=== PATIENT | female | born 1950 | race Caucasian/White ===

== ENCOUNTER 2017-07-18 17:08 | Emergency (ER) | payer OTHER ==
[~2017-07-18] VITALS: Ht 154.9 cm; Wt 105.4 kg
[~2017-07-18 17:08] MED LIST: ACET-1138 PO; ALBUAER19 INH; ATOR-22 PO; BIOT1TAB5 PO; CALC-20 PO; CARB25TA12 PO; CHOLCAP5 PO; CLB100 PEG; CYAN10002 IM; DICL1GEL12 TOP; DOCU100C31 PO; FERR325T51 PO; FURO-85 PO; IPRA0.037 NAE; LEVO50TA PO; META-38 PO; METO25TA56 PO; MULT-360; MULTCAP33 PO; POTA10TA30 PO; PRLSR20 PO; ROPI0.5T15 PO; VENL75CA PEG
[2017-07-18 17:13] VITALS: TEMP 36.6; Ht 154.9 cm; Wt 105.4 kg
[2017-07-18] MEDS ORDERED: FUROSEMIDE 40 MG/4 ML VIAL IV STA (18:02)
[2017-07-18] MEDS ORDERED: OXYCODONE/ACETAMINOPHEN 5-325 TAB PO ONE (18:15)
--- NOTE | 2017-07-18 18:23 | DIAGNOSTIC IMAGING REPORT ---
CHEST ONE VIEW PORTABLE CLINICAL HISTORY: Evaluate Fever/Sepsis COMPARISON STUDY: 12/01/2014 FINDINGS: Mild stable cardiomegaly. Diaphragms smooth. Lungs are clear. IMPRESSION: No acute process. Mild stable cardiomegaly. The above report was generated using voice recognition software. It may contain grammatical, syntax or spelling errors. Electronically signed by: Checo Brock M.D. 07/18/2017 6:22 PM Dictated Date/Time: 07/18/2017 6:21 PM
[2017-07-18 18:32] VITALS: O2SAT 96
[2017-07-18 18:38] LABS: BASO % 0.8 %; BASO ABS # 0.05 K/uL (0-0.2); EOS % 2.5 %; EOS ABS # 0.15 K/uL (0-0.5); HEMATOCRIT 42.6 % (37-47); HEMOGLOBIN 13.6 g/dL (12.0-16.0); IG# 0.02 K/uL (0.00-0.02); LYMPH % 28.7 %; LYMPH ABS # 1.72 K/uL (1.2-3.4); MEAN CELL VOLUME 98.8 fL (80-100); MEAN CORPUSCULAR HEMOGLOBIN 31.6 pg (25-34); MEAN CORPUSCULAR HGB CONC 31.9 g/dl (32-36); MEAN PLATELET VOLUME 10.2 fL (7.4-10.4); MONO % 11.8 %; MONO ABS # 0.71 K/uL (0.11-0.59); NEUT % 55.9 %; NEUT ABS # 3.35 K/uL (1.4-6.5); PLATELET COUNT 265 K/uL (130-400); RED CELL DISTRIBUTION WIDTH CV 13.7 % (11.5-14.5); RED CELL DISTRIBUTION WIDTH SD 49.3 fL (36.4-46.3)
[2017-07-18 18:57] LABS: ALBUMIN 3.6 gm/dl (3.4-5.0); ALT/SGPT 17 U/L (12-78); AST/SGOT 15 U/L (15-37); BLOOD UREA NITROGEN 21 mg/dl (7-18); CARBON DIOXIDE 24 mmol/L (21-32); CREATININE 0.78 mg/dl (0.60-1.20); GLUCOSE 90 mg/dl (70-99); LIPASE 178 U/L (73-393); SODIUM 140 mmol/L (136-145)
[2017-07-18 19:02] LABS: ALKALINE PHOSPHATASE 112 U/L (45-117); CKMB 2.2 ng/ml (0.5-3.6); TOTAL PROTEIN 7.2 gm/dl (6.4-8.2)
[2017-07-18] MEDS ORDERED: CHOL20009 PO (19:20)
[2017-07-18] MEDS ORDERED: PEDICHW50 PO (19:20)
[2017-07-18] MEDS ORDERED: MULTCAP33 PO (19:20)
[2017-07-18] MEDS ORDERED: TRMCR130WC TOP (19:20)
[2017-07-18] MEDS ORDERED: OMEG10007 PO (19:20)
[2017-07-18] MEDS ORDERED: MAGN500T4 PO (19:20)
[2017-07-18] MEDS ORDERED: IPRA0.03 NAE (19:20)
[2017-07-18] MEDS ORDERED: OYST500T47 PO (19:20)
[2017-07-18] MEDS ORDERED: IBAN150T PO (19:20)
[2017-07-18] MEDS ORDERED: DICL1GEL12 TOP (19:20)
[2017-07-18] MEDS ORDERED: FLUT0.15 INH (19:20)
[2017-07-18] MEDS ORDERED: SENN-65 PO (19:20)
[2017-07-18] MEDS ORDERED: CYAN100048 PO (19:20)
[2017-07-18] MEDS ORDERED: ERGO500037 PO (19:20)
[2017-07-18 20:13] VITALS: BP 129/80; PULSE 81; O2SAT 98
--- NOTE | 2017-07-18 20:26 | EMERGENCY ROOM VISIT NOTE ---
History Report prepared by Sathya: Hernan Oates Under the Supervision of: Miladys WaltersO. First contact with patient: 17:54 Chief Complaint: CARDIAC ASSESSMENT Stated Complaint: SOB, TIGHTNESS IN CHEST, SWELLING IN LEGS, CARD HX Nursing Triage Summary: LE swelling , chest pain and fatigue History of Present Illness The patient is a 67 year old female with a history of a thoracic aortic aneurysm who presents to the Emergency Room with complaints of worsening chest tightness on exertion that started around a couple months ago. She states that she has been excessively fatigued, and she has been getting short of breath on exertion. She notes that she has been getting intermittent right arm pain. The patient adds that she started with bilateral feet swelling, but the swelling is slowly moving up to the rest of both of her legs. She says that she has not been able to do much recently because of her exertional symptoms. She states that she has no history of chronic kidney issues. Source of History: patient Onset: Last few months Position: chest Quality: other (tightness) Timing: worsening Modifying Factors (Worsening): exertion Associated Symptoms: + SOB, + fatigue Note: Associated symptoms: Worsening fatigue, lower extremity swelling. Right arm pain. Review of Systems See HPI for pertinent positives & negatives. A total of 10 systems reviewed and were otherwise negative. Past Medical & Surgical Medical Problems: (1) Cholecystectomy (2) Gastric Bypass (3) Hypertension Nos (4) Obesity (5) Pancreatitis (6) Thoraco abdominal aneurysm Surgical Problems: (1) S/P hysterectomy Family History CVA Cancer Diabetes mellitus Heart disease Hypertension Kidney disease Kidney stones Lung disease TIAs GRANDMOTHER MOTHER Social History Smoking Status: Never Smoker Alcohol Use: occasionally Marital Status: single Housing Status: lives alone Occupation Status: employed Current/Historical Medications Scheduled Albuterol Inhaler (Ventolin Inhaler), 2 PUFFS INH TID Atorvastatin (Lipitor), 20 MG PO DAILY Biotin (Biotin), 500 MCG PO BID Carbidopa/Levodopa (Sinemet 25MG/100MG), 1 TAB PO QID Cholecalciferol (Vitamin D), 2,000 UNITS PO DAILY Cyanocobalamin (Vitamin B-12), 1,000 MCG PO MONTHLY Diclofenac Sodium (Topical) (Voltaren 1% Top Gel), 1 APPLN TOP QID Ergocalciferol (Vitamin D 72744 Unit), 1 CAP PO WK Fish Oil ([place]-3), 1 CAP PO BID Fluticasone Propionate (Nasal) (Flonase Allergy Relief), 2 PUFF INH BID Home O2 Therapy (Oxygen), 2 LITERS NA UD Ibandronate Sodium (Boniva), 150 MG PO MONTHLY Levothyroxine Sodium (Synthroid), 50 MCG PO QAM Magnesium Oxide (Mg Supplement (Magnesium), 500 MG PO DAILY Metaxalone (Skelaxin), 800 MG PO QID Metoprolol Tartrate (Lopressor) (Lopressor), 25 MG PO BID Multiple Vitamins W/ Minerals (Preservision Areds), 1 CAP PO BID Omeprazole (Prilosec), 20 MG PO DAILY Oyster Shell (Calcium), 500 MG PO BID Pediatric Multiple Vitamin W/ (Flintstones Chewable), 1 TAB PO QAM Ropinirole (Requip), 0.5 MG PO TID Ropinirole (Requip), 0.5-2 MG PO HS Senna/Docusate Sod (Senokot S), 1 TAB PO BID Triamcinolone Acet (Aristocort 0.1%), 1 APPLN TOP BID Scheduled PRN Ipratropium [place] (Nasal) (Ipratropium [place]), 1 SPRAY ELYSE QID PRN for Nasal Congestion Ondansetron Hcl (Zofran), 4 MG PO Q6H PRN for Nausea Allergies Coded Allergies: Buspirone (Verified Allergy, Severe, NEURO COMPLICATIONS, 07/18/17) Lisinopril (Verified Allergy, Intermediate, cough, 01/22/16) Ammonia (Verified Allergy, Unknown, SWELLING, 01/22/16) Duloxetine (Verified Allergy, Unknown, RASH ITCHING, 01/22/16) Dust (Verified Allergy, Unknown, ROACHES,DUST MITES-CLOGGED UP SINUSES-CAN 'T BREATHE, 01/22/16) NSAIDs (Verified Allergy, Unknown, not supposed to use-S/P GASTRIC BYPASS , 01/22/16) Venlafaxine (Verified Allergy, Unknown, AFFECTS LEGS, 07/18/17) Diphenhydramine (Verified Adverse Reaction, Unknown, RESTLESS LEGS, ) Physical Exam Vital Signs Date Time Temp Pulse Resp B/P (MAP) Pulse Ox O2 Delivery O2 Flow Rate FiO2 07/18/17 20:13 81 16 129/80 98 Room Air 07/18/17 18:36 65 16 144/107 100 Room Air 07/18/17 18:32 96 Room Air 07/18/17 18:32 96 Room Air 07/18/17 18:30 63 07/18/17 17:15 Room Air 07/18/17 17:13 36.6 71 16 167/74 96 Room Air Physical Exam CONSTITUTIONAL/VITAL SIGNS: Reviewed / noted above. GENERAL: Non-toxic in appearance. INTEGUMENTARY: Warm, dry, and [place]. HEAD: Normocephalic. EYES: without scleral icterus or trauma. ENT/OROPHARYNX: clear and moist. LYMPHADENOPATHY/NECK: Is supple without lymphadenopathy or meningismus. RESPIRATORY: Lungs clear and equal. CARDIOVASCULAR: Regular rate and rhythm. GI/ABDOMEN: Soft and nontender. No organomegaly or pulsatile mass. No rebound or guarding. Normal bowel sounds. EXTREMITIES: Bilateral lower extremity edema. BACK: No CVA tenderness. NEUROLOGICAL: Intact without focal deficits. PSYCHIATRIC: normal affect. MUSCULOSKELETAL: Normally developed with good muscle tone. Medical Decision & Procedures ER Provider Diagnostic Interpretation: X ray results and stated below per my interpretation and radiology interpretation. CHEST ONE VIEW PORTABLE CLINICAL HISTORY: Evaluate Fever/Sepsis COMPARISON STUDY: 12/01/2014 FINDINGS: Mild stable cardiomegaly. Diaphragms smooth. Lungs are clear. IMPRESSION: No acute process. Mild stable cardiomegaly. The above report was generated using voice recognition software. It may contain grammatical, syntax or spelling errors. Electronically signed by: Checo Brock M.D. 07/18/2017 6:22 PM Dictated Date/Time: 07/18/2017 6:21 PM Laboratory Results 07/18/17 18:30 Red Blood Count 4.31, Mean Corpuscular Volume 98.8, Mean Corpuscular Hemoglobin 31.6, Mean Corpuscular Hemoglobin Concent 31.9, Mean Platelet Volume 10.2, Neutrophils (%) (Auto) 55.9, Lymphocytes (%) (Auto) 28.7, Monocytes (%) (Auto) 11.8, Eosinophils (%) (Auto) 2.5, Basophils (%) (Auto) 0.8, Neutrophils # (Auto ) 3.35, Lymphocytes # (Auto) 1.72, Monocytes # (Auto) 0.71, Eosinophils # (Auto ) 0.15, Basophils # (Auto) 0.05 07/18/17 18:30 Test 07/18/17 18:30 White Blood Count 6.00 K/uL (4.8-10.8) Red Blood Count 4.31 M/uL (4.2-5.4) Hemoglobin 13.6 g/dL (12.0-16.0) Hematocrit 42.6 % (37-47) Mean Corpuscular Volume 98.8 fL (80-100) Mean Corpuscular Hemoglobin 31.6 pg (25-34) Mean Corpuscular Hemoglobin Concent 31.9 g/dl (32-36) Platelet Count 265 K/uL (130-400) Mean Platelet Volume 10.2 fL (7.4-10.4) Neutrophils (%) (Auto) 55.9 % Lymphocytes (%) (Auto) 28.7 % Monocytes (%) (Auto) 11.8 % Eosinophils (%) (Auto) 2.5 % Basophils (%) (Auto) 0.8 % Neutrophils # (Auto) 3.35 K/uL (1.4-6.5) Lymphocytes # (Auto) 1.72 K/uL (1.2-3.4) Monocytes # (Auto) 0.71 K/uL (0.11-0.59) Eosinophils # (Auto) 0.15 K/uL (0-0.5) Basophils # (Auto) 0.05 K/uL (0-0.2) RDW Standard Deviation 49.3 fL (36.4-46.3) RDW Coefficient of Variation 13.7 % (11.5-14.5) Immature Granulocyte % (Auto) 0.3 % Immature Granulocyte # (Auto) 0.02 K/uL (0.00-0.02) Anion Gap 5.0 mmol/L (3-11) Est Creatinine Clear Calc Drug Dose 78.2 ml/min Estimated GFR () 91.2 Estimated GFR (Non- 78.7 BUN/Creatinine Ratio 27.3 (10-20) Calcium Level 9.0 mg/dl (8.5-10.1) Total Bilirubin 0.2 mg/dl (0.2-1) Direct Bilirubin < 0.1 mg/dl (0-0.2) Aspartate Amino Transf (AST/SGOT) 15 U/L (15-37) Alanine Aminotransferase (ALT/SGPT) 17 U/L (12-78) Alkaline Phosphatase 112 U/L (45-117) Total Creatine Kinase 74 U/L (26-192) Creatine Kinase MB 2.2 ng/ml (0.5-3.6) Creatine Kinase MB Ratio 3.0 (0-3.0) Troponin I < 0.015 ng/ml (0-0.045) Total Protein 7.2 gm/dl (6.4-8.2) Albumin 3.6 gm/dl (3.4-5.0) Lipase 178 U/L (73-393) Laboratory results as stated above per my review. Medications Administered Medications (Trade) Dose Ordered Sig/Caesar Route Start Time Stop Time Status Last Admin Dose Admin Furosemide (Lasix Inj) 40 mg NOW STAT IV 07/18/17 18:02 07/18/17 18:03 DC 07/18/17 18:02 40 MG Oxycodone/ Acetaminophen (Percocet 5-325mg Tab) 1 tab NOW ONCE PO 07/18/17 18:15 07/18/17 18:17 DC 07/18/17 18:15 1 TAB ECG Indication: SOB/dyspnea Rate (beats per minute): 67 Rhythm: normal sinus Findings: no ectopy, other (no acute injury) ED Course 1755: Previous medical records were reviewed. The patient was evaluated in room C1B. A complete history and physical examination was performed. 1801: Ordered Lasix Inj 40 mg IV. 1814: Ordered Percocet 5-325mg Tab 1 tab PO. 2026: On reevaluation, the patient is resting comfortably. I discussed the results and findings with the patient. She verbalized agreement of the treatment plan. She was discharged home. Medical Decision The differential considered includes acute myocardial infarction, acute coronary syndrome, myocarditis, pericarditis, pericardial effusions /tamponad, esophageal perforation, thoracic aortic dissection, pulmonary embolism, pneumonia, pneumothorax, pancreatitis, shingles, acute cholecystitis, perforated abdominal viscus. This is a 67-year-old female who presents to the ED with a chief complaint of excessive tiredness over the past several months. She has also had some increased leg swelling. Her doctor took her off of Lasix as it was not felt to be necessary. The patient has chronic lower extremity edema. She has been using MABLE hose but her swelling increases throughout the day and these are somewhat painful. The patient reports some shortness of breath with exertion. Denies any chest pains. She also reports some occasional pains in her arms. Her initial blood pressure was elevated. This improved. EKG shows a normal sinus rhythm. CBC and complete metabolic panel normal, BUN is 21 and a troponin was negative. The patient was treated with IV Lasix. She diuresed modestly. She was feeling better. She was felt to be stable for discharge and outpatient follow-up. Medication Reconcilliation Current Medication List: was personally reviewed by me Blood Pressure Screening Patient's blood pressure: Elevated blood pressure Blood pressure disposition: Elevated BP felt to be situational Impression Primary Impression: Lower extremity edema Additional Impression: Fatigue Scribe Attestation The scribe's documentation has been prepared under my direction and personally reviewed by me in its entirety. I confirm that the note above accurately reflects all work, treatment, procedures, and medical decision making performed by me. Departure Information Dispostion Home / Self-Care Referrals No Doctor, Assigned (PCP) Patient Instructions ED Leg Swelling Bilateral, My [facility] Additional Instructions Follow-up with your doctor for further care and evaluation in 1-2 days. Return to the emergency department for worsening or new symptoms or any concerns. You have been examined and treated today on an emergency basis only. This is not a substitute for, or an effort to provide, complete comprehensive medical care. It is impossible to recognize and treat all injuries or illnesses in a single emergency department visit. It is therefore important that you follow up closely with your doctor. Call as soon as possible for an appointment. Problem Qualifiers
[2017-07-18] MEDS ORDERED: ONDA4TAB65 PO (20:32)
[2017-07-18] MEDS ORDERED: OXGN (20:36)
== END 2017-07-18 20:29 | disposition home or self-care (01) ==
LOC: C.EDB 17:10 → C.EDC 20:29
DX: R60.0 Localized edema (principal); R53.83 Other fatigue; Z90.49 Acquired absence of other specified parts of digestive tract; Z98.84 Bariatric surgery status; I10 Essential (primary) hypertension; E66.9 Obesity, unspecified; Z90.710 Acquired absence of both cervix and uterus; Z68.41 Body mass index [BMI] 40.0-44.9, adult; Z82.3 Family history of stroke; Z80.9 Family history of malignant neoplasm, unspecified; Z83.3 Family history of diabetes mellitus; Z82.49 Family history of ischemic heart disease and other diseases of the circulatory system; Z84.1 Family history of disorders of kidney and ureter; Z79.899 Other long term (current) drug therapy

== ENCOUNTER 2017-07-29 16:16 | Inpatient (IN) | payer OTHER ==
[~2017-07-29] VITALS: Ht 154.9 cm; Wt 101.8 kg
[~2017-07-29 16:16] MED LIST changes: -ACET-1138 PO; -CALC-20 PO; +CHOL20009 PO; -CHOLCAP5 PO; -CLB100 PEG; -CYAN10002 IM; +CYAN100048 PO; -DOCU100C31 PO; +ERGO500037 PO; -FERR325T51 PO; +FLUT0.15 INH; -FURO-85 PO; +IBAN150T PO; +IPRA0.03 NAE; -IPRA0.037 NAE; +MAGN500T4 PO; -MULT-360; +OMEG10007 PO; +ONDA4TAB65 PO; +OXGN; +OYST500T47 PO; +PEDICHW50 PO; -POTA10TA30 PO; +SENN-65 PO; +TRMCR130WC TOP; -VENL75CA PEG
--- NOTE | 2017-07-29 16:45 | EMERGENCY ROOM VISIT NOTE ---
History Report prepared by Sathya: Temitope Simons Under the Supervision of: Dr. Anahi Gonzalez D.O. First contact with patient: 16:26 Chief Complaint: CARDIAC ASSESSMENT Stated Complaint: TIGHTNESS IN CHEST History of Present Illness The patient is a 67 year old female who presents to the Emergency Room with complaints of intermittent chest tightness beginning this morning. She states her chest tightness would last for about 45 minutes at a time. She states she was reorganizing her book shelf when her pain began. As she continued to reorganize her book shelf, she also started to get fatigued and short of breath. The patient states her finger tips started to get numb and spasm and her right arm started to ache. Presently, the patient only is having right arm aching. The patient states she went to see Dr. Arredondo-Cardiology last week because she had chest tightness. She states he told her aneurysm may require surgery soon. She states every 4 [address] a CT scan for her aneurysm. She reports Dr. Arredondo told her she may have a blockage. She states she was told to come to the ED if her pain worsened. She states she was diagnosed with diastolic dysfunction last time she saw Dr. Arredondo. The patient had a nuclear stress test and a CT two days ago. She is unsure of the results of the stress test and her CT. She denies any recent medication changes. The patient denies any history of heart attack or stents. The patient is on Lasix 40 mg twice a day. Pt denies headache, change in vision, fevers, increased leg swelling, nausea, vomiting, diarrhea, pain with urination, and melena. Source of History: patient Onset: this morning Position: chest Quality: other (tightness) Timing: intermittent Associated Symptoms: + chest pain, + SOB, + fatigue, + numbness, No fevers, No chills, No headache, No nausea, No vomiting, No urinary symptoms Review of Systems See HPI for pertinent positives & negatives. A total of 10 systems reviewed and were otherwise negative. Past Medical & Surgical Medical Problems: (1) Cholecystectomy (2) ISAC (generalized anxiety disorder) (3) Gastric Bypass (4) Hypertension Nos (5) Obesity (6) Pancreatitis (7) Right shoulder pain (8) Thoraco abdominal aneurysm Surgical Problems: (1) S/P hysterectomy Family History CVA Cancer Diabetes mellitus Heart disease Hypertension Kidney disease Kidney stones Lung disease TIAs GRANDMOTHER MOTHER Social History Smoking Status: Never Smoker Alcohol Use: occasionally Marital Status: single Housing Status: lives alone Occupation Status: employed Current/Historical Medications Scheduled Albuterol Inhaler (Ventolin Inhaler), 2 PUFFS INH TID Atorvastatin (Lipitor), 20 MG PO DAILY Biotin (Biotin), 500 MCG PO BID Carbidopa/Levodopa (Sinemet 25MG/100MG), 1 TAB PO QID Cholecalciferol (Vitamin D), 2,000 UNITS PO DAILY Cyanocobalamin (Vitamin B-12), 1,000 MCG PO MONTHLY Diclofenac Sodium (Topical) (Voltaren 1% Top Gel), 1 APPLN TOP QID Ergocalciferol (Vitamin D 10679 Unit), 1 CAP PO WK Fish Oil ([place]-3), 1 CAP PO BID Fluticasone Propionate (Flovent Hfa), 2 PUFFS INH BID Fluticasone Propionate (Nasal) (Flonase Allergy Relief), 2 PUFF INH BID Furosemide (Lasix), 40 MG PO QAM Home O2 Therapy (Oxygen), 2 LITERS NA UD Ibandronate Sodium (Boniva), 150 MG PO MONTHLY Levothyroxine Sodium (Synthroid), 50 MCG PO QAM Magnesium Oxide (Mg Supplement (Magnesium), 500 MG PO DAILY Metaxalone (Skelaxin), 800 MG PO QID Metoprolol Tartrate (Lopressor) (Lopressor), 25 MG PO BID Multiple Vitamins W/ Minerals (Preservision Areds), 1 CAP PO BID Omeprazole (Prilosec), 20 MG PO DAILY Oyster Shell (Calcium), 500 MG PO BID Pediatric Multiple Vitamin W/ (Flintstones Chewable), 1 TAB PO QAM Potassium Chloride (Klor-Con M20), 20 MEQ PO DAILY Ropinirole (Requip), 0.5 MG PO TID Ropinirole (Requip), 0.5-2 MG PO HS Senna/Docusate Sod (Senokot S), 1 TAB PO BID Triamcinolone Acet (Aristocort 0.1%), 1 APPLN TOP BID Scheduled PRN Furosemide (Lasix), 20 MG PO HS PRN for EDEMA Ipratropium Skillman (Nasal) (Ipratropium Skillman), 1 SPRAY ELYSE QID PRN for Nasal Congestion Lorazepam (Ativan), 0.5 MG PO DAILY PRN for ANXIETY Ondansetron Hcl (Zofran), 4 MG PO Q6H PRN for Nausea Allergies Coded Allergies: Buspirone (Verified Allergy, Severe, NEURO COMPLICATIONS, 07/29/17) Lisinopril (Verified Allergy, Intermediate, cough, 07/29/17) Ammonia (Verified Allergy, Unknown, SWELLING, 07/29/17) Duloxetine (Verified Allergy, Unknown, RASH ITCHING, 07/29/17) Dust (Verified Allergy, Unknown, ROACHES,DUST MITES-CLOGGED UP SINUSES-CAN 'T BREATHE, 07/29/17) NSAIDs (Verified Allergy, Unknown, not supposed to use-S/P GASTRIC BYPASS , 07/29/17) Venlafaxine (Verified Allergy, Unknown, AFFECTS LEGS, 07/29/17) Diphenhydramine (Verified Adverse Reaction, Unknown, RESTLESS LEGS, ) Physical Exam Vital Signs Date Time Temp Pulse Resp B/P (MAP) Pulse Ox O2 Delivery O2 Flow Rate FiO2 07/29/17 21:46 70 07/29/17 21:01 160/99 07/29/17 20:51 71 17 93 07/29/17 20:49 126/70 07/29/17 18:53 68 18 132/84 97 Room Air 07/29/17 18:46 66 11 98 07/29/17 18:42 132/84 07/29/17 18:16 69 19 96 07/29/17 18:12 127/84 07/29/17 18:10 66 18 127/84 97 Room Air 07/29/17 17:46 71 17 98 07/29/17 17:38 69 07/29/17 17:16 97 Room Air 07/29/17 16:20 36.7 82 20 150/91 95 Room Air Physical Exam GENERAL: alert, obese, anxious appearing, well nourished, no distress, non- toxic EYE EXAM: normal conjunctiva, PERRL and EOM's grossly intact OROPHARYNX: no exudate, no erythema, lips, buccal mucosa, and tongue normal and mucous membranes are moist NECK: supple, no nuchal rigidity, no adenopathy, non-tender LUNGS: Clear to auscultation. Normal chest wall mechanics, no w/r/r HEART: no murmurs, S1 normal and S2 normal, some pain reproducible along left chest ABDOMEN: abdomen soft, non-tender, normo-active bowel sounds, no masses, no rebound or guarding. BACK: Back is symmetrical on inspection and there is no deformity, no midline tenderness, no CVA tenderness. SKIN: no rashes and no bruising UPPER EXTREMITIES: upper extremities are grossly normal. LOWER EXTREMITIES: No pitting edema. NEURO EXAM: Normal sensorium, cranial nerves II-XII grossly intact, normal speech, no gross weakness of arms, no gross weakness of legs. Medical Decision & Procedures ER Provider Diagnostic Interpretation: Radiology results have been interpreted by the radiologist and reviewed by me. CHEST ONE VIEW PORTABLE FINDINGS: The cardiac silhouette is again moderately enlarged. Atherosclerosis of the aorta. There is no pneumothorax, pleural effusion, focal airspace consolidation or overt pulmonary edema. The bones of the chest appear grossly intact. IMPRESSION: Cardiomegaly without acute process. The above report was generated using voice recognition software. It may contain grammatical, syntax or spelling errors. Electronically signed by: Alexx Foster M.D. (CHEST FOR PE) ANGIO WITH FINDINGS: Mild increase in aneurysmal dilatation a sending thoracic aorta. Maximum dimension currently is 5.1 cm increased from the prior study of 4.8 cm. There is no evidence for dissection. Moderate generalized prominence of the central pulmonary vasculature which may indicate a component of pulmonary arterial hypertension. The pulmonary vessels enhance appropriately, however with no significant filling defect. Lungs are clear. There are no infiltrates. Has been a prior gastroplasty area in IMPRESSION: 1. No evidence for pulmonary embolus. 2. Lungs are clear. 3. Prior gastric bypass. 4. Slight increase in diameter of the aneurysm of the a sending thoracic aorta at 5.1 cm, increased from the prior study of 4.8 cm. No evidence for dissection. 5. Developing prominence the pulmonary arterial vasculature centrally suggesting developing components of pulmonary arterial hypertension. The above report was generated using voice recognition software. It may contain grammatical, syntax or spelling errors. Electronically signed by: Checo Brock M.D. Laboratory Results Test 07/29/17 17:39 Prothrombin Time 9.5 SECONDS (9.0-12.0) Prothromb Time International Ratio 0.9 (0.9-1.1) D-Dimer 650 ug/L FEU (0-500) Total Bilirubin 0.3 mg/dl (0.2-1) Aspartate Amino Transf (AST/SGOT) 15 U/L (15-37) Alanine Aminotransferase (ALT/SGPT) 10 U/L (12-78) Alkaline Phosphatase 81 U/L (45-117) Pro-B-Type Natriuretic Peptide 169 pg/ml (0-900) Total Protein 6.7 gm/dl (6.4-8.2) Albumin 3.4 gm/dl (3.4-5.0) Globulin 3.3 gm/dl (2.5-4.0) Albumin/Globulin Ratio 1.0 (0.9-2) Lipase 157 U/L (73-393) Laboratory results per my review. Medications Administered Medications (Trade) Dose Ordered Sig/Caesar Route Start Time Stop Time Status Last Admin Dose Admin Nitroglycerin (Nitroglycerin 2% Oint) 1 inch NOW ONCE EXT 07/29/17 18:30 07/29/17 18:31 DC 07/29/17 18:38 1 INCH Aspirin (Ecotrin Tab) 325 mg NOW STAT PO 07/29/17 18:25 07/29/17 18:26 DC 07/29/17 18:38 325 MG Sodium Chloride 1,000 ml @ 125 mls/hr Q8H STAT IV 07/29/17 18:38 07/29/17 23:13 DC 07/29/17 20:47 125 MLS/HR Fentanyl Citrate (Fentanyl Inj) 50 mcg NOW STAT IV 07/29/17 21:06 07/29/17 21:07 DC 07/29/17 21:31 50 MCG Acetaminophen (Tylenol Tab) 650 mg Q4H PRN PO 07/29/17 22:00 07/30/17 13:06 DC 07/30/17 01:13 650 MG Nitroglycerin (Nitrostat Tab) 0.4 mg UD PRN SL 07/29/17 22:00 08/28/17 21:59 07/30/17 04:42 0.4 MG Morphine Sulfate (MoRPHine SULFATE INJ) 2 mg Q30M PRN IV 07/29/17 22:00 08/12/17 21:59 07/30/17 11:35 2 MG Ondansetron HCl (Zofran Tab) 4 mg Q6H PRN PO 07/29/17 22:00 08/28/17 21:59 07/30/17 14:22 4 MG ECG Indication: chest pain Rate (beats per minute): 67 Rhythm: sinus rhythm Findings: T-wave inversion (lead 3), no acute ischemic change, other (normal axis, normal intervals, moderate baseline artifact ) Change: EKG interpreted by me. ED Course 1627: The patient was evaluated in room C10. A complete history and physical exam was performed. 1654: I reviewed the patient's case with Dr. Patrick. He recommends bringing the patient into the hospital for rule out of ACS. He reports the patient's nuclear stress test was negative. 1706: I updated the patient on the conversation I had with Dr. Arredondo. She is agreeable to the treatment plan. 5: Ordered Aspirin 325 mg PO. 1829: Ordered Nitroglycerin 1 inch EXT. 1837: Ordered Sodium Chloride 1000 ml @ 125 mls/hr IV. 2101: I reviewed the patient's case with Dr. Diaz. He will evaluate the patient for further management. 2104: I updated the patient on her test results. She is still complaining of some pain. 2105: Ordered Fentanyl Inj 50 mcg IV. Medical Decision Differential diagnosis: Etiologies such as cardiac ischemia, aortic dissection, pulmonary embolism, pneumonia, pneumothorax, musculoskeletal, infections, pericarditis, myocarditis , esophageal rupture, gastrointestinal, as well as others were entertained. Medication Reconcilliation Current Medication List: was personally reviewed by me Blood Pressure Screening Patient's blood pressure: Elevated blood pressure Blood pressure disposition: Referred to PCP (evaluated further by hospitalist) Consults Time Called: 1649 Consulting Physician: Dr. Patrick Returned Call: 1654 I reviewed the patient's case with Dr. Patrick. He recommends bringing the patient into the hospital for rule out of ACS. He reports the patient's nuclear stress test was negative. Additional Consults: Time Called: 2057 Consulted Physician: Dr. Diaz Returned Call: [phone] Additional Comments: I reviewed the patient's case with Dr. iDaz. He will evaluate the patient for further management. Impression Primary Impression: Chest pain Additional Impressions: Obesity Anxiety Hypertension Angina pectoris, unspecified Thoracic aortic aneurysm Scribe Attestation The scribe's documentation has been prepared under my direction and personally reviewed by me in its entirety. I confirm that the note above accurately reflects all work, treatment, procedures, and medical decision making performed by me. Departure Information Dispostion Being Evaluated By Hospitalist Prescriptions Lorazepam (ATIVAN) 0.5 Mg Tab 0.5 MG PO DAILY Y for ANXIETY, #30 TAB Prov: Abner Abrams MD 07/29/17 Fluticasone Propionate (Flovent Hfa) 120 Puffs/98742 Mcg Aero 2 PUFFS INH BID for 30 Days, #1 INHALER 2 Refills Prov: Abner Abrams MD 07/29/17 Furosemide (LASIX) 20 Mg Tab 20 MG PO HS Y for EDEMA, #30 TAB Prov: Abner Abrams MD 07/29/17 Potassium Chloride (Klor-Con M20) 20 Meq Tabcr 20 MEQ PO DAILY, #30 Prov: Abner Abrams MD 07/29/17 Referrals Will Arredondo DIvelisseOIvelisse (PCP) Patient Instructions My [facility] Health Problem Qualifiers Primary Impression: Chest pain Chest pain type: unspecified Qualified Codes: R07.9 - Chest pain, unspecified Additional Impressions: Hypertension Hypertension type: essential hypertension Qualified Codes: I10 - Essential ( primary) hypertension Thoracic aortic aneurysm Presence of rupture: without rupture Qualified Codes: I71.2 - Thoracic aortic aneurysm, without rupture
[2017-07-29] MEDS ORDERED: FRS/40 PO (16:58)
--- NOTE | 2017-07-29 17:26 | DIAGNOSTIC IMAGING REPORT ---
CHEST ONE VIEW PORTABLE HISTORY: 67 years-old Female chest pain acute atypical chest pain COMPARISON: Chest radiograph 07/18/2017 TECHNIQUE: Portable AP view of the chest FINDINGS: The cardiac silhouette is again moderately enlarged. Atherosclerosis of the aorta. There is no pneumothorax, pleural effusion, focal airspace consolidation or overt pulmonary edema. The bones of the chest appear grossly intact. IMPRESSION: Cardiomegaly without acute process. The above report was generated using voice recognition software. It may contain grammatical, syntax or spelling errors. Electronically signed by: Alexx Foster M.D. 07/29/2017 5:24 PM Dictated Date/Time: 07/29/2017 5:23 PM
[2017-07-29 17:51] LABS: BASO % 0.6 %; BASO ABS # 0.04 K/uL (0-0.2); EOS % 1.3 %; EOS ABS # 0.09 K/uL (0-0.5); HEMATOCRIT 40.5 % (37-47); IG# 0.01 K/uL (0.00-0.02); LYMPH % 25.4 %; LYMPH ABS # 1.75 K/uL (1.2-3.4); MEAN CELL VOLUME 98.3 fL (80-100); MEAN CORPUSCULAR HEMOGLOBIN 31.6 pg (25-34); MEAN CORPUSCULAR HGB CONC 32.1 g/dl (32-36); MEAN PLATELET VOLUME 10.3 fL (7.4-10.4); MONO % 9.9 %; MONO ABS # 0.68 K/uL (0.11-0.59); NEUT % 62.7 %; NEUT ABS # 4.33 K/uL (1.4-6.5); PLATELET COUNT 245 K/uL (130-400); RED CELL DISTRIBUTION WIDTH CV 13.3 % (11.5-14.5); RED CELL DISTRIBUTION WIDTH SD 47.7 fL (36.4-46.3)
[2017-07-29 18:06] LABS: ALBUMIN 3.4 gm/dl (3.4-5.0); ALT/SGPT 10 U/L (12-78); BLOOD UREA NITROGEN 36 mg/dl (7-18); CALCIUM 9.1 mg/dl (8.5-10.1); CARBON DIOXIDE 28 mmol/L (21-32); CREATININE 0.82 mg/dl (0.60-1.20); GLUCOSE 91 mg/dl (70-99); POTASSIUM 3.6 mmol/L (3.5-5.1); SODIUM 141 mmol/L (136-145)
[2017-07-29 18:11] LABS: ALKALINE PHOSPHATASE 81 U/L (45-117); AST/SGOT 15 U/L (15-37); TOTAL PROTEIN 6.7 gm/dl (6.4-8.2)
[2017-07-29 18:16] LABS: INR 0.9 (0.9-1.1)
[2017-07-29] MEDS ORDERED: ASPIRIN 325 MG ECTAB PO STA (18:25)
[2017-07-29] MEDS ORDERED: NITROGLYCERIN OINT 2% 1GM PACKET EXT ONE (18:30)
[2017-07-29] MEDS ORDERED: SODIUM CHLORIDE 0.9% 1000ML 1,000 ML IV STA (18:38)
[2017-07-29] MEDS ORDERED: OPTIRAY 320 IV PRN (18:45)
--- NOTE | 2017-07-29 20:44 | DIAGNOSTIC IMAGING REPORT ---
(CHEST FOR PE) ANGIO WITH CT DOSE: 626.74 mGy.cm HISTORY: Chest pain dyspnea TECHNIQUE: Multiaxial CT images of the chest were performed following the intravenous administration of contrast to evaluate the pulmonary arteries. Maximal intensity projection images were also obtained. A dose lowering technique was utilized adhering to the principles of ALARA. COMPARISON STUDY: 10/15/2014 FINDINGS: Mild increase in aneurysmal dilatation a sending thoracic aorta. Maximum dimension currently is 5.1 cm increased from the prior study of 4.8 cm. There is no evidence for dissection. Moderate generalized prominence of the central pulmonary vasculature which may indicate a component of pulmonary arterial hypertension. The pulmonary vessels enhance appropriately, however with no significant filling defect. Lungs are clear. There are no infiltrates. Has been a prior gastroplasty area in IMPRESSION: 1. No evidence for pulmonary embolus. 2. Lungs are clear. 3. Prior gastric bypass. 4. Slight increase in diameter of the aneurysm of the a sending thoracic aorta at 5.1 cm, increased from the prior study of 4.8 cm. No evidence for dissection. 5. Developing prominence the pulmonary arterial vasculature centrally suggesting developing components of pulmonary arterial hypertension. The above report was generated using voice recognition software. It may contain grammatical, syntax or spelling errors. Electronically signed by: Checo Brock M.D. 07/29/2017 8:43 PM Dictated Date/Time: 07/29/2017 8:35 PM
[2017-07-29] MEDS ORDERED: FENTANYL CITRATE INJ 50 MCG/1 ML 2 ML VIAL IV STA (21:06)
[2017-07-29] MEDS ORDERED: NITROGLYCERIN 0.4 MG SL PER TAB CHARGE SL PRN (22:00)
[2017-07-29] MEDS ORDERED: POLYETHYLENE (MIRALAX) 17 GM PACK PO PRN (22:00)
[2017-07-29] MEDS ORDERED: ONDANSETRON INJ 2 MG/ML 2 ML VIAL IV PRN (22:00)
[2017-07-29] MEDS ORDERED: ALUMINUM/MAGNESIUM/SIMETH (MAALOX MAX) 30 ML UDC PO PRN (22:00)
[2017-07-29] MEDS ORDERED: ACETAMINOPHEN 325 MG TAB PO PRN (22:00)
[2017-07-29] MEDS ORDERED: ONDANSETRON 4 MG TAB PO PRN (22:00)
[2017-07-29] MEDS ORDERED: FURO-85 PO (22:07)
[2017-07-29] MEDS ORDERED: MCRK20 PO (22:07)
[2017-07-29] MEDS ORDERED: LORA-741 PO (22:20)
[2017-07-29] MEDS ORDERED: FLVHFA110 INH (22:20)
[2017-07-29] MEDS ORDERED: LORAZEPAM 0.5 MG TAB PO PRN (22:30)
[2017-07-29 23:21] VITALS: BP 110/66; PULSE 79; TEMP 36.5; O2SAT 97; Ht 154.9 cm; Wt 101.8 kg
[2017-07-29] MEDS: CARBIDOPA/LEVODOPA 25/100MG TAB PO SCH (23:35)
[2017-07-29] MEDS: ROPINIROLE HCL 1 MG TAB PO SCH (23:36)
[2017-07-29] MEDS: METAXALONE 800 MG TAB PO SCH (23:36)
[2017-07-29] MEDS: METOPROLOL TARTRATE 25 MG TAB PO SCH (23:36)
[2017-07-30] VITALS (9 sets, daily range): BP systolic 96–132; BP diastolic 55–86; PULSE 55–69; TEMP 36.3–36.6; O2SAT 94–98
[2017-07-30] MEDS ORDERED: IV FLUIDS COMPLETED PRN (00:30)
--- NOTE | 2017-07-30 00:46 | HISTORY & PHYSICAL EXAMINATION ---
DATE OF ADMISSION: 07/29/2017 CHIEF COMPLAINT: Chest pain. HISTORY OF PRESENT ILLNESS: This 67-year-old female with past medical history significant for ascending aortic aneurysm, asthma, osteoporosis, restless leg syndrome, depression, fibromyalgia, hypothyroidism, hyperlipidemia, hypertension, history of gastric bypass surgery, intestinal malabsorption following gastrectomy, obstructive sleep apnea on CPAP, gastroparesis, , lower extremity edema, presents with chest pain. The patient is following closely with cardiology for ascending thoracic aortic aneurysm and she recently saw cardiology and she also having lower extremity edema for which she was started on Lasix. She was supposed to get CTA of the chest to see the size of the aneurysm and there is a plan for evaluation by CT surgery soon. She also recently had Lexiscan nuclear stress test which was unremarkable. The patient today at home while she was taking the books out from the shelf she noticed chest pain, about 7/10 in severity, radiating to her left arm. She got worried and came to the ER. She received nitro and fentanyl in the ER and the pain is improved but the chest pain still comes on and off. Whenever she gets chest pain, she gets short of breath and cough and currently she has some headaches, dizziness on and off. No blurred visions. No sore throat, no earaches. She says on and off she gets difficulty swallowing. She feels like food stuck in the middle of the chest and she has to drink water to pass it through. This is going on for some time. Denies any abdominal pain, no nausea, no vomiting. Normal bowel and bladder movements. No blood in the stool, no blood in the urine. No burning micturition. Appetite is okay. She has swelling of the lower extremity. ALLERGIES: AMMONIA, BUSPIRONE, DIPHENHYDRAMINE, DUST,DULOXETINE,LISINOPRIL, NSAIDS VENLAFAXINE. PAST MEDICAL HISTORY: As mentioned above. PAST SURGICAL HISTORY: Laparoscopic lysis of adhesions, right total knee arthroplasty, left total knee arthroplasty, colonoscopy with polypectomy, EGD with biopsy, gastric bypass surgery for obesity in 2000, cervical spine and lumbar spine steroid shots, knee arthroscopy with meniscectomy, partial hysterectomy, reduction of bowel obstruction, reduction of breast, tonsillectomy, cholecystectomy, umbilical hernia repair. MEDICATIONS: Currently the patient has potassium chloride 20 mEq 1 packet p.o. daily, Lasix 40 mg p.o. daily in the a.m. and 20 mg in p.m. p.r.n., carbidopa/levodopa 25/100 mg 1.5 tablet 4 times daily, levothyroxine 50 mcg p.o. daily, Flovent HFA 1-2 puffs b.i.d., Requip 0.5 mg p.o. q.i.d., Flonase 50 mcg 2 sprays into each nostril daily, atorvastatin 20 mg p.o. daily, Skelaxin 800 mg p.o. q.i.d., Zofran 4 mg p.o. every 6 hours p.r.n., Ativan 0.5 mg p.o. daily p.r.n., Lopressor 25 mg p.o. b.i.d., omeprazole 20 mg p.o. daily, vitamin D 50,000 units capsule once a week, Boniva 150 mg once a month, Senokot-S 1 tablet b.i.d., omega 3 capsules daily, pediatric multivitamins 1 tablet daily, magnesium 500 mg p.o. daily, ipratropium bromide nasal spray4 times a day, albuterol 2 puffs every 4 hours p.r.n., Tylenol 1000 mg p.o. q. 8 hours p.r.n., biotin 1000 mcg p.o. daily, oxygen 2 liters via nasal during all periods of sleep, PreserVision 1 capsule p.o. daily, vitamin B12 1000 mcg injection monthly. FAMILY HISTORY: Significant for father with alcoholism and smoking history. Mother had thyroid disorder, alcoholism, allergies, arthritis, asthma, blood disorder, diabetes, hypothyroidism, eye problems, gastrointestinal disorder, glaucoma, hypertension, emphysema, mental depression, obesity, smoking history, stroke. SOCIAL HISTORY: Single. No smoking history. Alcohol occasionally. No drug abuse. REVIEW OF SYMPTOMS: As per HPI. Rest of review of symptoms negative. PHYSICAL EXAMINATION: GENERAL: The patient is obese, not in distress. VITAL SIGNS: Temperature 36.7, pulse 70, respiratory rate 17, blood pressure 176/70, oxygen 92% on room air. HEENT: No pallor, no icterus. Pupils equal, round react to light. NECK: No JVD, no neck masses, no carotid bruits. CARDIOVASCULAR: S1, S2 heard, regular rate and rhythm, no murmur, no gallop. RESPIRATORY SYSTEM: Normal AP diameter. No accessory muscle use. No wheezing or crackles. ABDOMEN: Soft, bowel sounds present. Nontender. No distention. CENTRAL NERVOUS SYSTEM: Cranial nerves II-XII grossly intact. Nonfocal. EXTREMITIES: Lower extremity edema present. No erythema seen. LABORATORIES: WBC 6.9, hemoglobin 13, hematocrit 50.5, platelets 245. Sodium 141, potassium 3.6, chloride 106, CO2 28, BUN 36, creatinine 0.8, serum glucose 91, calcium 9.1, magnesium 2.5, total bilirubin 0.3, AST 15, ALT 10, alkaline phosphatase 81, troponin I less than 0.015. BNP 169. PT 9.5, INR 0.9. D-dimer 650. CT of the chest, no evidence for pulmonary embolism, lungs are clear, thyroid gastric bypass surgery, slight increase in diameter of the aneurysm of the ascending thoracic aorta at 1 cm increase from prior study of 4.8 cm. No evidence of dissection. EKG: Shows normal sinus rhythm with rate of 67. No significant change from previous EKG. ASSESSMENT AND PLAN: This is a 67-year-old female who presents with chest pain. 1. Chest pain. Recently had a Lexiscan nuclear stress test, which was negative. The patient has history of ascending thoracic aorta aneurysm which is slightly increased from 4.8cm to 5.1cm from previous study. There is a plan for CT surgery evaluation by cardiology. We will follow serial cardiac enzymes. Consult cardiology for further recommendations. We will keep N.p.o. after midnight. 2. History of asthma, mildly persistent. Continue Flovent and albuterol p.r.n. 3. History of hypertension. Continue Toprol-XL. We will follow the blood pressure. 4. Lower extremity edema on Lasix and potassium supplements. 5. History of obstructive sleep apnea on CPAP and oxygen at nighttime. 6. Restless leg syndrome on Requip. 7. Depression and fibromyalgia, currently not on any medication. Ativan p.r.n. anxiety. 8. Hyperlipidemia, on statin. 9. Hypothyroidism, on Synthroid. 10. History of gastric bypass surgery, needs vitamin supplements. 11. Deep venous thrombosis prophylaxis, SCDs for now. 12. Disposition: Observation on tele floor. Expect to discharge home and follow with her family doctor and cardiology. Level 1 full code. MTDD
[2017-07-30] MEDS: MoRPHine SULFATE 2 MG/ML CARP IV PRN ×2 (05:07→11:35)
[2017-07-30] MEDS: LEVOTHYROXINE 50 MCG TAB PO SCH (05:23)
[2017-07-30 06:51] LABS: BASO % 0.7 %; BASO ABS # 0.04 K/uL (0-0.2); EOS % 1.4 %; EOS ABS # 0.08 K/uL (0-0.5); HEMATOCRIT 36.1 % (37-47); HEMOGLOBIN 11.3 g/dL (12.0-16.0); IG# 0.01 K/uL (0.00-0.02); LYMPH % 23.8 %; LYMPH ABS # 1.34 K/uL (1.2-3.4); MEAN CELL VOLUME 98.9 fL (80-100); MEAN CORPUSCULAR HGB CONC 31.3 g/dl (32-36); MEAN PLATELET VOLUME 10.3 fL (7.4-10.4); MONO % 8.3 %; MONO ABS # 0.47 K/uL (0.11-0.59); NEUT % 65.6 %; NEUT ABS # 3.69 K/uL (1.4-6.5); PLATELET COUNT 231 K/uL (130-400); RED CELL DISTRIBUTION WIDTH CV 13.1 % (11.5-14.5); RED CELL DISTRIBUTION WIDTH SD 47.7 fL (36.4-46.3); WHITE BLOOD COUNT 5.63 K/uL (4.8-10.8)
[2017-07-30 07:26] LABS: BLOOD UREA NITROGEN 33 mg/dl (7-18); CALCIUM 8.6 mg/dl (8.5-10.1); CARBON DIOXIDE 27 mmol/L (21-32); CREATININE 0.72 mg/dl (0.60-1.20); GLUCOSE 102 mg/dl (70-99); POTASSIUM 3.8 mmol/L (3.5-5.1); SODIUM 142 mmol/L (136-145)
[2017-07-30] MEDS ORDERED: BIOTIN 500 MCG PO SCH (09:00)
[2017-07-30] MEDS: FLUTICASONE PROPIONATE NA SPR 16 GM BTL NAE SCH ×2 (09:19→21:42)
[2017-07-30] MEDS: ALBUTEROL HFA 8 GM INHALER INH SCH ×3 (09:19→21:42)
[2017-07-30] MEDS: FLUTICASONE HFA 110MCG INHALER INH SCH ×2 (09:19→21:42)
[2017-07-30] MEDS: TRIAMCINOLONE ACET 0.1% CR 15 GM TUBE EXT SCH ×2 (09:19→21:00)
[2017-07-30] MEDS: FLINTSTONES COMPLETE CHEWABLE TAB PO SCH (09:20)
[2017-07-30] MEDS: OMEGA-3 (PURIFIED FISH OIL) 1 GM CAP PO SCH ×2 (09:20→21:47)
[2017-07-30] MEDS: FUROSEMIDE 40 MG TAB PO SCH (09:20)
[2017-07-30] MEDS: PANTOprazole SOD 40 MG TAB PO SCH (09:20)
[2017-07-30] MEDS: CARBIDOPA/LEVODOPA 25/100MG TAB PO SCH ×4 (09:20→21:47)
[2017-07-30] MEDS: METAXALONE 800 MG TAB PO SCH ×4 (09:20→21:43)
[2017-07-30] MEDS: DOCUSATE SODIUM/SENNA 50/8.6MG TAB PO SCH ×2 (09:20→21:46)
[2017-07-30] MEDS: MAGNESIUM OXIDE 400 MG TAB PO SCH (09:20)
[2017-07-30] MEDS: METOPROLOL TARTRATE 25 MG TAB PO SCH ×2 (09:20→21:46)
[2017-07-30] MEDS: ATORVASTATIN 20 MG TAB PO SCH (09:21)
[2017-07-30] MEDS: POTASSIUM CHLORIDE 20 MEQ TABCR PO SCH (09:21)
[2017-07-30] MEDS: ROPINIROLE HCL 1 MG TAB PO SCH ×3 (09:21→21:46)
[2017-07-30] MEDS: CHOLECALCIFEROL 1000 INTER.UNIT TAB PO SCH (09:21)
--- NOTE | 2017-07-30 13:44 | Progress Note ---
Medicine Progress Note Date & Time of Visit: Jul 30, 2017 at 12:52. Subjective 67 yoF presents with R arm numbness and pain after moving some books that was associated with some chest tightness. In the setting of known thoracic aneurysm , she was admitted and ruled out for ND and dissection. Overnight her pain persists but workup for those issues is negative at this time. -she is overwhelmed and tearful and although she is describing acute pain since yesterday, it appears that she has had chronic, possibly progressive pain. -she is speaking about providers telling her in the past she is depressed and although she doesn't deny this, she does admit to some poorly controlled anxiety. -her R arm pain and hand numbness is still present today. Chest tightness is resolved and seemed to come along with some leg pain (radicular?) that is being treated as outpatient, and some bronchitis that she admits to recently. Yesterday, she reported her R hand and arm hurting first and when she began to remember her promise to her Drainlayer to get checked out at the ER, she had the chest tightness, too which didn't resolve much after a two hour nap. Objective Last 8 Hrs Date Time Temp Pulse Resp B/P (MAP) Pulse Ox O2 Delivery O2 Flow Rate FiO2 07/30/17 12:08 36.6 59 16 100/69 (79) 97 Room Air 07/30/17 08:19 36.5 55 16 109/68 (82) 97 Room Air 07/30/17 08:00 Room Air Physical Exam: GEN: obese, in no acute distress but is tearful and emotional with flight of ideas, alert and appropriate HEENT: NC/AT, normal sclerae, MMM CARDIO: reg rate, S1/2 heard without m/g/r LUNGS: CTA bilaterally, no crackles, rales or wheezes, good diaphragmatic excursion ABD: soft, non-tender, non-distended, no rebound or guarding EXTREMITY: RP and DP palpable 2+ bilat, no LE swelling or edema, extremities are warm and well-perfused R shoulder: forward flexion, abduction not quite to 90 deg. She cannot perform overhead press and cannot perform internal or external maneuvers. Passive ROM is limited by pain even in her other shoulder and neck area. NEURO: CN 2-12 grossly intact, sensation intact throughout (even on ulnar hands bilaterally), Spurling's positive on R and caused worsening pain on R neck/ shoulder when performed on the L side. MUSC: 5/5 strength throughout, no focal deficits, C-spine ROM is reduced in all planes of motion but is symmetric. SKIN: warm and dry Laboratory Results: 07/30/17 06:30 Red Blood Count 3.65, Mean Corpuscular Volume 98.9, Mean Corpuscular Hemoglobin 31.0, Mean Corpuscular Hemoglobin Concent 31.3, Mean Platelet Volume 10.3, Neutrophils (%) (Auto) 65.6, Lymphocytes (%) (Auto) 23.8, Monocytes (%) (Auto) 8.3, Eosinophils (%) (Auto) 1.4, Basophils (%) (Auto) 0.7, Neutrophils # (Auto) 3.69, Lymphocytes # (Auto) 1.34, Monocytes # (Auto) 0.47, Eosinophils # (Auto) 0.08, Basophils # (Auto) 0.04 07/30/17 06:30 Test 07/29/17 17:39 07/30/17 06:30 Prothrombin Time 9.5 SECONDS (9.0-12.0) Prothromb Time International Ratio 0.9 (0.9-1.1) D-Dimer 650 ug/L FEU (0-500) Total Bilirubin 0.3 mg/dl (0.2-1) Aspartate Amino Transf (AST/SGOT) 15 U/L (15-37) Alanine Aminotransferase (ALT/SGPT) 10 U/L (12-78) Alkaline Phosphatase 81 U/L (45-117) Pro-B-Type Natriuretic Peptide 169 pg/ml (0-900) Total Protein 6.7 gm/dl (6.4-8.2) Albumin 3.4 gm/dl (3.4-5.0) Globulin 3.3 gm/dl (2.5-4.0) Albumin/Globulin Ratio 1.0 (0.9-2) Lipase 157 U/L (73-393) White Blood Count 5.63 K/uL (4.8-10.8) Red Blood Count 3.65 M/uL (4.2-5.4) Hemoglobin 11.3 g/dL (12.0-16.0) Hematocrit 36.1 % (37-47) Mean Corpuscular Volume 98.9 fL (80-100) Mean Corpuscular Hemoglobin 31.0 pg (25-34) Mean Corpuscular Hemoglobin Concent 31.3 g/dl (32-36) Platelet Count 231 K/uL (130-400) Mean Platelet Volume 10.3 fL (7.4-10.4) Neutrophils (%) (Auto) 65.6 % Lymphocytes (%) (Auto) 23.8 % Monocytes (%) (Auto) 8.3 % Eosinophils (%) (Auto) 1.4 % Basophils (%) (Auto) 0.7 % Neutrophils # (Auto) 3.69 K/uL (1.4-6.5) Lymphocytes # (Auto) 1.34 K/uL (1.2-3.4) Monocytes # (Auto) 0.47 K/uL (0.11-0.59) Eosinophils # (Auto) 0.08 K/uL (0-0.5) Basophils # (Auto) 0.04 K/uL (0-0.2) RDW Standard Deviation 47.7 fL (36.4-46.3) RDW Coefficient of Variation 13.1 % (11.5-14.5) Immature Granulocyte % (Auto) 0.2 % Immature Granulocyte # (Auto) 0.01 K/uL (0.00-0.02) Anion Gap 5.0 mmol/L (3-11) Est Creatinine Clear Calc Drug Dose 83.0 ml/min Estimated GFR () 100.4 Estimated GFR (Non- 86.7 BUN/Creatinine Ratio 45.6 (10-20) Calcium Level 8.6 mg/dl (8.5-10.1) Magnesium Level 2.4 mg/dl (1.8-2.4) Troponin I < 0.015 ng/ml (0-0.045) Hepatitis C Antibody Screen NEG (NEG) Last 24 Hours Test 07/29/17 17:39 07/30/17 06:30 White Blood Count 6.90 K/uL 5.63 K/uL Red Blood Count 4.12 M/uL 3.65 M/uL Hemoglobin 13.0 g/dL 11.3 g/dL Hematocrit 40.5 % 36.1 % Mean Corpuscular Volume 98.3 fL 98.9 fL Mean Corpuscular Hemoglobin 31.6 pg 31.0 pg Mean Corpuscular Hemoglobin Concent 32.1 g/dl 31.3 g/dl Platelet Count 245 K/uL 231 K/uL Mean Platelet Volume 10.3 fL 10.3 fL Neutrophils (%) (Auto) 62.7 % 65.6 % Lymphocytes (%) (Auto) 25.4 % 23.8 % Monocytes (%) (Auto) 9.9 % 8.3 % Eosinophils (%) (Auto) 1.3 % 1.4 % Basophils (%) (Auto) 0.6 % 0.7 % Neutrophils # (Auto) 4.33 K/uL 3.69 K/uL Lymphocytes # (Auto) 1.75 K/uL 1.34 K/uL Monocytes # (Auto) 0.68 K/uL 0.47 K/uL Eosinophils # (Auto) 0.09 K/uL 0.08 K/uL Basophils # (Auto) 0.04 K/uL 0.04 K/uL RDW Standard Deviation 47.7 fL 47.7 fL RDW Coefficient of Variation 13.3 % 13.1 % Immature Granulocyte % (Auto) 0.1 % 0.2 % Immature Granulocyte # (Auto) 0.01 K/uL 0.01 K/uL Prothrombin Time 9.5 SECONDS Prothromb Time International Ratio 0.9 D-Dimer 650 ug/L FEU Sodium Level 141 mmol/L 142 mmol/L Potassium Level 3.6 mmol/L 3.8 mmol/L Chloride Level 106 mmol/L 110 mmol/L Carbon Dioxide Level 28 mmol/L 27 mmol/L Anion Gap 7.0 mmol/L 5.0 mmol/L Blood Urea Nitrogen 36 mg/dl 33 mg/dl Creatinine 0.82 mg/dl 0.72 mg/dl Est Creatinine Clear Calc Drug Dose 73.4 ml/min 83.0 ml/min Estimated GFR () 85.8 100.4 Estimated GFR (Non- 74.0 86.7 BUN/Creatinine Ratio 43.7 45.6 Random Glucose 91 mg/dl 102 mg/dl Calcium Level 9.1 mg/dl 8.6 mg/dl Magnesium Level 2.5 mg/dl 2.4 mg/dl Total Bilirubin 0.3 mg/dl Aspartate Amino Transf (AST/SGOT) 15 U/L Alanine Aminotransferase (ALT/SGPT) 10 U/L Alkaline Phosphatase 81 U/L Troponin I < 0.015 ng/ml < 0.015 ng/ml Pro-B-Type Natriuretic Peptide 169 pg/ml Total Protein 6.7 gm/dl Albumin 3.4 gm/dl Globulin 3.3 gm/dl Albumin/Globulin Ratio 1.0 Lipase 157 U/L Hepatitis C Antibody Screen NEG Assessment & Plan 67 yoF presents with R arm numbness and pain after moving some books that was associated with some chest tightness. In the setting of known thoracic aneurysm , she was admitted and ruled out for ND and dissection. Overnight her pain persists but workup for those issues is negative at this time. 1. Chest tightness-resolved, serial cardiac enzymes are negative and EKG nonischemic. Recent Lexiscan nuclear test as outpatient was also normal. Ascending thoracic aortic aneurysm is slightly enlarged but CT reveals no dissection and she is hemodynamically stable. Consider transferring off telemetry. Apprec Cards recs. 2. R arm pain associated with bilateral ulnar hand numbness that is bilateral and multiple muscle spasms with minimal movement. Pt denies trauma to her neck or arm. She is on skelaxin and review of outpatient records reveals a R shoulder MRI in 2012 showing rotator cuff tendinopathy without tears. She also had a c-spine MRI in Aug 2015 revealing progressive degenerative changes resulting in spinal canal and neuroforaminal narrowing. Her exam is very limited by pain and ROM is poor. Spurlings appears to be positive. C-spine ROM appears to be symmetric. She reports that the pain is very limiting for her and is acute. She reports Tramadol does not help and she cannot take NSAIDs because of her h/o gastric bypass. She is fine with a trial of scheduled Tylenol. Valium was considered, especially in the setting of significant anxiety, but has an interaction with skelaxin. Awaiting consult for anxiety, Ortho eval of shoulder and neck. Will also consult PT/OT and Pain Management for assistance. (spoke with Dr. Mujica who recommends updating MRI c -spine-order placed) 3. Asthma-controlled, no wheezing or SOB. Cont Flovent and Albuterol PRN 4. HTN-controlled, cont Toprol XL 5. History of obstructive sleep apnea on CPAP and oxygen at nighttime. 6. Restless leg syndrome on Requip. 7. Depression and fibromyalgia, currently not on any medication. 8. Hypothyroidism, on Synthroid. 9. History of gastric bypass surgery DVT proph: Lovenox Full Code Dispo-pending multiple consults. Leny Breen DO [facility] Hospitalist Consultants: Robyn-Arnulfo Ignacio-Sil Ortho Psych PT/OT Current Inpatient Medications: Current Inpatient Medications Medications (Trade) Dose Ordered Sig/Caesar Route Start Time Stop Time Status Last Admin Dose Admin Ioversol (Optiray 320) 100 ml UD PRN IV 07/29/17 18:45 08/02/17 18:44 Acetaminophen (Tylenol Tab) 650 mg Q4H PRN PO 07/29/17 22:00 08/28/17 21:59 07/30/17 01:13 650 MG Al Hydrox/Mg Hydrox/Simethicone (Maalox Max Susp) 15 ml Q4H PRN PO 07/29/17 22:00 08/28/17 21:59 Ondansetron HCl (Zofran Inj) 4 mg Q6H PRN IV 07/29/17 22:00 08/28/17 21:59 Nitroglycerin (Nitrostat Tab) 0.4 mg UD PRN SL 07/29/17 22:00 08/28/17 21:59 07/30/17 04:42 0.4 MG Morphine Sulfate (MoRPHine SULFATE INJ) 2 mg Q30M PRN IV 07/29/17 22:00 08/12/17 21:59 07/30/17 11:35 2 MG Polyethylene (Miralax Powder Packet) 17 gm DAILY PRN PO 07/29/17 22:00 08/28/17 21:59 Albuterol (Ventolin Hfa Inhaler) 2 puffs TID INH 07/30/17 09:00 08/29/17 08:59 07/30/17 09:19 2 PUFFS Atorvastatin Calcium (Lipitor Tab) 20 mg DAILY PO 07/30/17 09:00 08/29/17 08:59 07/30/17 09:21 20 MG Carbidopa/Levodopa (Sinemet 25/ 100MG Tab) 1 tab QID PO 07/30/17 09:00 08/29/17 08:59 07/30/17 12:44 1 TAB Fish Oil ([place]-3 (Purified Fish Oil) Cap) 1 gm BID PO 07/30/17 09:00 08/29/17 08:59 07/30/17 09:20 1 GM Fluticasone Propionate (Flonase Nasal [place]) 2 sprays BID ELYSE 07/30/17 09:00 08/29/17 08:59 07/30/17 09:19 2 SPRAYS Furosemide (Lasix Tab) 40 mg QAM PO 07/30/17 09:00 08/29/17 08:59 07/30/17 09:20 40 MG Levothyroxine Sodium (Synthroid Tab) 50 mcg DAILYBB PO 07/30/17 06:00 08/29/17 05:59 Metaxalone (Skelaxin Tab) 800 mg QID PO 07/30/17 09:00 08/29/17 08:59 07/30/17 12:44 800 MG Metoprolol Tartrate (Lopressor Tab) 25 mg BID PO 07/30/17 09:00 08/29/17 08:59 07/30/17 09:20 25 MG Ondansetron HCl (Zofran Tab) 4 mg Q6H PRN PO 07/29/17 22:00 08/28/17 21:59 Multivitamins (Flintstones Complete Tab) 1 tab QAM PO 07/30/17 09:00 08/29/17 08:59 07/30/17 09:20 1 TAB Ropinirole HCl (Requip Tab) 0.5 mg TID PO 07/30/17 09:00 08/29/17 08:59 07/30/17 09:21 0.5 MG Ropinirole HCl (Requip Tab) 0.5 mg HS PO 07/30/17 21:00 08/29/17 20:59 Senna/Docusate Sodium (Senokot S Tab) 1 tab BID PO 07/30/17 09:00 08/29/17 08:59 07/30/17 09:20 1 TAB Triamcinolone Acetonide (Kenalog 0.1% Cream) 1 appln BID EXT 07/30/17 09:00 08/29/17 08:59 07/30/17 09:19 1 APPLN Cholecalciferol (Vitamin D Tab) 2,000 inter.unit DAILY PO 07/30/17 09:00 08/29/17 08:59 07/30/17 09:21 2,000 INTER.UNIT Miscellaneous Information (Order Awaiting Action) 1 ea QS N/A 07/30/17 08:00 08/29/17 07:59 Magnesium Oxide (Mag-Ox Tab) 800 mg QAM PO 07/30/17 09:00 08/29/17 08:59 07/30/17 09:20 800 MG Miscellaneous Information (Order Awaiting Action) 1 ea QS N/A 07/30/17 08:00 08/29/17 07:59 Pantoprazole Sodium (Protonix Tab) 40 mg QAM PO 07/30/17 09:00 08/29/17 08:59 07/30/17 09:20 40 MG Potassium Chloride (Klor-Con Tab) 20 meq DAILY PO 07/30/17 09:00 08/29/17 08:59 07/30/17 09:21 20 MEQ Fluticasone Propionate (Flovent Hfa 110MCG Inhaler) 2 puffs BID INH 07/30/17 09:00 08/29/17 08:59 07/30/17 09:19 2 PUFFS Lorazepam (Ativan Tab) 0.5 mg DAILY PRN PO 07/29/17 22:30 08/28/17 22:29 07/30/17 04:05 0.5 MG Miscellaneous (Iv Fluids Completed) 1 ea PRN PRN N/A 07/30/17 00:30 07/30/18 00:29
[2017-07-30] MEDS: ACETAMINOPHEN 500 MG TAB PO SCH ×2 (14:22→21:44)
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
[2017-07-30] MEDS ORDERED: ROPINIROLE HCL 1 MG TAB PO SCH (21:00)
[2017-07-30] MEDS: BusPIRone 15 MG TAB PO SCH (21:44)
--- NOTE | 2017-07-30 22:54 | Orthopedic Consultation ---
Orthopedic Consultation Date of Consultation: Jul 30, 2017. Attending Physician: Leny Breen DO Reason for Consultation: Right shoulder pain History of Present Illness Patient seen sitting in bed, tearful, complains of worsening right upper extremity pain, acute on chronic in nature. Reports lifting an object recently with her right arm and subsequently developing worsening of her typical symptoms , which include numbness to her 4th and 5th digits bilaterally, radiating pain down her arm into her hand. Pain is worse with activity. Head position worsens symptoms as well. Pain is intermittent and is not relieved with pain medication. Denies trauma. Past Medical/Surgical History Medical Problems: (1) Angina pectoris, unspecified Status: Acute (2) Anxiety Status: Acute (3) Chest pain Status: Acute (4) Fatigue Status: Acute (5) Headache Status: Acute (6) Hypertension Status: Acute (7) Lower extremity edema Status: Acute (8) Obesity Status: Chronic (9) Thoracic aortic aneurysm Status: Acute Family History CVA Cancer Diabetes mellitus Heart disease Hypertension Kidney disease Kidney stones Lung disease TIAs GRANDMOTHER MOTHER Social History Smoking Status: Never Smoker Marital Status: single Housing Status: lives alone Occupation Status: employed Allergies Coded Allergies: Buspirone (Verified Allergy, Severe, NEURO COMPLICATIONS, 07/29/17) Lisinopril (Verified Allergy, Intermediate, cough, 07/29/17) Ammonia (Verified Allergy, Unknown, SWELLING, 07/29/17) Duloxetine (Verified Allergy, Unknown, RASH ITCHING, 07/29/17) Dust (Verified Allergy, Unknown, ROACHES,DUST MITES-CLOGGED UP SINUSES-CAN 'T BREATHE, 07/29/17) NSAIDs (Verified Allergy, Unknown, not supposed to use-S/P GASTRIC BYPASS , 07/29/17) Venlafaxine (Verified Allergy, Unknown, AFFECTS LEGS, 07/29/17) Diphenhydramine (Verified Adverse Reaction, Unknown, RESTLESS LEGS, ) Home Medications Scheduled Albuterol Inhaler (Ventolin Inhaler), 2 PUFFS INH TID Atorvastatin (Lipitor), 20 MG PO DAILY Biotin (Biotin), 500 MCG PO BID Carbidopa/Levodopa (Sinemet 25MG/100MG), 1 TAB PO QID Cholecalciferol (Vitamin D), 2,000 UNITS PO DAILY Cyanocobalamin (Vitamin B-12), 1,000 MCG PO MONTHLY Diclofenac Sodium (Topical) (Voltaren 1% Top Gel), 1 APPLN TOP QID Ergocalciferol (Vitamin D 11106 Unit), 1 CAP PO WK Fish Oil (Salt Flat-3), 1 CAP PO BID Fluticasone Propionate (Flovent Hfa), 2 PUFFS INH BID Fluticasone Propionate (Nasal) (Flonase Allergy Relief), 2 PUFF INH BID Furosemide (Lasix), 40 MG PO QAM Home O2 Therapy (Oxygen), 2 LITERS NA UD Ibandronate Sodium (Boniva), 150 MG PO MONTHLY Levothyroxine Sodium (Synthroid), 50 MCG PO QAM Magnesium Oxide (Mg Supplement (Magnesium), 500 MG PO DAILY Metaxalone (Skelaxin), 800 MG PO QID Metoprolol Tartrate (Lopressor) (Lopressor), 25 MG PO BID Multiple Vitamins W/ Minerals (Preservision Areds), 1 CAP PO BID Omeprazole (Prilosec), 20 MG PO DAILY Oyster Shell (Calcium), 500 MG PO BID Pediatric Multiple Vitamin W/ (Flintstones Chewable), 1 TAB PO QAM Potassium Chloride (Klor-Con M20), 20 MEQ PO DAILY Ropinirole (Requip), 0.5 MG PO TID Ropinirole (Requip), 0.5-2 MG PO HS Senna/Docusate Sod (Senokot S), 1 TAB PO BID Triamcinolone Acet (Aristocort 0.1%), 1 APPLN TOP BID Scheduled PRN Furosemide (Lasix), 20 MG PO HS PRN for EDEMA Ipratropium [place] (Nasal) (Ipratropium [place]), 1 SPRAY ELYSE QID PRN for Nasal Congestion Lorazepam (Ativan), 0.5 MG PO DAILY PRN for ANXIETY Ondansetron Hcl (Zofran), 4 MG PO Q6H PRN for Nausea Current Inpatient Medications Current Inpatient Medications Medications (Trade) Dose Ordered Sig/Caesar Route Start Time Stop Time Status Last Admin Dose Admin Ioversol (Optiray 320) 100 ml UD PRN IV 07/29/17 18:45 08/02/17 18:44 Al Hydrox/Mg Hydrox/Simethicone (Maalox Max Susp) 15 ml Q4H PRN PO 07/29/17 22:00 08/28/17 21:59 Ondansetron HCl (Zofran Inj) 4 mg Q6H PRN IV 07/29/17 22:00 08/28/17 21:59 Nitroglycerin (Nitrostat Tab) 0.4 mg UD PRN SL 07/29/17 22:00 08/28/17 21:59 07/30/17 04:42 0.4 MG Morphine Sulfate (MoRPHine SULFATE INJ) 2 mg Q30M PRN IV 07/29/17 22:00 08/12/17 21:59 07/30/17 11:35 2 MG Polyethylene (Miralax Powder Packet) 17 gm DAILY PRN PO 07/29/17 22:00 08/28/17 21:59 Albuterol (Ventolin Hfa Inhaler) 2 puffs TID INH 07/30/17 09:00 08/29/17 08:59 07/30/17 21:42 2 PUFFS Atorvastatin Calcium (Lipitor Tab) 20 mg DAILY PO 07/30/17 09:00 08/29/17 08:59 07/30/17 09:21 20 MG Carbidopa/Levodopa (Sinemet 25/ 100MG Tab) 1 tab QID PO 07/30/17 09:00 08/29/17 08:59 07/30/17 21:47 1 TAB Fish Oil (Salt Flat-3 (Purified Fish Oil) Cap) 1 gm BID PO 07/30/17 09:00 08/29/17 08:59 07/30/17 21:47 1 GM Fluticasone Propionate (Flonase Nasal Adams) 2 sprays BID ELYSE 07/30/17 09:00 08/29/17 08:59 07/30/17 21:42 2 SPRAYS Furosemide (Lasix Tab) 40 mg QAM PO 07/30/17 09:00 08/29/17 08:59 07/30/17 09:20 40 MG Levothyroxine Sodium (Synthroid Tab) 50 mcg DAILYBB PO 07/30/17 06:00 08/29/17 05:59 Metaxalone (Skelaxin Tab) 800 mg QID PO 07/30/17 09:00 08/29/17 08:59 07/30/17 21:43 800 MG Metoprolol Tartrate (Lopressor Tab) 25 mg BID PO 07/30/17 09:00 08/29/17 08:59 07/30/17 21:46 25 MG Ondansetron HCl (Zofran Tab) 4 mg Q6H PRN PO 07/29/17 22:00 08/28/17 21:59 07/30/17 14:22 4 MG Multivitamins (Flintstones Complete Tab) 1 tab QAM PO 07/30/17 09:00 08/29/17 08:59 07/30/17 09:20 1 TAB Ropinirole HCl (Requip Tab) 0.5 mg TID PO 07/30/17 09:00 08/29/17 08:59 07/30/17 21:46 0.5 MG Ropinirole HCl (Requip Tab) 0.5 mg HS PO 07/30/17 21:00 08/29/17 20:59 07/30/17 21:46 0.5 MG Senna/Docusate Sodium (Senokot S Tab) 1 tab BID PO 07/30/17 09:00 08/29/17 08:59 07/30/17 21:46 1 TAB Triamcinolone Acetonide (Kenalog 0.1% Cream) 1 appln BID EXT 07/30/17 09:00 08/29/17 08:59 07/30/17 09:19 1 APPLN Cholecalciferol (Vitamin D Tab) 2,000 inter.unit DAILY PO 07/30/17 09:00 08/29/17 08:59 07/30/17 09:21 2,000 INTER.UNIT Miscellaneous Information (Order Awaiting Action) 1 ea QS N/A 07/30/17 08:00 08/29/17 07:59 Magnesium Oxide (Mag-Ox Tab) 800 mg QAM PO 07/30/17 09:00 08/29/17 08:59 07/30/17 09:20 800 MG Miscellaneous Information (Order Awaiting Action) 1 ea QS N/A 07/30/17 08:00 08/29/17 07:59 Pantoprazole Sodium (Protonix Tab) 40 mg QAM PO 07/30/17 09:00 08/29/17 08:59 07/30/17 09:20 40 MG Potassium Chloride (Klor-Con Tab) 20 meq DAILY PO 07/30/17 09:00 08/29/17 08:59 07/30/17 09:21 20 MEQ Fluticasone Propionate (Flovent Hfa 110MCG Inhaler) 2 puffs BID INH 07/30/17 09:00 08/29/17 08:59 07/30/17 21:42 2 PUFFS Lorazepam (Ativan Tab) 0.5 mg DAILY PRN PO 07/29/17 22:30 08/28/17 22:29 07/30/17 04:05 0.5 MG Miscellaneous (Iv Fluids Completed) 1 ea PRN PRN N/A 07/30/17 00:30 07/30/18 00:29 Acetaminophen (Tylenol Tab) 1,000 mg Q8 PO 07/30/17 14:00 08/29/17 13:59 07/30/17 21:44 1,000 MG Enoxaparin Sodium (Lovenox Inj) 40 mg QAM SQ 07/31/17 09:00 08/30/17 08:59 Buspirone HCl (BusPAR TAB) 7.5 mg BID PO 07/30/17 21:00 08/29/17 20:59 07/30/17 21:44 7.5 MG Review of Systems Negative with the exception of those mentioned in the HPI above. Physical Exam Date Time Temp Pulse Resp B/P (MAP) Pulse Ox O2 Delivery O2 Flow Rate FiO2 07/30/17 21:30 94 Room Air 07/30/17 19:50 36.3 69 18 119/80 (93) 94 Room Air 07/30/17 19:36 36.5 67 21 95 2.0 07/30/17 19:13 36.5 67 21 132/82 (99) 95 Room Air 07/30/17 16:00 Room Air 07/30/17 15:24 36.6 64 18 125/86 (99) 98 Room Air 07/30/17 12:08 36.6 59 16 100/69 (79) 97 Room Air 07/30/17 12:00 Room Air 07/30/17 08:19 36.5 55 16 109/68 (82) 97 Room Air 07/30/17 08:00 Room Air 07/30/17 04:42 62 130/74 (92) 07/30/17 03:21 36.5 61 15 96/55 (69) 97 Nasal Cannula 2.0 07/29/17 23:21 36.5 79 20 110/66 97 Room Air 07/29/17 22:44 75 16 121/65 96 Room Air NAD, AOx3, Tearful RUE decreased sensation overlying ulnar nerve distribution, decreased motor strength grossly, decreased ROM, shoulder forward flexion 145 degrees, abduction 90 degrees, int rot L1, neg belly press, + rosibel test, neg yergasons and speeds testing, negative pascual test. LUE decreased sensation overlying ulnar nerve distribution, decreased motor strength grossly, decreased ROM, shoulder forward flexion 145 degrees, abduction 90 degrees, int rot L1, neg belly press, + rosibel test, neg yergasons and speeds testing, negative pascual test. + mild intrinsic wasting bilateral hands +spurlings on the right. Laboratory Results Last 24 Hours Test 07/30/17 06:30 07/30/17 13:47 White Blood Count 5.63 K/uL Red Blood Count 3.65 M/uL Hemoglobin 11.3 g/dL Hematocrit 36.1 % Mean Corpuscular Volume 98.9 fL Mean Corpuscular Hemoglobin 31.0 pg Mean Corpuscular Hemoglobin Concent 31.3 g/dl Platelet Count 231 K/uL Mean Platelet Volume 10.3 fL Neutrophils (%) (Auto) 65.6 % Lymphocytes (%) (Auto) 23.8 % Monocytes (%) (Auto) 8.3 % Eosinophils (%) (Auto) 1.4 % Basophils (%) (Auto) 0.7 % Neutrophils # (Auto) 3.69 K/uL Lymphocytes # (Auto) 1.34 K/uL Monocytes # (Auto) 0.47 K/uL Eosinophils # (Auto) 0.08 K/uL Basophils # (Auto) 0.04 K/uL RDW Standard Deviation 47.7 fL RDW Coefficient of Variation 13.1 % Immature Granulocyte % (Auto) 0.2 % Immature Granulocyte # (Auto) 0.01 K/uL Sodium Level 142 mmol/L Potassium Level 3.8 mmol/L Chloride Level 110 mmol/L Carbon Dioxide Level 27 mmol/L Anion Gap 5.0 mmol/L Blood Urea Nitrogen 33 mg/dl Creatinine 0.72 mg/dl Est Creatinine Clear Calc Drug Dose 83.0 ml/min Estimated GFR () 100.4 Estimated GFR (Non- 86.7 BUN/Creatinine Ratio 45.6 Random Glucose 102 mg/dl Calcium Level 8.6 mg/dl Magnesium Level 2.4 mg/dl Troponin I < 0.015 ng/ml < 0.015 ng/ml Hepatitis C Antibody Screen NEG Assessment & Plan Right upper extremity pain. Given the patients clinical appearance and PMH I suspect radiculopathy from the C-spine but cannot rule out secondary impingement creating a double crush syndrome. The patient may have concomitant rotator cuff pathology, tendonitis vs partial tear. Would recommend starting with basic imaging of the right shoulder and C-spine. I would also consider advanced testing, MRI C-spine, right shoulder and possible EMG/NCV. Pending findings, the patient may WBAT and begin PT/OT. Will likely need evaluation by orthopedic spine team. Thank you for the consultation.
[2017-07-31] MEDS ORDERED: OXYCODONE/ACETAMINOPHEN 5-325 TAB PO PRN (00:45)
[2017-07-31] MEDS ORDERED: MoRPHine SULFATE 4 MG/ML 1 ML CARP\\VIAL IV PRN (00:45)
[2017-07-31] MEDS: LEVOTHYROXINE 50 MCG TAB PO SCH (06:24)
[2017-07-31] MEDS: ACETAMINOPHEN 500 MG TAB PO SCH ×2 (06:25→13:14)
[2017-07-31 07:26] VITALS: BP 92/42; PULSE 59; TEMP 36.5; O2SAT 98
--- NOTE | 2017-07-31 07:32 | DIAGNOSTIC IMAGING REPORT ---
CERVICAL WITHOUT CONTRAST HISTORY: 67 years-old Female Neck and R shoulder/arm pain with ulnar numbness, h/o deg change acute neck, right shoulder and right arm pain with ulnar numbness COMPARISON: Cervical spine MR 01/23/2014, CTA of the chest 07/29/2017 TECHNIQUE: Multiplanar multisequence MRI the cervical spine was obtained without contrast. FINDINGS: The large [id number] bone drier localizer images demonstrate cardiomegaly with fusiform aneurysmal dilation of the descending thoracic aorta measuring up to approximate 5.0 cm transversely. Signal within the cervical spinal cord is within normal limits. The imaged posterior fossa structures are unremarkable. There is no focal bone marrow edema, fracture or subluxation identified. Multilevel degenerative changes are noted as described below. C2-C3: Mild uncovertebral spurring and mild intervertebral disc space narrowing with minimal facet arthrosis. No central canal or foraminal narrowing. C3-C4: Mild intervertebral disc space narrowing and uncovertebral spurring with mild facet arthrosis. There is slight flattening of the ventral thecal sac without significant central canal or foraminal stenosis. C4-C5: Moderate intervertebral disc space narrowing with broad-based posterior disc osteophyte complex formation and moderate facet arthrosis with small left facet effusion. These changes have progressively worsened from prior study and causes mild central canal and mild right foraminal narrowing. Left foramen appears patent. C5-C6: Severe intervertebral disc space narrowing with circumferential disc osteophyte complex and moderate facet arthrosis. Findings cause mild central canal, mild left foraminal and moderate to severe right foraminal narrowing. These findings have also progressed and worsened. C6-C7: Severe intervertebral disc space narrowing with broad-based posterior disc osteophyte complex and moderate facet arthrosis. Mild central canal and mild left foraminal narrowing. The right foramen is generally patent. No significant change. C7-T1: Mild uncovertebral spurring and mild intervertebral disc space narrowing with moderate facet arthrosis. No central canal or foraminal narrowing. T1-T2: Moderate intervertebral disc space narrowing with broad-based posterior disc osteophyte complex flattens the ventral thecal sac. No significant central canal or foraminal narrowing. Discogenic degenerative changes are also noted within the remaining imaged upper thoracic levels without high-grade central canal narrowing identified. IMPRESSION: 1. Progressively worsened discogenic degenerative changes of the cervical spine as above. 2. At C5-C6 there is severe intervertebral disc space narrowing with circumferential disc osteophyte complex and moderate facet arthrosis causing mild central canal, mild left foraminal and moderate to severe right foraminal narrowing. 3. Mild central canal stenosis is present at C4-C5 and C6-C7 as well. 4. No acute fracture or focal bone marrow edema. 5. Cardiomegaly with fusiform aneurysmal dilation of the ascending thoracic aorta redemonstrated, measuring approximately 5.0 cm. The above report was generated using voice recognition software. It may contain grammatical, syntax or spelling errors. Electronically signed by: Alexx Foster M.D. 07/31/2017 7:30 AM Dictated Date/Time: 07/31/2017 7:19 AM
--- NOTE | 2017-07-31 08:10 | CARDIOLOGY CONSULTATION ---
DATE OF CONSULTATION: 07/30/2017 CONSULTATION REQUESTED BY: Dr. Gonzalez. REASON FOR CONSULTATION: Chest pain. HISTORY OF PRESENT ILLNESS: Ms. Oneal is a very pleasant yet medically complex 67-year-old woman, who normally follows with myself as an outpatient for a history of ascending aortic aneurysm. The patient presented to [facility] Emergency Department on 07/29/2017 with a complaint of shoulder and chest pain. The patient states that she was in her normal state of health yesterday when she was rearranging books in a bookcase. She reached over to curing pickling packer a book with her right arm and when she reached over, she felt a shooting pain sensation down her right shoulder down her right arm to her fingertips. She became concerned that this might be related to her heart and then started becoming anxious. With this, she started developing chest discomfort. She described the chest discomfort as a pressure sensation that started at the right precordium and then radiated to the left. She became a little short of breath with this and sat down to calm herself. She then took a 3-hour and nap and initially when she woke up, she was feeling better, but then her right shoulder started to hurt again, again she became anxious and developed chest discomfort, so she had her friend bring her into the Emergency Department. In the Emergency Department, her initial workup was unremarkable, but given her extensive medical history, I have recommended admission to the telemetry after speaking to Dr. Gonzalez. Currently, the patient states that she is feeling better, but she is very anxious in regards to her pain. We are following her ascending thoracic aortic aneurysm very closely and most recent CT scan of the chest has shown that it is now 5 cm and she is scheduled to meet with cardiothoracic surgery in the next few weeks. She also had a Lexiscan nuclear stress test as an outpatient, which was nonischemic. Also of note, the patient does have a history of significant neck problems and a history of significant anxiety. She has tried to get in to see psychiatry as an outpatient, but has not been successful. PAST SURGICAL HISTORY: 1. Multiple knee surgeries. 2. Gastric bypass surgery. 3. Tummy tuck. 4. Multiple lumbosacral injections. 5. Cholecystectomy. 6. Partial hysterectomy. MEDICAL ILLNESSES: 1. Ascending thoracic aortic aneurysm. 2. History of vasovagal syncope. 3. Fibromyalgia. 4. Obesity, status post gastric bypass surgery with continued obesity. 5. Restless legs syndrome. 6. Anxiety disorder. 7. Questionable depression. 8. Hypertension. 9. Dyslipidemia. 10. Malabsorption, status post gastric bypass. 11. Obstructive sleep apnea, nocturnal CPAP. FAMILY HISTORY: Denies any premature coronary artery disease or sudden cardiac . SOCIAL HISTORY: She denies any alcohol, tobacco or recreational drug use. She is not . She has no children. She is not employed. She does not exercise on a regular basis. REVIEW OF SYSTEMS: As per HPI. All other review of systems reviewed and negative at this time. MEDICATIONS AN OUTPATIENT: 1. Ammonia. 2. Buspirone. 3. Diphenhydramine. 4. Duloxetine. 5. Lisinopril. 6. NSAIDs. 7. Venlafaxine. PHYSICAL EXAMINATION: VITAL SIGNS: Temperature 36.5, pulse 55, respiratory rate 12, and blood pressure 109/68. GENERAL: Awake, alert, and oriented x3. Mildly anxious, but no other acute distress. The patient does appear at her normal baseline. HEENT: Normocephalic and atraumatic. Pupils equal, round, and reactive to light and accommodation. Extraocular muscles intact. Anicteric sclerae. Moist mucous membranes. NECK: No JVD. No bruit. CARDIOVASCULAR: Regular. Positive S4. Normal S1 and S2. No S3. No murmurs or rubs. PULMONARY: Clear to auscultation bilaterally. No rales, rhonchi, or wheezing. ABDOMEN: Bowel sounds x4. Soft. No rebound, guarding, or tenderness. No organomegaly. EXTREMITIES: No clubbing, cyanosis or edema. +2 pedal pulses bilaterally. SKIN: Warm and dry. TEST RESULTS: CTA of the chest performed in the Emergency Department showed stable ascending thoracic aortic aneurysm, measuring 5.1 cm, which is a slight increase from 4.8 at previous study. No dissection. No pulmonary embolus is identified. Lungs are otherwise clear. IMPRESSION: 1. Chest pain secondary to anxiety. 2. Radicular right cervical pain. 3. Anxiety and depression. 4. Ascending thoracic aortic aneurysm, being followed by cardiology and cardiothoracic surgery. RECOMMENDATIONS: It was my pleasure to see Ms. Oneal in reevaluation today. Given the fact that she had a recent nonischemic Lexiscan nuclear stress test, I believe the patient is suffering from a combination of anxiety and cervical radiculopathy. So at this time, I will ask our orthopedic surgery colleagues to evaluate her shoulder and our psychiatric colleagues to help her with her anxiety. Cardiac hernandez, no other medication changes will be made. She will be maintained on her metoprolol b.i.d., which is to help slow the progression of her aneurysm. It is otherwise okay to take her off telemetry at this time, but again further workup for other elements will be completed.
[2017-07-31] MEDS: ALBUTEROL HFA 8 GM INHALER INH SCH ×2 (08:24→13:13)
[2017-07-31] MEDS: FLUTICASONE HFA 110MCG INHALER INH SCH (08:24)
[2017-07-31] MEDS: FLUTICASONE PROPIONATE NA SPR 16 GM BTL NAE SCH (08:24)
[2017-07-31] MEDS: TRIAMCINOLONE ACET 0.1% CR 15 GM TUBE EXT SCH (08:27)
[2017-07-31] MEDS: POTASSIUM CHLORIDE 20 MEQ TABCR PO SCH (08:28)
[2017-07-31] MEDS: CHOLECALCIFEROL 1000 INTER.UNIT TAB PO SCH (08:28)
[2017-07-31] MEDS: MAGNESIUM OXIDE 400 MG TAB PO SCH (08:29)
[2017-07-31] MEDS: METAXALONE 800 MG TAB PO SCH ×3 (08:29→16:29)
[2017-07-31] MEDS: OMEGA-3 (PURIFIED FISH OIL) 1 GM CAP PO SCH (08:30)
[2017-07-31] MEDS: PANTOprazole SOD 40 MG TAB PO SCH (08:30)
[2017-07-31] MEDS: CARBIDOPA/LEVODOPA 25/100MG TAB PO SCH ×3 (08:30→16:29)
[2017-07-31] MEDS: ROPINIROLE HCL 1 MG TAB PO SCH ×2 (08:30→13:14)
[2017-07-31] MEDS: FLINTSTONES COMPLETE CHEWABLE TAB PO SCH (08:31)
[2017-07-31] MEDS: DOCUSATE SODIUM/SENNA 50/8.6MG TAB PO SCH (08:31)
[2017-07-31] MEDS: METOPROLOL TARTRATE 25 MG TAB PO SCH (08:31)
[2017-07-31] MEDS: ATORVASTATIN 20 MG TAB PO SCH (08:31)
[2017-07-31] MEDS: FUROSEMIDE 40 MG TAB PO SCH (08:32)
[2017-07-31] MEDS: BusPIRone 15 MG TAB PO SCH (08:32)
[2017-07-31] MEDS ORDERED: ENOXAPARIN 40 MG/0.4 ML SYR SQ SCH (09:00)
--- NOTE | 2017-07-31 09:42 | Pain Management Consultation ---
Pain Management Consultation Date of Consultation Jul 31, 2017. Reason for Consultation Neck pain, arm pain and upper extremity paresthesias Pain Location 1 - 2 - 3 - History Mrs. Oneal is a 67-year-old white female who was admitted with complaints of chest pain, neck pain and right greater than left upper extremity pain with paresthesias. She has a known history of thoracic ascending aortic aneurysm, depression, anxiety and fibromyalgia. She underwent cardiac evaluation upon this admission to determine slight progression of her aortic aneurysm but have ruled out cardiac etiology of her symptomatic complaints. Patient describes that she was performing housework with organizing when she developed some right upper extremity pain involving the hand and then numbness involving the fourth and fifth digits which contributed to an aching sensation traveling up the entire arm and into the neck/chest region. She reported these episodes lasted for a few minutes at the initial onset and then recurred intermittently throughout the day.. She reported axial neck pain bilaterally and equal which is fairly chronic with muscle spasm/tightness. She reports her current pain as ranging between a 0-6/10. She had reported intermittent episodes in the past of right upper extremity discomfort but nothing the significant or persistent. She reported some similar left upper extremity symptoms which have not been as significant or often. She denies any recent falls or injuries. She does perform a lot of repetitive activities with sewing, phone/computer use and crocheting. Patient reported no overt weaknesses or dropping of objects. Patient has been on chronic Skelaxin therapy directed at fibromyalgia reportedly with benefit. She indicates that her anxiety contributes to her symptoms occasionally and she does perform crocheting activities as a way to diminish anxiety response. She further reports significant difficulties with restless leg syndrome and frequent sleep interference. She has tried multiple medications including but not limited to gabapentin, baclofen, Cymbalta and venlafaxine directed at her chronic fibromyalgia complaints, but discontinued all of these medications due to exacerbation of restless leg syndrome. Patient did fine Percocet to be of benefit last evening without side effects. She remains under the care of neurology with Dr. Salazar for treatment of her restless leg syndrome complaints. She reported no associated lightheadedness or dizziness. She does experience some shortness of breath when she experiences chest pain. She is unable to recall prior EMG completed of the upper extremities. She denies any significant headache complaints. She does have diffuse myofascial pain complaints. No further constitutional complaints at today's visit. Plan of care discussed with Dr. Mujica. Past Medical/Surgical History (1) Chest pain (2) Bronchitis (3) Hypertension (4) Angina pectoris, unspecified (5) Anxiety (6) Chest pain (7) Thoracic aortic aneurysm (8) Left Knee DJD (9) ISAC (generalized anxiety disorder) (10) Right shoulder pain (11) Thoraco abdominal aneurysm (12) Cholecystectomy (13) Gastric Bypass (14) Pancreatitis (15) Obesity (16) Hypertension Nos (17) Right sided weakness (18) Right sided weakness (19) S/P hysterectomy Family History CVA Cancer Diabetes mellitus Heart disease Hypertension Kidney disease Kidney stones Lung disease TIAs GRANDMOTHER MOTHER Social / Work History Smoking Status: Never smoker Smokeless Tobacco Use: No Alcohol Use: none Drug Use: none Marital Status: single Housing Status: lives alone Occupation: employed Allergies Coded Allergies: Buspirone (Verified Allergy, Severe, NEURO COMPLICATIONS, 07/29/17) Lisinopril (Verified Allergy, Intermediate, cough, 07/29/17) Ammonia (Verified Allergy, Unknown, SWELLING, 07/29/17) Duloxetine (Verified Allergy, Unknown, RASH ITCHING, 07/29/17) Dust (Verified Allergy, Unknown, ROACHES,DUST MITES-CLOGGED UP SINUSES-CAN 'T BREATHE, 07/29/17) NSAIDs (Verified Allergy, Unknown, not supposed to use-S/P GASTRIC BYPASS , 07/29/17) Venlafaxine (Verified Allergy, Unknown, AFFECTS LEGS, 07/29/17) Diphenhydramine (Verified Adverse Reaction, Unknown, RESTLESS LEGS, ) Medications Current Inpatient Medications Medications (Trade) Dose Ordered Sig/Caesar Route Start Time Stop Time Status Last Admin Dose Admin Ioversol (Optiray 320) 100 ml UD PRN IV 07/29/17 18:45 08/02/17 18:44 Al Hydrox/Mg Hydrox/Simethicone (Maalox Max Susp) 15 ml Q4H PRN PO 07/29/17 22:00 08/28/17 21:59 Ondansetron HCl (Zofran Inj) 4 mg Q6H PRN IV 07/29/17 22:00 08/28/17 21:59 Nitroglycerin (Nitrostat Tab) 0.4 mg UD PRN SL 07/29/17 22:00 08/28/17 21:59 07/30/17 04:42 0.4 MG Morphine Sulfate (MoRPHine SULFATE INJ) 2 mg Q30M PRN IV 07/29/17 22:00 08/12/17 21:59 07/30/17 11:35 2 MG Polyethylene (Miralax Powder Packet) 17 gm DAILY PRN PO 07/29/17 22:00 08/28/17 21:59 Albuterol (Ventolin Hfa Inhaler) 2 puffs TID INH 07/30/17 09:00 08/29/17 08:59 07/31/17 08:24 2 PUFFS Atorvastatin Calcium (Lipitor Tab) 20 mg DAILY PO 07/30/17 09:00 08/29/17 08:59 07/31/17 08:31 20 MG Carbidopa/Levodopa (Sinemet 25/ 100MG Tab) 1 tab QID PO 07/30/17 09:00 08/29/17 08:59 07/31/17 08:30 1 TAB Fish Oil ([place]-3 (Purified Fish Oil) Cap) 1 gm BID PO 07/30/17 09:00 08/29/17 08:59 07/31/17 08:30 1 GM Fluticasone Propionate (Flonase Nasal [place]) 2 sprays BID ELYSE 07/30/17 09:00 08/29/17 08:59 07/31/17 08:24 2 SPRAYS Furosemide (Lasix Tab) 40 mg QAM PO 07/30/17 09:00 08/29/17 08:59 07/31/17 08:32 40 MG Levothyroxine Sodium (Synthroid Tab) 50 mcg DAILYBB PO 07/30/17 06:00 08/29/17 05:59 07/31/17 06:24 50 MCG Metaxalone (Skelaxin Tab) 800 mg QID PO 07/30/17 09:00 08/29/17 08:59 07/31/17 08:29 800 MG Metoprolol Tartrate (Lopressor Tab) 25 mg BID PO 07/30/17 09:00 08/29/17 08:59 07/30/17 21:46 25 MG Ondansetron HCl (Zofran Tab) 4 mg Q6H PRN PO 07/29/17 22:00 08/28/17 21:59 07/30/17 14:22 4 MG Multivitamins (Flintstones Complete Tab) 1 tab QAM PO 07/30/17 09:00 08/29/17 08:59 07/31/17 08:31 1 TAB Ropinirole HCl (Requip Tab) 0.5 mg TID PO 07/30/17 09:00 08/29/17 08:59 07/31/17 08:30 0.5 MG Ropinirole HCl (Requip Tab) 0.5 mg HS PO 07/30/17 21:00 08/29/17 20:59 07/30/17 21:46 0.5 MG Senna/Docusate Sodium (Senokot S Tab) 1 tab BID PO 07/30/17 09:00 08/29/17 08:59 07/31/17 08:31 1 TAB Triamcinolone Acetonide (Kenalog 0.1% Cream) 1 appln BID EXT 07/30/17 09:00 08/29/17 08:59 07/30/17 09:19 1 APPLN Cholecalciferol (Vitamin D Tab) 2,000 inter.unit DAILY PO 07/30/17 09:00 08/29/17 08:59 07/31/17 08:28 2,000 INTER.UNIT Miscellaneous Information (Order Awaiting Action) 1 ea QS N/A 07/30/17 08:00 08/29/17 07:59 Magnesium Oxide (Mag-Ox Tab) 800 mg QAM PO 07/30/17 09:00 08/29/17 08:59 07/31/17 08:29 800 MG Miscellaneous Information (Order Awaiting Action) 1 ea QS N/A 07/30/17 08:00 08/29/17 07:59 Pantoprazole Sodium (Protonix Tab) 40 mg QAM PO 07/30/17 09:00 08/29/17 08:59 07/31/17 08:30 40 MG Potassium Chloride (Klor-Con Tab) 20 meq DAILY PO 07/30/17 09:00 08/29/17 08:59 07/31/17 08:28 20 MEQ Fluticasone Propionate (Flovent Hfa 110MCG Inhaler) 2 puffs BID INH 07/30/17 09:00 08/29/17 08:59 07/31/17 08:24 2 PUFFS Lorazepam (Ativan Tab) 0.5 mg DAILY PRN PO 07/29/17 22:30 08/28/17 22:29 07/30/17 04:05 0.5 MG Miscellaneous (Iv Fluids Completed) 1 ea PRN PRN N/A 07/30/17 00:30 07/30/18 00:29 Acetaminophen (Tylenol Tab) 1,000 mg Q8 PO 07/30/17 14:00 08/29/17 13:59 07/31/17 06:25 1,000 MG Enoxaparin Sodium (Lovenox Inj) 40 mg QAM SQ 07/31/17 09:00 08/30/17 08:59 07/31/17 08:26 40 MG Buspirone HCl (BusPAR TAB) 7.5 mg BID PO 07/30/17 21:00 08/29/17 20:59 07/31/17 08:32 7.5 MG Morphine Sulfate (MoRPHine SULFATE INJ) 4 mg Q4H PRN IV 07/31/17 00:45 08/14/17 00:44 Oxycodone/ Acetaminophen (Percocet 5-325mg Tab) 1 tab Q6H PRN PO 07/31/17 00:45 08/14/17 00:44 07/31/17 01:17 1 TAB Review of Systems Patient denies complaints related to cardiac, pulmonary, GI, , endocrine, neurologic, hepatic, renal, ENT, dermatologic or musculoskeletal other than those described above in the history of present illness. Physical Exam Height & Weight: Height 5 feet, 1.00 inches. Weight 101.800 (Kilograms) 224 (Pounds) Last Vital Signs Documentation Date Time Temp Pulse Resp B/P (MAP) Pulse Ox O2 Delivery O2 Flow Rate FiO2 07/31/17 07:26 36.5 59 20 92/42 (59) 98 Room Air 07/30/17 19:36 2.0 Exam: Gen.: Patient sitting up upon entering the room in no acute distress. Patient appeared to be moderately anxious. Speech and thought process appropriate. Cognition intact. Alert and oriented 3. Head: Normocephalic and atraumatic. Neck: Full range of motion with increased discomfort with lateral rotation, ear to shoulder maneuvering and extension. Nontender over the midline. No focal facet joint tenderness to provocative testing. Diffuse paravertebral, proximal trapezius and mid trapezius muscular spasm with tenderness to palpation. No definable myoneural trigger points. Slightly hyperalgesic response. Similar findings of the rhomboid musculature. Spurling's maneuver increases axial neck pain without radicular component. Upper extremities: Strength 5/5 with handgrip, pincer grasp bilaterally. Opposition 4/5 on the right and 5/5 on the left. Biceps/triceps maneuvering 4/ 5 on the right and 5/5 on the left. There appears to be some moderate thenar atrophy appreciated on the right. Negative Tinel's/Phalen sign at the wrist. DTRs 2+ of the biceps, brachioradialis and triceps bilaterally. Sensation slightly diminished over the fourth and fifth digits on the right when compared to the left, all other sensations intact without deficits. Chest: Patient tender to palpation of the costosternal junction. Nontender with AP and lateral compression. Musculoskeletal: Patient has diffuse myofascial tenderness to palpation. Patient is tender at greater than 11/18 sites identified but ACR relating to fibromyalgia. Neurologic: Cranial nerves grossly intact. Patient able to sit up and move around in the bed without discomfort or limitation. Ambulatory function not witnessed. Laboratory Laboratory Results (Last CBC): 07/30/17 06:30 Red Blood Count 3.65 L, Mean Corpuscular Volume 98.9, Mean Corpuscular Hemoglobin 31.0, Mean Corpuscular Hemoglobin Concent 31.3 L, Mean Platelet Volume 10.3, Neutrophils (%) (Auto) 65.6, Lymphocytes (%) (Auto) 23.8, Monocytes (%) (Auto) 8.3, Eosinophils (%) (Auto) 1.4, Basophils (%) (Auto) 0.7, Neutrophils # (Auto) 3.69, Lymphocytes # (Auto) 1.34, Monocytes # (Auto) 0.47, Eosinophils # (Auto) 0.08, Basophils # (Auto) 0.04 Imaging MRI: reports reviewed MRI Findings Patient: GRETTA ONEAL Address1: [address] [place] [address] Rec: [id number] Address2: Acct ID: [id number] [facility] Zip: [place] [address] Date: 1950 Sex: F Room/Bed: W253-2 Ref Phy: Will Arredondo D.O. SC: [id number] Att Phy: Leny Breen DO Report #: [id number] Elva Phy: Will Arredondo D.O. Test: CVWO Admit Phy: Avni Hurst M.D. Film Sound Engineer: KARYNA Interpreting Phy: Keshawn Foster D.O. Diagnosis: CHEST PAIN, THORACIC AORTIC ANEURYSM Ordering Phy: Leny Breen DO Service Date: 07/30/17 Admit Date: 07/29/1800/23/18 MNE: [id number] CONF: DICTATED BY: Keshawn Foster D.O.]] CC: Will Arredondo D.O. Sumner, Sabrina M., DO Endcc: [~ rep ct add3]] CERVICAL WITHOUT CONTRAST HISTORY: 67 years-old Female Neck and R shoulder/arm pain with ulnar numbness, h/o deg change acute neck, right shoulder and right arm pain with ulnar numbness COMPARISON: Cervical spine MR 01/23/2014, CTA of the chest 07/29/2017 TECHNIQUE: Multiplanar multisequence MRI the cervical spine was obtained without contrast. FINDINGS: The large [id number] dray driver localizer images demonstrate cardiomegaly with fusiform aneurysmal dilation of the descending thoracic aorta measuring up to approximate 5.0 cm transversely. Signal within the cervical spinal cord is within normal limits. The imaged posterior fossa structures are unremarkable. There is no focal bone marrow edema, fracture or subluxation identified. Multilevel degenerative changes are noted as described below. C2-C3: Mild uncovertebral spurring and mild intervertebral disc space narrowing with minimal facet arthrosis. No central canal or foraminal narrowing. C3-C4: Mild intervertebral disc space narrowing and uncovertebral spurring with mild facet arthrosis. There is slight flattening of the ventral thecal sac without significant central canal or foraminal stenosis. C4-C5: Moderate intervertebral disc space narrowing with broad-based posterior disc osteophyte complex formation and moderate facet arthrosis with small left facet effusion. These changes have progressively worsened from prior study and causes mild central canal and mild right foraminal narrowing. Left foramen appears patent. C5-C6: Severe intervertebral disc space narrowing with circumferential disc osteophyte complex and moderate facet arthrosis. Findings cause mild central canal, mild left foraminal and moderate to severe right foraminal narrowing. These findings have also progressed and worsened. C6-C7: Severe intervertebral disc space narrowing with broad-based posterior disc osteophyte complex and moderate facet arthrosis. Mild central canal and mild left foraminal narrowing. The right foramen is generally patent. No significant change. C7-T1: Mild uncovertebral spurring and mild intervertebral disc space narrowing with moderate facet arthrosis. No central canal or foraminal narrowing. T1-T2: Moderate intervertebral disc space narrowing with broad-based posterior disc osteophyte complex flattens the ventral thecal sac. No significant central canal or foraminal narrowing. Discogenic degenerative changes are also noted within the remaining imaged upper thoracic levels without high-grade central canal narrowing identified. IMPRESSION: 1. Progressively worsened discogenic degenerative changes of the cervical spine as above. 2. At C5-C6 there is severe intervertebral disc space narrowing with circumferential disc osteophyte complex and moderate facet arthrosis causing mild central canal, mild left foraminal and moderate to severe right foraminal narrowing. 3. Mild central canal stenosis is present at C4-C5 and C6-C7 as well. 4. No acute fracture or focal bone marrow edema. 5. Cardiomegaly with fusiform aneurysmal dilation of the ascending thoracic aorta redemonstrated, measuring approximately 5.0 cm. The above report was generated using voice recognition software. It may contain grammatical, syntax or spelling errors. Electronically signed by: Alexx Foster M.D. 07/31/2017 7:30 AM Dictated Date/Time: 07/31/2017 7:19 AM The status of this report is Signed. Draft = Not yet reviewed or approved by Radiologist. Signed = Reviewed and approved by Radiologist. CT: reports reviewed CT Findings Patient: GRETTA ONEAL Address1: [address] [place] [address] Rec: [id number] Address2: Acct ID: [id number] [facility] Zip: [place] [address] Date: 1950 Sex: F Room/Bed: Ref Phy: Will Arredondo D.O. SC: WILMAR Att Phy: Report #: [id number] Elva Phy: Will Arredondo D.O. Test: CXPEA Admit Phy: Film Sound Engineer: PULAJM Interpreting Phy: Checo Brock M.D. Diagnosis: TIGHTNESS IN CHEST Ordering Phy: Anahi Gonzalez DO Service Date: 07/29/17 Admit Date: 07/29/17 MNE: [id number] CONF: DICTATED BY: Checo Brock M.D.]] CC: Will Arredondo D.O. Pheasant, Karen S., Endcc: [~ rep ct add3]] (CHEST FOR PE) ANGIO WITH CT DOSE: 626.74 mGy.cm HISTORY: Chest pain dyspnea TECHNIQUE: Multiaxial CT images of the chest were performed following the intravenous administration of contrast to evaluate the pulmonary arteries. Maximal intensity projection images were also obtained. A dose lowering technique was utilized adhering to the principles of ALARA. COMPARISON STUDY: 10/15/2014 FINDINGS: Mild increase in aneurysmal dilatation a sending thoracic aorta. Maximum dimension currently is 5.1 cm increased from the prior study of 4.8 cm. There is no evidence for dissection. Moderate generalized prominence of the central pulmonary vasculature which may indicate a component of pulmonary arterial hypertension. The pulmonary vessels enhance appropriately, however with no significant filling defect. Lungs are clear. There are no infiltrates. Has been a prior gastroplasty area in IMPRESSION: 1. No evidence for pulmonary embolus. 2. Lungs are clear. 3. Prior gastric bypass. 4. Slight increase in diameter of the aneurysm of the a sending thoracic aorta at 5.1 cm, increased from the prior study of 4.8 cm. No evidence for dissection. 5. Developing prominence the pulmonary arterial vasculature centrally suggesting developing components of pulmonary arterial hypertension. The above report was generated using voice recognition software. It may contain grammatical, syntax or spelling errors. Electronically signed by: Checo Brock M.D. 07/29/2017 8:43 PM Dictated Date/Time: 07/29/2017 8:35 PM The status of this report is Signed. Draft = Not yet reviewed or approved by Radiologist. Signed = Reviewed and approved by Radiologist. <AttendingPhy></AttendingPhy> <FamilyPhy>Will Arredondo D.O.</FamilyPhy> < PrimaryPhy>Will Arredondo D.O.</PrimaryPhy> <UnitNumber>[id number]</ UnitNumber> <VisitNumber>[id number] Radiology: reports reviewed Radiology Findings Patient: GRETTA ONEAL Address1: [address] [place] [address] Rec: [id number] Address2: Acct ID: [id number] [facility] Zip: [place] [address] Date: 1950 Sex: F Room/Bed: Ref Phy: Will Arredondo D.O. SC: WILMAR Att Phy: Report #: [id number] Elva Phy: Will Arredondo D.O. Test: CXR1P Admit Phy: Film Sound Engineer: LINCOLN Interpreting Phy: Keshawn Foster D.O. Diagnosis: TIGHTNESS IN CHEST Ordering Phy: Anahi Gonzalez DO Service Date: 07/29/17 Admit Date: MNE: [id number] CONF: DICTATED BY: Keshawn Foster D.O.]] CC: Will Arredondo D.O. Pheasant, Karen S., DO Endcc: [~ rep ct add3]] CHEST ONE VIEW PORTABLE HISTORY: 67 years-old Female chest pain acute atypical chest pain COMPARISON: Chest radiograph 07/18/2017 TECHNIQUE: Portable AP view of the chest FINDINGS: The cardiac silhouette is again moderately enlarged. Atherosclerosis of the aorta. There is no pneumothorax, pleural effusion, focal airspace consolidation or overt pulmonary edema. The bones of the chest appear grossly intact. IMPRESSION: Cardiomegaly without acute process. The above report was generated using voice recognition software. It may contain grammatical, syntax or spelling errors. Electronically signed by: Alexx Foster M.D. 07/29/2017 5:24 PM Dictated Date/Time: 07/29/2017 5:23 PM Assessment 1. Cervicalgia 2. Upper extremity radicular pain/paresthesias 3. Cervical spondylosis-multilevel most prominent at C5-6 4. Ascending thoracic aortic aneurysm-5.0 cm 5. Anxiety disorder 6. Fibromyalgia 7. Restless leg syndrome Recommendations 1. Recommend patient obtain EMG upon discharge an attempt to further define her upper extremity pain/paresthesias complaints. Patient has no overt cervical disc herniation although multilevel cervical spondylosis. We discussed potential relationship with her symptomatic complaints as well as various treatment options. Would hold on any recommendations relating to interventional treatment pending review of EMG study. 2. We discussed transitioning to baclofen in place of Skelaxin as well as a trial of gabapentin but the patient deferred due to concerns over side effects. Would maintain her current medications as prescribed without change. 3. Recommend involvement in PT upon discharge 4. Patient may continue with Percocet for when necessary breakthrough pain during this admission. Consider discharge with tramadol versus hydrocodone for short-term use only for breakthrough pain due to patient's polypharmacy and concerns over drug drug interactions with opiates and relative contraindications of opiate therapy with concomitant use of benzodiazepine therapy. Would limit use of tramadol versus further discussion with psychiatry due to concerns over serotonin syndrome with multiple serotonergic medications on current med list. 5. Would consider evaluation in the outpatient setting pending completion of EMG study for determination of her candidacy for interventional treatment. Thank you for allowing us to participate in the care of Mrs. Oneal.
--- NOTE | 2017-07-31 11:22 | DIAGNOSTIC IMAGING REPORT ---
CERVICAL SPINE 2 OR 3 VIEWS HISTORY: Pain. Neuropathy. Bilateral UE parathesias and pain COMPARISON: None. FINDINGS: The cervical spine is visualized from C1 through the superior endplate of T1. There is no fracture. No subluxation. Considerable degenerative disc change from C4 through T1. Moderate anterior and posterior osteophytic reaction. Prevertebral soft tissues and the atlantodens interval are intact. IMPRESSION: Considerable degenerative disc change C4-T1. No acute process of the cervical spine. The above report was generated using voice recognition software. It may contain grammatical, syntax or spelling errors. Electronically signed by: Checo Brock M.D. 07/31/2017 11:20 AM Dictated Date/Time: 07/31/2017 11:20 AM
--- NOTE | 2017-07-31 11:29 | DIAGNOSTIC IMAGING REPORT ---
RIGHT SHOULDER 3 VIEWS HISTORY: Right shoulder pain, acute on chronic COMPARISON: None. FINDINGS: There is no fracture or dislocation. Soft tissues are unremarkable. The right clavicle is intact. Mild degenerative changes at the acromioclavicular and glenohumeral joints. IMPRESSION: No fracture or dislocation within the right shoulder. Electronically signed by: Tavares Jaramillo M.D. 07/31/2017 11:28 AM Dictated Date/Time: 07/31/2017 11:27 AM
--- NOTE | 2017-07-31 13:15 | Orthopedic Consultation ---
Orthopedic Consultation Date of Consultation: Jul 31, 2017. Attending Physician: Leny Breen DO Reason for Consultation: cervical radiculopathy History of Present Illness This is a pleasant 67-year-old female we were asked to see in consultation in regards to right upper extremity cervical radiculopathy. She reports she is had chronic neck pain for several years. She has noted acute right upper extremity pain starting roughly 2 days ago when she went forward and picker/puller a book. She had pain rating from her right side of her neck, right upper extremity including the right side of her chest wall. She was concerned she was having a heart attack or stroke therefore went to the emergency room. Since then she notes that cervical extension or activity such as trying to sew or pushup with both of her arms when changing positions will reproduce her pain. He states "I grin and bear it". She reports there are no palliative measures. She also reports numbness that is constant for the past 2 days along the ulnar aspect of her RIGHT hand into the ring and little finger. She denies left upper extremity pain, numbness, tingling. She states when pain is severe both for Hands will form a claw deformity temporarily. She denies any changes in balance. Denies bowel or bladder dysfunction. She does report having received cervical injections by Dr. moraes about 3 or 4 years ago with relief. She reports she has upcoming appointment and scheduled lumbar injection with him next week. Past Medical/Surgical History Medical Problems: (1) Angina pectoris, unspecified Status: Acute (2) Anxiety Status: Acute (3) Chest pain Status: Acute (4) Fatigue Status: Acute (5) Headache Status: Acute (6) Hypertension Status: Acute (7) Lower extremity edema Status: Acute (8) Obesity Status: Chronic (9) Thoracic aortic aneurysm Status: Acute Family History CVA Cancer Diabetes mellitus Heart disease Hypertension Kidney disease Kidney stones Lung disease TIAs GRANDMOTHER MOTHER Social History Smoking Status: Never Smoker Smokeless Tobacco Use: No Alcohol Use: none Marital Status: single Housing Status: lives alone Occupation Status: employed Allergies Coded Allergies: Buspirone (Verified Allergy, Severe, NEURO COMPLICATIONS, 07/29/17) Lisinopril (Verified Allergy, Intermediate, cough, 07/29/17) Ammonia (Verified Allergy, Unknown, SWELLING, 07/29/17) Duloxetine (Verified Allergy, Unknown, RASH ITCHING, 07/29/17) Dust (Verified Allergy, Unknown, ROACHES,DUST MITES-CLOGGED UP SINUSES-CAN 'T BREATHE, 07/29/17) NSAIDs (Verified Allergy, Unknown, not supposed to use-S/P GASTRIC BYPASS , 07/29/17) Venlafaxine (Verified Allergy, Unknown, AFFECTS LEGS, 07/29/17) Diphenhydramine (Verified Adverse Reaction, Unknown, RESTLESS LEGS, ) Home Medications Scheduled Albuterol Inhaler (Ventolin Inhaler), 2 PUFFS INH TID Atorvastatin (Lipitor), 20 MG PO DAILY Biotin (Biotin), 500 MCG PO BID Carbidopa/Levodopa (Sinemet 25MG/100MG), 1 TAB PO QID Cholecalciferol (Vitamin D), 2,000 UNITS PO DAILY Cyanocobalamin (Vitamin B-12), 1,000 MCG PO MONTHLY Diclofenac Sodium (Topical) (Voltaren 1% Top Gel), 1 APPLN TOP QID Ergocalciferol (Vitamin D 37451 Unit), 1 CAP PO WK Fish Oil (Kenney-3), 1 CAP PO BID Fluticasone Propionate (Flovent Hfa), 2 PUFFS INH BID Fluticasone Propionate (Nasal) (Flonase Allergy Relief), 2 PUFF INH BID Furosemide (Lasix), 40 MG PO QAM Home O2 Therapy (Oxygen), 2 LITERS NA UD Ibandronate Sodium (Boniva), 150 MG PO MONTHLY Levothyroxine Sodium (Synthroid), 50 MCG PO QAM Magnesium Oxide (Mg Supplement (Magnesium), 500 MG PO DAILY Metaxalone (Skelaxin), 800 MG PO QID Metoprolol Tartrate (Lopressor) (Lopressor), 25 MG PO BID Multiple Vitamins W/ Minerals (Preservision Areds), 1 CAP PO BID Omeprazole (Prilosec), 20 MG PO DAILY Oyster Shell (Calcium), 500 MG PO BID Pediatric Multiple Vitamin W/ (Flintstones Chewable), 1 TAB PO QAM Potassium Chloride (Klor-Con M20), 20 MEQ PO DAILY Ropinirole (Requip), 0.5 MG PO TID Ropinirole (Requip), 0.5-2 MG PO HS Senna/Docusate Sod (Senokot S), 1 TAB PO BID Triamcinolone Acet (Aristocort 0.1%), 1 APPLN TOP BID Scheduled PRN Furosemide (Lasix), 20 MG PO HS PRN for EDEMA Ipratropium Emmalena (Nasal) (Ipratropium Emmalena), 1 SPRAY ELYSE QID PRN for Nasal Congestion Lorazepam (Ativan), 0.5 MG PO DAILY PRN for ANXIETY Ondansetron Hcl (Zofran), 4 MG PO Q6H PRN for Nausea Current Inpatient Medications Current Inpatient Medications Medications (Trade) Dose Ordered Sig/Caesar Route Start Time Stop Time Status Last Admin Dose Admin Ioversol (Optiray 320) 100 ml UD PRN IV 07/29/17 18:45 08/02/17 18:44 Al Hydrox/Mg Hydrox/Simethicone (Maalox Max Susp) 15 ml Q4H PRN PO 07/29/17 22:00 08/28/17 21:59 Ondansetron HCl (Zofran Inj) 4 mg Q6H PRN IV 07/29/17 22:00 08/28/17 21:59 Nitroglycerin (Nitrostat Tab) 0.4 mg UD PRN SL 07/29/17 22:00 08/28/17 21:59 07/30/17 04:42 0.4 MG Morphine Sulfate (MoRPHine SULFATE INJ) 2 mg Q30M PRN IV 07/29/17 22:00 08/12/17 21:59 07/30/17 11:35 2 MG Polyethylene (Miralax Powder Packet) 17 gm DAILY PRN PO 07/29/17 22:00 08/28/17 21:59 Albuterol (Ventolin Hfa Inhaler) 2 puffs TID INH 07/30/17 09:00 08/29/17 08:59 07/31/17 08:24 2 PUFFS Atorvastatin Calcium (Lipitor Tab) 20 mg DAILY PO 07/30/17 09:00 08/29/17 08:59 07/31/17 08:31 20 MG Carbidopa/Levodopa (Sinemet 25/ 100MG Tab) 1 tab QID PO 07/30/17 09:00 08/29/17 08:59 07/31/17 08:30 1 TAB Fish Oil (Kenney-3 (Purified Fish Oil) Cap) 1 gm BID PO 07/30/17 09:00 08/29/17 08:59 07/31/17 08:30 1 GM Fluticasone Propionate (Flonase Nasal [place]) 2 sprays BID ELYSE 07/30/17 09:00 08/29/17 08:59 07/31/17 08:24 2 SPRAYS Furosemide (Lasix Tab) 40 mg QAM PO 07/30/17 09:00 08/29/17 08:59 07/31/17 08:32 40 MG Levothyroxine Sodium (Synthroid Tab) 50 mcg DAILYBB PO 07/30/17 06:00 08/29/17 05:59 07/31/17 06:24 50 MCG Metaxalone (Skelaxin Tab) 800 mg QID PO 07/30/17 09:00 08/29/17 08:59 07/31/17 08:29 800 MG Metoprolol Tartrate (Lopressor Tab) 25 mg BID PO 07/30/17 09:00 08/29/17 08:59 07/30/17 21:46 25 MG Ondansetron HCl (Zofran Tab) 4 mg Q6H PRN PO 07/29/17 22:00 08/28/17 21:59 07/30/17 14:22 4 MG Multivitamins (Flintstones Complete Tab) 1 tab QAM PO 07/30/17 09:00 08/29/17 08:59 07/31/17 08:31 1 TAB Ropinirole HCl (Requip Tab) 0.5 mg TID PO 07/30/17 09:00 08/29/17 08:59 07/31/17 08:30 0.5 MG Ropinirole HCl (Requip Tab) 0.5 mg HS PO 07/30/17 21:00 08/29/17 20:59 07/30/17 21:46 0.5 MG Senna/Docusate Sodium (Senokot S Tab) 1 tab BID PO 07/30/17 09:00 08/29/17 08:59 07/31/17 08:31 1 TAB Triamcinolone Acetonide (Kenalog 0.1% Cream) 1 appln BID EXT 07/30/17 09:00 08/29/17 08:59 07/30/17 09:19 1 APPLN Cholecalciferol (Vitamin D Tab) 2,000 inter.unit DAILY PO 07/30/17 09:00 08/29/17 08:59 07/31/17 08:28 2,000 INTER.UNIT Miscellaneous Information (Order Awaiting Action) 1 ea QS N/A 07/30/17 08:00 08/29/17 07:59 Magnesium Oxide (Mag-Ox Tab) 800 mg QAM PO 07/30/17 09:00 08/29/17 08:59 07/31/17 08:29 800 MG Miscellaneous Information (Order Awaiting Action) 1 ea QS N/A 07/30/17 08:00 08/29/17 07:59 Pantoprazole Sodium (Protonix Tab) 40 mg QAM PO 07/30/17 09:00 08/29/17 08:59 07/31/17 08:30 40 MG Potassium Chloride (Klor-Con Tab) 20 meq DAILY PO 07/30/17 09:00 08/29/17 08:59 07/31/17 08:28 20 MEQ Fluticasone Propionate (Flovent Hfa 110MCG Inhaler) 2 puffs BID INH 07/30/17 09:00 08/29/17 08:59 07/31/17 08:24 2 PUFFS Lorazepam (Ativan Tab) 0.5 mg DAILY PRN PO 07/29/17 22:30 08/28/17 22:29 07/30/17 04:05 0.5 MG Miscellaneous (Iv Fluids Completed) 1 ea PRN PRN N/A 07/30/17 00:30 07/30/18 00:29 Acetaminophen (Tylenol Tab) 1,000 mg Q8 PO 07/30/17 14:00 08/29/17 13:59 07/31/17 06:25 1,000 MG Enoxaparin Sodium (Lovenox Inj) 40 mg QAM SQ 07/31/17 09:00 08/30/17 08:59 07/31/17 08:26 40 MG Buspirone HCl (BusPAR TAB) 7.5 mg BID PO 07/30/17 21:00 08/29/17 20:59 07/31/17 08:32 7.5 MG Morphine Sulfate (MoRPHine SULFATE INJ) 4 mg Q4H PRN IV 07/31/17 00:45 08/14/17 00:44 Oxycodone/ Acetaminophen (Percocet 5-325mg Tab) 1 tab Q6H PRN PO 07/31/17 00:45 2 00:44 07/31/17 01:17 1 TAB Review of Systems neck pain, right upper extremity pain Neurologic: + numbness/tingling Physical Exam Date Time Temp Pulse Resp B/P (MAP) Pulse Ox O2 Delivery O2 Flow Rate FiO2 07/31/17 08:30 Room Air 07/31/17 07:26 36.5 59 20 92/42 (59) 98 Room Air 07/31/17 00:10 Room Air 07/30/17 21:30 94 Room Air 07/30/17 19:50 36.3 69 18 119/80 (93) 94 Room Air 07/30/17 19:36 36.5 67 21 95 2.0 07/30/17 19:13 36.5 67 21 132/82 (99) 95 Room Air 07/30/17 16:00 Room Air 07/30/17 15:24 36.6 64 18 125/86 (99) 98 Room Air Patient is seen in the room. She remained standing and walking throughout the room. She is in no obvious distress. She is cooperative with exam. She has positive lateral meets with extension. Positive Spurling sign to the right. She has 5 over 5 strength of bilateral finger intrinsics, finger extensors, finger flexors, wrist extensors, wrist flexors, biceps, triceps, deltoid. She ambulates with an independent steady gait. No evidence of upper motor neuron signs. General Appearance: WD/WN, no apparent distress Head: normocephalic Eyes: normal inspection ENT: hearing grossly normal Neck: supple Respiratory/Chest: no respiratory distress, no accessory muscle use Cardiovascular: regular rate, rhythm Back: normal inspection Neurologic/Psych: no motor/sensory deficits, oriented x 3 Skin: normal color, warm/dry Lymphatic: no adenopathy Laboratory Results Last 24 Hours Test 07/30/17 13:47 Troponin I < 0.015 ng/ml Patient Name: GRETTA PRAJAPATI Unit Number: [id number] Dictated: 07/31/17718 Transcribed: 07/31/17718 MAYLIN Printed Date/Time: [~ rep prt dt]/[~ rep prt tm] [~ rep ct labl] - [~ rep ct ivnm] [facility] [place] [place] [address] Dictated: 07/31/17718 Transcribed: 07/31/17718 MAYLIN Printed Date/Time: [~ rep prt dt]/[~ rep prt tm] [~ rep ct labl] - [~ rep ct ivnm] Patient: GRETTA PRAJAPATI Address1: [address] [place] [address] Rec: [id number] Address2: Acct ID: [id number] [facility] Zip: [place] [address] Date: 1950 Sex: F Room/Bed: [facility] Ref Phy: Will Arredondo D.O. SC: LIU Att Phy: Leny Breen DO Report #: [id number] Elva Phy: Will Arredondo D.O. Test: CVWO Admit Phy: Avni Hurst M.D. Service Advocate Contact: KARYNA Interpreting Phy: Keshawn Foster D.O. Diagnosis: CHEST PAIN, THORACIC AORTIC ANEURYSM Ordering Phy: Leny Breen DO Service Date: 07/30/17 Admit Date: 07/29/1800/23/18 MNE: [id number] CONF: DICTATED BY: Keshawn Foster D.O.]] CC: Will Arredondo D.O. Sumner, Sabrina M., DO Endcc: [~ rep ct add3]] CERVICAL WITHOUT CONTRAST HISTORY: 67 years-old Female Neck and R shoulder/arm pain with ulnar numbness, h/o deg change acute neck, right shoulder and right arm pain with ulnar numbness COMPARISON: Cervical spine MR 01/23/2014, CTA of the chest 07/29/2017 TECHNIQUE: Multiplanar multisequence MRI the cervical spine was obtained without contrast. FINDINGS: The large xpyih-xb-eidn supervisor chlorine liquefaction localizer images demonstrate cardiomegaly with fusiform aneurysmal dilation of the descending thoracic aorta measuring up to approximate 5.0 cm transversely. Signal within the cervical spinal cord is within normal limits. The imaged posterior fossa structures are unremarkable. There is no focal bone marrow edema, fracture or subluxation identified. Multilevel degenerative changes are noted as described below. C2-C3: Mild uncovertebral spurring and mild intervertebral disc space narrowing with minimal facet arthrosis. No central canal or foraminal narrowing. C3-C4: Mild intervertebral disc space narrowing and uncovertebral spurring with mild facet arthrosis. There is slight flattening of the ventral thecal sac without significant central canal or foraminal stenosis. C4-C5: Moderate intervertebral disc space narrowing with broad-based posterior disc osteophyte complex formation and moderate facet arthrosis with small left facet effusion. These changes have progressively worsened from prior study and causes mild central canal and mild right foraminal narrowing. Left foramen appears patent. C5-C6: Severe intervertebral disc space narrowing with circumferential disc osteophyte complex and moderate facet arthrosis. Findings cause mild central canal, mild left foraminal and moderate to severe right foraminal narrowing. These findings have also progressed and worsened. C6-C7: Severe intervertebral disc space narrowing with broad-based posterior disc osteophyte complex and moderate facet arthrosis. Mild central canal and mild left foraminal narrowing. The right foramen is generally patent. No significant change. C7-T1: Mild uncovertebral spurring and mild intervertebral disc space narrowing with moderate facet arthrosis. No central canal or foraminal narrowing. T1-T2: Moderate intervertebral disc space narrowing with broad-based posterior disc osteophyte complex flattens the ventral thecal sac. No significant central canal or foraminal narrowing. Discogenic degenerative changes are also noted within the remaining imaged upper thoracic levels without high-grade central canal narrowing identified. IMPRESSION: 1. Progressively worsened discogenic degenerative changes of the cervical spine as above. 2. At C5-C6 there is severe intervertebral disc space narrowing with circumferential disc osteophyte complex and moderate facet arthrosis causing mild central canal, mild left foraminal and moderate to severe right foraminal narrowing. 3. Mild central canal stenosis is present at C4-C5 and C6-C7 as well. 4. No acute fracture or focal bone marrow edema. 5. Cardiomegaly with fusiform aneurysmal dilation of the ascending thoracic aorta redemonstrated, measuring approximately 5.0 cm. The above report was generated using voice recognition software. It may contain grammatical, syntax or spelling errors. Electronically signed by: Alexx Foster M.D. 07/31/2017 7:30 AM Dictated Date/Time: 07/31/2017 7:19 AM The status of this report is Signed. Draft = Not yet reviewed or approved by Radiologist. Signed = Reviewed and approved by Radiologist. <AttendingPhy>Leny Breen, DO</AttendingPhy> <FamilyPhy>Will Arredondo D.O.</FamilyPhy> <PrimaryPhy>Will Arredondo D.O.</PrimaryPhy> <UnitNumber> [id number]</UnitNumber> <VisitNumber>[id number]</VisitNumber> <PatientName> GRETTA PRAJAPATI</PatientName> <DateOfBirth>1950</DateOfBirth> <Location> C.MS2W</Location> <ServiceDate>07/29/17</ServiceDate> <MNE>ESINDI</MNE> < OrderingPhy>Leny Breen DO</OrderingPhy> <OrderingPhyMNE>f rep ord dr rodriguez< /OrderingPhyMNE> <DictatingPhyMNE>f rep dict dr rodriguez</DictatingPhyMNE> <CCListMNE >f rep ct mne</CCListMNE> <AdmittingPhyMNE>f pt admit dr rodriguez</AdmittingPhyMNE> < AttendingPhyMNE>f pt attend dr rodriguez</AttendingPhyMNE> <ConsultingPhyMNE>f pt consult dr rodriguez</ConsultingPhyMNE> <FamilyPhyMNE>f pt fam dr rodriguez</FamilyPhyMNE> <OtherPhyMNE>f pt other dr rodriguez</OtherPhyMNE> < PrimaryPhyMNE>f pt prim care dr rodriguez</PrimaryPhyMNE> <ReferringPhyMNE>f pt referring dr rodriguez</ReferringPhyMNE> Assessment & Plan Assessment: Right upper extremity cervical radiculopathy, moderate to severe right-sided C5 6 neural foraminal stenosis. Possible double crush syndrome. Plan: I do feel the patient is possibly suffering from a double crush syndrome including cervical radiculopathy as well as possible ulnar nerve entrapment. I agree with pursuing EMG studies. I believe this can be performed on an outpatient basis. Patient is quite anxious to go home as soon as possible. There is no urgent surgical intervention warranted at this point time. We're happy to follow her up at the office on an outpatient basis to review things more in detail and hopefully at that time she'll have her EMG study as well. Patient relayed understanding to this. She'll follow up in the office. . Please hesitate to contact us if if any further questions.
[2017-07-31] MEDS ORDERED: NRN/300 PO (15:29)
[2017-07-31] MEDS ORDERED: TRAM-10 PO (15:29)
[2017-07-31] MEDS ORDERED: BUSP1TAB46 PO (15:29)
--- NOTE | 2017-07-31 15:43 | Discharge Instructions ---
Discharge Instructions Date of Service Jul 31, 2017. Admission Reason for Admission: Chest Pain, Thoracic Aortic Aneurysm Discharge Discharge Diagnosis / Problem: chest pain-resolved, Anxiety, Thoracic Aortic Aneurysm, cervical disease Discharge Goals Goal(s): Prevent Disease Progression Activity Recommendations Activity Limitations: per Instructions/Follow-up section . Instructions / Follow-Up Instructions / Follow-Up Please take all medications as instructed. You were placed on Neurontin (gabapentin) which can be increased slowly by your physician as needed to help with pain control. You will need to follow-up with someone from Psychiatry as outpatient. ASCENCION Short was who was seeing you here at [facility]. A referral can be provided through your primary care physician's (PCP) office. You were recommended to undergo an outpatient EMG on your right arm. This will need to be set up through your PCP office. As we discussed, Neurology (Dr. Salazar) is an option on where you can get this done. You were seen by Dr. Celestino Ronquillo from [facility] while in the hospital. He would like you to follow-up with him as an outpatient after the EMG results are finalized to discuss further treatment options. You may obtain a referral for Pain Management through your PCP office. The same goes for Dr. Jesús Damon from [facility] (or Dara Pack PA-C). Please ensure follow -up with him after EMG results are back for further treatment options. Their office number is [phone]. You have an appointment with Dr. Tripp (Dr. Gomez was unavailable) set for 08/05 @ 10:45am for follow-up from this hospitalization. It was a pleasure taking care of you! Call if you have any questions or problems. You can reach a [place] [facility] hospitalist on duty at [facility] 24 hours a day by calling [phone]. Take care of yourself. Leny Breen DO [facility] Hospitalist Current Hospital Diet Patient's current hospital diet: AHA Diet (Heart Healthy) Discharge Diet Recommended Diet: AHA Diet (Heart Healthy) Procedures Procedures Performed: None. Pending Studies Studies pending at discharge: no Medical Emergencies . Who to Call and When: Medical Emergencies: If at any time you feel your situation is an emergency, please call 911 immediately. . Non-Emergent Contact Non-Emergency issues call your: Primary Care Provider . . "Provider Documentation" section prepared by Leny Breen. . VTE Core Measure Inpt VTE Proph given/why not?: Enoxaparin (Lovenox)SQ [place] Drug Monitoring Program Search Results: patient reviewed within database, no issues identified
--- NOTE | 2017-07-31 15:47 | Discharge Summary ---
Discharge Summary Date of Service Jul 31, 2017. Discharge Summary Admission Date: Jul 30, 2017 at 17:10 Discharge Date: Jul 31, 2017 Discharge Disposition: Home Principal Diagnosis: Chest tightness likely related to R arm pain and anxiety-noncardiac etiology R arm pain poss 2/2 double crush syndrome Cervical Degenerative Disease-progressed Asthma HTN BRANDIE RLS Depression/Anxiety Fibromyalgia Hypothyroidism h/o gastric bypass surgery Procedures: MRI CERVICAL WITHOUT CONTRAST HISTORY: 67 years-old Female Neck and R shoulder/arm pain with ulnar numbness, h/o deg change acute neck, right shoulder and right arm pain with ulnar numbness COMPARISON: Cervical spine MR 01/23/2014, CTA of the chest 07/29/2017 TECHNIQUE: Multiplanar multisequence MRI the cervical spine was obtained without contrast. 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 Signal within the cervical spinal cord is within normal limits. The imaged posterior fossa structures are unremarkable. There is no focal bone marrow edema, fracture or subluxation identified. Multilevel degenerative changes are noted as described below. C2-C3: Mild uncovertebral spurring and mild intervertebral disc space narrowing with minimal facet arthrosis. No central canal or foraminal narrowing. C3-C4: Mild intervertebral disc space narrowing and uncovertebral spurring with mild facet arthrosis. There is slight flattening of the ventral thecal sac without significant central canal or foraminal stenosis. C4-C5: Moderate intervertebral disc space narrowing with broad-based posterior disc osteophyte complex formation and moderate facet arthrosis with small left facet effusion. These changes have progressively worsened from prior study and causes mild central canal and mild right foraminal narrowing. Left foramen appears patent. C5-C6: Severe intervertebral disc space narrowing with circumferential disc osteophyte complex and moderate facet arthrosis. Findings cause mild central canal, mild left foraminal and moderate to severe right foraminal narrowing. These findings have also progressed and worsened. C6-C7: Severe intervertebral disc space narrowing with broad-based posterior disc osteophyte complex and moderate facet arthrosis. Mild central canal and mild left foraminal narrowing. The right foramen is generally patent. No significant change. C7-T1: Mild uncovertebral spurring and mild intervertebral disc space narrowing with moderate facet arthrosis. No central canal or foraminal narrowing. T1-T2: Moderate intervertebral disc space narrowing with broad-based posterior disc osteophyte complex flattens the ventral thecal sac. No significant central canal or foraminal narrowing. Discogenic degenerative changes are also noted within the remaining imaged upper thoracic levels without high-grade central canal narrowing identified. IMPRESSION: 1. Progressively worsened discogenic degenerative changes of the cervical spine as above. 2. At C5-C6 there is severe intervertebral disc space narrowing with circumferential disc osteophyte complex and moderate facet arthrosis causing mild central canal, mild left foraminal and moderate to severe right foraminal narrowing. 3. Mild central canal stenosis is present at C4-C5 and C6-C7 as well. 4. No acute fracture or focal bone marrow edema. 5. Cardiomegaly with fusiform aneurysmal dilation of the ascending thoracic aorta redemonstrated, measuring approximately 5.0 cm. Vaccinations: None. Consultations: [facility] PT/OT Pending Studies/Follow-Up: see instructions below. Medication Reconciliation New Medications: Gabapentin (Neurontin) 300 Mg Cap 1 CAP PO HS for 30 Days, #30 CAP 0 Refills Tramadol (Ultram) 50 Mg Tab 50 MG PO Q4H PRN for severe pain for 30 Days, #60 TAB Buspirone Hcl (Buspirone Hcl) 7.5 Mg Tab 1 TAB PO BID for 30 Days, #60 TAB Continued Medications: Albuterol Inhaler (Ventolin Inhaler) Aers 2 PUFFS INH TID, #5 INHALER Atorvastatin (Lipitor) 20 Mg Tab 20 MG PO DAILY, TAB Biotin (Biotin) 1,000 Mcg Tab 500 MCG PO BID Carbidopa/Levodopa (Sinemet 25MG/100MG) Tab 1 TAB PO QID, 0 Refills Cholecalciferol (Vitamin D) 2,000 Unit Tab 2000 UNITS PO DAILY Cyanocobalamin (Vitamin B-12) 1,000 Mcg Sub 1000 MCG PO MONTHLY Diclofenac Sodium (Topical) (Voltaren 1% Top Gel) 1 % Gel 1 APPLN TOP QID Ergocalciferol (Vitamin D 51973 Unit) 50,000 Unit Cap 1 CAP PO WK for 28 Days, #4 CAP 5 Refills TAKE EACH SATURDAY Fish Oil ([place]escott-3) 1 Ea Cap 1 CAP PO BID, CAP Fluticasone Propionate (Flovent Hfa) 120 Puffs/96745 Mcg Aero 2 PUFFS INH BID for 30 Days, #1 INHALER 2 Refills Fluticasone Propionate (Nasal) (Flonase Allergy Relief) 50 Mcg/Act Spr 2 PUFF INH BID Furosemide (Lasix) 40 Mg Tab 40 MG PO QAM, TAB Furosemide (Lasix) 20 Mg Tab 20 MG PO HS PRN for EDEMA, #30 TAB Home O2 Therapy (Oxygen) Gas 2 LITERS NA UD USE DURING ALL PERIODS OF SLEEP. Ibandronate Sodium (Boniva) 150 Mg Tab 150 MG PO MONTHLY, TAB Ipratropium Ferdinand (Nasal) (Ipratropium Ferdinand) 0.03 % Spr 1 SPRAY ELYSE QID PRN for Nasal Congestion Levothyroxine Sodium (Synthroid) 50 Mcg Tab 50 MCG PO QAM, TAB Lorazepam (Ativan) 0.5 Mg Tab 0.5 MG PO DAILY PRN for ANXIETY, #30 TAB Magnesium Oxide (Mg Supplement (Magnesium) 500 Mg Tab 500 MG PO DAILY Metaxalone (Skelaxin) 800 Mg Tab 800 MG PO QID, TAB TAKE THIS MEDICATION ON AN EMPTY STOMACH. Metoprolol Tartrate (Lopressor) (Lopressor) 25 Mg Tab 25 MG PO BID, TAB Multiple Vitamins W/ Minerals (Preservision Areds) 1 Cap Cap 1 CAP PO BID Omeprazole (Prilosec) 20 Mg Capcr 20 MG PO DAILY TAKE THIS MEDICATION TWICE DAILY ONE HOUR BEFORE A MEAL. Ondansetron Hcl (Zofran) 4 Mg Tab 4 MG PO Q6H PRN for Nausea, TAB Oyster Shell (Calcium) 500 Mg Tab 500 MG PO BID Pediatric Multiple Vitamin W/ (Flintstones Chewable) 1 Chw Chw 1 TAB PO QAM, TAB PLUS IRON Potassium Chloride (Klor-Con M20) 20 Meq Tabcr 20 MEQ PO DAILY, #30 Ropinirole (Requip) 0.5 Mg Tab 0.5 MG PO TID, TAB TAKE THIS MEDICATION WITH FOOD. Ropinirole (Requip) 0.5 Mg Tab 0.5-2 MG PO HS, TAB Senna/Docusate Sod (Senokot S) 1 Tab Tab 1 TAB PO BID, TAB Triamcinolone Acet (Aristocort 0.1%) 90 Appln/30 Gm Cr 1 APPLN TOP BID Admission Information HPI (per Admitting provider): HISTORY OF PRESENT ILLNESS: This 67-year-old female with past medical history significant for ascending aortic aneurysm, asthma, osteoporosis, restless leg syndrome, depression, fibromyalgia, hypothyroidism, hyperlipidemia, hypertension, history of gastric bypass surgery, intestinal malabsorption following gastrectomy, obstructive sleep apnea on CPAP, gastroparesis, , lower extremity edema, presents with chest pain. The patient is following closely with cardiology for ascending thoracic aortic aneurysm and she recently saw cardiology and she also having lower extremity edema for which she was started on Lasix. She was supposed to get CTA of the chest to see the size of the aneurysm and there is a plan for evaluation by CT surgery soon. She also recently had Lexiscan nuclear stress test which was unremarkable. The patient today at home while she was taking the books out from the shelf she noticed chest pain, about 7/10 in severity, radiating to her left arm. She got worried and came to the ER. She received nitro and fentanyl in the ER and the pain is improved but the chest pain still comes on and off. Whenever she gets chest pain, she gets short of breath and cough and currently she has some headaches, dizziness on and off. No blurred visions. No sore throat, no earaches. She says on and off she gets difficulty swallowing. She feels like food stuck in the middle of the chest and she has to drink water to pass it through. This is going on for some time. Denies any abdominal pain, no nausea, no vomiting. Normal bowel and bladder movements. No blood in the stool, no blood in the urine. No burning micturition. Appetite is okay. She has swelling of the lower extremity. Physical Exam (per Admitting): PHYSICAL EXAMINATION: GENERAL: The patient is obese, not in distress. VITAL SIGNS: Temperature 36.7, pulse 70, respiratory rate 17, blood pressure 176/70, oxygen 92% on room air. HEENT: No pallor, no icterus. Pupils equal, round react to light. NECK: No JVD, no neck masses, no carotid bruits. CARDIOVASCULAR: S1, S2 heard, regular rate and rhythm, no murmur, no gallop. RESPIRATORY SYSTEM: Normal AP diameter. No accessory muscle use. No wheezing or crackles. ABDOMEN: Soft, bowel sounds present. Nontender. No distention. CENTRAL NERVOUS SYSTEM: Cranial nerves II-XII grossly intact. Nonfocal. EXTREMITIES: Lower extremity edema present. No erythema seen. Hospital Course 67 yoF presents with R arm numbness and pain after moving some books that was associated with some chest tightness. In the setting of known thoracic aneurysm , she was admitted and ruled out for LA and dissection. workup for those issues is negative at this time. 1. Chest tightness-resolved, serial cardiac enzymes are negative and EKG nonischemic. Recent Lexiscan nuclear test as outpatient was also normal. Ascending thoracic aortic aneurysm is slightly enlarged but CT reveals no dissection and she is hemodynamically stable. Transferred off telemetry 2. R arm pain associated with bilateral ulnar hand numbness that is bilateral and multiple muscle spasms with minimal movement. Pt denies trauma to her neck or arm. She is on skelaxin and review of outpatient records reveals a R shoulder MRI in 2012 showing rotator cuff tendinopathy without tears. She also had a c-spine MRI in Aug 2015 revealing progressive degenerative changes resulting in spinal canal and neuroforaminal narrowing. Her exam is very limited by pain and ROM is poor. Spurlings appears to be positive. C-spine ROM appears to be symmetric. She reports that the pain is very limiting for her and is acute. MRI c-spine performed revealing progressive degenerative changes including central and neuroformainal stenosis. She reports Tramadol does not help and she cannot take NSAIDs because of her h/o gastric bypass. She is fine with a trial of scheduled Tylenol which ultimately wasn't helpful for her. Valium was considered, especially in the setting of significant anxiety, but has an interaction with skelaxin. Mental Health was consulted and started her on low dose Buspar for anxiety. Orthopedics evaluation revealed a possible double crush syndrone related to RUE cervical radiculopathy and a possible ulnar nerve entrapment and recommended pursuing EMG studies as an outpatient. She was instructed to follow-up with Ortho spine as outpatient once this was complete. Pain Management evaluated her and recommended medication changes that she was leary of so they also requested that she follow- up with them as outpatient when she had completed the EMG studies. 3. Asthma-controlled, no wheezing or SOB. Cont Flovent and Albuterol PRN 4. HTN-controlled, cont Toprol XL 5. History of obstructive sleep apnea on CPAP and oxygen at nighttime. 6. Restless leg syndrome on Requip. 7. Depression and fibromyalgia, currently not on any medication. 8. Hypothyroidism, on Synthroid. 9. History of gastric bypass surgery On day of discharge she was mentating and ambulating at baseline and was tolerating PO. She was afebrile and hemodynamically stable. Physical exam was remarkable for limited ROM of R arm but enough to function safely at home and with notable improvement from the day prior. She was sent home in stable condition. DO [facility] Total time spent on discharge = 60 minutes This includes examination of the patient, discharge planning, medication reconciliation, and communication with other providers. Discharge Instructions [facility] [address] [place] [address] Discharge Medical Patient Name: Bonnie Oneal Unit Number: [id number] Date of : 1950 Patient Status: Admitted Inpatient Attending Doctor: Leny Breen DO DI: Medical v4 Discharge Instructions Date of Service Jul 31, 2017. Admission Reason for Admission: Chest Pain, Thoracic Aortic Aneurysm Discharge Discharge Diagnosis / Problem: chest pain-resolved, Anxiety, Thoracic Aortic Aneurysm, cervical disease Discharge Goals Goal(s): Prevent Disease Progression Activity Recommendations Activity Limitations: per Instructions/Follow-up section . Instructions / Follow-Up Instructions / Follow-Up Please take all medications as instructed. You were placed on Neurontin (gabapentin) which can be increased slowly by your physician as needed to help with pain control. You will need to follow-up with someone from Psychiatry as outpatient. ASCENCION Short was who was seeing you here at [facility]. A referral can be provided through your primary care physician's (PCP) office. You were recommended to undergo an outpatient EMG on your right arm. This will need to be set up through your PCP office. As we discussed, Neurology (Dr. Salazar) is an option on where you can get this done. You were seen by Dr. Celestino Ronquillo from [facility] while in the hospital. He would like you to follow-up with him as an outpatient after the EMG results are finalized to discuss further treatment options. You may obtain a referral for Pain Management through your PCP office. The same goes for Dr. Jesús Damon from [facility] (or Dara Pack PA-C). Please ensure follow -up with him after EMG results are back for further treatment options. Their office number is [phone]. You have an appointment with Dr. Tripp (Dr. Gomez was unavailable) set for 08/05 @ 10:45am for follow-up from this hospitalization. It was a pleasure taking care of you! Call if you have any questions or problems. You can reach a [facility] hospitalist on duty at [facility] 24 hours a day by calling [phone]. Take care of yourself. Leny Breen DO [facility] Hospitalist Current Hospital Diet Patient's current hospital diet: AHA Diet (Heart Healthy) Discharge Diet Recommended Diet: AHA Diet (Heart Healthy) Procedures Procedures Performed: None. Pending Studies Studies pending at discharge: no Medical Emergencies . Who to Call and When: Medical Emergencies: If at any time you feel your situation is an emergency, please call 911 immediately. . Non-Emergent Contact Non-Emergency issues call your: Primary Care Provider . . "Provider Documentation" section prepared by Leny Breen. . VTE Core Measure Inpt VTE Proph given/why not?: Enoxaparin (Lovenox) [place] Drug Monitoring Program Search Results: patient reviewed within database, no issues identified Additional Copies To Jocy Tripp D.O.; Lavern Gomez D.O.
[2017-07-31 17:51] VITALS: BP 92/42; PULSE 59; TEMP 36.5; O2SAT 98
== END 2017-07-31 18:00 | disposition home or self-care (01) | DRG 552 ==
LOC: C.EDC 17:27 → C.2T 22:06 → EDBEDREQ 22:13 → ENRESERV 22:18 → OBSVTOIN 07-30 17:10 → ENRESERV 07-30 18:07 → C.MS2W 07-30 19:56
PROVIDERS: ADMIT Hospitalist; ATTEND Hospitalist
DX: M50.122 Cervical disc disorder at C5-C6 level with radiculopathy (principal); I71.2 Thoracic aortic aneurysm, without rupture; M47.22 Other spondylosis with radiculopathy, cervical region; M48.02 Spinal stenosis, cervical region; G56.21 Lesion of ulnar nerve, right upper limb; M62.838 Other muscle spasm; F41.1 Generalized anxiety disorder; J45.30 Mild persistent asthma, uncomplicated; I10 Essential (primary) hypertension; R60.0 Localized edema; G47.33 Obstructive sleep apnea (adult) (pediatric); G25.81 Restless legs syndrome; F32.9 Major depressive disorder, single episode, unspecified; M79.7 Fibromyalgia; E78.5 Hyperlipidemia, unspecified; E03.9 Hypothyroidism, unspecified; M81.0 Age-related osteoporosis without current pathological fracture; Z99.81 Dependence on supplemental oxygen; Z98.84 Bariatric surgery status; Z86.010 Personal history of colon polyps; Z86.39 Personal history of other endocrine, nutritional and metabolic disease; Z86.69 Personal history of other diseases of the nervous system and sense organs; Z81.1 Family history of alcohol abuse and dependence; Z81.2 Family history of tobacco abuse and dependence; Z81.8 Family history of other mental and behavioral disorders; Z83.49 Family history of other endocrine, nutritional and metabolic diseases; Z82.61 Family history of arthritis; Z82.5 Family history of asthma and other chronic lower respiratory diseases; Z83.3 Family history of diabetes mellitus; Z83.2 Family history of diseases of the blood and blood-forming organs and certain disorders involving the immune mechanism; Z83.511 Family history of glaucoma; Z83.518 Family history of other specified eye disorder; Z83.79 Family history of other diseases of the digestive system; Z82.49 Family history of ischemic heart disease and other diseases of the circulatory system; Z82.3 Family history of stroke; Z79.51 Long term (current) use of inhaled steroids; Z79.83 Long term (current) use of bisphosphonates

== ENCOUNTER 2017-09-06 14:03 | Emergency (ER) | payer OTHER ==
[~2017-09-06] VITALS: Ht 154.9 cm; Wt 105.9 kg
[~2017-09-06 14:03] MED LIST changes: +FLVHFA110 INH; +FRS/40 PO; +FURO-85 PO; +LINA72CA PO; +MCRK20 PO
[2017-09-06 14:15] VITALS: Ht 154.9 cm; Wt 105.9 kg
[2017-09-06] MEDS ORDERED: ACETAMINOPHEN 325 MG TAB PO STA (14:56)
[2017-09-06] MEDS ORDERED: VNTHFA/IN INH (14:58)
--- NOTE | 2017-09-06 15:10 | DIAGNOSTIC IMAGING REPORT ---
HEAD WITHOUT CONTRAST (CT) CT DOSE: 729.78 mGycm HISTORY: Trauma fall TECHNIQUE: Multiaxial CT images of the head were performed without the use of intravenous contrast. A dose lowering technique was utilized adhering to the principles of ALARA. Comparison: 01/22/2016 Findings: The paranasal sinuses and mastoid air cells are clear. The calvarium and skull base are intact. The ventricles and sulci are within normal limits. There is no mass, hematoma, midline shift, or acute infarct. Impression: No acute intracranial abnormality. The above report was generated using voice recognition software. It may contain grammatical, syntax or spelling errors. Electronically signed by: Checo Brock M.D. 09/06/2017 3:09 PM Dictated Date/Time: 09/06/2017 3:08 PM
--- NOTE | 2017-09-06 15:14 | DIAGNOSTIC IMAGING REPORT ---
CERVICAL SPINE W/O CLINICAL HISTORY: 67 years-old Female presenting with fall. TECHNIQUE: Multidetector CT of the cervical spine was performed without the use of intravenous contrast. IV contrast: None. A dose lowering technique was used consistent with the principles of ALARA (as low as reasonably achievable). COMPARISON: Plain radiographs from 07/31/2017. CT DOSE (mGy.cm): The estimated cumulative dose is 537.30 mGycm. FINDINGS: Special Education Paraprofessional topogram: Unremarkable. Slight straightening of normal cervical lordosis likely degenerative in etiology. No acute fracture or malalignment. Vertebral bodies demonstrate mild height loss at C5 and C6, likely degenerative in etiology. No compression deformity. Intervertebral disc height loss also noted at C5-6 and C6-7, where there is mild posterior bony spurring. Less pronounced disc osteophyte complex noted at C4-5. Mild osseous neural foraminal narrowing noted bilaterally at C5-6 secondary to disc osteophyte complex/uncovertebral hypertrophy. Skull base intact. Lung apices clear. Soft tissues of the neck within normal limits allowing for noncontrast technique. IMPRESSION: 1. No acute osseous injury of the cervical spine. 2. Multilevel degenerative changes. Electronically signed by: Dom Frazier M.D. 09/06/2017 3:13 PM Dictated Date/Time: 09/06/2017 3:10 PM
--- NOTE | 2017-09-06 16:12 | EMERGENCY ROOM VISIT NOTE ---
History Report prepared by Sathya: Hernan Oates Under the Supervision of: Miladys WaltersO. First contact with patient: 14:27 Chief Complaint: FALL Stated Complaint: FALL History of Present Illness The patient is a 67 year old female who presents to the Emergency Room with complaints of a sudden mechanical fall that occurred earlier this afternoon. She states that she tripped over her shoe, and fell face-forward, putting her hands out and hitting her elbows on the ground. She adds that her "head bounced up and down". The patient notes that she has had persistent resulting left arm pain, with upper back and right shoulder pain. She adds that the back of her "head feels weird". She does not think that she hit her head on the ground however. She says that she does not think she broke anything. 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 She takes 81 mg Aspirin daily but no other blood thinners. Source of History: patient Onset: Earlier this afternoon Position: other (global) Symptom Intensity: fell face forward Quality: other (mechanical fall) Timing: other (sudden) Associated Symptoms: + back pain (upper) Note: Associated symptoms: Right shoulder pain, left arm pain. Back of "head feels weird". Review of Systems See HPI for pertinent positives & negatives. A total of 10 systems reviewed and were otherwise negative. Past Medical & Surgical Medical Problems: (1) Cholecystectomy (2) ISAC (generalized anxiety disorder) (3) Gastric Bypass (4) Hypertension Nos (5) Obesity (6) Pancreatitis (7) Right shoulder pain (8) Thoraco abdominal aneurysm Surgical Problems: (1) S/P hysterectomy Family History CVA Cancer Diabetes mellitus Heart disease Hypertension Kidney disease Kidney stones Lung disease TIAs GRANDMOTHER MOTHER Social History Smoking Status: Never Smoker Alcohol Use: occasionally Marital Status: single Housing Status: lives alone Occupation Status: employed Current/Historical Medications Scheduled Albuterol Hfa (Ventolin Hfa), 2-4 PUFFS INH Q6H Atorvastatin (Lipitor), 20 MG PO DAILY Biotin (Biotin), 500 MCG PO BID Carbidopa/Levodopa (Sinemet 25MG/100MG), 1 TAB PO QID Cholecalciferol (Vitamin D), 2,000 UNITS PO DAILY Cyanocobalamin (Vitamin B-12), 1,000 MCG PO MONTHLY Diclofenac Sodium (Topical) (Voltaren 1% Top Gel), 1 APPLN TOP QID Ergocalciferol (Vitamin D 60566 Unit), 1 CAP PO WK Fish Oil ([place]-3), 1 CAP PO BID Fluticasone Propionate (Flovent Hfa), 2 PUFFS INH BID Fluticasone Propionate (Nasal) (Flonase Allergy Relief), 2 PUFF INH BID Furosemide (Lasix), 40 MG PO QAM Home O2 Therapy (Oxygen), 2 LITERS NA UD Ibandronate Sodium (Boniva), 150 MG PO MONTHLY Levothyroxine Sodium (Synthroid), 50 MCG PO QAM Linaclotide (Linzess), 1 TAB PO DAILY Magnesium Oxide (Mg Supplement (Magnesium), 500 MG PO DAILY Metaxalone (Skelaxin), 800 MG PO QID Metoprolol Tartrate (Lopressor) (Lopressor), 25 MG PO BID Multiple Vitamins W/ Minerals (Preservision Areds), 1 CAP PO BID Omeprazole (Prilosec), 20 MG PO DAILY Oyster Shell (Calcium), 500 MG PO BID Pediatric Multiple Vitamin W/ (Flintstones Chewable), 1 TAB PO QAM Potassium Chloride (Klor-Con M20), 20 MEQ PO DAILY Ropinirole (Requip), 0.5 MG PO TID Ropinirole (Requip), 0.5-2 MG PO HS Senna/Docusate Sod (Senokot S), 1 TAB PO BID Triamcinolone Acet (Aristocort 0.1%), 1 APPLN TOP BID Scheduled PRN Furosemide (Lasix), 20 MG PO HS PRN for EDEMA Ipratropium [place] (Nasal) (Ipratropium [place]), 1 SPRAY ELYSE QID PRN for Nasal Congestion Ondansetron Hcl (Zofran), 4 MG PO Q6H PRN for Nausea Allergies Coded Allergies: Buspirone (Verified Allergy, Severe, NEURO COMPLICATIONS, 09/06/17) Lisinopril (Verified Allergy, Intermediate, cough, 09/06/17) Ammonia (Verified Allergy, Unknown, SWELLING, 09/06/17) Duloxetine (Verified Allergy, Unknown, RASH ITCHING, 09/06/17) Dust (Verified Allergy, Unknown, ROACHES,DUST MITES-CLOGGED UP SINUSES-CAN 'T BREATHE, 09/06/17) NSAIDs (Verified Allergy, Unknown, not supposed to use-S/P GASTRIC BYPASS , 09/06/17) Venlafaxine (Verified Allergy, Unknown, AFFECTS LEGS, 09/06/17) Diphenhydramine (Verified Adverse Reaction, Unknown, RESTLESS LEGS, 09/06/17 ) Physical Exam Vital Signs Date Time Temp Pulse Resp B/P (MAP) Pulse Ox O2 Delivery O2 Flow Rate FiO2 09/06/17 16:19 73 16 136/68 96 09/06/17 14:15 64 20 133/91 96 Room Air Physical Exam CONSTITUTIONAL/VITAL SIGNS: Reviewed / noted above. GENERAL: Non-toxic in appearance. INTEGUMENTARY: Warm, dry, and [place]. HEAD: Normocephalic. EYES: without scleral icterus or trauma. ENT/OROPHARYNX: clear and moist. LYMPHADENOPATHY/NECK: Is supple without lymphadenopathy or meningismus. RESPIRATORY: Lungs clear and equal. CARDIOVASCULAR: Regular rate and rhythm. GI/ABDOMEN: Soft and nontender. No organomegaly or pulsatile mass. No rebound or guarding. Normal bowel sounds. EXTREMITIES: Full range of motion with upper extremities, no palpable deformities. Left wrist: no tenderness with axial loading of thumb. No navicular tenderness. Warm and well perfused. BACK: No CVA tenderness. NEUROLOGICAL: Intact without focal deficits. PSYCHIATRIC: normal affect. MUSCULOSKELETAL: Normally developed with good muscle tone. Medical Decision & Procedures ER Provider Diagnostic Interpretation: CT results as stated below per my review and radiologist interpretation: HEAD WITHOUT CONTRAST (CT) CT DOSE: 729.78 mGycm HISTORY: Trauma fall TECHNIQUE: Multiaxial CT images of the head were performed without the use of intravenous contrast. A dose lowering technique was utilized adhering to the principles of ALARA. Comparison: 01/22/2016 Findings: The paranasal sinuses and mastoid air cells are clear. The calvarium and skull base are intact. The ventricles and sulci are within normal limits. There is no mass, hematoma, midline shift, or acute infarct. Impression: No acute intracranial abnormality. The above report was generated using voice recognition software. It may contain grammatical, syntax or spelling errors. Electronically signed by: Checo Brock M.D. 09/06/2017 3:09 PM Dictated Date/Time: 09/06/2017 3:08 PM CERVICAL SPINE W/O CLINICAL HISTORY: 67 years-old Female presenting with fall. TECHNIQUE: Multidetector CT of the cervical spine was performed without the use of intravenous contrast. IV contrast: None. A dose lowering technique was used consistent with the principles of ALARA (as low as reasonably achievable). COMPARISON: Plain radiographs from 07/31/2017. CT DOSE (mGy.cm): The estimated cumulative dose is 537.30 mGycm. FINDINGS: Transformer Maker topogram: Unremarkable. Slight straightening of normal cervical lordosis likely degenerative in etiology. No acute fracture or malalignment. Vertebral bodies demonstrate mild height loss at C5 and C6, likely degenerative in etiology. No compression deformity. Intervertebral disc height loss also noted at C5-6 and C6-7, where there is mild posterior bony spurring. Less pronounced disc osteophyte complex noted at C4-5. Mild osseous neural foraminal narrowing noted bilaterally at C5-6 secondary to disc osteophyte complex/uncovertebral hypertrophy. Skull base intact. Lung apices clear. Soft tissues of the neck within normal limits allowing for noncontrast technique. IMPRESSION: 1. No acute osseous injury of the cervical spine. 2. Multilevel degenerative changes. Electronically signed by: Dom Frazier M.D. 09/06/2017 3:13 PM Dictated Date/Time: 09/06/2017 3:10 PM Medications Administered Medications (Trade) Dose Ordered Sig/Caesar Route Start Time Stop Time Status Last Admin Dose Admin Acetaminophen (Tylenol Tab) 650 mg NOW STAT PO 09/06/17 14:56 09/06/17 14:57 DC 09/06/17 15:19 650 MG ED Course 1428: Previous medical records were reviewed. The patient was evaluated in room B10. A complete history and physical examination was performed. 1456: Ordered Tylenol Tab 650 mg PO. 1614: On reevaluation, the patient is resting comfortably. I discussed the results and findings with the patient. She verbalized agreement of the treatment plan. She was discharged home. Medical Decision Differentials include: Close head injury, intracranial bleed, facial trauma, cervical spine trauma, chest and thoracic trauma, abdominal and intra-abdominal trauma, spine neurologic trauma, and extremity trauma. This is a 67-year-old female who presents to the ED with a chief complaint of fall. The patient states that she has clubfeet. She today tripped over her shoes and fell. She complained of some discomfort in the right elbow, right shoulder, left wrist as well as left posterior neck and head. The patient denies neck she striking her head or loss of consciousness. She has a mild headache and neck pain. Her exam reveals normal vital signs. Extremity exam did not reveal any obvious fractures or limitation of range of motion. She has no navicular tenderness or axial loading tenderness to the left wrist area. The patient otherwise has a very minimal abrasion on the right elbow. She has full range of motion there. No obvious fractures. CT scan of the brain did not show acute process nor did a CT scan of the cervical spine. The patient does not feel anything is broken. She was felt to be stable for discharge. Medication Reconcilliation Current Medication List: was personally reviewed by me Blood Pressure Screening Patient's blood pressure: Elevated blood pressure Blood pressure disposition: Elevated BP felt to be situational Impression Primary Impression: Fall Additional Impression: Contusion of multiple sites Scribe Attestation The scribe's documentation has been prepared under my direction and personally reviewed by me in its entirety. I confirm that the note above accurately reflects all work, treatment, procedures, and medical decision making performed by me. Departure Information Dispostion Home / Self-Care Referrals Lavern Gomez D.O. (PCP) Patient Instructions My [facility] Additional Instructions Follow-up with your doctor for further care and evaluation in 1-2 days. Return to the emergency department for worsening or new symptoms or any concerns. You have been examined and treated today on an emergency basis only. This is not a substitute for, or an effort to provide, complete comprehensive medical care. It is impossible to recognize and treat all injuries or illnesses in a single emergency department visit. It is therefore important that you follow up closely with your doctor. Call as soon as possible for an appointment. Problem Qualifiers
[2017-09-06 16:19] VITALS: BP 136/68; PULSE 73; O2SAT 96
== END 2017-09-06 16:20 | disposition home or self-care (01) ==
LOC: EDBD 14:03 → C.EDB 14:04
DX: T14.8XXA Other injury of unspecified body region, initial encounter (principal); R51 Headache; M79.602 Pain in left arm; M54.6 Pain in thoracic spine; M25.511 Pain in right shoulder; I10 Essential (primary) hypertension; F41.1 Generalized anxiety disorder; Z79.899 Other long term (current) drug therapy; Z99.81 Dependence on supplemental oxygen; Z88.6 Allergy status to analgesic agent; Z88.8 Allergy status to other drugs, medicaments and biological substances; Z91.048 Other nonmedicinal substance allergy status; W19.XXXA Unspecified fall, initial encounter

== ENCOUNTER → 2017-09-23 | Day surgery (SDC) | payer OTHER ==
[2017-09-18 07:59] VITALS: BMI 42.0
[~2017-09-23] VITALS: Ht 154.9 cm; Wt 100.0 kg
[~2017-09-23] MED LIST changes: -ALBUAER19 INH; +ASPCH81X PO; -FLUT0.15 INH; +FLUT0.15 NAE; -FURO-85 PO; +LIDOCAINE HCL 2% 2 ML VIAL (20MG/ML) ONE; -MCRK20 PO; +MIDAZOLAM HCL 1 MG/ML 2ML VIAL ONE; +ONDANSETRON INJ 2 MG/ML 2 ML VIAL ONE; -OXGN; +PEDICHW44 PO; -PEDICHW50 PO; +POTA10PO PO; +PROPOFOL IV EMULSION 10 MG/ML 20 ML VIAL IV ONE; +SODIUM CHLORIDE 0.9% 500ML 500 ML IV ONE; +VNTHFA/IN INH
[2017-09-23 07:48] VITALS: Ht 154.9 cm; Wt 100.0 kg
[2017-09-23 08:16] VITALS: TEMP 36.5
--- NOTE | 2017-09-23 08:32 | Endo History and Physical ---
History & Physical Date of Service: Sep 23, 2017. Chief Complaint: DYSPHAGIA Referring Physician: DR. BENOIT GIFFORD History of Present Illness Pt with dysphagia. Past Medical History Asthma, Anxiety, Reflux, Thyroid Disease, Depression Past Surgical History Hx Cardiac Surgery: No Hx Internal Defibrillator: No Hx Pacemaker: No Hx Abdominal Surgery: Yes (HYSTERECTOMY, GASTRIC BYPASS, TUMMY TUCK, BREAST REDUCTION, AMRIT X 3) Hx of Implantable Prosthesis: No Hx Post-Op Nausea and Vomiting: No Hx Cancer Surgery: No Hx Thoracic Surgery: No Hx Orthopedic: Yes (RT/LEFT TKA) Hx Urinary Tract Surgery: No Family History Colon CA, IBD Social History Smoking Status: Never Smoker Hx Substance Use: No Hx Alcohol Use: Yes (RARELY/COMMUNION ) Allergies Coded Allergies: Buspirone (Verified Allergy, Severe, NEURO COMPLICATIONS, 09/23/17) Lisinopril (Verified Allergy, Intermediate, cough, 09/23/17) Ammonia (Verified Allergy, Unknown, SWELLING, 09/23/17) Duloxetine (Verified Allergy, Unknown, RASH ITCHING, 09/23/17) Dust (Verified Allergy, Unknown, ROACHES,DUST MITES-CLOGGED UP SINUSES-CAN 'T BREATHE, 09/23/17) NSAIDs (Verified Allergy, Unknown, not supposed to use-S/P GASTRIC BYPASS , 09/23/17) Venlafaxine (Verified Allergy, Unknown, AFFECTS LEGS, 09/23/17) Diphenhydramine (Verified Adverse Reaction, Unknown, RESTLESS LEGS, ) Current Medications Reported Home Medications Medications Dose Route/Sig Max Daily Dose Days Date Category Dose Instructions Aspirin Chewable (Aspirin) 81 Mg Chew 81 Mg PO DAILY AT NOON 09/18/17 Reported Potassium Chloride 20 Meq Pow 1 Dose PO QAM 09/18/17 Reported WILL TAKE ADDITIONAL IF TAKING LASIX Flintstones Plus Iron (Pediatric Multiple Vitamins W/) 1 Chw Chw 1 Dose PO BID 09/18/17 Reported Flonase Allergy Relief (Fluticasone Propionate (Nasal)) 50 Mcg/Act Spr 2 [place] ELYSE BID 09/18/17 Reported Ventolin Hfa (Albuterol) 200 Puffs/09359 Mcg Aers 2-4 Puffs INH Q6H PRN 09/06/17 Reported USES 3X DAILY AND NEEDED FOR SOB Linzess (Linaclotide) 72 Mcg Cap 1 Tab PO QAM 09/03/17 Reported Flovent Hfa (Fluticasone Propionate) 120 Puffs/98100 Mcg Aero 2 Puffs INH BID 30 07/29/17 Rx Lasix (Furosemide) 40 Mg Tab 40 Mg PO DIRECTED 07/29/17 Reported LEG SWELLING Aristocort 0.1% (Triamcinolone Acet) 90 Appln/30 Gm Cr 1 Appln TOP BID PRN 07/18/17 Reported Ipratropium [place] (Ipratropium [place] (Nasal)) 0.03 % Spr 1 [place] ELYSE QID PRN 07/18/17 Reported Voltaren 1% Top Gel (Diclofenac Sodium (Topical)) 1 % Gel 1 Appln TOP QID 07/18/17 Reported Senokot S (Senna/Docusate Sodium) 1 Tab Tab 1 Tab PO BID 07/18/17 Reported Boniva (Ibandronate Sodium) 150 Mg Tab 150 Mg PO MONTHLY 07/18/17 Reported Vitamin D (Cholecalciferol) 2,000 Unit Tab 2,000 Units PO HS 07/18/17 Reported Vitamin D 66994 Unit (Ergocalciferol) 50,000 Unit Cap 1 Cap PO WK 28 07/18/17 Reported TAKE EACH SATURDAY Vitamin B-12 (Cyanocobalamin) 1,000 Mcg Sub 1,000 Mcg PO MONTHLY 07/18/17 Reported Magnesium (Magnesium Oxide (Mg Supplement) 500 Mg Tab 500 Mg PO HS 07/18/17 Reported [place]-3 (Fish Oil) 1 Ea Cap 1 Cap PO BID 07/18/17 Reported Preservision Areds (Multiple Vitamins W/ Minerals) 1 Cap Cap 1 Cap PO BID 07/18/17 Reported Calcium (Oyster Shell) 500 Mg Tab 500 Mg PO BID 07/18/17 Reported Lipitor (Atorvastatin Calcium) 20 Mg Tab 20 Mg PO HS 01/22/16 Reported Requip (Ropinirole HCl) 0.5 Mg Tab 0.5-2 Mg PO HS 01/22/16 Reported Lopressor (Metoprolol Tartrate) 25 Mg Tab 25 Mg PO BID 01/22/16 Reported Zofran (Ondansetron Hcl) 4 Mg Tab 4 Mg PO Q6H PRN 10/15/14 Reported Requip (Ropinirole HCl) 0.5 Mg Tab 0.5 Mg PO TID 03/04/14 Reported TAKE THIS MEDICATION WITH FOOD. Biotin 1,000 Mcg Tab 500 Mcg PO BID 01/21/14 Reported Synthroid (Levothyroxine Sodium) 50 Mcg Tab 50 Mcg PO QAM 08/07/12 Reported Skelaxin (Metaxalone) 800 Mg Tab 800 Mg PO QID 08/07/12 Reported TAKE THIS MEDICATION ON AN EMPTY STOMACH. Prilosec (Omeprazole) 20 Mg Capcr 20 Mg PO BID 06/05/11 Reported TAKE THIS MEDICATION TWICE DAILY ONE HOUR BEFORE A MEAL. Sinemet 25MG/100MG (Carbidopa/Levodopa) Tab 1 Tab PO QID 06/05/11 Reported Vital Signs Weight (Kilograms): 100.00 Height (Feet): 5 Height (Inches): 1 Date Time Temp Pulse Resp B/P (MAP) Pulse Ox O2 Delivery O2 Flow Rate FiO2 09/23/17 08:16 36.5 55 18 126/72 (90) 97 Room Air Physical Exam General Appearance: no apparent distress Respiratory/Chest: Auscultation: breath sounds normal Cardiovascular: Heart Auscultation: RRR Abdomen: Inspection & Palpation: soft Liver: non-tender Assessment and Plan stable for EGD
--- NOTE | 2017-09-23 09:04 | Discharge Instructions ---
Endoscopy Patient Instructions Date / Procedure(s) Performed Sep 23, 2017. EGD Allergy Information Coded Allergies: Buspirone (Verified Allergy, Severe, NEURO COMPLICATIONS, 09/23/17) Lisinopril (Verified Allergy, Intermediate, cough, 09/23/17) Ammonia (Verified Allergy, Unknown, SWELLING, 09/23/17) Duloxetine (Verified Allergy, Unknown, RASH ITCHING, 09/23/17) Dust (Verified Allergy, Unknown, ROACHES,DUST MITES-CLOGGED UP SINUSES-CAN 'T BREATHE, 09/23/17) NSAIDs (Verified Allergy, Unknown, not supposed to use-S/P GASTRIC BYPASS , 09/23/17) Venlafaxine (Verified Allergy, Unknown, AFFECTS LEGS, 09/23/17) Diphenhydramine (Verified Adverse Reaction, Unknown, RESTLESS LEGS, ) Discharge Date / Findings Sep 23, 2017. Normal post gastric bypass anatomy Provider Instructions Activity Restrictions - No exercising or heavy lifting for 24 hours. - Do not drink alcohol the day of the procedure. - Do not drive a car or operate machinery until the day after the procedure. - Do not make any important decisions or sign important papers in 24 hours after the procedure. Following Day: - Return to full activity which may include returning to work/school. Diet Start your diet with liquids and light foods (jello, soup, juice, toast). Then eat your usual diet if not nauseated. Treatment For Common After Affects For mild abdominal pain, bloating, or excessive gas: - Rest - Eat lightly - Lie on right side Follow-Up Information Follow-up with DR. BENOIT GIFFORD as scheduled Anesthesia Information What You Should Know You have had a procedure that required some medicine to reduce anxiety and discomfort. This treatment is called moderate sedation. After receiving the treatment, you may be sleepy, but you will be able to breathe on your own. The effects of the treatment may last for several hours. Follow these instructions along with Activity/Diet recommendations noted above: * Do NOT do anything where dizziness or clumsiness would be dangerous. * Rest quietly at home today, then you can be up and about tomorrow. * Have a responsible person stay with you the rest of today. * You may have had an I.V. today. If so, you may take the dressing off later today. Recommendations Call your doctor if: * Trouble breathing * Continuous vomiting for more than 24 hours * Temperature above 101 degrees * Severe abdominal pain or bloating * Pain not relieved by pain medicine ordered * There is increased drainage or redness from any incision * A large amount of rectal bleeding greater than 2-3 tablespoons. (If you had a polyp/s removed or have hemorrhoids, a small amount of blood - from the rectum is to be expected.) * You have any unanswered questions or concerns. IN THE EVENT OF A SERIOUS EMERGENCY, GO TO THE NEAREST EMERGENCY ROOM Your discharge instructions were prepared by provider Phil Romero. Patient Instructions Signature Page Bonnie Oneal Patient (or Guardian) Signature/Date: I have read and understand the instructions given to me by my caregivers. Caregiver/RN/Doctor Signature/Date: The above-named patient and/or guardian has received patient instructions on this date. + Original Patient Signature Page (only) stays with chart. Please make copy for patient.
--- NOTE | 2017-09-23 09:16 | GI REPORT ---
Procedure Date: 09/23/2017 8:20 AM Procedure: Upper GI endoscopy Indications: Dysphagia Medicines: See the Anesthesia note for documentation of the administered medications Complications: No immediate complications. Estimated Blood Loss: Estimated blood loss: none. Procedure: Pre-Anesthesia Assessment: - Prior to the procedure, a History and Physical was performed, and patient medications, allergies and sensitivities were reviewed. The patient's tolerance of previous anesthesia was reviewed. - The risks and benefits of the procedure and the sedation options and risks were discussed with the patient. All questions were answered and informed consent was obtained. - Patient identification and proposed procedure were verified prior to the procedure by the physician and the nurse. The procedure was verified in the pre-procedure area. - Pre-procedure physical examination revealed no contraindications to sedation. - After reviewing the risks and benefits, the patient was deemed in satisfactory condition to undergo the procedure. After obtaining informed consent, the endoscope was passed under direct vision. Throughout the procedure, the patient's blood pressure, pulse, and oxygen saturations were monitored continuously. The Scope was introduced through the mouth, and advanced to the afferent and efferent jejunal loops. The upper GI endoscopy was accomplished without difficulty. The patient tolerated the procedure well. Findings: The esophagus was normal. Evidence of a gastric bypass was found. A normal gastric pouch was found. The staple line appeared intact with some visible dat seen. The gastrojejunal anastomosis was characterized by healthy appearing mucosa. The jejunojejunal anastomosis was characterized by healthy appearing mucosa. The examined jejunum was normal. Impression: - Normal esophagus. - No strictures seen. - Gastric bypass with intact staple line. Gastrojejunal anastomosis characterized by healthy appearing mucosa. - Normal examined jejunum. - No specimens collected. Recommendation: - Discharge patient to home. Phil Romero M.D. Phil Romero MD 09/23/2017 9:15:50 AM This report has been signed electronically. Note Initiated On: 09/23/2017 8:20 AM I attest to the content of the Intraoperative Record and orders documented therein, exceptions below
--- NOTE | 2017-09-23 09:21 | Anesthesiology Progress Note ---
Anesthesia Post Op Note Date & Time Sep 23, 2017 at 09:21 Vital Signs Pain Intensity: 7 Vital Signs Past 12 Hours Date Time Temp Pulse Resp B/P (MAP) Pulse Ox O2 Delivery O2 Flow Rate FiO2 09/23/17 09:20 59 20 111/80 (90) 99 Room Air 09/23/17 09:05 61 20 116/77 (90) 98 Room Air 09/23/17 08:16 36.5 55 18 126/72 (90) 97 Room Air Notes Mental Status: alert / awake / arousable, participated in evaluation Pt Amnestic to Procedure: Yes Nausea / Vomiting: adequately controlled Pain: adequately controlled Airway Patency, RR, SpO2: stable & adequate BP & HR: stable & adequate Hydration State: stable & adequate Anesthetic Complications: no major complications apparent
[2017-09-23 09:35] VITALS: BP 125/85; PULSE 57; O2SAT 100
== END | disposition home or self-care (01) ==
LOC: C.GI 07:44
PROVIDERS: ATTEND Internal Medicine Gastroenterology
DX: R13.10 Dysphagia, unspecified (principal); J45.909 Unspecified asthma, uncomplicated; I10 Essential (primary) hypertension; M19.90 Unspecified osteoarthritis, unspecified site; Z98.84 Bariatric surgery status; E66.9 Obesity, unspecified; G47.33 Obstructive sleep apnea (adult) (pediatric); Z98.890 Other specified postprocedural states; Z90.89 Acquired absence of other organs; Z90.49 Acquired absence of other specified parts of digestive tract; Z98.41 Cataract extraction status, right eye; Z98.42 Cataract extraction status, left eye; Z96.653 Presence of artificial knee joint, bilateral; Z90.710 Acquired absence of both cervix and uterus; Z79.82 Long term (current) use of aspirin

== ENCOUNTER 2017-12-01 10:43 | Emergency (ER) | payer OTHER ==
[~2017-12-01] VITALS: Ht 154.9 cm; Wt 112.0 kg
[~2017-12-01 10:43] MED LIST changes: -LIDOCAINE HCL 2% 2 ML VIAL (20MG/ML) ONE; -MIDAZOLAM HCL 1 MG/ML 2ML VIAL ONE; -ONDANSETRON INJ 2 MG/ML 2 ML VIAL ONE; -PROPOFOL IV EMULSION 10 MG/ML 20 ML VIAL IV ONE; -SODIUM CHLORIDE 0.9% 500ML 500 ML IV ONE
[2017-12-01 11:03] VITALS: TEMP 36.8; Ht 154.9 cm; Wt 112.0 kg
[2017-12-01] MEDS ORDERED: TRAM-10 PO (11:40)
[2017-12-01 12:16] LABS: BASO % 0.3 %; BASO ABS # 0.02 K/uL (0-0.2); EOS % 1.6 %; EOS ABS # 0.12 K/uL (0-0.5); HEMATOCRIT 40.6 % (37-47); HEMOGLOBIN 13.2 g/dL (12.0-16.0); IG# 0.04 K/uL (0.00-0.02); LYMPH % 21.6 %; LYMPH ABS # 1.66 K/uL (1.2-3.4); MEAN CELL VOLUME 92.7 fL (80-100); MEAN CORPUSCULAR HEMOGLOBIN 30.1 pg (25-34); MEAN CORPUSCULAR HGB CONC 32.5 g/dl (32-36); MEAN PLATELET VOLUME 9.6 fL (7.4-10.4); MONO % 10.4 %; NEUT % 65.6 %; NEUT ABS # 5.06 K/uL (1.4-6.5); PLATELET COUNT 258 K/uL (130-400); RED CELL DISTRIBUTION WIDTH CV 14.6 % (11.5-14.5); RED CELL DISTRIBUTION WIDTH SD 49.7 fL (36.4-46.3)
[2017-12-01 12:24] LABS: INR 0.9 (0.9-1.1); PTT PATIENT 23.5 SECONDS (21.0-31.0)
--- NOTE | 2017-12-01 12:37 | DIAGNOSTIC IMAGING REPORT ---
CHEST ONE VIEW PORTABLE CLINICAL HISTORY: Fever. Sepsis. COMPARISON STUDY: Chest radiograph and chest CT July 29, 2017. FINDINGS: Lung volumes are normal. There is no pneumothorax or pleural effusion. There is no evidence for pulmonary edema. No consolidation is identified. Mild cardiomegaly is noted. IMPRESSION: No acute cardiopulmonary findings. No change in appearance of the chest. Electronically signed by: Norris Blackburn M.D. 12/01/2017 12:35 PM Dictated Date/Time: 12/01/2017 12:34 PM
[2017-12-01 12:41] LABS: BLOOD UREA NITROGEN 29 mg/dl (7-18); CALCIUM 7.6 mg/dl (8.5-10.1); CARBON DIOXIDE 26 mmol/L (21-32); CREATININE 0.71 mg/dl (0.60-1.20); GLUCOSE 89 mg/dl (70-99); SODIUM 140 mmol/L (136-145)
--- NOTE | 2017-12-01 13:34 | EMERGENCY ROOM VISIT NOTE ---
History Report prepared by Sathya: Giuliano Oro Under the Supervision of: Dr. Kelechi Gunter D.O. First contact with patient: 11:21 Chief Complaint: CHEST PAIN Stated Complaint: CHEST PAIN, TINGLING/NUMBNESS R ARM Nursing Triage Summary: pt has hx of chf and takes Lasix pt reports starting to cough this am and feeling like fluids in lungs then at 10am while at [employer] pt developed chest pain while singing, midsternal nonradiating tingling in right hand History of Present Illness The patient is a 67 year old female who presents to the Emergency Room with complaints of constant chest pain beginning 1.5 hours ago. She also complains of right arm tingling/numbness, and dizziness. Her symptoms began while singing at [employer]. The patient describes her pain as a feeling of "tightness". Her right arm numbness is still present. The patient notes that she began coughing a lot during the middle of the night last night. She has a history of CHF and took her Lasix this morning upon waking up as normal which resolved her cough. She is also concerned that she may have a broken toe after falling on it earlier this week. Source of History: patient Onset: 1.5 hours ago Position: chest Quality: other ("tightness") Timing: constant Associated Symptoms: + cough (resolved), + numbness (right arm) Note: The patient also complains of right arm tingling, and dizziness. Review of Systems See HPI for pertinent positives & negatives. A total of 10 systems reviewed and were otherwise negative. Past Medical & Surgical Medical Problems: (1) Cholecystectomy (2) ISAC (generalized anxiety disorder) (3) Gastric Bypass (4) Hypertension Nos (5) Obesity (6) Pancreatitis (7) Right shoulder pain (8) Thoraco abdominal aneurysm Surgical Problems: (1) S/P hysterectomy Family History CVA Cancer Diabetes mellitus Heart disease Hypertension Kidney disease Kidney stones Lung disease TIAs GRANDMOTHER MOTHER Social History Smoking Status: Unknown if Ever Smoked Alcohol Use: occasionally Marital Status: single Housing Status: lives alone Occupation Status: employed Current/Historical Medications Scheduled Aspirin (Aspirin Chewable), 81 MG PO DAILY AT NOON Atorvastatin (Lipitor), 20 MG PO HS Biotin (Biotin), 500 MCG PO BID Carbidopa/Levodopa (Sinemet 25MG/100MG), 1 TAB PO QID Cholecalciferol (Vitamin D), 2,000 UNITS PO HS Cyanocobalamin (Vitamin B-12), 1,000 MCG PO MONTHLY Diclofenac Sodium (Topical) (Voltaren 1% Top Gel), 1 APPLN TOP QID Ergocalciferol (Vitamin D 94861 Unit), 1 CAP PO WK Fish Oil ([place]-3), 1 CAP PO BID Fluticasone Propionate (Flovent Hfa), 2 PUFFS INH BID Fluticasone Propionate (Nasal) (Flonase Allergy Relief), 2 SPRAY ELYSE BID Furosemide (Lasix), 40 MG PO DIRECTED Ibandronate Sodium (Boniva), 150 MG PO MONTHLY Levothyroxine Sodium (Synthroid), 50 MCG PO QAM Linaclotide (Linzess), 72 MCG PO QAM Magnesium Oxide (Mg Supplement (Magnesium), 500 MG PO HS Metaxalone (Skelaxin), 800 MG PO QID Metoprolol Tartrate (Lopressor) (Lopressor), 25 MG PO BID Multiple Vitamins W/ Minerals (Preservision Areds), 1 CAP PO BID Omeprazole (Prilosec), 20 MG PO BID Oyster Shell (Calcium), 500 MG PO BID Pediatric Multiple Vitamins W/ (Flintstones Plus Iron), 1 DOSE PO BID Potassium Chloride (Potassium Chloride), 1 DOSE PO QAM Ropinirole (Requip), 0.5 MG PO TID Ropinirole (Requip), 0.5-2 MG PO HS Senna/Docusate Sod (Senokot S), 1 TAB PO BID Scheduled PRN Albuterol Hfa (Ventolin Hfa), 2-4 PUFFS INH Q6H PRN for Shortness of Breath Ipratropium [place] (Nasal) (Ipratropium [place]), 1 SPRAY ELYSE QID PRN for Nasal Congestion Ondansetron Hcl (Zofran), 4 MG PO Q6H PRN for Nausea Tramadol (Ultram), 50 MG PO UD PRN for Pain Triamcinolone Acet (Aristocort 0.1%), 1 APPLN TOP BID PRN for PRN Allergies Coded Allergies: Buspirone (Verified Allergy, Severe, NEURO COMPLICATIONS, 12/01/17) Lisinopril (Verified Allergy, Intermediate, cough, 12/01/17) Ammonia (Verified Allergy, Unknown, SWELLING, 12/01/17) Duloxetine (Verified Allergy, Unknown, RASH ITCHING, 12/01/17) Dust (Verified Allergy, Unknown, ROACHES,DUST MITES-CLOGGED UP SINUSES-CAN 'T BREATHE, 12/01/17) NSAIDs (Verified Allergy, Unknown, not supposed to use-S/P GASTRIC BYPASS , 12/01/17) Venlafaxine (Verified Allergy, Unknown, AFFECTS LEGS, 12/01/17) Diphenhydramine (Verified Adverse Reaction, Unknown, RESTLESS LEGS, ) Physical Exam Vital Signs Date Time Temp Pulse Resp B/P (MAP) Pulse Ox O2 Delivery O2 Flow Rate FiO2 12/01/17 13:48 82 20 112/64 95 12/01/17 12:32 72 20 110/66 95 Room Air 12/01/17 11:09 57 12/01/17 11:03 36.8 61 20 151/70 99 Room Air 12/01/17 11:00 100 Room Air Physical Exam CONSTITUTIONAL/VITAL SIGNS: Reviewed / noted above. GENERAL: Non-toxic in appearance. INTEGUMENTARY: Warm, dry, and [place]. HEAD: Normocephalic. EYES: without scleral icterus or trauma. ENT/OROPHARYNX: clear and moist. LYMPHADENOPATHY/NECK: Is supple without lymphadenopathy or meningismus. RESPIRATORY: Lungs clear and equal. CARDIOVASCULAR: Regular rate and rhythm. GI/ABDOMEN: Soft and nontender. No organomegaly or pulsatile mass. No rebound or guarding. Normal bowel sounds. EXTREMITIES: Warm and well perfused. BACK: No CVA tenderness. NEUROLOGICAL: Intact without focal deficits. PSYCHIATRIC: normal affect. MUSCULOSKELETAL: Normally developed with good muscle tone. Medical Decision & Procedures ER Provider Diagnostic Interpretation: Radiology results as stated below per my review and radiologist interpretation: CHEST ONE VIEW PORTABLE FINDINGS: Lung volumes are normal. There is no pneumothorax or pleural effusion. There is no evidence for pulmonary edema. No consolidation is identified. Mild cardiomegaly is noted. IMPRESSION: No acute cardiopulmonary findings. No change in appearance of the chest. Electronically signed by: Norris Blackburn M.D. 12/01/2017 12:35 PM Laboratory Results 12/01/17 12:02 Red Blood Count 4.38, Mean Corpuscular Volume 92.7, Mean Corpuscular Hemoglobin 30.1, Mean Corpuscular Hemoglobin Concent 32.5, Mean Platelet Volume 9.6, Neutrophils (%) (Auto) 65.6, Lymphocytes (%) (Auto) 21.6, Monocytes (%) (Auto) 10.4, Eosinophils (%) (Auto) 1.6, Basophils (%) (Auto) 0.3, Neutrophils # (Auto ) 5.06, Lymphocytes # (Auto) 1.66, Monocytes # (Auto) 0.80, Eosinophils # (Auto ) 0.12, Basophils # (Auto) 0.02 12/01/17 12:02 Test 12/01/17 12:02 White Blood Count 7.70 K/uL (4.8-10.8) Red Blood Count 4.38 M/uL (4.2-5.4) Hemoglobin 13.2 g/dL (12.0-16.0) Hematocrit 40.6 % (37-47) Mean Corpuscular Volume 92.7 fL (80-100) Mean Corpuscular Hemoglobin 30.1 pg (25-34) Mean Corpuscular Hemoglobin Concent 32.5 g/dl (32-36) Platelet Count 258 K/uL (130-400) Mean Platelet Volume 9.6 fL (7.4-10.4) Neutrophils (%) (Auto) 65.6 % Lymphocytes (%) (Auto) 21.6 % Monocytes (%) (Auto) 10.4 % Eosinophils (%) (Auto) 1.6 % Basophils (%) (Auto) 0.3 % Neutrophils # (Auto) 5.06 K/uL (1.4-6.5) Lymphocytes # (Auto) 1.66 K/uL (1.2-3.4) Monocytes # (Auto) 0.80 K/uL (0.11-0.59) Eosinophils # (Auto) 0.12 K/uL (0-0.5) Basophils # (Auto) 0.02 K/uL (0-0.2) RDW Standard Deviation 49.7 fL (36.4-46.3) RDW Coefficient of Variation 14.6 % (11.5-14.5) Immature Granulocyte % (Auto) 0.5 % Immature Granulocyte # (Auto) 0.04 K/uL (0.00-0.02) Prothrombin Time 9.5 SECONDS (9.0-12.0) Prothromb Time International Ratio 0.9 (0.9-1.1) Activated Partial Thromboplast Time 23.5 SECONDS (21.0-31.0) Partial Thromboplastin Ratio 0.9 Anion Gap 8.0 mmol/L (3-11) Est Creatinine Clear Calc Drug Dose 89.2 ml/min Estimated GFR () 102.2 Estimated GFR (Non- 88.1 BUN/Creatinine Ratio 40.4 (10-20) Calcium Level 7.6 mg/dl (8.5-10.1) Troponin I < 0.015 ng/ml (0-0.045) Laboratory results as stated above per my review. ECG Per My Interpretation Indication: chest pain Rate (beats per minute): 59 Rhythm: sinus bradycardia Findings: other (No ST elevations. No PVCs. ) ED Course 1127: Previous medical records were reviewed. The patient was evaluated in room C5. A complete history and physical examination was performed. 1335: On reevaluation, the patient is resting comfortably. I discussed the results and findings with the patient. She verbalized agreement of the treatment plan. She was discharged home. Medical Decision The differential was considered includes acute myocardial infarction, acute coronary syndrome, myocarditis, pericarditis, pericardial effusions/tamponade, esophageal perforation, thoracic aortic dissection, pulmonary embolism, pneumonia, pneumothorax, pancreatitis, shingles, acute cholecystitis, perforated abdominal viscus. This is a 67-year-old female who presents to the ED with a chief complaint of a coughing episode that started 2 AM this morning. She took Lasix and that helped. She states that an hour or 2 ago, prior to arrival, she developed chest pain while she was singing at [employer]. She also developed some tingling in her right arm. Her symptoms have mostly resolved but she came in for evaluation. Her physical exam was unremarkable. Her vital signs are normal. Initial blood pressure was slightly elevated. Second blood pressure was normal. BUN is 29, troponin was negative, there was no significant anemia or leukocytosis, chest x-ray did not show acute process. EKG did not show any ischemic changes. The patient was told the results of the test. She is felt to be stable for discharge and outpatient follow-up. Medication Reconcilliation Current Medication List: was personally reviewed by me Blood Pressure Screening Patient's blood pressure: Normal blood pressure Blood pressure disposition: Did not require urgent referral Impression Primary Impression: Substernal precordial chest pain Scribe Attestation The scribe's documentation has been prepared under my direction and personally reviewed by me in its entirety. I confirm that the note above accurately reflects all work, treatment, procedures, and medical decision making performed by me. Departure Information Dispostion Home / Self-Care Referrals Lavern Gomez D.O. (PCP) Patient Instructions My [facility] Additional Instructions Follow-up with your doctor for further care and evaluation in 1-2 days. Return to the emergency department for worsening or new symptoms or any concerns. You have been examined and treated today on an emergency basis only. This is not a substitute for, or an effort to provide, complete comprehensive medical care. It is impossible to recognize and treat all injuries or illnesses in a single emergency department visit. It is therefore important that you follow up closely with your doctor. Call as soon as possible for an appointment.
[2017-12-01 13:48] VITALS: BP 112/64; PULSE 82; O2SAT 95
== END 2017-12-01 13:49 | disposition home or self-care (01) ==
LOC: C.EDB 10:45 → C.EDC 13:49
DX: R07.2 Precordial pain (principal); I11.0 Hypertensive heart disease with heart failure; I50.9 Heart failure, unspecified; F41.1 Generalized anxiety disorder; I71.6 Thoracoabdominal aortic aneurysm, without rupture; Z82.49 Family history of ischemic heart disease and other diseases of the circulatory system; Z79.82 Long term (current) use of aspirin; Z79.51 Long term (current) use of inhaled steroids; Z79.899 Other long term (current) drug therapy; Z88.8 Allergy status to other drugs, medicaments and biological substances; Z91.048 Other nonmedicinal substance allergy status

== ENCOUNTER 2019-06-06 09:53 | Inpatient (IN) ==
[2019-06-06 12:03] LABS: iSTAT Creatinine 0.9 mg/dl (0.6-1.3); iSTAT Hemoglobin 13.3 g/dl (12.0-16.0); iSTAT Ionized Calcium 1.2 mmol/l (1.12-1.32); iSTAT Potassium 3.8 mEq/L (3.3-5.0)
[2019-06-06 12:07] LABS: Basophils # (auto) 0.03 K/uL (0-0.2); Basophils % (auto) 0.6 %; Eosinophils # (auto) 0.12 K/uL (0-0.5); Eosinophils % (auto) 2.3 %; Hematocrit (blood only) 39.1 % (37-47); Hemoglobin 12.3 g/dL (12.0-16.0); Immature Granulocytes # (auto) 0.01 K/uL (0.00-0.02); Immature Granulocytes % (auto) 0.2 %; Lymphocytes # (auto) 1.24 K/uL (1.2-3.4); Lymphocytes % (auto) 23.8 %; Mean Corpuscular Hemoglobin 30.1 pg (25-34); Mean Corpuscular Hgb Conc 31.5 g/dL (32-36); Mean Corpuscular Volume 95.8 fL (80-100); Mean Platelet Volume 10.3 fL (7.4-10.4); Monocytes # (auto) 0.55 K/uL (0.11-0.59); Monocytes % (auto) 10.6 %; Neutrophils # (auto) 3.25 K/uL (1.4-6.5); Neutrophils % (auto) 62.5 %; Platelet Count 224 K/uL (130-400); RDW Coefficient of Variation 15.8 % (11.5-14.5); RDW Standard Deviation 55.5 fL (36.4-46.3); Red Blood Count 4.08 M/uL (4.2-5.4)
[2019-06-06 12:17] LABS: Partial Thromboplastin Ratio 0.9; Partial Thromboplastin Time 24.6 Seconds (21.0-31.0); Prothrombin Time 9.9 Seconds (9.0-12.0)
[2019-06-06 12:24] LABS: Albumin Level 3.2 gm/dl (3.4-5.0); BUN Creatinine Ratio 32.6 (10-20); Calcium 8.9 mg/dl (8.5-10.1); Creatinine Clr Calc Pharmacy 65.5 ml/min; Est GFR (African American) 74.6; Est GFR (Non-African American) 64.4; Magnesium 2.3 mg/dl (1.8-2.4); Potassium 3.8 mmol/L (3.5-5.1)
[2019-06-06 12:27] LABS: Bilirubin,Total 0.4 mg/dl (0.2-1); Globulin 3.2 gm/dl (2.5-4.0); Total Protein 6.4 gm/dl (6.4-8.2)
[2019-06-06] MEDS ORDERED: OPTIRAY 320 125ml IV PRN (12:52)
[2019-06-06] MEDS ORDERED: SODIUM CHLORIDE 0.9% 1000ML 500 ML IV ONE (13:19)
--- NOTE | 2019-06-06 13:27 | CT Scan Report ---
CT angio chest dissec wo/w con CT DOSE: 3066.70 mGy.cm HISTORY: Pain cp/near syncope eval for dissection TECHNIQUE: Multiaxial CT images of the chest, abdomen, and pelvis were performed both before and afte r the intravenous administration of contrast to evaluate the aorta. Maximal intensity projection imag es were also obtained. A dose lowering technique was utilized adhering to the principles of ALARA. COMPARISON STUDY: None. FINDINGS: The lungs are clear. Thoracic aorta is negative for dissection. The pulmonary vasculature enhances appropriately. Dilatation of the root of aorta to a maximum diamet er of 5 cm. IMPRESSION: 1. No acute process in the chest. 2. No acute process of the thoracic aorta. 3. Aneurysmal dilatation of the proximal ascending thoracic aorta to 5 cm. The above report was generated using voice recognition software. It may contain grammatical, syntax or spelling errors. Electronically signed by: Checo Brock M.D. 06/06/2019 1:25 PM
--- NOTE | 2019-06-06 13:33 | CT Scan Report ---
Study: CT abdomen and pelvis angiogram HISTORY: Pain. Nausea. COMPARISON: 09/09/2018 FINDINGS: Degenerative change of the lumbar spine. No evidence for compression deformity. Moderate degenerative change of the hips as well as sacroiliac joints. No acute process of any bony s tructure. Generalized ectasia and mild atherosclerotic change of the abdominal and pelvic arterial vasculature. No evidence for aneurysm or dissection. Calcified ectatic change of the renal arterial vasculature. Operative changes consistent with a prior gastric bypass type procedure. Mild cortical scarring of th e liver. All major organ structures enhance uniformly. Small bilateral renal cysts. No evidence for r enal hydronephrosis. Anterior wall fat-containing ventral hernia. No evidence for bowel containment incarceration or obstr uctive change. Nonobstructive bowel pattern. IMPRESSION: 1. Mild atherosclerotic change of the abdominal and pelvic arterial vasculature.. 2. No evidence for aneurysm or dissection. 3. No acute process of the remainder of the study. Electronically signed by: Checo Brock M.D. 06/06/2019 1:31 PM
[2019-06-06] MEDS ORDERED: ROPINIROLE HCL 1 MG TABLET PO STA (14:08)
--- NOTE | 2019-06-06 14:22 | Emergency Department Note ---
Entered by Gabriella Shaikh acting as a scribe for History of Present Illness General Chief complaint: Hypotension Stated complaint: DIZZINESS, BP WAS 94/59, IRREGULAR, PULSE 70-46 Time Seen by Provider: 06/06/19 10:02 Source: patient History of Present Illness Onset (ago): day(s) (1000 yesterday) Location: chest, upper extremity and lower extremity Pain Consistency: + other (sudden) Quality: + other (hypotension) Associated symptoms: + chest pain (soreness) and + other (Positive dizziness yesterday, shaking yesterday, near syncopal episode yesterday, blood pressure of 94/59, pulse between 70 and 46, difficulty with inspiration for the past 1.5 weeks. Negative diarrhea, vomiting. ) The patient is a 69 year old female who presents to the ED with complaints of hypotension. She has a hx of a thoracic abdominal aneurysm. She states at 1000 yesterday, she suddenly became dizzy and cold. She then began shaking and felt like she was going to have a syncopal episode. She states she took her blood pressure and it was around 94/59. She states her pulse was between 70 and 46. She does take metoprolol. She did not take her Lasix yesterday. She called [facility] this morning and they recommended she come to the ED for further evaluation. The patient notes her chest "feels sore." She normally has pain all of her body from her EDS but she states this chest pain seemed different. She states for the past 1.5 weeks, she has had difficulty with inspiration. She denies diarrhea, vomiting. Home Medications Home Medications Medication Instructions Recorded Confirmed Type Flintstones with Iron 1 tab PO BID 04/15/18 06/06/19 History Linzess 1 - 2 tab PO DAILY 04/15/18 06/06/19 History [place]-3 Fish Oil 1 tab PO DAILY 04/15/18 06/06/19 History acetaminophen [Tylenol Extra 500 mg PO QID PRN 04/15/18 06/06/19 History Strength] albuterol sulfate [Ventolin HFA] 2 puff INHALATION QID PRN 04/15/18 06/06/19 History atorvastatin 20 mg PO QPM 04/15/18 06/06/19 History biotin 1,000 mcg PO QPM 04/15/18 06/06/19 History calcium citrate 650 mg PO BID 04/15/18 06/06/19 History carbidopa-levodopa [Sinemet] 1.5 tab PO QID 04/15/18 06/06/19 History cyanocobalamin (vitamin B-12) 1,000 mcg PO MONTHLY 04/15/18 06/06/19 History diclofenac sodium [Voltaren] 2 g TOPICAL QID 04/15/18 06/06/19 History ergocalciferol (vitamin D2) 50,000 unit PO WK 04/15/18 06/06/19 History fluticasone propionate [Flonase 2 spray INTRANASAL BID 04/15/18 06/06/19 History Allergy Relief] ipratropium bromide 2 spray INTRANASAL QID PRN 04/15/18 06/06/19 History levothyroxine [Synthroid] 50 mcg PO QAM 04/15/18 06/06/19 History magnesium 500 mg PO QPM 04/15/18 06/06/19 History metaxalone [Metaxall] 800 mg PO QID 04/15/18 06/06/19 History metoprolol tartrate 25 mg PO BID 04/15/18 06/06/19 History omeprazole 20 mg PO QAM 04/15/18 06/06/19 History ondansetron 4 mg PO QID PRN 04/15/18 06/06/19 History potassium chloride [Klor-Con M20] 20 meq PO DAILY 04/15/18 06/06/19 History sennosides-docusate sodium 1 tab PO BID 04/15/18 06/06/19 History [Senna-S] tramadol 50 mg PO Q6 PRN 04/15/18 06/06/19 History furosemide [Lasix] 20 mg PO DAILY 09/09/18 06/06/19 History doxycycline hyclate [Vibramycin] 100 mg PO BID 06/06/19 06/06/19 History ropinirole 0.5 mg PO HS 06/06/19 06/06/19 History ropinirole 1 mg PO QID 06/06/19 06/06/19 History Allergies Allergy/AdvReac Type Severity Reaction Status Date / Time buspirone Allergy Severe NEURO Verified 06/06/19 11:28 COMPLICATIONS lisinopril Allergy Intermediate cough Verified 06/06/19 11:28 ammonia Allergy Unknown SWELLING Verified 06/06/19 11:28 duloxetine Allergy Unknown RASH Verified 06/06/19 11:28 ITCHING NSAIDS (Non-Steroidal Allergy Unknown not Verified 06/06/19 11:28 Anti-Inflamma supposed to use-S/P GASTRIC BYPASS venlafaxine Allergy Unknown AFFECTS Verified 06/06/19 11:28 LEGS diphenhydramine AdvReac Unknown RESTLESS Verified 06/06/19 11:28 LEGS Dust Allergy Unknown ROACHES,DUST Uncoded 06/06/19 11:28 MITES-CLOGGED UP SINUSES-CAN'T BREATHE Past Med/Surg History Medical History Ascending aortic aneurysm Edenilson-Danlos syndrome ISAC (generalized anxiety disorder) Pancreatitis (Resolved) Pulmonary embolism Thoracic aortic aneurysm Surgical History S/P hysterectomy (Resolved) Family History Other No pertinent family history in first degree relatives Social History Preferred Language: Ghanaian Communication Ability: Effective Visual Impairment: Limited Hearing Ability: Normal Beliefs That Will Affect Care: None Current Living Situation: Alone Current Living Situation Comment: stacyo lives alone Feels Safe at Home: Yes Smoking Status: Never smoker Hx Substance Use: No Review of Systems See HPI for pertinent positives & negatives. and A total of 10 systems reviewed and were otherwise negative Physical Exam Vital Signs Vital Signs - 24 hr 06/06/19 09:57 06/06/19 10:26 06/06/19 11:00 Temperature 36.6 C Temperature Source Oral Pulse Rate - Lying Pulse Rate - Sitting Pulse Rate - Standing Pulse Rate 77 58 L Pulse Rate from SpO2 Sensor 60 Respiratory Rate 18 23 Blood Pressure - Lying Blood Pressure - Sitting Blood Pressure- Standing Blood Pressure 127/78 121/76 Blood Pressure Mean 94 91 Pulse Oximetry 96 99 Oxygen Delivery Method Room Air Sepsis Recent Fever Within 48 Hours No Sepsis Action Taken by Nursing No Action Required End-Tidal CO2 06/06/19 13:10 06/06/19 13:13 Temperature Temperature Source Pulse Rate - Lying 69 Pulse Rate - Sitting 76 Pulse Rate - Standing 73 Pulse Rate Pulse Rate from SpO2 Sensor 70 Respiratory Rate 18 Blood Pressure - Lying 117/77 Blood Pressure - Sitting 150/100 H Blood Pressure- Standing 144/102 H Blood Pressure 117/77 Blood Pressure Mean 95 Pulse Oximetry 98 Oxygen Delivery Method Sepsis Recent Fever Within 48 Hours Sepsis Action Taken by Nursing End-Tidal CO2 97 Constitutional: Vital signs reviewed. Eyes: Pupils are equal round reactive to light. Conjunctiva are noninjected. ENT: Pharynx is clear without erythema or exudate. Mucous membranes are dry. Neck supple without meningeal signs. Respiratory: Clear to auscultation bilaterally. Breath sounds are equal bilaterally. Cardiovascular: Regular rate and rhythm. No rubs or gallops. Symmetric radial pulses GI: Soft, nondistended and nontender. Bowel sounds are present. Musculoskeletal: No peripheral edema. No lower extremity tenderness. Integumentary: No cyanosis. Neurological: The patient is awake and alert. No focal deficits. Psychiatric: Normal affect. Course Course 1005: Past medical records reviewed. The patient was evaluated in room A9. A complete history and physical exam was performed. 1242: I reevaluated the patient at this time. She is going to CT scan now as her first IV blew. 1405: I updated the patient at this time. I discussed her test results. I r ecommended hospitalization. She is agreeable. She is requesting Requip for her restless leg. 1409: Discussed the patient's case with Ning Singh PA-C on behalf of Dr. South, [facility] Hospitalist. The patient will be evaluated for further management. Administered Medications Ioversol (Optiray 320 125ml) 120 ml IV ONCE PRN PRN Reason: Interaction Checking Stop: 06/10/19 12:51 Last Admin: 06/06/19 12:52 Dose: 120 ml Documented by: [id number] Discontinued Medications Sodium Chloride (Nss 1000ml) 500 mls @ 999 mls/hr IV .Q31M ONE Stop: 06/06/19 13:49 Last Infusion: 06/06/19 13:51 Dose: 0 mls/hr Documented by: [id number] Admin: 06/06/19 13:24 Dose: 999 mls/hr Documented by: [id number] Medical Decision Making Differential Diagnosis Differential diagnosis: Etiologies such as bradycardia, near syncope, dehydration, aortic dissection, ACS, as well as others were entertained. Medical Records Attestation: I reviewed the patient's medical records. I did perform a limited focused review of portions of the patient's old chart on the electronic medical record. She had a CT in April 2018 which showed ascending aortic aneurysm, 5.1 by 4.7 cm. Home Medications Current Medication List: was personally reviewed by me Laboratory Data Result diagrams: 06/06/19 11:46 06/06/19 11:46 Lab Results 06/06/19 06/06/19 06/06/19 Range/Units 11:46 11:46 11:46 WBC 5.20 (4.8-10.8) K/uL RBC 4.08 L (4.2-5.4) M/uL Hgb 12.3 (12.0-16.0) g/dL POC Hgb (12.0-16.0) g/dl Hct 39.1 (37-47) % POC Hct (37-47) % MCV 95.8 (80-100) fL MCH 30.1 (25-34) pg MCHC 31.5 L (32-36) g/dL RDW Std Deviation 55.5 H (36.4-46.3) fL RDW Coeff of Neftaly 15.8 H (11.5-14.5) % Plt Count 224 (130-400) K/uL MPV 10.3 (7.4-10.4) fL Immature Gran % (Auto) 0.2 % Neut % (Auto) 62.5 % Lymph % (Auto) 23.8 % [place] % (Auto) 10.6 % Eos % (Auto) 2.3 % Baso % (Auto) 0.6 % Immature Gran # (Auto) 0.01 (0.00-0.02) K/uL Neut # (Auto) 3.25 (1.4-6.5) K/uL Lymph # (Auto) 1.24 (1.2-3.4) K/uL [place] # (Auto) 0.55 (0.11-0.59) K/uL Eos # (Auto) 0.12 (0-0.5) K/uL Baso # (Auto) 0.03 (0-0.2) K/uL PT 9.9 (9.0-12.0) Seconds INR 1.0 (0.9-1.1) APTT 24.6 (21.0-31.0) Seconds PTT Ratio 0.9 POC Sodium (135-144) mEq/L Sodium 143 (136-145) mmol/L POC Potassium (3.3-5.0) mEq/L Potassium 3.8 (3.5-5.1) mmol/L POC Chloride (101-112) mEq/L Chloride 118 H (98-107) mmol/L Carbon Dioxide 19 L (21-32) mmol/L POC Total CO2 (24-31) mEq/l Anion Gap 6.0 (3-11) POC Anion Gap (16-25) mmol/L POC BUN (7-18) mg/dl BUN 30 H (7-18) mg/dl Creatinine 0.91 (0.6-1.2) mg/dl POC Creatinine (0.6-1.3) mg/dl Est Cr Clr Drug Dosing 65.5 ml/min Est GFR ( Amer) 74.6 Est GFR (Non-Af Amer) 64.4 BUN/Creatinine Ratio 32.6 H (10-20) Glucose 87 (70-99) mg/dl POC Glucose (other) (70-99) mg/dl Calcium 8.9 (8.5-10.1) mg/dl POC Ioniz Calcium Zenaida (1.12-1.32) mmol/l Magnesium 2.3 (1.8-2.4) mg/dl Total Bilirubin 0.4 (0.2-1) mg/dl AST 13 L (15-37) U/L ALT 7 L (12-78) U/L Alkaline Phosphatase 68 (45-117) U/L POC Troponin I (0-0.045) ng/ml Total Protein 6.4 (6.4-8.2) gm/dl Albumin 3.2 L (3.4-5.0) gm/dl Globulin 3.2 (2.5-4.0) gm/dl Albumin/Globulin Ratio 1.0 (0.9-2) Lipase 113 (73-393) U/L 06/06/19 06/06/19 Range/Units 11:50 11:50 WBC (4.8-10.8) K/uL RBC (4.2-5.4) M/uL Hgb (12.0-16.0) g/dL POC Hgb 13.3 (12.0-16.0) g/dl Hct (37-47) % POC Hct 39 (37-47) % MCV (80-100) fL MCH (25-34) pg MCHC (32-36) g/dL RDW Std Deviation (36.4-46.3) fL RDW Coeff of Neftaly (11.5-14.5) % Plt Count (130-400) K/uL MPV (7.4-10.4) fL Immature Gran % (Auto) % Neut % (Auto) % Lymph % (Auto) % [place] % (Auto) % Eos % (Auto) % Baso % (Auto) % Immature Gran # (Auto) (0.00-0.02) K/uL Neut # (Auto) (1.4-6.5) K/uL Lymph # (Auto) (1.2-3.4) K/uL [place] # (Auto) (0.11-0.59) K/uL Eos # (Auto) (0-0.5) K/uL Baso # (Auto) (0-0.2) K/uL PT (9.0-12.0) Seconds INR (0.9-1.1) APTT (21.0-31.0) Seconds PTT Ratio POC Sodium 142 (135-144) mEq/L Sodium (136-145) mmol/L POC Potassium 3.8 (3.3-5.0) mEq/L Potassium (3.5-5.1) mmol/L POC Chloride 117 H (101-112) mEq/L Chloride (98-107) mmol/L Carbon Dioxide (21-32) mmol/L POC Total CO2 19 L (24-31) mEq/l Anion Gap (3-11) POC Anion Gap 11.0 L (16-25) mmol/L POC BUN 30 H (7-18) mg/dl BUN (7-18) mg/dl Creatinine (0.6-1.2) mg/dl POC Creatinine 0.9 (0.6-1.3) mg/dl Est Cr Clr Drug Dosing ml/min Est GFR ( Amer) Est GFR (Non-Af Amer) BUN/Creatinine Ratio (10-20) Glucose (70-99) mg/dl POC Glucose (other) 86 (70-99) mg/dl Calcium (8.5-10.1) mg/dl POC Ioniz Calcium [place]enaida 1.20 (1.12-1.32) mmol/l Magnesium (1.8-2.4) mg/dl Total Bilirubin (0.2-1) mg/dl AST (15-37) U/L ALT (12-78) U/L Alkaline Phosphatase (45-117) U/L POC Troponin I < 0.03 (0-0.045) ng/ml Total Protein (6.4-8.2) gm/dl Albumin (3.4-5.0) gm/dl Globulin (2.5-4.0) gm/dl Albumin/Globulin Ratio (0.9-2) Lipase (73-393) U/L Imaging Data Radiologist's Impression: Radiology results as stated below per my review and the radiologist's interpretation: CT angio chest dissec wo/w con CT DOSE: 3066.70 mGy.cm HISTORY: Pain cp/near syncope eval for dissection TECHNIQUE: Multiaxial CT images of the chest, abdomen, and pelvis were performed both before and after the intravenous administration of contrast to evaluate the aorta. Maximal intensity projection images were also obtained. A dose lowering technique was utilized adhering to the principles of ALARA. COMPARISON STUDY: None. FINDINGS: The lungs are clear. Thoracic aorta is negative for dissection. The pulmonary vasculature enhances appropriately. Dilatation of the root of aorta to a maximum diameter of 5 cm. IMPRESSION: 1. No acute process in the chest. 2. No acute process of the thoracic aorta. 3. Aneurysmal dilatation of the proximal ascending thoracic aorta to 5 cm. The above report was generated using voice recognition software. It may contain grammatical, syntax or spelling errors. Electronically signed by: Checo Brock M.D. 06/06/2019 1:25 PM Study: CT abdomen and pelvis angiogram HISTORY: Pain. Nausea. COMPARISON: 09/09/2018 FINDINGS: Degenerative change of the lumbar spine. No evidence for compression deformity. Moderate degenerative change of the hips as well as sacroiliac joints. No acute process of any bony structure. Generalized ectasia and mild atherosclerotic change of the abdominal and pelvic arterial vasculature. No evidence for aneurysm or dissection. Calcified ectatic change of the renal arterial vasculature. Operative changes consistent with a prior gastric bypass type procedure. Mild cortical scarring of the liver. All major organ structures enhance uniformly. Small bilateral renal cysts. No evidence for renal hydronephrosis. Anterior wall fat-containing ventral hernia. No evidence for bowel containment incarceration or obstructive change. Nonobstructive bowel pattern. IMPRESSION: 1. Mild atherosclerotic change of the abdominal and pelvic arterial vasculature.. 2. No evidence for aneurysm or dissection. 3. No acute process of the remainder of the study. Electronically signed by: Checo Brock M.D. 06/06/2019 1:31 PM ECG Data Attestation: I personally reviewed and interpreted this ECG as follows: Indication: + chest pain Rate (beats per minute): 62 Rhythm: + normal sinus ECG ST segments: no ST elevation ECG Findings: + Other (limited interpretation due to motion artifact); no PVCs Blood Pressure Blood Pressure Findings: Elevated blood pressure Blood Pressure Disposition: elevated BP felt to be situational MDM Narrative I did evaluate the patient as noted above. The patient is presenting with a near syncopal episode at home. She stated that she felt lightheaded as if she may pass out and when she took her blood pressure and pulse they were low. She also complains of chest pain which she states feels somewhat different than the usual chest pain she gets. She does have a history of known aortic aneurysm. IV access was established. I did treat her with normal saline IV. The patient was placed on a continuous library monitor. Cardiac monitoring: Indication: Bradycardia Rate and rhythm: Normal sinus rhythm rate varied between 58-86. No dysrhythmia. I did order and personally review the patient's 12-lead EKG as described above. She has no acute ischemic changes on her twelve-lead EKG. I did order and review the patient's blood work as noted in the electronic medical record. CBC is unremarkable without leukocytosis or anemia. Electrolytes demonstrate a CO2 of 19. Troponin is negative. I did order a CT angiogram of the chest, abdomen and pelvis. I did review the images myself as well as the radiology report as described above. Her thoracic aneurysm is unchanged. No acute process within the chest or abdomen. I did reassess the patient. I did discuss the test results with her. I did recommend hospitalization for further monitoring and r epeat cardiac biomarkers. I did discuss the case with the hospitalist and rn field case manager. Impression & Plan Near syncope, Acute chest pain, Bradycardia, Thoracic aortic aneurysm Discharge Plan Visit Data Chief Complaint: Hypotension Stated Complaint: DIZZINESS, BP WAS 94/59, IRREGULAR, PULSE 70-46 ED Provider: Fei Wright Discharge Problem: Near syncope, Acute chest pain, Bradycardia, Thoracic aortic aneurysm Patient Disposition: Being Evaluated by Hospitalist Forms Stand Alone Forms: [facility] Prescriptions Prescriptions: No Action atorvastatin 20 mg Tablet 20 mg PO QPM RF: 0 sennosides-docusate sodium [Senna-S] 8.6-50 mg Tablet 1 tab PO BID RF: 0 tramadol 50 mg Tablet 50 mg PO Q6 PRN (Reason: Pain) RF: 0 acetaminophen [Tylenol Extra Strength] 500 mg Tablet 500 mg PO QID PRN (Reason: Pain) RF: 0 potassium chloride [Klor-Con M20] 20 mEq Tablet,Er Particles/Crystals 20 meq PO DAILY RF: 0 levothyroxine [Synthroid] 50 mcg Tablet 50 mcg PO QAM RF: 0 magnesium 250 mg Tablet 500 mg PO QPM RF: 0 ergocalciferol (vitamin D2) 50,000 unit Capsule 50,000 unit PO WK RF: 0 albuterol sulfate [Ventolin HFA] 90 mcg/actuation Hfa Aerosol Inhaler 2 puff INHALATION QID PRN (Reason: Shortness Of Breath) RF: 0 carbidopa-levodopa [Sinemet] 25-100 mg Tablet 1.5 tab PO QID RF: 0 ondansetron 4 mg Tablet,Disintegrating 4 mg PO QID PRN (Reason: Nausea) RF: 0 fluticasone propionate [Flonase Allergy Relief] 50 mcg/actuation [place],Suspension 2 spray INTRANASAL BID RF: 0 ipratropium bromide 0.03 % [place],Non-Aerosol 2 spray INTRANASAL QID PRN (Reason: Nasal Congestion) RF: 0 calcium citrate 200 mg (950 mg) Tablet 650 mg PO BID RF: 0 metaxalone [Metaxall] 800 mg Tablet 800 mg PO QID RF: 0 metoprolol tartrate 25 mg Tablet 25 mg PO BID RF: 0 diclofenac sodium [Voltaren] 1 % Gel 2 g TOPICAL QID RF: 0 omeprazole 20 mg Tablet,Delayed Release (Dr/Ec) 20 mg PO QAM RF: 0 Flintstones with Iron 18 mg iron Tablet,Chewable 1 tab PO BID RF: 0 [place]-3 Fish Oil 300-1,000 mg Capsule 1 tab PO DAILY RF: 0 biotin 1,000 mcg Tablet,Chewable 1,000 mcg PO QPM RF: 0 Linzess 72 mcg Capsule 1 - 2 tab PO DAILY RF: 0 cyanocobalamin (vitamin B-12) 1,000 mcg Capsule 1,000 mcg PO MONTHLY RF: 0 furosemide [Lasix] 20 mg Tablet 20 mg PO DAILY RF: 0 doxycycline hyclate [Vibramycin] 100 mg capsule 100 mg PO BID RF: 0 ropinirole 0.5 mg tablet 1 mg PO QID RF: 0 ropinirole 0.5 mg tablet 0.5 mg PO HS RF: 0 Referrals Referrals: Lavern Gomez DO [Primary Care Provider] - Discharge Problem: Thoracic aortic aneurysm Qualifiers: Presence of rupture: without rupture Qualified Code(s): I71.2 - Thoracic aortic aneurysm, without rupture The scribe's documentation has been prepared under my direction and personally reviewed by me in its entirety. I confirm that the note above accurately reflects all work, treatment, procedures, and medical decision making performed by me.
--- NOTE | 2019-06-06 15:15 | History & Physical Report ---
Date of Service June 06, 2019 Assessment & Plan (1) Near syncope: Complaining of a near syncope with dizziness since yesterday morning Noted to have low blood pressure of systolic 90 and low heart rate at home on a wrist monitor Denies any recent fever and/or chills but noted to have mild dehydration EKG was in sinus rhythm with a rate of 62/min and imaging studies are unremarkable Admitted to telemetry unit to rule out bradyarrhythmia Will get orthostatics blood pressure and pulse Present on Admission?: Yes (2) Bradycardia: Has been on metoprolol tartrate 25 mill grams twice daily EKG was in sinus rhythm with a rate of 62 in the emergency room She noted her heart rate to be around 40s at home We will decrease the dose to 12.5 mg twice daily Check echo if it is not checked within last 6 months (3) Thoracic aortic aneurysm: CT scan of the chest and CT scan of the abdomen and pelvis did not show any increase in aneurysm (4) ISAC (generalized anxiety disorder): Has generalized anxiety (5) Restless leg syndrome: Complaints to have severe restless leg syndrome Has been taking the cube and Sinemet for that We will continue (6) Hypothyroidism: Continue supplement DVT prophylaxis Subcu heparin CODE STATUS Full History of Present Illness Chief Complaint: Lightheadedness with bradycardia arrhythmia since yesterday morning Primary Care Provider: DO Erika Silva 69-year-old obese female with significant past medical history of thoracic aortic aneurysm, LS Danlos syndrome, GERD, ascending aortic aneurysm, hypothyroidism and severe restless leg syndrome apparently has been complaining of dizziness with near syncope since 10 AM yesterday. She denies to have recent fever and/or chills or any viral syndrome. As soon as she felt dizzy she checked her blood pressure and pulse with her wrist monitor. She noted the blood pressure to be around 90 systolic and she tried to take rest to get rid of the symptoms. She got up and started to walk around and felt dizzy again she did not have any other warning before she was going to collapse and she again took rest and lie down. She was noted to have her pulse to be around 40s during these episodes she did not take her Lasix and/or metoprolol this morning and called her provider and was advised to come to the emergency room for further evaluation. She denies any chest pain and/or palpitation, any shortness of breath and/or sweating, any abdominal pain, nausea and/or vomiting. She denies any increasing swelling of the legs. She has been very anxious and she is upset that these things are happening to her. She did not have any significant Lab abnormalities in the emergency room and her scan did not show any any significant change with her aneurysm but given the history of bradycardia arrhythmia and near syncope she was admitted to telemetry unit for continuation of care. Allergies Allergy/AdvReac Type Severity Reaction Status Date / Time buspirone Allergy Severe NEURO Verified 06/06/19 11:28 COMPLICATIONS lisinopril Allergy Intermediate cough Verified 06/06/19 11:28 ammonia Allergy Unknown SWELLING Verified 06/06/19 11:28 duloxetine Allergy Unknown RASH Verified 06/06/19 11:28 ITCHING NSAIDS (Non-Steroidal Allergy Unknown not Verified 06/06/19 11:28 Anti-Inflamma supposed to use-S/P GASTRIC BYPASS venlafaxine Allergy Unknown AFFECTS Verified 06/06/19 11:28 LEGS diphenhydramine AdvReac Unknown RESTLESS Verified 06/06/19 11:28 LEGS Dust Allergy Unknown ROACHES,DUST Uncoded 06/06/19 11:28 MITES-CLOGGED UP SINUSES-CAN'T BREATHE Home Medications Home Medications Medication Instructions Recorded Confirmed Type Flintstones with Iron 1 tab PO BID 04/15/18 06/06/19 History Linzess 1 - 2 tab PO DAILY 04/15/18 06/06/19 History [place]-3 Fish Oil 1 tab PO DAILY 04/15/18 06/06/19 History acetaminophen [Tylenol Extra 500 mg PO QID PRN 04/15/18 06/06/19 History Strength] albuterol sulfate [Ventolin HFA] 2 puff INHALATION QID PRN 04/15/18 06/06/19 History atorvastatin 20 mg PO QPM 04/15/18 06/06/19 History biotin 1,000 mcg PO QPM 04/15/18 06/06/19 History calcium citrate 650 mg PO BID 04/15/18 06/06/19 History carbidopa-levodopa [Sinemet] 1.5 tab PO QID 04/15/18 06/06/19 History cyanocobalamin (vitamin B-12) 1,000 mcg PO MONTHLY 04/15/18 06/06/19 History diclofenac sodium [Voltaren] 2 g TOPICAL QID 04/15/18 06/06/19 History ergocalciferol (vitamin D2) 50,000 unit PO WK 04/15/18 06/06/19 History fluticasone propionate [Flonase 2 spray INTRANASAL BID 04/15/18 06/06/19 History Allergy Relief] ipratropium bromide 2 spray INTRANASAL QID PRN 04/15/18 06/06/19 History levothyroxine [Synthroid] 50 mcg PO QAM 04/15/18 06/06/19 History magnesium 500 mg PO QPM 04/15/18 06/06/19 History metaxalone [Metaxall] 800 mg PO QID 04/15/18 06/06/19 History metoprolol tartrate 25 mg PO BID 04/15/18 06/06/19 History omeprazole 20 mg PO QAM 04/15/18 06/06/19 History ondansetron 4 mg PO QID PRN 04/15/18 06/06/19 History potassium chloride [Klor-Con M20] 20 meq PO DAILY 04/15/18 06/06/19 History sennosides-docusate sodium 1 tab PO BID 04/15/18 06/06/19 History [Senna-S] tramadol 50 mg PO Q6 PRN 04/15/18 06/06/19 History furosemide [Lasix] 20 mg PO DAILY 09/09/18 06/06/19 History doxycycline hyclate [Vibramycin] 100 mg PO BID 06/06/19 06/06/19 History ropinirole 0.5 mg PO HS 06/06/19 06/06/19 History ropinirole 1 mg PO QID 06/06/19 06/06/19 History Past Med/Surg History Medical History Ascending aortic aneurysm Edenilson-Danlos syndrome ISAC (generalized anxiety disorder) Pancreatitis (Resolved) Pulmonary embolism Thoracic aortic aneurysm Surgical History S/P hysterectomy (Resolved) Family History Other No pertinent family history in first degree relatives Social History Preferred Language: Congolese Communication Ability: Effective Visual Impairment: Limited Hearing Ability: Normal Beliefs That Will Affect Care: None Current Living Situation: Alone Current Living Situation Comment: stacyo lives alone Feels Safe at Home: Yes Smoking Status: Never smoker Hx Substance Use: No Review of Systems Review of Systems: All systems reviewed & are unremarkable except as noted in HPI & below Physical Exam Physical Exam: Sitting at the edge of the bed without any acute symptoms. Constitutional: well developed, well nourished, + ill appearing and + obese; no acute distress Eyes: PERRL, conjunctivae normal, anicteric sclerae ENMT: external ear and nose normal, oropharynx normal Neck: trachea midline, no thyromegaly Respiratory: normal respiratory effort; no respiratory distress Ausc ultation: lungs clear to auscultation bilaterally Cardiovascular: Rate/Rhythm: regular rate and regular rhythm Heart Sounds: no murmur Gastrointestinal (Abdomen): Inspection/Auscultation: abdomen normal to inspection and normal bowel sounds Musculoskeletal: No acute arthritis in any of the joints Lymphatic: no cervical or axillary lymphadenopathy Results & Data Vital Signs (Past 12 Hours) Vital Signs Temp Pulse Resp BP Pulse Ox 06/06/19 14:00 86 24 99 06/06/19 13:10 18 117/77 98 06/06/19 11:00 58 L 23 121/76 99 06/06/19 09:57 36.6 C 77 18 127/78 96 Laboratory Results Short CBC 06/06/19 Range/Units 11:46 WBC 5.20 (4.8-10.8) K/uL Hgb 12.3 (12.0-16.0) g/dL Hct 39.1 (37-47) % Plt Count 224 (130-400) K/uL BMP 06/06/19 11:46 Sodium 143 Potassium 3.8 Chloride 118 H Carbon Dioxide 19 L BUN 30 H Creatinine 0.91 Glucose 87 Calcium 8.9 Liver Function 06/06/19 Range/Units 11:46 Total Bilirubin 0.4 (0.2-1) mg/dl AST 13 L (15-37) U/L ALT 7 L (12-78) U/L Alkaline Phosphatase 68 (45-117) U/L Albumin 3.2 L (3.4-5.0) gm/dl Medications Administered Current Inpatient Medications Heparin Sodium (Porcine) (Heparin Sodium (Porcine)) 5,000 units SQ Q12 ASHUTOSH Stop: 07/06/19 20:59 Ioversol (Optiray 320 125ml) 120 ml IV ONCE PRN PRN Reason: Interaction Checking Stop: 06/10/19 12:51 Last Admin: 06/06/19 12:52 Dose: 120 ml Documented by: Code Status & VTE Plan VTE Prophylaxis Plan VTE Prophylaxis will be ordered: Yes (1) Thoracic aortic aneurysm Presence of rupture: without rupture Qualified Code(s): I71.2 - Thoracic aortic aneurysm, without rupture
[2019-06-06] MEDS ORDERED: PNEUMOCOCCAL Polysaccharide Vaccine 25mcg/0.5mL vial/Syr IM ONE (16:15)
[2019-06-06] MEDS ORDERED: INFLUENZA Vaccine HIGH DOSE 65+yrs 0.5 mL Syr IM ONE (16:15)
[2019-06-06] MEDS ORDERED: METOPROLOL TARTRATE 25 MG TAB PO ONE (16:17)
[2019-06-06] MEDS ORDERED: NON-FORMULARY MEDICATION (Cyanocobalamin (Vitamin B-12) 1,000 MCG) PO SCH (16:17)
[2019-06-06] MEDS ORDERED: IPRATROPIUM BROMIDE NASAL SPRAY 0.06% 15ML PRN (16:17)
[2019-06-06] MEDS: METAXALONE 800 MG TABLET PO SCH ×2 (17:00→20:54)
[2019-06-06] MEDS: DICLOFENAC SOD 1% GEL 100 GM TUBE EXT SCH ×2 (17:02→20:53)
[2019-06-06] MEDS: ROPINIROLE HCL 1 MG TABLET PO SCH ×2 (17:55→17:59)
[2019-06-06] MEDS: CARBIDOPA/LEVODOPA 25/100MG TAB PO SCH ×2 (17:56→17:59)
[2019-06-06] MEDS: TRAMADOL HCL 50 MG TABLET PO PRN (19:25)
[2019-06-06] MEDS: DOCUSATE SODIUM/SENNA 50/8.6MG TAB PO SCH (20:56)
[2019-06-06] MEDS: ROPINIROLE HCL 0.25 MG TABLET PO SCH (20:56)
[2019-06-06] MEDS: FLUTICASONE PROPIONATE NA SPR 16 GM BTL SCH (20:57)
[2019-06-06] MEDS: FLINTSTONES COMPLETE CHEWABLE TAB PO SCH (20:58)
[2019-06-06] MEDS: ATORVASTATIN 20 MG TAB PO SCH (20:58)
[2019-06-06] MEDS: HEPARIN SOD 5,000 UNIT/0.5 ML VIAL SQ SCH (20:58)
[2019-06-06] MEDS: MAGNESIUM OXIDE 400 MG TAB PO SCH (20:59)
[2019-06-06] MEDS: CALCIUM CITRATE 950 MG TAB PO SCH (20:59)
[2019-06-06] MEDS ORDERED: NON-FORMULARY MEDICATION (Biotin 1,000 MCG) PO SCH (21:00)
[2019-06-07] MEDS: ROPINIROLE HCL 1 MG TABLET PO SCH ×5 (00:17→23:34)
[2019-06-07] MEDS: CARBIDOPA/LEVODOPA 25/100MG TAB PO SCH ×5 (00:18→23:34)
[2019-06-07] MEDS ORDERED: ONDANSETRON INJ 2 MG/ML 2 ML VIAL IV PRN ×2 (04:43→05:48)
[2019-06-07] MEDS ORDERED: ONDANSETRON INJ 2 MG/ML 2 ML VIAL ONE (04:46)
[2019-06-07] MEDS: TRAMADOL HCL 50 MG TABLET PO PRN ×3 (05:17→17:12)
[2019-06-07] MEDS ORDERED: LORazepam 1 MG TAB PO STA ×2 (05:46→21:22)
[2019-06-07] MEDS: LEVOTHYROXINE SODIUM 50 MCG TABLET PO SCH (06:05)
[2019-06-07 06:06] LABS: Basophils # (auto) 0.02 K/uL (0-0.2); Basophils % (auto) 0.4 %; Eosinophils # (auto) 0.13 K/uL (0-0.5); Eosinophils % (auto) 2.4 %; Hematocrit (blood only) 35.6 % (37-47); Hemoglobin 11.3 g/dL (12.0-16.0); Immature Granulocytes # (auto) 0.01 K/uL (0.00-0.02); Immature Granulocytes % (auto) 0.2 %; Lymphocytes # (auto) 1.41 K/uL (1.2-3.4); Mean Corpuscular Hemoglobin 30.2 pg (25-34); Mean Corpuscular Hgb Conc 31.7 g/dL (32-36); Mean Corpuscular Volume 95.2 fL (80-100); Mean Platelet Volume 10.3 fL (7.4-10.4); Neutrophils # (auto) 3.26 K/uL (1.4-6.5); Platelet Count 209 K/uL (130-400); RDW Coefficient of Variation 15.9 % (11.5-14.5); RDW Standard Deviation 55.4 fL (36.4-46.3); Red Blood Count 3.74 M/uL (4.2-5.4); White Blood Count 5.43 K/uL (4.8-10.8)
[2019-06-07 06:51] LABS: BUN Creatinine Ratio 36.1 (10-20); Calcium 8.8 mg/dl (8.5-10.1); Creatinine Clr Calc Pharmacy 70.1 ml/min; Est GFR (Non-African American) 69.9; Magnesium 2.3 mg/dl (1.8-2.4); Potassium 4.2 mmol/L (3.5-5.1)
[2019-06-07] MEDS: FLUTICASONE PROPIONATE NA SPR 16 GM BTL SCH ×2 (07:43→20:44)
[2019-06-07] MEDS: DICLOFENAC SOD 1% GEL 100 GM TUBE EXT SCH ×4 (07:43→20:48)
[2019-06-07] MEDS: POTASSIUM CHLORIDE 20 MEQ TABCR PO SCH (07:43)
[2019-06-07] MEDS: FUROSEMIDE 20 MG TAB PO SCH (07:44)
[2019-06-07] MEDS: HEPARIN SOD 5,000 UNIT/0.5 ML VIAL SQ SCH ×2 (07:44→20:45)
[2019-06-07] MEDS: CALCIUM CITRATE 950 MG TAB PO SCH ×2 (07:44→20:44)
[2019-06-07] MEDS: PANTOprazole 40 MG TAB PO SCH (07:44)
[2019-06-07] MEDS: METAXALONE 800 MG TABLET PO SCH ×4 (07:44→20:48)
[2019-06-07] MEDS: DOCUSATE SODIUM/SENNA 50/8.6MG TAB PO SCH ×2 (07:44→20:45)
[2019-06-07] MEDS: OMEGA-3 (PURIFIED FISH OIL) 1 GM CAP PO SCH (07:44)
[2019-06-07] MEDS: FLINTSTONES COMPLETE CHEWABLE TAB PO SCH ×2 (07:44→20:46)
[2019-06-07] MEDS ORDERED: METOPROLOL TARTRATE 25 MG TAB PO SCH (09:00)
[2019-06-07] MEDS: ACETAMINOPHEN 500 MG TAB PO PRN ×2 (09:54→17:13)
--- NOTE | 2019-06-07 10:49 | Hospitalist Progress Note ---
Date of Service June 07, 2019 Assessment & Plan (1) Near syncope: Complaining of a near syncope with dizziness since yesterday morning Noted to have low blood pressure of systolic 90 and low heart rate at home on a wrist monitor Denies any recent fever and/or chills but noted to have mild dehydration EKG was in sinus rhythm with a rate of 62/min and imaging studies are unremarkable Admitted to telemetry unit to rule out bradyarrhythmia Will get orthostatics blood pressure and pulse-no significant orthostatic blood pressure and/or pulse changes and no symptoms associated with it We will get PT and OT evaluation before discharge her home tomorrow (2) Bradycardia: Has been on metoprolol tartrate 25 mill grams twice daily EKG was in sinus rhythm with a rate of 62 in the emergency room She noted her heart rate to be around 40s at home We will decrease the dose to 12.5 mg twice daily She has had an echo done about 6 months back and noted to be unremarkable Her heart rate remains more than 60 and blood pressure remains more than 110 Will likely continue with the metoprolol 12.5 mg twice daily and send her home tomorrow (3) Thoracic aortic aneurysm: CT scan of the chest and CT scan of the abdomen and pelvis did not show any increase in aneurysm (4) ISAC (generalized anxiety disorder): Has generalized anxiety (5) Restless leg syndrome: Complaints to have severe restless leg syndrome Has been taking the cube and Sinemet for that We will continue current medications (6) Hypothyroidism: Continue supplement DVT prophylaxis Subcu heparin CODE STATUS Full (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 Doubt any acute symptoms associated with EDS Was advised to keep regular appointment with her care provider Subjective 06/07 The patient was seen and examined in telemetry unit She does not complain any more dizziness but she has pain all over the body Her heart rate remains stable at more than 60 Denies any chest pain, palpitation, shortness of breath, any abdominal pain, nausea and/or vomiting Review of Systems Review of Systems: All systems reviewed and are unremarkable except as noted below Musculoskeletal: Exam pains all over the body Physical Exam Physical Exam: Sitting at the age of the bed without any apparent distress Constitutional: well developed, well nourished, + ill appearing and + obese; no acute distress Eyes: PERRL, conjunctivae normal, anicteric sclerae ENMT: external ear and nose normal, oropharynx normal Neck: trachea midline, no thyromegaly Respiratory: normal respiratory effort; no respiratory distress Auscul tation: lungs clear to auscultation bilaterally Cardiovascular: Rate/Rhythm: regular rate and regular rhythm Heart Sounds: no murmur Gastrointestinal (Abdomen): Inspection/Auscultation: abdomen normal to inspection and normal bowel sounds Musculoskeletal: No acute arthritis in any of the joints Psychiatric: A+Ox3, euthymic affect Lymphatic: no cervical or axillary lymphadenopathy Results & Data Vital Signs (Past 12 Hours) Vital Signs Temp Pulse Pulse Resp BP Pulse Ox 06/07/19 08:00 84 06/07/19 07:07 36.4 C L 79 18 103/68 96 06/07/19 03:33 36.8 C 70 20 101/62 95 06/06/19 23:54 36.3 C L 82 20 123/95 99 Laboratory Results Short CBC 06/06/19 06/07/19 Range/Units 11:46 05:25 WBC 5.20 5.43 (4.8-10.8) K/uL Hgb 12.3 11.3 L (12.0-16.0) g/dL Hct 39.1 35.6 L (37-47) % Plt Count 224 209 (130-400) K/uL [facility] 06/06/19 06/07/19 11:46 05:25 Sodium 143 143 Potassium 3.8 4.2 Chloride 118 H 118 H Carbon Dioxide 19 L 19 L BUN 30 H 31 H Creatinine 0.91 0.85 Glucose 87 96 Calcium 8.9 8.8 Liver Function 06/06/19 Range/Units 11:46 Total Bilirubin 0.4 (0.2-1) mg/dl AST 13 L (15-37) U/L ALT 7 L (12-78) U/L Alkaline Phosphatase 68 (45-117) U/L Albumin 3.2 L (3.4-5.0) gm/dl Medications Administered Current Inpatient Medications Acetaminophen (Tylenol) 500 mg PO QID PRN PRN Reason: Pain Stop: 07/06/19 16:16 Last Admin: 06/07/19 09:54 Dose: 500 mg Documented by: Albuterol (Ventolin Hfa) 2 puffs INH QID PRN PRN Reason: Shortness Of Breath Stop: 07/06/19 16:16 Atorvastatin Calcium (Lipitor) 20 mg PO QPM A[facility]UTOSH Stop: 07/06/19 20:59 Last Admin: 06/06/19 20:58 Dose: 20 mg Documented by: Calcium Citrate (Citracal) 950 mg PO BID A[facility]UTOSH Stop: 07/06/19 20:59 Last Admin: 06/07/19 07:44 Dose: 950 mg Documented by: Carbidopa/Levodopa (Sinemet 25/100 Mg) 1.5 tab PO Q6H A[facility]OSH Stop: 07/06/19 17:59 Last Admin: 06/07/19 06:04 Dose: 1.5 tab Documented by: Diclofenac Sodium (Voltaren 1% Top) 2 gm EXT QID A[facility]OS[facility] Stop: 07/06/19 16:59 Last Admin: 06/07/19 07:43 Dose: 2 gm Documented by: Ergocalciferol (Vitamin D2) 50,000 units PO Th@0900 [facility] Stop: 07/11/19 08:59 Fish Oil ([place]-3 (Purified Fish Oil)) 1 gm PO DAILY A[facility]UTOS[facility] Stop: 07/07/19 08:59 Last Admin: 06/07/19 07:44 Dose: 1 gm Documented by: Fluticasone Propionate (Flonase) 2 sprays NA BID A[facility]UTOSH Stop: 07/06/19 20:59 Last Admin: 06/07/19 07:43 Dose: 2 sprays Documented by: Furosemide (Lasix) 20 mg PO DAILY A[facility]OS[facility] Stop: 07/07/19 08:59 Last Admin: 06/07/19 07:44 Dose: 20 mg Documented by: Heparin Sodium (Porcine) (Heparin Sodium (Porcine)) 5,000 units SQ Q12 A[facility]UTOSH Stop: 07/06/19 20:59 Last Admin: 06/07/19 07:44 Dose: 5,000 units Documented by: Ioversol (Optiray 320 125ml) 120 ml IV ONCE PRN PRN Reason: Interaction Checking Stop: 06/10/19 12:51 Last Admin: 06/06/19 12:52 Dose: 120 ml Documented by: Ipratropium [place] (Atrovent Nasal [place] 0.06%) 2 sprays NA QID PRN PRN Reason: Nasal Congestion Stop: 07/06/19 16:16 Levothyroxine Sodium (Synthroid) 50 mcg PO DAILYBB ASHUTOSH Stop: 07/07/19 06:29 Last Admin: 06/07/19 06:05 Dose: 50 mcg Documented by: Magnesium Oxide (Mag-Ox) 400 mg PO QPM A[facility]UTOSH Stop: 07/06/19 20:59 Last Admin: 06/06/19 20:59 Dose: 400 mg Documented by: Metaxalone (Skelaxin) 800 mg PO QID A[facility]OS[facility] Stop: 07/06/19 16:59 Last Admin: 06/07/19 07:44 Dose: 800 mg Documented by: Multivitamins/Folic Acid/Vitamin C (Flintstones Complete Chew Tab) 1 tab PO BID ASHUTOSH Stop: 07/06/19 20:59 Last Admin: 06/07/19 07:44 Dose: 1 tab Documented by: Ondansetron HCl (Zofran) 4 mg IV Q6H PRN PRN Reason: Nausea Stop: 07/07/19 04:42 Ondansetron HCl (Zofran) 4 mg IV Q6H PRN PRN Reason: Nausea Stop: 07/07/19 05:47 Pantoprazole Sodium (Protonix) 40 mg PO QAM ASHUTOSH Stop: 07/07/19 08:59 Last Admin: 06/07/19 07:44 Dose: 40 mg Documented by: Potassium Chloride (Klor-Con M20) 20 meq PO DAILY ASHUTOSH Stop: 07/07/19 08:59 Last Admin: 06/07/19 07:43 Dose: 20 meq Documented by: Ropinirole HCl (Requip) 1 mg PO Q6 ASHUTOSH Stop: 07/06/19 17:59 Last Admin: 06/07/19 06:04 Dose: 1 mg Documented by: Ropinirole HCl (Requip) 0.5 mg PO HS ASHUTOSH Stop: 07/06/19 20:59 Last Admin: 06/06/19 20:56 Dose: 0.5 mg Documented by: Senna/Docusate Sodium (Senokot S) 1 tab PO BID ASHUTOSH Stop: 07/06/19 20:59 Last Admin: 06/07/19 07:44 Dose: 1 tab Documented by: Tramadol HCl (Ultram) 50 mg PO Q6 PRN PRN Reason: Pain Stop: 07/06/19 16:16 Last Admin: 06/07/19 05:17 Dose: 50 mg Documented by: (1) Thoracic aortic aneurysm Presence of rupture: without rupture Qualified Code(s): I71.2 - Thoracic aortic aneurysm, without rupture
[2019-06-07] MEDS: ALBUTEROL HFA 8 GM INHALER INH PRN (16:20)
[2019-06-07] MEDS: ROPINIROLE HCL 0.25 MG TABLET PO SCH (20:45)
[2019-06-07] MEDS: MAGNESIUM OXIDE 400 MG TAB PO SCH (20:45)
[2019-06-07] MEDS: ATORVASTATIN 20 MG TAB PO SCH (20:47)
[2019-06-07] MEDS ORDERED: DOXYCYCLINE HYCLATE 100 MG CAP PO SCH (21:45)
[2019-06-07] MEDS: DOXYCYCLINE HYCLATE 100 MG CAP PO SCH (23:33)
[2019-06-08] MEDS: ALBUTEROL HFA 8 GM INHALER INH PRN (01:58)
[2019-06-08] MEDS: FLINTSTONES COMPLETE CHEWABLE TAB PO SCH (08:05)
[2019-06-08] MEDS: FUROSEMIDE 20 MG TAB PO SCH (08:06)
[2019-06-08] MEDS: METAXALONE 800 MG TABLET PO SCH ×2 (08:08→13:15)
[2019-06-08] MEDS: PANTOprazole 40 MG TAB PO SCH (08:08)
[2019-06-08] MEDS: OMEGA-3 (PURIFIED FISH OIL) 1 GM CAP PO SCH (08:08)
[2019-06-08] MEDS: CALCIUM CITRATE 950 MG TAB PO SCH (08:09)
[2019-06-08] MEDS: CARBIDOPA/LEVODOPA 25/100MG TAB PO SCH ×2 (08:10→12:03)
[2019-06-08] MEDS: LEVOTHYROXINE SODIUM 50 MCG TABLET PO SCH (08:10)
[2019-06-08] MEDS: DOCUSATE SODIUM/SENNA 50/8.6MG TAB PO SCH (08:10)
[2019-06-08] MEDS: TRAMADOL HCL 50 MG TABLET PO PRN (08:11)
[2019-06-08] MEDS: ACETAMINOPHEN 500 MG TAB PO PRN (08:12)
[2019-06-08] MEDS: ROPINIROLE HCL 1 MG TABLET PO SCH ×2 (08:13→12:03)
[2019-06-08] MEDS: POTASSIUM CHLORIDE 20 MEQ TABCR PO SCH (08:16)
[2019-06-08] MEDS: FLUTICASONE PROPIONATE NA SPR 16 GM BTL SCH (08:17)
[2019-06-08] MEDS: DICLOFENAC SOD 1% GEL 100 GM TUBE EXT SCH ×2 (08:18→13:15)
[2019-06-08] MEDS: HEPARIN SOD 5,000 UNIT/0.5 ML VIAL SQ SCH (08:18)
[2019-06-08] MEDS: DOXYCYCLINE HYCLATE 100 MG CAP PO SCH (10:48)
--- NOTE | 2019-06-08 11:30 | Hospitalist Progress Note ---
Date of Service June 08, 2019 Assessment & Plan (1) Near syncope: Complaining of a near syncope with dizziness since yesterday morning Noted to have low blood pressure of systolic 90 and low heart rate at home on a wrist monitor Denies any recent fever and/or chills but noted to have mild dehydration EKG was in sinus rhythm with a rate of 62/min and imaging studies are unremarkable Admitted to telemetry unit to rule out bradyarrhythmia Will get orthostatics blood pressure and pulse-no significant orthostatic blood pressure and/or pulse changes and no symptoms associated with it We will get PT and OT evaluation before discharge her home tomorrow No orthostatic BP and/or pulse changes and no symptoms Heart rate remains stable and blood pressure stable Will be sent home this afternoon (2) Bradycardia: Has been on metoprolol tartrate 25 mill grams twice daily EKG was in sinus rhythm with a rate of 62 in the emergency room She noted her heart rate to be around 40s at home We will decrease the dose to 12.5 mg twice daily She has had an echo done about 6 months back and noted to be unremarkable Her heart rate remains more than 60 and blood pressure remains more than 110 Will likely continue with the metoprolol 12.5 mg twice daily and send her home tomorrow No more bradycardia noted following decreasing the dose of beta-nathan (3) Thoracic aortic aneurysm: CT scan of the chest and CT scan of the abdomen and pelvis did not show any increase in aneurysm (4) ISAC (generalized anxiety disorder): Has generalized anxiety (5) Restless leg syndrome: Complaints to have severe restless leg syndrome Has been taking the cube and Sinemet for that We will continue current medications (6) Hypothyroidism: Continue supplement DVT prophylaxis Subcu heparin CODE STATUS Full (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 Doubt any acute symptoms associated with EDS Was advised to keep regular appointment with her care provider Discussed with the patient and the family members Will be discharged this afternoon Subjective 06/07 The patient was seen and examined in telemetry unit She does not complain any more dizziness but she has pain all over the body Her heart rate remains stable at more than 60 Denies any chest pain, palpitation, shortness of breath, any abdominal pain, nausea and/or vomiting 06/08 The patient was seen and examined in telemetry unit She has been ambulating well and got physical therapy without any problem Heart rate remains stable and blood pressure remains stable to Denies any significant symptoms Review of Systems Review of Systems: All systems reviewed and are unremarkable except as noted below Musculoskeletal: Exam pains all over the body Physical Exam Physical Exam: Sitting at the edge of the bed without any symptoms Constitutional: well developed, well nourished, + ill appearing and + obese; no acute distress Eyes: PERRL, conjunctivae normal, anicteric sclerae ENMT: external ear and nose normal, oropharynx normal Neck: trachea midline, no thyromegaly Respiratory: normal respiratory effort; no respiratory distress Auscultation: lungs clear to auscultation bilaterally Cardiovascular: Rate/Rhythm: regular rate and regular rhythm Heart Sounds: no murmur Gastrointestinal (Abdomen): Inspection/Auscultation: abdomen normal to inspection and normal bowel sounds Psychiatric: A+Ox3, euthymic affect Lymphatic: no cervical or axillary lymphadenopathy Results & Data Vital Signs (Past 12 Hours) Vital Signs Temp Pulse Pulse Resp BP BP Pulse Ox 06/08/19 11:24 36.3 C L 79 14 114/87 95 06/08/19 08:35 36.5 C 81 18 124/81 97 06/08/19 08:00 74 06/08/19 03:19 36.4 C L 79 20 114/82 95 06/07/19 23:51 36.3 C L 82 18 117/82 95 Medications Administered Current Inpatient Medications Acetaminophen (Tylenol) 500 mg PO QID PRN PRN Reason: Pain Stop: 07/06/19 16:16 Last Admin: 06/08/19 08:12 Dose: 500 mg Documented by: Albuterol (Ventolin Hfa) 2 puffs INH QID PRN PRN Reason: Shortness Of Breath Stop: 07/06/19 16:16 Last Admin: 06/08/19 01:58 Dose: 2 puffs Documented by: Atorvastatin Calcium (Lipitor) 20 mg PO QPM A[facility]UTOSH Stop: 07/06/19 20:59 Last Admin: 06/07/19 20:47 Dose: 20 mg Documented by: Calcium Citrate (Citracal) 950 mg PO BID A[facility]OSH Stop: 07/06/19 20:59 Last Admin: 06/08/19 08:09 Dose: 950 mg Documented by: Carbidopa/Levodopa (Sinemet 25/100 Mg) 1.5 tab PO Q6H A[facility]OS[facility] Stop: 07/06/19 17:59 Last Admin: 06/08/19 08:10 Dose: 1.5 tab Documented by: Diclofenac Sodium (Voltaren 1% Top) 2 gm EXT QID A[facility]OS[facility] Stop: 07/06/19 16:59 Last Admin: 06/08/19 08:18 Dose: 2 gm Documented by: Doxycycline Hyclate (Vibramycin) 100 mg PO BID@1000,2200 [facility]; Protocol Stop: 06/14/19 21:59 Last Admin: 06/08/19 10:48 Dose: 100 mg Documented by: Ergocalciferol (Vitamin D2) 50,000 units PO Th@0900 [facility] Stop: 07/11/19 08:59 Fish Oil ([place]-3 (Purified Fish Oil)) 1 gm PO DAILY A[facility]OS[facility] Stop: 07/07/19 08:59 Last Admin: 06/08/19 08:08 Dose: 1 gm Documented by: Fluticasone Propionate (Flonase) 2 sprays NA BID A[facility]OS[facility] Stop: 07/06/19 20:59 Last Admin: 06/08/19 08:17 Dose: 2 sprays Documented by: Furosemide (Lasix) 20 mg PO DAILY A[facility] Stop: 07/07/19 08:59 Last Admin: 06/08/19 08:06 Dose: 20 mg Documented by: Heparin Sodium (Porcine) (Heparin Sodium (Porcine)) 5,000 units SQ Q12 A[facility]OS[facility] Stop: 07/06/19 20:59 Last Admin: 06/08/19 08:18 Dose: 5,000 units Documented by: Ioversol (Optiray 320 125ml) 120 ml IV ONCE PRN PRN Reason: Interaction Checking Stop: 06/10/19 12:51 Last Admin: 06/06/19 12:52 Dose: 120 ml Documented by: Ipratropium [place] (Atrovent Nasal [place] 0.06%) 2 sprays NA QID PRN PRN Reason: Nasal Congestion Stop: 07/06/19 16:16 Levothyroxine Sodium (Synthroid) 50 mcg PO DAILYBB [facility] Stop: 07/07/19 06:29 Last Admin: 06/08/19 08:10 Dose: 50 mcg Documented by: Magnesium Oxide (Mag-Ox) 400 mg PO QPM A[facility]OSH Stop: 07/06/19 20:59 Last Admin: 06/07/19 20:45 Dose: 400 mg Documented by: Metaxalone (Skelaxin) 800 mg PO QID A[facility]OS[facility] Stop: 07/06/19 16:59 Last Admin: 06/08/19 08:08 Dose: 800 mg Documented by: Multivitamins/Folic Acid/Vitamin C (Flintstones Complete Chew Tab) 1 tab PO BID A[facility]OSH Stop: 07/06/19 20:59 Last Admin: 06/08/19 08:05 Dose: 1 tab Documented by: Ondansetron HCl (Zofran) 4 mg IV Q6H PRN PRN Reason: Nausea Stop: 07/07/19 04:42 Last Admin: 06/07/19 12:15 Dose: 4 mg Documented by: Ondansetron HCl (Zofran) 4 mg IV Q6H PRN PRN Reason: Nausea Stop: 07/07/19 05:47 Pantoprazole Sodium (Protonix) 40 mg PO QAM [facility] Stop: 07/07/19 08:59 Last Admin: 06/08/19 08:08 Dose: 40 mg Documented by: Potassium Chloride (Klor-Con M20) 20 meq PO DAILY A[facility] Stop: 07/07/19 08:59 Last Admin: 06/08/19 08:16 Dose: 20 meq Documented by: Ropinirole HCl (Requip) 1 mg PO Q6 [facility] Stop: 07/06/19 17:59 Last Admin: 06/08/19 08:13 Dose: 1 mg Documented by: Ropinirole HCl (Requip) 0.5 mg PO HS [facility] Stop: 07/06/19 20:59 Last Admin: 06/07/19 20:45 Dose: 0.5 mg Documented by: Senna/Docusate Sodium (Senokot S) 1 tab PO BID A[facility]OSH Stop: 07/06/19 20:59 Last Admin: 06/08/19 08:10 Dose: 1 tab Documented by: Tramadol HCl (Ultram) 50 mg PO Q6 PRN PRN Reason: Pain Stop: 07/06/19 16:16 Last Admin: 06/08/19 08:11 Dose: 50 mg Documented by: (1) Thoracic aortic aneurysm Presence of rupture: without rupture Qualified Code(s): I71.2 - Thoracic aortic aneurysm, without rupture
--- NOTE | 2019-06-08 18:20 | Discharge Summary ---
Date of Service June 08, 2019 Admission HPI Per Admitting Provider C 69-year-old obese female with significant past medical history of thoracic aortic aneurysm, LS Danlos syndrome, GERD, ascending aortic aneurysm, hypothyroidism and severe restless leg syndrome apparently has been complaining of dizziness with near syncope since 10 AM yesterday. She denies to have recent fever and/or chills or any viral syndrome. As soon as she felt dizzy she checked her blood pressure and pulse with her wrist monitor. She noted the blood pressure to be around 90 systolic and she tried to take rest to get rid of the symptoms. She got up and started to walk around and felt dizzy again she did not have any other warning before she was going to collapse and she again took rest and lie down. She was noted to have her pulse to be around 40s during these episodes she did not take her Lasix and/or metoprolol this morning and called her provider and was advised to come to the emergency room for further evaluation. She denies any chest pain and/or palpitation, any shortness of breath and/or sweating, any abdominal pain, nausea and/or vomiting. She denies any increasing swelling of the legs. She has been very anxious and she is upset that these things are happening to her. She did not have any significant Lab abnormalities in the emergency room and her scan did not show any any significant change with her aneurysm but given the history of bradycardia arrhythmia and near syncope she was admitted to telemetry unit for continuation of care. Admission Exam Per Admitting Provider Physical Exam: Sitting at the edge of the bed without any acute symptoms. Constitutional: well developed, well nourished, + ill appearing and + obese; no acute distress Eyes: PERRL, conjunctivae normal, anicteric sclerae ENMT: external ear and nose normal, oropharynx normal Neck: trachea midline, no thyromegaly Respiratory: normal respiratory effort; no respiratory distress Auscultation: lungs clear to auscultation bilaterally Cardiovascular: Rate/Rhythm: regular rate and regular rhythm Heart Sounds: no murmur Gastrointestinal (Abdomen): Inspection/Auscultation: abdomen normal to inspection and normal bowel sounds Musculoskeletal: No acute arthritis in any of the joints Lymphatic: no cervical or axillary lymphadenopathy Principal Diagnosis Presyncope-no more episodes. Bradyarrhythmia-resolved Discharge Exam Constitutional well developed, well nourished, + ill appearing and + obese; no acute distress Eyes PERRL, conjunctivae normal, anicteric sclerae ENMT external ear and nose normal, oropharynx normal Neck trachea midline, no thyromegaly Respiratory normal respiratory effort; no respiratory distress Auscultation: lungs clear to auscultation bilaterally Cardiovascular Rate/Rhythm: regular rate and regular rhythm Heart Sounds: no murmur Gastrointestinal (Abdomen) Inspection/Auscultation: abdomen normal to inspection and normal bowel sounds Psychiatric A+Ox3, euthymic affect Lymphatic no cervical or axillary lymphadenopathy Discharge Data Allergies Allergy/AdvReac Type Severity Reaction Status Date / Time buspirone Allergy Severe NEURO Verified 06/06/19 11:28 COMPLICATIONS lisinopril Allergy Intermediate cough Verified 06/06/19 11:28 ammonia Allergy Unknown SWELLING Verified 06/06/19 11:28 duloxetine Allergy Unknown RASH Verified 06/06/19 11:28 ITCHING NSAIDS (Non-Steroidal Allergy Unknown not Verified 06/06/19 11:28 Anti-Inflamma supposed to use-S/P GASTRIC BYPASS venlafaxine Allergy Unknown AFFECTS Verified 06/06/19 11:28 LEGS diphenhydramine AdvReac Unknown RESTLESS Verified 06/06/19 11:28 LEGS Dust Allergy Unknown ROACHES,DUST Uncoded 06/06/19 11:28 MITES-CLOGGED UP SINUSES-CAN'T BREATHE Consultations 06/06/19 14:08 ED Decision to Admit Stat Ordered Studies 06/06/19 10:16 CT angio abdomen pelvis w con Stat CT angio chest dissec wo/w con Stat Hospital Course (1) Near syncope: Complaining of a near syncope with dizziness since yesterday morning Noted to have low blood pressure of systolic 90 and low heart rate at home on a wrist monitor Denies any recent fever and/or chills but noted to have mild dehydration EKG was in sinus rhythm with a rate of 62/min and imaging studies are unremarkable Admitted to telemetry unit to rule out bradyarrhythmia Will get orthostatics blood pressure and pulse-no significant orthostatic blood pressure and/or pulse changes and no symptoms associated with it We will get PT and OT evaluation before discharge her home tomorrow No orthostatic BP and/or pulse changes and no symptoms Heart rate remains stable and blood pressure stable Will be sent home this afternoon (2) Bradycardia: Has been on metoprolol tartrate 25 mill grams twice daily EKG was in sinus rhythm with a rate of 62 in the emergency room She noted her heart rate to be around 40s at home We will decrease the dose to 12.5 mg twice daily She has had an echo done about 6 months back and noted to be unremarkable Her heart rate remains more than 60 and blood pressure remains more than 110 Will likely continue with the metoprolol 12.5 mg twice daily and send her home tomorrow No more bradycardia noted following decreasing the dose of beta-nathan (3) Thoracic aortic aneurysm: CT scan of the chest and CT scan of the abdomen and pelvis did not show any increase in aneurysm (4) ISAC (generalized anxiety disorder): Has generalized anxiety (5) Restless leg syndrome: Complaints to have severe restless leg syndrome Has been taking the cube and Sinemet for that We will continue current medications (6) Hypothyroidism: Continue supplement DVT prophylaxis Subcu heparin CODE STATUS Full (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 Bradyarrhythmia-resolved Condition on Discharge: Good Activity: Resume your previous activity Non-emergency contact: Primary Care Provider Call non-emergency contact if: you have any medication questions and your sympt oms worsen Follow-up/Referrals: Lavern Gomez DO [Primary Care Provider] - 06/12/19 1:00 pm (Your appointment is with Dr. Pyle. Dr. Oakley is not available. Please keep regular appointment with your service correspondent.) Diet: Heart Healthy Addtl Attending Provider Instructions: Please take precaution to avoid falls. Take your Lasix Lasix for a day or 2 if there is increase in weight about 2 to 3 pounds over a week Your metoprolol dose has been decreased to 12.5 mg twice a day. Pending Studies at Discharge: No Stand-Alone Forms: Ribbon, Smoking Cessation Medications and DC Order Prescriptions: Continued atorvastatin 20 mg Tablet 20 mg PO QPM RF: 0 sennosides-docusate sodium [Senna-S] 8.6-50 mg Tablet 1 tab PO BID RF: 0 tramadol 50 mg Tablet 50 mg PO Q6 PRN (Reason: Pain) RF: 0 acetaminophen [Tylenol Extra Strength] 500 mg Tablet 500 mg PO QID PRN (Reason: Pain) RF: 0 potassium chloride [Klor-Con M20] 20 mEq Tablet,Er Particles/Crystals 20 meq PO DAILY RF: 0 levothyroxine [Synthroid] 50 mcg Tablet 50 mcg PO QAM RF: 0 magnesium 250 mg Tablet 500 mg PO QPM RF: 0 ergocalciferol (vitamin D2) 50,000 unit Capsule 50,000 unit PO WK RF: 0 albuterol sulfate [Ventolin HFA] 90 mcg/actuation Hfa Aerosol Inhaler 2 puff INHALATION QID PRN (Reason: Shortness Of Breath) RF: 0 carbidopa-levodopa [Sinemet] 25-100 mg Tablet 1.5 tab PO QID RF: 0 ondansetron 4 mg Tablet,Disintegrating 4 mg PO QID PRN (Reason: Nausea) RF: 0 fluticasone propionate [Flonase Allergy Relief] 50 mcg/actuation [place],Suspension 2 spray INTRANASAL BID RF: 0 ipratropium bromide 0.03 % [place],Non-Aerosol 2 spray INTRANASAL QID PRN (Reason: Nasal Congestion) RF: 0 calcium citrate 200 mg (950 mg) Tablet 650 mg PO BID RF: 0 metaxalone [Metaxall] 800 mg Tablet 800 mg PO QID RF: 0 diclofenac sodium [Voltaren] 1 % Gel 2 g TOPICAL QID RF: 0 omeprazole 20 mg Tablet,Delayed Release (Dr/Ec) 20 mg PO QAM RF: 0 [place] with Iron 18 mg iron Tablet,Chewable 1 tab PO BID RF: 0 [place]-3 Fish Oil 300-1,000 mg Capsule 1 tab PO DAILY RF: 0 biotin 1,000 mcg Tablet,Chewable 1,000 mcg PO QPM RF: 0 Linzess 72 mcg Capsule 1 - 2 tab PO DAILY RF: 0 cyanocobalamin (vitamin B-12) 1,000 mcg Capsule 1,000 mcg PO MONTHLY RF: 0 doxycycline hyclate [Vibramycin] 100 mg capsule 100 mg PO BID RF: 0 ropinirole 0.5 mg tablet 1 mg PO QID RF: 0 ropinirole 0.5 mg tablet 0.5 mg PO HS RF: 0 furosemide [Lasix] 20 mg Tablet 20 mg PO DAILY Qty: 0 RF: 0 Changed metoprolol tartrate 25 mg Tablet 12.5 mg PO BID Qty: 0 RF: 0 Discharge Orders: Discharge Order (Routine); Ordered 06/08/19 Ordered By: Radha South Admission Data Admit Date/Time: 06/06/19 15:27 Attending Provider: Radha South Admit Provider: Radha South Primary Care Provider: Lavern Gomez Other Providers: Radha South ; [facility] Other Interventions: Discharge Summary Assessment (RN) Last Done: 06/08/19 13:22 DC Date/Time DO NOT enter until pt leaves facility: 06/08/19 14:08
[2019-06-11] MEDS ORDERED: ERGOCALCIFEROL 50,000 UNITS CAP PO SCH (09:00)
== END 2019-06-08 14:08 | disposition home health service (06) | DRG 312 ==
LOC: ED 09:53 → 2E 15:27

== ENCOUNTER 2020-11-17 08:09 | Inpatient (IN) ==
[2020-11-17] MEDS ORDERED: MoRPHine SULFATE 4 MG/ML 1 ML CARP\\VIAL IV STA (09:23)
[2020-11-17] MEDS ORDERED: ONDANSETRON INJ 2 MG/ML 2 ML VIAL IV STA (09:23)
[2020-11-17 09:50] LABS: Basophils # (auto) 0.01 K/uL (0-0.2); Basophils % (auto) 0.1 %; Eosinophils # (auto) 0.01 K/uL (0-0.5); Eosinophils % (auto) 0.1 %; Hematocrit (blood only) 39.6 % (37-47); Hemoglobin 12.5 g/dL (12.0-16.0); Immature Granulocytes # (auto) 0.01 K/uL (0.00-0.02); Immature Granulocytes % (auto) 0.1 %; Lymphocytes # (auto) 1.08 K/uL (1.2-3.4); Mean Corpuscular Hgb Conc 31.6 g/dL (32-36); Mean Corpuscular Volume 98.3 fL (80-100); Monocytes # (auto) 1.35 K/uL (0.11-0.59); Monocytes % (auto) 13.7 %; Neutrophils # (auto) 7.38 K/uL (1.4-6.5); Platelet Count 265 K/uL (130-400); RDW Coefficient of Variation 14.6 % (11.5-14.5); RDW Standard Deviation 52.6 fL (36.4-46.3); Red Blood Count 4.03 M/uL (4.2-5.4); White Blood Count 9.84 K/uL (4.8-10.8)
[2020-11-17 09:59] LABS: Prothrombin Time 28.3 Seconds (9.0-12.0)
[2020-11-17 10:11] LABS: Albumin Level 3.3 gm/dl (3.4-5.0); BUN Creatinine Ratio 26.9 (10-20); C Reactive Protein 2.58 mg/dl (0-0.29); Calcium 9.6 mg/dl (8.5-10.1); Creatinine Clr Calc Pharmacy 77.2 ml/min; Est GFR (African American) 98.3 ml/min; Est GFR (Non-African American) 84.9 ml/min; Potassium 3.4 mmol/L (3.5-5.1); Uric Acid 4.3 mg/dl (2.6-7.2)
[2020-11-17 10:14] LABS: Albumin Globulin Ratio 0.9 (0.9-2); Bilirubin,Total 0.5 mg/dl (0.2-1); Globulin 3.6 gm/dl (2.5-4.0); Total Protein 6.9 gm/dl (6.4-8.2)
--- NOTE | 2020-11-17 10:21 | XRay Report ---
XR foot RT min 3V routine HISTORY: 70 years-old Female Pain swelling acute right foot pain with soft tissue swelling. No repor sergo trauma COMPARISON: None TECHNIQUE: 3 views of the right foot FINDINGS: Demineralized appearance of the bones. A millimeter corticated ossification medial to the first MTP j oint may reflect chronic fracture fragment. 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 Moderate sized plantar enthesophyte of the calcaneus. Mild dorsal forefoot soft tiss ue swelling. No acute fracture or dislocation. IMPRESSION: Soft tissue swelling without acute fracture or dislocation. ACT 112: Negative or not required by law. The above report was generated using voice recognition software. It may contain grammatical, syntax o r spelling errors. Electronically signed by: Keshawn Foster M.D. 11/17/2020 10:19 AM
[2020-11-17] MEDS ORDERED: cefTRIAXone SODIUM 2,000 MG/70 ML BAG IV STA (10:55)
--- NOTE | 2020-11-17 11:44 | History & Physical Report ---
Date of Service November 17, 2020 Assessment & Plan (1) Cellulitis of right foot: This is a 70yo F with a PMH of Edenilson-Danlos syndrome, intermittent asthma, hypertension, chronic diastolic heart failure, paroxysmal SVT on Coumadin, RLS, anxiety, BRANDIE intolerant to CPAP and other medical problems listed below who presents with R foot pain over the past month. Recent foot XR at [facility] without evidence of fracture XR today showing soft tissue swelling without acute fracture or dislocation Has tried lidocaine to foot in the past but had skin irritation -has been seen multiple times in clinic for foot pain Afebrile, no leukocytosis. ESR elevated at 47. CRP elevated at 2.58 Ordering MRI of foot for better visualization, rule out osteomyelitis Continue empiric abx with rocephin, vanco. 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 Continue home dose metoprolol tartrate (7) ISAC (generalized anxiety disorder): Hydroxyzine as needed (8) Restless leg syndrome: Continue Requip (9) Hypothyroidism: Continue levothyroxine (10) Gastroparesis: Continue Linzess, antiemetics as needed, bowel regimen per home med rec (11) Asthma: Continue Singulair, home inhalers (12) Thoracic aortic aneurysm: Follows with Dr. Arredondo (13) Sleep apnea: Intolerant to CPAP DVT Ppx: coumadin Code status: FULL PCP: Jason Dispo: Admitted to [facility]. Discharge planning ordered Patient seen in collaboration with Dr. Santana. Please see addendum. History of Present Illness Chief Complaint: Foot pain Primary Care Provider: Debbie Otero PA-C This is a 70yo F with a PMH of Edenilson-Danlos syndrome, intermittent asthma, hypertension, chronic diastolic heart failure, paroxysmal SVT on Coumadin, RLS, anxiety, BRANDIE intolerant to CPAP and other medical problems listed below who presents with R foot pain over the past month. Recent foot XR at [facility] without evidence of fracture. Denies any trauma to foot but states its difficult to know for sure with underlying neuropathy. Denies history of osteomyelitis in the past but seems to have longstanding issues with pain in feet, per chart review. Pain is currently 8/10 and described as stinging and aching. Pain improved after 4mg IV morphine but has slowly returned. Takes tramadol at home with some relief. Difficult to ambulate. Denies any fever, chills, light headedness, headache. Chest is tight and has 2-5 minute episodes of "twinging pain" she has had intermittently over the past month. Attributes this to anxiety, specifically about pain in foot. No shortness of breath. Feeling nauseated and bloated which she attributes to missed AM dose of Linzess. Denies vomiting. No dysuria or constipation. Allergies Allergy/AdvReac Type Severity Reaction Status Date / Time buspirone Allergy Severe NEURO Verified 11/17/20 08:37 COMPLICATIONS lisinopril Allergy Intermediate cough Verified 11/17/20 08:37 adhesive Allergy Mild skin tears Verified 11/17/20 08:37 ammonia Allergy Unknown SWELLING Verified 11/17/20 08:37 duloxetine Allergy Unknown RASH Verified 11/17/20 08:37 ITCHING NSAIDS (Non-Steroidal Allergy Unknown not Verified 11/17/20 08:37 Anti-Inflamma supposed to use-S/P GASTRIC BYPASS venlafaxine Allergy Unknown AFFECTS Verified 11/17/20 08:37 LEGS diphenhydramine AdvReac Unknown RESTLESS Verified 11/17/20 08:37 LEGS Dust Allergy Unknown ROACHES,DUST Uncoded 11/17/20 08:37 MITES-CLOGGED UP SINUSES-CAN'T BREATHE Home Medications Medication Instructions Recorded Confirmed Type [place]-3 Fish Oil 1 tab PO HS 04/15/18 11/17/20 History albuterol sulfate [Ventolin HFA] 2 puff INHALATION QID PRN 04/15/18 11/17/20 History atorvastatin 20 mg PO HS 04/15/18 11/17/20 History biotin 1,000 mcg PO HS 04/15/18 11/17/20 History calcium citrate 650 mg PO BID 10/09/18 05/13/21 History carbidopa-levodopa [Sinemet] 1 tab PO QID 04/15/18 11/17/20 History diclofenac sodium [Voltaren] 2 g TOPICAL QID 04/15/18 11/17/20 History ergocalciferol (vitamin D2) 50,000 unit PO WK 04/15/18 11/17/20 History fluticasone propionate [Flonase 2 spray INTRANASAL BID 04/15/18 11/17/20 History Allergy Relief] ipratropium bromide 2 spray INTRANASAL QID PRN 04/15/18 11/17/20 History magnesium 500 mg PO HS 04/15/18 11/17/20 History metaxalone [Metaxall] 800 mg PO QID 04/15/18 11/17/20 History omeprazole 20 mg PO QAM 04/15/18 11/17/20 History ondansetron 4 mg PO QID PRN 04/15/18 11/17/20 History sennosides-docusate sodium 1 tab PO BID PRN 04/15/18 11/17/20 History [Senna-S] tramadol 50 mg PO Q8H PRN 04/15/18 11/17/20 History ropinirole 0.5 mg PO DIRECTED 06/06/19 11/17/20 History cyanocobalamin (vitamin B-12) 1,000 mcg IM MONTHLY 08/09/19 11/17/20 History metoprolol tartrate 25 mg PO DAILY 08/09/19 11/17/20 History PreserVision AREDS-2 1 tab PO BID 01/18/20 11/17/20 History thiamine HCl (vitamin B1) 100 mg PO BID 01/18/20 11/17/20 History docusate sodium [Colace] 50 mg PO BID PRN 11/17/20 11/17/20 History fluticasone propion-salmeterol 1 inh INHALATION BID 11/17/20 11/17/20 History furosemide [Lasix] 40 mg PO DAILY 11/17/20 11/17/20 History hydroxyzine HCl 25 mg PO Q6H PRN 11/17/20 11/17/20 History ipratropium-albuterol 3 ml INHALATION QID 11/17/20 11/17/20 History levothyroxine 50 mcg PO DAILY 11/17/20 11/17/20 History linaclotide [Linzess] 290 mcg PO DAILY@1500 11/17/20 11/17/20 History metoprolol tartrate 12.5 mg PO HS 11/17/20 11/17/20 History montelukast 10 mg PO HS 11/17/20 11/17/20 History mupirocin 1 applic TOPICAL TID 11/17/20 11/17/20 History trazodone 25 mg PO HS PRN 11/17/20 11/17/20 History warfarin 2.5 mg PO SUMOWETHFR@1600 11/17/20 11/17/20 History warfarin 5 mg PO TUSA@1600 11/17/20 11/17/20 History Past Med/Surg History Medical History (Updated 11/17/20 @ 14:15 by Sara Kerns PA-C) ADHD Asthma uses PRN INH 3-4 x wk Bulging of intervertebral disc Claustrophobia Difficult intravenous access Dysphagia Edenilson-Danlos syndrome ISAC (generalized anxiety disorder) Gastroparesis GERD (gastroesophageal reflux disease) Hearing deficit History of colon polyps History of colon polyps History of DVT (deep vein thrombosis) chronic anticoagulation History of intestinal obstruction Hyperlipidemia Hypothyroidism Osteoarthritis Osteoporosis Peripheral neuropathy Protein C deficiency Pulmonary embolism 07/2018 - treated w/ lovenox - unk etiology Renal cyst Restless leg syndrome Sleep apnea unable to tolerate CPAP Tachycardia Thoracic aortic aneurysm follows w/ Dr. Arredondo - evaluated within last 6 mo Thyroid nodule Surgical History History of abdominoplasty + hernia repair History of arthroscopy of left knee History of bilateral breast reduction surgery History of cholecystectomy History of colonoscopy History of esophagogastroduodenoscopy (EGD) History of gastric bypass History of intestinal surgery History of laparotomy History of left knee replacement History of right knee joint replacement History of tonsillectomy Hx of melanoma excision shoulder S/P hysterectomy Self extubation attempted post gastric bypass Status post biopsy of thyroid gland benign Family History Uncle Stomach cancer Other No family history of adverse response to anesthesia No pertinent family history in first degree relatives Social History Smoking Status: Never smoker Second Hand Exposure: No; Hx Alcohol Use: No Hx Substance Use: No Preferred Language: Trinidadian Communication Ability: Effective Visual Impairment: Limited Hearing Ability: Normal Rail Setter Required: No Beliefs That Will Affect Care: None Current Living Situation: Alone Current Living Situation Comment: has friends to help when needed Other Information That Helps Us Care for You: No Feels Safe at Home: Yes Safety Concerns: Feels Safe At This Time Assistive Devices: Cane and Glasses Review of Systems Review of Systems: At least ten systems reviewed and negative except as noted in the HPI. Physical Exam Physical Exam: General Appearance: WD/WN, vitals as above, NAD, sitting up in bed, pleasant, obese Head: normocephalic, atraumatic Eyes: normal inspection, PERRL, conjunctivae normal, anicteric sclerae ENT: external ear and nose normal, oropharynx normal Neck: normal visual inspection, trachea midline, no thyromegaly Respiratory: normal respiratory effort, lungs clear to auscultation, no wheeze, rales, rhonchi. No accessory muscle use Cardiovascular: regular rate, rhythm, no murmur appreciated, normal peripheral pulses, no BLE edema. Vessels: no JVD Chest: normal inspection of chest Abdomen/GI: normal bowel sounds, soft, nontender, no hepatosplenomegaly Extremities/Musculoskeletal: R dorsum of foot with erythema and edema, warm to touch. Not extending to ankle and no streaking. No wounds visualized. TTP. No cyanosis or clubbing, extremities motor strength 5/5 Neurologic: PERRL, EOMI, accommodation nl, no face palsy, no dysarthria, CN's II-XI intact bilaterally and moves all extremities Psychiatric: A+Ox3, anxious Skin: no rashes, normal color, warm/dry Results & Data Results & Data ([facility]) Vital Signs (Past 12 Hours) Vital Signs Temp Pulse Pulse Resp BP BP Pulse Ox 11/17/20 11:01 70 25 H 147/84 H 96 11/17/20 10:31 60 19 153/77 H 90 11/17/20 10:01 58 L 12 140/92 93 11/17/20 09:53 63 16 171/90 H 97 11/17/20 09:51 64 20 171/90 H 99 11/17/20 09:40 68 16 129/89 96 11/17/20 09:00 64 14 131/84 99 11/17/20 08:43 65 20 131/84 98 11/17/20 08:15 36.9 C 61 18 159/84 H 98 Laboratory Results Short CBC 11/17/20 11/17/20 Range/Units 09:41 09:41 WBC 9.84 (4.8-10.8) K/uL Hgb 12.5 (12.0-16.0) g/dL Hct 39.6 (37-47) % Plt Count 265 (130-400) K/uL INR 3.0 H (0.9-1.1) BMP 11/17/20 09:41 Sodium 140 Potassium 3.4 L Chloride 107 Carbon Dioxide 28 BUN 19 H Creatinine 0.72 Glucose 98 Calcium 9.6 Liver Function 11/17/20 Range/Units 09:41 Total Bilirubin 0.5 (0.2-1) mg/dl AST 17 (15-37) U/L ALT 8 L (12-78) U/L Alkaline Phosphatase 101 (45-117) U/L Albumin 3.3 L (3.4-5.0) gm/dl Diagnostic Findings Foot X-Ray 11/17/20 09:22 XR foot RT min 3V routine HISTORY: 70 years-old Female Pain swelling acute right foot pain with soft tissue swelling. No reported trauma COMPARISON: None TECHNIQUE: 3 views of the right foot FINDINGS: Demineralized appearance of the bones. A millimeter corticated ossification medial to the first MTP joint may reflect chronic fracture fragment. 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 Moderate sized plantar enthesophyte of the calcaneus. Mild dorsal forefoot soft tissue swelling. No acute fracture or dislocation. IMPRESSION: Soft tissue swelling without acute fracture or dislocation. ACT 112: Negative or not required by law. The above report was generated using voice recognition software. It may contain grammatical, syntax or spelling errors. Electronically signed by: Keshawn Foster M.D. 11/17/2020 10:19 AM Code Status & VTE Plan VTE Prophylaxis Plan VTE Prophylaxis will be ordered: Yes Supervising Physician Co-Signing Physician Notes Patient is a 70-year-old female with history of diastolic heart failure, paroxysmal SVT, Edenilson-Danlos syndrome, obstructive sleep apnea, morbid obesity and other medical problems presents with history of right foot pain associated with swelling, erythema since 4 weeks duration. Also states having nausea but denies any vomiting. She denies any trauma, insect bite, wound with any discharge. Also denies any fever, chest pain, shortness of breath. States having significant pain associated with ambulatory dysfunction secondary to pain. Please review HPI for complete details of presentation. Labs suggestive of INR 3.0, potassium 3.4. Foot x-ray suggestive of soft tissue swelling without acute fracture or dislocation. On exam patient is morbidly obese, no apparent distress, normocephalic atraumatic, lungs are clear to auscultation, S1-S2,+ murmur, left lower extremity edema, abdomen soft, nontender, normal bowel sounds, alert, awake, oriented, grossly no focal deficits, right foot erythematous, tender, raised temperature. No open wounds noted. Patient is admitted for management of right foot cellulitis. R/O abscess, osteomyelitis. Blood cultures obtained. Empirically started on Vanco, Zosyn. Will consult orthopedics. Hold Coumadin today for possible procedure. Monitor INR. Will replace potassium. I personally reviewed the record. Patient is interviewed and examined at bedside. Patient's care is coordinated with Sara Kerns PA-C. Please refer to the documentation above for details of patient's presentation and for discussion of other issues. (1) Thoracic aortic aneurysm Presence of rupture: without rupture Qualified Code(s): I71.2 - Thoracic aortic aneurysm, without rupture
[2020-11-17] MEDS ORDERED: POTASSIUM CHLORIDE CRTAB 20 MEQ TABCR PO STA (11:55)
[2020-11-17] MEDS ORDERED: POLYETHYLENE (MIRALAX) 17 GM PACK PO PRN (13:58)
[2020-11-17] MEDS ORDERED: ALBUTEROL HFA 8 GM INHALER INH PRN (13:58)
[2020-11-17] MEDS ORDERED: ONDANSETRON INJ 2 MG/ML 2 ML VIAL IV PRN (13:58)
[2020-11-17] MEDS ORDERED: DOCUSATE SODIUM/SENNA 50/8.6MG TAB PO PRN (13:58)
[2020-11-17] MEDS ORDERED: traZODone HCL 50 MG TAB PO PRN (13:58)
[2020-11-17] MEDS ORDERED: VANCOMYCIN CONSULT ACTIVE PRN (14:30)
[2020-11-17] MEDS ORDERED: CEFTRIAXONE PHARMACY CONSULT IN PROGRESS PRN (14:31)
[2020-11-17] MEDS ORDERED: VANCOMYCIN HCL 2,000 MG in SODIUM CHLORIDE 0.9% 500 ML IV ONE (15:00)
[2020-11-17] MEDS: oxyCODONE/ACETAMINOPHEN 5mg/325mg TAB PO PRN (15:13)
[2020-11-17] MEDS: hydrOXYzine HCl 25 MG TAB PO PRN (15:13)
[2020-11-17] MEDS ORDERED: DOCUSATE SODIUM 100 MG CAP PO PRN (15:16)
[2020-11-17] MEDS ORDERED: IPRATROPIUM BROMIDE NASAL SPRAY 0.06% 15ML NAE PRN (15:17)
--- NOTE | 2020-11-17 15:19 | Emergency Department Note ---
History of Present Illness General Chief complaint: Foot Injury/Pain Stated complaint: R FOOT PAIN Time Seen by Provider: 11/17/20 08:45 Source: patient and RN notes reviewed Mode of arrival: EMS Limitations: no limitations History of Present Illness Provider complaint: Right foot pain Maximum Pain Intensity: 10 This patient is a 70-year-old female who presents emergency department with com plaints of right foot pain for the last several weeks. She states she has been evaluated by her primary care and x-rays have been performed. The studies were negative for acute fracture per the patient's account. Patient denies any fever. Patient states she does have neuropathy and has fallen several times recently secondary to no feeling in her feet. She states she has been prescribed Ultram by her PCP but has not experienced any pain relief. She is unable to take NSAIDs secondary to history of gastric bypass. She denies any fevers, open wounds, drainage or swelling in the calf. Home Medications Medication Instructions Recorded Confirmed Type Avoca-3 Fish Oil 1 tab PO HS 04/15/18 11/17/20 History albuterol sulfate [Ventolin HFA] 2 puff INHALATION QID PRN 04/15/18 11/17/20 History atorvastatin 20 mg PO HS 04/15/18 11/17/20 History biotin 1,000 mcg PO HS 04/15/18 11/17/20 History calcium citrate 650 mg PO BID 04/15/18 11/17/20 History carbidopa-levodopa [Sinemet] 1 tab PO QID 04/15/18 11/17/20 History diclofenac sodium [Voltaren] 2 g TOPICAL QID 04/15/18 11/17/20 History ergocalciferol (vitamin D2) 50,000 unit PO WK 04/15/18 11/17/20 History fluticasone propionate [Flonase 2 spray INTRANASAL BID 04/15/18 11/17/20 History Allergy Relief] ipratropium bromide 2 spray INTRANASAL QID PRN 04/15/18 11/17/20 History magnesium 500 mg PO HS 04/15/18 11/17/20 History metaxalone [Metaxall] 800 mg PO QID 04/15/18 11/17/20 History omeprazole 20 mg PO QAM 04/15/18 11/17/20 History ondansetron 4 mg PO QID PRN 04/15/18 11/17/20 History sennosides-docusate sodium 1 tab PO BID PRN 04/15/18 11/17/20 History [Senna-S] tramadol 50 mg PO Q8H PRN 04/15/18 11/17/20 History ropinirole 0.5 mg PO DIRECTED 06/06/19 11/17/20 History cyanocobalamin (vitamin B-12) 1,000 mcg IM MONTHLY 08/09/19 11/17/20 History metoprolol tartrate 25 mg PO DAILY 08/09/19 11/17/20 History PreserVision AREDS-2 1 tab PO BID 01/18/20 11/17/20 History thiamine HCl (vitamin B1) 100 mg PO BID 01/18/20 11/17/20 History Linzess 290 mcg PO DAILY@1500 11/17/20 11/17/20 History docusate sodium 50 mg PO BID PRN 11/17/20 11/17/20 History fluticasone propion-salmeterol 1 inh INHALATION BID 11/17/20 11/17/20 History furosemide [Lasix] 40 mg PO DAILY PRN 11/17/20 11/17/20 History hydroxyzine HCl 25 mg PO Q6H PRN 11/17/20 11/17/20 History ipratropium-albuterol 3 ml INHALATION QID 11/17/20 11/17/20 History levothyroxine 50 mcg PO DAILY 11/17/20 11/17/20 History metoprolol tartrate 12.5 mg PO HS 11/17/20 11/17/20 History montelukast 10 mg PO HS 11/17/20 11/17/20 History mupirocin 1 applic TOPICAL TID 11/17/20 11/17/20 History potassium chloride 20 meq PO DAILY 11/17/20 11/17/20 History trazodone 25 mg PO HS PRN 11/17/20 11/17/20 History warfarin 2.5 mg PO SUMOWETHFR@1600 11/17/20 11/17/20 History warfarin 5 mg PO TUSA@1600 11/17/20 11/17/20 History cephalexin [Keflex] 750 mg PO Q8H 4 Days #12 cap 11/20/20 Rx oxycodone 5 mg PO Q8H PRN #10 cap 11/20/20 Rx L.acidop,patricio,lac,rha-B.lac,nereyda 2 cap PO DAILY #14 cap 11/22/20 Rx [Advanced Probiotic] lidocaine HCl 5 ml EXT BID PRN #30 ml 11/22/20 Rx Allergies Allergy/AdvReac Type Severity Reaction Status Date / Time buspirone Allergy Severe NEURO Verified 11/17/20 08:37 COMPLICATIONS lisinopril Allergy Intermediate cough Verified 11/17/20 08:37 adhesive Allergy Mild skin tears Verified 11/17/20 08:37 ammonia Allergy Unknown SWELLING Verified 11/17/20 08:37 duloxetine Allergy Unknown RASH Verified 11/17/20 08:37 ITCHING NSAIDS (Non-Steroidal Allergy Unknown not Verified 11/17/20 08:37 Anti-Inflamma supposed to use-S/P GASTRIC BYPASS venlafaxine Allergy Unknown AFFECTS Verified 11/17/20 08:37 LEGS diphenhydramine AdvReac Unknown RESTLESS Verified 11/17/20 08:37 LEGS Dust Allergy Unknown ROACHES,DUST Uncoded 11/17/20 08:37 MITES-CLOGGED UP SINUSES-CAN'T BREATHE Past Med/Surg History Medical History ADHD Asthma uses PRN INH 3-4 x wk Bulging of intervertebral disc Claustrophobia Difficult intravenous access Dysphagia Edenilson-Danlos syndrome ISAC (generalized anxiety disorder) Gastroparesis GERD (gastroesophageal reflux disease) Hearing deficit History of colon polyps History of colon polyps History of DVT (deep vein thrombosis) chronic anticoagulation History of intestinal obstruction Hyperlipidemia Hypothyroidism Osteoarthritis Osteoporosis Peripheral neuropathy Protein C deficiency Pulmonary embolism 07/2018 - treated w/ lovenox - unk etiology Renal cyst Restless leg syndrome Sleep apnea unable to tolerate CPAP Tachycardia Thoracic aortic aneurysm follows w/ Dr. Arredondo - evaluated within last 6 mo Thyroid nodule Surgical History History of abdominoplasty + hernia repair History of arthroscopy of left knee History of bilateral breast reduction surgery History of cholecystectomy History of colonoscopy History of esophagogastroduodenoscopy (EGD) History of gastric bypass History of intestinal surgery History of laparotomy History of left knee replacement History of right knee joint replacement History of tonsillectomy Hx of melanoma excision shoulder S/P hysterectomy Self extubation attempted post gastric bypass Status post biopsy of thyroid gland benign Family History Uncle Stomach cancer Other No family history of adverse response to anesthesia No pertinent family history in first degree relatives Social History Smoking Status: Never smoker Second Hand Exposure: No; Hx Alcohol Use: No Hx Substance Use: No Preferred Language: Kyrgyz Communication Ability: Effective Visual Impairment: Limited Hearing Ability: Normal Shingle Inspector Required: No Beliefs That Will Affect Care: None Current Living Situation: Alone Current Living Situation Comment: has friends to help when needed Feels Safe at Home: Yes Assistive Devices: Brace/Splint/Immobilizer, Glasses and Walker Review of Systems See HPI for pertinent positives & negatives. and A total of 10 systems reviewed and were otherwise negative Physical Exam Vital Signs Vital Signs - 24 hr 11/17/20 08:15 11/17/20 08:43 11/17/20 09:00 Temperature 36.9 C Temperature Source Oral Pulse Rate 61 65 64 Pulse Rate [Apical] Pulse Rate from SpO2 Sensor 66 Pulse Rhythm [Apical] Respiratory Rate 18 20 14 Respiratory Effort / Characteristics Non-Labored Spontaneous Respiratory Depth Normal Respiratory Pattern Regular Blood Pressure 159/84 H 131/84 131/84 Blood Pressure [Left Arm] Blood Pressure Mean 109 99 99 Blood Pressure Mean [Left Arm] Blood Pressure Position Sitting Pulse Oximetry 98 98 99 Oxygen Delivery Method Room Air Sepsis Recent Fever Within 48 Hours No Sepsis New/Unexplained Change in Mental Status N/A Sepsis Action Taken by Nursing No Action Required 11/17/20 09:40 11/17/20 09:51 11/17/20 09:53 Temperature Temperature Source Pulse Rate 68 63 Pulse Rate [Apical] 64 Pulse Rate from SpO2 Sensor 68 64 Pulse Rhythm [Apical] Regular Respiratory Rate 16 20 16 Respiratory Effort / Characteristics Non-Labored Spontaneous Respiratory Depth Normal Respiratory Pattern Regular Blood Pressure 129/89 171/90 H Blood Pressure [Left Arm] 171/90 H Blood Pressure Mean 102 117 Blood Pressure Mean [Left Arm] 117 Blood Pressure Position Pulse Oximetry 96 99 97 Oxygen Delivery Method Room Air Sepsis Recent Fever Within 48 Hours Sepsis New/Unexplained Change in Mental Status Sepsis Action Taken by Nursing 11/17/20 10:01 11/17/20 10:31 11/17/20 11:01 Temperature Temperature Source Pulse Rate 58 L 60 70 Pulse Rate [Apical] Pulse Rate from SpO2 Sensor 59 L 61 69 Pulse Rhythm [Apical] Respiratory Rate 12 19 25 H Respiratory Effort / Characteristics Respiratory Depth Respiratory Pattern Blood Pressure 140/92 153/77 H 147/84 H Blood Pressure [Left Arm] Blood Pressure Mean 108 102 105 Blood Pressure Mean [Left Arm] Blood Pressure Position Pulse Oximetry 93 90 96 Oxygen Delivery Method Sepsis Recent Fever Within 48 Hours Sepsis New/Unexplained Change in Mental Status Sepsis Action Taken by Nursing 11/17/20 11:31 Temperature Temperature Source Pulse Rate 67 Pulse Rate [Apical] Pulse Rate from SpO2 Sensor 66 Pulse Rhythm [Apical] Respiratory Rate 19 Respiratory Effort / Characteristics Respiratory Depth Respiratory Pattern Blood Pressure 143/84 H Blood Pressure [Left Arm] Blood Pressure Mean 103 Blood Pressure Mean [Left Arm] Blood Pressure Position Pulse Oximetry 92 Oxygen Delivery Method Sepsis Recent Fever Within 48 Hours Sepsis New/Unexplained Change in Mental Status Sepsis Action Taken by Nursing Vital signs reviewed. General: Well-appearing 70 yo female, in no significant distress. HEENT: No scleral icterus, PERRLA, neck supple. Atraumatic. Cardiovascular: Regular rate and rhythm, no extra sounds. Pulmonary: Clear to auscultation bilaterally, normal work of breathing. Abdomen: Soft, nontender, nondistended, positive bowel sounds. Musculoskeletal: Atraumatic, right foot with 1+ pitting edema. Skin changes to the right foot as below. There is pain with range of motion of the right foot and diffuse tenderness but no point tenderness. Minimal ecchymosis noted at the medial plantar surface of the arch of the foot Neurologic: Patient awake alert and oriented x 3, full strength in all 4 extremities. Cranial nerves 2 through 12 grossly intact. Skin: Warm, dry, There is a line of demarcation with distal erythema at the tarsal/metatarsal junction. Foot is warm to touch. Course Administered Medications Discontinued Medications Acetaminophen (Acetaminophen 325 Mg Tab) 650 mg PO Q4H PRN PRN Reason: Pain or Fever Stop: 12/17/20 13:57 Last Admin: 11/18/20 11:08 Dose: 650 mg Documented by: [id number] Admin: 11/18/20 02:27 Dose: 650 mg Documented by: [id number] Admin: 11/17/20 19:58 Dose: 650 mg Documented by: [id number] Albuterol (Albut/Ipratrop 3mg/0.5mg Neb 3 Ml Vial) 3 ml INH QIDR ASHUTOSH Stop: 12/17/20 14:59 Last Admin: 11/18/20 07:24 Dose: Not Given Documented by: [id number] Admin: 11/17/20 19:41 Dose: 3 ml Documented by: [id number] Admin: 11/17/20 15:24 Dose: 3 ml Documented by: [id number] Albuterol (Albut/Ipratrop 3mg/0.5mg Neb 3 Ml Vial) 3 ml INH QIDR PRN PRN Reason: Shortness Of Breath Or Wheezing Stop: 12/17/20 14:59 Last Admin: 11/20/20 09:21 Dose: 3 ml Documented by: [id number] Atorvastatin Calcium (Atorvastatin 20 Mg Tab) 20 mg PO HS ASHUTOSH Stop: 12/17/20 20:59 Last Admin: 11/19/20 19:50 Dose: 20 mg Documented by: [id number] Admin: 11/18/20 20:36 Dose: 20 mg Documented by: [id number] Admin: 11/17/20 22:11 Dose: 20 mg Documented by: [id number] Calcium Citrate (Calcium Citrate 950 Mg Tab) 950 mg PO BID ASHUTOSH Stop: 12/17/20 20:59 Last Admin: 11/22/20 08:25 Dose: 950 mg Documented by: [id number] Admin: 11/21/20 20:19 Dose: 950 mg Documented by: [id number] Admin: 11/21/20 07:38 Dose: 950 mg Documented by: [id number] Admin: 11/20/20 22:18 Dose: 950 mg Documented by: [id number] Admin: 11/20/20 08:20 Dose: 950 mg Documented by: [id number] Admin: 11/19/20 19:51 Dose: 950 mg Documented by: [id number] Admin: 11/19/20 07:46 Dose: 950 mg Documented by: [id number] Admin: 11/18/20 20:34 Dose: 950 mg Documented by: [id number] Admin: 11/18/20 07:57 Dose: 950 mg Documented by: [id number] Admin: 11/17/20 22:11 Dose: 950 mg Documented by: [id number] Carbidopa/Levodopa (Carbidopa/Levodopa 25/100mg Tab) 1 tab PO QID ASHUTOSH Stop: 12/17/20 16:59 Last Admin: 11/22/20 08:25 Dose: 1 tab Documented by: [id number] Admin: 11/21/20 20:19 Dose: 1 tab Documented by: [id number] Admin: 11/21/20 17:12 Dose: 1 tab Documented by: [id number] Admin: 11/21/20 12:13 Dose: 1 tab Documented by: [id number] Admin: 11/21/20 07:38 Dose: 1 tab Documented by: [id number] Admin: 11/20/20 22:20 Dose: 1 tab Documented by: [id number] Admin: 11/20/20 18:06 Dose: 1 tab Documented by: [id number] Admin: 11/20/20 12:59 Dose: 1 tab Documented by: [id number] Admin: 11/20/20 08:22 Dose: 1 tab Documented by: [id number] Admin: 11/19/20 19:48 Dose: 1 tab Documented by: [id number] Admin: 11/19/20 17:26 Dose: 1 tab Documented by: [id number] Admin: 11/19/20 12:15 Dose: 1 tab Documented by: [id number] Admin: 11/19/20 07:48 Dose: 1 tab Documented by: [id number] Admin: 11/18/20 20:32 Dose: 1 tab Documented by: [id number] Admin: 11/18/20 16:09 Dose: 1 tab Documented by: [id number] Admin: 11/18/20 12:32 Dose: 1 tab Documented by: [id number] Admin: 11/18/20 07:56 Dose: 1 tab Documented by: [id number] Admin: 11/17/20 22:09 Dose: 1 tab Documented by: [id number] Admin: 11/17/20 16:04 Dose: 1 tab Documented by: [id number] Diclofenac Sodium (Diclofenac Sod 1% Gel 100 Gm Tube) 2 gm EXT QID ASHUTOSH Stop: 12/17/20 16:59 Last Admin: 11/22/20 08:26 Dose: 2 gm Documented by: [id number] Admin: 11/21/20 20:19 Dose: 2 gm Documented by: [id number] Admin: 11/21/20 17:13 Dose: Not Given Documented by: [id number] Admin: 11/21/20 12:16 Dose: Not Given Documented by: [id number] Admin: 11/21/20 07:39 Dose: 2 gm Documented by: [id number] Admin: 11/20/20 22:16 Dose: 2 gm Documented by: [id number] Admin: 11/20/20 18:08 Dose: 2 gm Documented by: [id number] Admin: 11/20/20 13:00 Dose: 2 gm Documented by: [id number] Admin: 11/20/20 08:24 Dose: 2 gm Documented by: [id number] Admin: 11/19/20 19:50 Dose: 2 gm Documented by: [id number] Admin: 11/19/20 17:27 Dose: 2 gm Documented by: [id number] Admin: 11/19/20 12:16 Dose: 2 gm Documented by: [id number] Admin: 11/19/20 07:51 Dose: 2 gm Documented by: [id number] Admin: 11/18/20 20:35 Dose: 2 gm Documented by: [id number] Admin: 11/18/20 16:09 Dose: 2 gm Documented by: [id number] Admin: 11/18/20 12:32 Dose: 2 gm Documented by: [id number] Admin: 11/18/20 07:58 Dose: 2 gm Documented by: [id number] Admin: 11/17/20 22:12 Dose: 2 gm Documented by: [id number] Admin: 11/17/20 16:04 Dose: 2 gm Documented by: [id number] Fish Oil (Avoca-3 (Purified Fish Oil) 1 Gm Cap) 1 gm PO HS ASHUTOSH Stop: 12/17/20 20:59 Last Admin: 11/21/20 20:19 Dose: 1 gm Documented by: [id number] Admin: 11/20/20 22:17 Dose: 1 gm Documented by: [id number] Admin: 11/19/20 19:51 Dose: 1 gm Documented by: [id number] Admin: 11/18/20 20:36 Dose: 1 gm Documented by: [id number] Admin: 11/17/20 22:12 Dose: 1 gm Documented by: [id number] Fluticasone Propionate (Fluticasone Propionate Na Spr 16 Gm Btl) 2 sprays ELYSE BID ASHUTOSH Stop: 12/17/20 20:59 Last Admin: 11/22/20 08:26 Dose: 2 sprays Documented by: [id number] Admin: 11/21/20 20:19 Dose: 2 sprays Documented by: [id number] Admin: 11/21/20 07:39 Dose: 2 sprays Documented by: [id number] Admin: 11/20/20 22:21 Dose: 2 sprays Documented by: [id number] Admin: 11/20/20 08:17 Dose: 2 sprays Documented by: [id number] Admin: 11/19/20 19:51 Dose: 2 sprays Documented by: [id number] Admin: 11/19/20 07:50 Dose: 2 sprays Documented by: [id number] Admin: 11/18/20 20:34 Dose: 2 sprays Documented by: [id number] Admin: 11/18/20 07:59 Dose: 2 sprays Documented by: [id number] Admin: 11/17/20 22:12 Dose: 2 sprays Documented by: [id number] Fluticasone/Vilanterol (Fluticasone/Vilanterol 100/25mcg 14 Puffs/Inhaler) 1 puffs INH DAILY ASHUTOSH Stop: 12/18/20 08:59 Last Admin: 11/22/20 08:26 Dose: 1 puffs Documented by: [id number] Admin: 11/21/20 07:39 Dose: 1 puffs Documented by: [id number] Admin: 11/20/20 08:17 Dose: 1 puffs Documented by: [id number] Admin: 11/19/20 07:50 Dose: 1 puffs Documented by: [id number] Admin: 11/18/20 07:59 Dose: 1 puffs Documented by: [id number] Heparin Sodium (Porcine) (Heparin Sod 5,000 Unit/0.5 Ml Vial) 5,000 units SQ NOW STA Stop: 11/20/20 16:31 Last Admin: 11/20/20 17:18 Dose: 5,000 units Documented by: [id number] Heparin Sodium (Porcine) (Heparin Sod 5,000 Unit/0.5 Ml Vial) 5,000 units SQ Q8 ASHUTOSH Stop: 12/20/20 21:59 Last Admin: 11/22/20 05:41 Dose: 5,000 units Documented by: [id number] Admin: 11/21/20 21:00 Dose: 5,000 units Documented by: [id number] Admin: 11/21/20 14:08 Dose: 5,000 units Documented by: [id number] Admin: 11/21/20 05:48 Dose: 5,000 units Documented by: [id number] Admin: 11/20/20 22:19 Dose: 5,000 units Documented by: [id number] Hydroxyzine HCl (Hydroxyzine Hcl 25 Mg Tab) 25 mg PO Q6H PRN PRN Reason: Anxiety Stop: 12/17/20 13:57 Last Admin: 11/19/20 04:23 Dose: 25 mg Documented by: [id number] Admin: 11/18/20 20:31 Dose: 25 mg Documented by: [id number] Admin: 11/17/20 15:13 Dose: 25 mg Documented by: [id number] Hydroxyzine HCl (Hydroxyzine Hcl 25 Mg Tab) 25 mg PO NOW STA Stop: 11/20/20 16:16 Last Admin: 11/20/20 16:35 Dose: 25 mg Documented by: [id number] Ceftriaxone Sodium (Rocephin) 2,000 mg in 70 mls @ 140 mls/hr IV NOW STA Stop: 11/17/20 11:24 Last Infusion: 11/17/20 13:07 Dose: 0 mls/hr Documented by: [id number] Admin: 11/17/20 11:23 Dose: 140 mls/hr Documented by: [id number] Vancomycin HCl 2,000 mg/ (Sodium Chloride) 540 mls @ 200 mls/hr IV 1500 ONE Stop: 11/17/20 17:41 Last Infusion: 11/17/20 19:36 Dose: 0 mls/hr Documented by: [id number] Admin: 11/17/20 15:13 Dose: 200 mls/hr Documented by: [id number] Ceftriaxone Sodium 2,000 mg/ (Dextrose) 70 mls @ 70 mls/hr IV Q24H ASHUTOSH Stop: 11/24/20 11:59 Last Infusion: 11/21/20 14:28 Dose: 0 mls/hr Documented by: [id number] Admin: 11/21/20 12:17 Dose: 70 mls/hr Documented by: [id number] Infusion: 11/20/20 12:56 Dose: 0 mls/hr Documented by: [id number] Admin: 11/20/20 11:16 Dose: 70 mls/hr Documented by: [id number] Infusion: 11/19/20 12:13 Dose: 0 mls/hr Documented by: [id number] Admin: 11/19/20 11:35 Dose: 140 mls/hr Documented by: [id number] Infusion: 11/18/20 13:05 Dose: 0 mls/hr Documented by: [id number] Admin: 11/18/20 12:32 Dose: 140 mls/hr Documented by: [id number] Vancomycin HCl 1,000 mg/ (Sodium Chloride) 270 mls @ 200 mls/hr IV Q8H ASHUTOSH Stop: 11/25/20 00:00 Last Infusion: 11/18/20 16:19 Dose: 0 mls/hr Documented by: [id number] Infusion: 11/18/20 16:18 Dose: 0 mls/hr Documented by: [id number] Admin: 11/18/20 16:13 Dose: 200 mls/hr Documented by: [id number] Infusion: 11/18/20 09:35 Dose: 0 mls/hr Documented by: [id number] Admin: 11/18/20 08:05 Dose: 200 mls/hr Documented by: [id number] Infusion: 11/18/20 01:04 Dose: 0 mls/hr Documented by: [id number] Admin: 11/17/20 23:32 Dose: 200 mls/hr Documented by: [id number] Vancomycin HCl 1,000 mg/ (Sodium Chloride) 270 mls @ 200 mls/hr IV Q12H ASHUTOSH Stop: 11/26/20 00:00 Last Admin: 11/20/20 16:05 Dose: Not Given Documented by: [id number] Infusion: 11/20/20 00:28 Dose: 0 mls/hr Documented by: [id number] Admin: 11/19/20 22:58 Dose: 200 mls/hr Documented by: [id number] Infusion: 11/19/20 14:53 Dose: 0 mls/hr Documented by: [id number] Admin: 11/19/20 12:54 Dose: 200 mls/hr Documented by: [id number] Infusion: 11/19/20 02:21 Dose: 0 mls/hr Documented by: [id number] Admin: 11/18/20 23:40 Dose: 200 mls/hr Documented by: [id number] Daptomycin 275 mg/ Syringe 5.5 mls @ 2.75 mls/min IV Q24H ASHUTOSH; Protocol Stop: 11/27/20 19:59 Last Admin: 11/21/20 19:36 Dose: 2.75 mls/min Documented by: [id number] Admin: 11/20/20 20:05 Dose: 2.75 mls/min Documented by: [id number] Famotidine 20 mg/ Syringe 5 mls @ 2.5 mls/min IV ONE ONE Stop: 11/20/20 16:31 Last Admin: 11/20/20 16:36 Dose: 2.5 mls/min Documented by: [id number] Lactobacillus Acidoph/Casei/Rhamnos (Advanced Probiotic 1250 Mg Capsule) 2 cap PO DAILY [facility] Stop: 12/18/20 17:14 Last Admin: 11/22/20 08:25 Dose: 2 cap Documented by: [id number] Admin: 11/21/20 07:37 Dose: 2 cap Documented by: [id number] Admin: 11/20/20 08:21 Dose: 2 cap Documented by: [id number] Admin: 11/19/20 07:47 Dose: 2 cap Documented by: [id number] Admin: 11/18/20 17:52 Dose: 2 cap Documented by: [id number] Levothyroxine Sodium (Levothyroxine Sodium 50 Mcg Tablet) 50 mcg PO DAILYBB [facility] Stop: 12/18/20 06:29 Last Admin: 11/22/20 05:41 Dose: 50 mcg Documented by: [id number] Admin: 11/21/20 05:48 Dose: 50 mcg Documented by: [id number] Admin: 11/20/20 05:54 Dose: 50 mcg Documented by: [id number] Admin: 11/19/20 06:24 Dose: 50 mcg Documented by: [id number] Admin: 11/18/20 06:32 Dose: 50 mcg Documented by: [id number] Lidocaine (Lidocaine 5% 1 Patch) 1 patch TD DAILY@1830 [facility] Stop: 12/18/20 18:29 Last Admin: 11/21/20 17:14 Dose: 1 patch Documented by: [id number] Admin: 11/20/20 18:07 Dose: 1 patch Documented by: [id number] Admin: 11/19/20 18:25 Dose: 1 patch Documented by: [id number] Admin: 11/18/20 20:31 Dose: 1 patch Documented by: [id number] Linaclotide (Linaclotide 145 Mcg Capsule) 290 mcg PO DAILY@1500 [facility] Stop: 12/17/20 14:59 Last Admin: 11/21/20 15:42 Dose: 290 mcg Documented by: [id number] Admin: 11/20/20 15:15 Dose: 290 mcg Documented by: [id number] Admin: 11/19/20 15:46 Dose: 290 mcg Documented by: [id number] Admin: 11/18/20 16:08 Dose: 290 mcg Documented by: [id number] Admin: 11/17/20 16:04 Dose: 290 mcg Documented by: [id number] Magnesium Oxide (Magnesium Oxide 400 Mg Tab) 400 mg PO HS ASHUTOSH Stop: 12/17/20 20:59 Last Admin: 11/21/20 20:19 Dose: 400 mg Documented by: [id number] Admin: 11/21/20 00:01 Dose: 400 mg Documented by: [id number] Admin: 11/19/20 19:50 Dose: 400 mg Documented by: [id number] Admin: 11/18/20 20:36 Dose: 400 mg Documented by: [id number] Admin: 11/17/20 22:12 Dose: 400 mg Documented by: [id number] Metaxalone (Metaxalone 800 Mg Tablet) 800 mg PO QID ASHUTOSH Stop: 12/17/20 16:59 Last Admin: 11/22/20 08:25 Dose: 800 mg Documented by: [id number] Admin: 11/21/20 20:19 Dose: 800 mg Documented by: [id number] Admin: 11/21/20 17:12 Dose: 800 mg Documented by: [id number] Admin: 11/21/20 12:13 Dose: 800 mg Documented by: [id number] Admin: 11/21/20 07:37 Dose: 800 mg Documented by: [id number] Admin: 11/20/20 22:20 Dose: 800 mg Documented by: [id number] Admin: 11/20/20 18:06 Dose: 800 mg Documented by: [id number] Admin: 11/20/20 12:59 Dose: 800 mg Documented by: [id number] Admin: 11/20/20 08:20 Dose: 800 mg Documented by: [id number] Admin: 11/19/20 19:51 Dose: 800 mg Documented by: [id number] Admin: 11/19/20 17:26 Dose: 800 mg Documented by: [id number] Admin: 11/19/20 12:16 Dose: 800 mg Documented by: [id number] Admin: 11/19/20 07:48 Dose: 800 mg Documented by: [id number] Admin: 11/18/20 20:33 Dose: 800 mg Documented by: [id number] Admin: 11/18/20 16:08 Dose: 800 mg Documented by: [id number] Admin: 11/18/20 12:32 Dose: 800 mg Documented by: [id number] Admin: 11/18/20 07:57 Dose: 800 mg Documented by: [id number] Admin: 11/17/20 22:13 Dose: 800 mg Documented by: [id number] Admin: 11/17/20 16:05 Dose: 800 mg Documented by: [id number] Metoprolol Tartrate (Metoprolol Tartrate 25 Mg Tab) 12.5 mg PO HS [facility] Stop: 12/17/20 20:59 Last Admin: 11/21/20 20:19 Dose: 12.5 mg Documented by: [id number] Admin: 11/20/20 22:17 Dose: 12.5 mg Documented by: [id number] Admin: 11/19/20 19:48 Dose: 12.5 mg Documented by: [id number] Admin: 11/18/20 20:35 Dose: 12.5 mg Documented by: [id number] Admin: 11/17/20 22:13 Dose: 12.5 mg Documented by: [id number] Metoprolol Tartrate (Metoprolol Tartrate 25 Mg Tab) 25 mg PO DAILY ASHUTOSH Stop: 12/18/20 08:59 Last Admin: 11/22/20 08:25 Dose: 25 mg Documented by: [id number] Admin: 11/21/20 07:38 Dose: 25 mg Documented by: [id number] Admin: 11/20/20 08:28 Dose: 25 mg Documented by: [id number] Admin: 11/19/20 07:49 Dose: 25 mg Documented by: [id number] Admin: 11/18/20 07:57 Dose: 25 mg Documented by: [id number] Miscellaneous (Remove Lidoderm Patch) 1 ea N/A DAILY@0630 [facility] Stop: 12/19/20 06:29 Last Admin: 11/22/20 05:41 Dose: 1 ea Documented by: [id number] Admin: 11/21/20 05:48 Dose: 1 ea Documented by: [id number] Admin: 11/20/20 05:59 Dose: 1 ea Documented by: [id number] Admin: 11/19/20 05:15 Dose: 1 ea Documented by: [id number] Montelukast Sodium (Montelukast Sodium 10 Mg Tablet) 10 mg PO [facility] Stop: 12/17/20 20:59 Last Admin: 11/21/20 20:18 Dose: 10 mg Documented by: [id number] Admin: 11/20/20 22:20 Dose: 10 mg Documented by: [id number] Admin: 11/19/20 19:50 Dose: 10 mg Documented by: [id number] Admin: 11/18/20 20:34 Dose: 10 mg Documented by: [id number] Admin: 11/17/20 22:10 Dose: 10 mg Documented by: [id number] Morphine Sulfate (Morphine Sulfate 4 Mg/Ml 1 Ml Carp\Vial) 4 mg IV NOW STA Stop: 11/17/20 09:24 Last Admin: 11/17/20 09:47 Dose: 4 mg Documented by: [id number] Multivitamins/Minerals (Cerovite Adv Formula Tab) 1 tab PO DAILY@1200 ASHUTOSH Stop: 12/18/20 11:59 Last Admin: 11/21/20 12:13 Dose: 1 tab Documented by: [id number] Admin: 11/20/20 15:14 Dose: 1 tab Documented by: [id number] Admin: 11/19/20 12:15 Dose: 1 tab Documented by: [id number] Admin: 11/18/20 11:09 Dose: 1 tab Documented by: [id number] Ondansetron HCl (Ondansetron Inj 2 Mg/Ml 2 Ml Vial) 4 mg IV NOW STA Stop: 11/17/20 09:24 Last Admin: 11/17/20 09:47 Dose: 4 mg Documented by: [id number] Oxycodone/Acetaminophen (Oxycodone/Acetaminophen 5mg/325mg Tab) 1 tab PO Q4H PRN PRN Reason: Pain Stop: 12/01/20 13:57 Last Admin: 11/22/20 05:40 Dose: 1 tab Documented by: [id number] Admin: 11/21/20 20:18 Dose: 1 tab Documented by: [id number] Admin: 11/21/20 14:15 Dose: 1 tab Documented by: [id number] Admin: 11/21/20 07:42 Dose: 1 tab Documented by: [id number] Admin: 11/20/20 20:20 Dose: 1 tab Documented by: [id number] Admin: 11/20/20 08:38 Dose: 1 tab Documented by: [id number] Admin: 11/20/20 02:55 Dose: 1 tab Documented by: [id number] Admin: 11/19/20 22:02 Dose: 1 tab Documented by: [id number] Admin: 11/19/20 17:31 Dose: 1 tab Documented by: [id number] Admin: 11/19/20 11:36 Dose: 1 tab Documented by: [id number] Admin: 11/19/20 05:14 Dose: 1 tab Documented by: [id number] Admin: 11/18/20 20:30 Dose: 1 tab Documented by: [id number] Admin: 11/18/20 12:40 Dose: 1 tab Documented by: [id number] Admin: 11/17/20 15:13 Dose: 1 tab Documented by: [id number] Pantoprazole Sodium (Pantoprazole 40 Mg Tab) 40 mg PO QAM ASHUTOSH Stop: 12/18/20 08:59 Last Admin: 11/22/20 08:25 Dose: 40 mg Documented by: [id number] Admin: 11/21/20 07:37 Dose: 40 mg Documented by: [id number] Admin: 11/20/20 08:22 Dose: 40 mg Documented by: [id number] Admin: 11/19/20 07:47 Dose: 40 mg Documented by: [id number] Admin: 11/18/20 07:57 Dose: 40 mg Documented by: [id number] Perflutren Lipid Microsphere (Perflutren Lipid Microsphere (Definity)) 2 ml IV ONCE ONE Stop: 11/21/20 13:48 Last Admin: 11/21/20 13:47 Dose: 2 ml Documented by: [id number] Polyethylene Glycol (Polyethylene (Miralax) 17 Gm Pack) 17 gm PO DAILY PRN PRN Reason: Constipation Stop: 12/17/20 13:57 Last Admin: 11/18/20 23:40 Dose: 17 gm Documented by: [id number] Polyethylene Glycol (Polyethylene (Miralax) 17 Gm Pack) 17 gm PO DAILY ASHUTOSH Stop: 12/22/20 08:59 Last Admin: 11/22/20 08:26 Dose: 17 gm Documented by: [id number] Polyethylene Glycol (Polyethylene (Miralax) 17 Gm Pack) 17 gm PO ONE ONE Stop: 11/21/20 11:31 Last Admin: 11/21/20 11:38 Dose: 17 gm Documented by: [id number] Potassium Chloride (Potassium Chloride Crtab 20 Meq Tabcr) 40 meq PO NOW STA Stop: 11/17/20 11:56 Last Admin: 11/17/20 13:05 Dose: 40 meq Documented by: [id number] Prednisone (Prednisone 20 Mg Tab) 20 mg PO NOW STA Stop: 11/20/20 16:27 Last Admin: 11/20/20 17:12 Dose: 20 mg Documented by: [id number] Ropinirole HCl (Ropinirole Hcl 1 Mg Tablet) 2 mg PO TID@0730,1200,1800 [facility] Stop: 12/17/20 19:14 Last Admin: 11/22/20 08:25 Dose: 2 mg Documented by: [id number] Admin: 11/21/20 17:12 Dose: 2 mg Documented by: [id number] Admin: 11/21/20 12:13 Dose: 2 mg Documented by: [id number] Admin: 11/21/20 07:36 Dose: 2 mg Documented by: [id number] Admin: 11/20/20 18:07 Dose: 2 mg Documented by: [id number] Admin: 11/20/20 13:00 Dose: 2 mg Documented by: [id number] Admin: 11/20/20 08:22 Dose: 2 mg Documented by: [id number] Admin: 11/19/20 17:25 Dose: 2 mg Documented by: [id number] Admin: 11/19/20 12:15 Dose: 2 mg Documented by: [id number] Admin: 11/19/20 07:49 Dose: 2 mg Documented by: [id number] Admin: 11/18/20 16:08 Dose: 2 mg Documented by: [id number] Admin: 11/18/20 11:09 Dose: 2 mg Documented by: [id number] Admin: 11/18/20 07:58 Dose: 2 mg Documented by: [id number] Admin: 11/17/20 19:29 Dose: 2 mg Documented by: [id number] Ropinirole HCl (Ropinirole Hcl 1 Mg Tablet) 4 mg PO HS [facility] Stop: 12/17/20 21:59 Last Admin: 11/21/20 20:19 Dose: 4 mg Documented by: [id number] Admin: 11/20/20 22:16 Dose: 4 mg Documented by: [id number] Admin: 11/19/20 19:47 Dose: 4 mg Documented by: [id number] Admin: 11/18/20 20:33 Dose: 4 mg Documented by: [id number] Admin: 11/17/20 22:09 Dose: 4 mg Documented by: [id number] Sennosides (Senna 8.6 Mg Tab) 8.6 mg PO QAM ASHUTOSH Stop: 12/18/20 09:29 Last Admin: 11/22/20 08:25 Dose: 8.6 mg Documented by: [id number] Admin: 11/21/20 07:37 Dose: 8.6 mg Documented by: [id number] Admin: 11/20/20 08:22 Dose: 8.6 mg Documented by: [id number] Admin: 11/19/20 07:46 Dose: 8.6 mg Documented by: [id number] Admin: 11/18/20 10:20 Dose: 8.6 mg Documented by: [id number] Thiamine HCl (Thiamine Hcl 100 Mg Tab) 100 mg PO BID [facility] Stop: 12/17/20 20:59 Last Admin: 11/22/20 08:25 Dose: 100 mg Documented by: [id number] Admin: 11/21/20 20:18 Dose: 100 mg Documented by: [id number] Admin: 11/21/20 07:39 Dose: 100 mg Documented by: [id number] Admin: 11/20/20 22:19 Dose: 100 mg Documented by: [id number] Admin: 11/20/20 08:21 Dose: 100 mg Documented by: [id number] Admin: 11/19/20 19:51 Dose: 100 mg Documented by: [id number] Admin: 11/19/20 07:47 Dose: 100 mg Documented by: [id number] Admin: 11/18/20 20:35 Dose: 100 mg Documented by: [id number] Admin: 11/18/20 07:57 Dose: 100 mg Documented by: [id number] Admin: 11/17/20 22:10 Dose: 100 mg Documented by: [id number] Tramadol HCl (Tramadol Hcl 50 Mg Tablet) 50 mg PO Q8H PRN PRN Reason: Pain Stop: 12/17/20 13:57 Last Admin: 11/20/20 01:10 Dose: 50 mg Documented by: [id number] Admin: 11/19/20 07:53 Dose: 50 mg Documented by: [id number] Admin: 11/18/20 08:05 Dose: 50 mg Documented by: [id number] Trazodone HCl (Trazodone Hcl 50 Mg Tab) 25 mg PO HS PRN PRN Reason: Insomnia Stop: 12/17/20 13:57 Last Admin: 11/21/20 02:40 Dose: 25 mg Documented by: [id number] Warfarin Sodium (Warfarin Sod 5 Mg Tab) 5 mg PO TUSA@1600 [facility] Stop: 12/19/20 15:59 Last Admin: 11/19/20 15:45 Dose: 5 mg Documented by: [id number] Warfarin Sodium (Warfarin Sod 2.5 Mg Tab) 2.5 mg PO SUMOWETHFR@1600 [facility] Stop: 12/17/20 15:59 Last Admin: 11/21/20 15:42 Dose: 2.5 mg Documented by: [id number] Admin: 11/20/20 17:13 Dose: 2.5 mg Documented by: [id number] Warfarin Sodium (Warfarin Sod 2.5 Mg Tab) 2.5 mg PO ONE ONE Stop: 11/18/20 17:22 Last Admin: 11/18/20 17:52 Dose: 2.5 mg Documented by: [id number] Medical Decision Making Differential Diagnosis Fracture, subluxation, dislocation, contusion, ligamentous injury, neurovasc ular, compartment syndrome, rhabdomyolysis, as well as other pathologies. Medical Records Attestation: I reviewed the patient's medical records. Home Medications Current Medication List: was personally reviewed by me Laboratory Data Attestation: I reviewed the patient's lab results. Result diagrams: 11/22/20 06:34 11/22/20 06:34 Lab Results 11/17/20 11/17/20 11/17/20 Range/Units 09:41 09:41 09:41 WBC 9.84 (4.8-10.8) K/uL RBC 4.03 L (4.2-5.4) M/uL Hgb 12.5 (12.0-16.0) g/dL Hct 39.6 (37-47) % MCV 98.3 (80-100) fL MCH 31.0 (25-34) pg MCHC 31.6 L (32-36) g/dL RDW Std Deviation 52.6 H (36.4-46.3) fL RDW Coeff of Neftaly 14.6 H (11.5-14.5) % Plt Count 265 (130-400) K/uL MPV 10.0 (7.4-10.4) fL Immature Gran % (Auto) 0.1 % Neut % (Auto) 75.0 % Lymph % (Auto) 11.0 % Avery % (Auto) 13.7 % Eos % (Auto) 0.1 % Baso % (Auto) 0.1 % Neut # (Auto) 7.38 H (1.4-6.5) K/uL Lymph # (Auto) 1.08 L (1.2-3.4) K/uL Avery # (Auto) 1.35 H (0.11-0.59) K/uL Eos # (Auto) 0.01 (0-0.5) K/uL Baso # (Auto) 0.01 (0-0.2) K/uL Immature Gran # (Auto) 0.01 (0.00-0.02) K/uL ESR 47 H (0-30) mm/hr PT 28.3 H (9.0-12.0) Seconds INR 3.0 H (0.9-1.1) Sodium (136-145) mmol/L Potassium (3.5-5.1) mmol/L Chloride (98-107) mmol/L Carbon Dioxide (21-32) mmol/L Anion Gap (3-11) BUN (7-18) mg/dl Creatinine (0.6-1.2) mg/dl Est Cr Clr Drug Dosing ml/min Est GFR ( Amer) ml/min Est GFR (Non-Af Amer) ml/min BUN/Creatinine Ratio (10-20) Glucose (70-99) mg/dl Uric Acid (2.6-7.2) mg/dl Calcium (8.5-10.1) mg/dl Magnesium (1.8-2.4) mg/dl Total Bilirubin (0.2-1) mg/dl AST (15-37) U/L ALT (12-78) U/L Alkaline Phosphatase (45-117) U/L C-Reactive Protein (0-0.29) mg/dl Total Protein (6.4-8.2) gm/dl Albumin (3.4-5.0) gm/dl Globulin (2.5-4.0) gm/dl Albumin/Globulin Ratio (0.9-2) 11/17/20 11/17/20 Range/Units 09:41 09:41 WBC (4.8-10.8) K/uL RBC (4.2-5.4) M/uL Hgb (12.0-16.0) g/dL Hct (37-47) % MCV (80-100) fL MCH (25-34) pg MCHC (32-36) g/dL RDW Std Deviation (36.4-46.3) fL RDW Coeff of Neftaly (11.5-14.5) % Plt Count (130-400) K/uL MPV (7.4-10.4) fL Immature Gran % (Auto) % Neut % (Auto) % Lymph % (Auto) % Avery % (Auto) % Eos % (Auto) % Baso % (Auto) % Neut # (Auto) (1.4-6.5) K/uL Lymph # (Auto) (1.2-3.4) K/uL Avery # (Auto) (0.11-0.59) K/uL Eos # (Auto) (0-0.5) K/uL Baso # (Auto) (0-0.2) K/uL Immature Gran # (Auto) (0.00-0.02) K/uL ESR (0-30) mm/hr PT (9.0-12.0) Seconds INR (0.9-1.1) Sodium 140 (136-145) mmol/L Potassium 3.4 L (3.5-5.1) mmol/L Chloride 107 (98-107) mmol/L Carbon Dioxide 28 (21-32) mmol/L Anion Gap 5.0 (3-11) BUN 19 H (7-18) mg/dl Creatinine 0.72 (0.6-1.2) mg/dl Est Cr Clr Drug Dosing 77.2 ml/min Est GFR ( Amer) 98.3 ml/min Est GFR (Non-Af Amer) 84.9 ml/min BUN/Creatinine Ratio 26.9 H (10-20) Glucose 98 (70-99) mg/dl Uric Acid 4.3 (2.6-7.2) mg/dl Calcium 9.6 (8.5-10.1) mg/dl Magnesium 2.3 (1.8-2.4) mg/dl Total Bilirubin 0.5 (0.2-1) mg/dl AST 17 (15-37) U/L ALT 8 L (12-78) U/L Alkaline Phosphatase 101 (45-117) U/L C-Reactive Protein 2.58 H (0-0.29) mg/dl Total Protein 6.9 (6.4-8.2) gm/dl Albumin 3.3 L (3.4-5.0) gm/dl Globulin 3.6 (2.5-4.0) gm/dl Albumin/Globulin Ratio 0.9 (0.9-2) Imaging Data Radiologist's Impression: Foot X-Ray 11/17/20 09:22 XR foot RT min 3V routine HISTORY: 70 years-old Female Pain swelling acute right foot pain with soft tissue swelling. No reported trauma COMPARISON: None TECHNIQUE: 3 views of the right foot FINDINGS: Demineralized appearance of the bones. A millimeter corticated ossification medial to the first MTP joint may reflect chronic fracture fragment. 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 Moderate sized plantar enthesophyte of the calcaneus. Mild dorsal forefoot soft tissue swelling. No acute fracture or dislocation. IMPRESSION: Soft tissue swelling without acute fracture or dislocation. ACT 112: Negative or not required by law. The above report was generated using voice recognition software. It may contain grammatical, syntax or spelling errors. Electronically signed by: Keshawn Foster M.D. 11/17/2020 10:19 AM Blood Pressure Blood Pressure Findings: Normal blood pressure Blood Pressure Disposition: did not require urgent referral MDM Narrative This patient was evaluated and appeared to be in no significant distress. IV access was obtained and laboratory work was drawn. Plain x-rays of the right foot were performed and reveal no evidence of acute fracture. Chronic degenerative changes are noted. Laboratory work reveals a normal WBC however there is an elevated sed rate and CRP. Patient was medicated with 2 g of IV ceftriaxone for presumed cellulitis. Given the uncontrolled pain with any weightbearing activity, elevated inflammatory markers and erythematous changes, the patient will be evaluated by the hospitalist service for further evaluation of potential osteomyelitis. Patient was made aware of the plan and agrees. Impression & Plan Cellulitis of foot, right Discharge Plan Visit Data Chief Complaint: Foot Injury/Pain Stated Complaint: R FOOT PAIN ED Provider: Tena Fair Discharge Problem: Cellulitis of foot, right Patient Disposition: Admitted As Inpatient Discharge Instructions Interventions: ED Discharge Assessment Last Done: 11/17/20 13:23
[2020-11-17] MEDS: ALBUT/IPRATROP 3MG/0.5MG NEB 3 ML VIAL INH SCH ×2 (15:24→19:41)
[2020-11-17] MEDS: LINACLOTIDE 145 MCG CAPSULE PO SCH (16:04)
[2020-11-17] MEDS: DICLOFENAC SOD 1% GEL 100 GM TUBE EXT SCH ×2 (16:04→22:12)
[2020-11-17] MEDS: CARBIDOPA/LEVODOPA 25/100MG TAB PO SCH ×2 (16:04→22:09)
[2020-11-17] MEDS: METAXALONE 800 MG TABLET PO SCH ×2 (16:05→22:13)
[2020-11-17] MEDS ORDERED: ALBUT/IPRATROP 3MG/0.5MG NEB 3 ML VIAL INH SCH (17:00)
--- NOTE | 2020-11-17 18:43 | Pharmacy Report ---
Pharmacy Abx Initial Consult - Date of Service November 17, 2020 - Pharmacy Dosing Scope Date of Consult: 11/17/20 Consultation requested by: Sara Kerns PA-C Pharmacy is consulted to initiate VANCOMYCIN and ROCEPHIN IV/ dosing therapy, order appropriate labs and adjust drug dose/frequency. - Subjective The patient is a 70 year old F admitted on 11/17/20 11:42. - Objective Height: 5 ft 1 in Weight: 96.4 kg Vital Signs (Past 12hrs): Vital Signs Temp Pulse Pulse Resp BP BP BP 11/17/20 15:25 85 16 11/17/20 14:56 36.7 C 81 18 126/86 11/17/20 14:09 76 11/17/20 14:00 36.8 C 80 22 111/67 11/17/20 13:05 74 13 129/70 11/17/20 12:31 71 24 132/96 11/17/20 12:01 75 17 122/102 H 11/17/20 11:31 67 19 143/84 H 11/17/20 11:01 70 25 H 147/84 H 11/17/20 10:31 60 19 153/77 H 11/17/20 10:01 58 L 12 140/92 11/17/20 09:53 63 16 171/90 H 11/17/20 09:51 64 20 171/90 H 11/17/20 09:40 68 16 129/89 11/17/20 09:00 64 14 131/84 11/17/20 08:43 65 20 131/84 11/17/20 08:15 36.9 C 61 18 159/84 H Pulse Ox 11/17/20 15:25 94 11/17/20 14:56 95 11/17/20 14:09 11/17/20 14:00 96 11/17/20 13:05 94 11/17/20 12:31 96 11/17/20 12:01 93 11/17/20 11:31 92 11/17/20 11:01 96 11/17/20 10:31 90 11/17/20 10:01 93 11/17/20 09:53 97 11/17/20 09:51 99 11/17/20 09:40 96 11/17/20 09:00 99 11/17/20 08:43 98 11/17/20 08:15 98 Lab Results (24hrs): Laboratory Tests (24 Hours) 11/17/20 11/17/20 11/17/20 09:41 09:41 09:41 WBC 9.84 Neut # (Auto) 7.38 H ESR 47 H Creatinine 0.72 Est Cr Clr Drug Dosing 77.2 C-Reactive Protein 2.58 H Micro Results: 11/17/20 12:29 Aerobic Blood Culture - Pending Blood Anaerobic Blood Culture - Pending 11/17/20 12:29 Aerobic Blood Culture - Pending Blood Anaerobic Blood Culture - Pending - Assessment & Plan Assessment 70 year old F admitted with RLL cellulitis, ordered VANCOMYCIN + ROCEPHIN. Plan Vancomycin IV * Loading dose: 2000mg (~21 mg/kg) * Maintenance dose: 1000mg IV every 8 hours * Patient meets criteria for vancomycin AUC dosing nomogram * AUC/KO is the preferred PK/PD target for vancomycin * Target AUC/KO = 400-600 * AUC guided dosing is effective and associated with decreased risk of nephrotoxicity Pharmacy will continue to follow and will adjust dose/frequency as necessary. Thank you.
[2020-11-17] MEDS: rOPINIRole HCL 1 MG TABLET PO SCH ×2 (19:29→22:09)
[2020-11-17] MEDS: ACETAMINOPHEN 325 MG TAB PO PRN (19:58)
[2020-11-17] MEDS ORDERED: NON-FORMULARY MEDICATION (Biotin 1,000 mcg Tablet,Chewable) PO SCH (21:00)
[2020-11-17] MEDS: THIAMINE HCL 100 MG TAB PO SCH (22:10)
[2020-11-17] MEDS: MONTELUKAST SODIUM 10 MG TABLET PO SCH (22:10)
[2020-11-17] MEDS: CALCIUM CITRATE 950 MG TAB PO SCH (22:11)
[2020-11-17] MEDS: ATORVASTATIN 20 MG TAB PO SCH (22:11)
[2020-11-17] MEDS: MAGNESIUM OXIDE 400 MG TAB PO SCH (22:12)
[2020-11-17] MEDS: OMEGA-3 (PURIFIED FISH OIL) 1 GM CAP PO SCH (22:12)
[2020-11-17] MEDS: FLUTICASONE PROPIONATE NA SPR 16 GM BTL NAE SCH (22:12)
[2020-11-17] MEDS: METOPROLOL TARTRATE 25 MG TAB PO SCH (22:13)
[2020-11-17] MEDS: VANCOMYCIN HCL 1,000 MG in SODIUM CHLORIDE 0.9% 250 ML IV SCH (23:32)
[2020-11-18] MEDS: ACETAMINOPHEN 325 MG TAB PO PRN ×2 (02:27→11:08)
[2020-11-18] MEDS: LEVOTHYROXINE SODIUM 50 MCG TABLET PO SCH (06:32)
[2020-11-18 07:01] LABS: Hematocrit (blood only) 38.7 % (37-47); Hemoglobin 12.1 g/dL (12.0-16.0); Mean Corpuscular Hemoglobin 31.5 pg (25-34); Mean Corpuscular Hgb Conc 31.3 g/dL (32-36); Mean Corpuscular Volume 100.8 fL (80-100); Mean Platelet Volume 10.3 fL (7.4-10.4); Platelet Count 282 K/uL (130-400); RDW Coefficient of Variation 15.1 % (11.5-14.5); RDW Standard Deviation 55.4 fL (36.4-46.3); Red Blood Count 3.84 M/uL (4.2-5.4); White Blood Count 7.24 K/uL (4.8-10.8)
[2020-11-18 07:11] LABS: INR 2.9 (0.9-1.1); Prothrombin Time 27.2 Seconds (9.0-12.0)
[2020-11-18] MEDS: ALBUT/IPRATROP 3MG/0.5MG NEB 3 ML VIAL INH SCH (07:24)
[2020-11-18] MEDS ORDERED: ALBUT/IPRATROP 3MG/0.5MG NEB 3 ML VIAL INH PRN (07:29)
[2020-11-18 07:49] LABS: BUN Creatinine Ratio 25.3 (10-20); Calcium 9.8 mg/dl (8.5-10.1); Est GFR (African American) 105.3 ml/min; Est GFR (Non-African American) 90.9 ml/min; Potassium 4.5 mmol/L (3.5-5.1)
--- NOTE | 2020-11-18 07:55 | Hospitalist Progress Note ---
Date of Service November 18, 2020 Assessment & Plan (1) Cellulitis of right foot: This is a 70yo F with a PMH of Edenilson-Danlos syndrome, intermittent asthma, hypertension, chronic diastolic heart failure, paroxysmal SVT on Coumadin, RLS, anxiety, BRANDIE intolerant to CPAP and other medical problems listed below who presents with R foot pain over the past month. Recent foot XR at [facility] without evidence of fracture XR now showing soft tissue swelling without acute fracture or dislocation Has tried lidocaine to foot in the past but had skin irritation -has been seen multiple times in clinic for foot pain Afebrile, no leukocytosis. ESR elevated at 47. CRP elevated at 2.58 Ordering MRI of foot for better visualization, rule out osteomyelitis - Motion degraded exam. No acute fracture or evidence of osteomyelitis. 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 Diffuse subcutaneous and deep tissue edema suggests cellulitis, venous stasis or lymphedema. Intrinsic atrophy of the musculature with associated edema suggestive of denervation changes. Continue empiric abx with rocephin, vanco. 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 Continue home dose metoprolol tartrate (7) ISAC (generalized anxiety disorder): Hydroxyzine as needed (8) Restless leg syndrome: Continue Requip (9) Hypothyroidism: Continue levothyroxine (10) Gastroparesis: Continue Linzess, antiemetics as needed, bowel regimen per home med rec (11) Asthma: Continue Singulair, home inhalers (12) Thoracic aortic aneurysm: Follows with Dr. Arredondo (13) Sleep apnea: Intolerant to CPAP DVT Ppx: coumadin Code status: FULL PCP: Jason Dispo: Admitted to [facility]. Discharge planning ordered Admission and Anticipated Discharge Date Admission Date: November 17, 2020 Subjective Patient seen in follow-up of LE cellulitis and pain Patient reports that pain is located at the dorsum of her foot for the most part, and she reports erythema mostly at the dorsum Currently the dorsum of her foot is light pink, but patient feels that this is a difference from her usual skin color, foot is warm to touch She also reports significant pain in her foot especially with different positioning ESR, CRP elevated MRI foot obtained, radiology read initially not available, however now reviewed, does not show osteomyelitis Orthopedics was consulted for foot pain, and awaiting their input Blood cultures pending Patient otherwise denies any fevers, chills, chest pain, shortness of breath, says occasionally she has chest discomfort when she feels anxious, denies any abdominal pain, nausea or vomiting Review of Systems Review of Systems: All systems reviewed & are unremarkable except as noted in HPI & below Constitutional: no fever and no chills Respiratory: no cough and no dyspnea Cardiovascular: no chest pain Gastrointestinal: no abdominal pain, no nausea and no vomiting Physical Exam Physical Exam: General Appearance: WD/WN, obese F, in NAD, sitting up in bed Head: normocephalic, atraumatic Eyes: normal inspection, PERRL, EOMI, conjunctivae normal, anicteric sclerae ENT: external ear and nose normal, oropharynx normal Neck: normal visual inspection, trachea midline, no thyromegaly Respiratory: normal respiratory effort, lungs clear to auscultation, no wheeze, rales, rhonchi. No accessory muscle use Cardiovascular: regular rate, rhythm, no murmur appreciated Chest: normal inspection of chest Abdomen/GI: normal bowel sounds, soft, obese, nontender Extremities/Musculoskeletal: R dorsum of foot with erythema and edema, warm to t ouch. Not extending to ankle and no streaking. No wounds visualized. TTP. No cyanosis or clubbing, extremities motor strength 5/5 Neurologic: PERRL, EOMI, no face palsy, no dysarthria, CN's II-XI intact bilaterally and moves all extremities Psychiatric: A+Ox3, mildly anxious Skin: no rashes, normal color, warm/dry Results & Data Results & Data ([facility]) Vital Signs (Past 12 Hours) Vital Signs Temp Pulse Pulse Resp BP Pulse Ox 11/18/20 07:37 56 L 11/18/20 03:58 36.8 C 59 L 20 122/79 96 11/18/20 00:13 66 11/17/20 22:52 36.5 C 65 20 106/64 94 Laboratory Results 11/18/20 11/18/20 11/18/20 Range/Units 06:37 06:37 06:37 WBC 7.24 (4.8-10.8) K/uL RBC 3.84 L (4.2-5.4) M/uL Hgb 12.1 (12.0-16.0) g/dL Hct 38.7 (37-47) % MCV 100.8 H (80-100) fL MCH 31.5 (25-34) pg MCHC 31.3 L (32-36) g/dL RDW Std Deviation 55.4 H (36.4-46.3) fL RDW Coeff of Neftaly 15.1 H (11.5-14.5) % Plt Count 282 (130-400) K/uL MPV 10.3 (7.4-10.4) fL Immature Gran % (Auto) % Neut % (Auto) % Lymph % (Auto) % [place] % (Auto) % Eos % (Auto) % Baso % (Auto) % Neut # (Auto) (1.4-6.5) K/uL Lymph # (Auto) (1.2-3.4) K/uL [place] # (Auto) (0.11-0.59) K/uL Eos # (Auto) (0-0.5) K/uL Baso # (Auto) (0-0.2) K/uL Immature Gran # (Auto) (0.00-0.02) K/uL ESR (0-30) mm/hr PT 27.2 H (9.0-12.0) Seconds INR 2.9 H (0.9-1.1) Sodium 141 (136-145) mmol/L Potassium 4.5 D (3.5-5.1) mmol/L Chloride 109 H (98-107) mmol/L Carbon Dioxide 28 (21-32) mmol/L Anion Gap 4.0 (3-11) BUN 16 (7-18) mg/dl Creatinine 0.63 (0.6-1.2) mg/dl Est Cr Clr Drug Dosing 88.0 ml/min Est GFR ( Amer) 105.3 ml/min Est GFR (Non-Af Amer) 90.9 ml/min BUN/Creatinine Ratio 25.3 H (10-20) Glucose 107 H (70-99) mg/dl Uric Acid (2.6-7.2) mg/dl Calcium 9.8 (8.5-10.1) mg/dl Magnesium (1.8-2.4) mg/dl Total Bilirubin (0.2-1) mg/dl AST (15-37) U/L ALT (12-78) U/L Alkaline Phosphatase (45-117) U/L C-Reactive Protein (0-0.29) mg/dl Total Protein (6.4-8.2) gm/dl Albumin (3.4-5.0) gm/dl Globulin (2.5-4.0) gm/dl Albumin/Globulin Ratio (0.9-2) Nasal Screen MRSA (PCR) (Negative) COVID-19 Eval Order SARS-CoV-2 (PCR) (Negative) 11/18/20 11/17/20 11/17/20 Range/Units 03:58 Unknown Unknown WBC (4.8-10.8) K/uL RBC (4.2-5.4) M/uL Hgb (12.0-16.0) g/dL Hct (37-47) % MCV (80-100) fL MCH (25-34) pg MCHC (32-36) g/dL RDW Std Deviation (36.4-46.3) fL RDW Coeff of Neftaly (11.5-14.5) % Plt Count (130-400) K/uL MPV (7.4-10.4) fL Immature Gran % (Auto) % Neut % (Auto) % Lymph % (Auto) % [place] % (Auto) % Eos % (Auto) % Baso % (Auto) % Neut # (Auto) (1.4-6.5) K/uL Lymph # (Auto) (1.2-3.4) K/uL [place] # (Auto) (0.11-0.59) K/uL Eos # (Auto) (0-0.5) K/uL Baso # (Auto) (0-0.2) K/uL Immature Gran # (Auto) (0.00-0.02) K/uL ESR (0-30) mm/hr PT (9.0-12.0) Seconds INR (0.9-1.1) Sodium (136-145) mmol/L Potassium (3.5-5.1) mmol/L Chloride (98-107) mmol/L Carbon Dioxide (21-32) mmol/L Anion Gap (3-11) BUN (7-18) mg/dl Creatinine (0.6-1.2) mg/dl Est Cr Clr Drug Dosing ml/min Est GFR ( Amer) ml/min Est GFR (Non-Af Amer) ml/min BUN/Creatinine Ratio (10-20) Glucose (70-99) mg/dl Uric Acid (2.6-7.2) mg/dl Calcium (8.5-10.1) mg/dl Magnesium (1.8-2.4) mg/dl Total Bilirubin (0.2-1) mg/dl AST (15-37) U/L ALT (12-78) U/L Alkaline Phosphatase (45-117) U/L C-Reactive Protein (0-0.29) mg/dl Total Protein (6.4-8.2) gm/dl Albumin (3.4-5.0) gm/dl Globulin (2.5-4.0) gm/dl Albumin/Globulin Ratio (0.9-2) Nasal Screen MRSA (PCR) Negative (Negative) COVID-19 Eval Order Covid19 at [facility] SARS-CoV-2 (PCR) NEGATIVE (Negative) 11/17/20 11/17/20 11/17/20 Range/Units 09:41 09:41 09:41 WBC (4.8-10.8) K/uL RBC (4.2-5.4) M/uL Hgb (12.0-16.0) g/dL Hct (37-47) % MCV (80-100) fL MCH (25-34) pg MCHC (32-36) g/dL RDW Std Deviation (36.4-46.3) fL RDW Coeff of Neftaly (11.5-14.5) % Plt Count (130-400) K/uL MPV (7.4-10.4) fL Immature Gran % (Auto) % Neut % (Auto) % Lymph % (Auto) % [place] % (Auto) % Eos % (Auto) % Baso % (Auto) % Neut # (Auto) (1.4-6.5) K/uL Lymph # (Auto) (1.2-3.4) K/uL [place] # (Auto) (0.11-0.59) K/uL Eos # (Auto) (0-0.5) K/uL Baso # (Auto) (0-0.2) K/uL Immature Gran # (Auto) (0.00-0.02) K/uL ESR (0-30) mm/hr PT 28.3 H (9.0-12.0) Seconds INR 3.0 H (0.9-1.1) Sodium 140 (136-145) mmol/L Potassium 3.4 L (3.5-5.1) mmol/L Chloride 107 (98-107) mmol/L Carbon Dioxide 28 (21-32) mmol/L Anion Gap 5.0 (3-11) BUN 19 H (7-18) mg/dl Creatinine 0.72 (0.6-1.2) mg/dl Est Cr Clr Drug Dosing 77.2 ml/min Est GFR ( Amer) 98.3 ml/min Est GFR (Non-Af Amer) 84.9 ml/min BUN/Creatinine Ratio 26.9 H (10-20) Glucose 98 (70-99) mg/dl Uric Acid 4.3 (2.6-7.2) mg/dl Calcium 9.6 (8.5-10.1) mg/dl Magnesium 2.3 (1.8-2.4) mg/dl Total Bilirubin 0.5 (0.2-1) mg/dl AST 17 (15-37) U/L ALT 8 L (12-78) U/L Alkaline Phosphatase 101 (45-117) U/L C-Reactive Protein 2.58 H (0-0.29) mg/dl Total Protein 6.9 (6.4-8.2) gm/dl Albumin 3.3 L (3.4-5.0) gm/dl Globulin 3.6 (2.5-4.0) gm/dl Albumin/Globulin Ratio 0.9 (0.9-2) Nasal Screen MRSA (PCR) (Negative) COVID-19 Eval Order SARS-CoV-2 (PCR) (Negative) 11/17/20 11/17/20 Range/Units 09:41 09:41 WBC 9.84 (4.8-10.8) K/uL RBC 4.03 L (4.2-5.4) M/uL Hgb 12.5 (12.0-16.0) g/dL Hct 39.6 (37-47) % MCV 98.3 (80-100) fL MCH 31.0 (25-34) pg MCHC 31.6 L (32-36) g/dL RDW Std Deviation 52.6 H (36.4-46.3) fL RDW Coeff of Neftaly 14.6 H (11.5-14.5) % Plt Count 265 (130-400) K/uL MPV 10.0 (7.4-10.4) fL Immature Gran % (Auto) 0.1 % Neut % (Auto) 75.0 % Lymph % (Auto) 11.0 % [place] % (Auto) 13.7 % Eos % (Auto) 0.1 % Baso % (Auto) 0.1 % Neut # (Auto) 7.38 H (1.4-6.5) K/uL Lymph # (Auto) 1.08 L (1.2-3.4) K/uL [place] # (Auto) 1.35 H (0.11-0.59) K/uL Eos # (Auto) 0.01 (0-0.5) K/uL Baso # (Auto) 0.01 (0-0.2) K/uL Immature Gran # (Auto) 0.01 (0.00-0.02) K/uL ESR 47 H (0-30) mm/hr PT (9.0-12.0) Seconds INR (0.9-1.1) Sodium (136-145) mmol/L Potassium (3.5-5.1) mmol/L Chloride (98-107) mmol/L Carbon Dioxide (21-32) mmol/L Anion Gap (3-11) BUN (7-18) mg/dl Creatinine (0.6-1.2) mg/dl Est Cr Clr Drug Dosing ml/min Est GFR ( Amer) ml/min Est GFR (Non-Af Amer) ml/min BUN/Creatinine Ratio (10-20) Glucose (70-99) mg/dl Uric Acid (2.6-7.2) mg/dl Calcium (8.5-10.1) mg/dl Magnesium (1.8-2.4) mg/dl Total Bilirubin (0.2-1) mg/dl AST (15-37) U/L ALT (12-78) U/L Alkaline Phosphatase (45-117) U/L C-Reactive Protein (0-0.29) mg/dl Total Protein (6.4-8.2) gm/dl Albumin (3.4-5.0) gm/dl Globulin (2.5-4.0) gm/dl Albumin/Globulin Ratio (0.9-2) Nasal Screen MRSA (PCR) (Negative) COVID-19 Eval Order SARS-CoV-2 (PCR) (Negative) Medications Administered Current Inpatient Medications Acetaminophen (Acetaminophen 325 Mg Tab) 650 mg PO Q4H PRN PRN Reason: Pain or Fever Stop: 12/17/20 13:57 Last Admin: 11/18/20 02:27 Dose: 650 mg Documented by: Albuterol (Albuterol Hfa 8 Gm Inhaler) 2 puffs INH QID PRN PRN Reason: Shortness Of Breath Stop: 12/17/20 13:57 Albuterol (Albut/Ipratrop 3mg/0.5mg Neb 3 Ml Vial) 3 ml INH QIDR PRN PRN Reason: Shortness Of Breath Or Wheezing Stop: 12/17/20 14:59 Atorvastatin Calcium (Atorvastatin 20 Mg Tab) 20 mg PO HS [facility] Stop: 12/17/20 20:59 Last Admin: 11/17/20 22:11 Dose: 20 mg Documented by: Calcium Citrate (Calcium Citrate 950 Mg Tab) 950 mg PO BID ASHUTOSH Stop: 12/17/20 20:59 Last Admin: 11/17/20 22:11 Dose: 950 mg Documented by: Carbidopa/Levodopa (Carbidopa/Levodopa 25/100mg Tab) 1 tab PO QID [facility] Stop: 12/17/20 16:59 Last Admin: 11/17/20 22:09 Dose: 1 tab Documented by: Diclofenac Sodium (Diclofenac Sod 1% Gel 100 Gm Tube) 2 gm EXT QID [facility] Stop: 12/17/20 16:59 Last Admin: 11/17/20 22:12 Dose: 2 gm Documented by: Docusate Sodium (Docusate Sodium 100 Mg Cap) 100 mg PO BID PRN PRN Reason: Constipation Stop: 12/17/20 15:15 Ergocalciferol (Ergocalciferol 50,000 Units 1250 Mcg Cap) 50,000 units PO Th@0900 [facility] Stop: 12/24/20 08:59 Fish Oil ([place]-3 (Purified Fish Oil) 1 Gm Cap) 1 gm PO HS [facility] Stop: 12/17/20 20:59 Last Admin: 11/17/20 22:12 Dose: 1 gm Documented by: Fluticasone Propionate (Fluticasone Propionate Na Spr 16 Gm Btl) 2 sprays ELYSE BID [facility] Stop: 12/17/20 20:59 Last Admin: 11/17/20 22:12 Dose: 2 sprays Documented by: Fluticasone/Vilanterol (Fluticasone/Vilanterol 100/25mcg 14 Puffs/Inhaler) 1 puffs INH DAILY [facility] Stop: 12/18/20 08:59 Hydroxyzine HCl (Hydroxyzine Hcl 25 Mg Tab) 25 mg PO Q6H PRN PRN Reason: Anxiety Stop: 12/17/20 13:57 Last Admin: 11/17/20 15:13 Dose: 25 mg Documented by: Ceftriaxone Sodium 2,000 mg/ (Dextrose) 70 mls @ 140 mls/hr IV Q24H [facility] Stop: 11/24/20 11:59 Vancomycin HCl 1,000 mg/ (Sodium Chloride) 270 mls @ 200 mls/hr IV Q8H [facility] Stop: 11/25/20 00:00 Last Infusion: 11/18/20 01:04 Dose: Infused Documented by: Ipratropium [place] (Ipratropium [place] Nasal [place] 0.06% 15ml) 1 sprays ELYSE QID PRN PRN Reason: CONGESTION Stop: 12/17/20 15:16 Levothyroxine Sodium (Levothyroxine Sodium 50 Mcg Tablet) 50 mcg PO DAILYBB [facility] Stop: 12/18/20 06:29 Last Admin: 11/18/20 06:32 Dose: 50 mcg Documented by: Linaclotide (Linaclotide 145 Mcg Capsule) 290 mcg PO DAILY@1500 [facility] Stop: 12/17/20 14:59 Last Admin: 11/17/20 16:04 Dose: 290 mcg Documented by: Magnesium Oxide (Magnesium Oxide 400 Mg Tab) 400 mg PO [facility] Stop: 12/17/20 20:59 Last Admin: 11/17/20 22:12 Dose: 400 mg Documented by: Metaxalone (Metaxalone 800 Mg Tablet) 800 mg PO QID [facility] Stop: 12/17/20 16:59 Last Admin: 11/17/20 22:13 Dose: 800 mg Documented by: Metoprolol Tartrate (Metoprolol Tartrate 25 Mg Tab) 12.5 mg PO [facility] Stop: 12/17/20 20:59 Last Admin: 11/17/20 22:13 Dose: 12.5 mg Documented by: Metoprolol Tartrate (Metoprolol Tartrate 25 Mg Tab) 25 mg PO DAILY [facility] Stop: 12/18/20 08:59 Miscellaneous Information (Vancomycin Consult Active) 1 ea N/A UD PRN PRN Reason: Consult Stop: 12/17/20 14:29 Miscellaneous Information (Ceftriaxone - Pharmacy Consult In Progress) 1 ea N/A UD PRN PRN Reason: Consult Stop: 12/17/20 14:30 Montelukast Sodium (Montelukast Sodium 10 Mg Tablet) 10 mg PO [facility] Stop: 12/17/20 20:59 Last Admin: 11/17/20 22:10 Dose: 10 mg Documented by: Multivitamins/Minerals (Cerovite Adv Formula Tab) 1 tab PO DAILY@1200 [facility] Stop: 12/18/20 11:59 Ondansetron HCl (Ondansetron Inj 2 Mg/Ml 2 Ml Vial) 4 mg IV Q6H PRN PRN Reason: Nausea Stop: 12/17/20 13:57 Oxycodone/Acetaminophen (Oxycodone/Acetaminophen 5mg/325mg Tab) 1 tab PO Q4H PRN PRN Reason: Pain Stop: 12/01/20 13:57 Last Admin: 11/17/20 15:13 Dose: 1 tab Documented by: Pantoprazole Sodium ([facility]oprazole 40 Mg Tab) [facility] [place]: 12/18/20 08:59 Polyethylene Glycol (Polyethylene (Miralax) 17 Gm Pack) 17 gm PO DAILY PRN PRN Reason: Constipation Stop: 12/17/20 13:57 Ropinirole HCl (Ropinirole Hcl 1 Mg Tablet) 2 mg PO TID@0730,1200,1800 [facility] Stop: 12/17/20 19:14 Last Admin: 11/17/20 19:29 Dose: 2 mg Documented by: Ropinirole HCl (Ropinirole Hcl 1 Mg Tablet) 4 mg PO HS [facility] Stop: 12/17/20 21:59 Last Admin: 11/17/20 22:09 Dose: 4 mg Documented by: Senna/Docusate Sodium (Docusate Sodium/Senna 50/8.6mg Tab) 1 tab PO BID PRN PRN Reason: Constipation Stop: 12/17/20 13:57 Thiamine HCl (Thiamine Hcl 100 Mg Tab) 100 mg PO BID [facility] Stop: 12/17/20 20:59 Last Admin: 11/17/20 22:10 Dose: 100 mg Documented by: Tramadol HCl (Tramadol Hcl 50 Mg Tablet) 50 mg PO Q8H PRN PRN Reason: Pain Stop: 12/17/20 13:57 Trazodone HCl (Trazodone Hcl 50 Mg Tab) 25 mg PO HS PRN PRN Reason: Insomnia Stop: 12/17/20 13:57 Warfarin Sodium (Warfarin Sod 5 Mg Tab) 5 mg PO TUSA@1600 [facility] Stop: 12/19/20 15:59 Warfarin Sodium (Warfarin Sod 2.5 Mg Tab) 2.5 mg PO SUMOWETHFR@1600 [facility] Stop: 12/17/20 15:59 (1) Thoracic aortic aneurysm Presence of rupture: without rupture Qualified Code(s): I71.2 - Thoracic aortic aneurysm, without rupture
[2020-11-18] MEDS: CARBIDOPA/LEVODOPA 25/100MG TAB PO SCH ×4 (07:56→20:32)
[2020-11-18] MEDS: CALCIUM CITRATE 950 MG TAB PO SCH ×2 (07:57→20:34)
[2020-11-18] MEDS: THIAMINE HCL 100 MG TAB PO SCH ×2 (07:57→20:35)
[2020-11-18] MEDS: METOPROLOL TARTRATE 25 MG TAB PO SCH ×2 (07:57→20:35)
[2020-11-18] MEDS: PANTOprazole 40 MG TAB PO SCH (07:57)
[2020-11-18] MEDS: METAXALONE 800 MG TABLET PO SCH ×4 (07:57→20:33)
[2020-11-18] MEDS: DICLOFENAC SOD 1% GEL 100 GM TUBE EXT SCH ×4 (07:58→20:35)
[2020-11-18] MEDS: rOPINIRole HCL 1 MG TABLET PO SCH ×4 (07:58→20:33)
[2020-11-18] MEDS: FLUTICASONE/VILANTEROL 100/25MCG 14 PUFFS/INHALER INH SCH (07:59)
[2020-11-18] MEDS: FLUTICASONE PROPIONATE NA SPR 16 GM BTL NAE SCH ×2 (07:59→20:34)
[2020-11-18] MEDS: traMADol HCL 50 MG TABLET PO PRN (08:05)
[2020-11-18] MEDS: VANCOMYCIN HCL 1,000 MG in SODIUM CHLORIDE 0.9% 250 ML IV SCH ×3 (08:05→23:40)
[2020-11-18] MEDS: SENNA 8.6 MG TAB PO SCH (10:20)
[2020-11-18] MEDS: CEROVITE ADV FORMULA TAB PO SCH (11:09)
[2020-11-18] MEDS: cefTRIAXone SODIUM 2,000 MG in DEXTROSE 5% 50 ML IV SCH (12:32)
--- NOTE | 2020-11-18 12:33 | Magnetic Resonance Report ---
MR foot RT w/o con HISTORY: 70 years-old Female R foot pain cellul, concern for underling osteo chronic right foot pa in with cellulitis. Clinical concern for osteomyelitis. COMPARISON: Right foot radiographs of same day. TECHNIQUE: Multiplanar and multisequence MRI of the right foot was obtained without the use of IV con trast. FINDINGS: Type II accessory navicular. There is severe joint space narrowing with prominent subcortical cystic change and edema within the tarsal metatarsal articulations. 5 mm corticated ossification is again no sergo medial to the first tarsal metatarsal joint suggestive of a fragmented osteophyte versus chronic fracture fragment. No acute fracture, dislocation or osseous erosion to suggest osteomyelitis. The st udy is motion degraded. There is atrophy of the intrinsic musculature. Diffuse subcutaneous, intramus cular and deep tissue edema of the foot. The visualized ligaments and tendons appear intact. The [place] ranc ligament is intact. IMPRESSION: 1. Motion degraded exam. No acute fracture or evidence of osteomyelitis. 2. 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 3. Diffuse subcutaneous and deep tissue edema suggests cellulitis, venous stasis or lymphedema. 4. Intrinsic atrophy of the musculature with associated edema suggestive of denervation changes. ACT 112: Negative or not required by law. The above report was generated using voice recognition software. It may contain grammatical, syntax o r spelling errors. Dictated: 11/18/2020 8:37 AM Transcribed: 11/18/2020 9:23 AM Clare [id number] [email or web address] Electronically signed by: Keshawn Foster M.D. 11/18/2020 12:32 PM
[2020-11-18] MEDS: oxyCODONE/ACETAMINOPHEN 5mg/325mg TAB PO PRN ×2 (12:40→20:30)
[2020-11-18] MEDS ORDERED: VANCOMYCIN TROUGH ONE (15:30)
[2020-11-18] MEDS: LINACLOTIDE 145 MCG CAPSULE PO SCH (16:08)
--- NOTE | 2020-11-18 17:15 | Pharmacy Report ---
Pharmacy Abx Dose Short Note - Date of Service November 18, 2020 - Assessment & Plan Assessment 70 year old F receiving Vancomycin and Ceftriaxone for treatment of cellulitis * Day #2 of antimicrobial therapy * No growth in blood cultures. Afebrile. Plan Vancomycin * Trough level of 24.7 mcg/mL is supratherapeutic * Change to 1000 mg IV every 12 hours * Goal trough level: 15 to 20 mcg/mL * Trough level ordered for Saturday morning Pharmacy will continue to follow and will adjust dose/frequency as necessary. Thank you.
[2020-11-18] MEDS ORDERED: WARFARIN SOD 2.5 MG TAB PO ONE (17:21)
[2020-11-18] MEDS: ADVANCED PROBIOTIC 1250 MG CAPSULE PO SCH (17:52)
--- NOTE | 2020-11-18 18:17 | Orthopedic Consultation ---
Date of Consultation November 18, 2020 Assessment & Plan (1) Arthritis of foot: Severe midfoot arthritis with underlying neuropathy. Patient may weight- bear as tolerated on right lower extremity and supportive, hard soled shoe. Ice and elevation. Will order Lidoderm patch. No further intervention at this time. Would like follow-up with foot and ankle team, [place] [facility] [place], . Patient agreeable to plan and all questions were answered to satisfaction. Thank you for the consultation. (2) Peripheral neuropathy: History of Present Illness Reason for Consultation: Right foot pain Attending Physician: Jez Sultana MD History of Present Illness The patient is a 70-year-old female with past medical history noted below who presented to [facility] for worsening right foot pain. Was admitted for further evaluation and treatment. Patient has history of bilateral lower extremity neuropathy she reports she has had her whole life. Does not recall trauma right foot however in further discussion patient may have injured her foot without knowing. Did have ecchymoses involving the medial and plantar aspect of her foot which has started to improve. Denies any associated injuries. Patient reports she does see podiatry for her chronic foot problems. Allergies Allergy/AdvReac Type Severity Reaction Status Date / Time buspirone Allergy Severe NEURO Verified 11/17/20 08:37 COMPLICATIONS lisinopril Allergy Intermediate cough Verified 11/17/20 08:37 adhesive Allergy Mild skin tears Verified 11/17/20 08:37 ammonia Allergy Unknown SWELLING Verified 11/17/20 08:37 duloxetine Allergy Unknown RASH Verified 11/17/20 08:37 ITCHING NSAIDS (Non-Steroidal Allergy Unknown not Verified 11/17/20 08:37 Anti-Inflamma supposed to use-S/P GASTRIC BYPASS venlafaxine Allergy Unknown AFFECTS Verified 11/17/20 08:37 LEGS diphenhydramine AdvReac Unknown RESTLESS Verified 11/17/20 08:37 LEGS Dust Allergy Unknown ROACHES,DUST Uncoded 11/17/20 08:37 MITES-CLOGGED UP SINUSES-CAN'T BREATHE Home Medications Medication Instructions Recorded Confirmed Type [place]-3 Fish Oil 1 tab PO HS 04/15/18 11/17/20 History albuterol sulfate [Ventolin HFA] 2 puff INHALATION QID PRN 04/15/18 11/17/20 History atorvastatin 20 mg PO HS 04/15/18 11/17/20 History biotin 1,000 mcg PO HS 04/15/18 11/17/20 History calcium citrate 650 mg PO BID 04/15/18 11/17/20 History carbidopa-levodopa [Sinemet] 1 tab PO QID 04/15/18 11/17/20 History diclofenac sodium [Voltaren] 2 g TOPICAL QID 04/15/18 11/17/20 History ergocalciferol (vitamin D2) 50,000 unit PO WK 04/15/18 11/17/20 History fluticasone propionate [Flonase 2 spray INTRANASAL BID 04/15/18 11/17/20 History Allergy Relief] ipratropium bromide 2 spray INTRANASAL QID PRN 04/15/18 11/17/20 History magnesium 500 mg PO HS 04/15/18 11/17/20 History metaxalone [Metaxall] 800 mg PO QID 04/15/18 11/17/20 History omeprazole 20 mg PO QAM 04/15/18 11/17/20 History ondansetron 4 mg PO QID PRN 04/15/18 11/17/20 History sennosides-docusate sodium 1 tab PO BID PRN 04/15/18 11/17/20 History [Senna-S] tramadol 50 mg PO Q8H PRN 04/15/18 11/17/20 History ropinirole 0.5 mg PO DIRECTED 06/06/19 11/17/20 History cyanocobalamin (vitamin B-12) 1,000 mcg IM MONTHLY 08/09/19 11/17/20 History metoprolol tartrate 25 mg PO DAILY 08/09/19 11/17/20 History PreserVision AREDS-2 1 tab PO BID 01/18/20 11/17/20 History thiamine HCl (vitamin B1) 100 mg PO BID 01/18/20 11/17/20 History docusate sodium [Colace] 50 mg PO BID PRN 11/17/20 11/17/20 History fluticasone propion-salmeterol 1 inh INHALATION BID 11/17/20 11/17/20 History furosemide [Lasix] 40 mg PO DAILY PRN 11/17/20 11/17/20 History hydroxyzine HCl 25 mg PO Q6H PRN 11/17/20 11/17/20 History ipratropium-albuterol 3 ml INHALATION QID 11/17/20 11/17/20 History levothyroxine 50 mcg PO DAILY 11/17/20 11/17/20 History linaclotide [Linzess] 290 mcg PO DAILY@1500 11/17/20 11/17/20 History metoprolol tartrate 12.5 mg PO HS 11/17/20 11/17/20 History montelukast 10 mg PO HS 11/17/20 11/17/20 History mupirocin 1 applic TOPICAL TID 11/17/20 11/17/20 History potassium chloride 20 meq PO DAILY 11/17/20 11/17/20 History trazodone 25 mg PO HS PRN 11/17/20 11/17/20 History warfarin 2.5 mg PO SUMOWETHFR@1600 11/17/20 11/17/20 History warfarin 5 mg PO TUSA@1600 11/17/20 11/17/20 History cephalexin [Keflex] 750 mg PO Q8H 4 Days #12 cap 11/20/20 Rx oxycodone 5 mg PO Q8H PRN #10 cap 11/20/20 Rx Patient History Medical History ADHD Asthma uses PRN INH 3-4 x wk Bulging of intervertebral disc Claustrophobia Difficult intravenous access Dysphagia Edenilson-Danlos syndrome ISAC (generalized anxiety disorder) Gastroparesis GERD (gastroesophageal reflux disease) Hearing deficit History of colon polyps History of colon polyps History of DVT (deep vein thrombosis) chronic anticoagulation History of intestinal obstruction Hyperlipidemia Hypothyroidism Osteoarthritis Osteoporosis Peripheral neuropathy Protein C deficiency Pulmonary embolism 07/2018 - treated w/ lovenox - unk etiology Renal cyst Restless leg syndrome Sleep apnea unable to tolerate CPAP Tachycardia Thoracic aortic aneurysm follows w/ Dr. Arredondo - evaluated within last 6 mo Thyroid nodule Surgical History History of abdominoplasty + hernia repair History of arthroscopy of left knee History of bilateral breast reduction surgery History of cholecystectomy History of colonoscopy History of esophagogastroduodenoscopy (EGD) History of gastric bypass History of intestinal surgery History of laparotomy History of left knee replacement History of right knee joint replacement History of tonsillectomy Hx of melanoma excision shoulder S/P hysterectomy Self extubation attempted post gastric bypass Status post biopsy of thyroid gland benign Family History Uncle Stomach cancer Other No family history of adverse response to anesthesia No pertinent family history in first degree relatives Social History Smoking Status: Never smoker Second Hand Exposure: No; Hx Alcohol Use: No Hx Substance Use: No Preferred Language: Thai Communication Ability: Effective Visual Impairment: Limited Hearing Ability: Normal Deaf And Hard Of Hearing Teacher Required: No Beliefs That Will Affect Care: None Current Living Situation: Alone Current Living Situation Comment: has friends to help when needed Other Information That Helps Us Care for You: No Feels Safe at Home: Yes Safety Concerns: Feels Safe At This Time Assistive Devices: Glasses Review of Systems Review of Systems: All systems reviewed & are unremarkable except as noted in HPI & below Constitutional: as per Subjective / HPI Physical Exam Physical Exam: Right lower extremity is neurovascular and sensory intact, decreased sensation at baseline, positive edema, ecchymoses on the plantar aspect of the foot. Capillary refill less than 2 seconds, compartment soft nontender, skin clean dry and intact. Constitutional: WD/WN, vitals as above Results & Data ([facility]) Vital Signs (Past 12 Hours) Vital Signs Temp Pulse Pulse Resp BP Pulse Ox 11/18/20 14:33 36.5 C 59 L 20 110/64 93 11/18/20 11:50 36.6 C 60 18 128/66 98 11/18/20 07:53 36.5 C 62 20 141/81 H 95 11/18/20 07:37 56 L Diagnostic Findings MR foot RT w/o con HISTORY: 70 years-old Female R foot pain cellul, concern for underling osteo chronic right foot pain with cellulitis. Clinical concern for osteomyelitis. COMPARISON: Right foot radiographs of same day. TECHNIQUE: Multiplanar and multisequence MRI of the right foot was obtained without the use of IV contrast. FINDINGS: Type II accessory navicular. There is severe joint space narrowing with prominent subcortical cystic change and edema within the tarsal metatarsal articulations. 5 mm corticated ossification is again noted medial to the first tarsal metatarsal joint suggestive of a fragmented osteophyte versus chronic fracture fragment. No acute fracture, dislocation or osseous erosion to suggest osteomyelitis. The study is motion degraded. There is atrophy of the intrinsic musculature. Diffuse subcutaneous, intramuscular and deep tissue edema of the foot. The visualized ligaments and tendons appear intact. The Lisfranc ligament is intact. IMPRESSION: 1. Motion degraded exam. No acute fracture or evidence of osteomyelitis. 2. 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 3. Diffuse subcutaneous and deep tissue edema suggests cellulitis, venous stasis or lymphedema. 4. Intrinsic atrophy of the musculature with associated edema suggestive of denervation changes. XR foot RT min 3V routine HISTORY: 70 years-old Female Pain swelling acute right foot pain with soft tissue swelling. No reported trauma COMPARISON: None TECHNIQUE: 3 views of the right foot FINDINGS: Demineralized appearance of the bones. A millimeter corticated ossification medial to the first MTP joint may reflect chronic fracture fragment. 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 Moderate sized plantar enthesophyte of the calcaneus. Mild dorsal forefoot soft tissue swelling. No acute fracture or dislocation. IMPRESSION: Soft tissue swelling without acute fracture or dislocation.
[2020-11-18] MEDS: hydrOXYzine HCl 25 MG TAB PO PRN (20:31)
[2020-11-18] MEDS: LIDOCAINE 5% 1 PATCH TD SCH (20:31)
[2020-11-18] MEDS: MONTELUKAST SODIUM 10 MG TABLET PO SCH (20:34)
[2020-11-18] MEDS: MAGNESIUM OXIDE 400 MG TAB PO SCH (20:36)
[2020-11-18] MEDS: ATORVASTATIN 20 MG TAB PO SCH (20:36)
[2020-11-18] MEDS: OMEGA-3 (PURIFIED FISH OIL) 1 GM CAP PO SCH (20:36)
[2020-11-19] MEDS: hydrOXYzine HCl 25 MG TAB PO PRN (04:23)
[2020-11-19] MEDS: oxyCODONE/ACETAMINOPHEN 5mg/325mg TAB PO PRN ×4 (05:14→22:02)
[2020-11-19 06:02] LABS: Hematocrit (blood only) 40.2 % (37-47); Hemoglobin 12.7 g/dL (12.0-16.0); Mean Corpuscular Hgb Conc 31.6 g/dL (32-36); Mean Platelet Volume 10.4 fL (7.4-10.4); Platelet Count 300 K/uL (130-400); RDW Coefficient of Variation 14.6 % (11.5-14.5); RDW Standard Deviation 52.1 fL (36.4-46.3); White Blood Count 7.48 K/uL (4.8-10.8)
[2020-11-19 06:12] LABS: INR 1.7 (0.9-1.1); Prothrombin Time 16.5 Seconds (9.0-12.0)
[2020-11-19] MEDS: LEVOTHYROXINE SODIUM 50 MCG TABLET PO SCH (06:24)
[2020-11-19 06:28] LABS: BUN Creatinine Ratio 32.4 (10-20); C Reactive Protein 3.15 mg/dl (0-0.29); Calcium 10.6 mg/dl (8.5-10.1); Creatinine Clr Calc Pharmacy 88.7 ml/min; Est GFR (African American) 104.8 ml/min; Est GFR (Non-African American) 90.4 ml/min; Magnesium 2.3 mg/dl (1.8-2.4); Phosphorus 3.2 mg/dl (2.5-4.9); Potassium 4.3 mmol/L (3.5-5.1)
[2020-11-19] MEDS: CALCIUM CITRATE 950 MG TAB PO SCH ×2 (07:46→19:51)
[2020-11-19] MEDS: SENNA 8.6 MG TAB PO SCH (07:46)
[2020-11-19] MEDS: ADVANCED PROBIOTIC 1250 MG CAPSULE PO SCH (07:47)
[2020-11-19] MEDS: PANTOprazole 40 MG TAB PO SCH (07:47)
[2020-11-19] MEDS: THIAMINE HCL 100 MG TAB PO SCH ×2 (07:47→19:51)
[2020-11-19] MEDS: CARBIDOPA/LEVODOPA 25/100MG TAB PO SCH ×4 (07:48→19:48)
[2020-11-19] MEDS: METAXALONE 800 MG TABLET PO SCH ×4 (07:48→19:51)
[2020-11-19] MEDS: METOPROLOL TARTRATE 25 MG TAB PO SCH ×2 (07:49→19:48)
[2020-11-19] MEDS: rOPINIRole HCL 1 MG TABLET PO SCH ×4 (07:49→19:47)
[2020-11-19] MEDS: FLUTICASONE PROPIONATE NA SPR 16 GM BTL NAE SCH ×2 (07:50→19:51)
[2020-11-19] MEDS: FLUTICASONE/VILANTEROL 100/25MCG 14 PUFFS/INHALER INH SCH (07:50)
[2020-11-19] MEDS: DICLOFENAC SOD 1% GEL 100 GM TUBE EXT SCH ×4 (07:51→19:50)
[2020-11-19] MEDS: traMADol HCL 50 MG TABLET PO PRN (07:53)
--- NOTE | 2020-11-19 07:59 | Hospitalist Progress Note ---
Date of Service November 19, 2020 Assessment & Plan (1) Cellulitis of right foot: This is a 70yo F with a PMH of Edenilson-Danlos syndrome, intermittent asthma, hypertension, chronic diastolic heart failure, paroxysmal SVT on Coumadin, RLS, anxiety, BRANDIE intolerant to CPAP and other medical problems listed below who presents with R foot pain over the past month. Recent foot XR at [facility] without evidence of fracture XR now showing soft tissue swelling without acute fracture or dislocation Has tried lidocaine to foot in the past but had skin irritation -has been seen multiple times in clinic for foot pain Afebrile, no leukocytosis. ESR elevated at 47. CRP elevated at 2.58 Ordering MRI of foot for better visualization, rule out osteomyelitis - Motion degraded exam. No acute fracture or evidence of osteomyelitis. 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 Diffuse subcutaneous and deep tissue edema suggests cellulitis, venous stasis or lymphedema. Intrinsic atrophy of the musculature with associated edema suggestive of denervation changes. Continue empiric abx with rocephin, vanco. Follow blood cultures Routine orthopedic consult - Severe midfoot arthritis with underlying neuropathy. Patient may weight-bear as tolerated on right lower extremity and supportive, hard soled shoe. Ice and elevation. Will order Lidoderm patch. No further intervention at this time. Would like follow-up with foot and ankle team, [place] [facility] [place], . Patient agreeable to plan and all questions were answered to satisfaction. 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 Continue home dose metoprolol tartrate (7) ISAC (generalized anxiety disorder): Hydroxyzine as needed (8) Restless leg syndrome: Continue Requip (9) Hypothyroidism: Continue levothyroxine (10) Gastroparesis: Continue Linzess, antiemetics as needed, bowel regimen per home med rec (11) Asthma: Continue Singulair, home inhalers (12) Thoracic aortic aneurysm: Follows with Dr. Arredondo (13) Sleep apnea: Intolerant to CPAP DVT Ppx: coumadin Code status: FULL PCP: Jason Dispo: Admitted to [facility]. Discharge planning ordered Admission and Anticipated Discharge Date Admission Date: November 17, 2020 Subjective Patient seen in follow-up of LE cellulitis and pain Patient reports that pain is located at the dorsum of her foot for the most part, and she reports erythema mostly at the dorsum She still has episodes of severe pain, however says that now she is able to stand on the foot somewhat, she could not stand on it at all on admission She reports significant pain in her foot especially with different positioning ESR, CRP elevated MRI foot obtained,does not show osteomyelitis, but shows severe arthritis Orthopedics was consulted for foot pain, recommend following up with foot and ankle specialist, Dr. Carpenter, elevation and ice, supportive shoes Blood cultures pending Patient otherwise denies any fevers, chills, chest pain, shortness of breath, denies any abdominal pain, nausea or vomiting Review of Systems Review of Systems: All systems reviewed & are unremarkable except as noted in HPI & below Constitutional: no fever and no chills Respiratory: no cough and no dyspnea Cardiovascular: no chest pain and no palpitations Gastrointestinal: no abdominal pain, no nausea and no vomiting Physical Exam Physical Exam: General Appearance: WD/WN, obese F, in NAD, sitting up in bed Head: normocephalic, atraumatic Eyes: normal inspection, PERRL, EOMI, conjunctivae normal, anicteric sclerae ENT: external ear and nose normal, oropharynx normal Neck: normal visual inspection, trachea midline, no thyromegaly Respiratory: normal respiratory effort, lungs clear to auscultation, no wheeze, rales, rhonchi. No accessory muscle use Cardiovascular: regular rate, rhythm, no murmur appreciated Chest: normal inspection of chest Abdomen/GI: normal bowel sounds, soft, obese, nontender Extremities/Musculoskeletal: R dorsum of foot with erythema and edema, warm to touch. Not extending to ankle and no streaking. No wounds visualized. TTP. No cyanosis or clubbing, extremities motor strength 5/5 Neurologic: PERRL, EOMI, no face palsy, no dysarthria, CN's II-XI intact bilaterally and moves all extremities Psychiatric: A+Ox3, mildly anxious Skin: no rashes, normal color, warm/dry Results & Data Results & Data ([facility]) Vital Signs (Past 12 Hours) Vital Signs Temp Pulse Pulse Resp BP Pulse Ox 11/19/20 07:10 36.5 C 58 L 18 125/79 99 11/19/20 04:26 36.5 C 61 20 119/73 93 11/18/20 22:20 68 11/18/20 22:00 36.3 C L 69 20 138/92 93 Laboratory Results 11/19/20 11/19/20 11/19/20 Range/Units 05:31 05:31 05:31 WBC (4.8-10.8) K/uL RBC (4.2-5.4) M/uL Hgb (12.0-16.0) g/dL Hct (37-47) % MCV (80-100) fL MCH (25-34) pg MCHC (32-36) g/dL RDW Std Deviation (36.4-46.3) fL RDW Coeff of Neftaly (11.5-14.5) % Plt Count (130-400) K/uL MPV (7.4-10.4) fL ESR 50 H (0-30) mm/hr PT 16.5 H (9.0-12.0) Seconds INR 1.7 H (0.9-1.1) Sodium 138 (136-145) mmol/L Potassium 4.3 (3.5-5.1) mmol/L Chloride 106 (98-107) mmol/L Carbon Dioxide 26 (21-32) mmol/L Anion Gap 7.0 (3-11) BUN 21 H (7-18) mg/dl Creatinine 0.64 (0.6-1.2) mg/dl Est Cr Clr Drug Dosing 88.7 ml/min Est GFR ( Amer) 104.8 ml/min Est GFR (Non-Af Amer) 90.4 ml/min BUN/Creatinine Ratio 32.4 H (10-20) Glucose 114 H (70-99) mg/dl Calcium 10.6 H (8.5-10.1) mg/dl Phosphorus 3.2 (2.5-4.9) mg/dl Magnesium 2.3 (1.8-2.4) mg/dl C-Reactive Protein 3.15 H (0-0.29) mg/dl Vancomycin Trough (See Comment) mcg/ml 11/19/20 11/18/20 Range/Units 05:31 15:27 WBC 7.48 (4.8-10.8) K/uL RBC 4.10 L (4.2-5.4) M/uL Hgb 12.7 (12.0-16.0) g/dL Hct 40.2 (37-47) % MCV 98.0 (80-100) fL MCH 31.0 (25-34) pg MCHC 31.6 L (32-36) g/dL RDW Std Deviation 52.1 H (36.4-46.3) fL RDW Coeff of Neftaly 14.6 H (11.5-14.5) % Plt Count 300 (130-400) K/uL MPV 10.4 (7.4-10.4) fL ESR (0-30) mm/hr PT (9.0-12.0) Seconds INR (0.9-1.1) Sodium (136-145) mmol/L Potassium (3.5-5.1) mmol/L Chloride (98-107) mmol/L Carbon Dioxide (21-32) mmol/L Anion Gap (3-11) BUN (7-18) mg/dl Creatinine (0.6-1.2) mg/dl Est Cr Clr Drug Dosing ml/min Est GFR ( Amer) ml/min Est GFR (Non-Af Amer) ml/min BUN/Creatinine Ratio (10-20) Glucose (70-99) mg/dl Calcium (8.5-10.1) mg/dl Phosphorus (2.5-4.9) mg/dl Magnesium (1.8-2.4) mg/dl C-Reactive Protein (0-0.29) mg/dl Vancomycin Trough 24.7 (See Comment) mcg/ml Medications Administered Current Inpatient Medications Acetaminophen (Acetaminophen 325 Mg Tab) 650 mg PO Q4H PRN PRN Reason: Pain or Fever Stop: 12/17/20 13:57 Last Admin: 11/18/20 11:08 Dose: 650 mg Documented by: Albuterol (Albuterol Hfa 8 Gm Inhaler) 2 puffs INH QID PRN PRN Reason: Shortness Of Breath Stop: 12/17/20 13:57 Albuterol (Albut/Ipratrop 3mg/0.5mg Neb 3 Ml Vial) 3 ml INH QIDR PRN PRN Reason: Shortness Of Breath Or Wheezing Stop: 12/17/20 14:59 Atorvastatin Calcium (Atorvastatin 20 Mg Tab) 20 mg PO HS ASHUTOSH Stop: 12/17/20 20:59 Last Admin: 11/18/20 20:36 Dose: 20 mg Documented by: Calcium Citrate (Calcium Citrate 950 Mg Tab) 950 mg PO BID ASHUTOSH Stop: 12/17/20 20:59 Last Admin: 11/19/20 07:46 Dose: 950 mg Documented by: Carbidopa/Levodopa (Carbidopa/Levodopa 25/100mg Tab) 1 tab PO QID ASHUTOSH Stop: 12/17/20 16:59 Last Admin: 11/19/20 07:48 Dose: 1 tab Documented by: Diclofenac Sodium (Diclofenac Sod 1% Gel 100 Gm Tube) 2 gm EXT QID ASHUTOSH Stop: 12/17/20 16:59 Last Admin: 11/19/20 07:51 Dose: 2 gm Documented by: Docusate Sodium (Docusate Sodium 100 Mg Cap) 100 mg PO BID PRN PRN Reason: Constipation Stop: 12/17/20 15:15 Ergocalciferol (Ergocalciferol 50,000 Units 1250 Mcg Cap) 50,000 units PO Th@0900 [facility] Stop: 12/24/20 08:59 Fish Oil ([place]-3 (Purified Fish Oil) 1 Gm Cap) 1 gm PO HS ASHUTOSH Stop: 12/17/20 20:59 Last Admin: 11/18/20 20:36 Dose: 1 gm Documented by: Fluticasone Propionate (Fluticasone Propionate Na Spr 16 Gm Btl) 2 sprays ELYSE BID ASHUTOSH Stop: 12/17/20 20:59 Last Admin: 11/19/20 07:50 Dose: 2 sprays Documented by: Fluticasone/Vilanterol (Fluticasone/Vilanterol 100/25mcg 14 Puffs/Inhaler) 1 puffs INH DAILY [facility] Stop: 12/18/20 08:59 Last Admin: 11/19/20 07:50 Dose: 1 puffs Documented by: Hydroxyzine HCl (Hydroxyzine Hcl 25 Mg Tab) 25 mg PO Q6H PRN PRN Reason: Anxiety Stop: 12/17/20 13:57 Last Admin: 11/19/20 04:23 Dose: 25 mg Documented by: Ceftriaxone Sodium 2,000 mg/ (Dextrose) 70 mls @ 140 mls/hr IV Q24H ASHUTOSH Stop: 11/24/20 11:59 Last Infusion: 11/18/20 13:05 Dose: Infused Documented by: Vancomycin HCl 1,000 mg/ (Sodium Chloride) 270 mls @ 200 mls/hr IV Q12H ASHUTOSH Stop: 11/26/20 00:00 Last Infusion: 11/19/20 02:21 Dose: Infused Documented by: Ipratropium [place] (Ipratropium [place] Nasal [place] 0.06% 15ml) 1 sprays ELYSE QID PRN PRN Reason: CONGESTION Stop: 12/17/20 15:16 Lactobacillus Acidoph/Casei/Rhamnos (Advanced Probiotic 1250 Mg Capsule) 2 cap PO DAILY ASHUTOSH Stop: 12/18/20 17:14 Last Admin: 11/19/20 07:47 Dose: 2 cap Documented by: Levothyroxine Sodium (Levothyroxine Sodium 50 Mcg Tablet) 50 mcg PO DAILYBB [facility] Stop: 12/18/20 06:29 Last Admin: 11/19/20 06:24 Dose: 50 mcg Documented by: Lidocaine (Lidocaine 5% 1 Patch) 1 patch TD DAILY@1830 [facility] Stop: 12/18/20 18:29 Last Admin: 11/18/20 20:31 Dose: 1 patch Documented by: Linaclotide (Linaclotide 145 Mcg Capsule) 290 mcg PO DAILY@1500 [facility] Stop: 12/17/20 14:59 Last Admin: 11/18/20 16:08 Dose: 290 mcg Documented by: Magnesium Oxide (Magnesium Oxide 400 Mg Tab) 400 mg PO HS [facility] Stop: 12/17/20 20:59 Last Admin: 11/18/20 20:36 Dose: 400 mg Documented by: Metaxalone (Metaxalone 800 Mg Tablet) 800 mg PO QID ASHUTOSH Stop: 12/17/20 16:59 Last Admin: 11/19/20 07:48 Dose: 800 mg Documented by: Metoprolol Tartrate (Metoprolol Tartrate 25 Mg Tab) 12.5 mg PO HS ASHUTOSH Stop: 12/17/20 20:59 Last Admin: 11/18/20 20:35 Dose: 12.5 mg Documented by: Metoprolol Tartrate (Metoprolol Tartrate 25 Mg Tab) 25 mg PO DAILY [facility] Stop: 12/18/20 08:59 Last Admin: 11/19/20 07:49 Dose: 25 mg Documented by: Miscellaneous (Remove Lidoderm Patch) 1 ea N/A DAILY@0630 [facility] Stop: 12/19/20 06:29 Last Admin: 11/19/20 05:15 Dose: 1 ea Documented by: Miscellaneous Information (Vancomycin Consult Active) 1 ea N/A UD PRN PRN Reason: Consult Stop: 12/17/20 14:29 Miscellaneous Information (Ceftriaxone - Pharmacy Consult In Progress) 1 ea N/A UD PRN PRN Reason: Consult Stop: 12/17/20 14:30 Montelukast Sodium (Montelukast Sodium 10 Mg Tablet) 10 mg PO [facility] Stop: 12/17/20 20:59 Last Admin: 11/18/20 20:34 Dose: 10 mg Documented by: Multivitamins/Minerals (Cerovite Adv Formula Tab) 1 tab PO DAILY@1200 [facility] Stop: 12/18/20 11:59 Last Admin: 11/18/20 11:09 Dose: 1 tab Documented by: Ondansetron HCl (Ondansetron Inj 2 Mg/Ml 2 Ml Vial) 4 mg IV Q6H PRN PRN Reason: Nausea Stop: 12/17/20 13:57 Oxycodone/Acetaminophen (Oxycodone/Acetaminophen 5mg/325mg Tab) 1 tab PO Q4H PRN PRN Reason: Pain Stop: 12/01/20 13:57 Last Admin: 11/19/20 05:14 Dose: 1 tab Documented by: Pantoprazole Sodium (Pantoprazole 40 Mg Tab) 40 mg PO [facility] Stop: 12/18/20 08:59 Last Admin: 11/19/20 07:47 Dose: 40 mg Documented by: Polyethylene Glycol (Polyethylene (Miralax) 17 Gm Pack) 17 gm PO DAILY PRN PRN Reason: Constipation Stop: 12/17/20 13:57 Last Admin: 11/18/20 23:40 Dose: 17 gm Documented by: Ropinirole HCl (Ropinirole Hcl 1 Mg Tablet) 2 mg PO TID@0730,1200,1800 [facility] Stop: 12/17/20 19:14 Last Admin: 11/19/20 07:49 Dose: 2 mg Documented by: Ropinirole HCl (Ropinirole Hcl 1 Mg Tablet) 4 mg PO HS [facility] Stop: 12/17/20 21:59 Last Admin: 11/18/20 20:33 Dose: 4 mg Documented by: Senna/Docusate Sodium (Docusate Sodium/Senna 50/8.6mg Tab) 1 tab PO BID PRN PRN Reason: Constipation Stop: 12/17/20 13:57 Sennosides (Senna 8.6 Mg Tab) 8.6 mg PO QAM [facility] Stop: 12/18/20 09:29 Last Admin: 11/19/20 07:46 Dose: 8.6 mg Documented by: Thiamine HCl (Thiamine Hcl 100 Mg Tab) 100 mg PO BID [facility] Stop: 12/17/20 20:59 Last Admin: 11/19/20 07:47 Dose: 100 mg Documented by: Tramadol HCl (Tramadol Hcl 50 Mg Tablet) 50 mg PO Q8H PRN PRN Reason: Pain Stop: 12/17/20 13:57 Last Admin: 11/19/20 07:53 Dose: 50 mg Documented by: Trazodone HCl (Trazodone Hcl 50 Mg Tab) 25 mg PO HS PRN PRN Reason: Insomnia Stop: 12/17/20 13:57 Warfarin Sodium (Warfarin Sod 5 Mg Tab) 5 mg PO TUSA@1600 [facility] Stop: 12/19/20 15:59 Warfarin Sodium (Warfarin Sod 2.5 Mg Tab) 2.5 mg PO SUMOWETHFR@1600 [facility] Stop: 12/17/20 15:59 (1) Thoracic aortic aneurysm Presence of rupture: without rupture Qualified Code(s): I71.2 - Thoracic aortic aneurysm, without rupture
[2020-11-19] MEDS: cefTRIAXone SODIUM 2,000 MG in DEXTROSE 5% 50 ML IV SCH (11:35)
[2020-11-19] MEDS: CEROVITE ADV FORMULA TAB PO SCH (12:15)
[2020-11-19] MEDS: VANCOMYCIN HCL 1,000 MG in SODIUM CHLORIDE 0.9% 250 ML IV SCH ×2 (12:54→22:58)
[2020-11-19] MEDS: LINACLOTIDE 145 MCG CAPSULE PO SCH (15:46)
[2020-11-19] MEDS ORDERED: WARFARIN SOD 5 MG TAB PO SCH (16:00)
[2020-11-19] MEDS: LIDOCAINE 5% 1 PATCH TD SCH (18:25)
[2020-11-19] MEDS: MAGNESIUM OXIDE 400 MG TAB PO SCH (19:50)
[2020-11-19] MEDS: ATORVASTATIN 20 MG TAB PO SCH (19:50)
[2020-11-19] MEDS: MONTELUKAST SODIUM 10 MG TABLET PO SCH (19:50)
[2020-11-19] MEDS: OMEGA-3 (PURIFIED FISH OIL) 1 GM CAP PO SCH (19:51)
[2020-11-20] MEDS: traMADol HCL 50 MG TABLET PO PRN (01:10)
[2020-11-20] MEDS: oxyCODONE/ACETAMINOPHEN 5mg/325mg TAB PO PRN ×3 (02:55→20:20)
[2020-11-20] MEDS: LEVOTHYROXINE SODIUM 50 MCG TABLET PO SCH (05:54)
[2020-11-20] MEDS ORDERED: LIDOCAINE 2% JELLY 5 ML TUBE EXT PRN (07:18)
[2020-11-20 07:36] LABS: Hematocrit (blood only) 38.7 % (37-47); Hemoglobin 12.3 g/dL (12.0-16.0); Mean Corpuscular Hemoglobin 31.9 pg (25-34); Mean Corpuscular Hgb Conc 31.8 g/dL (32-36); Mean Corpuscular Volume 100.3 fL (80-100); Platelet Count 291 K/uL (130-400); RDW Coefficient of Variation 14.5 % (11.5-14.5); RDW Standard Deviation 53.2 fL (36.4-46.3); Red Blood Count 3.86 M/uL (4.2-5.4); White Blood Count 6.65 K/uL (4.8-10.8)
[2020-11-20 07:53] LABS: BUN Creatinine Ratio 36.1 (10-20); Calcium 9.7 mg/dl (8.5-10.1); Creatinine Clr Calc Pharmacy 79.8 ml/min; Est GFR (African American) 102.2 ml/min; Est GFR (Non-African American) 88.2 ml/min; Magnesium 2.2 mg/dl (1.8-2.4); Phosphorus 3.7 mg/dl (2.5-4.9)
[2020-11-20] MEDS: FLUTICASONE PROPIONATE NA SPR 16 GM BTL NAE SCH ×2 (08:17→22:21)
[2020-11-20] MEDS: FLUTICASONE/VILANTEROL 100/25MCG 14 PUFFS/INHALER INH SCH (08:17)
[2020-11-20] MEDS: METAXALONE 800 MG TABLET PO SCH ×4 (08:20→22:20)
[2020-11-20] MEDS: CALCIUM CITRATE 950 MG TAB PO SCH ×2 (08:20→22:18)
[2020-11-20] MEDS: THIAMINE HCL 100 MG TAB PO SCH ×2 (08:21→22:19)
[2020-11-20] MEDS: ADVANCED PROBIOTIC 1250 MG CAPSULE PO SCH (08:21)
[2020-11-20] MEDS: PANTOprazole 40 MG TAB PO SCH (08:22)
[2020-11-20] MEDS: SENNA 8.6 MG TAB PO SCH (08:22)
[2020-11-20] MEDS: rOPINIRole HCL 1 MG TABLET PO SCH ×4 (08:22→22:16)
[2020-11-20] MEDS: CARBIDOPA/LEVODOPA 25/100MG TAB PO SCH ×4 (08:22→22:20)
[2020-11-20] MEDS: DICLOFENAC SOD 1% GEL 100 GM TUBE EXT SCH ×4 (08:24→22:16)
[2020-11-20] MEDS: METOPROLOL TARTRATE 25 MG TAB PO SCH ×2 (08:28→22:17)
[2020-11-20] MEDS: cefTRIAXone SODIUM 2,000 MG in DEXTROSE 5% 50 ML IV SCH (11:16)
--- NOTE | 2020-11-20 11:29 | Hospitalist Progress Note ---
Date of Service November 20, 2020 Assessment & Plan (1) Cellulitis of right foot: This is a 70yo F with a PMH of Edenilson-Danlos syndrome, intermittent asthma, hypertension, chronic diastolic heart failure, paroxysmal SVT on Coumadin, RLS, anxiety, BRANDIE intolerant to CPAP and other medical problems listed below who presents with R foot pain over the past month. Recent foot XR at [facility] without evidence of fracture XR now showing soft tissue swelling without acute fracture or dislocation Has tried lidocaine to foot in the past but had skin irritation -has been seen multiple times in clinic for foot pain Afebrile, no leukocytosis. ESR elevated at 47. CRP elevated at 2.58 Ordering MRI of foot for better visualization, rule out osteomyelitis - Motion degraded exam. No acute fracture or evidence of osteomyelitis. 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 Diffuse subcutaneous and deep tissue edema suggests cellulitis, venous stasis or lymphedema. Intrinsic atrophy of the musculature with associated edema suggestive of denervation changes. Continue empiric abx with rocephin, vanco. Follow blood cultures Routine orthopedic consult - Severe midfoot arthritis with underlying neuropathy. Patient may weight-bear as tolerated on right lower extremity and supportive, hard soled shoe. Ice and elevation. Will order Lidoderm patch. No further intervention at this time. Would like follow-up with foot and ankle team, Dr. Carpenter at [facility] upon discharge, . Patient agreeable to plan and all questions were answered to satisfaction. 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 Continue home dose metoprolol tartrate (7) ISAC (generalized anxiety disorder): Hydroxyzine as needed (8) Restless leg syndrome: Continue Requip (9) Hypothyroidism: Continue levothyroxine (10) Gastroparesis: Continue Linzess, antiemetics as needed, bowel regimen per home med rec (11) Asthma: Continue Singulair, home inhalers (12) Thoracic aortic aneurysm: Follows with Dr. Arredondo (13) Sleep apnea: Intolerant to CPAP DVT Ppx: coumadin Code status: FULL PCP: Jason Dispo: Admitted to [facility]. Discharge planning ordered Admission and Anticipated Discharge Date Admission Date: November 17, 2020 Subjective Patient seen in follow-up of LE cellulitis and pain Patient reports that pain is located at the dorsum of her foot for the most part, and she reports erythema mostly at the dorsum She still has episodes of severe pain, however says that now she is able to stand on the foot somewhat, she could not stand on it at all on admission She reports significant pain in her foot especially with different positioning ESR, CRP elevated MRI foot obtained,does not show osteomyelitis, but shows severe arthritis Orthopedics was consulted for foot pain, recommend following up with foot and ankle specialist, Dr. Carpenter, elevation and ice, supportive shoes Blood cultures pending Patient otherwise denies any fevers, chills, chest pain, shortness of breath, denies any abdominal pain, nausea or vomiting Review of Systems Review of Systems: All systems reviewed & are unremarkable except as noted in HPI & below Constitutional: no fever and no chills Respiratory: no cough and no dyspnea Cardiovascular: no chest pain and no palpitations Gastrointestinal: no abdominal pain, no nausea and no vomiting Physical Exam Physical Exam: General Appearance: WD/WN, obese F, in NAD, sitting up in bed Head: normocephalic, atraumatic Eyes: normal inspection, PERRL, EOMI, conjunctivae normal, anicteric sclerae ENT: external ear and nose normal, oropharynx normal Neck: normal visual inspection, trachea midline, no thyromegaly Respiratory: normal respiratory effort, lungs clear to auscultation, no wheeze, rales, rhonchi. No accessory muscle use Cardiovascular: regular rate, rhythm, no murmur appreciated Chest: normal inspection of chest Abdomen/GI: normal bowel sounds, soft, obese, nontender Extremities/Musculoskeletal: R dorsum of foot with mild erythema and edema, mildly warm to touch (improved). Not extending to ankle and no streaking. moves extremities spontaneously. Neurologic: PERRL, EOMI, no face palsy, no dysarthria, moves all extremities Psychiatric: A+Ox3, mildly anxious Skin: no rashes, normal color, warm/dry Results & Data Results & Data ([facility]) Vital Signs (Past 12 Hours) Vital Signs Temp Pulse Pulse Resp BP Pulse Ox 11/20/20 09:21 77 18 97 11/20/20 07:27 36.5 C 63 18 149/81 H 96 11/20/20 07:09 61 11/20/20 03:00 36.6 C 61 20 116/75 92 Laboratory Results 11/20/20 11/20/20 Range/Units 07:23 07:23 WBC 6.65 (4.8-10.8) K/uL RBC 3.86 L (4.2-5.4) M/uL Hgb 12.3 (12.0-16.0) g/dL Hct 38.7 (37-47) % MCV 100.3 H (80-100) fL MCH 31.9 (25-34) pg MCHC 31.8 L (32-36) g/dL RDW Std Deviation 53.2 H (36.4-46.3) fL RDW Coeff of Neftaly 14.5 (11.5-14.5) % Plt Count 291 (130-400) K/uL MPV 10.0 (7.4-10.4) fL Sodium 139 (136-145) mmol/L Potassium 4.0 (3.5-5.1) mmol/L Chloride 105 (98-107) mmol/L Carbon Dioxide 31 (21-32) mmol/L Anion Gap 3.0 (3-11) BUN 25 H (7-18) mg/dl Creatinine 0.69 (0.6-1.2) mg/dl Est Cr Clr Drug Dosing 79.8 ml/min Est GFR ( Amer) 102.2 ml/min Est GFR (Non-Af Amer) 88.2 ml/min BUN/Creatinine Ratio 36.1 H (10-20) Glucose 97 (70-99) mg/dl Calcium 9.7 (8.5-10.1) mg/dl Phosphorus 3.7 (2.5-4.9) mg/dl Magnesium 2.2 (1.8-2.4) mg/dl Medications Administered Current Inpatient Medications Acetaminophen (Acetaminophen 325 Mg Tab) 650 mg PO Q4H PRN PRN Reason: Pain or Fever Stop: 12/17/20 13:57 Last Admin: 11/18/20 11:08 Dose: 650 mg Documented by: Albuterol (Albuterol Hfa 8 Gm Inhaler) 2 puffs INH QID PRN PRN Reason: Shortness Of Breath Stop: 12/17/20 13:57 Albuterol (Albut/Ipratrop 3mg/0.5mg Neb 3 Ml Vial) 3 ml INH QIDR PRN PRN Reason: Shortness Of Breath Or Wheezing Stop: 12/17/20 14:59 Last Admin: 11/20/20 09:21 Dose: 3 ml Documented by: Atorvastatin Calcium (Atorvastatin 20 Mg Tab) 20 mg PO HS [facility] Stop: 12/17/20 20:59 Last Admin: 11/19/20 19:50 Dose: 20 mg Documented by: Calcium Citrate (Calcium Citrate 950 Mg Tab) 950 mg PO BID [facility] Stop: 12/17/20 20:59 Last Admin: 11/20/20 08:20 Dose: 950 mg Documented by: Carbidopa/Levodopa (Carbidopa/Levodopa 25/100mg Tab) 1 tab PO QID [facility] Stop: 12/17/20 16:59 Last Admin: 11/20/20 08:22 Dose: 1 tab Documented by: Diclofenac Sodium (Diclofenac Sod 1% Gel 100 Gm Tube) 2 gm EXT QID [facility] Stop: 12/17/20 16:59 Last Admin: 11/20/20 08:24 Dose: 2 gm Documented by: Docusate Sodium (Docusate Sodium 100 Mg Cap) 100 mg PO BID PRN PRN Reason: Constipation Stop: 12/17/20 15:15 Ergocalciferol (Ergocalciferol 50,000 Units 1250 Mcg Cap) 50,000 units PO Th@0900 [facility] Stop: 12/24/20 08:59 Fish Oil ([place]-3 (Purified Fish Oil) 1 Gm Cap) 1 gm PO HS [facility] Stop: 12/17/20 20:59 Last Admin: 11/19/20 19:51 Dose: 1 gm Documented by: Fluticasone Propionate (Fluticasone Propionate Na Spr 16 Gm Btl) 2 sprays ELYSE BID [facility] Stop: 12/17/20 20:59 Last Admin: 11/20/20 08:17 Dose: 2 sprays Documented by: Fluticasone/Vilanterol (Fluticasone/Vilanterol 100/25mcg 14 Puffs/Inhaler) 1 puffs INH DAILY [facility] Stop: 12/18/20 08:59 Last Admin: 11/20/20 08:17 Dose: 1 puffs Documented by: Hydroxyzine HCl (Hydroxyzine Hcl 25 Mg Tab) 25 mg PO Q6H PRN PRN Reason: Anxiety Stop: 12/17/20 13:57 Last Admin: 11/19/20 04:23 Dose: 25 mg Documented by: Ceftriaxone Sodium 2,000 mg/ (Dextrose) 70 mls @ 70 mls/hr IV Q24H [facility] Stop: 11/24/20 11:59 Last Admin: 11/20/20 11:16 Dose: 70 mls/hr Documented by: Vancomycin HCl 1,000 mg/ (Sodium Chloride) 270 mls @ 200 mls/hr IV Q12H [facility] Stop: 11/26/20 00:00 Last Infusion: 11/20/20 00:28 Dose: Infused Documented by: Ipratropium Stephenson (Ipratropium Stephenson Nasal [place] 0.06% 15ml) 1 sprays ELYSE QID PRN PRN Reason: CONGESTION Stop: 12/17/20 15:16 Lactobacillus Acidoph/Casei/Rhamnos (Advanced Probiotic 1250 Mg Capsule) 2 cap PO DAILY [facility] Stop: 12/18/20 17:14 Last Admin: 11/20/20 08:21 Dose: 2 cap Documented by: Levothyroxine Sodium (Levothyroxine Sodium 50 Mcg Tablet) 50 mcg PO DAILYBB [facility] Stop: 12/18/20 06:29 Last Admin: 11/20/20 05:54 Dose: 50 mcg Documented by: Lidocaine (Lidocaine 5% 1 Patch) 1 patch TD DAILY@1830 [facility] Stop: 12/18/20 18:29 Last Admin: 11/19/20 18:25 Dose: 1 patch Documented by: Lidocaine HCl (Lidocaine 2% Jelly 5 Ml Tube) 5 ml EXT BID PRN PRN Reason: pain Stop: 12/20/20 08:59 Linaclotide (Linaclotide 145 Mcg Capsule) 290 mcg PO DAILY@1500 [facility] Stop: 12/17/20 14:59 Last Admin: 11/19/20 15:46 Dose: 290 mcg Documented by: Magnesium Oxide (Magnesium Oxide 400 Mg Tab) 400 mg PO HS [facility] Stop: 12/17/20 20:59 Last Admin: 11/19/20 19:50 Dose: 400 mg Documented by: Metaxalone (Metaxalone 800 Mg Tablet) 800 mg PO QID [facility] Stop: 12/17/20 16:59 Last Admin: 11/20/20 08:20 Dose: 800 mg Documented by: Metoprolol Tartrate (Metoprolol Tartrate 25 Mg Tab) 12.5 mg PO [facility] Stop: 12/17/20 20:59 Last Admin: 11/19/20 19:48 Dose: 12.5 mg Documented by: Metoprolol Tartrate (Metoprolol Tartrate 25 Mg Tab) 25 mg PO DAILY [facility] Stop: 12/18/20 08:59 Last Admin: 11/20/20 08:28 Dose: 25 mg Documented by: Miscellaneous (Remove Lidoderm Patch) 1 ea N/A DAILY@0630 [facility] Stop: 12/19/20 06:29 Last Admin: 11/20/20 05:59 Dose: 1 ea Documented by: Miscellaneous Information (Vancomycin Consult Active) 1 ea N/A UD PRN PRN Reason: Consult Stop: 12/17/20 14:29 Miscellaneous Information (Ceftriaxone - Pharmacy Consult In Progress) 1 ea N/A UD PRN PRN Reason: Consult Stop: 12/17/20 14:30 Montelukast Sodium (Montelukast Sodium 10 Mg Tablet) 10 mg PO [facility] Stop: 12/17/20 20:59 Last Admin: 11/19/20 19:50 Dose: 10 mg Documented by: Multivitamins/Minerals (Cerovite Adv Formula Tab) 1 tab PO DAILY@1200 [facility] Stop: 12/18/20 11:59 Last Admin: 11/19/20 12:15 Dose: 1 tab Documented by: Ondansetron HCl (Ondansetron Inj 2 Mg/Ml 2 Ml Vial) 4 mg IV Q6H PRN PRN Reason: Nausea Stop: 12/17/20 13:57 Oxycodone/Acetaminophen (Oxycodone/Acetaminophen 5mg/325mg Tab) 1 tab PO Q4H PRN PRN Reason: Pain Stop: 12/01/20 13:57 Last Admin: 11/20/20 08:38 Dose: 1 tab Documented by: Pantoprazole Sodium (Pantoprazole 40 Mg Tab) 40 mg PO QAM [facility] Stop: 12/18/20 08:59 Last Admin: 11/20/20 08:22 Dose: 40 mg Documented by: Polyethylene Glycol (Polyethylene (Miralax) 17 Gm Pack) 17 gm PO DAILY PRN PRN Reason: Constipation Stop: 12/17/20 13:57 Last Admin: 11/18/20 23:40 Dose: 17 gm Documented by: Ropinirole HCl (Ropinirole Hcl 1 Mg Tablet) 2 mg PO TID@0730,1200,1800 [facility] Stop: 12/17/20 19:14 Last Admin: 11/20/20 08:22 Dose: 2 mg Documented by: Ropinirole HCl (Ropinirole Hcl 1 Mg Tablet) 4 mg PO HS [facility] Stop: 12/17/20 21:59 Last Admin: 11/19/20 19:47 Dose: 4 mg Documented by: Senna/Docusate Sodium (Docusate Sodium/Senna 50/8.6mg Tab) 1 tab PO BID PRN PRN Reason: Constipation Stop: 12/17/20 13:57 Sennosides (Senna 8.6 Mg Tab) 8.6 mg PO QAM [facility] Stop: 12/18/20 09:29 Last Admin: 11/20/20 08:22 Dose: 8.6 mg Documented by: Thiamine HCl (Thiamine Hcl 100 Mg Tab) 100 mg PO BID [facility] Stop: 12/17/20 20:59 Last Admin: 11/20/20 08:21 Dose: 100 mg Documented by: Tramadol HCl (Tramadol Hcl 50 Mg Tablet) 50 mg PO Q8H PRN PRN Reason: Pain Stop: 12/17/20 13:57 Last Admin: 11/20/20 01:10 Dose: 50 mg Documented by: Trazodone HCl (Trazodone Hcl 50 Mg Tab) 25 mg PO HS PRN PRN Reason: Insomnia Stop: 12/17/20 13:57 Warfarin Sodium (Warfarin Sod 5 Mg Tab) 5 mg PO TUSA@1600 [facility] Stop: 12/19/20 15:59 Last Admin: 11/19/20 15:45 Dose: 5 mg Documented by: Warfarin Sodium (Warfarin Sod 2.5 Mg Tab) 2.5 mg PO SUMOWETHFR@1600 [facility] Stop: 12/17/20 15:59 (1) Thoracic aortic aneurysm Presence of rupture: without rupture Qualified Code(s): I71.2 - Thoracic aortic aneurysm, without rupture
[2020-11-20] MEDS ORDERED: VANCOMYCIN TROUGH ONE (11:30)
[2020-11-20] MEDS: CEROVITE ADV FORMULA TAB PO SCH (15:14)
[2020-11-20] MEDS: LINACLOTIDE 145 MCG CAPSULE PO SCH (15:15)
[2020-11-20] MEDS: VANCOMYCIN HCL 1,000 MG in SODIUM CHLORIDE 0.9% 250 ML IV SCH (16:05)
[2020-11-20] MEDS ORDERED: hydrOXYzine HCl 25 MG TAB PO STA (16:15)
[2020-11-20] MEDS ORDERED: predniSONE 20 MG TAB PO STA (16:26)
[2020-11-20] MEDS ORDERED: FAMOTIDINE 20 MG in SYRINGE 3 ML IV ONE (16:30)
[2020-11-20] MEDS ORDERED: HEPARIN SOD 5,000 UNIT/0.5 ML VIAL SQ STA (16:30)
[2020-11-20] MEDS: WARFARIN SOD 2.5 MG TAB PO SCH (17:13)
[2020-11-20] MEDS: LIDOCAINE 5% 1 PATCH TD SCH (18:07)
--- NOTE | 2020-11-20 18:57 | Electrocardiogram Report ---
Test Reason : Blood Pressure : / mmHG Vent. Rate : 073 BPM Atrial Rate : 073 BPM P-R Int : 174 ms QRS Dur : 104 ms QT Int : 378 ms P-R-T Axes : 052 -01 024 degrees QTc Int : 416 ms Normal sinus rhythm Incomplete right bundle branch block When compared with ECG of 17-NOV-2020 10:39, No significant change was found Confirmed by Aman Sullivan ([id number]) on 11/20/2020 6:56:59 PM Referred By: REFERRED SELF Confirmed By:Nicanor Sullivan
[2020-11-20] MEDS: DAPTOmycin 275 MG in SYRINGE 0 ML IV SCH (20:05)
[2020-11-20] MEDS: OMEGA-3 (PURIFIED FISH OIL) 1 GM CAP PO SCH (22:17)
[2020-11-20] MEDS: HEPARIN SOD 5,000 UNIT/0.5 ML VIAL SQ SCH (22:19)
[2020-11-20] MEDS: MONTELUKAST SODIUM 10 MG TABLET PO SCH (22:20)
[2020-11-21] MEDS: MAGNESIUM OXIDE 400 MG TAB PO SCH ×2 (00:01→20:19)
[2020-11-21] MEDS: HEPARIN SOD 5,000 UNIT/0.5 ML VIAL SQ SCH ×3 (05:48→21:00)
[2020-11-21] MEDS: LEVOTHYROXINE SODIUM 50 MCG TABLET PO SCH (05:48)
[2020-11-21 07:32] LABS: Hematocrit (blood only) 43.1 % (37-47); Hemoglobin 13.6 g/dL (12.0-16.0); Mean Corpuscular Hemoglobin 31.8 pg (25-34); Mean Corpuscular Hgb Conc 31.6 g/dL (32-36); Mean Corpuscular Volume 100.7 fL (80-100); Platelet Count 365 K/uL (130-400); RDW Coefficient of Variation 14.6 % (11.5-14.5); Red Blood Count 4.28 M/uL (4.2-5.4); White Blood Count 7.62 K/uL (4.8-10.8)
[2020-11-21] MEDS: rOPINIRole HCL 1 MG TABLET PO SCH ×4 (07:36→20:19)
[2020-11-21] MEDS: ADVANCED PROBIOTIC 1250 MG CAPSULE PO SCH (07:37)
[2020-11-21] MEDS: PANTOprazole 40 MG TAB PO SCH (07:37)
[2020-11-21] MEDS: SENNA 8.6 MG TAB PO SCH (07:37)
[2020-11-21] MEDS: METAXALONE 800 MG TABLET PO SCH ×4 (07:37→20:19)
[2020-11-21] MEDS: METOPROLOL TARTRATE 25 MG TAB PO SCH ×2 (07:38→20:19)
[2020-11-21] MEDS: CARBIDOPA/LEVODOPA 25/100MG TAB PO SCH ×4 (07:38→20:19)
[2020-11-21] MEDS: CALCIUM CITRATE 950 MG TAB PO SCH ×2 (07:38→20:19)
[2020-11-21] MEDS: FLUTICASONE PROPIONATE NA SPR 16 GM BTL NAE SCH ×2 (07:39→20:19)
[2020-11-21] MEDS: DICLOFENAC SOD 1% GEL 100 GM TUBE EXT SCH ×4 (07:39→20:19)
[2020-11-21] MEDS: THIAMINE HCL 100 MG TAB PO SCH ×2 (07:39→20:18)
[2020-11-21] MEDS: FLUTICASONE/VILANTEROL 100/25MCG 14 PUFFS/INHALER INH SCH (07:39)
[2020-11-21 07:41] LABS: INR 1.8 (0.9-1.1); Prothrombin Time 17.8 Seconds (9.0-12.0)
[2020-11-21] MEDS: oxyCODONE/ACETAMINOPHEN 5mg/325mg TAB PO PRN ×3 (07:42→20:18)
[2020-11-21 08:06] LABS: BUN Creatinine Ratio 32.7 (10-20); Calcium 10.7 mg/dl (8.5-10.1); Creatinine Clr Calc Pharmacy 66.9 ml/min; Est GFR (African American) 82.8 ml/min; Est GFR (Non-African American) 71.4 ml/min
[2020-11-21] MEDS ORDERED: POLYETHYLENE (MIRALAX) 17 GM PACK PO ONE (11:30)
[2020-11-21] MEDS: CEROVITE ADV FORMULA TAB PO SCH (12:13)
[2020-11-21] MEDS: cefTRIAXone SODIUM 2,000 MG in DEXTROSE 5% 50 ML IV SCH (12:17)
[2020-11-21] MEDS ORDERED: PERFLUTREN LIPID MICROSPHERE (DEFINITY) IV ONE (13:47)
--- NOTE | 2020-11-21 13:59 | Hospitalist Progress Note ---
Date of Service November 21, 2020 Assessment & Plan (1) Cellulitis of right foot: This is a 70yo F with a PMH of Edenilson-Danlos syndrome, intermittent asthma, hypertension, chronic diastolic heart failure, paroxysmal SVT on Coumadin, RLS, anxiety, BRANDIE intolerant to CPAP and other medical problems listed below who presents with R foot pain over the past month. Recent foot XR at [facility] without evidence of fracture XR now showing soft tissue swelling without acute fracture or dislocation Has tried lidocaine to foot in the past but had skin irritation -has been seen multiple times in clinic for foot pain Afebrile, no leukocytosis. ESR elevated at 47. CRP elevated at 2.58 Ordering MRI of foot for better visualization, rule out osteomyelitis - Motion degraded exam. No acute fracture or evidence of osteomyelitis. 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 Diffuse subcutaneous and deep tissue edema suggests cellulitis, venous stasis or lymphedema. Intrinsic atrophy of the musculature with associated edema suggestive of denervation changes. Continue empiric abx with rocephin, vanco. Follow blood cultures Routine orthopedic consult - Severe midfoot arthritis with underlying neuropathy. Patient may weight-bear as tolerated on right lower extremity and supportive, hard soled shoe. Ice and elevation. Will order Lidoderm patch. No further intervention at this time. Would like follow-up with foot and ankle team, Dr. Carpenter at [facility] [place], . Patient agreeable to plan and all questions were answered to satisfaction. 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 Continue home dose metoprolol tartrate Patient reports occasional palpitations, also some on and off chest tightness, EKG showed normal sinus rhythm, occasional tachycardia noted on telemetry, given her history of thoracic aortic aneurysm, will obtain echo (7) ISAC (generalized anxiety disorder): Hydroxyzine as needed (8) Restless leg syndrome: Continue Requip (9) Hypothyroidism: Continue levothyroxine (10) Gastroparesis: Continue Linzess, antiemetics as needed, bowel regimen per home med rec (11) Asthma: Continue Singulair, home inhalers (12) Thoracic aortic aneurysm: Follows with Dr. Arredondo Patient experiences palpitations occasionally, and chest tightness occasionally, given her history of thoracic aortic aneurysm, will obtain echo (13) Sleep apnea: Intolerant to CPAP DVT Ppx: coumadin Code status: FULL PCP: Jason Dispo: Admitted to [facility]. Discharge planning ordered Admission and Anticipated Discharge Date Admission Date: November 17, 2020 Subjective Patient seen in follow-up of LE cellulitis and pain, occasional palpitations and chest tightness Patient reports that pain is located at the dorsum of her foot for the most part, and she reports erythema mostly at the dorsum She still has episodes of severe pain, however says that now she is able to stand on the foot somewhat, she could not stand on it at all on admission ESR, CRP elevated MRI foot obtained,does not show osteomyelitis, but shows severe arthritis Orthopedics was consulted for foot pain, recommend following up with foot and ankle specialist, Dr. Carpenter, elevation and ice, supportive shoes Blood cultures - NGTD Patient otherwise denies any fevers, chills, shortness of breath, denies any abdominal pain, nausea or vomiting She reports occasional palpitations and chest tightness, EKG obtained and showed normal sinus rhythm, on telemetry occasionally tachycardic, will obtain echo as she has history of thoracic aneurysm as well Review of Systems Review of Systems: All systems reviewed & are unremarkable except as noted in HPI & below Constitutional: no fever and no chills Respiratory: no cough and no dyspnea Cardiovascular: + palpitations (occasional) Additional Comments: pt reports occasional chest tightness and palpitations Gastrointestinal: no abdominal pain, no nausea and no vomiting Physical Exam Physical Exam: General Appearance: WD/WN, obese F, in NAD, sitting up in bed Head: normocephalic, atraumatic Eyes: normal inspection, PERRL, EOMI, conjunctivae normal, anicteric sclerae ENT: external ear and nose normal, oropharynx normal Neck: normal visual inspection,+ thick neck Respiratory: normal respiratory effort, lungs clear to auscultation, no wheeze, rales, rhonchi. No accessory muscle use Cardiovascular: regular rate, rhythm, no murmur appreciated Chest: normal inspection of chest Abdomen/GI: normal bowel sounds, soft, obese, nontender Extremities/Musculoskeletal: R dorsum of foot with mild erythema and edema (improved).moves extremities spontaneously. Neurologic: PERRL, EOMI, no face palsy, no dysarthria, moves all extremities Psychiatric: A+Ox3, mildly anxious Skin: no rashes, normal color, warm/dry Results & Data Results & Data ([facility]) Vital Signs (Past 12 Hours) Vital Signs Temp Pulse Pulse Pulse Resp BP Pulse Ox 11/21/20 11:48 36.4 C L 65 16 134/90 99 11/21/20 07:27 36.5 C 67 14 163/99 H 97 11/21/20 07:00 66 11/21/20 03:59 36.5 C 62 18 108/72 92 Laboratory Results 11/21/20 11/21/20 11/21/20 Range/Units 07:10 07:10 07:10 WBC 7.62 (4.8-10.8) K/uL RBC 4.28 (4.2-5.4) M/uL Hgb 13.6 (12.0-16.0) g/dL Hct 43.1 (37-47) % MCV 100.7 H (80-100) fL MCH 31.8 (25-34) pg MCHC 31.6 L (32-36) g/dL RDW Std Deviation 54.0 H (36.4-46.3) fL RDW Coeff of Neftaly 14.6 H (11.5-14.5) % Plt Count 365 (130-400) K/uL MPV 10.0 (7.4-10.4) fL PT 17.8 H (9.0-12.0) Seconds INR 1.8 H (0.9-1.1) Sodium 141 (136-145) mmol/L Potassium 4.0 (3.5-5.1) mmol/L Chloride 105 (98-107) mmol/L Carbon Dioxide 31 (21-32) mmol/L Anion Gap 5.0 (3-11) BUN 27 H (7-18) mg/dl Creatinine 0.83 (0.6-1.2) mg/dl Est Cr Clr Drug Dosing 66.9 ml/min Est GFR ( Amer) 82.8 ml/min Est GFR (Non-Af Amer) 71.4 ml/min BUN/Creatinine Ratio 32.7 H (10-20) Glucose 104 H (70-99) mg/dl Calcium 10.7 H (8.5-10.1) mg/dl Medications Administered Current Inpatient Medications Acetaminophen (Acetaminophen 325 Mg Tab) 650 mg PO Q4H PRN PRN Reason: Pain or Fever Stop: 12/17/20 13:57 Last Admin: 11/18/20 11:08 Dose: 650 mg Documented by: Albuterol (Albuterol Hfa 8 Gm Inhaler) 2 puffs INH QID PRN PRN Reason: Shortness Of Breath Stop: 12/17/20 13:57 Albuterol (Albut/Ipratrop 3mg/0.5mg Neb 3 Ml Vial) 3 ml INH QIDR PRN PRN Reason: Shortness Of Breath Or Wheezing Stop: 12/17/20 14:59 Last Admin: 11/20/20 09:21 Dose: 3 ml Documented by: Atorvastatin Calcium (Atorvastatin 20 Mg Tab) 20 mg PO HS [facility] Stop: 12/17/20 20:59 Last Admin: 11/19/20 19:50 Dose: 20 mg Documented by: Calcium Citrate (Calcium Citrate 950 Mg Tab) 950 mg PO BID [facility] Stop: 12/17/20 20:59 Last Admin: 11/21/20 07:38 Dose: 950 mg Documented by: Carbidopa/Levodopa (Carbidopa/Levodopa 25/100mg Tab) 1 tab PO QID [facility] Stop: 12/17/20 16:59 Last Admin: 11/21/20 12:13 Dose: 1 tab Documented by: Diclofenac Sodium (Diclofenac Sod 1% Gel 100 Gm Tube) 2 gm EXT QID [facility] Stop: 12/17/20 16:59 Last Admin: 11/21/20 12:16 Dose: Not Given Documented by: Docusate Sodium (Docusate Sodium 100 Mg Cap) 100 mg PO BID PRN PRN Reason: Constipation Stop: 12/17/20 15:15 Ergocalciferol (Ergocalciferol 50,000 Units 1250 Mcg Cap) 50,000 units PO Th@0900 [facility] Stop: 12/24/20 08:59 Fish Oil ([place]-3 (Purified Fish Oil) 1 Gm Cap) 1 gm PO HS [facility] Stop: 12/17/20 20:59 Last Admin: 11/20/20 22:17 Dose: 1 gm Documented by: Fluticasone Propionate (Fluticasone Propionate Na Spr 16 Gm Btl) 2 sprays ELYSE BID [facility] Stop: 12/17/20 20:59 Last Admin: 11/21/20 07:39 Dose: 2 sprays Documented by: Fluticasone/Vilanterol (Fluticasone/Vilanterol 100/25mcg 14 Puffs/Inhaler) 1 puffs INH DAILY [facility] Stop: 12/18/20 08:59 Last Admin: 11/21/20 07:39 Dose: 1 puffs Documented by: Heparin Sodium (Porcine) (Heparin Sod 5,000 Unit/0.5 Ml Vial) 5,000 units SQ Q8 [facility] Stop: 12/20/20 21:59 Last Admin: 11/21/20 05:48 Dose: 5,000 units Documented by: Hydroxyzine HCl (Hydroxyzine Hcl 25 Mg Tab) 25 mg PO Q6H PRN PRN Reason: Anxiety Stop: 12/17/20 13:57 Last Admin: 11/19/20 04:23 Dose: 25 mg Documented by: Ceftriaxone Sodium 2,000 mg/ (Dextrose) 70 mls @ 70 mls/hr IV Q24H [facility] Stop: 11/24/20 11:59 Last Admin: 11/21/20 12:17 Dose: 70 mls/hr Documented by: Daptomycin 275 mg/ Syringe 5.5 mls @ 2.75 mls/min IV Q24H [facility]; Protocol Stop: 11/27/20 19:59 Last Admin: 11/20/20 20:05 Dose: 2.75 mls/min Documented by: Ipratropium [place] (Ipratropium [place] Nasal [place] 0.06% 15ml) 1 sprays ELYSE QID PRN PRN Reason: CONGESTION Stop: 12/17/20 15:16 Lactobacillus Acidoph/Casei/Rhamnos (Advanced Probiotic 1250 Mg Capsule) 2 cap PO DAILY [facility] Stop: 12/18/20 17:14 Last Admin: 11/21/20 07:37 Dose: 2 cap Documented by: Levothyroxine Sodium (Levothyroxine Sodium 50 Mcg Tablet) 50 mcg PO DAILYBB [facility] Stop: 12/18/20 06:29 Last Admin: 11/21/20 05:48 Dose: 50 mcg Documented by: Lidocaine (Lidocaine 5% 1 Patch) 1 patch TD DAILY@1830 [facility] Stop: 12/18/20 18:29 Last Admin: 11/20/20 18:07 Dose: 1 patch Documented by: Lidocaine HCl (Lidocaine 2% Jelly 5 Ml Tube) 5 ml EXT BID PRN PRN Reason: pain Stop: 12/20/20 08:59 Linaclotide (Linaclotide 145 Mcg Capsule) 290 mcg PO DAILY@1500 [facility] Stop: 12/17/20 14:59 Last Admin: 11/20/20 15:15 Dose: 290 mcg Documented by: Magnesium Oxide (Magnesium Oxide 400 Mg Tab) 400 mg PO [facility] Stop: 12/17/20 20:59 Last Admin: 11/21/20 00:01 Dose: 400 mg Documented by: Metaxalone (Metaxalone 800 Mg Tablet) 800 mg PO QID [facility] Stop: 12/17/20 16:59 Last Admin: 11/21/20 12:13 Dose: 800 mg Documented by: Metoprolol Tartrate (Metoprolol Tartrate 25 Mg Tab) 12.5 mg PO [facility] Stop: 12/17/20 20:59 Last Admin: 11/20/20 22:17 Dose: 12.5 mg Documented by: Metoprolol Tartrate (Metoprolol Tartrate 25 Mg Tab) 25 mg PO DAILY [facility] Stop: 12/18/20 08:59 Last Admin: 11/21/20 07:38 Dose: 25 mg Documented by: Miscellaneous (Remove Lidoderm Patch) 1 ea N/A DAILY@0630 [facility] Stop: 12/19/20 06:29 Last Admin: 11/21/20 05:48 Dose: 1 ea Documented by: Miscellaneous Information (Ceftriaxone - Pharmacy Consult In Progress) 1 ea N/A UD PRN PRN Reason: Consult Stop: 12/17/20 14:30 Miscellaneous Information (Daptomycin Consult Active) 1 ea N/A UD PRN PRN Reason: Consult Stop: 12/20/20 12:44 Montelukast Sodium (Montelukast Sodium 10 Mg Tablet) 10 mg PO [facility] Stop: 12/17/20 20:59 Last Admin: 11/20/20 22:20 Dose: 10 mg Documented by: Multivitamins/Minerals (Cerovite Adv Formula Tab) 1 tab PO DAILY@1200 [facility] Stop: 12/18/20 11:59 Last Admin: 11/21/20 12:13 Dose: 1 tab Documented by: Ondansetron HCl (Ondansetron Inj 2 Mg/Ml 2 Ml Vial) 4 mg IV Q6H PRN PRN Reason: Nausea Stop: 12/17/20 13:57 Oxycodone/Acetaminophen (Oxycodone/Acetaminophen 5mg/325mg Tab) 1 tab PO Q4H PRN PRN Reason: Pain Stop: 12/01/20 13:57 Last Admin: 11/21/20 07:42 Dose: 1 tab Documented by: Pantoprazole Sodium (Pantoprazole 40 Mg Tab) 40 mg PO QAM [facility] Stop: 12/18/20 08:59 Last Admin: 11/21/20 07:37 Dose: 40 mg Documented by: Polyethylene Glycol (Polyethylene (Miralax) 17 Gm Pack) 17 gm PO DAILY PRN PRN Reason: Constipation Stop: 12/17/20 13:57 Last Admin: 11/18/20 23:40 Dose: 17 gm Documented by: Polyethylene Glycol (Polyethylene (Miralax) 17 Gm Pack) 17 gm PO DAILY [facility] Stop: 12/22/20 08:59 Ropinirole HCl (Ropinirole Hcl 1 Mg Tablet) 2 mg PO TID@0730,1200,1800 [facility] Stop: 12/17/20 19:14 Last Admin: 11/21/20 12:13 Dose: 2 mg Documented by: Ropinirole HCl (Ropinirole Hcl 1 Mg Tablet) 4 mg PO HS [facility] Stop: 12/17/20 21:59 Last Admin: 11/20/20 22:16 Dose: 4 mg Documented by: Senna/Docusate Sodium (Docusate Sodium/Senna 50/8.6mg Tab) 1 tab PO BID PRN PRN Reason: Constipation Stop: 12/17/20 13:57 Sennosides (Senna 8.6 Mg Tab) 8.6 mg PO QAM [facility] Stop: 12/18/20 09:29 Last Admin: 11/21/20 07:37 Dose: 8.6 mg Documented by: Thiamine HCl (Thiamine Hcl 100 Mg Tab) 100 mg PO BID [facility] Stop: 12/17/20 20:59 Last Admin: 11/21/20 07:39 Dose: 100 mg Documented by: Tramadol HCl (Tramadol Hcl 50 Mg Tablet) 50 mg PO Q8H PRN PRN Reason: Pain Stop: 12/17/20 13:57 Last Admin: 11/20/20 01:10 Dose: 50 mg Documented by: Trazodone HCl (Trazodone Hcl 50 Mg Tab) 25 mg PO HS PRN PRN Reason: Insomnia Stop: 12/17/20 13:57 Last Admin: 11/21/20 02:40 Dose: 25 mg Documented by: Warfarin Sodium (Warfarin Sod 5 Mg Tab) 5 mg PO TUSA@1600 [facility] Stop: 12/19/20 15:59 Last Admin: 11/19/20 15:45 Dose: 5 mg Documented by: Warfarin Sodium (Warfarin Sod 2.5 Mg Tab) 2.5 mg PO SUMOWETHFR@1600 [facility] Stop: 12/17/20 15:59 Last Admin: 11/20/20 17:13 Dose: 2.5 mg Documented by: (1) Thoracic aortic aneurysm Presence of rupture: without rupture Qualified Code(s): I71.2 - Thoracic aortic aneurysm, without rupture
[2020-11-21] MEDS: WARFARIN SOD 2.5 MG TAB PO SCH (15:42)
[2020-11-21] MEDS: LINACLOTIDE 145 MCG CAPSULE PO SCH (15:42)
[2020-11-21] MEDS: LIDOCAINE 5% 1 PATCH TD SCH (17:14)
[2020-11-21] MEDS: DAPTOmycin 275 MG in SYRINGE 0 ML IV SCH (19:36)
[2020-11-21] MEDS: MONTELUKAST SODIUM 10 MG TABLET PO SCH (20:18)
[2020-11-21] MEDS: OMEGA-3 (PURIFIED FISH OIL) 1 GM CAP PO SCH (20:19)
[2020-11-22] MEDS: oxyCODONE/ACETAMINOPHEN 5mg/325mg TAB PO PRN (05:40)
[2020-11-22] MEDS: HEPARIN SOD 5,000 UNIT/0.5 ML VIAL SQ SCH (05:41)
[2020-11-22] MEDS: LEVOTHYROXINE SODIUM 50 MCG TABLET PO SCH (05:41)
[2020-11-22 06:56] LABS: Hematocrit (blood only) 39.9 % (37-47); Hemoglobin 12.6 g/dL (12.0-16.0); Mean Corpuscular Hemoglobin 31.2 pg (25-34); Mean Corpuscular Hgb Conc 31.6 g/dL (32-36); Mean Corpuscular Volume 98.8 fL (80-100); Platelet Count 299 K/uL (130-400); RDW Coefficient of Variation 14.5 % (11.5-14.5); RDW Standard Deviation 52.5 fL (36.4-46.3); Red Blood Count 4.04 M/uL (4.2-5.4); White Blood Count 9.13 K/uL (4.8-10.8)
[2020-11-22 07:27] LABS: BUN Creatinine Ratio 42.9 (10-20); Calcium 9.4 mg/dl (8.5-10.1); Creatinine Clr Calc Pharmacy 65.1 ml/min; Est GFR (African American) 79.3 ml/min; Est GFR (Non-African American) 68.4 ml/min; Magnesium 2.4 mg/dl (1.8-2.4); Phosphorus 3.9 mg/dl (2.5-4.9); Potassium 4.4 mmol/L (3.5-5.1)
--- NOTE | 2020-11-22 08:08 | Hospitalist Progress Note ---
Date of Service November 22, 2020 Assessment & Plan (1) Cellulitis of right foot: This is a 70yo F with a PMH of Edenilson-Danlos syndrome, intermittent asthma, hypertension, chronic diastolic heart failure, paroxysmal SVT on Coumadin, RLS, anxiety, BRANDIE intolerant to CPAP and other medical problems listed below who presents with R foot pain over the past month. Recent foot XR at [facility] without evidence of fracture XR now showing soft tissue swelling without acute fracture or dislocation Has tried lidocaine to foot in the past but had skin irritation -has been seen multiple times in clinic for foot pain Afebrile, no leukocytosis. ESR elevated at 47. CRP elevated at 2.58 Ordering MRI of foot for better visualization, rule out osteomyelitis - Motion degraded exam. No acute fracture or evidence of osteomyelitis. 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 Diffuse subcutaneous and deep tissue edema suggests cellulitis, venous stasis or lymphedema. Intrinsic atrophy of the musculature with associated edema suggestive of denervation changes. Continued empiric abx with rocephin, vanco. Vanco was switched to doptamycin. Follow final blood cultures. Blood cultures- 11/17 - NGTD Routine orthopedic consult - Severe midfoot arthritis with underlying neuropathy. Patient may weight-bear as tolerated on right lower extremity and supportive, hard soled shoe. Ice and elevation. Will order Lidoderm patch. No further intervention at this time. Would like follow-up with foot and ankle team, Dr. Carpenter at [facility] upon discharge, . Patient agreeable to plan and all questions were answered to satisfaction. 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 Continue home dose metoprolol tartrate Patient reported occasional palpitations, also some on and off chest tightness, EKG showed normal sinus rhythm, occasional tachycardia noted on telemetry, given her history of thoracic aortic aneurysm, obtained echo - unchanged from previous (7) ISAC (generalized anxiety disorder): Hydroxyzine as needed (8) Restless leg syndrome: Continue Requip (9) Hypothyroidism: Continue levothyroxine (10) Gastroparesis: Continue Linzess, antiemetics as needed, bowel regimen per home med rec (11) Asthma: Continue Singulair, home inhalers (12) Thoracic aortic aneurysm: Follows with Dr. Arredondo Patient experienced palpitations occasionally, and chest tightness occasionally, given her history of thoracic aortic aneurysm, obtained echo - unchanged from previous (13) Sleep apnea: Intolerant to CPAP DVT Ppx: coumadin Code status: FULL PCP: Jason Dispo: Admitted to [facility] tele. Discharge planning ordered Admission and Anticipated Discharge Date Admission Date: November 17, 2020 Subjective Patient seen in follow-up of LE cellulitis and pain Pain is located at the dorsum of her foot for the most part, and she reports erythema mostly at the dorsum Now she is able to stand on the foot somewhat, she could not stand on it at all on admission ESR, CRP elevated MRI foot obtained,does not show osteomyelitis, but shows severe arthritis Orthopedics was consulted for foot pain, recommend following up with foot and ankle specialist, Dr. Carpenter, elevation and ice, supportive shoes Blood cultures - NGTD Patient otherwise denies any fevers, chills, shortness of breath, denies any abdominal pain, nausea or vomiting Review of Systems Review of Systems: All systems reviewed & are unremarkable except as noted in HPI & below Constitutional: no fever and no chills Respiratory: no cough and no dyspnea Cardiovascular: no chest pain and no palpitations Gastrointestinal: no abdominal pain, no nausea and no vomiting Physical Exam Physical Exam: General Appearance: WD/WN, obese F, in NAD, sitting up in bed Head: normocephalic, atraumatic Eyes: normal inspection, PERRL, EOMI, conjunctivae normal, anicteric sclerae ENT: external ear and nose normal, oropharynx normal Neck: normal visual inspection,+ thick neck Respiratory: normal respiratory effort, lungs clear to auscultation, no wheeze, rales, rhonchi. No accessory muscle use Cardiovascular: regular rate, rhythm, no murmur appreciated Chest: normal inspection of chest Abdomen/GI: normal bowel sounds, soft, obese, nontender Extremities/Musculoskeletal: R dorsum of foot with mild erythema and edema (improved).moves extremities spontaneously. Neurologic: PERRL, EOMI, no face palsy, no dysarthria, moves all extremities Psychiatric: A+Ox3, mildly anxious Skin: no rashes, normal color, warm/dry Results & Data Results & Data ([facility]) Vital Signs (Past 12 Hours) Vital Signs Temp Pulse Pulse Resp BP Pulse Ox 11/22/20 07:04 36.3 C L 67 18 139/90 96 11/22/20 07:00 67 11/22/20 03:39 36.4 C L 82 18 119/79 95 11/21/20 23:54 69 11/21/20 23:10 64 18 105/64 97 Laboratory Results 11/22/20 11/22/20 Range/Units 06:34 06:34 WBC 9.13 (4.8-10.8) K/uL RBC 4.04 L (4.2-5.4) M/uL Hgb 12.6 (12.0-16.0) g/dL Hct 39.9 (37-47) % MCV 98.8 (80-100) fL MCH 31.2 (25-34) pg MCHC 31.6 L (32-36) g/dL RDW Std Deviation 52.5 H (36.4-46.3) fL RDW Coeff of Neftaly 14.5 (11.5-14.5) % Plt Count 299 (130-400) K/uL MPV 10.0 (7.4-10.4) fL Sodium 141 (136-145) mmol/L Potassium 4.4 (3.5-5.1) mmol/L Chloride 109 H (98-107) mmol/L Carbon Dioxide 28 (21-32) mmol/L Anion Gap 4.0 (3-11) BUN 37 H (7-18) mg/dl Creatinine 0.86 (0.6-1.2) mg/dl Est Cr Clr Drug Dosing 65.1 ml/min Est GFR ( Amer) 79.3 ml/min Est GFR (Non-Af Amer) 68.4 ml/min BUN/Creatinine Ratio 42.9 H (10-20) Glucose 89 (70-99) mg/dl Calcium 9.4 (8.5-10.1) mg/dl Phosphorus 3.9 (2.5-4.9) mg/dl Magnesium 2.4 (1.8-2.4) mg/dl Medications Administered Current Inpatient Medications Acetaminophen (Acetaminophen 325 Mg Tab) 650 mg PO Q4H PRN PRN Reason: Pain or Fever Stop: 12/17/20 13:57 Last Admin: 11/18/20 11:08 Dose: 650 mg Documented by: Albuterol (Albuterol Hfa 8 Gm Inhaler) 2 puffs INH QID PRN PRN Reason: Shortness Of Breath Stop: 12/17/20 13:57 Albuterol (Albut/Ipratrop 3mg/0.5mg Neb 3 Ml Vial) 3 ml INH QIDR PRN PRN Reason: Shortness Of Breath Or Wheezing Stop: 12/17/20 14:59 Last Admin: 11/20/20 09:21 Dose: 3 ml Documented by: Atorvastatin Calcium (Atorvastatin 20 Mg Tab) 20 mg PO [facility] Stop: 12/17/20 20:59 Last Admin: 11/19/20 19:50 Dose: 20 mg Documented by: Calcium Citrate (Calcium Citrate 950 Mg Tab) 950 mg PO BID COUNT INCLUDES THE [facility] Stop: 12/17/20 20:59 Last Admin: 11/21/20 20:19 Dose: 950 mg Documented by: Carbidopa/Levodopa (Carbidopa/Levodopa 25/100mg Tab) 1 tab PO QID COUNT INCLUDES THE [facility] Stop: 12/17/20 16:59 Last Admin: 11/21/20 20:19 Dose: 1 tab Documented by: Diclofenac Sodium (Diclofenac Sod 1% Gel 100 Gm Tube) 2 gm EXT QID ASHUTOSH Stop: 12/17/20 16:59 Last Admin: 11/21/20 20:19 Dose: 2 gm Documented by: Docusate Sodium (Docusate Sodium 100 Mg Cap) 100 mg PO BID PRN PRN Reason: Constipation Stop: 12/17/20 15:15 Ergocalciferol (Ergocalciferol 50,000 Units 1250 Mcg Cap) 50,000 units PO Th@0900 COUNT INCLUDES THE [facility] Stop: 12/24/20 08:59 Fish Oil ([place]-3 (Purified Fish Oil) 1 Gm Cap) 1 gm PO HS COUNT INCLUDES THE [facility] Stop: 12/17/20 20:59 Last Admin: 11/21/20 20:19 Dose: 1 gm Documented by: Fluticasone Propionate (Fluticasone Propionate Na Spr 16 Gm Btl) 2 sprays ELYSE BID COUNT INCLUDES THE [facility] Stop: 12/17/20 20:59 Last Admin: 11/21/20 20:19 Dose: 2 sprays Documented by: Fluticasone/Vilanterol (Fluticasone/Vilanterol 100/25mcg 14 Puffs/Inhaler) 1 puffs INH DAILY ASHUTOSH Stop: 12/18/20 08:59 Last Admin: 11/21/20 07:39 Dose: 1 puffs Documented by: Heparin Sodium (Porcine) (Heparin Sod 5,000 Unit/0.5 Ml Vial) 5,000 units SQ Q8 COUNT INCLUDES THE [facility] Stop: 12/20/20 21:59 Last Admin: 11/22/20 05:41 Dose: 5,000 units Documented by: Hydroxyzine HCl (Hydroxyzine Hcl 25 Mg Tab) 25 mg PO Q6H PRN PRN Reason: Anxiety Stop: 12/17/20 13:57 Last Admin: 11/19/20 04:23 Dose: 25 mg Documented by: Ceftriaxone Sodium 2,000 mg/ (Dextrose) 70 mls @ 70 mls/hr IV Q24H COUNT INCLUDES THE [facility] Stop: 11/24/20 11:59 Last Infusion: 11/21/20 14:28 Dose: Infused Documented by: Daptomycin 275 mg/ Syringe 5.5 mls @ 2.75 mls/min IV Q24H COUNT INCLUDES THE [facility]; Protocol Stop: 11/27/20 19:59 Last Admin: 11/21/20 19:36 Dose: 2.75 mls/min Documented by: Ipratropium [place] (Ipratropium [place] Nasal [place] 0.06% 15ml) 1 sprays ELYSE QID PRN PRN Reason: CONGESTION Stop: 12/17/20 15:16 Lactobacillus Acidoph/Casei/Rhamnos (Advanced Probiotic 1250 Mg Capsule) 2 cap PO DAILY ASHUTOSH Stop: 12/18/20 17:14 Last Admin: 11/21/20 07:37 Dose: 2 cap Documented by: Levothyroxine Sodium (Levothyroxine Sodium 50 Mcg Tablet) 50 mcg PO DAILYBB COUNT INCLUDES THE [facility] Stop: 12/18/20 06:29 Last Admin: 11/22/20 05:41 Dose: 50 mcg Documented by: Lidocaine (Lidocaine 5% 1 Patch) 1 patch TD DAILY@1830 COUNT INCLUDES THE [facility] Stop: 12/18/20 18:29 Last Admin: 11/21/20 17:14 Dose: 1 patch Documented by: Lidocaine HCl (Lidocaine 2% Jelly 5 Ml Tube) 5 ml EXT BID PRN PRN Reason: pain Stop: 12/20/20 08:59 Linaclotide (Linaclotide 145 Mcg Capsule) 290 mcg PO DAILY@1500 COUNT INCLUDES THE [facility] Stop: 12/17/20 14:59 Last Admin: 11/21/20 15:42 Dose: 290 mcg Documented by: Magnesium Oxide (Magnesium Oxide 400 Mg Tab) 400 mg PO [facility] Stop: 12/17/20 20:59 Last Admin: 11/21/20 20:19 Dose: 400 mg Documented by: Metaxalone (Metaxalone 800 Mg Tablet) 800 mg PO QID COUNT INCLUDES THE [facility] Stop: 12/17/20 16:59 Last Admin: 11/21/20 20:19 Dose: 800 mg Documented by: Metoprolol Tartrate (Metoprolol Tartrate 25 Mg Tab) 12.5 mg PO [facility] Stop: 12/17/20 20:59 Last Admin: 11/21/20 20:19 Dose: 12.5 mg Documented by: Metoprolol Tartrate (Metoprolol Tartrate 25 Mg Tab) 25 mg PO DAILY COUNT INCLUDES THE [facility] Stop: 12/18/20 08:59 Last Admin: 11/21/20 07:38 Dose: 25 mg Documented by: Miscellaneous (Remove Lidoderm Patch) 1 ea N/A DAILY@0630 COUNT INCLUDES THE [facility] Stop: 12/19/20 06:29 Last Admin: 11/22/20 05:41 Dose: 1 ea Documented by: Miscellaneous Information (Ceftriaxone - Pharmacy Consult In Progress) 1 ea N/A UD PRN PRN Reason: Consult Stop: 12/17/20 14:30 Miscellaneous Information (Daptomycin Consult Active) 1 ea N/A UD PRN PRN Reason: Consult Stop: 12/20/20 12:44 Montelukast Sodium (Montelukast Sodium 10 Mg Tablet) 10 mg PO [facility] Stop: 12/17/20 20:59 Last Admin: 11/21/20 20:18 Dose: 10 mg Documented by: Multivitamins/Minerals (Cerovite Adv Formula Tab) 1 tab PO DAILY@1200 COUNT INCLUDES THE [facility] Stop: 12/18/20 11:59 Last Admin: 11/21/20 12:13 Dose: 1 tab Documented by: Ondansetron HCl (Ondansetron Inj 2 Mg/Ml 2 Ml Vial) 4 mg IV Q6H PRN PRN Reason: Nausea Stop: 12/17/20 13:57 Oxycodone/Acetaminophen (Oxycodone/Acetaminophen 5mg/325mg Tab) 1 tab PO Q4H PRN PRN Reason: Pain Stop: 12/01/20 13:57 Last Admin: 11/22/20 05:40 Dose: 1 tab Documented by: Pantoprazole Sodium (Pantoprazole 40 Mg Tab) 40 mg PO QAM COUNT INCLUDES THE [facility] Stop: 12/18/20 08:59 Last Admin: 11/21/20 07:37 Dose: 40 mg Documented by: Polyethylene Glycol (Polyethylene (Miralax) 17 Gm Pack) 17 gm PO DAILY PRN PRN Reason: Constipation Stop: 12/17/20 13:57 Last Admin: 11/18/20 23:40 Dose: 17 gm Documented by: Polyethylene Glycol (Polyethylene (Miralax) 17 Gm Pack) 17 gm PO DAILY COUNT INCLUDES [facility] Stop: 12/22/20 08:59 Ropinirole HCl (Ropinirole Hcl 1 Mg Tablet) 2 mg PO TID@0730,1200,1800 COUNT INCLUDES THE [facility] Stop: 12/17/20 19:14 Last Admin: 11/21/20 17:12 Dose: 2 mg Documented by: Ropinirole HCl (Ropinirole Hcl 1 Mg Tablet) 4 mg PO HS COUNT INCLUDES [facility] Stop: 12/17/20 21:59 Last Admin: 11/21/20 20:19 Dose: 4 mg Documented by: Senna/Docusate Sodium (Docusate Sodium/Senna 50/8.6mg Tab) 1 tab PO BID PRN PRN Reason: Constipation Stop: 12/17/20 13:57 Sennosides (Senna 8.6 Mg Tab) 8.6 mg PO QAM COUNT INCLUDES THE [facility] Stop: 12/18/20 09:29 Last Admin: 11/21/20 07:37 Dose: 8.6 mg Documented by: Thiamine HCl (Thiamine Hcl 100 Mg Tab) 100 mg PO BID COUNT INCLUDES [facility] Stop: 12/17/20 20:59 Last Admin: 11/21/20 20:18 Dose: 100 mg Documented by: Tramadol HCl (Tramadol Hcl 50 Mg Tablet) 50 mg PO Q8H PRN PRN Reason: Pain Stop: 12/17/20 13:57 Last Admin: 11/20/20 01:10 Dose: 50 mg Documented by: Trazodone HCl (Trazodone Hcl 50 Mg Tab) 25 mg PO HS PRN PRN Reason: Insomnia Stop: 12/17/20 13:57 Last Admin: 11/21/20 02:40 Dose: 25 mg Documented by: Warfarin Sodium (Warfarin Sod 5 Mg Tab) 5 mg PO TUSA@1600 ASHUTOSH Stop: 12/19/20 15:59 Last Admin: 11/19/20 15:45 Dose: 5 mg Documented by: Warfarin Sodium (Warfarin Sod 2.5 Mg Tab) 2.5 mg PO SUMOWETHFR@1600 ASHUTOSH Stop: 12/17/20 15:59 Last Admin: 11/21/20 15:42 Dose: 2.5 mg Documented by: (1) Thoracic aortic aneurysm Presence of rupture: without rupture Qualified Code(s): I71.2 - Thoracic aortic aneurysm, without rupture
[2020-11-22] MEDS: CALCIUM CITRATE 950 MG TAB PO SCH (08:25)
[2020-11-22] MEDS: METAXALONE 800 MG TABLET PO SCH (08:25)
[2020-11-22] MEDS: CARBIDOPA/LEVODOPA 25/100MG TAB PO SCH (08:25)
[2020-11-22] MEDS: THIAMINE HCL 100 MG TAB PO SCH (08:25)
[2020-11-22] MEDS: rOPINIRole HCL 1 MG TABLET PO SCH (08:25)
[2020-11-22] MEDS: METOPROLOL TARTRATE 25 MG TAB PO SCH (08:25)
[2020-11-22] MEDS: ADVANCED PROBIOTIC 1250 MG CAPSULE PO SCH (08:25)
[2020-11-22] MEDS: SENNA 8.6 MG TAB PO SCH (08:25)
[2020-11-22] MEDS: PANTOprazole 40 MG TAB PO SCH (08:25)
[2020-11-22] MEDS: FLUTICASONE PROPIONATE NA SPR 16 GM BTL NAE SCH (08:26)
[2020-11-22] MEDS: DICLOFENAC SOD 1% GEL 100 GM TUBE EXT SCH (08:26)
[2020-11-22] MEDS: FLUTICASONE/VILANTEROL 100/25MCG 14 PUFFS/INHALER INH SCH (08:26)
[2020-11-22] MEDS ORDERED: POLYETHYLENE (MIRALAX) 17 GM PACK PO SCH (09:00)
--- NOTE | 2020-11-22 09:48 | Discharge Summary ---
Date of Service November 22, 2020 Admission HPI Per Admitting Provider This is a 70yo F with a PMH of Edenilson-Danlos syndrome, intermittent asthma, hypertension, chronic diastolic heart failure, paroxysmal SVT on Coumadin, RLS, anxiety, BRANDIE intolerant to CPAP and other medical problems listed below who presents with R foot pain over the past month. Recent foot XR at [facility] without evidence of fracture. Denies any trauma to foot but states its difficult to know for sure with underlying neuropathy. Denies history of osteomyelitis in the past but seems to have longstanding issues with pain in feet, per chart review. Pain is currently 8/10 and described as stinging and aching. Pain improved after 4mg IV morphine but has slowly returned. Takes tramadol at home with some relief. Difficult to ambulate. Denies any fever, chills, lightheadedness, headache. Chest is tight and has 2-5 minute episodes of "twinging pain" she has had intermittently over the past month. Attributes this to anxiety, specifically about pain in foot. No shortness of breath. Feeling nauseated and bloated which she attributes to missed AM dose of Linzess. Denies vomiting. No dysuria or constipation. Admission Exam Per Admitting Provider General Appearance: WD/WN, vitals as above, NAD, sitting up in bed, pleasant, obese Head: normocephalic, atraumatic Eyes: normal inspection, PERRL, conjunctivae normal, anicteric sclerae ENT: external ear and nose normal, oropharynx normal Neck: normal visual inspection, trachea midline, no thyromegaly Respiratory: normal respiratory effort, lungs clear to auscultation, no wheeze, rales, rhonchi. No accessory muscle use Cardiovascular: regular rate, rhythm, no murmur appreciated, normal peripheral pulses, no BLE edema. Vessels: no JVD Chest: normal inspection of chest Abdomen/GI: normal bowel sounds, soft, nontender, no hepatosplenomegaly Extremities/Musculoskeletal: R dorsum of foot with erythema and edema, warm to touch. Not extending to ankle and no streaking. No wounds visualized. TTP. No cyanosis or clubbing, extremities motor strength 5/5 Neurologic: PERRL, EOMI, accommodation nl, no face palsy, no dysarthria, CN's II-XI intact bilaterally and moves all extremities Psychiatric: A+Ox3, anxious Skin: no rashes, normal color, warm/dry Principal Diagnosis Right foot cellulitis, severe foot arthritis, peripheral neuropathy Ambulatory dysfunction due to above Discharge Exam General Appearance: WD/WN, obese F, in NAD, sitting up in bed Head: normocephalic, atraumatic Eyes: normal inspection, PERRL, EOMI, conjunctivae normal, anicteric sclerae ENT: external ear and nose normal, oropharynx normal Neck: normal visual inspection,+ thick neck Respiratory: normal respiratory effort, lungs clear to auscultation, no wheeze, rales, rhonchi. No accessory muscle use Cardiovascular: regular rate, rhythm, no murmur appreciated Chest: normal inspection of chest Abdomen/GI: normal bowel sounds, soft, obese, nontender Extremities/Musculoskeletal: R dorsum of foot with mild erythema and edema (improved).moves extremities spontaneously. Neurologic: PERRL, EOMI, no face palsy, no dysarthria, moves all extremities Psychiatric: A+Ox3, mildly anxious Skin: no rashes, normal color, warm/dry Discharge Data Allergies Allergy/AdvReac Type Severity Reaction Status Date / Time buspirone Allergy Severe NEURO Verified 11/17/20 08:37 COMPLICATIONS lisinopril Allergy Intermediate cough Verified 11/17/20 08:37 adhesive Allergy Mild skin tears Verified 11/17/20 08:37 ammonia Allergy Unknown SWELLING Verified 11/17/20 08:37 duloxetine Allergy Unknown RASH Verified 11/17/20 08:37 ITCHING NSAIDS (Non-Steroidal Allergy Unknown not Verified 11/17/20 08:37 Anti-Inflamma supposed to use-S/P GASTRIC BYPASS venlafaxine Allergy Unknown AFFECTS Verified 11/17/20 08:37 LEGS diphenhydramine AdvReac Unknown RESTLESS Verified 11/17/20 08:37 LEGS Dust Allergy Unknown ROACHES,DUST Uncoded 11/17/20 08:37 MITES-CLOGGED UP SINUSES-CAN'T BREATHE Consultations 11/17/20 11:25 ED Decision to Admit Stat 11/17/20 13:58 Consult Orthopedic Surgery Routine Ordered Studies 11/17/20 14:44 MR foot RT w/o con Routine IMPRESSION: 1. Motion degraded exam. No acute fracture or evidence of osteomyelitis. 2. 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 3. Diffuse subcutaneous and deep tissue edema suggests cellulitis, venous stasis or lymphedema. 4. Intrinsic atrophy of the musculature with associated edema suggestive of denervation changes. Hospital Course (1) Cellulitis of right foot: This is a 70yo F with a PMH of Edenilson-Danlos syndrome, intermittent asthma, hypertension, chronic diastolic heart failure, paroxysmal SVT on Coumadin, RLS, anxiety, BRANDIE intolerant to CPAP and other medical problems listed below who presents with R foot pain over the past month. Recent foot XR at [facility] without evidence of fracture XR now showing soft tissue swelling without acute fracture or dislocation Has tried lidocaine to foot in the past but had skin irritation -has been seen multiple times in clinic for foot pain Afebrile, no leukocytosis. ESR elevated at 47. CRP elevated at 2.58 Ordering MRI of foot for better visualization, rule out osteomyelitis - Motion degraded exam. No acute fracture or evidence of osteomyelitis. 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 Diffuse subcutaneous and deep tissue edema suggests cellulitis, venous stasis or lymphedema. Intrinsic atrophy of the musculature with associated edema suggestive of denervation changes. Continued empiric abx with rocephin, vanco. Vanco was switched to doptamycin. Follow final blood cultures. Blood cultures- 11/17 - NGTD Routine orthopedic consult - Severe midfoot arthritis with underlying neuro sybil. Patient may weight-bear as tolerated on right lower extremity and supportive, hard soled shoe. Ice and elevation. Will order Lidoderm patch. No further intervention at this time. Would like follow-up with foot and ankle team, Dr. Carpenter at [facility] upon discharge, . Patient agreeable to plan and all questions were answered to satisfaction. 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 Continue home dose metoprolol tartrate Patient reported occasional palpitations, also some on and off chest tightness, EKG showed normal sinus rhythm, occasional tachycardia noted on telemetry, given her history of thoracic aortic aneurysm, obtained echo - unchanged from previous (7) ISAC (generalized anxiety disorder): Hydroxyzine as needed (8) Restless leg syndrome: Continue Requip (9) Hypothyroidism: Continue levothyroxine (10) Gastroparesis: Continue Linzess, antiemetics as needed, bowel regimen per home med rec (11) Asthma: Continue Singulair, home inhalers (12) Thoracic aortic aneurysm: Follows with Dr. Arredondo Patient experienced palpitations occasionally, and chest tightness occasionally, given her history of thoracic aortic aneurysm, obtained echo - unchanged from previous (13) Sleep apnea: Intolerant to CPAP PCP: Dr. Gomez Total Time Total Time Spent Total Time Spent (In Minutes): 35 Total Time Includes: Examination of the Patient, Discharge Planning and Medication Reconciliation Discharge Plan Discharge Items Patient Disposition: Home - Self-Care Reason For Visit: FOOT PAIN, AMBULATORY DYSFUNCTION Discharge Diagnosis: Right foot cellulitis, severe foot arthritis, peripheral neuropathy Ambulatory dysfunction due to above Activity: Per Instructions section Non-emergency contact: Primary Care Provider and Specialist Call non-emergency contact if: you have any medication questions and your symptoms worsen Follow-up/Referrals: Debbie Otero PA-C [Primary Care Provider] - (Date & Time 11/25/2020 11:10 AM Provider Lavern Gomez, [facility] ) Diet: Heart Healthy Addtl Attending Provider Instructions: Follow-up with primary care doctor, in 1 to 2 weeks. The appointment was scheduled for you for November 25. Also make sure to follow-up with Dr. Carpenter, with the [facility], their phone number is [phone]. Finish antibiotic course, as prescribed. For pain, you can take Tylenol, up to 3000 mg a day, for more severe pain you can also use oxycodone as prescribed. Pending Studies at Discharge: Yes Studies:: Final blood cultures Stand-Alone Forms: My [employer], Smoking Cessation Medications and DC Order Prescriptions: New cephalexin [Keflex] 750 mg capsule 750 mg PO Q8H 4 Days Qty: 12 RF: 0 oxycodone 5 mg capsule 5 mg PO Q8H PRN (Reason: pain) Qty: 10 RF: 0 lidocaine HCl 2 % Jelly 5 ml EXT BID PRN (Reason: pain) Qty: 30 RF: 0 Advanced Probiotic 625 mg (10 billion cell) Capsule 2 cap PO DAILY Qty: 14 RF: 0 Continued cyanocobalamin (vitamin B-12) 1,000 mcg/mL solution 1,000 mcg IM MONTHLY RF: 0 metoprolol tartrate 25 mg tablet 25 mg PO DAILY RF: 0 atorvastatin 20 mg Tablet 20 mg PO HS RF: 0 sennosides-docusate sodium [Senna-S] 8.6-50 mg Tablet 1 tab PO BID PRN (Reason: Constipation) RF: 0 tramadol 50 mg Tablet 50 mg PO Q8H PRN (Reason: Pain) RF: 0 magnesium 250 mg Tablet 500 mg PO HS RF: 0 ergocalciferol (vitamin D2) 50,000 unit Capsule 50,000 unit PO WK RF: 0 albuterol sulfate [Ventolin HFA] 90 mcg/actuation Hfa Aerosol Inhaler 2 puff INHALATION QID PRN (Reason: Shortness Of Breath) RF: 0 carbidopa-levodopa [Sinemet] 25-100 mg Tablet 1 tab PO QID RF: 0 ondansetron 4 mg Tablet,Disintegrating 4 mg PO QID PRN (Reason: Nausea) RF: 0 fluticasone propionate [Flonase Allergy Relief] 50 mcg/actuation [place],Suspension 2 spray INTRANASAL BID RF: 0 ipratropium bromide 0.03 % [place],Non-Aerosol 2 spray INTRANASAL QID PRN (Reason: Nasal Congestion) RF: 0 calcium citrate 200 mg (950 mg) Tablet 650 mg PO BID RF: 0 metaxalone [Metaxall] 800 mg Tablet 800 mg PO QID RF: 0 diclofenac sodium [Voltaren] 1 % Gel 2 g TOPICAL QID RF: 0 omeprazole 20 mg Tablet,Delayed Release (Dr/Ec) 20 mg PO QAM RF: 0 [place]-3 Fish Oil 300-1,000 mg Capsule 1 tab PO HS RF: 0 biotin 1,000 mcg Tablet,Chewable 1,000 mcg PO HS RF: 0 ropinirole 0.5 mg tablet 0.5 mg PO DIRECTED RF: 0 thiamine HCl (vitamin B1) 100 mg Tablet 100 mg PO BID RF: 0 PreserVision AREDS-2 [phone]-mg Capsule 1 tab PO BID RF: 0 warfarin 5 mg Tablet 5 mg PO TUSA@1600 RF: 0 warfarin 5 mg tablet 2.5 mg PO SUMOWETHFR@1600 RF: 0 mupirocin 2 % ointment 1 applic TOPICAL TID RF: 0 metoprolol tartrate 25 mg Tablet 12.5 mg PO HS RF: 0 furosemide [Lasix] 40 mg Tablet 40 mg PO DAILY PRN (Reason: Edema) RF: 0 ipratropium-albuterol 0.5 mg-3 mg(2.5 mg base)/3 mL solution for nebulization 3 ml INHALATION QID RF: 0 trazodone 50 mg tablet 25 mg PO HS PRN (Reason: Insomnia) RF: 0 levothyroxine 50 mcg tablet 50 mcg PO DAILY RF: 0 montelukast 10 mg tablet 10 mg PO HS RF: 0 hydroxyzine HCl 25 mg tablet 25 mg PO Q6H PRN (Reason: Anxiety) RF: 0 fluticasone propion-salmeterol 100-50 mcg/dose blister with device 1 inh INHALATION BID RF: 0 Linzess 290 mcg capsule 290 mcg PO DAILY@1500 RF: 0 Colace 50 mg Capsule 50 mg PO BID PRN (Reason: Constipation) RF: 0 potassium chloride 20 mEq Tablet Extended Release 20 meq PO DAILY RF: 0 Discharge Orders: Discharge Order (Routine); Ordered 11/22/20 Ordered By: Jez Sultana Admission Data Admit Date/Time: 11/17/20 11:42 Attending Provider: Jez Sultana Admit Provider: Yosi Santana Primary Care Provider: Debbie Otero Other Providers: Yosi Santana ; Celestino Wheatley ; [facility]
[2020-11-24] MEDS ORDERED: ERGOCALCIFEROL 50,000 UNITS 1250 MCG CAP PO SCH (09:00)
== END 2020-11-22 11:56 | disposition home health service (06) | DRG 603 ==
LOC: ED 08:09 → 2N 11:42 → SUATTDRO 11:42 → 2N 13:23

== ENCOUNTER 2021-03-16 17:54 | Inpatient (IN) ==
[2021-03-16] MEDS ORDERED: DAPTOmycin 400 MG in SYRINGE 0 ML IV ONE (18:20)
[2021-03-16] MEDS ORDERED: CEFEPIME 2,000 MG/20 ML VIAL IV STA (18:20)
--- NOTE | 2021-03-16 18:25 | Emergency Department Note ---
Impression & Plan Left leg pain, Edema, Cellulitis, Leukocytosis ED Provider Note NAME: GRETTA PRAJAPATI AGE: 70 SEX: F : 1950 ARRIVES VIA: Ambulance INFORMANT: [Patient] ED PROVIDER(S): [Julian Escobar MD] CHIEF COMPLAINT: Leg swelling HISTORY OF PRESENT ILLNESS: The patient is a 70-year-old female who presents with a week of leg swelling. Her left lower leg has been swollen. She had an ultrasound yesterday at this hospital that did not show any DVT. In the last 24 hours, the leg has become reddened and more painful. It is hot to touch. She went to her doctor's office and was referred to the ED. She presents by ambulance. The patient admits to some chills, no documented fever. There is moderate to severe pain in the left leg especially when she tries to ambulate. She has not had vomiting or diarrhea or shortness of breath. She has history of cellulitis but, she states her leg has never looked this bad. The patient denies any trauma to the leg. She is on Coumadin for clot prevention. She is taking this medication as prescribed. REVIEW OF SYSTEMS: See HPI for pertinent positives and negatives. A total of ten systems were reviewed and were otherwise negative. PMHx/PSHx: See Below SOCIAL HISTORY: See Below. PHYSICAL EXAM: GENERAL: Patient is in no acute distress. HEENT: No acute trauma, normocephalic atraumatic, mucous membranes moist, no nasal congestion, no scleral icterus. NECK: No stridor, no adenopathy, no meningismus, trachea is midline. LUNGS: Clear to auscultation bilaterally, no wheeze, no rhonchi, breath sounds equal. HEART: 2/6 systolic murmur, mildly tachycardic, regular rhythm. ABDOMEN: Soft, nontender, bowel sounds positive, no hernias, no peritonitis. EXTREMITIES: No cyanosis. There is moderate edema of the left lower extremity. There is erythema and warmth that extends from the foot to the mid thigh. No drainage. NEUROLOGIC: Oriented x 3, no acute motor or sensory deficits, no focal weakness. SKIN: No jaundice, no diaphoresis. DIFFERENTIAL DIAGNOSIS: Sepsis, UTI, pneumonia, metabolic abnormality, electrolyte abnormalities, COVID- 19, cardiac sources, cellulitis, bacteremia, intracerebral event, toxicologic etiology, neurologic event, as well as other pathologies. EMERGENCY DEPARTMENT COURSE/PROCEDURES: ECG: Indication was possible sepsis. The ECG shows a normal sinus rhythm with a rate of 86. There is no ST elevation, no PVCs. The QTc is 447. Continuous Cardiac Monitoring: An order was placed for continuous cardiac monitoring. The monitor shows a rate of 104 with sinus tachycardia. Critical Care Note: I have personally spent 39 minutes of critical care time in the direct management of this patient. This includes bedside care, interpretation of diagnostic studies, and testing, discussion with consultants, patient, and family members, and other required patient management activities. This 39 minutes is in excess of all separately billable procedures. MEDICAL DECISION MAKING: There is a mild leukocytosis, this would be consistent with infection. A mild anemia was noted. There was a normal platelet count. INR was supratherapeutic at 5.2. No significant electrolyte abnormality in need of emergent correction. Lactic acid level was not elevated making severe sepsis less likely. No concerning liver enzyme elevation. ECG shows a sinus rhythm, no acute ischemia. Cardiac enzyme testing x1 is not consistent with acute cardiac injury. Patient appeared to be in a euthyroid state. Urinalysis did not show infection. Covid testing returned negative. On exam, the patient had an obvious left lower extremity cellulitis. Patient was aggressively managed given her findings. Her cellulitis had blossomed in just 24 hours. She has a history of the same. Patient received IV cefepime and IV daptomycin as antibiotic coverage. She received IV saline for hydration. The patient is in need of a hospital stay. She is currently doing well. I did speak with case management, I discussed my findings with the patient. The on-call hospitalist was consulted. Past Med/Surg History Medical History ADHD Asthma uses PRN INH 3-4 x wk Bulging of intervertebral disc Claustrophobia Difficult intravenous access Dysphagia Edenilson-Danlos syndrome ISAC (generalized anxiety disorder) Gastroparesis GERD (gastroesophageal reflux disease) Hearing deficit History of colon polyps History of colon polyps History of DVT (deep vein thrombosis) chronic anticoagulation History of intestinal obstruction Hyperlipidemia Hypothyroidism Osteoarthritis Osteoporosis Peripheral neuropathy Protein C deficiency Pulmonary embolism 07/2018 - treated w/ lovenox - unk etiology Renal cyst Restless leg syndrome Sleep apnea unable to tolerate CPAP Tachycardia Thoracic aortic aneurysm follows w/ Dr. Arredondo - evaluated within last 6 mo Thyroid nodule Surgical History History of abdominoplasty + hernia repair History of arthroscopy of left knee History of bilateral breast reduction surgery History of cholecystectomy History of colonoscopy History of esophagogastroduodenoscopy (EGD) History of gastric bypass History of intestinal surgery History of laparotomy History of left knee replacement History of right knee joint replacement History of tonsillectomy Hx of melanoma excision shoulder S/P hysterectomy Self extubation attempted post gastric bypass Status post biopsy of thyroid gland benign Family History Uncle Stomach cancer Other No family history of adverse response to anesthesia No pertinent family history in first degree relatives Social History Smoking Status: Never smoker Second Hand Exposure: Yes; Hx Alcohol Use: Yes Alcohol type: wine and hard liquor Hx Substance Use: No Preferred Language: Pashto Communication Ability: Effective Visual Impairment: Limited Hearing Ability: Normal Senior Estimator Required: No Beliefs That Will Affect Care: None Current Living Situation: Alone Current Living Situation Comment: has friends to help when needed Feels Safe at Home: Yes Safety Concerns: Feels Safe At This Time Assistive Devices Comment: uses walking stick at home per patient Allergies Allergies Allergy/AdvReac Type Severity Reaction Status Date / Time ammonia Allergy Severe FACE, Verified 03/16/21 19:08 LIPS, TONGUE EDEMA buspirone Allergy Severe NEURO Verified 03/16/21 19:08 COMPLICATIONS duloxetine Allergy Intermediate RASH Verified 03/16/21 19:08 ITCHING lisinopril Allergy Intermediate cough Verified 03/16/21 19:08 adhesive Allergy Mild skin tears Verified 03/16/21 19:08 NSAIDS (Non-Steroidal Allergy Unknown not Verified 03/16/21 19:08 Anti-Inflamma supposed to use-S/P GASTRIC BYPASS vancomycin Allergy Unknown ON [facility] MED Verified 03/16/21 19:08 LIST venlafaxine Allergy Unknown AFFECTS Verified 03/16/21 19:08 LEGS diphenhydramine AdvReac Intermediate RESTLESS Verified 03/16/21 19:08 LEGS gabapentin AdvReac Intermediate MUSCLE Verified 03/16/21 19:08 STIFFNESS POLLEN Allergy Severe FACE, Uncoded 03/16/21 19:08 LIPS, TONGUE EDEMA Dust Allergy Intermediate ROACHES,DUST Uncoded 03/16/21 19:08 MITES-CLOGGED UP SINUSES-CAN'T BREATHE Home Meds Home Medications Medication Instructions Recorded Confirmed albuterol sulfate 90 mcg/actuation 2 puff INHALATION Q6H PRN 04/15/18 03/16/21 aerosol inhaler (Ventolin HFA) atorvastatin 20 mg tablet 20 mg PO HS 04/15/18 03/16/21 biotin 1,000 mcg chewable tablet 1,000 mcg PO HS 04/15/18 03/16/21 calcium citrate 200 mg (950 mg) 650 mg PO BID 04/15/18 03/16/21 tablet carbidopa 25 mg-levodopa 100 mg 1 tab PO QID 04/15/18 03/16/21 tablet (Sinemet) ergocalciferol (vitamin D2) 1,250 50,000 unit PO WK 04/15/18 03/16/21 mcg (50,000 unit) capsule fluticasone propionate 50 2 spray INTRANASAL DAILY 04/15/18 03/16/21 mcg/actuation nasal spray,suspension (Flonase Allergy Relief) ipratropium bromide 21 mcg (0.03 1 spray INTRANASAL QID PRN 04/15/18 03/16/21 %) nasal spray magnesium 250 mg tablet 500 mg PO HS 04/15/18 03/16/21 omega-3s 300 pt-lfx-ulo-other 1 tab PO HS 04/15/18 03/16/21 [id number] oil 1,000 mg capsule ([place]-3 Fish Oil) omeprazole 20 mg tablet,delayed 40 mg PO QAM 04/15/18 03/16/21 release ondansetron 4 mg disintegrating 4 mg PO Q6H PRN 04/15/18 03/16/21 tablet sennosides 8.6 mg-docusate sodium 1 tab PO BID PRN 04/15/18 03/16/21 50 mg tablet (Senna-S) cyanocobalamin (vitamin B-12) 1,000 mcg IM MONTHLY 08/09/19 03/16/21 1,000 mcg/mL injection solution metoprolol tartrate 25 mg tablet 25 mg PO BID 08/09/19 03/16/21 thiamine HCl (vitamin B1) 100 mg 100 mg PO BID 01/18/20 03/16/21 tablet vit C 250 mg-vit E 90 mg-zinc 40 1 tab PO BID 01/18/20 03/16/21 mg-copper 1 ed-xsbmds-ewjlit capsule (PreserVision AREDS-2) docusate sodium 50 mg capsule 50 mg PO BID PRN 11/17/20 03/16/21 fluticasone 100 mcg-salmeterol 50 1 inh INHALATION BID 11/17/20 03/16/21 mcg/dose blistr powdr for inhalation furosemide 40 mg tablet (Lasix) 40 mg PO DAILY PRN 11/17/20 03/16/21 hydroxyzine HCl 25 mg tablet 25 mg PO Q6H PRN 11/17/20 03/16/21 ipratropium 0.5 mg-albuterol 3 mg 3 ml INHALATION QID 11/17/20 03/16/21 (2.5 mg base)/3 mL nebulization soln levothyroxine 50 mcg tablet 50 mcg PO DAILYBB 11/17/20 03/16/21 linaclotide 290 mcg capsule 290 mcg PO DAILY@1500 11/17/20 03/16/21 (Linzess) montelukast 10 mg tablet 10 mg PO HS 11/17/20 03/16/21 mupirocin 2 % topical ointment 1 applic TOPICAL TID PRN 11/17/20 03/16/21 potassium chloride 20 mEq 20 meq PO DAILY 11/17/20 03/16/21 tablet,extended release warfarin 5 mg tablet 2.5 mg PO [id number] 11/17/20 03/16/21 warfarin 5 mg tablet 5 mg PO WK 11/17/20 03/16/21 buprenorphine 10 mcg/hour weekly 10 mcg TOPICAL WK 03/16/21 03/16/21 transdermal patch clobetasol 0.05 % scalp solution 1 applic TOPICAL BID PRN 03/16/21 03/16/21 diclofenac sodium 1 % topical gel 2 g TOPICAL QID 03/16/21 03/16/21 fluticasone propionate 110 2 puff INHALATION BID 03/16/21 03/16/21 mcg/actuation HFA aerosol inhaler (Flovent HFA) metaxalone 800 mg tablet (Skelaxin) 800 mg PO QID 03/16/21 03/16/21 ropinirole 2 mg tablet See Rx Instructions .ROUTE .COMPLEX 03/16/21 03/16/21 sulfamethoxazole 800 1 tab PO BID 03/16/21 03/16/21 mg-trimethoprim 160 mg tablet triamcinolone acetonide 0.1 % 1 applic TOPICAL BID PRN 03/16/21 03/16/21 topical cream Previous Rx's Medication Instructions Recorded L.acidop,casei,lactis,rham-B.lact,nereyda 2 cap PO DAILY #14 cap 11/22/20 625 mg (10 billion cell) capsule (Advanced Probiotic) lidocaine HCl 2 % mucosal jelly 5 ml EXT BID PRN #30 ml 11/22/20 Results & Data (ED) Vital Signs Vital Signs - 24 hr 03/16/21 18:00 03/16/21 18:53 03/16/21 20:08 Temperature 36.9 C Temperature Source Oral Pulse Rate 104 H Pulse Rate [Radial] Respiratory Rate 16 Respiratory Effort / Characteristics Non-Labored Non-Labored Blood Pressure 121/82 Blood Pressure [Left Arm] Blood Pressure Mean 95 Blood Pressure Mean [Left Arm] Pulse Oximetry 97 95 96 Oxygen Delivery Method Room Air Room Air Room Air Sepsis Recent Fever Within 48 Hours No Sepsis New/Unexplained Change in Mental Status No Sepsis Action Taken by Nursing No Action Required 03/16/21 20:09 Temperature Temperature Source Pulse Rate Pulse Rate [Radial] 82 Respiratory Rate 16 Respiratory Effort / Characteristics Blood Pressure Blood Pressure [Left Arm] 112/65 Blood Pressure Mean Blood Pressure Mean [Left Arm] 80 Pulse Oximetry 96 Oxygen Delivery Method Room Air Sepsis Recent Fever Within 48 Hours Sepsis New/Unexplained Change in Mental Status Sepsis Action Taken by Detention Medications Current Medication List: was personally reviewed by me Laboratory Data Attestation: I reviewed the patient's lab results. Result diagrams: 03/17/21 05:29 03/17/21 05:29 Lab Results 03/16/21 03/16/21 03/16/21 Range/Units 18:31 18:31 18:31 WBC 12.92 H (4.8-10.8) K/uL RBC 3.69 L (4.2-5.4) M/uL Hgb 11.6 L (12.0-16.0) g/dL Hct 36.8 L (37-47) % MCV 99.7 (80-100) fL MCH 31.4 (25-34) pg MCHC 31.5 L (32-36) g/dL RDW Std Deviation 52.6 H (36.4-46.3) fL RDW Coeff of Neftaly 14.4 (11.5-14.5) % Plt Count 200 (130-400) K/uL MPV 9.8 (7.4-10.4) fL Immature Gran % (Auto) 0.1 % Neut % (Auto) 86.1 % Lymph % (Auto) 4.8 % Mcclain % (Auto) 9.0 % Eos % (Auto) 0.0 % Baso % (Auto) 0.0 % Neut # (Auto) 11.13 H (1.4-6.5) K/uL Lymph # (Auto) 0.62 L (1.2-3.4) K/uL Mcclain # (Auto) 1.16 H (0.11-0.59) K/uL Eos # (Auto) 0.00 (0-0.5) K/uL Baso # (Auto) 0.00 (0-0.2) K/uL Immature Gran # (Auto) 0.01 (0.00-0.02) K/uL PT Cancelled INR Cancelled APTT Cancelled PTT Ratio Cancelled Sodium 136 (136-145) mmol/L Potassium 4.0 (3.5-5.1) mmol/L Chloride 110 H (98-107) mmol/L Carbon Dioxide 21 (21-32) mmol/L Anion Gap 5.0 (3-11) BUN 20 H (7-18) mg/dl Creatinine 0.90 (0.6-1.2) mg/dl Est Cr Clr Drug Dosing 60.5 ml/min Est GFR ( Amer) 75.1 ml/min Est GFR (Non-Af Amer) 64.8 ml/min BUN/Creatinine Ratio 22.4 H (10-20) Glucose 114 H (70-99) mg/dl Lactate (0.4-2.0) mmol/L Calcium 9.5 (8.5-10.1) mg/dl Magnesium 2.2 (1.8-2.4) mg/dl Total Bilirubin 0.6 (0.2-1) mg/dl AST 23 (15-37) U/L ALT 23 (12-78) U/L Alkaline Phosphatase 82 (45-117) U/L Total Protein 6.7 (6.4-8.2) gm/dl Albumin 2.9 L (3.4-5.0) gm/dl Globulin 3.8 (2.5-4.0) gm/dl Albumin/Globulin Ratio 0.8 L (0.9-2) Procalcitonin (0-0.5) ng/ml TSH (0.300-4.500) uIu/ml COVID-19 Eval Order SARS-CoV-2 (PCR) (Negative) Hepatitis C Ab Screen (Neg) 03/16/21 03/16/21 03/16/21 Range/Units 18:31 18:31 18:41 WBC (4.8-10.8) K/uL RBC (4.2-5.4) M/uL Hgb (12.0-16.0) g/dL Hct (37-47) % MCV (80-100) fL MCH (25-34) pg MCHC (32-36) g/dL RDW Std Deviation (36.4-46.3) fL RDW Coeff of Neftaly (11.5-14.5) % Plt Count (130-400) K/uL MPV (7.4-10.4) fL Immature Gran % (Auto) % Neut % (Auto) % Lymph % (Auto) % Mcclain % (Auto) % Eos % (Auto) % Baso % (Auto) % Neut # (Auto) (1.4-6.5) K/uL Lymph # (Auto) (1.2-3.4) K/uL Mcclain # (Auto) (0.11-0.59) K/uL Eos # (Auto) (0-0.5) K/uL Baso # (Auto) (0-0.2) K/uL Immature Gran # (Auto) (0.00-0.02) K/uL PT INR APTT PTT Ratio Sodium (136-145) mmol/L Potassium (3.5-5.1) mmol/L Chloride (98-107) mmol/L Carbon Dioxide (21-32) mmol/L Anion Gap (3-11) BUN (7-18) mg/dl Creatinine (0.6-1.2) mg/dl Est Cr Clr Drug Dosing ml/min Est GFR ( Amer) ml/min Est GFR (Non-Af Amer) ml/min BUN/Creatinine Ratio (10-20) Glucose (70-99) mg/dl Lactate 0.8 (0.4-2.0) mmol/L Calcium (8.5-10.1) mg/dl Magnesium (1.8-2.4) mg/dl Total Bilirubin (0.2-1) mg/dl AST (15-37) U/L ALT (12-78) U/L Alkaline Phosphatase (45-117) U/L Total Protein (6.4-8.2) gm/dl Albumin (3.4-5.0) gm/dl Globulin (2.5-4.0) gm/dl Albumin/Globulin Ratio (0.9-2) Procalcitonin (0-0.5) ng/ml TSH 0.315 (0.300-4.500) uIu/ml COVID-19 Eval Order Covid19 at [facility] SARS-CoV-2 (PCR) (Negative) Hepatitis C Ab Screen (Neg) 03/16/21 03/16/21 03/16/21 Range/Units 18:41 18:58 18:58 WBC (4.8-10.8) K/uL RBC (4.2-5.4) M/uL Hgb (12.0-16.0) g/dL Hct (37-47) % MCV (80-100) fL MCH (25-34) pg MCHC (32-36) g/dL RDW Std Deviation (36.4-46.3) fL RDW Coeff of Neftaly (11.5-14.5) % Plt Count (130-400) K/uL MPV (7.4-10.4) fL Immature Gran % (Auto) % Neut % (Auto) % Lymph % (Auto) % Mcclain % (Auto) % Eos % (Auto) % Baso % (Auto) % Neut # (Auto) (1.4-6.5) K/uL Lymph # (Auto) (1.2-3.4) K/uL Mcclain # (Auto) (0.11-0.59) K/uL Eos # (Auto) (0-0.5) K/uL Baso # (Auto) (0-0.2) K/uL Immature Gran # (Auto) (0.00-0.02) K/uL PT 46.0 H INR 5.2 H APTT 82.7 H* PTT Ratio 3.1 Sodium (136-145) mmol/L Potassium (3.5-5.1) mmol/L Chloride (98-107) mmol/L Carbon Dioxide (21-32) mmol/L Anion Gap (3-11) BUN (7-18) mg/dl Creatinine (0.6-1.2) mg/dl Est Cr Clr Drug Dosing ml/min Est GFR ( Amer) ml/min Est GFR (Non-Af Amer) ml/min BUN/Creatinine Ratio (10-20) Glucose (70-99) mg/dl Lactate (0.4-2.0) mmol/L Calcium (8.5-10.1) mg/dl Magnesium (1.8-2.4) mg/dl Total Bilirubin (0.2-1) mg/dl AST (15-37) U/L ALT (12-78) U/L Alkaline Phosphatase (45-117) U/L Total Protein (6.4-8.2) gm/dl Albumin (3.4-5.0) gm/dl Globulin (2.5-4.0) gm/dl Albumin/Globulin Ratio (0.9-2) Procalcitonin 0.21 (0-0.5) ng/ml TSH (0.300-4.500) uIu/ml COVID-19 Eval Order SARS-CoV-2 (PCR) NEGATIVE (Negative) Hepatitis C Ab Screen (Neg) 03/16/21 Range/Units 18:58 WBC (4.8-10.8) K/uL RBC (4.2-5.4) M/uL Hgb (12.0-16.0) g/dL Hct (37-47) % MCV (80-100) fL MCH (25-34) pg MCHC (32-36) g/dL RDW Std Deviation (36.4-46.3) fL RDW Coeff of Neftaly (11.5-14.5) % Plt Count (130-400) K/uL MPV (7.4-10.4) fL Immature Gran % (Auto) % Neut % (Auto) % Lymph % (Auto) % Mcclain % (Auto) % Eos % (Auto) % Baso % (Auto) % Neut # (Auto) (1.4-6.5) K/uL Lymph # (Auto) (1.2-3.4) K/uL Mcclain # (Auto) (0.11-0.59) K/uL Eos # (Auto) (0-0.5) K/uL Baso # (Auto) (0-0.2) K/uL Immature Gran # (Auto) (0.00-0.02) K/uL PT INR APTT PTT Ratio Sodium (136-145) mmol/L Potassium (3.5-5.1) mmol/L Chloride (98-107) mmol/L Carbon Dioxide (21-32) mmol/L Anion Gap (3-11) BUN (7-18) mg/dl Creatinine (0.6-1.2) mg/dl Est Cr Clr Drug Dosing ml/min Est GFR ( Amer) ml/min Est GFR (Non-Af Amer) ml/min BUN/Creatinine Ratio (10-20) Glucose (70-99) mg/dl Lactate (0.4-2.0) mmol/L Calcium (8.5-10.1) mg/dl Magnesium (1.8-2.4) mg/dl Total Bilirubin (0.2-1) mg/dl AST (15-37) U/L ALT (12-78) U/L Alkaline Phosphatase (45-117) U/L Total Protein (6.4-8.2) gm/dl Albumin (3.4-5.0) gm/dl Globulin (2.5-4.0) gm/dl Albumin/Globulin Ratio (0.9-2) Procalcitonin (0-0.5) ng/ml TSH (0.300-4.500) uIu/ml COVID-19 Eval Order SARS-CoV-2 (PCR) (Negative) Hepatitis C Ab Screen Neg (Neg) Administered Medications Acetaminophen (Acetaminophen 325 Mg Tab) 650 mg PO Q4H PRN PRN Reason: Pain or Fever Stop: 04/15/21 23:45 Last Admin: 03/17/21 09:07 Dose: 650 mg Documented by: [id number] Admin: 03/17/21 00:20 Dose: 650 mg Documented by: [id number] Carbidopa/Levodopa (Carbidopa/Levodopa 25/100mg Tab) 1 tab PO QID [facility] Stop: 04/16/21 08:59 Last Admin: 03/17/21 12:21 Dose: 1 tab Documented by: [id number] Admin: 03/17/21 08:54 Dose: 1 tab Documented by: [id number] Diclofenac Sodium (Diclofenac Sod 1% Gel 100 Gm Tube) 2 gm EXT QID ASHUTOSH Stop: 04/16/21 08:59 Last Admin: 03/17/21 12:22 Dose: Not Given Documented by: [id number] Admin: 03/17/21 09:03 Dose: 2 gm Documented by: [id number] Doxycycline Hyclate (Doxycycline Hyclate 100 Mg Cap) 100 mg PO BID [facility] Stop: 03/24/21 08:59 Last Admin: 03/17/21 08:54 Dose: 100 mg Documented by: [id number] Fluticasone Furoate (Fluticasone Furoate 100mcg 14 Puffs/Inhaler) 1 puffs INH DAILY ASHUTOSH Stop: 04/16/21 08:59 Last Admin: 03/17/21 09:02 Dose: 1 puffs Documented by: [id number] Fluticasone Propionate (Fluticasone Propionate Na Spr 16 Gm Btl) 2 sprays NA DAILY [facility] Stop: 04/16/21 08:59 Last Admin: 03/17/21 09:01 Dose: 2 sprays Documented by: [id number] Fluticasone/Vilanterol (Fluticasone/Vilanterol 100/25mcg 14 Puffs/Inhaler) 1 puffs INH DAILY ASHUTOS[facility] Stop: 04/16/21 08:59 Last Admin: 03/17/21 09:02 Dose: 1 puffs Documented by: [id number] Hydroxyzine HCl (Hydroxyzine Hcl 10 Mg Tab) 10 mg PO Q6H PRN PRN Reason: Anxiety Stop: 04/15/21 23:45 Last Admin: 03/17/21 00:16 Dose: 10 mg Documented by: [id number] Sodium Chloride (Nss 1000ml) 1,000 mls @ 60 mls/hr IV .[id number] ONE Stop: 03/17/21 16:25 Last Admin: 03/17/21 00:09 Dose: 60 mls/hr Documented by: [id number] Ipratropium [place] (Ipratropium [place] Neb Soln 0.02% 2.5 Ml Vial) 0.5 mg INH Q6R A[facility]UTOS[facility] Stop: 04/16/21 00:59 Last Admin: 03/17/21 13:43 Dose: 0.5 mg Documented by: [id number] Admin: 03/17/21 07:33 Dose: 0.5 mg Documented by: [id number] Admin: 03/17/21 01:04 Dose: 0.5 mg Documented by: [id number] Levalbuterol HCl (Levalbuterol 1.25mg/0.5ml Neb) 1.25 mg INH Q6R ASHUTOSH Stop: 04/16/21 00:59 Last Admin: 03/17/21 13:43 Dose: 1.25 mg Documented by: [id number] Admin: 03/17/21 07:33 Dose: 1.25 mg Documented by: [id number] Admin: 03/17/21 01:04 Dose: 1.25 mg Documented by: [id number] Levothyroxine Sodium (Levothyroxine Sodium 50 Mcg Tablet) 50 mcg PO DAILYBB ASHUTOSH Stop: 04/16/21 06:29 Last Admin: 03/17/21 06:10 Dose: 50 mcg Documented by: [id number] Metoprolol Tartrate (Metoprolol Tartrate 25 Mg Tab) 25 mg PO BID A[facility]OS[facility] Stop: 04/15/21 23:45 Last Admin: 03/17/21 09:00 Dose: 25 mg Documented by: [id number] Admin: 03/17/21 00:52 Dose: 25 mg Documented by: [id number] Multivitamins/Minerals (Cerovite Adv Formula Tab) 1 tab PO DAILY@1200 A[facility]OS[facility] Stop: 04/16/21 11:59 Last Admin: 03/17/21 12:20 Dose: 1 tab Documented by: [id number] Pantoprazole Sodium (Pantoprazole 40 Mg Tab) 40 mg PO QAM ASHUTOSH Stop: 04/16/21 08:59 Last Admin: 03/17/21 09:00 Dose: 40 mg Documented by: [id number] Ropinirole HCl (Ropinirole Hcl 1 Mg Tablet) 2 mg PO DAILY@0900,1200,1600 A[facility]OS[facility] Stop: 04/16/21 08:59 Last Admin: 03/17/21 12:21 Dose: 2 mg Documented by: [id number] Admin: 03/17/21 09:01 Dose: 2 mg Documented by: [id number] Thiamine HCl (Thiamine Hcl 100 Mg Tab) 100 mg PO BID A[facility]UTOS[facility] Stop: 04/16/21 08:59 Last Admin: 03/17/21 08:53 Dose: 100 mg Documented by: [id number] Discontinued Medications Sodium Chloride (Nss 1000ml) 1,000 mls @ 999 mls/hr IV .Q1H1M ASHUTOS[facility] Stop: 03/16/21 19:30 Last Infusion: 03/16/21 19:55 Dose: 0 mls/hr Documented by: [id number] Admin: 03/16/21 18:41 Dose: 999 mls/hr Documented by: [id number] Cefepime HCl (Maxipime) 2,000 mg in 20 mls @ 5 mls/min IV NOW STA; Protocol Stop: 03/16/21 18:23 Last Admin: 03/16/21 18:41 Dose: 5 mls/min Documented by: [id number] Daptomycin 400 mg/ Syringe 8 mls @ 4 mls/min IV NOW ONE; Protocol Stop: 03/16/21 18:21 Last Admin: 03/16/21 19:47 Dose: 4 mls/min Documented by: [id number] Lorazepam (Ativan) 0.5 mg in 1 mls @ 1 mls/min IV NOW STA Stop: 03/16/21 19:58 Last Admin: 03/16/21 21:05 Dose: 1 mls/min Documented by: [id number] Phytonadione 2.5 mg/ Sodium (Chloride) 50.25 mls @ 100.5 mls/hr IV 2100 ONE Stop: 03/16/21 21:29 Last Infusion: 03/16/21 23:49 Dose: 0 mls/hr Documented by: [id number] Admin: 03/16/21 21:06 Dose: 100.5 mls/hr Documented by: [id number] Sodium Chloride (Nss) 500 mls @ 999 mls/hr IV .Q31M ONE Stop: 03/17/21 12:10 Last Admin: 03/17/21 12:18 Dose: 999 mls/hr Documented by: [id number] Ioversol (Optiray 320 100ml) 94 ml IV ONCE ONE Stop: 03/16/21 22:19 Last Admin: 03/16/21 22:18 Dose: 94 ml Documented by: [id number] Imaging Data Radiologist's Impression: Hip CT 03/16/21 20:59 CT hip LT wo con, CT femur LT w con, CT tib/fib LT w con HISTORY: 70 years-old Female L hip pain acute pain with soft tissue swelling of the left lower extremity. Clinical concern for hematoma versus abscess. COMPARISON: Duplex venous Doppler study left lower extremity 03/15/2021 TECHNIQUE: Multiple axial CT images of the left hip, femur, tibia and fibula were obtained without the use of IV contrast. A dose lowering technique was used consistent with the principals of ANAIS. FINDINGS: HIP: Mild urinary bladder distention. No acute intrapelvic abnormality identified. Unremarkable soft tissues. No large joint effusion or intramuscular hematoma. Mild nonspecific subcutaneous edema. Demineralized appearance of the bones. Mild left hip osteoarthritis without acute fracture, dislocation or avascular necrosis. The imaged left hemipelvis appears intact. FEMUR: No acute abnormality of the imaged intrapelvic structures. Mild arterial calcifications. Bilateral total joint arthroplasties. Streak artifact from the arthroplasties limits the study. Mild subcutaneous edema of the bilateral mid to lower size. No discrete fluid collection. The musculature is within normal limits. Demineralized appearance of the bones. No acute fracture, dislocation or opaque foreign body. No suspicious bone lesions. TIBIA/FIBULA: Skin thickening with mild to moderate circumferential subcutaneous edema of the mid to lower calf and foot. Lower extremity varicosities. No intramuscular or subcutaneous fluid collections. No acute fracture or dislocation. Osteoarthritis of the foot and ankle. Demineralized appearance of the bones. IMPRESSION: 1. Mild thigh and mild to moderate mid to lower calf subcutaneous edema suggestive of cellulitis, venous stasis or lymphedema. No fluid collections. 2. Lower extremity varicosities. 3. Bilateral knee total joint arthroplasties. 4. Demineralized appearance of the bones with osteoarthritis as above. No acute fracture or dislocation. ACT 112: Negative or not required by law. The above report was generated using voice recognition software. It may contain grammatical, syntax or spelling errors. Electronically signed by: Keshawn Foster M.D. 03/17/2021 8:[address] 03/16/21 20:59 CT hip LT wo con, CT femur LT w con, CT tib/fib LT w con HISTORY: 70 years-old Female L hip pain acute pain with soft tissue swelling of the left lower extremity. Clinical concern for hematoma versus abscess. COMPARISON: Duplex venous Doppler study left lower extremity 03/15/2021 TECHNIQUE: Multiple axial CT images of the left hip, femur, tibia and fibula were obtained without the use of IV contrast. A dose lowering technique was used consistent with the principals of ALARA. FINDINGS: HIP: Mild urinary bladder distention. No acute intrapelvic abnormality identified. Unremarkable soft tissues. No large joint effusion or intramuscular hematoma. Mild nonspecific subcutaneous edema. Demineralized appearance of the bones. Mild left hip osteoarthritis without acute fracture, dislocation or avascular necrosis. The imaged left hemipelvis appears intact. FEMUR: No acute abnormality of the imaged intrapelvic structures. Mild arterial calcifications. Bilateral total joint arthroplasties. Streak artifact from the arthroplasties limits the study. Mild subcutaneous edema of the bilateral mid to lower size. No discrete fluid collection. The musculature is within normal limits. Demineralized appearance of the bones. No acute fracture, dislocation or opaque foreign body. No suspicious bone lesions. TIBIA/FIBULA: Skin thickening with mild to moderate circumferential subcutaneous edema of the mid to lower calf and foot. Lower extremity varicosities. No intramuscular or subcutaneous fluid collections. No acute fracture or dislocation. Osteoarthritis of the foot and ankle. Demineralized appearance of the bones. IMPRESSION: 1. Mild thigh and mild to moderate mid to lower calf subcutaneous edema suggestive of cellulitis, venous stasis or lymphedema. No fluid collections. 2. Lower extremity varicosities. 3. Bilateral knee total joint arthroplasties. 4. Demineralized appearance of the bones with osteoarthritis as above. No acute fracture or dislocation. ACT 112: Negative or not required by law. The above report was generated using voice recognition software. It may contain grammatical, syntax or spelling errors. Electronically signed by: Keshawn Foster M.D. 03/17/2021 8:[address] 03/16/21 21:00 CT OF THE HEAD WITHOUT CONTRAST CLINICAL HISTORY: lethargy COMPARISON STUDY: Head CT June 26, 2020. CT DOSE: 884.08 mGy.cm TECHNIQUE: Helical axial images of the head were obtained without IV contrast. Automated exposure control was utilized for the study. A dose lowering technique was utilized adhering to the principles of ALARA. FINDINGS: No acute intracranial hemorrhage, midline shift or mass effect is present. The ventricular system is unremarkable. The basal cisterns are patent. No extra-axial collections are present. There are no findings to suggest acute dural sinus thrombosis or acute territorial infarct. No significant calvarial abnormalities are present. Visualized portions of the sinuses and mastoid air cells are clear. IMPRESSION: No acute intracranial findings. ACT 112: Negative or not required by law. Electronically signed by: Norris Blackburn M.D. 03/17/2021 7:51 AM Discharge Plan Visit Data Chief Complaint: Edema To Extremity ED Provider: Julian Escobar Discharge Problem: Left leg pain, Edema, Cellulitis, Leukocytosis Patient Disposition: Admitted As Inpatient Condition: Fair Discharge Instructions Interventions: ED Discharge Assessment Last Done: 03/16/21 22:55
[2021-03-16] MEDS ORDERED: SODIUM CHLORIDE 0.9% 1000ML 1,000 ML IV SCH (18:30)
[2021-03-16 18:41] LABS: Hematocrit (blood only) 36.8 % (37-47); Hemoglobin 11.6 g/dL (12.0-16.0); Immature Granulocytes # (auto) 0.01 K/uL (0.00-0.02); Immature Granulocytes % (auto) 0.1 %; Lymphocytes # (auto) 0.62 K/uL (1.2-3.4); Lymphocytes % (auto) 4.8 %; Mean Corpuscular Hemoglobin 31.4 pg (25-34); Mean Corpuscular Hgb Conc 31.5 g/dL (32-36); Mean Corpuscular Volume 99.7 fL (80-100); Mean Platelet Volume 9.8 fL (7.4-10.4); Monocytes # (auto) 1.16 K/uL (0.11-0.59); Neutrophils # (auto) 11.13 K/uL (1.4-6.5); Neutrophils % (auto) 86.1 %; Platelet Count 200 K/uL (130-400); RDW Coefficient of Variation 14.4 % (11.5-14.5); RDW Standard Deviation 52.6 fL (36.4-46.3); Red Blood Count 3.69 M/uL (4.2-5.4); White Blood Count 12.92 K/uL (4.8-10.8)
--- NOTE | 2021-03-16 18:50 | XRay Report ---
XR chest 1V portable HISTORY: 70 years-old Female SEPSIS acute sepsis COMPARISON: Chest radiograph 01/18/2020 TECHNIQUE: Portable AP view the chest FINDINGS: Cardiac silhouette is mildly enlarged. No pneumothorax, pleural effusion, airspace consolidation or o vert pulmonary edema. Degenerative changes of the shoulders and spine. IMPRESSION: No acute process. ACT 112: Negative or not required by law. The above report was generated using voice recognition software. It may contain grammatical, syntax o r spelling errors. Electronically signed by: Keshawn Foster M.D. 03/16/2021 6:49 PM
[2021-03-16 19:01] LABS: Albumin Level 2.9 gm/dl (3.4-5.0); BUN Creatinine Ratio 22.4 (10-20); Calcium 9.5 mg/dl (8.5-10.1); Creatinine Clr Calc Pharmacy 60.5 ml/min; Est GFR (African American) 75.1 ml/min; Est GFR (Non-African American) 64.8 ml/min; Magnesium 2.2 mg/dl (1.8-2.4)
[2021-03-16 19:03] LABS: Albumin Globulin Ratio 0.8 (0.9-2); Bilirubin,Total 0.6 mg/dl (0.2-1); Globulin 3.8 gm/dl (2.5-4.0); Total Protein 6.7 gm/dl (6.4-8.2)
[2021-03-16 19:34] LABS: INR 5.2 (0.9-1.1); Partial Thromboplastin Ratio 3.1
[2021-03-16 19:39] LABS: Partial Thromboplastin Time 82.7 Seconds (21.0-31.0)
[2021-03-16] MEDS ORDERED: LORazepam 0.5 MG/1 ML VIAL IV STA (19:57)
--- NOTE | 2021-03-16 20:46 | History & Physical Report ---
Date of Service March 16, 2021 Assessment & Plan (1) Sepsis: Plan: Secondary to LLE cellulitis rule out abscess/infected hematoma Failed outpatient treatment chronic diastolic heart failure (EF 60 to 65%, TTE 2020), patient euvolemic to dry hypercoagulopathy (hx PE/DVT/protein C deficiency on Coumadin, INR supratherapeutic Rule out hematoma given petechial/purpuric lesions on surface of extremity swelling hypertension, BP on the lower side hx PVD bronchial asthma, stable anxiety/mood disorder, patient markedly anxious during encounter fibromyalgia as per records Hyperglycemia, likely prediabetes, hemoglobin A1c of 5.14 June 2019 intermittent tobacco abuse Medical telemetry CS, Doxycycline for now for cellulitis unless CT imaging shows infected fluid collection Appropriate to hold Coumadin given cutaneous bleed, Vitamin K 1 dose Further management pending CT results Nicotine patch as needed DVT prophylaxis. SCDs if INR less than 2 while Coumadin on hold RE cutaneous bleed Full code Text document was generated using [email or web address] voice recognition software. It may contain grammatical or spelling errors. Kindly contact undersigned for clarification of any documentation item in question. History of Present Illness Chief Complaint: Worsening left leg swelling Primary Care Provider: Dr. Lavern Gomez History obtained from patient and records. Medical history significant for chronic diastolic heart failure (EF 60 to 65%, TTE 2020), hypercoagulopathy (hx PE/DVT/protein C deficiency on Coumadin, hypertension, PSVT, PVD, BRANDIE (CPAP intolerance), Edenilson-Danlos syndrome, bronchial asthma, anxiety/mood disorder, fibromyalgia as per records, restless leg syndrome, history gastric bypass, intermittent tobacco abuse. Last confinement November 2020 for cellulitis of the right foot. Patient discharged on Keflex course. Few days history of left leg swelling without fever, chills. No recollection of recent trauma. Substernal chest pain which patient attributes to anxiety. Left hip pain with walking. Patient seen at urgent care yesterday. Started on Bactrim. Outpatient Dopplers done at [facility] negative for DVT. Patient noted worsening left leg swelling at home despite first doses of antibiotic Rx. Patient return to ER. She received Daptomycin and Cefepime for sepsis. 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 Allergies Allergy/AdvReac Type Severity Reaction Status Date / Time ammonia Allergy Severe FACE, Verified 03/16/21 19:08 LIPS, TONGUE EDEMA buspirone Allergy Severe NEURO Verified 03/16/21 19:08 COMPLICATIONS duloxetine Allergy Intermediate RASH Verified 03/16/21 19:08 ITCHING lisinopril Allergy Intermediate cough Verified 03/16/21 19:08 adhesive Allergy Mild skin tears Verified 03/16/21 19:08 NSAIDS (Non-Steroidal Allergy Unknown not Verified 03/16/21 19:08 Anti-Inflamma supposed to use-S/P GASTRIC BYPASS vancomycin Allergy Unknown ON [facility] MED Verified 03/16/21 19:08 LIST venlafaxine Allergy Unknown AFFECTS Verified 03/16/21 19:08 LEGS diphenhydramine AdvReac Intermediate RESTLESS Verified 03/16/21 19:08 LEGS gabapentin AdvReac Intermediate MUSCLE Verified 03/16/21 19:08 STIFFNESS POLLEN Allergy Severe FACE, Uncoded 03/16/21 19:08 LIPS, TONGUE EDEMA Dust Allergy Intermediate ROACHES,DUST Uncoded 03/16/21 19:08 MITES-CLOGGED UP SINUSES-CAN'T BREATHE Home Medications Medication Instructions Recorded Confirmed Type albuterol sulfate 90 mcg/actuation 2 puff INHALATION Q6H PRN 04/15/18 03/16/21 History aerosol inhaler (Ventolin HFA) atorvastatin 20 mg tablet 20 mg PO HS 04/15/18 03/16/21 History biotin 1,000 mcg chewable tablet 1,000 mcg PO HS 04/15/18 03/16/21 History calcium citrate 200 mg (950 mg) 650 mg PO BID 04/15/18 03/16/21 History tablet carbidopa 25 mg-levodopa 100 mg 1 tab PO QID 04/15/18 03/16/21 History tablet (Sinemet) ergocalciferol (vitamin D2) 1,250 50,000 unit PO WK 04/15/18 03/16/21 History mcg (50,000 unit) capsule fluticasone propionate 50 2 spray INTRANASAL DAILY 04/15/18 03/16/21 History mcg/actuation nasal spray,suspension (Flonase Allergy Relief) ipratropium bromide 21 mcg (0.03 1 spray INTRANASAL QID PRN 10/09/18 09/09/21 History %) nasal spray magnesium 250 mg tablet 500 mg PO HS 04/15/18 03/16/21 History omega-3s 300 cq-prs-hyr-other 1 tab PO HS 04/15/18 03/16/21 History [id number] oil 1,000 mg capsule ([place]-3 Fish Oil) omeprazole 20 mg tablet,delayed 40 mg PO QAM 04/15/18 03/16/21 History release ondansetron 4 mg disintegrating 4 mg PO Q6H PRN 04/15/18 03/16/21 History tablet sennosides 8.6 mg-docusate sodium 1 tab PO BID PRN 04/15/18 03/16/21 History 50 mg tablet (Senna-S) cyanocobalamin (vitamin B-12) 1,000 mcg IM MONTHLY 08/09/19 03/16/21 History 1,000 mcg/mL injection solution metoprolol tartrate 25 mg tablet 25 mg PO BID 08/09/19 03/16/21 History thiamine HCl (vitamin B1) 100 mg 100 mg PO BID 01/18/20 03/16/21 History tablet vit C 250 mg-vit E 90 mg-zinc 40 1 tab PO BID 01/18/20 03/16/21 History mg-copper 1 [id number] capsule (PreserVision AREDS-2) docusate sodium 50 mg capsule 50 mg PO BID PRN 11/17/20 03/16/21 History fluticasone 100 mcg-salmeterol 50 1 inh INHALATION BID 11/17/20 03/16/21 History mcg/dose blistr powdr for inhalation furosemide 40 mg tablet (Lasix) 40 mg PO DAILY PRN 11/17/20 03/16/21 History hydroxyzine HCl 25 mg tablet 25 mg PO Q6H PRN 11/17/20 03/16/21 History ipratropium 0.5 mg-albuterol 3 mg 3 ml INHALATION QID 11/17/20 03/16/21 History (2.5 mg base)/3 mL nebulization soln levothyroxine 50 mcg tablet 50 mcg PO DAILYBB 11/17/20 03/16/21 History linaclotide 290 mcg capsule 290 mcg PO DAILY@1500 11/17/20 03/16/21 History (Linzess) montelukast 10 mg tablet 10 mg PO HS 11/17/20 03/16/21 History mupirocin 2 % topical ointment 1 applic TOPICAL TID PRN 11/17/20 03/16/21 History potassium chloride 20 mEq 20 meq PO DAILY 11/17/20 03/16/21 History tablet,extended release warfarin 5 mg tablet 2.5 mg PO 6XWK 11/17/20 03/16/21 History warfarin 5 mg tablet 5 mg PO WK 11/17/20 03/16/21 History L.acidop,casei,lactis,rham-B.lact,nereyda 2 cap PO DAILY #14 cap 11/22/20 03/16/21 Rx 625 mg (10 billion cell) capsule (Advanced Probiotic) lidocaine HCl 2 % mucosal jelly 5 ml EXT BID PRN #30 ml 11/22/20 03/16/21 Rx buprenorphine 10 mcg/hour weekly 10 mcg TOPICAL WK 03/16/21 03/16/21 History transdermal patch clobetasol 0.05 % scalp solution 1 applic TOPICAL BID PRN 03/16/21 03/16/21 History diclofenac sodium 1 % topical gel 2 g TOPICAL QID 03/16/21 03/16/21 History fluticasone propionate 110 2 puff INHALATION BID 03/16/21 03/16/21 History mcg/actuation HFA aerosol inhaler (Flovent HFA) metaxalone 800 mg tablet (Skelaxin) 800 mg PO QID 03/16/21 03/16/21 History ropinirole 2 mg tablet See Rx Instructions .ROUTE .COMPLEX 03/16/21 03/16/21 History sulfamethoxazole 800 1 tab PO BID 03/16/21 03/16/21 History mg-trimethoprim 160 mg tablet triamcinolone acetonide 0.1 % 1 applic TOPICAL BID PRN 03/16/21 03/16/21 History topical cream Past Med/Surg History Medical History ADHD Asthma uses PRN INH 3-4 x wk Bulging of intervertebral disc Claustrophobia Difficult intravenous access Dysphagia Edenilson-Danlos syndrome ISAC (generalized anxiety disorder) Gastroparesis GERD (gastroesophageal reflux disease) Hearing deficit History of colon polyps History of colon polyps History of DVT (deep vein thrombosis) chronic anticoagulation History of intestinal obstruction Hyperlipidemia Hypothyroidism Osteoarthritis Osteoporosis Peripheral neuropathy Protein C deficiency Pulmonary embolism 07/2018 - treated w/ lovenox - unk etiology Renal cyst Restless leg syndrome Sleep apnea unable to tolerate CPAP Tachycardia Thoracic aortic aneurysm follows w/ Dr. Arredondo - evaluated within last 6 mo Thyroid nodule Surgical History History of abdominoplasty + hernia repair History of arthroscopy of left knee History of bilateral breast reduction surgery History of cholecystectomy History of colonoscopy History of esophagogastroduodenoscopy (EGD) History of gastric bypass History of intestinal surgery History of laparotomy History of left knee replacement History of right knee joint replacement History of tonsillectomy Hx of melanoma excision shoulder S/P hysterectomy Self extubation attempted post gastric bypass Status post biopsy of thyroid gland benign Family History Uncle Stomach cancer Other No family history of adverse response to anesthesia No pertinent family history in first degree relatives Social History Smoking Status: Never smoker Second Hand Exposure: Yes; Hx Alcohol Use: Yes Alcohol type: wine and hard liquor Hx Substance Use: No Preferred Language: Guamanian Communication Ability: Effective Visual Impairment: Limited Hearing Ability: Normal 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: No Beliefs That Will Affect Care: None Current Living Situation: Alone Current Living Situation Comment: has friends to help when needed Feels Safe at Home: Yes Safety Concerns: Feels Safe At This Time Assistive Devices: Cane and CPAP Assistive Devices Comment: uses walking stick at home per patient Review of Systems Review of Systems: As per HPI, all 10 systems reviewed, all other ROS negative Physical Exam Physical Exam: GENERAL: uncomfortable, episodic lethargy, morbidly obese, looks younger for stated age, no respiratory distress SKIN: Normal color, warm HEENT: [place] palpebral conjunctivae, no ptosis, dry buccal mucosa NECK : Supple, short neck, no tenderness CHEST : CTA, no tenderness HEART : RRR, no obvious murmurs ABDOMEN: Some distention, nontender EXTREMITIES : Tender indurated LLE with superficial petechiae/purpuric lesions , no other conspicuous deformities noted NEUROLOGIC : Episodic lethargy, no facial asymmetry, no other gross focality Results & Data Results & Data ([facility]) Vital Signs (Past 12 Hours) Vital Signs Temp Pulse Pulse Resp BP BP Pulse Ox 03/16/21 20:09 82 16 112/65 96 03/16/21 20:08 96 03/16/21 18:53 95 03/16/21 18:00 36.9 C 104 H 16 121/82 97 Laboratory Results Laboratory Results WBC 12.92 K/uL (4.8-10.8) H 03/16/21 18:31 RBC 3.69 M/uL (4.2-5.4) L 03/16/21 18:31 Hgb 11.6 g/dL (12.0-16.0) L 03/16/21 18:31 Hct 36.8 % (37-47) L 03/16/21 18:31 MCV 99.7 fL (80-100) 03/16/21 18:31 MCH 31.4 pg (25-34) 03/16/21 18: MCHC 31.5 g/dL (32-36) L 03/16/21 18:31 RDW Std Deviation 52.6 fL (36.4-46.3) H 03/16/21 18:31 RDW Coeff of [place] 14.4 % (11.5-14.5) 03/16/21 18:31 Plt Count 200 K/uL (130-400) 03/16/21 18:31 MPV 9.8 fL (7.4-10.4) 03/16/21 18:31 Immature Gran % (Auto) 0.1 % 03/16/21 18:31 Neut % (Auto) 86.1 % 03/16/21 18:31 Lymph % (Auto) 4.8 % 03/16/21 18:31 [place] % (Auto) 9.0 % 03/16/21 18:31 Eos % (Auto) 0.0 % 03/16/21 18:31 Baso % (Auto) 0.0 % 03/16/21 18:31 Neut # (Auto) 11.13 K/uL (1.4-6.5) H 03/16/21 18:31 Lymph # (Auto) 0.62 K/uL (1.2-3.4) L 03/16/21 18:31 [place] # (Auto) 1.16 K/uL (0.11-0.59) H 03/16/21 18:31 Eos # (Auto) 0.00 K/uL (0-0.5) 03/16/21 18:31 Baso # (Auto) 0.00 K/uL (0-0.2) 03/16/21 18:31 Immature Gran # (Auto) 0.01 K/uL (0.00-0.02) 03/16/21 18:31 PT 46.0 Seconds (9.0-12.0) H 03/16/21 18:58 INR 5.2 (0.9-1.1) H 03/16/21 18:58 APTT 82.7 Seconds (21.0-31.0) H* 03/16/21 18:58 PTT Ratio 3.1 03/16/21 18:58 Sodium 136 mmol/L (136-145) 03/16/21 18:31 Potassium 4.0 mmol/L (3.5-5.1) 03/16/21 18:31 Chloride 110 mmol/L (98-107) H 03/16/21 18:31 Carbon Dioxide 21 mmol/L (21-32) 03/16/21 18:31 Anion Gap 5.0 (3-11) 03/16/21 18:31 BUN 20 mg/dl (7-18) H 03/16/21 18:31 Creatinine 0.90 mg/dl (0.6-1.2) 03/16/21 18:31 Est Cr Clr Drug Dosing 60.5 ml/min 03/16/21 18:31 Est GFR ( Amer) 75.1 ml/min 03/16/21 18:31 Est GFR (Non-Af Amer) 64.8 ml/min 03/16/21 18:31 BUN/Creatinine Ratio 22.4 (10-20) H 03/16/21 18:31 Glucose 114 mg/dl (70-99) H 03/16/21 18:31 Lactate 0.8 mmol/L (0.4-2.0) 03/16/21 18:31 Calcium 9.5 mg/dl (8.5-10.1) 03/16/21 18:31 Magnesium 2.2 mg/dl (1.8-2.4) 03/16/21 18:31 Total Bilirubin 0.6 mg/dl (0.2-1) 03/16/21 18:31 AST 23 U/L (15-37) 03/16/21 18:31 ALT 23 U/L (12-78) 03/16/21 18:31 Alkaline Phosphatase 82 U/L (45-117) 03/16/21 18:31 Total Protein 6.7 gm/dl (6.4-8.2) 03/16/21 18:31 Albumin 2.9 gm/dl (3.4-5.0) L 03/16/21 18:31 Globulin 3.8 gm/dl (2.5-4.0) 03/16/21 18:31 Albumin/Globulin Ratio 0.8 (0.9-2) L 03/16/21 18:31 Procalcitonin 0.21 ng/ml (0-0.5) 03/16/21 18:58 TSH 0.315 uIu/ml (0.300-4.500) 03/16/21 18:31 COVID-19 Eval Order Covid19 at [facility] 03/16/21 18:41 SARS-CoV-2 (PCR) NEGATIVE (Negative) 03/16/21 18:41 Impressions Chest X-Ray 03/16/21 18:21 XR chest 1V portable HISTORY: 70 years-old Female SEPSIS acute sepsis COMPARISON: Chest radiograph 01/18/2020 TECHNIQUE: Portable AP view the chest FINDINGS: Cardiac silhouette is mildly enlarged. No pneumothorax, pleural effusion, airspace consolidation or overt pulmonary edema. Degenerative changes of the shoulders and spine. IMPRESSION: No acute process. ACT 112: Negative or not required by law. The above report was generated using voice recognition software. It may contain grammatical, syntax or spelling errors. Electronically signed by: Keshawn Foster M.D. 03/16/2021 6:49 PM Diagnostic Findings EKG as per my interpretation : Rate 85, NSR, LAD, LAFB, incomplete RBBB, LAE T wave abnormalities inferior leads
[2021-03-16] MEDS ORDERED: PHYTONADIONE 2.5 MG in SODIUM CHLORIDE 0.9% 50 ML IV ONE (21:00)
[2021-03-16 21:23] LABS: Hematocrit (blood only) 36.3 % (37-47); Hemoglobin 11.4 g/dL (12.0-16.0); Reticulocytes # 0.04 10^6/uL (0.02-0.10)
[2021-03-16 21:47] LABS: Ferritin 234.8 ng/ml (8-388)
[2021-03-16] MEDS ORDERED: OPTIRAY 320 100ml IV ONE (22:18)
[2021-03-16] MEDS ORDERED: SODIUM CHLORIDE 0.9% 1000ML 1,000 ML IV ONE (23:46)
[2021-03-16] MEDS ORDERED: PROMETHAZINE HCL 12.5 MG in SODIUM CHLORIDE 0.9% 50 ML IV PRN (23:46)
[2021-03-16] MEDS ORDERED: DOCUSATE SODIUM SYRUP 100 MG/10 ML UDC PO PRN (23:46)
[2021-03-16] MEDS ORDERED: DOCUSATE SODIUM/SENNA 50/8.6MG TAB PO PRN (23:46)
[2021-03-17] MEDS ORDERED: LORazepam 0.5 MG/1 ML VIAL IV PRN
[2021-03-17] MEDS: hydrOXYzine HCl 10 MG TAB PO PRN ×2 (00:16→16:09)
[2021-03-17] MEDS: ACETAMINOPHEN 325 MG TAB PO PRN ×3 (00:20→20:52)
[2021-03-17] MEDS: METOPROLOL TARTRATE 25 MG TAB PO SCH ×4 (00:52→21:19)
[2021-03-17] MEDS ORDERED: XOPENEX/ATROVENT 1.25mg/0.5MG NEB COMBO NEB SCH (01:00)
[2021-03-17] MEDS: LEVALBUTEROL 1.25MG/0.5ML NEB INH SCH ×4 (01:04→21:01)
[2021-03-17] MEDS: IPRATROPIUM BROMIDE NEB SOLN 0.02% 2.5 ML VIAL INH SCH ×4 (01:04→21:01)
[2021-03-17 03:57] LABS: Appearance Urine Clear (Clear); Bacteria Urine Automated Negative (Negative); Bilirubin Urine Negative (Negative); Blood Urine Negative (Negative); Color Urine Dark Yellow; Epithelial Cell Urine Auto >30 /lpf (0-5); Glucose Urine UA Negative (Negative); Ketones Urine Trace (Negative); Leukocyte Esterase Urine Negative (Negative); Nitrite Urine Negative (Negative); Protein Urine Trace (Negative); RBC Urine Automated 0-4 /hpf (0-4); Specific Gravity Urine 1.027 (1.000-1.030); Urobilinogen Urine Negative (Negative); pH Urine 5.5 (4.5-7.5)
[2021-03-17] MEDS: LEVOTHYROXINE SODIUM 50 MCG TABLET PO SCH (06:10)
[2021-03-17 06:47] LABS: Basophils # (auto) 0.01 K/uL (0-0.2); Basophils % (auto) 0.1 %; Eosinophils # (auto) 0.05 K/uL (0-0.5); Eosinophils % (auto) 0.5 %; Hematocrit (blood only) 32.4 % (37-47); Hemoglobin 10.1 g/dL (12.0-16.0); Immature Granulocytes # (auto) 0.02 K/uL (0.00-0.02); Immature Granulocytes % (auto) 0.2 %; Lymphocytes # (auto) 0.79 K/uL (1.2-3.4); Lymphocytes % (auto) 7.3 %; Mean Corpuscular Hemoglobin 31.4 pg (25-34); Mean Corpuscular Hgb Conc 31.2 g/dL (32-36); Mean Corpuscular Volume 100.6 fL (80-100); Mean Platelet Volume 10.1 fL (7.4-10.4); Monocytes # (auto) 0.75 K/uL (0.11-0.59); Neutrophils # (auto) 9.16 K/uL (1.4-6.5); Neutrophils % (auto) 84.9 %; Platelet Count 189 K/uL (130-400); RDW Coefficient of Variation 14.4 % (11.5-14.5); RDW Standard Deviation 53.4 fL (36.4-46.3); Red Blood Count 3.22 M/uL (4.2-5.4); White Blood Count 10.78 K/uL (4.8-10.8)
[2021-03-17 07:07] LABS: INR 1.5 (0.9-1.1); Prothrombin Time 14.3 Seconds (9.0-12.0)
[2021-03-17 07:18] LABS: BUN Creatinine Ratio 26.5 (10-20); Creatinine Clr Calc Pharmacy 77.6 ml/min; Est GFR (African American) 98.3 ml/min; Est GFR (Non-African American) 84.9 ml/min; Potassium 3.9 mmol/L (3.5-5.1)
--- NOTE | 2021-03-17 07:52 | CT Scan Report ---
CT OF THE HEAD WITHOUT CONTRAST CLINICAL HISTORY: lethargy COMPARISON STUDY: Head CT June 26, 2020. CT DOSE: 884.08 mGy.cm TECHNIQUE: Helical axial images of the head were obtained without IV contrast. Automated exposure con trol was utilized for the study. A dose lowering technique was utilized adhering to the principles o f ALARA. FINDINGS: No acute intracranial hemorrhage, midline shift or mass effect is present. The ventricular system is unremarkable. The basal cisterns are patent. No extra-axial collections are present. There are no findings to suggest acute dural sinus thrombosis or acute territorial infarct. No significant calvarial abnormalities are present. Visualized portions of the sinuses and mastoid air cells are storm ar. IMPRESSION: No acute intracranial findings. ACT 112: Negative or not required by law. Electronically signed by: Norris Blackburn M.D. 03/17/2021 7:51 AM
--- NOTE | 2021-03-17 08:30 | CT Scan Report ---
CT hip LT wo con, CT femur LT w con, CT tib/fib LT w con HISTORY: 70 years-old Female L hip pain acute pain with soft tissue swelling of the left lower extre mity. Clinical concern for hematoma versus abscess. COMPARISON: Duplex venous Doppler study left lower extremity 03/15/2021 TECHNIQUE: Multiple axial CT images of the left hip, femur, tibia and fibula were obtained without th e use of IV contrast. A dose lowering technique was used consistent with the principals of ANAIS. FINDINGS: HIP: Mild urinary bladder distention. No acute intrapelvic abnormality identified. Unremarkable soft tissu es. No large joint effusion or intramuscular hematoma. Mild nonspecific subcutaneous edema. Demineral ized appearance of the bones. Mild left hip osteoarthritis without acute fracture, dislocation or erika scular necrosis. The imaged left hemipelvis appears intact. FEMUR: No acute abnormality of the imaged intrapelvic structures. Mild arterial calcifications. Bilateral to al joint arthroplasties. Streak artifact from the arthroplasties limits the study. Mild subcutaneous edema of the bilateral mid to lower size. No discrete fluid collection. The musculature is within no rmal limits. Demineralized appearance of the bones. No acute fracture, dislocation or opaque foreign body. No suspicious bone lesions. TIBIA/FIBULA: Skin thickening with mild to moderate circumferential subcutaneous edema of the mid to lower calf and foot. Lower extremity varicosities. No intramuscular or subcutaneous fluid collections. No acute fra cture or dislocation. Osteoarthritis of the foot and ankle. Demineralized appearance of the bones. IMPRESSION: 1. Mild thigh and mild to moderate mid to lower calf subcutaneous edema suggestive of cellulitis, lizabeth ous stasis or lymphedema. No fluid collections. 2. Lower extremity varicosities. 3. Bilateral knee total joint arthroplasties. 4. Demineralized appearance of the bones with osteoarthritis as above. No acute fracture or dislocati on. ACT 112: Negative or not required by law. The above report was generated using voice recognition software. It may contain grammatical, syntax o r spelling errors. Electronically signed by: Keshawn Foster M.D. 03/17/2021 8:29 AM
[2021-03-17] MEDS: THIAMINE HCL 100 MG TAB PO SCH ×2 (08:53→20:52)
[2021-03-17] MEDS: CARBIDOPA/LEVODOPA 25/100MG TAB PO SCH ×4 (08:54→20:51)
[2021-03-17] MEDS: DOXYCYCLINE HYCLATE 100 MG CAP PO SCH ×2 (08:54→20:52)
[2021-03-17] MEDS: PANTOprazole 40 MG TAB PO SCH (09:00)
[2021-03-17] MEDS: FLUTICASONE PROPIONATE NA SPR 16 GM BTL SCH (09:01)
[2021-03-17] MEDS: rOPINIRole HCL 1 MG TABLET PO SCH ×4 (09:01→20:52)
[2021-03-17] MEDS: FLUTICASONE/VILANTEROL 100/25MCG 14 PUFFS/INHALER INH SCH (09:02)
[2021-03-17] MEDS: FLUTICASONE FUROATE 100MCG 14 PUFFS/INHALER INH SCH (09:02)
[2021-03-17] MEDS: DICLOFENAC SOD 1% GEL 100 GM TUBE EXT SCH ×4 (09:03→20:52)
[2021-03-17] MEDS ORDERED: SODIUM CHLORIDE 0.9% 500 ML IV ONE (11:40)
[2021-03-17] MEDS: CEROVITE ADV FORMULA TAB PO SCH (12:20)
--- NOTE | 2021-03-17 13:29 | Hospitalist Progress Note ---
Date of Service March 17, 2021 Assessment & Plan (1) Sepsis: Plan: - Left lower extremity cellulitis - Hyperglycemia, likely prediabetes, hemoglobin A1c of 5.14 June 2019 - Supratherapeutic INR on admission Patient presented with left lower extremity cellulitis. Was noted to have leukocytosis on admission which is resolved now. Remains afebrile. Systolic blood pressure on the soft side, ordered 500 normal saline bolus this morning. Renal function is within normal limit. LFTs are not concerning. Patient reports she was prescribed Bactrim as an outpatient, however she did not take it. Patient reports her symptoms started after taking Lasix for lower extremity swelling. We will continue doxycycline for now. CT of the lower extremities negative for any abscess. Venous duplex on 03/15 - for any DVT. Cultures were obtained on admission. INR at 1.5 today. Ordered 5 mg of Coumadin. Monitor daily INR. DVT prophylaxis. SCDs, coumadin. History of chronic diastolic heart failure (EF 60 to 65%, TTE 2020) History of hypercoagulopathy (hx PE/DVT/protein C deficiency on Coumadin History of hypertension History of PVD History of bronchial asthma, stable History of anxiety/mood disorder History of fibromyalgia as per records intermittent tobacco abuse Continue chronic daily medications including Lipitor, Sinemet, Breo, Synthyroid, electrolyte, Lopressor, Singulair, Protonix, Atrovent, Requip and multivitamins. Full code Text document was generated using [employer] voice recognition software. It may contain grammatical or spelling errors. Kindly contact undersigned for clarification of any documentation item in question. Admission and Anticipated Discharge Date Admission Date: March 16, 2021 Subjective Patient reports she feels miserable. Reports her left lower extremity is causing her discomfort. Denies any chest pain, shortness of breath, fever, nausea, vomiting, abdominal pain, diarrhea or dysuria. Systolic blood pressure on the soft side this morning. Review of Systems Review of Systems: All systems reviewed & are unremarkable except as noted in HPI & below Physical Exam Physical Exam: General: A&Ox3 HENT: NCAT, MMM, EOMI Eyes: PERRLA Neck: Supple, normal range of motion CVS: Bradycardic Resp: b/l good breath sounds Abdomen: Soft, ND/NT Extremities: Left lower extremity erythema noted, periphery petechial in nature, warm to touch Neuro: face symmetric, no gross focal deficits appreciated Skin: warm and dry, no rashes/lesions/errythema MSK: normal ROM, no joint swelling/erythema Results & Data Results & Data ([facility]) Vital Signs (Past 12 Hours) Vital Signs Temp Pulse Pulse Resp BP BP Pulse Ox 03/17/21 13:07 94/60 L 03/17/21 11:35 85/58 L 03/17/21 11:03 37.1 C 56 L 16 75/48 L 96 03/17/21 07:33 77 20 96 03/17/21 07:15 36.6 C 74 16 104/57 L 95 03/17/21 04:08 56 L 03/17/21 03:22 36.6 C 55 L 18 99/64 L 96
[2021-03-17] MEDS ORDERED: WARFARIN SOD 5 MG TAB PO ONE (14:00)
--- NOTE | 2021-03-17 15:28 | Electrocardiogram Report ---
Test Reason : Blood Pressure : / mmHG Vent. Rate : 086 BPM Atrial Rate : 086 BPM P-R Int : 172 ms QRS Dur : 100 ms QT Int : 374 ms P-R-T Axes : 030 -12 010 degrees QTc Int : 447 ms Normal sinus rhythm Possible Left atrial enlargement Incomplete right bundle branch block Borderline ECG When compared with ECG of 20-NOV-2020 15:37, Incomplete right bundle branch block Confirmed by Aman Sullivan ([id number]) on 03/17/2021 3:28:05 PM Referred By: REFERRED SELF Confirmed By:Nicanor Sullivan
[2021-03-17] MEDS: LINACLOTIDE 145 MCG CAPSULE PO SCH (16:07)
[2021-03-17] MEDS: ATORVASTATIN 20 MG TAB PO SCH (20:51)
[2021-03-17] MEDS: MONTELUKAST SODIUM 10 MG TABLET PO SCH (20:52)
[2021-03-18] MEDS: ACETAMINOPHEN 325 MG TAB PO PRN ×4 (01:59→23:26)
[2021-03-18] MEDS: LEVALBUTEROL 1.25MG/0.5ML NEB INH SCH ×4 (02:05→19:55)
[2021-03-18] MEDS: IPRATROPIUM BROMIDE NEB SOLN 0.02% 2.5 ML VIAL INH SCH ×4 (02:05→19:55)
[2021-03-18] MEDS: LEVOTHYROXINE SODIUM 50 MCG TABLET PO SCH (06:19)
[2021-03-18] MEDS: METOPROLOL TARTRATE 25 MG TAB PO SCH ×2 (08:25→20:57)
[2021-03-18] MEDS: CARBIDOPA/LEVODOPA 25/100MG TAB PO SCH ×4 (08:25→20:57)
[2021-03-18] MEDS: DOXYCYCLINE HYCLATE 100 MG CAP PO SCH (08:25)
[2021-03-18] MEDS: rOPINIRole HCL 1 MG TABLET PO SCH ×4 (08:25→20:57)
[2021-03-18] MEDS: DICLOFENAC SOD 1% GEL 100 GM TUBE EXT SCH ×4 (08:25→21:00)
[2021-03-18] MEDS: THIAMINE HCL 100 MG TAB PO SCH ×2 (08:27→20:58)
[2021-03-18] MEDS: PANTOprazole 40 MG TAB PO SCH (08:27)
[2021-03-18] MEDS: hydrOXYzine HCl 10 MG TAB PO PRN ×2 (08:28→23:26)
[2021-03-18] MEDS: CEROVITE ADV FORMULA TAB PO SCH (08:28)
[2021-03-18] MEDS: FLUTICASONE/VILANTEROL 100/25MCG 14 PUFFS/INHALER INH SCH (08:29)
[2021-03-18] MEDS: FLUTICASONE FUROATE 100MCG 14 PUFFS/INHALER INH SCH (08:29)
[2021-03-18] MEDS: FLUTICASONE PROPIONATE NA SPR 16 GM BTL SCH (08:29)
--- NOTE | 2021-03-18 12:52 | Hospitalist Progress Note ---
Date of Service March 18, 2021 Assessment & Plan (1) Sepsis: Plan: Resuscitated with broad-spectrum antibiotics and fluids given in the ER. Continue treatment for lower extremity cellulitis. (2) Cellulitis of left leg: Plan: She is clinically improved but not feeling well and still with evidence of cellulitis in her left lower extremity. Will switch p.o. doxycycline to IV antibiotics to hasten clinical response. 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 IV antibiotics may penetrate this area faster. She does have a minor closed scrape on the anterior side of her left ankle, which may have been the cause. She also had a trauma to her left thigh a couple weeks ago which in the setting of a supratherapeutic INR has caused some traumatic ecchymosis of the left lower leg in the posterior thigh and posterior calf areas. All of this is adding to the increased temperature of her leg with increased levels of inflammation. Continue support aileen care efforts and RLS medications. (3) Traumatic ecchymosis of left lower leg: Plan: Supratherapeutic INR of 5.2 on admission. This was reversed with vitamin K and she is now subtherapeutic. She is on Coumadin for history of recurrent DVT/PE. She is currently hemodynamically stable. With the large area of ecchymosis that needs to be cleared we will hold Coumadin for a couple of days and monitor clinical response. Encouraged patient to move as able in order PT/OT. This will help mobilize inflammatory components and minimize swelling. MABLE hose is another option. (4) Ambulatory dysfunction: Plan: Secondary to generalized physical deconditioning and morbid obesity. PT/OT ordered. (5) Peripheral neuropathy: Plan: Chronic peripheral neuropathy and restless leg syndrome. Continue home medications including Sinemet and ropinirole. Patient is also now on a buprenorphine patch which is being titrated to effect. (6) Restless leg syndrome: Plan: See plan above (7) ISAC (generalized anxiety disorder): Plan: Vistaril as needed per home regimen. (8) Edenilson-Danlos syndrome: (9) DVT prophylaxis: Plan: SCD/ambulation as tolerated-holding warfarin per plan above Full code Disposition-sent to home when PT/OT clears her as safe to return home and when she is showing signs of improvement in ecchymosis and cellulitis of her left lower extremity. Leny Breen DO [facility] Hospitalist (10) Chronic pain: (11) Obesity: Admission and Anticipated Discharge Date Admission Date: March 16, 2021 Subjective 70-year-old female with nondiabetic peripheral neuropathy presented with sepsis secondary to lower extremity cellulitis. On presentation she had a supratherapeutic INR of 5.2 and is on Coumadin for recurrent blood clot historically. She was administered vitamin K and has a subtherapeutic INR at this time. She has extensive ecchymosis along the posterior left thigh and calf area and is secondary cellulitis on her left foot and distal leg. She has been feeling improved after receiving IV antibiotics in the ER and being on doxycycline, however the erythema in her leg is pronounced. She denies fevers or chills at this time but does not feel well. She has multiple issues with restless leg syndrome and chronic pain and is working to get this controlled. She is working with her primary care doctor to increase a buprenorphine patch. She is otherwise tolerating p.o. Review of Systems 2 Review of Systems: At least ten systems were reviewed and negative except as indicated in HPI above. Physical Exam Physical Exam: CONSTITUTIONAL: obese, vitals as above, generally NAD EYES: normal conjunctivae, no scleral icterus ENT: external ear and nose normal, MMM NECK: trachea midline RESPIRATORY: clear to auscultation bilaterally, no crackles, rales or wheezes, normal respiratory effort CARDIOVASCULAR: regular rate and rhythm, S1 and 2 heard without murmurs, gallops or rubs, no JVD, no peripheral edema GASTROINTESTINAL: soft, nontender, nondistended, no guarding MUSCULOSKELETAL: generalized deconditioning, some difficulty moving around in the bed independently, head is normocephalic and atraumatic SKIN: warm and dry, large bright red/purple ecchymotic area on left posterior thigh and left calf-dependent distribution with patient supine. Also has light pink area of erythema and distal left leg longterm up the lower leg which includes the foot. There is trace swelling but no pitting edema and an overall increase in temperature of the left leg compared to the right. Left leg with 2+ distal pulses in the dorsalis pedis NEUROLOGIC: No facial palsy, no dysarthria. CN 2-12 grossly intact, no sensory deficit, normal cognition, normal speech, no tremor PSYCHIATRIC: alert cooperative and oriented to person, place and time. Results & Data Results & Data ([facility]) Vital Signs (Past 12 Hours) Vital Signs Temp Pulse Pulse Resp BP Pulse Ox 03/18/21 11:15 36.8 C 67 20 112/69 98 03/18/21 07:37 36.6 C 84 20 101/64 03/18/21 07:29 76 20 96 03/18/21 07:18 75 03/18/21 03:21 36.5 C 69 18 99/64 L 94 03/18/21 02:06 68 18 97 03/18/21 01:52 72 Laboratory Results Short CBC 03/18/21 Range/Units 15:30 WBC 7.47 (4.8-10.8) K/uL Hgb 10.6 L (12.0-16.0) g/dL Hct 33.6 L (37-47) % Plt Count 215 (130-400) K/uL BMP 03/18/21 15:30 Sodium 139 Potassium 4.2 Chloride 112 H Carbon Dioxide 21 BUN 24 H Creatinine 0.78 Glucose 139 H Calcium 8.9 Cardiac Enzymes 03/18/21 Range/Units 15:30 Total Creatine Kinase 93 (26-192) U/L Medications Administered Current Inpatient Medications Acetaminophen (Acetaminophen 325 Mg Tab) 650 mg PO Q4H PRN PRN Reason: Pain or Fever Stop: 04/15/21 23:45 Last Admin: 03/18/21 08:35 Dose: 650 mg Documented by: Atorvastatin Calcium (Atorvastatin 20 Mg Tab) 20 mg PO HS [facility] Stop: 04/16/21 20:59 Last Admin: 03/17/21 20:51 Dose: 20 mg Documented by: Carbidopa/Levodopa (Carbidopa/Levodopa 25/100mg Tab) 1 tab PO QID [facility] Stop: 04/16/21 08:59 Last Admin: 03/18/21 12:17 Dose: 1 tab Documented by: Diclofenac Sodium (Diclofenac Sod 1% Gel 100 Gm Tube) 2 gm EXT QID [facility] Stop: 04/16/21 08:59 Last Admin: 03/18/21 12:17 Dose: Not Given Documented by: Docusate Sodium (Docusate Sodium Syrup 100 Mg/10 Ml Udc) 50 mg PO BID PRN PRN Reason: Constipation Doxycycline Hyclate (Doxycycline Hyclate 100 Mg Cap) 100 mg PO BID [facility] Stop: 03/24/21 08:59 Last Admin: 03/18/21 08:25 Dose: 100 mg Documented by: Fluticasone Furoate (Fluticasone Furoate 100mcg 14 Puffs/Inhaler) 1 puffs INH DAILY [facility] Stop: 04/16/21 08:59 Last Admin: 03/18/21 08:29 Dose: 1 puffs Documented by: Fluticasone Propionate (Fluticasone Propionate Na Spr 16 Gm Btl) 2 sprays NA DAILY [facility] Stop: 04/16/21 08:59 Last Admin: 03/18/21 08:29 Dose: 2 sprays Documented by: Fluticasone/Vilanterol (Fluticasone/Vilanterol 100/25mcg 14 Puffs/Inhaler) 1 puffs INH DAILY [facility] Stop: 04/16/21 08:59 Last Admin: 03/18/21 08:29 Dose: 1 puffs Documented by: Hydroxyzine HCl (Hydroxyzine Hcl 10 Mg Tab) 10 mg PO Q6H PRN PRN Reason: Anxiety Stop: 04/15/21 23:45 Last Admin: 03/18/21 08:28 Dose: 10 mg Documented by: Promethazine HCl 12.5 mg/ (Sodium Chloride) 50.5 mls @ 202 mls/hr IV Q6H PRN PRN Reason: Nausea And Vomiting Stop: 04/15/21 23:45 Lorazepam (Ativan) 0.5 mg in 1 mls @ 1 mls/min IV Q4H PRN PRN Reason: Anxiety/Agitation Stop: 04/16/21 00:00 Ipratropium [place] (Ipratropium [place] Neb Soln 0.02% 2.5 Ml Vial) 0.5 mg INH Q6R [facility] Stop: 04/16/21 00:59 Last Admin: 03/18/21 07:27 Dose: 0.5 mg Documented by: Levalbuterol HCl (Levalbuterol 1.25mg/0.5ml Neb) 1.25 mg INH Q6R [facility] Stop: 04/16/21 00:59 Last Admin: 03/18/21 07:28 Dose: 1.25 mg Documented by: Levothyroxine Sodium (Levothyroxine Sodium 50 Mcg Tablet) 50 mcg PO DAILYBB [facility] Stop: 04/16/21 06:29 Last Admin: 03/18/21 06:19 Dose: 50 mcg Documented by: Linaclotide (Linaclotide 145 Mcg Capsule) 290 mcg PO DAILY@1500 [facility] Stop: 04/16/21 14:59 Last Admin: 03/17/21 16:07 Dose: 290 mcg Documented by: Metoprolol Tartrate (Metoprolol Tartrate 25 Mg Tab) 12.5 mg PO BID [facility] Stop: 04/16/21 21:14 Last Admin: 03/18/21 08:25 Dose: 12.5 mg Documented by: Montelukast Sodium (Montelukast Sodium 10 Mg Tablet) 10 mg PO [facility] Stop: 04/16/21 20:59 Last Admin: 03/17/21 20:52 Dose: 10 mg Documented by: Multivitamins/Minerals (Cerovite Adv Formula Tab) 1 tab PO DAILY@1200 [facility] Stop: 04/16/21 11:59 Last Admin: 03/18/21 08:28 Dose: 1 tab Documented by: Pantoprazole Sodium (Pantoprazole 40 Mg Tab) 40 mg PO QAM [facility] Stop: 04/16/21 08:59 Last Admin: 03/18/21 08:27 Dose: 40 mg Documented by: Ropinirole HCl (Ropinirole Hcl 1 Mg Tablet) 2 mg PO DAILY@0900,1200,1600 [facility] Stop: 04/16/21 08:59 Last Admin: 03/18/21 12:17 Dose: 2 mg Documented by: Ropinirole HCl (Ropinirole Hcl 1 Mg Tablet) 4 mg PO [facility] Stop: 04/16/21 20:59 Last Admin: 03/17/21 20:52 Dose: 4 mg Documented by: Senna/Docusate Sodium (Docusate Sodium/Senna 50/8.6mg Tab) 1 tab PO BID PRN PRN Reason: Constipation Stop: 04/15/21 23:45 Thiamine HCl (Thiamine Hcl 100 Mg Tab) 100 mg PO BID [facility] Stop: 04/16/21 08:59 Last Admin: 03/18/21 08:27 Dose: 100 mg Documented by: (1) Sepsis Sepsis type: sepsis due to unspecified organism Sepsis acute organ dysfunction status: without acute organ dysfunction Qualified Code(s): A41.9 - Sepsis, unspecified organism (2) Peripheral neuropathy Peripheral neuropathy type: idiopathic neuropathy, unspecified Qualified Code(s): G60.9 - Hereditary and idiopathic neuropathy, unspecified (3) Traumatic ecchymosis of left lower leg Encounter type: sequela Qualified Code(s): S80.12XS - Contusion of left lower leg, sequela
[2021-03-18 15:43] LABS: Basophils # (auto) 0.02 K/uL (0-0.2); Basophils % (auto) 0.3 %; Eosinophils # (auto) 0.12 K/uL (0-0.5); Eosinophils % (auto) 1.6 %; Hematocrit (blood only) 33.6 % (37-47); Hemoglobin 10.6 g/dL (12.0-16.0); Immature Granulocytes # (auto) 0.02 K/uL (0.00-0.02); Immature Granulocytes % (auto) 0.3 %; Mean Corpuscular Hemoglobin 31.4 pg (25-34); Mean Corpuscular Hgb Conc 31.5 g/dL (32-36); Mean Corpuscular Volume 99.4 fL (80-100); Mean Platelet Volume 9.8 fL (7.4-10.4); Monocytes # (auto) 0.64 K/uL (0.11-0.59); Monocytes % (auto) 8.6 %; Neutrophils # (auto) 6.07 K/uL (1.4-6.5); Neutrophils % (auto) 81.2 %; Platelet Count 215 K/uL (130-400); RDW Coefficient of Variation 14.6 % (11.5-14.5); RDW Standard Deviation 52.1 fL (36.4-46.3); Red Blood Count 3.38 M/uL (4.2-5.4); White Blood Count 7.47 K/uL (4.8-10.8)
[2021-03-18 16:00] LABS: BUN Creatinine Ratio 31.5 (10-20); Calcium 8.9 mg/dl (8.5-10.1); Creatinine Clr Calc Pharmacy 72.3 ml/min; Est GFR (African American) 89.3 ml/min; Potassium 4.2 mmol/L (3.5-5.1)
[2021-03-18] MEDS: ceFAZolin 1000MG 1,000 MG/7.5 ML SYR IV SCH (16:15)
[2021-03-18] MEDS: LINACLOTIDE 145 MCG CAPSULE PO SCH (16:15)
[2021-03-18] MEDS ORDERED: traMADol HCL 50 MG TABLET PO STA (16:20)
[2021-03-18] MEDS: ATORVASTATIN 20 MG TAB PO SCH (20:57)
[2021-03-18] MEDS: MONTELUKAST SODIUM 10 MG TABLET PO SCH (20:57)
[2021-03-19] MEDS: ceFAZolin 1000MG 1,000 MG/7.5 ML SYR IV SCH ×4 (00:09→23:50)
[2021-03-19] MEDS: IPRATROPIUM BROMIDE NEB SOLN 0.02% 2.5 ML VIAL INH SCH ×4 (00:27→19:43)
[2021-03-19] MEDS: LEVALBUTEROL 1.25MG/0.5ML NEB INH SCH ×4 (00:27→19:43)
[2021-03-19] MEDS: traMADol HCL 50 MG TABLET PO PRN ×4 (01:25→23:50)
[2021-03-19] MEDS: LEVOTHYROXINE SODIUM 50 MCG TABLET PO SCH (06:04)
[2021-03-19] MEDS ORDERED: rOPINIRole HCL 1 MG TABLET PO ONE (07:30)
--- NOTE | 2021-03-19 08:06 | Hospitalist Progress Note ---
Date of Service March 19, 2021 Assessment & Plan (1) Sepsis: Plan: Resuscitated with broad-spectrum antibiotics and fluids given in the ER. Continue treatment for lower extremity cellulitis per plan below. (2) Cellulitis of left leg: Plan: Cellulitis has improved overnight on IV cefazolin started yesterday. Afebrile, cont current course. Leukocytosis has resolved (prior to starting IV cefa zolin). Continue supportive care efforts and RLS medications. If continues to do well overnight, would consider OK for discharge on PO medications. (3) Traumatic ecchymosis of left lower leg: Plan: Supratherapeutic INR of 5.2 on admission. This was reversed with vitamin K and she is now subtherapeutic. She is on Coumadin for history of recurrent DVT/PE. She is currently hemodynamically stable with stable H/H. With the large area of ecchymosis that needs to be cleared we will hold Coumadin for a couple of days and monitor clinical response. Ecchymosis appears improved today. she also has other areas of ecchymosis present on her arms from phlebotomy attempts that she noted are not clearing as fast as they normally do. Encouraged patient to move as able in order PT/OT. This will help mobilize inflammatory components and minimize swelling. She declined TEDs. (4) Ambulatory dysfunction: Plan: Secondary to generalized physical deconditioning and morbid obesity. PT/OT ordered. (5) Peripheral neuropathy: Plan: Chronic peripheral neuropathy and restless leg syndrome. Continue home medications including Sinemet and ropinirole. Patient is also now on a buprenorphine patch which is being titrated to effect. Reports she is due to increase her patch from 10mcg weely to 15mcg weekly starting tomorrow. This was ordered and confirmed with the pharmacist. She is being prescribed this patch by her PCP as outpatient. (6) Restless leg syndrome: Plan: See plan above (7) ISAC (generalized anxiety disorder): Plan: Vistaril as needed per home regimen. Encouraged to avoid benzos out of concern for possible medication interactions including with tramadol (new for her), Butrans patch (being titrated up tomorrow and also new for her), high doses of ropinirole. However, if she feels like she is having a panic attack she is to notify the nurse immediately. She verbalized understanding. (8) Edenilson-Danlos syndrome: (9) Chronic pain: Plan: Continue current home medications including Sinemet, ropinirole and as needed tramadol. Butrans patch is being adjusted from 10 mcg weekly to 50 mcg weekly starting tomorrow (Saturday) (10) Obesity: (11) [facility] current use of anticoagulant therapy: Plan: Chronic Coumadin use secondary to recurrent DVT/PE. Currently warfarin is on hold while ecchymosis is clearing. Will consider restarting this tomorrow if she has continued improvement. (12) DVT prophylaxis: Plan: SCD/ambulation as tolerated-holding warfarin per plan above Full code Disposition-sent to home when PT/OT clears her as safe to return home and when she is showing signs of improvement in ecchymosis and cellulitis of her left lower extremity. DO Jeremy [facility] Hospitalist Admission and Anticipated Discharge Date Admission Date: March 16, 2021 Subjective 70-year-old female with nondiabetic peripheral neuropathy presented with sepsis secondary to lower extremity cellulitis. This morning she is feeling poorly and reports that her restless leg syndrome is worse. She reports an increase in anxiety secondary to her medications not being time correctly. This was corrected and confirmed with the pharmacist this morning. She reported after the correction was made this helped to decrease her anxiety but also requests something different for anxiety than Vistaril. We dis cussed that in the face of new tramadol, Butrans patch and ropinirole at current doses, additional benzodiazepine medication is not hernandez. However, if she is having a panic attack or gets to an uncontrolled level, she should notify the nurse immediately who can page me. Erythema on the cefazolin started yesterday is improved in her left lower extremity. Ecchymosis in the left posterior thigh and calf is improved. Patient reports some increased temperature and heat in her left leg for which she was using a pillowcase soaked in water overnight. She is ambulating to and from the bathroom and was encouraged to continue doing this. She currently declines use of MABLE hose because of pain and discomfort. Tolerating p.o. Afebrile. Review of Systems Review of Systems: At least ten systems were reviewed and negative except as indicated in HPI above. Physical Exam Physical Exam: CONSTITUTIONAL: obese, vitals as above, generally NAD EYES: normal conjunctivae, no scleral icterus ENT: external ear and nose normal, MMM NECK: trachea midline RESPIRATORY: clear to auscultation bilaterally, no crackles, rales or wheezes, normal respiratory effort CARDIOVASCULAR: regular rate and rhythm, S1 and 2 heard without murmurs, gallops or rubs, no JVD, no peripheral edema GASTROINTESTINAL: soft, nontender, nondistended, no guarding MUSCULOSKELETAL: generalized deconditioning, some difficulty moving around in the bed independently, head is normocephalic and atraumatic SKIN: warm and dry, large bright red/purple ecchymotic area on left posterior thigh and left calf-dependent distribution with patient supine-starting to clear. Also has light pink area of erythema and distal left leg half-way up the lower leg which includes the foot-this is improved today-wire spiral binder in color.. There is trace swelling but no pitting edema and an overall increase in temperature of the left leg compared to the right. Left leg with 2+ distal pulses in the dorsalis pedis. Multiple calluses noted on left foot, POA. NEUROLOGIC: No facial palsy, no dysarthria. CN 2-12 grossly intact, no sensory deficit, normal cognition, normal speech, no tremor PSYCHIATRIC: alert cooperative and oriented to person, place and time. Results & Data Results & Data ([facility]) Vital Signs (Past 12 Hours) Vital Signs Temp Pulse Pulse Resp BP Pulse Ox 03/19/21 07:45 64 18 97 03/19/21 07:42 36.4 C L 72 80 H 106/72 03/19/21 07:13 66 03/19/21 02:56 36.7 C 76 18 101/61 96 03/19/21 01:40 88 03/19/21 00:28 72 20 94 03/18/21 23:21 36.4 C L 72 16 100/66 96 03/18/21 19:55 91 H 20 97 Laboratory Results Short CBC 03/18/21 Range/Units 15:30 WBC 7.47 (4.8-10.8) K/uL Hgb 10.6 L (12.0-16.0) g/dL Hct 33.6 L (37-47) % Plt Count 215 (130-400) K/uL BMP 03/18/21 15:30 Sodium 139 Potassium 4.2 Chloride 112 H Carbon Dioxide 21 BUN 24 H Creatinine 0.78 Glucose 139 H Calcium 8.9 Cardiac Enzymes 03/18/21 Range/Units 15:30 Total Creatine Kinase 93 (26-192) U/L Medications Administered Current Inpatient Medications Acetaminophen (Acetaminophen 325 Mg Tab) 650 mg PO Q4H PRN PRN Reason: Pain or Fever Stop: 04/15/21 23:45 Last Admin: 03/18/21 23:26 Dose: 650 mg Documented by: Atorvastatin Calcium (Atorvastatin 20 Mg Tab) 20 mg PO HS [facility] Stop: 04/16/21 20:59 Last Admin: 03/18/21 20:57 Dose: 20 mg Documented by: Buprenorphine HCl (Buprenorphine 5 Mcg/Hr Tdsy) 15 mcg TD Q7D@0800 [facility] Stop: 04/19/21 07:59 Carbidopa/Levodopa (Carbidopa/Levodopa 25/100mg Tab) 1 tab PO 0000,0600,1200,1800 [facility] Stop: 04/18/21 07:29 Diclofenac Sodium (Diclofenac Sod 1% Gel 100 Gm Tube) 2 gm EXT QID [facility] Stop: 04/16/21 08:59 Last Admin: 03/18/21 21:00 Dose: 2 gm Documented by: Docusate Sodium (Docusate Sodium Syrup 100 Mg/10 Ml Udc) 50 mg PO BID PRN PRN Reason: Constipation Fluticasone Furoate (Fluticasone Furoate 100mcg 14 Puffs/Inhaler) 1 puffs INH DAILY [facility] Stop: 04/16/21 08:59 Last Admin: 03/18/21 08:29 Dose: 1 puffs Documented by: Fluticasone Propionate (Fluticasone Propionate Na Spr 16 Gm Btl) 2 sprays NA DAILY [facility] Stop: 04/16/21 08:59 Last Admin: 03/18/21 08:29 Dose: 2 sprays Documented by: Fluticasone/Vilanterol (Fluticasone/Vilanterol 100/25mcg 14 Puffs/Inhaler) 1 puffs INH DAILY [facility] Stop: 04/16/21 08:59 Last Admin: 03/18/21 08:29 Dose: 1 puffs Documented by: Hydroxyzine HCl (Hydroxyzine Hcl 10 Mg Tab) 10 mg PO Q6H PRN PRN Reason: Anxiety Stop: 04/15/21 23:45 Last Admin: 03/18/21 23:26 Dose: 10 mg Documented by: Lorazepam (Ativan) 0.5 mg in 1 mls @ 1 mls/min IV Q4H PRN PRN Reason: Anxiety/Agitation Stop: 04/16/21 00:00 Cefazolin Sodium (Ancef 1000mg) 1,000 mg in 7.5 mls @ 2.5 mls/min IV Q8H [facility]; Protocol Stop: 03/25/21 15:59 Last Admin: 03/19/21 00:09 Dose: 2.5 mls/min Documented by: Ipratropium [place] (Ipratropium [place] Neb Soln 0.02% 2.5 Ml Vial) 0.5 mg INH Q6R [facility] Stop: 04/16/21 00:59 Last Admin: 03/19/21 07:44 Dose: 0.5 mg Documented by: Levalbuterol HCl (Levalbuterol 1.25mg/0.5ml Neb) 1.25 mg INH Q6R [facility] Stop: 04/16/21 00:59 Last Admin: 03/19/21 07:44 Dose: 1.25 mg Documented by: Levothyroxine Sodium (Levothyroxine Sodium 50 Mcg Tablet) 50 mcg PO DAILYBB [facility] Stop: 04/16/21 06:29 Last Admin: 03/19/21 06:04 Dose: 50 mcg Documented by: Linaclotide (Linaclotide 145 Mcg Capsule) 290 mcg PO DAILY@1500 [facility] Stop: 04/16/21 14:59 Last Admin: 03/18/21 16:15 Dose: 290 mcg Documented by: Metoprolol Tartrate (Metoprolol Tartrate 25 Mg Tab) 12.5 mg PO BID [facility] Stop: 04/16/21 21:14 Last Admin: 03/18/21 20:57 Dose: 12.5 mg Documented by: Miscellaneous (Butrans Patch Remove & Waste) 3 ea N/A Q7D@0759 [facility] Stop: 04/19/21 07:58 Miscellaneous (Check Butrans Patch Placement) 1 ea N/A QS [facility] Stop: 04/18/21 07:59 Montelukast Sodium (Montelukast Sodium 10 Mg Tablet) 10 mg PO HS [facility] Stop: 04/16/21 20:59 Last Admin: 03/18/21 20:57 Dose: 10 mg Documented by: Multivitamins/Minerals (Cerovite Adv Formula Tab) 1 tab PO DAILY@1200 [facility] Stop: 04/16/21 11:59 Last Admin: 03/18/21 08:28 Dose: 1 tab Documented by: Pantoprazole Sodium (Pantoprazole 40 Mg Tab) 40 mg PO QAM [facility] Stop: 04/16/21 08:59 Last Admin: 03/18/21 08:27 Dose: 40 mg Documented by: Ropinirole HCl (Ropinirole Hcl 1 Mg Tablet) 2 mg PO DAILY@0600,1200,1800 [facility] Stop: 04/18/21 11:59 Ropinirole HCl (Ropinirole Hcl 1 Mg Tablet) 4 mg PO DAILY@2330 [facility] Stop: 04/18/21 23:29 Senna/Docusate Sodium (Docusate Sodium/Senna 50/8.6mg Tab) 1 tab PO BID PRN PRN Reason: Constipation Stop: 04/15/21 23:45 Thiamine HCl (Thiamine Hcl 100 Mg Tab) 100 mg PO BID [facility] Stop: 04/16/21 08:59 Last Admin: 03/18/21 20:58 Dose: 100 mg Documented by: Tramadol HCl (Tramadol Hcl 50 Mg Tablet) 50 mg PO Q4H PRN PRN Reason: Pain Stop: 04/17/21 16:19 Last Admin: 03/19/21 06:08 Dose: 50 mg Documented by: (1) Traumatic ecchymosis of left lower leg Encounter type: sequela Qualified Code(s): S80.12XS - Contusion of left lower leg, sequela (2) Peripheral neuropathy Peripheral neuropathy type: idiopathic neuropathy, unspecified Qualified Code(s): G60.9 - Hereditary and idiopathic neuropathy, unspecified (3) Sepsis Sepsis acute organ dysfunction status: without acute organ dysfunction Sepsis type: sepsis due to unspecified organism Qualified Code(s): A41.9 - Sepsis, unspecified organism
[2021-03-19] MEDS: hydrOXYzine HCl 10 MG TAB PO PRN ×2 (08:49→20:30)
[2021-03-19] MEDS: FLUTICASONE/VILANTEROL 100/25MCG 14 PUFFS/INHALER INH SCH (08:50)
[2021-03-19] MEDS: FLUTICASONE PROPIONATE NA SPR 16 GM BTL SCH (08:50)
[2021-03-19] MEDS: METOPROLOL TARTRATE 25 MG TAB PO SCH ×2 (08:51→20:25)
[2021-03-19] MEDS: PANTOprazole 40 MG TAB PO SCH (08:53)
[2021-03-19] MEDS: CARBIDOPA/LEVODOPA 25/100MG TAB PO SCH ×4 (08:56→23:50)
[2021-03-19] MEDS: THIAMINE HCL 100 MG TAB PO SCH ×2 (08:57→20:24)
[2021-03-19] MEDS: FLUTICASONE FUROATE 100MCG 14 PUFFS/INHALER INH SCH (08:57)
[2021-03-19] MEDS: DICLOFENAC SOD 1% GEL 100 GM TUBE EXT SCH ×4 (08:58→20:28)
[2021-03-19] MEDS: [UNRECOGNIZED DRUG - OTHER] SCH ×3 (08:59→23:52)
[2021-03-19] MEDS: rOPINIRole HCL 1 MG TABLET PO SCH ×2 (12:57→17:48)
[2021-03-19] MEDS: CEROVITE ADV FORMULA TAB PO SCH (12:59)
[2021-03-19] MEDS: LINACLOTIDE 145 MCG CAPSULE PO SCH (16:24)
[2021-03-19] MEDS: MONTELUKAST SODIUM 10 MG TABLET PO SCH (20:24)
[2021-03-19] MEDS: ATORVASTATIN 20 MG TAB PO SCH (20:26)
[2021-03-19] MEDS: ACETAMINOPHEN 325 MG TAB PO PRN (22:33)
[2021-03-19] MEDS ORDERED: rOPINIRole HCL 1 MG TABLET PO SCH (23:30)
[2021-03-20] MEDS: IPRATROPIUM BROMIDE NEB SOLN 0.02% 2.5 ML VIAL INH SCH ×2 (00:41→07:34)
[2021-03-20] MEDS: LEVALBUTEROL 1.25MG/0.5ML NEB INH SCH ×2 (00:41→07:34)
[2021-03-20] MEDS: rOPINIRole HCL 1 MG TABLET PO SCH ×2 (05:52→12:03)
[2021-03-20] MEDS: LEVOTHYROXINE SODIUM 50 MCG TABLET PO SCH (05:52)
[2021-03-20] MEDS: CARBIDOPA/LEVODOPA 25/100MG TAB PO SCH ×2 (05:53→12:02)
[2021-03-20] MEDS: ceFAZolin 1000MG 1,000 MG/7.5 ML SYR IV SCH (07:41)
[2021-03-20] MEDS: METOPROLOL TARTRATE 25 MG TAB PO SCH (07:42)
[2021-03-20] MEDS: FLUTICASONE/VILANTEROL 100/25MCG 14 PUFFS/INHALER INH SCH (07:42)
[2021-03-20] MEDS: DICLOFENAC SOD 1% GEL 100 GM TUBE EXT SCH ×2 (07:42→12:04)
[2021-03-20] MEDS: PANTOprazole 40 MG TAB PO SCH (07:43)
[2021-03-20] MEDS: THIAMINE HCL 100 MG TAB PO SCH (07:43)
[2021-03-20] MEDS: FLUTICASONE FUROATE 100MCG 14 PUFFS/INHALER INH SCH (07:50)
[2021-03-20] MEDS: FLUTICASONE PROPIONATE NA SPR 16 GM BTL SCH (07:51)
[2021-03-20] MEDS ORDERED: BUTRANS PATCH REMOVE & WASTE SCH (07:59)
[2021-03-20] MEDS: [UNRECOGNIZED DRUG - OTHER] SCH (08:00)
[2021-03-20] MEDS ORDERED: BUPRENORPHINE 5 MCG/HR TDSY TD SCH (08:00)
[2021-03-20 08:03] LABS: Hematocrit (blood only) 33.4 % (37-47); Hemoglobin 10.4 g/dL (12.0-16.0); Mean Corpuscular Hemoglobin 31.5 pg (25-34); Mean Corpuscular Hgb Conc 31.1 g/dL (32-36); Mean Corpuscular Volume 101.2 fL (80-100); Mean Platelet Volume 9.4 fL (7.4-10.4); Platelet Count 241 K/uL (130-400); RDW Coefficient of Variation 14.4 % (11.5-14.5); RDW Standard Deviation 53.3 fL (36.4-46.3); White Blood Count 5.78 K/uL (4.8-10.8)
[2021-03-20 08:38] LABS: BUN Creatinine Ratio 34.7 (10-20); Calcium 9.5 mg/dl (8.5-10.1); Creatinine Clr Calc Pharmacy 86.8 ml/min; Est GFR (African American) 104.3 ml/min; Potassium 4.1 mmol/L (3.5-5.1)
[2021-03-20] MEDS ORDERED: IPRATROPIUM BROMIDE NEB SOLN 0.02% 2.5 ML VIAL INH PRN (10:30)
[2021-03-20] MEDS ORDERED: LEVALBUTEROL 1.25MG/0.5ML NEB INH PRN (10:30)
[2021-03-20] MEDS: CEROVITE ADV FORMULA TAB PO SCH (12:02)
--- NOTE | 2021-03-20 12:43 | Discharge Summary ---
Date of Service March 20, 2021 Admission HPI Per Admitting Provider History obtained from patient and records. Medical history significant for chronic diastolic heart failure (EF 60 to 65%, TTE 2020), hypercoagulopathy (hx PE/DVT/protein C deficiency on Coumadin, hypertension, PSVT, PVD, BRANDIE (CPAP intolerance), Edenilson-Danlos syndrome, bronchial asthma, anxiety/mood disorder, fibromyalgia as per records, restless leg syndrome, history gastric bypass, intermittent tobacco abuse. Last confinement November 2020 for cellulitis of the right foot. Patient discharged on Keflex course. Few days history of left leg swelling without fever, chills. No recollection of recent trauma. Substernal chest pain which patient attributes to anxiety. Left hip pain with walking. Patient seen at urgent care yesterday. Started on Bactrim. Outpatient Dopplers done at [facility] negative for DVT. Patient noted worsening left leg swelling at home despite first doses of antibiotic Rx. Patient return to ER. She received Daptomycin and Cefepime for sepsis. 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 Exam Per Admitting Provider GENERAL: uncomfortable, episodic lethargy, morbidly obese, looks younger for stated age, no respiratory distress SKIN: Normal color, warm HEENT: Sims palpebral conjunctivae, no ptosis, dry buccal mucosa NECK : Supple, short neck, no tenderness CHEST : CTA, no tenderness HEART : RRR, no obvious murmurs ABDOMEN: Some distention, nontender EXTREMITIES : Tender indurated LLE with superficial petechiae/purpuric lesions , no other conspicuous deformities noted NEUROLOGIC : Episodic lethargy, no facial asymmetry, no other gross focality Principal Diagnosis LLE Cellulitis Discharge Exam General: A&Ox3 HENT: NCAT, MMM, EOMI Eyes: PERRLA Neck: Supple, normal range of motion CVS: Bradycardic Resp: b/l good breath sounds Abdomen: Soft, ND/NT Extremities: Left lower extremity erythema noted, periphery petechial in nature, warm to touch on the day of admisson - significantly improved on the day of discharge Neuro: face symmetric, no gross focal deficits appreciated Skin: warm and dry, no rashes/lesions/errythema MSK: normal ROM, no joint swelling/erythema Discharge Data Allergies Allergy/AdvReac Type Severity Reaction Status Date / Time ammonia Allergy Severe FACE, Verified 03/16/21 19:08 LIPS, TONGUE EDEMA buspirone Allergy Severe NEURO Verified 03/16/21 19:08 COMPLICATIONS duloxetine Allergy Intermediate RASH Verified 03/16/21 19:08 ITCHING lisinopril Allergy Intermediate cough Verified 03/16/21 19:08 adhesive Allergy Mild skin tears Verified 03/16/21 19:08 NSAIDS (Non-Steroidal Allergy Unknown not Verified 03/16/21 19:08 Anti-Inflamma supposed to use-S/P GASTRIC BYPASS vancomycin Allergy Unknown ON [facility]G MED Verified 03/16/21 19:08 LIST venlafaxine Allergy Unknown AFFECTS Verified 03/16/21 19:08 LEGS diphenhydramine AdvReac Intermediate RESTLESS Verified 03/16/21 19:08 LEGS gabapentin AdvReac Intermediate MUSCLE Verified 03/16/21 19:08 STIFFNESS POLLEN Allergy Severe FACE, Uncoded 03/16/21 19:08 LIPS, TONGUE EDEMA Dust Allergy Intermediate ROACHES,DUST Uncoded 03/16/21 19:08 MITES-CLOGGED UP SINUSES-CAN'T BREATHE Consultations 03/16/21 19:16 ED Decision to Admit Stat Ordered Studies 03/16/21 20:59 CT hip LT wo con Urgent CT tib/fib LT w con Urgent 03/16/21 21:00 CT head/brain wo con Urgent 03/16/21 21:04 CT femur LT w con Urgent Hospital Course (1) Sepsis: Secondary to left lower extremity cellulitis. (2) Cellulitis of left leg: On admission patient was started on doxycycline initially, she was transitioned to cefazolin, her erythema improved. On the day of discharge patient was afebrile. WBC was within normal limit, patient was doing fine and erythema improved significantly. Discharged in stable condition. Patient was discharged on Keflex. (3) Traumatic ecchymosis of left lower leg: Supratherapeutic INR of 5.2 on admission. This was reversed with vitamin K. She is on Coumadin for history of recurrent DVT/PE. Ecchymosis appears improved prior to discharge. she also has other areas of ecchymosis present on her arms from phlebotomy attempts that she noted are not clearing as fast as they normally do. Encouraged patient to move as able in order PT/OT. This will help mobilize inflammatory components and minimize swelling. She declined TEDs. (4) Ambulatory dysfunction: Secondary to generalized physical deconditioning and morbid obesity. P T/OT ordered. (5) Peripheral neuropathy: Chronic peripheral neuropathy and restless leg syndrome. Continue home medications including Sinemet and ropinirole. Patient is also now on a buprenorphine patch which is being titrated to effect. Reports she is due to increase her patch from 10mcg weely to 15mcg weekly starting 03/20. She is being prescribed this patch by her PCP as outpatient. (6) Restless leg syndrome: See plan above (7) ISAC (generalized anxiety disorder): Vistaril as needed per home regimen. Encouraged to avoid benzos out of concern for possible medication interactions including with tramadol (new for her), Butrans patch (being titrated up tomorrow and also new for her), high doses of ropinirole. (8) Edenilson-Danlos syndrome: Total Time Total Time Spent Total Time Spent (In Minutes): 35 Discharge Plan Discharge Items Patient Disposition: Home - Self-Care Reason For Visit: SEPSIS Discharge Diagnosis: Cellulitis Condition on Discharge: Fair Activity: Resume your previous activity Non-emergency contact: Primary Care Provider Call non-emergency contact if: your symptoms worsen Follow-up/Referrals: Debbie Otero PA-C [Primary Care Provider] - 03/27/21 11:10 am (Date & Time 03/27/2021 11:10 AM Provider Lavern Gomez [facility] ) Diet: Heart Healthy Addtl Attending Provider Instructions: Starting Keflex every 8 hours for 10 days. Resume your Coumadin. If the leg is more red, please hold Coumadin and consult your primary care physician. Pending Studies at Discharge: No Stand-Alone Forms: My [employer], Smoking Cessation Medications and DC Order Prescriptions: New cephalexin [Keflex] 750 mg capsule 750 mg PO Q8H 10 Days Qty: 30 RF: 0 Continued cyanocobalamin (vitamin B-12) 1,000 mcg/mL solution 1,000 mcg IM MONTHLY RF: 0 metoprolol tartrate 25 mg tablet 25 mg PO BID RF: 0 atorvastatin 20 mg Tablet 20 mg PO HS RF: 0 sennosides-docusate sodium [Senna-S] 8.6-50 mg Tablet 1 tab PO BID PRN (Reason: Constipation) RF: 0 magnesium 250 mg Tablet 500 mg PO HS RF: 0 ergocalciferol (vitamin D2) 50,000 unit Capsule 50,000 unit PO WK RF: 0 albuterol sulfate [Ventolin HFA] 90 mcg/actuation Hfa Aerosol Inhaler 2 puff INHALATION Q6H PRN (Reason: Shortness Of Breath) RF: 0 carbidopa-levodopa [Sinemet] 25-100 mg Tablet 1 tab PO QID RF: 0 ondansetron 4 mg Tablet,Disintegrating 4 mg PO Q6H PRN (Reason: Nausea) RF: 0 fluticasone propionate [Flonase Allergy Relief] 50 mcg/actuation [place],Suspension 2 spray INTRANASAL DAILY RF: 0 ipratropium bromide 0.03 % [place],Non-Aerosol 1 spray INTRANASAL QID PRN (Reason: Nasal Congestion) RF: 0 calcium citrate 200 mg (950 mg) Tablet 650 mg PO BID RF: 0 omeprazole 20 mg Tablet,Delayed Release (Dr/Ec) 40 mg PO QAM RF: 0 [place]-3 Fish Oil 300-1,000 mg Capsule 1 tab PO HS RF: 0 biotin 1,000 mcg Tablet,Chewable 1,000 mcg PO HS RF: 0 thiamine HCl (vitamin B1) 100 mg Tablet 100 mg PO BID RF: 0 PreserVision AREDS-2 [id number] Capsule 1 tab PO BID RF: 0 triamcinolone acetonide 0.1 % Cream 1 applic TOPICAL BID PRN (Reason: Skin Irritation) RF: 0 ropinirole 2 mg Tablet See Rx Instructions .ROUTE .COMPLEX RF: 0 clobetasol 0.05 % Solution 1 applic TOPICAL BID PRN (Reason: FOR SCALP NEEDED) RF: 0 Flovent HFA 110 mcg/actuation Hfa Aerosol Inhaler 2 puff INHALATION BID RF: 0 metaxalone [Skelaxin] 800 mg Tablet 800 mg PO QID RF: 0 diclofenac sodium 1 % Gel 2 g TOPICAL QID RF: 0 buprenorphine 10 mcg/hour patch weekly 10 mcg topical WK RF: 0 warfarin 5 mg Tablet 5 mg PO WK RF: 0 warfarin 5 mg tablet 2.5 mg PO [id number] RF: 0 mupirocin 2 % ointment 1 applic TOPICAL TID PRN (Reason: NEEDED) RF: 0 furosemide [Lasix] 40 mg Tablet 40 mg PO DAILY PRN (Reason: Edema) RF: 0 ipratropium-albuterol 0.5 mg-3 mg(2.5 mg base)/3 mL solution for nebulization 3 ml INHALATION QID RF: 0 levothyroxine 50 mcg tablet 50 mcg PO DAILYBB RF: 0 montelukast 10 mg tablet 10 mg PO HS RF: 0 hydroxyzine HCl 25 mg tablet 25 mg PO Q6H PRN (Reason: Anxiety) RF: 0 fluticasone propion-salmeterol 100-50 mcg/dose blister with device 1 inh INHALATION BID RF: 0 Linzess 290 mcg capsule 290 mcg PO DAILY@1500 RF: 0 docusate sodium 50 mg Capsule 50 mg PO BID PRN (Reason: Constipation) RF: 0 potassium chloride 20 mEq Tablet Extended Release 20 meq PO DAILY RF: 0 lidocaine HCl 2 % Jelly 5 ml EXT BID PRN (Reason: pain) Qty: 30 RF: 0 Advanced Probiotic 625 mg (10 billion cell) Capsule 2 cap PO DAILY Qty: 14 RF: 0 Discontinued sulfamethoxazole-trimethoprim 800-160 mg tablet 1 tab PO BID RF: 0 Discharge Orders: Discharge Order (Routine); Ordered 03/20/21 Ordered By: Kojo Corcoran Admission Data Admit Date/Time: 03/16/21 21:04 Attending Provider: Kojo Corcoran Admit Provider: Sebastien Delaney Primary Care Provider: Debbie Otero Other Providers: Sebastien Delaney Other Interventions: Discharge Summary Assessment (RN) Last Done: 03/20/21 12:11
[2021-03-20] MEDS: traMADol HCL 50 MG TABLET PO PRN (14:26)
[2021-03-20] MEDS ORDERED: WARFARIN SOD 5 MG TAB PO SCH (16:00)
== END 2021-03-20 15:50 | disposition home or self-care (01) | DRG 872 ==
LOC: ED 17:54 → 2N 21:04 → SUATTDRO 21:04 → 2N 22:55 → 3W 03-19 21:43

== ENCOUNTER 2022-01-09 18:51 | Inpatient (IN) ==
[2022-01-09] MEDS ORDERED: LORazepam 2 MG/1 ML VIAL IV STA (21:43)
[2022-01-09] MEDS ORDERED: ACETAMINOPHEN 1,000 MG/100 ML VIAL IV STA (21:45)
[2022-01-09] MEDS ORDERED: cefTRIAXone SODIUM 2,000 MG/70 ML BAG IV STA (21:45)
[2022-01-09 22:14] LABS: Albumin Globulin Ratio 1.4 (0.9-2); Albumin Level 3.2 gm/dl (3.4-5.0); BUN Creatinine Ratio 32.3 (10-20); Bilirubin,Total 1.1 mg/dl (0.2-1.0); Calcium 8.5 mg/dl (8.5-10.1); Creatinine Clr Calc Pharmacy 81.6 ml/min; Est GFR (African American) 103.5 ml/min; Est GFR (Non-African American) 89.3 ml/min; Globulin 2.3 gm/dl (2.5-4.0); Potassium 3.1 mmol/L (3.5-5.1); Total Protein 5.5 gm/dl (6.0-8.3)
[2022-01-09 22:25] LABS: Appearance Urine Clear (Clear); Bacteria Urine Automated Negative (Negative); Bilirubin Urine Negative (Negative); Blood Urine Negative (Negative); Color Urine Dark Yellow; Glucose Urine UA Negative (Negative); Ketones Urine Negative (Negative); Leukocyte Esterase Urine Negative (Negative); Nitrite Urine Negative (Negative); Protein Urine Trace (Negative); RBC Urine Automated 0-4 /hpf (0-4); Specific Gravity Urine 1.021 (1.000-1.030); Urobilinogen Urine Negative (Negative); pH Urine 5.5 (4.5-7.5)
[2022-01-09 23:16] LABS: Basophils # (auto) 0.01 K/uL (0-0.2); Basophils % (auto) 0.1 %; Hematocrit (blood only) 32.6 % (37-47); Hemoglobin 10.4 g/dL (12.0-16.0); Immature Granulocytes # (auto) 0.02 K/uL (0.00-0.02); Immature Granulocytes % (auto) 0.2 %; Lymphocytes # (auto) 0.72 K/uL (1.2-3.4); Lymphocytes % (auto) 6.3 %; Mean Corpuscular Hemoglobin 29.5 pg (25-34); Mean Corpuscular Hgb Conc 31.9 g/dL (32-36); Mean Corpuscular Volume 92.6 fL (80-100); Mean Platelet Volume 9.7 fL (7.4-10.4); Monocytes # (auto) 0.45 K/uL (0.11-0.59); Monocytes % (auto) 3.9 %; Neutrophils # (auto) 10.28 K/uL (1.4-6.5); Neutrophils % (auto) 89.5 %; Platelet Count 213 K/uL (130-400); RDW Coefficient of Variation 15.5 % (11.5-14.5); RDW Standard Deviation 52.8 fL (36.4-46.3); Red Blood Count 3.52 M/uL (4.2-5.4); White Blood Count 11.48 K/uL (4.8-10.8)
[2022-01-09 23:31] LABS: INR 1.7 (0.9-1.1); Partial Thromboplastin Ratio 1.6; Partial Thromboplastin Time 44.6 Seconds (21.0-31.0); Prothrombin Time 17.2 Seconds (9.0-12.0)
[2022-01-09] MEDS ORDERED: rOPINIRole HCL 2 MG TABLET PO STA (23:33)
[2022-01-09] MEDS ORDERED: CARBIDOPA/LEVODOPA 25/100MG TAB PO STA (23:33)
[2022-01-09] MEDS ORDERED: POTASSIUM CHLORIDE 10 MEQ TABCR PO STA (23:34)
[2022-01-10] MEDS ORDERED: DOXYCYCLINE HYCLATE 100 MG in DEXTROSE 5% 100 ML IV STA (00:08)
--- NOTE | 2022-01-10 00:24 | Emergency Department Note ---
History of Present Illness General Chief complaint: Leg Injury/Pain Time Seen by Provider: 01/09/22 21:32 History of Present Illness Maximum Pain Intensity: 7 This 71-year-old presents to the ER complaining of lower leg infection Location: Right lower leg Quality: Painful and swollen Severity: Moderate Duration: Past few days Timing: Started few days ago Context: Patient was concerned and came in Modifying factors: better with rest; worse with activity patient states her leg is becoming more red and swollen. She is concerned for recurrent cellulitis. Patient states she does not feel well. Patient denies chest pain, dyspnea, high fevers, vomiting, diarrhea. She is requesting her restless leg medication. Home Medications Medication Instructions Recorded Confirmed Type L.acidoph-L.rhamn-B.bifidum-B.long 2 tab PO DAILY 01/09/22 01/09/22 History 12.9 mg (2 billion cell) tablet, DR (Probiotic Acidophilus iJmmie) albuterol sulfate 90 mcg/actuation 2 inh INHALATION Q6 PRN 01/09/22 01/09/22 History aerosol inhaler atorvastatin 20 mg tablet 20 mg PO QAM 01/09/22 01/09/22 History biotin 1 mg tablet 1 mg PO DAILY 01/09/22 01/09/22 History buprenorphine 15 mcg/hour weekly 1 patch TOPICAL WK 01/09/22 01/09/22 History transdermal patch calcium citrate 150 mg capsule 0 mg PO BID 01/09/22 01/09/22 History carbidopa 25 mg-levodopa 100 mg 1 tab PO QID 01/09/22 01/09/22 History tablet clindamycin phosphate 1 % topical 1 applic TOPICAL BID PRN 01/09/22 01/09/22 History gel cromolyn 4 % eye drops 1 drp OPL QID PRN 01/09/22 01/09/22 History cyanocobalamin (vitamin B-12) 1,000 mcg MO 01/09/22 01/09/22 History 1,000 mcg/mL injection syringe diclofenac sodium 1 % topical gel 2 g TOPICAL QID 01/09/22 01/09/22 History docusate sodium 50 mg capsule 50 mg PO BID PRN 01/09/22 01/09/22 History ergocalciferol (vitamin D2) 1,250 1,250 mcg PO WK 01/09/22 01/09/22 History mcg (50,000 unit) capsule (Vitamin D2) fluticasone 100 mcg-salmeterol 50 1 inh INHALATION BID 01/09/22 01/09/22 History mcg/dose blistr powdr for inhalation (Advair Diskus) fluticasone propionate 110 2 puff INHALATION BID 01/09/22 01/09/22 History mcg/actuation HFA aerosol inhaler fluticasone propionate 50 2 spray INTRANASAL DAILY 01/09/22 01/09/22 History mcg/actuation nasal spray,suspension (Flonase Allergy Relief) furosemide 40 mg tablet 40 - 80 mg PO DAILY 01/09/22 01/09/22 History hydroxyzine HCl 25 mg tablet 25 mg PO Q6 PRN 01/09/22 01/09/22 History ipratropium 0.5 mg-albuterol 3 mg 3 ml INHALATION QID 01/09/22 01/09/22 History (2.5 mg base)/3 mL nebulization soln ipratropium bromide 21 mcg (0.03 1 spray INTRANASAL QID 01/09/22 01/09/22 History %) nasal spray levothyroxine 50 mcg tablet 50 mcg PO DAILY 01/09/22 01/09/22 History lidocaine HCl 2.8 % topical gel 1 applic TOPICAL BID PRN 01/09/22 01/09/22 History linaclotide 290 mcg capsule 290 mcg PO DAILY 01/09/22 01/09/22 History (Linzess) meclizine 25 mg tablet 25 mg PO TID PRN 01/09/22 01/09/22 History metaxalone 800 mg tablet 800 mg PO QID 01/09/22 01/09/22 History metoprolol tartrate 25 mg tablet 12.5 mg PO QPM 01/09/22 01/09/22 History montelukast 10 mg tablet 10 mg PO HS 01/09/22 01/09/22 History omega-3 fatty acids 1,000 mg PO DAILY 01/09/22 01/09/22 History omeprazole 20 mg capsule,delayed 40 mg PO DAILY 01/09/22 01/09/22 History release ondansetron HCl 4 mg tablet 4 mg PO Q12 PRN 01/09/22 01/09/22 History potassium chloride 20 mEq oral 20 meq PO AMHS 01/09/22 01/09/22 History packet (Klor-Con) ropinirole 2 mg tablet See Rx Instructions .ROUTE .COMPLEX 01/09/22 01/09/22 History sennosides 8.6 mg-docusate sodium 1 tab-cap PO BID 01/09/22 01/09/22 History 50 mg tablet (Senna-S) thiamine HCl (vitamin B1) 100 mg 100 mg PO BID 01/09/22 01/09/22 History tablet triamcinolone acetonide 0.1 % 1 applic TOPICAL BID 01/09/22 01/09/22 History topical cream triamcinolone acetonide 0.1 % 1 applic TOPICAL BID PRN 01/09/22 01/09/22 History topical cream vit C 250 mg-vit E 90 mg-zinc 40 1 tab PO BID 01/09/22 01/09/22 History mg-copper 1 [id number] capsule (PreserVision AREDS-2) warfarin 2.5 mg tablet 0 mg PO DIRECTED 01/09/22 01/09/22 History Allergies Allergy/AdvReac Type Severity Reaction Status Date / Time ammonia Allergy Severe FACE, Verified 03/16/21 19:08 LIPS, TONGUE EDEMA buspirone Allergy Severe NEURO Verified 03/16/21 19:08 COMPLICATIONS duloxetine Allergy Intermediate RASH Verified 03/16/21 19:08 ITCHING lisinopril Allergy Intermediate cough Verified 03/16/21 19:08 adhesive Allergy Mild skin tears Verified 03/16/21 19:08 NSAIDS (Non-Steroidal Allergy Unknown not Verified 03/16/21 19:08 Anti-Inflamma supposed to use-S/P GASTRIC BYPASS vancomycin Allergy Unknown ON [facility] MED Verified 03/16/21 19:08 LIST venlafaxine Allergy Unknown AFFECTS Verified 03/16/21 19:08 LEGS diphenhydramine AdvReac Intermediate RESTLESS Verified 03/16/21 19:08 LEGS gabapentin AdvReac Intermediate MUSCLE Verified 03/16/21 19:08 STIFFNESS POLLEN Allergy Severe FACE, Uncoded 03/16/21 19:08 LIPS, TONGUE EDEMA Dust Allergy Intermediate ROACHES,DUST Uncoded 03/16/21 19:08 MITES-CLOGGED UP SINUSES-CAN'T BREATHE Past Med/Surg History Medical History ADHD Asthma uses PRN INH 3-4 x wk Bulging of intervertebral disc Claustrophobia Difficult intravenous access Dysphagia Edenilson-Danlos syndrome ISAC (generalized anxiety disorder) Gastroparesis GERD (gastroesophageal reflux disease) Hearing deficit History of colon polyps History of colon polyps History of DVT (deep vein thrombosis) chronic anticoagulation History of intestinal obstruction Hyperlipidemia Hypothyroidism Osteoarthritis Osteoporosis Peripheral neuropathy Protein C deficiency Pulmonary embolism 07/2018 - treated w/ lovenox - unk etiology Renal cyst Restless leg syndrome Sleep apnea unable to tolerate CPAP Tachycardia Thoracic aortic aneurysm follows w/ Dr. Arredondo - evaluated within last 6 mo Thyroid nodule Surgical History History of abdominoplasty + hernia repair History of arthroscopy of left knee History of bilateral breast reduction surgery History of cholecystectomy History of colonoscopy History of esophagogastroduodenoscopy (EGD) History of gastric bypass History of intestinal surgery History of laparotomy History of left knee replacement History of right knee joint replacement History of tonsillectomy Hx of melanoma excision shoulder S/P hysterectomy Self extubation attempted post gastric bypass Status post biopsy of thyroid gland benign Family History Uncle Stomach cancer Other No family history of adverse response to anesthesia No pertinent family history in first degree relatives Social History Smoking Status: Never smoker Second Hand Exposure: Yes; Hx Alcohol Use: Yes Alcohol type: wine and hard liquor Hx Substance Use: No Preferred Language: Andorran Communication Ability: Effective Visual Impairment: Limited Hearing Ability: Normal 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: No Beliefs That Will Affect Care: None Current Living Situation: Alone Current Living Situation Comment: has friends to help when needed Feels Safe at Home: Yes Assistive Devices: Walker Review of Systems A total of 10 systems reviewed and were otherwise negative Physical Exam Vital Signs Vital Signs - 24 hr 01/09/22 19:07 01/09/22 21:37 01/09/22 23:00 Temperature 36.7 C Temperature Source Oral Pulse Rate 87 Pulse Rate [Apical] 90 88 Pulse Rate from SpO2 Sensor Respiratory Rate 19 19 17 Respiratory Effort / Characteristics Non-Labored Respiratory Depth Normal Blood Pressure 125/90 Blood Pressure [Left Arm] 104/79 Blood Pressure Mean 101 Blood Pressure Mean [Left Arm] 87 Pulse Oximetry 98 95 98 Oxygen Delivery Method Room Air Room Air Room Air Sepsis Recent Fever Within 48 Hours No Sepsis New/Unexplained Change in Mental Status No Sepsis Action Taken by Nursing No Action Required 01/10/22 00:00 01/10/22 01:00 Temperature Temperature Source Pulse Rate 93 H 71 Pulse Rate [Apical] Pulse Rate from SpO2 Sensor 97 H 85 Respiratory Rate 19 24 Respiratory Effort / Characteristics Respiratory Depth Blood Pressure Blood Pressure [Left Arm] Blood Pressure Mean Blood Pressure Mean [Left Arm] Pulse Oximetry 98 96 Oxygen Delivery Method Room Air Room Air Sepsis Recent Fever Within 48 Hours Sepsis New/Unexplained Change in Mental Status Sepsis Action Taken by Nursing VITALS: Vitals are noted on the nurse's note and reviewed by myself. Vital signs reviewed. GENERAL: Pleasant female, in no acute distress, nondiaphoretic, well-developed well-nourished. SKIN: Bilateral lower legs right greater than left with extensive erythema and edema concerning for infection, the rest of the skin was without rashes, erythema, edema, or bruising. There is no tenting of the skin. Capillary reflex less than 2 seconds. HEAD: Normocephalic atraumatic. EARS: External auditory canals clear, EYES: Pupils equal round and reactive to light and accommodation. Conjunctivae without injection, sclerae without icterus. Extraocular movements intact. NOSE: Patent, turbinates without inflammation or discharge. MOUTH: Mucous membranes moist. Pharynx without erythema or exudate. Uvula midline. Airway patent. Tongue does not deviate. NECK: Supple without nuchal rigidity. No lymphadenopathy. No thyromegaly. Cervical spine is nontender. No JVD. HEART: Regular rate and rhythm LUNGS: Clear to auscultation bilaterally without wheezes, rales or rhonchi. No retractions or accessory muscle use. ABDOMEN: Positive bowel sounds x 4. Normal tympanic percussion. Soft, nontender, without masses or organomegaly. Kim sign negative. No guarding or rebound tenderness. No CVA tenderness MUSCULOSKELETAL: No muscle atrophy noted. NEURO: Patient was alert and oriented to person place and time. Normal sensation to light and sharp touch. No focal neurological deficits. Course Administered Medications Doxycycline Hyclate 100 mg/ (Dextrose) 110 mls @ 50 mls/hr IV NOW STA Stop: 01/10/22 02:19 Last Admin: 01/10/22 00:55 Dose: 50 mls/hr Documented by: [id number] Discontinued Medications Carbidopa/Levodopa (Carbidopa/Levodopa 25/100mg Tab) 1 tab PO NOW STA Stop: 01/09/22 23:34 Last Admin: 01/10/22 00:01 Dose: 1 tab Documented by: [id number] Ceftriaxone Sodium (Rocephin) 2,000 mg in 70 mls @ 140 mls/hr IV NOW STA Stop: 01/09/22 22:14 Last Infusion: 01/10/22 00:57 Dose: 0 mls/hr Documented by: [id number] Admin: 01/10/22 00:06 Dose: 140 mls/hr Documented by: [id number] Acetaminophen (Ofirmev) 1,000 mg in 100 mls @ 400 mls/hr IV NOW STA Stop: 01/09/22 21:59 Last Infusion: 01/10/22 00:01 Dose: 0 mls/hr Documented by: [id number] Admin: 01/09/22 22:07 Dose: 400 mls/hr Documented by: [id number] Lorazepam (Lorazepam 2 Mg/1 Ml Vial) 1 mg IV NOW STA; Protocol Stop: 01/09/22 21:44 Last Admin: 01/09/22 22:07 Dose: 1 mg Documented by: [id number] Potassium Chloride (Potassium Chloride 10 Meq Tabcr) 40 meq PO NOW STA Stop: 01/09/22 23:35 Last Admin: 01/10/22 00:01 Dose: 40 meq Documented by: [id number] Ropinirole HCl (Ropinirole Hcl 2 Mg Tablet) 4 mg PO NOW STA Stop: 01/09/22 23:34 Last Admin: 01/10/22 00:01 Dose: 4 mg Documented by: [id number] Medical Decision Making Medical Records Attestation: I reviewed the patient's medical records. Home Medications Current Medication List: was personally reviewed by me Laboratory Data Attestation: I reviewed the patient's lab results. Result diagrams: 01/09/22 23:05 01/09/22 21:27 Lab Results 01/09/22 01/09/22 01/09/22 Range/Units 21:21 21:27 21:27 WBC Cancelled RBC Cancelled Hgb Cancelled Hct Cancelled MCV Cancelled MCH Cancelled MCHC Cancelled RDW Std Deviation Cancelled RDW Coeff of Neftaly Cancelled Plt Count Cancelled MPV Cancelled Immature Gran % (Auto) Cancelled Neut % (Auto) Cancelled Lymph % (Auto) Cancelled [place] % (Auto) Cancelled Eos % (Auto) Cancelled Baso % (Auto) Cancelled Neut # (Auto) Cancelled Lymph # (Auto) Cancelled [place] # (Auto) Cancelled Eos # (Auto) Cancelled Baso # (Auto) Cancelled Immature Gran # (Auto) Cancelled Absolute Nucleated RBC Cancelled Nucleated RBC % (auto) Cancelled Neutrophils % (Manual) Cancelled Band Neutrophils % Cancelled Lymphocytes % (Manual) Cancelled Prolymphocyte % Cancelled Reactive Lymphs % (Man) Cancelled Monocytes % (Manual) Cancelled Eosinophils % (Manual) Cancelled Basophils % (Manual) Cancelled Metamyelocytes % (Man) Cancelled Myelocytes % (Man) Cancelled Promyelocytes % (Man) Cancelled Blast Cells % (Manual) Cancelled Plasma Cell % (Manual) Cancelled Other Cells % Cancelled Nucleated RBC % Cancelled Neutrophils # (Manual) Cancelled Band Neutrophils # Cancelled Total Absolute Neuts Cancelled Lymphocytes # (Manual) Cancelled Prolymphocyte # Cancelled Reactive Lymphs # Cancelled Total Abs Lymphocytes Cancelled Monocytes # (Manual) Cancelled Eosinophils # (Manual) Cancelled Basophils # (Manual) Cancelled Metamyelocytes # (Man) Cancelled Myelocytes # (Manual) Cancelled Promyelocytes # (Man) Cancelled Blast Cells # (Man) Cancelled Plasma Cell # (Manual) Cancelled Other Cells # Cancelled Nucleated RBCs # (Man) Cancelled Hypersegmented Neuts Cancelled Hyposegmented Neuts Cancelled Hypogranular Neuts Cancelled Large Granular Lymphs Cancelled # Lrg Granular Lymphs Cancelled Hairy Cells Cancelled Smudge Cells Cancelled Toxic Granulation Cancelled Toxic Vacuolation Cancelled Dohle Bodies Cancelled [place] Cancelled Platelet Estimate Cancelled Hypogranular Platelets Cancelled Clumped Platelets Cancelled Giant Platelets Cancelled Platelet Satelliting Cancelled RBC Morphology Cancelled Polychromasia Cancelled Hypochromasia Cancelled Poikilocytosis Cancelled Basophilic Stippling Cancelled Anisocytosis Cancelled Microcytosis Cancelled Macrocytosis Cancelled Spherocytes Cancelled Pappenheimer Bodies Cancelled Sickle Cells Cancelled Target Cells Cancelled Tear Drop Cells Cancelled Ovalocytes Cancelled Stomatocytes Cancelled [place] Bodies Cancelled Echinocytes Cancelled Acanthocytes (Spur) Cancelled Rouleaux Cancelled RBC Agglutinates Cancelled Schistocytes Cancelled Sezary Cell Cancelled PT Cancelled INR Cancelled APTT Cancelled PTT Ratio Cancelled Sodium (136-145) mmol/L Potassium (3.5-5.1) mmol/L Chloride (98-107) mmol/L Carbon Dioxide (21-32) mmol/L Anion Gap (3-11) BUN (6-23) mg/dl Creatinine (0.6-1.2) mg/dl Est Cr Clr Drug Dosing ml/min Est GFR ( Amer) ml/min Est GFR (Non-Af Amer) ml/min BUN/Creatinine Ratio (10-20) Glucose (70-99(Fasting)) mg/dl Lactate (0.4-2.0) mmol/L Calcium (8.5-10.1) mg/dl Magnesium (1.7-2.4) mg/dl Total Bilirubin (0.2-1.0) mg/dl AST (13-39) U/L ALT (7-52) U/L Alkaline Phosphatase (34-104) U/L Total Protein (6.0-8.3) gm/dl Albumin (3.4-5.0) gm/dl Globulin (2.5-4.0) gm/dl Albumin/Globulin Ratio (0.9-2) Urine Color Dark Yellow Urine Appearance Clear (Clear) Urine pH 5.5 (4.5-7.5) Ur Specific [place] 1.021 (1.000-1.030) Urine Protein Trace H (Negative) Urine Glucose (UA) Negative (Negative) Urine Ketones Negative (Negative) Urine Blood Negative (Negative) Urine Nitrite Negative (Negative) Urine Bilirubin Negative (Negative) Urine Urobilinogen Negative (Negative) Ur Leukocyte Esterase Negative (Negative) Urine WBC (Auto) 1-5 (0-5) /hpf Urine RBC (Auto) 0-4 (0-4) /hpf U Hyaline Cast (Auto) 1-5 (0-5) /lpf U Epithel Cells (Auto) 10-20 H (0-5) /lpf Urine Bacteria (Auto) Negative (Negative) SARS-CoV-2, RNA, NAAT (NEGATIVE) 01/09/22 01/09/22 01/09/22 Range/Units 21:27 21:27 22:30 WBC RBC Hgb Hct MCV MCH MCHC RDW Std Deviation RDW Coeff of Neftaly Plt Count MPV Immature Gran % (Auto) Neut % (Auto) Lymph % (Auto) [place] % (Auto) Eos % (Auto) Baso % (Auto) Neut # (Auto) Lymph # (Auto) [place] # (Auto) Eos # (Auto) Baso # (Auto) Immature Gran # (Auto) Absolute Nucleated RBC Nucleated RBC % (auto) Neutrophils % (Manual) Band Neutrophils % Lymphocytes % (Manual) Prolymphocyte % Reactive Lymphs % (Man) Monocytes % (Manual) Eosinophils % (Manual) Basophils % (Manual) Metamyelocytes % (Man) Myelocytes % (Man) Promyelocytes % (Man) Blast Cells % (Manual) Plasma Cell % (Manual) Other Cells % Nucleated RBC % Neutrophils # (Manual) Band Neutrophils # Total Absolute Neuts Lymphocytes # (Manual) Prolymphocyte # Reactive Lymphs # Total Abs Lymphocytes Monocytes # (Manual) Eosinophils # (Manual) Basophils # (Manual) Metamyelocytes # (Man) Myelocytes # (Manual) Promyelocytes # (Man) Blast Cells # (Man) Plasma Cell # (Manual) Other Cells # Nucleated RBCs # (Man) Hypersegmented Neuts Hyposegmented Neuts Hypogranular Neuts Large Granular Lymphs # Lrg Granular Lymphs Hairy Cells Smudge Cells Toxic Granulation Toxic Vacuolation Dohle Bodies [place] Platelet Estimate Hypogranular Platelets Clumped Platelets Giant Platelets Platelet Satelliting RBC Morphology Polychromasia Hypochromasia Poikilocytosis Basophilic Stippling Anisocytosis Microcytosis Macrocytosis Spherocytes Pappenheimer Bodies Sickle Cells Target Cells Tear Drop Cells Ovalocytes Stomatocytes [place] Bodies Echinocytes Acanthocytes (Spur) Rouleaux RBC Agglutinates Schistocytes Sezary Cell PT INR APTT PTT Ratio Sodium 138 (136-145) mmol/L Potassium 3.1 L (3.5-5.1) mmol/L Chloride 108 H (98-107) mmol/L Carbon Dioxide 21 (21-32) mmol/L Anion Gap 9 (3-11) BUN 21 (6-23) mg/dl Creatinine 0.65 (0.6-1.2) mg/dl Est Cr Clr Drug Dosing 81.6 ml/min Est GFR ( Amer) 103.5 ml/min Est GFR (Non-Af Amer) 89.3 ml/min BUN/Creatinine Ratio 32.3 H (10-20) Glucose 95 (70-99(Fasting)) mg/dl Lactate (0.4-2.0) mmol/L Calcium 8.5 (8.5-10.1) mg/dl Magnesium 1.7 (1.7-2.4) mg/dl Total Bilirubin 1.1 H (0.2-1.0) mg/dl AST 19 (13-39) U/L ALT 17 (7-52) U/L Alkaline Phosphatase 58 (34-104) U/L Total Protein 5.5 L (6.0-8.3) gm/dl Albumin 3.2 L (3.4-5.0) gm/dl Globulin 2.3 L (2.5-4.0) gm/dl Albumin/Globulin Ratio 1.4 (0.9-2) Urine Color Urine Appearance (Clear) Urine pH (4.5-7.5) Ur Specific [place] (1.000-1.030) Urine Protein (Negative) Urine Glucose (UA) (Negative) Urine Ketones (Negative) Urine Blood (Negative) Urine Nitrite (Negative) Urine Bilirubin (Negative) Urine Urobilinogen (Negative) Ur Leukocyte Esterase (Negative) Urine WBC (Auto) (0-5) /hpf Urine RBC (Auto) (0-4) /hpf U Hyaline Cast (Auto) (0-5) /lpf U Epithel Cells (Auto) (0-5) /lpf Urine Bacteria (Auto) (Negative) SARS-CoV-2, RNA, NAAT NEGATIVE (NEGATIVE) 01/09/22 01/09/22 01/09/22 Range/Units 23:05 23:05 23:05 WBC 11.48 H RBC 3.52 L Hgb 10.4 L Hct 32.6 L MCV 92.6 MCH 29.5 MCHC 31.9 L RDW Std Deviation 52.8 H RDW Coeff of Neftaly 15.5 H Plt Count 213 MPV 9.7 Immature Gran % (Auto) 0.2 Neut % (Auto) 89.5 Lymph % (Auto) 6.3 [place] % (Auto) 3.9 Eos % (Auto) 0.0 Baso % (Auto) 0.1 Neut # (Auto) 10.28 H Lymph # (Auto) 0.72 L [place] # (Auto) 0.45 Eos # (Auto) 0.00 Baso # (Auto) 0.01 Immature Gran # (Auto) 0.02 Absolute Nucleated RBC Nucleated RBC % (auto) Neutrophils % (Manual) Band Neutrophils % Lymphocytes % (Manual) Prolymphocyte % Reactive Lymphs % (Man) Monocytes % (Manual) Eosinophils % (Manual) Basophils % (Manual) Metamyelocytes % (Man) Myelocytes % (Man) Promyelocytes % (Man) Blast Cells % (Manual) Plasma Cell % (Manual) Other Cells % Nucleated RBC % Neutrophils # (Manual) Band Neutrophils # Total Absolute Neuts Lymphocytes # (Manual) Prolymphocyte # Reactive Lymphs # Total Abs Lymphocytes Monocytes # (Manual) Eosinophils # (Manual) Basophils # (Manual) Metamyelocytes # (Man) Myelocytes # (Manual) Promyelocytes # (Man) Blast Cells # (Man) Plasma Cell # (Manual) Other Cells # Nucleated RBCs # (Man) Hypersegmented Neuts Hyposegmented Neuts Hypogranular Neuts Large Granular Lymphs # Lrg Granular Lymphs Hairy Cells Smudge Cells Toxic Granulation Toxic Vacuolation Dohle Bodies [place] Platelet Estimate Hypogranular Platelets Clumped Platelets Giant Platelets Platelet Satelliting RBC Morphology Polychromasia Hypochromasia Poikilocytosis Basophilic Stippling Anisocytosis Microcytosis Macrocytosis Spherocytes Pappenheimer Bodies Sickle Cells Target Cells Tear Drop Cells Ovalocytes Stomatocytes [place] Bodies Echinocytes Acanthocytes (Spur) Rouleaux RBC Agglutinates Schistocytes Sezary Cell PT 17.2 H INR 1.7 H APTT 44.6 H PTT Ratio 1.6 Sodium (136-145) mmol/L Potassium (3.5-5.1) mmol/L Chloride (98-107) mmol/L Carbon Dioxide (21-32) mmol/L Anion Gap (3-11) BUN (6-23) mg/dl Creatinine (0.6-1.2) mg/dl Est Cr Clr Drug Dosing ml/min Est GFR ( Amer) ml/min Est GFR (Non-Af Amer) ml/min BUN/Creatinine Ratio (10-20) Glucose (70-99(Fasting)) mg/dl Lactate 0.9 (0.4-2.0) mmol/L Calcium (8.5-10.1) mg/dl Magnesium (1.7-2.4) mg/dl Total Bilirubin (0.2-1.0) mg/dl AST (13-39) U/L ALT (7-52) U/L Alkaline Phosphatase (34-104) U/L Total Protein (6.0-8.3) gm/dl Albumin (3.4-5.0) gm/dl Globulin (2.5-4.0) gm/dl Albumin/Globulin Ratio (0.9-2) Urine Color Urine Appearance (Clear) Urine pH (4.5-7.5) Ur Specific [place] (1.000-1.030) Urine Protein (Negative) Urine Glucose (UA) (Negative) Urine Ketones (Negative) Urine Blood (Negative) Urine Nitrite (Negative) Urine Bilirubin (Negative) Urine Urobilinogen (Negative) Ur Leukocyte Esterase (Negative) Urine WBC (Auto) (0-5) /hpf Urine RBC (Auto) (0-4) /hpf U Hyaline Cast (Auto) (0-5) /lpf U Epithel Cells (Auto) (0-5) /lpf Urine Bacteria (Auto) (Negative) SARS-CoV-2, RNA, NAAT (NEGATIVE) Imaging Data Attestation: I personally reviewed and interpreted this imaging study as follows: [facility] Narrative Prior records reviewed and summarized as above. Triage Nursing notes reviewed. Additional history obtained from family. The patient's history was concerning for swelling and redness of the skin. Differential diagnosis: Etiologies such as cellulitis, abscess, MRSA infection, DVT, necrotizing fasciitis, dermatitis, drug eruption, as well as others were entertained.. Physical examination: The physical examination was consistent with cellulitis ER treatment provided: Rocephin, Requip, Ativan, potassium On reassessment the patient felt better. Diagnostics interpreted by me: The labs revealed leukocytosis, hypokalemia Imaging studies: Preliminary Findings Only See Final Report For Complete Findings US VENOUS BILATERAL LOWER EXTREMITIES: No evidence of DVT in the bilateral lower extremities. Evaluation of the calves is limited secondary to skin rash and pain. No comparisons. Radiologist: Janessa Palmer MD Consultation: A consultation was placed with the hospitalist. The case was discussed and diagnostics were reviewed. The patient was evaluated in the ER for further treatment. This appears to be isolated cellulitis. This is quite extensive. Medicine will be consulted. She will be admitted. By the evaluation outlined above emergent etiologies such as abscess, necrotizing fasciitis, DVT, as well as others were deemed relatively unlikely. The pt informed about the findings as listed above. All questions were answered and pleased with the treatment. The chart was completed utilizing [employer] Speech voice recognition software. Grammatical errors, random word insertions, pronoun errors, and incomplete sen tences are an occassional consequence of this system due to software limitations, ambient noise, and hardware issues. Any formal questions or concerns about the content, text, or information contained within the body of this dictation should be directly addressed to the physician assistant merchandiser for clar ification. Impression & Plan Cellulitis of leg, right Discharge Plan Visit Data Chief Complaint: Leg Injury/Pain ED Provider: Checo Stewart ED Midlevel Provider: Valerie Robledo Discharge Problem: Cellulitis of leg, right Patient Disposition: Admitted As Inpatient Condition: Fair Forms Stand Alone Forms: [facility] Prescriptions Prescriptions: No Action furosemide 40 mg tablet 40 - 80 mg PO DAILY RF: 0 atorvastatin 20 mg tablet 20 mg PO QAM RF: 0 ipratropium-albuterol 0.5 mg-3 mg(2.5 mg base)/3 mL solution for nebulization 3 ml INHALATION QID RF: 0 ondansetron HCl 4 mg Tablet 4 mg PO Q12 PRN (Reason: Nausea) RF: 0 sennosides-docusate sodium [Senna-S] 8.6-50 mg Tablet 1 tab-cap PO BID RF: 0 cromolyn 4 % drops 1 drp OPL QID PRN (Reason: Itching) RF: 0 thiamine HCl (vitamin B1) 100 mg Tablet 100 mg PO BID RF: 0 warfarin 2.5 mg tablet 0 mg PO DIRECTED RF: 0 Colace 50 mg Capsule 50 mg PO BID PRN (Reason: Constipation) RF: 0 triamcinolone acetonide 0.1 % Cream 1 applic TOPICAL BID RF: 0 triamcinolone acetonide 0.1 % cream 1 applic TOPICAL BID PRN (Reason: FLARE UP) RF: 0 potassium chloride [Klor-Con] 20 mEq packet 20 meq PO AMHS RF: 0 clindamycin phosphate 1 % gel 1 applic TOPICAL BID PRN (Reason: FLARE UPS) RF: 0 meclizine 25 mg Tablet 25 mg PO TID PRN (Reason: DIZZY) RF: 0 levothyroxine 50 mcg tablet 50 mcg PO DAILY RF: 0 ropinirole 2 mg tablet See Rx Instructions .ROUTE .COMPLEX RF: 0 omeprazole 20 mg capsule,delayed release(DR/EC) 40 mg PO DAILY RF: 0 montelukast 10 mg tablet 10 mg PO HS RF: 0 calcium citrate 150 mg Capsule 0 mg PO BID RF: 0 hydroxyzine HCl 25 mg Tablet 25 mg PO Q6 PRN (Reason: .ANX/ITCH) RF: 0 ergocalciferol (vitamin D2) [Vitamin D2] 1,250 mcg (50,000 unit) Capsule 1,250 mcg PO WK RF: 0 fluticasone propion-salmeterol [Advair Diskus] 100-50 mcg/dose Blister With Device 1 inh INHALATION BID RF: 0 albuterol sulfate 90 mcg/actuation Hfa Aerosol Inhaler 2 inh INHALATION Q6 PRN (Reason: Shortness Of Breath Or Wheezing) RF: 0 carbidopa-levodopa 25-100 mg Tablet 1 tab PO QID RF: 0 fluticasone propionate [Flonase Allergy Relief] 50 mcg/actuation [place],Suspension 2 spray INTRANASAL DAILY RF: 0 ipratropium bromide 21 mcg (0.03 %) [place],Non-Aerosol 1 spray INTRANASAL QID RF: 0 fluticasone propionate [Flovent] 110 mcg/actuation Hfa Aerosol Inhaler 2 puff INHALATION BID RF: 0 cyanocobalamin (vitamin B-12) 1,000 mcg/mL Syringe 1,000 mcg MO RF: 0 metaxalone 800 mg tablet 800 mg PO QID RF: 0 [place] 3 Capsule 1,000 mg PO DAILY RF: 0 metoprolol tartrate 25 mg tablet 12.5 mg PO QPM RF: 0 biotin 1 mg Tablet 1 mg PO DAILY RF: 0 diclofenac sodium [Voltaren] 1 % Gel 2 g TOPICAL QID RF: 0 Linzess 290 mcg capsule 290 mcg PO DAILY RF: 0 buprenorphine 15 mcg/hour patch weekly 1 patch topical WK RF: 0 PreserVision AREDS-2 250-90-40-1 mg Capsule 1 tab PO BID RF: 0 Probiotic Acidophilus Biobeads 12.9 mg (2 billion cell) Tablet,Delayed Release (Dr/Ec) 2 tab PO DAILY RF: 0 lidocaine HCl 2.8 % Gel 1 applic TOPICAL BID PRN (Reason: APPLY TO AFFECTED AREAA) RF: 0 Referrals Referrals: Debbie Otero PA-C [Primary Care Provider] -
--- NOTE | 2022-01-10 01:01 | History & Physical Report ---
Date of Service January 10, 2022 Assessment & Plan (1) Cellulitis of leg, right: Plan: Underlying chronic venous insufficiency on diuretic Rx Secondary to trauma History ambulatory dysfunction/Parkinson's disease/RLS No sepsis for now chronic diastolic heart failure (EF 60 to 65%, TTE 2020) patient euvolemic TAA, patient declined surgery as per outpatient Cardiology documentation hypercoagulopathy (hx PE/DVT/protein C deficiency on Coumadin, INR slightly subtherapeutic hypertension, stable hx PVD BRANDIE (CPAP intolerance) hx Edenilson-Danlos syndrome bronchial asthma, stable chronic anemia hemoglobin at baseline hypothyroidism, euthyroid as of today's TSH hx fibromyalgia on buprenorphine patch history gastric bypass Hypokalemia secondary diuretic Rx intermittent tobacco abuse OBS GMF Doxycycline, local measures for cellulitis Continue home diuretic Rx Replace potassium Fall precautions PT OT eval Nicotine patch as needed DVT prophylaxis. Lovenox Coumadin bridge Rx, goal INR between 2 and 3 Full code Text document was generated using [employer] voice recognition software. It may contain grammatical or spelling errors. Kindly contact undersigned for clarification of any documentation item in question. History of Present Illness Chief Complaint: Painful right leg swelling Primary Care Provider: Dr. Lavern Gomez History obtained from patient and records. Limited history from patient secondary to lethargy post IV Ativan administration at the ER. Medical history significant for chronic diastolic heart failure (EF 60 to 65%, TTE 2020), TAA, hypercoagulopathy (hx PE/DVT/protein C deficiency on Coumadin, hypertension, PSVT, PVD, BRANDIE (CPAP intolerance), Edenilson-Danlos syndrome, bronchial asthma, chronic anemia (baseline hemoglobin 10-11 ), Parkinson's disease, mood disorder, hypothyroidism, fibromyalgia on buprenorphine patch , restless leg syndrome, ambulatory dysfunction, history gastric bypass, intermittent tobacco abuse. Last confinement March 2021 for sepsis secondary to. No growth on cultures. LLE cellulitis patient discharged on Keflex course. Patient fell off a chair last week landing on her right side. Subsequent swelling both legs more on the right. No chest pain, no SOB, no head trauma. No syncope. Worsening swelling on the right leg and inability to walk. Patient consulted ER. Ceftriaxone given for RLE cellulitis. Patient currently lethargic post IV Ativan administration at the ER. 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 Allergies Allergy/AdvReac Type Severity Reaction Status Date / Time ammonia Allergy Severe FACE, Verified 03/16/21 19:08 LIPS, TONGUE EDEMA buspirone Allergy Severe NEURO Verified 03/16/21 19:08 COMPLICATIONS duloxetine Allergy Intermediate RASH Verified 03/16/21 19:08 ITCHING lisinopril Allergy Intermediate cough Verified 03/16/21 19:08 adhesive Allergy Mild skin tears Verified 03/16/21 19:08 NSAIDS (Non-Steroidal Allergy Unknown not Verified 03/16/21 19:08 Anti-Inflamma supposed to use-S/P GASTRIC BYPASS vancomycin Allergy Unknown ON [facility] MED Verified 03/16/21 19:08 LIST venlafaxine Allergy Unknown AFFECTS Verified 03/16/21 19:08 LEGS diphenhydramine AdvReac Intermediate RESTLESS Verified 03/16/21 19:08 LEGS gabapentin AdvReac Intermediate MUSCLE Verified 03/16/21 19:08 STIFFNESS POLLEN Allergy Severe FACE, Uncoded 03/16/21 19:08 LIPS, TONGUE EDEMA Dust Allergy Intermediate ROACHES,DUST Uncoded 03/16/21 19:08 MITES-CLOGGED UP SINUSES-CAN'T BREATHE Home Medications Medication Instructions Recorded Confirmed Type L.acidoph-L.rhamn-B.bifidum-B.long 2 tab PO DAILY 01/09/22 01/09/22 History 12.9 mg (2 billion cell) tabletDR (Probiotic Acidophilus Jimmie) albuterol sulfate 90 mcg/actuation 2 inh INHALATION Q6 PRN 01/09/22 01/09/22 History aerosol inhaler atorvastatin 20 mg tablet 20 mg PO QAM 01/09/22 01/09/22 History biotin 1 mg tablet 1 mg PO DAILY 01/09/22 01/09/22 History buprenorphine 15 mcg/hour weekly 1 patch TOPICAL WK 01/09/22 01/09/22 History transdermal patch calcium citrate 150 mg capsule 0 mg PO BID 01/09/22 01/09/22 History carbidopa 25 mg-levodopa 100 mg 1 tab PO QID 01/09/22 01/09/22 History tablet clindamycin phosphate 1 % topical 1 applic TOPICAL BID PRN 01/09/22 01/09/22 History gel cromolyn 4 % eye drops 1 drp OPL QID PRN 01/09/22 01/09/22 History cyanocobalamin (vitamin B-12) 1,000 mcg MO 01/09/22 01/09/22 History 1,000 mcg/mL injection syringe diclofenac sodium 1 % topical gel 2 g TOPICAL QID 01/09/22 01/09/22 History docusate sodium 50 mg capsule 50 mg PO BID PRN 01/09/22 01/09/22 History ergocalciferol (vitamin D2) 1,250 1,250 mcg PO WK 01/09/22 01/09/22 History mcg (50,000 unit) capsule (Vitamin D2) fluticasone 100 mcg-salmeterol 50 1 inh INHALATION BID 01/09/22 01/09/22 History mcg/dose blistr powdr for inhalation (Advair Diskus) fluticasone propionate 110 2 puff INHALATION BID 01/09/22 01/09/22 History mcg/actuation HFA aerosol inhaler fluticasone propionate 50 2 spray INTRANASAL DAILY 01/09/22 01/09/22 History mcg/actuation nasal spray,suspension (Flonase Allergy Relief) furosemide 40 mg tablet 40 - 80 mg PO DAILY 01/09/22 01/09/22 History hydroxyzine HCl 25 mg tablet 25 mg PO Q6 PRN 01/09/22 01/09/22 History ipratropium 0.5 mg-albuterol 3 mg 3 ml INHALATION QID 01/09/22 01/09/22 History (2.5 mg base)/3 mL nebulization soln ipratropium bromide 21 mcg (0.03 1 spray INTRANASAL QID 01/09/22 01/09/22 History %) nasal spray levothyroxine 50 mcg tablet 50 mcg PO DAILY 01/09/22 01/09/22 History lidocaine HCl 2.8 % topical gel 1 applic TOPICAL BID PRN 01/09/22 01/09/22 History linaclotide 290 mcg capsule 290 mcg PO DAILY 01/09/22 01/09/22 History (Linzess) meclizine 25 mg tablet 25 mg PO TID PRN 01/09/22 01/09/22 History metaxalone 800 mg tablet 800 mg PO QID 01/09/22 01/09/22 History metoprolol tartrate 25 mg tablet 12.5 mg PO QPM 01/09/22 01/09/22 History montelukast 10 mg tablet 10 mg PO HS 01/09/22 01/09/22 History omega-3 fatty acids 1,000 mg PO DAILY 01/09/22 01/09/22 History omeprazole 20 mg capsule,delayed 40 mg PO DAILY 01/09/22 01/09/22 History release ondansetron HCl 4 mg tablet 4 mg PO Q12 PRN 01/09/22 01/09/22 History potassium chloride 20 mEq oral 20 meq PO AMHS 01/09/22 01/09/22 History packet (Klor-Con) ropinirole 2 mg tablet See Rx Instructions .ROUTE .COMPLEX 01/09/22 01/09/22 History sennosides 8.6 mg-docusate sodium 1 tab-cap PO BID 01/09/22 01/09/22 History 50 mg tablet (Senna-S) thiamine HCl (vitamin B1) 100 mg 100 mg PO BID 01/09/22 01/09/22 History tablet triamcinolone acetonide 0.1 % 1 applic TOPICAL BID 01/09/22 01/09/22 History topical cream triamcinolone acetonide 0.1 % 1 applic TOPICAL BID PRN 01/09/22 01/09/22 History topical cream vit C 250 mg-vit E 90 mg-zinc 40 1 tab PO BID 01/09/22 01/09/22 History mg-copper 1 [id number] capsule (PreserVision AREDS-2) warfarin 2.5 mg tablet 0 mg PO DIRECTED 01/09/22 01/09/22 History Past Med/Surg History Medical History ADHD Asthma uses PRN INH 3-4 x wk Bulging of intervertebral disc Claustrophobia Difficult intravenous access Dysphagia Edenilson-Danlos syndrome ISAC (generalized anxiety disorder) Gastroparesis GERD (gastroesophageal reflux disease) Hearing deficit History of colon polyps History of colon polyps History of DVT (deep vein thrombosis) chronic anticoagulation History of intestinal obstruction Hyperlipidemia Hypothyroidism Osteoarthritis Osteoporosis Peripheral neuropathy Protein C deficiency Pulmonary embolism 07/2018 - treated w/ lovenox - unk etiology Renal cyst Restless leg syndrome Sleep apnea unable to tolerate CPAP Tachycardia Thoracic aortic aneurysm follows w/ Dr. Arredondo - evaluated within last 6 mo Thyroid nodule Surgical History History of abdominoplasty + hernia repair History of arthroscopy of left knee History of bilateral breast reduction surgery History of cholecystectomy History of colonoscopy History of esophagogastroduodenoscopy (EGD) History of gastric bypass History of intestinal surgery History of laparotomy History of left knee replacement History of right knee joint replacement History of tonsillectomy Hx of melanoma excision shoulder S/P hysterectomy Self extubation attempted post gastric bypass Status post biopsy of thyroid gland benign Family History Uncle Stomach cancer Other No family history of adverse response to anesthesia No pertinent family history in first degree relatives Social History Smoking Status: Never smoker Second Hand Exposure: Yes; Hx Alcohol Use: Yes Alcohol type: wine and hard liquor Hx Substance Use: No Preferred Language: Turkmen Communication Ability: Effective Visual Impairment: Limited Hearing Ability: Normal 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 Beliefs That Will Affect Care: None Current Living Situation: Alone Current Living Situation Comment: has friends to help when needed Feels Safe at Home: Yes Assistive Devices: Walker Review of Systems Review of Systems: Could not be reliably obtained secondary to lethargy Physical Exam Physical Exam: GENERAL: uncomfortable, lethargic, morbidly obese, looks younger for stated age, no respiratory distress SKIN: Pallor , warm HEENT: Pale palpebral conjunctivae, no ptosis, dry buccal mucosa NECK : Supple, short neck, no tenderness CHEST : Decreased breath sounds , no tenderness HEART : RRR, no obvious murmurs ABDOMEN: Some distention, nontender EXTREMITIES : Tender indurated RLE, no other conspicuous deformities noted NEUROLOGIC : Lethargic, no facial asymmetry, no other gross focality Results & Data Results & Data ([facility]) Vital Signs (Past 12 Hours) Vital Signs Temp Pulse Pulse Resp BP BP Pulse Ox 01/10/22 00:00 93 H 19 98 01/09/22 23:00 88 17 98 01/09/22 21:37 90 19 104/79 95 01/09/22 19:07 36.7 C 87 19 125/90 98 Laboratory Results Laboratory Results WBC 11.48 K/uL (4.8-10.8) H 01/09/22 23:05 RBC 3.52 M/uL (4.2-5.4) L 01/09/22 23:05 Hgb 10.4 g/dL (12.0-16.0) L 01/09/22 23:05 Hct 32.6 % (37-47) L 01/09/22 23:05 MCV 92.6 fL (80-100) 01/09/22 23:05 MCH 29.5 pg (25-34) 01/09/22 23:05 MCHC 31.9 g/dL (32-36) L 01/09/22 23:05 RDW Std Deviation 52.8 fL (36.4-46.3) H 01/09/22 23:05 RDW Coeff of Neftaly 15.5 % (11.5-14.5) H 01/09/22 23:05 Plt Count 213 K/uL (130-400) 01/09/22 23:05 MPV 9.7 fL (7.4-10.4) 01/09/22 23:05 Immature Gran % (Auto) 0.2 % 01/09/22 23:05 Neut % (Auto) 89.5 % 01/09/22 23:05 Lymph % (Auto) 6.3 % 01/09/22 23:05 [place] % (Auto) 3.9 % 01/09/22 23:05 Eos % (Auto) 0.0 % 01/09/22 23:05 Baso % (Auto) 0.1 % 01/09/22 23:05 Neut # (Auto) 10.28 K/uL (1.4-6.5) H 01/09/22 23:05 Lymph # (Auto) 0.72 K/uL (1.2-3.4) L 01/09/22 23:05 [place] # (Auto) 0.45 K/uL (0.11-0.59) 01/09/22 23:05 Eos # (Auto) 0.00 K/uL (0-0.5) 01/09/22 23:05 Baso # (Auto) 0.01 K/uL (0-0.2) 01/09/22 23:05 Immature Gran # (Auto) 0.02 K/uL (0.00-0.02) 01/09/22 23:05 Absolute Nucleated RBC Cancelled 01/09/22 21:27 Nucleated RBC % (auto) Cancelled 01/09/22 21:27 Neutrophils % (Manual) Cancelled 01/09/22 21:27 Band Neutrophils % Cancelled 01/09/22 21:27 Lymphocytes % (Manual) Cancelled 01/09/22 21:27 Prolymphocyte % Cancelled 01/09/22 21:27 Reactive Lymphs % (Man) Cancelled 01/09/22 21:27 Monocytes % (Manual) Cancelled 01/09/22 21:27 Eosinophils % (Manual) Cancelled 01/09/22 21:27 Basophils % (Manual) Cancelled 01/09/22 21:27 Metamyelocytes % (Man) Cancelled 01/09/22 21:27 Myelocytes % (Man) Cancelled 01/09/22 21:27 Promyelocytes % (Man) Cancelled 01/09/22 21:27 Blast Cells % (Manual) Cancelled 01/09/22 21:27 Plasma Cell % (Manual) Cancelled 01/09/22 21:27 Other Cells % Cancelled 01/09/22 21:27 Nucleated RBC % Cancelled 01/09/22 21:27 Neutrophils # (Manual) Cancelled 01/09/22 21:27 Band Neutrophils # Cancelled 01/09/22 21:27 Total Absolute Neuts Cancelled 01/09/22 21:27 Lymphocytes # (Manual) Cancelled 01/09/22 21:27 Prolymphocyte # Cancelled 01/09/22 21:27 Reactive Lymphs # Cancelled 01/09/22 21:27 Total Abs Lymphocytes Cancelled 01/09/22 21:27 Monocytes # (Manual) Cancelled 01/09/22 21:27 Eosinophils # (Manual) Cancelled 01/09/22 21:27 Basophils # (Manual) Cancelled 01/09/22 21:27 Metamyelocytes # (Man) Cancelled 01/09/22 21:27 Myelocytes # (Manual) Cancelled 01/09/22 21:27 Promyelocytes # (Man) Cancelled 01/09/22 21:27 Blast Cells # (Man) Cancelled 01/09/22 21:27 Plasma Cell # (Manual) Cancelled 01/09/22 21:27 Other Cells # Cancelled 01/09/22 21:27 Nucleated RBCs # (Man) Cancelled 01/09/22 21:27 Hypersegmented Neuts Cancelled 01/09/22 21:27 Hyposegmented Neuts Cancelled 01/09/22 21:27 Hypogranular Neuts Cancelled 01/09/22 21:27 Large Granular Lymphs Cancelled 01/09/22 21:27 # Lrg Granular Lymphs Cancelled 01/09/22 21:27 Hairy Cells Cancelled 01/09/22 21:27 Smudge Cells Cancelled 01/09/22 21:27 Toxic Granulation Cancelled 01/09/22 21:27 Toxic Vacuolation Cancelled 01/09/22 21:27 Dohle Bodies Cancelled 01/09/22 21:27 [place] Cancelled 01/09/22 21:27 Platelet Estimate Cancelled 01/09/22 21:27 Hypogranular Platelets Cancelled 01/09/22 21:27 Clumped Platelets Cancelled 01/09/22 21:27 Giant Platelets Cancelled 01/09/22 21:27 Platelet Satelliting Cancelled 01/09/22 21:27 RBC Morphology Cancelled 01/09/22 21:27 Polychromasia Cancelled 01/09/22 21:27 Hypochromasia Cancelled 01/09/22 21:27 Poikilocytosis Cancelled 01/09/22 21:27 Basophilic Stippling Cancelled 01/09/22 21:27 Anisocytosis Cancelled 01/09/22 21:27 Microcytosis Cancelled 01/09/22 21:27 Macrocytosis Cancelled 01/09/22 21:27 Spherocytes Cancelled 01/09/22 21:27 Pappenheimer Bodies Cancelled 01/09/22 21:27 Sickle Cells Cancelled 01/09/22 21:27 Target Cells Cancelled 01/09/22 21:27 Tear Drop Cells Cancelled 01/09/22 21:27 Ovalocytes Cancelled 01/09/22 21:27 Stomatocytes Cancelled 01/09/22 21:27 Parmar-Shokan Bodies Cancelled 01/09/22 21:27 Echinocytes Cancelled 01/09/22 21:27 Acanthocytes (Spur) Cancelled 01/09/22 21:27 Rouleaux Cancelled 01/09/22 21:27 RBC Agglutinates Cancelled 01/09/22 21:27 Schistocytes Cancelled 01/09/22 21:27 Sezary Cell Cancelled 01/09/22 21:27 PT 17.2 Seconds (9.0-12.0) H 01/09/22 23:05 INR 1.7 (0.9-1.1) H 01/09/22 23:05 APTT 44.6 Seconds (21.0-31.0) H 01/09/22 23:05 PTT Ratio 1.6 01/09/22 23:05 Sodium 138 mmol/L (136-145) 01/09/22 21:27 Potassium 3.1 mmol/L (3.5-5.1) L 01/09/22 21:27 Chloride 108 mmol/L (98-107) H 01/09/22 21:27 Carbon Dioxide 21 mmol/L (21-32) 01/09/22 21:27 Anion Gap 9 (3-11) 01/09/22 21:27 BUN 21 mg/dl (6-23) 01/09/22 21: Creatinine 0.65 mg/dl (0.6-1.2) 01/09/22 21:27 Est Cr Clr Drug Dosing 81.6 ml/min 01/09/22 21:27 Est GFR ( Amer) 103.5 ml/min 01/09/22 21:27 Est GFR (Non-Af Amer) 89.3 ml/min 01/09/22 21:27 BUN/Creatinine Ratio 32.3 (10-20) H 01/09/22 21:27 Glucose 95 mg/dl (70-99(Fasting)) 01/09/22 21:27 Lactate 0.9 mmol/L (0.4-2.0) 01/09/22 23:05 Calcium 8.5 mg/dl (8.5-10.1) 01/09/22 21: Magnesium 1.7 mg/dl (1.7-2.4) 01/09/22 21:27 Total Bilirubin 1.1 mg/dl (0.2-1.0) H 01/09/22 21:27 AST 19 U/L (13-39) 01/09/22 21:27 ALT 17 U/L (7-52) 01/09/22 21:27 Alkaline Phosphatase 58 U/L (34-104) 01/09/22 21:27 Total Protein 5.5 gm/dl (6.0-8.3) L 01/09/22 21:27 Albumin 3.2 gm/dl (3.4-5.0) L 01/09/22 21: Globulin 2.3 gm/dl (2.5-4.0) L 01/09/22 21: Albumin/Globulin Ratio 1.4 (0.9-2) 01/09/22 21:27 Urine Color Dark Yellow 01/09/22 21:21 Urine Appearance Clear (Clear) 01/09/22 21: Urine pH 5.5 (4.5-7.5) 01/09/22 21: Ur Specific [place] 1.021 (1.000-1.030) 01/09/22 21:21 Urine Protein Trace (Negative) H 01/09/22 21:21 Urine Glucose (UA) Negative (Negative) 01/09/22 21:21 Urine Ketones Negative (Negative) 01/09/22 21:21 Urine Blood Negative (Negative) 01/09/22 21:21 Urine Nitrite Negative (Negative) 01/09/22 21:21 Urine Bilirubin Negative (Negative) 01/09/22 21:21 Urine Urobilinogen Negative (Negative) 01/09/22 21:21 Ur Leukocyte Esterase Negative (Negative) 01/09/22 21:21 Urine WBC (Auto) 1-5 /hpf (0-5) 01/09/22 21:21 Urine RBC (Auto) 0-4 /hpf (0-4) 01/09/22 21:21 U Hyaline Cast (Auto) 1-5 /lpf (0-5) 01/09/22 21:21 U Epithel Cells (Auto) 10-20 /lpf (0-5) H 01/09/22 21:21 Urine Bacteria (Auto) Negative (Negative) 01/09/22 21:21 SARS-CoV-2, RNA, NAAT NEGATIVE (NEGATIVE) 01/09/22 22:30 Diagnostic Findings Bilateral LE venous Dopplers initial read: No evidence of DVT in the bilateral lower extremities. Evaluation of the calves is limited secondaryto skin rash and pain. No comparisons. CT right femur initial read: Mild subcutaneous edema in the thigh with enlarged greater saphenous vein with venous varices concerning for chronic venous insufficiency. Mild calcified atherosclerotic disease of the SFAand popliteal arteries. Status post right knee arthroplastywith expected postsurgical changes. No evidence of abscess or osteomyelitis. No comparisons CT right tibia-fibula initial read: Extensive edema in the thigh extending to the ankle with enlarged greater saphenous vein concerning for chronic venous insufficiency. Status post knee arthroplastywith expected postsurgical changes. No evidence of abscess or osteomyelitis. No comparisons. Chest x-ray as per my interpretation cardiomegaly, elevated right hemidiaphragm, no congestion Code Status & VTE Plan VTE Prophylaxis Plan VTE Prophylaxis will be ordered: Yes
[2022-01-10] MEDS ORDERED: ALBUMIN 25% 100 mL 25 GM/100 ML VIAL IV ONE (02:05)
[2022-01-10] MEDS ORDERED: DOCUSATE SODIUM SYRUP 100 MG/10 ML UDC PO PRN (02:36)
[2022-01-10] MEDS ORDERED: PROMETHAZINE HCL 12.5 MG in SODIUM CHLORIDE 0.9% 50 ML IV PRN (02:36)
[2022-01-10] MEDS ORDERED: LIDOCAINE HCL TOP PRN (02:36)
[2022-01-10] MEDS ORDERED: WARFARIN SOD 5 MG TAB PO ONE (02:42)
[2022-01-10] MEDS: ENOXAPARIN 100 MG/1ML SYR SQ SCH ×2 (03:45→15:56)
[2022-01-10] MEDS: LEVOTHYROXINE SODIUM 50 MCG TABLET PO SCH (05:56)
--- NOTE | 2022-01-10 06:57 | Ultrasound Report ---
BILATERAL LOWER EXTREMITY VENOUS DOPPLER HISTORY: Acute pain and swelling of the right lower leg pain/swelling COMPARISON STUDY: None. FINDINGS: There is normal compressibility, flow, and augmentation within the bilateral lower extremit y deep venous systems. Limited visualization of the calf veins secondary to patient body habitus and subcutaneous edema. IMPRESSION: No DVT within the right or left lower extremity. ACT 112: Negative or not required by law. Electronically signed by: Keshawn Foster M.D. 01/10/2022 6:55 AM
--- NOTE | 2022-01-10 07:28 | XRay Report ---
SINGLE VIEW CHEST CLINICAL HISTORY: Lower extremity edema FINDINGS: An AP, portable, upright chest radiograph is compared to study dated 03/16/2021. The heart is enlarged. The pulmonary vasculature is noncongested. The lungs and pleural spaces are clear noting m inimal bibasilar atelectasis. No pneumothorax is seen. The skeletal structures are osteopenic. The enrique ny thorax is grossly intact. Arthritic change is seen in the shoulders. IMPRESSION: Cardiomegaly with no active disease in the chest. ACT 112: Negative or not required by law. Electronically signed by: Julian Sibley M.D. 01/10/2022 7:27 AM
[2022-01-10] MEDS: hydrOXYzine HCl 25 MG TAB PO PRN (08:06)
[2022-01-10] MEDS: ACETAMINOPHEN 325 MG TAB PO PRN ×2 (08:06→22:22)
[2022-01-10] MEDS: DICLOFENAC SOD 1% GEL 100 GM TUBE EXT SCH ×4 (08:07→20:32)
[2022-01-10] MEDS: PANTOprazole 40 MG TAB PO SCH (08:07)
[2022-01-10] MEDS: THIAMINE HCL 100 MG TAB PO SCH ×2 (08:07→20:29)
[2022-01-10] MEDS: ADVANCED PROBIOTIC 1250 MG CAPSULE PO SCH (08:07)
[2022-01-10] MEDS: LINACLOTIDE 145 MCG CAPSULE PO SCH (08:07)
[2022-01-10] MEDS: rOPINIRole HCL 1 MG TABLET PO SCH ×4 (08:07→20:31)
[2022-01-10] MEDS: CARBIDOPA/LEVODOPA 25/100MG TAB PO SCH ×4 (08:08→20:31)
[2022-01-10] MEDS: DOCUSATE SODIUM/SENNA 50/8.6MG TAB PO SCH ×2 (08:08→20:30)
[2022-01-10] MEDS: FLUTICASONE/VILANTEROL 100/25MCG 14 PUFFS/INHALER INH SCH (08:10)
[2022-01-10] MEDS: FLUTICASONE FUROATE 200MCG 14 PUFFS/INHALER INH SCH (08:10)
[2022-01-10 08:11] LABS: Basophils # (auto) 0.01 K/uL (0-0.2); Basophils % (auto) 0.1 %; Eosinophils # (auto) 0.02 K/uL (0-0.5); Eosinophils % (auto) 0.2 %; Hematocrit (blood only) 29.2 % (37-47); Hemoglobin 9.4 g/dL (12.0-16.0); Immature Granulocytes # (auto) 0.03 K/uL (0.00-0.02); Immature Granulocytes % (auto) 0.3 %; Lymphocytes # (auto) 0.59 K/uL (1.2-3.4); Lymphocytes % (auto) 6.3 %; Mean Corpuscular Hemoglobin 29.9 pg (25-34); Mean Corpuscular Hgb Conc 32.2 g/dL (32-36); Mean Platelet Volume 10.1 fL (7.4-10.4); Monocytes # (auto) 0.38 K/uL (0.11-0.59); Monocytes % (auto) 4.1 %; Neutrophils # (auto) 8.35 K/uL (1.4-6.5); Platelet Count 192 K/uL (130-400); RDW Coefficient of Variation 15.5 % (11.5-14.5); RDW Standard Deviation 52.3 fL (36.4-46.3); Red Blood Count 3.14 M/uL (4.2-5.4); White Blood Count 9.38 K/uL (4.8-10.8)
[2022-01-10] MEDS: FLUTICASONE PROPIONATE NA SPR 16 GM BTL SCH (08:11)
[2022-01-10] MEDS: IPRATROPIUM BROMIDE NASAL SPRAY 0.06% 15ML NAE SCH ×4 (08:11→20:29)
[2022-01-10 08:25] LABS: BUN Creatinine Ratio 35.2 (10-20); Calcium 8.4 mg/dl (8.5-10.1); Creatinine Clr Calc Pharmacy 96.7 ml/min; Est GFR (Non-African American) 94.9 ml/min; Potassium 3.3 mmol/L (3.5-5.1)
[2022-01-10 08:29] LABS: INR 1.9 (0.9-1.1); Prothrombin Time 19.7 Seconds (9.0-12.0)
--- NOTE | 2022-01-10 08:39 | CT Scan Report ---
CT tib/fib RT wo con, CT femur RT wo con HISTORY: 71 years-old Female swelling/hx trauma acute pain and swelling of the right lower extremity COMPARISON: Left femur and tibia/fibula CT studies 03/17/2021 TECHNIQUE: Multiple axial CT images of the right femur, tibia and fibula were obtained without the us e of IV contrast. A dose lowering technique was used consistent with the principals of ANAIS. FINDINGS: FEMUR: No acute abnormality of the imaged intrapelvic structures. Hysterectomy. Arterial calcifications. Memo ateral knee total joint arthroplasties redemonstrated. Streak artifact from the arthroplasties limits the study. There is nonspecific diffuse subcutaneous edema. Subcutaneous varicosities. No discrete f luid collection. Diffuse muscle atrophy without intramuscular hematoma. Demineralized appearance of t he bones. No acute fracture, dislocation or opaque foreign body. No suspicious bone lesions. TIBIA/FIBULA: Skin thickening with extensive diffuse subcutaneous edema. Lower extremity varicosities. No intramusc ular or subcutaneous fluid collections. No acute fracture or dislocation. Osteoarthritis of the foot and ankle. 5 mm osteochondral defect of the lateral talar dome. Demineralized appearance of the bones . Degenerative spurring of the calcaneus. IMPRESSION: 1. No acute fracture, dislocation or osseous erosion. 2. Diffuse subcutaneous edema with skin thickening of the right lower extremity, greatest within the lower leg. Differential considerations include cellulitis, lymphedema or venous stasis. 3. Unremarkable appearance of the knee total joint arthroplasty. 4. Subcentimeter osteochondral defect of the talar dome. ACT 112: Negative or not required by law. The above report was generated using voice recognition software. It may contain grammatical, syntax o r spelling errors. Electronically signed by: Keshawn Foster M.D. 01/10/2022 8:38 AM
[2022-01-10] MEDS ORDERED: FUROSEMIDE 40 MG TAB PO SCH (09:00)
[2022-01-10] MEDS ORDERED: NON-FORMULARY MEDICATION (Biotin 1 mg Tablet) PO SCH (09:00)
[2022-01-10] MEDS ORDERED: ATORVASTATIN 20 MG TAB PO SCH (09:00)
[2022-01-10] MEDS ORDERED: BUPRENORPHINE 5 MCG/HR TDSY TD SCH ×2 (10:00)
[2022-01-10] MEDS ORDERED: BUPRENORPHINE 10 MCG/HR TDSY TD SCH (10:00)
[2022-01-10] MEDS ORDERED: POTASSIUM CHLORIDE CRTAB 20 MEQ TABCR PO STA (13:53)
[2022-01-10] MEDS: CHECK BUPRENORPHINE PATCH SCH ×2 (17:13→23:08)
[2022-01-10] MEDS ORDERED: LORazepam 0.5 MG TAB PO STA (19:08)
--- NOTE | 2022-01-10 19:18 | Hospitalist Progress Note ---
Date of Service January 10, 2022 Assessment & Plan (1) Cellulitis of leg, right: Plan: per Dr. Delaney's notes with addendum: Underlying chronic venous insufficiency on diuretic Rx Secondary to trauma History ambulatory dysfunction/Parkinson's disease/RLS No sepsis for now chronic diastolic heart failure (EF 60 to 65%, TTE 2020) patient euvolemic TAA, patient declined surgery as per outpatient Cardiology documentation hypercoagulopathy (hx PE/DVT/protein C deficiency on Coumadin, INR slightly subtherapeutic hypertension, stable hx PVD BRANDIE (CPAP intolerance) hx Edenilson-Danlos syndrome bronchial asthma, stable chronic anemia hemoglobin at baseline hypothyroidism, euthyroid as of today's TSH hx fibromyalgia on buprenorphine patch history gastric bypass Hypokalemia secondary diuretic Rx intermittent tobacco abuse start IV Lasix 40mg IV BID IV Daptomycin + Cefepime ff up cultures Solumedrol 40mg IV one dose as patient reports exposure to poison IV continue Lovenox + Coumadin check INR daily monitor K Ativan PRN for anxiety Admission and Anticipated Discharge Date Admission Date: January 10, 2022 Subjective ff up for BLE cellulitis, etc seen resting in bed, not in distress still having Memo LE pain no fever/chills no chest pain, dyspnea, palpitations, dizziness no other symptoms Review of Systems Review of Systems: all noted and negative except for above Physical Exam Physical Exam: General- oriented x 3, not in distress, speaks in sentences with no effort or accessory muscle use Eyes- anicteric Neck- no JVD Lungs- clear breath sounds bilaterally, no rales/wheezes Heart- normal rate, regular rhythm; no murmurs Abdomen- normal bowel sounds, nondistended, soft, nontender Extremities- (+) lower extremity erythema, edema grade 2 Neuro- alert, oriented x 3; no gross focal neurologic deficits Skin- warm & dry Results & Data Results & Data ([facility]) Vital Signs (Past 12 Hours) Vital Signs Temp Pulse Resp BP Pulse Ox 01/10/22 15:11 36.6 C 92 H 20 118/65 97 01/10/22 07:55 36.6 C 78 16 108/64 97 all noted and reviewed including below
[2022-01-10] MEDS ORDERED: methylPREDNISolone 40 MG in SYRINGE 0 ML IV ONE (19:30)
[2022-01-10] MEDS: DAPTOmycin 250 MG in SYRINGE 0 ML IV SCH (20:27)
[2022-01-10] MEDS: FUROSEMIDE 40 MG/4 ML VIAL IV SCH (20:27)
[2022-01-10] MEDS: MONTELUKAST SODIUM 10 MG TABLET PO SCH (20:29)
[2022-01-10] MEDS: METOPROLOL TARTRATE 25 MG TAB PO SCH (20:30)
[2022-01-10] MEDS ORDERED: DOXYCYCLINE HYCLATE 100 MG CAP PO SCH (21:00)
--- NOTE | 2022-01-10 22:16 | Electrocardiogram Report ---
Test Reason : Blood Pressure : / mmHG Vent. Rate : 089 BPM Atrial Rate : 089 BPM P-R Int : 166 ms QRS Dur : 104 ms QT Int : 372 ms P-R-T Axes : 069 010 044 degrees QTc Int : 452 ms Poor data quality, interpretation may be adversely affected Normal sinus rhythm Possible Left atrial enlargement Incomplete right bundle branch block Borderline ECG When compared with ECG of 16-MAR-2021 19:12, No significant change was found Confirmed by Alexey Jennings ([id number]) on 01/10/2022 10:16:09 PM Referred By: REFERRED SELF Confirmed By:Alexey Jennings
[2022-01-11] MEDS: LORazepam 0.5 MG TAB PO PRN ×3 (01:41→20:01)
[2022-01-11] MEDS: ENOXAPARIN 100 MG/1ML SYR SQ SCH (02:52)
[2022-01-11] MEDS: ACETAMINOPHEN 325 MG TAB PO PRN ×3 (03:23→20:14)
[2022-01-11] MEDS: hydrOXYzine HCl 25 MG TAB PO PRN (04:56)
[2022-01-11] MEDS ORDERED: LORazepam 0.5 MG TAB PO STA (05:51)
[2022-01-11] MEDS: LEVOTHYROXINE SODIUM 50 MCG TABLET PO SCH (06:02)
[2022-01-11 07:32] LABS: INR 2.2 (0.9-1.1); Prothrombin Time 22.3 Seconds (9.0-12.0)
[2022-01-11] MEDS: CHECK BUPRENORPHINE PATCH SCH ×2 (07:51→16:39)
[2022-01-11] MEDS: PANTOprazole 40 MG TAB PO SCH (08:36)
[2022-01-11] MEDS: CARBIDOPA/LEVODOPA 25/100MG TAB PO SCH ×4 (08:36→19:56)
[2022-01-11] MEDS: ADVANCED PROBIOTIC 1250 MG CAPSULE PO SCH (08:36)
[2022-01-11] MEDS: rOPINIRole HCL 1 MG TABLET PO SCH ×4 (08:36→20:00)
[2022-01-11] MEDS: FUROSEMIDE 40 MG/4 ML VIAL IV SCH ×2 (08:36→19:55)
[2022-01-11] MEDS: LINACLOTIDE 145 MCG CAPSULE PO SCH (08:36)
[2022-01-11] MEDS: THIAMINE HCL 100 MG TAB PO SCH ×2 (08:36→20:00)
[2022-01-11] MEDS: FLUTICASONE FUROATE 200MCG 14 PUFFS/INHALER INH SCH (08:37)
[2022-01-11] MEDS: FLUTICASONE PROPIONATE NA SPR 16 GM BTL SCH (08:37)
[2022-01-11] MEDS: IPRATROPIUM BROMIDE NASAL SPRAY 0.06% 15ML NAE SCH ×4 (08:37→19:58)
[2022-01-11] MEDS: FLUTICASONE/VILANTEROL 100/25MCG 14 PUFFS/INHALER INH SCH (08:37)
[2022-01-11] MEDS: DOCUSATE SODIUM/SENNA 50/8.6MG TAB PO SCH ×2 (08:38→19:58)
[2022-01-11] MEDS: DICLOFENAC SOD 1% GEL 100 GM TUBE EXT SCH ×4 (08:38→19:57)
[2022-01-11] MEDS ORDERED: WARFARIN SOD 2.5 MG TAB PO SCH (11:30)
[2022-01-11 13:23] LABS: Hematocrit (blood only) 33.8 % (34.1-44.9); Mean Corpuscular Hgb Conc 32.5 g/dL (32.0-36.0); Mean Corpuscular Volume 92.1 fL (80.0-100.0); Mean Platelet Volume 10.3 fL (9.4-12.3); Platelet Count 210 K/uL (130-400); RDW Coefficient of Variation 15.1 % (11.5-14.5); RDW Standard Deviation 51.7 fL (36.4-46.3); Red Blood Count 3.67 M/uL (3.93-5.22); White Blood Count 9.72 K/ul (4.8-10.8)
[2022-01-11 13:31] LABS: BUN Creatinine Ratio 26.8 (10-20); Calcium 9.9 mg/dl (8.5-10.1); Creatinine Clr Calc Pharmacy 73.5 ml/min; Est GFR (African American) 99.3 ml/min; Est GFR (Non-African American) 85.7 ml/min; Magnesium 1.7 mg/dl (1.7-2.4); Phosphorus 2.6 mg/dl (2.5-4.9); Potassium 3.8 mmol/L (3.5-5.1)
[2022-01-11] MEDS: METAXALONE 800 MG TABLET PO SCH ×3 (15:07→19:58)
[2022-01-11] MEDS ORDERED: WARFARIN SOD 5 MG TAB PO SCH (16:00)
[2022-01-11] MEDS: WARFARIN SOD 2.5 MG TAB PO SCH (16:39)
[2022-01-11] MEDS: DAPTOmycin 250 MG in SYRINGE 0 ML IV SCH (19:54)
[2022-01-11] MEDS: METOPROLOL TARTRATE 25 MG TAB PO SCH (19:58)
[2022-01-11] MEDS: MONTELUKAST SODIUM 10 MG TABLET PO SCH (20:00)
[2022-01-12] MEDS: CHECK BUPRENORPHINE PATCH SCH ×4 (00:47→23:53)
--- NOTE | 2022-01-12 02:08 | Hospitalist Progress Note ---
Date of Service January 11, 2022 Assessment & Plan (1) Cellulitis of leg, right: Plan: Underlying chronic venous insufficiency on diuretic Rx Secondary to trauma History ambulatory dysfunction/Parkinson's disease/RLS No sepsis Chronic diastolic heart failure (EF 60 to 65%, TTE 2020) patient euvolemic TAA, patient declined surgery as per outpatient Cardiology documentation hypercoagulopathy (hx PE/DVT/protein C deficiency on Coumadin, monitor INR hypertension, stable hx PVD BRANDIE (CPAP intolerance) hx Edenilson-Danlos syndrome bronchial asthma, stable chronic anemia hemoglobin at baseline hypothyroidism, euthyroid as of today's TSH hx fibromyalgia on buprenorphine patch history gastric bypass Hypokalemia , hypomag. secondary diuretic Rx, replete and monitor intermittent tobacco abuse Started IV Lasix 40mg IV BID for LE edema, will cont. Abx changed to IV Daptomycin + Cefepime ff up cultures Solumedrol 40mg IV one dose as patient reports exposure to poison IV (on 01/10) continue Coumadin check INR daily Ativan PRN for anxiety Admission and Anticipated Discharge Date Admission Date: January 11, 2022 Subjective Patient seen in follow-up for BLE cellulitis, etc seen resting in bed, not in distress still having Memo LE pain, erythema no fever/chills no chest pain, dyspnea, palpitations, dizziness no other symptoms Review of Systems Review of Systems: All systems reviewed & are unremarkable except as noted in Subjective Physical Exam Physical Exam: General-obese female, in no acute distress Eyes-EOMI, PERRL, anicteric Neck-supple, no JVD Lungs- clear breath sounds bilaterally, no rales/wheezes Heart- normal rate, regular rhythm; no murmurs Abdomen- normal bowel sounds, nondistended, soft, obese, nontender Extremities- (+) lower extremity erythema, edema grade 2 Neuro- alert, oriented x 3, somewhat anxious, speech fluent, no facial symmetry, moves extremity Skin- warm & dry Results & Data Results & Data ([facility]) Vital Signs (Past 12 Hours) Vital Signs Temp Pulse Pulse Resp BP BP Pulse Ox 01/11/22 22:06 36.6 C 76 20 103/67 97 01/11/22 19:52 77 125/79 01/11/22 16:04 36.7 C 91 H 16 130/88 96 Laboratory Results 01/11/22 01/11/22 01/11/22 Range/Units 12:57 12:57 08:16 WBC 9.72 (4.8-10.8) K/ul RBC 3.67 L (3.93-5.22) M/uL Hgb 11.0 L (12.0-16.0) g/dl Hct 33.8 L (34.1-44.9) % MCV 92.1 (80.0-100.0) fL MCH 30.0 (25.0-34.0) pg MCHC 32.5 (32.0-36.0) g/dL RDW Std Deviation 51.7 H (36.4-46.3) fL RDW Coeff of Neftaly 15.1 H (11.5-14.5) % Plt Count 210 (130-400) K/uL MPV 10.3 (9.4-12.3) fL PT (9.0-12.0) Seconds INR (0.9-1.1) Sodium 139 (136-145) mmol/L Potassium 3.8 (3.5-5.1) mmol/L Chloride 105 (98-107) mmol/L Carbon Dioxide 26 (21-32) mmol/L Anion Gap 8 (3-11) BUN 19 (6-23) mg/dl Creatinine 0.71 (0.6-1.2) mg/dl Est Cr Clr Drug Dosing 73.5 ml/min Est GFR ( Amer) 99.3 ml/min Est GFR (Non-Af Amer) 85.7 ml/min BUN/Creatinine Ratio 26.8 H (10-20) Glucose 163 H (70-99(Fasting)) mg/dl POC Glucose 139 H (70-99) mg/dl Calcium 9.9 (8.5-10.1) mg/dl Phosphorus 2.6 (2.5-4.9) mg/dl Magnesium 1.7 (1.7-2.4) mg/dl 01/11/22 Range/Units 06:35 WBC (4.8-10.8) K/ul RBC (3.93-5.22) M/uL Hgb (12.0-16.0) g/dl Hct (34.1-44.9) % MCV (80.0-100.0) fL MCH (25.0-34.0) pg MCHC (32.0-36.0) g/dL RDW Std Deviation (36.4-46.3) fL RDW Coeff of Neftaly (11.5-14.5) % Plt Count (130-400) K/uL MPV (9.4-12.3) fL PT 22.3 H (9.0-12.0) Seconds INR 2.2 H (0.9-1.1) Sodium (136-145) mmol/L Potassium (3.5-5.1) mmol/L Chloride (98-107) mmol/L Carbon Dioxide (21-32) mmol/L Anion Gap (3-11) BUN (6-23) mg/dl Creatinine (0.6-1.2) mg/dl Est Cr Clr Drug Dosing ml/min Est GFR ( Amer) ml/min Est GFR (Non-Af Amer) ml/min BUN/Creatinine Ratio (10-20) Glucose (70-99(Fasting)) mg/dl POC Glucose (70-99) mg/dl Calcium (8.5-10.1) mg/dl Phosphorus (2.5-4.9) mg/dl Magnesium (1.7-2.4) mg/dl
[2022-01-12] MEDS ORDERED: MAGNESIUM SULFATE / D5W 1 GM/100 ML BAG IV ONE (02:09)
[2022-01-12] MEDS: LORazepam 0.5 MG TAB PO PRN ×3 (02:23→17:21)
[2022-01-12] MEDS: ACETAMINOPHEN 325 MG TAB PO PRN ×2 (02:27→12:49)
[2022-01-12] MEDS: LEVOTHYROXINE SODIUM 50 MCG TABLET PO SCH (05:48)
[2022-01-12 06:40] LABS: Hematocrit (blood only) 31.5 % (34.1-44.9); Hemoglobin 10.4 g/dl (12.0-16.0); Mean Corpuscular Hemoglobin 29.9 pg (25.0-34.0); Mean Corpuscular Volume 90.5 fL (80.0-100.0); Mean Platelet Volume 10.2 fL (9.4-12.3); Platelet Count 209 K/uL (130-400); RDW Standard Deviation 49.5 fL (36.4-46.3); Red Blood Count 3.48 M/uL (3.93-5.22); White Blood Count 9.03 K/ul (4.8-10.8)
[2022-01-12 07:03] LABS: BUN Creatinine Ratio 34.3 (10-20); Calcium 9.3 mg/dl (8.5-10.1); Creatinine Clr Calc Pharmacy 74.6 ml/min; Est GFR (Non-African American) 87.2 ml/min; Phosphorus 3.2 mg/dl (2.5-4.9); Potassium 3.7 mmol/L (3.5-5.1)
[2022-01-12 07:09] LABS: INR 2.1 (0.9-1.1); Prothrombin Time 21.7 Seconds (9.0-12.0)
[2022-01-12] MEDS: FUROSEMIDE 40 MG/4 ML VIAL IV SCH ×2 (08:18→20:05)
[2022-01-12] MEDS: DICLOFENAC SOD 1% GEL 100 GM TUBE EXT SCH ×4 (08:19→20:07)
[2022-01-12] MEDS: CARBIDOPA/LEVODOPA 25/100MG TAB PO SCH ×4 (08:19→20:08)
[2022-01-12] MEDS: DOCUSATE SODIUM/SENNA 50/8.6MG TAB PO SCH ×2 (08:20→20:08)
[2022-01-12] MEDS: FLUTICASONE FUROATE 200MCG 14 PUFFS/INHALER INH SCH (08:20)
[2022-01-12] MEDS: FLUTICASONE/VILANTEROL 100/25MCG 14 PUFFS/INHALER INH SCH (08:20)
[2022-01-12] MEDS: FLUTICASONE PROPIONATE NA SPR 16 GM BTL SCH (08:21)
[2022-01-12] MEDS: IPRATROPIUM BROMIDE NASAL SPRAY 0.06% 15ML NAE SCH ×4 (08:21→20:09)
[2022-01-12] MEDS: ADVANCED PROBIOTIC 1250 MG CAPSULE PO SCH (08:22)
[2022-01-12] MEDS: THIAMINE HCL 100 MG TAB PO SCH ×2 (08:22→20:09)
[2022-01-12] MEDS: LINACLOTIDE 145 MCG CAPSULE PO SCH (08:23)
[2022-01-12] MEDS: rOPINIRole HCL 1 MG TABLET PO SCH ×4 (08:23→20:09)
[2022-01-12] MEDS: PANTOprazole 40 MG TAB PO SCH (08:23)
[2022-01-12] MEDS: METAXALONE 800 MG TABLET PO SCH ×4 (08:23→20:08)
[2022-01-12] MEDS: MECLIZINE HCL 25 MG TAB PO PRN (12:43)
[2022-01-12] MEDS: WARFARIN SOD 2.5 MG TAB PO SCH (15:41)
[2022-01-12] MEDS: ceFAZolin 2000MG 2,000 MG/15 ML SYR IV SCH (20:05)
[2022-01-12] MEDS: MONTELUKAST SODIUM 10 MG TABLET PO SCH (20:08)
[2022-01-12] MEDS: METOPROLOL TARTRATE 25 MG TAB PO SCH (20:13)
--- NOTE | 2022-01-12 21:22 | Hospitalist Progress Note ---
Date of Service January 12, 2022 Assessment & Plan (1) Cellulitis of leg, right: Plan: Underlying chronic venous insufficiency on diuretic Rx Secondary to trauma History ambulatory dysfunction/Parkinson's disease/RLS No sepsis Chronic diastolic heart failure (EF 60 to 65%, TTE 2020) patient euvolemic TAA, patient declined surgery as per outpatient Cardiology documentation hypercoagulopathy (hx PE/DVT/protein C deficiency on Coumadin, monitor INR hypertension, stable hx PVD BRANDIE (CPAP intolerance) hx Edenilson-Danlos syndrome bronchial asthma, stable chronic anemia hemoglobin at baseline hypothyroidism, euthyroid as of today's TSH hx fibromyalgia on buprenorphine patch history gastric bypass Hypokalemia , hypomag. secondary diuretic Rx, replete and monitor intermittent tobacco abuse Started IV Lasix 40mg IV BID for LE edema, will cont. Abx changed to IV Daptomycin + Cefepime, now much improved, blood cultures negative, continue with cefazolin Follow up final cultures Solumedrol 40mg IV one dose given as patient reports exposure to poison IV (on ) continue Coumadin check INR daily Ativan PRN for anxiety Admission and Anticipated Discharge Date Admission Date: January 11, 2022 Subjective Patient seen in follow-up for BLE cellulitis, etc seen resting in bed still having Memo LE pain, erythema - but edema and erythema much improved no fever/chills no chest pain, dyspnea, palpitations, dizziness no other symptoms Update: Late evening, patient on commode, lost balance, and hit her head to wall. Command And Control Officer was also notified. Stat CT head ordered, negative Review of Systems Review of Systems: All systems reviewed & are unremarkable except as noted in Subjective Physical Exam Physical Exam: General-obese female, in no resp. acute distress Eyes-EOMI, PERRL, anicteric Neck-supple, no JVD Lungs- clear breath sounds bilaterally, no rales/wheezes Heart- normal rate, regular rhythm; no murmurs Abdomen- normal bowel sounds, nondistended, soft, obese, nontender Extremities- (+) lower extremity erythema, edema grade 1 (much improved) Neuro- alert, oriented x 3, somewhat anxious, speech fluent, no facial symmetry, moves extremity Skin- warm & dry Results & Data Results & Data ([facility]) Vital Signs (Past 12 Hours) Vital Signs Temp Pulse Resp BP Pulse Ox 01/12/22 20:52 36.7 C 72 18 117/82 96 01/12/22 14:27 36.7 C 76 17 114/78 96 Laboratory Results 01/12/22 01/12/22 01/12/22 Range/Units 06:24 06:24 06:24 WBC 9.03 (4.8-10.8) K/ul RBC 3.48 L (3.93-5.22) M/uL Hgb 10.4 L (12.0-16.0) g/dl Hct 31.5 L (34.1-44.9) % MCV 90.5 (80.0-100.0) fL MCH 29.9 (25.0-34.0) pg MCHC 33.0 (32.0-36.0) g/dL RDW Std Deviation 49.5 H (36.4-46.3) fL RDW Coeff of Neftaly 15.0 H (11.5-14.5) % Plt Count 209 (130-400) K/uL MPV 10.2 (9.4-12.3) fL PT (9.0-12.0) Seconds INR (0.9-1.1) Sodium 138 (136-145) mmol/L Potassium 3.7 (3.5-5.1) mmol/L Chloride 103 (98-107) mmol/L Carbon Dioxide 26 (21-32) mmol/L Anion Gap 9 (3-11) BUN 24 H (6-23) mg/dl Creatinine 0.70 (0.6-1.2) mg/dl Est Cr Clr Drug Dosing 74.6 ml/min Est GFR ( Amer) 101.0 ml/min Est GFR (Non-Af Amer) 87.2 ml/min BUN/Creatinine Ratio 34.3 H (10-20) Glucose 109 H (70-99(Fasting)) mg/dl Calcium 9.3 (8.5-10.1) mg/dl Phosphorus 3.2 (2.5-4.9) mg/dl Magnesium 2.0 (1.7-2.4) mg/dl Procalcitonin 0.68 H (0-0.5) ng/ml 01/12/22 Range/Units 06:24 WBC (4.8-10.8) K/ul RBC (3.93-5.22) M/uL Hgb (12.0-16.0) g/dl Hct (34.1-44.9) % MCV (80.0-100.0) fL MCH (25.0-34.0) pg MCHC (32.0-36.0) g/dL RDW Std Deviation (36.4-46.3) fL RDW Coeff of Neftaly (11.5-14.5) % Plt Count (130-400) K/uL MPV (9.4-12.3) fL PT 21.7 H (9.0-12.0) Seconds INR 2.1 H (0.9-1.1) Sodium (136-145) mmol/L Potassium (3.5-5.1) mmol/L Chloride (98-107) mmol/L Carbon Dioxide (21-32) mmol/L Anion Gap (3-11) BUN (6-23) mg/dl Creatinine (0.6-1.2) mg/dl Est Cr Clr Drug Dosing ml/min Est GFR ( Amer) ml/min Est GFR (Non-Af Amer) ml/min BUN/Creatinine Ratio (10-20) Glucose (70-99(Fasting)) mg/dl Calcium (8.5-10.1) mg/dl Phosphorus (2.5-4.9) mg/dl Magnesium (1.7-2.4) mg/dl Procalcitonin (0-0.5) ng/ml Medications Administered Current Inpatient Medications Acetaminophen (Acetaminophen 325 Mg Tab) 650 mg PO Q4H PRN PRN Reason: pain/fever Stop: 02/09/22 02:35 Last Admin: 01/12/22 12:49 Dose: 650 mg Documented by: Buprenorphine HCl (Buprenorphine 5 Mcg/Hr Tdsy) 15 mcg TD We@1000 [facility] Stop: 02/09/22 09:59 Last Admin: 01/10/22 10:47 Dose: 15 mcg Documented by: Carbidopa/Levodopa (Carbidopa/Levodopa 25/100mg Tab) 1 tab PO QID [facility] Stop: 02/09/22 08:59 Last Admin: 01/12/22 20:08 Dose: 1 tab Documented by: Cyanocobalamin (Cyanocobalamin 1000 Mcg/Ml Vial) 1,000 mcg IM TODAY@0900 [facility] Stop: 02/05/22 11:20 Diclofenac Sodium (Diclofenac Sod 1% Gel 100 Gm Tube) 2 gm EXT QID [facility]; Protocol Stop: 02/09/22 08:59 Last Admin: 01/12/22 20:07 Dose: 2 gm Documented by: Docusate Sodium (Docusate Sodium Syrup 100 Mg/10 Ml Udc) 50 mg PO BID PRN PRN Reason: Constipation Fluticasone Furoate (Fluticasone Furoate 200mcg 14 Puffs/Inhaler) 1 puffs INH DAILY [facility] Stop: 02/09/22 08:59 Last Admin: 01/12/22 08:20 Dose: 1 puffs Documented by: Fluticasone Propionate (Fluticasone Propionate Na Spr 16 Gm Btl) 2 sprays NA DAILY [facility] Stop: 02/09/22 08:59 Last Admin: 01/12/22 08:21 Dose: 2 sprays Documented by: Fluticasone/Vilanterol (Fluticasone/Vilanterol 100/25mcg 14 Puffs/Inhaler) 1 puffs INH DAILY [facility] Stop: 02/09/22 08:59 Last Admin: 01/12/22 08:20 Dose: 1 puffs Documented by: Furosemide (Furosemide 40 Mg/4 Ml Vial) 40 mg IV Q12H [facility] Stop: 02/09/22 19:59 Last Admin: 01/12/22 20:05 Dose: 40 mg Documented by: Hydroxyzine HCl (Hydroxyzine Hcl 25 Mg Tab) 25 mg PO Q6 PRN PRN Reason: .ANX/ITCH Stop: 02/09/22 02:35 Last Admin: 01/11/22 04:56 Dose: 25 mg Documented by: Promethazine HCl 12.5 mg/ (Sodium Chloride) 50.5 mls @ 202 mls/hr IV Q6H PRN PRN Reason: Nausea And Vomiting Stop: 02/09/22 02:35 Cefazolin Sodium (Ancef 2000mg) 2,000 mg in 15 mls @ 3.75 mls/min IV Q8H [facility]; Protocol Stop: 01/17/22 19:59 Last Admin: 01/12/22 20:05 Dose: 3.75 mls/min Documented by: Ipratropium [place] (Ipratropium [place] Nasal [place] 0.06% 15ml) 1 sprays ELYSE QID [facility] Stop: 02/09/22 08:59 Last Admin: 01/12/22 20:09 Dose: 1 sprays Documented by: Lactobacillus Acidophilus (Advanced Probiotic 1250 Mg Capsule) 2 cap PO DAILY [facility] Stop: 02/09/22 08:59 Last Admin: 01/12/22 08:22 Dose: 2 cap Documented by: Levothyroxine Sodium (Levothyroxine Sodium 50 Mcg Tablet) 50 mcg PO DAILYBB [facility] Stop: 02/09/22 06:29 Last Admin: 01/12/22 05:48 Dose: 50 mcg Documented by: Linaclotide (Linaclotide 145 Mcg Capsule) 290 mcg PO DAILY [facility] Stop: 02/09/22 08:59 Last Admin: 01/12/22 08:23 Dose: 290 mcg Documented by: Lorazepam (Lorazepam 0.5 Mg Tab) 0.5 mg PO Q6H PRN PRN Reason: Anxiety Stop: 02/09/22 19:07 Last Admin: 01/12/22 17:21 Dose: 0.5 mg Documented by: Meclizine HCl (Meclizine Hcl 25 Mg Tab) 25 mg PO TID PRN PRN Reason: DIZZY Stop: 02/09/22 02:35 Last Admin: 01/12/22 12:43 Dose: 25 mg Documented by: Metaxalone (Metaxalone 800 Mg Tablet) 800 mg PO QID@0900,1200,1700,2100 [facility] Stop: 02/10/22 13:29 Last Admin: 01/12/22 20:08 Dose: 800 mg Documented by: Metoprolol Tartrate (Metoprolol Tartrate 25 Mg Tab) 12.5 mg PO QPM [facility] Stop: 02/09/22 20:59 Last Admin: 01/12/22 20:13 Dose: 12.5 mg Documented by: Miscellaneous (Cromolyn 4 % Drops: Order Awaiting Action) 1 ea N/A QS [facility] Stop: 02/09/22 07:59 Last Admin: 01/12/22 15:39 Dose: Not Given Documented by: Miscellaneous (Remove & Waste [place] Patch 1 Ea Ea) 3 ea N/A We@0959 [facility] Stop: 02/16/22 09:58 Miscellaneous (Check Buprenorphine Patch) 3 ea N/A QS [facility] Stop: 02/09/22 15:59 Last Admin: 01/12/22 15:38 Dose: 3 ea Documented by: Montelukast Sodium (Montelukast Sodium 10 Mg Tablet) 10 mg PO [facility] Stop: 02/09/22 20:59 Last Admin: 01/12/22 20:08 Dose: 10 mg Documented by: Pantoprazole Sodium (Pantoprazole 40 Mg Tab) 40 mg PO DAILY [facility] Stop: 02/09/22 08:59 Last Admin: 01/12/22 08:23 Dose: 40 mg Documented by: Ropinirole HCl (Ropinirole Hcl 1 Mg Tablet) 1 mg PO TID@0900,1300,1700 [facility] Stop: 02/09/22 08:59 Last Admin: 01/12/22 17:21 Dose: 1 mg Documented by: Ropinirole HCl (Ropinirole Hcl 1 Mg Tablet) 2 mg PO [facility] Stop: 02/09/22 20:59 Last Admin: 01/12/22 20:09 Dose: 2 mg Documented by: Senna/Docusate Sodium (Docusate Sodium/Senna 50/8.6mg Tab) 1 tab PO BID [facility] Stop: 02/09/22 08:59 Last Admin: 01/12/22 20:08 Dose: 1 tab Documented by: Thiamine HCl (Thiamine Hcl 100 Mg Tab) 100 mg PO BID [facility] Stop: 02/09/22 08:59 Last Admin: 01/12/22 20:09 Dose: 100 mg Documented by: Warfarin Sodium (Warfarin Sod 2.5 Mg Tab) 2.5 mg PO SuTuWeThFrSa@1600 [facility] Stop: 02/10/22 15:59 Last Admin: 01/12/22 15:41 Dose: 2.5 mg Documented by: Warfarin Sodium (Warfarin Sod 1.25 Mg Tab) 1.25 mg PO Mo@1600 [facility] Stop: 02/14/22 15:59 Warfarin Sodium (Warfarin Sod 2.5 Mg Tab) 2.5 mg PO Mo@1600 [facility] Stop: 02/14/22 15:59
[2022-01-12] MEDS ORDERED: POTASSIUM CHLORIDE PWD 20 MEQ PACK PO ONE (21:45)
--- NOTE | 2022-01-12 22:05 | CT Scan Report ---
CT head/brain wo con CLINICAL HISTORY: headtrauma Technique: Contiguous axial CT images of the head were acquired from the base of the skull to the mikala kya without intravenous contrast administration. Images were viewed [facility] brain[facility] . Automated dose lowering techniques and/or adjustment according to patient size were utilized for this exam. Comparison: Comparison is made to CT head 03/16/2020 Findings: The ventricles, basal cisterns, and cerebral sulci are normal. There is no acute intracranial hemorrh age or evidence of acute territorial infarction. Neither mass effect, shift of the midline structures , nor abnormal extra-axial fluid collections are shown. Imaged portions of the paranasal sinuses and mastoid air cells are clear. The orbits appear normal. There are no acute fractures of the calvaria. Soft tissue swelling is seen in the posterior midline. Impression: No acute intracranial hemorrhage or skull fractures. Scalp swelling is seen in the posterior midline. ACT 112: Negative or not required by law. Electronically signed by: Lusi Felipe Luna M.D. 01/12/2022 10:02 PM
[2022-01-12] MEDS: hydrOXYzine HCl 25 MG TAB PO PRN (22:45)
[2022-01-13] MEDS: LORazepam 0.5 MG TAB PO PRN ×4 (00:32→22:33)
[2022-01-13] MEDS: ceFAZolin 2000MG 2,000 MG/15 ML SYR IV SCH ×3 (03:57→19:39)
[2022-01-13] MEDS: LEVOTHYROXINE SODIUM 50 MCG TABLET PO SCH (05:55)
[2022-01-13 06:22] LABS: Hematocrit (blood only) 32.6 % (34.1-44.9); Hemoglobin 10.3 g/dl (12.0-16.0); Mean Corpuscular Hgb Conc 31.6 g/dL (32.0-36.0); Mean Corpuscular Volume 91.8 fL (80.0-100.0); Platelet Count 222 K/uL (130-400); RDW Coefficient of Variation 15.1 % (11.5-14.5); RDW Standard Deviation 50.4 fL (36.4-46.3); Red Blood Count 3.55 M/uL (3.93-5.22); White Blood Count 6.55 K/ul (4.8-10.8)
[2022-01-13 06:42] LABS: BUN Creatinine Ratio 35.9 (10-20); Calcium 9.1 mg/dl (8.5-10.1); Creatinine Clr Calc Pharmacy 66.9 ml/min; Est GFR (African American) 88.6 ml/min; Est GFR (Non-African American) 76.5 ml/min; Magnesium 1.7 mg/dl (1.7-2.4); Potassium 3.5 mmol/L (3.5-5.1)
[2022-01-13 07:01] LABS: INR 2.7 (0.9-1.1); Prothrombin Time 27.6 Seconds (9.0-12.0)
[2022-01-13] MEDS: ACETAMINOPHEN 325 MG TAB PO PRN (07:04)
[2022-01-13] MEDS ORDERED: POTASSIUM CHLORIDE PWD 20 MEQ PACK PO ONE ×2 (07:38→18:45)
--- NOTE | 2022-01-13 07:38 | Hospitalist Progress Note ---
Date of Service January 13, 2022 Assessment & Plan (1) Cellulitis of leg, right: Plan: Underlying chronic venous insufficiency on diuretic Rx Secondary to trauma History ambulatory dysfunction/Parkinson's disease/RLS No sepsis Chronic diastolic heart failure (EF 60 to 65%, TTE 2020) patient euvolemic TAA, patient declined surgery as per outpatient Cardiology documentation hypercoagulopathy (hx PE/DVT/protein C deficiency on Coumadin, monitor INR hypertension, stable hx PVD BRANDIE (CPAP intolerance) hx Edenilson-Danlos syndrome bronchial asthma, stable chronic anemia hemoglobin at baseline hypothyroidism, euthyroid as of current TSH hx fibromyalgia on buprenorphine patch history gastric bypass Hypokalemia , hypomag. secondary diuretic Rx, replete and monitor intermittent tobacco abuse Started IV Lasix 40mg IV BID for LE edema, will cont. Abx changed to IV Daptomycin + Cefepime, now much improved, blood cultures negative, continue with cefazolin Follow up final cultures Solumedrol 40mg IV one dose given as patient reports exposure to poison IV (on ) continue Coumadin check INR daily Ativan PRN for anxiety Admission and Anticipated Discharge Date Admission Date: January 11, 2022 Subjective Patient seen in follow-up for BLE cellulitis, etc seen resting in bed still having Memo LE pain, erythema - but edema and erythema much improved no fever/chills no chest pain, dyspnea, palpitations, dizziness no other symptoms Late evening yesterday, patient on commode, lost balance, and hit her head to wall. Change House Attendant was also notified. Stat CT head ordered, negative Review of Systems Review of Systems: All systems reviewed & are unremarkable except as noted in Subjective Physical Exam Physical Exam: General-obese female, in no resp. acute distress Eyes-EOMI, PERRL, anicteric Neck-supple, no JVD Lungs- clear breath sounds bilaterally, no rales/wheezes Heart- normal rate, regular rhythm; no murmurs Abdomen- normal bowel sounds, nondistended, soft, obese, nontender Extremities- (+) lower extremity erythema, edema grade 1 (much improved) Neuro- alert, oriented x 3, somewhat anxious, speech fluent, no facial symmetry, moves extremity Skin- warm & dry Results & Data Results & Data ([facility]) Vital Signs (Past 12 Hours) Vital Signs Temp Pulse Resp BP Pulse Ox 01/12/22 20:52 36.7 C 72 18 117/82 96 Laboratory Results 01/13/22 01/13/22 01/13/22 Range/Units 05:53 05:53 05:53 WBC 6.55 (4.8-10.8) K/ul RBC 3.55 L (3.93-5.22) M/uL Hgb 10.3 L (12.0-16.0) g/dl Hct 32.6 L (34.1-44.9) % MCV 91.8 (80.0-100.0) fL MCH 29.0 (25.0-34.0) pg MCHC 31.6 L (32.0-36.0) g/dL RDW Std Deviation 50.4 H (36.4-46.3) fL RDW Coeff of Neftaly 15.1 H (11.5-14.5) % Plt Count 222 (130-400) K/uL MPV 10.0 (9.4-12.3) fL PT 27.6 H (9.0-12.0) Seconds INR 2.7 H (0.9-1.1) Sodium 140 (136-145) mmol/L Potassium 3.5 (3.5-5.1) mmol/L Chloride 101 (98-107) mmol/L Carbon Dioxide 31 (21-32) mmol/L Anion Gap 8 (3-11) BUN 28 H (6-23) mg/dl Creatinine 0.78 (0.6-1.2) mg/dl Est Cr Clr Drug Dosing 66.9 ml/min Est GFR ( Amer) 88.6 ml/min Est GFR (Non-Af Amer) 76.5 ml/min BUN/Creatinine Ratio 35.9 H (10-20) Glucose 109 H (70-99(Fasting)) mg/dl Calcium 9.1 (8.5-10.1) mg/dl Phosphorus 3.0 (2.5-4.9) mg/dl Magnesium 1.7 (1.7-2.4) mg/dl Procalcitonin (0-0.5) ng/ml 01/12/22 Range/Units 06:24 WBC (4.8-10.8) K/ul RBC (3.93-5.22) M/uL Hgb (12.0-16.0) g/dl Hct (34.1-44.9) % MCV (80.0-100.0) fL MCH (25.0-34.0) pg MCHC (32.0-36.0) g/dL RDW Std Deviation (36.4-46.3) fL RDW Coeff of Neftaly (11.5-14.5) % Plt Count (130-400) K/uL MPV (9.4-12.3) fL PT (9.0-12.0) Seconds INR (0.9-1.1) Sodium (136-145) mmol/L Potassium (3.5-5.1) mmol/L Chloride (98-107) mmol/L Carbon Dioxide (21-32) mmol/L Anion Gap (3-11) BUN (6-23) mg/dl Creatinine (0.6-1.2) mg/dl Est Cr Clr Drug Dosing ml/min Est GFR ( Amer) ml/min Est GFR (Non-Af Amer) ml/min BUN/Creatinine Ratio (10-20) Glucose (70-99(Fasting)) mg/dl Calcium (8.5-10.1) mg/dl Phosphorus (2.5-4.9) mg/dl Magnesium (1.7-2.4) mg/dl Procalcitonin 0.68 H (0-0.5) ng/ml Medications Administered Current Inpatient Medications Acetaminophen (Acetaminophen 325 Mg Tab) 650 mg PO Q4H PRN PRN Reason: pain/fever Stop: 02/09/22 02:35 Last Admin: 01/13/22 07:04 Dose: 650 mg Documented by: Buprenorphine HCl (Buprenorphine 5 Mcg/Hr Tdsy) 15 mcg TD We@1000 [facility] Stop: 02/09/22 09:59 Last Admin: 01/10/22 10:47 Dose: 15 mcg Documented by: Carbidopa/Levodopa (Carbidopa/Levodopa 25/100mg Tab) 1 tab PO QID [facility] Stop: 02/09/22 08:59 Last Admin: 01/12/22 20:08 Dose: 1 tab Documented by: Cyanocobalamin (Cyanocobalamin 1000 Mcg/Ml Vial) 1,000 mcg IM TODAY@0900 [facility] Stop: 02/05/22 11:20 Diclofenac Sodium (Diclofenac Sod 1% Gel 100 Gm Tube) 2 gm EXT QID [facility]; Protocol Stop: 02/09/22 08:59 Last Admin: 01/12/22 20:07 Dose: 2 gm Documented by: Docusate Sodium (Docusate Sodium Syrup 100 Mg/10 Ml Udc) 50 mg PO BID PRN PRN Reason: Constipation Fluticasone Furoate (Fluticasone Furoate 200mcg 14 Puffs/Inhaler) 1 puffs INH DAILY [facility] Stop: 02/09/22 08:59 Last Admin: 01/12/22 08:20 Dose: 1 puffs Documented by: Fluticasone Propionate (Fluticasone Propionate Na Spr 16 Gm Btl) 2 sprays NA DAILY [facility] Stop: 02/09/22 08:59 Last Admin: 01/12/22 08:21 Dose: 2 sprays Documented by: Fluticasone/Vilanterol (Fluticasone/Vilanterol 100/25mcg 14 Puffs/Inhaler) 1 puffs INH DAILY [facility] Stop: 02/09/22 08:59 Last Admin: 01/12/22 08:20 Dose: 1 puffs Documented by: Furosemide (Furosemide 40 Mg/4 Ml Vial) 40 mg IV Q12H [facility] Stop: 02/09/22 19:59 Last Admin: 01/12/22 20:05 Dose: 40 mg Documented by: Hydroxyzine HCl (Hydroxyzine Hcl 25 Mg Tab) 25 mg PO Q6 PRN PRN Reason: .ANX/ITCH Stop: 02/09/22 02:35 Last Admin: 01/12/22 22:45 Dose: 25 mg Documented by: Promethazine HCl 12.5 mg/ (Sodium Chloride) 50.5 mls @ 202 mls/hr IV Q6H PRN PRN Reason: Nausea And Vomiting Stop: 02/09/22 02:35 Cefazolin Sodium (Ancef 2000mg) 2,000 mg in 15 mls @ 3.75 mls/min IV Q8H [facility]; Protocol Stop: 01/17/22 19:59 Last Admin: 01/13/22 03:57 Dose: 3.75 mls/min Documented by: Ipratropium [place] (Ipratropium [place] Nasal [place] 0.06% 15ml) 1 sprays ELYSE QID [facility] Stop: 02/09/22 08:59 Last Admin: 01/12/22 20:09 Dose: 1 sprays Documented by: Lactobacillus Acidophilus (Advanced Probiotic 1250 Mg Capsule) 2 cap PO DAILY [facility] Stop: 02/09/22 08:59 Last Admin: 01/12/22 08:22 Dose: 2 cap Documented by: Levothyroxine Sodium (Levothyroxine Sodium 50 Mcg Tablet) 50 mcg PO DAILYBB [facility] Stop: 02/09/22 06:29 Last Admin: 01/13/22 05:55 Dose: 50 mcg Documented by: Linaclotide (Linaclotide 145 Mcg Capsule) 290 mcg PO DAILY [facility] Stop: 02/09/22 08:59 Last Admin: 01/12/22 08:23 Dose: 290 mcg Documented by: Lorazepam (Lorazepam 0.5 Mg Tab) 0.5 mg PO Q6H PRN PRN Reason: Anxiety Stop: 02/09/22 19:07 Last Admin: 01/13/22 00:32 Dose: 0.5 mg Documented by: Meclizine HCl (Meclizine Hcl 25 Mg Tab) 25 mg PO TID PRN PRN Reason: DIZZY Stop: 02/09/22 02:35 Last Admin: 01/12/22 12:43 Dose: 25 mg Documented by: Metaxalone (Metaxalone 800 Mg Tablet) 800 mg PO QID@0900,1200,1700,2100 [facility] Stop: 02/10/22 13:29 Last Admin: 01/12/22 20:08 Dose: 800 mg Documented by: Metoprolol Tartrate (Metoprolol Tartrate 25 Mg Tab) 12.5 mg PO QPM [facility] Stop: 02/09/22 20:59 Last Admin: 01/12/22 20:13 Dose: 12.5 mg Documented by: Miscellaneous (Cromolyn 4 % Drops: Order Awaiting Action) 1 ea N/A QS [facility] Stop: 02/09/22 07:59 Last Admin: 01/12/22 23:53 Dose: Not Given Documented by: Miscellaneous (Remove & Waste Butrans Patch 1 Ea Ea) 3 ea N/A We@0959 [facility] Stop: 02/16/22 09:58 Miscellaneous (Check Buprenorphine Patch) 3 ea N/A QS [facility] Stop: 02/09/22 15:59 Last Admin: 01/12/22 23:53 Dose: 3 ea Documented by: Montelukast Sodium (Montelukast Sodium 10 Mg Tablet) 10 mg PO [facility] Stop: 02/09/22 20:59 Last Admin: 01/12/22 20:08 Dose: 10 mg Documented by: Pantoprazole Sodium (Pantoprazole 40 Mg Tab) 40 mg PO DAILY [facility] Stop: 02/09/22 08:59 Last Admin: 01/12/22 08:23 Dose: 40 mg Documented by: Ropinirole HCl (Ropinirole Hcl 1 Mg Tablet) 1 mg PO TID@0900,1300,1700 [facility] Stop: 02/09/22 08:59 Last Admin: 01/12/22 17:21 Dose: 1 mg Documented by: Ropinirole HCl (Ropinirole Hcl 1 Mg Tablet) 2 mg PO [facility] Stop: 02/09/22 20:59 Last Admin: 01/12/22 20:09 Dose: 2 mg Documented by: Senna/Docusate Sodium (Docusate Sodium/Senna 50/8.6mg Tab) 1 tab PO BID [facility] Stop: 02/09/22 08:59 Last Admin: 01/12/22 20:08 Dose: 1 tab Documented by: Thiamine HCl (Thiamine Hcl 100 Mg Tab) 100 mg PO BID [facility] Stop: 02/09/22 08:59 Last Admin: 01/12/22 20:09 Dose: 100 mg Documented by: Warfarin Sodium (Warfarin Sod 2.5 Mg Tab) 2.5 mg PO SuTuWeThFrSa@1600 [facility] Stop: 02/10/22 15:59 Last Admin: 01/12/22 15:41 Dose: 2.5 mg Documented by: Warfarin Sodium (Warfarin Sod 1.25 Mg Tab) 1.25 mg PO Mo@1600 [facility] Stop: 02/14/22 15:59 Warfarin Sodium (Warfarin Sod 2.5 Mg Tab) 2.5 mg PO Mo@1600 [facility] Stop: 02/14/22 15:59
[2022-01-13] MEDS: CHECK BUPRENORPHINE PATCH SCH ×3 (07:49→23:27)
[2022-01-13] MEDS: FUROSEMIDE 40 MG/4 ML VIAL IV SCH (07:56)
[2022-01-13] MEDS: METAXALONE 800 MG TABLET PO SCH ×4 (07:58→20:33)
[2022-01-13] MEDS: CARBIDOPA/LEVODOPA 25/100MG TAB PO SCH ×4 (07:58→20:32)
[2022-01-13] MEDS: THIAMINE HCL 100 MG TAB PO SCH ×2 (07:58→20:34)
[2022-01-13] MEDS: DOCUSATE SODIUM/SENNA 50/8.6MG TAB PO SCH ×2 (07:58→20:32)
[2022-01-13] MEDS: rOPINIRole HCL 1 MG TABLET PO SCH ×4 (07:59→20:34)
[2022-01-13] MEDS: DICLOFENAC SOD 1% GEL 100 GM TUBE EXT SCH ×4 (07:59→20:32)
[2022-01-13] MEDS: ADVANCED PROBIOTIC 1250 MG CAPSULE PO SCH (07:59)
[2022-01-13] MEDS: LINACLOTIDE 145 MCG CAPSULE PO SCH (07:59)
[2022-01-13] MEDS: PANTOprazole 40 MG TAB PO SCH (07:59)
[2022-01-13] MEDS: FLUTICASONE/VILANTEROL 100/25MCG 14 PUFFS/INHALER INH SCH (08:00)
[2022-01-13] MEDS: IPRATROPIUM BROMIDE NASAL SPRAY 0.06% 15ML NAE SCH ×4 (08:00→20:33)
[2022-01-13] MEDS: FLUTICASONE FUROATE 200MCG 14 PUFFS/INHALER INH SCH (08:00)
[2022-01-13] MEDS: FLUTICASONE PROPIONATE NA SPR 16 GM BTL SCH (08:00)
[2022-01-13] MEDS ORDERED: MAGNESIUM SULFATE / D5W 1 GM/100 ML BAG IV ONE (08:30)
[2022-01-13] MEDS: WARFARIN SOD 2.5 MG TAB PO SCH (16:24)
[2022-01-13] MEDS ORDERED: FUROSEMIDE 40 MG/4 ML VIAL IV ONE (18:14)
[2022-01-13] MEDS: MONTELUKAST SODIUM 10 MG TABLET PO SCH (20:33)
[2022-01-13] MEDS: METOPROLOL TARTRATE 25 MG TAB PO SCH (20:36)
[2022-01-14] MEDS: ACETAMINOPHEN 325 MG TAB PO PRN ×2 (01:33→17:18)
[2022-01-14] MEDS ORDERED: tiZANidine HCL 4 MG TABLET PO STA (03:40)
[2022-01-14] MEDS: ceFAZolin 2000MG 2,000 MG/15 ML SYR IV SCH ×2 (04:00→13:14)
[2022-01-14 04:16] LABS: Basophils # (auto) 0.01 K/uL (0-0.2); Basophils % (auto) 0.2 %; Eosinophils # (auto) 0.05 K/uL (0-0.50); Eosinophils % (auto) 0.8 %; Hemoglobin 12.2 g/dl (12.0-16.0); Immature Granulocytes # (auto) 0.01 K/uL (0.00-0.02); Immature Granulocytes % (auto) 0.2 %; Lymphocytes # (auto) 0.85 K/uL (1.2-3.4); Lymphocytes % (auto) 13.9 %; Mean Corpuscular Hemoglobin 30.3 pg (25.0-34.0); Mean Corpuscular Volume 91.8 fL (80.0-100.0); Mean Platelet Volume 9.9 fL (9.4-12.3); Monocytes # (auto) 0.77 K/uL (0.24-0.82); Monocytes % (auto) 12.6 %; Neutrophils # (auto) 4.44 K/uL (1.4-6.5); Neutrophils % (auto) 72.3 %; Platelet Count 244 K/uL (130-400); RDW Coefficient of Variation 14.8 % (11.5-14.5); RDW Standard Deviation 50.1 fL (36.4-46.3); Red Blood Count 4.03 M/uL (3.93-5.22); White Blood Count 6.13 K/ul (4.8-10.8)
[2022-01-14 04:26] LABS: INR 2.8 (0.9-1.1); Prothrombin Time 27.9 Seconds (9.0-12.0)
[2022-01-14] MEDS: LORazepam 0.5 MG TAB PO PRN ×3 (04:42→17:17)
[2022-01-14 04:49] LABS: BUN Creatinine Ratio 37.8 (10-20); Calcium 10.1 mg/dl (8.5-10.1); Est GFR (African American) 74.6 ml/min; Est GFR (Non-African American) 64.3 ml/min; Phosphorus 3.1 mg/dl (2.5-4.9); Potassium 4.5 mmol/L (3.5-5.1)
[2022-01-14] MEDS ORDERED: ALBUMIN 25% 12.5 GM/50 ML VIAL IV ONE (05:03)
[2022-01-14] MEDS: LEVOTHYROXINE SODIUM 50 MCG TABLET PO SCH (05:30)
[2022-01-14] MEDS ORDERED: ACETAMINOPHEN 1,000 MG/100 ML VIAL IV STA (05:42)
[2022-01-14] MEDS: DICLOFENAC SOD 1% GEL 100 GM TUBE EXT SCH ×3 (06:19→17:15)
[2022-01-14] MEDS: hydrOXYzine HCl 25 MG TAB PO PRN (07:06)
[2022-01-14] MEDS ORDERED: FUROSEMIDE 40 MG/4 ML VIAL IV ONE (07:55)
--- NOTE | 2022-01-14 07:58 | Hospitalist Progress Note ---
Date of Service January 14, 2022 Assessment & Plan (1) Cellulitis of leg, right: Plan: Underlying chronic venous insufficiency on diuretic Rx Secondary to trauma History ambulatory dysfunction/Parkinson's disease/RLS No sepsis Chronic diastolic heart failure (EF 60 to 65%, TTE 2020) patient euvolemic TAA, patient declined surgery as per outpatient Cardiology documentation hypercoagulopathy (hx PE/DVT/protein C deficiency on Coumadin, monitor INR hypertension, stable hx PVD BRANDIE (CPAP intolerance) hx Edenilson-Danlos syndrome bronchial asthma, stable chronic anemia hemoglobin at baseline hypothyroidism, euthyroid as of current TSH hx fibromyalgia on buprenorphine patch history gastric bypass Hypokalemia , hypomag. secondary diuretic Rx, replete and monitor intermittent tobacco abuse Started IV Lasix 40mg IV BID for LE edema, then switched to daily IV 40 - r ecommend to DC on 80 mg PO daily Abx changed to IV Daptomycin + Cefepime, now much improved, blood cultures negative, continue with cefazolin (recommend to continue with cefazolin for 1-2 more days, then switch to p.o. antibiotics) Follow up final cultures Solumedrol 40mg IV one dose given as patient reports exposure to poison IV (on 01/10) continue Coumadin check INR daily Ativan PRN for anxiety Admission and Anticipated Discharge Date Admission Date: January 11, 2022 Subjective Patient seen in follow-up for BLE cellulitis, etc seen resting in bed LE edema and erythema much improved, + cramps in feet on and off no fever/chills no chest pain, dyspnea, palpitations, dizziness no other symptoms Discussed rehab, and patient is agreeable Review of Systems Review of Systems: All systems reviewed & are unremarkable except as noted in Subjective Physical Exam Physical Exam: General-obese female, in no resp. acute distress Eyes-EOMI, PERRL, anicteric Neck-supple, no JVD Lungs- clear breath sounds bilaterally, no rales/wheezes Heart- normal rate, regular rhythm; no murmurs Abdomen- normal bowel sounds, nondistended, soft, obese, nontender Extremities- (+) lower extremity erythema, edema grade 1 (much improved) Neuro- alert, oriented x 3, somewhat anxious, speech fluent, no facial symmetry, moves extremity Skin- warm & dry Results & Data Results & Data ([facility]) Vital Signs (Past 12 Hours) Vital Signs Temp Pulse Resp BP Pulse Ox 01/14/22 06:29 36.4 C L 86 20 115/91 96 01/14/22 05:59 36.3 C L 94 H 18 124/77 94 01/13/22 20:35 36.5 C 94 H 18 120/84 94 Laboratory Results 01/14/22 01/14/22 01/14/22 Range/Units 04:00 04:00 04:00 WBC 6.13 (4.8-10.8) K/ul RBC 4.03 (3.93-5.22) M/uL Hgb 12.2 (12.0-16.0) g/dl Hct 37.0 (34.1-44.9) % MCV 91.8 (80.0-100.0) fL MCH 30.3 (25.0-34.0) pg MCHC 33.0 (32.0-36.0) g/dL RDW Std Deviation 50.1 H (36.4-46.3) fL RDW Coeff of Neftaly 14.8 H (11.5-14.5) % Plt Count 244 (130-400) K/uL MPV 9.9 (9.4-12.3) fL Immature Gran % (Auto) 0.2 % Neut % (Auto) 72.3 % Lymph % (Auto) 13.9 % [place] % (Auto) 12.6 % Eos % (Auto) 0.8 % Baso % (Auto) 0.2 % Neut # (Auto) 4.44 (1.4-6.5) K/uL Lymph # (Auto) 0.85 L (1.2-3.4) K/uL [place] # (Auto) 0.77 (0.24-0.82) K/uL Eos # (Auto) 0.05 (0-0.50) K/uL Baso # (Auto) 0.01 (0-0.2) K/uL Immature Gran # (Auto) 0.01 (0.00-0.02) K/uL PT 27.9 H (9.0-12.0) Seconds INR 2.8 H (0.9-1.1) Sodium 138 (136-145) mmol/L Potassium 4.5 D (3.5-5.1) mmol/L Chloride 98 (98-107) mmol/L Carbon Dioxide 28 (21-32) mmol/L Anion Gap 12 H (3-11) BUN 34 H (6-23) mg/dl Creatinine 0.90 (0.6-1.2) mg/dl Est Cr Clr Drug Dosing 58.0 ml/min Est GFR ( Amer) 74.6 ml/min Est GFR (Non-Af Amer) 64.3 ml/min BUN/Creatinine Ratio 37.8 H (10-20) Glucose 109 H (70-99(Fasting)) mg/dl Calcium 10.1 (8.5-10.1) mg/dl Phosphorus 3.1 (2.5-4.9) mg/dl Magnesium 2.0 (1.7-2.4) mg/dl Medications Administered Current Inpatient Medications Acetaminophen (Acetaminophen 325 Mg Tab) 650 mg PO Q4H PRN PRN Reason: pain/fever Stop: 02/09/22 02:35 Last Admin: 01/14/22 01:33 Dose: 650 mg Documented by: Buprenorphine HCl (Buprenorphine 5 Mcg/Hr Tdsy) 15 mcg TD We@1000 [facility] Stop: 02/09/22 09:59 Last Admin: 01/10/22 10:47 Dose: 15 mcg Documented by: Carbidopa/Levodopa (Carbidopa/Levodopa 25/100mg Tab) 1 tab PO QID [facility] Stop: 02/09/22 08:59 Last Admin: 01/13/22 20:32 Dose: 1 tab Documented by: Cyanocobalamin (Cyanocobalamin 1000 Mcg/Ml Vial) 1,000 mcg IM TODAY@0900 [facility] Stop: 02/05/22 11:20 Diclofenac Sodium (Diclofenac Sod 1% Gel 100 Gm Tube) 2 gm EXT QID [facility]; Protocol Stop: 02/13/22 05:44 Last Admin: 01/14/22 06:19 Dose: 2 gm Documented by: Docusate Sodium (Docusate Sodium Syrup 100 Mg/10 Ml Udc) 50 mg PO BID PRN PRN Reason: Constipation Fluticasone Furoate (Fluticasone Furoate 200mcg 14 Puffs/Inhaler) 1 puffs INH DAILY [facility] Stop: 02/09/22 08:59 Last Admin: 01/13/22 08:00 Dose: 1 puffs Documented by: Fluticasone Propionate (Fluticasone Propionate Na Spr 16 Gm Btl) 2 sprays NA DAILY [facility] Stop: 02/09/22 08:59 Last Admin: 01/13/22 08:00 Dose: 2 sprays Documented by: Fluticasone/Vilanterol (Fluticasone/Vilanterol 100/25mcg 14 Puffs/Inhaler) 1 puffs INH DAILY [facility] Stop: 02/09/22 08:59 Last Admin: 01/13/22 08:00 Dose: 1 puffs Documented by: Furosemide (Furosemide 40 Mg/4 Ml Vial) 40 mg IV ONE ONE Stop: 01/14/22 07:56 Hydroxyzine HCl (Hydroxyzine Hcl 25 Mg Tab) 25 mg PO Q6 PRN PRN Reason: .ANX/ITCH Stop: 02/09/22 02:35 Last Admin: 01/14/22 07:06 Dose: 25 mg Documented by: Promethazine HCl 12.5 mg/ (Sodium Chloride) 50.5 mls @ 202 mls/hr IV Q6H PRN PRN Reason: Nausea And Vomiting Stop: 02/09/22 02:35 Cefazolin Sodium (Ancef 2000mg) 2,000 mg in 15 mls @ 3.75 mls/min IV Q8H [facility]; Protocol Stop: 01/17/22 19:59 Last Admin: 01/14/22 04:00 Dose: 3.75 mls/min Documented by: Ipratropium [place] (Ipratropium [place] Nasal [place] 0.06% 15ml) 1 sprays ELYSE QID [facility] Stop: 02/09/22 08:59 Last Admin: 01/13/22 20:33 Dose: 1 sprays Documented by: Lactobacillus Acidophilus (Advanced Probiotic 1250 Mg Capsule) 2 cap PO DAILY [facility] Stop: 02/09/22 08:59 Last Admin: 01/13/22 07:59 Dose: 2 cap Documented by: Levothyroxine Sodium (Levothyroxine Sodium 50 Mcg Tablet) 50 mcg PO DAILYBB [facility] Stop: 02/09/22 06:29 Last Admin: 01/14/22 05:30 Dose: 50 mcg Documented by: Linaclotide (Linaclotide 145 Mcg Capsule) 290 mcg PO DAILY [facility] Stop: 02/09/22 08:59 Last Admin: 01/13/22 07:59 Dose: 290 mcg Documented by: Lorazepam (Lorazepam 0.5 Mg Tab) 0.5 mg PO Q6H PRN PRN Reason: Anxiety Stop: 02/09/22 19:07 Last Admin: 01/14/22 04:42 Dose: 0.5 mg Documented by: Meclizine HCl (Meclizine Hcl 25 Mg Tab) 25 mg PO TID PRN PRN Reason: DIZZY Stop: 02/09/22 02:35 Last Admin: 01/12/22 12:43 Dose: 25 mg Documented by: Metaxalone (Metaxalone 800 Mg Tablet) 800 mg PO QID@0900,1200,1700,2100 [facility] Stop: 02/10/22 13:29 Last Admin: 01/13/22 20:33 Dose: 800 mg Documented by: Metoprolol Tartrate (Metoprolol Tartrate 25 Mg Tab) 12.5 mg PO QPM [facility] Stop: 02/09/22 20:59 Last Admin: 01/13/22 20:36 Dose: 12.5 mg Documented by: Miscellaneous (Cromolyn 4 % Drops: Order Awaiting Action) 1 ea N/A QS [facility] Stop: 02/09/22 07:59 Last Admin: 01/13/22 23:27 Dose: Not Given Documented by: Miscellaneous (Remove & Waste Butrans Patch 1 Ea Ea) 3 ea N/A We@0959 [facility] Stop: 02/16/22 09:58 Miscellaneous (Check Buprenorphine Patch) 3 ea N/A QS [facility] Stop: 02/09/22 15:59 Last Admin: 01/13/22 23:27 Dose: 3 ea Documented by: Montelukast Sodium (Montelukast Sodium 10 Mg Tablet) 10 mg PO HS [facility] Stop: 02/09/22 20:59 Last Admin: 01/13/22 20:33 Dose: 10 mg Documented by: Pantoprazole Sodium (Pantoprazole 40 Mg Tab) 40 mg PO DAILY [facility] Stop: 02/09/22 08:59 Last Admin: 01/13/22 07:59 Dose: 40 mg Documented by: Ropinirole HCl (Ropinirole Hcl 1 Mg Tablet) 1 mg PO TID@0900,1300,1700 [facility] Stop: 02/09/22 08:59 Last Admin: 01/13/22 16:24 Dose: 1 mg Documented by: Ropinirole HCl (Ropinirole Hcl 1 Mg Tablet) 2 mg PO HS [facility] Stop: 02/09/22 20:59 Last Admin: 01/13/22 20:34 Dose: 2 mg Documented by: Senna/Docusate Sodium (Docusate Sodium/Senna 50/8.6mg Tab) 1 tab PO BID [facility] Stop: 02/09/22 08:59 Last Admin: 01/13/22 20:32 Dose: 1 tab Documented by: Thiamine HCl (Thiamine Hcl 100 Mg Tab) 100 mg PO BID [facility] Stop: 02/09/22 08:59 Last Admin: 01/13/22 20:34 Dose: 100 mg Documented by: Warfarin Sodium (Warfarin Sod 2.5 Mg Tab) 2.5 mg PO SuTuWeThFrSa@1600 [facility] Stop: 02/10/22 15:59 Last Admin: 01/13/22 16:24 Dose: 2.5 mg Documented by: Warfarin Sodium (Warfarin Sod 1.25 Mg Tab) 1.25 mg PO Mo@1600 [facility] Stop: 02/14/22 15:59 Warfarin Sodium (Warfarin Sod 2.5 Mg Tab) 2.5 mg PO Mo@1600 [facility] Stop: 02/14/22 15:59
[2022-01-14] MEDS: PANTOprazole 40 MG TAB PO SCH (08:37)
[2022-01-14] MEDS: ADVANCED PROBIOTIC 1250 MG CAPSULE PO SCH (08:37)
[2022-01-14] MEDS: LINACLOTIDE 145 MCG CAPSULE PO SCH (08:37)
[2022-01-14] MEDS: rOPINIRole HCL 1 MG TABLET PO SCH ×3 (08:37→17:13)
[2022-01-14] MEDS: THIAMINE HCL 100 MG TAB PO SCH (08:37)
[2022-01-14] MEDS: DOCUSATE SODIUM/SENNA 50/8.6MG TAB PO SCH (08:38)
[2022-01-14] MEDS: CARBIDOPA/LEVODOPA 25/100MG TAB PO SCH ×3 (08:38→17:12)
[2022-01-14] MEDS: METAXALONE 800 MG TABLET PO SCH ×3 (08:38→17:14)
[2022-01-14] MEDS: FLUTICASONE/VILANTEROL 100/25MCG 14 PUFFS/INHALER INH SCH (08:40)
[2022-01-14] MEDS: IPRATROPIUM BROMIDE NASAL SPRAY 0.06% 15ML NAE SCH ×3 (08:40→17:14)
[2022-01-14] MEDS: FLUTICASONE FUROATE 200MCG 14 PUFFS/INHALER INH SCH (08:40)
[2022-01-14] MEDS: FLUTICASONE PROPIONATE NA SPR 16 GM BTL SCH (08:40)
[2022-01-14] MEDS: CHECK BUPRENORPHINE PATCH SCH ×2 (08:41→17:02)
[2022-01-14] MEDS: MECLIZINE HCL 25 MG TAB PO PRN (13:14)
--- NOTE | 2022-01-14 15:38 | Discharge Summary ---
Date of Service January 14, 2022 Admission HPI Per Admitting Provider History obtained from patient and records. Limited history from patient secondary to lethargy post IV Ativan administration at the ER. Medical history significant for chronic diastolic heart failure (EF 60 to 65%, TTE 2020), TAA, hypercoagulopathy (hx PE/DVT/protein C deficiency on Coumadin, hypertension, PSVT, PVD, BRANDIE (CPAP intolerance), Edenilson-Danlos syndrome, bronchial asthma, chronic anemia (baseline hemoglobin 10-11 ), Parkinson's disease, mood disorder, hypothyroidism, fibromyalgia on buprenorphine patch , restless leg syndrome, ambulatory dysfunction, history gastric bypass, intermittent tobacco abuse. Last confinement March 2021 for sepsis secondary to. No growth on cultures. LLE cellulitis patient discharged on Keflex course. Patient fell off a chair last week landing on her right side. Subsequent swelling both legs more on the right. No chest pain, no SOB, no head trauma. No syncope. Worsening swelling on the right leg and inability to walk. Patient consulted ER. Ceftriaxone given for RLE cellulitis. Patient currently lethargic post IV Ativan administration at the ER. 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 Exam Per Admitting Provider GENERAL: uncomfortable, lethargic, morbidly obese, looks younger for stated age, no respiratory distress SKIN: Pallor , warm HEENT: Pale palpebral conjunctivae, no ptosis, dry buccal mucosa NECK : Supple, short neck, no tenderness CHEST : Decreased breath sounds , no tenderness HEART : RRR, no obvious murmurs ABDOMEN: Some distention, nontender EXTREMITIES : Tender indurated RLE, no other conspicuous deformities noted NEUROLOGIC : Lethargic, no facial asymmetry, no other gross focality Principal Diagnosis Right lower extremity cellulitis Discharge Exam General-obese female, in no resp. acute distress Eyes-EOMI, PERRL, anicteric Neck-supple, no JVD Lungs- clear breath sounds bilaterally, no rales/wheezes Heart- normal rate, regular rhythm; no murmurs Abdomen- normal bowel sounds, nondistended, soft, obese, nontender Extremities- (+) lower extremity erythema, edema grade 1 (much improved) Neuro- alert, oriented x 3, somewhat anxious, speech fluent, no facial symmetry, moves extremity Skin- warm & dry Discharge Data Allergies Allergy/AdvReac Type Severity Reaction Status Date / Time ammonia Allergy Severe FACE, Verified 03/16/21 19:08 LIPS, TONGUE EDEMA buspirone Allergy Severe NEURO Verified 03/16/21 19:08 COMPLICATIONS duloxetine Allergy Intermediate RASH Verified 03/16/21 19:08 ITCHING lisinopril Allergy Intermediate cough Verified 03/16/21 19:08 adhesive Allergy Mild skin tears Verified 03/16/21 19:08 NSAIDS (Non-Steroidal Allergy Unknown not Verified 03/16/21 19:08 Anti-Inflamma supposed to use-S/P GASTRIC BYPASS vancomycin Allergy Unknown ON [facility] MED Verified 03/16/21 19:08 LIST venlafaxine Allergy Unknown AFFECTS Verified 03/16/21 19:08 LEGS diphenhydramine AdvReac Intermediate RESTLESS Verified 03/16/21 19:08 LEGS gabapentin AdvReac Intermediate MUSCLE Verified 03/16/21 19:08 STIFFNESS POLLEN Allergy Severe FACE, Uncoded 03/16/21 19:08 LIPS, TONGUE EDEMA Dust Allergy Intermediate ROACHES,DUST Uncoded 03/16/21 19:08 MITES-CLOGGED UP SINUSES-CAN'T BREATHE Consultations 01/09/22 23:44 ED Decision to Admit Stat Ordered Studies 01/10/22 US venous doppler LE BI Urgent FINDINGS: There is normal compressibility, flow, and augmentation within the bilateral lower extremity deep venous systems. Limited visualization of the calf veins secondary to patient body habitus and subcutaneous edema. IMPRESSION: No DVT within the right or left lower extremity. 01/10/22 00:50 CT femur RT wo con Urgent CT tib/fib RT wo con Urgent FINDINGS: FEMUR: No acute abnormality of the imaged intrapelvic structures. Hysterectomy. Arterial calcifications. Bilateral knee total joint arthroplasties redemonstrated. Streak artifact from the arthroplasties limits the study. There is nonspecific diffuse subcutaneous edema. Subcutaneous varicosities. No discrete fluid collection. Diffuse muscle atrophy without intramuscular hematoma. Demineralized appearance of the bones. No acute fracture, dislocation or opaque foreign body. No suspicious bone lesions. TIBIA/FIBULA: Skin thickening with extensive diffuse subcutaneous edema. Lower extremity varicosities. No intramuscular or subcutaneous fluid collections. No acute fracture or dislocation. Osteoarthritis of the foot and ankle. 5 mm osteochondral defect of the lateral talar dome. Demineralized appearance of the bones. Degenerative spurring of the calcaneus. IMPRESSION: 1. No acute fracture, dislocation or osseous erosion. 2. Diffuse subcutaneous edema with skin thickening of the right lower extremity, greatest within the lower leg. Differential considerations include cellulitis, lymphedema or venous stasis. 3. Unremarkable appearance of the knee total joint arthroplasty. 4. Subcentimeter osteochondral defect of the talar dome. ACT 112: Negative or not required by law. 01/12/22 20:58 CT head/brain wo con Urgent Findings: The ventricles, basal cisterns, and cerebral sulci are normal. There is no acute intracranial hemorrhage or evidence of acute territorial infarction. Neither mass effect, shift of the midline structures, nor abnormal extra-axial fluid collections are shown. Imaged portions of the paranasal sinuses and mastoid air cells are clear. The orbits appear normal. There are no acute fractures of the calvaria. Soft tissue swelling is seen in the posterior midline. Impression: No acute intracranial hemorrhage or skull fractures. Scalp swelling is seen in the posterior midline. Hospital Course (1) Cellulitis of leg, right: Underlying chronic venous insufficiency on diuretic Rx Secondary to trauma History ambulatory dysfunction/Parkinson's disease/RLS No sepsis Chronic diastolic heart failure (EF 60 to 65%, TTE 2020) patient euvolemic TAA, patient declined surgery as per outpatient Cardiology documentation hypercoagulopathy (hx PE/DVT/protein C deficiency on Coumadin, monitor INR hypertension, stable hx PVD BRANDIE (CPAP intolerance) hx Edenilson-Danlos syndrome bronchial asthma, stable chronic anemia hemoglobin at baseline hypothyroidism, euthyroid as of current TSH hx fibromyalgia on buprenorphine patch history gastric bypass Hypokalemia , hypomag. secondary diuretic Rx, replete and monitor intermittent tobacco abuse Started IV Lasix 40mg IV BID for LE edema, then switched to daily IV 40 - r ecommend to DC on 80 mg PO daily for next 2 days, then back to home dose of lasix Abx changed to IV Daptomycin + Cefepime, now much improved, blood cultures negative, continue with cefazolin (recommend to continue with cefazolin for 1-2 more days, then switch to p.o. antibiotics) Follow up final cultures Check BMP and Mag level in 2 days Solumedrol 40mg IV one dose given as patient reports exposure to poison IV (on 01/10) continue Coumadin check INR daily Ativan PRN for anxiety Total Time Total Time Spent Total Time Spent (In Minutes): 40 Discharge Plan Discharge Items Patient Disposition: Transfer Inpatient Rehab Fac Reason For Visit: RLE CELLULITIS Discharge Diagnosis: Right lower extremity cellulitis Condition on Discharge: Fair Activity: Per Instructions section Non-emergency contact: Primary Care Provider Call non-emergency contact if: you have any medication questions and your symptoms worsen Follow-up/Referrals: Debbie Otero PA-C [Primary Care Provider] - Diet: Heart Healthy Addtl Attending Provider Instructions: Continue IV cefazolin 2000 mg every 8 hours, for next 1 to 2 days (# 5 doses). Then switch to p.o. antibiotics (likely Keflex ). Take furosemide 80 mg p.o. for next 2 days. Then can go back to home dose (between 40 and 80 mg). Check BMP and magnesium level in 2 days. Follow-up with primary care physician within a week. Pending Studies at Discharge: Yes Studies:: Final blood cultures Stand-Alone Forms: [facility] Skilled Items Patient informed of condition?: Yes DNR: No Discharge Level of Care: Acute rehab Communicable Disease: No Discharge Prognosis: Improving Lines: Peripheral IV Urinary Catheter: No Medications and DC Order Prescriptions: Continued furosemide 40 mg tablet 40 - 80 mg PO DAILY RF: 0 atorvastatin 20 mg tablet 20 mg PO QAM RF: 0 ipratropium-albuterol 0.5 mg-3 mg(2.5 mg base)/3 mL solution for nebulization 3 ml INHALATION QID RF: 0 ondansetron HCl 4 mg Tablet 4 mg PO Q12 PRN (Reason: Nausea) RF: 0 sennosides-docusate sodium [Senna-S] 8.6-50 mg Tablet 1 tab-cap PO BID RF: 0 cromolyn 4 % drops 1 drp OPL QID PRN (Reason: Itching) RF: 0 thiamine HCl (vitamin B1) 100 mg Tablet 100 mg PO BID RF: 0 warfarin 2.5 mg tablet 0 mg PO DIRECTED RF: 0 Colace 50 mg Capsule 50 mg PO BID PRN (Reason: Constipation) RF: 0 triamcinolone acetonide 0.1 % Cream 1 applic TOPICAL BID RF: 0 triamcinolone acetonide 0.1 % cream 1 applic TOPICAL BID PRN (Reason: FLARE UP) RF: 0 potassium chloride [Klor-Con] 20 mEq packet 20 meq PO AMHS RF: 0 clindamycin phosphate 1 % gel 1 applic TOPICAL BID PRN (Reason: FLARE UPS) RF: 0 meclizine 25 mg Tablet 25 mg PO TID PRN (Reason: DIZZY) RF: 0 levothyroxine 50 mcg tablet 50 mcg PO DAILY RF: 0 ropinirole 2 mg tablet See Rx Instructions .ROUTE .COMPLEX RF: 0 omeprazole 20 mg capsule,delayed release(DR/EC) 40 mg PO DAILY RF: 0 montelukast 10 mg tablet 10 mg PO HS RF: 0 calcium citrate 150 mg Capsule 0 mg PO BID RF: 0 hydroxyzine HCl 25 mg Tablet 25 mg PO Q6 PRN (Reason: .ANX/ITCH) RF: 0 ergocalciferol (vitamin D2) [Vitamin D2] 1,250 mcg (50,000 unit) Capsule 1,250 mcg PO WK RF: 0 fluticasone propion-salmeterol [Advair Diskus] 100-50 mcg/dose Blister With Device 1 inh INHALATION BID RF: 0 albuterol sulfate 90 mcg/actuation Hfa Aerosol Inhaler 2 inh INHALATION Q6 PRN (Reason: Shortness Of Breath Or Wheezing) RF: 0 carbidopa-levodopa 25-100 mg Tablet 1 tab PO QID RF: 0 fluticasone propionate [Flonase Allergy Relief] 50 mcg/actuation [place],Suspension 2 spray INTRANASAL DAILY RF: 0 ipratropium bromide 21 mcg (0.03 %) [place],Non-Aerosol 1 spray INTRANASAL QID RF: 0 fluticasone propionate [Flovent] 110 mcg/actuation Hfa Aerosol Inhaler 2 puff INHALATION BID RF: 0 cyanocobalamin (vitamin B-12) 1,000 mcg/mL Syringe 1,000 mcg MO RF: 0 metaxalone 800 mg tablet 800 mg PO QID RF: 0 [place] 3 Capsule 1,000 mg PO DAILY RF: 0 metoprolol tartrate 25 mg tablet 12.5 mg PO QPM RF: 0 biotin 1 mg Tablet 1 mg PO DAILY RF: 0 diclofenac sodium [Voltaren] 1 % Gel 2 g TOPICAL QID RF: 0 Linzess 290 mcg capsule 290 mcg PO DAILY RF: 0 buprenorphine 15 mcg/hour patch weekly 1 patch topical WK RF: 0 PreserVision AREDS-2 250-90-40-1 mg Capsule 1 tab PO BID RF: 0 Probiotic Acidophilus Biobeads 12.9 mg (2 billion cell) Tablet,Delayed Release (Dr/Ec) 2 tab PO DAILY RF: 0 lidocaine HCl 2.8 % Gel 1 applic TOPICAL BID PRN (Reason: APPLY TO AFFECTED AREAA) RF: 0 Discharge Orders: Discharge Order (Routine); Ordered 01/14/22 Ordered By: Jez Sultana Admission Data Admit Date/Time: 01/11/22 18:17 Attending Provider: Jez Sultana Admit Provider: Sebastien Delaney Primary Care Provider: Debbie Otero Other Providers: Sebastien Delaney ; Jez Caro ; [facility] ; [facility]
[2022-01-14] MEDS: WARFARIN SOD 2.5 MG TAB PO SCH (17:13)
[2022-01-15] MEDS ORDERED: WARFARIN SOD 1.25 MG TAB PO SCH (16:00)
[2022-01-15] MEDS ORDERED: WARFARIN SOD 2.5 MG TAB PO SCH (16:00)
[2022-02-05] MEDS ORDERED: CYANOCOBALAMIN 1000 MCG/ML VIAL IM SCH (09:00)
== END 2022-01-14 19:11 | DRG 603 ==
LOC: 3N 18:51 → ED 18:51 → SUATTDRO 01-10 00:56 → 3N 01-10 02:14

== ENCOUNTER 2022-02-06 14:42 | Inpatient (IN) ==
[2022-02-06] MEDS ORDERED: SODIUM CHLORIDE 0.9% 1000ML 1,000 ML IV SCH ×2 (15:26→19:12)
--- NOTE | 2022-02-06 15:44 | Emergency Department Note ---
Impression & Plan Fall, Elevated INR, Rhabdomyolysis, JAEL (acute kidney injury), Acute hypokalemia, Contusion of multiple sites, Acute UTI ED Provider Note CHIEF COMPLAINT: Fall HISTORY OF PRESENT ILLNESS: Bonnie Oneal is a 71 year old female with history of chronic diastolic heart failure, TAA, PE/DVT on Coumadin, hypertension, PSVT, PVD, BRANDIE, Edenilson-Danlos syndrome, bronchial asthma, chronic anemia, Parkinson's disease, mood disorder, hypothyroidism, fibromyalgia on buprenorphine patch , restless leg syndrome, ambulatory dysfunction, history gastric bypass, intermittent tobacco abuse among others listed below who presents to the Emergency Department via EMS for evaluation after suffering a fall last evening around 1999. At the time of onset, the patient states that she was attempting to sit down on her shower chair when it broke, causing her to fall. She was able to get up afterwards and used her rolling walker for support while taking a shower instead. As she was attempting to get out of the shower, she states that the walker folded up on her causing her to lose her balance. She does state that she was able to grab onto the shower hose to help lower herself to the ground, however she landed on the edge of the shower as she slid to the floor. The patient was then unable to get up on her own and laid there for the rest of the night and this morning until wheels on meals found her this afternoon. EMS was then called and she was brought to the emergency department for further evaluation. Currently, the patient states that she feels very tired and notes moderate pain to her right shoulder and right lower extremity where she has diffuse bruising. She denies hitting her head or losing consciousness at any point during the episode. She otherwise denies having a headache, lightheadedness/dizziness, neck pain, chest pain, respiratory difficulties, abdominal pain, nausea or vomiting. She also denies pain to her pelvis, back or upper extremities. She does note chronic pain to her bilateral lower extremities. Of note, the patient was recently admitted to the hospital from 01/11-01/14 for RLE cellulitis. She was initially treated wtih Daptomycin and Cefepime, blood cu ltures negative then deescalated to Cefazolin before switching to PO Keflex. Reportedly recently discharged back to home from [facility] last week. REVIEW OF SYSTEMS: 10 systems were reviewed and were negative unless otherwise stated in HPI as above PHYSICAL EXAM: VITALS: Vitals are noted on the nurse's note and reviewed by myself. Hypotensive and tachycardic. Afebrile. Maintaining oxygen saturation levels at 97% on room air with resp 22/min General: Resting supine in bed, appears generally unwell but no acute distress HEENT: Normocephalic, atraumatic. Pupils 2 mm and reactive to light with EOMI, bilaterally. No hemotympanum. No epistaxis. Mucous membranes very dry. Poor dentition. Oropharynx clear Neck: Supple, trachea midline, no midline or paraspinal cervical tenderness, ROM intact without pain Resp: Good inspiratory effort on room air, lung sounds clear bilaterally, chest wall non-tender CV: Tachycardic rate, regular rhythm. Normal S1-S2. Very difficult to palpate peripheral pulses but capillary refill <3 seconds Back: Multiple areas of ecchymosis to the right back and posterior chest wall without significant tenderness to palpation. No midline tenderness to the thoracic spine, no midline tenderness to the lumbar spine, no obvious step-offs or deformities Abd: Obese, mildly distended but soft, non-tender to palpation, no rebound, guarding or rigidity MSK/Integumentary: Large area of ecchymosis to the right shoulder/scapula with tenderness to palpation. Continues with FROM of the BUE without significant pain or difficulty, sensation intact. Extensive ecchymosis to the RLE over the thigh, knee and tib/fib with scabbed over skin tear to the lynch. Tender to palpation along the entire RLE and ROM limited secondary to pain. Also with tenderness to palpation over the left lower extremity but notes chronic. There are chronic venous stasis changes to the BLE with 1+ edema. Difficult to palpate peripheral pulses, capillary refill <3 seconds. Sensation intact Neuro: Awake, alert and oriented x 3 with GCS 15, interacting and answering questions appropriately Differential diagnosis includes fracture, dislocation, contusion, intra- abdominal, pneumothorax, intrathoracic, intracranial, neurologic, compartment syndrome, rhabdomyolysis, UTI, sepsis, as well as other pathologies. EMERGENCY DEPARTMENT COURSE: Physical exam and history were performed. Nursing triage notes, EMR, and medication list were personally reviewed. Patient is a 71 year old female with history of chronic diastolic heart failure, TAA, PE/DVT on Coumadin, hypertension, PSVT, PVD, BRANDIE, Edenilson-Danlos syndrome, bronchial asthma, chronic anemia, Parkinson's disease, mood disorder, hypoth yroidism, fibromyalgia on buprenorphine patch , restless leg syndrome, ambulatory dysfunction, history gastric bypass, intermittent tobacco abuse among others listed below who presents to the Emergency Department via EMS for evaluation after suffering a fall last evening around 1999. Additional history as described above. See physical exam as noted above. Continuous bus driver/monitor: Order was placed for continuous bus driver/monitor. Patient was placed on the bus driver/monitor. Patient was noted to be in sinus tachycardic at an initial rate of 120 bpm. EKG was obtained and reviewed by myself. This did show normal sinus rhythm at 98 bpm. Possible left atrial enlargement. Incomplete right bundle branch block. ST and T wave abnormalities. When compared to study from 01/09/2022, nonspecific T wave abnormality now evident in the inferior leads and T wave inversion more evident in the anterolateral leads. IV access was established and labs were obtained. The patient was given a total of 1 L NSS x 2. She was also started on Zosyn 4.5 g following collection of blood cultures. Additionally given potassium chloride 10 M EQ IV after labs resulted. Labs were obtained and reviewed by myself as below. Concerns for leukocytosis with a WBC of 15.56. Anemia with hemoglobin 10.7 which is relatively around her baseline. Coagulation studies significantly elevated with INR >9.6 and APTT 9 7.6 (after the third draw as there were concerns for possible contamination given the results). Hypokalemia with potassium 2.8. JAEL with creatinine 1.5 and BUN 60. AST elevated at 79 and ALT below range at 5. Concerns for rhabdomyolysis with CK 1703. Urinalysis was obtained and was turbid in appearance with 2+ protein, trace ketones, 3+ blood, positive nitrates, 1+ bilirubin, 3+ leukocyte esterase, 510 RBCs, 1030 WBCs 4+ bacteria and present mucus. Only mild concern for contamination with 1020 epithelial cells. CAT scans of the head, C-spine, chest, abdomen and pelvis as well as x-rays of the right femur, knee and tibia/fibula were obtained and reviewed by radiologist myself as below. Fortunately, all imaging was negative for acute traumatic injuries. The patient was reevaluated several times throughout her emergency department course. She was no longer significantly tachycardic, however she did remain hypotensive and was given and additional 1L NSS as above (2 total). Work-up is concerning for sepsis likely from UTI. Also concerning for JAEL and rhabdomyolysis likely due to prolonged down time. Additional concerns for elevated INR and hypokalemia. She will benefit from continued management in the hospital. She did verbalize understanding and agreement with this. I did contact Dr. Abrams of the [facility]. He agreed to evaluate the patient. The patient verbalized her understanding and agreement with the treatment plan as above. The chart was completed utilizing [employer] Voice Recognition Software. Grammatical errors, random word insertions, pronoun errors, and incomplete sentences are an occasional consequence of this system due to software limitations, ambient noise, and hardware issues. Any formal questions or concerns about the content, text, or information contained within the body of this dictation should be directly addressed to the provider for clarification. Past Med/Surg History Medical History ADHD Asthma uses PRN INH 3-4 x wk Bulging of intervertebral disc Claustrophobia Difficult intravenous access Dysphagia Edenilson-Danlos syndrome ISAC (generalized anxiety disorder) Gastroparesis GERD (gastroesophageal reflux disease) Hearing deficit History of colon polyps History of colon polyps History of DVT (deep vein thrombosis) chronic anticoagulation History of intestinal obstruction Hyperlipidemia Hypothyroidism Osteoarthritis Osteoporosis Peripheral neuropathy Protein C deficiency Pulmonary embolism 07/2018 - treated w/ lovenox - unk etiology Renal cyst Restless leg syndrome Sleep apnea unable to tolerate CPAP Tachycardia Thoracic aortic aneurysm follows w/ Dr. Arredondo - evaluated within last 6 mo Thyroid nodule Surgical History History of abdominoplasty + hernia repair History of arthroscopy of left knee History of bilateral breast reduction surgery History of cholecystectomy History of colonoscopy History of esophagogastroduodenoscopy (EGD) History of gastric bypass History of intestinal surgery History of laparotomy History of left knee replacement History of right knee joint replacement History of tonsillectomy Hx of melanoma excision shoulder S/P hysterectomy Self extubation attempted post gastric bypass Status post biopsy of thyroid gland benign Family History Uncle Stomach cancer Other No family history of adverse response to anesthesia No pertinent family history in first degree relatives Social History Smoking Status: Never smoker Second Hand Exposure: No; Hx Alcohol Use: No Hx Substance Use: No Preferred Language: Kazakh Communication Ability: Effective Visual Impairment: Limited Hearing Ability: Normal Keeper Head Required: No Beliefs That Will Affect Care: None Current Living Situation: Alone Current Living Situation Comment: has friends to help when needed Feels Safe at Home: Yes Assistive Devices: Cane Allergies Allergies Allergy/AdvReac Type Severity Reaction Status Date / Time ammonia Allergy Severe FACE, Verified 02/06/22 18:48 LIPS, TONGUE EDEMA buspirone Allergy Severe NEURO Verified 02/06/22 18:48 COMPLICATIONS duloxetine Allergy Intermediate RASH Verified 02/06/22 18:48 ITCHING lisinopril Allergy Intermediate cough Verified 02/06/22 18:48 adhesive Allergy Mild skin tears Verified 02/06/22 18:48 NSAIDS (Non-Steroidal Allergy Unknown not Verified 02/06/22 18:48 Anti-Inflamma supposed to use-S/P GASTRIC BYPASS vancomycin Allergy Unknown ON [facility] MED Verified 02/06/22 18:48 LIST venlafaxine Allergy Unknown AFFECTS Verified 02/06/22 18:48 LEGS diphenhydramine AdvReac Intermediate RESTLESS Verified 02/06/22 18:48 LEGS gabapentin AdvReac Intermediate MUSCLE Verified 02/06/22 18:48 STIFFNESS POLLEN Allergy Severe FACE, Uncoded 02/06/22 18:48 LIPS, TONGUE EDEMA Dust Allergy Intermediate ROACHES,DUST Uncoded 02/06/22 18:48 MITES-CLOGGED UP SINUSES-CAN'T BREATHE Home Meds Home Medications Medication Instructions Recorded Confirmed L.acidoph-L.rhamn-B.bifidum-B.long 2 tab PO DAILY 01/09/22 02/06/22 12.9 mg (2 billion cell) DR fam (Probiotic Acidophilus Jimmie) albuterol sulfate 90 mcg/actuation 2 inh inhalation Q6 PRN Shortness 01/09/22 02/06/22 aerosol inhaler Of Breath Or Wheezing atorvastatin 20 mg tablet 20 mg PO QAM 01/09/22 02/06/22 biotin 1 mg tablet 1 mg PO DAILY 01/09/22 02/06/22 buprenorphine 15 mcg/hour weekly 1 patch topical WK 01/09/22 02/06/22 transdermal patch calcium citrate 150 mg capsule 0 mg PO BID 01/09/22 02/06/22 carbidopa 25 mg-levodopa 100 mg 1 tab PO QID 01/09/22 02/06/22 tablet clindamycin phosphate 1 % topical 1 applic topical BID PRN FLARE UPS 01/09/22 02/06/22 gel cromolyn 4 % eye drops 1 drp OPL QID PRN Itching 01/09/22 02/06/22 cyanocobalamin (vitamin B-12) 1,000 mcg MO 01/09/22 02/06/22 1,000 mcg/mL injection syringe diclofenac sodium 1 % topical gel 2 g topical QID 01/09/22 02/06/22 docusate sodium 50 mg capsule 50 mg PO BID PRN Constipation 01/09/22 02/06/22 ergocalciferol (vitamin D2) 1,250 1,250 mcg PO WK 01/09/22 02/06/22 mcg (50,000 unit) capsule (Vitamin D2) fluticasone 100 mcg-salmeterol 50 1 inh inhalation BID 01/09/22 02/06/22 mcg/dose blistr powdr for inhalation (Advair Diskus) fluticasone propionate 110 2 puff inhalation BID 01/09/22 02/06/22 mcg/actuation HFA aerosol inhaler fluticasone propionate 50 2 spray intranasal DAILY 01/09/22 02/06/22 mcg/actuation nasal spray,suspension (Flonase Allergy Relief) furosemide 40 mg tablet 40 - 80 mg PO DAILY INCREASED 01/09/22 02/06/22 SWELLING IN LEGS hydroxyzine HCl 25 mg tablet 25 mg PO Q6 PRN .ANX/ITCH 01/09/22 02/06/22 ipratropium 0.5 mg-albuterol 3 mg 3 ml inhalation QID 01/09/22 02/06/22 (2.5 mg base)/3 mL nebulization soln ipratropium bromide 21 mcg (0.03 1 spray intranasal QID 01/09/22 02/06/22 %) nasal spray levothyroxine 50 mcg tablet 50 mcg PO DAILY 01/09/22 02/06/22 lidocaine HCl 2.8 % topical gel 1 applic topical BID PRN APPLY TO 01/09/22 02/06/22 AFFECTED AREAA linaclotide 290 mcg capsule 290 mcg PO DAILY 01/09/22 02/06/22 (Linzess) meclizine 25 mg tablet 25 mg PO TID PRN DIZZY 01/09/22 02/06/22 metaxalone 800 mg tablet 800 mg PO QID 01/09/22 02/06/22 metoprolol tartrate 25 mg tablet 12.5 mg PO QPM 01/09/22 02/06/22 montelukast 10 mg tablet 10 mg PO HS 01/09/22 02/06/22 omega-3 fatty acids 1,000 mg PO DAILY 01/09/22 02/06/22 omeprazole 20 mg capsule,delayed 40 mg PO DAILY 01/09/22 02/06/22 release ondansetron HCl 4 mg tablet 4 mg PO Q12 PRN Nausea 01/09/22 02/06/22 potassium chloride 20 mEq oral 20 meq PO AMHS 01/09/22 02/06/22 packet (Klor-Con) ropinirole 2 mg tablet See Rx Instructions .Route .COMPLEX 01/09/22 02/06/22 sennosides 8.6 mg-docusate sodium 1 tab-cap PO BID 01/09/22 02/06/22 50 mg tablet (Senna-S) thiamine HCl (vitamin B1) 100 mg 100 mg PO BID 01/09/22 02/06/22 tablet triamcinolone acetonide 0.1 % 1 applic topical BID 01/09/22 02/06/22 topical cream triamcinolone acetonide 0.1 % 1 applic topical BID PRN FLARE UP 01/09/22 02/06/22 topical cream vit C 250 mg-vit E 90 mg-zinc 40 1 tab PO BID 01/09/22 02/06/22 mg-copper 1 [id number]-[id number]-kqlkqo capsule (PreserVision AREDS-2) warfarin 2.5 mg tablet 0 mg PO DIRECTED 01/09/22 02/06/22 Results & Data (ED) Vital Signs Vital Signs - 24 hr 02/06/22 14:55 02/06/22 15:30 02/06/22 16:33 Temperature 35.9 C L Temperature Source Temporal Artery Scan Pulse Rate 120 H 99 H 98 H Respiratory Rate 22 24 22 Respiratory Effort / Characteristics Non-Labored Spontaneous Respiratory Depth Normal Respiratory Pattern Regular Blood Pressure 110/46 L 105/51 L 96/53 L Blood Pressure Mean 67 69 67 Blood Pressure Position Sitting Pulse Oximetry Oxygen Delivery Method Room Air Sepsis Recent Fever Within 48 Hours No Sepsis New/Unexplained Change in Mental Status No Sepsis Action Taken by Nursing Physician Notified 02/06/22 17:01 02/06/22 18:00 Temperature Temperature Source Pulse Rate 95 H 96 H Respiratory Rate 23 22 Respiratory Effort / Characteristics Respiratory Depth Respiratory Pattern Blood Pressure 112/60 92/57 L Blood Pressure Mean 77 68 Blood Pressure Position Pulse Oximetry 97 Oxygen Delivery Method Sepsis Recent Fever Within 48 Hours Sepsis New/Unexplained Change in Mental Status Sepsis Action Taken by Nursing Laboratory Data Result diagrams: 02/06/22 16:36 02/06/22 17:30 Lab Results 02/06/22 02/06/22 02/06/22 Range/Units 15:52 16:36 16:36 WBC 15.56 H (4.8-10.8) K/ul RBC 3.58 L (3.93-5.22) M/uL Hgb 10.7 L (12.0-16.0) g/dl Hct 32.5 L (34.1-44.9) % MCV 90.8 (80.0-100.0) fL MCH 29.9 (25.0-34.0) pg MCHC 32.9 (32.0-36.0) g/dL RDW Std Deviation 48.6 H (36.4-46.3) fL RDW Coeff of [place] 14.5 (11.5-14.5) % Plt Count 221 (130-400) K/uL MPV 10.6 (9.4-12.3) fL Immature Gran % (Auto) 0.4 % Neut % (Auto) 92.4 % Lymph % (Auto) 3.5 % [place] % (Auto) 3.6 % Eos % (Auto) 0.0 % Baso % (Auto) 0.1 % Neut # (Auto) 14.36 H (1.4-6.5) K/uL Lymph # (Auto) 0.55 L (1.2-3.4) K/uL [place] # (Auto) 0.56 (0.24-0.82) K/uL Eos # (Auto) 0.00 (0-0.50) K/uL Baso # (Auto) 0.02 (0-0.2) K/uL Immature Gran # (Auto) 0.07 H (0.00-0.02) K/uL Echinocytes 2+ PT INR APTT PTT Ratio Sodium (136-145) mmol/L Potassium Chloride (98-107) mmol/L Carbon Dioxide (21-32) mmol/L Anion Gap (3-11) BUN (6-23) mg/dl Creatinine (0.6-1.2) mg/dl Est Cr Clr Drug Dosing Est GFR ( Amer) ml/min Est GFR (Non-Af Amer) ml/min BUN/Creatinine Ratio (10-20) Glucose (70-99(Fasting)) mg/dl Lactate 1.5 (0.4-2.0) mmol/L Calcium (8.5-10.1) mg/dl Magnesium (1.7-2.4) mg/dl Total Bilirubin (0.2-1.0) mg/dl AST ALT (7-52) U/L Alkaline Phosphatase (34-104) U/L Total Creatine Kinase (26-192) U/L Total Protein (6.0-8.3) gm/dl Albumin (3.4-5.0) gm/dl Globulin (2.5-4.0) gm/dl Albumin/Globulin Ratio (0.9-2) Urine Color Urine Appearance (Clear) Urine pH (4.5-7.5) Ur Specific [place] (1.000-1.030) Urine Protein (Negative) Urine Glucose (UA) (Negative) Urine Ketones (Negative) Urine Blood (Negative) Urine Nitrite (Negative) Urine Bilirubin (Negative) Urine Urobilinogen (Negative) Ur Leukocyte Esterase (Negative) Urine RBC (0-4) /hpf Urine WBC (0-5) /hpf Ur Epithelial Cells (0-5) /lpf Triple Phos Crystals (None Prsent) Urine Bacteria (Negative) Urine Mucus (None Prsent) SARS-CoV-2, RNA, NAAT NEGATIVE (NEGATIVE) 02/06/22 02/06/22 02/06/22 Range/Units 16:36 16:36 17:00 WBC (4.8-10.8) K/ul RBC (3.93-5.22) M/uL Hgb (12.0-16.0) g/dl Hct (34.1-44.9) % MCV (80.0-100.0) fL MCH (25.0-34.0) pg MCHC (32.0-36.0) g/dL RDW Std Deviation (36.4-46.3) fL RDW Coeff of [place] (11.5-14.5) % Plt Count (130-400) K/uL MPV (9.4-12.3) fL Immature Gran % (Auto) % Neut % (Auto) % Lymph % (Auto) % [place] % (Auto) % Eos % (Auto) % Baso % (Auto) % Neut # (Auto) (1.4-6.5) K/uL Lymph # (Auto) (1.2-3.4) K/uL [place] # (Auto) (0.24-0.82) K/uL Eos # (Auto) (0-0.50) K/uL Baso # (Auto) (0-0.2) K/uL Immature Gran # (Auto) (0.00-0.02) K/uL Echinocytes PT Cancelled INR Cancelled APTT Cancelled PTT Ratio Cancelled Sodium 142 (136-145) mmol/L Potassium TNP Chloride 109 H (98-107) mmol/L Carbon Dioxide 21 (21-32) mmol/L Anion Gap 12 H (3-11) BUN 60 H (6-23) mg/dl Creatinine 1.51 H (0.6-1.2) mg/dl Est Cr Clr Drug Dosing Not Reportable Est GFR ( Amer) 39.9 ml/min Est GFR (Non-Af Amer) 34.4 ml/min BUN/Creatinine Ratio 39.7 H (10-20) Glucose 130 H (70-99(Fasting)) mg/dl Lactate (0.4-2.0) mmol/L Calcium 8.6 (8.5-10.1) mg/dl Magnesium (1.7-2.4) mg/dl Total Bilirubin 1.5 H (0.2-1.0) mg/dl AST TNP ALT 5 L (7-52) U/L Alkaline Phosphatase 70 (34-104) U/L Total Creatine Kinase 1703 H (26-192) U/L Total Protein 5.4 L (6.0-8.3) gm/dl Albumin 3.0 L (3.4-5.0) gm/dl Globulin 2.4 L (2.5-4.0) gm/dl Albumin/Globulin Ratio 1.3 (0.9-2) Urine Color Dark Yellow Urine Appearance Turbid A (Clear) Urine pH >= 9.0 H (4.5-7.5) Ur Specific [place] 1.010 (1.000-1.030) Urine Protein 2+ H (Negative) Urine Glucose (UA) Negative (Negative) Urine Ketones Trace H (Negative) Urine Blood 3+ H (Negative) Urine Nitrite Positive A (Negative) Urine Bilirubin 1+ H (Negative) Urine Urobilinogen Negative (Negative) Ur Leukocyte Esterase 3+ H (Negative) Urine RBC 5-10 H (0-4) /hpf Urine WBC 10-30 H (0-5) /hpf Ur Epithelial Cells 0-5 (0-5) /lpf Triple Phos Crystals Present A (None Prsent) Urine Bacteria 4+ H (Negative) Urine Mucus Present A (None Prsent) SARS-CoV-2, RNA, NAAT (NEGATIVE) 02/06/22 02/06/22 02/06/22 Range/Units 17:30 17:30 17:42 WBC (4.8-10.8) K/ul RBC (3.93-5.22) M/uL Hgb (12.0-16.0) g/dl Hct (34.1-44.9) % MCV (80.0-100.0) fL MCH (25.0-34.0) pg MCHC (32.0-36.0) g/dL RDW Std Deviation (36.4-46.3) fL RDW Coeff of [place] (11.5-14.5) % Plt Count (130-400) K/uL MPV (9.4-12.3) fL Immature Gran % (Auto) % Neut % (Auto) % Lymph % (Auto) % [place] % (Auto) % Eos % (Auto) % Baso % (Auto) % Neut # (Auto) (1.4-6.5) K/uL Lymph # (Auto) (1.2-3.4) K/uL [place] # (Auto) (0.24-0.82) K/uL Eos # (Auto) (0-0.50) K/uL Baso # (Auto) (0-0.2) K/uL Immature Gran # (Auto) (0.00-0.02) K/uL Echinocytes PT Cancelled INR Cancelled APTT Cancelled PTT Ratio Cancelled Sodium (136-145) mmol/L Potassium 2.8 L Chloride (98-107) mmol/L Carbon Dioxide (21-32) mmol/L Anion Gap (3-11) BUN (6-23) mg/dl Creatinine (0.6-1.2) mg/dl Est Cr Clr Drug Dosing Est GFR ( Amer) ml/min Est GFR (Non-Af Amer) ml/min BUN/Creatinine Ratio (10-20) Glucose (70-99(Fasting)) mg/dl Lactate (0.4-2.0) mmol/L Calcium (8.5-10.1) mg/dl Magnesium 1.8 (1.7-2.4) mg/dl Total Bilirubin (0.2-1.0) mg/dl AST 79 H ALT (7-52) U/L Alkaline Phosphatase (34-104) U/L Total Creatine Kinase (26-192) U/L Total Protein (6.0-8.3) gm/dl Albumin (3.4-5.0) gm/dl Globulin (2.5-4.0) gm/dl Albumin/Globulin Ratio (0.9-2) Urine Color Urine Appearance (Clear) Urine pH (4.5-7.5) Ur Specific [place] (1.000-1.030) Urine Protein (Negative) Urine Glucose (UA) (Negative) Urine Ketones (Negative) Urine Blood (Negative) Urine Nitrite (Negative) Urine Bilirubin (Negative) Urine Urobilinogen (Negative) Ur Leukocyte Esterase (Negative) Urine RBC (0-4) /hpf Urine WBC (0-5) /hpf Ur Epithelial Cells (0-5) /lpf Triple Phos Crystals (None Prsent) Urine Bacteria (Negative) Urine Mucus (None Prsent) SARS-CoV-2, RNA, NAAT (NEGATIVE) 02/06/22 Range/Units 19:23 WBC (4.8-10.8) K/ul RBC (3.93-5.22) M/uL Hgb (12.0-16.0) g/dl Hct (34.1-44.9) % MCV (80.0-100.0) fL MCH (25.0-34.0) pg MCHC (32.0-36.0) g/dL RDW Std Deviation (36.4-46.3) fL RDW Coeff of [place] (11.5-14.5) % Plt Count (130-400) K/uL MPV (9.4-12.3) fL Immature Gran % (Auto) % Neut % (Auto) % Lymph % (Auto) % [place] % (Auto) % Eos % (Auto) % Baso % (Auto) % Neut # (Auto) (1.4-6.5) K/uL Lymph # (Auto) (1.2-3.4) K/uL [place] # (Auto) (0.24-0.82) K/uL Eos # (Auto) (0-0.50) K/uL Baso # (Auto) (0-0.2) K/uL Immature Gran # (Auto) (0.00-0.02) K/uL Echinocytes PT > 90.0 H INR > 9.6 H* APTT 97.6 H* PTT Ratio 3.5 Sodium (136-145) mmol/L Potassium Chloride (98-107) mmol/L Carbon Dioxide (21-32) mmol/L Anion Gap (3-11) BUN (6-23) mg/dl Creatinine (0.6-1.2) mg/dl Est Cr Clr Drug Dosing Est GFR ( Amer) ml/min Est GFR (Non-Af Amer) ml/min BUN/Creatinine Ratio (10-20) Glucose (70-99(Fasting)) mg/dl Lactate (0.4-2.0) mmol/L Calcium (8.5-10.1) mg/dl Magnesium (1.7-2.4) mg/dl Total Bilirubin (0.2-1.0) mg/dl AST ALT (7-52) U/L Alkaline Phosphatase (34-104) U/L Total Creatine Kinase (26-192) U/L Total Protein (6.0-8.3) gm/dl Albumin (3.4-5.0) gm/dl Globulin (2.5-4.0) gm/dl Albumin/Globulin Ratio (0.9-2) Urine Color Urine Appearance (Clear) Urine pH (4.5-7.5) Ur Specific [place] (1.000-1.030) Urine Protein (Negative) Urine Glucose (UA) (Negative) Urine Ketones (Negative) Urine Blood (Negative) Urine Nitrite (Negative) Urine Bilirubin (Negative) Urine Urobilinogen (Negative) Ur Leukocyte Esterase (Negative) Urine RBC (0-4) /hpf Urine WBC (0-5) /hpf Ur Epithelial Cells (0-5) /lpf Triple Phos Crystals (None Prsent) Urine Bacteria (Negative) Urine Mucus (None Prsent) SARS-CoV-2, RNA, NAAT (NEGATIVE) Administered Medications Discontinued Medications Sodium Chloride (Nss 1000ml) 1,000 mls @ 999 mls/hr IV .Q1H1M ASHUTOSH Stop: 02/06/22 16:26 Last Infusion: 02/06/22 17:37 Dose: 0 mls/hr Documented By: Admin: 02/06/22 16:35 Dose: 999 mls/hr Documented By: JUAN Potassium Chloride (K Dm / Wtr) 10 meq in 100 mls @ 100 mls/hr IV ONE ONE; Protocol Stop: 02/06/22 19:48 Last Infusion: 02/06/22 21:15 Dose: 0 mls/hr Documented By: Admin: 02/06/22 20:15 Dose: 100 mls/hr Documented By: SAMARA Piperacillin Sod/Tazobactam Sod (Zosyn) 4.5 gm in 120 mls @ 240 mls/hr IV NOW ONE Stop: 02/06/22 19:21 Last Infusion: 02/06/22 19:30 Dose: 0 mls/hr Documented By: Admin: 02/06/22 18:57 Dose: 240 mls/hr Documented By: Sodium Chloride (Nss 1000ml) 1,000 mls @ 999 mls/hr IV .Q1H1M ASHUTOSH Stop: 02/06/22 20:12 Last Infusion: 02/06/22 21:25 Dose: 0 mls/hr Documented By: Admin: 02/06/22 21:17 Dose: 999 mls/hr Documented By: SAMARA Potassium Chloride (Potassium Chloride 20 Meq/15 Ml Ud) 40 meq PO NOW STA Stop: 02/06/22 19:40 Last Admin: 02/06/22 21:15 Dose: Not Given Documented By: [facility] Imaging Data Radiologist's Impression: Femur X-Ray 02/06/22 15:29 RIGHT FEMUR 3 VIEWS CLINICAL HISTORY: Fall. FINDINGS: AP, frog-leg, and crosstable lateral views of the right femur are obtained. No prior studies are available for comparison at the time of dictation. The skeletal structures are osteopenic. There is no radiographic evidence of fracture involving the right femur or the visualized right hemipelvis. The right hip joint is grossly maintained. A right knee arthroplasty is in place. The overlying soft tissues are normal as imaged. IMPRESSION: There is no radiographic evidence of right femoral fracture. Electronically signed by: Julian Sibley M.D. 02/06/2022 7:[address] 02/06/22 15:29 CT SCAN OF THE BRAIN WITHOUT IV CONTRAST CLINICAL HISTORY: Fall. COMPARISON STUDY: CT of the brain dated 01/12/2022. TECHNIQUE: Unenhanced axial CT scan of the brain is performed from the vertex to the skull base. A dose lowering technique was utilized adhering to the principles of ALARA. FINDINGS: Brain parenchyma: There is age-related involutional change noting mild subcortical and periventricular microangiopathic disease. There is no hemorrhage, mass effect, or evidence of acute territorial ischemia by CT criteria. Serra-white matter differentiation is preserved. No extra-axial fluid collection is seen. Ventricles, sulci, cisterns: Prominent secondary to involutional change. Intracranial vasculature: There is atherosclerotic calcification of the cavernous carotid and vertebral arteries. Calvarium: The skeletal structures are osteopenic. No depressed calvarial fracture is identified. Soft tissues: There are posterior scalp contusions. Sinuses and mastoids: The visualized paranasal sinuses are clear. The mastoid air cells are well pneumatized. Orbits: The bony orbits are grossly intact. There are bilateral ocular lens impl ants. IMPRESSION: There is no hemorrhage, mass effect, or evidence of acute territorial ischemia by CT criteria. ACT 112: Negative or not required by law. Electronically signed by: Julian Sibley M.D. 02/06/2022 6:44 PM Knee X-Ray 02/06/22 15:29 RIGHT KNEE 2 VIEWS; RIGHT TIBIA AND FIBULA 2 VIEWS CLINICAL HISTORY: Fall. Bruising. FINDINGS: AP and crosstable lateral views of the right knee with AP and lateral views of the right tibia and fibula are obtained. Correlation is made with CT scan of the right tibia and fibula dated 01/10/2022. The skeletal structures are osteopenic. There is no radiographic evidence of fracture at the right knee joint. There is no radiographic evidence of right tibial or fibular fracture. A right knee arthroplasty is in near-anatomic alignment. There has been undersurface remodeling of the patella. No periprosthetic lucency is identified. The ankle mortise appears intact. Mild soft tissue edema is seen throughout the right leg. IMPRESSION: 1. There is no radiographic evidence of right tibial or fibular fracture. 2. No fracture is seen at the right knee joint. 3. A right knee arthroplasty is in near-anatomic alignment. Electronically signed by: Julian Sibley M.D. 02/06/2022 6:[address] 02/06/22 15:29 CT SCAN OF THE CHEST, ABDOMEN, AND PELVIS WITHOUT IV CONTRAST; CT SCAN OF THE LUMBAR SPINE WITHOUT IV CONTRAST CLINICAL HISTORY: Fall. COMPARISON STUDY: Chest CT dated 01/18/2020. Abdominal CT dated 359. TECHNIQUE: Unenhanced CT scan of the chest, abdomen, and pelvis was performed from the thoracic inlet to the proximal femora. Additionally, CT scan of the lumbar spine is performed from the lower thoracic spine to the sacrum. Images for these examinations are reviewed in the axial, sagittal, and coronal planes. IV contrast was not administered for these examinations. Note that the examinations were performed in significantly suboptimal fashion without IV contrast. The examinations are also degraded by motion artifact, and by streak artifact from the arms which could not be elevated above the chest or abdomen. A dose lowering technique was utilized adhering to the principles of ALARA. CT DOSE: 1906.20 mGy.cm FINDINGS: CHEST: Thyroid: Normal in size and heterogeneous in attenuation. A coarse calcification is seen in the right lobe. Thoracic aorta: There is aneurysmal dilatation of the ascending thoracic aorta. This measures up to 5.4 cm in diameter. No intramural hematoma is seen. The remainder of the thoracic aorta is normal in caliber comment knee are demonstrates standard 3-vessel anatomy. Heart: The heart is enlarged and without pericardial effusion. The coronary arteries are densely calcified. Lungs and pleural spaces: Evaluation of the lung parenchyma is significantly degraded by motion artifact. No airspace consolidation, pleural effusion, or pneumothorax is seen. The trachea and central airways are clear. Dependent scarring/atelectasis is noted at the lung bases. Mediastinum: There is no mediastinal hematoma or lymphadenopathy. Elaine: Not well assessed without IV contrast. Axillae: There is no axillary lymphadenopathy. Bony thorax: The skeletal structures are osteopenic. The bony thorax appears intact. Degenerative change is noted in the shoulders and thoracic spine. No lytic or blastic lesions are identified. ABDOMEN AND PELVIS: Liver: The unenhanced liver is normal in size, contour, and attenuation. There is mild central intrahepatic biliary ductal dilatation. Gallbladder: Unremarkable. Spleen: Normal in size and attenuation. Pancreas: The unenhanced pancreas is moderately atrophic and grossly unremar kable. Adrenal glands: Unremarkable. Kidneys: The unenhanced kidneys demonstrate cortical atrophy and are without hydronephrosis. Placenta cortical scarring are noted in the right kidney. No renal calculi are identified. A 2.7 cm cyst is noted in the right lower pole. Additional subcentimeter cortical hypodensities also likely represent cysts but are too small for definitive characterization. Abdominal vasculature: The abdominal aorta is normal in course and caliber noting mild atherosclerotic calcification. Stomach and bowel: Postoperative change is noted in the stomach. There is no bowel obstruction. The appendix is well-visualized and normal. Peritoneum: There is no intraperitoneal free air or abdominal ascites. There is a fat-containing suprarenal umbilical hernia. Lymphadenopathy: None. Pelvic viscera: The bladder is decompressed around a Cisneros catheter. There is mild pericystic infiltration. Foci of internal gas are likely related to rotation. The uterus and adnexa are normal as visualized. Skeletal structures: The bony pelvis and proximal femora appear intact. Degener ative change is noted in the sacroiliac joints. See below for dedicated assessment of the lumbar spine. The skeletal structures are osteopenic. No lytic or blastic lesions are seen. LUMBAR SPINE: Vertebral body height and alignment are maintained throughout the lumbar spine. There is no evidence of acute fracture or malalignment. There is mild lumbar levocurvature centered at L3. Anterior and lateral marginal osteophytes are seen throughout. The transverse and spinous processes are intact. There is no evidence of spondylolysis. Facet arthropathy is noted in the lower lumbar region. There is moderate disc space narrowing seen throughout the lumbar spine, greatest at L1-L2, L4-L5, and L5-S1. Posterior discussed by complexes are noted at all lumbar levels. There is no CT evidence of high-grade central canal stenosis The paraspinous soft tissues are within normal limits. IMPRESSION: 1. Significantly suboptimal examination without oral and IV contrast. The examinations are also compromised by streak and motion artifact. 2. No acute posttraumatic intrathoracic abnormality is identified. 3. There is no airspace consolidation, pleural effusion, or pneumothorax. 4. There is aneurysmal dilatation of the ascending thoracic aorta which measures up to 5.4 cm. This has modestly increased in size as compared to 01/18/2020. 5. There is no evidence of solid injury in the abdomen or pelvis on this un enhanced examination. 6. Cardiomegaly. 7. There is no evidence of fracture or malalignment involving the lumbar spine. 8. The bladder is decompressed around a Cisneros catheter and there is mild pericystic infiltration. Correlate with clinical findings and urinalysis. 9. Additional findings as above. ACT 112: Negative or not required by law. Electronically signed by: Julian Sibley M.D. 02/06/2022 7:04 PM Tibia/Fibula X-Ray 02/06/22 15:29 RIGHT KNEE 2 VIEWS; RIGHT TIBIA AND FIBULA 2 VIEWS CLINICAL HISTORY: Fall. Bruising. FINDINGS: AP and crosstable lateral views of the right knee with AP and lateral views of the right tibia and fibula are obtained. Correlation is made with CT scan of the right tibia and fibula dated 01/10/2022. The skeletal structures are osteopenic. There is no radiographic evidence of fracture at the right knee joint. There is no radiographic evidence of right tibial or fibular fracture. A right knee arthroplasty is in near-anatomic alignment. There has been undersurface remodeling of the patella. No periprosthetic lucency is identified. The ankle mortise appears intact. Mild soft tissue edema is seen throughout the right leg. IMPRESSION: 1. There is no radiographic evidence of right tibial or fibular fracture. 2. No fracture is seen at the right knee joint. 3. A right knee arthroplasty is in near-anatomic alignment. Electronically signed by: Julian Sibley M.D. 02/06/2022 6:47 PM Abdomen/Pelvis CT 02/06/22 17:33 CT SCAN OF THE CHEST, ABDOMEN, AND PELVIS WITHOUT IV CONTRAST; CT SCAN OF THE LUMBAR SPINE WITHOUT IV CONTRAST CLINICAL HISTORY: Fall. COMPARISON STUDY: Chest CT dated 01/18/2020. Abdominal CT dated 3591. TECHNIQUE: Unenhanced CT scan of the chest, abdomen, and pelvis was performed from the thoracic inlet to the proximal femora. Additionally, CT scan of the lumbar spine is performed from the lower thoracic spine to the sacrum. Images for these examinations are reviewed in the axial, sagittal, and coronal planes. IV contrast was not administered for these examinations. Note that the examinations were performed in significantly suboptimal fashion without IV contrast. The examinations are also degraded by motion artifact, and by streak artifact from the arms which could not be elevated above the chest or abdomen. A dose lowering technique was utilized adhering to the principles of ALARA. CT DOSE: 1906.20 mGy.cm FINDINGS: CHEST: Thyroid: Normal in size and heterogeneous in attenuation. A coarse calcification is seen in the right lobe. Thoracic aorta: There is aneurysmal dilatation of the ascending thoracic aorta. This measures up to 5.4 cm in diameter. No intramural hematoma is seen. The remainder of the thoracic aorta is normal in caliber comment knee are demonstrates standard 3-vessel anatomy. Heart: The heart is enlarged and without pericardial effusion. The coronary arteries are densely calcified. Lungs and pleural spaces: Evaluation of the lung parenchyma is significantly degraded by motion artifact. No airspace consolidation, pleural effusion, or pneumothorax is seen. The trachea and central airways are clear. Dependent scarring/atelectasis is noted at the lung bases. Mediastinum: There is no mediastinal hematoma or lymphadenopathy. Elaine: Not well assessed without IV contrast. Axillae: There is no axillary lymphadenopathy. Bony thorax: The skeletal structures are osteopenic. The bony thorax appears intact. Degenerative change is noted in the shoulders and thoracic spine. No lytic or blastic lesions are identified. ABDOMEN AND PELVIS: Liver: The unenhanced liver is normal in size, contour, and attenuation. There is mild central intrahepatic biliary ductal dilatation. Gallbladder: Unremarkable. Spleen: Normal in size and attenuation. Pancreas: The unenhanced pancreas is moderately atrophic and grossly unremarkable. Adrenal glands: Unremarkable. Kidneys: The unenhanced kidneys demonstrate cortical atrophy and are without hydronephrosis. Placenta cortical scarring are noted in the right kidney. No renal calculi are identified. A 2.7 cm cyst is noted in the right lower pole. Additional subcentimeter cortical hypodensities also likely represent cysts but are too small for definitive characterization. Abdominal vasculature: The abdominal aorta is normal in course and caliber noting mild atherosclerotic calcification. Stomach and bowel: Postoperative change is noted in the stomach. There is no bowel obstruction. The appendix is well-visualized and normal. Peritoneum: There is no intraperitoneal free air or abdominal ascites. There is a fat-containing suprarenal umbilical hernia. Lymphadenopathy: None. Pelvic viscera: The bladder is decompressed around a Cisneros catheter. There is mild pericystic infiltration. Foci of internal gas are likely related to rot ation. The uterus and adnexa are normal as visualized. Skeletal structures: The bony pelvis and proximal femora appear intact. Degenerative change is noted in the sacroiliac joints. See below for dedicated assessment of the lumbar spine. The skeletal structures are osteopenic. No lytic or blastic lesions are seen. LUMBAR SPINE: Vertebral body height and alignment are maintained throughout the lumbar spine. There is no evidence of acute fracture or malalignment. There is mild lumbar levocurvature centered at L3. Anterior and lateral marginal o steophytes are seen throughout. The transverse and spinous processes are intact. There is no evidence of spondylolysis. Facet arthropathy is noted in the lower lumbar region. There is moderate disc space narrowing seen throughout the lumbar spine, greatest at L1-L2, L4-L5, and L5-S1. Posterior discussed by complexes are noted at all lumbar levels. There is no CT evidence of high-grade central canal stenosis The paraspinous soft tissues are within normal limits. IMPRESSION: 1. Significantly suboptimal examination without oral and IV contrast. The examinations are also compromised by streak and motion artifact. 2. No acute posttraumatic intrathoracic abnormality is identified. 3. There is no airspace consolidation, pleural effusion, or pneumothorax. 4. There is aneurysmal dilatation of the ascending thoracic aorta which measures up to 5.4 cm. This has modestly increased in size as compared to 01/18/2020. 5. There is no evidence of solid injury in the abdomen or pelvis on this unenhanced examination. 6. Cardiomegaly. 7. There is no evidence of fracture or malalignment involving the lumbar spine. 8. The bladder is decompressed around a Cisneros catheter and there is mild pericystic infiltration. Correlate with clinical findings and urinalysis. 9. Additional findings as above. ACT 112: Negative or not required by law. Electronically signed by: Julian Sibley M.D. 02/06/2022 7:[address] 02/06/22 17:33 CT SCAN OF THE CHEST, ABDOMEN, AND PELVIS WITHOUT IV CONTRAST; CT SCAN OF THE LUMBAR SPINE WITHOUT IV CONTRAST CLINICAL HISTORY: Fall. COMPARISON STUDY: Chest CT dated 01/18/2020. Abdominal CT dated 3591. TECHNIQUE: Unenhanced CT scan of the chest, abdomen, and pelvis was performed from the thoracic inlet to the proximal femora. Additionally, CT scan of the lumbar spine is performed from the lower thoracic spine to the sacrum. Images for these examinations are reviewed in the axial, sagittal, and coronal planes. IV contrast was not administered for these examinations. Note that the examinations were performed in significantly suboptimal fashion without IV contrast. The examinations are also degraded by motion artifact, and by streak artifact from the arms which could not be elevated above the chest or abdomen. A dose lowering technique was utilized adhering to the principles of ALARA. CT DOSE: 1906.20 mGy.cm FINDINGS: CHEST: Thyroid: Normal in size and heterogeneous in attenuation. A coarse calcification is seen in the right lobe. Thoracic aorta: There is aneurysmal dilatation of the ascending thoracic aorta. This measures up to 5.4 cm in diameter. No intramural hematoma is seen. The remainder of the thoracic aorta is normal in caliber comment knee are demonstrates standard 3-vessel anatomy. Heart: The heart is enlarged and without pericardial effusion. The coronary arteries are densely calcified. Lungs and pleural spaces: Evaluation of the lung parenchyma is significantly degraded by motion artifact. No airspace consolidation, pleural effusion, or pneumothorax is seen. The trachea and central airways are clear. Dependent scarring/atelectasis is noted at the lung bases. Mediastinum: There is no mediastinal hematoma or lymphadenopathy. Elaine: Not well assessed without IV contrast. Axillae: There is no axillary lymphadenopathy. Bony thorax: The skeletal structures are osteopenic. The bony thorax appears intact. Degenerative change is noted in the shoulders and thoracic spine. No lytic or blastic lesions are identified. ABDOMEN AND PELVIS: Liver: The unenhanced liver is normal in size, contour, and attenuation. There is mild central intrahepatic biliary ductal dilatation. Gallbladder: Unremarkable. Spleen: Normal in size and attenuation. Pancreas: The unenhanced pancreas is moderately atrophic and grossly unremarkable. Adrenal glands: Unremarkable. Kidneys: The unenhanced kidneys demonstrate cortical atrophy and are without hydronephrosis. Placenta cortical scarring are noted in the right kidney. No renal calculi are identified. A 2.7 cm cyst is noted in the right lower pole. Additional subcentimeter cortical hypodensities also likely represent cysts but are too small for definitive characterization. Abdominal vasculature: The abdominal aorta is normal in course and caliber noting mild atherosclerotic calcification. Stomach and bowel: Postoperative change is noted in the stomach. There is no bowel obstruction. The appendix is well-visualized and normal. Peritoneum: There is no intraperitoneal free air or abdominal ascites. There is a fat-containing suprarenal umbilical hernia. Lymphadenopathy: None. Pelvic viscera: The bladder is decompressed around a Cisneros catheter. There is mild pericystic infiltration. Foci of internal gas are likely related to rotation. The uterus and adnexa are normal as visualized. Skeletal structures: The bony pelvis and proximal femora appear intact. Degenerative change is noted in the sacroiliac joints. See below for dedicated assessment of the lumbar spine. The skeletal structures are osteopenic. No lytic or blastic lesions are seen. LUMBAR SPINE: Vertebral body height and alignment are maintained throughout the lumbar spine. There is no evidence of acute fracture or malalignment. There is mild lumbar levocurvature centered at L3. Anterior and lateral marginal osteophytes are seen throughout. The transverse and spinous processes are intact. There is no evidence of spondylolysis. Facet arthropathy is noted in the lower lumbar region. There is moderate disc space narrowing seen throughout the lumbar spine, greatest at L1-L2, L4-L5, and L5-S1. Posterior discussed by complexes are noted at all lumbar levels. There is no CT evidence of high-grade central canal stenosis The paraspinous soft tissues are within normal limits. IMPRESSION: 1. Significantly suboptimal examination without oral and IV contrast. The examinations are also compromised by streak and motion artifact. 2. No acute posttraumatic intrathoracic abnormality is identified. 3. There is no airspace consolidation, pleural effusion, or pneumothorax. 4. There is aneurysmal dilatation of the ascending thoracic aorta which measures up to 5.4 cm. This has modestly increased in size as compared to 01/18/2020. 5. There is no evidence of solid injury in the abdomen or pelvis on this unenhanced examination. 6. Cardiomegaly. 7. There is no evidence of fracture or malalignment involving the lumbar spine. 8. The bladder is decompressed around a Cisneros catheter and there is mild peric ystic infiltration. Correlate with clinical findings and urinalysis. 9. Additional findings as above. ACT 112: Negative or not required by law. Electronically signed by: Julian Sibley M.D. 02/06/2022 7:04 PM Discharge Plan Visit Data Chief Complaint: Fall Stated Complaint: fall ED Provider: Kaveh Henriquez ED Midlevel Provider: Dimple Peraza Discharge Problem: Fall, Elevated INR, Rhabdomyolysis, JAEL (acute kidney injury), Acute hypokalemia, Contusion of multiple sites, Acute UTI Patient Disposition: Admitted As Inpatient Forms Stand Alone Forms: [facility] Prescriptions Prescriptions: No Action furosemide 40 mg tablet 40 - 80 mg PO DAILY atorvastatin 20 mg tablet 20 mg PO QAM ipratropium-albuterol 0.5 mg-3 mg(2.5 mg base)/3 mL solution for nebulization 3 ml INHALATION QID ondansetron HCl 4 mg Tablet 4 mg PO Q12 PRN (Reason: Nausea) sennosides-docusate sodium [Senna-S] 8.6-50 mg Tablet 1 tab-cap PO BID cromolyn 4 % drops 1 drp OPL QID PRN (Reason: Itching) thiamine HCl (vitamin B1) 100 mg Tablet 100 mg PO BID warfarin 2.5 mg tablet 0 mg PO DIRECTED Rx Instructions: DIRECTED BY ANTI-COAGULATION CLINIC docusate sodium 50 mg Capsule 50 mg PO BID PRN (Reason: Constipation) triamcinolone acetonide 0.1 % Cream 1 applic TOPICAL BID triamcinolone acetonide 0.1 % cream 1 applic TOPICAL BID PRN (Reason: FLARE UP) potassium chloride [Klor-Con] 20 mEq packet 20 meq PO AMHS Rx Instructions: WHILE ON LASIX clindamycin phosphate 1 % gel 1 applic TOPICAL BID PRN (Reason: FLARE UPS) meclizine 25 mg Tablet 25 mg PO TID PRN (Reason: DIZZY) levothyroxine 50 mcg tablet 50 mcg PO DAILY ropinirole 2 mg tablet See Rx Instructions .ROUTE .COMPLEX Rx Instructions: 1 TAB IN AM, 1 TAB LUNCH, 1 TAB MID EVENING , 2 TABS @ HS WITH FOOD. omeprazole 20 mg capsule,delayed release(DR/EC) 40 mg PO DAILY montelukast 10 mg tablet 10 mg PO HS calcium citrate 150 mg Capsule 0 mg PO BID hydroxyzine HCl 25 mg Tablet 25 mg PO Q6 PRN (Reason: .ANX/ITCH) ergocalciferol (vitamin D2) [Vitamin D2] 1,250 mcg (50,000 unit) Capsule 1,250 mcg PO WK fluticasone propion-salmeterol [Advair Diskus] 100-50 mcg/dose Blister With Device 1 inh INHALATION BID albuterol sulfate 90 mcg/actuation Hfa Aerosol Inhaler 2 inh INHALATION Q6 PRN (Reason: Shortness Of Breath Or Wheezing) carbidopa-levodopa 25-100 mg Tablet 1 tab PO QID fluticasone propionate [Flonase Allergy Relief] 50 mcg/actuation [place],Suspension 2 spray INTRANASAL DAILY ipratropium bromide 21 mcg (0.03 %) [place],Non-Aerosol 1 spray INTRANASAL QID fluticasone propionate 110 mcg/actuation Hfa Aerosol Inhaler 2 puff INHALATION BID cyanocobalamin (vitamin B-12) 1,000 mcg/mL Syringe 1,000 mcg MO Rx Instructions: INJECTION metaxalone 800 mg tablet 800 mg PO QID Rx Instructions: TAKE 1 TAB IN AM,NOON,PM, HS omega-3 fatty acids Capsule 1,000 mg PO DAILY metoprolol tartrate 25 mg tablet 12.5 mg PO QPM biotin 1 mg Tablet 1 mg PO DAILY diclofenac sodium 1 % Gel 2 g TOPICAL QID Linzess 290 mcg capsule 290 mcg PO DAILY buprenorphine 15 mcg/hour patch weekly 1 patch topical WK PreserVision AREDS-2 250-90-40-1 mg Capsule 1 tab PO BID Probiotic Acidophilus Biobeads 12.9 mg (2 billion cell) Tablet,Delayed Release (Dr/Ec) 2 tab PO DAILY lidocaine HCl 2.8 % Gel 1 applic TOPICAL BID PRN (Reason: APPLY TO AFFECTED AREAA) Referrals Referrals: Debbie Otero PA-C [Primary Care Provider] -
[2022-02-06 16:48] LABS: Hematocrit (blood only) 32.5 % (34.1-44.9); Hemoglobin 10.7 g/dl (12.0-16.0); Mean Corpuscular Hemoglobin 29.9 pg (25.0-34.0); Mean Corpuscular Hgb Conc 32.9 g/dL (32.0-36.0); Mean Corpuscular Volume 90.8 fL (80.0-100.0); Mean Platelet Volume 10.6 fL (9.4-12.3); Platelet Count 221 K/uL (130-400); RDW Coefficient of Variation 14.5 % (11.5-14.5); RDW Standard Deviation 48.6 fL (36.4-46.3); Red Blood Count 3.58 M/uL (3.93-5.22); White Blood Count 15.56 K/ul (4.8-10.8)
[2022-02-06 17:07] LABS: Basophils # (auto) 0.02 K/uL (0-0.2); Basophils % (auto) 0.1 %; Echinocytes 2+; Immature Granulocytes # (auto) 0.07 K/uL (0.00-0.02); Immature Granulocytes % (auto) 0.4 %; Lymphocytes # (auto) 0.55 K/uL (1.2-3.4); Lymphocytes % (auto) 3.5 %; Monocytes # (auto) 0.56 K/uL (0.24-0.82); Monocytes % (auto) 3.6 %; Neutrophils # (auto) 14.36 K/uL (1.4-6.5); Neutrophils % (auto) 92.4 %
[2022-02-06 17:19] LABS: Alanine Aminotransferase 5 U/L (7-52); Albumin Globulin Ratio 1.3 (0.9-2); Alkaline Phosphatase 70 U/L (34-104); Anion Gap 12 (3-11); BUN Creatinine Ratio 39.7 (10-20); Bilirubin,Total 1.5 mg/dl (0.2-1.0); Blood Urea Nitrogen 60 mg/dl (6-23); Calcium 8.6 mg/dl (8.5-10.1); Carbon Dioxide 21 mmol/L (21-32); Chloride 109 mmol/L (98-107); Creatine Kinase 1703 U/L (26-192); Est GFR (African American) 39.9 ml/min; Est GFR (Non-African American) 34.4 ml/min; Globulin 2.4 gm/dl (2.5-4.0); Glucose 130 mg/dl (70-99(Fasting)); Sodium 142 mmol/L (136-145); Total Protein 5.4 gm/dl (6.0-8.3)
[2022-02-06 17:44] LABS: Appearance Urine Turbid (Clear); Bilirubin Urine 1+ (Negative); Blood Urine 3+ (Negative); Glucose Urine UA Negative (Negative); Ketones Urine Trace (Negative); Leukocyte Esterase Urine 3+ (Negative); Nitrite Urine Positive (Negative); Protein Urine 2+ (Negative); Urobilinogen Urine Negative (Negative); pH Urine >= 9.0 (4.5-7.5)
[2022-02-06 17:53] LABS: Color Urine Dark Yellow
[2022-02-06 18:18] LABS: Potassium 2.8 mmol/L (3.5-5.1)
--- NOTE | 2022-02-06 18:46 | CT Scan Report ---
CT SCAN OF THE BRAIN WITHOUT IV CONTRAST CLINICAL HISTORY: Fall. COMPARISON STUDY: CT of the brain dated 01/12/2022. TECHNIQUE: Unenhanced axial CT scan of the brain is performed from the vertex to the skull base. A do se lowering technique was utilized adhering to the principles of ALARA. FINDINGS: Brain parenchyma: There is age-related involutional change noting mild subcortical and periventricula r microangiopathic disease. There is no hemorrhage, mass effect, or evidence of acute territorial isc hemia by CT criteria. Serra-white matter differentiation is preserved. No extra-axial fluid collection is seen. Ventricles, sulci, cisterns: Prominent secondary to involutional change. Intracranial vasculature: There is atherosclerotic calcification of the cavernous carotid and vertebr al arteries. Calvarium: The skeletal structures are osteopenic. No depressed calvarial fracture is identified. Soft tissues: There are posterior scalp contusions. Sinuses and mastoids: The visualized paranasal sinuses are clear. The mastoid air cells are well pneu matized. Orbits: The bony orbits are grossly intact. There are bilateral ocular lens implants. IMPRESSION: There is no hemorrhage, mass effect, or evidence of acute territorial ischemia by CT gamaliel de la cruz. ACT 112: Negative or not required by law. Electronically signed by: Julian Sibley M.D. 02/06/2022 6:44 PM
[2022-02-06] MEDS ORDERED: POTASSIUM CHLORIDE / WTR 10 MEQ/100 ML PLCT IV ONE (18:49)
--- NOTE | 2022-02-06 18:49 | XRay Report ---
RIGHT KNEE 2 VIEWS; RIGHT TIBIA AND FIBULA 2 VIEWS CLINICAL HISTORY: Fall. Bruising. FINDINGS: AP and crosstable lateral views of the right knee with AP and lateral views of the right ti nina and fibula are obtained. Correlation is made with CT scan of the right tibia and fibula dated 01/10. The skeletal structures are osteopenic. There is no radiographic evidence of fracture at the r ight knee joint. There is no radiographic evidence of right tibial or fibular fracture. A right knee arthroplasty is in near-anatomic alignment. There has been undersurface remodeling of the patella. No periprosthetic lucency is identified. The ankle mortise appears intact. Mild soft tissue edema is se en throughout the right leg. IMPRESSION: 1. There is no radiographic evidence of right tibial or fibular fracture. 2. No fracture is seen at the right knee joint. 3. A right knee arthroplasty is in near-anatomic alignment. Electronically signed by: Julian Sibley M.D. 02/06/2022 6:47 PM
[2022-02-06 18:51] LABS: Bacteria Urine 4+ (Negative); Epithelial Cell Urine 0-5 /lpf (0-5); Mucus Urine Present (None Prsent); Triple Phosphate Crystal Urine Present (None Prsent)
[2022-02-06] MEDS ORDERED: PIPERACILLIN/TAZOBACTAM 4.5 GM/120 ML BAG IV ONE (18:52)
--- NOTE | 2022-02-06 19:06 | CT Scan Report ---
CT SCAN OF THE CHEST, ABDOMEN, AND PELVIS WITHOUT IV CONTRAST; CT SCAN OF THE LUMBAR SPINE WITHOUT IV CONTRAST CLINICAL HISTORY: Fall. COMPARISON STUDY: Chest CT dated 01/18/2020. Abdominal CT dated 3591. TECHNIQUE: Unenhanced CT scan of the chest, abdomen, and pelvis was performed from the thoracic inlet to the proximal femora. Additionally, CT scan of the lumbar spine is performed from the lower thorac ic spine to the sacrum. Images for these examinations are reviewed in the axial, sagittal, and nagel l planes. IV contrast was not administered for these examinations. Note that the examinations were pe rformed in significantly suboptimal fashion without IV contrast. The examinations are also degraded b y motion artifact, and by streak artifact from the arms which could not be elevated above the chest o r abdomen. A dose lowering technique was utilized adhering to the principles of ALARA. CT DOSE: 1906.20 mGy.cm FINDINGS: CHEST: Thyroid: Normal in size and heterogeneous in attenuation. A coarse calcification is seen in the right lobe. Thoracic aorta: There is aneurysmal dilatation of the ascending thoracic aorta. This measures up to 5 .4 cm in diameter. No intramural hematoma is seen. The remainder of the thoracic aorta is normal in c aliber comment knee are demonstrates standard 3-vessel anatomy. Heart: The heart is enlarged and without pericardial effusion. The coronary arteries are densely calc ified. Lungs and pleural spaces: Evaluation of the lung parenchyma is significantly degraded by motion artif act. No airspace consolidation, pleural effusion, or pneumothorax is seen. The trachea and central ai rways are clear. Dependent scarring/atelectasis is noted at the lung bases. Mediastinum: There is no mediastinal hematoma or lymphadenopathy. Elaine: Not well assessed without IV contrast. Axillae: There is no axillary lymphadenopathy. Bony thorax: The skeletal structures are osteopenic. The bony thorax appears intact. Degenerative rashawn nge is noted in the shoulders and thoracic spine. No lytic or blastic lesions are identified. ABDOMEN AND PELVIS: Liver: The unenhanced liver is normal in size, contour, and attenuation. There is mild central intrah epatic biliary ductal dilatation. Gallbladder: Unremarkable. Spleen: Normal in size and attenuation. Pancreas: The unenhanced pancreas is moderately atrophic and grossly unremarkable. Adrenal glands: Unremarkable. Kidneys: The unenhanced kidneys demonstrate cortical atrophy and are without hydronephrosis. Placenta cortical scarring are noted in the right kidney. No renal calculi are identified. A 2.7 cm cyst is n oted in the right lower pole. Additional subcentimeter cortical hypodensities also likely represent c ysts but are too small for definitive characterization. Abdominal vasculature: The abdominal aorta is normal in course and caliber noting mild atheroscleroti c calcification. Stomach and bowel: Postoperative change is noted in the stomach. There is no bowel obstruction. The a ppendix is well-visualized and normal. Peritoneum: There is no intraperitoneal free air or abdominal ascites. There is a fat-containing supr arenal umbilical hernia. Lymphadenopathy: None. Pelvic viscera: The bladder is decompressed around a Cisneros catheter. There is mild pericystic infiltr ation. Foci of internal gas are likely related to rotation. The uterus and adnexa are normal as visua lized. Skeletal structures: The bony pelvis and proximal femora appear intact. Degenerative change is noted in the sacroiliac joints. See below for dedicated assessment of the lumbar spine. The skeletal struct ures are osteopenic. No lytic or blastic lesions are seen. LUMBAR SPINE: Vertebral body height and alignment are maintained throughout the lumbar spine. There i s no evidence of acute fracture or malalignment. There is mild lumbar levocurvature centered at L3. A nterior and lateral marginal osteophytes are seen throughout. The transverse and spinous processes ar e intact. There is no evidence of spondylolysis. Facet arthropathy is noted in the lower lumbar regio n. There is moderate disc space narrowing seen throughout the lumbar spine, greatest at L1-L2, L4-L5, and L5-S1. Posterior discussed by complexes are noted at all lumbar levels. There is no CT evidence of high-grade central canal stenosis The paraspinous soft tissues are within normal limits. IMPRESSION: 1. Significantly suboptimal examination without oral and IV contrast. The examinations are also compr omised by streak and motion artifact. 2. No acute posttraumatic intrathoracic abnormality is identified. 3. There is no airspace consolidation, pleural effusion, or pneumothorax. 4. There is aneurysmal dilatation of the ascending thoracic aorta which measures up to 5.4 cm. This h as modestly increased in size as compared to 01/18/2020. 5. There is no evidence of solid injury in the abdomen or pelvis on this unenhanced examination. 6. Cardiomegaly. 7. There is no evidence of fracture or malalignment involving the lumbar spine. 8. The bladder is decompressed around a Cisneros catheter and there is mild pericystic infiltration. Cor relate with clinical findings and urinalysis. 9. Additional findings as above. ACT 112: Negative or not required by law. Electronically signed by: Julian Sibley M.D. 02/06/2022 7:04 PM
--- NOTE | 2022-02-06 19:07 | XRay Report ---
RIGHT FEMUR 3 VIEWS CLINICAL HISTORY: Fall. FINDINGS: AP, frog-leg, and crosstable lateral views of the right femur are obtained. No prior studie s are available for comparison at the time of dictation. The skeletal structures are osteopenic. Ther e is no radiographic evidence of fracture involving the right femur or the visualized right hemipelvi s. The right hip joint is grossly maintained. A right knee arthroplasty is in place. The overlying so ft tissues are normal as imaged. IMPRESSION: There is no radiographic evidence of right femoral fracture. Electronically signed by: Jluian Sibley M.D. 02/06/2022 7:06 PM
[2022-02-06] MEDS ORDERED: POTASSIUM CHLORIDE 20 MEQ/15 ML UDC PO STA (19:39)
[2022-02-06 20:14] LABS: Partial Thromboplastin Ratio 3.5; Prothrombin Time > 90.0 Seconds (9.0-12.0)
[2022-02-06 21:13] LABS: Partial Thromboplastin Time 97.6 Seconds (21.0-31.0)
[2022-02-06 21:33] LABS: INR > 9.6 (0.9-1.1)
[2022-02-06] MEDS ORDERED: PHYTONADIONE 5 MG TAB PO STA (22:05)
[2022-02-06] MEDS ORDERED: PHYTONADIONE 5 MG TAB PO ONE (22:11)
[2022-02-06] MEDS ORDERED: ONDANSETRON 4 MG OD TAB PO PRN (22:58)
[2022-02-06] MEDS ORDERED: NON-FORMULARY MEDICATION (Clindamycin Phosphate 1 % gel) TOP PRN (22:58)
[2022-02-06] MEDS ORDERED: ALBUTEROL HFA 8 GM INHALER INH PRN (22:58)
[2022-02-06] MEDS ORDERED: TRIAMCINOLONE ACET 0.1% CR 15 GM TUBE TOP PRN (22:58)
[2022-02-06] MEDS ORDERED: NITROGLYCERIN SL 0.4 MG/TAB TAB SL PRN (22:58)
--- NOTE | 2022-02-06 23:14 | History and Physical Report ---
DATE OF ADMISSION: 02/06/2022. CHIEF COMPLAINT: Status post fall. HISTORY OF PRESENT ILLNESS: This is a 71-year-old female with past medical history significant for hypothyroidism, hyperlipidemia, Edenilson-Danlos syndrome, mild persistent asthma without complication, obstructive sleep apnea, intermittent asthma, thoracic aortic aneurysm, hypertension, chronic diastolic CHF, paroxysmal supraventricular tachycardia, superficial vein thrombosis, morbid obesity, vitamin D deficiency, intestinal malabsorption following gastrectomy, gastroparesis, GERD, restless legs syndrome, fibromyalgia, osteoporosis, hypercoagulopathy, history of gastric bypass, depression, gait abnormality. The patient presents with fall. The patient ambulates with a walker. She said yesterday while she went to shower, she fell in the shower, she did not hit her head, she did not lose her consciousness. Her walker was outside, which was folded and was down and she could not able to reach her walker and she laid in the shower. Today, when the food delivery monika came and found her in the bathroom as per the patient and was brought to the ER. In the ER, she was tachycardic, hypotensive, slightly hypothermic. White count was elevated. Potassium was 2.8. Creatinine was 1.5. Total creatinine kinase was 1700. Lactate was okay. Urinalysis was grossly positive. Imaging studies, no acute findings. The patient denies any headache, denies any blurred visions, no earache, but states she has postnasal drip, occasional cough. She says whenever she eats, she has to drink water to swallow. She denies any chest pain, no shortness of breath, no nausea, no abdominal pain. She is taking stool softners for bowel movements, status post lei in the ER. She was recently in the hospital for cellulitis of the right leg, and treated with the daptomycin and cefepime. Right leg is slightly erythematous. She states it has been red for some time now.Speaking in low voices. ALLERGIES: AMMONIA, BUSPIRONE, DULOXETINE, LISINOPRIL, ADHESIVE, NSAIDS, VANCOMYCIN, VENLAFAXINE, BENADRYL, GABAPENTIN, POLLEN, DUST. PAST MEDICAL HISTORY: As mentioned above. PAST SURGICAL HISTORY: Abdominal surgery, left total knee arthroplasty, left carpal tunnel surgery, colonoscopy, EGDs, gastric bypass surgery, EGD with biopsy, lumbosacral spine injection, injection of the cervical spine, knee arthroscopy, partial hysterectomy, reduction of bowel obstruction, reduction of breast, tonsillectomy, cholecystectomy, sacroiliac joint injection, umbilical hernia repair. MEDICATIONS: The patient is on albuterol 2 puffs inhalation q.6 hours p.r.n., atorvastatin 20 mg p.o. a.m., Biotin 1 mg p.o. daily, buprenorphine 1 patch topical weekly, carbidopa/levodopa one tablet p.o. q.i.d., vitamin B12 1000 mcg monthly, diclofenac sodium 2 g topical q.i.d., Colace 50 mg p.o. b.i.d. p.r.n., vitamin B12 50 mcg p.o. weekly, Advair Diskus one inhalation b.i.d., Flonase 2 sprays intranasal daily, furosemide 40-80 mg p.o. daily for leg swelling, hydroxyzine 25 mg p.o. q.6 hours p.r.n., DuoNebs 3 mL inhalation q.i.d., levothyroxine 50 mcg p.o. daily, Linzess 290 mcg p.o. daily, lidocaine topical b.i.d. p.r.n., meclizine 25 mg p.o. t.i.d. p.r.n. dizziness, metaxalone 800 mg p.o. q.i.d., metoprolol tartrate 25 mg p.o. q.p.m., Montelukast 10 mg p.o. at bedtime, Shiloh fatty acid 1000 mg p.o. daily, omeprazole 40 mg p.o. daily, Zofran 4 mg p.o. b.i.d. p.r.n., Klor-Con 20 mEq p.o. b.i.d., Orudis one tablet p.o. b.i.d., probiotics 1-2 tablets p.o. daily, ropinirole as directed, Senokot- S one tablet p.o. b.i.d., thiamine 100 mg p.o. b.i.d., Coumadin 3.75 mg p.o. on Mondays and 2.5 mg rest of the days. FAMILY HISTORY: Significant for father has alcoholism and mental disorder, mother has alcoholism, arthritis, blood disorder, diabetes, hypothyroidism, eye problems, gastrointestinal disorder, glaucoma, heart disorder, hypertension, asthma, emphysema, depression, osteoporosis, neurological disorder, obesity, stroke. SOCIAL HISTORY: Single, no smoking. Alcohol is usually at the holidays. No drug use. REVIEW OF SYSTEMS: As per HPI. Rest of the review of systems is negative. PHYSICAL EXAMINATION: GENERAL: The patient is of moderate build, not in acute distress. VITAL SIGNS: Temperature 35.9, pulse 96, respiratory rate of 22, blood pressure 92/57, oxygen 97% on room air. HEENT: Pupils equal, round and reactive to light. Oral mucosa dry. NECK: No JVD, no neck masses. CARDIOVASCULAR: S1 and S2 heard. Regular rate and rhythm. No murmur, no gallop. RESPIRATORY: Normal AP diameter. No accessory muscle use. No wheezing, no crackles. ABDOMEN: Soft, bowel sounds present, nontender, no distention. CENTRAL NERVOUS SYSTEM: Alert and oriented. No facial droop. Obeys simple commands. Insight is good. Speaks in low volumes. Moves extremities. EXTREMITIES: No bilateral lower extremity edema present with some erythematous changes in the left lower extremity. LABORATORY DATA: WBC 15.5, hemoglobin 10.7, hematocrit 32.5, platelets 221. Sodium 142, potassium 2.8, chloride 109, bicarbonate 21, BUN 60, creatinine 1.5, serum glucose 130. Lactate 1.5, calcium 8.6, magnesium 1.8, total bilirubin 1.5, AST 79, ALT 65, alkaline phosphatase 70, total creatine kinase 1700. Urinalysis, +3 blood, trace ketones, nitrite positive, leukocyte esterase 3+ positive, urine bacteria 4+ positive. SARS-CoV-2 rapid test negative. IMAGING DATA: CT scan of chest, abdomen and pelvis without IV contrast, CT scan of the lumbar spine without IV contrast, no acute posttraumatic intrathoracic abnormalities identified. There is no airspace consolidation, pleural effusion or pneumothorax. There is evidence of dilatation of the ascending thoracic aorta, which measures up to 5.4 cm. This has moderately increased in size compared to 01/18/2020. No evidence of solid injury in the abdomen or pelvis on this unenhanced examination. Cardiomegaly. There is no evidence of fracture or malalignment involving the lumbar spine. The bladder is decompressed around the Lei catheter and there is a mild pericystic infiltration correlates with clinical findings and urinalysis. CT of the head, no acute findings. Right knee, two x-rays on the right tibia-fibula 2 views, no acute findings. Right knee erythema exists, no acute findings. EKG: Poor quality. Normal sinus rhythm at a rate of 98, possible left atrial enlargement, incomplete right bundle-branch block, nonspecific ST abnormalities seen. ASSESSMENT AND PLAN: This is a 71-year-old female who presents with fall. 1. Fall. History of ambulatory dysfunction, ambulates with walker, presents with fall, most likely secondary to urinary tract infection. PT, OT when stable. Monitor in the hospital. 2. Possible sepsis with elevated white count, tachycardia, blood pressure soft. Urinalysis positive.ER Empirically started Zosyn, which will be continued. Follow the cultures. IV fluids. Will follow the repeat labs. 3. Hypokalemia. We will replace. Follow the repeat labs. 4. Acute kidney injury. Baseline creatinine of 0.9, present creatinine of 1.5. Getting fluids. Avoid nephrotoxic agents. Follow the repeat labs. Holding diuretics. 5. Elevated CPK, mild rhabdomyolysis. Follow the repeat CPK in the a.m., getting fluids. Mild elevation in bilirubin. Will follow the repeat labs in the a.m. 6. Chronic diastolic CHF, holding the diuretics. Getting fluids. Monitor for any volume overload. 7. Hypothyroidism. Continue home Synthroid. 8. History of Parkinson. Continue home carbidopa/levodopa. 9. Hyperlipidemia. Continue statin. 10. Chronic pain. Continue home pain medications. 11. Hypertension. As per the Epic, she is on metoprolol 25 mg in the a.m. and 12.5 mg in the p.m. currently. On last admission, metoprolol 12.5 p.m. Will need to clarify. Will hold for now as the patient is hypotensive. 12. Gastroesophageal reflux disease. Continue omeprazole. 13. Restless leg syndrome: Continue ropinirole. 14. History of deep venous thrombosis and pulmonary embolism. On Coumadin. Follow PT/INR. 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 16. History of asthma. Stable. Continue home medications. 17. Chronic anemia. Follow the H and H. 18. History of gastric bypass. 19. History of peripheral vascular disease. 20. History of hypercoagulability. History of pulmonary embolus and deep venous thrombosis. On Coumadin. 22. History of thoracic aortic aneurysm, needs to follow. 23. Deep venous thrombosis prophylaxis. On Coumadin. Follow INR. DISPOSITION: Closely monitor in the tele floor. Level 1 full code as per my discussion with the patient. PT/OT prior to discharge. Social service to help with discharge planning. Job ID: [id number] MTDD
[2022-02-06] MEDS ORDERED: ALBUT/IPRATROP 3MG/0.5MG NEB 3 ML VIAL ONE (23:47)
[2022-02-07] MEDS: ALBUT/IPRATROP 3MG/0.5MG NEB 3 ML VIAL INH SCH ×2 (00:01→06:56)
[2022-02-07] MEDS: MONTELUKAST SODIUM 10 MG TABLET PO SCH ×2 (00:47→20:59)
[2022-02-07] MEDS: METAXALONE 800 MG TABLET PO SCH ×5 (00:47→20:58)
[2022-02-07] MEDS: CARBIDOPA/LEVODOPA 25/100MG TAB PO SCH ×5 (00:47→20:58)
[2022-02-07] MEDS: rOPINIRole HCL 1 MG TABLET PO SCH ×5 (00:47→20:59)
[2022-02-07] MEDS: POTASSIUM CHLORIDE / WTR 10 MEQ/100 ML PLCT IV SCH ×4 (00:48→03:48)
[2022-02-07] MEDS ORDERED: Patient's HEIGHT &/or WEIGHT Needed STA (03:07)
[2022-02-07] MEDS: DOCUSATE SODIUM/SENNA 50/8.6MG TAB PO SCH ×3 (03:49→20:58)
[2022-02-07] MEDS: SODIUM CHLORIDE 0.9% 1000ML 1,000 ML IV SCH ×4 (03:50→23:51)
[2022-02-07] MEDS: Patient's HEIGHT &/or WEIGHT Needed SCH (03:50)
[2022-02-07] MEDS: PIPERACILLIN/TAZOBACTAM 3.375 GM in DEXTROSE 5% 100 ML IV SCH ×3 (05:02→21:11)
[2022-02-07 05:06] LABS: A calco-baum cmplx NotReported Not Detected (NotDetected); Bact fragilis Not Reported Not Detected (NotDetected); C auris Not Reported Not Detected (NotDetected); Calbicans Not Reported Not Detected (NotDetected); Candida glabrata Not Reported Not Detected (NotDetected); Candida krusei Not Reported Not Detected (NotDetected); Cneoformans/gatti Not Reported Not Detected (NotDetected); Cparapsilosis Not Reported Not Detected (NotDetected); Ctropicalis Not Reported Not Detected (NotDetected); E cloacae compx Not Reported Not Detected (NotDetected); Efaecalis Not Reported Not Detected (NotDetected); Efaecium Not Reported Not Detected (NotDetected); Enterobacterales Not Reported Not Detected (NotDetected); Escherichia coli Not Reported Not Detected (NotDetected); H influenzae Not Reported Not Detected (NotDetected); K aerogenes Not Reported Not Detected (NotDetected); Koxytoca Not Reported Not Detected (NotDetected); Kpneumoniae grp Not Reported Not Detected (NotDetected); Lmonocyt Not Reported Not Detected (NotDetected); N meningitidis Not Reported Not Detected (NotDetected); P aeruginosa Not Reported Not Detected (NotDetected); Proteus spp Not Reported Not Detected (NotDetected); Salmonella spp Not Reported Not Detected (NotDetected); Smarcescens Not Reported Not Detected (NotDetected); Staph lugdunensis Not Reported Not Detected (NotDetected); Staph spp. Not Reported Not Detected (NotDetected); Staphaureus Not Reported Not Detected (NotDetected); Staphepi Not Reported Not Detected (NotDetected); Stenmaltophilia Not Reported Not Detected (NotDetected); Strep agal(GrpB) Not Reported Not Detected (NotDetected); Strep pneum Not Reported Not Detected (NotDetected); Strep pyog (GrpA) Not Reported Not Detected (NotDetected); Strep spp Not Reported Not Detected (NotDetected)
--- NOTE | 2022-02-07 06:44 | Communication Note ---
Date of Service: February 07, 2022 INR > 9.6. Holding coumadin. vitamin k 5mg po ordered. will follow daily INR. Thanks
[2022-02-07 07:38] LABS: Hemoglobin 9.1 g/dl (12.0-16.0); Mean Corpuscular Hemoglobin 29.4 pg (25.0-34.0); Mean Corpuscular Hgb Conc 31.4 g/dL (32.0-36.0); Mean Corpuscular Volume 93.5 fL (80.0-100.0); Mean Platelet Volume 10.3 fL (9.4-12.3); Nucleated RBC # (auto) 0.02 K/uL (0-0); Nucleated RBC % (auto) 0.2 %; Platelet Count 193 K/uL (130-400); RDW Coefficient of Variation 14.8 % (11.5-14.5); RDW Standard Deviation 50.6 fL (36.4-46.3); White Blood Count 10.72 K/ul (4.8-10.8)
--- NOTE | 2022-02-07 07:40 | Hospitalist Progress Note ---
Date of Service February 07, 2022 Assessment & Plan (1) Fall: (2) Elevated INR: (3) Rhabdomyolysis: (4) JAEL (acute kidney injury): (5) Acute hypokalemia: (6) Acute UTI: Plan: This is a 71-year-old female who presents with fall. 1. Fall. History of ambulatory dysfunction, ambulates with walker, presents with fall, most likely secondary to urinary tract infection. PT, OT when stable. Monitor in the hospital. 2. Possible sepsis with elevated white count, tachycardia, blood pressure on lower side. UTI Urinalysis positive. ER Empirically started Zosyn, which will be continued. Follow the cultures. IV fluids. Will follow the repeat labs. Bacteremia Blood culture positive for gram-positive bacilli on admission Follow final culture results Repeat blood culture Obtain echo ID consult 3. Hypokalemia. Replace and monitor 4. Acute kidney injury. Baseline creatinine of 0.9, On admission creatinine of 1.5. Getting fluids. Avoid nephrotoxic agents. Follow the repeat labs. Holding diuretics. 5. Elevated CPK, mild rhabdomyolysis. Follow the repeat CPK. getting fluids. Mild elevation in bilirubin. Mild elev. in troponin secondary to rhabdo. Will follow the repeat labs Echo ordered 6. Chronic diastolic CHF, holding the diuretics. Getting fluids. Monitor for any volume overload. 7. Hypothyroidism. Continue home Synthroid. 8. History of Parkinson. Continue home carbidopa/levodopa. 9. Hyperlipidemia. Continue statin. 10. Chronic pain. Continue home pain medications. 11. Hypertension. As per the [facility], she is on metoprolol 25 mg in the a.m. and 12.5 mg in the p.m. currently. On last admission, metoprolol 12.5 p.m. Will need to clarify. Will hold for now as the patient is hypotensive. 12. Gastroesophageal reflux disease. Continue omeprazole. 13. Restless leg syndrome: Continue ropinirole. 14. History of deep venous thrombosis and pulmonary embolism. On Coumadin. Follow PT/INR. 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 16. History of asthma. Stable. Continue home medications. 17. Chronic anemia. Follow the H and H. 18. History of gastric bypass. 19. History of peripheral vascular disease. 20. History of hypercoagulability. History of pulmonary embolus and deep venous thrombosis. On Coumadin. INR elevated on admission, and vit. K given. Follow INR 21. History of thoracic aortic aneurysm, needs to follow. DVT prophylaxis. On Coumadin. Follow INR. INR elevated on admission, vit. K given, follow INR DISPOSITION: Closely monitor in the tele floor.PT/OT prior to discharge. Social service to help with discharge planning. full code Admission and Anticipated Discharge Date Admission Date: February 06, 2022 Subjective Patient seen in follow-up of fall, UTI Blood culture positive for gram-positive bacilli on admission Patient is currently lying in bed, in no acute distress Denies fevers, chills, chest pain, shortness of breath Denies abdominal pain, nausea or vomiting She feels weak Review of Systems Review of Systems: All systems reviewed & are unremarkable except as noted in Subjective Physical Exam Physical Exam: GENERAL: obese F not in acute distress. HEENT: NC/AT. EOMI, Pupils equal, round and reactive to light. Oral mucosa dry. NECK: No JVD, no neck masses. CARDIOVASCULAR: S1 and S2 heard. Regular rate and rhythm. No murmur, no gallop. RESPIRATORY: Normal AP diameter. No accessory muscle use. No wheezing, no crackles. ABDOMEN: Soft, bowel sounds present, nontender, no distention. NEURO: Alert and oriented. No facial droop. Obeys simple commands. Insight is good. Speaks in low volumes. Moves extremities. EXTREMITIES: No bilateral lower extremity edema present with some erythematous changes in the left lower extremity. Results & Data Results & Data ([facility]) Vital Signs (Past 12 Hours) Vital Signs Pulse Pulse Resp BP Pulse Ox O2 Del Method 02/07/22 07:00 99 H 23 100 02/07/22 06:30 93 H 22 94 02/07/22 06:30 130/69 02/07/22 06:56 93 H 19 96 Room Air 02/07/22 06:00 90 20 115/73 93 02/07/22 05:30 91 H 20 123/63 96 02/07/22 05:00 98 H 20 133/74 96 02/07/22 03:52 105 H 22 129/71 98 02/07/22 02:00 94 H 24 02/07/22 01:00 97 H 23 02/07/22 00:00 96 H 20 97 02/06/22 23:00 102 H 23 02/06/22 22:00 100 H 26 H 02/06/22 21:00 92 H 19 02/06/22 20:00 99 H 20 02/06/22 23:52 100 H 22 97 Room Air Laboratory Results 02/07/22 02/07/22 02/06/22 Range/Units 07:11 07:11 23:23 WBC Pending (4.8-10.8) K/ul RBC Pending (3.93-5.22) M/uL Hgb Pending (12.0-16.0) g/dl Hct Pending (34.1-44.9) % MCV Pending (80.0-100.0) fL MCH Pending (25.0-34.0) pg MCHC Pending (32.0-36.0) g/dL RDW Std Deviation (36.4-46.3) fL RDW Coeff of Neft[place] (11.5-14.5) % Plt Count Pending (130-400) K/uL MPV (9.4-12.3) fL Immature Gran % (Auto) % Neut % (Auto) % Lymph % (Auto) % [place] % (Auto) % Eos % (Auto) % Baso % (Auto) % Neut # (Auto) (1.4-6.5) K/uL Lymph # (Auto) (1.2-3.4) K/uL [place] # (Auto) (0.24-0.82) K/uL Eos # (Auto) (0-0.50) K/uL Baso # (Auto) (0-0.2) K/uL Immature Gran # (Auto) (0.00-0.02) K/uL Echinocytes PT INR APTT PTT Ratio Sodium Pending (136-145) mmol/L Potassium Pending Chloride Pending (98-107) mmol/L Carbon Dioxide Pending (21-32) mmol/L Anion Gap Pending (3-11) BUN Pending (6-23) mg/dl Creatinine Pending (0.6-1.2) mg/dl Est Cr Clr Drug Dosing Pending Est GFR ( Amer) Pending ml/min Est GFR (Non-Af Amer) Pending ml/min BUN/Creatinine Ratio Pending (10-20) Glucose Pending (70-99(Fasting)) mg/dl Lactate (0.4-2.0) mmol/L Calcium Pending (8.5-10.1) mg/dl Magnesium Pending (1.7-2.4) mg/dl Total Bilirubin Pending (0.2-1.0) mg/dl Direct Bilirubin Pending AST Pending ALT Pending (7-52) U/L Alkaline Phosphatase Pending (34-104) U/L Total Creatine Kinase Pending (26-192) U/L Troponin I High Sens Pending (0-14) pg/ml Total Protein Pending (6.0-8.3) gm/dl Albumin Pending (3.4-5.0) gm/dl Globulin (2.5-4.0) gm/dl Albumin/Globulin Ratio (0.9-2) TSH 0.486 (0.300-4.500) uIu/ml Urine Color Urine Appearance (Clear) Urine pH (4.5-7.5) Ur Specific [place] (1.000-1.030) Urine Protein (Negative) Urine Glucose (UA) (Negative) Urine Ketones (Negative) Urine Blood (Negative) Urine Nitrite (Negative) Urine Bilirubin (Negative) Urine Urobilinogen (Negative) Ur Leukocyte Esterase (Negative) Urine RBC (0-4) /hpf Urine WBC (0-5) /hpf Ur Epithelial Cells (0-5) /lpf Triple Phos Crystals (None Prsent) Urine Bacteria (Negative) Urine Mucus (None Prsent) SARS-CoV-2, RNA, NAAT (NEGATIVE) Bld Cult ID Panel PCR (NotDetected) 02/06/22 02/06/22 02/06/22 Range/Units 23:23 19:23 17:42 WBC (4.8-10.8) K/ul RBC (3.93-5.22) M/uL Hgb (12.0-16.0) g/dl Hct (34.1-44.9) % MCV (80.0-100.0) fL MCH (25.0-34.0) pg MCHC (32.0-36.0) g/dL RDW Std Deviation (36.4-46.3) fL RDW Coeff of Neftaly (11.5-14.5) % Plt Count (130-400) K/uL MPV (9.4-12.3) fL Immature Gran % (Auto) % Neut % (Auto) % Lymph % (Auto) % [place] % (Auto) % Eos % (Auto) % Baso % (Auto) % Neut # (Auto) (1.4-6.5) K/uL Lymph # (Auto) (1.2-3.4) K/uL [place] # (Auto) (0.24-0.82) K/uL Eos # (Auto) (0-0.50) K/uL Baso # (Auto) (0-0.2) K/uL Immature Gran # (Auto) (0.00-0.02) K/uL Echinocytes PT > 90.0 H Cancelled INR > 9.6 H* Cancelled APTT 97.6 H* Cancelled PTT Ratio 3.5 Cancelled Sodium (136-145) mmol/L Potassium Chloride (98-107) mmol/L Carbon Dioxide (21-32) mmol/L Anion Gap (3-11) BUN (6-23) mg/dl Creatinine (0.6-1.2) mg/dl Est Cr Clr Drug Dosing Est GFR ( Amer) ml/min Est GFR (Non-Af Amer) ml/min BUN/Creatinine Ratio (10-20) Glucose (70-99(Fasting)) mg/dl Lactate (0.4-2.0) mmol/L Calcium (8.5-10.1) mg/dl Magnesium (1.7-2.4) mg/dl Total Bilirubin (0.2-1.0) mg/dl Direct Bilirubin AST ALT (7-52) U/L Alkaline Phosphatase (34-104) U/L Total Creatine Kinase (26-192) U/L Troponin I High Sens 128.1 H* (0-14) pg/ml Total Protein (6.0-8.3) gm/dl Albumin (3.4-5.0) gm/dl Globulin (2.5-4.0) gm/dl Albumin/Globulin Ratio (0.9-2) TSH (0.300-4.500) uIu/ml Urine Color Urine Appearance (Clear) Urine pH (4.5-7.5) Ur Specific [place] (1.000-1.030) Urine Protein (Negative) Urine Glucose (UA) (Negative) Urine Ketones (Negative) Urine Blood (Negative) Urine Nitrite (Negative) Urine Bilirubin (Negative) Urine Urobilinogen (Negative) Ur Leukocyte Esterase (Negative) Urine RBC (0-4) /hpf Urine WBC (0-5) /hpf Ur Epithelial Cells (0-5) /lpf Triple Phos Crystals (None Prsent) Urine Bacteria (Negative) Urine Mucus (None Prsent) SARS-CoV-2, RNA, NAAT (NEGATIVE) Bld Cult ID Panel PCR (NotDetected) 02/06/22 02/06/22 02/06/22 Range/Units 17:30 17:30 17:00 WBC (4.8-10.8) K/ul RBC (3.93-5.22) M/uL Hgb (12.0-16.0) g/dl Hct (34.1-44.9) % MCV (80.0-100.0) fL MCH (25.0-34.0) pg MCHC (32.0-36.0) g/dL RDW Std Deviation (36.4-46.3) fL RDW Coeff of Neftaly (11.5-14.5) % Plt Count (130-400) K/uL MPV (9.4-12.3) fL Immature Gran % (Auto) % Neut % (Auto) % Lymph % (Auto) % [place] % (Auto) % Eos % (Auto) % Baso % (Auto) % Neut # (Auto) (1.4-6.5) K/uL Lymph # (Auto) (1.2-3.4) K/uL [place] # (Auto) (0.24-0.82) K/uL Eos # (Auto) (0-0.50) K/uL Baso # (Auto) (0-0.2) K/uL Immature Gran # (Auto) (0.00-0.02) K/uL Echinocytes PT INR APTT PTT Ratio Sodium (136-145) mmol/L Potassium 2.8 L Chloride (98-107) mmol/L Carbon Dioxide (21-32) mmol/L Anion Gap (3-11) BUN (6-23) mg/dl Creatinine (0.6-1.2) mg/dl Est Cr Clr Drug Dosing Est GFR ( Amer) ml/min Est GFR (Non-Af Amer) ml/min BUN/Creatinine Ratio (10-20) Glucose (70-99(Fasting)) mg/dl Lactate (0.4-2.0) mmol/L Calcium (8.5-10.1) mg/dl Magnesium 1.8 (1.7-2.4) mg/dl Total Bilirubin (0.2-1.0) mg/dl Direct Bilirubin AST 79 H ALT (7-52) U/L Alkaline Phosphatase (34-104) U/L Total Creatine Kinase (26-192) U/L Troponin I High Sens (0-14) pg/ml Total Protein (6.0-8.3) gm/dl Albumin (3.4-5.0) gm/dl Globulin (2.5-4.0) gm/dl Albumin/Globulin Ratio (0.9-2) TSH (0.300-4.500) uIu/ml Urine Color Dark Yellow Urine Appearance Turbid A (Clear) Urine pH >= 9.0 H (4.5-7.5) Ur Specific [place] 1.010 (1.000-1.030) Urine Protein 2+ H (Negative) Urine Glucose (UA) Negative (Negative) Urine Ketones Trace H (Negative) Urine Blood 3+ H (Negative) Urine Nitrite Positive A (Negative) Urine Bilirubin 1+ H (Negative) Urine Urobilinogen Negative (Negative) Ur Leukocyte Esterase 3+ H (Negative) Urine RBC 5-10 H (0-4) /hpf Urine WBC 10-30 H (0-5) /hpf Ur Epithelial Cells 0-5 (0-5) /lpf Triple Phos Crystals Present A (None Prsent) Urine Bacteria 4+ H (Negative) Urine Mucus Present A (None Prsent) SARS-CoV-2, RNA, NAAT (NEGATIVE) Bld Cult ID Panel PCR (NotDetected) 02/06/22 02/06/22 02/06/22 Range/Units 16:36 16:36 16:36 WBC (4.8-10.8) K/ul RBC (3.93-5.22) M/uL Hgb (12.0-16.0) g/dl Hct (34.1-44.9) % MCV (80.0-100.0) fL MCH (25.0-34.0) pg MCHC (32.0-36.0) g/dL RDW Std Deviation (36.4-46.3) fL RDW Coeff of Neftaly (11.5-14.5) % Plt Count (130-400) K/uL MPV (9.4-12.3) fL Immature Gran % (Auto) % Neut % (Auto) % Lymph % (Auto) % [place] % (Auto) % Eos % (Auto) % Baso % (Auto) % Neut # (Auto) (1.4-6.5) K/uL Lymph # (Auto) (1.2-3.4) K/uL [place] # (Auto) (0.24-0.82) K/uL Eos # (Auto) (0-0.50) K/uL Baso # (Auto) (0-0.2) K/uL Immature Gran # (Auto) (0.00-0.02) K/uL Echinocytes PT Cancelled INR Cancelled APTT Cancelled PTT Ratio Cancelled Sodium 142 (136-145) mmol/L Potassium TNP Chloride 109 H (98-107) mmol/L Carbon Dioxide 21 (21-32) mmol/L Anion Gap 12 H (3-11) BUN 60 H (6-23) mg/dl Creatinine 1.51 H (0.6-1.2) mg/dl Est Cr Clr Drug Dosing Not Reportable Est GFR ( Amer) 39.9 ml/min Est GFR (Non-Af Amer) 34.4 ml/min BUN/Creatinine Ratio 39.7 H (10-20) Glucose 130 H (70-99(Fasting)) mg/dl Lactate (0.4-2.0) mmol/L Calcium 8.6 (8.5-10.1) mg/dl Magnesium (1.7-2.4) mg/dl Total Bilirubin 1.5 H (0.2-1.0) mg/dl Direct Bilirubin AST TNP ALT 5 L (7-52) U/L Alkaline Phosphatase 70 (34-104) U/L Total Creatine Kinase 1703 H (26-192) U/L Troponin I High Sens (0-14) pg/ml Total Protein 5.4 L (6.0-8.3) gm/dl Albumin 3.0 L (3.4-5.0) gm/dl Globulin 2.4 L (2.5-4.0) gm/dl Albumin/Globulin Ratio 1.3 (0.9-2) TSH (0.300-4.500) uIu/ml Urine Color Urine Appearance (Clear) Urine pH (4.5-7.5) Ur Specific [place] (1.000-1.030) Urine Protein (Negative) Urine Glucose (UA) (Negative) Urine Ketones (Negative) Urine Blood (Negative) Urine Nitrite (Negative) Urine Bilirubin (Negative) Urine Urobilinogen (Negative) Ur Leukocyte Esterase (Negative) Urine RBC (0-4) /hpf Urine WBC (0-5) /hpf Ur Epithelial Cells (0-5) /lpf Triple Phos Crystals (None Prsent) Urine Bacteria (Negative) Urine Mucus (None Prsent) SARS-CoV-2, RNA, NAAT (NEGATIVE) Bld Cult ID Panel PCR PCR Panel Negative (NotDetected) 02/06/22 02/06/22 02/06/22 Range/Units 16:36 16:36 15:52 WBC 15.56 H (4.8-10.8) K/ul RBC 3.58 L (3.93-5.22) M/uL Hgb 10.7 L (12.0-16.0) g/dl Hct 32.5 L (34.1-44.9) % MCV 90.8 (80.0-100.0) fL MCH 29.9 (25.0-34.0) pg MCHC 32.9 (32.0-36.0) g/dL RDW Std Deviation 48.6 H (36.4-46.3) fL RDW Coeff of Neftaly 14.5 (11.5-14.5) % Plt Count 221 (130-400) K/uL MPV 10.6 (9.4-12.3) fL Immature Gran % (Auto) 0.4 % Neut % (Auto) 92.4 % Lymph % (Auto) 3.5 % [place] % (Auto) 3.6 % Eos % (Auto) 0.0 % Baso % (Auto) 0.1 % Neut # (Auto) 14.36 H (1.4-6.5) K/uL Lymph # (Auto) 0.55 L (1.2-3.4) K/uL [place] # (Auto) 0.56 (0.24-0.82) K/uL Eos # (Auto) 0.00 (0-0.50) K/uL Baso # (Auto) 0.02 (0-0.2) K/uL Immature Gran # (Auto) 0.07 H (0.00-0.02) K/uL Echinocytes 2+ PT INR APTT PTT Ratio Sodium (136-145) mmol/L Potassium Chloride (98-107) mmol/L Carbon Dioxide (21-32) mmol/L Anion Gap (3-11) BUN (6-23) mg/dl Creatinine (0.6-1.2) mg/dl Est Cr Clr Drug Dosing Est GFR ( Amer) ml/min Est GFR (Non-Af Amer) ml/min BUN/Creatinine Ratio (10-20) Glucose (70-99(Fasting)) mg/dl Lactate 1.5 (0.4-2.0) mmol/L Calcium (8.5-10.1) mg/dl Magnesium (1.7-2.4) mg/dl Total Bilirubin (0.2-1.0) mg/dl Direct Bilirubin AST ALT (7-52) U/L Alkaline Phosphatase (34-104) U/L Total Creatine Kinase (26-192) U/L Troponin I High Sens (0-14) pg/ml Total Protein (6.0-8.3) gm/dl Albumin (3.4-5.0) gm/dl Globulin (2.5-4.0) gm/dl Albumin/Globulin Ratio (0.9-2) TSH (0.300-4.500) uIu/ml Urine Color Urine Appearance (Clear) Urine pH (4.5-7.5) Ur Specific [place] (1.000-1.030) Urine Protein (Negative) Urine Glucose (UA) (Negative) Urine Ketones (Negative) Urine Blood (Negative) Urine Nitrite (Negative) Urine Bilirubin (Negative) Urine Urobilinogen (Negative) Ur Leukocyte Esterase (Negative) Urine RBC (0-4) /hpf Urine WBC (0-5) /hpf Ur Epithelial Cells (0-5) /lpf Triple Phos Crystals (None Prsent) Urine Bacteria (Negative) Urine Mucus (None Prsent) SARS-CoV-2, RNA, NAAT NEGATIVE (NEGATIVE) Bld Cult ID Panel PCR (NotDetected) Medications Administered Current Inpatient Medications Acetaminophen (Acetaminophen 325 Mg Tab) 650 mg PO Q4H PRN PRN Reason: Pain or Fever Stop: 03/08/22 22:57 Albuterol (Albuterol Hfa 8 Gm Inhaler) 2 puffs INH Q6 PRN PRN Reason: Shortness Of Breath Or Wheezing Stop: 03/08/22 22:57 Albuterol (Albut/Ipratrop 3mg/0.5mg Neb 3 Ml Vial) 3 ml INH QIDR ASHUTOSH; Protocol Stop: 03/08/22 22:57 Last Admin: 02/07/22 06:56 Dose: 3 ml Atorvastatin Calcium (Atorvastatin 20 Mg Tab) 20 mg PO QAM A[facility]UTOS[facility] Stop: 03/09/22 08:59 Carbidopa/Levodopa (Carbidopa/Levodopa 25/100mg Tab) 1 tab PO QID A[facility]UTOS[facility] Stop: 03/08/22 22:57 Last Admin: 02/07/22 00:47 Dose: 1 tab Docusate Sodium (Docusate Sodium Syrup 100 Mg/10 Ml Udc) 50 mg PO BID PRN PRN Reason: Constipation Fluticasone Propionate (Fluticasone Propionate Na Spr 16 Gm Btl) 2 sprays NA DAILY [facility] Stop: 03/09/22 08:59 Fluticasone/Vilanterol (Fluticasone/Vilanterol 100/25mcg 14 Puffs/Inhaler) 1 puffs INH DAILY [facility] Stop: 03/09/22 08:59 Hydroxyzine HCl (Hydroxyzine Hcl 25 Mg Tab) 25 mg PO Q6 PRN PRN Reason: .ANX/ITCH Stop: 03/08/22 22:57 Sodium Chloride (Nss 1000ml) 1,000 mls @ 125 mls/hr IV .Q8H A[facility]UTOS[facility] Stop: 03/08/22 22:57 Last Admin: 02/07/22 03:50 Dose: 125 mls/hr Piperacillin Sod/Tazobactam (Sod 3.375 gm/ Dextrose) 115 mls @ 28.75 mls/hr IV Q8H ASHUTOSH; Protocol Stop: 02/17/22 03:59 Last Admin: 02/07/22 05:02 Dose: 28.8 mls/hr Lactobacillus Acidophilus (Advanced Probiotic 1250 Mg Capsule) 2 cap PO DAILY [facility] Stop: 03/09/22 08:59 Levothyroxine Sodium (Levothyroxine Sodium 50 Mcg Tablet) 50 mcg PO DAILYBB [facility] Stop: 03/09/22 06:29 Linaclotide (Linaclotide 145 Mcg Capsule) 290 mcg PO DAILY [facility] Stop: 03/09/22 08:59 Meclizine HCl (Meclizine Hcl 25 Mg Tab) 25 mg PO TID PRN PRN Reason: DIZZY Stop: 03/08/22 22:57 Metaxalone (Metaxalone 800 Mg Tablet) 800 mg PO QID A[facility]UTOS[facility] Stop: 03/08/22 22:57 Last Admin: 02/07/22 00:47 Dose: 800 mg Miscellaneous (Cromolyn 4%: Order Awaiting Action) 1 each N/A QS A[facility]OS[facility] Stop: 03/09/22 07:59 Montelukast Sodium (Montelukast Sodium 10 Mg Tablet) 10 mg PO HS A[facility]UTOS[facility] Stop: 03/08/22 22:57 Last Admin: 02/07/22 00:47 Dose: 10 mg Multivitamins/Minerals (Cerovite Adv Formula Tab) 1 tab PO DAILY [facility] Stop: 03/09/22 08:59 Nitroglycerin (Nitroglycerin Sl 0.4 Mg/Tab Tab) 0.4 mg SL UD PRN PRN Reason: Chest Pain Stop: 03/08/22 22:57 Non-Formulary Medication (Buprenorphine) 1 patch TOP WK A[facility]OS[facility] Stop: 03/08/22 22:57 Ondansetron HCl (Ondansetron 4 Mg Od Tab) 4 mg PO Q12 PRN PRN Reason: Nausea Stop: 03/08/22 22:57 Pantoprazole Sodium (Pantoprazole 40 Mg Tab) 40 mg PO DAILY [facility] Stop: 03/09/22 08:59 Ropinirole HCl (Ropinirole Hcl 1 Mg Tablet) 2 mg PO HS A[facility]OS[facility] Stop: 03/08/22 22:57 Last Admin: 02/07/22 00:47 Dose: 2 mg Ropinirole HCl (Ropinirole Hcl 1 Mg Tablet) 1 mg PO TIDM A[facility]UTOSH Stop: 03/09/22 07:59 Senna/Docusate Sodium (Docusate Sodium/Senna 50/8.6mg Tab) 1 tab PO BID [facility] Stop: 03/08/22 22:57 Last Admin: 02/07/22 03:49 Dose: Not Given Triamcinolone Acetonide (Triamcinolone Acet 0.1% Cr 15 Gm Tube) 1 appln TOP BID PRN PRN Reason: FLARE UP Stop: 03/08/22 22:57 (1) Rhabdomyolysis Encounter type: initial encounter (2) Fall Encounter type: initial encounter Qualified Code(s): W19.XXXA - Unspecified fall, initial encounter
[2022-02-07] MEDS ORDERED: VANCOMYCIN CONSULT ACTIVE PRN (07:54)
[2022-02-07 07:55] LABS: Basophils # (auto) 0.02 K/uL (0-0.2); Basophils % (auto) 0.2 %; Echinocytes 1+; Immature Granulocytes # (auto) 0.07 K/uL (0.00-0.02); Immature Granulocytes % (auto) 0.7 %; Lymphocytes # (auto) 0.42 K/uL (1.2-3.4); Lymphocytes % (auto) 3.9 %; Monocytes # (auto) 0.53 K/uL (0.24-0.82); Monocytes % (auto) 4.9 %; Neutrophils # (auto) 9.68 K/uL (1.4-6.5); Neutrophils % (auto) 90.3 %
[2022-02-07 08:02] LABS: Albumin Level 2.6 gm/dl (3.4-5.0); BUN Creatinine Ratio 43.1 (10-20); Bilirubin Direct 0.3 mg/dl (0-0.2); Bilirubin,Total 1.1 mg/dl (0.2-1.0); Calcium 8.2 mg/dl (8.5-10.1); Creatinine Clr Calc Pharmacy 40.8 ml/min; Est GFR (African American) 51.1 ml/min; Est GFR (Non-African American) 44.1 ml/min; Magnesium 1.8 mg/dl (1.7-2.4); Potassium 3.1 mmol/L (3.5-5.1); Total Protein 4.8 gm/dl (6.0-8.3)
[2022-02-07 08:11] LABS: Troponin I High Sensitivity 100.5 pg/ml (0-14)
[2022-02-07] MEDS ORDERED: ALBUT/IPRATROP 3MG/0.5MG NEB 3 ML VIAL INH PRN (08:11)
[2022-02-07] MEDS: LEVOTHYROXINE SODIUM 50 MCG TABLET PO SCH (08:17)
[2022-02-07] MEDS: ADVANCED PROBIOTIC 1250 MG CAPSULE PO SCH (08:18)
[2022-02-07] MEDS: FLUTICASONE/VILANTEROL 100/25MCG 14 PUFFS/INHALER INH SCH (08:18)
[2022-02-07] MEDS: ATORVASTATIN 20 MG TAB PO SCH (08:18)
[2022-02-07] MEDS: FLUTICASONE PROPIONATE NA SPR 16 GM BTL SCH (08:18)
[2022-02-07] MEDS: LINACLOTIDE 145 MCG CAPSULE PO SCH (08:18)
[2022-02-07] MEDS: PANTOprazole 40 MG TAB PO SCH (08:19)
[2022-02-07] MEDS: CEROVITE ADV FORMULA TAB PO SCH (08:19)
[2022-02-07] MEDS ORDERED: VANCOMYCIN HCL 1,750 MG in SODIUM CHLORIDE 0.9% 500 ML IV ONE (09:00)
--- NOTE | 2022-02-07 10:20 | Electrocardiogram Report ---
Test Reason : Blood Pressure : / mmHG Vent. Rate : 098 BPM Atrial Rate : 098 BPM P-R Int : 164 ms QRS Dur : 108 ms QT Int : 354 ms P-R-T Axes : 053 -13 180 degrees QTc Int : 451 ms Poor data quality, interpretation may be adversely affected Normal sinus rhythm Possible Left atrial enlargement Incomplete right bundle branch block Abnormal ECG When compared with ECG of 09-JAN-2022 20:14, Nonspecific T wave abnormality now evident in Inferior leads T wave inversion more evident in Anterolateral leads Confirmed by Aman Sullivan ([id number]) on 02/07/2022 10:19:39 AM Referred By: REFERRED SELF Confirmed By:Nicanor Sullivan
--- NOTE | 2022-02-07 11:41 | Pharmacy Report ---
Pharmacy Vanc AUC Short Note - Date of Service February 07, 2022 - Assessment & Plan Assessment 71 year old F receiving VANCOMYCIN for treatment of bacteremia vs contaminant. Patient was admitted for fall and UTI. She is currently receiving Zosyn. 1 BLCX drawn today is growing gram positive RODS in the anaerobic bottle. Only one set of cultures was drawn. Blood BioFire was performed on this cx and was negative for Listeria. Biofire does not detect cutibacterium or corynebacterium which are common contaminants. Urine cx is growing Proteus sp. Of note JAEL present on initial labs (baseline SCr ~0.7) Plan Vancomycin * 1750mg IV x 1 given in ED * AUC/KO is the preferred PK/PD target for vancomycin * AUC guided dosing is effective and associated with decreased risk of nephrotoxicity compared to traditional trough targets * Maint dose: 1250mg IV Q 24 hrs is predicted to achieve target AUC/KO of 400- 600 mg/L.hr and may be associated with a 11 % risk of nephrotoxicity * Will begin maint dose this evening ~2200 when level predicted to be 10-20 * Trough level will be ordered if therapy to continue beyond 48 hrs Pharmacy will continue to follow and will adjust dose/frequency as necessary. Thank you.
[2022-02-07] MEDS: CHECK BUPRENORPHINE PATCH SCH (16:00)
[2022-02-07 19:52] LABS: INR 1.4 (0.9-1.1); Prothrombin Time 14.6 Seconds (9.0-12.0)
[2022-02-07] MEDS ORDERED: VANCOMYCIN HCL 1,250 MG in SODIUM CHLORIDE 0.9% 250 ML IV SCH (22:00)
[2022-02-08] MEDS: CHECK BUPRENORPHINE PATCH SCH ×3 (00:16→17:01)
[2022-02-08] MEDS: PIPERACILLIN/TAZOBACTAM 3.375 GM in DEXTROSE 5% 100 ML IV SCH ×3 (04:29→20:09)
[2022-02-08] MEDS: LEVOTHYROXINE SODIUM 50 MCG TABLET PO SCH (06:26)
[2022-02-08 06:46] LABS: Hemoglobin 8.5 g/dl (12.0-16.0); Mean Corpuscular Hemoglobin 29.3 pg (25.0-34.0); Mean Corpuscular Hgb Conc 31.5 g/dL (32.0-36.0); Mean Corpuscular Volume 93.1 fL (80.0-100.0); Nucleated RBC # (auto) 0.02 K/uL (0-0); Nucleated RBC % (auto) 0.2 %; Platelet Count 188 K/uL (130-400); RDW Standard Deviation 50.9 fL (36.4-46.3); White Blood Count 8.73 K/ul (4.8-10.8)
[2022-02-08 07:04] LABS: INR 1.2 (0.9-1.1); Prothrombin Time 12.4 Seconds (9.0-12.0)
[2022-02-08 07:58] LABS: Calcium 8.2 mg/dl (8.5-10.1); Creatinine Clr Calc Pharmacy 61.2 ml/min; Est GFR (Non-African American) 74.2 ml/min; Magnesium 1.7 mg/dl (1.7-2.4); Phosphorus 1.9 mg/dl (2.5-4.9); Potassium 3.4 mmol/L (3.5-5.1)
[2022-02-08] MEDS: ADVANCED PROBIOTIC 1250 MG CAPSULE PO SCH (07:59)
[2022-02-08] MEDS: rOPINIRole HCL 1 MG TABLET PO SCH ×4 (07:59→20:37)
[2022-02-08] MEDS: DOCUSATE SODIUM/SENNA 50/8.6MG TAB PO SCH ×2 (07:59→20:37)
[2022-02-08] MEDS: CARBIDOPA/LEVODOPA 25/100MG TAB PO SCH ×4 (07:59→20:37)
[2022-02-08] MEDS: ATORVASTATIN 20 MG TAB PO SCH (07:59)
[2022-02-08] MEDS: METAXALONE 800 MG TABLET PO SCH ×4 (07:59→20:37)
[2022-02-08] MEDS: PANTOprazole 40 MG TAB PO SCH (08:00)
[2022-02-08] MEDS: CEROVITE ADV FORMULA TAB PO SCH (08:00)
[2022-02-08] MEDS: LINACLOTIDE 145 MCG CAPSULE PO SCH (08:00)
[2022-02-08] MEDS: FLUTICASONE PROPIONATE NA SPR 16 GM BTL SCH (08:01)
[2022-02-08] MEDS: FLUTICASONE/VILANTEROL 100/25MCG 14 PUFFS/INHALER INH SCH (08:01)
[2022-02-08] MEDS ORDERED: LORazepam 0.5 MG TAB PO STA (09:52)
[2022-02-08] MEDS: SODIUM CHLORIDE 0.9% 1000ML 1,000 ML IV SCH (11:18)
[2022-02-08] MEDS ORDERED: POTASSIUM CHLORIDE PWD 20 MEQ PACK PO ONE (12:40)
[2022-02-08] MEDS ORDERED: BUPRENORPHINE TD SCH (14:00)
[2022-02-08] MEDS ORDERED: TDSY TD SCH (14:00)
[2022-02-08] MEDS: VANCOMYCIN HCL 1,250 MG in SODIUM CHLORIDE 0.9% 250 ML IV SCH (15:45)
[2022-02-08] MEDS: MONTELUKAST SODIUM 10 MG TABLET PO SCH (20:37)
[2022-02-09] MEDS: CHECK BUPRENORPHINE PATCH SCH ×3 (00:09→17:02)
[2022-02-09] MEDS: PIPERACILLIN/TAZOBACTAM 3.375 GM in DEXTROSE 5% 100 ML IV SCH ×3 (03:26→21:28)
[2022-02-09 06:17] LABS: Hematocrit (blood only) 27.8 % (34.1-44.9); Hemoglobin 8.7 g/dl (12.0-16.0); Mean Corpuscular Hgb Conc 31.3 g/dL (32.0-36.0); Mean Corpuscular Volume 92.7 fL (80.0-100.0); Mean Platelet Volume 9.7 fL (9.4-12.3); Nucleated RBC # (auto) 0.05 K/uL (0-0); Nucleated RBC % (auto) 0.7 %; Platelet Count 199 K/uL (130-400); RDW Coefficient of Variation 15.3 % (11.5-14.5); RDW Standard Deviation 51.4 fL (36.4-46.3); White Blood Count 7.44 K/ul (4.8-10.8)
[2022-02-09 06:24] LABS: INR 1.1 (0.9-1.1); Prothrombin Time 11.4 Seconds (9.0-12.0)
[2022-02-09] MEDS: LEVOTHYROXINE SODIUM 50 MCG TABLET PO SCH (06:27)
[2022-02-09 06:43] LABS: BUN Creatinine Ratio 37.3 (10-20); Calcium 8.6 mg/dl (8.5-10.1); Creatinine Clr Calc Pharmacy 65.6 ml/min; Est GFR (African American) 92.9 ml/min; Est GFR (Non-African American) 80.2 ml/min; Potassium 3.4 mmol/L (3.5-5.1)
[2022-02-09] MEDS: ADVANCED PROBIOTIC 1250 MG CAPSULE PO SCH (10:02)
[2022-02-09] MEDS: CARBIDOPA/LEVODOPA 25/100MG TAB PO SCH ×4 (10:02→21:17)
[2022-02-09] MEDS: CEROVITE ADV FORMULA TAB PO SCH (10:02)
[2022-02-09] MEDS: PANTOprazole 40 MG TAB PO SCH (10:02)
[2022-02-09] MEDS: METAXALONE 800 MG TABLET PO SCH ×4 (10:02→21:17)
[2022-02-09] MEDS: ATORVASTATIN 20 MG TAB PO SCH (10:02)
[2022-02-09] MEDS: rOPINIRole HCL 1 MG TABLET PO SCH ×4 (10:03→21:17)
[2022-02-09] MEDS: LINACLOTIDE 145 MCG CAPSULE PO SCH (10:03)
[2022-02-09] MEDS: FLUTICASONE/VILANTEROL 100/25MCG 14 PUFFS/INHALER INH SCH (10:05)
[2022-02-09] MEDS: VANCOMYCIN HCL 1,250 MG in SODIUM CHLORIDE 0.9% 250 ML IV SCH (10:05)
[2022-02-09] MEDS: FLUTICASONE PROPIONATE NA SPR 16 GM BTL SCH (10:05)
[2022-02-09] MEDS: DOCUSATE SODIUM/SENNA 50/8.6MG TAB PO SCH ×2 (10:05→22:56)
--- NOTE | 2022-02-09 16:19 | Hospitalist Progress Note ---
Date of Service February 08, 2022 Assessment & Plan (1) Fall: (2) Elevated INR: (3) Rhabdomyolysis: (4) JAEL (acute kidney injury): (5) Acute hypokalemia: (6) Acute UTI: Plan: This is a 71-year-old female who presents with fall. 1. Fall. History of ambulatory dysfunction, ambulates with walker, presents with fall, most likely secondary to urinary tract infection. PT, OT when stable. Monitor in the hospital. 2. Possible sepsis with elevated white count, tachycardia, blood pressure on lower side. UTI Urinalysis positive. ER Empirically started Zosyn, which will be continued. Follow the cultures. IV fluids. Will follow the repeat labs. Bacteremia Blood culture positive for gram-positive bacilli on admission Follow final culture results Repeat blood culture Obtain echo ID consult 3. Hypokalemia. Replace and monitor 4. Acute kidney injury - resolved Baseline creatinine of 0.9, On admission creatinine of 1.5. Received fluids. Avoid nephrotoxic agents. Holding diuretics. Current Cr 0.8 5. Elevated CPK, mild rhabdomyolysis. Follow the repeat CPK. getting fluids. Mild elevation in bilirubin. Mild elev. in troponin secondary to rhabdo. CK, trop trended down Echo ordered 6. Chronic diastolic CHF, holding the diuretics. Getting fluids. Monitor for any volume overload. 7. Hypothyroidism. Continue home Synthroid. 8. History of Parkinson. Continue home carbidopa/levodopa. 9. Hyperlipidemia. Continue statin. 10. Chronic pain. Continue home pain medications. 11. Hypertension. As per the [facility], she is on metoprolol 25 mg in the a.m. and 12.5 mg in the p.m. currently. On last admission, metoprolol 12.5 p.m. Will need to clarify. Will hold for now as the patient is hypotensive. 12. Gastroesophageal reflux disease. Continue omeprazole. 13. Restless leg syndrome: Continue ropinirole. 14. History of deep venous thrombosis and pulmonary embolism. On Coumadin. Follow PT/INR. History of hypercoagulability. History of pulmonary embolus and deep venous thrombosis. On Coumadin. INR elevated on admission, and vit. K given. 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 16. History of asthma. Stable. Continue home medications. 17. Chronic anemia. Follow the H and H. 18. History of gastric bypass. 19. History of peripheral vascular disease. 20. History of thoracic aortic aneurysm, needs to follow. DVT prophylaxis. On Coumadin. INR elevated on admission, vit. K given, follow INR DISPOSITION: Closely monitor in the tele floor.PT/OT prior to discharge. S ocial service to help with discharge planning. full code Admission and Anticipated Discharge Date Admission Date: February 06, 2022 Subjective Patient seen in follow-up of fall, UTI Blood culture positive for gram-positive bacilli on admission Patient is currently lying in bed, in no acute distress Denies fevers, chills, chest pain, shortness of breath Denies abdominal pain, nausea or vomiting She feels weak Per senior staff consultant, patient needs a lot of assistance with ambulation Review of Systems Review of Systems: All systems reviewed & are unremarkable except as noted in Subjective Physical Exam Physical Exam: GENERAL: obese F not in acute distress. HEENT: NC/AT. EOMI, Pupils equal, round and reactive to light. Oral mucosa dry. NECK: No JVD, no neck masses. CARDIOVASCULAR: S1 and S2 heard. Regular rate and rhythm. No murmur, no gallop. RESPIRATORY: Normal AP diameter. No accessory muscle use. No wheezing, no crackles. ABDOMEN: Soft, bowel sounds present, nontender, no distention. NEURO: Alert and oriented. No facial droop. Obeys simple commands. Insight is good. Speaks in low volumes. Moves extremities. EXTREMITIES: trace bilateral lower extremity edema present with some erythematous changes in the left lower extremity. Results & Data Results & Data ([facility]) Vital Signs (Past 12 Hours) (1) Fall Encounter type: initial encounter Qualified Code(s): W19.XXXA - Unspecified fall, initial encounter (2) Rhabdomyolysis Encounter type: initial encounter
[2022-02-09] MEDS: MONTELUKAST SODIUM 10 MG TABLET PO SCH (21:17)
[2022-02-09] MEDS: MECLIZINE HCL 25 MG TAB PO PRN (22:46)
[2022-02-09] MEDS: DOCUSATE SODIUM SYRUP 100 MG/10 ML UDC PO PRN (22:47)
[2022-02-10] MEDS: CHECK BUPRENORPHINE PATCH SCH ×3 (00:05→17:04)
[2022-02-10] MEDS ORDERED: VANCOMYCIN LEVEL ONE (03:30)
[2022-02-10] MEDS: PIPERACILLIN/TAZOBACTAM 3.375 GM in DEXTROSE 5% 100 ML IV SCH ×3 (04:13→19:36)
[2022-02-10] MEDS: LEVOTHYROXINE SODIUM 50 MCG TABLET PO SCH (05:47)
[2022-02-10 07:53] LABS: Hematocrit (blood only) 26.7 % (34.1-44.9); Hemoglobin 8.3 g/dl (12.0-16.0); Mean Corpuscular Hemoglobin 29.2 pg (25.0-34.0); Mean Corpuscular Hgb Conc 31.1 g/dL (32.0-36.0); Mean Platelet Volume 10.1 fL (9.4-12.3); Nucleated RBC # (auto) 0.05 K/uL (0-0); Nucleated RBC % (auto) 0.7 %; Platelet Count 195 K/uL (130-400); RDW Coefficient of Variation 15.2 % (11.5-14.5); RDW Standard Deviation 52.2 fL (36.4-46.3); Red Blood Count 2.84 M/uL (3.93-5.22); White Blood Count 7.46 K/ul (4.8-10.8)
[2022-02-10 08:02] LABS: INR 1.2 (0.9-1.1); Prothrombin Time 12.4 Seconds (9.0-12.0)
[2022-02-10 08:18] LABS: BUN Creatinine Ratio 30.6 (10-20); Calcium 8.3 mg/dl (8.5-10.1); Creatinine Clr Calc Pharmacy 68.7 ml/min; Est GFR (African American) 97.7 ml/min; Est GFR (Non-African American) 84.3 ml/min; Potassium 3.5 mmol/L (3.5-5.1)
[2022-02-10] MEDS: CARBIDOPA/LEVODOPA 25/100MG TAB PO SCH ×4 (09:13→21:43)
[2022-02-10] MEDS: rOPINIRole HCL 1 MG TABLET PO SCH ×4 (09:13→21:44)
[2022-02-10] MEDS: METAXALONE 800 MG TABLET PO SCH ×4 (09:13→21:44)
[2022-02-10] MEDS: ADVANCED PROBIOTIC 1250 MG CAPSULE PO SCH (09:14)
[2022-02-10] MEDS: LINACLOTIDE 145 MCG CAPSULE PO SCH (09:14)
[2022-02-10] MEDS: MECLIZINE HCL 25 MG TAB PO PRN (09:14)
[2022-02-10] MEDS: PANTOprazole 40 MG TAB PO SCH (09:14)
[2022-02-10] MEDS: DOCUSATE SODIUM SYRUP 100 MG/10 ML UDC PO PRN (09:14)
[2022-02-10] MEDS: ATORVASTATIN 20 MG TAB PO SCH (09:14)
[2022-02-10] MEDS: CEROVITE ADV FORMULA TAB PO SCH (09:14)
[2022-02-10] MEDS: FLUTICASONE/VILANTEROL 100/25MCG 14 PUFFS/INHALER INH SCH (09:15)
[2022-02-10] MEDS: FLUTICASONE PROPIONATE NA SPR 16 GM BTL SCH (09:15)
[2022-02-10] MEDS: DOCUSATE SODIUM/SENNA 50/8.6MG TAB PO SCH ×2 (09:15→21:46)
[2022-02-10] MEDS: Patient's HEIGHT &/or WEIGHT Needed SCH (09:22)
--- NOTE | 2022-02-10 09:30 | Hospitalist Progress Note ---
Date of Service February 09, 2022 Assessment & Plan (1) Fall: (2) Elevated INR: (3) Rhabdomyolysis: (4) JAEL (acute kidney injury): (5) Acute hypokalemia: (6) Acute UTI: Plan: This is a 71-year-old female who presents with fall. 1. Fall. History of ambulatory dysfunction, ambulates with walker, presents with fall, most likely secondary to urinary tract infection. PT, OT when stable. Monitor in the hospital. 2. Possible sepsis with elevated white count, tachycardia, blood pressure on lower side. UTI Urinalysis positive. Urine culture positive for Proteus Mirabilis - pansensitive ER Empirically started Zosyn, continued Bacteremia Blood culture (02/06) positive for gram-positive bacilli on admission Repeat blood culture (02/07) NGTD Follow final culture results Obtained echo There is no evidence of mass or vegetation. This does not rule out endocarditis. There is mild concentric LVH. EF 60 to 65%. RV systolic function is normal. LA size is normal. RA size is normal. Mild aortic regurg. ID consult placed 3. Hypokalemia. Replace and monitor 4. Acute kidney injury - resolved Baseline creatinine of 0.9, On admission creatinine of 1.5. Received fluids. Avoid nephrotoxic agents. Holding diuretics. Current Cr 0.8 5. Elevated CPK, mild rhabdomyolysis. Follow the repeat CPK. getting fluids. Mild elevation in bilirubin. Mild elev. in troponin secondary to rhabdo. CK, trop trended down Echo obtained, as above 6. Chronic diastolic CHF, holding the diuretics. Getting fluids. Monitor for any volume overload. 7. Hypothyroidism. Continue home Synthroid. 8. History of Parkinson. Continue home carbidopa/levodopa. 9. Hyperlipidemia. Continue statin. 10. Chronic pain. Continue home pain medications. 11. Hypertension. As per the Epic, she is on metoprolol 25 mg in the a.m. and 12.5 mg in the p.m. currently. On last admission, metoprolol 12.5 p.m. Will need to clarify. Will hold for now as the patient is hypotensive. 12. Gastroesophageal reflux disease. Continue omeprazole. 13. Restless leg syndrome: Continue ropinirole. 14. History of deep venous thrombosis and pulmonary embolism. On Coumadin. Follow PT/INR. History of hypercoagulability. History of pulmonary embolus and deep venous th rombosis. On Coumadin. INR elevated on admission, and vit. K given. 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 16. History of asthma. Stable. Continue home medications. 17. Chronic anemia. Follow the H and H. 18. History of gastric bypass. 19. History of peripheral vascular disease. 20. History of thoracic aortic aneurysm, needs to follow. DVT prophylaxis. On Coumadin. INR elevated on admission, vit. K given, follow INR DISPOSITION:tele floor. Plan to DC [facility] when medically stable full code Admission and Anticipated Discharge Date Admission Date: February 06, 2022 Subjective Patient seen in follow-up of fall, UTI Blood culture positive for gram-positive bacilli on admission Patient is currently lying in bed, in no acute distress Denies fevers, chills, chest pain, shortness of breath Denies abdominal pain, nausea or vomiting She feels weak Per waitstaff captain, patient needs a lot of assistance with ambulation Review of Systems Review of Systems: All systems reviewed & are unremarkable except as noted in Subjective Physical Exam Physical Exam: GENERAL: obese F not in acute distress. HEENT: NC/AT. EOMI, Pupils equal, round and reactive to light. Oral mucosa dry. NECK: No JVD, no neck masses. CARDIOVASCULAR: S1 and S2 heard. Regular rate and rhythm. No murmur, no gallop. RESPIRATORY: Normal AP diameter. No accessory muscle use. No wheezing, no crackles. ABDOMEN: Soft, bowel sounds present, nontender, no distention. NEURO: Alert and oriented. No facial droop. Obeys simple commands. Insight is good. Speaks in low volumes. Moves extremities. EXTREMITIES: trace bilateral lower extremity edema present with some erythematous changes in the left lower extremity. Results & Data Results & Data ([facility]) Vital Signs (Past 12 Hours) Vital Signs Temp Pulse Pulse Resp BP BP Pulse Ox 02/09/22 22:20 88 02/09/22 23:46 36.5 C 103 H 20 90/60 L 98 O2 Del Method 02/09/22 22:20 02/09/22 23:46 Room Air Medications Administered Current Inpatient Medications Acetaminophen (Acetaminophen 325 Mg Tab) 650 mg PO Q4H PRN PRN Reason: Pain or Fever Stop: 03/08/22 22:57 Albuterol (Albuterol Hfa 8 Gm Inhaler) 2 puffs INH Q6 PRN PRN Reason: Shortness Of Breath Or Wheezing Stop: 03/08/22 22:57 Albuterol (Albut/Ipratrop 3mg/0.5mg Neb 3 Ml Vial) 3 ml INH QIDR PRN; Protocol PRN Reason: Wheezing Stop: 03/08/22 22:57 Atorvastatin Calcium (Atorvastatin 20 Mg Tab) 20 mg PO QAM [facility] Stop: 03/09/22 08:59 Last Admin: 02/10/22 09:14 Dose: 20 mg Buprenorphine HCl (Buprenorphine 15 Mcg/Patch Tdsy) 15 mcg TD Q7D@0900 [facility] Stop: 03/10/22 13:59 Last Admin: 02/08/22 14:38 Dose: 15 mcg Carbidopa/Levodopa (Carbidopa/Levodopa 25/100mg Tab) 1 tab PO QID [facility] Stop: 03/08/22 22:57 Last Admin: 02/10/22 09:13 Dose: 1 tab Docusate Sodium (Docusate Sodium Syrup 100 Mg/10 Ml Udc) 50 mg PO BID PRN PRN Reason: Constipation Last Admin: 02/10/22 09:14 Dose: 50 mg Fluticasone Propionate (Fluticasone Propionate Na Spr 16 Gm Btl) 2 sprays NA DAILY [facility] Stop: 03/09/22 08:59 Last Admin: 02/10/22 09:15 Dose: 2 sprays Fluticasone/Vilanterol (Fluticasone/Vilanterol 100/25mcg 14 Puffs/Inhaler) 1 puffs INH DAILY [facility] Stop: 03/09/22 08:59 Last Admin: 02/10/22 09:15 Dose: 1 puffs Heparin Sodium (Porcine) (Heparin Sod 5,000 Unit/0.5 Ml Vial) 5,000 units SQ Q12 [facility] Stop: 03/12/22 09:14 Hydroxyzine HCl (Hydroxyzine Hcl 25 Mg Tab) 25 mg PO Q6 PRN PRN Reason: .ANX/ITCH Stop: 03/08/22 22:57 Piperacillin Sod/Tazobactam (Sod 3.375 gm/ Dextrose) 115 mls @ 28.75 mls/hr IV Q8H [facility]; Protocol Stop: 02/17/22 03:59 Last Infusion: 02/10/22 08:59 Dose: Infused Lactobacillus Acidophilus (Advanced Probiotic 1250 Mg Capsule) 2 cap PO DAILY [facility] Stop: 03/09/22 08:59 Last Admin: 02/10/22 09:14 Dose: 2 cap Levothyroxine Sodium (Levothyroxine Sodium 50 Mcg Tablet) 50 mcg PO DAILYBB [facility] Stop: 03/09/22 06:29 Last Admin: 02/10/22 05:47 Dose: 50 mcg Linaclotide (Linaclotide 145 Mcg Capsule) 290 mcg PO DAILY [facility] Stop: 03/09/22 08:59 Last Admin: 02/10/22 09:14 Dose: 290 mcg Meclizine HCl (Meclizine Hcl 25 Mg Tab) 25 mg PO TID PRN PRN Reason: DIZZY Stop: 03/08/22 22:57 Last Admin: 02/10/22 09:14 Dose: 25 mg Metaxalone (Metaxalone 800 Mg Tablet) 800 mg PO QID [facility] Stop: 03/08/22 22:57 Last Admin: 02/10/22 09:13 Dose: 800 mg Miscellaneous (Cromolyn 4%: Order Awaiting Action) 1 each N/A QS [facility] Stop: 03/09/22 07:59 Last Admin: 02/10/22 09:05 Dose: Not Given Miscellaneous (Check Buprenorphine Patch) 1 each N/A QS [facility] Stop: 03/09/22 15:59 Last Admin: 02/10/22 08:00 Dose: 1 each Miscellaneous (Remove & Waste Butrans Patch 1 Ea Ea) 1 each N/A Q7D@0859 [facility] Stop: 03/10/22 13:58 Last Admin: 02/08/22 14:38 Dose: 1 each Montelukast Sodium (Montelukast Sodium 10 Mg Tablet) 10 mg PO HS [facility] Stop: 03/08/22 22:57 Last Admin: 02/09/22 21:17 Dose: 10 mg Multivitamins/Minerals (Cerovite Adv Formula Tab) 1 tab PO DAILY [facility] Stop: 03/09/22 08:59 Last Admin: 02/10/22 09:14 Dose: 1 tab Nitroglycerin (Nitroglycerin Sl 0.4 Mg/Tab Tab) 0.4 mg SL UD PRN PRN Reason: Chest Pain Stop: 03/08/22 22:57 Ondansetron HCl (Ondansetron 4 Mg Od Tab) 4 mg PO Q12 PRN PRN Reason: Nausea Stop: 03/08/22 22:57 Pantoprazole Sodium (Pantoprazole 40 Mg Tab) 40 mg PO DAILY [facility] Stop: 03/09/22 08:59 Last Admin: 02/10/22 09:14 Dose: 40 mg Ropinirole HCl (Ropinirole Hcl 1 Mg Tablet) 2 mg PO HS [facility] Stop: 03/08/22 22:57 Last Admin: 02/09/22 21:17 Dose: 2 mg Ropinirole HCl (Ropinirole Hcl 1 Mg Tablet) 1 mg PO TIDM [facility] Stop: 03/09/22 07:59 Last Admin: 02/10/22 09:13 Dose: 1 mg Senna/Docusate Sodium (Docusate Sodium/Senna 50/8.6mg Tab) 1 tab PO BID [facility] Stop: 03/08/22 22:57 Last Admin: 02/10/22 09:15 Dose: 1 tab Triamcinolone Acetonide (Triamcinolone Acet 0.1% Cr 15 Gm Tube) 1 appln TOP BID PRN PRN Reason: FLARE UP Stop: 03/08/22 22:57 Warfarin Sodium (Warfarin Sod 2.5 Mg Tab) 2.5 mg PO DAILY@1600 [facility] Stop: 03/12/22 15:59 Warfarin Sodium (Warfarin Sod 1.25 Mg Tab) 1.25 mg PO Mo@1600 [facility] Stop: 03/14/22 15:59 (1) Fall Encounter type: initial encounter Qualified Code(s): W19.XXXA - Unspecified fall, initial encounter (2) Rhabdomyolysis Encounter type: initial encounter
--- NOTE | 2022-02-10 09:32 | Hospitalist Progress Note ---
Date of Service February 10, 2022 Assessment & Plan (1) Fall: (2) Elevated INR: (3) Rhabdomyolysis: (4) JAEL (acute kidney injury): (5) Acute hypokalemia: (6) Acute UTI: Plan: This is a 71-year-old female who presents with fall. 1. Fall. History of ambulatory dysfunction, ambulates with walker, presents with fall, most likely secondary to urinary tract infection. PT, OT when stable. Monitor in the hospital. 2. Possible sepsis with elevated white count, tachycardia, blood pressure on lower side. UTI Urinalysis positive. Urine culture positive for Proteus Mirabilis - pansensitive ER Empirically started Zosyn, continued Bacteremia Blood culture (02/06) positive for gram-positive bacilli on admission - Clostridium perfringens Repeat blood culture (02/07) NGTD Continue Zosyn since admission. Vancomycin added when bacteremia was confirmed. Vancomycin stopped yesterday, February 09. Follow final culture results Obtained echo There is no evidence of mass or vegetation. This does not rule out endocarditis. There is mild concentric LVH. EF 60 to 65%. RV systolic function is normal. LA size is normal. RA size is normal. Mild aortic regurg. ID consult pending 3. Hypokalemia. Replace and monitor 4. Acute kidney injury - resolved Baseline creatinine of 0.9, On admission creatinine of 1.5. Received fluids. Avoid nephrotoxic agents. Holding diuretics. Current Cr 0.7 5. Elevated CPK, mild rhabdomyolysis. Follow the repeat CPK. getting fluids. Mild elevation in bilirubin. Mild elev. in troponin secondary to rhabdo. CK, trop trended down Echo obtained, as above 6. Chronic diastolic CHF, holding the diuretics. Getting fluids. Monitor for any volume overload. 7. Hypothyroidism. Continue home Synthroid. 8. History of Parkinson. Continue home carbidopa/levodopa. 9. Hyperlipidemia. Continue statin. 10. Chronic pain. Continue home pain medications. 11. Hypertension. As per the Epic, she is on metoprolol 25 mg in the a.m. and 12.5 mg in the p.m. currently. On last admission, metoprolol 12.5 p.m. Will need to clarify. Held on admission as the patient was hypotensive. Resume 12.5 mg PO daily. 12. Gastroesophageal reflux disease. Continue omeprazole. 13. Restless leg syndrome: Continue ropinirole. 14. History of deep venous thrombosis and pulmonary embolism. On Coumadin. Follow PT/INR. History of hypercoagulability. History of pulmonary embolus and deep venous thrombosis. On Coumadin. INR elevated on admission, and vit. K given. 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 16. History of asthma. Stable. Continue home medications. 17. Chronic anemia. Follow the H and H. 18. History of gastric bypass. 19. History of peripheral vascular disease. 20. History of thoracic aortic aneurysm, needs to follow. DVT prophylaxis. On Coumadin. INR elevated on admission, vit. K given. INR now subtherapeutic, resume warfarin, and provide subcu heparin DISPOSITION:tele floor. Plan to DC [facility] when medically stable full code Admission and Anticipated Discharge Date Admission Date: February 06, 2022 Subjective Patient seen in follow-up of fall, UTI Blood culture positive for gram-positive bacilli on admission Patient is currently lying in bed, in no acute distress Denies fevers, chills, chest pain, shortness of breath Denies abdominal pain, nausea or vomiting She feels weak Per administrative staff supervisor, patient needs a lot of assistance with ambulation Review of Systems Review of Systems: All systems reviewed & are unremarkable except as noted in Subjective Physical Exam Physical Exam: GENERAL: obese F not in acute distress. HEENT: NC/AT. EOMI, Pupils equal, round and reactive to light. Oral mucosa dry. NECK: No JVD, no neck masses. CARDIOVASCULAR: S1 and S2 heard. Regular rate and rhythm. No murmur, no gallop. RESPIRATORY: Normal AP diameter. No accessory muscle use. No wheezing, no crackles. ABDOMEN: Soft, bowel sounds present, nontender, no distention. NEURO: Alert and oriented. No facial droop. Obeys simple commands. Insight is good. Speaks in low volumes. Moves extremities. EXTREMITIES: trace bilateral lower extremity edema present with some erythematous changes in the left lower extremity. Results & Data Results & Data ([facility]) Vital Signs (Past 12 Hours) Vital Signs Temp Pulse Pulse Resp BP BP Pulse Ox 02/10/22 07:37 36.5 C 80 17 116/76 98 02/10/22 07:00 82 02/10/22 03:20 36.5 C 93 H 20 94/62 L 94 02/09/22 22:20 88 02/09/22 23:46 36.5 C 103 H 20 90/60 L 98 O2 Del Method 02/10/22 07:37 Room Air 02/10/22 07:00 02/10/22 03:20 Room Air 02/09/22 22:20 02/09/22 23:46 Room Air Laboratory Results 02/10/22 02/10/22 02/10/22 Range/Units 07:17 07:17 07:17 WBC 7.46 (4.8-10.8) K/ul RBC 2.84 L (3.93-5.22) M/uL Hgb 8.3 L (12.0-16.0) g/dl Hct 26.7 L (34.1-44.9) % MCV 94.0 (80.0-100.0) fL MCH 29.2 (25.0-34.0) pg MCHC 31.1 L (32.0-36.0) g/dL RDW Std Deviation 52.2 H (36.4-46.3) fL RDW Coeff of Neftaly 15.2 H (11.5-14.5) % Plt Count 195 (130-400) K/uL MPV 10.1 (9.4-12.3) fL Absolute Nucleated RBC 0.05 H (0-0) K/uL Nucleated RBC % (auto) 0.7 % PT 12.4 H (9.0-12.0) Seconds INR 1.2 H (0.9-1.1) Sodium 141 (136-145) mmol/L Potassium 3.5 (3.5-5.1) mmol/L Chloride 114 H (98-107) mmol/L Carbon Dioxide 23 (21-32) mmol/L Anion Gap 4 (3-11) BUN 22 (6-23) mg/dl Creatinine 0.72 (0.6-1.2) mg/dl Est Cr Clr Drug Dosing 68.7 ml/min Est GFR ( Amer) 97.7 ml/min Est GFR (Non-Af Amer) 84.3 ml/min BUN/Creatinine Ratio 30.6 H (10-20) Glucose 88 (70-99(Fasting)) mg/dl Calcium 8.3 L (8.5-10.1) mg/dl Medications Administered Current Inpatient Medications Acetaminophen (Acetaminophen 325 Mg Tab) 650 mg PO Q4H PRN PRN Reason: Pain or Fever Stop: 03/08/22 22:57 Albuterol (Albuterol Hfa 8 Gm Inhaler) 2 puffs INH Q6 PRN PRN Reason: Shortness Of Breath Or Wheezing Stop: 03/08/22 22:57 Albuterol (Albut/Ipratrop 3mg/0.5mg Neb 3 Ml Vial) 3 ml INH QIDR PRN; Protocol PRN Reason: Wheezing Stop: 03/08/22 22:57 Atorvastatin Calcium (Atorvastatin 20 Mg Tab) 20 mg PO QAM [facility] Stop: 03/09/22 08:59 Last Admin: 02/10/22 09:14 Dose: 20 mg Buprenorphine HCl (Buprenorphine 15 Mcg/Patch Tdsy) 15 mcg TD Q7D@0900 [facility] Stop: 03/10/22 13:59 Last Admin: 02/08/22 14:38 Dose: 15 mcg Carbidopa/Levodopa (Carbidopa/Levodopa 25/100mg Tab) 1 tab PO QID [facility] Stop: 03/08/22 22:57 Last Admin: 02/10/22 09:13 Dose: 1 tab Docusate Sodium (Docusate Sodium Syrup 100 Mg/10 Ml Udc) 50 mg PO BID PRN PRN Reason: Constipation Last Admin: 02/10/22 09:14 Dose: 50 mg Fluticasone Propionate (Fluticasone Propionate Na Spr 16 Gm Btl) 2 sprays NA DAILY [facility] Stop: 03/09/22 08:59 Last Admin: 02/10/22 09:15 Dose: 2 sprays Fluticasone/Vilanterol (Fluticasone/Vilanterol 100/25mcg 14 Puffs/Inhaler) 1 puffs INH DAILY [facility] Stop: 03/09/22 08:59 Last Admin: 02/10/22 09:15 Dose: 1 puffs Heparin Sodium (Porcine) (Heparin Sod 5,000 Unit/0.5 Ml Vial) 5,000 units SQ Q12 [facility] Stop: 03/12/22 09:14 Hydroxyzine HCl (Hydroxyzine Hcl 25 Mg Tab) 25 mg PO Q6 PRN PRN Reason: .ANX/ITCH Stop: 03/08/22 22:57 Piperacillin Sod/Tazobactam (Sod 3.375 gm/ Dextrose) 115 mls @ 28.75 mls/hr IV Q8H [facility]; Protocol Stop: 02/17/22 03:59 Last Infusion: 02/10/22 08:59 Dose: Infused Lactobacillus Acidophilus (Advanced Probiotic 1250 Mg Capsule) 2 cap PO DAILY [facility] Stop: 03/09/22 08:59 Last Admin: 02/10/22 09:14 Dose: 2 cap Levothyroxine Sodium (Levothyroxine Sodium 50 Mcg Tablet) 50 mcg PO DAILYBB [facility] Stop: 03/09/22 06:29 Last Admin: 02/10/22 05:47 Dose: 50 mcg Linaclotide (Linaclotide 145 Mcg Capsule) 290 mcg PO DAILY [facility] Stop: 03/09/22 08:59 Last Admin: 02/10/22 09:14 Dose: 290 mcg Meclizine HCl (Meclizine Hcl 25 Mg Tab) 25 mg PO TID PRN PRN Reason: DIZZY Stop: 03/08/22 22:57 Last Admin: 02/10/22 09:14 Dose: 25 mg Metaxalone (Metaxalone 800 Mg Tablet) 800 mg PO QID [facility] Stop: 03/08/22 22:57 Last Admin: 02/10/22 09:13 Dose: 800 mg Miscellaneous (Cromolyn 4%: Order Awaiting Action) 1 each N/A QS [facility] Stop: 03/09/22 07:59 Last Admin: 02/10/22 09:05 Dose: Not Given Miscellaneous (Check Buprenorphine Patch) 1 each N/A QS [facility] Stop: 03/09/22 15:59 Last Admin: 02/10/22 08:00 Dose: 1 each Miscellaneous (Remove & Waste Butrans Patch 1 Ea Ea) 1 each N/A Q7D@0859 [facility] Stop: 03/10/22 13:58 Last Admin: 02/08/22 14:38 Dose: 1 each Montelukast Sodium (Montelukast Sodium 10 Mg Tablet) 10 mg PO HS [facility] Stop: 03/08/22 22:57 Last Admin: 02/09/22 21:17 Dose: 10 mg Multivitamins/Minerals (Cerovite Adv Formula Tab) 1 tab PO DAILY [facility] Stop: 03/09/22 08:59 Last Admin: 02/10/22 09:14 Dose: 1 tab Nitroglycerin (Nitroglycerin Sl 0.4 Mg/Tab Tab) 0.4 mg SL UD PRN PRN Reason: Chest Pain Stop: 03/08/22 22:57 Ondansetron HCl (Ondansetron 4 Mg Od Tab) 4 mg PO Q12 PRN PRN Reason: Nausea Stop: 03/08/22 22:57 Pantoprazole Sodium (Pantoprazole 40 Mg Tab) 40 mg PO DAILY [facility] Stop: 03/09/22 08:59 Last Admin: 02/10/22 09:14 Dose: 40 mg Ropinirole HCl (Ropinirole Hcl 1 Mg Tablet) 2 mg PO HS [facility] Stop: 03/08/22 22:57 Last Admin: 02/09/22 21:17 Dose: 2 mg Ropinirole HCl (Ropinirole Hcl 1 Mg Tablet) 1 mg PO TIDM [facility] Stop: 03/09/22 07:59 Last Admin: 02/10/22 09:13 Dose: 1 mg Senna/Docusate Sodium (Docusate Sodium/Senna 50/8.6mg Tab) 1 tab PO BID [facility] Stop: 03/08/22 22:57 Last Admin: 02/10/22 09:15 Dose: 1 tab Triamcinolone Acetonide (Triamcinolone Acet 0.1% Cr 15 Gm Tube) 1 appln TOP BID PRN PRN Reason: FLARE UP Stop: 03/08/22 22:57 Warfarin Sodium (Warfarin Sod 2.5 Mg Tab) 2.5 mg PO DAILY@1600 [facility] Stop: 03/12/22 15:59 Warfarin Sodium (Warfarin Sod 1.25 Mg Tab) 1.25 mg PO Mo@1600 [facility] Stop: 03/14/22 15:59 (1) Rhabdomyolysis Encounter type: initial encounter (2) Fall Encounter type: initial encounter Qualified Code(s): W19.XXXA - Unspecified fall, initial encounter
[2022-02-10] MEDS: HEPARIN SOD 5,000 UNIT/0.5 ML VIAL SQ SCH ×2 (10:28→21:45)
[2022-02-10] MEDS ORDERED: POTASSIUM CHLORIDE PWD 20 MEQ PACK PO ONE (12:00)
[2022-02-10] MEDS: WARFARIN SOD 2.5 MG TAB PO SCH (17:24)
[2022-02-10] MEDS: METOPROLOL TARTRATE 25 MG TAB PO SCH (18:56)
[2022-02-10] MEDS: MONTELUKAST SODIUM 10 MG TABLET PO SCH (21:45)
[2022-02-11] MEDS: CHECK BUPRENORPHINE PATCH SCH ×3 (00:13→17:39)
[2022-02-11] MEDS: PIPERACILLIN/TAZOBACTAM 3.375 GM in DEXTROSE 5% 100 ML IV SCH ×3 (04:00→20:28)
[2022-02-11] MEDS: LEVOTHYROXINE SODIUM 50 MCG TABLET PO SCH (06:25)
[2022-02-11 08:31] LABS: Hemoglobin 8.7 g/dl (12.0-16.0); Mean Corpuscular Hemoglobin 29.3 pg (25.0-34.0); Mean Corpuscular Hgb Conc 31.1 g/dL (32.0-36.0); Mean Corpuscular Volume 94.3 fL (80.0-100.0); Mean Platelet Volume 10.1 fL (9.4-12.3); Nucleated RBC # (auto) 0.03 K/uL (0-0); Nucleated RBC % (auto) 0.4 %; Platelet Count 196 K/uL (130-400); RDW Coefficient of Variation 15.3 % (11.5-14.5); RDW Standard Deviation 52.7 fL (36.4-46.3); Red Blood Count 2.97 M/uL (3.93-5.22); White Blood Count 8.39 K/ul (4.8-10.8)
[2022-02-11 08:44] LABS: INR 1.4 (0.9-1.1); Prothrombin Time 15.1 Seconds (9.0-12.0)
[2022-02-11] MEDS: CARBIDOPA/LEVODOPA 25/100MG TAB PO SCH ×4 (08:46→20:37)
[2022-02-11] MEDS: ATORVASTATIN 20 MG TAB PO SCH (08:47)
[2022-02-11] MEDS: METOPROLOL TARTRATE 25 MG TAB PO SCH (08:47)
[2022-02-11] MEDS: rOPINIRole HCL 1 MG TABLET PO SCH ×4 (08:47→20:37)
[2022-02-11] MEDS: METAXALONE 800 MG TABLET PO SCH ×4 (08:47→19:58)
[2022-02-11] MEDS: HEPARIN SOD 5,000 UNIT/0.5 ML VIAL SQ SCH ×2 (08:48→20:37)
[2022-02-11] MEDS: DOCUSATE SODIUM/SENNA 50/8.6MG TAB PO SCH ×2 (08:48→20:37)
[2022-02-11] MEDS: LINACLOTIDE 145 MCG CAPSULE PO SCH (08:48)
[2022-02-11] MEDS: ADVANCED PROBIOTIC 1250 MG CAPSULE PO SCH (08:49)
[2022-02-11] MEDS: MECLIZINE HCL 25 MG TAB PO PRN (08:49)
[2022-02-11] MEDS: PANTOprazole 40 MG TAB PO SCH (08:49)
[2022-02-11] MEDS: CEROVITE ADV FORMULA TAB PO SCH (08:49)
[2022-02-11] MEDS: DOCUSATE SODIUM SYRUP 100 MG/10 ML UDC PO PRN (08:49)
[2022-02-11] MEDS: FLUTICASONE/VILANTEROL 100/25MCG 14 PUFFS/INHALER INH SCH (08:50)
[2022-02-11] MEDS: FLUTICASONE PROPIONATE NA SPR 16 GM BTL SCH (08:50)
[2022-02-11 08:51] LABS: BUN Creatinine Ratio 26.4 (10-20); Calcium 8.6 mg/dl (8.5-10.1); Creatinine Clr Calc Pharmacy 68.6 ml/min; Est GFR (African American) 97.7 ml/min; Est GFR (Non-African American) 84.3 ml/min; Magnesium 1.5 mg/dl (1.7-2.4); Phosphorus 2.3 mg/dl (2.5-4.9); Potassium 3.6 mmol/L (3.5-5.1)
[2022-02-11] MEDS ORDERED: POTASSIUM CHLORIDE CRTAB 20 MEQ TABCR PO STA (11:02)
[2022-02-11] MEDS ORDERED: MAGNESIUM SULFATE / D5W 1 GM/100 ML BAG IV ONE (11:02)
--- NOTE | 2022-02-11 11:06 | Hospitalist Progress Note ---
Date of Service February 11, 2022 Assessment & Plan (1) Fall: (2) Elevated INR: (3) Rhabdomyolysis: (4) JAEL (acute kidney injury): (5) Acute hypokalemia: (6) Acute UTI: Plan: This is a 71-year-old female who presents with fall. 1. Fall. History of ambulatory dysfunction, ambulates with walker, presents with fall, most likely secondary to urinary tract infection. PT, OT when stable. Monitor in the hospital. 2. Possible sepsis with elevated white count, tachycardia, blood pressure on lower side. UTI Urinalysis positive. Urine culture positive for Proteus Mirabilis - pansensitive ER Empirically started Zosyn, continued Bacteremia Blood culture (02/06) positive for gram-positive bacilli on admission - Clostridium perfringens Repeat blood culture (02/07) NGTD Continue Zosyn since admission. Vancomycin added when bacteremia was confirmed. Vancomycin stopped, February 09. Follow final culture results Obtained echo There is no evidence of mass or vegetation. This does not rule out endocarditis. There is mild concentric LVH. EF 60 to 65%. RV systolic function is normal. LA size is normal. RA size is normal. Mild aortic regurg. ID consult pending 3. Hypokalemia. Replace and monitor 4. Acute kidney injury - resolved Baseline creatinine of 0.9, On admission creatinine of 1.5. Received fluids. Avoid nephrotoxic agents. Holding diuretics. Current Cr 0.7 5. Elevated CPK, mild rhabdomyolysis. Follow the repeat CPK. getting fluids. Mild elevation in bilirubin. Mild elev. in troponin secondary to rhabdo. CK, trop trended down Echo obtained, as above 6. Chronic diastolic CHF, holding the diuretics. Getting fluids. Monitor for any volume overload. 7. Hypothyroidism. Continue home Synthroid. 8. History of Parkinson. Continue home carbidopa/levodopa. 9. Hyperlipidemia. Continue statin. 10. Chronic pain. Continue home pain medications. 11. Hypertension. As per the Epic, she is on metoprolol 25 mg in the a.m. and 12.5 mg in the p.m. currently. On last admission, metoprolol 12.5 p.m. Will need to clarify. Held on admission as the patient was hypotensive. Resume 12.5 mg PO daily. 12. Gastroesophageal reflux disease. Continue omeprazole. 13. Restless leg syndrome: Continue ropinirole. 14. History of deep venous thrombosis and pulmonary embolism. On Coumadin. Follow PT/INR. History of hypercoagulability. History of pulmonary embolus and deep venous thrombosis. On Coumadin. INR elevated on admission, and vit. K given. 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 16. History of asthma. Stable. Continue home medications. 17. Chronic anemia. Follow the H and H. 18. History of gastric bypass. 19. History of peripheral vascular disease. 20. History of thoracic aortic aneurysm, needs to follow. DVT prophylaxis. On Coumadin. INR elevated on admission, vit. K given. INR now subtherapeutic, resume warfarin, and provide subcu heparin DISPOSITION:tele floor. Plan to DC [facility] when medically stable full code Admission and Anticipated Discharge Date Admission Date: February 06, 2022 Subjective Patient seen in follow-up of fall, UTI Blood culture positive for gram-positive bacilli on admission Patient is currently lying in bed, in no acute distress Denies fevers, chills, chest pain, shortness of breath Denies abdominal pain, nausea or vomiting She feels weak Per staff reporter, patient needs a lot of assistance with ambulation Review of Systems Review of Systems: All systems reviewed & are unremarkable except as noted in Subjective Physical Exam Physical Exam: GENERAL: obese F not in acute distress. HEENT: NC/AT. EOMI, Pupils equal, round and reactive to light. Oral mucosa dry. NECK: No JVD, no neck masses. CARDIOVASCULAR: S1 and S2 heard. Regular rate and rhythm. No murmur, no gallop. RESPIRATORY: Normal AP diameter. No accessory muscle use. No wheezing, no crackles. ABDOMEN: Soft, bowel sounds present, nontender, no distention. NEURO: Alert and oriented. No facial droop. Obeys simple commands. Insight is good. Speaks in low volumes. Moves extremities. EXTREMITIES: trace bilateral lower extremity edema present with some mild erythematous changes in the left lower extremity. Results & Data Results & Data ([facility]) Vital Signs (Past 12 Hours) Vital Signs Temp Pulse Pulse Resp BP BP Pulse Ox 02/11/22 10:51 36.6 C 74 18 91/60 L 97 02/11/22 07:00 80 02/11/22 07:14 36.5 C 82 16 109/70 98 02/11/22 03:20 36.4 C L 80 22 107/71 96 02/10/22 23:15 81 O2 Del Method 02/11/22 10:51 Room Air 02/11/22 07:00 02/11/22 07:14 Room Air 02/11/22 03:20 Room Air 02/10/22 23:15 Laboratory Results 02/11/22 02/11/22 02/11/22 Range/Units 07:44 07:44 07:44 WBC 8.39 (4.8-10.8) K/ul RBC 2.97 L (3.93-5.22) M/uL Hgb 8.7 L (12.0-16.0) g/dl Hct 28.0 L (34.1-44.9) % MCV 94.3 (80.0-100.0) fL MCH 29.3 (25.0-34.0) pg MCHC 31.1 L (32.0-36.0) g/dL RDW Std Deviation 52.7 H (36.4-46.3) fL RDW Coeff of Neftaly 15.3 H (11.5-14.5) % Plt Count 196 (130-400) K/uL MPV 10.1 (9.4-12.3) fL Absolute Nucleated RBC 0.03 H (0-0) K/uL Nucleated RBC % (auto) 0.4 % PT 15.1 H (9.0-12.0) Seconds INR 1.4 H (0.9-1.1) Sodium 140 (136-145) mmol/L Potassium 3.6 (3.5-5.1) mmol/L Chloride 111 H (98-107) mmol/L Carbon Dioxide 23 (21-32) mmol/L Anion Gap 6 (3-11) BUN 19 (6-23) mg/dl Creatinine 0.72 (0.6-1.2) mg/dl Est Cr Clr Drug Dosing 68.6 ml/min Est GFR ( Amer) 97.7 ml/min Est GFR (Non-Af Amer) 84.3 ml/min BUN/Creatinine Ratio 26.4 H (10-20) Glucose 78 (70-99(Fasting)) mg/dl Calcium 8.6 (8.5-10.1) mg/dl Phosphorus 2.3 L (2.5-4.9) mg/dl Magnesium 1.5 L (1.7-2.4) mg/dl Medications Administered Current Inpatient Medications Acetaminophen (Acetaminophen 325 Mg Tab) 650 mg PO Q4H PRN PRN Reason: Pain or Fever Stop: 03/08/22 22:57 Albuterol (Albuterol Hfa 8 Gm Inhaler) 2 puffs INH Q6 PRN PRN Reason: Shortness Of Breath Or Wheezing Stop: 03/08/22 22:57 Albuterol (Albut/Ipratrop 3mg/0.5mg Neb 3 Ml Vial) 3 ml INH QIDR PRN; Protocol PRN Reason: Wheezing Stop: 03/08/22 22:57 Atorvastatin Calcium (Atorvastatin 20 Mg Tab) 20 mg PO QAM [facility] Stop: 03/09/22 08:59 Last Admin: 02/11/22 08:47 Dose: 20 mg Buprenorphine HCl (Buprenorphine 15 Mcg/Patch Tdsy) 15 mcg TD Q7D@0900 [facility] Stop: 03/10/22 13:59 Last Admin: 02/08/22 14:38 Dose: 15 mcg Carbidopa/Levodopa (Carbidopa/Levodopa 25/100mg Tab) 1 tab PO QID [facility] Stop: 03/08/22 22:57 Last Admin: 02/11/22 08:46 Dose: 1 tab Docusate Sodium (Docusate Sodium Syrup 100 Mg/10 Ml Udc) 50 mg PO BID PRN PRN Reason: Constipation Last Admin: 02/11/22 08:49 Dose: 50 mg Fluticasone Propionate (Fluticasone Propionate Na Spr 16 Gm Btl) 2 sprays NA DAILY [facility] Stop: 03/09/22 08:59 Last Admin: 02/11/22 08:50 Dose: 2 sprays Fluticasone/Vilanterol (Fluticasone/Vilanterol 100/25mcg 14 Puffs/Inhaler) 1 puffs INH DAILY [facility] Stop: 03/09/22 08:59 Last Admin: 02/11/22 08:50 Dose: 1 puffs Heparin Sodium (Porcine) (Heparin Sod 5,000 Unit/0.5 Ml Vial) 5,000 units SQ Q12 [facility] Stop: 03/12/22 09:14 Last Admin: 02/11/22 08:48 Dose: 5,000 units Hydroxyzine HCl (Hydroxyzine Hcl 25 Mg Tab) 25 mg PO Q6 PRN PRN Reason: .ANX/ITCH Stop: 03/08/22 22:57 Piperacillin Sod/Tazobactam (Sod 3.375 gm/ Dextrose) 115 mls @ 28.75 mls/hr IV Q8H [facility]; Protocol Stop: 02/17/22 03:59 Last Infusion: 02/11/22 08:02 Dose: Infused Magnesium Sulfate/Dextrose (Magnesium Sulfate / D5w) 1 gm in 100 mls @ 50 mls/hr IV ONE ONE Stop: 02/11/22 13:01 Lactobacillus Acidophilus (Advanced Probiotic 1250 Mg Capsule) 2 cap PO DAILY [facility] Stop: 03/09/22 08:59 Last Admin: 02/11/22 08:49 Dose: 2 cap Levothyroxine Sodium (Levothyroxine Sodium 50 Mcg Tablet) 50 mcg PO DAILYBB [facility] Stop: 03/09/22 06:29 Last Admin: 02/11/22 06:25 Dose: 50 mcg Linaclotide (Linaclotide 145 Mcg Capsule) 290 mcg PO DAILY [facility] Stop: 03/09/22 08:59 Last Admin: 02/11/22 08:48 Dose: 290 mcg Meclizine HCl (Meclizine Hcl 25 Mg Tab) 25 mg PO TID PRN PRN Reason: DIZZY Stop: 03/08/22 22:57 Last Admin: 02/11/22 08:49 Dose: 25 mg Metaxalone (Metaxalone 800 Mg Tablet) 800 mg PO QID [facility] Stop: 03/08/22 22:57 Last Admin: 02/11/22 08:47 Dose: 800 mg Metoprolol Tartrate (Metoprolol Tartrate 25 Mg Tab) 12.5 mg PO QAM [facility] Stop: 03/12/22 16:59 Last Admin: 02/11/22 08:47 Dose: 12.5 mg Miscellaneous (Check Buprenorphine Patch) 1 each N/A QS [facility] Stop: 03/09/22 15:59 Last Admin: 02/11/22 08:50 Dose: 1 each Miscellaneous (Remove & Waste Butrans Patch 1 Ea Ea) 1 each N/A Q7D@0859 [facility] Stop: 03/10/22 13:58 Last Admin: 02/08/22 14:38 Dose: 1 each Montelukast Sodium (Montelukast Sodium 10 Mg Tablet) 10 mg PO HS [facility] Stop: 03/08/22 22:57 Last Admin: 02/10/22 21:45 Dose: 10 mg Multivitamins/Minerals (Cerovite Adv Formula Tab) 1 tab PO DAILY [facility] Stop: 03/09/22 08:59 Last Admin: 02/11/22 08:49 Dose: 1 tab Nitroglycerin (Nitroglycerin Sl 0.4 Mg/Tab Tab) 0.4 mg SL UD PRN PRN Reason: Chest Pain Stop: 03/08/22 22:57 Ondansetron HCl (Ondansetron 4 Mg Od Tab) 4 mg PO Q12 PRN PRN Reason: Nausea Stop: 03/08/22 22:57 Pantoprazole Sodium (Pantoprazole 40 Mg Tab) 40 mg PO DAILY [facility] Stop: 03/09/22 08:59 Last Admin: 02/11/22 08:49 Dose: 40 mg Ropinirole HCl (Ropinirole Hcl 1 Mg Tablet) 2 mg PO HS [facility] Stop: 03/08/22 22:57 Last Admin: 02/10/22 21:44 Dose: 2 mg Ropinirole HCl (Ropinirole Hcl 1 Mg Tablet) 1 mg PO TIDM [facility] Stop: 03/09/22 07:59 Last Admin: 02/11/22 08:47 Dose: 1 mg Senna/Docusate Sodium (Docusate Sodium/Senna 50/8.6mg Tab) 1 tab PO BID [facility] Stop: 03/08/22 22:57 Last Admin: 02/11/22 08:48 Dose: 1 tab Triamcinolone Acetonide (Triamcinolone Acet 0.1% Cr 15 Gm Tube) 1 appln TOP BID PRN PRN Reason: FLARE UP Stop: 03/08/22 22:57 Warfarin Sodium (Warfarin Sod 2.5 Mg Tab) 2.5 mg PO DAILY@1600 [facility] Stop: 03/12/22 15:59 Last Admin: 02/10/22 17:24 Dose: 2.5 mg Warfarin Sodium (Warfarin Sod 1.25 Mg Tab) 1.25 mg PO Mo@1600 [facility] Stop: 03/14/22 15:59 (1) Fall Encounter type: initial encounter Qualified Code(s): W19.XXXA - Unspecified fall, initial encounter (2) Rhabdomyolysis Encounter type: initial encounter
[2022-02-11] MEDS: WARFARIN SOD 2.5 MG TAB PO SCH (17:38)
[2022-02-11] MEDS: ACETAMINOPHEN 325 MG TAB PO PRN (19:59)
[2022-02-11] MEDS: MONTELUKAST SODIUM 10 MG TABLET PO SCH (20:37)
[2022-02-11] MEDS: hydrOXYzine HCl 25 MG TAB PO PRN (20:37)
[2022-02-12] MEDS: CHECK BUPRENORPHINE PATCH SCH ×3 (00:31→16:06)
[2022-02-12] MEDS: PIPERACILLIN/TAZOBACTAM 3.375 GM in DEXTROSE 5% 100 ML IV SCH ×3 (03:47→20:14)
[2022-02-12] MEDS: LEVOTHYROXINE SODIUM 50 MCG TABLET PO SCH (05:49)
[2022-02-12 06:18] LABS: INR 1.7 (0.9-1.1); Prothrombin Time 17.8 Seconds (9.0-12.0)
[2022-02-12 06:30] LABS: BUN Creatinine Ratio 23.1 (10-20); Calcium 7.9 mg/dl (8.5-10.1); Creatinine Clr Calc Pharmacy 76.2 ml/min; Est GFR (African American) 103.5 ml/min; Est GFR (Non-African American) 89.3 ml/min; Magnesium 1.5 mg/dl (1.7-2.4); Potassium 3.7 mmol/L (3.5-5.1)
--- NOTE | 2022-02-12 07:52 | Hospitalist Progress Note ---
Date of Service February 12, 2022 Assessment & Plan (1) Fall: (2) Elevated INR: (3) Rhabdomyolysis: (4) JAEL (acute kidney injury): (5) Acute hypokalemia: (6) Acute UTI: Plan: This is a 71-year-old female who presents with fall. 1. Fall. History of ambulatory dysfunction, ambulates with walker, presents with fall, most likely secondary to urinary tract infection. PT, OT when stable. Monitor in the hospital. 2. Possible sepsis with elevated white count, tachycardia, blood pressure on lower side. UTI Urinalysis positive. Urine culture positive for Proteus Mirabilis - pansensitive ER Empirically started Zosyn, continued Bacteremia Blood culture (02/06) positive for gram-positive bacilli on admission - Clostridium perfringens Repeat blood culture (02/07) NGTD Continue Zosyn since admission. Vancomycin added when bacteremia was confirmed. Vancomycin stopped, February 09. Follow final culture results Obtained echo There is no evidence of mass or vegetation. This does not rule out endocarditis. There is mild concentric LVH. EF 60 to 65%. RV systolic function is normal. LA size is normal. RA size is normal. Mild aortic regurg. ID consult pending 3. Hypokalemia. Replace and monitor 4. Acute kidney injury - resolved Baseline creatinine of 0.9, On admission creatinine of 1.5. Received fluids. Avoid nephrotoxic agents. Holding diuretics. Current Cr 0.7 5. Elevated CPK, mild rhabdomyolysis. Follow the repeat CPK. getting fluids. Mild elevation in bilirubin. Mild elev. in troponin secondary to rhabdo. CK, trop trended down Echo obtained, as above 6. Chronic diastolic CHF, holding the diuretics since admission. Getting fluids. Monitor for any volume overload. been on lasix 40-80 mg chronically. Now holding any lasix and BP persistently on lower side Interestingly patient also lost a significant amount of weight since last admission. Reviewing EMR, during last admission patient was about 88 kg, now she is about 80 kg. During last admission she also had significant lower extremity edema, now trace/no lower extremity edema. Continue to hold Lasix May resume Lasix, likely at lower dose, once blood pressure improved 7. Hypertension. Blood pressure on low side since admission. Was on metoprolol 25 mg in the a.m. and 12.5 mg in the p.m. Since last admission 12.5 mg HS. Changed metoprolol to 6.25 mg bid d/t lower BP and no tachycardia. Hypothyroidism. Continue home Synthroid. History of Parkinson. Continue home carbidopa/levodopa. Hyperlipidemia. Continue statin. Chronic pain. Continue home pain medications. Gastroesophageal reflux disease. Continue omeprazole. Restless leg syndrome: Continue ropinirole. History of deep venous thrombosis and pulmonary embolism. On Coumadin. Follow PT/INR. History of hypercoagulability. History of pulmonary embolus and deep venous thrombosis. On Coumadin. INR elevated on admission, and vit. K given. INR now subtherapeutic, resumed warfarin and provide subcu heparin History of Edenilosn-Danlos syndrome. History of asthma. Stable. Continue home medications. Chronic anemia. Follow the H and H. History of gastric bypass. History of peripheral vascular disease. History of thoracic aortic aneurysm, needs to follow. DVT prophylaxis. On Coumadin. INR elevated on admission, vit. K given. INR now subtherapeutic, resume warfarin, and provide subcu heparin DISPOSITION:tele floor. Plan to DC [facility] when medically stable full code Admission and Anticipated Discharge Date Admission Date: February 06, 2022 Subjective Patient seen in follow-up of fall, UTI Blood culture positive for gram-positive bacilli (Clostridium) on admission Patient is currently lying in bed, in no acute distress Denies fevers, chills, chest pain, shortness of breath Denies abdominal pain, nausea or vomiting She feels weak, needs a lot of assistance with ambulation Review of Systems Review of Systems: All systems reviewed & are unremarkable except as noted in Subjective Physical Exam Physical Exam: GENERAL: obese F not in acute distress. HEENT: NC/AT. EOMI, Pupils equal, round and reactive to light. Oral mucosa dry. NECK: No JVD, no neck masses. CARDIOVASCULAR: S1 and S2 heard. Regular rate and rhythm. No murmur, no gallop. RESPIRATORY: Normal AP diameter. No accessory muscle use. No wheezing, no crackles. ABDOMEN: Soft, bowel sounds present, nontender, no distention. NEURO: Alert and oriented. No facial droop. Obeys simple commands. Insight is good. Speaks in low volumes. Moves extremities. EXTREMITIES: no bilateral lower extremity edema present with some mild erythematous changes in the left lower extremity. Results & Data Results & Data ([facility]) Vital Signs (Past 12 Hours) Vital Signs Temp Pulse Pulse Resp BP Pulse Ox O2 Del Method 02/12/22 06:10 83 02/12/22 07:22 36.7 C 18 103/68 96 Room Air 02/12/22 03:18 36.4 C L 79 18 96/58 L 97 Room Air 02/11/22 22:25 74 02/11/22 23:34 36.5 C 78 18 93/58 L 92 Laboratory Results 02/12/22 02/12/22 02/11/22 Range/Units 05:37 05:37 07:44 WBC (4.8-10.8) K/ul RBC (3.93-5.22) M/uL Hgb (12.0-16.0) g/dl Hct (34.1-44.9) % MCV (80.0-100.0) fL MCH (25.0-34.0) pg MCHC (32.0-36.0) g/dL RDW Std Deviation (36.4-46.3) fL RDW Coeff of Neftaly (11.5-14.5) % Plt Count (130-400) K/uL MPV (9.4-12.3) fL Absolute Nucleated RBC (0-0) K/uL Nucleated RBC % (auto) % PT 17.8 H (9.0-12.0) Seconds INR 1.7 H (0.9-1.1) Sodium 137 140 (136-145) mmol/L Potassium 3.7 3.6 (3.5-5.1) mmol/L Chloride 110 H 111 H (98-107) mmol/L Carbon Dioxide 23 23 (21-32) mmol/L Anion Gap 4 6 (3-11) BUN 15 19 (6-23) mg/dl Creatinine 0.65 0.72 (0.6-1.2) mg/dl Est Cr Clr Drug Dosing 76.2 68.6 ml/min Est GFR ( Amer) 103.5 97.7 ml/min Est GFR (Non-Af Amer) 89.3 84.3 ml/min BUN/Creatinine Ratio 23.1 H 26.4 H (10-20) Glucose 88 78 (70-99(Fasting)) mg/dl Calcium 7.9 L 8.6 (8.5-10.1) mg/dl Phosphorus 2.3 L (2.5-4.9) mg/dl Magnesium 1.5 L 1.5 L (1.7-2.4) mg/dl 02/11/22 02/11/22 Range/Units 07:44 07:44 WBC 8.39 (4.8-10.8) K/ul RBC 2.97 L (3.93-5.22) M/uL Hgb 8.7 L (12.0-16.0) g/dl Hct 28.0 L (34.1-44.9) % MCV 94.3 (80.0-100.0) fL MCH 29.3 (25.0-34.0) pg MCHC 31.1 L (32.0-36.0) g/dL RDW Std Deviation 52.7 H (36.4-46.3) fL RDW Coeff of Neftaly 15.3 H (11.5-14.5) % Plt Count 196 (130-400) K/uL MPV 10.1 (9.4-12.3) fL Absolute Nucleated RBC 0.03 H (0-0) K/uL Nucleated RBC % (auto) 0.4 % PT 15.1 H (9.0-12.0) Seconds INR 1.4 H (0.9-1.1) Sodium (136-145) mmol/L Potassium (3.5-5.1) mmol/L Chloride (98-107) mmol/L Carbon Dioxide (21-32) mmol/L Anion Gap (3-11) BUN (6-23) mg/dl Creatinine (0.6-1.2) mg/dl Est Cr Clr Drug Dosing ml/min Est GFR ( Amer) ml/min Est GFR (Non-Af Amer) ml/min BUN/Creatinine Ratio (10-20) Glucose (70-99(Fasting)) mg/dl Calcium (8.5-10.1) mg/dl Phosphorus (2.5-4.9) mg/dl Magnesium (1.7-2.4) mg/dl Medications Administered Current Inpatient Medications Acetaminophen (Acetaminophen 325 Mg Tab) 650 mg PO Q4H PRN PRN Reason: Pain or Fever Stop: 03/08/22 22:57 Last Admin: 02/11/22 19:59 Dose: 650 mg Albuterol (Albuterol Hfa 8 Gm Inhaler) 2 puffs INH Q6 PRN PRN Reason: Shortness Of Breath Or Wheezing Stop: 03/08/22 22:57 Albuterol (Albut/Ipratrop 3mg/0.5mg Neb 3 Ml Vial) 3 ml INH QIDR PRN; Protocol PRN Reason: Wheezing Stop: 03/08/22 22:57 Atorvastatin Calcium (Atorvastatin 20 Mg Tab) 20 mg PO QAM [facility] Stop: 03/09/22 08:59 Last Admin: 02/11/22 08:47 Dose: 20 mg Buprenorphine HCl (Buprenorphine 15 Mcg/Patch Tdsy) 15 mcg TD Q7D@0900 [facility] Stop: 03/10/22 13:59 Last Admin: 02/08/22 14:38 Dose: 15 mcg Carbidopa/Levodopa (Carbidopa/Levodopa 25/100mg Tab) 1 tab PO QID [facility] Stop: 03/08/22 22:57 Last Admin: 02/11/22 20:37 Dose: 1 tab Docusate Sodium (Docusate Sodium Syrup 100 Mg/10 Ml Udc) 50 mg PO BID PRN PRN Reason: Constipation Last Admin: 02/11/22 08:49 Dose: 50 mg Fluticasone Propionate (Fluticasone Propionate Na Spr 16 Gm Btl) 2 sprays NA DAILY [facility] Stop: 03/09/22 08:59 Last Admin: 02/11/22 08:50 Dose: 2 sprays Fluticasone/Vilanterol (Fluticasone/Vilanterol 100/25mcg 14 Puffs/Inhaler) 1 puffs INH DAILY [facility] Stop: 03/09/22 08:59 Last Admin: 02/11/22 08:50 Dose: 1 puffs Heparin Sodium (Porcine) (Heparin Sod 5,000 Unit/0.5 Ml Vial) 5,000 units SQ Q12 [facility] Stop: 03/12/22 09:14 Last Admin: 02/11/22 20:37 Dose: 5,000 units Hydroxyzine HCl (Hydroxyzine Hcl 25 Mg Tab) 25 mg PO Q6 PRN PRN Reason: .ANX/ITCH Stop: 03/08/22 22:57 Last Admin: 02/11/22 20:37 Dose: 25 mg Piperacillin Sod/Tazobactam (Sod 3.375 gm/ Dextrose) 115 mls @ 28.75 mls/hr IV Q8H [facility]; Protocol Stop: 02/17/22 03:59 Last Admin: 02/12/22 03:47 Dose: 29 mls/hr Lactobacillus Acidophilus (Advanced Probiotic 1250 Mg Capsule) 2 cap PO DAILY [facility] Stop: 03/09/22 08:59 Last Admin: 02/11/22 08:49 Dose: 2 cap Levothyroxine Sodium (Levothyroxine Sodium 50 Mcg Tablet) 50 mcg PO DAILYBB [facility] Stop: 03/09/22 06:29 Last Admin: 02/12/22 05:49 Dose: 50 mcg Linaclotide (Linaclotide 145 Mcg Capsule) 290 mcg PO DAILY [facility] Stop: 03/09/22 08:59 Last Admin: 02/11/22 08:48 Dose: 290 mcg Meclizine HCl (Meclizine Hcl 25 Mg Tab) 25 mg PO TID PRN PRN Reason: DIZZY Stop: 03/08/22 22:57 Last Admin: 02/11/22 08:49 Dose: 25 mg Metaxalone (Metaxalone 800 Mg Tablet) 800 mg PO QID [facility] Stop: 03/08/22 22:57 Last Admin: 02/11/22 19:58 Dose: 800 mg Metoprolol Tartrate (Metoprolol Tartrate 25 Mg Tab) 12.5 mg PO QAM [facility] Stop: 03/12/22 16:59 Last Admin: 02/11/22 08:47 Dose: 12.5 mg Miscellaneous (Check Buprenorphine Patch) 1 each N/A QS [facility] Stop: 03/09/22 15:59 Last Admin: 02/12/22 00:31 Dose: 1 each Miscellaneous (Remove & Waste Butrans Patch 1 Ea Ea) 1 each N/A Q7D@0859 [facility] Stop: 03/10/22 13:58 Last Admin: 02/08/22 14:38 Dose: 1 each Montelukast Sodium (Montelukast Sodium 10 Mg Tablet) 10 mg PO HS [facility] Stop: 03/08/22 22:57 Last Admin: 02/11/22 20:37 Dose: 10 mg Multivitamins/Minerals (Cerovite Adv Formula Tab) 1 tab PO DAILY [facility] Stop: 03/09/22 08:59 Last Admin: 02/11/22 08:49 Dose: 1 tab Nitroglycerin (Nitroglycerin Sl 0.4 Mg/Tab Tab) 0.4 mg SL UD PRN PRN Reason: Chest Pain Stop: 03/08/22 22:57 Ondansetron HCl (Ondansetron 4 Mg Od Tab) 4 mg PO Q12 PRN PRN Reason: Nausea Stop: 03/08/22 22:57 Pantoprazole Sodium (Pantoprazole 40 Mg Tab) 40 mg PO DAILY [facility] Stop: 03/09/22 08:59 Last Admin: 02/11/22 08:49 Dose: 40 mg Ropinirole HCl (Ropinirole Hcl 1 Mg Tablet) 2 mg PO HS [facility] Stop: 03/08/22 22:57 Last Admin: 02/11/22 20:37 Dose: 2 mg Ropinirole HCl (Ropinirole Hcl 1 Mg Tablet) 1 mg PO TIDM [facility] Stop: 03/09/22 07:59 Last Admin: 02/11/22 17:39 Dose: 1 mg Senna/Docusate Sodium (Docusate Sodium/Senna 50/8.6mg Tab) 1 tab PO BID [facility] Stop: 03/08/22 22:57 Last Admin: 02/11/22 20:37 Dose: 1 tab Triamcinolone Acetonide (Triamcinolone Acet 0.1% Cr 15 Gm Tube) 1 appln TOP BID PRN PRN Reason: FLARE UP Stop: 03/08/22 22:57 Warfarin Sodium (Warfarin Sod 2.5 Mg Tab) 2.5 mg PO DAILY@1600 [facility] Stop: 03/12/22 15:59 Last Admin: 02/11/22 17:38 Dose: 2.5 mg Warfarin Sodium (Warfarin Sod 1.25 Mg Tab) 1.25 mg PO Mo@1600 [facility] Stop: 03/14/22 15:59 (1) Rhabdomyolysis Encounter type: initial encounter (2) Fall Encounter type: initial encounter Qualified Code(s): W19.XXXA - Unspecified fall, initial encounter
[2022-02-12] MEDS ORDERED: MAGNESIUM SULFATE / D5W 1 GM/100 ML BAG IV ONE (07:55)
[2022-02-12] MEDS: CEROVITE ADV FORMULA TAB PO SCH (08:43)
[2022-02-12] MEDS: LINACLOTIDE 145 MCG CAPSULE PO SCH (08:43)
[2022-02-12] MEDS: ADVANCED PROBIOTIC 1250 MG CAPSULE PO SCH (08:43)
[2022-02-12] MEDS: METAXALONE 800 MG TABLET PO SCH ×4 (08:44→20:51)
[2022-02-12] MEDS: PANTOprazole 40 MG TAB PO SCH (08:44)
[2022-02-12] MEDS: DOCUSATE SODIUM/SENNA 50/8.6MG TAB PO SCH ×2 (08:44→20:50)
[2022-02-12] MEDS: METOPROLOL TARTRATE 25 MG TAB PO SCH ×3 (08:45→20:52)
[2022-02-12] MEDS: ATORVASTATIN 20 MG TAB PO SCH (08:45)
[2022-02-12] MEDS: CARBIDOPA/LEVODOPA 25/100MG TAB PO SCH ×4 (08:45→20:53)
[2022-02-12] MEDS: HEPARIN SOD 5,000 UNIT/0.5 ML VIAL SQ SCH ×2 (08:45→20:50)
[2022-02-12] MEDS: rOPINIRole HCL 1 MG TABLET PO SCH ×4 (08:47→20:51)
[2022-02-12] MEDS: FLUTICASONE PROPIONATE NA SPR 16 GM BTL SCH (10:53)
[2022-02-12] MEDS: FLUTICASONE/VILANTEROL 100/25MCG 14 PUFFS/INHALER INH SCH (10:54)
[2022-02-12] MEDS ORDERED: WARFARIN SOD 1.25 MG TAB PO SCH (16:00)
[2022-02-12] MEDS: ACETAMINOPHEN 325 MG TAB PO PRN (16:06)
[2022-02-12] MEDS: WARFARIN SOD 2.5 MG TAB PO SCH (16:08)
[2022-02-12] MEDS: MONTELUKAST SODIUM 10 MG TABLET PO SCH (20:51)
[2022-02-12] MEDS ORDERED: SODIUM CHLORIDE 0.9% 500 ML IV SCH (22:45)
[2022-02-13] MEDS: CHECK BUPRENORPHINE PATCH SCH ×4 (00:21→23:27)
[2022-02-13] MEDS: PIPERACILLIN/TAZOBACTAM 3.375 GM in DEXTROSE 5% 100 ML IV SCH ×3 (03:47→20:38)
[2022-02-13] MEDS ORDERED: SODIUM CHLORIDE 0.9% 1000ML 1,000 ML IV SCH (04:00)
[2022-02-13] MEDS: LEVOTHYROXINE SODIUM 50 MCG TABLET PO SCH (05:41)
[2022-02-13] MEDS: CARBIDOPA/LEVODOPA 25/100MG TAB PO SCH ×4 (08:55→20:31)
[2022-02-13] MEDS: ATORVASTATIN 20 MG TAB PO SCH (08:55)
[2022-02-13] MEDS: METAXALONE 800 MG TABLET PO SCH ×4 (08:55→20:34)
[2022-02-13] MEDS: FLUTICASONE/VILANTEROL 100/25MCG 14 PUFFS/INHALER INH SCH (08:56)
[2022-02-13] MEDS: METOPROLOL TARTRATE 25 MG TAB PO SCH ×2 (08:56→20:32)
[2022-02-13] MEDS: FLUTICASONE PROPIONATE NA SPR 16 GM BTL SCH (08:56)
[2022-02-13] MEDS: HEPARIN SOD 5,000 UNIT/0.5 ML VIAL SQ SCH (08:58)
[2022-02-13] MEDS: ADVANCED PROBIOTIC 1250 MG CAPSULE PO SCH (08:58)
[2022-02-13] MEDS: DOCUSATE SODIUM/SENNA 50/8.6MG TAB PO SCH ×2 (08:58→20:31)
[2022-02-13] MEDS: PANTOprazole 40 MG TAB PO SCH (08:58)
[2022-02-13] MEDS: LINACLOTIDE 145 MCG CAPSULE PO SCH (08:59)
[2022-02-13] MEDS: CEROVITE ADV FORMULA TAB PO SCH (08:59)
[2022-02-13] MEDS: rOPINIRole HCL 1 MG TABLET PO SCH ×4 (09:00→20:32)
[2022-02-13 10:02] LABS: Prothrombin Time 20.3 Seconds (9.0-12.0)
--- NOTE | 2022-02-13 13:29 | Hospitalist Progress Note ---
Date of Service February 13, 2022 Assessment & Plan (1) Fall: (2) Elevated INR: (3) Rhabdomyolysis: (4) JAEL (acute kidney injury): (5) Acute hypokalemia: (6) Acute UTI: Plan: This is a 71-year-old female who presents with fall. 1. Fall. History of ambulatory dysfunction, ambulates with walker, presents with fall, most likely secondary to urinary tract infection. PT, OT when stable. Monitor in the hospital. 2. Possible sepsis with elevated white count, tachycardia, blood pressure on lower side. UTI Urinalysis positive. Urine culture positive for Proteus Mirabilis - pansensitive ER Empirically started Zosyn, continued Bacteremia Blood culture (02/06) positive for gram-positive bacilli on admission - Clostridium perfringens Repeat blood culture (02/07) NGTD Continued Zosyn since admission. Vancomycin added when bacteremia was confirmed. Vancomycin stopped, February 09. Follow final culture results Obtained echo There is no evidence of mass or vegetation. This does not rule out endocarditis. There is mild concentric LVH. EF 60 to 65%. RV systolic function is normal. LA size is normal. RA size is normal. Mild aortic regurg. ID consulted The presence of Clostridium perfringens in the patient's blood is concerning for concomitant/traumatic?, Necrotizing soft tissue infection or an intra-abdominal infection. Recommend to examine the patient closely for signs/symptoms of a soft tissue infection or worsening intra-abdominal infection. Consider adding clindamycin and obtaining a surgical evaluation. Until necrotizing soft tissue/GI infection is ruled out, continue Zosyn if no source of infection can be identified, will likely transition to PCN plus clindamycin to complete a 14- day course. Of note, if the patient has not had recent colonoscopy, this should be pursued/as an outpatient. Clindamycin added to Zosyn Physical exam performed with help of nursing staff, no significant wound or soft tissue infection identified. Patient was also examined by wound nurse earlier today (see images), will further discuss with her if any concern tomorrow Contacted ID physician, to further discuss, waiting for reply 3. Hypokalemia. Replace and monitor 4. Acute kidney injury - resolved Baseline creatinine of 0.9, On admission creatinine of 1.5. Received fluids. Avoid nephrotoxic agents. Holding diuretics. Current Cr 0.7 5. Elevated CPK, mild rhabdomyolysis. Follow the repeat CPK. getting fluids. Mild elevation in bilirubin. Mild elev. in troponin secondary to rhabdo. CK, trop trended down Echo obtained, as above 6. Chronic diastolic CHF, holding the diuretics since admission. Getting fluids. Monitor for any volume overload. been on lasix 40-80 mg chronically. Now holding any lasix and BP persistently on lower side Interestingly patient also lost a significant amount of weight since last admission. Reviewing EMR, during last admission patient was about 88 kg, now she is about 80 kg. During last admission she also had significant lower extremity edema, now trace/no lower extremity edema. Continue to hold Lasix for now May resume Lasix, likely at lower dose, once blood pressure improved 7. Hypertension. Blood pressure on low side since admission. Was on metoprolol 25 mg in the a.m. and 12.5 mg in the p.m. Since last admission 12.5 mg HS. Changed metoprolol to 6.25 mg bid d/t lower BP and no tachycardia. Hypothyroidism. Continue home Synthroid. History of Parkinson. Continue home carbidopa/levodopa. Hyperlipidemia. Continue statin. Chronic pain. Continue home pain medications. Gastroesophageal reflux disease. Continue omeprazole. Restless leg syndrome: Continue ropinirole. History of deep venous thrombosis and pulmonary embolism. On Coumadin. Follow PT/INR. History of hypercoagulability. History of pulmonary embolus and deep venous thrombosis. On Coumadin. INR elevated on admission, and vit. K given. INR now therapeutic, resumed warfarin, monitor INR History of Edenilson-Danlos syndrome. History of asthma. Stable. Continue home medications. Chronic anemia. Follow the H and H. History of gastric bypass. History of peripheral vascular disease. History of thoracic aortic aneurysm, needs to follow. DVT prophylaxis. On Coumadin. DISPOSITION:tele floor. Plan to DC to [facility] when medically stable full code Admission and Anticipated Discharge Date Admission Date: February 06, 2022 Subjective Patient seen in follow-up of fall, UTI Blood culture positive for gram-positive bacilli (Clostridium) on admission Patient is currently sitting up in chair, eating, in no acute distress Denies fevers, chills, chest pain, shortness of breath Denies abdominal pain, nausea or vomiting She feels weak, needs a lot of assistance with ambulation Review of Systems Review of Systems: All systems reviewed & are unremarkable except as noted in Subjective Physical Exam Physical Exam: GENERAL: obese F not in acute distress. HEENT: NC/AT. EOMI, Pupils equal, round and reactive to light. Oral mucosa dry. NECK: No JVD, no neck masses. CARDIOVASCULAR: S1 and S2 heard. Regular rate and rhythm. No murmur, no gallop. RESPIRATORY: Normal AP diameter. No accessory muscle use. No wheezing, no crackles. ABDOMEN: Soft, bowel sounds present, nontender, no distention. NEURO: Alert and oriented. No facial droop. Obeys simple commands. Insight is good. Speaks in low volumes. Moves extremities. EXTREMITIES: no bilateral lower extremity edema present with some mild erythematous changes in the left lower extremity. Results & Data Results & Data ([facility]) Vital Signs (Past 12 Hours) Vital Signs Temp Pulse Pulse Resp BP BP Pulse Ox 02/13/22 08:00 02/13/22 08:00 67 02/13/22 11:30 36.6 C 70 18 94/55 L 96 02/13/22 07:34 36.6 C 72 18 94/60 L 96 02/13/22 02:54 36.6 C 70 18 95/60 L O2 Del Method 02/13/22 08:00 Room Air 02/13/22 08:00 02/13/22 11:30 Room Air 02/13/22 07:34 Room Air 02/13/22 02:54 Room Air Laboratory Results 02/13/22 Range/Units 09:17 PT 20.3 H (9.0-12.0) Seconds INR 2.0 H (0.9-1.1) Medications Administered Current Inpatient Medications Acetaminophen (Acetaminophen 325 Mg Tab) 650 mg PO Q4H PRN PRN Reason: Pain or Fever Stop: 03/08/22 22:57 Last Admin: 02/12/22 16:06 Dose: 650 mg Albuterol (Albuterol Hfa 8 Gm Inhaler) 2 puffs INH Q6 PRN PRN Reason: Shortness Of Breath Or Wheezing Stop: 03/08/22 22:57 Albuterol (Albut/Ipratrop 3mg/0.5mg Neb 3 Ml Vial) 3 ml INH QIDR PRN; Protocol PRN Reason: Wheezing Stop: 03/08/22 22:57 Atorvastatin Calcium (Atorvastatin 20 Mg Tab) 20 mg PO QAM [facility] Stop: 03/09/22 08:59 Last Admin: 02/13/22 08:55 Dose: 20 mg Buprenorphine HCl (Buprenorphine 15 Mcg/Patch Tdsy) 15 mcg TD Q7D@0900 [facility] Stop: 03/10/22 13:59 Last Admin: 02/08/22 14:38 Dose: 15 mcg Carbidopa/Levodopa (Carbidopa/Levodopa 25/100mg Tab) 1 tab PO QID [facility] Stop: 03/08/22 22:57 Last Admin: 02/13/22 08:55 Dose: 1 tab Docusate Sodium (Docusate Sodium Syrup 100 Mg/10 Ml Udc) 50 mg PO BID PRN PRN Reason: Constipation Last Admin: 02/11/22 08:49 Dose: 50 mg Fluticasone Propionate (Fluticasone Propionate Na Spr 16 Gm Btl) 2 sprays NA DAILY [facility] Stop: 03/09/22 08:59 Last Admin: 02/13/22 08:56 Dose: 2 sprays Fluticasone/Vilanterol (Fluticasone/Vilanterol 100/25mcg 14 Puffs/Inhaler) 1 puffs INH DAILY [facility] Stop: 03/09/22 08:59 Last Admin: 02/13/22 08:56 Dose: 1 puffs Hydroxyzine HCl (Hydroxyzine Hcl 25 Mg Tab) 25 mg PO Q6 PRN PRN Reason: .ANX/ITCH Stop: 03/08/22 22:57 Last Admin: 02/11/22 20:37 Dose: 25 mg Piperacillin Sod/Tazobactam (Sod 3.375 gm/ Dextrose) 115 mls @ 28.75 mls/hr IV Q8H [facility]; Protocol Stop: 02/17/22 03:59 Last Infusion: 02/13/22 08:52 Dose: Infused Sodium Chloride (Nss 1000ml) 1,000 mls @ 80 mls/hr IV .[id number] [facility] Stop: 02/13/22 16:29 Last Admin: 02/13/22 04:26 Dose: 80 mls/hr Lactobacillus Acidophilus (Advanced Probiotic 1250 Mg Capsule) 2 cap PO DAILY [facility] Stop: 03/09/22 08:59 Last Admin: 02/13/22 08:58 Dose: 2 cap Levothyroxine Sodium (Levothyroxine Sodium 50 Mcg Tablet) 50 mcg PO DAILYBB [facility] Stop: 03/09/22 06:29 Last Admin: 02/13/22 05:41 Dose: 50 mcg Linaclotide (Linaclotide 145 Mcg Capsule) 290 mcg PO DAILY [facility] Stop: 03/09/22 08:59 Last Admin: 02/13/22 08:59 Dose: 290 mcg Meclizine HCl (Meclizine Hcl 25 Mg Tab) 25 mg PO TID PRN PRN Reason: DIZZY Stop: 03/08/22 22:57 Last Admin: 02/11/22 08:49 Dose: 25 mg Metaxalone (Metaxalone 800 Mg Tablet) 800 mg PO QID [facility] Stop: 03/08/22 22:57 Last Admin: 02/13/22 08:55 Dose: 800 mg Metoprolol Tartrate (Metoprolol Tartrate 25 Mg Tab) 6.25 mg PO BID [facility] Stop: 03/14/22 08:14 Last Admin: 02/13/22 08:56 Dose: 6.25 mg Miscellaneous (Check Buprenorphine Patch) 1 each N/A QS [facility] Stop: 03/09/22 15:59 Last Admin: 02/13/22 09:00 Dose: 1 each Miscellaneous (Remove & Waste Butrans Patch 1 Ea Ea) 1 each N/A Q7D@0859 [facility] Stop: 03/10/22 13:58 Last Admin: 02/08/22 14:38 Dose: 1 each Montelukast Sodium (Montelukast Sodium 10 Mg Tablet) 10 mg PO HS [facility] Stop: 03/08/22 22:57 Last Admin: 02/12/22 20:51 Dose: 10 mg Multivitamins/Minerals (Cerovite Adv Formula Tab) 1 tab PO DAILY [facility] Stop: 03/09/22 08:59 Last Admin: 02/13/22 08:59 Dose: 1 tab Nitroglycerin (Nitroglycerin Sl 0.4 Mg/Tab Tab) 0.4 mg SL UD PRN PRN Reason: Chest Pain Stop: 03/08/22 22:57 Ondansetron HCl (Ondansetron 4 Mg Od Tab) 4 mg PO Q12 PRN PRN Reason: Nausea Stop: 03/08/22 22:57 Pantoprazole Sodium (Pantoprazole 40 Mg Tab) 40 mg PO DAILY [facility] Stop: 03/09/22 08:59 Last Admin: 02/13/22 08:58 Dose: 40 mg Ropinirole HCl (Ropinirole Hcl 1 Mg Tablet) 2 mg PO HS [facility] Stop: 03/08/22 22:57 Last Admin: 02/12/22 20:51 Dose: 2 mg Ropinirole HCl (Ropinirole Hcl 1 Mg Tablet) 1 mg PO TIDM [facility] Stop: 03/09/22 07:59 Last Admin: 02/13/22 09:00 Dose: 1 mg Senna/Docusate Sodium (Docusate Sodium/Senna 50/8.6mg Tab) 1 tab PO BID [facility] Stop: 03/08/22 22:57 Last Admin: 02/13/22 08:58 Dose: 1 tab Triamcinolone Acetonide (Triamcinolone Acet 0.1% Cr 15 Gm Tube) 1 appln TOP BID PRN PRN Reason: FLARE UP Stop: 03/08/22 22:57 Warfarin Sodium (Warfarin Sod 2.5 Mg Tab) 2.5 mg PO DAILY@1600 [facility] Stop: 03/12/22 15:59 Last Admin: 02/12/22 16:08 Dose: 2.5 mg Warfarin Sodium (Warfarin Sod 1.25 Mg Tab) 1.25 mg PO Mo@1600 [facility] Stop: 03/14/22 15:59 Last Admin: 02/12/22 16:08 Dose: 1.25 mg (1) Rhabdomyolysis Encounter type: initial encounter (2) Fall Encounter type: initial encounter Qualified Code(s): W19.XXXA - Unspecified fall, initial encounter
[2022-02-13] MEDS: WARFARIN SOD 2.5 MG TAB PO SCH (17:41)
[2022-02-13] MEDS: CLINDAMYCIN HCL 150 MG CAP PO SCH ×2 (18:53→23:27)
[2022-02-13] MEDS: ALBUMIN 25% 100 mL 25 GM/100 ML VIAL IV SCH (18:53)
[2022-02-13] MEDS: MONTELUKAST SODIUM 10 MG TABLET PO SCH (20:33)
[2022-02-14] MEDS: ACETAMINOPHEN 325 MG TAB PO PRN ×2 (00:50→21:32)
[2022-02-14] MEDS: ALBUMIN 25% 100 mL 25 GM/100 ML VIAL IV SCH ×3 (01:59→17:29)
[2022-02-14] MEDS: PIPERACILLIN/TAZOBACTAM 3.375 GM in DEXTROSE 5% 100 ML IV SCH ×3 (04:01→20:05)
[2022-02-14] MEDS: LEVOTHYROXINE SODIUM 50 MCG TABLET PO SCH (06:19)
[2022-02-14] MEDS: CLINDAMYCIN HCL 150 MG CAP PO SCH ×4 (06:19→23:34)
[2022-02-14 07:19] LABS: Hematocrit (blood only) 25.9 % (34.1-44.9); Mean Corpuscular Hemoglobin 29.4 pg (25.0-34.0); Mean Corpuscular Hgb Conc 30.9 g/dL (32.0-36.0); Mean Corpuscular Volume 95.2 fL (80.0-100.0); Mean Platelet Volume 9.9 fL (9.4-12.3); Platelet Count 175 K/uL (130-400); RDW Coefficient of Variation 16.2 % (11.5-14.5); RDW Standard Deviation 53.9 fL (36.4-46.3); Red Blood Count 2.72 M/uL (3.93-5.22); White Blood Count 7.84 K/ul (4.8-10.8)
[2022-02-14 07:31] LABS: Prothrombin Time 20.9 Seconds (9.0-12.0)
[2022-02-14 07:40] LABS: BUN Creatinine Ratio 19.7 (10-20); Calcium 8.5 mg/dl (8.5-10.1); Creatinine Clr Calc Pharmacy 82.2 ml/min; Est GFR (African American) 105.7 ml/min; Est GFR (Non-African American) 91.2 ml/min; Magnesium 1.6 mg/dl (1.7-2.4); Phosphorus 2.1 mg/dl (2.5-4.9); Potassium 3.8 mmol/L (3.5-5.1)
[2022-02-14] MEDS: CHECK BUPRENORPHINE PATCH SCH ×3 (08:30→23:34)
[2022-02-14] MEDS: rOPINIRole HCL 1 MG TABLET PO SCH ×4 (08:31→21:37)
[2022-02-14] MEDS: DOCUSATE SODIUM/SENNA 50/8.6MG TAB PO SCH ×2 (08:32→21:34)
[2022-02-14] MEDS: ATORVASTATIN 20 MG TAB PO SCH (08:32)
[2022-02-14] MEDS: CARBIDOPA/LEVODOPA 25/100MG TAB PO SCH ×4 (08:32→21:34)
[2022-02-14] MEDS: FLUTICASONE PROPIONATE NA SPR 16 GM BTL SCH (08:33)
[2022-02-14] MEDS: FLUTICASONE/VILANTEROL 100/25MCG 14 PUFFS/INHALER INH SCH (08:33)
[2022-02-14] MEDS: LINACLOTIDE 145 MCG CAPSULE PO SCH (08:34)
[2022-02-14] MEDS: METAXALONE 800 MG TABLET PO SCH ×4 (08:34→21:35)
[2022-02-14] MEDS: ADVANCED PROBIOTIC 1250 MG CAPSULE PO SCH (08:34)
[2022-02-14] MEDS: PANTOprazole 40 MG TAB PO SCH (08:35)
[2022-02-14] MEDS: CEROVITE ADV FORMULA TAB PO SCH (08:35)
[2022-02-14] MEDS: METOPROLOL TARTRATE 25 MG TAB PO SCH ×2 (08:35→21:36)
[2022-02-14] MEDS: hydrOXYzine HCl 25 MG TAB PO PRN (09:26)
[2022-02-14] MEDS: WARFARIN SOD 2.5 MG TAB PO SCH (16:00)
[2022-02-14] MEDS ORDERED: BUPRENORPHINE TD SCH (16:00)
[2022-02-14] MEDS ORDERED: TDSY TD SCH (16:00)
--- NOTE | 2022-02-14 17:13 | Hospitalist Progress Note ---
Date of Service February 14, 2022 Assessment & Plan (1) Fall: (2) Elevated INR: (3) Rhabdomyolysis: (4) JAEL (acute kidney injury): (5) Acute hypokalemia: (6) Acute UTI: Plan Fall at home with prolonged immobility leading to sepsis 2/2 UTI and rhabdoomyolysis. 1. Fall. History of ambulatory dysfunction, ambulates with walker, presents with fall, most likely secondary to urinary tract infection. PT, OT when stable. Likely needs rehab again. 2. Possible sepsis with elevated white count, tachycardia on admission. UTI Urinalysis positive. Urine culture positive for Proteus Mirabilis - pansensitive ER Empirically started Zosyn, continued in setting of bacteremia. Bacteremia Blood culture (02/06) positive for gram-positive bacilli on admission - Clostridium perfringens Repeat blood culture (02/07) NGTD Continued Zosyn since admission. Vancomycin added when bacteremia was confirmed. Vancomycin stopped, February 09. Obtained echo There is no evidence of mass or vegetation. This does not rule out endocarditis. There is mild concentric LVH. EF 60 to 65%. RV systolic function is normal. LA size is normal. RA size is normal. Mild aortic regurg. ID consulted The presence of Clostridium perfringens in the patient's blood is concerning for concomitant/traumatic?, Necrotizing soft tissue infection or an intra-abdominal infection. Neither of these are present. Cont current abx pending updated thoughts from ID. Clindamycin added to Zosyn 3. Acute kidney injury - resolved Baseline creatinine of 0.9, On admission creatinine of 1.5. Received fluids. Avoid nephrotoxic agents. Holding diuretics. Current Cr 0.7 5. Nontraumatic rhabdomyolysis. Follow the repeat CPK. getting fluids. Mild elevation in bilirubin. Mild elev. in troponin secondary to rhabdo. CK, trop trended down by 50% last checked on 02/07 6. Chronic diastolic CHF, holding the diuretics since admission. Getting fluids. Monitor for any volume overload. been on lasix 40-80 mg chronically. Now holding any lasix and BP persistently on lower side Interestingly patient also lost a significant amount of weight since last admission. Reviewing EMR, during last admission patient was about 88 kg, now she is about 80 kg. During last admission she also had significant lower extremity edema, now trace/no lower extremity edema. Resume home lasix now. 7. Hypertension. Blood pressure on low side since admission. Was on metoprolol 25 mg in the a.m. and 12.5 mg in the p.m. Since last admission 12.5 mg HS. Changed metoprolol to 6.25 mg bid d/t lower BP and no tachycardia. Hypothyroidism. chronic, stable. Continue home Synthroid. History of Parkinson.chronic, stable. Continue home carbidopa/levodopa. Hyperlipidemia. chronic, stable. Continue statin. Chronic pain. Appears controlled. Continue home pain medications. Gastroesophageal reflux disease. Continue omeprazole. Restless leg syndrome: Continue ropinirole. History of deep venous thrombosis and pulmonary embolism. On Coumadin. Follow PT/INR. History of hypercoagulability. History of pulmonary embolus and deep venous thrombosis. On Coumadin. INR elevated on admission, and vit. K given. INR now therapeutic, resumed warfarin, monitor INR History of Edenilson-Danlos syndrome. History of asthma. Stable. Continue home medications. Chronic anemia. Follow the H and H. History of gastric bypass. History of peripheral vascular disease. History of thoracic aortic aneurysm, needs to follow. DVT prophylaxis. Coumadin. DISPOSITION:tele floor. Plan to DC to [facility] when medically stable full code [facility]y Breen [facility] and Anticipated Discharge Date Admission Date: February 06, 2022 Subjective Patient seen in follow-up of fall, UTI Blood culture positive for gram-positive bacilli (Clostridium) on admission Patient is able to go through the entire story today of how she fell in her shower and sat there for hours on the floor Sometimes sitting on top of her right leg which caused significant numbness. She reports redness in her legs which has subsided. She has no wounds indicating any trauma, originally of concern with presence of Clostridium in her blood Additionally, she became emotional stating "I don't get the emotional support I need to move around" Reports "there are so many people telling me I can't do it" Just got out of [facility] prior to her fall at home and was ambulating Hasn't been able to stand or walk with PT here. Reports being fearful of falling. Review of Systems Review of Systems: All systems were reviewed and negative except as indicated above. Physical Exam Physical Exam: CONSTITUTIONAL: obese, vitals as above, generally well- appearing, NAD EYES: normal conjunctivae, no scleral icterus ENT: external ear and nose normal, MMM NECK: trachea midline RESPIRATORY: clear to auscultation bilaterally, no crackles, rales or wheezes, normal respiratory effort CARDIOVASCULAR: regular rate and rhythm, 3/6 CELINA, no gallops or rubs, no JVD, no peripheral edema, CHEST: inspection of chest was normal GASTROINTESTINAL: soft, nontender, ND, no guarding MUSCULOSKELETAL: moves extremities equally but generalized weakness and decreased strength in lower extrmities that is symmetric. head is normocephalic and atraumatic SKIN: warm and dry, no open wounds or erythema NEUROLOGIC: patellar DTRs 2+ bilat. No facial palsy, no dysarthria. CN 2-12 grossly intact, no sensory deficit, normal cognition, normal speech, no tremor PSYCHIATRIC: alert cooperative and oriented to person, place and time. Euthymic mood, makes good eye contact, language grossly intact, recent and remote memory grossly intact. Results & Data Results & Data ([facility]) Vital Signs (Past 12 Hours) Vital Signs Temp Pulse Resp BP BP Pulse Ox O2 Del Method 02/14/22 15:45 36.7 C 71 17 100/63 98 Room Air 02/14/22 12:39 36.8 C 74 19 106/68 98 Room Air 02/14/22 09:31 36.7 C 79 20 98/64 L 96 Room Air 02/14/22 07:24 36.6 C 71 18 99/63 L 96 Room Air Laboratory Results Short CBC 02/14/22 Range/Units 06:48 WBC 7.84 (4.8-10.8) K/ul Hgb 8.0 L (12.0-16.0) g/dl Hct 25.9 L (34.1-44.9) % Plt Count 175 (130-400) K/uL BMP 02/14/22 06:48 Sodium 135 L Potassium 3.8 Chloride 108 H Carbon Dioxide 22 BUN 12 Creatinine 0.61 Glucose 90 Calcium 8.5 Medications Administered Current Inpatient Medications Acetaminophen (Acetaminophen 325 Mg Tab) 650 mg PO Q4H PRN PRN Reason: Pain or Fever Stop: 03/08/22 22:57 Last Admin: 02/14/22 00:50 Dose: 650 mg Albuterol (Albuterol Hfa 8 Gm Inhaler) 2 puffs INH Q6 PRN PRN Reason: Shortness Of Breath Or Wheezing Stop: 03/08/22 22:57 Albuterol (Albut/Ipratrop 3mg/0.5mg Neb 3 Ml Vial) 3 ml INH QIDR PRN; Protocol PRN Reason: Wheezing Stop: 03/08/22 22:57 Atorvastatin Calcium (Atorvastatin 20 Mg Tab) 20 mg PO QAM [facility] Stop: 03/09/22 08:59 Last Admin: 02/14/22 08:32 Dose: 20 mg Buprenorphine HCl (Buprenorphine 15 Mcg/Patch Tdsy) 15 mcg TD Q7D@0900 [facility] Stop: 03/16/22 15:59 Last Admin: 02/14/22 15:58 Dose: 15 mcg Carbidopa/Levodopa (Carbidopa/Levodopa 25/100mg Tab) 1 tab PO QID [facility] Stop: 03/08/22 22:57 Last Admin: 02/14/22 16:01 Dose: 1 tab Clindamycin HCl (Clindamycin Hcl 150 Mg Cap) 150 mg PO Q6 [facility] Stop: 02/27/22 17:59 Last Admin: 02/14/22 11:44 Dose: 150 mg Docusate Sodium (Docusate Sodium Syrup 100 Mg/10 Ml Udc) 50 mg PO BID PRN PRN Reason: Constipation Last Admin: 02/11/22 08:49 Dose: 50 mg Fluticasone Propionate (Fluticasone Propionate Na Spr 16 Gm Btl) 2 sprays NA DAILY [facility] Stop: 03/09/22 08:59 Last Admin: 02/14/22 08:33 Dose: 2 sprays Fluticasone/Vilanterol (Fluticasone/Vilanterol 100/25mcg 14 Puffs/Inhaler) 1 puffs INH DAILY [facility] Stop: 03/09/22 08:59 Last Admin: 02/14/22 08:33 Dose: 1 puffs Hydroxyzine HCl (Hydroxyzine Hcl 25 Mg Tab) 25 mg PO Q6 PRN PRN Reason: .ANX/ITCH Stop: 03/08/22 22:57 Last Admin: 02/14/22 09:26 Dose: 25 mg Piperacillin Sod/Tazobactam (Sod 3.375 gm/ Dextrose) 115 mls @ 28.75 mls/hr IV Q8H [facility]; Protocol Stop: 02/17/22 03:59 Last Infusion: 02/14/22 16:02 Dose: Infused Albumin Human (Albumin 25% 100 Ml) 25 gm in 100 mls @ 50 mls/hr IV Q8H [facility] Stop: 02/16/22 16:44 Last Infusion: 02/14/22 11:39 Dose: Infused Lactobacillus Acidophilus (Advanced Probiotic 1250 Mg Capsule) 2 cap PO DAILY [facility] Stop: 03/09/22 08:59 Last Admin: 02/14/22 08:34 Dose: 2 cap Levothyroxine Sodium (Levothyroxine Sodium 50 Mcg Tablet) 50 mcg PO DAILYBB [facility] Stop: 03/09/22 06:29 Last Admin: 02/14/22 06:19 Dose: 50 mcg Linaclotide (Linaclotide 145 Mcg Capsule) 290 mcg PO DAILY [facility] Stop: 03/09/22 08:59 Last Admin: 02/14/22 08:34 Dose: 290 mcg Meclizine HCl (Meclizine Hcl 25 Mg Tab) 25 mg PO TID PRN PRN Reason: DIZZY Stop: 03/08/22 22:57 Last Admin: 02/11/22 08:49 Dose: 25 mg Metaxalone (Metaxalone 800 Mg Tablet) 800 mg PO QID [facility] Stop: 03/08/22 22:57 Last Admin: 02/14/22 16:01 Dose: 800 mg Metoprolol Tartrate (Metoprolol Tartrate 25 Mg Tab) 6.25 mg PO BID [facility] Stop: 03/14/22 08:14 Last Admin: 02/14/22 08:35 Dose: Not Given Miscellaneous (Check Buprenorphine Patch) 1 each N/A QS [facility] Stop: 03/09/22 15:59 Last Admin: 02/14/22 15:59 Dose: 1 each Miscellaneous (Remove & Waste Butrans Patch 1 Ea Ea) 1 each N/A Q7D@0859 [facility] Stop: 03/16/22 15:58 Last Admin: 02/14/22 15:58 Dose: 1 each Montelukast Sodium (Montelukast Sodium 10 Mg Tablet) 10 mg PO HS [facility] Stop: 03/08/22 22:57 Last Admin: 02/13/22 20:33 Dose: 10 mg Multivitamins/Minerals (Cerovite Adv Formula Tab) 1 tab PO DAILY [facility] Stop: 03/09/22 08:59 Last Admin: 02/14/22 08:35 Dose: 1 tab Nitroglycerin (Nitroglycerin Sl 0.4 Mg/Tab Tab) 0.4 mg SL UD PRN PRN Reason: Chest Pain Stop: 03/08/22 22:57 Ondansetron HCl (Ondansetron 4 Mg Od Tab) 4 mg PO Q12 PRN PRN Reason: Nausea Stop: 03/08/22 22:57 Pantoprazole Sodium (Pantoprazole 40 Mg Tab) 40 mg PO DAILY [facility] Stop: 03/09/22 08:59 Last Admin: 02/14/22 08:35 Dose: 40 mg Ropinirole HCl (Ropinirole Hcl 1 Mg Tablet) 2 mg PO HS [facility] Stop: 03/08/22 22:57 Last Admin: 02/13/22 20:32 Dose: 2 mg Ropinirole HCl (Ropinirole Hcl 1 Mg Tablet) 1 mg PO TIDM [facility] Stop: 03/09/22 07:59 Last Admin: 02/14/22 16:01 Dose: 1 mg Senna/Docusate Sodium (Docusate Sodium/Senna 50/8.6mg Tab) 1 tab PO BID [facility] Stop: 03/08/22 22:57 Last Admin: 02/14/22 08:32 Dose: 1 tab Triamcinolone Acetonide (Triamcinolone Acet 0.1% Cr 15 Gm Tube) 1 appln TOP BID PRN PRN Reason: FLARE UP Stop: 03/08/22 22:57 Warfarin Sodium (Warfarin Sod 2.5 Mg Tab) 2.5 mg PO DAILY@1600 [facility] Stop: 03/12/22 15:59 Last Admin: 02/14/22 16:00 Dose: 2.5 mg Warfarin Sodium (Warfarin Sod 1.25 Mg Tab) 1.25 mg PO Mo@1600 [facility] Stop: 03/14/22 15:59 Last Admin: 02/12/22 16:08 Dose: 1.25 mg (1) Rhabdomyolysis Encounter type: initial encounter (2) Fall Encounter type: initial encounter Qualified Code(s): W19.XXXA - Unspecified fall, initial encounter
[2022-02-14] MEDS: MONTELUKAST SODIUM 10 MG TABLET PO SCH (21:36)
[2022-02-15] MEDS: PIPERACILLIN/TAZOBACTAM 3.375 GM in DEXTROSE 5% 100 ML IV SCH ×3 (03:48→21:19)
[2022-02-15] MEDS: ACETAMINOPHEN 325 MG TAB PO PRN (03:50)
[2022-02-15] MEDS: CLINDAMYCIN HCL 150 MG CAP PO SCH ×3 (05:35→17:41)
[2022-02-15] MEDS: LEVOTHYROXINE SODIUM 50 MCG TABLET PO SCH (05:35)
[2022-02-15 07:02] LABS: Hematocrit (blood only) 24.6 % (34.1-44.9); Hemoglobin 7.5 g/dl (12.0-16.0); Mean Corpuscular Hemoglobin 29.4 pg (25.0-34.0); Mean Corpuscular Hgb Conc 30.5 g/dL (32.0-36.0); Mean Corpuscular Volume 96.5 fL (80.0-100.0); Mean Platelet Volume 9.5 fL (9.4-12.3); Platelet Count 161 K/uL (130-400); RDW Coefficient of Variation 16.6 % (11.5-14.5); RDW Standard Deviation 55.6 fL (36.4-46.3); Red Blood Count 2.55 M/uL (3.93-5.22); White Blood Count 6.75 K/ul (4.8-10.8)
[2022-02-15 07:16] LABS: Prothrombin Time 20.2 Seconds (9.0-12.0)
[2022-02-15 07:21] LABS: BUN Creatinine Ratio 15.3 (10-20); Calcium 8.7 mg/dl (8.5-10.1); Creatinine Clr Calc Pharmacy 84.7 ml/min; Est GFR (African American) 106.9 ml/min; Est GFR (Non-African American) 92.2 ml/min
[2022-02-15] MEDS: FLUTICASONE/VILANTEROL 100/25MCG 14 PUFFS/INHALER INH SCH (08:59)
[2022-02-15] MEDS: FLUTICASONE PROPIONATE NA SPR 16 GM BTL SCH (08:59)
[2022-02-15] MEDS: PANTOprazole 40 MG TAB PO SCH (09:00)
[2022-02-15] MEDS: CHECK BUPRENORPHINE PATCH SCH ×2 (09:00→16:28)
[2022-02-15] MEDS: FUROSEMIDE 40 MG TAB PO SCH (09:00)
[2022-02-15] MEDS: METOPROLOL TARTRATE 25 MG TAB PO SCH ×2 (09:01→21:26)
[2022-02-15] MEDS: METAXALONE 800 MG TABLET PO SCH ×4 (09:01→21:25)
[2022-02-15] MEDS: ADVANCED PROBIOTIC 1250 MG CAPSULE PO SCH (09:02)
[2022-02-15] MEDS: DOCUSATE SODIUM/SENNA 50/8.6MG TAB PO SCH ×2 (09:02→21:24)
[2022-02-15] MEDS: CEROVITE ADV FORMULA TAB PO SCH (09:02)
[2022-02-15] MEDS: CARBIDOPA/LEVODOPA 25/100MG TAB PO SCH ×4 (09:02→21:23)
[2022-02-15] MEDS: ATORVASTATIN 20 MG TAB PO SCH (09:03)
[2022-02-15] MEDS: LINACLOTIDE 145 MCG CAPSULE PO SCH (09:03)
[2022-02-15] MEDS: rOPINIRole HCL 1 MG TABLET PO SCH ×4 (09:03→21:27)
[2022-02-15 12:24] LABS: Magnesium 1.7 mg/dl (1.7-2.4)
[2022-02-15] MEDS: WARFARIN SOD 2.5 MG TAB PO SCH (16:27)
--- NOTE | 2022-02-15 19:30 | Hospitalist Progress Note ---
Date of Service February 15, 2022 Assessment & Plan (1) Fall: (2) Elevated INR: (3) Rhabdomyolysis: (4) JAEL (acute kidney injury): (5) Acute hypokalemia: (6) Acute UTI: (7) Anemia: Plan Fall at home with prolonged immobility leading to sepsis 2/2 UTI and rhabdomyolysis. 1. Fall. History of ambulatory dysfunction, ambulates with walker, presents with fall, most likely secondary to urinary tract infection. PT, OT when stable. Likely needs rehab again. 2. Possible sepsis with elevated white count, tachycardia on admission. UTI Urinalysis positive. Urine culture positive for Proteus Mirabilis - pansensitive-->already received course of antibiotics for this Bacteremia Blood culture (02/06) positive for gram-positive bacilli on admission - Clostridium perfringens Repeat blood culture (02/07) NGTD Continued Zosyn since admission. Vancomycin added when bacteremia was confirmed. Vancomycin stopped, February 09. Obtained echo There is no evidence of mass or vegetation. This does not rule out endocarditis. There is mild concentric LVH. EF 60 to 65%. RV systolic function is normal. LA size is normal. RA size is normal. Mild aortic regurg. ID consulted The presence of Clostridium perfringens in the patient's blood is concerning for concomitant/traumatic?, Necrotizing soft tissue infection or an intra-abdominal infection. Neither of these are present. Cont current abx pending updated thoughts from ID. Clindamycin added to Zosyn-->will likely pursue clinda plus PCN at this point x 14 dys per recs. 3. Anemia: appears multifactorial. Possibly some dilution with initial IVF resuscitation given rhabdo and infection on admission, anemia of chronic disease. She presented with a supratherapeutic INR of 9.6 and had some bruising present. There is no iron deficiency, normal B12 and folate lasbs recently performed as outpatient. EGD and CSP as above and no other overt bleeding. Cont to trend H/H tonight and in am and continue investigation into cause if this continues to fall. For now, INR is 2.0 and without evidence of bleeding will cont warfarin. 3. Acute kidney injury - resolved Baseline creatinine of 0.9, On admission creatinine of 1.5. Received fluids. Avoid nephrotoxic agents. Holding diuretics. Current Cr 0.7 5. Nontraumatic rhabdomyolysis. Mild elevation in bilirubin. Mild elev. in troponin secondary to rhabdo. CK, trop trended down by 50% last checked on 02/07 6. Chronic diastolic CHF, holding the diuretics since admission. Getting fluids. Monitor for any volume overload. been on lasix 40-80 mg chronically. Now holding any lasix and BP persistently on lower side Interestingly patient also lost a significant amount of weight since last admission. Reviewing EMR, during last admission patient was about 88 kg, now she is about 80 kg. During last admission she also had significant lower extremity edema, now trace/no lower extremity edema. Resume home lasix now. 7. Hypertension. Blood pressure on low side since admission. Was on metoprolol 25 mg in the a.m. and 12.5 mg in the p.m. Since last admission 12.5 mg HS. Changed metoprolol to 6.25 mg bid d/t lower BP and no tachycardia. Hypothyroidism. chronic, stable. Continue home Synthroid. History of Parkinson.chronic, stable. Continue home carbidopa/levodopa. Hyperlipidemia. chronic, stable. Continue statin. Chronic pain. Appears controlled. Continue home pain medications. Gastroesophageal reflux disease. Continue omeprazole. Restless leg syndrome: Continue ropinirole. History of deep venous thrombosis and pulmonary embolism. On Coumadin. Follow PT/INR. History of hypercoagulability. History of pulmonary embolus and deep venous thrombosis. On Coumadin. INR elevated on admission, and vit. K given. INR now therapeutic, resumed warfarin, monitor INR History of Edenilson-Danlos syndrome. History of asthma. Stable. Continue home medications. Chronic anemia. Follow the H and H. History of gastric bypass. History of peripheral vascular disease. History of thoracic aortic aneurysm, needs to follow. DVT prophylaxis. Coumadin. DISPOSITION:tele floor. Plan to DC to [facility] when medically stable full code Leny Breen DO [facility] and Anticipated Discharge Date Admission Date: February 06, 2022 Subjective Patient seen in follow-up of fall, UTI, rhabdomyolysis that is improved. Blood culture positive for gram-positive bacilli (Clostridium) on admission Still weak but improving She is out of bed to chair. Has a luis enrique lift at home to help her initiate standing per nurse/therapy who worked with her today. She has a 3 gm drop in Hb since admission but there are no signs of overt bleeding. She has a softball sized ecchymotic area on her left upper arm and some scattered bruising on her back. She has had normal BMs today and reports no bleeding, confirmed with RN Peripheral smear was normal today--No evidence of hemolysis Per outpatient record review revealed EGD 08/2020 with good anastomosis, CSP 12/2019 with 3 polyps. No evidence of iron deficiency No symptoms of anemia at this time. Review of Systems Review of Systems: All systems were reviewed and negative except as indicated on subjective above. Physical Exam Physical Exam: CONSTITUTIONAL: WNWD, vitals as above, generally well- appearing, NAD EYES: normal conjunctivae, no scleral icterus ENT: external ear and nose normal, MMM NECK: trachea midline RESPIRATORY: clear to auscultation bilaterally, no crackles, rales or wheezes, normal respiratory effort CARDIOVASCULAR: regular rate and rhythm, 3/6 CELINA heard at LSB, no gallops or rubs, no JVD, no peripheral edema CHEST: inspection of chest was normal GASTROINTESTINAL: soft, nontender, ND, no guarding MUSCULOSKELETAL: generalized weakness, moves extremities symmetrically, head is normocephalic and atraumatic SKIN: warm and dry NEUROLOGIC: CN 2-12 grossly intact, no sensory deficit, normal cognition, normal speech, no tremor PSYCHIATRIC: alert cooperative and oriented to person, place and time. Results & Data Results & Data ([facility]) Vital Signs (Past 12 Hours) Vital Signs Temp Pulse Resp BP Pulse Ox 02/15/22 16:00 36.8 C 89 16 131/70 96 02/15/22 12:00 36.8 C 83 18 120/68 93 Laboratory Results Short CBC 02/15/22 Range/Units 06:43 WBC 6.75 (4.8-10.8) K/ul Hgb 7.5 L (12.0-16.0) g/dl Hct 24.6 L (34.1-44.9) % Plt Count 161 (130-400) K/uL BMP 02/15/22 06:43 Sodium 137 Potassium 4.0 Chloride 111 H Carbon Dioxide 24 BUN 9 Creatinine 0.59 L Glucose 81 Calcium 8.7 Medications Administered Current Inpatient Medications Acetaminophen (Acetaminophen 325 Mg Tab) 650 mg PO Q4H PRN PRN Reason: Pain or Fever Stop: 03/08/22 22:57 Last Admin: 02/15/22 03:50 Dose: 650 mg Albuterol (Albuterol Hfa 8 Gm Inhaler) 2 puffs INH Q6 PRN PRN Reason: Shortness Of Breath Or Wheezing Stop: 03/08/22 22:57 Albuterol (Albut/Ipratrop 3mg/0.5mg Neb 3 Ml Vial) 3 ml INH QIDR PRN; Protocol PRN Reason: Wheezing Stop: 03/08/22 22:57 Atorvastatin Calcium (Atorvastatin 20 Mg Tab) 20 mg PO QAM ASHUTOSH Stop: 03/09/22 08:59 Last Admin: 02/15/22 09:03 Dose: 20 mg Buprenorphine HCl (Buprenorphine 15 Mcg/Patch Tdsy) 15 mcg TD Q7D@0900 ASHUTOSH Stop: 03/16/22 15:59 Last Admin: 02/14/22 15:58 Dose: 15 mcg Carbidopa/Levodopa (Carbidopa/Levodopa 25/100mg Tab) 1 tab PO QID ASHUTOSH Stop: 03/08/22 22:57 Last Admin: 02/15/22 16:30 Dose: 1 tab Clindamycin HCl (Clindamycin Hcl 150 Mg Cap) 150 mg PO Q6 ASHUTOSH Stop: 02/27/22 17:59 Last Admin: 02/15/22 17:41 Dose: 150 mg Docusate Sodium (Docusate Sodium Syrup 100 Mg/10 Ml Udc) 50 mg PO BID PRN PRN Reason: Constipation Last Admin: 02/11/22 08:49 Dose: 50 mg Fluticasone Propionate (Fluticasone Propionate Na Spr 16 Gm Btl) 2 sprays NA DAILY ASHUTOSH Stop: 03/09/22 08:59 Last Admin: 02/15/22 08:59 Dose: 2 sprays Fluticasone/Vilanterol (Fluticasone/Vilanterol 100/25mcg 14 Puffs/Inhaler) 1 puffs INH DAILY ASHUTOSH Stop: 03/09/22 08:59 Last Admin: 02/15/22 08:59 Dose: 1 puffs Furosemide (Furosemide 40 Mg Tab) 40 mg PO QAM ASHUTOSH Stop: 03/17/22 08:59 Last Admin: 02/15/22 09:00 Dose: 40 mg Hydroxyzine HCl (Hydroxyzine Hcl 25 Mg Tab) 25 mg PO Q6 PRN PRN Reason: .ANX/ITCH Stop: 03/08/22 22:57 Last Admin: 02/14/22 09:26 Dose: 25 mg Piperacillin Sod/Tazobactam (Sod 3.375 gm/ Dextrose) 115 mls @ 28.75 mls/hr IV Q8H [facility]; Protocol Stop: 02/17/22 03:59 Last Infusion: 02/15/22 17:21 Dose: Infused Lactobacillus Acidophilus (Advanced Probiotic 1250 Mg Capsule) 2 cap PO DAILY ASHUTOSH Stop: 03/09/22 08:59 Last Admin: 02/15/22 09:02 Dose: 2 cap Levothyroxine Sodium (Levothyroxine Sodium 50 Mcg Tablet) 50 mcg PO DAILYBB ASHUTOSH Stop: 03/09/22 06:29 Last Admin: 02/15/22 05:35 Dose: 50 mcg Linaclotide (Linaclotide 145 Mcg Capsule) 290 mcg PO DAILY ASHUTOSH Stop: 03/09/22 08:59 Last Admin: 02/15/22 09:03 Dose: 290 mcg Meclizine HCl (Meclizine Hcl 25 Mg Tab) 25 mg PO TID PRN PRN Reason: DIZZY Stop: 03/08/22 22:57 Last Admin: 02/11/22 08:49 Dose: 25 mg Metaxalone (Metaxalone 800 Mg Tablet) 800 mg PO QID [facility] Stop: 03/08/22 22:57 Last Admin: 02/15/22 16:28 Dose: 800 mg Metoprolol Tartrate (Metoprolol Tartrate 25 Mg Tab) 6.25 mg PO BID [facility] Stop: 03/14/22 08:14 Last Admin: 02/15/22 09:01 Dose: 6.25 mg Miscellaneous (Check Buprenorphine Patch) 1 each N/A QS [facility] Stop: 03/09/22 15:59 Last Admin: 02/15/22 16:28 Dose: 1 each Miscellaneous (Remove & Waste Butrans Patch 1 Ea Ea) 1 each N/A Q7D@0859 [facility] Stop: 03/16/22 15:58 Last Admin: 02/14/22 15:58 Dose: 1 each Montelukast Sodium (Montelukast Sodium 10 Mg Tablet) 10 mg PO HS [facility] Stop: 03/08/22 22:57 Last Admin: 02/14/22 21:36 Dose: 10 mg Multivitamins/Minerals (Cerovite Adv Formula Tab) 1 tab PO DAILY [facility] Stop: 03/09/22 08:59 Last Admin: 02/15/22 09:02 Dose: 1 tab Nitroglycerin (Nitroglycerin Sl 0.4 Mg/Tab Tab) 0.4 mg SL UD PRN PRN Reason: Chest Pain Stop: 03/08/22 22:57 Ondansetron HCl (Ondansetron 4 Mg Od Tab) 4 mg PO Q12 PRN PRN Reason: Nausea Stop: 03/08/22 22:57 Pantoprazole Sodium (Pantoprazole 40 Mg Tab) 40 mg PO DAILY [facility] Stop: 03/09/22 08:59 Last Admin: 02/15/22 09:00 Dose: 40 mg Ropinirole HCl (Ropinirole Hcl 1 Mg Tablet) 2 mg PO HS [facility] Stop: 03/08/22 22:57 Last Admin: 02/14/22 21:37 Dose: 2 mg Ropinirole HCl (Ropinirole Hcl 1 Mg Tablet) 1 mg PO TIDM [facility] Stop: 03/09/22 07:59 Last Admin: 02/15/22 16:28 Dose: 1 mg Senna/Docusate Sodium (Docusate Sodium/Senna 50/8.6mg Tab) 1 tab PO BID [facility] Stop: 03/08/22 22:57 Last Admin: 02/15/22 09:02 Dose: 1 tab Triamcinolone Acetonide (Triamcinolone Acet 0.1% Cr 15 Gm Tube) 1 appln TOP BID PRN PRN Reason: FLARE UP Stop: 03/08/22 22:57 Warfarin Sodium (Warfarin Sod 2.5 Mg Tab) 2.5 mg PO DAILY@1600 [facility] Stop: 03/12/22 15:59 Last Admin: 02/15/22 16:27 Dose: 2.5 mg Warfarin Sodium (Warfarin Sod 1.25 Mg Tab) 1.25 mg PO Mo@1600 [facility] Stop: 03/14/22 15:59 Last Admin: 02/12/22 16:08 Dose: 1.25 mg (1) Fall Encounter type: initial encounter Qualified Code(s): W19.XXXA - Unspecified fall, initial encounter (2) Rhabdomyolysis Encounter type: initial encounter
[2022-02-15 20:39] LABS: Hematocrit (blood only) 27.3 % (34.1-44.9); Hemoglobin 8.4 g/dl (12.0-16.0)
[2022-02-15] MEDS: MONTELUKAST SODIUM 10 MG TABLET PO SCH (21:26)
[2022-02-16] MEDS: CHECK BUPRENORPHINE PATCH SCH ×2 (00:38→07:53)
[2022-02-16] MEDS: CLINDAMYCIN HCL 150 MG CAP PO SCH ×3 (00:39→12:50)
[2022-02-16] MEDS: PIPERACILLIN/TAZOBACTAM 3.375 GM in DEXTROSE 5% 100 ML IV SCH ×2 (04:04→12:49)
[2022-02-16] MEDS: hydrOXYzine HCl 25 MG TAB PO PRN (04:05)
[2022-02-16] MEDS: LEVOTHYROXINE SODIUM 50 MCG TABLET PO SCH (05:56)
[2022-02-16 07:19] LABS: Hematocrit (blood only) 26.2 % (34.1-44.9); Hemoglobin 8.1 g/dl (12.0-16.0); Mean Corpuscular Hemoglobin 29.3 pg (25.0-34.0); Mean Corpuscular Hgb Conc 30.9 g/dL (32.0-36.0); Mean Corpuscular Volume 94.9 fL (80.0-100.0); Mean Platelet Volume 9.9 fL (9.4-12.3); Platelet Count 189 K/uL (130-400); RDW Coefficient of Variation 17.3 % (11.5-14.5); RDW Standard Deviation 57.1 fL (36.4-46.3); Red Blood Count 2.76 M/uL (3.93-5.22); White Blood Count 8.93 K/ul (4.8-10.8)
[2022-02-16 07:44] LABS: BUN Creatinine Ratio 15.9 (10-20); Calcium 8.5 mg/dl (8.5-10.1); Creatinine Clr Calc Pharmacy 80.9 ml/min; Est GFR (African American) 104.6 ml/min; Est GFR (Non-African American) 90.2 ml/min; Magnesium 1.5 mg/dl (1.7-2.4); Potassium 3.6 mmol/L (3.5-5.1)
[2022-02-16 07:51] LABS: INR 2.1 (0.9-1.1); Prothrombin Time 21.9 Seconds (9.0-12.0)
[2022-02-16] MEDS: rOPINIRole HCL 1 MG TABLET PO SCH ×2 (07:53→12:50)
[2022-02-16] MEDS: ATORVASTATIN 20 MG TAB PO SCH (09:21)
[2022-02-16] MEDS: CARBIDOPA/LEVODOPA 25/100MG TAB PO SCH ×2 (09:21→12:50)
[2022-02-16] MEDS: DOCUSATE SODIUM/SENNA 50/8.6MG TAB PO SCH (09:21)
[2022-02-16] MEDS: FLUTICASONE PROPIONATE NA SPR 16 GM BTL SCH (09:21)
[2022-02-16] MEDS: FLUTICASONE/VILANTEROL 100/25MCG 14 PUFFS/INHALER INH SCH (09:22)
[2022-02-16] MEDS: CEROVITE ADV FORMULA TAB PO SCH (09:22)
[2022-02-16] MEDS: PANTOprazole 40 MG TAB PO SCH (09:22)
[2022-02-16] MEDS: METAXALONE 800 MG TABLET PO SCH ×2 (09:22→12:50)
[2022-02-16] MEDS: FUROSEMIDE 40 MG TAB PO SCH (09:22)
[2022-02-16] MEDS: LINACLOTIDE 145 MCG CAPSULE PO SCH (09:23)
[2022-02-16] MEDS: METOPROLOL TARTRATE 25 MG TAB PO SCH (09:23)
[2022-02-16] MEDS: ADVANCED PROBIOTIC 1250 MG CAPSULE PO SCH (09:23)
[2022-02-16] MEDS ORDERED: MAGNESIUM OXIDE 400 MG TAB PO SCH (11:15)
--- NOTE | 2022-02-16 14:17 | Discharge Summary ---
Date of Service February 16, 2022 Principal Diagnosis Fall Elevated INR Rhabdomyolysis Acute kidney injury-resolved Urinary Tract Infection-treated Bacteremia Acute on chronic Anemia Discharge Exam CONSTITUTIONAL: WNWD, vitals as above, generally well-appearing, NAD EYES: normal conjunctivae, no scleral icterus ENT: external ear and nose normal, MMM NECK: trachea midline RESPIRATORY: clear to auscultation bilaterally, no crackles, rales or wheezes, normal respiratory effort CARDIOVASCULAR: regular rate and rhythm, 3/6 CELINA heard at LSB, no gallops or rubs, no JVD, no peripheral edema CHEST: inspection of chest was normal GASTROINTESTINAL: soft, nontender, ND, no guarding MUSCULOSKELETAL: generalized weakness, moves extremities symmetrically, head is normocephalic and atraumatic SKIN: warm and dry NEUROLOGIC: CN 2-12 grossly intact, no sensory deficit, normal cognition, normal speech, no tremor PSYCHIATRIC: alert cooperative and oriented to person, place and time. Discharge Data Allergies Allergy/AdvReac Type Severity Reaction Status Date / Time ammonia Allergy Severe FACE, Verified 02/06/22 18:48 LIPS, TONGUE EDEMA buspirone Allergy Severe NEURO Verified 02/06/22 18:48 COMPLICATIONS duloxetine Allergy Intermediate RASH Verified 02/06/22 18:48 ITCHING lisinopril Allergy Intermediate cough Verified 02/06/22 18:48 adhesive Allergy Mild skin tears Verified 02/06/22 18:48 NSAIDS (Non-Steroidal Allergy Unknown not Verified 02/06/22 18:48 Anti-Inflamma supposed to use-S/P GASTRIC BYPASS vancomycin Allergy Unknown ON GMG MED Verified 02/06/22 18:48 LIST venlafaxine Allergy Unknown AFFECTS Verified 02/06/22 18:48 LEGS diphenhydramine AdvReac Intermediate RESTLESS Verified 02/06/22 18:48 LEGS gabapentin AdvReac Intermediate MUSCLE Verified 02/06/22 18:48 STIFFNESS POLLEN Allergy Severe FACE, Uncoded 02/06/22 18:48 LIPS, TONGUE EDEMA Dust Allergy Intermediate ROACHES,DUST Uncoded 02/06/22 18:48 MITES-CLOGGED UP SINUSES-CAN'T BREATHE Consultations 02/06/22 19:30 ED Decision to Admit Stat 02/08/22 07:40 Consult Infectious Diseases Routine Ordered Studies 02/06/22 15:29 CT head/brain wo con Stat CT lumbar spine wo con Stat 02/06/22 17:33 CT abd pelvis wo con Stat CT chest without contrast [CT chest diagnostic wo con] Stat Hospital Course (1) Fall: (2) Elevated INR: (3) Rhabdomyolysis: (4) JAEL (acute kidney injury): (5) Acute hypokalemia: (6) Acute UTI: (7) Anemia: Plan Fall at home with prolonged immobility leading to sepsis 2/2 UTI and rhabdomyolysis. 1. Fall. History of ambulatory dysfunction, ambulates with walker, presents with fall, most likely secondary to urinary tract infection. PT, OT recommended rehab. Notably she is reported to use a luis enrique lift at home 2. Possible sepsis with elevated white count, tachycardia on admission. Resuscitated and 2/2 UTI Urine culture positive for Proteus Mirabilis - pansensitive-->already received course of antibiotics for this during her hospital stay 3. Bacteremia Blood culture (02/06) positive for gram-positive bacilli on admission - Clostridium perfringens Repeat blood culture (02/07) NGTD Continued Zosyn since admission. Vancomycin added when bacteremia was confirmed. Vancomycin stopped, February 09. Obtained echo There is no evidence of mass or vegetation. This does not rule out endocarditis. There is mild concentric LVH. EF 60 to 65%. RV systolic function is normal. LA size is normal. RA size is normal. Mild aortic regurg. ID consulted The presence of Clostridium perfringens in the patient's blood is concerning for concomitant/traumatic?, Necrotizing soft tissue infection or an intra-abdominal infection. Neither of these are present. Clindamycin added to Zosyn for a few days then ultimatley clindamycin was not thought to be needed. Per ID recs she should receive a continuous penicillin infusion for the remaining 5 days, however, this was unable to be done at rehab. So we continued her Zosyn fo rthe next 5 days instead. 4. Anemia: appears multifactorial. Possibly some dilution with initial IVF resuscitation given rhabdomyolysis and infection on admission, anemia of chronic disease. She presented with a supratherapeutic INR of 9.6 and had some bruising present. There is no iron deficiency, normal B12 and folate labs recently performed as outpatient. EGD and prior colonoscopy in the last 3 years reveal no overt bleeding. She was on warfarin and H/H remained stable. Cont with outpatient investigation into cause of anemia and repeat CBC at some point in the next couple of months. 5. Acute kidney injury - resolved Baseline creatinine of 0.9, On admission creatinine of 1.5. Received fluids. Avoid nephrotoxic agents. Holding diuretics. Current Cr 0.7 6. Nontraumatic rhabdomyolysis. Mild elevation in bilirubin. Mild elev. in troponin secondary to rhabdo. CK, trop trended down by 50% last checked on 02/07 7. Chronic diastolic CHF, holding the diuretics since admission. Getting fluids. Monitor for any volume overload. been on lasix 40-80 mg chronically. Now holding any lasix and BP persistently on lower side Interestingly patient also lost a significant amount of weight since last admission. Reviewing EMR, during last admission patient was about 88 kg, now she is about 80 kg. During last admission she also had significant lower extremity edema, now trace/no lower extremity edema. Resumed home lasix 8. Hypertension. Blood pressure on low side since admission. Was on metoprolol 25 mg in the a.m. and 12.5 mg in the p.m. Since last admission 12.5 mg HS. Changed metoprolol to 6.25 mg bid d/t lower BP and no tachycardia. Hypothyroidism. chronic, stable. Continue home Synthroid. History of Parkinson.chronic, stable. Continue home carbidopa/levodopa. Hyperlipidemia. chronic, stable. Continue statin. Chronic pain. Appears controlled. Continue home pain medications. Gastroesophageal reflux disease. Continue omeprazole. Restless leg syndrome: Continue ropinirole. History of deep venous thrombosis and pulmonary embolism. On Coumadin. Follow PT/INR. History of hypercoagulability. History of pulmonary embolus and deep venous thrombosis. On Coumadin. INR elevated on admission, and vit. K given. INR now therapeutic, resumed warfarin, monitor INR History of Edenilson-Danlos syndrome. History of asthma. Stable. Continue home medications. Chronic anemia. Follow the H and H. History of gastric bypass. History of peripheral vascular disease. History of thoracic aortic aneurysm, needs to follow. DVT prophylaxis. Coumadin. DISPOSITION:tele floor. Discharged to [facility] in stable condition. Total Time Total Time Spent Total Time Spent (In Minutes): 60 Discharge Plan Discharge Items Patient Disposition: Transfer Inpatient Rehab Fac Reason For Visit: FALL Discharge Diagnosis: Fall Elevated INR Rhabdomyolysis Acute kidney injury-resolved Urinary Tract Infection-treated Bacteremia Acute on chronic Anemia Condition on Discharge: Good Activity: Resume your previous activity Non-emergency contact: Primary Care Provider Call non-emergency contact if: you have any medication questions, your symptoms worsen, your pain is not controlled, your pain is worsening, your pain is unusual for you, your pain is concerning for you and you have a fever Follow-up/Referrals: Debbie Otero PA-C [Primary Care Provider] - Diet: Heart Healthy Addtl Attending Provider Instructions: Please continue Zosyn for another 5 days at the same dose currently taking (3.375gm IV q8h). Total course is 14 days. She is on Day 03/21. Please continue all medications as instructed on discharge list below. Please follow-up with your primary care physician within one week of discharge from the hospital. This is to review medication changes, ensure symptoms are improved and do bloodwork for monitoring. You have a worsened anemia, which is likely from multiple causes. Further monitoring of your blood counts and investigation into causes of your anemia will need to be pursued at this followup visit. You were diagnosed with a urinary tract infection and were also found to have some bacteria in your blood. You will be continuing intravenous antibiotics for the next 5 days to complete a 14 day course. It was a pleasure taking care of you! Please call if you have any questions or problems. You can reach a [facility] hospitalist on duty at [facility] 24 hours a day by calling [phone]. Take care of yourself. Leny Breen, DO [facility] Pending Studies at Discharge: No Stand-Alone Forms: My [facility] Skilled Items Patient informed of condition?: Yes DNR: No Discharge Level of Care: Acute rehab Communicable Disease: No Discharge Prognosis: Stable Lines: Peripheral IV Urinary Catheter: No Medications and DC Order Prescriptions: Continued furosemide 40 mg tablet 40 - 80 mg PO DAILY atorvastatin 20 mg tablet 20 mg PO QAM ipratropium-albuterol 0.5 mg-3 mg(2.5 mg base)/3 mL solution for nebulization 3 ml INHALATION QID ondansetron HCl 4 mg Tablet 4 mg PO Q12 PRN (Reason: Nausea) sennosides-docusate sodium [Senna-S] 8.6-50 mg Tablet 1 tab-cap PO BID cromolyn 4 % drops 1 drp OPL QID PRN (Reason: Itching) thiamine HCl (vitamin B1) 100 mg Tablet 100 mg PO BID warfarin 2.5 mg tablet 0 mg PO DIRECTED Rx Instructions: DIRECTED BY ANTI-COAGULATION CLINIC docusate sodium 50 mg Capsule 50 mg PO BID PRN (Reason: Constipation) triamcinolone acetonide 0.1 % cream 1 applic TOPICAL BID PRN (Reason: FLARE UP) potassium chloride [Klor-Con] 20 mEq packet 20 meq PO [facility] Rx Instructions: WHILE ON LASIX clindamycin phosphate 1 % gel 1 applic TOPICAL BID PRN (Reason: FLARE UPS) meclizine 25 mg Tablet 25 mg PO TID PRN (Reason: DIZZY) levothyroxine 50 mcg tablet 50 mcg PO DAILY ropinirole 2 mg tablet See Rx Instructions .ROUTE .COMPLEX Rx Instructions: 1 TAB IN AM, 1 TAB LUNCH, 1 TAB MID EVENING , 2 TABS @ HS WITH FOOD. omeprazole 20 mg capsule,delayed release(DR/EC) 40 mg PO DAILY montelukast 10 mg tablet 10 mg PO HS calcium citrate 150 mg Capsule 0 mg PO BID hydroxyzine HCl 25 mg Tablet 25 mg PO Q6 PRN (Reason: .ANX/ITCH) ergocalciferol (vitamin D2) [Vitamin D2] 1,250 mcg (50,000 unit) Capsule 1,250 mcg PO WK fluticasone propion-salmeterol [Advair Diskus] 100-50 mcg/dose Blister With Device 1 inh INHALATION BID albuterol sulfate 90 mcg/actuation Hfa Aerosol Inhaler 2 inh INHALATION Q6 PRN (Reason: Shortness Of Breath Or Wheezing) carbidopa-levodopa 25-100 mg Tablet 1 tab PO QID fluticasone propionate [Flonase Allergy Relief] 50 mcg/actuation [place],Suspension 2 spray INTRANASAL DAILY ipratropium bromide 21 mcg (0.03 %) [place],Non-Aerosol 1 spray INTRANASAL QID fluticasone propionate 110 mcg/actuation Hfa Aerosol Inhaler 2 puff INHALATION BID cyanocobalamin (vitamin B-12) 1,000 mcg/mL Syringe 1,000 mcg MO Rx Instructions: INJECTION metaxalone 800 mg tablet 800 mg PO QID Rx Instructions: TAKE 1 TAB IN AM,NOON,PM, HS omega-3 fatty acids Capsule 1,000 mg PO DAILY metoprolol tartrate 25 mg tablet 12.5 mg PO QPM biotin 1 mg Tablet 1 mg PO DAILY diclofenac sodium 1 % Gel 2 g TOPICAL QID Linzess 290 mcg capsule 290 mcg PO DAILY buprenorphine 15 mcg/hour patch weekly 1 patch topical WK PreserVision AREDS-2 250-90-40-1 mg Capsule 1 tab PO BID Probiotic Acidophilus Biobeads 12.9 mg (2 billion cell) Tablet,Delayed Release (Dr/Ec) 2 tab PO DAILY lidocaine HCl 2.8 % Gel 1 applic TOPICAL BID PRN (Reason: APPLY TO AFFECTED AREAA) Discontinued triamcinolone acetonide 0.1 % Cream 1 applic TOPICAL BID Discharge Orders: Discharge Order (Routine); Ordered 02/16/22 Ordered By: Leny Breen Admission Data Admit Date/Time: 02/06/22 20:28 Attending Provider: Leny Breen Admit Provider: Abner Abrams Primary Care Provider: Debbie Otero Other Providers: [facility] ; Abner Abrams ; Cam Huerta ; Leo Rizvi ; Piyush Kerns I. ; Mil Kenyon II ; Irasema Loza ; Checo Reese ; Ramesh Cummings Other Interventions: Discharge Summary Assessment (RN) Last Done: 02/16/22 15:06
== END 2022-02-16 15:53 | DRG 872 ==
LOC: ED 14:42 → SUATTDRO 20:28 → EDINP 20:28 → 2S 02-07 20:22
DX: Y92.031 Bathroom in apartment as the place of occurrence of the external cause; Z88.8 Allergy status to other drugs, medicaments and biological substances; Q79.60 Ehlers-Danlos syndrome, unspecified; Z79.01 Long term (current) use of anticoagulants; G20 Parkinson's disease; Z98.84 Bariatric surgery status; N39.0 Urinary tract infection, site not specified; Z88.6 Allergy status to analgesic agent; E03.9 Hypothyroidism, unspecified; B96.4 Proteus (mirabilis) (morganii) as the cause of diseases classified elsewhere; I71.2 Thoracic aortic aneurysm, without rupture; G25.81 Restless legs syndrome; Z86.711 Personal history of pulmonary embolism; Z79.899 Other long term (current) drug therapy; E78.5 Hyperlipidemia, unspecified; A41.4 Sepsis due to anaerobes; Z86.718 Personal history of other venous thrombosis and embolism; J45.30 Mild persistent asthma, uncomplicated; G89.29 Other chronic pain; Z79.890 Hormone replacement therapy; Z88.1 Allergy status to other antibiotic agents; M62.82 Rhabdomyolysis; W18.2XXA Fall in (into) shower or empty bathtub, initial encounter; Z96.651 Presence of right artificial knee joint; K21.9 Gastro-esophageal reflux disease without esophagitis; I11.0 Hypertensive heart disease with heart failure; D68.59 Other primary thrombophilia; N17.9 Acute kidney failure, unspecified; Z79.1 Long term (current) use of non-steroidal anti-inflammatories (NSAID); Y99.8 Other external cause status; Z79.891 Long term (current) use of opiate analgesic; I73.9 Peripheral vascular disease, unspecified; D63.8 Anemia in other chronic diseases classified elsewhere; I50.32 Chronic diastolic (congestive) heart failure; Y93.E1 Activity, personal bathing and showering; Z91.048 Other nonmedicinal substance allergy status; E87.6 Hypokalemia

== ENCOUNTER 2022-03-16 11:55 | Inpatient (IN) ==
[2022-03-16] MEDS ORDERED: SODIUM CHLORIDE 0.9% 500 ML IV SCH (13:30)
--- NOTE | 2022-03-16 13:49 | Emergency Department Note ---
Impression & Plan Weakness, Falling, Acute dehydration, Hypokalemia, Coagulopathy, Contusion ED Provider Note NAME: GRETTA PRAJAPATI AGE: 71 SEX: F : 1950 ARRIVES VIA: Ambulance INFORMANT: [Patient][nursing] ED PROVIDER(S): [Julian Escobar MD] CHIEF COMPLAINT: Fall HISTORY OF PRESENT ILLNESS: The patient is a 71-year-old female who presents to the ER after a fall. She has fallen multiple times recently. She was in this hospital last month after a fall. She has been at [facility] a few times lately as well. The patient lives alone and as per the caregivers who were involved today, she is not capable of being alone or caring for herself anymore. She cannot be discharged back into her home. The patient apparently lost balance today near her stove. She fell and could not get up on her own. She had a knife in her hand and did make a comment to EMS that she should have slit her throat as she has no will anymore to live. The patient states that this was a balance issue, she just could not keep her balance when she leaned forward and that is why she fell. She denies loss of consciousness, chest pain, shortness of breath. She denies any injury from the fall. Of note, she does take Coumadin. The patient is currently upset and tearful about her life situation. REVIEW OF SYSTEMS: See HPI for pertinent positives and negatives. A total of ten systems were reviewed and were otherwise negative. PMHx/PSHx: See Below SOCIAL HISTORY: See Below. PHYSICAL EXAM: GENERAL: Patient is in moderate distress, tearful and upset. HEENT: No acute trauma, normocephalic atraumatic, mucous membranes dry, no nasal congestion, no scleral icterus. NECK: No stridor, no adenopathy, no meningismus, trachea is midline. LUNGS: Clear to auscultation bilaterally when listening anterior, no respiratory distress. Increased respiratory rate. HEART: 2/6 systolic murmur, regular rate and rhythm. ABDOMEN: Soft, nontender, bowel sounds positive, no peritonitis. EXTREMITIES: No cyanosis. The patient does have some mild bilateral pedal edema. She has contusions about all her extremities, they are of different ages. The largest is in the area of the right distal medial thigh. NEUROLOGIC: Oriented x 3, no acute motor or sensory deficits, no focal weakness. SKIN: No rash, no jaundice, no diaphoresis. DIFFERENTIAL DIAGNOSIS: Infection, dehydration, UTI, COVID-19, rhabdomyolysis, renal or liver failure, metabolic abnormality, hypo/hyperglycemia, electrolyte disturbance, anemia, hypoxia, cardiac sources, intracerebral event, toxicologic issues, stroke, TIA, as well as other pathologies. EMERGENCY DEPARTMENT COURSE/PROCEDURES: ECG: Indication was fall and weakness. The ECG shows a normal sinus rhythm with a rate of 87. There is significant baseline artifact but no obvious ST elevation. There is no PVC. The QTc is 471. Continuous Cardiac Monitoring: An order was placed for continuous cardiac monitoring. The monitor shows a rate of 97 with normal sinus rhythm. Critical Care Note: I have personally spent 46 minutes of critical care time in the direct management of this patient. This includes bedside care, interpretation of diagnostic studies, and testing, discussion with consultants, patient, and family members, and other required patient management activities. This 46 minutes is in excess of all separately billable procedures. MEDICAL DECISION MAKING: There is a mild leukocytosis which could be consistent with infection or just the stress of her current situation. The patient was anemic with a hemoglobin of 10.4, the patient carries a history of anemia. There is a normal platelet count. INR was elevated at 3.8, this is above the therapeutic window for someone using Coumadin. Potassium is low at 2.8. No renal failure. No rhabdomyolysis by our testing. No concerning liver enzyme elevation. Patient did have a low TSH however, the T4 was normal. ECG shows a normal sinus rhythm, no ST elevation. Cardiac enzyme testing x1 was slightly elevated however, the patient has had a higher troponin value in the past. Chest x-ray did not show pneumonia or CHF. Urinalysis showed some bacteria but no signs of infection. COVID test returned negative. Brain CT showed no acute bleed or mass-effect. The patient presents after falling. She appeared dehydrated. She was weak. Jackie rodriges has been falling a lot recently and she was not capable of being discharged back into her current living situation. The patient was quite upset about being here and about her situation. She was given IV Ativan, IV morphine and IV Zofran. She received IV saline. A second round of Ativan and morphine was administered IV. She was given IV potassium. The patient is in need of a hospital stay. She is not safe for discharge home. During this hospitalization, psychiatry can be consulted for her suicidal comments. I did speak with the patient and case management, the on-call hospitalist was consulted. Past Med/Surg History Medical History ADHD Asthma uses PRN INH 3-4 x wk Bulging of intervertebral disc Claustrophobia Difficult intravenous access Dysphagia Edenilson-Danlos syndrome ISAC (generalized anxiety disorder) Gastroparesis GERD (gastroesophageal reflux disease) Hearing deficit History of colon polyps History of colon polyps History of DVT (deep vein thrombosis) chronic anticoagulation History of intestinal obstruction Hyperlipidemia Hypothyroidism Osteoarthritis Osteoporosis Peripheral neuropathy Protein C deficiency Pulmonary embolism 07/2018 - treated w/ lovenox - unk etiology Renal cyst Restless leg syndrome Sleep apnea unable to tolerate CPAP Tachycardia Thoracic aortic aneurysm follows w/ Dr. Arredondo - evaluated within last 6 mo Thyroid nodule Surgical History History of abdominoplasty + hernia repair History of arthroscopy of left knee History of bilateral breast reduction surgery History of cholecystectomy History of colonoscopy History of esophagogastroduodenoscopy (EGD) History of gastric bypass History of intestinal surgery History of laparotomy History of left knee replacement History of right knee joint replacement History of tonsillectomy Hx of melanoma excision shoulder S/P hysterectomy Self extubation attempted post gastric bypass Status post biopsy of thyroid gland benign Family History Uncle Stomach cancer Other No family history of adverse response to anesthesia No pertinent family history in first degree relatives Social History Smoking Status: Never smoker Second Hand Exposure: No; Hx Alcohol Use: No Hx Substance Use: No Preferred Language: Cameroonian Communication Ability: Effective Visual Impairment: Limited Hearing Ability: Normal State'S Attorney Required: No Beliefs That Will Affect Care: None marital status: Single Current Living Situation: Alone Current Living Situation Comment: has friends to help when needed How many Children do You have: 0 Feels Safe at Home: Yes Assistive Devices: Walker Allergies Allergies Allergy/AdvReac Type Severity Reaction Status Date / Time ammonia Allergy Severe FACE, Verified 02/06/22 18:48 LIPS, TONGUE EDEMA buspirone Allergy Severe NEURO Verified 02/06/22 18:48 COMPLICATIONS duloxetine Allergy Intermediate RASH Verified 02/06/22 18:48 ITCHING lisinopril Allergy Intermediate cough Verified 02/06/22 18:48 adhesive Allergy Mild skin tears Verified 02/06/22 18:48 NSAIDS (Non-Steroidal Allergy Unknown not Verified 02/06/22 18:48 Anti-Inflamma supposed to use-S/P GASTRIC BYPASS vancomycin Allergy Unknown ON GMG MED Verified 02/06/22 18:48 LIST venlafaxine Allergy Unknown AFFECTS Verified 02/06/22 18:48 LEGS diphenhydramine AdvReac Intermediate RESTLESS Verified 02/06/22 18:48 LEGS gabapentin AdvReac Intermediate MUSCLE Verified 02/06/22 18:48 STIFFNESS POLLEN Allergy Severe FACE, Uncoded 02/06/22 18:48 LIPS, TONGUE EDEMA Dust Allergy Intermediate ROACHES,DUST Uncoded 02/06/22 18:48 MITES-CLOGGED UP SINUSES-CAN'T BREATHE Home Meds Home Medications Medication Instructions Recorded Confirmed L.acidoph-L.rhamn-B.bifidum-B.long 2 tab PO DAILY 01/09/22 02/06/22 12.9 mg (2 billion cell) tablet, DR (Probiotic Acidophilus Red Mapache) albuterol sulfate 90 mcg/actuation 2 inh inhalation Q6 PRN Shortness 01/09/22 02/06/22 aerosol inhaler Of Breath Or Wheezing atorvastatin 20 mg tablet 20 mg PO QAM 01/09/22 02/06/22 biotin 1 mg tablet 1 mg PO DAILY 01/09/22 02/06/22 buprenorphine 15 mcg/hour weekly 1 patch topical WK 01/09/22 02/06/22 transdermal patch calcium citrate 150 mg capsule 0 mg PO BID 01/09/22 02/06/22 carbidopa 25 mg-levodopa 100 mg 1 tab PO QID 01/09/22 02/06/22 tablet clindamycin phosphate 1 % topical 1 applic topical BID PRN FLARE UPS 01/09/22 02/06/22 gel cromolyn 4 % eye drops 1 drp OPL QID PRN Itching 01/09/22 02/06/22 cyanocobalamin (vitamin B-12) 1,000 mcg MO 01/09/22 02/06/22 1,000 mcg/mL injection syringe diclofenac sodium 1 % topical gel 2 g topical QID 01/09/22 02/06/22 docusate sodium 50 mg capsule 50 mg PO BID PRN Constipation 01/09/22 02/06/22 ergocalciferol (vitamin D2) 1,250 1,250 mcg PO WK 01/09/22 02/06/22 mcg (50,000 unit) capsule (Vitamin D2) fluticasone 100 mcg-salmeterol 50 1 inh inhalation BID 01/09/22 02/06/22 mcg/dose blistr powdr for inhalation (Advair Diskus) fluticasone propionate 110 2 puff inhalation BID 01/09/22 02/06/22 mcg/actuation HFA aerosol inhaler fluticasone propionate 50 2 spray intranasal DAILY 01/09/22 02/06/22 mcg/actuation nasal spray,suspension (Flonase Allergy Relief) furosemide 40 mg tablet 40 - 80 mg PO DAILY INCREASED 01/09/22 02/06/22 SWELLING IN LEGS hydroxyzine HCl 25 mg tablet 25 mg PO Q6 PRN .ANX/ITCH 01/09/22 02/06/22 ipratropium 0.5 mg-albuterol 3 mg 3 ml inhalation QID 01/09/22 02/06/22 (2.5 mg base)/3 mL nebulization soln ipratropium bromide 21 mcg (0.03 1 spray intranasal QID 01/09/22 02/06/22 %) nasal spray levothyroxine 50 mcg tablet 50 mcg PO DAILY 01/09/22 02/06/22 lidocaine HCl 2.8 % topical gel 1 applic topical BID PRN APPLY TO 01/09/22 02/06/22 AFFECTED AREAA linaclotide 290 mcg capsule 290 mcg PO DAILY 01/09/22 02/06/22 (Linzess) meclizine 25 mg tablet 25 mg PO TID PRN DIZZY 01/09/22 02/06/22 metaxalone 800 mg tablet 800 mg PO QID 01/09/22 02/06/22 metoprolol tartrate 25 mg tablet 12.5 mg PO QPM 01/09/22 02/06/22 montelukast 10 mg tablet 10 mg PO HS 01/09/22 02/06/22 omega-3 fatty acids 1,000 mg PO DAILY 01/09/22 02/06/22 omeprazole 20 mg capsule,delayed 40 mg PO DAILY 01/09/22 02/06/22 release ondansetron HCl 4 mg tablet 4 mg PO Q12 PRN Nausea 01/09/22 02/06/22 potassium chloride 20 mEq oral 20 meq PO AMHS 01/09/22 02/06/22 packet (Klor-Con) ropinirole 2 mg tablet See Rx Instructions .Route .COMPLEX 01/09/22 02/06/22 sennosides 8.6 mg-docusate sodium 1 tab-cap PO BID 01/09/22 02/06/22 50 mg tablet (Senna-S) thiamine HCl (vitamin B1) 100 mg 100 mg PO BID 01/09/22 02/06/22 tablet triamcinolone acetonide 0.1 % 1 applic topical BID PRN FLARE UP 01/09/22 02/06/22 topical cream vit C 250 mg-vit E 90 mg-zinc 40 1 tab PO BID 01/09/22 02/06/22 mg-copper 1 [id number]-uwulbe capsule (PreserVision AREDS-2) warfarin 2.5 mg tablet 0 mg PO DIRECTED 01/09/22 02/06/22 Results & Data (ED) Vital Signs Vital Signs - 24 hr 03/16/22 11:55 03/16/22 12:50 03/16/22 13:18 Temperature 36.8 C Temperature Source Oral Pulse Rate 87 Pulse Rate [Apical] 97 H Pulse Rhythm Regular Pulse Rhythm [Apical] Regular Pulse Strength Normal Pulse Strength [Apical] Normal Respiratory Rate 20 22 Respiratory Effort / Characteristics Non-Labored Non-Labored Spontaneous Respiratory Depth Normal Normal Respiratory Pattern Regular Blood Pressure 96/73 L Blood Pressure [Right Arm] 107/58 L Blood Pressure Mean 80 Blood Pressure Mean [Right Arm] 74 Pulse Oximetry 98 95 98 Oxygen Delivery Method Room Air Room Air Room Air Sepsis Recent Fever Within 48 Hours No Sepsis New/Unexplained Change in Mental Status No Sepsis Action Taken by Nursing No Action Required 03/16/22 14:00 Temperature Temperature Source Pulse Rate Pulse Rate [Apical] 88 Pulse Rhythm Pulse Rhythm [Apical] Regular Pulse Strength Pulse Strength [Apical] Normal Respiratory Rate 18 Respiratory Effort / Characteristics Non-Labored Respiratory Depth Normal Respiratory Pattern Blood Pressure Blood Pressure [Right Arm] Blood Pressure Mean Blood Pressure Mean [Right Arm] Pulse Oximetry 97 Oxygen Delivery Method Room Air Sepsis Recent Fever Within 48 Hours Sepsis New/Unexplained Change in Mental Status Sepsis Action Taken by Detention Medications Current Medication List: was personally reviewed by me Laboratory Data Attestation: I reviewed the patient's lab results. Result diagrams: 03/16/22 14:31 03/16/22 14:31 Lab Results 03/16/22 03/16/22 03/16/22 Range/Units 14:23 14:25 14:31 WBC 12.78 H (4.8-10.8) K/ul RBC 3.41 L (3.93-5.22) M/uL Hgb 10.4 L (12.0-16.0) g/dl Hct 31.8 L (34.1-44.9) % MCV 93.3 (80.0-100.0) fL MCH 30.5 (25.0-34.0) pg MCHC 32.7 (32.0-36.0) g/dL RDW Std Deviation 56.1 H (36.4-46.3) fL RDW Coeff of [place] 16.7 H (11.5-14.5) % Plt Count 211 (130-400) K/uL MPV 11.1 (9.4-12.3) fL Immature Gran % (Auto) 0.7 % Neut % (Auto) 89.9 % Lymph % (Auto) 2.7 % [place] % (Auto) 6.7 % Eos % (Auto) 0.0 % Baso % (Auto) 0.0 % Neut # (Auto) 11.48 H (1.4-6.5) K/uL Lymph # (Auto) 0.35 L (1.2-3.4) K/uL [place] # (Auto) 0.86 H (0.24-0.82) K/uL Eos # (Auto) 0.00 (0-0.50) K/uL Baso # (Auto) 0.00 (0-0.2) K/uL Immature Gran # (Auto) 0.09 H (0.00-0.02) K/uL PT (9.0-12.0) Seconds INR (0.9-1.1) APTT (21.0-31.0) Seconds PTT Ratio Sodium (136-145) mmol/L Potassium (3.5-5.1) mmol/L Chloride (98-107) mmol/L Carbon Dioxide (21-32) mmol/L Anion Gap (3-11) BUN (6-23) mg/dl Creatinine (0.6-1.2) mg/dl Est Cr Clr Drug Dosing Est GFR ( Amer) ml/min Est GFR (Non-Af Amer) ml/min BUN/Creatinine Ratio (10-20) Glucose (70-99(Fasting)) mg/dl Calcium (8.5-10.1) mg/dl Magnesium (1.7-2.4) mg/dl Total Bilirubin (0.2-1.0) mg/dl AST (13-39) U/L ALT (7-52) U/L Alkaline Phosphatase (34-104) U/L Total Creatine Kinase (26-192) U/L Troponin I High Sens (0-14) pg/ml Total Protein (6.0-8.3) gm/dl Albumin (3.4-5.0) gm/dl Globulin (2.5-4.0) gm/dl Albumin/Globulin Ratio (0.9-2) TSH (0.300-4.500) uIu/ml Free T4 (0.61-1.60) ng/dl Urine Color Yellow Urine Appearance Clear (Clear) Urine pH 5.5 (4.5-7.5) Ur Specific [place] 1.017 (1.000-1.030) Urine Protein Trace H (Negative) Urine Glucose (UA) Negative (Negative) Urine Ketones Negative (Negative) Urine Blood Negative (Negative) Urine Nitrite Negative (Negative) Urine Bilirubin Negative (Negative) Urine Urobilinogen Negative (Negative) Ur Leukocyte Esterase Negative (Negative) Urine WBC (Auto) 1-5 (0-5) /hpf Urine RBC (Auto) 0-4 (0-4) /hpf U Hyaline Cast (Auto) 1-5 (0-5) /lpf U Epithel Cells (Auto) 20-30 H (0-5) /lpf Urine Bacteria (Auto) 4+ H (Negative) SARS-CoV-2, RNA, NAAT NEGATIVE (NEGATIVE) 03/16/22 03/16/22 03/16/22 Range/Units 14:31 14:31 14:41 WBC (4.8-10.8) K/ul RBC (3.93-5.22) M/uL Hgb (12.0-16.0) g/dl Hct (34.1-44.9) % MCV (80.0-100.0) fL MCH (25.0-34.0) pg MCHC (32.0-36.0) g/dL RDW Std Deviation (36.4-46.3) fL RDW Coeff of [place] (11.5-14.5) % Plt Count (130-400) K/uL MPV (9.4-12.3) fL Immature Gran % (Auto) % Neut % (Auto) % Lymph % (Auto) % [place] % (Auto) % Eos % (Auto) % Baso % (Auto) % Neut # (Auto) (1.4-6.5) K/uL Lymph # (Auto) (1.2-3.4) K/uL [place] # (Auto) (0.24-0.82) K/uL Eos # (Auto) (0-0.50) K/uL Baso # (Auto) (0-0.2) K/uL Immature Gran # (Auto) (0.00-0.02) K/uL PT 37.2 H (9.0-12.0) Seconds INR 3.8 H (0.9-1.1) APTT 61.4 H* (21.0-31.0) Seconds PTT Ratio 2.2 Sodium 143 (136-145) mmol/L Potassium 2.8 L (3.5-5.1) mmol/L Chloride 109 H (98-107) mmol/L Carbon Dioxide 23 (21-32) mmol/L Anion Gap 11 (3-11) BUN 43 H (6-23) mg/dl Creatinine 0.72 (0.6-1.2) mg/dl Est Cr Clr Drug Dosing Not Reportable Est GFR ( Amer) 97.7 ml/min Est GFR (Non-Af Amer) 84.3 ml/min BUN/Creatinine Ratio 59.7 H (10-20) Glucose 83 (70-99(Fasting)) mg/dl Calcium 9.4 (8.5-10.1) mg/dl Magnesium 2.1 (1.7-2.4) mg/dl Total Bilirubin 1.1 H (0.2-1.0) mg/dl AST 22 (13-39) U/L ALT 13 (7-52) U/L Alkaline Phosphatase 66 (34-104) U/L Total Creatine Kinase 139 (26-192) U/L Troponin I High Sens 95.7 H* (0-14) pg/ml Total Protein 5.8 L (6.0-8.3) gm/dl Albumin 3.4 (3.4-5.0) gm/dl Globulin 2.4 L (2.5-4.0) gm/dl Albumin/Globulin Ratio 1.4 (0.9-2) TSH 0.188 L (0.300-4.500) uIu/ml Free T4 1.15 (0.61-1.60) ng/dl Urine Color Urine Appearance (Clear) Urine pH (4.5-7.5) Ur Specific [place] (1.000-1.030) Urine Protein (Negative) Urine Glucose (UA) (Negative) Urine Ketones (Negative) Urine Blood (Negative) Urine Nitrite (Negative) Urine Bilirubin (Negative) Urine Urobilinogen (Negative) Ur Leukocyte Esterase (Negative) Urine WBC (Auto) (0-5) /hpf Urine RBC (Auto) (0-4) /hpf U Hyaline Cast (Auto) (0-5) /lpf U Epithel Cells (Auto) (0-5) /lpf Urine Bacteria (Auto) (Negative) SARS-CoV-2, RNA, NAAT (NEGATIVE) Administered Medications Discontinued Medications Sodium Chloride (Nss) 500 mls @ 999 mls/hr IV .Q31M ASHUTOSH Stop: 03/16/22 14:00 Last Infusion: 03/16/22 14:30 Dose: 0 mls/hr Documented By: Admin: 03/16/22 13:45 Dose: 999 mls/hr Documented By: OAM Sodium Chloride (Nss 1000ml) 500 mls @ 999 mls/hr IV .Q31M ONE Stop: 03/16/22 16:02 Last Admin: 03/16/22 15:41 Dose: 999 mls/hr Documented By: JUAN Potassium Chloride (K Dm / Wtr) 10 meq in 100 mls @ 100 mls/hr IV ONE ONE; Protocol Stop: 03/16/22 16:42 Last Admin: 03/16/22 16:12 Dose: 100 mls/hr Documented By: OAJerry Lorazepam (Lorazepam 2 Mg/1 Ml Vial) 0.5 mg IV NOW STA; Protocol Stop: 03/16/22 13:59 Last Admin: 03/16/22 14:05 Dose: 0.5 mg Documented By: OAM Lorazepam (Lorazepam 2 Mg/1 Ml Vial) 0.5 mg IV NOW STA; Protocol Stop: 03/16/22 16:35 Last Admin: 03/16/22 16:41 Dose: 0.5 mg Documented By: OAM Morphine Sulfate (Morphine Sulfate 2 Mg/Ml Carp) 2 mg IV NOW STA Stop: 03/16/22 13:59 Last Admin: 03/16/22 14:05 Dose: 2 mg Documented By: OAM Morphine Sulfate (Morphine Sulfate 2 Mg/Ml Carp) 2 mg IV NOW STA Stop: 03/16/22 16:35 Last Admin: 03/16/22 16:41 Dose: 2 mg Documented By: OAJerry Ondansetron HCl (Ondansetron Inj 2 Mg/Ml 2 Ml Vial) 4 mg IV NOW STA Stop: 03/16/22 13:59 Last Admin: 03/16/22 14:05 Dose: 4 mg Documented By: OAM Imaging Data Radiologist's Impression: Chest X-Ray 03/16/22 13:18 XR chest 1V portable CLINICAL HISTORY: weakness TECHNIQUE: Single frontal radiograph of the chest was obtained. Comparison: Comparison is made to chest radiograph 01/10/2022 FINDINGS: No lines and tubes are seen. Cardiomegaly is noted. The lungs are clear. No evidence of pleural effusion or pneumothorax. Degenerative changes are in the bilateral shoulders. IMPRESSION: No acute chest disease. ACT 112: Negative or not required by law. Electronically signed by: Luis Felipe Luna M.D. 03/16/2022 1:[address] 03/16/22 13:18 CT head/brain wo con CLINICAL HISTORY: fall Technique: Contiguous axial CT images of the head were acquired from the base of the skull to the vertex without intravenous contrast administration. Images were viewed in brain, subdural and bone windows. Automated dose lowering techniques and/or adjustment according to patient size were utilized for this exam. Comparison: Comparison is made to CT head 02/06/2022 Findings: The ventricles, basal cisterns, and cerebral sulci are normal. There is no acute intracranial hemorrhage or evidence of acute territorial infarction. Neither mass effect, shift of the midline structures, nor abnormal extra-axial fluid collections are shown. Imaged portions of the paranasal sinuses and mastoid air cells are clear. The orbits appear normal. There are no acute fractures of the calvaria or scalp swelling. Impression: No acute intracranial hemorrhage, no evidence of acute territorial infarction or other acute intracranial disease process. ACT 112: Negative or not required by law. Electronically signed by: Luis Felipe Luna M.D. 03/16/2022 4:29 PM Discharge Plan Visit Data Chief Complaint: Fall ED Provider: Julian Escobar Discharge Problem: Weakness, Falling, Acute dehydration, Hypokalemia, Coagulopathy, Contusion Patient Disposition: Admitted As Inpatient Condition: Fair Forms Stand Alone Forms: [facility] Prescriptions Prescriptions: No Action furosemide 40 mg tablet 40 - 80 mg PO DAILY atorvastatin 20 mg tablet 20 mg PO QAM ipratropium-albuterol 0.5 mg-3 mg(2.5 mg base)/3 mL solution for nebulization 3 ml INHALATION QID ondansetron HCl 4 mg Tablet 4 mg PO Q12 PRN (Reason: Nausea) sennosides-docusate sodium [Senna-S] 8.6-50 mg Tablet 1 tab-cap PO BID cromolyn 4 % drops 1 drp OPL QID PRN (Reason: Itching) thiamine HCl (vitamin B1) 100 mg Tablet 100 mg PO BID warfarin 2.5 mg tablet 0 mg PO DIRECTED Rx Instructions: DIRECTED BY ANTI-COAGULATION CLINIC docusate sodium 50 mg Capsule 50 mg PO BID PRN (Reason: Constipation) triamcinolone acetonide 0.1 % cream 1 applic TOPICAL BID PRN (Reason: FLARE UP) potassium chloride [Klor-Con] 20 mEq packet 20 meq PO AMHS Rx Instructions: WHILE ON LASIX clindamycin phosphate 1 % gel 1 applic TOPICAL BID PRN (Reason: FLARE UPS) meclizine 25 mg Tablet 25 mg PO TID PRN (Reason: DIZZY) levothyroxine 50 mcg tablet 50 mcg PO DAILY ropinirole 2 mg tablet See Rx Instructions .ROUTE .COMPLEX Rx Instructions: 1 TAB IN AM, 1 TAB LUNCH, 1 TAB MID EVENING , 2 TABS @ HS WITH FOOD. omeprazole 20 mg capsule,delayed release(DR/EC) 40 mg PO DAILY montelukast 10 mg tablet 10 mg PO HS calcium citrate 150 mg Capsule 0 mg PO BID hydroxyzine HCl 25 mg Tablet 25 mg PO Q6 PRN (Reason: .ANX/ITCH) ergocalciferol (vitamin D2) [Vitamin D2] 1,250 mcg (50,000 unit) Capsule 1,250 mcg PO WK fluticasone propion-salmeterol [Advair Diskus] 100-50 mcg/dose Blister With Device 1 inh INHALATION BID albuterol sulfate 90 mcg/actuation Hfa Aerosol Inhaler 2 inh INHALATION Q6 PRN (Reason: Shortness Of Breath Or Wheezing) carbidopa-levodopa 25-100 mg Tablet 1 tab PO QID fluticasone propionate [Flonase Allergy Relief] 50 mcg/actuation [place],Suspension 2 spray INTRANASAL DAILY ipratropium bromide 21 mcg (0.03 %) [place],Non-Aerosol 1 spray INTRANASAL QID fluticasone propionate 110 mcg/actuation Hfa Aerosol Inhaler 2 puff INHALATION BID cyanocobalamin (vitamin B-12) 1,000 mcg/mL Syringe 1,000 mcg MO Rx Instructions: INJECTION metaxalone 800 mg tablet 800 mg PO QID Rx Instructions: TAKE 1 TAB IN AM,NOON,PM, HS omega-3 fatty acids Capsule 1,000 mg PO DAILY metoprolol tartrate 25 mg tablet 12.5 mg PO QPM biotin 1 mg Tablet 1 mg PO DAILY diclofenac sodium 1 % Gel 2 g TOPICAL QID Linzess 290 mcg capsule 290 mcg PO DAILY buprenorphine 15 mcg/hour patch weekly 1 patch topical WK PreserVision AREDS-2 250-90-40-1 mg Capsule 1 tab PO BID Probiotic Acidophilus Biobeads 12.9 mg (2 billion cell) Tablet,Delayed Release (Dr/Ec) 2 tab PO DAILY lidocaine HCl 2.8 % Gel 1 applic TOPICAL BID PRN (Reason: APPLY TO AFFECTED AREAA) Referrals Referrals: Debbie Otero PA-C [Primary Care Provider] -
[2022-03-16] MEDS ORDERED: ONDANSETRON INJ 2 MG/ML 2 ML VIAL IV STA (13:58)
[2022-03-16] MEDS ORDERED: MoRPHine SULFATE 2 MG/ML CARP IV STA ×2 (13:58→16:34)
[2022-03-16] MEDS ORDERED: LORazepam 2 MG/1 ML VIAL IV STA ×2 (13:58→16:34)
--- NOTE | 2022-03-16 13:59 | XRay Report ---
XR chest 1V portable CLINICAL HISTORY: weakness TECHNIQUE: Single frontal radiograph of the chest was obtained. Comparison: Comparison is made to chest radiograph 01/10/2022 FINDINGS: No lines and tubes are seen. Cardiomegaly is noted. The lungs are clear. No evidence of pleural effus ion or pneumothorax. Degenerative changes are in the bilateral shoulders. IMPRESSION: No acute chest disease. ACT 112: Negative or not required by law. Electronically signed by: Luis Felipe Luna M.D. 03/16/2022 1:58 PM
[2022-03-16 15:00] LABS: Appearance Urine Clear (Clear); Bacteria Urine Automated 4+ (Negative); Bilirubin Urine Negative (Negative); Blood Urine Negative (Negative); Color Urine Yellow; Epithelial Cell Urine Auto 20-30 /lpf (0-5); Glucose Urine UA Negative (Negative); Ketones Urine Negative (Negative); Leukocyte Esterase Urine Negative (Negative); Nitrite Urine Negative (Negative); Protein Urine Trace (Negative); RBC Urine Automated 0-4 /hpf (0-4); Specific Gravity Urine 1.017 (1.000-1.030); Urobilinogen Urine Negative (Negative); pH Urine 5.5 (4.5-7.5)
[2022-03-16 15:12] LABS: Hematocrit (blood only) 31.8 % (34.1-44.9); Hemoglobin 10.4 g/dl (12.0-16.0); Immature Granulocytes # (auto) 0.09 K/uL (0.00-0.02); Immature Granulocytes % (auto) 0.7 %; Lymphocytes # (auto) 0.35 K/uL (1.2-3.4); Lymphocytes % (auto) 2.7 %; Mean Corpuscular Hemoglobin 30.5 pg (25.0-34.0); Mean Corpuscular Hgb Conc 32.7 g/dL (32.0-36.0); Mean Corpuscular Volume 93.3 fL (80.0-100.0); Mean Platelet Volume 11.1 fL (9.4-12.3); Monocytes # (auto) 0.86 K/uL (0.24-0.82); Monocytes % (auto) 6.7 %; Neutrophils # (auto) 11.48 K/uL (1.4-6.5); Neutrophils % (auto) 89.9 %; Platelet Count 211 K/uL (130-400); RDW Coefficient of Variation 16.7 % (11.5-14.5); RDW Standard Deviation 56.1 fL (36.4-46.3); Red Blood Count 3.41 M/uL (3.93-5.22); White Blood Count 12.78 K/ul (4.8-10.8)
[2022-03-16] MEDS ORDERED: SODIUM CHLORIDE 0.9% 1000ML 500 ML IV ONE (15:32)
[2022-03-16 15:35] LABS: INR 3.8 (0.9-1.1); Partial Thromboplastin Ratio 2.2; Prothrombin Time 37.2 Seconds (9.0-12.0)
[2022-03-16 15:38] LABS: Alanine Aminotransferase 13 U/L (7-52); Albumin Globulin Ratio 1.4 (0.9-2); Albumin Level 3.4 gm/dl (3.4-5.0); Alkaline Phosphatase 66 U/L (34-104); Anion Gap 11 (3-11); Aspartate Aminotransferase 22 U/L (13-39); BUN Creatinine Ratio 59.7 (10-20); Bilirubin,Total 1.1 mg/dl (0.2-1.0); Blood Urea Nitrogen 43 mg/dl (6-23); Calcium 9.4 mg/dl (8.5-10.1); Carbon Dioxide 23 mmol/L (21-32); Chloride 109 mmol/L (98-107); Creatine Kinase 139 U/L (26-192); Est GFR (African American) 97.7 ml/min; Est GFR (Non-African American) 84.3 ml/min; Globulin 2.4 gm/dl (2.5-4.0); Glucose 83 mg/dl (70-99(Fasting)); Magnesium 2.1 mg/dl (1.7-2.4); Potassium 2.8 mmol/L (3.5-5.1); Sodium 143 mmol/L (136-145); Total Protein 5.8 gm/dl (6.0-8.3)
[2022-03-16] MEDS ORDERED: POTASSIUM CHLORIDE / WTR 10 MEQ/100 ML PLCT IV ONE (15:43)
[2022-03-16 15:51] LABS: Partial Thromboplastin Time 61.4 Seconds (21.0-31.0)
[2022-03-16 15:54] LABS: Thyroid Stimulating Hormone 0.188 uIu/ml (0.300-4.500)
[2022-03-16 16:03] LABS: Troponin I High Sensitivity 95.7 pg/ml (0-14)
[2022-03-16 16:26] LABS: T4 Free Thyroxine 1.15 ng/dl (0.61-1.60)
--- NOTE | 2022-03-16 16:32 | CT Scan Report ---
CT head/brain wo con CLINICAL HISTORY: fall Technique: Contiguous axial CT images of the head were acquired from the base of the skull to the mikala kya without intravenous contrast administration. Images were viewed in brain, subdural and bone [facility]. Automated dose lowering techniques and/or adjustment according to patient size were utilized for this exam. Comparison: Comparison is made to CT head 02/06/2022 Findings: The ventricles, basal cisterns, and cerebral sulci are normal. There is no acute intracranial hemorrh age or evidence of acute territorial infarction. Neither mass effect, shift of the midline structures , nor abnormal extra-axial fluid collections are shown. Imaged portions of the paranasal sinuses and mastoid air cells are clear. The orbits appear normal. There are no acute fractures of the calvaria or scalp swelling. Impression: No acute intracranial hemorrhage, no evidence of acute territorial infarction or other acute intracra nial disease process. ACT 112: Negative or not required by law. Electronically signed by: Luis Felipe Luna M.D. 03/16/2022 4:29 PM
--- NOTE | 2022-03-16 16:52 | History & Physical Report ---
Date of Service March 16, 2022 Assessment & Plan (1) Recurrent falls: Plan: Patient is 71 y/o F with PMH hypercoagulopathy on chronic Coumadin, superficial vein thrombosis, HTN, HLD, chronic diastolic CHF, paroxysmal SVT, asthma, Edenilson-Danlos syndrome, gastric bypass, gastroparesis, RLS, GERD, depression, gait abnormality and others listed below presented to ER after fall today. Patient states didn't fall but reached for fork on floor and lowered herself to floor and was unable to get up. Found by home health. Patient denies any injury In ER vitals stable. CK WNL CT head: Negative Patient with recurrent falls. Uses walker to ambulate however is unable to get self off floor. Lives alone PT/OT eval Fall precautions Will likely need placement Recent UTI 02/06/2022 hospitalized for Proteus UTI, sepsis. Clostridium perfringens bacteremia ?contaminant and was initially treated with Zosyn, vancomycin and completed Zosyn. Echo did no show mass or vegetation WBC: 12. UA: 20-30 epithelial cells, 4+ bacteria Pt denies any urinary symptoms Urine culture pending Hypokalemia: K: 2.8. Magnesium WNL In ER received 10 mEq IV KCl Replace and monitor Repeat BMP tonight Depression: Patient tearful in ER. It is reported told home health that she should slit her throat with a knife. To this provider the patient reports doesn't believe in suicide and "would not go through with it and take the easy way out" Behavioral health liaison consult Elevated Troponin: High-sensitivity troponin: 95.7. Was 128 and 100 and 02/2022. Echo 02/08/2022: Mild LVH, EF: 60-65%, mild aortic regurgitation EKG poor tracing but does not appear to have acute ST elevation. Patient denies any chest pain, shortness of breath EKG in am Chronic diastolic heart failure: In ER received IVF Will resume oral Lasix tomorrow Elevated INR History of hypercoagulopathy anticoagulated on Coumadin: INR: 3.8 Hold Coumadin INR in a.m. Parkinson's: Continue carbidopa levodopa HTN: Continue metoprolol succinate HLD: Continue statin Hypothyroidism: Continue levothyroxine Chronic pain: Continue home meds RLS: Continue ropinirole Chronic anemia: Hemoglobin: 10.4. At baseline Asthma: No signs acute exacerbation Continue home inhalers History gastric bypass History GERD: Continue PPI History of Edenilson-Danlos syndrome DVT Prophylaxis On Coumadin with elevated INR Full code as per discussion with pt Follows with Dr Lavern Mccarty for routine care Pt was seen and care coordinated with Dr Walton. See addendum History of Present Illness Chief Complaint: Fall Primary Care Provider: Debbie Otero PA-C Patient is 71 y/o F with PMH hypercoagulopathy on chronic Coumadin, superficial vein thrombosis, HTN, HLD, chronic diastolic CHF, paroxysmal SVT, asthma, Edenilson-Danlos syndrome, gastric bypass, gastroparesis, RLS, GERD, depression, gait abnormality and others listed below presented to ER after fall today. Patient states today dropped a fork on the floor and bent over to pick it up and lowered herself to ground and was unable to get up off floor. Patient denies any CP, SOB, dizziness, LOC. It is reported that home health visit today and patient did not answer door. She was found on floor in kitchen lying on her back by home health worker. There was a pot on the stove top that was shelter off the burner and objects near the hot burner were turning black. When EMS arrived it is reported patient stated did not want to go and picked up a knife and said she should just slit her throat. Patient reports doesn't believe in suicide and "would not go through with it and take the easy way out". Has chronic pain, denies any new pain. Uses walker to ambulate. Has been having increased falls and is unable to get self off floor. She lives at home alone with her dogs. She states yesterday she hit her right knee/leg with her walker and has ecchymosis to area. History recent hospitalization 02/06/22-02/16/22 for fall, rhabdomyolysis, JAEL, Proteus UTI, Clostridium perfringens bacteremia ?contaminant and was initially treated with Zosyn, vancomycin and completed Zosyn. Echo did no show mass or vegetation. She was discharged to [facility] for rehab. Denies fever/chills, diaphoresis, N/V/D/C, ABBOTT, dizziness, syncope, vision changes, neck pain, CP, SOB, orthopnea, palpitations, cough, sore throat, choking, otalgia, rhinorrhea, abdominal pain, paresthesias, weakness, extremity weakness, increased extremity edema, rashes, urinary symptoms. Allergies Allergy/AdvReac Type Severity Reaction Status Date / Time ammonia Allergy Severe FACE, Verified 02/06/22 18:48 LIPS, TONGUE EDEMA buspirone Allergy Severe NEURO Verified 02/06/22 18:48 COMPLICATIONS duloxetine Allergy Intermediate RASH Verified 02/06/22 18:48 ITCHING lisinopril Allergy Intermediate cough Verified 02/06/22 18:48 adhesive Allergy Mild skin tears Verified 02/06/22 18:48 NSAIDS (Non-Steroidal Allergy Unknown not Verified 02/06/22 18:48 Anti-Inflamma supposed to use-S/P GASTRIC BYPASS vancomycin Allergy Unknown ON GMG MED Verified 02/06/22 18:48 LIST venlafaxine Allergy Unknown AFFECTS Verified 02/06/22 18:48 LEGS diphenhydramine AdvReac Intermediate RESTLESS Verified 02/06/22 18:48 LEGS gabapentin AdvReac Intermediate MUSCLE Verified 02/06/22 18:48 STIFFNESS POLLEN Allergy Severe FACE, Uncoded 02/06/22 18:48 LIPS, TONGUE EDEMA Dust Allergy Intermediate ROACHES,DUST Uncoded 02/06/22 18:48 MITES-CLOGGED UP SINUSES-CAN'T BREATHE Home Medications Medication Instructions Recorded Confirmed Type L.acidoph-L.rhamn-B.bifidum-B.long 2 tab PO DAILY 01/09/22 03/16/22 History 12.9 mg (2 billion cell) tablet, DR (Probiotic Acidophilus Jimmie) albuterol sulfate 90 mcg/actuation 2 inh inhalation Q6 PRN Shortness 01/09/22 03/16/22 History aerosol inhaler Of Breath Or Wheezing atorvastatin 20 mg tablet 20 mg PO QAM 01/09/22 03/16/22 History biotin 1 mg tablet 1 mg PO DAILY 01/09/22 03/16/22 History buprenorphine 15 mcg/hour weekly 1 patch topical WK 01/09/22 03/16/22 History transdermal patch carbidopa 25 mg-levodopa 100 mg 1 tab PO QID 01/09/22 03/16/22 History tablet clindamycin phosphate 1 % topical 1 applic topical BID PRN FLARE UPS 01/09/22 03/16/22 History gel cromolyn 4 % eye drops 1 drp OPL QID PRN Itching 01/09/22 03/16/22 History cyanocobalamin (vitamin B-12) 1,000 mcg MO 01/09/22 03/16/22 History 1,000 mcg/mL injection syringe docusate sodium 50 mg capsule 50 mg PO BID PRN Constipation 01/09/22 03/16/22 History ergocalciferol (vitamin D2) 1,250 1,250 mcg PO WK 01/09/22 03/16/22 History mcg (50,000 unit) capsule (Vitamin D2) fluticasone 100 mcg-salmeterol 50 1 inh inhalation BID 01/09/22 03/16/22 History mcg/dose blistr powdr for inhalation (Advair Diskus) fluticasone propionate 50 2 spray intranasal DAILY 01/09/22 03/16/22 History mcg/actuation nasal spray,suspension (Flonase Allergy Relief) furosemide 40 mg tablet 40 - 80 mg PO DAILY INCREASED 01/09/22 03/16/22 History SWELLING IN LEGS hydroxyzine HCl 25 mg tablet 25 mg PO Q6 PRN .ANX/ITCH 01/09/22 03/16/22 History ipratropium 0.5 mg-albuterol 3 mg 3 ml inhalation QID 01/09/22 03/16/22 History (2.5 mg base)/3 mL nebulization soln ipratropium bromide 21 mcg (0.03 1 spray intranasal QID 01/09/22 03/16/22 History %) nasal spray levothyroxine 50 mcg tablet 50 mcg PO DAILY 01/09/22 03/16/22 History lidocaine HCl 2.8 % topical gel 1 applic topical BID PRN APPLY TO 01/09/22 03/16/22 History AFFECTED AREAA linaclotide 290 mcg capsule 290 mcg PO DAILY 01/09/22 03/16/22 History (Linzess) meclizine 25 mg tablet 25 mg PO TID PRN DIZZY 01/09/22 03/16/22 History metaxalone 800 mg tablet 800 mg PO QID 01/09/22 03/16/22 History metoprolol tartrate 25 mg tablet 12.5 mg PO DAILY 01/09/22 03/16/22 History montelukast 10 mg tablet 10 mg PO HS 01/09/22 03/16/22 History omega-3 fatty acids 1,000 mg PO DAILY 01/09/22 03/16/22 History omeprazole 20 mg capsule,delayed 40 mg PO DAILY 01/09/22 03/16/22 History release ondansetron HCl 4 mg tablet 4 mg PO Q12 PRN Nausea 01/09/22 03/16/22 History potassium chloride 20 mEq oral 20 meq PO AMHS 01/09/22 03/16/22 History packet (Klor-Con) ropinirole 2 mg tablet See Rx Instructions .Route .COMPLEX 01/09/22 03/16/22 History sennosides 8.6 mg-docusate sodium 1 tab-cap PO BID 01/09/22 03/16/22 History 50 mg tablet (Senna-S) thiamine HCl (vitamin B1) 100 mg 100 mg PO BID 01/09/22 03/16/22 History tablet triamcinolone acetonide 0.1 % 1 applic topical BID PRN FLARE UP 01/09/22 03/16/22 History topical cream vit C 250 mg-vit E 90 mg-zinc 40 1 tab PO BID 01/09/22 03/16/22 History mg-copper 1 [id number] capsule (PreserVision AREDS-2) warfarin 2.5 mg tablet 0 mg PO DIRECTED 01/09/22 03/16/22 History Past Med/Surg History Medical History ADHD Asthma uses PRN INH 3-4 x wk Bulging of intervertebral disc Claustrophobia Difficult intravenous access Dysphagia Edenilson-Danlos syndrome ISAC (generalized anxiety disorder) Gastroparesis GERD (gastroesophageal reflux disease) Hearing deficit History of colon polyps History of colon polyps History of DVT (deep vein thrombosis) chronic anticoagulation History of intestinal obstruction Hyperlipidemia Hypothyroidism Osteoarthritis Osteoporosis Peripheral neuropathy Protein C deficiency Pulmonary embolism 07/2018 - treated w/ lovenox - unk etiology Renal cyst Restless leg syndrome Sleep apnea unable to tolerate CPAP Tachycardia Thoracic aortic aneurysm follows w/ Dr. Arredondo - evaluated within last 6 mo Thyroid nodule Surgical History History of abdominoplasty + hernia repair History of arthroscopy of left knee History of bilateral breast reduction surgery History of cholecystectomy History of colonoscopy History of esophagogastroduodenoscopy (EGD) History of gastric bypass History of intestinal surgery History of laparotomy History of left knee replacement History of right knee joint replacement History of tonsillectomy Hx of melanoma excision shoulder S/P hysterectomy Self extubation attempted post gastric bypass Status post biopsy of thyroid gland benign Family History Uncle Stomach cancer Other No family history of adverse response to anesthesia No pertinent family history in first degree relatives Social History Smoking Status: Never smoker Second Hand Exposure: No; Hx Alcohol Use: No Hx Substance Use: No Preferred Language: Romansh Communication Ability: Unable Communication Ability Comment: pt is obtunded Visual Impairment: Limited Hearing Ability: Normal Curriculum Advisory Teacher Required: No Beliefs That Will Affect Care: None marital status: Single Current Living Situation: Alone Current Living Situation Comment: has friends to help when needed How many Children do You have: 0 Feels Safe at Home: Declines to Answer Assistive Devices: Walker Review of Systems Review of Systems: All systems reviewed & are unremarkable except as noted in HPI & below Physical Exam Physical Exam: General: no distress, WDWN Head: normocephalic, atraumatic Eyes: conjunctiva non-injected, anicteric ENT: normal inspection external ears, nose, mucous membranes moist Neck: supple, trachea midline Lungs: clear, no respiratory distress, no wheezing/rhonchi/rales CV: RRR, +murmur, 2+ pretibial edema Abd: normal BS, soft, non-tender Ext: no cyanosis, no calf tenderness, RLE +large ecchymosis medial aspect leg/medial knee. +multiple scattered ecchymosis to bilateral upper and lower extremities Neuro: A&O x 3, no focal deficits noted,+tearful at times Skin: warm, dry Results & Data Results & Data ([facility]) Vital Signs (Past 12 Hours) Vital Signs Temp Pulse Pulse Resp BP BP Pulse Ox 03/16/22 14:00 88 18 97 03/16/22 13:18 98 03/16/22 12:50 97 H 22 107/58 L 95 03/16/22 11:55 36.8 C 87 20 96/73 L 98 O2 Del Method 03/16/22 14:00 Room Air 03/16/22 13:18 Room Air 03/16/22 12:50 Room Air 03/16/22 11:55 Room Air Laboratory Results Short CBC 03/16/22 Range/Units 14:31 WBC 12.78 H (4.8-10.8) K/ul Hgb 10.4 L (12.0-16.0) g/dl Hct 31.8 L (34.1-44.9) % Plt Count 211 (130-400) K/uL BMP 03/16/22 14:31 Sodium 143 Potassium 2.8 L Chloride 109 H Carbon Dioxide 23 BUN 43 H Creatinine 0.72 Glucose 83 Calcium 9.4 Cardiac Enzymes 03/16/22 Range/Units 14:31 Total Creatine Kinase 139 (26-192) U/L Liver Function 03/16/22 Range/Units 14:31 Total Bilirubin 1.1 H (0.2-1.0) mg/dl AST 22 (13-39) U/L ALT 13 (7-52) U/L Alkaline Phosphatase 66 (34-104) U/L Albumin 3.4 (3.4-5.0) gm/dl Urine 03/16/22 Range/Units 14:23 Urine Color Yellow Urine Appearance Clear (Clear) Urine pH 5.5 (4.5-7.5) Ur Specific [place] 1.017 (1.000-1.030) Urine Protein Trace H (Negative) Urine Glucose (UA) Negative (Negative) Diagnostic Findings Chest X-Ray 03/16/22 13:18 XR chest 1V portable CLINICAL HISTORY: weakness TECHNIQUE: Single frontal radiograph of the chest was obtained. Comparison: Comparison is made to chest radiograph 01/10/2022 FINDINGS: No lines and tubes are seen. Cardiomegaly is noted. The lungs are clear. No evidence of pleural effusion or pneumothorax. Degenerative changes are in the bilateral shoulders. IMPRESSION: No acute chest disease. ACT 112: Negative or not required by law. Electronically signed by: Luis Felipe Luna M.D. 03/16/2022 1:[address] 03/16/22 13:18 CT head/brain wo con CLINICAL HISTORY: fall Technique: Contiguous axial CT images of the head were acquired from the base of the skull to the vertex without intravenous contrast administration. Images were viewed in brain, subdural and bone windows. Automated dose lowering techniques and/or adjustment according to patient size were utilized for this exam. Comparison: Comparison is made to CT head 02/06/2022 Findings: The ventricles, basal cisterns, and cerebral sulci are normal. There is no acute intracranial hemorrhage or evidence of acute territorial infarction. Neither mass effect, shift of the midline structures, nor abnormal extra-axial fluid collections are shown. Imaged portions of the paranasal sinuses and mastoid air cells are clear. The orbits appear normal. There are no acute fractures of the calvaria or scalp swelling. Impression: No acute intracranial hemorrhage, no evidence of acute territorial infarction or other acute intracranial disease process. ACT 112: Negative or not required by law. Electronically signed by: Luis Felipe Luna M.D. 03/16/2022 4:29 PM Supervising Physician Co-Signing Physician Notes 71-year-old female with past medical history significant for hypothyroidism, h yperlipidemia, Edenilson-Danlos syndrome, mild persistent asthma without complication, obstructive sleep apnea, intermittent asthma, thoracic aortic aneurysm, hypertension, chronic diastolic CHF, paroxysmal supraventricular tachycardia, superficial vein thrombosis, morbid obesity, vitamin D deficiency, intestinal malabsorption following gastrectomy, gastroparesis, GERD, restless legs syndrome, fibromyalgia, osteoporosis, hypercoagulopathy, history of gastric bypass, depression, gait abnormality presented to our ED w/ c/o Fall. Pt was in mild distress due to her restless leg (she had not been able to take her AM meds), AOx4, fell to floor (lowered down slowly) while trying to reach and poultry picking machine tender fork, no dizziness/chest pain/Sob/LOC/head trauma surrounding the event. Pt does report hitting her rt medial knee yesterday where she has sustained a large bruise. Pt reports of falling atleast 4 times in the last one year. Pt does report that she had transiently thought of not wanting to live when she fell but denies active SI/HI at bedside. She has ambulatory dysfunction, walks w/ walker. Labs reviewed, Hb stable at baseline, trend HnH in AM, K 2.8, replete total of 60 meq iv/po combination and repeat at 10 pm and then in AM. Admitting CXR and Admitting CT H w/ no acute findings. UA not s/o UTI. INR 3.8, hold coumadin, PT/INR in AM. May be we need to d/w patient regarding risk and be nefits of coumadin therapy as she has recurrent falls. . ?Behavioral liason consult. WBC elevated, no fever, no pain/burn w/ passing urine, follow in AM, pt afebrile. Monitor off antibiotic. Upon Exam: GENERAL: Alert and oriented x4. mild distress, on RA. HEENT: No pallor, no icterus. Pupils equal, round and reactive to light. Oral mucosa moist. NECK: No JVD, no neck masses. HEART: S1 and S2 heard. Regular rate and rhythm. ? murmur, no gallop. RESPIRATORY SYSTEM: Normal AP diameter. No accessory muscle use. No wheezing, no crackles. ABDOMEN: Soft, bowel sounds present, nontender, no distention. CENTRAL NERVOUS SYSTEM: No facial droop. Speech is clear. Obeys simple commands. Moves extremities. EXTREMITIES: Restless legs b/l, atrophied b/l feet muscles noted, 1-2+ BLE edema, Rt medial thigh/knee w/ large ecchymosis. UC w/ roxann urine collection noted. I have seen and examined the patient and have discussed the case with the provider above. I agree with the assessment and plan as stated.
[2022-03-16] MEDS ORDERED: POTASSIUM CHLORIDE CRTAB 20 MEQ TABCR PO STA (17:26)
[2022-03-16] MEDS ORDERED: rOPINIRole HCL 2 MG TABLET PO ONE (17:41)
[2022-03-16] MEDS ORDERED: ALBUTEROL HFA 8 GM INHALER INH PRN (18:33)
[2022-03-16] MEDS ORDERED: POLYETHYLENE (MIRALAX) 17 GM PACK PO PRN (18:33)
[2022-03-16] MEDS ORDERED: MAGNESIUM HYDROXIDE SUSP 30 ML UDC PO PRN (18:33)
[2022-03-16] MEDS ORDERED: DOCUSATE SODIUM 100 MG CAP PO PRN (18:54)
[2022-03-16] MEDS ORDERED: POTASSIUM CHLORIDE CRTAB 20 MEQ TABCR PO ONE (20:00)
[2022-03-16] MEDS ORDERED: POTASSIUM CHLORIDE / WTR 10 MEQ/100 ML PLCT IV SCH (20:30)
[2022-03-16] MEDS: THIAMINE HCL 100 MG TAB PO SCH (20:54)
[2022-03-16] MEDS: FLUTICASONE/VILANTEROL 100/25MCG 14 PUFFS/INHALER INH SCH (20:54)
[2022-03-16] MEDS: MONTELUKAST SODIUM 10 MG TABLET PO SCH (20:54)
[2022-03-16] MEDS: rOPINIRole HCL 2 MG TABLET PO SCH (20:54)
[2022-03-16] MEDS: IPRATROPIUM BROMIDE NASAL SPRAY 0.06% 15ML NAE SCH (20:54)
[2022-03-16] MEDS: CARBIDOPA/LEVODOPA 25/100MG TAB PO SCH (20:54)
[2022-03-16] MEDS ORDERED: BUPRENORPHINE 5 MCG/HR TDSY TD SCH (21:00)
[2022-03-16] MEDS ORDERED: METAXALONE 800 MG TABLET PO SCH (21:00)
[2022-03-16] MEDS: POTASSIUM CHLORIDE / WTR 10 MEQ/100 ML PLCT IV SCH ×2 (21:00→22:15)
--- NOTE | 2022-03-16 21:24 | Electrocardiogram Report ---
Test Reason : Blood Pressure : / mmHG Vent. Rate : 087 BPM Atrial Rate : 087 BPM P-R Int : 160 ms QRS Dur : 120 ms QT Int : 392 ms P-R-T Axes : 060 011 089 degrees QTc Int : 471 ms Poor data quality, interpretation may be adversely affected Normal sinus rhythm Non-specific intra-ventricular conduction delay Borderline ECG When compared with ECG of 06-FEB-2022 17:44, Non-specific intra-ventricular conduction delay has replaced Incomplete right bundle branch block ST no longer depressed in Inferior leads Nonspecific T wave abnormality no longer evident in Inferior leads T wave inversion less evident in Anterolateral leads Confirmed by Alexey Jennings ([id number]) on 03/16/2022 9:24:02 PM Referred By: Confirmed By:Alexey Jennings
[2022-03-16 22:27] LABS: Amphetamines+Metham, Urine Neg (Neg); Barbiturates, Urine Neg (Neg); Benzodiazepine, Urine Neg (Neg); Cocaine, Urine Neg (Neg); MDMA (Ecstacy), Urine Neg (Neg); Methadone, Urine Neg (Neg); Opiate, Urine Pos (Neg); Phencyclidine, Urine Neg (Neg)
[2022-03-16 22:41] LABS: BUN Creatinine Ratio 44.6 (10-20); Creatinine Clr Calc Pharmacy 59.6 ml/min; Est GFR (African American) 82.2 ml/min; Est GFR (Non-African American) 70.9 ml/min; Potassium 3.1 mmol/L (3.5-5.1)
[2022-03-17] MEDS ORDERED: DOXYCYCLINE HYCLATE 100 MG in DEXTROSE 5% 100 ML IV STA (01:19)
--- NOTE | 2022-03-17 01:25 | Communication Note ---
Date of Service: March 17, 2022 Right lower leg noted to be red and swollen as per RN. Ecchymotic thighs noted to be swollen as well. INR from admission 3.8 AP Cellulitis, no sepsis for now Ecchymotic thigh swelling, history of trauma, Coumadin coagulopathy rule out hematoma Doxycycline for cellulitis CT femur bilateral rule out hematoma Continue to hold Coumadin Will relay to AM provider.
[2022-03-17] MEDS: LEVOTHYROXINE SODIUM 50 MCG TABLET PO SCH (05:57)
--- NOTE | 2022-03-17 06:28 | CT Scan Report ---
CT femur RT wo con CLINICAL HISTORY: swelling, fall COMPARISON STUDY: Right femur and right knee radiographs February 06, 2022. Right femur CT January 10, 2022 . TECHNIQUE: Axial images of the right femur and thigh were obtained without intravenous contrast. Sagi ttal and coronal reconstructions were viewed. Automated exposure control was utilized for the study. A dose lowering technique was utilized adhering to the principles of ALARA. FINDINGS: Evaluation of the right knee arthroplasty is suboptimal given motion artifact. However, ali gnment appears anatomic and there is no periprosthetic fracture. No fluid collection within the right thigh is present. There is no acute fracture within the right femur. Alignment of the right hip is a natomic. There is skin thickening and subcutaneous stranding of the posterior medial right thigh. Th ere is no associated fluid collection. There is also a 3.5 x 1.1 cm subcutaneous focus of soft tissue thickening/induration of the medial right thigh shown on axial image 112 [id number]. There is no associated fluid collection. Subcutaneous edema has improved since CT of January 10, 2022. No significant abnormali ties identified within visualized portions of the pelvis. IMPRESSION: 1. No acute fracture within the right femur. 2. Suboptimal evaluation of the right knee arthroplasty given motion artifact. However, hardware inta ct with no periprosthetic fracture identified. 3. 3.5 to 1.1 cm subcutaneous focus of soft tissue thickening/induration of the medial right thigh. T his is nonspecific but may reflect cellulitis or a contusion. No associated fluid collection. 4. Skin thickening and subcutaneous stranding of the posterior medial right thigh which could reflect edema or cellulitis. ACT 112: Negative or not required by law. Electronically signed by: Norris Blackburn M.D. 03/17/2022 6:26 AM
--- NOTE | 2022-03-17 06:39 | CT Scan Report ---
CT femur LT wo con CLINICAL HISTORY: worsening swelling. hx fall COMPARISON STUDY: Left femur CT March 17, 2021. TECHNIQUE: Axial images of the left femur were obtained without IV contrast. Sagittal and coronal rec onstructions were viewed. Automated exposure control was utilized for the study. A dose lowering santy hnique was utilized adhering to the principles of ALARA. FINDINGS: This exam is mildly compromised by motion artifact. No acute fracture within the left femur . There is no evidence for acute osteomyelitis. Left knee arthroplasty is intact. No periprosthetic f racture. No significant abnormality is identified within visualized portions of the pelvis. Cisneros bal loon within the bladder is present. Note is made of subcutaneous edema of the inferior left buttock w hich extends into the adjacent gluteal musculature. There is no soft tissue gas. There is no fluid co llection. Otherwise, there is mild subcutaneous edema of the left thigh. IMPRESSION: 1. No acute fracture within the left femur. Exam mildly compromised by motion artifact. 2. Intact total left knee arthroplasty. No periprosthetic fracture. 3. Subcutaneous fluid of the inferior left buttock which involves the gluteal musculature. This could reflect edema or cellulitis/myositis. No fluid collection. No soft tissue gas. No evidence for acute osteomyelitis. ACT 112: Negative or not required by law. Electronically signed by: Norris Blackburn M.D. 03/17/2022 6:37 AM
[2022-03-17 08:08] LABS: Hematocrit (blood only) 29.5 % (34.1-44.9); Hemoglobin 9.6 g/dl (12.0-16.0); Mean Corpuscular Hemoglobin 29.9 pg (25.0-34.0); Mean Corpuscular Hgb Conc 32.5 g/dL (32.0-36.0); Mean Corpuscular Volume 91.9 fL (80.0-100.0); Mean Platelet Volume 10.6 fL (9.4-12.3); Platelet Count 210 K/uL (130-400); RDW Standard Deviation 57.8 fL (36.4-46.3); Red Blood Count 3.21 M/uL (3.93-5.22); White Blood Count 10.29 K/ul (4.8-10.8)
[2022-03-17 08:17] LABS: INR 3.5 (0.9-1.1); Prothrombin Time 34.5 Seconds (9.0-12.0)
[2022-03-17 08:29] LABS: Eosinophils # (auto) 0.01 K/uL (0-0.50); Eosinophils % (auto) 0.1 %; Immature Granulocytes # (auto) 0.09 K/uL (0.00-0.02); Immature Granulocytes % (auto) 0.9 %; Lymphocytes # (auto) 0.36 K/uL (1.2-3.4); Lymphocytes % (auto) 3.5 %; Monocytes # (auto) 0.54 K/uL (0.24-0.82); Monocytes % (auto) 5.2 %; Neutrophils # (auto) 9.29 K/uL (1.4-6.5); Neutrophils % (auto) 90.3 %
[2022-03-17] MEDS: rOPINIRole HCL 1 MG TABLET PO SCH ×3 (08:33→17:52)
[2022-03-17] MEDS: THIAMINE HCL 100 MG TAB PO SCH ×2 (08:34→20:19)
[2022-03-17] MEDS: ATORVASTATIN 20 MG TAB PO SCH (08:34)
[2022-03-17] MEDS: FUROSEMIDE 40 MG TAB PO SCH (08:34)
[2022-03-17] MEDS: CARBIDOPA/LEVODOPA 25/100MG TAB PO SCH ×4 (08:34→20:17)
[2022-03-17] MEDS: PANTOprazole 40 MG TAB PO SCH (08:34)
[2022-03-17] MEDS: LINACLOTIDE 145 MCG CAPSULE PO SCH (08:35)
[2022-03-17] MEDS: IPRATROPIUM BROMIDE NASAL SPRAY 0.06% 15ML NAE SCH ×4 (08:36→20:18)
[2022-03-17] MEDS: FLUTICASONE PROPIONATE NA SPR 16 GM BTL NAE SCH (08:36)
[2022-03-17] MEDS: METOPROLOL TARTRATE 25 MG TAB PO SCH (08:37)
[2022-03-17 08:46] LABS: BUN Creatinine Ratio 43.3 (10-20); Creatinine Clr Calc Pharmacy 73.8 ml/min; Est GFR (African American) 102.5 ml/min; Est GFR (Non-African American) 88.4 ml/min; Potassium 3.1 mmol/L (3.5-5.1)
[2022-03-17] MEDS ORDERED: POTASSIUM CHLORIDE CRTAB 20 MEQ TABCR PO STA (11:18)
[2022-03-17] MEDS ORDERED: POTASSIUM CHLORIDE PWD 20 MEQ PACK PO ONE (11:44)
[2022-03-17] MEDS: ACETAMINOPHEN 325 MG TAB PO PRN (12:03)
[2022-03-17] MEDS: POTASSIUM CHLORIDE / WTR 10 MEQ/100 ML PLCT IV SCH ×2 (12:05→13:10)
--- NOTE | 2022-03-17 17:17 | Hospitalist Progress Note ---
Date of Service March 17, 2022 Assessment & Plan (1) Recurrent falls: Plan: Patient is 71 y/o F with PMH hypercoagulopathy on chronic Coumadin, superficial vein thrombosis, HTN, HLD, chronic diastolic CHF, paroxysmal SVT, asthma, Edenilson-Danlos syndrome, gastric bypass, gastroparesis, RLS, GERD, depression, gait abnormality was brought to the hospital after she was found on the floor. Patient states didn't fall but reached for fork on floor and lowered herself to floor and was unable to get up. CT head showed no acute intracranial abnormality PT/OT eval Fall precautions Consider inpatient rehab UTI 02/06/2022 hospitalized for Proteus UTI, sepsis. Clostridium perfringens bacteremia ?contaminant and was initially treated with Zosyn, vancomycin and completed Zosyn. Echo did no show mass or vegetation Urine cx positive for gram negative bacilli Will start on Rocephin IV Hypokalemia: K: 2.8 on admission K 3.1 today K replaced Continue monitor BMP Depression: Patient tearful because they want to put her dog down Pt denies any suicidal thought Behavioral health liaison consult Chronic Elevated Troponin: High-sensitivity troponin: 95.7. Was 128 and 100 and 02/2022. Echo 02/08/2022: Mild LVH, EF: 60-65%, mild aortic regurgitation Denies any chest pain Continue metoprolol RUE swelling/tenderness Right shoulder pain Will gt an XR fof the shoulder Will get an u/s of RUE Continue to hold coumadin Possible cellultis CT right Lower extremity showed 3.5 to 1.1 cm subcutaneous focus of soft tissue thickening/induration of the medial right thigh. No associated fluid collection. Skin thickening and subcutaneous stranding of the posterior medial right thigh which could reflect edema or cellulitis. CT left LE showed Subcutaneous fluid of the inferior left buttock which involves the gluteal musculature. This could reflect edema or cellulitis/myositis. No fluid collection. Continue doxycycline Chronic diastolic heart failure: No sign of volume overload Continue lasix 20mg daily Elevated INR History of hypercoagulopathy anticoagulated on Coumadin: INR: 3.8 on admission, INR 3.5 today Coumadin on hold Continue Monitor INR Parkinson's: Continue carbidopa levodopa HTN: Continue metoprolol succinate HLD: Continue statin Hypothyroidism: Continue levothyroxine Chronic pain: Continue home meds RLS: Continue ropinirole Chronic anemia: Hemoglobin: 10.4. At baseline Asthma: No signs acute exacerbation Continue home inhalers History gastric bypass History GERD: Continue PPI History of Edenilson-Danlos syndrome DVT Prophylaxis INR 3.5 ( coumadin on hold ) Full code Admission and Anticipated Discharge Date Admission Date: March 16, 2022 Subjective Pt was seen and examined for follow up of fall and ambulatory dysfunction Lying in bed with no acute distress. 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 captain for 14 yrs She is complaint of pain in her RUE that she said it is occurred after EMS pulled her on her RUE when they were trying to help her on the floor She agreed to go to rehab today She said that she is not suicidal Denies any chest pain, palpitation, dizziness and SOB Review of Systems Review of Systems: All systems reviewed & are unremarkable except as noted in Subjective Physical Exam Physical Exam: General- No acute distress, tearful Head- atraumatic Eyes- PERRL, EOMI, ENT- oropharynx clear Neck- supple, no JVD Lungs- clear to auscultation Heart- regular rhythm; + murmur Abdomen- normal bowel sounds, soft, nontender Extremities- +edema, RUE swelling and tenderness, +large ecchymosis medial aspect leg/medial knee. +multiple scattered ecchymosis in extremities Neuro- alert, oriented x 3; PERRL, EOMI; no facial palsy; no dysarthria Skin- warm & dry Results & Data Results & Data ([facility]) Vital Signs (Past 12 Hours) Vital Signs Temp Pulse Pulse Resp BP Pulse Ox O2 Del Method 03/17/22 16:04 37.0 C 93 H 16 133/73 94 Room Air 03/17/22 15:44 75 03/17/22 12:01 36.6 C 92 H 16 116/75 95 Room Air 03/17/22 08:00 Room Air 03/17/22 07:41 80 03/17/22 07:39 37.1 C 78 16 143/84 H 97 Room Air
[2022-03-17] MEDS: DOXYCYCLINE HYCLATE 100 MG CAP PO SCH (17:51)
[2022-03-17] MEDS ORDERED: BUPRENORPHINE 5 MCG/HR TDSY TD SCH (18:00)
[2022-03-17] MEDS: cefTRIAXone SODIUM 1,000 MG in DEXTROSE 5% 50 ML IV SCH (18:37)
--- NOTE | 2022-03-17 19:41 | XRay Report ---
XR shoulder RT min 2V routine CLINICAL HISTORY: right shoulder pain COMPARISON: Right shoulder and right humerus radiographs August 09, 2019. FINDINGS: There is elevation of the humeral head with narrowing of the subacromial space. No acute f racture is present. Moderate osteoarthritis of the right acromioclavicular joint is noted. No suspici ous osseous lesion is noted. IMPRESSION: 1. No acute fracture or dislocation within the right shoulder. 2. Elevation of the humeral head with narrowing of the subacromial space. 3. Moderate osteoarthritis of the right acromioclavicular joint. ACT 112: Negative or not required by law. Electronically signed by: Norris Blackburn M.D. 03/17/2022 7:40 PM
[2022-03-17] MEDS: MONTELUKAST SODIUM 10 MG TABLET PO SCH (20:18)
[2022-03-17] MEDS: FLUTICASONE/VILANTEROL 100/25MCG 14 PUFFS/INHALER INH SCH (20:18)
[2022-03-17] MEDS: rOPINIRole HCL 2 MG TABLET PO SCH (20:19)
[2022-03-18] MEDS: LEVOTHYROXINE SODIUM 50 MCG TABLET PO SCH (05:40)
[2022-03-18 07:00] LABS: Hematocrit (blood only) 30.1 % (34.1-44.9); Hemoglobin 9.6 g/dl (12.0-16.0); Mean Corpuscular Hemoglobin 30.1 pg (25.0-34.0); Mean Corpuscular Hgb Conc 31.9 g/dL (32.0-36.0); Mean Corpuscular Volume 94.4 fL (80.0-100.0); Mean Platelet Volume 10.6 fL (9.4-12.3); Platelet Count 211 K/uL (130-400); RDW Coefficient of Variation 17.1 % (11.5-14.5); RDW Standard Deviation 59.7 fL (36.4-46.3); Red Blood Count 3.19 M/uL (3.93-5.22); White Blood Count 8.66 K/ul (4.8-10.8)
[2022-03-18 07:35] LABS: INR 2.3 (0.9-1.1); Prothrombin Time 23.1 Seconds (9.0-12.0)
[2022-03-18 07:39] LABS: BUN Creatinine Ratio 34.8 (10-20); Calcium 8.6 mg/dl (8.5-10.1); Creatinine Clr Calc Pharmacy 73.4 ml/min; Est GFR (African American) 101.5 ml/min; Est GFR (Non-African American) 87.6 ml/min; Potassium 3.7 mmol/L (3.5-5.1)
[2022-03-18] MEDS: FLUTICASONE PROPIONATE NA SPR 16 GM BTL NAE SCH (08:23)
[2022-03-18] MEDS: IPRATROPIUM BROMIDE NASAL SPRAY 0.06% 15ML NAE SCH ×4 (08:23→22:19)
[2022-03-18] MEDS: PANTOprazole 40 MG TAB PO SCH (08:24)
[2022-03-18] MEDS: ATORVASTATIN 20 MG TAB PO SCH (08:24)
[2022-03-18] MEDS: LINACLOTIDE 145 MCG CAPSULE PO SCH (08:24)
[2022-03-18] MEDS: METOPROLOL TARTRATE 25 MG TAB PO SCH (08:24)
[2022-03-18] MEDS: rOPINIRole HCL 1 MG TABLET PO SCH ×3 (08:25→17:04)
[2022-03-18] MEDS: CARBIDOPA/LEVODOPA 25/100MG TAB PO SCH ×4 (08:25→22:19)
[2022-03-18] MEDS: THIAMINE HCL 100 MG TAB PO SCH ×2 (08:25→22:22)
[2022-03-18] MEDS: DOXYCYCLINE HYCLATE 100 MG CAP PO SCH ×2 (08:27→22:19)
--- NOTE | 2022-03-18 11:24 | Ultrasound Report ---
US extremity non-vascular ltd HISTORY: 71 years-old Female Right Upper extremity sweeling/pain acute pain and swelling of the righ t upper extremity COMPARISON: Right shoulder radiographs 03/17/2022 TECHNIQUE: Multiple real-time sonographic images of the right upper extremity soft tissues were obtai kd assessing grayscale appearance FINDINGS/IMPRESSION: Moderate subcutaneous edema. No discrete fluid collection identified. ACT 112: Negative or not required by law. The above report was generated using voice recognition software. It may contain grammatical, syntax o r spelling errors. Electronically signed by: Keshawn Foster M.D. 03/18/2022 11:23 AM
[2022-03-18] MEDS: FUROSEMIDE 40 MG TAB PO SCH (12:34)
--- NOTE | 2022-03-18 14:32 | Electrocardiogram Report ---
Test Reason : Blood Pressure : / mmHG Vent. Rate : 074 BPM Atrial Rate : 074 BPM P-R Int : 178 ms QRS Dur : 110 ms QT Int : 418 ms P-R-T Axes : 054 001 115 degrees QTc Int : 463 ms Normal sinus rhythm with sinus arrhythmia Nonspecific T wave abnormality Abnormal ECG When compared with ECG of 16-MAR-2022 12:20, Nonspecific T wave abnormality is now present Confirmed by Ponce Holt ([id number]) on 03/18/2022 2:31:28 PM Referred By: REFERRED SELF Confirmed By:Ponce Holt
--- NOTE | 2022-03-18 15:17 | Hospitalist Progress Note ---
Date of Service March 18, 2022 Assessment & Plan (1) Recurrent falls: Plan: Patient is 71 y/o F with PMH hypercoagulopathy on chronic Coumadin, superficial vein thrombosis, HTN, HLD, chronic diastolic CHF, paroxysmal SVT, asthma, Edenilson-Danlos syndrome, gastric bypass, gastroparesis, RLS, GERD, depression, gait abnormality was brought to the hospital after she was found on the floor. Patient states didn't fall but reached for fork on floor and lowered herself to floor and was unable to get up. CT head showed no acute intracranial abnormality PT/OT recommended inpatient rehab Fall precautions Waiting for placement to rehab UTI 02/06/2022 hospitalized for Proteus UTI, sepsis. Clostridium perfringens bacteremia ?contaminant and was initially treated with Zosyn, vancomycin and completed Zosyn. Echo did no show mass or vegetation Urine cx positive for Klebsiella and ecoli continue Rocephin IV for now Hypokalemia: K: 2.8 on admission K 3.7 today Continue monitor BMP Depression: Patient tearful because they want to put her dog down Pt denies any suicidal thought Behavioral health liaison consult Chronic Elevated Troponin: High-sensitivity troponin: 95.7. Was 128 and 100 and 02/2022. Echo 02/08/2022: Mild LVH, EF: 60-65%, mild aortic regurgitation Denies any chest pain Continue metoprolol. plavix resumed RUE swelling/tenderness Right shoulder pain XR of the R shoulder showed no acute fracture or dislocation within the right shoulder. Elevation of the humeral head with narrowing of the subacromial space. Moderate osteoarthritis of the right acromioclavicular joint. U/S of RUE showed moderate subcutaneous edema. No discrete fluid collection identified. Edema improved Continue monitor Possible cellultis CT right Lower extremity showed 3.5 to 1.1 cm subcutaneous focus of soft tissue thickening/induration of the medial right thigh. No associated fluid collection. Skin thickening and subcutaneous stranding of the posterior medial right thigh which could reflect edema or cellulitis. CT left LE showed Subcutaneous fluid of the inferior left buttock which involves the gluteal musculature. This could reflect edema or cellulitis/myositis. No fluid collection. Continue abx with doxycycline and rocephin Chronic diastolic heart failure: No sign of volume overload Continue lasix 20mg daily Elevated INR History of hypercoagulopathy anticoagulated on Coumadin: INR: 3.8 on admission, INR 2.3 today Coumadin resumed Continue Monitor INR Parkinson's: Continue carbidopa levodopa HTN: Continue metoprolol succinate HLD: Continue statin Hypothyroidism: Continue levothyroxine Chronic pain: Continue home meds RLS: Continue ropinirole Chronic anemia: Hemoglobin: 9.6 Continue monitor CBC Asthma: No signs acute exacerbation Continue home inhalers History gastric bypass History GERD: Continue PPI History of Edenilson-Danlos syndrome DVT Prophylaxis INR 2.3 on coumadin Full code Admission and Anticipated Discharge Date Admission Date: March 16, 2022 Subjective Pt was seen and examined for follow up of fall and ambulatory dysfunction Sitting in chair with no acute distress Pt is looking much better today. she even smiled today Denies any chest pain, palpitation, dizziness and SOB Review of Systems Review of Systems: All systems reviewed & are unremarkable except as noted in Subjective Physical Exam Physical Exam: General- No acute distress, tearful Head- atraumatic Eyes- PERRL, EOMI, ENT- oropharynx clear Neck- supple, no JVD Lungs- clear to auscultation Heart- regular rhythm; + murmur Abdomen- normal bowel sounds, soft, nontender Extremities- +edema, RUE swelling and tenderness, +large ecchymosis medial aspect leg/medial knee. +multiple scattered ecchymosis in extremities Neuro- alert, oriented x 3; PERRL, EOMI; no facial palsy; no dysarthria Skin- warm & dry Results & Data Results & Data ([facility]) Vital Signs (Past 12 Hours) Vital Signs Temp Pulse Pulse Resp BP Pulse Ox O2 Del Method 03/18/22 11:35 36.5 C 76 18 126/80 96 Room Air 03/18/22 08:00 Room Air 03/18/22 07:26 94 H 03/18/22 07:19 36.9 C 92 H 18 108/71 98 Room Air
[2022-03-18] MEDS: WARFARIN SOD 2.5 MG TAB PO SCH (17:04)
[2022-03-18] MEDS: cefTRIAXone SODIUM 1,000 MG in DEXTROSE 5% 50 ML IV SCH (17:45)
[2022-03-18] MEDS: MONTELUKAST SODIUM 10 MG TABLET PO SCH (22:19)
[2022-03-18] MEDS: FLUTICASONE/VILANTEROL 100/25MCG 14 PUFFS/INHALER INH SCH (22:20)
[2022-03-18] MEDS: rOPINIRole HCL 2 MG TABLET PO SCH (22:21)
[2022-03-18] MEDS: ACETAMINOPHEN 325 MG TAB PO PRN (22:41)
[2022-03-18] MEDS ORDERED: hydrOXYzine HCl 25 MG TAB PO PRN (23:20)
[2022-03-19] MEDS: LEVOTHYROXINE SODIUM 50 MCG TABLET PO SCH (05:53)
[2022-03-19 06:33] LABS: Hematocrit (blood only) 30.7 % (34.1-44.9); Hemoglobin 9.8 g/dl (12.0-16.0); Mean Corpuscular Hemoglobin 30.1 pg (25.0-34.0); Mean Corpuscular Hgb Conc 31.9 g/dL (32.0-36.0); Mean Corpuscular Volume 94.2 fL (80.0-100.0); Mean Platelet Volume 10.3 fL (9.4-12.3); Platelet Count 227 K/uL (130-400); RDW Standard Deviation 59.3 fL (36.4-46.3); Red Blood Count 3.26 M/uL (3.93-5.22); White Blood Count 8.84 K/ul (4.8-10.8)
[2022-03-19 06:48] LABS: Codeine Urine NEGATIVE ng/mL (<50); Hydrocodone Urine NEGATIVE ng/mL (<50); Hydromor Urine NEGATIVE ng/mL (<50); Morphine Urine 733 ng/mL (<50); Norhydrocodone Conf Ur NEGATIVE ng/mL (<50); Noroxycodone Urine NEGATIVE ng/mL (<50); Oxycodone Urine NEGATIVE ng/mL (<50); Oxymorph Urine NEGATIVE ng/mL (<50)
[2022-03-19 07:03] LABS: INR 1.4 (0.9-1.1); Prothrombin Time 14.2 Seconds (9.0-12.0)
[2022-03-19 07:06] LABS: BUN Creatinine Ratio 38.7 (10-20); Calcium 8.6 mg/dl (8.5-10.1); Creatinine Clr Calc Pharmacy 80.7 ml/min; Est GFR (African American) 105.1 ml/min; Est GFR (Non-African American) 90.7 ml/min; Potassium 3.5 mmol/L (3.5-5.1)
[2022-03-19] MEDS: rOPINIRole HCL 1 MG TABLET PO SCH ×3 (08:03→16:19)
[2022-03-19] MEDS: FUROSEMIDE 40 MG TAB PO SCH (08:05)
[2022-03-19] MEDS: FLUTICASONE PROPIONATE NA SPR 16 GM BTL NAE SCH (08:05)
[2022-03-19] MEDS: LINACLOTIDE 145 MCG CAPSULE PO SCH (08:06)
[2022-03-19] MEDS: IPRATROPIUM BROMIDE NASAL SPRAY 0.06% 15ML NAE SCH ×4 (08:06→20:44)
[2022-03-19] MEDS: THIAMINE HCL 100 MG TAB PO SCH ×2 (08:07→20:43)
[2022-03-19] MEDS: PANTOprazole 40 MG TAB PO SCH (08:07)
[2022-03-19] MEDS: ATORVASTATIN 20 MG TAB PO SCH (08:08)
[2022-03-19] MEDS: CARBIDOPA/LEVODOPA 25/100MG TAB PO SCH ×4 (08:08→20:44)
[2022-03-19] MEDS: DOXYCYCLINE HYCLATE 100 MG CAP PO SCH ×2 (08:09→20:43)
[2022-03-19] MEDS: METOPROLOL TARTRATE 25 MG TAB PO SCH (08:54)
[2022-03-19] MEDS: WARFARIN SOD 2.5 MG TAB PO SCH (16:07)
[2022-03-19] MEDS ORDERED: WARFARIN SOD 3 MG TAB PO SCH (16:15)
[2022-03-19] MEDS: cefTRIAXone SODIUM 1,000 MG in DEXTROSE 5% 50 ML IV SCH (17:04)
--- NOTE | 2022-03-19 18:11 | Hospitalist Progress Note ---
Date of Service March 19, 2022 Assessment & Plan (1) Recurrent falls: Plan: Patient is 71 y/o F with PMH hypercoagulopathy on chronic Coumadin, superficial vein thrombosis, HTN, HLD, chronic diastolic CHF, paroxysmal SVT, asthma, Edenilson-Danlos syndrome, gastric bypass, gastroparesis, RLS, GERD, depression, gait abnormality was brought to the hospital after she was found on the floor. Patient states didn't fall but reached for fork on floor and lowered herself to floor and was unable to get up. CT head showed no acute intracranial abnormality PT/OT recommended inpatient rehab Fall precautions Waiting for placement to rehab UTI 02/06/2022 hospitalized for Proteus UTI, sepsis. Clostridium perfringens bacteremia ?contaminant and was initially treated with Zosyn, vancomycin and completed Zosyn. Echo did no show mass or vegetation Urine cx positive for Klebsiella and ecoli Currently in IV Rocephin, will transition to PO abx on discharge Hypokalemia: K: 2.8 on admission K 3.5 today Continue monitor BMP Depression: Patient tearful because they want to put her dog down Pt denies any suicidal thought Behavioral health liaison consult Chronic Elevated Troponin: High-sensitivity troponin: 95.7. Was 128 and 100 and 02/2022. Echo 02/08/2022: Mild LVH, EF: 60-65%, mild aortic regurgitation Denies any chest pain Continue metoprolol. plavix resumed RUE swelling/tenderness Right shoulder pain XR of the R shoulder showed no acute fracture or dislocation within the right shoulder. Elevation of the humeral head with narrowing of the subacromial space. Moderate osteoarthritis of the right acromioclavicular joint. U/S of RUE showed moderate subcutaneous edema. No discrete fluid collection identified. Edema improved significantly Continue monitor Possible cellulitis CT right Lower extremity showed 3.5 to 1.1 cm subcutaneous focus of soft tissue thickening/induration of the medial right thigh. No associated fluid collection. Skin thickening and subcutaneous stranding of the posterior medial right thigh which could reflect edema or cellulitis. CT left LE showed Subcutaneous fluid of the inferior left buttock which involves the gluteal musculature. This could reflect edema or cellulitis/myositis. No fluid collection. Continue abx with doxycycline and rocephin Chronic diastolic heart failure: No sign of volume overload Continue lasix 20mg daily Elevated INR History of hypercoagulopathy anticoagulated on Coumadin: INR: 3.8 on admission, INR 1.4 today Coumadin increased to 3mg Continue Monitor INR Parkinson's: Continue carbidopa levodopa HTN: Continue metoprolol succinate HLD: Continue statin Hypothyroidism: Continue levothyroxine Chronic pain: Continue home meds RLS: Continue ropinirole Chronic anemia: Hemoglobin: 9.6 Continue monitor CBC Asthma: No signs acute exacerbation Continue home inhalers History gastric bypass History GERD: Continue PPI History of Edenilson-Danlos syndrome DVT Prophylaxis INR 1.4 on coumadin Added Heparin subq until INR therapeutic Full code Admission and Anticipated Discharge Date Admission Date: March 16, 2022 Subjective Pt was seen and examined for follow up of fall and ambulatory dysfunction Lying in bed with no acute distress Right UE pain and swelling improve Denies any chest pain, palpitation, dizziness and SOB Review of Systems Review of Systems: All systems reviewed & are unremarkable except as noted in Subjective Physical Exam Physical Exam: General- No acute distress, tearful Head- atraumatic Eyes- PERRL, EOMI, ENT- oropharynx clear Neck- supple, no JVD Lungs- clear to auscultation Heart- regular rhythm; + murmur Abdomen- normal bowel sounds, soft, nontender Extremities- +edema, RUE swelling and tenderness, +large ecchymosis medial aspect leg/medial knee. +multiple scattered ecchymosis in extremities Neuro- alert, oriented x 3; PERRL, EOMI; no facial palsy; no dysarthria Skin- warm & dry Results & Data Results & Data ([facility]) Vital Signs (Past 12 Hours) Vital Signs Temp Pulse Pulse Resp BP Pulse Ox O2 Del Method 03/19/22 14:24 69 03/19/22 11:48 36.7 C 71 18 119/80 94 Room Air 03/19/22 10:11 Room Air 03/19/22 07:00 36.5 C 83 18 113/70 99 Room Air
[2022-03-19] MEDS: MONTELUKAST SODIUM 10 MG TABLET PO SCH (20:43)
[2022-03-19] MEDS: rOPINIRole HCL 2 MG TABLET PO SCH (20:43)
[2022-03-19] MEDS: FLUTICASONE/VILANTEROL 100/25MCG 14 PUFFS/INHALER INH SCH (20:44)
[2022-03-19] MEDS ORDERED: HEPARIN SOD 5,000 UNIT/0.5 ML VIAL SQ SCH (21:00)
[2022-03-20] MEDS: LEVOTHYROXINE SODIUM 50 MCG TABLET PO SCH (05:43)
[2022-03-20 06:35] LABS: INR 1.2 (0.9-1.1); Prothrombin Time 12.4 Seconds (9.0-12.0)
[2022-03-20] MEDS: FLUTICASONE PROPIONATE NA SPR 16 GM BTL NAE SCH (08:21)
[2022-03-20] MEDS: IPRATROPIUM BROMIDE NASAL SPRAY 0.06% 15ML NAE SCH ×3 (08:21→16:20)
[2022-03-20] MEDS: ATORVASTATIN 20 MG TAB PO SCH (08:22)
[2022-03-20] MEDS: rOPINIRole HCL 1 MG TABLET PO SCH ×3 (08:22→16:23)
[2022-03-20] MEDS: THIAMINE HCL 100 MG TAB PO SCH (08:22)
[2022-03-20] MEDS: METOPROLOL TARTRATE 25 MG TAB PO SCH (08:23)
[2022-03-20] MEDS: CARBIDOPA/LEVODOPA 25/100MG TAB PO SCH ×3 (08:24→16:21)
[2022-03-20] MEDS: FUROSEMIDE 40 MG TAB PO SCH (08:24)
[2022-03-20] MEDS: PANTOprazole 40 MG TAB PO SCH (08:24)
[2022-03-20] MEDS: LINACLOTIDE 145 MCG CAPSULE PO SCH (08:24)
[2022-03-20] MEDS: HEPARIN SOD 5,000 UNIT/0.5 ML VIAL SQ SCH ×2 (08:26→13:08)
[2022-03-20] MEDS: DOXYCYCLINE HYCLATE 100 MG CAP PO SCH (11:54)
[2022-03-20] MEDS ORDERED: CEFDINIR 300 MG CAP PO SCH (13:00)
--- NOTE | 2022-03-20 15:54 | Discharge Summary ---
Date of Service March 20, 2022 Admission HPI Per Admitting Provider Chief Complaint: Fall Primary Care Provider: Debbie Otero PA-C Patient is 71 y/o F with PMH hypercoagulopathy on chronic Coumadin, superficial vein thrombosis, HTN, HLD, chronic diastolic CHF, paroxysmal SVT, asthma, Edenilson-Danlos syndrome, gastric bypass, gastroparesis, RLS, GERD, depression, gait abnormality and others listed below presented to ER after fall today. Patient states today dropped a fork on the floor and bent over to pick it up and lowered herself to ground and was unable to get up off floor. Patient denies any CP, SOB, dizziness, LOC. It is reported that home health visit today and patient did not answer door. She was found on floor in kitchen lying on her back by home health worker. There was a pot on the stove top that was senior living off the burner and objects near the hot burner were turning black. When EMS arrived it is reported patient stated did not want to go and picked up a knife and said she should just slit her throat. Patient reports doesn't believe in suicide and " would not go through with it and take the easy way out". Has chronic pain, denies any new pain. Uses walker to ambulate. Has been having increased falls and is unable to get self off floor. She lives at home alone with her dogs. She states yesterday she hit her right knee/leg with her walker and has ecchymosis to area. History recent hospitalization 02/06/22-02/16/22 for fall, rhabdomyolysis, JAEL, Proteus UTI, Clostridium perfringens bacteremia ?contaminant and was initially treated with Zosyn, vancomycin and completed Zosyn. Echo did no show mass or vegetation. She was discharged to [facility] for rehab. Denies fever/chills, diaphoresis, N/V/D/C, ABBOTT, dizziness, syncope, vision changes, neck pain, CP, SOB, orthopnea, palpitations, cough, sore throat, choking, otalgia, rhinorrhea, abdominal pain, paresthesias, weakness, extremity weakness, increased extremity edema, rashes, urinary symptoms. Admission Exam Per Admitting Provider General: no distress, WDWN Head: normocephalic, atraumatic Eyes: conjunctiva non-injected, anicteric ENT: normal inspection external ears, nose, mucous membranes moist Neck: supple, trachea midline Lungs: clear, no respiratory distress, no wheezing/rhonchi/rales CV: RRR, +murmur, 2+ pretibial edema Abd: normal BS, soft, non-tender Ext: no cyanosis, no calf tenderness, RLE +large ecchymosis medial aspect leg/medial knee. +multiple scattered ecchymosis to bilateral upper and lower extremities Neuro: A&O x 3, no focal deficits noted,+tearful at times Skin: warm, dry Principal Diagnosis Recurrent falls: Urinary tract infection Hypokalemia: Depression: Chronic Elevated Troponin: Right Upper extremity swelling/tenderness Right shoulder pain Chronic diastolic heart failure: Elevated INR Parkinson's: Hypertension Dyslipidemia Hypothyroidism: Chronic pain: RLS: Chronic anemia: Asthma: History gastric bypass History GERD: History of Edenilson-Danlos syndrome Discharge Exam General- No acute distress, tearful Head- atraumatic Eyes- PERRL, EOMI, ENT- oropharynx clear Neck- supple, no JVD Lungs- clear to auscultation Heart- regular rhythm; + murmur Abdomen- normal bowel sounds, soft, nontender Extremities- +edema, RUE swelling and tenderness, +large ecchymosis medial aspect leg/medial knee. +multiple scattered ecchymosis in extremities Neuro- alert, oriented x 3; PERRL, EOMI; no facial palsy; no dysarthria Skin- warm & dry Discharge Data Allergies Allergy/AdvReac Type Severity Reaction Status Date / Time ammonia Allergy Severe FACE, Verified 02/06/22 18:48 LIPS, TONGUE EDEMA buspirone Allergy Severe NEURO Verified 02/06/22 18:48 COMPLICATIONS duloxetine Allergy Intermediate RASH Verified 02/06/22 18:48 ITCHING lisinopril Allergy Intermediate cough Verified 02/06/22 18:48 adhesive Allergy Mild skin tears Verified 02/06/22 18:48 NSAIDS (Non-Steroidal Allergy Unknown not Verified 02/06/22 18:48 Anti-Inflamma supposed to use-S/P GASTRIC BYPASS vancomycin Allergy Unknown ON GMG MED Verified 02/06/22 18:48 LIST venlafaxine Allergy Unknown AFFECTS Verified 02/06/22 18:48 LEGS diphenhydramine AdvReac Intermediate RESTLESS Verified 02/06/22 18:48 LEGS gabapentin AdvReac Intermediate MUSCLE Verified 02/06/22 18:48 STIFFNESS POLLEN Allergy Severe FACE, Uncoded 02/06/22 18:48 LIPS, TONGUE EDEMA Dust Allergy Intermediate ROACHES,DUST Uncoded 02/06/22 18:48 MITES-CLOGGED UP SINUSES-CAN'T BREATHE Consultations 03/16/22 16:52 ED Decision to Admit Stat 03/16/22 18:41 Consult Behavioral Health Liaison Routine Ordered Studies 03/16/22 13:18 CT head/brain wo con Stat 03/17/22 01:19 CT femur LT wo con Urgent 03/17/22 01:22 CT femur RT wo con Urgent 03/18/22 17:01 US extremity non-vascular ltd Routine Laboratory Results WBC 8.84 K/ul (4.8-10.8) 03/19/22 06:09 RBC 3.26 M/uL (3.93-5.22) L 03/19/22 06:09 Hgb 9.8 g/dl (12.0-16.0) L 03/19/22 06:09 Hct 30.7 % (34.1-44.9) L 03/19/22 06:09 MCV 94.2 fL (80.0-100.0) 03/19/22 06:09 MCH 30.1 pg (25.0-34.0) 03/19/22 06:09 MCHC 31.9 g/dL (32.0-36.0) L 03/19/22 06:09 RDW Std Deviation 59.3 fL (36.4-46.3) H 03/19/22 06:09 RDW Coeff of Neftaly 17.0 % (11.5-14.5) H 03/19/22 06:09 Plt Count 227 K/uL (130-400) 03/19/22 06:09 MPV 10.3 fL (9.4-12.3) 03/19/22 06:09 Immature Gran % (Auto) 0.9 % 03/17/22 07:40 Neut % (Auto) 90.3 % 03/17/22 07:40 Lymph % (Auto) 3.5 % 03/17/22 07:40 Forrest % (Auto) 5.2 % 03/17/22 07:40 Eos % (Auto) 0.1 % 03/17/22 07:40 Baso % (Auto) 0.0 % 03/17/22 07:40 Neut # (Auto) 9.29 K/uL (1.4-6.5) H 03/17/22 07:40 Lymph # (Auto) 0.36 K/uL (1.2-3.4) L 03/17/22 07:40 Forrest # (Auto) 0.54 K/uL (0.24-0.82) 03/17/22 07:40 Eos # (Auto) 0.01 K/uL (0-0.50) 03/17/22 07:40 Baso # (Auto) 0.00 K/uL (0-0.2) 03/17/22 07:40 Immature Gran # (Auto) 0.09 K/uL (0.00-0.02) H 03/17/22 07:40 PT 12.4 Seconds (9.0-12.0) H 03/20/22 05:33 INR 1.2 (0.9-1.1) H 03/20/22 05:33 APTT 61.4 Seconds (21.0-31.0) H* 03/16/22 14:41 PTT Ratio 2.2 03/16/22 14:41 Sodium 137 mmol/L (136-145) 03/19/22 06:09 Potassium 3.5 mmol/L (3.5-5.1) 03/19/22 06:09 Chloride 104 mmol/L (98-107) 03/19/22 06:09 Carbon Dioxide 26 mmol/L (21-32) 03/19/22 06:09 Anion Gap 7 (3-11) 03/19/22 06:09 BUN 24 mg/dl (6-23) H 03/19/22 06:09 Creatinine 0.62 mg/dl (0.6-1.2) 03/19/22 06:09 Est Cr Clr Drug Dosing 80.7 ml/min 03/19/22 06:09 Est GFR ( Amer) 105.1 ml/min 03/19/22 06:09 Est GFR (Non-Af Amer) 90.7 ml/min 03/19/22 06:09 BUN/Creatinine Ratio 38.7 (10-20) H 03/19/22 06:09 Glucose 92 mg/dl (70-99(Fasting)) 03/19/22 06:09 Calcium 8.6 mg/dl (8.5-10.1) 03/19/22 06:09 Magnesium 2.1 mg/dl (1.7-2.4) 03/16/22 14:31 Total Bilirubin 1.1 mg/dl (0.2-1.0) H 03/16/22 14:31 AST 22 U/L (13-39) 03/16/22 14:31 ALT 13 U/L (7-52) 03/16/22 14:31 Alkaline Phosphatase 66 U/L (34-104) 03/16/22 14:31 Total Creatine Kinase 139 U/L (26-192) 03/16/22 14:31 Troponin I High Sens 95.7 pg/ml (0-14) H* 03/16/22 14:31 Total Protein 5.8 gm/dl (6.0-8.3) L 03/16/22 14:31 Albumin 3.4 gm/dl (3.4-5.0) 03/16/22 14:31 Globulin 2.4 gm/dl (2.5-4.0) L 03/16/22 14:31 Albumin/Globulin Ratio 1.4 (0.9-2) 03/16/22 14:31 TSH 0.188 uIu/ml (0.300-4.500) L 03/16/22 14:31 Free T4 1.15 ng/dl (0.61-1.60) 03/16/22 14:31 Urine Color Yellow 03/16/22 14:23 Urine Appearance Clear (Clear) 03/16/22 14:23 Urine pH 5.5 (4.5-7.5) 03/16/22 14:23 Ur Specific Spiro 1.017 (1.000-1.030) 03/16/22 14:23 Urine Protein Trace (Negative) H 03/16/22 14:23 Urine Glucose (UA) Negative (Negative) 03/16/22 14:23 Urine Ketones Negative (Negative) 03/16/22 14:23 Urine Blood Negative (Negative) 03/16/22 14:23 Urine Nitrite Negative (Negative) 03/16/22 14:23 Urine Bilirubin Negative (Negative) 03/16/22 14:23 Urine Urobilinogen Negative (Negative) 03/16/22 14:23 Ur Leukocyte Esterase Negative (Negative) 03/16/22 14:23 Urine WBC (Auto) 1-5 /hpf (0-5) 03/16/22 14:23 Urine RBC (Auto) 0-4 /hpf (0-4) 03/16/22 14:23 U Hyaline Cast (Auto) 1-5 /lpf (0-5) 03/16/22 14:23 U Epithel Cells (Auto) 20-30 /lpf (0-5) H 03/16/22 14:23 Urine Bacteria (Auto) 4+ (Negative) H 03/16/22 14:23 Urine Opiates Screen Pos (Neg) H 03/16/22 21:52 U Codeine Confrm GC/MS NEGATIVE ng/mL (<50) 03/16/22 21:52 Ur Morphine (GC/MS) 733 ng/mL (<50) H 03/16/22 21:52 Ur Hydrocodone (GC/MS) NEGATIVE ng/mL (<50) 03/16/22 21:52 Ur Norhydrocodone NEGATIVE ng/mL (<50) 03/16/22 21:52 Ur Noroxycodone NEGATIVE ng/mL (<50) 03/16/22 21:52 Urine Oxycodone (GC/MS) NEGATIVE ng/mL (<50) 03/16/22 21:52 U Oxymorphone GC/MS NEGATIVE ng/mL (<50) 03/16/22 21:52 Ur Methadone, Qual Neg (Neg) 03/16/22 21:52 Ur Hydromorphone (GC/MS) NEGATIVE ng/mL (<50) 03/16/22 21:52 Urine Barbiturates Neg (Neg) 03/16/22 21:52 Ur Phencyclidine (PCP) Neg (Neg) 03/16/22 21:52 U Amphetamin/Meth Scrn Neg (Neg) 03/16/22 21:52 MDMA (Ecstasy) Screen Neg (Neg) 03/16/22 21:52 U Benzodiazepines Scrn Neg (Neg) 03/16/22 21:52 Ur Cocaine Metabolite Neg (Neg) 03/16/22 21:52 U Marijuana (THC) Screen Neg (Neg) 03/16/22 21:52 Drug Screen Comment SEE NOTE 03/16/22 21:52 SARS-CoV-2, RNA, NAAT NEGATIVE (NEGATIVE) 03/16/22 14:25 Blood Type O Negative 03/17/22 07:40 Antibody Screen NEGATIVE 03/17/22 07:40 Impressions Chest X-Ray 03/16/22 13:18 XR chest 1V portable CLINICAL HISTORY: weakness TECHNIQUE: Single frontal radiograph of the chest was obtained. Comparison: Comparison is made to chest radiograph 01/10/2022 FINDINGS: No lines and tubes are seen. Cardiomegaly is noted. The lungs are clear. No evidence of pleural effusion or pneumothorax. Degenerative changes are in the bilateral shoulders. IMPRESSION: No acute chest disease. ACT 112: Negative or not required by law. Electronically signed by: Luis Felipe Luna M.D. 03/16/2022 1:[address] 03/16/22 13:18 CT head/brain wo con CLINICAL HISTORY: fall Technique: Contiguous axial CT images of the head were acquired from the base of the skull to the vertex without intravenous contrast administration. Images were viewed in brain, subdural and bone windows. Automated dose lowering techniques and/or adjustment according to patient size were utilized for this exam. Comparison: Comparison is made to CT head 02/06/2022 Findings: The ventricles, basal cisterns, and cerebral sulci are normal. There is no acute intracranial hemorrhage or evidence of acute territorial infarction. Neither mass effect, shift of the midline structures, nor abnormal extra-axial fluid collections are shown. Imaged portions of the paranasal sinuses and mastoid air cells are clear. The orbits appear normal. There are no acute fractures of the calvaria or scalp swelling. Impression: No acute intracranial hemorrhage, no evidence of acute territorial infarction or other acute intracranial disease process. ACT 112: Negative or not required by law. Electronically signed by: Luis Felipe Luna M.D. 03/16/2022 4:[address] 03/17/22 01:22 CT femur RT wo con CLINICAL HISTORY: swelling, fall COMPARISON STUDY: Right femur and right knee radiographs February 06, 2022. Right femur CT January 10, 2022. TECHNIQUE: Axial images of the right femur and thigh were obtained without intravenous contrast. Sagittal and coronal reconstructions were viewed. Automated exposure control was utilized for the study. A dose lowering technique was utilized adhering to the principles of ALARA. FINDINGS: Evaluation of the right knee arthroplasty is suboptimal given motion artifact. However, alignment appears anatomic and there is no periprosthetic fracture. No fluid collection within the right thigh is present. There is no acute fracture within the right femur. Alignment of the right hip is anatomic. There is skin thickening and subcutaneous stranding of the posterior medial right thigh. There is no associated fluid collection. There is also a 3.5 x 1.1 cm subcutaneous focus of soft tissue thickening/induration of the medial right thigh shown on axial image 112 [id number]. There is no associated fluid collection. Subcutaneous edema has improved since CT of January 10, 2022. No significant abnormalities identified within visualized portions of the pelvis. IMPRESSION: 1. No acute fracture within the right femur. 2. Suboptimal evaluation of the right knee arthroplasty given motion artifact. However, hardware intact with no periprosthetic fracture identified. 3. 3.5 to 1.1 cm subcutaneous focus of soft tissue thickening/induration of the medial right thigh. This is nonspecific but may reflect cellulitis or a contusion. No associated fluid collection. 4. Skin thickening and subcutaneous stranding of the posterior medial right thigh which could reflect edema or cellulitis. ACT 112: Negative or not required by law. Electronically signed by: Norris Blackburn M.D. 03/17/2022 6:26 AM Shoulder X-Ray 03/17/22 17:01 XR shoulder RT min 2V routine CLINICAL HISTORY: right shoulder pain COMPARISON: Right shoulder and right humerus radiographs August 09, 2019. FINDINGS: There is elevation of the humeral head with narrowing of the subacromial space. No acute fracture is present. Moderate osteoarthritis of the right acromioclavicular joint is noted. No suspicious osseous lesion is noted. IMPRESSION: 1. No acute fracture or dislocation within the right shoulder. 2. Elevation of the humeral head with narrowing of the subacromial space. 3. Moderate osteoarthritis of the right acromioclavicular joint. ACT 112: Negative or not required by law. Electronically signed by: Norris Blackburn M.D. 03/17/2022 7:40 PM Vascular Ultrasound 03/18/22 17:01 US extremity non-vascular ltd HISTORY: 71 years-old Female Right Upper extremity sweeling/pain acute pain and swelling of the right upper extremity COMPARISON: Right shoulder radiographs 03/17/2022 TECHNIQUE: Multiple real-time sonographic images of the right upper extremity soft tissues were obtained assessing grayscale appearance FINDINGS/IMPRESSION: Moderate subcutaneous edema. No discrete fluid collection identified. ACT 112: Negative or not required by law. The above report was generated using voice recognition software. It may contain grammatical, syntax or spelling errors. Electronically signed by: Keshawn Foster M.D. 03/18/2022 11:23 AM Hospital Course (1) Recurrent falls: Patient is 71 y/o F with PMH hypercoagulopathy on chronic Coumadin, superficial vein thrombosis, HTN, HLD, chronic diastolic CHF, paroxysmal SVT, asthma, Edenilson-Danlos syndrome, gastric bypass, gastroparesis, RLS, GERD, depression, gait abnormality was brought to the hospital after she was found on the floor. Patient states didn't fall but reached for fork on floor and lowered herself to floor and was unable to get up. CT head showed no acute intracranial abnormality PT/OT recommended inpatient rehab Fall precautions Waiting for placement to rehab UTI 02/06/2022 hospitalized for Proteus UTI, sepsis. Clostridium perfringens bacteremia ?contaminant and was initially treated with Zosyn, vancomycin and completed Zosyn. Echo did no show mass or vegetation Urine cx positive for Klebsiella and ecoli Currently in IV Rocephin, will transition to PO Cefdinir on discharge Hypokalemia: K: 2.8 on admission K 3.5 Continue monitor BMP Depression: Patient tearful because they want to put her dog down Pt denies any suicidal thought Behavioral health liaison consult Chronic Elevated Troponin: High-sensitivity troponin: 95.7. Was 128 and 100 and 02/2022. Echo 02/08/2022: Mild LVH, EF: 60-65%, mild aortic regurgitation Denies any chest pain Continue metoprolol. plavix resumed RUE swelling/tenderness Right shoulder pain XR of the R shoulder showed no acute fracture or dislocation within the right shoulder. Elevation of the humeral head with narrowing of the subacromial space. Moderate osteoarthritis of the right acromioclavicular joint. U/S of RUE showed moderate subcutaneous edema. No discrete fluid collection identified. Edema improved significantly Continue monitor Possible cellulitis CT right Lower extremity showed 3.5 to 1.1 cm subcutaneous focus of soft tissue thickening/induration of the medial right thigh. No associated fluid collection. Skin thickening and subcutaneous stranding of the posterior medial right thigh which could reflect edema or cellulitis. CT left LE showed Subcutaneous fluid of the inferior left buttock which involves the gluteal musculature. This could reflect edema or cellulitis/myositis. No fluid collection. Continue abx with doxycycline and rocephin Chronic diastolic heart failure: No sign of volume overload Continue lasix 20mg daily Elevated INR History of hypercoagulopathy anticoagulated on Coumadin: INR: 3.8 on admission, INR 1.4 today Continue Coumadin 3mg Continue Monitor INR Parkinson's: Continue carbidopa levodopa HTN: Continue metoprolol succinate HLD: Continue statin Hypothyroidism: Continue levothyroxine Chronic pain: Continue home meds RLS: Continue ropinirole Chronic anemia: Hemoglobin: 9.6 Continue monitor CBC Asthma: No signs acute exacerbation Continue home inhalers History gastric bypass History GERD: Continue PPI History of Edenilson-Danlos syndrome DVT Prophylaxis INR 1.4 on coumadin Added Heparin subq until INR therapeutic Full code Total Time Total Time Spent Total Time Spent (In Minutes): 35 minutes Discharge Plan Discharge Items Patient Disposition: Transfer Inpatient Rehab Fac Reason For Visit: FALL Discharge Diagnosis: Recurrent falls: Urinary tract infection Hypokalemia: Depression: Chronic Elevated Troponin: Right Upper extremity swelling/tenderness Right shoulder pain Chronic diastolic heart failure: Elevated INR Parkinson's: Hypertension Dyslipidemia Hypothyroidism: Chronic pain: RLS: Chronic anemia: Asthma: History gastric bypass History GERD: History of Edenilson-Danlos syndrome Condition on Discharge: Fair Activity: Resume your previous activity Non-emergency contact: Primary Care Provider Call non-emergency contact if: your temperature is above 101 Follow-up/Referrals: Debbie Otero PA-C [Primary Care Provider] - Diet: Heart Healthy Addtl Attending Provider Instructions: Follow up with your primary care provider once discharge from rehab Continue physical and occupation therapy Follow up with the coumadin clinic to monitor your PT/INR (Check INR in 2 to 3 days) Complete the course of the antibiotic with Cefdinir to complete the course Continue subq Lovenox 40mg daily for DVT prophylaxis for the next couple days until INR 2 Check BMP in 1 -2 week to monitor electrolytes Check CBC in 1-2 week to monitor hemoglobin Fall precaution Seek medical attention if your symptoms reoccur Pending Studies at Discharge: No Stand-Alone Forms: My [facility] Skilled Items Patient informed of condition?: Yes DNR: No Discharge Level of Care: Acute rehab Communicable Disease: No Discharge Prognosis: Stable Lines: None Urinary Catheter: No Medications and DC Order Prescriptions: New warfarin [Jantoven] 4 mg Tablet 4 mg PO DAILY@1600 Qty: 30 0RF Continued furosemide 40 mg tablet 40 - 80 mg PO DAILY atorvastatin 20 mg tablet 20 mg PO QAM ipratropium-albuterol 0.5 mg-3 mg(2.5 mg base)/3 mL solution for nebulization 3 ml INHALATION QID ondansetron HCl 4 mg Tablet 4 mg PO Q12 PRN (Reason: Nausea) sennosides-docusate sodium [Senna-S] 8.6-50 mg Tablet 1 tab-cap PO BID cromolyn 4 % drops 1 drp OPL QID PRN (Reason: Itching) thiamine HCl (vitamin B1) 100 mg Tablet 100 mg PO BID docusate sodium 50 mg Capsule 50 mg PO BID PRN (Reason: Constipation) triamcinolone acetonide 0.1 % cream 1 applic TOPICAL BID PRN (Reason: FLARE UP) potassium chloride [Klor-Con] 20 mEq packet 20 meq PO [facility] Rx Instructions: WHILE ON LASIX clindamycin phosphate 1 % gel 1 applic TOPICAL BID PRN (Reason: FLARE UPS) meclizine 25 mg Tablet 25 mg PO TID PRN (Reason: DIZZY) levothyroxine 50 mcg tablet 50 mcg PO DAILY ropinirole 2 mg tablet See Rx Instructions .ROUTE .COMPLEX Rx Instructions: 1 TAB IN AM, 1 TAB LUNCH, 1 TAB MID EVENING , 2 TABS @ HS WITH FOOD. omeprazole 20 mg capsule,delayed release(DR/EC) 40 mg PO DAILY montelukast 10 mg tablet 10 mg PO HS hydroxyzine HCl 25 mg Tablet 25 mg PO Q6 PRN (Reason: .ANX/ITCH) ergocalciferol (vitamin D2) [Vitamin D2] 1,250 mcg (50,000 unit) Capsule 1,250 mcg PO WK fluticasone propion-salmeterol [Advair Diskus] 100-50 mcg/dose Blister With Device 1 inh INHALATION BID albuterol sulfate 90 mcg/actuation Hfa Aerosol Inhaler 2 inh INHALATION Q6 PRN (Reason: Shortness Of Breath Or Wheezing) carbidopa-levodopa 25-100 mg Tablet 1 tab PO QID fluticasone propionate [Flonase Allergy Relief] 50 mcg/actuation [place],Suspension 2 spray INTRANASAL DAILY ipratropium bromide 21 mcg (0.03 %) [place],Non-Aerosol 1 spray INTRANASAL QID cyanocobalamin (vitamin B-12) 1,000 mcg/mL Syringe 1,000 mcg MO Rx Instructions: INJECTION metaxalone 800 mg tablet 800 mg PO QID Rx Instructions: TAKE 1 TAB IN AM,NOON,PM, HS omega-3 fatty acids Capsule 1,000 mg PO DAILY metoprolol tartrate 25 mg tablet 12.5 mg PO DAILY biotin 1 mg Tablet 1 mg PO DAILY Linzess 290 mcg capsule 290 mcg PO DAILY buprenorphine 15 mcg/hour patch weekly 1 patch topical WK PreserVision AREDS-2 250-90-40-1 mg Capsule 1 tab PO BID Probiotic Acidophilus Biobeads 12.9 mg (2 billion cell) Tablet,Delayed Release (Dr/Ec) 2 tab PO DAILY lidocaine HCl 2.8 % Gel 1 applic TOPICAL BID PRN (Reason: APPLY TO AFFECTED AREAA) Discontinued warfarin 2.5 mg tablet 0 mg PO DIRECTED Rx Instructions: 1.875mg mon, wed, fri. 1.25 sun, tues, thur, sat Discharge Orders: Discharge Order (Routine); Ordered 03/20/22 Ordered By: Ronny Willett Admission Data Admit Date/Time: 03/16/22 17:24 Attending Provider: Ronny Willett Admit Provider: Venessa Walton Primary Care Provider: Debbie Otero Other Providers: Venessa Walton ; [facility] Other Interventions: Discharge Summary Assessment (RN) Last Done: 03/20/22 15:25
[2022-03-20] MEDS ORDERED: CHECK BUPRENORPHINE PATCH SCH (16:00)
[2022-03-20] MEDS ORDERED: WARFARIN SOD 4 MG TAB PO SCH (16:00)
== END 2022-03-20 16:40 | DRG 603 ==
LOC: ED 11:55 → SUATTDRO 17:24 → 2N 17:24
DX: R79.89 Other specified abnormal findings of blood chemistry; M19.011 Primary osteoarthritis, right shoulder; G25.81 Restless legs syndrome; K31.84 Gastroparesis; R29.6 Repeated falls; I11.0 Hypertensive heart disease with heart failure; Z86.711 Personal history of pulmonary embolism; E86.0 Dehydration; Z88.8 Allergy status to other drugs, medicaments and biological substances; I50.32 Chronic diastolic (congestive) heart failure; G20 Parkinson's disease; Z98.84 Bariatric surgery status; Y92.009 Unspecified place in unspecified non-institutional (private) residence as the place of occurrence of the external cause; E03.9 Hypothyroidism, unspecified; Z88.6 Allergy status to analgesic agent; B96.1 Klebsiella pneumoniae [K. pneumoniae] as the cause of diseases classified elsewhere; F90.9 Attention-deficit hyperactivity disorder, unspecified type; B96.20 Unspecified Escherichia coli [E. coli] as the cause of diseases classified elsewhere; Q79.60 Ehlers-Danlos syndrome, unspecified; N39.0 Urinary tract infection, site not specified; Z88.1 Allergy status to other antibiotic agents; D68.59 Other primary thrombophilia; E87.6 Hypokalemia; F32.A Depression, unspecified; W19.XXXA Unspecified fall, initial encounter; L03.115 Cellulitis of right lower limb; Z79.01 Long term (current) use of anticoagulants; Z96.653 Presence of artificial knee joint, bilateral

== ENCOUNTER 2022-04-02 15:46 | Inpatient (IN) ==
[2022-04-02] MEDS ORDERED: SODIUM CHLORIDE 0.9% 1000ML 1,000 ML IV ONE ×2 (16:03→18:00)
--- NOTE | 2022-04-02 16:07 | Emergency Department Note ---
Impression & Plan JAEL (acute kidney injury), Rhabdomyolysis, Adult failure to thrive ED Provider Note Name: GRETTA PRAJAPATI Age: 72 Sex: F Arrives Via: Ambulance Informant: Patient, EMS, case management ED Provider: Matthew Esteves MD Chief Complaint: Wellness evaluation Impression: As per impressions above Medical Decision Makin-year-old female with extensive past medical history including pulmonary embolism, general anxiety, hypothyroidism, GERD as well as sepsis, previous rhabdo, previous JAEL arrives for evaluation after Adult Protective Services found her sitting in her chair covered in feces and not caring for self.. She has been out of her rehab facility for just a few days and has just been sitting in his chair without taking care of her self. Patient is awake alert oriented and per case management she is still able to make her own decisions which seems reasonable by examination. She understands that not caring for self is leading to this outcome. At this point she has JAEL, early rhabdo and is severely dehydrated appearing. No UA at this time though urinalysis pending at time of hospitalist consult. She was given further IV fluids while awaiting UA and hospitalist evaluation. Prior Medical Record and Triage/Nursing Notes reviewed by Me Additional history obtained from chart Differentials:Infection, dehydration, metabolic abnormality, hypo/hyperglycemia, electrolyte disturbance, anemia, hypoxia, cardiac sources, intracerebral event, toxicologic, neurologic, as well as other pathologies. Vital Signs: reviewed and remarkable for no significant abnormalities Interventions: Normal saline bolus Labs:Reviewed and remarkable for elevated creatinine, elevated CK Consult Dr. Willett Plan: Disposition:Hospitalization. Condition: Good History of Present Illness:72-year-old female arrives from home due to inability to care for self. Apparently was evaluated by area of aging today who on evaluation they noted she had not moved from her chair since she had been there for several days was covered in stool and had not cared for self. Patient notes some mild right shoulder pain which occurred after reported injury during a blood pressure cuff placement 3 weeks ago while in the hospital. She denies any headache, neck pain, chest pain, shortness of breath abdominal pain, back pain or other concerning signs or symptoms. She denies any recent falls, trauma, injuries. She denies taking any medications prior to arrival. She notes her shoulder is worse with movement. She is not sure if she is taken any of her pain medications recently. Nothing makes it better or worse. ROS: See above HPI for pertinent positives & negatives. A total of 10 systems reviewed and were otherwise negative. Past Medical History:See Below Past Surgical History:See Below Family History:See Below Social History:See Below Home Medications:See Below Allergies:See Below Vitals:Blood Pressure: 122/69, Pulse 98, RR 22, T 36.7C, O2 96% on RA Physical Exam: GENERAL: Patient is unwell appearing and in minimal distress. Dehydrated appearing with food/spittle on face and stool on legs. EYES: No scleral icterus, unremarkable pupils. ENT: Mucous membranes dry, no nasal congestion. NECK: No masses appreciated, nomeningismus, trachea is midline. RESPIRATORY: No dyspnea. Clear to auscultation and equal bilaterally. No wheeze, no rhonchi. CARDIOVASCULAR: Regular rate and rhythm.No murmurs, rubs, gallops appreciated. GASTROINTESTINAL: Abdomen soft, non-tender, no peritonitis.Bowel sounds positive.No masses appreciated. BACK: No midline tenderness, no CVA tenderness EXTREMITIES: TTP right anterior shoulder. Normal motion all extremities, no cyanosis, bilateral leg edema. NEUROLOGIC: Alert and oriented, no acute motor or sensory deficits, no focal weakness, cranial nerves grossly intact. SKIN: No rash, no jaundice, no diaphoresis. PSYCH: Appropriate, a bit distant GCS: 15 ED Course: Times/Reassessments: Patient seems sad on multiple evaluations she is agreeable to hospitalization and she expresses that she is concerned for her pet's wellbeing. Matthew Esteves MD Past Med/Surg History Medical History ADHD Asthma uses PRN INH 3-4 x wk Bulging of intervertebral disc Claustrophobia Difficult intravenous access Dysphagia Edenilson-Danlos syndrome ISAC (generalized anxiety disorder) Gastroparesis GERD (gastroesophageal reflux disease) Hearing deficit History of colon polyps History of colon polyps History of DVT (deep vein thrombosis) chronic anticoagulation History of intestinal obstruction Hyperlipidemia Hypothyroidism Osteoarthritis Osteoporosis Peripheral neuropathy Protein C deficiency Pulmonary embolism 07/2018 - treated w/ lovenox - unk etiology Renal cyst Restless leg syndrome Sleep apnea unable to tolerate CPAP Tachycardia Thoracic aortic aneurysm follows w/ Dr. Arredondo - evaluated within last 6 mo Thyroid nodule Surgical History History of abdominoplasty + hernia repair History of arthroscopy of left knee History of bilateral breast reduction surgery History of cholecystectomy History of colonoscopy History of esophagogastroduodenoscopy (EGD) History of gastric bypass History of intestinal surgery History of laparotomy History of left knee replacement History of right knee joint replacement History of tonsillectomy Hx of melanoma excision shoulder S/P hysterectomy Self extubation attempted post gastric bypass Status post biopsy of thyroid gland benign Family History Uncle Stomach cancer Other No family history of adverse response to anesthesia No pertinent family history in first degree relatives Social History Second Hand Exposure: No; Hx Alcohol Use: No Hx Substance Use: No Preferred Language: Taiwanese Visual Impairment: Limited Hearing Ability: Normal 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 Assistant Required: No Beliefs That Will Affect Care: None marital status: Single Current Living Situation: Alone Current Living Situation Comment: has friends to help when needed How many Children do You have: 0 Feels Safe at Home: No Is there a partner from a previous relationship who is making you feel unsafe now?: No Any Concerns about Your Family Situation: Yes Would You Like to Speak to Someone About Your Situation: Yes Safety Concerns: Afraid for Self Assistive Devices: Bedside Commode, Glasses and Walker Allergies Allergies Allergy/AdvReac Type Severity Reaction Status Date / Time ammonia Allergy Severe FACE, Verified 02/06/22 18:48 LIPS, TONGUE EDEMA buspirone Allergy Severe NEURO Verified 02/06/22 18:48 COMPLICATIONS duloxetine Allergy Intermediate RASH Verified 02/06/22 18:48 ITCHING lisinopril Allergy Intermediate cough Verified 02/06/22 18:48 adhesive Allergy Mild skin tears Verified 02/06/22 18:48 NSAIDS (Non-Steroidal Allergy Unknown not Verified 02/06/22 18:48 Anti-Inflamma supposed to use-S/P GASTRIC BYPASS vancomycin Allergy Unknown ON [facility] MED Verified 02/06/22 18:48 LIST venlafaxine Allergy Unknown AFFECTS Verified 02/06/22 18:48 LEGS diphenhydramine AdvReac Intermediate RESTLESS Verified 02/06/22 18:48 LEGS gabapentin AdvReac Intermediate MUSCLE Verified 08/02/22 18:48 STIFFNESS POLLEN Allergy Severe FACE, Uncoded 02/06/22 18:48 LIPS, TONGUE EDEMA Dust Allergy Intermediate ROACHES,DUST Uncoded 02/06/22 18:48 MITES-CLOGGED UP SINUSES-CAN'T BREATHE Home Meds Home Medications Medication Instructions Recorded Confirmed L.acidoph-L.rhamn-B.bifidum-B.long 2 tab PO DAILY 01/09/22 04/02/22 12.9 mg (2 billion cell) tablet, DR (Probiotic Acidophilus Jimmie) albuterol sulfate 90 mcg/actuation 2 inh inhalation Q6 PRN Shortness 01/09/22 04/02/22 aerosol inhaler Of Breath Or Wheezing atorvastatin 20 mg tablet 20 mg PO QAM 01/09/22 04/02/22 biotin 1 mg tablet 1 mg PO DAILY 01/09/22 04/02/22 buprenorphine 15 mcg/hour weekly 1 patch topical WK 01/09/22 04/02/22 transdermal patch carbidopa 25 mg-levodopa 100 mg 1 tab PO QID 01/09/22 04/02/22 tablet clindamycin phosphate 1 % topical 1 applic topical BID PRN FLARE UPS 01/09/22 04/02/22 gel cromolyn 4 % eye drops 1 drp OPL QID PRN Itching 01/09/22 04/02/22 cyanocobalamin (vitamin B-12) 1,000 mcg MO 01/09/22 04/02/22 1,000 mcg/mL injection syringe docusate sodium 50 mg capsule 50 mg PO BID PRN Constipation 01/09/22 04/02/22 ergocalciferol (vitamin D2) 1,250 1,250 mcg PO WK 01/09/22 04/02/22 mcg (50,000 unit) capsule (Vitamin D2) fluticasone 100 mcg-salmeterol 50 1 inh inhalation BID 01/09/22 04/02/22 mcg/dose blistr powdr for inhalation (Advair Diskus) fluticasone propionate 50 2 spray intranasal DAILY 01/09/22 04/02/22 mcg/actuation nasal spray,suspension (Flonase Allergy Relief) furosemide 40 mg tablet 40 - 80 mg PO DAILY INCREASED 01/09/22 04/02/22 SWELLING IN LEGS hydroxyzine HCl 25 mg tablet 25 mg PO Q6 PRN .ANX/ITCH 01/09/22 04/02/22 ipratropium 0.5 mg-albuterol 3 mg 3 ml inhalation QID 01/09/22 04/02/22 (2.5 mg base)/3 mL nebulization soln ipratropium bromide 21 mcg (0.03 1 spray intranasal QID 01/09/22 04/02/22 %) nasal spray levothyroxine 50 mcg tablet 50 mcg PO DAILY 01/09/22 04/02/22 lidocaine HCl 2.8 % topical gel 1 applic topical BID PRN APPLY TO 01/09/22 04/02/22 AFFECTED AREAA linaclotide 290 mcg capsule 290 mcg PO DAILY 01/09/22 04/02/22 (Linzess) meclizine 25 mg tablet 25 mg PO TID PRN DIZZY 01/09/22 04/02/22 metaxalone 800 mg tablet 800 mg PO QID 01/09/22 04/02/22 metoprolol tartrate 25 mg tablet 12.5 mg PO DAILY 01/09/22 04/02/22 montelukast 10 mg tablet 10 mg PO HS 01/09/22 04/02/22 omega-3 fatty acids 1,000 mg PO DAILY 01/09/22 04/02/22 omeprazole 20 mg capsule,delayed 40 mg PO DAILY 01/09/22 04/02/22 release ondansetron HCl 4 mg tablet 4 mg PO Q12 PRN Nausea 01/09/22 04/02/22 potassium chloride 20 mEq oral 20 meq PO AMHS 01/09/22 04/02/22 packet (Klor-Con) ropinirole 2 mg tablet See Rx Instructions .Route .COMPLEX 01/09/22 04/02/22 sennosides 8.6 mg-docusate sodium 1 tab-cap PO BID 01/09/22 04/02/22 50 mg tablet (Senna-S) thiamine HCl (vitamin B1) 100 mg 100 mg PO BID 01/09/22 04/02/22 tablet triamcinolone acetonide 0.1 % 1 applic topical BID PRN FLARE UP 01/09/22 04/02/22 topical cream vit C 250 mg-vit E 90 mg-zinc 40 1 tab PO BID 01/09/22 04/02/22 mg-copper 1 [id number] capsule (PreserVision AREDS-2) Previous Rx's Medication Instructions Recorded warfarin 4 mg tablet (Jantoven) 4 mg PO DAILY@1600 #30 tabs 03/20/22 Results & Data (ED) Vital Signs Vital Signs - 24 hr 04/02/22 15:58 04/02/22 15:40 04/02/22 15:40 Temperature 36.7 C Temperature Source Oral Pulse Rate 98 H Pulse Rate from SpO2 Sensor Pulse Rhythm Regular Pulse Strength Normal Respiratory Rate 22 16 Respiratory Effort / Characteristics Non-Labored Non-Labored Spontaneous Respiratory Depth Normal Normal Respiratory Pattern Regular Regular Blood Pressure 122/69 Blood Pressure Mean 86 Blood Pressure Position Lying Pulse Oximetry 96 98 Oxygen Delivery Method Room Air Room Air Sepsis Recent Fever Within 48 Hours No Sepsis New/Unexplained Change in Mental Status N/A Sepsis Action Taken by Nursing No Action Required 04/02/22 15:56 04/02/22 16:00 04/02/22 16:00 Temperature Temperature Source Pulse Rate Pulse Rate from SpO2 Sensor 85 86 Pulse Rhythm Pulse Strength Respiratory Rate Respiratory Effort / Characteristics Respiratory Depth Respiratory Pattern Blood Pressure 122/69 Blood Pressure Mean 86 Blood Pressure Position Pulse Oximetry 97 96 Oxygen Delivery Method Sepsis Recent Fever Within 48 Hours Sepsis New/Unexplained Change in Mental Status Sepsis Action Taken by Nursing 04/02/22 16:30 04/02/22 16:30 04/02/22 17:00 Temperature Temperature Source Pulse Rate 85 85 Pulse Rate from SpO2 Sensor 85 Pulse Rhythm Pulse Strength Respiratory Rate 18 17 Respiratory Effort / Characteristics Respiratory Depth Respiratory Pattern Blood Pressure 108/77 Blood Pressure Mean 87 Blood Pressure Position Pulse Oximetry 95 Oxygen Delivery Method Sepsis Recent Fever Within 48 Hours Sepsis New/Unexplained Change in Mental Status Sepsis Action Taken by Nursing 04/02/22 17:30 04/02/22 18:00 04/02/22 18:18 Temperature Temperature Source Pulse Rate 80 80 87 Pulse Rate from SpO2 Sensor 80 79 Pulse Rhythm Pulse Strength Respiratory Rate 17 19 25 H Respiratory Effort / Characteristics Respiratory Depth Respiratory Pattern Blood Pressure Blood Pressure Mean Blood Pressure Position Pulse Oximetry 93 100 Oxygen Delivery Method Sepsis Recent Fever Within 48 Hours Sepsis New/Unexplained Change in Mental Status Sepsis Action Taken by Nursing 04/02/22 18:18 04/02/22 18:30 04/02/22 18:30 Temperature Temperature Source Pulse Rate 79 Pulse Rate from SpO2 Sensor 80 Pulse Rhythm Pulse Strength Respiratory Rate 20 Respiratory Effort / Characteristics Respiratory Depth Respiratory Pattern Blood Pressure 158/92 H 125/84 Blood Pressure Mean 114 97 Blood Pressure Position Pulse Oximetry 95 Oxygen Delivery Method Sepsis Recent Fever Within 48 Hours Sepsis New/Unexplained Change in Mental Status Sepsis Action Taken by Nursing 04/02/22 19:00 04/02/22 19:00 Temperature Temperature Source Pulse Rate 85 Pulse Rate from SpO2 Sensor 83 Pulse Rhythm Pulse Strength Respiratory Rate 19 Respiratory Effort / Characteristics Respiratory Depth Respiratory Pattern Blood Pressure 141/96 H Blood Pressure Mean 111 Blood Pressure Position Pulse Oximetry 98 Oxygen Delivery Method Sepsis Recent Fever Within 48 Hours Sepsis New/Unexplained Change in Mental Status Sepsis Action Taken by Nursing Laboratory Data Result diagrams: 04/02/22 17:00 04/02/22 17:00 Lab Results 04/02/22 04/02/22 04/02/22 Range/Units 17:00 17:00 17:00 WBC 11.54 H (4.8-10.8) K/ul RBC 3.32 L (3.93-5.22) M/uL Hgb 10.0 L (12.0-16.0) g/dl Hct 30.7 L (34.1-44.9) % MCV 92.5 (80.0-100.0) fL MCH 30.1 (25.0-34.0) pg MCHC 32.6 (32.0-36.0) g/dL RDW Std Deviation 55.7 H (36.4-46.3) fL RDW Coeff of Neftaly 16.4 H (11.5-14.5) % Plt Count 291 (130-400) K/uL MPV 10.4 (9.4-12.3) fL Immature Gran % (Auto) 0.3 % Neut % (Auto) 90.3 % Lymph % (Auto) 2.8 % Mcduffie % (Auto) 6.5 % Eos % (Auto) 0.0 % Baso % (Auto) 0.1 % Neut # (Auto) 10.42 H (1.4-6.5) K/uL Lymph # (Auto) 0.32 L (1.2-3.4) K/uL Mcduffie # (Auto) 0.75 (0.24-0.82) K/uL Eos # (Auto) 0.00 (0-0.50) K/uL Baso # (Auto) 0.01 (0-0.2) K/uL Immature Gran # (Auto) 0.04 H (0.00-0.02) K/uL Ovalocytes 1+ Echinocytes 1+ PT 33.5 H (9.0-12.0) Seconds INR 3.4 H (0.9-1.1) APTT 46.8 H* (21.0-31.0) Seconds PTT Ratio 1.7 Sodium 135 L (136-145) mmol/L Potassium 3.4 L (3.5-5.1) mmol/L Chloride 103 (98-107) mmol/L Carbon Dioxide 23 (21-32) mmol/L Anion Gap 9 (3-11) BUN 44 H (6-23) mg/dl Creatinine 1.83 H (0.6-1.2) mg/dl Est Cr Clr Drug Dosing 23.8 ml/min Est GFR ( Amer) 31.4 ml/min Est GFR (Non-Af Amer) 27.1 ml/min BUN/Creatinine Ratio 24.0 H (10-20) Glucose 109 H (70-99(Fasting)) mg/dl Calcium 9.4 (8.5-10.1) mg/dl Magnesium 2.6 H (1.7-2.4) mg/dl Total Creatine Kinase 224 H (26-192) U/L Troponin I High Sens 81.3 H* D (0-14) pg/ml SARS-CoV-2, RNA, NAAT (NEGATIVE) 04/02/22 Range/Units 17:30 WBC (4.8-10.8) K/ul RBC (3.93-5.22) M/uL Hgb (12.0-16.0) g/dl Hct (34.1-44.9) % MCV (80.0-100.0) fL MCH (25.0-34.0) pg MCHC (32.0-36.0) g/dL RDW Std Deviation (36.4-46.3) fL RDW Coeff of Neftaly (11.5-14.5) % Plt Count (130-400) K/uL MPV (9.4-12.3) fL Immature Gran % (Auto) % Neut % (Auto) % Lymph % (Auto) % Mcduffie % (Auto) % Eos % (Auto) % Baso % (Auto) % Neut # (Auto) (1.4-6.5) K/uL Lymph # (Auto) (1.2-3.4) K/uL Mcduffie # (Auto) (0.24-0.82) K/uL Eos # (Auto) (0-0.50) K/uL Baso # (Auto) (0-0.2) K/uL Immature Gran # (Auto) (0.00-0.02) K/uL Ovalocytes Echinocytes PT (9.0-12.0) Seconds INR (0.9-1.1) APTT (21.0-31.0) Seconds PTT Ratio Sodium (136-145) mmol/L Potassium (3.5-5.1) mmol/L Chloride (98-107) mmol/L Carbon Dioxide (21-32) mmol/L Anion Gap (3-11) BUN (6-23) mg/dl Creatinine (0.6-1.2) mg/dl Est Cr Clr Drug Dosing ml/min Est GFR ( Amer) ml/min Est GFR (Non-Af Amer) ml/min BUN/Creatinine Ratio (10-20) Glucose (70-99(Fasting)) mg/dl Calcium (8.5-10.1) mg/dl Magnesium (1.7-2.4) mg/dl Total Creatine Kinase (26-192) U/L Troponin I High Sens (0-14) pg/ml SARS-CoV-2, RNA, NAAT NEGATIVE (NEGATIVE) Administered Medications Carbidopa/Levodopa (Carbidopa/Levodopa 25/100mg Tab) 1 tab PO QID [facility] Stop: 05/02/22 21:32 Last Admin: 04/02/22 22:47 Dose: 1 tab Documented By: MALINDA Sodium Chloride (Nss 1000ml) 1,000 mls @ 80 mls/hr IV .[id number] ASHUTOSH Stop: 05/02/22 21:32 Last Admin: 04/02/22 21:57 Dose: 80 mls/hr Documented By: MALINDA Ipratropium [place] (Ipratropium [place] Nasal [place] 0.06% 15ml) 1 sprays ELYSE QID ASHUTOSH Stop: 05/02/22 21:32 Last Admin: 04/02/22 22:49 Dose: 1 sprays Documented By: MALINDA Montelukast Sodium (Montelukast Sodium 10 Mg Tablet) 10 mg PO HS ASHUTOSH Stop: 05/02/22 21:32 Last Admin: 04/02/22 22:49 Dose: 10 mg Documented By: MALINDA Potassium Chloride (Potassium Chloride Pwd 20 Meq Pack) 20 meq PO BID ASHUTOSH Stop: 05/02/22 21:32 Last Admin: 04/02/22 22:49 Dose: 20 meq Documented By: MALINDA Ropinirole HCl (Ropinirole Hcl 1 Mg Tablet) 2 mg PO HS ASHUTOSH Stop: 05/02/22 21:32 Last Admin: 04/02/22 22:48 Dose: 2 mg Documented By: MALINDA Thiamine HCl (Thiamine Hcl 100 Mg Tab) 100 mg PO BID ASHUTOSH Stop: 05/02/22 21:32 Last Admin: 04/02/22 22:48 Dose: 100 mg Documented By: MALINDA Discontinued Medications Hydromorphone HCl (Hydromorphone Inj 0.5 Mg/0.5 Ml Syr) 0.5 mg IV NOW STA Stop: 04/02/22 16:27 Last Admin: 04/02/22 17:13 Dose: 0.5 mg Documented By: KING Sodium Chloride (Nss 1000ml) 1,000 mls @ 999 mls/hr IV .Q1H1M ONE Stop: 04/02/22 17:03 Last Infusion: 04/02/22 18:21 Dose: 0 mls/hr Documented By: Admin: 04/02/22 17:13 Dose: 999 mls/hr Documented By: KING Sodium Chloride (Nss 1000ml) 1,000 mls @ 999 mls/hr IV .Q1H1M ONE Stop: 04/02/22 19:00 Last Infusion: 04/02/22 18:20 Dose: 999 mls/hr Documented By: Admin: 04/02/22 18:16 Dose: 999 mls/hr Documented By: KING Warfarin Sodium (Warfarin Sod 2.5 Mg Tab) 2.5 mg PO ONE ONE Stop: 04/02/22 21:34 Last Admin: 04/02/22 22:49 Dose: 2.5 mg Documented By: MALINDA Imaging Data Radiologist's Impression: Chest X-Ray 04/02/22 16:03 XR chest 1V portable CLINICAL HISTORY: weakness TECHNIQUE: Single frontal radiograph of the chest was obtained. Comparison: Comparison is made to chest radiograph 03/16/2022 FINDINGS: No lines and tubes are seen. Cardiomegaly is noted. The lungs are clear. No evidence of pleural effusion or pneumothorax. Degenerative changes are seen in the bilateral shoulders. IMPRESSION: Cardiomegaly without evidence of acute abnormality. ACT 112: Negative or not required by law. Electronically signed by: Luis Felipe Luna M.D. 04/02/2022 4:37 PM Shoulder X-Ray 04/02/22 16:03 RIGHT SHOULDER 3 VIEWS CLINICAL HISTORY: Right shoulder pain. FINDINGS: 3 views of the right shoulder are compared to study dated 03/17/2022. T he skeletal structures are osteopenic. There is no radiographic evidence of acute fracture or dislocation. Degenerative change is seen at the glenohumeral and acromioclavicular joints. Sclerotic change is noted in the greater tuberosity of the humeral head. The overlying soft tissues are normal as imaged. The right lung parenchyma is clear as visualized. IMPRESSION: No acute bony abnormality is identified. Electronically signed by: Julian Sibley M.D. 04/02/2022 4:23 PM Discharge Plan Visit Data Chief Complaint: Weakness ED Provider: Matthew Esteves Discharge Problem: JAEL (acute kidney injury), Rhabdomyolysis, Adult failure to thrive Patient Disposition: Admitted As Inpatient Discharge Instructions Interventions: ED Discharge Assessment Last Done: 04/02/22 20:21 : Rhabdomyolysis Qualifiers: Rhabdomyolysis type: non-traumatic Qualified Code(s): M62.82 - Rhabdomyolysis
--- NOTE | 2022-04-02 16:25 | XRay Report ---
RIGHT SHOULDER 3 VIEWS CLINICAL HISTORY: Right shoulder pain. FINDINGS: 3 views of the right shoulder are compared to study dated 03/17/2022. The skeletal structure s are osteopenic. There is no radiographic evidence of acute fracture or dislocation. Degenerative ch kadie is seen at the glenohumeral and acromioclavicular joints. Sclerotic change is noted in the great er tuberosity of the humeral head. The overlying soft tissues are normal as imaged. The right lung pa renchyma is clear as visualized. IMPRESSION: No acute bony abnormality is identified. Electronically signed by: Julian Sibley M.D. 04/02/2022 4:23 PM
[2022-04-02] MEDS ORDERED: HYDROmorphone INJ 0.5 MG/0.5 ML SYR IV STA (16:26)
--- NOTE | 2022-04-02 16:39 | XRay Report ---
XR chest 1V portable CLINICAL HISTORY: weakness TECHNIQUE: Single frontal radiograph of the chest was obtained. Comparison: Comparison is made to chest radiograph 03/16/2022 FINDINGS: No lines and tubes are seen. Cardiomegaly is noted. The lungs are clear. No evidence of pleural effus ion or pneumothorax. Degenerative changes are seen in the bilateral shoulders. IMPRESSION: Cardiomegaly without evidence of acute abnormality. ACT 112: Negative or not required by law. Electronically signed by: Luis Felipe Luna M.D. 04/02/2022 4:37 PM
[2022-04-02 17:29] LABS: Hematocrit (blood only) 30.7 % (34.1-44.9); Mean Corpuscular Hemoglobin 30.1 pg (25.0-34.0); Mean Corpuscular Hgb Conc 32.6 g/dL (32.0-36.0); Mean Corpuscular Volume 92.5 fL (80.0-100.0); Mean Platelet Volume 10.4 fL (9.4-12.3); Platelet Count 291 K/uL (130-400); RDW Coefficient of Variation 16.4 % (11.5-14.5); RDW Standard Deviation 55.7 fL (36.4-46.3); Red Blood Count 3.32 M/uL (3.93-5.22); White Blood Count 11.54 K/ul (4.8-10.8)
[2022-04-02 17:53] LABS: Calcium 9.4 mg/dl (8.5-10.1); Creatinine Clr Calc Pharmacy 23.8 ml/min; Est GFR (African American) 31.4 ml/min; Est GFR (Non-African American) 27.1 ml/min; Magnesium 2.6 mg/dl (1.7-2.4); Potassium 3.4 mmol/L (3.5-5.1)
[2022-04-02 17:55] LABS: Basophils # (auto) 0.01 K/uL (0-0.2); Basophils % (auto) 0.1 %; Echinocytes 1+; Immature Granulocytes # (auto) 0.04 K/uL (0.00-0.02); Immature Granulocytes % (auto) 0.3 %; Lymphocytes # (auto) 0.32 K/uL (1.2-3.4); Lymphocytes % (auto) 2.8 %; Monocytes # (auto) 0.75 K/uL (0.24-0.82); Monocytes % (auto) 6.5 %; Neutrophils # (auto) 10.42 K/uL (1.4-6.5); Neutrophils % (auto) 90.3 %; Ovalocytes 1+
[2022-04-02 18:07] LABS: Troponin I High Sensitivity 81.3 pg/ml (0-14)
--- NOTE | 2022-04-02 19:07 | History & Physical Report ---
Date of Service April 02, 2022 Assessment & Plan (1) Weakness: (2) Ambulatory dysfunction: Plan: Pt was brought to the ER for ambulatory dysfunction and weakness after Adult Protective Services found her sitting in a chair and able to care for herself. Shoulder Xray showed no acute bony abnormality is identified. Denies any falls Continue PT/OT eval Pt will need pt placement since she is not able to care for herself But she does not want to leave her pets fely Will consult case fitter JAEL Due to dehydration from poor intake Creatinine on admission 1.8 Received IVF, will continue gently fluid hydration Will hold lasix Monitor closely for sign of volume overload Continue monitor BMP Chronic elevated troponin Possible related to elevate CK level Troponin 81 on admission Echo 02/08/2022: Mild LVH, EF: 60-65%, mild aortic regurgitation Continue metoprolol and plavix Denies any chest pain Will trend troponin Continue monitor Elevated CPK level CPK 224 on admission Continue gently IVF Continue monitor CPK Hypokalemia Potassium 3.4 Continue K supplement Monitor BMP Elevated WBC Mostly reactive CXR showed no infiltrate Will hold on abx for now Continue monitor CBC Chronic diastolic heart failure: Lasix on hold due to elevate creatinine Monitor closely for signs of fluid overload Parkinson's: Continue carbidopa levodopa HTN: Continue metoprolol succinate HLD: Continue statin Hypothyroidism: Continue levothyroxine Chronic pain: Continue home meds RLS: Continue ropinirole Chronic anemia: Hemoglobin 10 stable Continue monitor CBC Asthma: No signs acute exacerbation Continue home inhalers History gastric bypass History GERD: Continue PPI History of Edenilson-Danlos syndrome stbale DVT Prophylaxis INR 3.4 on coumadin Full code History of Present Illness Chief Complaint: Weak/ ambulatory dysfunction Primary Care Provider: Lavern Gomez, DO 72 y/o F with PMH hypercoagulopathy on chronic Coumadin, superficial vein thrombosis, HTN, HLD, chronic diastolic CHF, paroxysmal SVT, asthma, Edenilson- Danlos syndrome, gastric bypass, gastroparesis, RLS, GERD, depression, gait abnormality was brought to the ER for ambulatory dysfunction and weakness. Pt was recently admitted for UTI/Fall and discharged to [facility] for rehab. She said that she was discharged from [facility] to home on Saturday. She said that she was doing ok on Saturday. She said Saturday the body shop manager's took her to check what she described a long term with her. She said the place was beautiful but they will not allow her 2 dogs and cat at the facility. She said that she got back home and she was sitting on the chair. She said that she was afraid to get up from the chair because she did not want to fall. She said that her legs feel weak. She said that she stayed sitting on the chair since Saturday. today when o ffice aging when to visit her, she was found sitting in feces. She said that she has been having frequent BM and not able to make it to the bathroom. She said that she ate cheese and drank coke and lemonade when she got stuck on the chair. She said that she did not want to call for help because she knew when they came they would send her to the hospital and took her dogs away. She said that she is upset because her dogs and cat are the only support that she she has. Office of aging called EMS and pt was brought to the hospital. Denies any chest pain, palpitation, dizziness, fever and SOB. Allergies Allergy/AdvReac Type Severity Reaction Status Date / Time ammonia Allergy Severe FACE, Verified 02/06/22 18:48 LIPS, TONGUE EDEMA buspirone Allergy Severe NEURO Verified 02/06/22 18:48 COMPLICATIONS duloxetine Allergy Intermediate RASH Verified 02/06/22 18:48 ITCHING lisinopril Allergy Intermediate cough Verified 02/06/22 18:48 adhesive Allergy Mild skin tears Verified 02/06/22 18:48 NSAIDS (Non-Steroidal Allergy Unknown not Verified 02/06/22 18:48 Anti-Inflamma supposed to use-S/P GASTRIC BYPASS vancomycin Allergy Unknown ON GMG MED Verified 02/06/22 18:48 LIST venlafaxine Allergy Unknown AFFECTS Verified 02/06/22 18:48 LEGS diphenhydramine AdvReac Intermediate RESTLESS Verified 02/06/22 18:48 LEGS gabapentin AdvReac Intermediate MUSCLE Verified 02/06/22 18:48 STIFFNESS POLLEN Allergy Severe FACE, Uncoded 02/06/22 18:48 LIPS, TONGUE EDEMA Dust Allergy Intermediate ROACHES,DUST Uncoded 02/06/22 18:48 MITES-CLOGGED UP SINUSES-CAN'T BREATHE Home Medications Medication Instructions Recorded Confirmed Type L.acidoph-L.rhamn-B.bifidum-B.long 2 tab PO DAILY 01/09/22 04/02/22 History 12.9 mg (2 billion cell) tablet, DR (Probiotic Acidophilus Biobeads) albuterol sulfate 90 mcg/actuation 2 inh inhalation Q6 PRN Shortness 01/09/22 04/02/22 History aerosol inhaler Of Breath Or Wheezing atorvastatin 20 mg tablet 20 mg PO QAM 01/09/22 04/02/22 History biotin 1 mg tablet 1 mg PO DAILY 01/09/22 04/02/22 History buprenorphine 15 mcg/hour weekly 1 patch topical WK 01/09/22 04/02/22 History transdermal patch carbidopa 25 mg-levodopa 100 mg 1 tab PO QID 01/09/22 04/02/22 History tablet clindamycin phosphate 1 % topical 1 applic topical BID PRN FLARE UPS 01/09/22 04/02/22 History gel cromolyn 4 % eye drops 1 drp OPL QID PRN Itching 01/09/22 04/02/22 History cyanocobalamin (vitamin B-12) 1,000 mcg MO 01/09/22 04/02/22 History 1,000 mcg/mL injection syringe docusate sodium 50 mg capsule 50 mg PO BID PRN Constipation 01/09/22 04/02/22 History ergocalciferol (vitamin D2) 1,250 1,250 mcg PO WK 01/09/22 04/02/22 History mcg (50,000 unit) capsule (Vitamin D2) fluticasone 100 mcg-salmeterol 50 1 inh inhalation BID 01/09/22 04/02/22 History mcg/dose blistr powdr for inhalation (Advair Diskus) fluticasone propionate 50 2 spray intranasal DAILY 01/09/22 04/02/22 History mcg/actuation nasal spray,suspension (Flonase Allergy Relief) furosemide 40 mg tablet 40 - 80 mg PO DAILY INCREASED 01/09/22 04/02/22 History SWELLING IN LEGS hydroxyzine HCl 25 mg tablet 25 mg PO Q6 PRN .ANX/ITCH 01/09/22 04/02/22 History ipratropium 0.5 mg-albuterol 3 mg 3 ml inhalation QID 01/09/22 04/02/22 History (2.5 mg base)/3 mL nebulization soln ipratropium bromide 21 mcg (0.03 1 spray intranasal QID 01/09/22 04/02/22 History %) nasal spray levothyroxine 50 mcg tablet 50 mcg PO DAILY 01/09/22 04/02/22 History lidocaine HCl 2.8 % topical gel 1 applic topical BID PRN APPLY TO 01/09/22 04/02/22 History AFFECTED AREAA linaclotide 290 mcg capsule 290 mcg PO DAILY 01/09/22 04/02/22 History (Linzess) meclizine 25 mg tablet 25 mg PO TID PRN DIZZY 01/09/22 04/02/22 History metaxalone 800 mg tablet 800 mg PO QID 01/09/22 04/02/22 History metoprolol tartrate 25 mg tablet 12.5 mg PO DAILY 01/09/22 04/02/22 History montelukast 10 mg tablet 10 mg PO HS 01/09/22 04/02/22 History omega-3 fatty acids 1,000 mg PO DAILY 01/09/22 04/02/22 History omeprazole 20 mg capsule,delayed 40 mg PO DAILY 01/09/22 04/02/22 History release ondansetron HCl 4 mg tablet 4 mg PO Q12 PRN Nausea 01/09/22 04/02/22 History potassium chloride 20 mEq oral 20 meq PO AMHS 01/09/22 04/02/22 History packet (Klor-Con) ropinirole 2 mg tablet See Rx Instructions .Route .COMPLEX 01/09/22 04/02/22 History sennosides 8.6 mg-docusate sodium 1 tab-cap PO BID 01/09/22 04/02/22 History 50 mg tablet (Senna-S) thiamine HCl (vitamin B1) 100 mg 100 mg PO BID 01/09/22 04/02/22 History tablet triamcinolone acetonide 0.1 % 1 applic topical BID PRN FLARE UP 01/09/22 04/02/22 History topical cream vit C 250 mg-vit E 90 mg-zinc 40 1 tab PO BID 01/09/22 04/02/22 History mg-copper 1 os-ucyumx-knjllb capsule (PreserVision AREDS-2) warfarin 4 mg tablet (Jantoven) 4 mg PO DAILY@1600 #30 tabs 03/20/22 04/02/22 Rx Past Med/Surg History Medical History ADHD Asthma uses PRN INH 3-4 x wk Bulging of intervertebral disc Claustrophobia Difficult intravenous access Dysphagia Edenilson-Danlos syndrome ISAC (generalized anxiety disorder) Gastroparesis GERD (gastroesophageal reflux disease) Hearing deficit History of colon polyps History of colon polyps History of DVT (deep vein thrombosis) chronic anticoagulation History of intestinal obstruction Hyperlipidemia Hypothyroidism Osteoarthritis Osteoporosis Peripheral neuropathy Protein C deficiency Pulmonary embolism 07/2018 - treated w/ lovenox - unk etiology Renal cyst Restless leg syndrome Sleep apnea unable to tolerate CPAP Tachycardia Thoracic aortic aneurysm follows w/ Dr. Arredondo - evaluated within last 6 mo Thyroid nodule Surgical History History of abdominoplasty + hernia repair History of arthroscopy of left knee History of bilateral breast reduction surgery History of cholecystectomy History of colonoscopy History of esophagogastroduodenoscopy (EGD) History of gastric bypass History of intestinal surgery History of laparotomy History of left knee replacement History of right knee joint replacement History of tonsillectomy Hx of melanoma excision shoulder S/P hysterectomy Self extubation attempted post gastric bypass Status post biopsy of thyroid gland benign Family History Uncle Stomach cancer Other No family history of adverse response to anesthesia No pertinent family history in first degree relatives Social History Second Hand Exposure: No; Hx Alcohol Use: No Hx Substance Use: No Preferred Language: Welsh Communication Ability: Effective Visual Impairment: Limited Hearing Ability: Normal Manufacturing Planner Required: No Beliefs That Will Affect Care: None marital status: Single Current Living Situation: Alone Current Living Situation Comment: has friends to help when needed How many Children do You have: 0 Feels Safe at Home: Yes Safety Concerns: Afraid for Self Assistive Devices: Lift Chair and Walker Review of Systems Review of Systems: All systems reviewed & are unremarkable except as noted in HPI & below Physical Exam Physical Exam: General- No acute distress, inttermittent tearful Head- atraumatic Eyes- PERRL, EOMI, ENT- oropharynx clear Neck- supple, no JVD Lungs- clear to auscultation Heart- regular rhythm; + murmur Abdomen- normal bowel sounds, soft, nontender Extremities- +edema, RUE swelling +multiple scattered ecchymosis in extremities Neuro- alert, oriented x 3; PERRL, EOMI; no facial palsy; no dysarthria Skin- warm & dry Results & Data Results & Data ([facility]) Vital Signs (Past 12 Hours) Vital Signs Temp Pulse Resp BP Pulse Ox O2 Del Method 04/02/22 17:00 85 17 04/02/22 16:30 85 18 95 04/02/22 16:30 108/77 04/02/22 16:00 96 04/02/22 16:00 122/69 04/02/22 15:56 97 04/02/22 15:40 16 04/02/22 15:40 98 Room Air 04/02/22 15:58 36.7 C 98 H 22 122/69 96 Room Air Diagnostic Findings Laboratory Results WBC 11.54 K/ul (4.8-10.8) H 04/02/22 17:00 RBC 3.32 M/uL (3.93-5.22) L 04/02/22 17:00 Hgb 10.0 g/dl (12.0-16.0) L 04/02/22 17:00 Hct 30.7 % (34.1-44.9) L 04/02/22 17:00 MCV 92.5 fL (80.0-100.0) 04/02/22 17:00 MCH 30.1 pg (25.0-34.0) 04/02/22 17:00 MCHC 32.6 g/dL (32.0-36.0) 04/02/22 17:00 RDW Std Deviation 55.7 fL (36.4-46.3) H 04/02/22 17:00 RDW Coeff of Neftaly 16.4 % (11.5-14.5) H 04/02/22 17:00 Plt Count 291 K/uL (130-400) 04/02/22 17:00 MPV 10.4 fL (9.4-12.3) 04/02/22 17:00 Immature Gran % (Auto) 0.3 % 04/02/22 17:00 Neut % (Auto) 90.3 % 04/02/22 17:00 Lymph % (Auto) 2.8 % 04/02/22 17:00 Garrett % (Auto) 6.5 % 04/02/22 17:00 Eos % (Auto) 0.0 % 04/02/22 17:00 Baso % (Auto) 0.1 % 04/02/22 17:00 Neut # (Auto) 10.42 K/uL (1.4-6.5) H 04/02/22 17:00 Lymph # (Auto) 0.32 K/uL (1.2-3.4) L 04/02/22 17:00 Garrett # (Auto) 0.75 K/uL (0.24-0.82) 04/02/22 17:00 Eos # (Auto) 0.00 K/uL (0-0.50) 04/02/22 17:00 Baso # (Auto) 0.01 K/uL (0-0.2) 04/02/22 17:00 Immature Gran # (Auto) 0.04 K/uL (0.00-0.02) H 04/02/22 17:00 Ovalocytes 1+ 04/02/22 17:00 Echinocytes 1+ 04/02/22 17:00 PT 33.5 Seconds (9.0-12.0) H 04/02/22 17:00 INR 3.4 (0.9-1.1) H 04/02/22 17:00 APTT 46.8 Seconds (21.0-31.0) H* 04/02/22 17:00 PTT Ratio 1.7 04/02/22 17:00 Sodium 135 mmol/L (136-145) L 04/02/22 17:00 Potassium 3.4 mmol/L (3.5-5.1) L 04/02/22 17:00 Chloride 103 mmol/L (98-107) 04/02/22 17:00 Carbon Dioxide 23 mmol/L (21-32) 04/02/22 17:00 Anion Gap 9 (3-11) 04/02/22 17:00 BUN 44 mg/dl (6-23) H 04/02/22 17:00 Creatinine 1.83 mg/dl (0.6-1.2) H 04/02/22 17:00 Est Cr Clr Drug Dosing 23.8 ml/min 04/02/22 17:00 Est GFR ( Amer) 31.4 ml/min 04/02/22 17:00 Est GFR (Non-Af Amer) 27.1 ml/min 04/02/22 17:00 BUN/Creatinine Ratio 24.0 (10-20) H 04/02/22 17:00 Glucose 109 mg/dl (70-99(Fasting)) H 04/02/22 17:00 Calcium 9.4 mg/dl (8.5-10.1) 04/02/22 17:00 Magnesium 2.6 mg/dl (1.7-2.4) H 04/02/22 17:00 Total Creatine Kinase 224 U/L (26-192) H 04/02/22 17:00 Troponin I High Sens 81.3 pg/ml (0-14) H* D 04/02/22 17:00 SARS-CoV-2, RNA, NAAT NEGATIVE (NEGATIVE) 04/02/22 17:30 Impressions Chest X-Ray 04/02/22 16:03 XR chest 1V portable CLINICAL HISTORY: weakness TECHNIQUE: Single frontal radiograph of the chest was obtained. Comparison: Comparison is made to chest radiograph 03/16/2022 FINDINGS: No lines and tubes are seen. Cardiomegaly is noted. The lungs are clear. No evidence of pleural effusion or pneumothorax. Degenerative changes are seen in the bilateral shoulders. IMPRESSION: Cardiomegaly without evidence of acute abnormality. ACT 112: Negative or not required by law. Electronically signed by: Luis Felipe Luna M.D. 04/02/2022 4:37 PM Shoulder X-Ray 04/02/22 16:03 RIGHT SHOULDER 3 VIEWS CLINICAL HISTORY: Right shoulder pain. FINDINGS: 3 views of the right shoulder are compared to study dated 03/17/2022. The skeletal structures are osteopenic. There is no radiographic evidence of acute fracture or dislocation. Degenerative change is seen at the glenohumeral and acromioclavicular joints. Sclerotic change is noted in the greater tuberosity of the humeral head. The overlying soft tissues are normal as imaged. The right lung parenchyma is clear as visualized. IMPRESSION: No acute bony abnormality is identified. Electronically signed by: Julian Sibley M.D. 04/02/2022 4:23 PM Code Status & VTE Plan VTE Prophylaxis Plan VTE Prophylaxis will be ordered: Yes
[2022-04-02 19:58] LABS: INR 3.4 (0.9-1.1); Partial Thromboplastin Ratio 1.7; Prothrombin Time 33.5 Seconds (9.0-12.0)
[2022-04-02 20:01] LABS: Partial Thromboplastin Time 46.8 Seconds (21.0-31.0)
[2022-04-02] MEDS ORDERED: METAXALONE 800 MG TABLET PO SCH (21:33)
[2022-04-02] MEDS ORDERED: ALBUTEROL HFA 8 GM INHALER INH PRN (21:33)
[2022-04-02] MEDS ORDERED: WARFARIN SOD 2.5 MG TAB PO ONE (21:33)
[2022-04-02] MEDS: SODIUM CHLORIDE 0.9% 1000ML 1,000 ML IV SCH (21:57)
[2022-04-02] MEDS: CARBIDOPA/LEVODOPA 25/100MG TAB PO SCH (22:47)
[2022-04-02] MEDS: THIAMINE HCL 100 MG TAB PO SCH (22:48)
[2022-04-02] MEDS: rOPINIRole HCL 1 MG TABLET PO SCH (22:48)
[2022-04-02] MEDS: POTASSIUM CHLORIDE PWD 20 MEQ PACK PO SCH (22:49)
[2022-04-02] MEDS: IPRATROPIUM BROMIDE NASAL SPRAY 0.06% 15ML NAE SCH (22:49)
[2022-04-02] MEDS: MONTELUKAST SODIUM 10 MG TABLET PO SCH (22:49)
[2022-04-03] MEDS: ALBUT/IPRATROP 3MG/0.5MG NEB 3 ML VIAL INH SCH ×4 (01:12→15:06)
[2022-04-03] MEDS: ACETAMINOPHEN 325 MG TAB PO PRN (06:01)
[2022-04-03] MEDS: LEVOTHYROXINE SODIUM 50 MCG TABLET PO SCH (06:01)
[2022-04-03 06:58] LABS: Appearance Urine Cloudy (Clear); Bacteria Urine Automated 4+ (Negative); Bilirubin Urine Negative (Negative); Blood Urine 3+ (Negative); Color Urine Yellow; Epithelial Cell Urine Auto >30 /lpf (0-5); Glucose Urine UA Negative (Negative); Ketones Urine Trace (Negative); Leukocyte Esterase Urine 2+ (Negative); Nitrite Urine Negative (Negative); Protein Urine 1+ (Negative); Specific Gravity Urine 1.019 (1.000-1.030); Urobilinogen Urine Negative (Negative); WBC Urine Automated >30 /hpf (0-5)
[2022-04-03 07:56] LABS: Hematocrit (blood only) 25.8 % (34.1-44.9); Hemoglobin 8.3 g/dl (12.0-16.0); Mean Corpuscular Hemoglobin 30.3 pg (25.0-34.0); Mean Corpuscular Hgb Conc 32.2 g/dL (32.0-36.0); Mean Corpuscular Volume 94.2 fL (80.0-100.0); Mean Platelet Volume 10.2 fL (9.4-12.3); Platelet Count 242 K/uL (130-400); RDW Coefficient of Variation 16.5 % (11.5-14.5); RDW Standard Deviation 56.9 fL (36.4-46.3); Red Blood Count 2.74 M/uL (3.93-5.22); White Blood Count 6.81 K/ul (4.8-10.8)
[2022-04-03 08:19] LABS: INR 3.6 (0.9-1.1); Prothrombin Time 35.9 Seconds (9.0-12.0)
[2022-04-03] MEDS: PANTOprazole 40 MG TAB PO SCH (08:24)
[2022-04-03] MEDS: LINACLOTIDE 145 MCG CAPSULE PO SCH (08:25)
[2022-04-03] MEDS: ATORVASTATIN 20 MG TAB PO SCH (08:25)
[2022-04-03] MEDS: rOPINIRole HCL 1 MG TABLET PO SCH ×4 (08:25→20:36)
[2022-04-03] MEDS: METOPROLOL TARTRATE 25 MG TAB PO SCH (08:26)
[2022-04-03] MEDS: OMEGA-3 (PURIFIED FISH OIL) 1 GM CAP PO SCH (08:26)
[2022-04-03] MEDS: IPRATROPIUM BROMIDE NASAL SPRAY 0.06% 15ML NAE SCH ×4 (08:26→20:36)
[2022-04-03] MEDS: CEROVITE ADV FORMULA TAB PO SCH (08:26)
[2022-04-03] MEDS: ADVANCED PROBIOTIC 1250 MG CAPSULE PO SCH (08:26)
[2022-04-03] MEDS: FLUTICASONE/VILANTEROL 100/25MCG 14 PUFFS/INHALER INH SCH (08:26)
[2022-04-03] MEDS: THIAMINE HCL 100 MG TAB PO SCH ×2 (08:27→20:35)
[2022-04-03] MEDS: CARBIDOPA/LEVODOPA 25/100MG TAB PO SCH ×4 (08:27→20:35)
[2022-04-03] MEDS: POTASSIUM CHLORIDE PWD 20 MEQ PACK PO SCH ×2 (08:27→20:35)
[2022-04-03] MEDS: oxyCODONE/ACETAMINOPHEN 5mg/325mg TAB PO PRN ×2 (08:28→20:35)
[2022-04-03 08:48] LABS: Troponin I High Sensitivity 82.9 pg/ml (0-14)
[2022-04-03 08:55] LABS: BUN Creatinine Ratio 27.1 (10-20); Calcium 8.4 mg/dl (8.5-10.1); Creatinine Clr Calc Pharmacy 34.7 ml/min; Est GFR (African American) 46.2 ml/min; Est GFR (Non-African American) 39.8 ml/min; Potassium 3.3 mmol/L (3.5-5.1)
[2022-04-03] MEDS ORDERED: NON-FORMULARY MEDICATION (Biotin 1 mg Tablet) PO SCH (09:00)
[2022-04-03] MEDS: cefTRIAXone SODIUM 1,000 MG in DEXTROSE 5% 50 ML IV SCH (09:39)
[2022-04-03] MEDS: SODIUM CHLORIDE 0.9% 1000ML 1,000 ML IV SCH (14:36)
--- NOTE | 2022-04-03 17:22 | Hospitalist Progress Note ---
Date of Service April 03, 2022 Assessment & Plan (1) Weakness: (2) Ambulatory dysfunction: Plan: Patient was brought to the ER for ambulatory dysfunction and weakness after Adult Protective Services found her sitting in a chair and able to care for herself. Ambulatory dysfunction Generalized weakness H/O R rotator cuff tear --plan for surgery as outpatient Shoulder Xray showed no acute bony abnormality is identified. fall precautions Continue PT/OT eval Will need placement JAEL Due to dehydration from poor intake Cr 1.8>>>1.3 Hold diuretics Avoid nephrotoxic agents as able Monitor renal function Monitor volume status Continue IV fluids cautiously Suspected UTI H/O multiple UTIs in the past Urine culture pending Empirically started on Rocephin Hypokalemia Replace electrolytes as needed Chronic elevated troponin Possible related to elevate CK level Troponin 81 on admission Echo 02/08/2022: Mild LVH, EF: 60-65%, mild aortic regurgitation Continue metoprolol and plavix Denies any chest pain Will trend troponin Continue monitor Supratherapeutic INR No bleeding issues Hold Coumadin Monitor INR 3.6 today Elevated CPK level CPK 224>112 Improved Chronic diastolic heart failure: Lasix on hold due to JAEL Monitor volume status Parkinson's: Continue carbidopa levodopa HTN: Continue metoprolol succinate HLD: Continue statin Hypothyroidism: Continue levothyroxine Chronic pain: Continue home meds RLS: Continue ropinirole Chronic anemia: monitor CBC Asthma: No signs acute exacerbation Continue home inhalers History gastric bypass History GERD: Continue PPI H/O Edenilson-Danlos syndrome stable DVT Px: INR supratherapeutic Code Status Full code Admission and Anticipated Discharge Date Admission Date: April 02, 2022 Subjective Patient is seen and examined at bedside States having chronic right shoulder pain secondary to rotator cuff tear Feels anxious and has generalized weakness Denies any chest pain, shortness of breath, dizziness, nausea, abdominal pain No other complaints Review of Systems Review of Systems: All systems reviewed & are unremarkable except as noted in Subjective Physical Exam Physical Exam: Physical Exam: Vitals signs as noted above General Appearance:Moderately built and nourished, no apparent distress, Elderly Head: normocephalic, Atraumatic Eyes: normal inspection, EOMI Neck: supple, Trachea midline Respiratory/Chest: Decreased breath sounds, CTA, No accessory muscle use Cardiovascular: S1, S2, + murmur Abdomen/GI:Soft, Non tender, Bowel sounds present Extremities/Musculoskeletal:normal inspection, + B/L LE edema, R shoulder decreased ROM Neurologic/Psych:AAOX3, grossly no focal neurological deficits Skin: normal color, warm, RLE wounds Results & Data Results & Data ([facility]) Vital Signs (Past 12 Hours) Vital Signs Temp Pulse Pulse Resp BP Pulse Ox O2 Del Method 04/03/22 15:39 81 04/03/22 15:06 73 16 98 Room Air 04/03/22 14:45 36.3 C L 16 94/62 L 97 Room Air 04/03/22 07:30 Room Air 04/03/22 10:51 62 16 98 Room Air 04/03/22 07:43 83 04/03/22 07:13 76 16 92 Room Air Laboratory Results Short CBC 04/02/22 04/03/22 Range/Units 17:00 07:39 WBC 11.54 H 6.81 (4.8-10.8) K/ul Hgb 10.0 L 8.3 L (12.0-16.0) g/dl Hct 30.7 L 25.8 L (34.1-44.9) % Plt Count 291 242 (130-400) K/uL BMP 04/02/22 04/03/22 17:00 07:39 Sodium 135 L 139 Potassium 3.4 L 3.3 L Chloride 103 109 H Carbon Dioxide 23 21 BUN 44 H 36 H Creatinine 1.83 H 1.33 H D Glucose 109 H 89 Calcium 9.4 8.4 L Cardiac Enzymes 04/02/22 04/03/22 Range/Units 17:00 07:39 Total Creatine Kinase 224 H 112 (26-192) U/L Urine 04/03/22 Range/Units Unknown Urine Color Yellow Urine Appearance Cloudy A (Clear) Urine pH 5.0 (4.5-7.5) Ur Specific [place] 1.019 (1.000-1.030) Urine Protein 1+ H (Negative) Urine Glucose (UA) Negative (Negative)
[2022-04-03] MEDS: MONTELUKAST SODIUM 10 MG TABLET PO SCH (20:35)
--- NOTE | 2022-04-03 23:15 | Electrocardiogram Report ---
Test Reason : Blood Pressure : / mmHG Vent. Rate : 072 BPM Atrial Rate : 072 BPM P-R Int : 168 ms QRS Dur : 104 ms QT Int : 416 ms P-R-T Axes : 033 -10 028 degrees QTc Int : 455 ms Normal sinus rhythm Normal ECG When compared with ECG of 17-MAR-2022 05:25, No significant change Confirmed by Alexey Jennings ([id number]) on 04/03/2022 11:15:05 PM Referred By: REFERRED SELF Confirmed By:Alexey Jennings
[2022-04-04] MEDS: ACETAMINOPHEN 325 MG TAB PO PRN (01:31)
[2022-04-04] MEDS: oxyCODONE/ACETAMINOPHEN 5mg/325mg TAB PO PRN ×3 (04:34→21:22)
[2022-04-04] MEDS: LEVOTHYROXINE SODIUM 50 MCG TABLET PO SCH (06:11)
[2022-04-04 06:42] LABS: INR 3.2 (0.9-1.1); Prothrombin Time 31.9 Seconds (9.0-12.0)
[2022-04-04 07:33] LABS: BUN Creatinine Ratio 27.9 (10-20); Calcium 8.2 mg/dl (8.5-10.1); Creatinine Clr Calc Pharmacy 44.1 ml/min; Est GFR (African American) 62.2 ml/min; Est GFR (Non-African American) 53.6 ml/min; Potassium 3.4 mmol/L (3.5-5.1)
[2022-04-04] MEDS: IPRATROPIUM BROMIDE NASAL SPRAY 0.06% 15ML NAE SCH ×4 (08:43→21:24)
[2022-04-04] MEDS: rOPINIRole HCL 1 MG TABLET PO SCH ×4 (08:43→21:24)
[2022-04-04] MEDS: FLUTICASONE/VILANTEROL 100/25MCG 14 PUFFS/INHALER INH SCH (08:43)
[2022-04-04] MEDS: CARBIDOPA/LEVODOPA 25/100MG TAB PO SCH ×4 (08:44→21:24)
[2022-04-04] MEDS: ATORVASTATIN 20 MG TAB PO SCH (08:44)
[2022-04-04] MEDS: ADVANCED PROBIOTIC 1250 MG CAPSULE PO SCH (08:44)
[2022-04-04] MEDS: OMEGA-3 (PURIFIED FISH OIL) 1 GM CAP PO SCH (08:44)
[2022-04-04] MEDS: LINACLOTIDE 145 MCG CAPSULE PO SCH (08:45)
[2022-04-04] MEDS: CEROVITE ADV FORMULA TAB PO SCH (08:45)
[2022-04-04] MEDS: METOPROLOL TARTRATE 25 MG TAB PO SCH ×2 (08:45→08:50)
[2022-04-04] MEDS: PANTOprazole 40 MG TAB PO SCH (08:45)
[2022-04-04] MEDS: POTASSIUM CHLORIDE PWD 20 MEQ PACK PO SCH ×2 (08:46→21:24)
[2022-04-04] MEDS: THIAMINE HCL 100 MG TAB PO SCH ×2 (08:46→21:24)
[2022-04-04] MEDS: cefTRIAXone SODIUM 1,000 MG in DEXTROSE 5% 50 ML IV SCH (09:10)
--- NOTE | 2022-04-04 17:34 | Hospitalist Progress Note ---
Date of Service April 04, 2022 Assessment & Plan (1) Weakness: (2) Ambulatory dysfunction: Plan: Patient was brought to the ER for ambulatory dysfunction and weakness after Adult Protective Services found her sitting in a chair and able to care for herself. Ambulatory dysfunction Generalized weakness H/O R rotator cuff tear --plan for surgery as outpatient Shoulder Xray showed no acute bony abnormality is identified. fall precautions Continue PT/OT eval Will need placement JAEL Due to dehydration from poor intake Cr 1.8>>>1.3>1.04 Held diuretics--resume as able Avoid nephrotoxic agents as able Monitor renal function Monitor volume status IV fluids discontinued UTI-POA H/O multiple UTIs in the past Urine culture growing gram negative bacilli Continue Rocephin Day #2 Hypokalemia Replace electrolytes as needed Chronic elevated troponin Possible related to elevate CK level Troponin 81 on admission Echo 02/08/2022: Mild LVH, EF: 60-65%, mild aortic regurgitation Continue metoprolol and plavix Denies any chest pain Trended troponin Continue monitor Supratherapeutic INR No bleeding issues Hold Coumadin today Monitor INR 3.2 today Elevated CPK level CPK 224>112 Improved Chronic diastolic heart failure: Lasix on hold due to JAEL Monitor volume status Parkinson's: Continue carbidopa levodopa HTN: Continue metoprolol succinate HLD: Continue statin Hypothyroidism: Continue levothyroxine Chronic pain: Continue home meds RLS: Continue ropinirole Chronic anemia: monitor CBC Asthma: No signs acute exacerbation Continue home inhalers History gastric bypass History GERD: Continue PPI H/O Edenilson-Danlos syndrome stable DVT Px: INR supratherapeutic Code Status Full code Admission and Anticipated Discharge Date Admission Date: April 02, 2022 Subjective Patient is seen and examined at bedside Reports chronic pain Also reports sore cheeks Denies any chest pain, shortness of breath, dizziness, nausea, abdominal pain No other complaints Review of Systems Review of Systems: All systems reviewed & are unremarkable except as noted in Subjective Physical Exam Physical Exam: Physical Exam: Vitals signs as noted above General Appearance:Moderately built and nourished, no apparent distress, Elderly Head: normocephalic, Atraumatic Eyes: normal inspection, EOMI Neck: supple, Trachea midline Respiratory/Chest: Decreased breath sounds, CTA, No accessory muscle use Cardiovascular: S1, S2, + murmur Abdomen/GI:Soft, Non tender, Bowel sounds present Extremities/Musculoskeletal:normal inspection, + B/L LE edema, R shoulder decreased ROM Neurologic/Psych:AAOX3, grossly no focal neurological deficits Skin: normal color, warm, RLE wounds Results & Data Results & Data ([facility]) Vital Signs (Past 12 Hours) Vital Signs Temp Pulse Pulse Resp BP Pulse Ox O2 Del Method 04/04/22 15:46 36.7 C 89 18 132/90 98 Room Air 04/04/22 15:07 104 H 04/04/22 11:33 36.8 C 80 18 101/67 98 04/04/22 08:13 37.0 C 75 18 96/60 L 98 04/04/22 07:12 71 Laboratory Results [facility] 04/04/22 05:22 Sodium 135 L Potassium 3.4 L Chloride 110 H Carbon Dioxide 19 L BUN 29 H Creatinine 1.04 Glucose 105 H Calcium 8.2 L
[2022-04-04] MEDS: MONTELUKAST SODIUM 10 MG TABLET PO SCH (21:24)
[2022-04-05] MEDS: BENZOCAINE 20% (ORAJEL) 11.9 GM TUBE MT PRN ×2 (01:19→21:27)
[2022-04-05] MEDS: ACETAMINOPHEN 325 MG TAB PO PRN ×2 (03:14→23:19)
[2022-04-05] MEDS: LEVOTHYROXINE SODIUM 50 MCG TABLET PO SCH (06:14)
[2022-04-05 06:27] LABS: Hematocrit (blood only) 24.1 % (34.1-44.9); Hemoglobin 7.7 g/dl (12.0-16.0); Mean Corpuscular Hemoglobin 30.2 pg (25.0-34.0); Mean Corpuscular Volume 94.5 fL (80.0-100.0); Mean Platelet Volume 9.9 fL (9.4-12.3); Platelet Count 236 K/uL (130-400); RDW Coefficient of Variation 16.6 % (11.5-14.5); RDW Standard Deviation 58.2 fL (36.4-46.3); Red Blood Count 2.55 M/uL (3.93-5.22)
[2022-04-05 06:35] LABS: INR 1.7 (0.9-1.1); Prothrombin Time 17.8 Seconds (9.0-12.0)
[2022-04-05 06:49] LABS: BUN Creatinine Ratio 23.4 (10-20); Calcium 8.5 mg/dl (8.5-10.1); Creatinine Clr Calc Pharmacy 50.1 ml/min; Est GFR (African American) 70.2 ml/min; Est GFR (Non-African American) 60.6 ml/min; Potassium 3.9 mmol/L (3.5-5.1)
[2022-04-05] MEDS: CARBIDOPA/LEVODOPA 25/100MG TAB PO SCH ×4 (08:28→21:24)
[2022-04-05] MEDS: oxyCODONE/ACETAMINOPHEN 5mg/325mg TAB PO PRN ×2 (08:28→17:33)
[2022-04-05] MEDS: POTASSIUM CHLORIDE PWD 20 MEQ PACK PO SCH ×2 (08:29→21:25)
[2022-04-05] MEDS: CEROVITE ADV FORMULA TAB PO SCH (08:29)
[2022-04-05] MEDS: THIAMINE HCL 100 MG TAB PO SCH ×2 (08:29→21:24)
[2022-04-05] MEDS: rOPINIRole HCL 1 MG TABLET PO SCH ×4 (08:29→21:24)
[2022-04-05] MEDS: IPRATROPIUM BROMIDE NASAL SPRAY 0.06% 15ML NAE SCH ×4 (08:29→21:22)
[2022-04-05] MEDS: ADVANCED PROBIOTIC 1250 MG CAPSULE PO SCH (08:30)
[2022-04-05] MEDS: LINACLOTIDE 145 MCG CAPSULE PO SCH (08:30)
[2022-04-05] MEDS: ATORVASTATIN 20 MG TAB PO SCH (08:30)
[2022-04-05] MEDS: METOPROLOL TARTRATE 25 MG TAB PO SCH (08:30)
[2022-04-05] MEDS: OMEGA-3 (PURIFIED FISH OIL) 1 GM CAP PO SCH (08:30)
[2022-04-05] MEDS: PANTOprazole 40 MG TAB PO SCH (08:30)
[2022-04-05] MEDS: FLUTICASONE/VILANTEROL 100/25MCG 14 PUFFS/INHALER INH SCH (08:31)
[2022-04-05] MEDS: cefTRIAXone SODIUM 1,000 MG in DEXTROSE 5% 50 ML IV SCH (10:10)
[2022-04-05] MEDS: FUROSEMIDE 40 MG TAB PO SCH (10:35)
[2022-04-05 11:02] LABS: Ferritin 382.1 ng/ml (8-388)
--- NOTE | 2022-04-05 14:33 | Ultrasound Report ---
BILATERAL LOWER LEG ULTRASOUND TO ASSESS FOR HEMATOMA CLINICAL HISTORY: B/L leg swelling, anemia, Rule out hematoma COMPARISON STUDY: Bilateral lower extremity venous Doppler ultrasound January 10, 2022. TECHNIQUE: Sonography of the bilateral lower legs was performed to assess for hematoma. FINDINGS: No fluid collection was identified within the lower legs to suggest hematoma by sonography. Bilateral calf edema, a nonspecific finding, was noted. IMPRESSION: 1. No lower leg fluid collection to suggest hematoma. 2. Bilateral calf edema. ACT 112: Negative or not required by law. Electronically signed by: Norris Blackburn M.D. 04/05/2022 2:32 PM
[2022-04-05 15:12] LABS: Hematocrit (blood only) 30.1 % (34.1-44.9); Hemoglobin 9.5 g/dl (12.0-16.0)
--- NOTE | 2022-04-05 15:54 | Hospitalist Progress Note ---
Date of Service April 05, 2022 Assessment & Plan (1) Weakness: (2) Ambulatory dysfunction: Plan: Patient was brought to the ER for ambulatory dysfunction and weakness after Adult Protective Services found her sitting in a chair and able to care for herself. Ambulatory dysfunction Generalized weakness H/O R rotator cuff tear --plan for surgery as outpatient Shoulder Xray showed no acute bony abnormality is identified. fall precautions Continue PT/OT eval Will need placement JAEL Due to dehydration from poor intake Cr 1.8>>>1.3>1.04>0.94 Held diuretics--resume as able Avoid nephrotoxic agents as able Monitor renal function Monitor volume status IV fluids discontinued 04/04 Restarted on Lasix today UTI-POA H/O multiple UTIs in the past Urine culture growing Klebsiella pneumonia Continue Rocephin Day #3 Hypokalemia Replace electrolytes as needed Chronic elevated troponin Possible related to elevate CK level Troponin 81 on admission Echo 02/08/2022: Mild LVH, EF: 60-65%, mild aortic regurgitation Continue metoprolol and plavix Denies any chest pain Trended troponin Continue monitor Supratherapeutic INR No bleeding issues Monitor INR 3.6>3.2>1.7 Resume Coumadin today Elevated CPK level CPK 224>112 Improved Chronic diastolic heart failure: Lasix initially held due to JAEL Monitor volume status Resume lasix today Monitor renal function, electrolytes Parkinson's: Continue carbidopa levodopa HTN: Continue metoprolol succinate HLD: Continue statin Hypothyroidism: Continue levothyroxine Chronic pain: Continue home meds RLS: Continue ropinirole Chronic anemia: monitor CBC Hb drop likely dilutional Anemia work up ordered No obvious source of bleeding Monitor Asthma: No signs acute exacerbation Continue home inhalers History gastric bypass History GERD: Continue PPI H/O Edenilson-Danlos syndrome stable DVT Px: Coumadin Code Status Full code Admission and Anticipated Discharge Date Admission Date: April 02, 2022 Subjective Patient is seen and examined at bedside Has chronic generalized pain Had leg cramps overnight attributes to RLS which resolved currently Reports worsening LE edema L>R Denies any chest pain, shortness of breath, dizziness, nausea, abdominal pain Review of Systems Review of Systems: All systems reviewed & are unremarkable except as noted in Subjective Physical Exam Physical Exam: Physical Exam: Vitals signs as noted above General Appearance:Moderately built and nourished, no apparent distress, Elderly Head: normocephalic, Atraumatic Eyes: normal inspection, EOMI Neck: supple, Trachea midline Respiratory/Chest: Decreased breath sounds, CTA, No accessory muscle use Cardiovascular: S1, S2, + murmur Abdomen/GI:Soft, Non tender, Bowel sounds present Extremities/Musculoskeletal:normal inspection, + B/L LE edema, R shoulder decreased ROM Neurologic/Psych:AAOX3, grossly no focal neurological deficits Skin: normal color, warm, RLE wounds Results & Data Results & Data ([facility]) Vital Signs (Past 12 Hours) Vital Signs Temp Pulse Pulse Resp BP Pulse Ox 04/05/22 14:57 75 04/05/22 07:56 36.6 C 88 18 134/85 94 04/05/22 07:25 86 Laboratory Results Short CBC 04/05/22 04/05/22 Range/Units 06:00 14:55 WBC 6.10 (4.8-10.8) K/ul Hgb 7.7 L 9.5 L (12.0-16.0) g/dl Hct 24.1 L 30.1 L (34.1-44.9) % Plt Count 236 (130-400) K/uL BMP 04/05/22 06:00 Sodium 136 Potassium 3.9 Chloride 110 H Carbon Dioxide 21 BUN 22 Creatinine 0.94 Glucose 81 Calcium 8.5
[2022-04-05] MEDS: WARFARIN SOD 2.5 MG TAB PO SCH (16:06)
[2022-04-05] MEDS: MONTELUKAST SODIUM 10 MG TABLET PO SCH (21:24)
[2022-04-06] MEDS ORDERED: rOPINIRole HCL 1 MG TABLET PO STA (01:06)
[2022-04-06] MEDS: oxyCODONE/ACETAMINOPHEN 5mg/325mg TAB PO PRN ×2 (01:26→15:31)
[2022-04-06] MEDS: LEVOTHYROXINE SODIUM 50 MCG TABLET PO SCH (06:19)
[2022-04-06] MEDS: ACETAMINOPHEN 325 MG TAB PO PRN ×2 (06:31→22:01)
[2022-04-06 06:51] LABS: INR 1.4 (0.9-1.1); Prothrombin Time 14.6 Seconds (9.0-12.0)
[2022-04-06 07:50] LABS: Hemoglobin 9.4 g/dl (12.0-16.0); Mean Corpuscular Hemoglobin 30.3 pg (25.0-34.0); Mean Corpuscular Hgb Conc 32.4 g/dL (32.0-36.0); Mean Corpuscular Volume 93.5 fL (80.0-100.0); Mean Platelet Volume 9.9 fL (9.4-12.3); Platelet Count 296 K/uL (130-400); RDW Coefficient of Variation 16.6 % (11.5-14.5); White Blood Count 5.89 K/ul (4.8-10.8)
[2022-04-06 08:19] LABS: BUN Creatinine Ratio 21.5 (10-20); Calcium 8.7 mg/dl (8.5-10.1); Creatinine Clr Calc Pharmacy 50.7 ml/min; Est GFR (African American) 71.2 ml/min; Est GFR (Non-African American) 61.4 ml/min; Potassium 3.8 mmol/L (3.5-5.1)
[2022-04-06] MEDS: METOPROLOL TARTRATE 25 MG TAB PO SCH (08:50)
[2022-04-06] MEDS: LINACLOTIDE 145 MCG CAPSULE PO SCH (08:51)
[2022-04-06] MEDS: CEROVITE ADV FORMULA TAB PO SCH (08:51)
[2022-04-06] MEDS: FUROSEMIDE 40 MG TAB PO SCH (08:51)
[2022-04-06] MEDS: PANTOprazole 40 MG TAB PO SCH (08:51)
[2022-04-06] MEDS: ATORVASTATIN 20 MG TAB PO SCH (08:52)
[2022-04-06] MEDS: THIAMINE HCL 100 MG TAB PO SCH ×2 (08:52→21:57)
[2022-04-06] MEDS: ADVANCED PROBIOTIC 1250 MG CAPSULE PO SCH (08:52)
[2022-04-06] MEDS: CARBIDOPA/LEVODOPA 25/100MG TAB PO SCH ×4 (08:52→21:54)
[2022-04-06] MEDS: POTASSIUM CHLORIDE PWD 20 MEQ PACK PO SCH ×2 (08:53→21:56)
[2022-04-06] MEDS: rOPINIRole HCL 1 MG TABLET PO SCH ×4 (08:53→21:57)
[2022-04-06] MEDS: FLUTICASONE/VILANTEROL 100/25MCG 14 PUFFS/INHALER INH SCH (08:54)
[2022-04-06] MEDS: IPRATROPIUM BROMIDE NASAL SPRAY 0.06% 15ML NAE SCH ×4 (08:54→21:54)
[2022-04-06] MEDS: cefTRIAXone SODIUM 1,000 MG in DEXTROSE 5% 50 ML IV SCH (09:24)
[2022-04-06] MEDS: OMEGA-3 (PURIFIED FISH OIL) 1 GM CAP PO SCH (10:25)
[2022-04-06] MEDS ORDERED: CYCLOBENZAPRINE HCL 10 MG TAB PO PRN (12:12)
[2022-04-06] MEDS: METAXALONE 800 MG TABLET PO SCH ×2 (13:29→21:55)
--- NOTE | 2022-04-06 16:12 | Hospitalist Progress Note ---
Date of Service April 06, 2022 Assessment & Plan (1) Weakness: (2) Ambulatory dysfunction: Plan: Patient was brought to the ER for ambulatory dysfunction and weakness after Adult Protective Services found her sitting in a chair and able to care for herself. Ambulatory dysfunction Generalized weakness H/O R rotator cuff tear --plan for surgery as outpatient Shoulder Xray showed no acute bony abnormality is identified. fall precautions Continue PT/OT eval Will need placement - pending SNF placement JAEL Due to dehydration from poor intake Cr 1.8>>>1.3>1.04>0.94 Held diuretics--resume as able Avoid nephrotoxic agents as able Monitor renal function Monitor volume status IV fluids discontinued 04/04 Restarted on Lasix 04/05/2022 UTI-POA H/O multiple UTIs in the past Urine culture growing Klebsiella pneumonia Continue Rocephin Day #4/5 Hypokalemia Replace electrolytes as needed Chronic elevated troponin Possible related to elevate CK level Troponin 81 on admission Echo 02/08/2022: Mild LVH, EF: 60-65%, mild aortic regurgitation Continue metoprolol and plavix Denies any chest pain Trended troponin Continue monitor Supratherapeutic INR No bleeding issues Resume Coumadin 04/05/2022 - daily INR while inpatient Chronic diastolic heart failure: Lasix initially held due to JAEL Monitor volume status Resume lasix 04/05/2022 Monitor renal function, electrolytes Parkinson's: Continue carbidopa levodopa HTN: Continue metoprolol succinate HLD: Continue statin Hypothyroidism: Continue levothyroxine Chronic pain: Continue home meds RLS: Continue ropinirole Chronic anemia: monitor CBC Hb drop likely dilutional Anemia work up ordered No obvious source of bleeding Monitor Asthma: No signs acute exacerbation Continue home inhalers History gastric bypass History GERD: Continue PPI H/O Edenilson-Danlos syndrome stable DVT Px: Coumadin Code Status Full code Admission and Anticipated Discharge Date Admission Date: April 02, 2022 Subjective Patient is seen and examined at bedside Has chronic generalized pain Had leg cramps overnight attributes to RLS which resolved currently Denies any chest pain, shortness of breath, dizziness, nausea, abdominal pain Review of Systems Review of Systems: All systems reviewed & are unremarkable except as noted in Subjective Physical Exam Physical Exam: General Appearance:Moderately built and nourished, no apparent distress, Elderly Head: normocephalic, Atraumatic Eyes: normal inspection, EOMI Neck: supple, Trachea midline Respiratory/Chest: Decreased breath sounds, CTA, No accessory muscle use Cardiovascular: S1, S2, + murmur Abdomen/GI:Soft, Non tender, Bowel sounds present Extremities/Musculoskeletal:normal inspection, + B/L LE edema, R shoulder decreased ROM Neurologic/Psych:AAOX3, grossly no focal neurological deficits Skin: normal color, warm, RLE wounds Results & Data Results & Data ([facility]) Vital Signs (Past 12 Hours) Vital Signs Temp Pulse Pulse Resp BP BP Pulse Ox 04/06/22 16:07 36.5 C 87 16 111/83 96 04/06/22 15:42 76 04/06/22 11:21 36.4 C L 72 18 104/72 97 04/06/22 07:53 88 04/06/22 07:46 36.7 C 101 H 20 120/85 98 O2 Del Method 04/06/22 16:07 Room Air 04/06/22 15:42 04/06/22 11:21 04/06/22 07:53 04/06/22 07:46 Diagnostic Findings Laboratory Results WBC 5.89 K/ul (4.8-10.8) 04/06/22 07:30 RBC 3.10 M/uL (3.93-5.22) L 04/06/22 07:30 Hgb 9.4 g/dl (12.0-16.0) L 04/06/22 07:30 Hct 29.0 % (34.1-44.9) L 04/06/22 07:30 MCV 93.5 fL (80.0-100.0) 04/06/22 07:30 MCH 30.3 pg (25.0-34.0) 04/06/22 07:30 MCHC 32.4 g/dL (32.0-36.0) 04/06/22 07:30 RDW Std Deviation 57.0 fL (36.4-46.3) H 04/06/22 07:30 RDW Coeff of [place] 16.6 % (11.5-14.5) H 04/06/22 07:30 Plt Count 296 K/uL (130-400) 04/06/22 07:30 MPV 9.9 fL (9.4-12.3) 04/06/22 07:30 Immature Gran % (Auto) 0.3 % 04/02/22 17:00 Neut % (Auto) 90.3 % 04/02/22 17:00 Lymph % (Auto) 2.8 % 04/02/22 17:00 [place] % (Auto) 6.5 % 04/02/22 17:00 Eos % (Auto) 0.0 % 04/02/22 17:00 Baso % (Auto) 0.1 % 04/02/22 17:00 Neut # (Auto) 10.42 K/uL (1.4-6.5) H 04/02/22 17:00 Lymph # (Auto) 0.32 K/uL (1.2-3.4) L 04/02/22 17:00 [place] # (Auto) 0.75 K/uL (0.24-0.82) 04/02/22 17:00 Eos # (Auto) 0.00 K/uL (0-0.50) 04/02/22 17:00 Baso # (Auto) 0.01 K/uL (0-0.2) 04/02/22 17:00 Immature Gran # (Auto) 0.04 K/uL (0.00-0.02) H 04/02/22 17:00 Ovalocytes 1+ 04/02/22 17:00 Echinocytes 1+ 04/02/22 17:00 PT 14.6 Seconds (9.0-12.0) H 04/06/22 06:18 INR 1.4 (0.9-1.1) H 04/06/22 06:18 APTT 46.8 Seconds (21.0-31.0) H* 04/02/22 17:00 PTT Ratio 1.7 04/02/22 17:00 Sodium 135 mmol/L (136-145) L 04/06/22 07:30 Potassium 3.8 mmol/L (3.5-5.1) 04/06/22 07:30 Chloride 109 mmol/L (98-107) H 04/06/22 07:30 Carbon Dioxide 19 mmol/L (21-32) L 04/06/22 07:30 Anion Gap 7 (3-11) 04/06/22 07:30 BUN 20 mg/dl (6-23) 04/06/22 07:30 Creatinine 0.93 mg/dl (0.6-1.2) 04/06/22 07:30 Est Cr Clr Drug Dosing 50.7 ml/min 04/06/22 07:30 Est GFR ( Amer) 71.2 ml/min 04/06/22 07:30 Est GFR (Non-Af Amer) 61.4 ml/min 04/06/22 07:30 BUN/Creatinine Ratio 21.5 (10-20) H 04/06/22 07:30 Glucose 98 mg/dl (70-99(Fasting)) 04/06/22 07:30 Calcium 8.7 mg/dl (8.5-10.1) 04/06/22 07:30 Magnesium 2.6 mg/dl (1.7-2.4) H 04/02/22 17:00 Iron 36 mcg/dl (35-150) 04/05/22 09:59 Transferrin 150 mg/dl (200-360) L 04/05/22 09:59 Ferritin 382.1 ng/ml (8-388) 04/05/22 09:59 Total Creatine Kinase 112 U/L (26-192) 04/03/22 07:39 Troponin I High Sens 82.9 pg/ml (0-14) H* D 04/03/22 07:39 Vitamin B12 1341 pg/ml (180-914) H 04/05/22 09:59 Folate 8.60 ng/ml (>5.38) 04/05/22 09:59 Urine Color Yellow 04/03/22 Unknown Urine Appearance Cloudy (Clear) A 04/03/22 Unknown Urine pH 5.0 (4.5-7.5) 04/03/22 Unknown Ur Specific [place] 1.019 (1.000-1.030) 04/03/22 Unknown Urine Protein 1+ (Negative) H 04/03/22 Unknown Urine Glucose (UA) Negative (Negative) 04/03/22 Unknown Urine Ketones Trace (Negative) H 04/03/22 Unknown Urine Blood 3+ (Negative) H 04/03/22 Unknown Urine Nitrite Negative (Negative) 04/03/22 Unknown Urine Bilirubin Negative (Negative) 04/03/22 Unknown Urine Urobilinogen Negative (Negative) 04/03/22 Unknown Ur Leukocyte Esterase 2+ (Negative) H 04/03/22 Unknown Urine WBC (Auto) >30 /hpf (0-5) H 04/03/22 Unknown Urine RBC (Auto) 10-30 /hpf (0-4) H 04/03/22 Unknown U Hyaline Cast (Auto) 5-10 /lpf (0-5) H 04/03/22 Unknown U Epithel Cells (Auto) >30 /lpf (0-5) H 04/03/22 Unknown Urine Bacteria (Auto) 4+ (Negative) H 04/03/22 Unknown Urine Yeast Not Reportable 04/03/22 Unknown SARS-CoV-2, RNA, NAAT NEGATIVE (NEGATIVE) 04/02/22 17:30 Impressions Chest X-Ray 04/02/22 16:03 XR chest 1V portable CLINICAL HISTORY: weakness TECHNIQUE: Single frontal radiograph of the chest was obtained. Comparison: Comparison is made to chest radiograph 03/16/2022 FINDINGS: No lines and tubes are seen. Cardiomegaly is noted. The lungs are clear. No evidence of pleural effusion or pneumothorax. Degenerative changes are seen in the bilateral shoulders. IMPRESSION: Cardiomegaly without evidence of acute abnormality. ACT 112: Negative or not required by law. Electronically signed by: Luis Felipe Luna M.D. 04/02/2022 4:37 PM Shoulder X-Ray 04/02/22 16:03 RIGHT SHOULDER 3 VIEWS CLINICAL HISTORY: Right shoulder pain. FINDINGS: 3 views of the right shoulder are compared to study dated 03/17/2022. The skeletal structures are osteopenic. There is no radiographic evidence of acute fracture or dislocation. Degenerative change is seen at the glenohumeral and acromioclavicular joints. Sclerotic change is noted in the greater tuberosity of the humeral head. The overlying soft tissues are normal as imaged. The right lung parenchyma is clear as visualized. IMPRESSION: No acute bony abnormality is identified. Electronically signed by: Julian Sibley M.D. 04/02/2022 4:23 PM Vascular Ultrasound 04/05/22 11:40 BILATERAL LOWER LEG ULTRASOUND TO ASSESS FOR HEMATOMA CLINICAL HISTORY: B/L leg swelling, anemia, Rule out hematoma COMPARISON STUDY: Bilateral lower extremity venous Doppler ultrasound January 10, 2022. TECHNIQUE: Sonography of the bilateral lower legs was performed to assess for hematoma. FINDINGS: No fluid collection was identified within the lower legs to suggest hematoma by sonography. Bilateral calf edema, a nonspecific finding, was noted. IMPRESSION: 1. No lower leg fluid collection to suggest hematoma. 2. Bilateral calf edema. ACT 112: Negative or not required by law. Electronically signed by: Norris Blackburn M.D. 04/05/2022 2:32 PM Medications Administered Current Inpatient Medications Acetaminophen (Acetaminophen 325 Mg Tab) 650 mg PO Q6H PRN PRN Reason: Fever/pain Stop: 05/03/22 00:39 Last Admin: 04/06/22 06:31 Dose: 650 mg Albuterol (Albuterol Hfa 8 Gm Inhaler) 2 puffs INH Q6 PRN PRN Reason: Shortness Of Breath Or Wheezin Stop: 05/02/22 21:32 Albuterol (Albut/Ipratrop 3mg/0.5mg Neb 3 Ml Vial) 3 ml INH QIDR PRN; Protocol PRN Reason: Shortness Of Breath Or Wheezing Stop: 05/02/22 21:32 Atorvastatin Calcium (Atorvastatin 20 Mg Tab) 20 mg PO QAM ASHUTOSH Stop: 05/03/22 08:59 Last Admin: 04/06/22 08:52 Dose: 20 mg Benzocaine (Benzocaine 20% (Orajel) 11.9 Gm Tube) 1 appln MT TID PRN PRN Reason: oral ulcer pain Stop: 05/04/22 13:02 Last Admin: 04/05/22 21:27 Dose: 1 appln Carbidopa/Levodopa (Carbidopa/Levodopa 25/100mg Tab) 1 tab PO QID ASHUTOSH Stop: 05/02/22 21:32 Last Admin: 04/06/22 12:41 Dose: 1 tab Fish Oil ([place]-3 (Purified Fish Oil) 1 Gm Cap) 1 gm PO DAILY ASHUTOSH Stop: 05/03/22 08:59 Last Admin: 04/06/22 10:25 Dose: 1 gm Fluticasone/Vilanterol (Fluticasone/Vilanterol 100/25mcg 14 Puffs/Inhaler) 1 puffs INH DAILY ASHUTOSH Stop: 05/03/22 08:59 Last Admin: 04/06/22 08:54 Dose: 1 puffs Furosemide (Furosemide 40 Mg Tab) 40 mg PO QAM ASHUTOSH Stop: 05/05/22 09:59 Last Admin: 04/06/22 08:51 Dose: 40 mg Ceftriaxone Sodium 1,000 mg/ (Dextrose) 60 mls @ 100 mls/hr IV Q24H [facility]; Protocol Stop: 04/08/22 09:14 Last Infusion: 04/06/22 10:23 Dose: Infused Ipratropium [place] (Ipratropium [place] Nasal [place] 0.06% 15ml) 1 sprays ELYSE QID [facility] Stop: 05/02/22 21:32 Last Admin: 04/06/22 13:29 Dose: 1 sprays Lactobacillus Acidophilus (Advanced Probiotic 1250 Mg Capsule) 2 cap PO DAILY ASHUTOSH Stop: 05/03/22 08:59 Last Admin: 04/06/22 08:52 Dose: 2 cap Levothyroxine Sodium (Levothyroxine Sodium 50 Mcg Tablet) [facility]: 05/03/22 06:29 Last Admin: 04/06/22 06:19 Dose: 50 mcg Linaclotide (Linaclotide 145 Mcg Capsule) 290 mcg PO DAILY [facility] Stop: 05/03/22 08:59 Last Admin: 04/06/22 08:51 Dose: 290 mcg Metaxalone (Metaxalone 800 Mg Tablet) 400 mg PO TID [facility] Stop: 05/06/22 13:59 Last Admin: 04/06/22 13:29 Dose: 400 mg Metoprolol Tartrate (Metoprolol Tartrate 25 Mg Tab) 12.5 mg PO DAILY [facility] Stop: 05/03/22 08:59 Last Admin: 04/06/22 08:50 Dose: 12.5 mg Miscellaneous (Buprenorphine 15 Mcg/Hour Patch Weekly - Order Awaiting Action) 1 each N/A QS [facility] Stop: 05/03/22 08:59 Last Admin: 04/06/22 15:15 Dose: Not Given Miscellaneous (Cromolyn 4% Drops: Order Awaiting Action) 1 each N/A QS [facility] Stop: 05/03/22 07:59 Last Admin: 04/06/22 15:15 Dose: Not Given Montelukast Sodium (Montelukast Sodium 10 Mg Tablet) 10 mg PO HS [facility] Stop: 05/02/22 21:32 Last Admin: 04/05/22 21:24 Dose: 10 mg Multivitamins/Minerals (Cerovite Adv Formula Tab) 1 tab PO DAILY ASHUTOSH Stop: 05/03/22 08:59 Last Admin: 04/06/22 08:51 Dose: 1 tab Oxycodone/Acetaminophen (Oxycodone/Acetaminophen 5mg/325mg Tab) 1 tab PO Q8H PRN PRN Reason: Pain Stop: 04/17/22 08:06 Last Admin: 04/06/22 15:31 Dose: 1 tab Pantoprazole Sodium (Pantoprazole 40 Mg Tab) 40 mg PO DAILY ASHUTOSH Stop: 05/03/22 08:59 Last Admin: 04/06/22 08:51 Dose: 40 mg Potassium Chloride (Potassium Chloride Pwd 20 Meq Pack) 20 meq PO BID ASHUTOSH Stop: 05/02/22 21:32 Last Admin: 04/06/22 08:53 Dose: 20 meq Ropinirole HCl (Ropinirole Hcl 1 Mg Tablet) 1 mg PO TID@0800,1200,1600 A[facility] Stop: 05/03/22 07:59 Last Admin: 04/06/22 13:29 Dose: 1 mg Ropinirole HCl (Ropinirole Hcl 1 Mg Tablet) 2 mg PO HS A[facility]UTOS[facility] Stop: 05/02/22 21:32 Last Admin: 04/05/22 21:24 Dose: 2 mg Thiamine HCl (Thiamine Hcl 100 Mg Tab) 100 mg PO BID A[facility]OS[facility] Stop: 05/02/22 21:32 Last Admin: 04/06/22 08:52 Dose: 100 mg Warfarin Sodium (Warfarin Sod 2.5 Mg Tab) 2.5 mg PO DAILY@1600 [facility] Stop: 05/03/22 15:59 Last Admin: 04/05/22 16:06 Dose: 2.5 mg
[2022-04-06] MEDS: WARFARIN SOD 2.5 MG TAB PO SCH (16:23)
[2022-04-06] MEDS: MONTELUKAST SODIUM 10 MG TABLET PO SCH (21:56)
[2022-04-07] MEDS: oxyCODONE/ACETAMINOPHEN 5mg/325mg TAB PO PRN ×3 (01:12→21:42)
[2022-04-07] MEDS: LEVOTHYROXINE SODIUM 50 MCG TABLET PO SCH (06:07)
[2022-04-07 06:42] LABS: INR 1.5 (0.9-1.1); Prothrombin Time 15.5 Seconds (9.0-12.0)
[2022-04-07] MEDS: rOPINIRole HCL 1 MG TABLET PO SCH ×4 (08:11→21:32)
[2022-04-07] MEDS: LINACLOTIDE 145 MCG CAPSULE PO SCH ×2 (08:12→08:18)
[2022-04-07] MEDS: ATORVASTATIN 20 MG TAB PO SCH (08:13)
[2022-04-07] MEDS: ADVANCED PROBIOTIC 1250 MG CAPSULE PO SCH (08:14)
[2022-04-07] MEDS: CEROVITE ADV FORMULA TAB PO SCH (08:16)
[2022-04-07] MEDS: PANTOprazole 40 MG TAB PO SCH (08:17)
[2022-04-07] MEDS: FUROSEMIDE 40 MG TAB PO SCH (08:17)
[2022-04-07] MEDS: METOPROLOL TARTRATE 25 MG TAB PO SCH (08:17)
[2022-04-07] MEDS: OMEGA-3 (PURIFIED FISH OIL) 1 GM CAP PO SCH (08:18)
[2022-04-07] MEDS: CARBIDOPA/LEVODOPA 25/100MG TAB PO SCH ×4 (08:19→21:33)
[2022-04-07] MEDS: POTASSIUM CHLORIDE PWD 20 MEQ PACK PO SCH ×2 (08:19→21:35)
[2022-04-07] MEDS: METAXALONE 800 MG TABLET PO SCH ×3 (08:19→21:33)
[2022-04-07] MEDS: THIAMINE HCL 100 MG TAB PO SCH ×2 (08:21→21:31)
[2022-04-07] MEDS: IPRATROPIUM BROMIDE NASAL SPRAY 0.06% 15ML NAE SCH ×4 (08:22→21:47)
[2022-04-07] MEDS: FLUTICASONE/VILANTEROL 100/25MCG 14 PUFFS/INHALER INH SCH (08:22)
[2022-04-07] MEDS: ACETAMINOPHEN 325 MG TAB PO PRN (08:30)
[2022-04-07] MEDS: cefTRIAXone SODIUM 1,000 MG in DEXTROSE 5% 50 ML IV SCH ×2 (08:31→09:56)
--- NOTE | 2022-04-07 12:24 | Hospitalist Progress Note ---
Date of Service April 07, 2022 Assessment & Plan (1) Weakness: (2) Ambulatory dysfunction: Plan: Patient was brought to the ER for ambulatory dysfunction and weakness after Adult Protective Services found her sitting in a chair and able to care for herself. Ambulatory dysfunction Generalized weakness H/O R rotator cuff tear --plan for surgery as outpatient Shoulder Xray showed no acute bony abnormality is identified. fall precautions Continue PT/OT eval Will need placement - pending SNF placement [facility]EL Due to dehydration from poor intake Cr 1.8>>>1.3>1.04>0.94 Held diuretics--resume as able Avoid nephrotoxic agents as able Monitor renal function Monitor volume status IV fluids discontinued 04/04 Restarted on Lasix 04/05/2022 UTI-POA H/O multiple UTIs in the past Urine culture growing Klebsiella pneumonia Continue Rocephin Day #5/ today 04/07/2022 Hypokalemia Replace electrolytes as needed Chronic elevated troponin Possible related to elevate CK level Troponin 81 on admission Echo 02/08/2022: Mild LVH, EF: 60-65%, mild aortic regurgitation Continue metoprolol and plavix Denies any chest pain Continue monitor Supratherapeutic INR No bleeding issues Resume Coumadin 04/05/2022 - daily INR while inpatient Chronic diastolic heart failure: Lasix initially held due to JAEL Monitor volume status Resume lasix 04/05/2022 Monitor renal function, electrolytes Parkinson's: Continue carbidopa levodopa HTN: Continue metoprolol succinate HLD: Continue statin Hypothyroidism: Continue levothyroxine Chronic pain: Continue home meds RLS: Continue ropinirole Chronic anemia: monitor CBC Hgb stable Anemia work up indicating AOC No obvious source of bleeding Monitor Asthma: No signs acute exacerbation Continue home inhalers History gastric bypass History GERD: Continue PPI H/O Edenilson-Danlos syndrome stable DVT Px: Coumadin Code Status Full code Admission and Anticipated Discharge Date Admission Date: April 02, 2022 Subjective Patient is seen and examined at bedside Has chronic generalized pain but is ok this morning. mostly complains of right shoulder pain of known rotator cuff tear Denies any chest pain, shortness of breath, dizziness, nausea, abdominal pain Review of Systems Review of Systems: All systems reviewed & are unremarkable except as noted in Subjective Physical Exam Physical Exam: General Appearance:Moderately built and nourished, no apparent distress, Elderly Head: normocephalic, Atraumatic Eyes: normal inspection, EOMI Neck: supple, Trachea midline Respiratory/Chest: Decreased breath sounds, CTA, No accessory muscle use Cardiovascular: S1, S2, + murmur Abdomen/GI:Soft, Non tender, Bowel sounds present Extremities/Musculoskeletal:normal inspection, + B/L LE edema, R shoulder decreased ROM Neurologic/Psych:AAOX3, grossly no focal neurological deficits Skin: normal color, warm, RLE wounds Results & Data Results & Data ([facility]) Vital Signs (Past 12 Hours) Vital Signs Temp Pulse Resp BP Pulse Ox O2 Del Method 04/07/22 11:14 36.5 C 67 20 91/57 L 98 Room Air 04/07/22 07:54 36.7 C 82 16 112/76 98 Room Air 04/07/22 03:59 36.6 C 85 18 106/67 98 Room Air Diagnostic Findings Laboratory Results WBC 5.89 K/ul (4.8-10.8) 04/06/22 07:30 RBC 3.10 M/uL (3.93-5.22) L 04/06/22 07:30 Hgb 9.4 g/dl (12.0-16.0) L 04/06/22 07:30 Hct 29.0 % (34.1-44.9) L 04/06/22 07:30 MCV 93.5 fL (80.0-100.0) 04/06/22 07:30 MCH 30.3 pg (25.0-34.0) 04/06/22 07:30 MCHC 32.4 g/dL (32.0-36.0) 04/06/22 07:30 RDW Std Deviation 57.0 fL (36.4-46.3) H 04/06/22 07:30 RDW Coeff of Neftaly 16.6 % (11.5-14.5) H 04/06/22 07:30 Plt Count 296 K/uL (130-400) 04/06/22 07:30 MPV 9.9 fL (9.4-12.3) 04/06/22 07:30 Immature Gran % (Auto) 0.3 % 04/02/22 17:00 Neut % (Auto) 90.3 % 04/02/22 17:00 Lymph % (Auto) 2.8 % 04/02/22 17:00 [place] % (Auto) 6.5 % 04/02/22 17:00 Eos % (Auto) 0.0 % 04/02/22 17:00 Baso % (Auto) 0.1 % 04/02/22 17:00 Neut # (Auto) 10.42 K/uL (1.4-6.5) H 04/02/22 17:00 Lymph # (Auto) 0.32 K/uL (1.2-3.4) L 04/02/22 17:00 [place] # (Auto) 0.75 K/uL (0.24-0.82) 04/02/22 17:00 Eos # (Auto) 0.00 K/uL (0-0.50) 04/02/22 17:00 Baso # (Auto) 0.01 K/uL (0-0.2) 04/02/22 17:00 Immature Gran # (Auto) 0.04 K/uL (0.00-0.02) H 04/02/22 17:00 Ovalocytes 1+ 04/02/22 17:00 Echinocytes 1+ 04/02/22 17:00 PT 15.5 Seconds (9.0-12.0) H 04/07/22 05:59 INR 1.5 (0.9-1.1) H 04/07/22 05:59 APTT 46.8 Seconds (21.0-31.0) H* 04/02/22 17:00 PTT Ratio 1.7 04/02/22 17:00 Sodium 135 mmol/L (136-145) L 04/06/22 07:30 Potassium 3.8 mmol/L (3.5-5.1) 04/06/22 07:30 Chloride 109 mmol/L (98-107) H 04/06/22 07:30 Carbon Dioxide 19 mmol/L (21-32) L 04/06/22 07:30 Anion Gap 7 (3-11) 04/06/22 07:30 BUN 20 mg/dl (6-23) 04/06/22 07:30 Creatinine 0.93 mg/dl (0.6-1.2) 04/06/22 07:30 Est Cr Clr Drug Dosing 50.7 ml/min 04/06/22 07:30 Est GFR ( Amer) 71.2 ml/min 04/06/22 07:30 Est GFR (Non-Af Amer) 61.4 ml/min 04/06/22 07:30 BUN/Creatinine Ratio 21.5 (10-20) H 04/06/22 07:30 Glucose 98 mg/dl (70-99(Fasting)) 04/06/22 07:30 Calcium 8.7 mg/dl (8.5-10.1) 04/06/22 07:30 Magnesium 2.6 mg/dl (1.7-2.4) H 04/02/22 17:00 Iron 36 mcg/dl (35-150) 04/05/22 09:59 Transferrin 150 mg/dl (200-360) L 04/05/22 09:59 Ferritin 382.1 ng/ml (8-388) 04/05/22 09:59 Total Creatine Kinase 112 U/L (26-192) 04/03/22 07:39 Troponin I High Sens 82.9 pg/ml (0-14) H* D 04/03/22 07:39 Vitamin B12 1341 pg/ml (180-914) H 04/05/22 09:59 Folate 8.60 ng/ml (>5.38) 04/05/22 09:59 Urine Color Yellow 04/03/22 Unknown Urine Appearance Cloudy (Clear) A 04/03/22 Unknown Urine pH 5.0 (4.5-7.5) 04/03/22 Unknown Ur Specific [place] 1.019 (1.000-1.030) 04/03/22 Unknown Urine Protein 1+ (Negative) H 04/03/22 Unknown Urine Glucose (UA) Negative (Negative) 04/03/22 Unknown Urine Ketones Trace (Negative) H 04/03/22 Unknown Urine Blood 3+ (Negative) H 04/03/22 Unknown Urine Nitrite Negative (Negative) 04/03/22 Unknown Urine Bilirubin Negative (Negative) 04/03/22 Unknown Urine Urobilinogen Negative (Negative) 04/03/22 Unknown Ur Leukocyte Esterase 2+ (Negative) H 04/03/22 Unknown Urine WBC (Auto) >30 /hpf (0-5) H 04/03/22 Unknown Urine RBC (Auto) 10-30 /hpf (0-4) H 04/03/22 Unknown U Hyaline Cast (Auto) 5-10 /lpf (0-5) H 04/03/22 Unknown U Epithel Cells (Auto) >30 /lpf (0-5) H 04/03/22 Unknown Urine Bacteria (Auto) 4+ (Negative) H 04/03/22 Unknown Urine Yeast Not Reportable 04/03/22 Unknown Stool Occult Bld Scrn Negative (Negative) 04/07/22 07:50 SARS-CoV-2, RNA, NAAT NEGATIVE (NEGATIVE) 04/02/22 17:30 Impressions Chest X-Ray 04/02/22 16:03 XR chest 1V portable CLINICAL HISTORY: weakness TECHNIQUE: Single frontal radiograph of the chest was obtained. Comparison: Comparison is made to chest radiograph 03/16/2022 FINDINGS: No lines and tubes are seen. Cardiomegaly is noted. The lungs are clear. No evidence of pleural effusion or pneumothorax. Degenerative changes are seen in the bilateral shoulders. IMPRESSION: Cardiomegaly without evidence of acute abnormality. ACT 112: Negative or not required by law. Electronically signed by: Luis Felipe Luna M.D. 04/02/2022 4:37 PM Shoulder X-Ray 04/02/22 16:03 RIGHT SHOULDER 3 VIEWS CLINICAL HISTORY: Right shoulder pain. FINDINGS: 3 views of the right shoulder are compared to study dated 03/17/2022. The skeletal structures are osteopenic. There is no radiographic evidence of acute fracture or dislocation. Degenerative change is seen at the glenohumeral and acromioclavicular joints. Sclerotic change is noted in the greater tuberosity of the humeral head. The overlying soft tissues are normal as imaged. The right lung parenchyma is clear as visualized. IMPRESSION: No acute bony abnormality is identified. Electronically signed by: Julian Sibley M.D. 04/02/2022 4:23 PM Vascular Ultrasound 04/05/22 11:40 BILATERAL LOWER LEG ULTRASOUND TO ASSESS FOR HEMATOMA CLINICAL HISTORY: B/L leg swelling, anemia, Rule out hematoma COMPARISON STUDY: Bilateral lower extremity venous Doppler ultrasound January 10, 2022. TECHNIQUE: Sonography of the bilateral lower legs was performed to assess for hematoma. FINDINGS: No fluid collection was identified within the lower legs to suggest hematoma by sonography. Bilateral calf edema, a nonspecific finding, was noted. IMPRESSION: 1. No lower leg fluid collection to suggest hematoma. 2. Bilateral calf edema. ACT 112: Negative or not required by law. Electronically signed by: Norris Blackburn M.D. 04/05/2022 2:32 PM
[2022-04-07] MEDS: BUPRENORPHINE TD SCH (16:07)
[2022-04-07] MEDS: CHECK BUPRENORPHINE PATCH SCH ×2 (16:07→23:06)
[2022-04-07] MEDS: WARFARIN SOD 2.5 MG TAB PO SCH (16:09)
[2022-04-07] MEDS: MONTELUKAST SODIUM 10 MG TABLET PO SCH (21:33)
[2022-04-08] MEDS: LEVOTHYROXINE SODIUM 50 MCG TABLET PO SCH (05:46)
[2022-04-08 06:35] LABS: Basophils # (auto) 0.03 K/uL (0-0.2); Basophils % (auto) 0.4 %; Eosinophils # (auto) 0.04 K/uL (0-0.50); Eosinophils % (auto) 0.6 %; Hematocrit (blood only) 25.2 % (34.1-44.9); Immature Granulocytes # (auto) 0.06 K/uL (0.00-0.02); Immature Granulocytes % (auto) 0.8 %; Lymphocytes # (auto) 0.68 K/uL (1.2-3.4); Lymphocytes % (auto) 9.6 %; Mean Corpuscular Hemoglobin 29.6 pg (25.0-34.0); Mean Corpuscular Hgb Conc 31.7 g/dL (32.0-36.0); Mean Corpuscular Volume 93.3 fL (80.0-100.0); Monocytes # (auto) 0.54 K/uL (0.24-0.82); Monocytes % (auto) 7.6 %; Neutrophils # (auto) 5.72 K/uL (1.4-6.5); Platelet Count 272 K/uL (130-400); RDW Coefficient of Variation 16.9 % (11.5-14.5); RDW Standard Deviation 57.3 fL (36.4-46.3); White Blood Count 7.07 K/ul (4.8-10.8)
[2022-04-08 07:00] LABS: Albumin Globulin Ratio 1.3 (0.9-2); Albumin Level 2.8 gm/dl (3.4-5.0); Bilirubin,Total 0.3 mg/dl (0.2-1.0); Calcium 8.2 mg/dl (8.5-10.1); Creatinine Clr Calc Pharmacy 63.5 ml/min; Est GFR (African American) 92.3 ml/min; Est GFR (Non-African American) 79.6 ml/min; Globulin 2.2 gm/dl (2.5-4.0); Magnesium 1.4 mg/dl (1.7-2.4); Phosphorus 2.5 mg/dl (2.5-4.9); Potassium 3.6 mmol/L (3.5-5.1)
[2022-04-08] MEDS ORDERED: MAGNESIUM SULFATE / D5W 1 GM/100 ML BAG IV ONE (07:11)
[2022-04-08] MEDS ORDERED: POTASSIUM CHLORIDE CRTAB 20 MEQ TABCR PO ONE (07:12)
[2022-04-08 07:24] LABS: INR 1.6 (0.9-1.1)
[2022-04-08] MEDS: FLUTICASONE/VILANTEROL 100/25MCG 14 PUFFS/INHALER INH SCH (07:34)
[2022-04-08] MEDS: IPRATROPIUM BROMIDE NASAL SPRAY 0.06% 15ML NAE SCH ×4 (07:34→21:07)
[2022-04-08] MEDS: POTASSIUM CHLORIDE PWD 20 MEQ PACK PO SCH ×2 (07:36→21:09)
[2022-04-08] MEDS: METAXALONE 800 MG TABLET PO SCH ×3 (07:36→21:08)
[2022-04-08] MEDS: ADVANCED PROBIOTIC 1250 MG CAPSULE PO SCH (07:36)
[2022-04-08] MEDS: rOPINIRole HCL 1 MG TABLET PO SCH ×4 (07:37→21:10)
[2022-04-08] MEDS: THIAMINE HCL 100 MG TAB PO SCH ×2 (07:37→21:10)
[2022-04-08] MEDS: CARBIDOPA/LEVODOPA 25/100MG TAB PO SCH ×4 (07:37→21:07)
[2022-04-08] MEDS: FUROSEMIDE 40 MG TAB PO SCH (07:38)
[2022-04-08] MEDS: CEROVITE ADV FORMULA TAB PO SCH (07:38)
[2022-04-08] MEDS: ATORVASTATIN 20 MG TAB PO SCH (07:38)
[2022-04-08] MEDS: OMEGA-3 (PURIFIED FISH OIL) 1 GM CAP PO SCH (07:38)
[2022-04-08] MEDS: METOPROLOL TARTRATE 25 MG TAB PO SCH (07:39)
[2022-04-08] MEDS: PANTOprazole 40 MG TAB PO SCH (07:40)
[2022-04-08] MEDS: CHECK BUPRENORPHINE PATCH SCH ×3 (07:40→23:38)
[2022-04-08] MEDS: oxyCODONE/ACETAMINOPHEN 5mg/325mg TAB PO PRN ×2 (07:55→21:20)
[2022-04-08] MEDS: MAGNESIUM OXIDE 400 MG TAB PO SCH ×3 (08:03→21:08)
[2022-04-08] MEDS ORDERED: FUROSEMIDE 40 MG/4 ML VIAL IV ONE (09:43)
--- NOTE | 2022-04-08 11:03 | Hospitalist Progress Note ---
Date of Service April 08, 2022 Assessment & Plan (1) Weakness: (2) Ambulatory dysfunction: Plan: Patient was brought to the ER for ambulatory dysfunction and weakness after Adult Protective Services found her sitting in a chair and able to care for herself. LE edema - seems to be worsening slightly with increased erythema - no signs of infection at this time and just finished course of abx - swelling and skin changes are chronic to some degree at baseline - will trial on IV lasix today - monitor UOP and Cr - monitor LE edema response Ambulatory dysfunction Generalized weakness H/O R rotator cuff tear --plan for surgery as outpatient Shoulder Xray showed no acute bony abnormality is identified. fall precautions Continue PT/OT eval Will need placement - pending SNF placement [facility] Due to dehydration from poor intake Cr 1.8>>>1.3>1.04>0.94 Held diuretics--resume as able Avoid nephrotoxic agents as able Monitor renal function Monitor volume status IV fluids discontinued 04/04 Restarted on Lasix 04/05/2022 - switched to IV lasix 04/08/2022 due to worsening LE edema UTI-POA H/O multiple UTIs in the past Urine culture growing Klebsiella pneumonia Rocephin - s/p 5 day course ended 04/07/2022 Hypokalemia Replace electrolytes as needed Chronic elevated troponin Possible related to elevate CK level Troponin 81 on admission Echo 02/08/2022: Mild LVH, EF: 60-65%, mild aortic regurgitation Continue metoprolol and plavix Denies any chest pain Continue monitor Hypercoagulable state - initially INR supratherapeutic on admission and coumadin was held - INR normalized - Resumed Coumadin 04/05/2022 - daily INR while inpatient - trending up - no signs of bleeding - FOBT negative 04/08/2022 - continue to monitor Chronic diastolic heart failure: Lasix initially held due to JAEL Monitor volume status Resume lasix 04/05/2022 - changed to IV 04/08/2022 for worsening LE edema - monitor UOP Monitor renal function, electrolytes Parkinson's: Continue carbidopa levodopa HTN: Continue metoprolol succinate HLD: Continue statin Hypothyroidism: Continue levothyroxine Chronic pain: Continue home meds RLS: Continue ropinirole Chronic anemia: monitor CBC Hgb stable Anemia work up indicating AOC No obvious source of bleeding - FOBT negative Monitor Asthma: No signs acute exacerbation Continue home inhalers History gastric bypass History GERD: Continue PPI H/O Edenilson-Danlos syndrome stable DVT Px: Coumadin Code Status Full code Admission and Anticipated Discharge Date Admission Date: April 02, 2022 Subjective Patient is seen and examined at bedside Has chronic generalized pain but is mostly concerned with her leg swelling and redness with some pain that is transient. Denies any chest pain, shortness of breath, dizziness, nausea, abdominal pain Review of Systems 2 Review of Systems: All systems reviewed & are unremarkable except as noted in Subjective Physical Exam Physical Exam: General Appearance:Moderately built and nourished, no apparent distress, Elderly Head: normocephalic, Atraumatic Eyes: normal inspection, EOMI Neck: supple, Trachea midline Respiratory/Chest: Decreased breath sounds, CTA, No accessory muscle use Cardiovascular: S1, S2, + murmur Abdomen/GI:Soft, Non tender, Bowel sounds present Extremities/Musculoskeletal:normal inspection, + B/L LE edema with erythema, R shoulder decreased ROM Neurologic/Psych:AAOX3, grossly no focal neurological deficits Skin: normal color, warm, RLE wounds Results & Data Results & Data ([facility]) Vital Signs (Past 12 Hours) Vital Signs Temp Pulse Resp BP Pulse Ox O2 Del Method 04/08/22 07:27 36.8 C 75 16 109/73 98 Room Air 04/08/22 03:11 36.6 C 89 18 96/67 L 98 Room Air 04/07/22 23:03 36.6 C 88 18 96/63 L 100 Room Air Diagnostic Findings Laboratory Results WBC 7.07 K/ul (4.8-10.8) 04/08/22 05:40 RBC 2.70 M/uL (3.93-5.22) L 04/08/22 05:40 Hgb 8.0 g/dl (12.0-16.0) L 04/08/22 05:40 Hct 25.2 % (34.1-44.9) L 04/08/22 05:40 MCV 93.3 fL (80.0-100.0) 04/08/22 05:40 MCH 29.6 pg (25.0-34.0) 04/08/22 05:40 MCHC 31.7 g/dL (32.0-36.0) L 04/08/22 05:40 RDW Std Deviation 57.3 fL (36.4-46.3) H 04/08/22 05:40 RDW Coeff of Neftaly 16.9 % (11.5-14.5) H 04/08/22 05:40 Plt Count 272 K/uL (130-400) 04/08/22 05:40 MPV 10.0 fL (9.4-12.3) 04/08/22 05:40 Immature Gran % (Auto) 0.8 % 04/08/22 05:40 Neut % (Auto) 81.0 % 04/08/22 05:40 Lymph % (Auto) 9.6 % 04/08/22 05:40 [place] % (Auto) 7.6 % 04/08/22 05:40 Eos % (Auto) 0.6 % 04/08/22 05:40 Baso % (Auto) 0.4 % 04/08/22 05:40 Neut # (Auto) 5.72 K/uL (1.4-6.5) 04/08/22 05:40 Lymph # (Auto) 0.68 K/uL (1.2-3.4) L 04/08/22 05:40 [place] # (Auto) 0.54 K/uL (0.24-0.82) 04/08/22 05:40 Eos # (Auto) 0.04 K/uL (0-0.50) 04/08/22 05:40 Baso # (Auto) 0.03 K/uL (0-0.2) 04/08/22 05:40 Immature Gran # (Auto) 0.06 K/uL (0.00-0.02) H 04/08/22 05:40 Ovalocytes 1+ 04/02/22 17:00 Echinocytes 1+ 04/02/22 17:00 PT 17.0 Seconds (9.0-12.0) H 04/08/22 05:40 INR 1.6 (0.9-1.1) H 04/08/22 05:40 APTT 46.8 Seconds (21.0-31.0) H* 04/02/22 17:00 PTT Ratio 1.7 04/02/22 17:00 Sodium 138 mmol/L (136-145) 04/08/22 05:40 Potassium 3.6 mmol/L (3.5-5.1) 04/08/22 05:40 Chloride 111 mmol/L (98-107) H 04/08/22 05:40 Carbon Dioxide 22 mmol/L (21-32) 04/08/22 05:40 Anion Gap 5 (3-11) 04/08/22 05:40 BUN 18 mg/dl (6-23) 04/08/22 05:40 Creatinine 0.75 mg/dl (0.6-1.2) 04/08/22 05:40 Est Cr Clr Drug Dosing 63.5 ml/min 04/08/22 05:40 Est GFR ( Amer) 92.3 ml/min 04/08/22 05:40 Est GFR (Non-Af Amer) 79.6 ml/min 04/08/22 05:40 BUN/Creatinine Ratio 24.0 (10-20) H 04/08/22 05:40 Glucose 99 mg/dl (70-99(Fasting)) 04/08/22 05:40 Calcium 8.2 mg/dl (8.5-10.1) L 04/08/22 05:40 Phosphorus 2.5 mg/dl (2.5-4.9) 04/08/22 05:40 Magnesium 1.4 mg/dl (1.7-2.4) L 04/08/22 05:40 Iron 36 mcg/dl (35-150) 04/05/22 09:59 Transferrin 150 mg/dl (200-360) L 04/05/22 09:59 Ferritin 382.1 ng/ml (8-388) 04/05/22 09:59 Total Bilirubin 0.3 mg/dl (0.2-1.0) 04/08/22 05:40 AST 13 U/L (13-39) 04/08/22 05:40 ALT 5 U/L (7-52) L 04/08/22 05:40 Alkaline Phosphatase 78 U/L (34-104) 04/08/22 05:40 Total Creatine Kinase 112 U/L (26-192) 04/03/22 07:39 Troponin I High Sens 82.9 pg/ml (0-14) H* D 04/03/22 07:39 Total Protein 5.0 gm/dl (6.0-8.3) L 04/08/22 05:40 Albumin 2.8 gm/dl (3.4-5.0) L 04/08/22 05:40 Globulin 2.2 gm/dl (2.5-4.0) L 04/08/22 05:40 Albumin/Globulin Ratio 1.3 (0.9-2) 04/08/22 05:40 Vitamin B12 1341 pg/ml (180-914) H 04/05/22 09:59 Folate 8.60 ng/ml (>5.38) 04/05/22 09:59 Urine Color Yellow 04/03/22 Unknown Urine Appearance Cloudy (Clear) A 04/03/22 Unknown Urine pH 5.0 (4.5-7.5) 04/03/22 Unknown Ur Specific [place] 1.019 (1.000-1.030) 04/03/22 Unknown Urine Protein 1+ (Negative) H 04/03/22 Unknown Urine Glucose (UA) Negative (Negative) 04/03/22 Unknown Urine Ketones Trace (Negative) H 04/03/22 Unknown Urine Blood 3+ (Negative) H 04/03/22 Unknown Urine Nitrite Negative (Negative) 04/03/22 Unknown Urine Bilirubin Negative (Negative) 04/03/22 Unknown Urine Urobilinogen Negative (Negative) 04/03/22 Unknown Ur Leukocyte Esterase 2+ (Negative) H 04/03/22 Unknown Urine WBC (Auto) >30 /hpf (0-5) H 04/03/22 Unknown Urine RBC (Auto) 10-30 /hpf (0-4) H 04/03/22 Unknown U Hyaline Cast (Auto) 5-10 /lpf (0-5) H 04/03/22 Unknown U Epithel Cells (Auto) >30 /lpf (0-5) H 04/03/22 Unknown Urine Bacteria (Auto) 4+ (Negative) H 04/03/22 Unknown Urine Yeast Not Reportable 04/03/22 Unknown Stool Occult Bld Scrn Negative (Negative) 04/07/22 07:50 SARS-CoV-2, RNA, NAAT NEGATIVE (NEGATIVE) 04/02/22 17:30 Impressions Chest X-Ray 04/02/22 16:03 XR chest 1V portable CLINICAL HISTORY: weakness TECHNIQUE: Single frontal radiograph of the chest was obtained. Comparison: Comparison is made to chest radiograph 03/16/2022 FINDINGS: No lines and tubes are seen. Cardiomegaly is noted. The lungs are clear. No evidence of pleural effusion or pneumothorax. Degenerative changes are seen in the bilateral shoulders. IMPRESSION: Cardiomegaly without evidence of acute abnormality. ACT 112: Negative or not required by law. Electronically signed by: Luis Felipe Luna M.D. 04/02/2022 4:37 PM Shoulder X-Ray 04/02/22 16:03 RIGHT SHOULDER 3 VIEWS CLINICAL HISTORY: Right shoulder pain. FINDINGS: 3 views of the right shoulder are compared to study dated 03/17/2022. The skeletal structures are osteopenic. There is no radiographic evidence of acute fracture or dislocation. Degenerative change is seen at the glenohumeral and acromioclavicular joints. Sclerotic change is noted in the greater tuberosity of the humeral head. The overlying soft tissues are normal as imaged. The right lung parenchyma is clear as visualized. IMPRESSION: No acute bony abnormality is identified. Electronically signed by: Julian Sibley M.D. 04/02/2022 4:23 PM Vascular Ultrasound 04/05/22 11:40 BILATERAL LOWER LEG ULTRASOUND TO ASSESS FOR HEMATOMA CLINICAL HISTORY: B/L leg swelling, anemia, Rule out hematoma COMPARISON STUDY: Bilateral lower extremity venous Doppler ultrasound January 10, 2022. TECHNIQUE: Sonography of the bilateral lower legs was performed to assess for hematoma. FINDINGS: No fluid collection was identified within the lower legs to suggest hematoma by sonography. Bilateral calf edema, a nonspecific finding, was noted. IMPRESSION: 1. No lower leg fluid collection to suggest hematoma. 2. Bilateral calf edema. ACT 112: Negative or not required by law. Electronically signed by: Norris Blackburn M.D. 04/05/2022 2:32 PM
[2022-04-08] MEDS: WARFARIN SOD 2.5 MG TAB PO SCH (15:24)
[2022-04-08] MEDS: MONTELUKAST SODIUM 10 MG TABLET PO SCH (21:09)
[2022-04-09] MEDS: LEVOTHYROXINE SODIUM 50 MCG TABLET PO SCH (04:57)
[2022-04-09 07:11] LABS: Basophils # (auto) 0.03 K/uL (0-0.2); Basophils % (auto) 0.5 %; Eosinophils # (auto) 0.06 K/uL (0-0.50); Eosinophils % (auto) 0.9 %; Hematocrit (blood only) 25.2 % (34.1-44.9); Immature Granulocytes # (auto) 0.06 K/uL (0.00-0.02); Immature Granulocytes % (auto) 0.9 %; Lymphocytes % (auto) 12.4 %; Mean Corpuscular Hemoglobin 30.4 pg (25.0-34.0); Mean Corpuscular Hgb Conc 31.7 g/dL (32.0-36.0); Mean Corpuscular Volume 95.8 fL (80.0-100.0); Mean Platelet Volume 9.8 fL (9.4-12.3); Monocytes # (auto) 0.47 K/uL (0.24-0.82); Monocytes % (auto) 7.3 %; Neutrophils # (auto) 5.03 K/uL (1.4-6.5); Platelet Count 272 K/uL (130-400); RDW Coefficient of Variation 17.2 % (11.5-14.5); RDW Standard Deviation 60.5 fL (36.4-46.3); Red Blood Count 2.63 M/uL (3.93-5.22); White Blood Count 6.45 K/ul (4.8-10.8)
[2022-04-09 07:27] LABS: INR 1.4 (0.9-1.1); Prothrombin Time 14.8 Seconds (9.0-12.0)
[2022-04-09 07:35] LABS: BUN Creatinine Ratio 25.3 (10-20); Calcium 8.3 mg/dl (8.5-10.1); Est GFR (African American) 86.7 ml/min; Est GFR (Non-African American) 74.8 ml/min; Magnesium 1.5 mg/dl (1.7-2.4); Phosphorus 2.6 mg/dl (2.5-4.9); Potassium 3.5 mmol/L (3.5-5.1)
[2022-04-09] MEDS: rOPINIRole HCL 1 MG TABLET PO SCH ×4 (07:38→21:34)
[2022-04-09] MEDS: oxyCODONE/ACETAMINOPHEN 5mg/325mg TAB PO PRN ×2 (07:38→17:32)
[2022-04-09] MEDS: CHECK BUPRENORPHINE PATCH SCH ×3 (07:38→23:58)
[2022-04-09] MEDS ORDERED: POTASSIUM CHLORIDE CRTAB 20 MEQ TABCR PO STA (07:41)
[2022-04-09] MEDS ORDERED: MAGNESIUM SULFATE / D5W 1 GM/100 ML BAG IV ONE (08:00)
[2022-04-09] MEDS: METAXALONE 800 MG TABLET PO SCH ×3 (08:16→21:32)
[2022-04-09] MEDS: MAGNESIUM OXIDE 400 MG TAB PO SCH ×3 (08:16→21:32)
[2022-04-09] MEDS: CARBIDOPA/LEVODOPA 25/100MG TAB PO SCH ×4 (08:16→21:31)
[2022-04-09] MEDS: POTASSIUM CHLORIDE PWD 20 MEQ PACK PO SCH ×2 (08:17→21:34)
[2022-04-09] MEDS: CEROVITE ADV FORMULA TAB PO SCH (08:17)
[2022-04-09] MEDS: THIAMINE HCL 100 MG TAB PO SCH ×2 (08:17→21:35)
[2022-04-09] MEDS: LINACLOTIDE 145 MCG CAPSULE PO SCH (08:18)
[2022-04-09] MEDS: METOPROLOL TARTRATE 25 MG TAB PO SCH (08:18)
[2022-04-09] MEDS: OMEGA-3 (PURIFIED FISH OIL) 1 GM CAP PO SCH (08:18)
[2022-04-09] MEDS: ATORVASTATIN 20 MG TAB PO SCH (08:18)
[2022-04-09] MEDS: PANTOprazole 40 MG TAB PO SCH (08:18)
[2022-04-09] MEDS: IPRATROPIUM BROMIDE NASAL SPRAY 0.06% 15ML NAE SCH ×4 (08:19→21:32)
[2022-04-09] MEDS: ADVANCED PROBIOTIC 1250 MG CAPSULE PO SCH (08:19)
[2022-04-09] MEDS: FLUTICASONE/VILANTEROL 100/25MCG 14 PUFFS/INHALER INH SCH (08:19)
[2022-04-09] MEDS ORDERED: FUROSEMIDE 40 MG/4 ML VIAL IV ONE ×2 (10:30→18:00)
--- NOTE | 2022-04-09 12:07 | Hospitalist Progress Note ---
Date of Service April 09, 2022 Assessment & Plan (1) Weakness: (2) Ambulatory dysfunction: Plan: Patient was brought to the ER for ambulatory dysfunction and weakness after Adult Protective Services found her sitting in a chair and able to care for herself. LE edema - seems to be worsening slightly with increased erythema - no signs of infection at this time and just finished course of abx - swelling and skin changes are chronic to some degree at baseline - will trial on IV lasix - continue lasix today - monitor UOP and Cr - monitor LE edema response Ambulatory dysfunction Generalized weakness H/O R rotator cuff tear --plan for surgery as outpatient Shoulder Xray showed no acute bony abnormality is identified. fall precautions Continue PT/OT eval Will need placement - pending SNF placement JAEL Due to dehydration from poor intake Cr 1.8>>>1.3>1.04>0.94 Held diuretics--resume as able Avoid nephrotoxic agents as able Monitor renal function Monitor volume status IV fluids discontinued 04/04 Restarted on Lasix 04/05/2022 - switched to IV lasix 04/08/2022 due to worsening LE edema - continue for now (04/09/2022) UTI-POA H/O multiple UTIs in the past Urine culture growing Klebsiella pneumonia Rocephin - s/p 5 day course ended 04/07/2022 Hypokalemia Replace electrolytes as needed Chronic elevated troponin Possible related to elevate CK level Troponin 81 on admission Echo 02/08/2022: Mild LVH, EF: 60-65%, mild aortic regurgitation Continue metoprolol and plavix Denies any chest pain Continue monitor Hypercoagulable state - initially INR supratherapeutic on admission and coumadin was held - INR normalized - Resumed Coumadin 04/05/2022 - daily INR while inpatient - trending up - no signs of bleeding - FOBT negative 04/08/2022 - continue to monitor Chronic diastolic heart failure: Lasix initially held due to JAEL Monitor volume status Resume lasix 04/05/2022 - changed to IV 04/08/2022 for worsening LE edema - monitor UOP Monitor renal function, electrolytes Parkinson's: Continue carbidopa levodopa HTN: Continue metoprolol succinate HLD: Continue statin Hypothyroidism: Continue levothyroxine Chronic pain: Continue home meds RLS: Continue ropinirole Chronic anemia: monitor CBC Hgb stable Anemia work up indicating AOC No obvious source of bleeding - FOBT negative Monitor Asthma: No signs acute exacerbation Continue home inhalers History gastric bypass History GERD: Continue PPI H/O Edenilson-Danlos syndrome stable DVT Px: Coumadin Code Status Full code Admission and Anticipated Discharge Date Admission Date: April 02, 2022 Subjective Patient is seen and examined at bedside Has chronic generalized pain but is mostly concerned with her leg swelling and redness with some pain that is transient - noticed some improvement but still swollen and painful at times Denies any chest pain, shortness of breath, dizziness, nausea, abdominal pain Review of Systems Review of Systems: All systems reviewed & are unremarkable except as noted in Subjective Physical Exam Physical Exam: General Appearance:Moderately built and nourished, no apparent distress, Elderly Head: normocephalic, Atraumatic Eyes: normal inspection, EOMI Neck: supple, Trachea midline Respiratory/Chest: Decreased breath sounds, CTA, No accessory muscle use Cardiovascular: S1, S2, + murmur Abdomen/GI:Soft, Non tender, Bowel sounds present Extremities/Musculoskeletal:normal inspection, + B/L LE edema with erythema, R shoulder decreased ROM Neurologic/Psych:AAOX3, grossly no focal neurological deficits Skin: normal color, warm, RLE wounds Results & Data Results & Data ([facility]) Vital Signs (Past 12 Hours) Vital Signs Temp Pulse Pulse Resp BP Pulse Ox O2 Del Method 04/09/22 11:00 36.4 C L 67 20 108/76 94 Room Air 04/09/22 08:00 88 04/09/22 07:00 36.7 C 88 20 101/68 99 04/09/22 03:18 36.9 C 81 18 94/59 L 99 Room Air Diagnostic Findings Laboratory Results WBC 6.45 K/ul (4.8-10.8) 04/09/22 05:33 RBC 2.63 M/uL (3.93-5.22) L 04/09/22 05:33 Hgb 8.0 g/dl (12.0-16.0) L 04/09/22 05:33 Hct 25.2 % (34.1-44.9) L 04/09/22 05:33 MCV 95.8 fL (80.0-100.0) 04/09/22 05:33 MCH 30.4 pg (25.0-34.0) 04/09/22 05:33 MCHC 31.7 g/dL (32.0-36.0) L 04/09/22 05:33 RDW Std Deviation 60.5 fL (36.4-46.3) H 04/09/22 05:33 RDW Coeff of [place] 17.2 % (11.5-14.5) H 04/09/22 05:33 Plt Count 272 K/uL (130-400) 04/09/22 05:33 MPV 9.8 fL (9.4-12.3) 04/09/22 05:33 Immature Gran % (Auto) 0.9 % 04/09/22 05:33 Neut % (Auto) 78.0 % 04/09/22 05:33 Lymph % (Auto) 12.4 % 04/09/22 05:33 [place] % (Auto) 7.3 % 04/09/22 05:33 Eos % (Auto) 0.9 % 04/09/22 05:33 Baso % (Auto) 0.5 % 04/09/22 05:33 Neut # (Auto) 5.03 K/uL (1.4-6.5) 04/09/22 05:33 Lymph # (Auto) 0.80 K/uL (1.2-3.4) L 04/09/22 05:33 [place] # (Auto) 0.47 K/uL (0.24-0.82) 04/09/22 05:33 Eos # (Auto) 0.06 K/uL (0-0.50) 04/09/22 05:33 Baso # (Auto) 0.03 K/uL (0-0.2) 04/09/22 05:33 Immature Gran # (Auto) 0.06 K/uL (0.00-0.02) H 04/09/22 05:33 Ovalocytes 1+ 04/02/22 17:00 Echinocytes 1+ 04/02/22 17:00 PT 14.8 Seconds (9.0-12.0) H 04/09/22 05:33 INR 1.4 (0.9-1.1) H 04/09/22 05:33 APTT 46.8 Seconds (21.0-31.0) H* 04/02/22 17:00 PTT Ratio 1.7 04/02/22 17:00 Sodium 138 mmol/L (136-145) 04/09/22 05:33 Potassium 3.5 mmol/L (3.5-5.1) 04/09/22 05:33 Chloride 108 mmol/L (98-107) H 04/09/22 05:33 Carbon Dioxide 25 mmol/L (21-32) 04/09/22 05:33 Anion Gap 5 (3-11) 04/09/22 05:33 BUN 20 mg/dl (6-23) 04/09/22 05:33 Creatinine 0.79 mg/dl (0.6-1.2) 04/09/22 05:33 Est Cr Clr Drug Dosing 60.0 ml/min 04/09/22 05:33 Est GFR ( Amer) 86.7 ml/min 04/09/22 05:33 Est GFR (Non-Af Amer) 74.8 ml/min 04/09/22 05:33 BUN/Creatinine Ratio 25.3 (10-20) H 04/09/22 05:33 Glucose 99 mg/dl (70-99(Fasting)) 04/09/22 05:33 Calcium 8.3 mg/dl (8.5-10.1) L 04/09/22 05:33 Phosphorus 2.6 mg/dl (2.5-4.9) 04/09/22 05:33 Magnesium 1.5 mg/dl (1.7-2.4) L 04/09/22 05:33 Iron 36 mcg/dl (35-150) 04/05/22 09:59 Transferrin 150 mg/dl (200-360) L 04/05/22 09:59 Ferritin 382.1 ng/ml (8-388) 04/05/22 09:59 Total Bilirubin 0.3 mg/dl (0.2-1.0) 04/08/22 05:40 AST 13 U/L (13-39) 04/08/22 05:40 ALT 5 U/L (7-52) L 04/08/22 05:40 Alkaline Phosphatase 78 U/L (34-104) 04/08/22 05:40 Total Creatine Kinase 112 U/L (26-192) 04/03/22 07:39 Troponin I High Sens 82.9 pg/ml (0-14) H* D 04/03/22 07:39 Total Protein 5.0 gm/dl (6.0-8.3) L 04/08/22 05:40 Albumin 2.8 gm/dl (3.4-5.0) L 04/08/22 05:40 Globulin 2.2 gm/dl (2.5-4.0) L 04/08/22 05:40 Albumin/Globulin Ratio 1.3 (0.9-2) 04/08/22 05:40 Vitamin B12 1341 pg/ml (180-914) H 04/05/22 09:59 Folate 8.60 ng/ml (>5.38) 04/05/22 09:59 Urine Color Yellow 04/03/22 Unknown Urine Appearance Cloudy (Clear) A 04/03/22 Unknown Urine pH 5.0 (4.5-7.5) 04/03/22 Unknown Ur Specific [place] 1.019 (1.000-1.030) 04/03/22 Unknown Urine Protein 1+ (Negative) H 04/03/22 Unknown Urine Glucose (UA) Negative (Negative) 04/03/22 Unknown Urine Ketones Trace (Negative) H 04/03/22 Unknown Urine Blood 3+ (Negative) H 04/03/22 Unknown Urine Nitrite Negative (Negative) 04/03/22 Unknown Urine Bilirubin Negative (Negative) 04/03/22 Unknown Urine Urobilinogen Negative (Negative) 04/03/22 Unknown Ur Leukocyte Esterase 2+ (Negative) H 04/03/22 Unknown Urine WBC (Auto) >30 /hpf (0-5) H 04/03/22 Unknown Urine RBC (Auto) 10-30 /hpf (0-4) H 04/03/22 Unknown U Hyaline Cast (Auto) 5-10 /lpf (0-5) H 04/03/22 Unknown U Epithel Cells (Auto) >30 /lpf (0-5) H 04/03/22 Unknown Urine Bacteria (Auto) 4+ (Negative) H 04/03/22 Unknown Urine Yeast Not Reportable 04/03/22 Unknown Stool Occult Bld Scrn Negative (Negative) 04/07/22 07:50 SARS-CoV-2, RNA, NAAT NEGATIVE (NEGATIVE) 04/02/22 17:30 Impressions Chest X-Ray 04/02/22 16:03 XR chest 1V portable CLINICAL HISTORY: weakness TECHNIQUE: Single frontal radiograph of the chest was obtained. Comparison: Comparison is made to chest radiograph 03/16/2022 FINDINGS: No lines and tubes are seen. Cardiomegaly is noted. The lungs are clear. No evidence of pleural effusion or pneumothorax. Degenerative changes are seen in the bilateral shoulders. IMPRESSION: Cardiomegaly without evidence of acute abnormality. ACT 112: Negative or not required by law. Electronically signed by: Luis Felipe Luna M.D. 04/02/2022 4:37 PM Shoulder X-Ray 04/02/22 16:03 RIGHT SHOULDER 3 VIEWS CLINICAL HISTORY: Right shoulder pain. FINDINGS: 3 views of the right shoulder are compared to study dated 03/17/2022. The skeletal structures are osteopenic. There is no radiographic evidence of acute fracture or dislocation. Degenerative change is seen at the glenohumeral and acromioclavicular joints. Sclerotic change is noted in the greater tuberosity of the humeral head. The overlying soft tissues are normal as imaged. The right lung parenchyma is clear as visualized. IMPRESSION: No acute bony abnormality is identified. Electronically signed by: Julian Sibley M.D. 04/02/2022 4:23 PM Vascular Ultrasound 04/05/22 11:40 BILATERAL LOWER LEG ULTRASOUND TO ASSESS FOR HEMATOMA CLINICAL HISTORY: B/L leg swelling, anemia, Rule out hematoma COMPARISON STUDY: Bilateral lower extremity venous Doppler ultrasound January 10, 2022. TECHNIQUE: Sonography of the bilateral lower legs was performed to assess for hematoma. FINDINGS: No fluid collection was identified within the lower legs to suggest hematoma by sonography. Bilateral calf edema, a nonspecific finding, was noted. IMPRESSION: 1. No lower leg fluid collection to suggest hematoma. 2. Bilateral calf edema. ACT 112: Negative or not required by law. Electronically signed by: Norris Blackburn M.D. 04/05/2022 2:32 PM Medications Administered Current Inpatient Medications Acetaminophen (Acetaminophen 325 Mg Tab) 650 mg PO Q6H PRN PRN Reason: Fever/pain Stop: 05/03/22 00:39 Last Admin: 04/06/22 22:01 Dose: 650 mg Albuterol (Albuterol Hfa 8 Gm Inhaler) 2 puffs INH Q6 PRN PRN Reason: Shortness Of Breath Or Wheezin Stop: 05/02/22 21:32 Albuterol (Albut/Ipratrop 3mg/0.5mg Neb 3 Ml Vial) 3 ml INH QIDR PRN; Protocol PRN Reason: Shortness Of Breath Or Wheezing Stop: 05/02/22 21:32 Atorvastatin Calcium (Atorvastatin 20 Mg Tab) 20 mg PO QAM [facility] Stop: 05/03/22 08:59 Last Admin: 04/09/22 08:18 Dose: 20 mg Benzocaine (Benzocaine 20% (Orajel) 11.9 Gm Tube) 1 appln MT TID PRN PRN Reason: oral ulcer pain Stop: 05/04/22 13:02 Last Admin: 04/05/22 21:27 Dose: 1 appln Buprenorphine HCl (Pt's Own Med: Buprenorphine 15 Mcg/Patch Tdsy) 15 mcg TD Sa@1500 [facility] Stop: 05/07/22 14:59 Last Admin: 04/07/22 16:07 Dose: 15 mcg Carbidopa/Levodopa (Carbidopa/Levodopa 25/100mg Tab) 1 tab PO QID [facility] Stop: 05/02/22 21:32 Last Admin: 04/09/22 08:16 Dose: 1 tab Fish Oil ([place]-3 (Purified Fish Oil) 1 Gm Cap) 1 gm PO DAILY [facility] Stop: 05/03/22 08:59 Last Admin: 04/09/22 08:18 Dose: 1 gm Fluticasone/Vilanterol (Fluticasone/Vilanterol 100/25mcg 14 Puffs/Inhaler) 1 puffs INH DAILY [facility] Stop: 05/03/22 08:59 Last Admin: 04/09/22 08:19 Dose: 1 puffs Furosemide (Furosemide 40 Mg Tab) 40 mg PO QAM [facility] Stop: 05/05/22 09:59 Last Admin: 04/08/22 07:38 Dose: 40 mg Ipratropium [place] (Ipratropium [place] Nasal [place] 0.06% 15ml) 1 sprays ELYSE QID [facility] Stop: 05/02/22 21:32 Last Admin: 04/09/22 08:19 Dose: 1 sprays Lactobacillus Acidophilus (Advanced Probiotic 1250 Mg Capsule) 2 cap PO DAILY [facility] Stop: 05/03/22 08:59 Last Admin: 04/09/22 08:19 Dose: 2 cap Levothyroxine Sodium (Levothyroxine Sodium 50 Mcg Tablet) 50 mcg PO DAILYBB [facility] Stop: 05/03/22 06:29 Last Admin: 04/09/22 04:57 Dose: 50 mcg Linaclotide (Linaclotide 145 Mcg Capsule) 290 mcg PO DAILY [facility] Stop: 05/03/22 08:59 Last Admin: 04/09/22 08:18 Dose: 290 mcg Magnesium Oxide (Magnesium Oxide 400 Mg Tab) 400 mg PO TID [facility] Stop: 04/10/22 08:59 Last Admin: 04/09/22 08:16 Dose: 400 mg Metaxalone (Metaxalone 800 Mg Tablet) 400 mg PO TID [facility] Stop: 05/06/22 13:59 Last Admin: 04/09/22 08:16 Dose: 400 mg Metoprolol Tartrate (Metoprolol Tartrate 25 Mg Tab) 12.5 mg PO DAILY [facility] Stop: 05/03/22 08:59 Last Admin: 04/09/22 08:18 Dose: 12.5 mg Miscellaneous (Cromolyn 4% Drops: Order Awaiting Action) 1 each N/A QS [facility] Stop: 05/03/22 07:59 Last Admin: 04/09/22 07:38 Dose: Not Given Miscellaneous (Remove & Waste [place] Patch 1 Ea Ea) 1 each N/A Sa@1459 [facility] Stop: 05/07/22 14:58 Last Admin: 04/07/22 14:31 Dose: Not Given Miscellaneous (Check Buprenorphine Patch) 1 each N/A QS [facility] Stop: 05/07/22 15:59 Last Admin: 04/09/22 07:38 Dose: 1 each Montelukast Sodium (Montelukast Sodium 10 Mg Tablet) 10 mg PO HS [facility] Stop: 05/02/22 21:32 Last Admin: 04/08/22 21:09 Dose: 10 mg Multivitamins/Minerals (Cerovite Adv Formula Tab) 1 tab PO DAILY [facility] Stop: 05/03/22 08:59 Last Admin: 04/09/22 08:17 Dose: 1 tab Oxycodone/Acetaminophen (Oxycodone/Acetaminophen 5mg/325mg Tab) 1 tab PO Q8H PRN PRN Reason: Pain Stop: 04/17/22 08:06 Last Admin: 04/09/22 07:38 Dose: 1 tab Pantoprazole Sodium (Pantoprazole 40 Mg Tab) 40 mg PO DAILY [facility] Stop: 05/03/22 08:59 Last Admin: 04/09/22 08:18 Dose: 40 mg Potassium Chloride (Potassium Chloride Pwd 20 Meq Pack) 20 meq PO BID [facility] Stop: 05/02/22 21:32 Last Admin: 04/09/22 08:17 Dose: 20 meq Ropinirole HCl (Ropinirole Hcl 1 Mg Tablet) 1 mg PO TID@0800,1200,1600 [facility] Stop: 05/03/22 07:59 Last Admin: 04/09/22 07:38 Dose: 1 mg Ropinirole HCl (Ropinirole Hcl 1 Mg Tablet) 2 mg PO HS [facility] Stop: 05/02/22 21:32 Last Admin: 04/08/22 21:10 Dose: 2 mg Thiamine HCl (Thiamine Hcl 100 Mg Tab) 100 mg PO BID [facility] Stop: 05/02/22 21:32 Last Admin: 04/09/22 08:17 Dose: 100 mg Warfarin Sodium (Warfarin Sod 2.5 Mg Tab) 2.5 mg PO DAILY@1600 [facility] Stop: 05/03/22 15:59 Last Admin: 04/08/22 15:24 Dose: 2.5 mg
[2022-04-09] MEDS: WARFARIN SOD 2.5 MG TAB PO SCH (17:15)
[2022-04-09] MEDS: MONTELUKAST SODIUM 10 MG TABLET PO SCH (21:33)
[2022-04-10] MEDS: oxyCODONE/ACETAMINOPHEN 5mg/325mg TAB PO PRN ×2 (02:55→20:21)
[2022-04-10] MEDS: LEVOTHYROXINE SODIUM 50 MCG TABLET PO SCH (05:24)
[2022-04-10 06:39] LABS: INR 1.3 (0.9-1.1); Prothrombin Time 13.9 Seconds (9.0-12.0)
[2022-04-10 06:52] LABS: Calcium 8.6 mg/dl (8.5-10.1); Creatinine Clr Calc Pharmacy 64.9 ml/min; Est GFR (African American) 95.4 ml/min; Est GFR (Non-African American) 82.3 ml/min; Magnesium 1.6 mg/dl (1.7-2.4); Phosphorus 2.6 mg/dl (2.5-4.9); Potassium 3.5 mmol/L (3.5-5.1)
[2022-04-10] MEDS ORDERED: POTASSIUM CHLORIDE CRTAB 20 MEQ TABCR PO STA (07:18)
[2022-04-10] MEDS ORDERED: WARFARIN SOD 1 MG TAB PO STA (07:46)
[2022-04-10] MEDS: CARBIDOPA/LEVODOPA 25/100MG TAB PO SCH ×4 (08:47→19:54)
[2022-04-10] MEDS: LINACLOTIDE 145 MCG CAPSULE PO SCH (08:47)
[2022-04-10] MEDS: METAXALONE 800 MG TABLET PO SCH ×3 (08:47→19:52)
[2022-04-10] MEDS: POTASSIUM CHLORIDE PWD 20 MEQ PACK PO SCH ×2 (08:47→19:53)
[2022-04-10] MEDS: CEROVITE ADV FORMULA TAB PO SCH (08:47)
[2022-04-10] MEDS: THIAMINE HCL 100 MG TAB PO SCH ×2 (08:47→19:51)
[2022-04-10] MEDS: METOPROLOL TARTRATE 25 MG TAB PO SCH (08:48)
[2022-04-10] MEDS: ADVANCED PROBIOTIC 1250 MG CAPSULE PO SCH (08:48)
[2022-04-10] MEDS: OMEGA-3 (PURIFIED FISH OIL) 1 GM CAP PO SCH (08:48)
[2022-04-10] MEDS: FLUTICASONE/VILANTEROL 100/25MCG 14 PUFFS/INHALER INH SCH (08:48)
[2022-04-10] MEDS: CHECK BUPRENORPHINE PATCH SCH ×3 (08:48→23:47)
[2022-04-10] MEDS: ATORVASTATIN 20 MG TAB PO SCH (08:48)
[2022-04-10] MEDS: rOPINIRole HCL 1 MG TABLET PO SCH ×4 (08:48→19:52)
[2022-04-10] MEDS: PANTOprazole 40 MG TAB PO SCH (08:48)
[2022-04-10] MEDS: IPRATROPIUM BROMIDE NASAL SPRAY 0.06% 15ML NAE SCH ×4 (08:49→19:51)
[2022-04-10] MEDS: MAGNESIUM SULFATE / D5W 1 GM/100 ML BAG IV SCH ×2 (08:55→10:33)
[2022-04-10] MEDS: ACETAMINOPHEN 325 MG TAB PO PRN (09:05)
[2022-04-10] MEDS ORDERED: FUROSEMIDE 40 MG/4 ML VIAL IV ONE (11:03)
--- NOTE | 2022-04-10 11:06 | Hospitalist Progress Note ---
Date of Service April 10, 2022 Assessment & Plan (1) Weakness: (2) Ambulatory dysfunction: Plan: Patient was brought to the ER for ambulatory dysfunction and weakness after Adult Protective Services found her sitting in a chair and able to care for herself. LE edema - seems to be worsening slightly with increased erythema - no signs of infection at this time and just finished course of abx on 04/07/2022 - swelling and skin changes are chronic to some degree at baseline - continue lasix BID for now - monitor UOP and Cr - monitor LE edema response - slowly improving Ambulatory dysfunction Generalized weakness H/O R rotator cuff tear --plan for surgery as outpatient Shoulder Xray showed no acute bony abnormality is identified. fall precautions Continue PT/OT eval Will need placement - pending SNF placement JAEL Due to dehydration from poor intake Cr 1.8>>>1.3>1.04>0.94 Held diuretics--resume as able Avoid nephrotoxic agents as able Monitor renal function Monitor volume status IV fluids discontinued 04/04 Restarted on Lasix 04/05/2022 - switched to IV lasix 04/08/2022 due to worsening LE edema - continue for now (04/09/2022) UTI-POA H/O multiple UTIs in the past Urine culture growing Klebsiella pneumonia Rocephin - s/p 5 day course ended 04/07/2022 Hypokalemia Replace electrolytes as needed Chronic elevated troponin Possible related to elevate CK level Troponin 81 on admission Echo 02/08/2022: Mild LVH, EF: 60-65%, mild aortic regurgitation Continue metoprolol and plavix Denies any chest pain Continue monitor Hypercoagulable state - initially INR supratherapeutic on admission and coumadin was held - INR normalized - Resumed Coumadin 04/05/2022 - daily INR while inpatient - trending up - no signs of bleeding - FOBT negative 04/08/2022 - continue to monitor Chronic diastolic heart failure: Lasix initially held due to JAEL Monitor volume status Resume lasix 04/05/2022 - changed to IV 04/08/2022 for worsening LE edema - monitor UOP Monitor renal function, electrolytes Parkinson's: Continue carbidopa levodopa HTN: Continue metoprolol succinate HLD: Continue statin Hypothyroidism: Continue levothyroxine Chronic pain: Continue home meds RLS: Continue ropinirole Chronic anemia: monitor CBC Hgb stable Anemia work up indicating AOC No obvious source of bleeding - FOBT negative Monitor Asthma: No signs acute exacerbation Continue home inhalers History gastric bypass History GERD: Continue PPI H/O Edenilson-Danlos syndrome stable DVT Px: Coumadin Code Status Full code Admission and Anticipated Discharge Date Admission Date: April 02, 2022 Subjective Patient is seen and examined at bedside Has chronic generalized pain but is mostly concerned with her leg swelling and redness with some pain that is transient - noticed some improvement but still swollen and painful at times Denies any chest pain, shortness of breath, dizziness, nausea, abdominal pain Review of Systems Review of Systems: All systems reviewed & are unremarkable except as noted in Subjective Physical Exam Physical Exam: General Appearance:Moderately built and nourished, no apparent distress, Elderly Head: normocephalic, Atraumatic Eyes: normal inspection, EOMI Neck: supple, Trachea midline Respiratory/Chest: Decreased breath sounds, CTA, No accessory muscle use Cardiovascular: S1, S2, + murmur Abdomen/GI:Soft, Non tender, Bowel sounds present Extremities/Musculoskeletal:normal inspection, + B/L LE edema with erythema - showing signs of improvement with mild wrinkling of skin, R shoulder decreased ROM Neurologic/Psych:AAOX3, grossly no focal neurological deficits Skin: normal color, warm, RLE wounds Results & Data Results & [facility] ([facility]) Vital Signs (Past 12 Hours) Vital Signs Temp Pulse Resp BP Pulse Ox O2 Del Method 04/10/22 07:56 36.7 C 95 H 18 94/60 L 94 Room Air 04/10/22 03:18 36.6 C 81 18 99/65 L 99 Room Air 04/09/22 23:21 36.6 C 79 18 97/63 L 99 Room Air Diagnostic Findings Laboratory Results WBC 6.45 K/ul (4.8-10.8) 04/09/22 05:33 RBC 2.63 M/uL (3.93-5.22) L 04/09/22 05:33 Hgb 8.0 g/dl (12.0-16.0) L 04/09/22 05:33 Hct 25.2 % (34.1-44.9) L 04/09/22 05:33 MCV 95.8 fL (80.0-100.0) 04/09/22 05:33 MCH 30.4 pg (25.0-34.0) 04/09/22 05:33 MCHC 31.7 g/dL (32.0-36.0) L 04/09/22 05:33 RDW Std Deviation 60.5 fL (36.4-46.3) H 04/09/22 05:33 RDW Coeff of [place] 17.2 % (11.5-14.5) H 04/09/22 05:33 Plt Count 272 K/uL (130-400) 04/09/22 05:33 MPV 9.8 fL (9.4-12.3) 04/09/22 05:33 Immature Gran % (Auto) 0.9 % 04/09/22 05:33 Neut % (Auto) 78.0 % 04/09/22 05:33 Lymph % (Auto) 12.4 % 04/09/22 05:33 Lander % (Auto) 7.3 % 04/09/22 05:33 Eos % (Auto) 0.9 % 04/09/22 05:33 Baso % (Auto) 0.5 % 04/09/22 05:33 Neut # (Auto) 5.03 K/uL (1.4-6.5) 04/09/22 05:33 Lymph # (Auto) 0.80 K/uL (1.2-3.4) L 04/09/22 05:33 Lander # (Auto) 0.47 K/uL (0.24-0.82) 04/09/22 05:33 Eos # (Auto) 0.06 K/uL (0-0.50) 04/09/22 05:33 Baso # (Auto) 0.03 K/uL (0-0.2) 04/09/22 05:33 Immature Gran # (Auto) 0.06 K/uL (0.00-0.02) H 04/09/22 05:33 Ovalocytes 1+ 04/02/22 17:00 Echinocytes 1+ 04/02/22 17:00 PT 13.9 Seconds (9.0-12.0) H 04/10/22 05:28 INR 1.3 (0.9-1.1) H 04/10/22 05:28 APTT 46.8 Seconds (21.0-31.0) H* 04/02/22 17:00 PTT Ratio 1.7 04/02/22 17:00 Sodium 139 mmol/L (136-145) 04/10/22 05:28 Potassium 3.5 mmol/L (3.5-5.1) 04/10/22 05:28 Chloride 107 mmol/L (98-107) 04/10/22 05:28 Carbon Dioxide 27 mmol/L (21-32) 04/10/22 05:28 Anion Gap 5 (3-11) 04/10/22 05:28 BUN 19 mg/dl (6-23) 04/10/22 05:28 Creatinine 0.73 mg/dl (0.6-1.2) 04/10/22 05:28 Est Cr Clr Drug Dosing 64.9 ml/min 04/10/22 05:28 Est GFR ( Amer) 95.4 ml/min 04/10/22 05:28 Est GFR (Non-Af Amer) 82.3 ml/min 04/10/22 05:28 BUN/Creatinine Ratio 26.0 (10-20) H 04/10/22 05:28 Glucose 98 mg/dl (70-99(Fasting)) 04/10/22 05:28 Calcium 8.6 mg/dl (8.5-10.1) 04/10/22 05:28 Phosphorus 2.6 mg/dl (2.5-4.9) 04/10/22 05:28 Magnesium 1.6 mg/dl (1.7-2.4) L 04/10/22 05:28 Iron 36 mcg/dl (35-150) 04/05/22 09:59 Transferrin 150 mg/dl (200-360) L 04/05/22 09:59 Ferritin 382.1 ng/ml (8-388) 04/05/22 09:59 Total Bilirubin 0.3 mg/dl (0.2-1.0) 04/08/22 05:40 AST 13 U/L (13-39) 04/08/22 05:40 ALT 5 U/L (7-52) L 04/08/22 05:40 Alkaline Phosphatase 78 U/L (34-104) 04/08/22 05:40 Total Creatine Kinase 112 U/L (26-192) 04/03/22 07:39 Troponin I High Sens 82.9 pg/ml (0-14) H* D 04/03/22 07:39 Total Protein 5.0 gm/dl (6.0-8.3) L 04/08/22 05:40 Albumin 2.8 gm/dl (3.4-5.0) L 04/08/22 05:40 Globulin 2.2 gm/dl (2.5-4.0) L 04/08/22 05:40 Albumin/Globulin Ratio 1.3 (0.9-2) 04/08/22 05:40 Vitamin B12 1341 pg/ml (180-914) H 04/05/22 09:59 Folate 8.60 ng/ml (>5.38) 04/05/22 09:59 Urine Color Yellow 04/03/22 Unknown Urine Appearance Cloudy (Clear) A 04/03/22 Unknown Urine pH 5.0 (4.5-7.5) 04/03/22 Unknown Ur Specific [place] 1.019 (1.000-1.030) 04/03/22 Unknown Urine Protein 1+ (Negative) H 04/03/22 Unknown Urine Glucose (UA) Negative (Negative) 04/03/22 Unknown Urine Ketones Trace (Negative) H 04/03/22 Unknown Urine Blood 3+ (Negative) H 04/03/22 Unknown Urine Nitrite Negative (Negative) 04/03/22 Unknown Urine Bilirubin Negative (Negative) 04/03/22 Unknown Urine Urobilinogen Negative (Negative) 04/03/22 Unknown Ur Leukocyte Esterase 2+ (Negative) H 04/03/22 Unknown Urine WBC (Auto) >30 /hpf (0-5) H 04/03/22 Unknown Urine RBC (Auto) 10-30 /hpf (0-4) H 04/03/22 Unknown U Hyaline Cast (Auto) 5-10 /lpf (0-5) H 04/03/22 Unknown U Epithel Cells (Auto) >30 /lpf (0-5) H 04/03/22 Unknown Urine Bacteria (Auto) 4+ (Negative) H 04/03/22 Unknown Urine Yeast Not Reportable 04/03/22 Unknown Stool Occult Bld Scrn Negative (Negative) 04/07/22 07:50 SARS-CoV-2, RNA, NAAT NEGATIVE (NEGATIVE) 04/02/22 17:30 Impressions Chest X-Ray 04/02/22 16:03 XR chest 1V portable CLINICAL HISTORY: weakness TECHNIQUE: Single frontal radiograph of the chest was obtained. Comparison: Comparison is made to chest radiograph 03/16/2022 FINDINGS: No lines and tubes are seen. Cardiomegaly is noted. The lungs are clear. No evidence of pleural effusion or pneumothorax. Degenerative changes are seen in the bilateral shoulders. IMPRESSION: Cardiomegaly without evidence of acute abnormality. ACT 112: Negative or not required by law. Electronically signed by: Luis Felipe Luna M.D. 04/02/2022 4:37 PM Shoulder X-Ray 04/02/22 16:03 RIGHT SHOULDER 3 VIEWS CLINICAL HISTORY: Right shoulder pain. FINDINGS: 3 views of the right shoulder are compared to study dated 03/17/2022. The skeletal structures are osteopenic. There is no radiographic evidence of acute fracture or dislocation. Degenerative change is seen at the glenohumeral and acromioclavicular joints. Sclerotic change is noted in the greater tuberosity of the humeral head. The overlying soft tissues are normal as imaged. The right lung parenchyma is clear as visualized. IMPRESSION: No acute bony abnormality is identified. Electronically signed by: Julian Sibley M.D. 04/02/2022 4:23 PM Vascular Ultrasound 04/05/22 11:40 BILATERAL LOWER LEG ULTRASOUND TO ASSESS FOR HEMATOMA CLINICAL HISTORY: B/L leg swelling, anemia, Rule out hematoma COMPARISON STUDY: Bilateral lower extremity venous Doppler ultrasound January 10, 2022. TECHNIQUE: Sonography of the bilateral lower legs was performed to assess for hematoma. FINDINGS: No fluid collection was identified within the lower legs to suggest hematoma by sonography. Bilateral calf edema, a nonspecific finding, was noted. IMPRESSION: 1. No lower leg fluid collection to suggest hematoma. 2. Bilateral calf edema. ACT 112: Negative or not required by law. Electronically signed by: Norris Blackburn M.D. 04/05/2022 2:32 PM Medications Administered Current Inpatient Medications Acetaminophen (Acetaminophen 325 Mg Tab) 650 mg PO Q6H PRN PRN Reason: Fever/pain Stop: 05/03/22 00:39 Last Admin: 04/10/22 09:05 Dose: 650 mg Albuterol (Albuterol Hfa 8 Gm Inhaler) 2 puffs INH Q6 PRN PRN Reason: Shortness Of Breath Or Wheezin Stop: 05/02/22 21:32 Albuterol (Albut/Ipratrop 3mg/0.5mg Neb 3 Ml Vial) 3 ml INH QIDR PRN; Protocol PRN Reason: Shortness Of Breath Or Wheezing Stop: 05/02/22 21:32 Atorvastatin Calcium (Atorvastatin 20 Mg Tab) 20 mg PO QAM ASHUTOSH Stop: 05/03/22 08:59 Last Admin: 04/10/22 08:48 Dose: 20 mg Benzocaine (Benzocaine 20% (Orajel) 11.9 Gm Tube) 1 appln MT TID PRN PRN Reason: oral ulcer pain Stop: 05/04/22 13:02 Last Admin: 04/05/22 21:27 Dose: 1 appln Buprenorphine HCl (Pt's Own Med: Buprenorphine 15 Mcg/Patch Tdsy) 15 mcg TD Sa@1500 ASHUTOSH Stop: 05/07/22 14:59 Last Admin: 04/07/22 16:07 Dose: 15 mcg Carbidopa/Levodopa (Carbidopa/Levodopa 25/100mg Tab) 1 tab PO QID ASHUTOSH Stop: 05/02/22 21:32 Last Admin: 04/10/22 08:47 Dose: 1 tab Fish Oil (Lynch-3 (Purified Fish Oil) 1 Gm Cap) 1 gm PO DAILY ASHUTOSH Stop: 05/03/22 08:59 Last Admin: 04/10/22 08:48 Dose: 1 gm Fluticasone/Vilanterol (Fluticasone/Vilanterol 100/25mcg 14 Puffs/Inhaler) 1 puffs INH DAILY ASHUTOSH Stop: 05/03/22 08:59 Last Admin: 04/10/22 08:48 Dose: 1 puffs Furosemide (Furosemide 40 Mg Tab) 40 mg PO QAM ASHUTOSH Stop: 05/05/22 09:59 Last Admin: 04/08/22 07:38 Dose: 40 mg Furosemide (Furosemide 40 Mg/4 Ml Vial) 40 mg IV ONE ONE Stop: 04/10/22 11:04 Magnesium Sulfate/Dextrose (Magnesium Sulfate / D5w) 1 gm in 100 mls @ 50 mls/hr IV Q2H ASHUTOSH Stop: 04/10/22 11:29 Last Admin: 04/10/22 10:33 Dose: 50 mls/hr Ipratropium Valatie (Ipratropium Valatie Nasal [place] 0.06% 15ml) 1 sprays ELYSE QID ASHUTOSH Stop: 05/02/22 21:32 Last Admin: 04/10/22 08:49 Dose: 1 sprays Lactobacillus Acidophilus (Advanced Probiotic 1250 Mg Capsule) 2 cap PO DAILY ASHUTOSH Stop: 05/03/22 08:59 Last Admin: 04/10/22 08:48 Dose: 2 cap Levothyroxine Sodium (Levothyroxine Sodium 50 Mcg Tablet) 50 mcg PO DAILYBB ASHUTOSH Stop: 05/03/22 06:29 Last Admin: 04/10/22 05:24 Dose: 50 mcg Linaclotide (Linaclotide 145 Mcg Capsule) 290 mcg PO DAILY ASHUTOSH Stop: 05/03/22 08:59 Last Admin: 04/10/22 08:47 Dose: 290 mcg Metaxalone (Metaxalone 800 Mg Tablet) 400 mg PO TID ASHUTOSH Stop: 05/06/22 13:59 Last Admin: 04/10/22 08:47 Dose: 400 mg Metoprolol Tartrate (Metoprolol Tartrate 25 Mg Tab) 12.5 mg PO DAILY ASHUTOSH Stop: 05/03/22 08:59 Last Admin: 04/10/22 08:48 Dose: 12.5 mg Miscellaneous (Remove & Waste Butrans Patch 1 Ea Ea) 1 each N/A Sa@1459 [facility] Stop: 05/07/22 14:58 Last Admin: 04/07/22 14:31 Dose: Not Given Miscellaneous (Check Buprenorphine Patch) 1 each N/A QS ASHUTOSH Stop: 05/07/22 15:59 Last Admin: 04/10/22 08:48 Dose: 1 each Montelukast Sodium (Montelukast Sodium 10 Mg Tablet) 10 mg PO HS ASHUTOSH Stop: 05/02/22 21:32 Last Admin: 04/09/22 21:33 Dose: 10 mg Multivitamins/Minerals (Cerovite Adv Formula Tab) 1 tab PO DAILY ASHUTOSH Stop: 05/03/22 08:59 Last Admin: 04/10/22 08:47 Dose: 1 tab Oxycodone/Acetaminophen (Oxycodone/Acetaminophen 5mg/325mg Tab) 1 tab PO Q8H PRN PRN Reason: Pain Stop: 04/17/22 08:06 Last Admin: 04/10/22 02:55 Dose: 1 tab Pantoprazole Sodium (Pantoprazole 40 Mg Tab) 40 mg PO DAILY ASHUTOSH Stop: 05/03/22 08:59 Last Admin: 04/10/22 08:48 Dose: 40 mg Potassium Chloride (Potassium Chloride Pwd 20 Meq Pack) 20 meq PO BID ASHUTOSH Stop: 05/02/22 21:32 Last Admin: 04/10/22 08:47 Dose: 20 meq Ropinirole HCl (Ropinirole Hcl 1 Mg Tablet) 1 mg PO TID@0800,1200,1600 ASHUTOSH Stop: 05/03/22 07:59 Last Admin: 04/10/22 08:48 Dose: 1 mg Ropinirole HCl (Ropinirole Hcl 1 Mg Tablet) 2 mg PO HS ASHUTOSH Stop: 05/02/22 21:32 Last Admin: 04/09/22 21:34 Dose: 2 mg Thiamine HCl (Thiamine Hcl 100 Mg Tab) 100 mg PO BID ASHUTOSH Stop: 05/02/22 21:32 Last Admin: 04/10/22 08:47 Dose: 100 mg Warfarin Sodium (Warfarin Sod 2.5 Mg Tab) 2.5 mg PO DAILY@1600 ASHUTOSH Stop: 05/03/22 15:59 Last Admin: 04/09/22 17:15 Dose: 2.5 mg
[2022-04-10] MEDS: WARFARIN SOD 2.5 MG TAB PO SCH (15:03)
[2022-04-10] MEDS: POLYETHYLENE (MIRALAX) 17 GM PACK PO SCH (16:15)
[2022-04-10] MEDS: DOCUSATE SODIUM/SENNA 50/8.6MG TAB PO SCH (16:20)
[2022-04-10] MEDS: FUROSEMIDE INJ 20 MG/2 ML VIAL IV SCH (19:54)
[2022-04-10] MEDS: MONTELUKAST SODIUM 10 MG TABLET PO SCH (21:41)
[2022-04-11] MEDS: BENZOCAINE 20% (ORAJEL) 11.9 GM TUBE MT PRN (03:07)
[2022-04-11] MEDS: ACETAMINOPHEN 325 MG TAB PO PRN (03:10)
[2022-04-11] MEDS: oxyCODONE/ACETAMINOPHEN 5mg/325mg TAB PO PRN ×2 (05:12→21:47)
[2022-04-11 05:56] LABS: Basophils # (auto) 0.02 K/uL (0-0.2); Basophils % (auto) 0.3 %; Eosinophils # (auto) 0.04 K/uL (0-0.50); Eosinophils % (auto) 0.7 %; Hematocrit (blood only) 25.9 % (34.1-44.9); Hemoglobin 8.3 g/dl (12.0-16.0); Immature Granulocytes # (auto) 0.05 K/uL (0.00-0.02); Immature Granulocytes % (auto) 0.8 %; Lymphocytes % (auto) 13.1 %; Mean Corpuscular Hemoglobin 29.9 pg (25.0-34.0); Mean Corpuscular Volume 93.2 fL (80.0-100.0); Mean Platelet Volume 9.9 fL (9.4-12.3); Monocytes # (auto) 0.51 K/uL (0.24-0.82); Monocytes % (auto) 8.4 %; Neutrophils # (auto) 4.68 K/uL (1.4-6.5); Neutrophils % (auto) 76.7 %; Platelet Count 294 K/uL (130-400); RDW Coefficient of Variation 16.9 % (11.5-14.5); RDW Standard Deviation 57.3 fL (36.4-46.3); Red Blood Count 2.78 M/uL (3.93-5.22)
[2022-04-11 06:09] LABS: INR 1.5 (0.9-1.1); Prothrombin Time 15.6 Seconds (9.0-12.0)
[2022-04-11] MEDS: LEVOTHYROXINE SODIUM 50 MCG TABLET PO SCH (06:10)
[2022-04-11 06:23] LABS: BUN Creatinine Ratio 27.6 (10-20); Calcium 8.7 mg/dl (8.5-10.1); Creatinine Clr Calc Pharmacy 62.4 ml/min; Est GFR (African American) 90.8 ml/min; Est GFR (Non-African American) 78.4 ml/min; Magnesium 1.8 mg/dl (1.7-2.4); Phosphorus 2.9 mg/dl (2.5-4.9); Potassium 3.8 mmol/L (3.5-5.1)
[2022-04-11] MEDS: CARBIDOPA/LEVODOPA 25/100MG TAB PO SCH ×4 (08:31→21:50)
[2022-04-11] MEDS: CHECK BUPRENORPHINE PATCH SCH ×2 (08:31→15:39)
[2022-04-11] MEDS: FUROSEMIDE INJ 20 MG/2 ML VIAL IV SCH ×2 (08:31→13:12)
[2022-04-11] MEDS: POTASSIUM CHLORIDE PWD 20 MEQ PACK PO SCH ×2 (08:32→21:50)
[2022-04-11] MEDS: CEROVITE ADV FORMULA TAB PO SCH (08:32)
[2022-04-11] MEDS: ATORVASTATIN 20 MG TAB PO SCH (08:32)
[2022-04-11] MEDS: METOPROLOL TARTRATE 25 MG TAB PO SCH (08:32)
[2022-04-11] MEDS: ADVANCED PROBIOTIC 1250 MG CAPSULE PO SCH (08:32)
[2022-04-11] MEDS: PANTOprazole 40 MG TAB PO SCH (08:32)
[2022-04-11] MEDS: LINACLOTIDE 145 MCG CAPSULE PO SCH (08:32)
[2022-04-11] MEDS: THIAMINE HCL 100 MG TAB PO SCH ×2 (08:32→21:50)
[2022-04-11] MEDS: METAXALONE 800 MG TABLET PO SCH ×3 (08:32→21:48)
[2022-04-11] MEDS: rOPINIRole HCL 1 MG TABLET PO SCH ×4 (08:33→21:52)
[2022-04-11] MEDS: IPRATROPIUM BROMIDE NASAL SPRAY 0.06% 15ML NAE SCH ×4 (08:33→21:51)
[2022-04-11] MEDS: FLUTICASONE/VILANTEROL 100/25MCG 14 PUFFS/INHALER INH SCH (08:33)
[2022-04-11] MEDS: DOCUSATE SODIUM/SENNA 50/8.6MG TAB PO SCH (09:48)
[2022-04-11] MEDS: OMEGA-3 (PURIFIED FISH OIL) 1 GM CAP PO SCH (09:48)
[2022-04-11] MEDS: POLYETHYLENE (MIRALAX) 17 GM PACK PO SCH (09:49)
[2022-04-11] MEDS: WARFARIN SOD 2.5 MG TAB PO SCH (16:57)
--- NOTE | 2022-04-11 18:03 | Hospitalist Progress Note ---
Date of Service April 11, 2022 Assessment & Plan (1) Weakness: (2) Ambulatory dysfunction: Plan: Patient was brought to the ER for ambulatory dysfunction and weakness after Adult Protective Services found her sitting in a chair and not able to care for herself. LE edema Swelling and skin changes are chronic to some degree at baseline Doppler showed no lower leg fluid collection to suggest hematoma. b/L edema No signs of infection at this time and just finished course of abx on 04/07/2022 Has been getting lasix around the clock Swelling clinically improves Will hold lasix tonight due to low BP Ambulatory dysfunction Generalized weakness H/O R rotator cuff tear --plan for surgery as outpatient Shoulder Xray showed no acute bony abnormality is identified. fall precautions Continue PT/OT eval Waiting for placement JAEL Due to dehydration from poor intake Cr 1.8>>>1.3>1.04>0.94--->0.76 Avoid nephrotoxic agents as able Monitor renal function Monitor volume status IV fluids discontinued 04/04 Restarted on Lasix 04/05/2022 - switched to IV lasix 04/08/2022 due to worsening LE edema - continue for now (04/09/2022) Will hold Lasix tonight UTI-POA H/O multiple UTIs in the past Urine culture growing Klebsiella pneumonia Rocephin - s/p 5 day course ended 04/07/2022 Hypokalemia K 3.8 today Complete monitor electrolytes Chronic elevated troponin Possible related to elevate CK level Troponin 81 on admission Echo 02/08/2022: Mild LVH, EF: 60-65%, mild aortic regurgitation Continue metoprolol and plavix Denies any chest pain Continue monitor Hypercoagulable state - initially INR supratherapeutic on admission and coumadin was held - INR normalized - Resumed Coumadin 04/05/2022 - daily INR while inpatient - trending up - no signs of bleeding - FOBT negative 04/08/2022 - INR 1.5 today Chronic diastolic heart failure: Lasix initially held due to JAEL Monitor volume status She has been on IV lasix since 04/08 stable Parkinson's: Continue carbidopa levodopa HTN: Continue metoprolol succinate HLD: Continue statin Hypothyroidism: Continue levothyroxine Chronic pain: Continue home meds RLS: Continue ropinirole Chronic anemia: monitor CBC Hgb stable Anemia work up indicating AOC No obvious source of bleeding FOBT negative Monitor Asthma: No signs acute exacerbation Continue home inhalers History gastric bypass History GERD: Continue PPI H/O Edenilson-Danlos syndrome stable DVT Px: Coumadin, INR 1.5 today Code Status Full code Admission and Anticipated Discharge Date Admission Date: April 02, 2022 Subjective Pt wasd seen and examined for follow up Sitting in bed with no acute distress Pt said that she is upset because she had to sign her right to give her dog away Denies any chest pain, palpitation, dizziness and SOB Review of Systems Review of Systems: All systems reviewed & are unremarkable except as noted in Subjective Physical Exam Physical Exam: General- No acute distress, inttermittent tearful Head- atraumatic Eyes- PERRL, EOMI, ENT- oropharynx clear Neck- supple, no JVD Lungs- clear to auscultation Heart- regular rhythm; + murmur Abdomen- normal bowel sounds, soft, nontender Extremities- +edema, RUE swelling +multiple scattered ecchymosis in extremities Neuro- alert, oriented x 3; PERRL, EOMI; no facial palsy; no dysarthria Skin- warm & dry Results & Data Results & Data ([facility]) Vital Signs (Past 12 Hours) Vital Signs Temp Pulse Pulse Resp BP Pulse Ox O2 Del Method 04/11/22 16:17 36.4 C L 102 H 20 87/58 L 96 Room Air 04/11/22 15:19 89 04/11/22 11:32 36.5 C 100 H 20 121/82 97 Room Air 04/11/22 07:41 82 04/11/22 07:21 36.8 C 79 20 94/82 L 98 Room Air
[2022-04-11] MEDS: MONTELUKAST SODIUM 10 MG TABLET PO SCH (21:50)
[2022-04-12] MEDS: CHECK BUPRENORPHINE PATCH SCH ×4 (00:56→23:38)
[2022-04-12] MEDS: BUPRENORPHINE TD SCH (03:56)
[2022-04-12] MEDS: LEVOTHYROXINE SODIUM 50 MCG TABLET PO SCH (05:59)
[2022-04-12] MEDS: oxyCODONE/ACETAMINOPHEN 5mg/325mg TAB PO PRN ×2 (06:03→16:19)
[2022-04-12 06:31] LABS: INR 1.5 (0.9-1.1); Prothrombin Time 15.4 Seconds (9.0-12.0)
[2022-04-12 07:01] LABS: BUN Creatinine Ratio 31.4 (10-20); Calcium 8.5 mg/dl (8.5-10.1); Creatinine Clr Calc Pharmacy 67.8 ml/min; Est GFR (African American) 100.3 ml/min; Est GFR (Non-African American) 86.6 ml/min; Potassium 3.7 mmol/L (3.5-5.1)
[2022-04-12] MEDS: METAXALONE 800 MG TABLET PO SCH ×3 (08:09→20:01)
[2022-04-12] MEDS: rOPINIRole HCL 1 MG TABLET PO SCH ×4 (08:09→20:04)
[2022-04-12] MEDS: POTASSIUM CHLORIDE PWD 20 MEQ PACK PO SCH ×2 (08:09→20:03)
[2022-04-12] MEDS: THIAMINE HCL 100 MG TAB PO SCH ×2 (08:09→20:05)
[2022-04-12] MEDS: PANTOprazole 40 MG TAB PO SCH (08:10)
[2022-04-12] MEDS: CARBIDOPA/LEVODOPA 25/100MG TAB PO SCH ×4 (08:10→20:01)
[2022-04-12] MEDS: CEROVITE ADV FORMULA TAB PO SCH (08:10)
[2022-04-12] MEDS: METOPROLOL TARTRATE 25 MG TAB PO SCH (08:10)
[2022-04-12] MEDS: DOCUSATE SODIUM/SENNA 50/8.6MG TAB PO SCH (08:11)
[2022-04-12] MEDS: LINACLOTIDE 145 MCG CAPSULE PO SCH (08:11)
[2022-04-12] MEDS: OMEGA-3 (PURIFIED FISH OIL) 1 GM CAP PO SCH (08:11)
[2022-04-12] MEDS: ADVANCED PROBIOTIC 1250 MG CAPSULE PO SCH (08:11)
[2022-04-12] MEDS: FLUTICASONE/VILANTEROL 100/25MCG 14 PUFFS/INHALER INH SCH (08:11)
[2022-04-12] MEDS: ATORVASTATIN 20 MG TAB PO SCH (08:12)
[2022-04-12] MEDS: IPRATROPIUM BROMIDE NASAL SPRAY 0.06% 15ML NAE SCH ×4 (08:12→20:01)
[2022-04-12] MEDS: POLYETHYLENE (MIRALAX) 17 GM PACK PO SCH (08:12)
--- NOTE | 2022-04-12 10:41 | Hospitalist Progress Note ---
Date of Service April 12, 2022 Assessment & Plan (1) Weakness: (2) Ambulatory dysfunction: Plan: Patient was brought to the ER for ambulatory dysfunction and weakness after Adult Protective Services found her sitting in a chair and not able to care for herself. LE edema Swelling and skin changes are chronic to some degree at baseline Doppler showed no lower leg fluid collection to suggest hematoma. b/L edema No signs of infection at this time and just finished course of abx on 04/07/2022 Has been getting lasix around the clock Swelling clinically improves Will hold lasix due to low BP today Ambulatory dysfunction Generalized weakness H/O R rotator cuff tear --plan for surgery as outpatient Shoulder Xray showed no acute bony abnormality is identified. fall precautions Continue PT/OT eval Waiting for placement JAEL Due to dehydration from poor intake Cr 1.8>>>1.3>1.04>0.94--->0.70 Avoid nephrotoxic agents as able Monitor renal function Monitor volume status IV fluids discontinued 04/04 Restarted on Lasix 04/05/2022 - switched to IV lasix 04/08/2022 due to worsening LE edema - continue for now (04/09/2022) Hold lasix today UTI-POA H/O multiple UTIs in the past Urine culture growing Klebsiella pneumonia Rocephin - s/p 5 day course ended 04/07/2022 Hypokalemia K 3.7 today Complete monitor electrolytes Chronic elevated troponin Possible related to elevate CK level Troponin 81 on admission Echo 02/08/2022: Mild LVH, EF: 60-65%, mild aortic regurgitation Continue metoprolol and plavix Denies any chest pain Continue monitor Hypercoagulable state - initially INR supratherapeutic on admission and coumadin was held - INR normalized - Resumed Coumadin 04/05/2022 - daily INR while inpatient - trending up - no signs of bleeding - FOBT negative 04/08/2022 - INR 1.5 today Chronic diastolic heart failure: Lasix initially held due to JAEL Monitor volume status She has been on IV lasix since 04/08 stable Parkinson's: Continue carbidopa levodopa HTN: Continue metoprolol succinate HLD: Continue statin Hypothyroidism: Continue levothyroxine Chronic pain: Continue home meds RLS: Continue ropinirole Chronic anemia: monitor CBC Hgb stable Anemia work up indicating AOC No obvious source of bleeding FOBT negative Monitor Asthma: No signs acute exacerbation Continue home inhalers History gastric bypass History GERD: Continue PPI H/O Edenilson-Danlos syndrome stable DVT Px: Coumadin, INR 1.5 today Code Status Full code Admission and Anticipated Discharge Date Admission Date: April 02, 2022 Subjective Pt was seen and examined for follow up She said last night she was up all night to urinate Denies any chest pain, palpitation, dizziness and SOB Review of Systems Review of Systems: All systems reviewed & are unremarkable except as noted in Subjective Physical Exam Physical Exam: General- No acute distress, inttermittent tearful Head- atraumatic Eyes- PERRL, EOMI, ENT- oropharynx clear Neck- supple, no JVD Lungs- clear to auscultation Heart- regular rhythm; + murmur Abdomen- normal bowel sounds, soft, nontender Extremities- +edema, RUE swelling +multiple scattered ecchymosis in extremities Neuro- alert, oriented x 3; PERRL, EOMI; no facial palsy; no dysarthria Skin- warm & dry Results & Data Results & [facility] ([facility]) Vital Signs (Past 12 Hours) Vital Signs Temp Pulse Pulse Resp BP Pulse Ox O2 Del Method 04/12/22 07:55 36.5 C 83 16 93/60 L 96 Room Air 04/12/22 06:23 75 04/12/22 02:55 36.6 C 85 18 96/62 L 97 Room Air 04/11/22 22:52 36.4 C L 84 16 100/63 99 Room Air
[2022-04-12] MEDS: BENZOCAINE 20% (ORAJEL) 11.9 GM TUBE MT PRN (11:35)
[2022-04-12] MEDS: WARFARIN SOD 3 MG TAB PO SCH (16:14)
[2022-04-12] MEDS: MONTELUKAST SODIUM 10 MG TABLET PO SCH (20:03)
[2022-04-13] MEDS: oxyCODONE/ACETAMINOPHEN 5mg/325mg TAB PO PRN (00:27)
[2022-04-13] MEDS: LEVOTHYROXINE SODIUM 50 MCG TABLET PO SCH (05:34)
[2022-04-13] MEDS: CARBIDOPA/LEVODOPA 25/100MG TAB PO SCH ×4 (07:44→20:06)
[2022-04-13] MEDS: CHECK BUPRENORPHINE PATCH SCH ×3 (07:44→23:11)
[2022-04-13] MEDS: DOCUSATE SODIUM/SENNA 50/8.6MG TAB PO SCH ×2 (07:44→22:03)
[2022-04-13] MEDS: rOPINIRole HCL 1 MG TABLET PO SCH ×4 (07:44→20:11)
[2022-04-13] MEDS: THIAMINE HCL 100 MG TAB PO SCH ×2 (07:45→20:12)
[2022-04-13] MEDS: METOPROLOL TARTRATE 25 MG TAB PO SCH ×2 (07:45→07:56)
[2022-04-13] MEDS: METAXALONE 800 MG TABLET PO SCH ×3 (07:45→20:08)
[2022-04-13] MEDS: LINACLOTIDE 145 MCG CAPSULE PO SCH (07:46)
[2022-04-13] MEDS: PANTOprazole 40 MG TAB PO SCH (07:46)
[2022-04-13] MEDS: POTASSIUM CHLORIDE PWD 20 MEQ PACK PO SCH ×2 (07:46→20:10)
[2022-04-13] MEDS: OMEGA-3 (PURIFIED FISH OIL) 1 GM CAP PO SCH (07:47)
[2022-04-13] MEDS: FLUTICASONE/VILANTEROL 100/25MCG 14 PUFFS/INHALER INH SCH (07:47)
[2022-04-13] MEDS: IPRATROPIUM BROMIDE NASAL SPRAY 0.06% 15ML NAE SCH ×4 (07:47→20:07)
[2022-04-13] MEDS: ADVANCED PROBIOTIC 1250 MG CAPSULE PO SCH (07:47)
[2022-04-13] MEDS: ATORVASTATIN 20 MG TAB PO SCH (07:47)
[2022-04-13] MEDS: CEROVITE ADV FORMULA TAB PO SCH (07:48)
[2022-04-13 09:13] LABS: INR 1.4 (0.9-1.1); Prothrombin Time 14.5 Seconds (9.0-12.0)
[2022-04-13] MEDS: WARFARIN SOD 3 MG TAB PO SCH (15:57)
[2022-04-13] MEDS: MONTELUKAST SODIUM 10 MG TABLET PO SCH (20:09)
--- NOTE | 2022-04-13 20:39 | Hospitalist Progress Note ---
Date of Service April 13, 2022 Assessment & Plan (1) Weakness: (2) Ambulatory dysfunction: Plan: Patient was brought to the ER for ambulatory dysfunction and weakness after Adult Protective Services found her sitting in a chair and not able to care for herself. LE edema Swelling and skin changes are chronic to some degree at baseline Doppler showed no lower leg fluid collection to suggest hematoma. b/L edema No signs of infection at this time and just finished course of abx on 04/07/2022 Has been getting lasix around the clock Swelling clinically improves Will resume lasix Ambulatory dysfunction Generalized weakness H/O R rotator cuff tear --plan for surgery as outpatient Shoulder Xray showed no acute bony abnormality is identified. fall precautions Continue PT/OT eval Waiting for placement JAEL Due to dehydration from poor intake Cr 1.8>>>1.3>1.04>0.94--->0.70 Avoid nephrotoxic agents as able Monitor renal function Monitor volume status IV fluids discontinued 04/04 Restarted on Lasix 04/05/2022 - switched to IV lasix 04/08/2022 due to worsening LE edema - continue for now (04/09/2022) Stable UTI H/O multiple UTIs in the past Urine culture growing Klebsiella pneumonia Rocephin - s/p 5 day course ended 04/07/2022 Hypokalemia K 3.7 stable Complete monitor electrolytes Chronic elevated troponin Possible related to elevate CK level Troponin 81 on admission Echo 02/08/2022: Mild LVH, EF: 60-65%, mild aortic regurgitation Continue metoprolol and plavix Denies any chest pain Continue monitor Hypercoagulable state - initially INR supratherapeutic on admission and coumadin was held - INR normalized - Resumed Coumadin 04/05/2022 - daily INR while inpatient - trending up - no signs of bleeding - FOBT negative 04/08/2022 - INR 1.4 today Chronic diastolic heart failure: Lasix initially held due to JAEL Monitor volume status She has been on IV lasix since 04/08 stable Parkinson's: Continue carbidopa levodopa HTN: Continue metoprolol succinate HLD: Continue statin Hypothyroidism: Continue levothyroxine Chronic pain: Continue home meds RLS: Continue ropinirole Chronic anemia: monitor CBC Hgb stable Anemia work up indicating AOC No obvious source of bleeding FOBT negative Monitor Asthma: No signs acute exacerbation Continue home inhalers History gastric bypass History GERD: Continue PPI H/O Edenilson-Danlos syndrome stable DVT Px: Coumadin, INR 1.4 today will add heparin subq BID until INR at goal Code Status Full code Admission and Anticipated Discharge Date Admission Date: April 02, 2022 Subjective Pt was seen and examined for follow up Sitting in bed with no acute distress Pt walked in the hallway with therapy today Denies any chest pain, palpitation, dizziness and SOB Review of Systems Review of Systems: All systems reviewed & are unremarkable except as noted in Subjective Physical Exam Physical Exam: General- No acute distress, inttermittent tearful Head- atraumatic Eyes- PERRL, EOMI, ENT- oropharynx clear Neck- supple, no JVD Lungs- clear to auscultation Heart- regular rhythm; + murmur Abdomen- normal bowel sounds, soft, nontender Extremities- +edema, RUE swelling +multiple scattered ecchymosis in extremities Neuro- alert, oriented x 3; PERRL, EOMI; no facial palsy; no dysarthria Skin- warm & dry Results & Data Results & Data ([facility]) Vital Signs (Past 12 Hours) Vital Signs Temp Pulse Pulse Resp BP Pulse Ox O2 Del Method 04/13/22 19:43 36.6 C 79 18 97/58 L 97 Room Air 04/13/22 16:13 36.8 C 80 17 111/70 95 Room Air 04/13/22 16:02 Room Air 04/13/22 15:38 91 H 04/13/22 12:14 36.6 C 69 17 92/53 L 98 Room Air 04/13/22 11:33 98 H
[2022-04-13] MEDS: HEPARIN SOD 5,000 UNIT/0.5 ML VIAL SQ SCH (21:34)
[2022-04-13] MEDS: BENZOCAINE 20% (ORAJEL) 11.9 GM TUBE MT PRN (21:41)
[2022-04-14] MEDS: ACETAMINOPHEN 325 MG TAB PO PRN ×2 (01:53→09:05)
[2022-04-14] MEDS: LEVOTHYROXINE SODIUM 50 MCG TABLET PO SCH (05:32)
[2022-04-14 07:04] LABS: Hematocrit (blood only) 26.3 % (34.1-44.9); Hemoglobin 8.4 g/dl (12.0-16.0); Mean Corpuscular Hemoglobin 30.3 pg (25.0-34.0); Mean Corpuscular Hgb Conc 31.9 g/dL (32.0-36.0); Mean Corpuscular Volume 94.9 fL (80.0-100.0); Mean Platelet Volume 9.8 fL (9.4-12.3); Platelet Count 295 K/uL (130-400); RDW Standard Deviation 58.8 fL (36.4-46.3); Red Blood Count 2.77 M/uL (3.93-5.22); White Blood Count 7.08 K/ul (4.8-10.8)
[2022-04-14 07:18] LABS: INR 1.3 (0.9-1.1); Prothrombin Time 13.2 Seconds (9.0-12.0)
[2022-04-14 07:32] LABS: BUN Creatinine Ratio 28.6 (10-20); Creatinine Clr Calc Pharmacy 66.8 ml/min; Est GFR (African American) 100.3 ml/min; Est GFR (Non-African American) 86.6 ml/min; Potassium 3.8 mmol/L (3.5-5.1)
[2022-04-14] MEDS: DOCUSATE SODIUM/SENNA 50/8.6MG TAB PO SCH ×2 (08:49→21:54)
[2022-04-14] MEDS: PANTOprazole 40 MG TAB PO SCH (08:50)
[2022-04-14] MEDS: ADVANCED PROBIOTIC 1250 MG CAPSULE PO SCH (08:50)
[2022-04-14] MEDS: METOPROLOL TARTRATE 25 MG TAB PO SCH (08:50)
[2022-04-14] MEDS: ATORVASTATIN 20 MG TAB PO SCH (08:50)
[2022-04-14] MEDS: CEROVITE ADV FORMULA TAB PO SCH (08:50)
[2022-04-14] MEDS: rOPINIRole HCL 1 MG TABLET PO SCH ×4 (08:51→21:53)
[2022-04-14] MEDS: THIAMINE HCL 100 MG TAB PO SCH ×2 (08:51→21:52)
[2022-04-14] MEDS: METAXALONE 800 MG TABLET PO SCH ×3 (08:51→21:54)
[2022-04-14] MEDS: POTASSIUM CHLORIDE PWD 20 MEQ PACK PO SCH ×2 (08:51→21:54)
[2022-04-14] MEDS: CARBIDOPA/LEVODOPA 25/100MG TAB PO SCH ×4 (08:52→21:55)
[2022-04-14] MEDS: LINACLOTIDE 145 MCG CAPSULE PO SCH (08:53)
[2022-04-14] MEDS: OMEGA-3 (PURIFIED FISH OIL) 1 GM CAP PO SCH (08:53)
[2022-04-14] MEDS: FLUTICASONE/VILANTEROL 100/25MCG 14 PUFFS/INHALER INH SCH (08:53)
[2022-04-14] MEDS: IPRATROPIUM BROMIDE NASAL SPRAY 0.06% 15ML NAE SCH ×4 (08:54→21:55)
[2022-04-14] MEDS: CHECK BUPRENORPHINE PATCH SCH ×3 (08:54→22:31)
[2022-04-14] MEDS: HEPARIN SOD 5,000 UNIT/0.5 ML VIAL SQ SCH ×2 (09:01→21:53)
[2022-04-14] MEDS: FUROSEMIDE 40 MG TAB PO SCH (10:11)
[2022-04-14] MEDS: BUPRENORPHINE TD SCH (16:01)
--- NOTE | 2022-04-14 17:00 | Hospitalist Progress Note ---
Date of Service April 14, 2022 Assessment & Plan (1) Weakness: (2) Ambulatory dysfunction: Plan: Patient was brought to the ER for ambulatory dysfunction and weakness after Adult Protective Services found her sitting in a chair and not able to care for herself. LE edema Swelling and skin changes are chronic to some degree at baseline Doppler showed no lower leg fluid collection to suggest hematoma. b/L edema No signs of infection at this time and just finished course of abx on 04/07/2022 Improved with lasix which is being given daily. Ambulatory dysfunction Generalized weakness H/O R rotator cuff tear --plan for surgery as outpatient Shoulder Xray showed no acute bony abnormality is identified. fall precautions Continue PT/OT eval Waiting for placement JAEL Due to dehydration from poor intake -resolved. Cr 1.8>>>1.3>1.04>0.94--->0.70 Avoid nephrotoxic agents as able Monitor renal function Monitor volume status IV fluids discontinued 04/04 Restarted on Lasix 04/05/2022 - switched to IV lasix 04/08/2022 due to worsening LE edema - continue for now (04/09/2022) Stable UTI H/O multiple UTIs in the past Urine culture growing Klebsiella pneumonia Rocephin - s/p 5 day course ended 04/07/2022 Hypokalemia-resolved Chronic elevated troponin Possible related to elevate CK level Troponin 81 on admission Echo 02/08/2022: Mild LVH, EF: 60-65%, mild aortic regurgitation Continue metoprolol and plavix Denies any chest pain -no further workup Hypercoagulable state - initially INR supratherapeutic on admission and coumadin was held - INR normalized - Resumed Coumadin 04/05/2022 - daily INR while inpatient - trending up - no signs of bleeding - FOBT negative 04/08/2022 - INR still subtherapeutic. -increased warfarin 3mg to 5mg daily. Chronic diastolic heart failure: Lasix initially held due to JAEL Euvolemic Cont PO lasix Parkinson's: Continue carbidopa levodopa HTN: chronic, at goal. Continue metoprolol succinate Hypothyroidism: Continue levothyroxine RLS: Continue ropinirole Chronic anemia: Hgb stable No obvious source of bleeding Asthma: No signs acute exacerbation Continue home inhalers History gastric bypass with chronic constipation. Cont home linzess. History GERD: Continue PPI H/O Edenilson-Danlos syndrome stable DVT Px: Coumadin, cont heparin subq BID until INR at goal Code Status Full code Dispo-awaiting placement. Leny Breen DO [facility] Hospitalist Admission and Anticipated Discharge Date Admission Date: April 02, 2022 Subjective 72-year-old female admitted for weakness and inability to care for herself. She is emotionally upset because she has signed away her animals to another person. She is tearful and reports some chest discomfort related to this emotional distress. She reports intermittent abdominal discomfort without a clear pattern. She is tolerating p.o. and reluctantly awaiting placement. Review of Systems Review of Systems: All systems reviewed and negative except as indicated abo ve. Physical Exam Physical Exam: CONSTITUTIONAL: WNWD, vitals as above, she is sitting on side of bed with a heavy blanket covering her head. She is tearful. EYES: normal conjunctivae, no scleral icterus ENT: external ear and nose normal,MMM NECK: trachea midline, RESPIRATORY: clear to auscultation bilaterally, no crackles, rales or wheezes, normal respiratory effort CARDIOVASCULAR: regular rate and rhythm, S1 and 2 heard without murmurs, gallops or rubs, no JVD, no peripheral edema CHEST: inspection of chest was normal GASTROINTESTINAL: soft, nontender, ND, no guarding. MUSCULOSKELETAL: strength 5/5 throughout, head is normocephalic and atraumatic, SKIN: warm and dry NEUROLOGIC: CN 2-12 grossly intact, no sensory deficit, normal cognition, normal speech, no tremor PSYCHIATRIC: alert cooperative and oriented to person, place and time. Results & Data Results & Data ([facility]) Vital Signs (Past 12 Hours) Vital Signs Temp Pulse Pulse Resp BP Pulse Ox O2 Del Method 04/14/22 16:38 69 04/14/22 16:17 36.3 C L 68 16 115/72 100 Room Air 04/14/22 11:49 36.8 C 65 16 92/64 L 99 Room Air 04/14/22 07:44 36.5 C 78 17 101/60 94 Room Air 04/14/22 07:22 85 Laboratory Results Short CBC 04/14/22 Range/Units 06:10 WBC 7.08 (4.8-10.8) K/ul Hgb 8.4 L (12.0-16.0) g/dl Hct 26.3 L (34.1-44.9) % Plt Count 295 (130-400) K/uL BMP 04/14/22 06:10 Sodium 137 Potassium 3.8 Chloride 106 Carbon Dioxide 25 BUN 20 Creatinine 0.70 Glucose 93 Calcium 9.0 Medications Administered Current Inpatient Medications Acetaminophen (Acetaminophen 325 Mg Tab) 650 mg PO Q6H PRN PRN Reason: Fever/pain Stop: 05/03/22 00:39 Last Admin: 04/14/22 09:05 Dose: 650 mg Albuterol (Albuterol Hfa 8 Gm Inhaler) 2 puffs INH Q6 PRN PRN Reason: Shortness Of Breath Or Wheezin Stop: 05/02/22 21:32 Albuterol (Albut/Ipratrop 3mg/0.5mg Neb 3 Ml Vial) 3 ml INH QIDR PRN; Protocol PRN Reason: Shortness Of Breath Or Wheezing Stop: 05/02/22 21:32 Atorvastatin Calcium (Atorvastatin 20 Mg Tab) 20 mg PO QAM ASHUTOSH Stop: 05/03/22 08:59 Last Admin: 04/14/22 08:50 Dose: 20 mg Benzocaine (Benzocaine 20% (Orajel) 11.9 Gm Tube) 1 appln MT TID PRN PRN Reason: oral ulcer pain Stop: 05/04/22 13:02 Last Admin: 04/13/22 21:41 Dose: 1 appln Buprenorphine HCl (Pt's Own Med: Buprenorphine 15 Mcg/Patch Tdsy) 15 mcg TD Sa@1500 ASHUTOSH Stop: 05/07/22 14:59 Last Admin: 04/14/22 16:01 Dose: 15 mcg Carbidopa/Levodopa (Carbidopa/Levodopa 25/100mg Tab) 1 tab PO QID ASHUTOSH Stop: 05/02/22 21:32 Last Admin: 04/14/22 12:17 Dose: 1 tab Fish Oil ([place]-3 (Purified Fish Oil) 1 Gm Cap) 1 gm PO DAILY ASHUTOSH Stop: 05/03/22 08:59 Last Admin: 04/14/22 08:53 Dose: 1 gm Fluticasone/Vilanterol (Fluticasone/Vilanterol 100/25mcg 14 Puffs/Inhaler) 1 puffs INH DAILY ASHUTOSH Stop: 05/03/22 08:59 Last Admin: 10/08/22 08:53 Dose: 1 puffs Furosemide (Furosemide 40 Mg Tab) 40 mg PO QAM ASHUTOSH Stop: 05/05/22 09:59 Last Admin: 04/14/22 10:11 Dose: 40 mg Heparin Sodium (Porcine) (Heparin Sod 5,000 Unit/0.5 Ml Vial) 5,000 units SQ Q12 ASHUTOSH Stop: 05/13/22 20:59 Last Admin: 04/14/22 09:01 Dose: 5,000 units Ipratropium Guin (Ipratropium Guin Nasal [place] 0.06% 15ml) 1 sprays ELYSE QID ASHUTOSH Stop: 05/02/22 21:32 Last Admin: 04/14/22 12:18 Dose: 1 sprays Lactobacillus Acidophilus (Advanced Probiotic 1250 Mg Capsule) 2 cap PO DAILY ASHUTOSH Stop: 05/03/22 08:59 Last Admin: 04/14/22 08:50 Dose: 2 cap Levothyroxine Sodium (Levothyroxine Sodium 50 Mcg Tablet) 50 mcg PO DAILYBB ASHUTOSH Stop: 05/03/22 06:29 Last Admin: 04/14/22 05:32 Dose: 50 mcg Linaclotide (Linaclotide 145 Mcg Capsule) 290 mcg PO DAILY ASHUTOSH Stop: 05/03/22 08:59 Last Admin: 04/14/22 08:53 Dose: 290 mcg Metaxalone (Metaxalone 800 Mg Tablet) 400 mg PO TID ASHUTOSH Stop: 05/06/22 13:59 Last Admin: 04/14/22 15:43 Dose: 400 mg Metoprolol Tartrate (Metoprolol Tartrate 25 Mg Tab) 12.5 mg PO DAILY ASHUTOSH Stop: 05/03/22 08:59 Last Admin: 04/14/22 08:50 Dose: 12.5 mg Miscellaneous (Remove & Waste Butrans Patch 1 Ea Ea) 1 each N/A Sa@1459 ASHUTOSH Stop: 05/07/22 14:58 Last Admin: 04/14/22 16:02 Dose: 1 each Miscellaneous (Check Buprenorphine Patch) 1 each N/A QS ASHUTOSH Stop: 05/07/22 15:59 Last Admin: 04/14/22 08:54 Dose: 1 each Montelukast Sodium (Montelukast Sodium 10 Mg Tablet) 10 mg PO HS ASHUTOSH Stop: 05/02/22 21:32 Last Admin: 04/13/22 20:09 Dose: 10 mg Multivitamins/Minerals (Cerovite Adv Formula Tab) 1 tab PO DAILY ASHUTOSH Stop: 05/03/22 08:59 Last Admin: 04/14/22 08:50 Dose: 1 tab Pantoprazole Sodium (Pantoprazole 40 Mg Tab) 40 mg PO DAILY ASHUTOSH Stop: 05/03/22 08:59 Last Admin: 04/14/22 08:50 Dose: 40 mg Potassium Chloride (Potassium Chloride Pwd 20 Meq Pack) 20 meq PO BID ASHUTOSH Stop: 05/02/22 21:32 Last Admin: 04/14/22 08:51 Dose: 20 meq Ropinirole HCl (Ropinirole Hcl 1 Mg Tablet) 1 mg PO TID@0800,1200,1600 ASHUTOSH Stop: 05/03/22 07:59 Last Admin: 04/14/22 12:17 Dose: 1 mg Ropinirole HCl (Ropinirole Hcl 1 Mg Tablet) 2 mg PO HS ASHUTOSH Stop: 05/02/22 21:32 Last Admin: 04/13/22 20:11 Dose: 2 mg Senna/Docusate Sodium (Docusate Sodium/Senna 50/8.6mg Tab) 1 tab PO BID ASHUTOSH Stop: 05/13/22 21:44 Last Admin: 04/14/22 08:49 Dose: 1 tab Thiamine HCl (Thiamine Hcl 100 Mg Tab) 100 mg PO BID ASHUTOSH Stop: 05/02/22 21:32 Last Admin: 04/14/22 08:51 Dose: 100 mg Warfarin Sodium (Warfarin Sod 3 Mg Tab) 3 mg PO DAILY@1600 ASHUTOSH Stop: 05/12/22 15:59 Last Admin: 04/13/22 15:57 Dose: 3 mg
[2022-04-14] MEDS: WARFARIN SOD 3 MG TAB PO SCH (17:13)
[2022-04-14] MEDS: MONTELUKAST SODIUM 10 MG TABLET PO SCH (21:53)
[2022-04-14] MEDS: BENZOCAINE 20% (ORAJEL) 11.9 GM TUBE MT PRN (22:09)
[2022-04-15] MEDS: ACETAMINOPHEN 325 MG TAB PO PRN (02:03)
[2022-04-15] MEDS ORDERED: LORATADINE 10 MG TAB PO ONE (05:30)
[2022-04-15] MEDS: LEVOTHYROXINE SODIUM 50 MCG TABLET PO SCH (05:44)
[2022-04-15 07:32] LABS: INR 1.4 (0.9-1.1); Prothrombin Time 14.6 Seconds (9.0-12.0)
[2022-04-15] MEDS: CHECK BUPRENORPHINE PATCH SCH ×3 (08:22→23:21)
[2022-04-15] MEDS: CARBIDOPA/LEVODOPA 25/100MG TAB PO SCH ×4 (08:23→20:09)
[2022-04-15] MEDS: METAXALONE 800 MG TABLET PO SCH ×3 (08:24→20:11)
[2022-04-15] MEDS: POTASSIUM CHLORIDE PWD 20 MEQ PACK PO SCH ×2 (08:26→20:13)
[2022-04-15] MEDS: DOCUSATE SODIUM/SENNA 50/8.6MG TAB PO SCH ×2 (08:26→20:18)
[2022-04-15] MEDS: HEPARIN SOD 5,000 UNIT/0.5 ML VIAL SQ SCH ×2 (08:27→20:10)
[2022-04-15] MEDS: THIAMINE HCL 100 MG TAB PO SCH ×2 (08:27→20:14)
[2022-04-15] MEDS: ATORVASTATIN 20 MG TAB PO SCH (08:28)
[2022-04-15] MEDS: FUROSEMIDE 40 MG TAB PO SCH (08:28)
[2022-04-15] MEDS: METOPROLOL TARTRATE 25 MG TAB PO SCH (08:28)
[2022-04-15] MEDS: ADVANCED PROBIOTIC 1250 MG CAPSULE PO SCH (08:29)
[2022-04-15] MEDS: LINACLOTIDE 145 MCG CAPSULE PO SCH (08:30)
[2022-04-15] MEDS: PANTOprazole 40 MG TAB PO SCH (08:30)
[2022-04-15] MEDS: rOPINIRole HCL 1 MG TABLET PO SCH ×4 (08:30→20:13)
[2022-04-15] MEDS: OMEGA-3 (PURIFIED FISH OIL) 1 GM CAP PO SCH (08:31)
[2022-04-15] MEDS: IPRATROPIUM BROMIDE NASAL SPRAY 0.06% 15ML NAE SCH ×4 (08:31→20:10)
[2022-04-15] MEDS: CEROVITE ADV FORMULA TAB PO SCH (08:31)
[2022-04-15] MEDS: FLUTICASONE/VILANTEROL 100/25MCG 14 PUFFS/INHALER INH SCH (08:32)
[2022-04-15] MEDS ORDERED: hydrOXYzine HCl 10 MG TAB PO ONE (10:10)
[2022-04-15] MEDS: WARFARIN SOD 5 MG TAB PO SCH (17:48)
--- NOTE | 2022-04-15 18:58 | Hospitalist Progress Note ---
Date of Service April 15, 2022 Assessment & Plan (1) Weakness: (2) Ambulatory dysfunction: Plan: Patient was brought to the ER for ambulatory dysfunction and weakness after Adult Protective Services found her sitting in a chair and not able to care for herself. LE edema Swelling and skin changes are chronic to some degree at baseline Doppler showed no lower leg fluid collection to suggest hematoma. b/L edema No signs of infection at this time and just finished course of abx on 04/07/2022 Improved with lasix which is being given daily. Ambulatory dysfunction Generalized weakness H/O R rotator cuff tear --plan for surgery as outpatient Shoulder Xray showed no acute bony abnormality is identified. fall precautions Continue PT/OT eval Waiting for placement JAEL Due to dehydration from poor intake -resolved. Cr 1.8>>>1.3>1.04>0.94--->0.70 Avoid nephrotoxic agents as able Monitor renal function Monitor volume status IV fluids discontinued 04/04 Restarted on Lasix 04/05/2022 - switched to IV lasix 04/08/2022 due to worsening LE edema - continue for now (04/09/2022) Stable UTI H/O multiple UTIs in the past Urine culture growing Klebsiella pneumonia Rocephin - s/p 5 day course ended 04/07/2022 Hypokalemia-resolved Chronic elevated troponin Possible related to elevate CK level Troponin 81 on admission Echo 02/08/2022: Mild LVH, EF: 60-65%, mild aortic regurgitation Continue metoprolol and plavix Denies any chest pain -no further workup Hypercoagulable state - initially INR supratherapeutic on admission and coumadin was held - INR normalized - Resumed Coumadin 04/05/2022 - daily INR while inpatient - trending up - no signs of bleeding - FOBT negative 04/08/2022 - INR still subtherapeutic at 1.4 -increased warfarin 3mg to 5mg daily. Chronic diastolic heart failure: Lasix initially held due to JAEL Euvolemic Cont PO lasix Parkinson's: Continue carbidopa levodopa HTN: chronic, at goal. Continue metoprolol succinate Hypothyroidism: Continue levothyroxine RLS: Continue ropinirole Chronic anemia: Hgb stable No obvious source of bleeding Asthma: No signs acute exacerbation Continue home inhalers History gastric bypass with chronic constipation. Cont home linzess. History GERD: Continue PPI H/O Edenilson-Danlos syndrome stable DVT Px: Coumadin, cont heparin subq BID until INR at goal Code Status Full code Dispo-awaiting placement. Admission and Anticipated Discharge Date Admission Date: April 02, 2022 Subjective Pt was seen and examined for follow up Sitting in bed with no acute distress She said that she upset because she had BM and accident in her bed She said that she feels anxious and asked for hydrolyzine Denies any chest pain, palpitation, dizziness and SOB Review of Systems Review of Systems: All systems reviewed & are unremarkable except as noted in Subjective Physical Exam Physical Exam: General- No acute distress, inttermittent tearful Head- atraumatic Eyes- PERRL, EOMI, ENT- oropharynx clear Neck- supple, no JVD Lungs- clear to auscultation Heart- regular rhythm; + murmur Abdomen- normal bowel sounds, soft, nontender Extremities- +edema, RUE swelling +multiple scattered ecchymosis in extremities Neuro- alert, oriented x 3; PERRL, EOMI; no facial palsy; no dysarthria Skin- warm & dry Results & Data Results & Data ([facility]) Vital Signs (Past 12 Hours) Vital Signs Temp Pulse Pulse Resp BP Pulse Ox O2 Del Method 04/15/22 15:59 36.3 C L 79 20 109/73 97 Room Air 04/15/22 15:31 67 04/15/22 07:19 88
[2022-04-15] MEDS: MONTELUKAST SODIUM 10 MG TABLET PO SCH (20:12)
[2022-04-15] MEDS ORDERED: hydrOXYzine HCl 10 MG TAB PO STA (20:30)
[2022-04-16] MEDS: LEVOTHYROXINE SODIUM 50 MCG TABLET PO SCH (05:31)
[2022-04-16 06:17] LABS: Hematocrit (blood only) 28.9 % (34.1-44.9); Mean Corpuscular Hemoglobin 30.2 pg (25.0-34.0); Mean Corpuscular Hgb Conc 31.1 g/dL (32.0-36.0); Mean Platelet Volume 9.7 fL (9.4-12.3); Platelet Count 305 K/uL (130-400); RDW Standard Deviation 59.9 fL (36.4-46.3); Red Blood Count 2.98 M/uL (3.93-5.22); White Blood Count 7.69 K/ul (4.8-10.8)
[2022-04-16 06:55] LABS: INR 1.6 (0.9-1.1); Prothrombin Time 16.6 Seconds (9.0-12.0)
[2022-04-16] MEDS: LINACLOTIDE 145 MCG CAPSULE PO SCH (08:33)
[2022-04-16] MEDS: DOCUSATE SODIUM/SENNA 50/8.6MG TAB PO SCH ×2 (08:33→20:20)
[2022-04-16] MEDS: CHECK BUPRENORPHINE PATCH SCH ×3 (08:33→20:26)
[2022-04-16] MEDS: PANTOprazole 40 MG TAB PO SCH (08:34)
[2022-04-16] MEDS: CEROVITE ADV FORMULA TAB PO SCH (08:34)
[2022-04-16] MEDS: METOPROLOL TARTRATE 25 MG TAB PO SCH (08:34)
[2022-04-16] MEDS: ATORVASTATIN 20 MG TAB PO SCH (08:34)
[2022-04-16] MEDS: OMEGA-3 (PURIFIED FISH OIL) 1 GM CAP PO SCH (08:34)
[2022-04-16] MEDS: rOPINIRole HCL 1 MG TABLET PO SCH ×4 (08:35→20:23)
[2022-04-16] MEDS: FLUTICASONE/VILANTEROL 100/25MCG 14 PUFFS/INHALER INH SCH (08:36)
[2022-04-16] MEDS: FUROSEMIDE 40 MG TAB PO SCH (08:36)
[2022-04-16] MEDS: THIAMINE HCL 100 MG TAB PO SCH ×2 (08:36→20:22)
[2022-04-16] MEDS: ADVANCED PROBIOTIC 1250 MG CAPSULE PO SCH (08:36)
[2022-04-16] MEDS: HEPARIN SOD 5,000 UNIT/0.5 ML VIAL SQ SCH ×2 (08:37→20:20)
[2022-04-16] MEDS: IPRATROPIUM BROMIDE NASAL SPRAY 0.06% 15ML NAE SCH ×4 (08:37→20:21)
[2022-04-16] MEDS: METAXALONE 800 MG TABLET PO SCH ×3 (08:38→20:21)
[2022-04-16] MEDS: POTASSIUM CHLORIDE PWD 20 MEQ PACK PO SCH ×2 (08:39→20:22)
[2022-04-16] MEDS: CARBIDOPA/LEVODOPA 25/100MG TAB PO SCH ×4 (08:39→20:20)
[2022-04-16] MEDS: hydrOXYzine HCl 10 MG TAB PO PRN (13:03)
[2022-04-16] MEDS: WARFARIN SOD 5 MG TAB PO SCH (16:57)
[2022-04-16] MEDS: MONTELUKAST SODIUM 10 MG TABLET PO SCH (20:21)
--- NOTE | 2022-04-16 20:38 | Hospitalist Progress Note ---
Date of Service April 16, 2022 Assessment & Plan (1) Weakness: (2) Ambulatory dysfunction: Plan: Patient was brought to the ER for ambulatory dysfunction and weakness after Adult Protective Services found her sitting in a chair and not able to care for herself. LE edema Swelling and skin changes are chronic to some degree at baseline Doppler showed no lower leg fluid collection to suggest hematoma. b/L edema No signs of infection at this time and just finished course of abx on 04/07/2022 Improved with lasix which is being given daily. Ambulatory dysfunction Generalized weakness H/O R rotator cuff tear --plan for surgery as outpatient Shoulder Xray showed no acute bony abnormality is identified. fall precautions Continue PT/OT eval Waiting for placement JAEL Due to dehydration from poor intake -resolved. Cr 1.8>>>1.3>1.04>0.94--->0.70 Avoid nephrotoxic agents as able Monitor renal function Monitor volume status IV fluids discontinued 04/04 Restarted on Lasix 04/05/2022 - switched to IV lasix 04/08/2022 due to worsening LE edema - continue for now (04/09/2022) Stable UTI H/O multiple UTIs in the past Urine culture growing Klebsiella pneumonia Rocephin - s/p 5 day course ended 04/07/2022 Hypokalemia-resolved Chronic elevated troponin Possible related to elevate CK level Troponin 81 on admission Echo 02/08/2022: Mild LVH, EF: 60-65%, mild aortic regurgitation Continue metoprolol and plavix Denies any chest pain -no further workup Hypercoagulable state - initially INR supratherapeutic on admission and coumadin was held - INR normalized - Resumed Coumadin 04/05/2022 - daily INR while inpatient - trending up - no signs of bleeding - FOBT negative 04/08/2022 - INR still subtherapeutic at 1.6 -increased warfarin 3mg to 5mg daily. Chronic diastolic heart failure: Lasix initially held due to JAEL Euvolemic Cont PO lasix Parkinson's: Continue carbidopa levodopa HTN: chronic, at goal. Continue metoprolol succinate Hypothyroidism: Continue levothyroxine RLS: Continue ropinirole Chronic anemia: Hgb stable No obvious source of bleeding Asthma: No signs acute exacerbation Continue home inhalers History gastric bypass with chronic constipation. Cont home linzess. History GERD: Continue PPI H/O Edenilson-Danlos syndrome stable DVT Px: Coumadin, cont heparin subq BID until INR at goal Code Status Full code Dispo-awaiting placement. Admission and Anticipated Discharge Date Admission Date: April 02, 2022 Subjective Pt was seen and examined for follow up Lying in bed with no acute distress Denies any chest pain, palpitation, dizziness and SOB Review of Systems Review of Systems: All systems reviewed & are unremarkable except as noted in Subjective Physical Exam Physical Exam: General- No acute distress, inttermittent tearful Head- atraumatic Eyes- PERRL, EOMI, ENT- oropharynx clear Neck- supple, no JVD Lungs- clear to auscultation Heart- regular rhythm; + murmur Abdomen- normal bowel sounds, soft, nontender Extremities- +edema, RUE swelling +multiple scattered ecchymosis in extremities Neuro- alert, oriented x 3; PERRL, EOMI; no facial palsy; no dysarthria Skin- warm & dry Results & Data Results & Data ([facility]) Vital Signs (Past 12 Hours) Vital Signs Temp Pulse Pulse Resp BP Pulse Ox 04/16/22 16:33 67 04/16/22 12:12 36.5 C 76 14 100/58 L 100
[2022-04-17] MEDS: hydrOXYzine HCl 10 MG TAB PO PRN ×3 (01:04→13:48)
[2022-04-17] MEDS: LEVOTHYROXINE SODIUM 50 MCG TABLET PO SCH (05:46)
[2022-04-17 07:11] LABS: INR 2.2 (0.9-1.1); Prothrombin Time 22.3 Seconds (9.0-12.0)
[2022-04-17 07:21] LABS: BUN Creatinine Ratio 23.7 (10-20); Calcium 9.2 mg/dl (8.5-10.1); Creatinine Clr Calc Pharmacy 76.8 ml/min; Est GFR (African American) 106.1 ml/min; Est GFR (Non-African American) 91.6 ml/min; Potassium 3.1 mmol/L (3.5-5.1)
[2022-04-17] MEDS: FLUTICASONE/VILANTEROL 100/25MCG 14 PUFFS/INHALER INH SCH (08:06)
[2022-04-17] MEDS: CHECK BUPRENORPHINE PATCH SCH ×3 (08:06→20:56)
[2022-04-17] MEDS: PANTOprazole 40 MG TAB PO SCH (08:07)
[2022-04-17] MEDS: IPRATROPIUM BROMIDE NASAL SPRAY 0.06% 15ML NAE SCH ×4 (08:07→20:56)
[2022-04-17] MEDS: DOCUSATE SODIUM/SENNA 50/8.6MG TAB PO SCH ×2 (08:07→20:55)
[2022-04-17] MEDS: POTASSIUM CHLORIDE PWD 20 MEQ PACK PO SCH ×2 (08:08→20:53)
[2022-04-17] MEDS: rOPINIRole HCL 1 MG TABLET PO SCH ×4 (08:08→20:54)
[2022-04-17] MEDS: THIAMINE HCL 100 MG TAB PO SCH ×2 (08:08→20:55)
[2022-04-17] MEDS: HEPARIN SOD 5,000 UNIT/0.5 ML VIAL SQ SCH (08:09)
[2022-04-17] MEDS: CARBIDOPA/LEVODOPA 25/100MG TAB PO SCH ×4 (08:09→20:55)
[2022-04-17] MEDS: LINACLOTIDE 145 MCG CAPSULE PO SCH (08:10)
[2022-04-17] MEDS: ATORVASTATIN 20 MG TAB PO SCH (08:10)
[2022-04-17] MEDS: ADVANCED PROBIOTIC 1250 MG CAPSULE PO SCH (08:10)
[2022-04-17] MEDS: OMEGA-3 (PURIFIED FISH OIL) 1 GM CAP PO SCH (08:11)
[2022-04-17] MEDS: CEROVITE ADV FORMULA TAB PO SCH (08:11)
[2022-04-17] MEDS ORDERED: FUROSEMIDE 40 MG TAB PO ONE (08:30)
[2022-04-17] MEDS: METAXALONE 800 MG TABLET PO SCH ×3 (09:30→20:54)
[2022-04-17] MEDS: METOPROLOL TARTRATE 25 MG TAB PO SCH (09:33)
[2022-04-17] MEDS: WARFARIN SOD 5 MG TAB PO SCH (16:24)
[2022-04-17] MEDS: MONTELUKAST SODIUM 10 MG TABLET PO SCH (20:55)
[2022-04-17] MEDS ORDERED: POTASSIUM CHLORIDE CRTAB 20 MEQ TABCR PO STA (21:37)
--- NOTE | 2022-04-17 21:37 | Hospitalist Progress Note ---
Date of Service April 17, 2022 Assessment & Plan (1) Weakness: (2) Ambulatory dysfunction: Plan: Patient was brought to the ER for ambulatory dysfunction and weakness after Adult Protective Services found her sitting in a chair and not able to care for herself. LE edema Swelling and skin changes are chronic to some degree at baseline Doppler showed no lower leg fluid collection to suggest hematoma. b/L edema No signs of infection at this time and just finished course of abx on 04/07/2022 Lasix held today due to low BP Ambulatory dysfunction Generalized weakness H/O R rotator cuff tear --plan for surgery as outpatient Shoulder Xray showed no acute bony abnormality is identified. fall precautions Continue PT/OT eval Waiting for placement JAEL Due to dehydration from poor intake -resolved. Cr 1.8>>>1.3>1.04>0.94--->0.70 Avoid nephrotoxic agents as able Monitor renal function Monitor volume status IV fluids discontinued 04/04 Restarted on Lasix 04/05/2022 - switched to IV lasix 04/08/2022 due to worsening LE edema - continue for now (04/09/2022) Stable UTI H/O multiple UTIs in the past Urine culture growing Klebsiella pneumonia Rocephin - s/p 5 day course ended 04/07/2022 Hypokalemia K 3.1 today K replaced continue monitor BMP Chronic elevated troponin Possible related to elevate CK level Troponin 81 on admission Echo 02/08/2022: Mild LVH, EF: 60-65%, mild aortic regurgitation Continue metoprolol and plavix Denies any chest pain -no further workup Hypercoagulable state - initially INR supratherapeutic on admission and coumadin was held - INR normalized - Resumed Coumadin 04/05/2022 - daily INR while inpatient - trending up - no signs of bleeding - FOBT negative 04/08/2022 - INR 2.2 today -continue monitor PT/INR Chronic diastolic heart failure: Euvolemic PO lasix held today due to low BP Parkinson's: Continue carbidopa levodopa HTN: chronic, at goal. Continue metoprolol succinate Hypothyroidism: Continue levothyroxine RLS: Continue ropinirole Chronic anemia: Hgb stable No obvious source of bleeding Asthma: No signs acute exacerbation Continue home inhalers History gastric bypass with chronic constipation. Cont home linzess. History GERD: Continue PPI H/O Edenilson-Danlos syndrome stable DVT Px: Heparin discontinued Continue coumadin with INR 2.2 today Code Status Full code Dispo-awaiting placement. Admission and Anticipated Discharge Date Admission Date: April 02, 2022 Subjective Pt was seen and examined for follow up Lying in bed with no acute distress Waiting for placement Denies any chest pain, palpitation, dizziness and SOB Review of Systems Review of Systems: All systems reviewed & are unremarkable except as noted in Subjective Physical Exam Physical Exam: General- No acute distress, inttermittent tearful Head- atraumatic Eyes- PERRL, EOMI, ENT- oropharynx clear Neck- supple, no JVD Lungs- clear to auscultation Heart- regular rhythm; + murmur Abdomen- normal bowel sounds, soft, nontender Extremities- +edema, RUE swelling +multiple scattered ecchymosis in extremities Neuro- alert, oriented x 3; PERRL, EOMI; no facial palsy; no dysarthria Skin- warm & dry Results & Data Results & Data ([facility]) Vital Signs (Past 12 Hours) Vital Signs Temp Pulse Resp BP Pulse Ox O2 Del Method 04/17/22 15:37 36.4 C L 78 16 87/52 L 96 Room Air
[2022-04-18] MEDS: ACETAMINOPHEN 325 MG TAB PO PRN ×2 (02:22→21:44)
[2022-04-18] MEDS: hydrOXYzine HCl 10 MG TAB PO PRN (02:22)
[2022-04-18] MEDS: LEVOTHYROXINE SODIUM 50 MCG TABLET PO SCH (05:54)
[2022-04-18 07:14] LABS: Prothrombin Time 29.8 Seconds (9.0-12.0)
[2022-04-18 07:31] LABS: BUN Creatinine Ratio 21.1 (10-20); Calcium 9.3 mg/dl (8.5-10.1); Creatinine Clr Calc Pharmacy 63.9 ml/min; Est GFR (African American) 98.6 ml/min; Est GFR (Non-African American) 85.1 ml/min; Potassium 3.6 mmol/L (3.5-5.1)
[2022-04-18] MEDS: FLUTICASONE/VILANTEROL 100/25MCG 14 PUFFS/INHALER INH SCH (08:09)
[2022-04-18] MEDS: IPRATROPIUM BROMIDE NASAL SPRAY 0.06% 15ML NAE SCH ×4 (08:09→21:20)
[2022-04-18] MEDS: DOCUSATE SODIUM/SENNA 50/8.6MG TAB PO SCH ×2 (08:10→21:20)
[2022-04-18] MEDS: CARBIDOPA/LEVODOPA 25/100MG TAB PO SCH ×4 (08:10→21:23)
[2022-04-18] MEDS: THIAMINE HCL 100 MG TAB PO SCH ×2 (08:10→21:21)
[2022-04-18] MEDS: LINACLOTIDE 145 MCG CAPSULE PO SCH (08:11)
[2022-04-18] MEDS: rOPINIRole HCL 1 MG TABLET PO SCH ×4 (08:11→21:21)
[2022-04-18] MEDS: POTASSIUM CHLORIDE PWD 20 MEQ PACK PO SCH ×2 (08:11→21:21)
[2022-04-18] MEDS: OMEGA-3 (PURIFIED FISH OIL) 1 GM CAP PO SCH (08:12)
[2022-04-18] MEDS: ADVANCED PROBIOTIC 1250 MG CAPSULE PO SCH (08:12)
[2022-04-18] MEDS: CEROVITE ADV FORMULA TAB PO SCH (08:12)
[2022-04-18] MEDS: PANTOprazole 40 MG TAB PO SCH (08:12)
[2022-04-18] MEDS: ATORVASTATIN 20 MG TAB PO SCH (08:12)
[2022-04-18] MEDS: FUROSEMIDE 40 MG TAB PO SCH (08:13)
[2022-04-18] MEDS: METOPROLOL TARTRATE 25 MG TAB PO SCH (08:13)
[2022-04-18] MEDS: METAXALONE 800 MG TABLET PO SCH ×3 (08:14→21:21)
[2022-04-18] MEDS: CHECK BUPRENORPHINE PATCH SCH ×3 (08:19→21:30)
[2022-04-18] MEDS: guaiFENesin 200 MG TAB PO SCH ×2 (11:05→17:35)
--- NOTE | 2022-04-18 13:44 | XRay Report ---
XR chest 1V portable CLINICAL HISTORY: Cough. COMPARISON STUDY: Chest CT February 06, 2022. Chest radiograph April 02, 2022. FINDINGS: Lung volumes are normal. Lungs are clear. There is no pneumothorax or pleural effusion. Car diomegaly is unchanged. Mediastinal contours are normal. There is no evidence for pulmonary edema. IMPRESSION: No acute cardiopulmonary findings. No change in appearance of the chest. ACT 112: Negative or not required by law. Electronically signed by: Norris Blackburn M.D. 04/18/2022 1:42 PM
--- NOTE | 2022-04-18 15:56 | Hospitalist Progress Note ---
Date of Service April 18, 2022 Assessment & Plan (1) Weakness: (2) Ambulatory dysfunction: Plan: Patient was brought to the ER for ambulatory dysfunction and weakness after Adult Protective Services found her sitting in a chair and not able to care for herself. LE edema Swelling and skin changes are chronic to some degree at baseline Doppler showed no lower leg fluid collection to suggest hematoma. b/L edema No signs of infection at this time and just finished course of abx on 04/07/2022 Continue lasix 40mg daily Ambulatory dysfunction Generalized weakness H/O R rotator cuff tear --plan for surgery as outpatient Shoulder Xray showed no acute bony abnormality is identified. fall precautions Continue PT/OT eval Waiting for placement JAEL Due to dehydration from poor intake -resolved. Cr 1.8>>>1.3>1.04>0.94--->0.71 Avoid nephrotoxic agents as able Monitor renal function Monitor volume status IV fluids discontinued 04/04 Restarted on Lasix 04/05/2022 - switched to IV lasix 04/08/2022 due to worsening LE edema - continue for now (04/09/2022) Stable UTI H/O multiple UTIs in the past Urine culture growing Klebsiella pneumonia Rocephin - s/p 5 day course ended 04/07/2022 Hypokalemia K 3.6 today continue monitor BMP Chronic elevated troponin Possible related to elevate CK level Troponin 81 on admission Echo 02/08/2022: Mild LVH, EF: 60-65%, mild aortic regurgitation Continue metoprolol and plavix Denies any chest pain -no further workup Hypercoagulable state - initially INR supratherapeutic on admission and coumadin was held - INR normalized - Resumed Coumadin 04/05/2022 - daily INR while inpatient - trending up - no signs of bleeding - FOBT negative 04/08/2022 - INR 3 today -continue monitor PT/INR Chronic diastolic heart failure: Euvolemic PO lasix held today due to low BP Parkinson's: Continue carbidopa levodopa HTN: chronic, at goal. Continue metoprolol succinate Hypothyroidism: Continue levothyroxine RLS: Continue ropinirole Chronic anemia: Hgb stable No obvious source of bleeding Asthma: No signs acute exacerbation Continue home inhalers History gastric bypass with chronic constipation. Cont home linzess. History GERD: Continue PPI H/O Edenilson-Danlos syndrome stable DVT Px: Continue coumadin with INR 3 today Code Status Full code Dispo-awaiting placement Anticipate a bed on Saturday at [facility] as per case fitter Admission and Anticipated Discharge Date Admission Date: April 02, 2022 Subjective Pt was seen and examined for follow up Lying in bed with no acute distress Waiting for placement Denies any chest pain, palpitation, dizziness and SOB Review of Systems Review of Systems: All systems reviewed & are unremarkable except as noted in Subjective Physical Exam Physical Exam: General- No acute distress, inttermittent tearful Head- atraumatic Eyes- PERRL, EOMI, ENT- oropharynx clear Neck- supple, no JVD Lungs- clear to auscultation Heart- regular rhythm; + murmur Abdomen- normal bowel sounds, soft, nontender Extremities- +edema, RUE swelling +multiple scattered ecchymosis in extremities Neuro- alert, oriented x 3; PERRL, EOMI; no facial palsy; no dysarthria Skin- warm & dry Results & Data Results & Data ([facility]) Vital Signs (Past 12 Hours) Vital Signs Temp Pulse Resp BP BP Pulse Ox O2 Del Method 04/18/22 15:41 36.8 C 78 18 97/57 L 96 Room Air 04/18/22 06:40 36.6 C 80 18 107/69 98 Room Air
[2022-04-18] MEDS ORDERED: WARFARIN SOD 3 MG TAB PO SCH (16:00)
[2022-04-18] MEDS: MONTELUKAST SODIUM 10 MG TABLET PO SCH (21:22)
[2022-04-19] MEDS: guaiFENesin 200 MG TAB PO SCH ×2 (00:53→09:16)
[2022-04-19] MEDS: hydrOXYzine HCl 10 MG TAB PO PRN ×2 (00:53→23:10)
[2022-04-19] MEDS: LEVOTHYROXINE SODIUM 50 MCG TABLET PO SCH (06:26)
[2022-04-19 08:04] LABS: BUN Creatinine Ratio 21.3 (10-20); Calcium 8.8 mg/dl (8.5-10.1); Creatinine Clr Calc Pharmacy 74.3 ml/min; Est GFR (Non-African American) 90.6 ml/min; INR 3.5 (0.9-1.1); Potassium 3.5 mmol/L (3.5-5.1); Prothrombin Time 34.7 Seconds (9.0-12.0)
[2022-04-19] MEDS: CARBIDOPA/LEVODOPA 25/100MG TAB PO SCH ×4 (09:08→20:30)
[2022-04-19] MEDS: FLUTICASONE/VILANTEROL 100/25MCG 14 PUFFS/INHALER INH SCH (09:08)
[2022-04-19] MEDS: ATORVASTATIN 20 MG TAB PO SCH (09:08)
[2022-04-19] MEDS: rOPINIRole HCL 1 MG TABLET PO SCH ×4 (09:08→21:42)
[2022-04-19] MEDS: LINACLOTIDE 145 MCG CAPSULE PO SCH (09:08)
[2022-04-19] MEDS: OMEGA-3 (PURIFIED FISH OIL) 1 GM CAP PO SCH (09:08)
[2022-04-19] MEDS: FUROSEMIDE 40 MG TAB PO SCH (09:08)
[2022-04-19] MEDS: DOCUSATE SODIUM/SENNA 50/8.6MG TAB PO SCH ×2 (09:08→20:30)
[2022-04-19] MEDS: METOPROLOL TARTRATE 25 MG TAB PO SCH (09:09)
[2022-04-19] MEDS: METAXALONE 800 MG TABLET PO SCH ×3 (09:09→21:43)
[2022-04-19] MEDS: IPRATROPIUM BROMIDE NASAL SPRAY 0.06% 15ML NAE SCH ×4 (09:10→20:31)
[2022-04-19] MEDS: CEROVITE ADV FORMULA TAB PO SCH (09:10)
[2022-04-19] MEDS: POTASSIUM CHLORIDE PWD 20 MEQ PACK PO SCH ×2 (09:10→21:40)
[2022-04-19] MEDS: THIAMINE HCL 100 MG TAB PO SCH ×2 (09:10→21:41)
[2022-04-19] MEDS: PANTOprazole 40 MG TAB PO SCH (09:10)
[2022-04-19] MEDS: CHECK BUPRENORPHINE PATCH SCH ×2 (09:11→17:00)
[2022-04-19] MEDS: ADVANCED PROBIOTIC 1250 MG CAPSULE PO SCH (09:12)
[2022-04-19] MEDS: ACETAMINOPHEN 325 MG TAB PO PRN ×2 (12:15→23:13)
--- NOTE | 2022-04-19 13:43 | Hospitalist Progress Note ---
Date of Service April 19, 2022 Assessment & Plan (1) COVID-19: Plan: acquired covi-19 infection, not requiring oxygen supplementation. Give Robitussin AC for cough and flonase nasal spray for symptomatic relief of sinus congestion. Cont isolation precautions. (2) Weakness: (3) Ambulatory dysfunction: Plan: Patient was brought to the ER for ambulatory dysfunction and weakness after Adult Protective Services found her sitting in a chair and not able to care for herself. LE edema Swelling and skin changes are chronic to some degree at baseline Doppler showed no lower leg fluid collection to suggest hematoma. b/L edema No signs of infection at this time and just finished course of abx on 04/07/2022 Continue lasix 40mg daily Ambulatory dysfunction Generalized weakness H/O R rotator cuff tear --plan for surgery as outpatient Shoulder Xray showed no acute bony abnormality is identified. fall precautions Continue PT/OT eval Waiting for placement JAEL Due to dehydration from poor intake -resolved. Cr 1.8>>>1.3>1.04>0.94--->0.71 Avoid nephrotoxic agents as able Monitor renal function Monitor volume status IV fluids discontinued 04/04 Restarted on Lasix 04/05/2022 - switched to IV lasix 04/08/2022 due to worsening LE edema - continue for now (04/09/2022) Stable UTI H/O multiple UTIs in the past Urine culture growing Klebsiella pneumonia Rocephin - s/p 5 day course ended 04/07/2022 Chronic elevated troponin Possible related to elevate CK level Troponin 81 on admission Echo 02/08/2022: Mild LVH, EF: 60-65%, mild aortic regurgitation Continue metoprolol and plavix Denies any chest pain -no further workup Hypercoagulable state - initially INR supratherapeutic on admission and coumadin was held - INR normalized - Resumed Coumadin 04/05/2022 - daily INR while inpatient - trending up - no signs of bleeding - FOBT negative 04/08/2022 - INR 3.5 today -hold warfarin Chronic diastolic heart failure: Euvolemic-continues on daily Lasix Parkinson's: chronic, stable. Continue carbidopa levodopa HTN: chronic, at goal. Continue metoprolol succinate Hypothyroidism: chronic, stable. Continue levothyroxine RLS: chronic, stable. Continue ropinirole Chronic anemia: Hgb stable No obvious source of bleeding Asthma: No signs acute exacerbation Continue home inhalers History gastric bypass with chronic constipation. Cont home linzess. History GERD: Continue PPI H/O Edenilson-Danlos syndrome stable DVT Px: coumadin Code Status: Full code Dispo-awaiting placement which will now be delayed 10 days because of symptomatic covid-19 infection CM and patient are aware. Leny Breen DO [facility] Hospitalist Admission and Anticipated Discharge Date Admission Date: April 02, 2022 Subjective Pt was seen and examined for follow up Lying in bed with no acute distress Waiting for placement-has been reporting fatigue, cough x 2 days Feeling [place] generally, sinuses are congested +covid test today isolation precautions started Review of Systems Review of Systems: All systems reviewed negative except as indicated above. Physical Exam Physical Exam: CONSTITUTIONAL: WNWD, vitals as above, NAD but tearful EYES: normal conjunctivae, no scleral icterus ENT: external ear and nose normal,MMM NECK: trachea midline, RESPIRATORY: clear to auscultation bilaterally, no crackles, rales or wheezes, normal respiratory effort CARDIOVASCULAR: regular rate and rhythm, 3/6 CELINA, no gallops or rubs, no JVD, no peripheral edema CHEST: inspection of chest was normal GASTROINTESTINAL: soft, nontender, ND, no guarding. MUSCULOSKELETAL: strength 5/5 throughout, head is normocephalic and atraumatic, SKIN: warm and dry NEUROLOGIC: CN 2-12 grossly intact, no sensory deficit, normal cognition, normal speech, no tremor PSYCHIATRIC: alert cooperative and oriented to person, place and time. Results & Data Results & Data ([facility]) Vital Signs (Past 12 Hours) Vital Signs Temp Pulse Resp BP Pulse Ox 04/19/22 08:11 37.1 C 80 22 113/68 94 Laboratory Results BMP 04/19/22 06:25 Sodium 139 Potassium 3.5 Chloride 108 H Carbon Dioxide 25 BUN 13 Creatinine 0.61 Glucose 85 Calcium 8.8 Medications Administered Current Inpatient Medications Acetaminophen (Acetaminophen 325 Mg Tab) 650 mg PO Q6H PRN PRN Reason: Fever/pain Stop: 05/03/22 00:39 Last Admin: 04/19/22 12:15 Dose: 650 mg Albuterol (Albuterol Hfa 8 Gm Inhaler) 2 puffs INH Q6 PRN PRN Reason: Shortness Of Breath Or Wheezin Stop: 05/02/22 21:32 Albuterol (Albut/Ipratrop 3mg/0.5mg Neb 3 Ml Vial) 3 ml INH QIDR PRN; Protocol PRN Reason: Shortness Of Breath Or Wheezing Stop: 05/02/22 21:32 Atorvastatin Calcium (Atorvastatin 20 Mg Tab) 20 mg PO QAM [facility] Stop: 05/03/22 08:59 Last Admin: 04/19/22 09:08 Dose: 20 mg Benzocaine (Benzocaine 20% (Orajel) 11.9 Gm Tube) 1 appln MT TID PRN PRN Reason: oral ulcer pain Stop: 05/04/22 13:02 Last Admin: 04/14/22 22:09 Dose: 1 appln Buprenorphine HCl (Pt's Own Med: Buprenorphine 15 Mcg/Patch Tdsy) 15 mcg TD Sa@1500 [facility] Stop: 05/07/22 14:59 Last Admin: 04/14/22 16:01 Dose: 15 mcg Carbidopa/Levodopa (Carbidopa/Levodopa 25/100mg Tab) 1 tab PO QID [facility] Stop: 05/02/22 21:32 Last Admin: 04/19/22 12:13 Dose: 1 tab Fish Oil ([place]-3 (Purified Fish Oil) 1 Gm Cap) 1 gm PO DAILY [facility] Stop: 05/03/22 08:59 Last Admin: 04/19/22 09:08 Dose: 1 gm Fluticasone/Vilanterol (Fluticasone/Vilanterol 100/25mcg 14 Puffs/Inhaler) 1 puffs INH DAILY [facility] Stop: 05/03/22 08:59 Last Admin: 04/19/22 09:08 Dose: 1 puffs Furosemide (Furosemide 40 Mg Tab) 40 mg PO QAM [facility] Stop: 05/05/22 09:59 Last Admin: 04/19/22 09:08 Dose: 40 mg Guaifenesin (Guaifenesin 200 Mg Tab) 200 mg PO Q8H [facility] Stop: 05/18/22 10:14 Last Admin: 04/19/22 09:16 Dose: 200 mg Hydroxyzine HCl (Hydroxyzine Hcl 10 Mg Tab) 10 mg PO Q12H PRN PRN Reason: anxiety and itchiness Stop: 05/16/22 10:57 Last Admin: 04/19/22 00:53 Dose: 10 mg Ipratropium [place] (Ipratropium [place] Nasal [place] 0.06% 15ml) 1 sprays ELYSE QID [facility] Stop: 05/02/22 21:32 Last Admin: 04/19/22 12:13 Dose: 1 sprays Lactobacillus Acidophilus (Advanced Probiotic 1250 Mg Capsule) 2 cap PO DAILY [facility] Stop: 05/03/22 08:59 Last Admin: 04/19/22 09:12 Dose: 2 cap Levothyroxine Sodium (Levothyroxine Sodium 50 Mcg Tablet) 50 mcg PO DAILYBB [facility] Stop: 05/03/22 06:29 Last Admin: 04/19/22 06:26 Dose: 50 mcg Linaclotide (Linaclotide 145 Mcg Capsule) 290 mcg PO DAILY [facility] Stop: 05/03/22 08:59 Last Admin: 04/19/22 09:08 Dose: 290 mcg Metaxalone (Metaxalone 800 Mg Tablet) 400 mg PO TID [facility] Stop: 05/06/22 13:59 Last Admin: 04/19/22 09:09 Dose: 400 mg Metoprolol Tartrate (Metoprolol Tartrate 25 Mg Tab) 12.5 mg PO DAILY [facility] Stop: 05/03/22 08:59 Last Admin: 04/19/22 09:09 Dose: 12.5 mg Miscellaneous (Remove & Waste Butrans Patch 1 Ea Ea) 1 each N/A Sa@1459 [facility] Stop: 05/07/22 14:58 Last Admin: 04/14/22 16:02 Dose: 1 each Miscellaneous (Check Buprenorphine Patch) 1 each N/A QS [facility] Stop: 05/07/22 15:59 Last Admin: 04/19/22 09:11 Dose: 1 each Montelukast Sodium (Montelukast Sodium 10 Mg Tablet) 10 mg PO HS [facility] Stop: 05/02/22 21:32 Last Admin: 04/18/22 21:22 Dose: 10 mg Multivitamins/Minerals (Cerovite Adv Formula Tab) 1 tab PO DAILY [facility] Stop: 05/03/22 08:59 Last Admin: 04/19/22 09:10 Dose: 1 tab Pantoprazole Sodium (Pantoprazole 40 Mg Tab) 40 mg PO DAILY [facility] Stop: 05/03/22 08:59 Last Admin: 04/19/22 09:10 Dose: 40 mg Potassium Chloride (Potassium Chloride Pwd 20 Meq Pack) 20 meq PO BID [facility] Stop: 05/02/22 21:32 Last Admin: 04/19/22 09:10 Dose: 20 meq Ropinirole HCl (Ropinirole Hcl 1 Mg Tablet) 1 mg PO TID@0800,1200,1600 [facility] Stop: 05/03/22 07:59 Last Admin: 04/19/22 12:13 Dose: 1 mg Ropinirole HCl (Ropinirole Hcl 1 Mg Tablet) 2 mg PO HS [facility] Stop: 05/02/22 21:32 Last Admin: 04/18/22 21:21 Dose: 2 mg Senna/Docusate Sodium (Docusate Sodium/Senna 50/8.6mg Tab) 1 tab PO BID [facility] Stop: 05/13/22 21:44 Last Admin: 04/19/22 09:08 Dose: 1 tab Thiamine HCl (Thiamine Hcl 100 Mg Tab) 100 mg PO BID [facility] Stop: 05/02/22 21:32 Last Admin: 04/19/22 09:10 Dose: 100 mg Warfarin Sodium (Warfarin Sod 3 Mg Tab) 3 mg PO DAILY@1600 [facility] Stop: 05/19/22 15:59
[2022-04-19] MEDS ORDERED: guaiFENesin/CODEINE 100MG/10MG 5ML UDC PO STA (16:35)
[2022-04-19] MEDS: FLUTICASONE PROPIONATE NA SPR 16 GM BTL NAE SCH (17:06)
[2022-04-19] MEDS: WARFARIN SOD 3 MG TAB PO SCH (17:07)
[2022-04-19] MEDS: MONTELUKAST SODIUM 10 MG TABLET PO SCH (21:41)
[2022-04-20] MEDS: CHECK BUPRENORPHINE PATCH SCH ×4 (00:33→23:27)
[2022-04-20] MEDS: LEVOTHYROXINE SODIUM 50 MCG TABLET PO SCH (05:43)
[2022-04-20 07:27] LABS: Hematocrit (blood only) 26.5 % (34.1-44.9); Hemoglobin 8.3 g/dl (12.0-16.0); Mean Corpuscular Hemoglobin 30.1 pg (25.0-34.0); Mean Corpuscular Hgb Conc 31.3 g/dL (32.0-36.0); Platelet Count 257 K/uL (130-400); RDW Coefficient of Variation 16.8 % (11.5-14.5); RDW Standard Deviation 59.6 fL (36.4-46.3); Red Blood Count 2.76 M/uL (3.93-5.22); White Blood Count 5.07 K/ul (4.8-10.8)
[2022-04-20 07:39] LABS: INR 2.6 (0.9-1.1); Prothrombin Time 26.6 Seconds (9.0-12.0)
[2022-04-20 08:12] LABS: BUN Creatinine Ratio 22.6 (10-20); C Reactive Protein 10.01 mg/dl (0-0.5); Calcium 8.7 mg/dl (8.5-10.1); Creatinine Clr Calc Pharmacy 73.1 ml/min; Est GFR (African American) 104.4 ml/min; Est GFR (Non-African American) 90.1 ml/min; Potassium 3.1 mmol/L (3.5-5.1)
[2022-04-20] MEDS: DOCUSATE SODIUM/SENNA 50/8.6MG TAB PO SCH ×2 (08:18→19:42)
[2022-04-20] MEDS: IPRATROPIUM BROMIDE NASAL SPRAY 0.06% 15ML NAE SCH ×4 (08:19→19:51)
[2022-04-20] MEDS: CARBIDOPA/LEVODOPA 25/100MG TAB PO SCH ×4 (08:19→19:51)
[2022-04-20] MEDS: ATORVASTATIN 20 MG TAB PO SCH (08:20)
[2022-04-20] MEDS: METAXALONE 800 MG TABLET PO SCH (08:20)
[2022-04-20] MEDS: rOPINIRole HCL 1 MG TABLET PO SCH ×4 (08:21→19:50)
[2022-04-20] MEDS: LINACLOTIDE 145 MCG CAPSULE PO SCH (08:22)
[2022-04-20] MEDS: ADVANCED PROBIOTIC 1250 MG CAPSULE PO SCH (08:22)
[2022-04-20] MEDS: OMEGA-3 (PURIFIED FISH OIL) 1 GM CAP PO SCH (08:22)
[2022-04-20] MEDS: THIAMINE HCL 100 MG TAB PO SCH ×2 (08:22→19:50)
[2022-04-20] MEDS: PANTOprazole 40 MG TAB PO SCH (08:23)
[2022-04-20] MEDS: POTASSIUM CHLORIDE PWD 20 MEQ PACK PO SCH (08:24)
[2022-04-20] MEDS: CEROVITE ADV FORMULA TAB PO SCH (08:24)
[2022-04-20] MEDS: FUROSEMIDE 40 MG TAB PO SCH (08:28)
[2022-04-20] MEDS: METOPROLOL TARTRATE 25 MG TAB PO SCH (08:28)
[2022-04-20] MEDS: ALBUT/IPRATROP 3MG/0.5MG NEB 3 ML VIAL INH PRN ×2 (09:04→20:07)
[2022-04-20] MEDS: ACETAMINOPHEN 325 MG TAB PO PRN ×2 (09:48→16:04)
[2022-04-20] MEDS: FLUTICASONE/VILANTEROL 100/25MCG 14 PUFFS/INHALER INH SCH (09:48)
--- NOTE | 2022-04-20 10:43 | Hospitalist Progress Note ---
Date of Service April 20, 2022 Assessment & Plan (1) COVID-19: Plan: acquired covid-19 infection, not requiring oxygen supplementation. Cont Robitussin AC for cough PRN and flonase nasal spray for symptomatic relief of sinus congestion. Cont isolation precautions. (2) Weakness: (3) Ambulatory dysfunction: Plan: Patient was brought to the ER for ambulatory dysfunction and weakness after [facility] found her sitting in a chair and not able to care for herself. LE edema Swelling and skin changes are chronic to some degree at baseline Doppler showed no lower leg fluid collection to suggest hematoma. b/L edema No signs of infection at this time and just finished course of abx on 04/07/2022 Continue lasix 40mg daily which was held today in light of persistent hypokalemia. Ambulatory dysfunction Generalized weakness H/O R rotator cuff tear --plan for surgery as outpatient Shoulder Xray showed no acute bony abnormality is identified. fall precautions Continue PT/OT eval Waiting for placement On skelaxin, however, has persistent hypotension and ?mood issues/irritability. Will hold this now to see if this improves. JAEL Due to dehydration from poor intake -resolved. Cr 1.8>>>1.3>1.04>0.94--->0.71 Avoid nephrotoxic agents as able Monitor renal function Monitor volume status IV fluids discontinued 04/04 Restarted on Lasix 04/05/2022 - switched to IV lasix 04/08/2022 due to worsening LE edema - continue for now (04/09/2022) Stable UTI H/O multiple UTIs in the past Urine culture growing Klebsiella pneumonia Rocephin - s/p 5 day course ended 04/07/2022 Chronic elevated troponin Possible related to elevate CK level Troponin 81 on admission Echo 02/08/2022: Mild LVH, EF: 60-65%, mild aortic regurgitation Continue metoprolol and plavix Denies any chest pain -no further workup Hypercoagulable state - initially INR supratherapeutic on admission and coumadin was held - INR normalized - Resumed Coumadin 04/05/2022 - daily INR while inpatient - trending up - no signs of bleeding - FOBT negative 04/08/2022 - INR 3.5-->2.6 today -resume warfarin Chronic diastolic heart failure: Euvolemic-hold lasix as above. Parkinson's: chronic, stable. Continue carbidopa levodopa HTN: chronic, at goal. Continue metoprolol succinate Hypothyroidism: chronic, stable. Continue levothyroxine RLS: chronic, stable. Continue ropinirole Chronic anemia: Hgb stable No obvious source of bleeding Asthma: No signs acute exacerbation Continue home inhalers History gastric bypass with chronic constipation. Cont home linzess. History GERD: Continue PPI H/O Edenilson-Danlos syndrome stable DVT Px: coumadin Code Status: Full code Dispo-awaiting placement which will now be delayed because of symptomatic covid- 19 infection CM and patient are aware. Leny Breen DO [facility] Hospitalist Admission and Anticipated Discharge Date Admission Date: April 02, 2022 Subjective Pt was seen and examined for follow up Lying in bed with no acute distress feels nasal congestion today that is worse still coughing with Robitussin helping. Review of Systems Review of Systems: All systems were reviewed and negative except as indicated on subjective above. Physical Exam Physical Exam: CONSTITUTIONAL: WNWD, vitals as above, NAD but tearful EYES: normal conjunctivae, no scleral icterus ENT: external ear and nose normal,MMM NECK: trachea midline, RESPIRATORY: clear to auscultation bilaterally, no crackles, rales or wheezes, normal respiratory effort CARDIOVASCULAR: regular rate and rhythm, 3/6 CELINA, no gallops or rubs, no JVD, no peripheral edema CHEST: inspection of chest was normal GASTROINTESTINAL: soft, nontender, ND, no guarding. MUSCULOSKELETAL: strength 5/5 throughout, head is normocephalic and atraumatic, SKIN: warm and dry NEUROLOGIC: CN 2-12 grossly intact, no sensory deficit, normal cognition, normal speech, no tremor PSYCHIATRIC: alert cooperative and oriented to person, place and time. Results & Data Results & Data ([facility]) Vital Signs (Past 12 Hours) Vital Signs Temp Pulse Resp BP Pulse Ox O2 Del Method 04/20/22 09:04 80 18 97 Room Air 04/20/22 08:26 37.4 C 82 22 93/63 L 96 Room Air 04/20/22 07:21 Room Air 04/19/22 23:00 36.8 C 83 22 120/78 98 Room Air Laboratory Results Short CBC 04/20/22 Range/Units 06:42 WBC 5.07 (4.8-10.8) K/ul Hgb 8.3 L (12.0-16.0) g/dl Hct 26.5 L (34.1-44.9) % Plt Count 257 (130-400) K/uL [facility] 04/20/22 06:42 Sodium 137 Potassium 3.1 L Chloride 105 Carbon Dioxide 25 BUN 14 Creatinine 0.62 Glucose 104 H Calcium 8.7 Medications Administered Current Inpatient Medications Acetaminophen (Acetaminophen 325 Mg Tab) 650 mg PO Q6H PRN PRN Reason: Fever/pain Stop: 05/03/22 00:39 Last Admin: 04/20/22 09:48 Dose: 650 mg Albuterol (Albuterol Hfa 8 Gm Inhaler) 2 puffs INH Q6 PRN PRN Reason: Shortness Of Breath Or Wheezin Stop: 05/02/22 21:32 Albuterol (Albut/Ipratrop 3mg/0.5mg Neb 3 Ml Vial) 3 ml INH QIDR PRN; Protocol PRN Reason: Shortness Of Breath Or Wheezing Stop: 05/02/22 21:32 Last Admin: 04/20/22 09:04 Dose: 3 ml Atorvastatin Calcium (Atorvastatin 20 Mg Tab) 20 mg PO QAM [facility] Stop: 05/03/22 08:59 Last Admin: 04/20/22 08:20 Dose: 20 mg Benzocaine (Benzocaine 20% (Orajel) 11.9 Gm Tube) 1 appln MT TID PRN PRN Reason: oral ulcer pain Stop: 05/04/22 13:02 Last Admin: 04/14/22 22:09 Dose: 1 appln Buprenorphine HCl (Pt's Own Med: Buprenorphine 15 Mcg/Patch Tdsy) 15 mcg TD Sa@1500 [facility] Stop: 05/07/22 14:59 Last Admin: 04/14/22 16:01 Dose: 15 mcg Carbidopa/Levodopa (Carbidopa/Levodopa 25/100mg Tab) 1 tab PO QID [facility] Stop: 05/02/22 21:32 Last Admin: 04/20/22 08:19 Dose: 1 tab Fish Oil ([place]-3 (Purified Fish Oil) 1 Gm Cap) 1 gm PO DAILY [facility] Stop: 05/03/22 08:59 Last Admin: 04/20/22 08:22 Dose: 1 gm Fluticasone Propionate (Fluticasone Propionate Na Spr 16 Gm Btl) 2 sprays ELYSE Q24H [facility] Stop: 05/19/22 16:44 Last Admin: 04/19/22 17:06 Dose: Not Given Fluticasone/Vilanterol (Fluticasone/Vilanterol 100/25mcg 14 Puffs/Inhaler) 1 puffs INH DAILY [facility] Stop: 05/03/22 08:59 Last Admin: 04/20/22 09:48 Dose: 1 puffs Furosemide (Furosemide 40 Mg Tab) 40 mg PO QAM [facility] Stop: 05/05/22 09:59 Last Admin: 04/20/22 08:28 Dose: Not Given Guaifenesin/Codeine Phosphate (Guaifenesin/Codeine 200mg/20mg 10ml Udc) 10 ml PO Q6H PRN PRN Reason: Cough Stop: 05/19/22 16:34 Last Admin: 04/20/22 09:48 Dose: 10 ml Hydroxyzine HCl (Hydroxyzine Hcl 10 Mg Tab) 10 mg PO Q12H PRN PRN Reason: anxiety and itchiness Stop: 05/16/22 10:57 Last Admin: 04/19/22 23:10 Dose: 10 mg Ipratropium [place] (Ipratropium [place] Nasal [place] 0.06% 15ml) 1 sprays ELYSE Q ID [facility] Stop: 05/02/22 21:32 Last Admin: 04/20/22 08:19 Dose: 1 sprays Lactobacillus Acidophilus (Advanced Probiotic 1250 Mg Capsule) 2 cap PO DAILY [facility] Stop: 05/03/22 08:59 Last Admin: 04/20/22 08:22 Dose: 2 cap Levothyroxine Sodium (Levothyroxine Sodium 50 Mcg Tablet) 50 mcg PO DAILYBB [facility] Stop: 05/03/22 06:29 Last Admin: 04/20/22 05:43 Dose: 50 mcg Linaclotide (Linaclotide 145 Mcg Capsule) 290 mcg PO DAILY [facility] Stop: 05/03/22 08:59 Last Admin: 04/20/22 08:22 Dose: Not Given Metaxalone (Metaxalone 800 Mg Tablet) 400 mg PO TID [facility] Stop: 05/06/22 13:59 Last Admin: 04/20/22 08:20 Dose: 400 mg Metoprolol Tartrate (Metoprolol Tartrate 25 Mg Tab) 12.5 mg PO DAILY [facility] Stop: 05/03/22 08:59 Last Admin: 04/20/22 08:28 Dose: Not Given Miscellaneous (Remove & Waste Butrans Patch 1 Ea Ea) 1 each N/A Sa@1459 [facility] Stop: 05/07/22 14:58 Last Admin: 04/14/22 16:02 Dose: 1 each Miscellaneous (Check Buprenorphine Patch) 1 each N/A QS [facility] Stop: 05/07/22 15:59 Last Admin: 04/20/22 08:18 Dose: 1 each Montelukast Sodium (Montelukast Sodium 10 Mg Tablet) 10 mg PO HS [facility] Stop: 05/02/22 21:32 Last Admin: 04/19/22 21:41 Dose: 10 mg Multivitamins/Minerals (Cerovite Adv Formula Tab) 1 tab PO DAILY [facility] Stop: 05/03/22 08:59 Last Admin: 04/20/22 08:24 Dose: 1 tab Pantoprazole Sodium (Pantoprazole 40 Mg Tab) 40 mg PO DAILY [facility] Stop: 05/03/22 08:59 Last Admin: 04/20/22 08:23 Dose: 40 mg Potassium Chloride (Potassium Chloride Pwd 20 Meq Pack) 20 meq PO BID [facility] Stop: 05/02/22 21:32 Last Admin: 04/20/22 08:24 Dose: 20 meq Potassium Chloride (Potassium Chloride Crtab 20 Meq Tabcr) 40 meq PO Q6H [facility] Stop: 04/20/22 16:46 Ropinirole HCl (Ropinirole Hcl 1 Mg Tablet) 1 mg PO TID@0800,1200,1600 [facility] Stop: 05/03/22 07:59 Last Admin: 04/20/22 08:21 Dose: 1 mg Ropinirole HCl (Ropinirole Hcl 1 Mg Tablet) 2 mg PO HS [facility] Stop: 05/02/22 21:32 Last Admin: 04/19/22 21:42 Dose: 2 mg Senna/Docusate Sodium (Docusate Sodium/Senna 50/8.6mg Tab) 1 tab PO BID [facility] Stop: 05/13/22 21:44 Last Admin: 04/20/22 08:18 Dose: Not Given Thiamine HCl (Thiamine Hcl 100 Mg Tab) 100 mg PO BID [facility] Stop: 05/02/22 21:32 Last Admin: 04/20/22 08:22 Dose: 100 mg Warfarin Sodium (Warfarin Sod 3 Mg Tab) 3 mg PO DAILY@1600 [facility] Stop: 05/19/22 15:59 Last Admin: 04/19/22 17:07 Dose: Not Given
[2022-04-20] MEDS: POTASSIUM CHLORIDE CRTAB 20 MEQ TABCR PO SCH ×2 (12:03→16:08)
[2022-04-20] MEDS: hydrOXYzine HCl 10 MG TAB PO PRN (13:57)
[2022-04-20] MEDS: FLUTICASONE PROPIONATE NA SPR 16 GM BTL NAE SCH (16:05)
[2022-04-20] MEDS: WARFARIN SOD 3 MG TAB PO SCH (16:06)
[2022-04-20] MEDS ORDERED: POTASSIUM CHLORIDE 20 MEQ/15 ML UDC PO STA (16:43)
[2022-04-20] MEDS: MONTELUKAST SODIUM 10 MG TABLET PO SCH (19:51)
[2022-04-20] MEDS ORDERED: LORazepam 0.5 MG TAB PO STA (20:36)
[2022-04-20] MEDS ORDERED: SODIUM CHLORIDE 0.9% 500 ML IV SCH (23:00)
[2022-04-21] MEDS: ACETAMINOPHEN 325 MG TAB PO PRN ×2 (01:54→20:52)
[2022-04-21] MEDS: LEVOTHYROXINE SODIUM 50 MCG TABLET PO SCH (05:55)
[2022-04-21 07:07] LABS: Hematocrit (blood only) 28.4 % (34.1-44.9); Mean Corpuscular Hemoglobin 30.5 pg (25.0-34.0); Mean Corpuscular Hgb Conc 31.7 g/dL (32.0-36.0); Mean Corpuscular Volume 96.3 fL (80.0-100.0); Platelet Count 308 K/uL (130-400); RDW Coefficient of Variation 16.6 % (11.5-14.5); RDW Standard Deviation 58.8 fL (36.4-46.3); Red Blood Count 2.95 M/uL (3.93-5.22); White Blood Count 4.63 K/ul (4.8-10.8)
[2022-04-21 07:22] LABS: INR 1.9 (0.9-1.1); Prothrombin Time 19.8 Seconds (9.0-12.0)
[2022-04-21 08:10] LABS: BUN Creatinine Ratio 21.2 (10-20); Creatinine Clr Calc Pharmacy 68.7 ml/min; Est GFR (African American) 102.3 ml/min; Est GFR (Non-African American) 88.3 ml/min; Magnesium 1.9 mg/dl (1.7-2.4); Potassium 4.3 mmol/L (3.5-5.1)
[2022-04-21] MEDS: CHECK BUPRENORPHINE PATCH SCH ×2 (08:26→16:03)
[2022-04-21] MEDS: CARBIDOPA/LEVODOPA 25/100MG TAB PO SCH ×4 (08:30→20:54)
[2022-04-21] MEDS: ATORVASTATIN 20 MG TAB PO SCH (08:30)
[2022-04-21] MEDS: ADVANCED PROBIOTIC 1250 MG CAPSULE PO SCH (08:30)
[2022-04-21] MEDS: rOPINIRole HCL 1 MG TABLET PO SCH ×4 (08:30→20:56)
[2022-04-21] MEDS: OMEGA-3 (PURIFIED FISH OIL) 1 GM CAP PO SCH (08:30)
[2022-04-21] MEDS: LINACLOTIDE 145 MCG CAPSULE PO SCH (08:31)
[2022-04-21] MEDS: THIAMINE HCL 100 MG TAB PO SCH ×2 (08:31→20:57)
[2022-04-21] MEDS: CEROVITE ADV FORMULA TAB PO SCH (08:31)
[2022-04-21] MEDS: PANTOprazole 40 MG TAB PO SCH (08:31)
[2022-04-21] MEDS: METOPROLOL TARTRATE 25 MG TAB PO SCH (08:31)
[2022-04-21] MEDS: IPRATROPIUM BROMIDE NASAL SPRAY 0.06% 15ML NAE SCH ×4 (08:32→20:55)
[2022-04-21] MEDS: POTASSIUM CHLORIDE 20 MEQ/15 ML UDC PO SCH ×2 (08:32→20:57)
[2022-04-21] MEDS: DOCUSATE SODIUM/SENNA 50/8.6MG TAB PO SCH ×2 (08:33→20:55)
[2022-04-21] MEDS: FLUTICASONE/VILANTEROL 100/25MCG 14 PUFFS/INHALER INH SCH (08:33)
[2022-04-21] MEDS ORDERED: EUCERIN CR 120 GM JAR EXT PRN (14:25)
[2022-04-21] MEDS: BUPRENORPHINE TD SCH (16:00)
[2022-04-21] MEDS: WARFARIN SOD 3 MG TAB PO SCH (16:02)
[2022-04-21] MEDS: FLUTICASONE PROPIONATE NA SPR 16 GM BTL NAE SCH (16:02)
[2022-04-21] MEDS ORDERED: WARFARIN SOD 2 MG TAB PO ONE (16:08)
--- NOTE | 2022-04-21 16:08 | Hospitalist Progress Note ---
Date of Service April 21, 2022 Assessment & Plan (1) COVID-19: Plan: acquired covid-19 infection, not requiring oxygen supplementation. Cont Robitussin AC for cough PRN and flonase nasal spray for symptomatic relief of sinus congestion. Cont isolation precautions. (2) Unable to care for self: (3) Weakness: (4) Ambulatory dysfunction: Plan: Patient was brought to the ER for ambulatory dysfunction and weakness after Adult Protective Services found her sitting in a chair and not able to care for herself. LE edema Swelling and skin changes are chronic to some degree at baseline Doppler showed no lower leg fluid collection to suggest hematoma. b/L edema No signs of infection at this time and just finished course of abx on 04/07/2022 Lasix 40mg daily was held in setting of persistent hypokalemia and hypotension. Ambulatory dysfunction Generalized weakness H/O R rotator cuff tear --plan for surgery as outpatient Shoulder Xray showed no acute bony abnormality is identified. fall precautions Continue PT/OT eval Waiting for placement On skelaxin, however, has persistent hypotension and ?mood issues/irritability. This has been held and she is aware and is ok with this. Discussed polypharmacy effects on 04/21. JAEL Due to dehydration from poor intake -resolved. Cr 1.8>>>1.3>1.04>0.94--->0.71 Avoid nephrotoxic agents as able Monitor renal function Monitor volume status IV fluids discontinued 04/04 Restarted on Lasix 04/05/2022 - switched to IV lasix 04/08/2022 due to worsening LE edema - LAsix held as above. UTI H/O multiple UTIs in the past Urine culture growing Klebsiella pneumonia Rocephin - s/p 5 day course ended 04/07/2022 Chronic elevated troponin Possible related to elevate CK level Troponin 81 on admission Echo 02/08/2022: Mild LVH, EF: 60-65%, mild aortic regurgitation Continue metoprolol and plavix Denies any chest pain -no further workup Hypercoagulable state - initially INR supratherapeutic on admission and coumadin was held - INR normalized - Resumed Coumadin 04/05/2022 - daily INR while inpatient - trending up - no signs of bleeding - FOBT negative 04/08/2022 - INR 3.5-->2.6-->1.9 warfarin ongoing but give 5mg today Chronic diastolic heart failure: Euvolemic-hold lasix as above. Parkinson's: chronic, stable. Continue carbidopa levodopa HTN: chronic, at goal. Continue metoprolol succinate Hypothyroidism: chronic, stable. Continue levothyroxine RLS: chronic, stable. Continue ropinirole Chronic anemia: Hgb stable No obvious source of bleeding Asthma: No signs acute exacerbation Continue home inhalers History gastric bypass with chronic constipation. Cont home linzess. History GERD: Continue PPI H/O Edenilson-Danlos syndrome stable DVT Px: coumadin Code Status: Full code Dispo-awaiting placement which will now be delayed because of symptomatic covid- 19 infection CM and patient are aware. DO Ophelia Sexton Hospitalist Admission and Anticipated Discharge Date Admission Date: April 02, 2022 Subjective 72 yo F admitted with inability to care for self. She has mood disorder and multiple comorbidities including chronic pain, opiate dependent. She has acquired covid-19 infection while admitted. She reports bad nasal stuffiness and wheezing She is upset because she "can't bring anything up" She is afebrile and reports the cough syrup is helping somewhat. She is tolerating PO Review of Systems Review of Systems: All systems were reviewed and negative except as indicated on subjective above. Physical Exam Physical Exam: CONSTITUTIONAL: WNWD, vitals as above, NAD EYES: normal conjunctivae, no scleral icterus ENT: external ear and nose normal,MMM NECK: trachea midline, RESPIRATORY: clear to auscultation bilaterally, no crackles, rales or wheezes, normal respiratory effort CARDIOVASCULAR: regular rate and rhythm, 3/6 CELINA, no gallops or rubs, no JVD, no peripheral edema CHEST: inspection of chest was normal GASTROINTESTINAL: soft, nontender, ND, no guarding. MUSCULOSKELETAL: strength 5/5 throughout, head is normocephalic and atraumatic, SKIN: warm and dry NEUROLOGIC: CN 2-12 grossly intact, no sensory deficit, normal cognition, normal speech, no tremor PSYCHIATRIC: alert cooperative and oriented to person, place and time. Results & Data Results & Data ([facility]) Vital Signs (Past 12 Hours) Vital Signs Temp Pulse Resp BP Pulse Ox O2 Del Method 04/21/22 09:00 Room Air 04/21/22 08:38 36.6 C 80 16 94/61 L 98 Room Air Laboratory Results Short CBC 04/21/22 Range/Units 06:49 WBC 4.63 L (4.8-10.8) K/ul Hgb 9.0 L (12.0-16.0) g/dl Hct 28.4 L (34.1-44.9) % Plt Count 308 (130-400) K/uL BMP 04/21/22 06:49 Sodium 136 Potassium 4.3 D Chloride 106 Carbon Dioxide 24 BUN 14 Creatinine 0.66 Glucose 85 Calcium 9.0 Medications Administered Current Inpatient Medications Acetaminophen (Acetaminophen 325 Mg Tab) 650 mg PO Q6H PRN PRN Reason: Fever/pain Stop: 05/03/22 00:39 Last Admin: 04/21/22 01:54 Dose: 650 mg Albuterol (Albuterol Hfa 8 Gm Inhaler) 2 puffs INH Q6 PRN PRN Reason: Shortness Of Breath Or Wheezin Stop: 05/02/22 21:32 Last Admin: 04/21/22 02:22 Dose: 2 puffs Albuterol (Albut/Ipratrop 3mg/0.5mg Neb 3 Ml Vial) 3 ml INH QIDR PRN; Protocol PRN Reason: Shortness Of Breath Or Wheezing Stop: 05/02/22 21:32 Last Admin: 04/20/22 20:07 Dose: 3 ml Atorvastatin Calcium (Atorvastatin 20 Mg Tab) 20 mg PO QAM [facility] Stop: 05/03/22 08:59 Last Admin: 04/21/22 08:30 Dose: 20 mg Benzocaine (Benzocaine 20% (Orajel) 11.9 Gm Tube) 1 appln MT TID PRN PRN Reason: oral ulcer pain Stop: 05/04/22 13:02 Last Admin: 04/14/22 22:09 Dose: 1 appln Buprenorphine HCl (Pt's Own Med: Buprenorphine 15 Mcg/Patch Tdsy) 15 mcg TD Sa@1500 [facility] Stop: 05/07/22 14:59 Last Admin: 04/14/22 16:01 Dose: 15 mcg Carbidopa/Levodopa (Carbidopa/Levodopa 25/100mg Tab) 1 tab PO QID [facility] Stop: 05/02/22 21:32 Last Admin: 04/21/22 12:06 Dose: 1 tab Fish Oil ([place]-3 (Purified Fish Oil) 1 Gm Cap) 1 gm PO DAILY [facility] Stop: 05/03/22 08:59 Last Admin: 04/21/22 08:30 Dose: 1 gm Fluticasone Propionate (Fluticasone Propionate Na Spr 16 Gm Btl) 2 sprays ELYSE Q24H [facility] Stop: 05/19/22 16:44 Last Admin: 04/20/22 16:05 Dose: 2 sprays Fluticasone/Vilanterol (Fluticasone/Vilanterol 100/25mcg 14 Puffs/Inhaler) 1 puffs INH DAILY [facility] Stop: 05/03/22 08:59 Last Admin: 04/21/22 08:33 Dose: 1 puffs Furosemide (Furosemide 40 Mg Tab) 40 mg PO QAM [facility] Stop: 05/05/22 09:59 Last Admin: 04/20/22 08:28 Dose: Not Given Guaifenesin/Codeine Phosphate (Guaifenesin/Codeine 200mg/20mg 10ml Udc) 10 ml PO Q6H PRN PRN Reason: Cough Stop: 05/19/22 16:34 Last Admin: 04/21/22 01:55 Dose: 10 ml Hydroxyzine HCl (Hydroxyzine Hcl 10 Mg Tab) 10 mg PO Q12H PRN PRN Reason: anxiety and itchiness Stop: 05/16/22 10:57 Last Admin: 04/20/22 13:57 Dose: 10 mg Ipratropium [place] (Ipratropium [place] Nasal [place] 0.06% 15ml) 1 sprays ELYSE QID [facility] Stop: 05/02/22 21:32 Last Admin: 04/21/22 12:06 Dose: 1 sprays Lactobacillus Acidophilus (Advanced Probiotic 1250 Mg Capsule) 2 cap PO DAILY [facility] Stop: 05/03/22 08:59 Last Admin: 04/21/22 08:30 Dose: 2 cap Levothyroxine Sodium (Levothyroxine Sodium 50 Mcg Tablet) 50 mcg PO DAILYBB [facility] Stop: 05/03/22 06:29 Last Admin: 04/21/22 05:55 Dose: 50 mcg Linaclotide (Linaclotide 145 Mcg Capsule) 290 mcg PO DAILY [facility] Stop: 05/03/22 08:59 Last Admin: 04/21/22 08:31 Dose: Not Given Metaxalone (Metaxalone 800 Mg Tablet) 400 mg PO TID [facility] Stop: 05/06/22 13:59 Last Admin: 04/20/22 08:20 Dose: 400 mg Metoprolol Tartrate (Metoprolol Tartrate 25 Mg Tab) 12.5 mg PO DAILY [facility] Stop: 05/03/22 08:59 Last Admin: 04/21/22 08:31 Dose: Not Given Miscellaneous (Remove & Waste Butrans Patch 1 Ea Ea) 1 each N/A Sa@1459 [facility] Stop: 05/07/22 14:58 Last Admin: 04/14/22 16:02 Dose: 1 each Miscellaneous (Check Buprenorphine Patch) 1 each N/A QS [facility] Stop: 05/07/22 15:59 Last Admin: 04/21/22 08:26 Dose: 1 each Montelukast Sodium (Montelukast Sodium 10 Mg Tablet) 10 mg PO HS [facility] Stop: 05/02/22 21:32 Last Admin: 04/20/22 19:51 Dose: 10 mg Multi-Ingredient Cream (Eucerin Cr 120 Gm Jar) 1 appln EXT BID PRN PRN Reason: dry skin Stop: 05/21/22 14:24 Multivitamins/Minerals (Cerovite Adv Formula Tab) 1 tab PO DAILY [facility] Stop: 05/03/22 08:59 Last Admin: 04/21/22 08:31 Dose: 1 tab Pantoprazole Sodium (Pantoprazole 40 Mg Tab) 40 mg PO DAILY [facility] Stop: 05/03/22 08:59 Last Admin: 04/21/22 08:31 Dose: 40 mg Potassium Chloride (Potassium Chloride 20 Meq/15 Ml Udc) 20 meq PO BID [facility] Stop: 05/21/22 08:59 Last Admin: 04/21/22 08:32 Dose: 20 meq Ropinirole HCl (Ropinirole Hcl 1 Mg Tablet) 1 mg PO TID@0800,1200,1600 [facility] Stop: 05/03/22 07:59 Last Admin: 04/21/22 12:06 Dose: 1 mg Ropinirole HCl (Ropinirole Hcl 1 Mg Tablet) 2 mg PO HS [facility] Stop: 05/02/22 21:32 Last Admin: 04/20/22 19:50 Dose: 2 mg Senna/Docusate Sodium (Docusate Sodium/Senna 50/8.6mg Tab) 1 tab PO BID [facility] Stop: 05/13/22 21:44 Last Admin: 04/21/22 08:33 Dose: Not Given Thiamine HCl (Thiamine Hcl 100 Mg Tab) 100 mg PO BID [facility] Stop: 05/02/22 21:32 Last Admin: 04/21/22 08:31 Dose: 100 mg Warfarin Sodium (Warfarin Sod 3 Mg Tab) 3 mg PO DAILY@1600 [facility] Stop: 05/19/22 15:59 Last Admin: 04/20/22 16:06 Dose: 3 mg
[2022-04-21] MEDS ORDERED: SODIUM CHLORIDE 0.9% 1000ML 500 ML IV ONE (18:19)
[2022-04-21] MEDS: hydrOXYzine HCl 10 MG TAB PO PRN (20:56)
[2022-04-21] MEDS: MONTELUKAST SODIUM 10 MG TABLET PO SCH (20:56)
[2022-04-22] MEDS: CHECK BUPRENORPHINE PATCH SCH ×4 (00:42→23:28)
[2022-04-22] MEDS: LEVOTHYROXINE SODIUM 50 MCG TABLET PO SCH (05:48)
[2022-04-22] MEDS: POTASSIUM CHLORIDE 20 MEQ/15 ML UDC PO SCH ×2 (07:36→21:23)
[2022-04-22] MEDS: FLUTICASONE/VILANTEROL 100/25MCG 14 PUFFS/INHALER INH SCH (07:36)
[2022-04-22] MEDS: rOPINIRole HCL 1 MG TABLET PO SCH ×4 (07:37→21:24)
[2022-04-22] MEDS: CARBIDOPA/LEVODOPA 25/100MG TAB PO SCH ×4 (07:37→21:22)
[2022-04-22] MEDS: THIAMINE HCL 100 MG TAB PO SCH ×2 (07:38→21:21)
[2022-04-22] MEDS: OMEGA-3 (PURIFIED FISH OIL) 1 GM CAP PO SCH (07:38)
[2022-04-22] MEDS: ADVANCED PROBIOTIC 1250 MG CAPSULE PO SCH (07:39)
[2022-04-22] MEDS: ATORVASTATIN 20 MG TAB PO SCH (07:40)
[2022-04-22] MEDS: IPRATROPIUM BROMIDE NASAL SPRAY 0.06% 15ML NAE SCH ×4 (07:40→21:33)
[2022-04-22] MEDS: PANTOprazole 40 MG TAB PO SCH (07:40)
[2022-04-22] MEDS: LINACLOTIDE 145 MCG CAPSULE PO SCH (07:41)
[2022-04-22] MEDS: CEROVITE ADV FORMULA TAB PO SCH (07:41)
[2022-04-22 07:42] LABS: INR 2.2 (0.9-1.1); Prothrombin Time 22.7 Seconds (9.0-12.0)
[2022-04-22] MEDS: DOCUSATE SODIUM/SENNA 50/8.6MG TAB PO SCH ×2 (07:44→21:25)
[2022-04-22] MEDS: METOPROLOL TARTRATE 25 MG TAB PO SCH (07:44)
[2022-04-22] MEDS: ACETAMINOPHEN 325 MG TAB PO PRN ×2 (09:54→22:21)
--- NOTE | 2022-04-22 13:12 | Hospitalist Progress Note ---
Date of Service April 22, 2022 Assessment & Plan (1) COVID-19: Plan: acquired covid-19 infection, not requiring oxygen supplementation. Cont Robitussin AC for cough PRN and flonase nasal spray for symptomatic relief of sinus congestion. Cont isolation precautions. (2) Unable to care for self: (3) Ambulatory dysfunction: Plan: Patient was brought to the ER for ambulatory dysfunction and weakness after Adult Protective Services found her sitting in a chair and not able to care for herself. LE edema Swelling and skin changes are chronic to some degree at baseline Doppler showed no lower leg fluid collection to suggest hematoma. b/L edema No signs of infection at this time and just finished course of abx on 04/07/2022 Lasix 40mg daily was held in setting of persistent hypokalemia and hypotension. Ambulatory dysfunction Generalized weakness H/O R rotator cuff tear --plan for surgery as outpatient Shoulder Xray showed no acute bony abnormality is identified. fall precautions Continue PT/OT eval Waiting for placement On skelaxin, however, has persistent hypotension and ?mood issues/irritability. This has been held and she is aware and is ok with this. Discussed polypharmacy effects on 04/21. 04/22: we discussed the importance of moving around inside the room. JAEL Due to dehydration from poor intake -resolved. Cr 1.8>>>1.3>1.04>0.94--->0.71 Avoid nephrotoxic agents as able Monitor renal function Monitor volume status IV fluids discontinued 04/04 Restarted on Lasix 04/05/2022 - switched to IV lasix 04/08/2022 due to worsening LE edema - Lasix held for ongoing hypotension. UTI H/O multiple UTIs in the past Urine culture growing Klebsiella pneumonia Rocephin - s/p 5 day course ended 04/07/2022 Chronic elevated troponin Possible related to elevate CK level Troponin 81 on admission Echo 02/08/2022: Mild LVH, EF: 60-65%, mild aortic regurgitation Continue metoprolol and plavix Denies any chest pain -no further workup Hypercoagulable state - initially INR supratherapeutic on admission and coumadin was held - INR normalized - Resumed Coumadin 04/05/2022 - daily INR while inpatient - trending up - no signs of bleeding - FOBT negative 04/08/2022 - INR 3.5-->2.6-->1.9--2.2 04/22: INR is 2.2 today which is goal, cont warfarin 3mg daily Chronic diastolic heart failure: Euvolemic-hold lasix as above. Parkinson's: chronic, stable. Continue carbidopa levodopa HTN: chronic, at goal. Continue metoprolol succinate Hypothyroidism: chronic, stable. Continue levothyroxine RLS: chronic, stable. Continue ropinirole Chronic anemia: Hgb stable No obvious source of bleeding Asthma: No signs acute exacerbation Continue home inhalers History gastric bypass with chronic constipation. Cont home linzess. History GERD: Continue PPI H/O Edenilson-Danlos syndrome stable DVT Px: coumadin Code Status: Full code Dispo-awaiting placement which will now be delayed because of symptomatic covid- 19 infection CM and patient are aware. [facility] and Anticipated Discharge Date Admission Date: April 02, 2022 Subjective 72 yo F admitted with inability to care for self. She has mood disorder and multiple comorbidities including chronic pain, opiate dependent. She has acquired covid-19 infection while admitted. She reports bad nasal stuffiness is improved She is doing "as well as can be expected" She is tolerating PO Review of Systems Review of Systems: All systems were reviewed and negative except as indicated on subjective above. Physical Exam Physical Exam: CONSTITUTIONAL: WNWD, vitals as above, NAD EYES: normal conjunctivae, no scleral icterus ENT: external ear and nose normal,MMM NECK: trachea midline, RESPIRATORY: clear to auscultation bilaterally, no crackles, rales or wheezes, normal respiratory effort CARDIOVASCULAR: regular rate and rhythm, 3/6 CELINA, no gallops or rubs, no JVD, no peripheral edema CHEST: inspection of chest was normal GASTROINTESTINAL: soft, nontender, ND, no guarding. MUSCULOSKELETAL: strength 5/5 throughout, head is normocephalic and atraumatic, SKIN: warm and dry NEUROLOGIC: CN 2-12 grossly intact, no sensory deficit, normal cognition, normal speech, no tremor PSYCHIATRIC: alert cooperative and oriented to person, place and time. Results & Data Results & Data ([facility]) Vital Signs (Past 12 Hours) Vital Signs Temp Pulse Resp BP BP Pulse Ox O2 Del Method 04/22/22 12:19 36.4 C L 70 14 93/65 L 96 Room Air 04/22/22 07:30 Room Air 04/22/22 07:46 36.5 C 84 16 113/79 97 Room Air 04/22/22 02:54 20 90/55 L 97 Room Air Diagnostic Findings Current Inpatient Medications Acetaminophen (Acetaminophen 325 Mg Tab) 650 mg PO Q6H PRN PRN Reason: Fever/pain Stop: 05/03/22 00:39 Last Admin: 04/22/22 09:54 Dose: 650 mg Albuterol (Albuterol Hfa 8 Gm Inhaler) 2 puffs INH Q6 PRN PRN Reason: Shortness Of Breath Or Wheezin Stop: 05/02/22 21:32 Last Admin: 04/21/22 02:22 Dose: 2 puffs Albuterol (Albut/Ipratrop 3mg/0.5mg Neb 3 Ml Vial) 3 ml INH QIDR PRN; Protocol PRN Reason: Shortness Of Breath Or Wheezing Stop: 05/02/22 21:32 Last Admin: 04/20/22 20:07 Dose: 3 ml Atorvastatin Calcium (Atorvastatin 20 Mg Tab) 20 mg PO QAM [facility] Stop: 05/03/22 08:59 Last Admin: 04/22/22 07:40 Dose: 20 mg Benzocaine (Benzocaine 20% (Orajel) 11.9 Gm Tube) 1 appln MT TID PRN PRN Reason: oral ulcer pain Stop: 05/04/22 13:02 Last Admin: 04/14/22 22:09 Dose: 1 appln Buprenorphine HCl (Pt's Own Med: Buprenorphine 15 Mcg/Patch Tdsy) 15 mcg TD Sa@1500 [facility] Stop: 05/07/22 14:59 Last Admin: 04/21/22 16:00 Dose: 15 mcg Carbidopa/Levodopa (Carbidopa/Levodopa 25/100mg Tab) 1 tab PO QID [facility] Stop: 05/02/22 21:32 Last Admin: 04/22/22 12:19 Dose: 1 tab Fish Oil ([place]-3 (Purified Fish Oil) 1 Gm Cap) 1 gm PO DAILY [facility] Stop: 05/03/22 08:59 Last Admin: 04/22/22 07:38 Dose: 1 gm Fluticasone Propionate (Fluticasone Propionate Na Spr 16 Gm Btl) 2 sprays ELYSE Q24H [facility] Stop: 05/19/22 16:44 Last Admin: 04/21/22 16:02 Dose: 2 sprays Fluticasone/Vilanterol (Fluticasone/Vilanterol 100/25mcg 14 Puffs/Inhaler) 1 puffs INH DAILY [facility] Stop: 05/03/22 08:59 Last Admin: 04/22/22 07:36 Dose: 1 puffs Furosemide (Furosemide 40 Mg Tab) 40 mg PO QAM [facility] Stop: 05/05/22 09:59 Last Admin: 04/20/22 08:28 Dose: Not Given Guaifenesin/Codeine Phosphate (Guaifenesin/Codeine 200mg/20mg 10ml Udc) 10 ml PO Q6H PRN PRN Reason: Cough Stop: 05/19/22 16:34 Last Admin: 04/22/22 09:54 Dose: 10 ml Hydroxyzine HCl (Hydroxyzine Hcl 10 Mg Tab) 10 mg PO Q12H PRN PRN Reason: anxiety and itchiness Stop: 05/16/22 10:57 Last Admin: 04/21/22 20:56 Dose: 10 mg Ipratropium [place] (Ipratropium [place] Nasal [place] 0.06% 15ml) 1 sprays ELYSE QID [facility] Stop: 05/02/22 21:32 Last Admin: 04/22/22 07:40 Dose: 1 sprays Lactobacillus Acidophilus (Advanced Probiotic 1250 Mg Capsule) 2 cap PO DAILY [facility] Stop: 05/03/22 08:59 Last Admin: 04/22/22 07:39 Dose: 2 cap Levothyroxine Sodium (Levothyroxine Sodium 50 Mcg Tablet) 50 mcg PO DAILYBB [facility] Stop: 05/03/22 06:29 Last Admin: 04/22/22 05:48 Dose: 50 mcg Linaclotide (Linaclotide 145 Mcg Capsule) 290 mcg PO DAILY [facility] Stop: 05/03/22 08:59 Last Admin: 04/22/22 07:41 Dose: 290 mcg Metaxalone (Metaxalone 800 Mg Tablet) 400 mg PO TID [facility] Stop: 05/06/22 13:59 Last Admin: 04/20/22 08:20 Dose: 400 mg Metoprolol Tartrate (Metoprolol Tartrate 25 Mg Tab) 12.5 mg PO DAILY [facility] Stop: 05/03/22 08:59 Last Admin: 04/22/22 07:44 Dose: 12.5 mg Miscellaneous (Remove & Waste Butrans Patch 1 Ea Ea) 1 each N/A Sa@1459 [facility] Stop: 05/07/22 14:58 Last Admin: 04/21/22 16:00 Dose: 1 each Miscellaneous (Check Buprenorphine Patch) 1 each N/A QS [facility] Stop: 05/07/22 15:59 Last Admin: 04/22/22 09:46 Dose: 1 each Montelukast Sodium (Montelukast Sodium 10 Mg Tablet) 10 mg PO HS [facility] Stop: 05/02/22 21:32 Last Admin: 04/21/22 20:56 Dose: 10 mg Multi-Ingredient Cream (Eucerin Cr 120 Gm Jar) 1 appln EXT BID PRN PRN Reason: dry skin Stop: 05/21/22 14:24 Multivitamins/Minerals (Cerovite Adv Formula Tab) 1 tab PO DAILY [facility] Stop: 05/03/22 08:59 Last Admin: 04/22/22 07:41 Dose: 1 tab Pantoprazole Sodium (Pantoprazole 40 Mg Tab) 40 mg PO DAILY [facility] Stop: 05/03/22 08:59 Last Admin: 04/22/22 07:40 Dose: 40 mg Potassium Chloride (Potassium Chloride 20 Meq/15 Ml Udc) 20 meq PO BID [facility] Stop: 05/21/22 08:59 Last Admin: 04/22/22 07:36 Dose: 20 meq Ropinirole HCl (Ropinirole Hcl 1 Mg Tablet) 1 mg PO TID@0800,1200,1600 [facility] Stop: 05/03/22 07:59 Last Admin: 04/22/22 12:18 Dose: 1 mg Ropinirole HCl (Ropinirole Hcl 1 Mg Tablet) 2 mg PO HS [facility] Stop: 05/02/22 21:32 Last Admin: 04/21/22 20:56 Dose: 2 mg Senna/Docusate Sodium (Docusate Sodium/Senna 50/8.6mg Tab) 1 tab PO BID [facility] Stop: 05/13/22 21:44 Last Admin: 04/22/22 07:44 Dose: Not Given Thiamine HCl (Thiamine Hcl 100 Mg Tab) 100 mg PO BID [facility] Stop: 05/02/22 21:32 Last Admin: 04/22/22 07:38 Dose: 100 mg Warfarin Sodium (Warfarin Sod 3 Mg Tab) 3 mg PO DAILY@1600 [facility] Stop: 05/22/22 15:59 Medications Administered Current Inpatient Medications Acetaminophen (Acetaminophen 325 Mg Tab) 650 mg PO Q6H PRN PRN Reason: Fever/pain Stop: 05/03/22 00:39 Last Admin: 04/22/22 09:54 Dose: 650 mg Albuterol (Albuterol Hfa 8 Gm Inhaler) 2 puffs INH Q6 PRN PRN Reason: Shortness Of Breath Or Wheezin Stop: 05/02/22 21:32 Last Admin: 04/21/22 02:22 Dose: 2 puffs Albuterol (Albut/Ipratrop 3mg/0.5mg Neb 3 Ml Vial) 3 ml INH QIDR PRN; Protocol PRN Reason: Shortness Of Breath Or Wheezing Stop: 05/02/22 21:32 Last Admin: 04/20/22 20:07 Dose: 3 ml Atorvastatin Calcium (Atorvastatin 20 Mg Tab) 20 mg PO QAM [facility] Stop: 05/03/22 08:59 Last Admin: 04/22/22 07:40 Dose: 20 mg Benzocaine (Benzocaine 20% (Orajel) 11.9 Gm Tube) 1 appln MT TID PRN PRN Reason: oral ulcer pain Stop: 05/04/22 13:02 Last Admin: 04/14/22 22:09 Dose: 1 appln Buprenorphine HCl (Pt's Own Med: Buprenorphine 15 Mcg/Patch Tdsy) 15 mcg TD Sa@1500 [facility] Stop: 05/07/22 14:59 Last Admin: 04/21/22 16:00 Dose: 15 mcg Carbidopa/Levodopa (Carbidopa/Levodopa 25/100mg Tab) 1 tab PO QID [facility] Stop: 05/02/22 21:32 Last Admin: 04/22/22 12:19 Dose: 1 tab Fish Oil ([place]-3 (Purified Fish Oil) 1 Gm Cap) 1 gm PO DAILY [facility] Stop: 05/03/22 08:59 Last Admin: 04/22/22 07:38 Dose: 1 gm Fluticasone Propionate (Fluticasone Propionate Na Spr 16 Gm Btl) 2 sprays ELYSE Q24H [facility] Stop: 05/19/22 16:44 Last Admin: 04/21/22 16:02 Dose: 2 sprays Fluticasone/Vilanterol (Fluticasone/Vilanterol 100/25mcg 14 Puffs/Inhaler) 1 puffs INH DAILY [facility] Stop: 05/03/22 08:59 Last Admin: 04/22/22 07:36 Dose: 1 puffs Furosemide (Furosemide 40 Mg Tab) 40 mg PO QAM [facility] Stop: 05/05/22 09:59 Last Admin: 04/20/22 08:28 Dose: Not Given Guaifenesin/Codeine Phosphate (Guaifenesin/Codeine 200mg/20mg 10ml Udc) 10 ml PO Q6H PRN PRN Reason: Cough Stop: 05/19/22 16:34 Last Admin: 04/22/22 09:54 Dose: 10 ml Hydroxyzine HCl (Hydroxyzine Hcl 10 Mg Tab) 10 mg PO Q12H PRN PRN Reason: anxiety and itchiness Stop: 05/16/22 10:57 Last Admin: 04/21/22 20:56 Dose: 10 mg Ipratropium [place] (Ipratropium [place] Nasal [place] 0.06% 15ml) 1 sprays ELYSE QID [facility] Stop: 05/02/22 21:32 Last Admin: 04/22/22 07:40 Dose: 1 sprays Lactobacillus Acidophilus (Advanced Probiotic 1250 Mg Capsule) 2 cap PO DAILY [facility] Stop: 05/03/22 08:59 Last Admin: 04/22/22 07:39 Dose: 2 cap Levothyroxine Sodium (Levothyroxine Sodium 50 Mcg Tablet) 50 mcg PO DAILYBB [facility] Stop: 05/03/22 06:29 Last Admin: 04/22/22 05:48 Dose: 50 mcg Linaclotide (Linaclotide 145 Mcg Capsule) 290 mcg PO DAILY [facility] Stop: 05/03/22 08:59 Last Admin: 04/22/22 07:41 Dose: 290 mcg Metaxalone (Metaxalone 800 Mg Tablet) 400 mg PO TID [facility] Stop: 05/06/22 13:59 Last Admin: 04/20/22 08:20 Dose: 400 mg Metoprolol Tartrate (Metoprolol Tartrate 25 Mg Tab) 12.5 mg PO DAILY [facility] Stop: 05/03/22 08:59 Last Admin: 04/22/22 07:44 Dose: 12.5 mg Miscellaneous (Remove & Waste Butrans Patch 1 Ea Ea) 1 each N/A Sa@1459 [facility] Stop: 05/07/22 14:58 Last Admin: 04/21/22 16:00 Dose: 1 each Miscellaneous (Check Buprenorphine Patch) 1 each N/A QS [facility] Stop: 05/07/22 15:59 Last Admin: 04/22/22 09:46 Dose: 1 each Montelukast Sodium (Montelukast Sodium 10 Mg Tablet) 10 mg PO HS [facility] Stop: 05/02/22 21:32 Last Admin: 04/21/22 20:56 Dose: 10 mg Multi-Ingredient Cream (Eucerin Cr 120 Gm Jar) 1 appln EXT BID PRN PRN Reason: dry skin Stop: 05/21/22 14:24 Multivitamins/Minerals (Cerovite Adv Formula Tab) 1 tab PO DAILY [facility] Stop: 05/03/22 08:59 Last Admin: 04/22/22 07:41 Dose: 1 tab Pantoprazole Sodium (Pantoprazole 40 Mg Tab) 40 mg PO DAILY [facility] Stop: 05/03/22 08:59 Last Admin: 04/22/22 07:40 Dose: 40 mg Potassium Chloride (Potassium Chloride 20 Meq/15 Ml Udc) 20 meq PO BID [facility] Stop: 05/21/22 08:59 Last Admin: 04/22/22 07:36 Dose: 20 meq Ropinirole HCl (Ropinirole Hcl 1 Mg Tablet) 1 mg PO TID@0800,1200,1600 [facility] Stop: 05/03/22 07:59 Last Admin: 04/22/22 12:18 Dose: 1 mg Ropinirole HCl (Ropinirole Hcl 1 Mg Tablet) 2 mg PO HS [facility] Stop: 05/02/22 21:32 Last Admin: 04/21/22 20:56 Dose: 2 mg Senna/Docusate Sodium (Docusate Sodium/Senna 50/8.6mg Tab) 1 tab PO BID [facility] Stop: 05/13/22 21:44 Last Admin: 04/22/22 07:44 Dose: Not Given Thiamine HCl (Thiamine Hcl 100 Mg Tab) 100 mg PO BID [facility] Stop: 05/02/22 21:32 Last Admin: 04/22/22 07:38 Dose: 100 mg Warfarin Sodium (Warfarin Sod 3 Mg Tab) 3 mg PO DAILY@1600 [facility] Stop: 05/22/22 15:59
[2022-04-22] MEDS: FLUTICASONE PROPIONATE NA SPR 16 GM BTL NAE SCH (17:12)
[2022-04-22] MEDS: WARFARIN SOD 3 MG TAB PO SCH (17:13)
[2022-04-22] MEDS: MONTELUKAST SODIUM 10 MG TABLET PO SCH (21:21)
[2022-04-23] MEDS ORDERED: GABAPENTIN 100 MG CAP PO STA (05:10)
[2022-04-23] MEDS: LEVOTHYROXINE SODIUM 50 MCG TABLET PO SCH (05:57)
[2022-04-23] MEDS: ACETAMINOPHEN 325 MG TAB PO PRN ×2 (05:57→22:21)
[2022-04-23 07:36] LABS: Hematocrit (blood only) 29.6 % (34.1-44.9); Hemoglobin 9.3 g/dl (12.0-16.0); Mean Corpuscular Hemoglobin 30.4 pg (25.0-34.0); Mean Corpuscular Hgb Conc 31.4 g/dL (32.0-36.0); Mean Corpuscular Volume 96.7 fL (80.0-100.0); Mean Platelet Volume 9.8 fL (9.4-12.3); Platelet Count 351 K/uL (130-400); RDW Coefficient of Variation 16.5 % (11.5-14.5); RDW Standard Deviation 58.7 fL (36.4-46.3); Red Blood Count 3.06 M/uL (3.93-5.22)
[2022-04-23 07:48] LABS: INR 2.7 (0.9-1.1); Prothrombin Time 27.4 Seconds (9.0-12.0)
[2022-04-23 07:58] LABS: BUN Creatinine Ratio 17.5 (10-20); C Reactive Protein 3.81 mg/dl (0-0.5); Calcium 9.1 mg/dl (8.5-10.1); Est GFR (African American) 103.9 ml/min; Est GFR (Non-African American) 89.6 ml/min; Potassium 3.9 mmol/L (3.5-5.1)
[2022-04-23] MEDS: rOPINIRole HCL 1 MG TABLET PO SCH ×4 (08:05→20:52)
[2022-04-23] MEDS: CARBIDOPA/LEVODOPA 25/100MG TAB PO SCH ×4 (08:05→20:52)
[2022-04-23] MEDS: METOPROLOL TARTRATE 25 MG TAB PO SCH (08:06)
[2022-04-23] MEDS: OMEGA-3 (PURIFIED FISH OIL) 1 GM CAP PO SCH (08:06)
[2022-04-23] MEDS: ADVANCED PROBIOTIC 1250 MG CAPSULE PO SCH (08:07)
[2022-04-23] MEDS: THIAMINE HCL 100 MG TAB PO SCH ×2 (08:07→20:52)
[2022-04-23] MEDS: CEROVITE ADV FORMULA TAB PO SCH (08:07)
[2022-04-23] MEDS: LINACLOTIDE 145 MCG CAPSULE PO SCH (08:08)
[2022-04-23] MEDS: PANTOprazole 40 MG TAB PO SCH (08:08)
[2022-04-23] MEDS: CHECK BUPRENORPHINE PATCH SCH ×2 (08:09→16:58)
[2022-04-23] MEDS: ATORVASTATIN 20 MG TAB PO SCH (08:09)
[2022-04-23] MEDS: DOCUSATE SODIUM/SENNA 50/8.6MG TAB PO SCH ×2 (08:10→20:51)
[2022-04-23] MEDS: FLUTICASONE/VILANTEROL 100/25MCG 14 PUFFS/INHALER INH SCH (08:10)
[2022-04-23] MEDS: IPRATROPIUM BROMIDE NASAL SPRAY 0.06% 15ML NAE SCH ×4 (08:10→20:51)
[2022-04-23] MEDS: POTASSIUM CHLORIDE 20 MEQ/15 ML UDC PO SCH ×2 (08:10→20:54)
[2022-04-23] MEDS: hydrOXYzine HCl 10 MG TAB PO PRN ×2 (08:34→22:22)
[2022-04-23] MEDS: WARFARIN SOD 3 MG TAB PO SCH (16:58)
--- NOTE | 2022-04-23 16:58 | Hospitalist Progress Note ---
Date of Service April 23, 2022 Assessment & Plan (1) COVID-19: Plan: acquired covid-19 infection, not requiring oxygen supplementation. Cont Robitussin AC for cough PRN and flonase nasal spray for symptomatic relief of sinus congestion. Cont isolation precautions. Albuterol PRN coughing (2) Unable to care for self: (3) Ambulatory dysfunction: Plan: Patient was brought to the ER for ambulatory dysfunction and weakness after Adult Protective Services found her sitting in a chair and not able to care for herself. LE edema Swelling and skin changes are chronic to some degree at baseline Doppler showed no lower leg fluid collection to suggest hematoma. b/L edema No signs of infection at this time and just finished course of abx on 04/07/2022 Lasix 40mg daily was held in setting of persistent hypokalemia and hypotension. Ambulatory dysfunction Generalized weakness H/O R rotator cuff tear --plan for surgery as outpatient Shoulder Xray showed no acute bony abnormality is identified. fall precautions Continue PT/OT eval Waiting for placement Skelaxin was stopped. Discussed polypharmacy effects on 04/21. 04/22: we discussed the importance of moving around inside the room. JAEL Due to dehydration from poor intake -resolved. Cr 1.8>>>1.3>1.04>0.94--->0.71 Avoid nephrotoxic agents as able Monitor renal function Monitor volume status IV fluids discontinued 04/04 Restarted on Lasix 04/05/2022 - switched to IV lasix 04/08/2022 due to worsening LE edema - Lasix held for ongoing hypotension. UTI H/O multiple UTIs in the past Urine culture growing Klebsiella pneumonia Rocephin - s/p 5 day course ended 04/07/2022 Chronic elevated troponin Possible related to elevate CK level Troponin 81 on admission Echo 02/08/2022: Mild LVH, EF: 60-65%, mild aortic regurgitation Continue metoprolol and plavix Denies any chest pain -no further workup Hypercoagulable state - initially INR supratherapeutic on admission and coumadin was held - INR normalized - Resumed Coumadin 04/05/2022 - daily INR while inpatient - trending up - no signs of bleeding - FOBT negative 04/08/2022 - INR 3.5-->2.6-->1.9--2.2 INR remains at goal, cont current therapy Chronic diastolic heart failure: Euvolemic-hold lasix as above. Parkinson's: chronic, stable. Continue carbidopa levodopa HTN: chronic, at goal. Continue metoprolol succinate Hypothyroidism: chronic, stable. Continue levothyroxine RLS: chronic, worse while more bedbound recently. Ambulation encouraged. Continue ropinirole, OK to have an additional 0.5mg dose in addition to vystaril 10mg if symptoms become extreme. Really need to push the ambulation, which is a struggle because she has to stay inside the room. Chronic anemia: Hgb stable No obvious source of bleeding, likely related to chronic disease. Asthma: No signs acute exacerbation Continue home inhalers, albuterol PRN coughing fits. History gastric bypass with chronic constipation. Cont home linzess. History GERD: Continue PPI H/O Edenilson-Danlos syndrome stable DVT Px: coumadin Code Status: Full code Dispo-awaiting placement which will now be delayed because of symptomatic covid- 19 infection CM and patient are aware. Leny Breen DO [facility] Admission and Anticipated Discharge Date Admission Date: April 02, 2022 Subjective 72 yo F admitted with inability to care for self. She has mood disorder and multiple comorbidities including chronic pain, opiate dependent. She has acquired covid-19 infection while admitted. She reports having worsening of RLS overnight. States that at home she takes additional requip +/- Vystaril which helps her after 20 minutes States she is having a hard time not being able to freely walk around in the room and thinks this is contributing to her leg symptoms. Having occasional coughing fits. Review of Systems Review of Systems: All systems were reviewed and negative except as indicated on subjective above. Physical Exam Physical Exam: CONSTITUTIONAL: WNWD, vitals as above, NAD EYES: normal conjunctivae, no scleral icterus ENT: external ear and nose normal,MMM NECK: trachea midline, RESPIRATORY: clear to auscultation bilaterally, no crackles, rales or wheezes, normal respiratory effort CARDIOVASCULAR: regular rate and rhythm, 3/6 CELINA, no gallops or rubs, no JVD, no peripheral edema CHEST: inspection of chest was normal GASTROINTESTINAL: soft, nontender, ND, no guarding. MUSCULOSKELETAL: strength 5/5 throughout, head is normocephalic and atraumatic, SKIN: warm and dry NEUROLOGIC: CN 2-12 grossly intact, no sensory deficit, normal cognition, normal speech, no tremor PSYCHIATRIC: alert cooperative and oriented to person, place and time. Results & Data Results & Data ([facility]) Vital Signs (Past 12 Hours) Vital Signs Temp Pulse Resp BP Pulse Ox O2 Del Method 04/23/22 14:41 36.4 C L 71 16 92/62 L 98 Room Air 04/23/22 10:08 Room Air 04/23/22 08:04 36.3 C L 84 20 109/74 96 Room Air Laboratory Results Short CBC 04/23/22 Range/Units 07:21 WBC 3.80 L (4.8-10.8) K/ul Hgb 9.3 L (12.0-16.0) g/dl Hct 29.6 L (34.1-44.9) % Plt Count 351 (130-400) K/uL BMP 04/23/22 07:21 Sodium 137 Potassium 3.9 Chloride 108 H Carbon Dioxide 23 BUN 11 Creatinine 0.63 Glucose 103 H Calcium 9.1 Medications Administered Current Inpatient Medications Acetaminophen (Acetaminophen 325 Mg Tab) 650 mg PO Q6H PRN PRN Reason: Fever/pain Stop: 05/03/22 00:39 Last Admin: 04/23/22 05:57 Dose: 650 mg Albuterol (Albuterol Hfa 8 Gm Inhaler) 2 puffs INH Q6 PRN PRN Reason: Shortness Of Breath Or Wheezin Stop: 05/02/22 21:32 Last Admin: 04/21/22 02:22 Dose: 2 puffs Albuterol (Albut/Ipratrop 3mg/0.5mg Neb 3 Ml Vial) 3 ml INH QIDR PRN; Protocol PRN Reason: Shortness Of Breath Or Wheezing Stop: 05/02/22 21:32 Last Admin: 04/20/22 20:07 Dose: 3 ml Atorvastatin Calcium (Atorvastatin 20 Mg Tab) 20 mg PO QAM [facility] Stop: 05/03/22 08:59 Last Admin: 04/23/22 08:09 Dose: 20 mg Benzocaine (Benzocaine 20% (Orajel) 11.9 Gm Tube) 1 appln MT TID PRN PRN Reason: oral ulcer pain Stop: 05/04/22 13:02 Last Admin: 04/14/22 22:09 Dose: 1 appln Buprenorphine HCl (Pt's Own Med: Buprenorphine 15 Mcg/Patch Tdsy) 15 mcg TD Sa@1500 [facility] Stop: 05/07/22 14:59 Last Admin: 04/21/22 16:00 Dose: 15 mcg Carbidopa/Levodopa (Carbidopa/Levodopa 25/100mg Tab) 1 tab PO QID [facility] Stop: 05/02/22 21:32 Last Admin: 04/23/22 12:19 Dose: 1 tab Fish Oil ([place]-3 (Purified Fish Oil) 1 Gm Cap) 1 gm PO DAILY [facility] Stop: 05/03/22 08:59 Last Admin: 04/23/22 08:06 Dose: 1 gm Fluticasone Propionate (Fluticasone Propionate Na Spr 16 Gm Btl) 2 sprays ELYSE Q24H [facility] Stop: 05/19/22 16:44 Last Admin: 04/22/22 17:12 Dose: 2 sprays Fluticasone/Vilanterol (Fluticasone/Vilanterol 100/25mcg 14 Puffs/Inhaler) 1 puffs INH DAILY [facility] Stop: 05/03/22 08:59 Last Admin: 04/23/22 08:10 Dose: 1 puffs Furosemide (Furosemide 40 Mg Tab) 40 mg PO QAM [facility] Stop: 05/05/22 09:59 Last Admin: 04/20/22 08:28 Dose: Not Given Guaifenesin/Codeine Phosphate (Guaifenesin/Codeine 200mg/20mg 10ml Udc) 10 ml PO Q6H PRN PRN Reason: Cough Stop: 05/19/22 16:34 Last Admin: 04/22/22 09:54 Dose: 10 ml Hydroxyzine HCl (Hydroxyzine Hcl 10 Mg Tab) 10 mg PO Q12H PRN PRN Reason: anxiety and itchiness Stop: 05/16/22 10:57 Last Admin: 04/23/22 08:34 Dose: 10 mg Ipratropium [place] (Ipratropium [place] Nasal [place] 0.06% 15ml) 1 sprays ELYSE QID [facility] Stop: 05/02/22 21:32 Last Admin: 04/23/22 12:19 Dose: 1 sprays Lactobacillus Acidophilus (Advanced Probiotic 1250 Mg Capsule) 2 cap PO DAILY [facility] Stop: 05/03/22 08:59 Last Admin: 04/23/22 08:07 Dose: 2 cap Levothyroxine Sodium (Levothyroxine Sodium 50 Mcg Tablet) 50 mcg PO DAILYBB [facility] Stop: 05/03/22 06:29 Last Admin: 04/23/22 05:57 Dose: 50 mcg Linaclotide (Linaclotide 145 Mcg Capsule) 290 mcg PO DAILY [facility] Stop: 05/03/22 08:59 Last Admin: 04/23/22 08:08 Dose: 290 mcg Metaxalone (Metaxalone 800 Mg Tablet) 400 mg PO TID [facility] Stop: 05/06/22 13:59 Last Admin: 04/20/22 08:20 Dose: 400 mg Metoprolol Tartrate (Metoprolol Tartrate 25 Mg Tab) 12.5 mg PO DAILY [facility] Stop: 05/03/22 08:59 Last Admin: 04/23/22 08:06 Dose: 12.5 mg Miscellaneous (Remove & Waste Butrans Patch 1 Ea Ea) 1 each N/A Sa@1459 [facility] Stop: 05/07/22 14:58 Last Admin: 04/21/22 16:00 Dose: 1 each Miscellaneous (Check Buprenorphine Patch) 1 each N/A QS [facility] Stop: 05/07/22 15:59 Last Admin: 04/23/22 08:09 Dose: 1 each Montelukast Sodium (Montelukast Sodium 10 Mg Tablet) 10 mg PO HS [facility] Stop: 05/02/22 21:32 Last Admin: 04/22/22 21:21 Dose: 10 mg Multi-Ingredient Cream (Eucerin Cr 120 Gm Jar) 1 appln EXT BID PRN PRN Reason: dry skin Stop: 05/21/22 14:24 Multivitamins/Minerals (Cerovite Adv Formula Tab) 1 tab PO DAILY [facility] Stop: 05/03/22 08:59 Last Admin: 04/23/22 08:07 Dose: 1 tab Pantoprazole Sodium (Pantoprazole 40 Mg Tab) 40 mg PO DAILY [facility] Stop: 05/03/22 08:59 Last Admin: 04/23/22 08:08 Dose: 40 mg Potassium Chloride (Potassium Chloride 20 Meq/15 Ml Udc) 20 meq PO BID [facility] Stop: 05/21/22 08:59 Last Admin: 04/23/22 08:10 Dose: 20 meq Ropinirole HCl (Ropinirole Hcl 1 Mg Tablet) 1 mg PO TID@0800,1200,1600 [facility] Stop: 05/03/22 07:59 Last Admin: 04/23/22 11:32 Dose: 1 mg Ropinirole HCl (Ropinirole Hcl 1 Mg Tablet) 2 mg PO HS [facility] Stop: 05/02/22 21:32 Last Admin: 04/22/22 21:24 Dose: 2 mg Senna/Docusate Sodium (Docusate Sodium/Senna 50/8.6mg Tab) 1 tab PO BID [facility] Stop: 05/13/22 21:44 Last Admin: 04/23/22 08:10 Dose: 1 tab Thiamine HCl (Thiamine Hcl 100 Mg Tab) 100 mg PO BID [facility] Stop: 05/02/22 21:32 Last Admin: 04/23/22 08:07 Dose: 100 mg Warfarin Sodium (Warfarin Sod 3 Mg Tab) 3 mg PO DAILY@1600 [facility] Stop: 05/22/22 15:59 Last Admin: 04/22/22 17:13 Dose: 3 mg
[2022-04-23] MEDS: FLUTICASONE PROPIONATE NA SPR 16 GM BTL NAE SCH (16:59)
[2022-04-23] MEDS: MONTELUKAST SODIUM 10 MG TABLET PO SCH (20:53)
[2022-04-24] MEDS: CHECK BUPRENORPHINE PATCH SCH ×3 (01:14→15:51)
[2022-04-24] MEDS ORDERED: rOPINIRole HCL 0.25 MG TABLET PO STA (01:25)
[2022-04-24] MEDS: LEVOTHYROXINE SODIUM 50 MCG TABLET PO SCH (05:02)
[2022-04-24] MEDS: ACETAMINOPHEN 325 MG TAB PO PRN ×2 (05:02→21:32)
[2022-04-24] MEDS: rOPINIRole HCL 1 MG TABLET PO SCH ×4 (07:49→21:35)
[2022-04-24] MEDS: ADVANCED PROBIOTIC 1250 MG CAPSULE PO SCH (07:50)
[2022-04-24] MEDS: METOPROLOL TARTRATE 25 MG TAB PO SCH (07:50)
[2022-04-24] MEDS: CARBIDOPA/LEVODOPA 25/100MG TAB PO SCH ×4 (07:50→21:33)
[2022-04-24] MEDS: OMEGA-3 (PURIFIED FISH OIL) 1 GM CAP PO SCH (07:50)
[2022-04-24] MEDS: CEROVITE ADV FORMULA TAB PO SCH (07:51)
[2022-04-24] MEDS: LINACLOTIDE 145 MCG CAPSULE PO SCH (07:51)
[2022-04-24] MEDS: ATORVASTATIN 20 MG TAB PO SCH (07:51)
[2022-04-24] MEDS: PANTOprazole 40 MG TAB PO SCH (07:52)
[2022-04-24] MEDS: DOCUSATE SODIUM/SENNA 50/8.6MG TAB PO SCH ×2 (07:52→22:17)
[2022-04-24] MEDS: THIAMINE HCL 100 MG TAB PO SCH ×2 (07:55→21:37)
[2022-04-24] MEDS: POTASSIUM CHLORIDE 20 MEQ/15 ML UDC PO SCH ×2 (07:55→21:36)
[2022-04-24] MEDS: IPRATROPIUM BROMIDE NASAL SPRAY 0.06% 15ML NAE SCH ×4 (07:56→21:33)
[2022-04-24] MEDS: FLUTICASONE/VILANTEROL 100/25MCG 14 PUFFS/INHALER INH SCH (07:56)
[2022-04-24] MEDS: hydrOXYzine HCl 10 MG TAB PO PRN ×2 (09:59→22:20)
--- NOTE | 2022-04-24 13:49 | Hospitalist Progress Note ---
Date of Service April 24, 2022 Assessment & Plan (1) COVID-19: Plan: acquired covid-19 infection, not requiring oxygen supplementation. Cont Robitussin AC for cough PRN and flonase nasal spray for symptomatic relief of sinus congestion. Cont isolation precautions. Albuterol PRN coughing (2) Unable to care for self: (3) Ambulatory dysfunction: Plan: Patient was brought to the ER for ambulatory dysfunction and weakness after Adult Protective Services found her sitting in a chair and not able to care for herself. LE edema Swelling and skin changes are chronic to some degree at baseline Doppler showed no lower leg fluid collection to suggest hematoma. b/L edema No signs of infection at this time and just finished course of abx on 04/07/2022 Lasix 40mg daily was held in setting of persistent hypokalemia and hypotension. Ambulatory dysfunction Generalized weakness H/O R rotator cuff tear --plan for surgery as outpatient Shoulder Xray showed no acute bony abnormality is identified. fall precautions Continue PT/OT eval Waiting for placement Skelaxin was stopped. Discussed polypharmacy effects on 04/21. 04/22: we discussed the importance of moving around inside the room. JAEL Due to dehydration from poor intake -resolved. Cr 1.8>>>1.3>1.04>0.94--->0.71 Avoid nephrotoxic agents as able Monitor renal function Monitor volume status IV fluids discontinued 04/04 Restarted on Lasix 04/05/2022 - switched to IV lasix 04/08/2022 due to worsening LE edema - Lasix held for ongoing hypotension. Hypotension: improved with holding Lasix, Skelaxin. Continues on Sinemet, Butrans patch, and requip. Polypharmacy is likely contributing to ongoing hypotension. UTI H/O multiple UTIs in the past Urine culture growing Klebsiella pneumonia Rocephin - s/p 5 day course ended 04/07/2022 Chronic elevated troponin Possible related to elevate CK level Troponin 81 on admission Echo 02/08/2022: Mild LVH, EF: 60-65%, mild aortic regurgitation Continue metoprolol and plavix Denies any chest pain -no further workup Hypercoagulable state - initially INR supratherapeutic on admission and coumadin was held - INR normalized - Resumed Coumadin 04/05/2022 - daily INR while inpatient - trending up - no signs of bleeding - FOBT negative 04/08/2022 - INR 3.5-->2.6-->1.9--2.2 INR remains at goal, cont current therapy Chronic diastolic heart failure: Euvolemic-hold lasix as above. Parkinson's: chronic, stable. Continue carbidopa levodopa HTN: chronic, at goal. Continue metoprolol succinate Hypothyroidism: chronic, stable. Continue levothyroxine RLS: chronic, worse while more bedbound recently. Ambulation encouraged. Continue ropinirole, OK to have an additional 0.5mg dose in addition to vystaril 10mg if symptoms become extreme. Added nightly magnesium. Really need to push the ambulation, which is a struggle because she has to stay inside the room. Chronic anemia: Hgb stable No obvious source of bleeding, likely related to chronic disease. Asthma: No signs acute exacerbation Continue home inhalers, albuterol PRN coughing fits. History gastric bypass with chronic constipation. Cont home linzess. History GERD: Continue PPI H/O Edenilson-Danlos syndrome stable DVT Px: coumadin Code Status: Full code Dispo-awaiting placement which will now be delayed because of symptomatic covid- 19 infection CM and patient are aware. Leny Breen DO [facility] Admission and Anticipated Discharge Date Admission Date: April 02, 2022 Subjective 72 yo F admitted with inability to care for self. She has mood disorder and multiple comorbidities including chronic pain, opiate dependent. She has acquired covid-19 infection while admitted. She reports having worsening of RLS overnight. Severe cramping in legs. +cough still present Review of Systems Review of Systems: All systems were reviewed and negative except as indicated on subjective above. Physical Exam Physical Exam: CONSTITUTIONAL: WNWD, vitals as above, NAD EYES: normal conjunctivae, no scleral icterus ENT: external ear and nose normal,MMM NECK: trachea midline, RESPIRATORY: clear to auscultation bilaterally, no crackles, rales or wheezes, normal respiratory effort CARDIOVASCULAR: regular rate and rhythm, 3/6 CELINA, no gallops or rubs, no JVD, no peripheral edema CHEST: inspection of chest was normal GASTROINTESTINAL: soft, nontender, ND, no guarding. MUSCULOSKELETAL: strength 5/5 throughout, head is normocephalic and atraumatic, SKIN: warm and dry NEUROLOGIC: CN 2-12 grossly intact, no sensory deficit, normal cognition, normal speech, no tremor PSYCHIATRIC: alert cooperative and oriented to person, place and time. Results & Data Results & Data ([facility]) Vital Signs (Past 12 Hours) Vital Signs Temp Pulse Resp BP Pulse Ox O2 Del Method 04/24/22 07:43 Room Air 04/24/22 07:38 36.6 C 81 18 138/93 97 Room Air 04/24/22 04:50 Room Air 04/24/22 04:49 36.7 C 73 16 103/71 100 Room Air Medications Administered Current Inpatient Medications Acetaminophen (Acetaminophen 325 Mg Tab) 650 mg PO Q6H PRN PRN Reason: Fever/pain Stop: 05/03/22 00:39 Last Admin: 04/24/22 05:02 Dose: 650 mg Albuterol (Albuterol Hfa 8 Gm Inhaler) 2 puffs INH Q6 PRN PRN Reason: Shortness Of Breath Or Wheezin Stop: 05/02/22 21:32 Last Admin: 04/21/22 02:22 Dose: 2 puffs Albuterol (Albut/Ipratrop 3mg/0.5mg Neb 3 Ml Vial) 3 ml INH QIDR PRN; Protocol PRN Reason: Shortness Of Breath Or Wheezing Stop: 05/02/22 21:32 Last Admin: 04/20/22 20:07 Dose: 3 ml Atorvastatin Calcium (Atorvastatin 20 Mg Tab) 20 mg PO QAM [facility] Stop: 05/03/22 08:59 Last Admin: 04/24/22 07:51 Dose: 20 mg Buprenorphine HCl (Pt's Own Med: Buprenorphine 15 Mcg/Patch Tdsy) 15 mcg TD Sa@1500 [facility] Stop: 05/07/22 14:59 Last Admin: 04/21/22 16:00 Dose: 15 mcg Carbidopa/Levodopa (Carbidopa/Levodopa 25/100mg Tab) 1 tab PO QID [facility] Stop: 05/02/22 21:32 Last Admin: 04/24/22 12:25 Dose: 1 tab Fish Oil ([place]-3 (Purified Fish Oil) 1 Gm Cap) 1 gm PO DAILY [facility] Stop: 05/03/22 08:59 Last Admin: 04/24/22 07:50 Dose: 1 gm Fluticasone Propionate (Fluticasone Propionate Na Spr 16 Gm Btl) 2 sprays ELYSE Q24H [facility] Stop: 05/19/22 16:44 Last Admin: 04/23/22 16:59 Dose: 2 sprays Fluticasone/Vilanterol (Fluticasone/Vilanterol 100/25mcg 14 Puffs/Inhaler) 1 pu ffs INH DAILY [facility] Stop: 05/03/22 08:59 Last Admin: 04/24/22 07:56 Dose: 1 puffs Furosemide (Furosemide 40 Mg Tab) 40 mg PO QAM [facility] Stop: 05/05/22 09:59 Last Admin: 04/20/22 08:28 Dose: Not Given Guaifenesin/Codeine Phosphate (Guaifenesin/Codeine 200mg/20mg 10ml Udc) 10 ml PO Q6H PRN PRN Reason: Cough Stop: 05/19/22 16:34 Last Admin: 04/22/22 09:54 Dose: 10 ml Hydroxyzine HCl (Hydroxyzine Hcl 10 Mg Tab) 10 mg PO Q12H PRN PRN Reason: anxiety and itchiness Stop: 05/16/22 10:57 Last Admin: 04/24/22 09:59 Dose: 10 mg Sodium Chloride (Nss) 250 mls @ 500 mls/hr IV .Q30M ONE Stop: 04/25/22 00:14 Last Infusion: 04/24/22 01:11 Dose: Infused Ipratropium [place] (Ipratropium [place] Nasal [place] 0.06% 15ml) 1 sprays ELYSE QID [facility] Stop: 05/02/22 21:32 Last Admin: 04/24/22 12:25 Dose: 1 sprays Lactobacillus Acidophilus (Advanced Probiotic 1250 Mg Capsule) 2 cap PO DAILY [facility] Stop: 05/03/22 08:59 Last Admin: 04/24/22 07:50 Dose: 2 cap Levothyroxine Sodium (Levothyroxine Sodium 50 Mcg Tablet) 50 mcg PO DAILYBB [facility] Stop: 05/03/22 06:29 Last Admin: 04/24/22 05:02 Dose: 50 mcg Linaclotide (Linaclotide 145 Mcg Capsule) 290 mcg PO DAILY [facility] Stop: 05/03/22 08:59 Last Admin: 04/24/22 07:51 Dose: 290 mcg Metaxalone (Metaxalone 800 Mg Tablet) 400 mg PO TID [facility] Stop: 05/06/22 13:59 Last Admin: 04/20/22 08:20 Dose: 400 mg Metoprolol Tartrate (Metoprolol Tartrate 25 Mg Tab) 12.5 mg PO DAILY [facility] Stop: 05/03/22 08:59 Last Admin: 04/24/22 07:50 Dose: 12.5 mg Miscellaneous (Remove & Waste Butrans Patch 1 Ea Ea) 1 each N/A Sa@1459 [facility] Stop: 05/07/22 14:58 Last Admin: 04/21/22 16:00 Dose: 1 each Miscellaneous (Check Buprenorphine Patch) 1 each N/A QS [facility] Stop: 05/07/22 15:59 Last Admin: 04/24/22 07:57 Dose: 1 each Montelukast Sodium (Montelukast Sodium 10 Mg Tablet) 10 mg PO HS [facility] Stop: 05/02/22 21:32 Last Admin: 04/23/22 20:53 Dose: 10 mg Multi-Ingredient Cream (Eucerin Cr 120 Gm Jar) 1 appln EXT BID PRN PRN Reason: dry skin Stop: 05/21/22 14:24 Last Admin: 04/23/22 22:30 Dose: 1 appln Multivitamins/Minerals (Cerovite Adv Formula Tab) 1 tab PO DAILY [facility] Stop: 05/03/22 08:59 Last Admin: 04/24/22 07:51 Dose: 1 tab Pantoprazole Sodium (Pantoprazole 40 Mg Tab) 40 mg PO DAILY [facility] Stop: 05/03/22 08:59 Last Admin: 04/24/22 07:52 Dose: 40 mg Potassium Chloride (Potassium Chloride 20 Meq/15 Ml Udc) 20 meq PO BID [facility] Stop: 05/21/22 08:59 Last Admin: 04/24/22 07:55 Dose: 20 meq Ropinirole HCl (Ropinirole Hcl 1 Mg Tablet) 1 mg PO TID@0800,1200,1600 [facility] Stop: 05/03/22 07:59 Last Admin: 04/24/22 12:25 Dose: 1 mg Ropinirole HCl (Ropinirole Hcl 1 Mg Tablet) 2 mg PO HS [facility] Stop: 05/02/22 21:32 Last Admin: 04/23/22 20:52 Dose: 2 mg Senna/Docusate Sodium (Docusate Sodium/Senna 50/8.6mg Tab) 1 tab PO BID [facility] Stop: 05/13/22 21:44 Last Admin: 04/24/22 07:52 Dose: 1 tab Thiamine HCl (Thiamine Hcl 100 Mg Tab) 100 mg PO BID [facility] Stop: 05/02/22 21:32 Last Admin: 04/24/22 07:55 Dose: 100 mg Warfarin Sodium (Warfarin Sod 3 Mg Tab) 3 mg PO DAILY@1600 [facility] Stop: 05/22/22 15:59 Last Admin: 04/23/22 16:58 Dose: 3 mg
[2022-04-24] MEDS: WARFARIN SOD 3 MG TAB PO SCH (15:51)
[2022-04-24] MEDS: FLUTICASONE PROPIONATE NA SPR 16 GM BTL NAE SCH (15:52)
[2022-04-24] MEDS ORDERED: MAGNESIUM OXIDE 400 MG TAB PO SCH (21:00)
[2022-04-24] MEDS: MONTELUKAST SODIUM 10 MG TABLET PO SCH (22:20)
[2022-04-24] MEDS ORDERED: SODIUM CHLORIDE 0.9% 250 ML IV ONE (23:45)
[2022-04-25] MEDS: CHECK BUPRENORPHINE PATCH SCH ×3 (01:00→13:03)
[2022-04-25] MEDS: ACETAMINOPHEN 325 MG TAB PO PRN (02:33)
[2022-04-25] MEDS ORDERED: rOPINIRole HCL 0.25 MG TABLET PO STA (03:16)
[2022-04-25] MEDS: LEVOTHYROXINE SODIUM 50 MCG TABLET PO SCH (06:47)
[2022-04-25] MEDS: hydrOXYzine HCl 10 MG TAB PO PRN (06:48)
[2022-04-25] MEDS: CARBIDOPA/LEVODOPA 25/100MG TAB PO SCH ×2 (09:00→13:03)
[2022-04-25] MEDS: OMEGA-3 (PURIFIED FISH OIL) 1 GM CAP PO SCH (09:00)
[2022-04-25] MEDS: ATORVASTATIN 20 MG TAB PO SCH (09:01)
[2022-04-25] MEDS: rOPINIRole HCL 1 MG TABLET PO SCH ×2 (09:02→13:03)
[2022-04-25] MEDS: ADVANCED PROBIOTIC 1250 MG CAPSULE PO SCH (09:03)
[2022-04-25] MEDS: METOPROLOL TARTRATE 25 MG TAB PO SCH (09:03)
[2022-04-25] MEDS: CEROVITE ADV FORMULA TAB PO SCH (09:04)
[2022-04-25] MEDS: THIAMINE HCL 100 MG TAB PO SCH (09:04)
[2022-04-25] MEDS: POTASSIUM CHLORIDE 20 MEQ/15 ML UDC PO SCH (09:04)
[2022-04-25] MEDS: LINACLOTIDE 145 MCG CAPSULE PO SCH (09:04)
[2022-04-25] MEDS: PANTOprazole 40 MG TAB PO SCH (09:04)
[2022-04-25] MEDS: IPRATROPIUM BROMIDE NASAL SPRAY 0.06% 15ML NAE SCH ×2 (09:05→13:03)
[2022-04-25] MEDS: DOCUSATE SODIUM/SENNA 50/8.6MG TAB PO SCH (09:06)
[2022-04-25] MEDS: FLUTICASONE/VILANTEROL 100/25MCG 14 PUFFS/INHALER INH SCH (09:06)
[2022-04-25] MEDS: WARFARIN SOD 3 MG TAB PO SCH (13:02)
--- NOTE | 2022-04-25 14:17 | Hospitalist Progress Note ---
Date of Service April 25, 2022 Assessment & Plan (1) COVID-19: Plan: acquired covid-19 infection, not requiring oxygen supplementation. Cont Robitussin AC for cough PRN and flonase nasal spray for symptomatic relief of sinus congestion. Cont isolation precautions. Albuterol PRN coughing (2) Unable to care for self: (3) Ambulatory dysfunction: Plan: Patient was brought to the ER for ambulatory dysfunction and weakness after Adult Protective Services found her sitting in a chair and not able to care for herself. LE edema Swelling and skin changes are chronic to some degree at baseline Doppler showed no lower leg fluid collection to suggest hematoma. b/L edema No signs of infection at this time and just finished course of abx on 04/07/2022 Lasix 40mg daily was held initially in setting of persistent hypokalemia and hypotension. Lasix resumed Ambulatory dysfunction Generalized weakness H/O R rotator cuff tear --plan for surgery as outpatient Shoulder Xray showed no acute bony abnormality is identified. fall precautions Continue PT/OT eval SNF as able JAEL: Resolved Due to dehydration from poor intake -resolved. Cr 1.8>>>1.3>1.04>0.94--->0.71 Avoid nephrotoxic agents as able Monitor renal function Monitor volume status IV fluids discontinued 04/04 Monitor UTI H/O multiple UTIs in the past Urine culture growing Klebsiella pneumonia Rocephin - s/p 5 day course ended 04/07/2022 Chronic elevated troponin Possible related to elevate CK level Troponin 81 on admission Echo 02/08/2022: Mild LVH, EF: 60-65%, mild aortic regurgitation Continue metoprolol and Plavix Denies any chest pain Hypercoagulable state - initially INR supratherapeutic on admission and coumadin was held - INR normalized - Resumed Coumadin 04/05/2022 - daily INR while inpatient - trending up - no signs of bleeding - FOBT negative 04/08/2022 - INR 3.5-->2.6-->1.9--2.2>2.7 INR remains at goal, cont current therapy Chronic diastolic heart failure: On Lasix Monitor Parkinson's: chronic, stable. Continue carbidopa levodopa HTN: chronic, at goal. Continue metoprolol succinate Hypothyroidism: chronic, stable. Continue levothyroxine RLS: Continue home medications Chronic anemia: Hgb stable No obvious source of bleeding, likely related to chronic disease. Asthma: No signs acute exacerbation Continue home inhalers, albuterol PRN coughing fits. History gastric bypass with chronic constipation. Continue home linzess. COVID-19 infection Symptomatic management Saturating well on room air History GERD: Continue PPI H/O Edenilson-Danlos syndrome stable DVT Px: Coumadin Code Status: Full code Disposition SNF Admission and Anticipated Discharge Date Admission Date: April 02, 2022 Subjective Patient is seen and examined at bedside States having some leg discomfort from restless leg syndrome Cough improving Offers no other complaints Plan to be discharged to rehab facility today Review of Systems Review of Systems: All systems reviewed & are unremarkable except as noted in Subjective Physical Exam Physical Exam: Physical Exam: Vitals signs as noted above General Appearance:Moderately built and nourished, no apparent distress, Elderly Head: normocephalic, Atraumatic Eyes: normal inspection, EOMI Neck: supple, Trachea midline Respiratory/Chest: Decreased breath sounds, CTA, No accessory muscle use Cardiovascular: S1, S2, + murmur Abdomen/GI:Soft, Non tender, Bowel sounds present Extremities/Musculoskeletal:normal inspection, + B/L LE edema, R shoulder decreased ROM Neurologic/Psych:AAOX3, grossly no focal neurological deficits Skin: normal color, warm, RLE wounds Results & Data Results & Data ([facility]) Vital Signs (Past 12 Hours) Vital Signs Temp Pulse Resp BP BP Pulse Ox O2 Del Method 04/25/22 11:39 36.3 C L 85 18 109/80 94/58 L 96 04/25/22 08:00 36.3 C L 85 18 109/80 96 Room Air
--- NOTE | 2022-04-25 20:09 | Discharge Summary ---
Date of Service April 25, 2022 Admission HPI Per Admitting Provider 72 y/o F with PMH hypercoagulopathy on chronic Coumadin, superficial vein thrombosis, HTN, HLD, chronic diastolic CHF, paroxysmal SVT, asthma, Edenilson- Danlos syndrome, gastric bypass, gastroparesis, RLS, GERD, depression, gait abnormality was brought to the ER for ambulatory dysfunction and weakness. Pt was recently admitted for UTI/Fall and discharged to [facility] for rehab. She said that she was discharged from [facility] to home on Saturday. She said that she was doing ok on Saturday. She said Saturday the mainframe applications developer's took her to check what she described a half-way with her. She said the place was beautiful but they will not allow her 2 dogs and cat at the facility. She said that she got back home and she was sitting on the chair. She said that she was afraid to get up from the chair because she did not want to fall. She said that her legs feel weak. She said that she stayed sitting on the chair since Saturday. today when office aging when to visit her, she was found sitting in feces. She said that she has been having frequent BM and not able to make it to the bathroom. She said that she ate cheese and drank coke and lemonade when she got stuck on the chair. She said that she did not want to call for help because she knew when they came they would send her to the hospital and took her dogs away. She said that she is upset because her dogs and cat are the only support that she she has. Office of aging called EMS and pt was brought to the hospital. Denies any chest pain, palpitation, dizziness, fever and SOB. Principal Diagnosis Acute kidney injury COVID-19 infection Ambulatory dysfunction Urinary tract infection Parkinson's disease Restless leg syndrome Edenilson-Danlos syndrome Hypotension Discharge Data Allergies Allergy/AdvReac Type Severity Reaction Status Date / Time ammonia Allergy Severe FACE, Verified 02/06/22 18:48 LIPS, TONGUE EDEMA buspirone Allergy Severe NEURO Verified 02/06/22 18:48 COMPLICATIONS duloxetine Allergy Intermediate RASH Verified 02/06/22 18:48 ITCHING lisinopril Allergy Intermediate cough Verified 02/06/22 18:48 adhesive Allergy Mild skin tears Verified 02/06/22 18:48 NSAIDS (Non-Steroidal Allergy Unknown not Verified 02/06/22 18:48 Anti-Inflamma supposed to use-S/P GASTRIC BYPASS vancomycin Allergy Unknown ON [facility] MED Verified 02/06/22 18:48 LIST venlafaxine Allergy Unknown AFFECTS Verified 02/06/22 18:48 LEGS diphenhydramine AdvReac Intermediate RESTLESS Verified 02/06/22 18:48 LEGS gabapentin AdvReac Intermediate MUSCLE Verified 02/06/22 18:48 STIFFNESS Consultations 04/02/22 18:46 ED Decision to Admit Stat 04/22/22 08:20 Consult Behavioral Health Liaison Routine Procedures Performed Laboratory Results WBC 3.80 K/ul (4.8-10.8) L 04/23/22 07:21 RBC 3.06 M/uL (3.93-5.22) L 04/23/22 07:21 Hgb 9.3 g/dl (12.0-16.0) L 04/23/22 07:21 Hct 29.6 % (34.1-44.9) L 04/23/22 07:21 MCV 96.7 fL (80.0-100.0) 04/23/22 07:21 MCH 30.4 pg (25.0-34.0) 04/23/22 07:21 MCHC 31.4 g/dL (32.0-36.0) L 04/23/22 07:21 RDW Std Deviation 58.7 fL (36.4-46.3) H 04/23/22 07:21 RDW Coeff of Neftaly 16.5 % (11.5-14.5) H 04/23/22 07:21 Plt Count 351 K/uL (130-400) 04/23/22 07:21 MPV 9.8 fL (9.4-12.3) 04/23/22 07:21 Immature Gran % (Auto) 0.8 % 04/11/22 05:29 Neut % (Auto) 76.7 % 04/11/22 05:29 Lymph % (Auto) 13.1 % 04/11/22 05:29 [place] % (Auto) 8.4 % 04/11/22 05:29 Eos % (Auto) 0.7 % 04/11/22 05:29 Baso % (Auto) 0.3 % 04/11/22 05:29 Neut # (Auto) 4.68 K/uL (1.4-6.5) 04/11/22 05:29 Lymph # (Auto) 0.80 K/uL (1.2-3.4) L 04/11/22 05:29 [place] # (Auto) 0.51 K/uL (0.24-0.82) 04/11/22 05:29 Eos # (Auto) 0.04 K/uL (0-0.50) 04/11/22 05:29 Baso # (Auto) 0.02 K/uL (0-0.2) 04/11/22 05:29 Immature Gran # (Auto) 0.05 K/uL (0.00-0.02) H 04/11/22 05:29 Ovalocytes 1+ 04/02/22 17:00 Echinocytes 1+ 04/02/22 17:00 PT 27.4 Seconds (9.0-12.0) H 04/23/22 07:21 INR 2.7 (0.9-1.1) H 04/23/22 07:21 APTT 46.8 Seconds (21.0-31.0) H* 04/02/22 17:00 PTT Ratio 1.7 04/02/22 17:00 Sodium 137 mmol/L (136-145) 04/23/22 07:21 Potassium 3.9 mmol/L (3.5-5.1) 04/23/22 07:21 Chloride 108 mmol/L (98-107) H 04/23/22 07:21 Carbon Dioxide 23 mmol/L (21-32) 04/23/22 07:21 Anion Gap 6 (3-11) 04/23/22 07:21 BUN 11 mg/dl (6-23) 04/23/22 07:21 Creatinine 0.63 mg/dl (0.6-1.2) 04/23/22 07:21 Est Cr Clr Drug Dosing 72.0 ml/min 04/23/22 07:21 Est GFR ( Amer) 103.9 ml/min 04/23/22 07:21 Est GFR (Non-Af Amer) 89.6 ml/min 04/23/22 07:21 BUN/Creatinine Ratio 17.5 (10-20) 04/23/22 07:21 Glucose 103 mg/dl (70-99(Fasting)) H 04/23/22 07:21 Calcium 9.1 mg/dl (8.5-10.1) 04/23/22 07:21 Phosphorus 2.9 mg/dl (2.5-4.9) 04/11/22 05:29 Magnesium 1.9 mg/dl (1.7-2.4) 04/21/22 06:49 Iron 36 mcg/dl (35-150) 04/05/22 09:59 Transferrin 150 mg/dl (200-360) L 04/05/22 09:59 Ferritin 382.1 ng/ml (8-388) 04/05/22 09:59 Total Bilirubin 0.3 mg/dl (0.2-1.0) 04/08/22 05:40 AST 13 U/L (13-39) 04/08/22 05:40 ALT 5 U/L (7-52) L 04/08/22 05:40 Alkaline Phosphatase 78 U/L (34-104) 04/08/22 05:40 Total Creatine Kinase 112 U/L (26-192) 04/03/22 07:39 Troponin I High Sens 82.9 pg/ml (0-14) H* D 04/03/22 07:39 C-Reactive Protein 3.81 mg/dl (0-0.5) H 04/23/22 07:21 Total Protein 5.0 gm/dl (6.0-8.3) L 04/08/22 05:40 Albumin 2.8 gm/dl (3.4-5.0) L 04/08/22 05:40 Globulin 2.2 gm/dl (2.5-4.0) L 04/08/22 05:40 Albumin/Globulin Ratio 1.3 (0.9-2) 04/08/22 05:40 Vitamin B12 1341 pg/ml (180-914) H 04/05/22 09:59 Folate 8.60 ng/ml (>5.38) 04/05/22 09:59 Urine Color Yellow 04/03/22 Unknown Urine Appearance Cloudy (Clear) A 04/03/22 Unknown Urine pH 5.0 (4.5-7.5) 04/03/22 Unknown Ur Specific [place] 1.019 (1.000-1.030) 04/03/22 Unknown Urine Protein 1+ (Negative) H 04/03/22 Unknown Urine Glucose (UA) Negative (Negative) 04/03/22 Unknown Urine Ketones Trace (Negative) H 04/03/22 Unknown Urine Blood 3+ (Negative) H 04/03/22 Unknown Urine Nitrite Negative (Negative) 04/03/22 Unknown Urine Bilirubin Negative (Negative) 04/03/22 Unknown Urine Urobilinogen Negative (Negative) 04/03/22 Unknown Ur Leukocyte Esterase 2+ (Negative) H 04/03/22 Unknown Urine WBC (Auto) >30 /hpf (0-5) H 04/03/22 Unknown Urine RBC (Auto) 10-30 /hpf (0-4) H 04/03/22 Unknown U Hyaline Cast (Auto) 5-10 /lpf (0-5) H 04/03/22 Unknown U Epithel Cells (Auto) >30 /lpf (0-5) H 04/03/22 Unknown Urine Bacteria (Auto) 4+ (Negative) H 04/03/22 Unknown Urine Yeast Not Reportable 04/03/22 Unknown Stool Occult Bld Scrn Negative (Negative) 04/07/22 07:50 SARS-CoV-2 (PCR) POSITIVE (Negative) A* 04/19/22 Unknown SARS-CoV-2, RNA, NAAT POSITIVE (NEGATIVE) A* 04/19/22 14:00 Impressions Shoulder X-Ray 04/02/22 16:03 RIGHT SHOULDER 3 VIEWS CLINICAL HISTORY: Right shoulder pain. FINDINGS: 3 views of the right shoulder are compared to study dated 03/17/2022. The skeletal structures are osteopenic. There is no radiographic evidence of acute fracture or dislocation. Degenerative change is seen at the glenohumeral and acromioclavicular joints. Sclerotic change is noted in the greater tuberosity of the humeral head. The overlying soft tissues are normal as imaged. The right lung parenchyma is clear as visualized. IMPRESSION: No acute bony abnormality is identified. Electronically signed by: Julian Sibley M.D. 04/02/2022 4:23 PM Vascular Ultrasound 04/05/22 11:40 BILATERAL LOWER LEG ULTRASOUND TO ASSESS FOR HEMATOMA CLINICAL HISTORY: B/L leg swelling, anemia, Rule out hematoma COMPARISON STUDY: Bilateral lower extremity venous Doppler ultrasound January 10, 2022. TECHNIQUE: Sonography of the bilateral lower legs was performed to assess for hematoma. FINDINGS: No fluid collection was identified within the lower legs to suggest hematoma by sonography. Bilateral calf edema, a nonspecific finding, was noted. IMPRESSION: 1. No lower leg fluid collection to suggest hematoma. 2. Bilateral calf edema. ACT 112: Negative or not required by law. Electronically signed by: Norris Blackburn M.D. 04/05/2022 2:32 PM Chest X-Ray 04/18/22 10:14 XR chest 1V portable CLINICAL HISTORY: Cough. COMPARISON STUDY: Chest CT February 06, 2022. Chest radiograph April 02, 2022. FINDINGS: Lung volumes are normal. Lungs are clear. There is no pneumothorax or pleural effusion. Cardiomegaly is unchanged. Mediastinal contours are normal. There is no evidence for pulmonary edema. IMPRESSION: No acute cardiopulmonary findings. No change in appearance of the chest. ACT 112: Negative or not required by law. Electronically signed by: Norris Blackburn M.D. 04/18/2022 1:42 PM Ordered Studies 04/05/22 US extremity non-vascular ltd Routine 04/05/22 11:40 US extremity non-vascular ltd Routine Hospital Course (1) COVID-19: COVID-19 infection Symptomatic management Saturating well on room air (2) Unable to care for self: (3) Ambulatory dysfunction: Patient was brought to the ER for ambulatory dysfunction and weakness after Adult Protective Services found her sitting in a chair and not able to care for herself. LE edema Swelling and skin changes are chronic to some degree at baseline Doppler showed no lower leg fluid collection to suggest hematoma. b/L edema No signs of infection at this time and just finished course of abx on 04/07/2022 Lasix 40mg daily was held initially in setting of persistent hypokalemia and hypotension. Lasix resumed Ambulatory dysfunction Generalized weakness H/O R rotator cuff tear --plan for surgery as outpatient Shoulder Xray showed no acute bony abnormality is identified. fall precautions Continue PT/OT eval SNF as able JAEL: Resolved Due to dehydration from poor intake -resolved. Cr 1.8>>>1.3>1.04>0.94--->0.71 Avoid nephrotoxic agents as able Monitor renal function Monitor volume status IV fluids discontinued 04/04 Monitor UTI H/O multiple UTIs in the past Urine culture growing Klebsiella pneumonia Rocephin - s/p 5 day course ended 04/07/2022 Chronic elevated troponin Possible related to elevate CK level Troponin 81 on admission Echo 02/08/2022: Mild LVH, EF: 60-65%, mild aortic regurgitation Continue metoprolol and Plavix Denies any chest pain Hypercoagulable state - initially INR supratherapeutic on admission and coumadin was held - INR normalized - Resumed Coumadin 04/05/2022 - daily INR while inpatient - trending up - no signs of bleeding - FOBT negative 04/08/2022 - INR 3.5-->2.6-->1.9--2.2>2.7 INR remains at goal, cont current therapy Chronic diastolic heart failure: On Lasix Monitor Parkinson's: chronic, stable. Continue carbidopa levodopa HTN: chronic, at goal. Continue metoprolol succinate Hypothyroidism: chronic, stable. Continue levothyroxine RLS: Continue home medications Chronic anemia: Hgb stable No obvious source of bleeding, likely related to chronic disease. Asthma: No signs acute exacerbation Continue home inhalers, albuterol PRN coughing fits. History gastric bypass with chronic constipation. Continue home linzess. History GERD: Continue PPI H/O Edenilson-Danlos syndrome stable DVT Px: Coumadin Code Status: Full code Disposition SNF Total Time Total Time Spent Total Time Spent (In Minutes): 49 minutes Discharge Plan Discharge Items Patient Disposition: Transfer [facility] Reason For Visit: WEAKNESS Discharge Diagnosis: Acute kidney injury COVID-19 infection Ambulatory dysfunction Urinary tract infection Parkinson's disease Restless leg syndrome Edenilson-Danlos syndrome Hypotension Activity: As commented below Activity Comment: per rehab facility Exercise/Sports: Gradually increase as tolerated Non-emergency contact: Primary Care Provider, Rubber Compounder Mixer and Neurologist Call non-emergency contact if: you have any medication questions and your symptoms worsen Follow-up/Referrals: Lavern Gomez DO [Primary Care Provider] - (Date & Time 05/02/2022 10:20 AM Provider Eugenio Chanel MD [facility] ) Diet: Heart Healthy Addtl Attending Provider Instructions: You were admitted for weakness, found be dehydrated and decrease in your kidney function. You were given fluids in the IV and treated for a urinary tract infection, which will continue when you leave. You were seen by Physical therapy and they recommend a rehab after discharge. Follow up with your Primary care doctor and other doctors, like Rubber Compounder Mixer and neurologist as recommended. Addtl Construction Assistant Provider Instructions: Monitor your INR at rehab facility and adjust your Coumadin dose to keep target PT/INR between 2.0-3.0. Pending Studies at Discharge: No Stand-Alone Forms: My [facility] Skilled Items Patient informed of condition?: Yes DNR: No Discharge Level of Care: Skilled Communicable Disease: No Discharge Prognosis: Stable Lines: None Urinary Catheter: No Medications and DC Order Prescriptions: New warfarin [Jantoven] 2.5 mg Tablet 2.5 mg PO DAILY@1600 Qty: 30 0RF magnesium oxide 400 mg (241.3 mg magnesium) Tablet 400 mg PO HS Qty: 30 0RF sennosides-docusate sodium [Senokot-S] 8.6-50 mg Tablet 1 tab PO BID PRN (Reason: constipation) Qty: 30 0RF Continued furosemide 40 mg tablet 40 - 80 mg PO DAILY atorvastatin 20 mg tablet 20 mg PO QAM ipratropium-albuterol 0.5 mg-3 mg(2.5 mg base)/3 mL solution for nebulization 3 ml INHALATION QID ondansetron HCl 4 mg Tablet 4 mg PO Q12 PRN (Reason: Nausea) sennosides-docusate sodium [Senna-S] 8.6-50 mg Tablet 1 tab-cap PO BID cromolyn 4 % drops 1 drp OPL QID PRN (Reason: Itching) thiamine HCl (vitamin B1) 100 mg Tablet 100 mg PO BID docusate sodium 50 mg Capsule 50 mg PO BID PRN (Reason: Constipation) triamcinolone acetonide 0.1 % cream 1 applic TOPICAL BID PRN (Reason: FLARE UP) potassium chloride [Klor-Con] 20 mEq packet 20 meq PO [facility] Rx Instructions: WHILE ON LASIX clindamycin phosphate 1 % gel 1 applic TOPICAL BID PRN (Reason: FLARE UPS) meclizine 25 mg Tablet 25 mg PO TID PRN (Reason: DIZZY) levothyroxine 50 mcg tablet 50 mcg PO DAILY ropinirole 2 mg tablet See Rx Instructions .ROUTE .COMPLEX Rx Instructions: 1 TAB IN AM, 1 TAB LUNCH, 1 TAB MID EVENING , 2 TABS @ HS WITH FOOD. omeprazole 20 mg capsule,delayed release(DR/EC) 40 mg PO DAILY montelukast 10 mg tablet 10 mg PO HS hydroxyzine HCl 25 mg Tablet 25 mg PO Q6 PRN (Reason: .ANX/ITCH) ergocalciferol (vitamin D2) [Vitamin D2] 1,250 mcg (50,000 unit) Capsule 1,250 mcg PO WK fluticasone propion-salmeterol [Advair Diskus] 100-50 mcg/dose Blister With Device 1 inh INHALATION BID albuterol sulfate 90 mcg/actuation Hfa Aerosol Inhaler 2 inh INHALATION Q6 PRN (Reason: Shortness Of Breath Or Wheezing) carbidopa-levodopa 25-100 mg Tablet 1 tab PO QID fluticasone propionate [Flonase Allergy Relief] 50 mcg/actuation [place],Suspension 2 spray INTRANASAL DAILY ipratropium bromide 21 mcg (0.03 %) [place],Non-Aerosol 1 spray INTRANASAL QID cyanocobalamin (vitamin B-12) 1,000 mcg/mL Syringe 1,000 mcg MO Rx Instructions: INJECTION omega-3 fatty acids Capsule 1,000 mg PO DAILY metoprolol tartrate 25 mg tablet 12.5 mg PO DAILY biotin 1 mg Tablet 1 mg PO DAILY Linzess 290 mcg capsule 290 mcg PO DAILY buprenorphine 15 mcg/hour patch weekly 1 patch topical WK PreserVision AREDS-2 250-90-40-1 mg Capsule 1 tab PO BID Probiotic Acidophilus Biobeads 12.9 mg (2 billion cell) Tablet,Delayed Release (Dr/Ec) 2 tab PO DAILY lidocaine HCl 2.8 % Gel 1 applic TOPICAL BID PRN (Reason: APPLY TO AFFECTED AREAA) Changed metaxalone 800 mg tablet 400 mg PO TID PRN (Reason: Spasms) Qty: 10 0RF Rx Instructions: TAKE 1 TAB IN AM,NOON,PM, HS Discontinued warfarin [Jantoven] 4 mg Tablet 4 mg PO DAILY@1600 Qty: 30 0RF Discharge Orders: Discharge Order (Routine); Ordered 04/25/22 Ordered By: Yosi Santana Admission Data Admit Date/Time: 04/02/22 19:06 Attending Provider: Yosi Santana Admit Provider: Ronny Willett Primary Care Provider: Lavern Gomez Other Providers: Virgie Ayala Fleischmanns ; [place] ; [facility], ; Lavern Gomez ; Jenaro Chen ; Ronny Willett Other Interventions: Discharge Summary Assessment (RN) Last Done: 04/25/22 11:39
== END 2022-04-25 14:52 | disposition home or self-care (01) | DRG 682 ==
LOC: ED 15:46 → SUPCPDRO 19:06 → 2N 19:06 → SUATTDRO 19:06 → 2N 20:21 → 1E 04-23 06:46 → 2N 04-23 06:52 → 3N 04-24 04:46

== ENCOUNTER 2022-07-22 11:57 | Inpatient (IN) ==
[2022-07-22] MEDS ORDERED: MoRPHine SULFATE 2 MG/ML CARP IV STA (12:20)
--- NOTE | 2022-07-22 12:32 | Emergency Department Note ---
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 EMS report was that the patient evidently rolled during the night and hurt her right shoulder but no report of fall from bed. She is been having increased pain to the right shoulder as well as pain in her legs. Patient states she is having some increased pain of her right shoulder but this has been a bit more chronic. Does have her buprenorphine patch on. Denies any falls or significant trauma. Reports her legs are hurting and are more swollen than normal. Denies difficulty breathing or chest pain currently. Was recently seen here in the emergency department states she completed the antibiotics it helped a bit with the redness but did not do anything for her leg pain. No fevers or URI symptoms reported. She is very sad and depressed regarding her ongoing pain that is not well treated with her pain medications and Percocet. She states that her right shoulder surgery to fix her chronic dislocation was delayed due to her multiple medical issues needing clearance before surgery. PAST MEDICAL HISTORY: As noted above MEDICATIONS: Reviewed medication list from the facility SOCIAL HISTORY: Currently residing in personal care facility PHYSICAL EXAM: GENERAL: alert and oriented on the stretcher appears fatigued and at times tearful during the interview Head: normocephalic and atraumatic EYES: No injection, discharge or icterus. NECK: Trachea midline. Supple. ENT: Mucous membranes pink and moist. LUNGS: Airway patent. No retractions. Breath sounds clear with some diminished bases HEART: Regular rate and rhythm. No chest wall tenderness ABDOMEN: Soft and non-tender, without guarding or rebound. SKIN: Acyanotic, warm, dry some edema of the legs as below. EXTREMITIES: 3+ edema of the lower extremities with some erythema diffusely here. No active wounds or discharge noted. Mildly diffusely tender. Prominen ce and tenderness of the anterior right shoulder with history of chronic dislocation here. NEUROLOGICAL: No focal deficits. No aphasia. No facial droop or slurred speech. EK bpm normal sinus rhythm. No PVC or PAC. No acute ST segment elevation or depression with a QTC of 431. CONTINUOUS CARDIAC MONITORING: was ordered and showed a heart rate of 60s-70s bpm in normal sinus rhythm PDMP was checked without noted with chronic use of Butrans and Percocet. Patient's laboratory studies and imaging reviewed. Differential includes DVT, musculoskeletal, infection, joint effusion, trauma, lymphedema, idiopathic, CHF, as well as other pathologies. IMPRESSION/MEDICAL DECISION MAKING: Reviewed patient's recent ER visit here as well as prior admission this fall. History of recurrent issues with the legs reported. Recently completed course of Keflex may be improved with the redness but has not helped with pain or swelling. Has chronic pain issues and unfortunately a chronic dislocation of the right shoulder. Following with [facility] orthopedics for this with plan for surgery when cleared for surgery. Evidently by EMS report had rolled over and exacerbated this shoulder overnight. Complaining a lot of pain predominantly in lower legs but some exacerbation of the shoulder to me. Denies shortness of breath or fever symptoms. Denies other URI symptoms. Given small amount of morphine. Seems like primary complaint is related to her pain issue. Question how much of this could be CHF given her history. Low suspicion for VTE given her anticoagulation usage. EKG and troponin completed but doubt ACS. Blood work today without leukocytosis and stable mild anemia. Negative COVID. Mild hypokalemia. No significant renal dysfunction. No transaminitis. No troponin elevation. Albumin slightly low may contribute a little bit of the swelling. Chest x-ray without significant pulmonary edema or effusion noted by radiology and reviewed. Shoulder x-ray unchanged with subluxation and Hill- Sachs lesion. BNP mildly elevated. Unsure of exact baseline at this time and again could represent some fluid overload. Procalcitonin sent as well and undetectably low. Low suspicion significant infection and doubt sepsis. INRs is slightly subtherapeutic. Patient still in significant pain and did receive IV morphine here several doses. Lidocaine patch added as well. Given her poor pain control bring her to tears at time with the possibility this could represent some fluid overload as well we will give a small dose of additional Lasix and asked the hospitalist to evaluate for observation. Did give a small amount of additional potassium as this mildly low and again giving some additional Lasix. DIAGNOSIS: Chronic right shoulder pain, bilateral lower extremity swelling and pain, kalemia, fibromyalgia, chronic diastolic CHF, hypokalemia DISPOSITION: Hospitalist will evaluate Patient was agreeable with this plan. Past Med/Surg History Medical History Abdominal hernia ADHD Anemia Asthma uses PRN INH 3-4 x wk Bulging of intervertebral disc Claustrophobia Coagulopathy Difficult intravenous access Dysphagia Edenilson-Danlos syndrome ISAC (generalized anxiety disorder) Gastroparesis GERD (gastroesophageal reflux disease) Hearing deficit History of colon polyps History of colon polyps History of DVT (deep vein thrombosis) chronic anticoagulation History of intestinal obstruction Hyperlipidemia Hypokalemia Hypothyroidism Osteoarthritis Osteoporosis Peripheral neuropathy Protein C deficiency Pulmonary embolism 07/2018 - treated w/ lovenox - unk etiology Recurrent falls Renal cyst Restless leg syndrome Sleep apnea unable to tolerate CPAP Tachycardia Thoracic aortic aneurysm follows w/ Dr. Arredondo - evaluated within last 6 mo Thyroid nodule Weakness Surgical History History of abdominoplasty + hernia repair History of arthroscopy of left knee History of bilateral breast reduction surgery History of cholecystectomy History of colonoscopy History of esophagogastroduodenoscopy (EGD) History of gastric bypass History of intestinal surgery History of laparotomy History of left knee replacement History of right knee joint replacement History of tonsillectomy Hx of melanoma excision shoulder S/P hysterectomy Self extubation attempted post gastric bypass Status post biopsy of thyroid gland benign Family History Uncle Stomach cancer Other No family history of adverse response to anesthesia No pertinent family history in first degree relatives Social History Smoking Status: Never smoker Second Hand Exposure: No; Hx Alcohol Use: No Hx Substance Use: No Preferred Language: Danish Communication Ability: Effective Visual Impairment: Limited Hearing Ability: Normal 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 Beliefs That Will Affect Care: None marital status: Single Current Living Situation: Alone Current Living Situation Comment: has friends to help when needed How many Children do You have: 0 Feels Safe at Home: Yes Assistive Devices: None Allergies Allergies Allergy/AdvReac Type Severity Reaction Status Date / Time ammonia Allergy Severe FACE, Verified 04/28/22 23:43 LIPS, TONGUE EDEMA buspirone Allergy Severe NEURO Verified 04/28/22 23:43 COMPLICATIONS duloxetine Allergy Intermediate RASH Verified 04/28/22 23:43 ITCHING lisinopril Allergy Intermediate cough Verified 04/28/22 23:43 adhesive Allergy Mild skin tears Verified 04/28/22 23:43 NSAIDS (Non-Steroidal Allergy Unknown not Verified 04/28/22 23:43 Anti-Inflamma supposed to use-S/P GASTRIC BYPASS vancomycin Allergy Unknown ON GMG MED Verified 04/28/22 23:43 LIST venlafaxine Allergy Unknown AFFECTS Verified 04/28/22 23:43 LEGS diphenhydramine AdvReac Intermediate RESTLESS Verified 04/28/22 23:43 LEGS gabapentin AdvReac Intermediate MUSCLE Verified 04/28/22 23:43 STIFFNESS Home Meds Home Medications Medication Instructions Recorded Confirmed L.acidoph-L.rhamn-B.bifidum-B.long 2 tab PO DAILY 01/09/22 04/28/22 12.9 mg (2 billion cell) tablet, DR (Probiotic Acidophilus [place]) albuterol sulfate 90 mcg/actuation 2 inh inhalation Q6 PRN Shortness 01/09/22 04/28/22 aerosol inhaler Of Breath Or Wheezing atorvastatin 20 mg tablet 20 mg PO QAM 01/09/22 04/28/22 biotin 1 mg tablet 1 mg PO DAILY 01/09/22 04/28/22 buprenorphine 15 mcg/hour weekly 1 patch topical WK 01/09/22 04/28/22 transdermal patch carbidopa 25 mg-levodopa 100 mg 1 tab PO QID 01/09/22 04/28/22 tablet cromolyn 4 % eye drops 1 drp OPL QID PRN Itching 01/09/22 04/28/22 cyanocobalamin (vitamin B-12) 1,000 mcg MO 01/09/22 04/28/22 1,000 mcg/mL injection syringe docusate sodium 50 mg capsule 50 mg PO BID 01/09/22 04/28/22 ergocalciferol (vitamin D2) 1,250 1,250 mcg PO WK 01/09/22 04/28/22 mcg (50,000 unit) capsule (Vitamin D2) fluticasone 100 mcg-salmeterol 50 1 inh inhalation BID 01/09/22 04/28/22 mcg/dose blistr powdr for inhalation (Advair Diskus) fluticasone propionate 50 2 spray intranasal DAILY 01/09/22 04/28/22 mcg/actuation nasal spray,suspension (Flonase Allergy Relief) hydroxyzine HCl 25 mg tablet 25 mg PO Q6 PRN .ANX/ITCH 01/09/22 04/28/22 ipratropium 0.5 mg-albuterol 3 mg 3 ml inhalation QID PRN Shortness 01/09/22 04/28/22 (2.5 mg base)/3 mL nebulization Of Breath soln ipratropium bromide 21 mcg (0.03 1 spray intranasal QID 01/09/22 04/28/22 %) nasal spray levothyroxine 50 mcg tablet 50 mcg PO DAILY 01/09/22 04/28/22 lidocaine HCl 2.8 % topical gel 1 applic topical BID PRN APPLY TO 01/09/22 04/28/22 AFFECTED AREAA linaclotide 290 mcg capsule 290 mcg PO DAILY 01/09/22 04/28/22 (Linzess) meclizine 25 mg tablet 25 mg PO TID PRN DIZZY 01/09/22 04/28/22 metoprolol tartrate 25 mg tablet 12.5 mg PO DAILY 01/09/22 04/28/22 montelukast 10 mg tablet 10 mg PO HS 01/09/22 04/28/22 omega-3 fatty acids 1,000 mg PO DAILY 01/09/22 04/28/22 omeprazole 20 mg capsule,delayed 40 mg PO DAILY 01/09/22 04/28/22 release ondansetron HCl 4 mg tablet 4 mg PO Q12 PRN Nausea 01/09/22 04/28/22 potassium chloride 20 mEq oral 20 meq PO AMHS 01/09/22 04/28/22 packet (Klor-Con) sennosides 8.6 mg-docusate sodium 1 tab-cap PO BID 01/09/22 04/28/22 50 mg tablet (Senna-S) thiamine HCl (vitamin B1) 100 mg 100 mg PO BID 01/09/22 04/28/22 tablet triamcinolone acetonide 0.1 % 1 applic topical BID PRN FLARE UP 01/09/22 04/28/22 topical cream vit C 250 mg-vit E 90 mg-zinc 40 1 tab PO BID 01/09/22 04/28/22 mg-copper 1 az-wukmlx-cuknqn capsule (PreserVision AREDS-2) ropinirole 1 mg tablet 1 mg PO TID 04/28/22 04/28/22 ropinirole 2 mg tablet 2 mg PO HS 04/28/22 04/28/22 Previous Rx's Medication Instructions Recorded metaxalone 800 mg tablet 400 mg PO TID PRN Spasms #10 tabs 04/25/22 enoxaparin 80 mg/0.8 mL 70 mg (0.7 mL) subcut Q12H #8 mL 05/09/22 subcutaneous syringe (Lovenox) furosemide 20 mg tablet 20 mg PO DAILY #30 tabs 05/09/22 oxycodone-acetaminophen 5 mg-325 1 tab PO Q8H PRN severe 05/09/22 mg tablet (Percocet) breakthrough pain #10 tabs warfarin 4 mg tablet (Jantoven) 4 mg PO DAILY@1600 #30 tabs 05/09/22 Results & Data (ED) Vital Signs Vital Signs - 24 hr 07/22/22 11:55 07/22/22 13:00 07/22/22 15:00 Temperature 37.0 C Temperature Source Oral Pulse Rate 68 Pulse Rate [Finger] 64 Pulse Rate from SpO2 Sensor Respiratory Rate 20 18 Respiratory Effort / Characteristics Non-Labored Respiratory Depth Normal Blood Pressure 111/64 Blood Pressure [Left Arm] 117/69 115/69 Blood Pressure Mean 79 Blood Pressure Mean [Left Arm] 85 84 Pulse Oximetry 99 98 Oxygen Delivery Method Room Air Room Air Sepsis Recent Fever Within 48 Hours No Sepsis New/Unexplained Change in Mental Status N/A Sepsis Action Taken by Nursing No Action Required 07/22/22 15:05 07/22/22 15:10 07/22/22 15:20 Temperature Temperature Source Pulse Rate 67 85 68 Pulse Rate [Finger] Pulse Rate from SpO2 Sensor 67 68 68 Respiratory Rate 14 18 14 Respiratory Effort / Characteristics Respiratory Depth Blood Pressure Blood Pressure [Left Arm] Blood Pressure Mean Blood Pressure Mean [Left Arm] Pulse Oximetry 98 99 98 Oxygen Delivery Method Sepsis Recent Fever Within 48 Hours Sepsis New/Unexplained Change in Mental Status Sepsis Action Taken by Nursing 07/22/22 15:30 07/22/22 15:32 07/22/22 15:32 Temperature Temperature Source Pulse Rate 71 73 Pulse Rate [Finger] Pulse Rate from SpO2 Sensor Respiratory Rate 13 Respiratory Effort / Characteristics Respiratory Depth Blood Pressure 136/81 Blood Pressure [Left Arm] Blood Pressure Mean 99 Blood Pressure Mean [Left Arm] Pulse Oximetry Oxygen Delivery Method Sepsis Recent Fever Within 48 Hours Sepsis New/Unexplained Change in Mental Status Sepsis Action Taken by Nursing 07/22/22 15:40 07/22/22 15:51 07/22/22 16:00 Temperature Temperature Source Pulse Rate 74 71 Pulse Rate [Finger] Pulse Rate from SpO2 Sensor Respiratory Rate 17 22 Respiratory Effort / Characteristics Respiratory Depth Blood Pressure 120/68 Blood Pressure [Left Arm] Blood Pressure Mean 85 Blood Pressure Mean [Left Arm] Pulse Oximetry Oxygen Delivery Method Sepsis Recent Fever Within 48 Hours Sepsis New/Unexplained Change in Mental Status Sepsis Action Taken by Nursing 07/22/22 16:00 07/22/22 16:10 07/22/22 16:20 Temperature Temperature Source Pulse Rate 72 69 64 Pulse Rate [Finger] Pulse Rate from SpO2 Sensor 71 69 64 Respiratory Rate 18 22 12 Respiratory Effort / Characteristics Respiratory Depth Blood Pressure Blood Pressure [Left Arm] Blood Pressure Mean Blood Pressure Mean [Left Arm] Pulse Oximetry 100 98 97 Oxygen Delivery Method Sepsis Recent Fever Within 48 Hours Sepsis New/Unexplained Change in Mental Status Sepsis Action Taken by Nursing 07/22/22 16:30 07/22/22 16:31 07/22/22 16:31 Temperature Temperature Source Pulse Rate 73 84 Pulse Rate [Finger] Pulse Rate from SpO2 Sensor 67 72 Respiratory Rate 16 19 Respiratory Effort / Characteristics Respiratory Depth Blood Pressure 112/81 Blood Pressure [Left Arm] Blood Pressure Mean 91 Blood Pressure Mean [Left Arm] Pulse Oximetry 99 98 Oxygen Delivery Method Sepsis Recent Fever Within 48 Hours Sepsis New/Unexplained Change in Mental Status Sepsis Action Taken by Nursing 07/22/22 16:40 07/22/22 16:50 07/22/22 17:00 Temperature Temperature Source Pulse Rate 107 H 64 66 Pulse Rate [Finger] Pulse Rate from SpO2 Sensor 71 64 Respiratory Rate 18 12 12 Respiratory Effort / Characteristics Respiratory Depth Blood Pressure Blood Pressure [Left Arm] Blood Pressure Mean Blood Pressure Mean [Left Arm] Pulse Oximetry 100 98 Oxygen Delivery Method Sepsis Recent Fever Within 48 Hours Sepsis New/Unexplained Change in Mental Status Sepsis Action Taken by Nursing 07/22/22 17:10 07/22/22 17:20 07/22/22 17:30 Temperature Temperature Source Pulse Rate 61 64 58 L Pulse Rate [Finger] Pulse Rate from SpO2 Sensor Respiratory Rate 15 20 16 Respiratory Effort / Characteristics Respiratory Depth Blood Pressure Blood Pressure [Left Arm] Blood Pressure Mean Blood Pressure Mean [Left Arm] Pulse Oximetry Oxygen Delivery Method Sepsis Recent Fever Within 48 Hours Sepsis New/Unexplained Change in Mental Status Sepsis Action Taken by Nursing 07/22/22 17:40 Temperature Temperature Source Pulse Rate 62 Pulse Rate [Finger] Pulse Rate from SpO2 Sensor Respiratory Rate 21 Respiratory Effort / Characteristics Respiratory Depth Blood Pressure Blood Pressure [Left Arm] Blood Pressure Mean Blood Pressure Mean [Left Arm] Pulse Oximetry Oxygen Delivery Method Sepsis Recent Fever Within 48 Hours Sepsis New/Unexplained Change in Mental Status Sepsis Action Taken by Nursing Laboratory Data 07/22/22 12:45 07/22/22 12:45 Lab Results 07/22/22 07/22/22 07/22/22 Range/Units 12:45 12:45 12:55 WBC 5.08 (4.8-10.8) K/ul RBC 3.28 L (3.93-5.22) M/uL Hgb 9.3 L (12.0-16.0) g/dl Hct 29.6 L (34.1-44.9) % MCV 90.2 (80.0-100.0) fL MCH 28.4 (25.0-34.0) pg MCHC 31.4 L (32.0-36.0) g/dL RDW Std Deviation 53.5 H (36.4-46.3) fL RDW Coeff of [place] 16.3 H (11.5-14.5) % Plt Count 242 (130-400) K/uL MPV 11.1 (9.4-12.3) fL Immature Gran % (Auto) 0.2 % Neut % (Auto) 60.6 % Lymph % (Auto) 21.1 % [place] % (Auto) 14.0 % Eos % (Auto) 3.1 % Baso % (Auto) 1.0 % Neut # (Auto) 3.08 (1.4-6.5) K/uL Lymph # (Auto) 1.07 L (1.2-3.4) K/uL [place] # (Auto) 0.71 (0.24-0.82) K/uL Eos # (Auto) 0.16 (0-0.50) K/uL Baso # (Auto) 0.05 (0-0.2) K/uL Immature Gran # (Auto) 0.01 (0.00-0.02) K/uL PT (9.0-12.0) Seconds INR (0.9-1.1) APTT (21.0-31.0) Seconds PTT Ratio Sodium 140 (136-145) mmol/L Potassium 3.2 L (3.5-5.1) mmol/L Chloride 107 (98-107) mmol/L Carbon Dioxide 27 (21-32) mmol/L Anion Gap 6 (3-11) BUN 15 (6-23) mg/dl Creatinine 0.71 (0.6-1.2) mg/dl Est Cr Clr Drug Dosing 65.7 ml/min Est GFR ( Amer) 98.6 ml/min Est GFR (Non-Af Amer) 85.1 ml/min BUN/Creatinine Ratio 21.1 H (10-20) Glucose 83 (70-99(Fasting)) mg/dl Calcium 9.4 (8.5-10.1) mg/dl Total Bilirubin 0.4 (0.2-1.0) mg/dl AST 9 L (13-39) U/L ALT < 3 L (7-52) U/L Alkaline Phosphatase 136 H (34-104) U/L Troponin I High Sens 12.0 (0-14) pg/ml B-Natriuretic Peptide (0-100) pg/ml Total Protein 5.7 L (6.0-8.3) gm/dl Albumin 3.2 L (3.4-5.0) gm/dl Globulin 2.5 (2.5-4.0) gm/dl Albumin/Globulin Ratio 1.3 (0.9-2) Procalcitonin (0-0.5) ng/ml SARS-CoV-2, RNA, NAAT NEGATIVE (NEGATIVE) 07/22/22 07/22/22 07/22/22 Range/Units 13:23 13:23 13:23 WBC (4.8-10.8) K/ul RBC (3.93-5.22) M/uL Hgb (12.0-16.0) g/dl Hct (34.1-44.9) % MCV (80.0-100.0) fL MCH (25.0-34.0) pg MCHC (32.0-36.0) g/dL RDW Std Deviation (36.4-46.3) fL RDW Coeff of [place] (11.5-14.5) % Plt Count (130-400) K/uL MPV (9.4-12.3) fL Immature Gran % (Auto) % Neut % (Auto) % Lymph % (Auto) % [place] % (Auto) % Eos % (Auto) % Baso % (Auto) % Neut # (Auto) (1.4-6.5) K/uL Lymph # (Auto) (1.2-3.4) K/uL [place] # (Auto) (0.24-0.82) K/uL Eos # (Auto) (0-0.50) K/uL Baso # (Auto) (0-0.2) K/uL Immature Gran # (Auto) (0.00-0.02) K/uL PT 15.5 H (9.0-12.0) Seconds INR 1.5 H (0.9-1.1) APTT 33.6 H (21.0-31.0) Seconds PTT Ratio 1.2 Sodium (136-145) mmol/L Potassium (3.5-5.1) mmol/L Chloride (98-107) mmol/L Carbon Dioxide (21-32) mmol/L Anion Gap (3-11) BUN (6-23) mg/dl Creatinine (0.6-1.2) mg/dl Est Cr Clr Drug Dosing ml/min Est GFR ( Amer) ml/min Est GFR (Non-Af Amer) ml/min BUN/Creatinine Ratio (10-20) Glucose (70-99(Fasting)) mg/dl Calcium (8.5-10.1) mg/dl Total Bilirubin (0.2-1.0) mg/dl AST (13-39) U/L ALT (7-52) U/L Alkaline Phosphatase (34-104) U/L Troponin I High Sens (0-14) pg/ml B-Natriuretic Peptide 220 H (0-100) pg/ml Total Protein (6.0-8.3) gm/dl Albumin (3.4-5.0) gm/dl Globulin (2.5-4.0) gm/dl Albumin/Globulin Ratio (0.9-2) Procalcitonin < 0.05 (0-0.5) ng/ml SARS-CoV-2, RNA, NAAT (NEGATIVE) Administered Medications Lidocaine (Lidocaine 5% 1 Patch) 1 patch TD QAM ASHUTOSH Stop: 08/21/22 14:59 Last Admin: 07/22/22 14:58 Dose: 1 patch Documented By: MIRYAM Discontinued Medications Acetaminophen (Acetaminophen 500 Mg Tab) 1,000 mg PO NOW STA Stop: 07/22/22 16:48 Last Admin: 07/22/22 16:54 Dose: 1,000 mg Documented By: MIRYAM Furosemide (Furosemide 40 Mg/4 Ml Vial) 40 mg IV ONE ONE Stop: 07/22/22 14:41 Last Admin: 07/22/22 14:58 Dose: 40 mg Documented By: MIRYAM Potassium Chloride (K Dm / Wtr) 10 meq in 100 mls @ 100 mls/hr IV ONE ONE; Protocol Stop: 07/22/22 15:46 Last Infusion: 07/22/22 16:15 Dose: 0 mls/hr Documented By: Admin: 07/22/22 14:58 Dose: 100 mls/hr Documented By: MIRYAM Morphine Sulfate (Morphine Sulfate 2 Mg/Ml Carp) 2 mg IV NOW STA Stop: 07/22/22 12:21 Last Admin: 07/22/22 12:49 Dose: 2 mg Documented By: DENISE Morphine Sulfate (Morphine Sulfate 4 Mg/Ml 1 Ml Carp\Vial) 4 mg IV NOW STA Stop: 07/22/22 14:41 Last Admin: 07/22/22 14:58 Dose: 4 mg Documented By: MIRYAM Potassium Chloride (Potassium Chloride Crtab 20 Meq Tabcr) 60 meq PO NOW STA Stop: 07/22/22 15:57 Last Admin: 07/22/22 16:51 Dose: 60 meq Documented By: MIRYAM Imaging Data Radiologist's Impression: Shoulder X-Ray 07/22/22 12:14 RIGHT SHOULDER 3 VIEWS CLINICAL HISTORY: Right shoulder pain. History of dislocations. FINDINGS: 3 views of the right shoulder are compared to study dated 07/13/2022 and correlated with right shoulder CT dated 05/01/2022. The skeletal structures are osteopenic. There is no radiographic evidence of acute fracture. A Hill-Sachs lesion is again seen in the humeral head. There is anterior subluxation of the humeral head without vianca dislocation. Degenerative change is noted at the glenohumeral and acromioclavicular joints. The overlying soft tissues are normal as visualized. The imaged right lung parenchyma appears clear. The heart is enlarged. IMPRESSION: 1. No acute fracture is identified. 2. There is anterior subluxation of the humeral head without clear dislocation. 3. A Hill-Sachs lesion is again noted in the humeral head. Electronically signed by: Julian Sibley M.D. 07/22/2022 2:22 PM Chest X-Ray 07/22/22 12:18 SINGLE VIEW CHEST CLINICAL HISTORY: Edema. FINDINGS: An AP, portable, upright chest radiograph is compared to study dated 04/28/2022 and correlated with chest CT dated 02/06/2022. The heart is enlarged. The pulmonary vasculature is noncongested. Aneurysmal dilatation of the ascending thoracic aorta was better assessed on the recent chest CT. Chronic interstitial thickening similar to previous. The lungs and pleural spaces are clear noting bibasilar scarring/atelectasis. No pneumothorax is seen. The skeletal structures are osteopenic. The bony thorax is grossly intact. Arthritic change is seen in the shoulders. IMPRESSION: Cardiomegaly with no acute cardiopulmonary abnormality identified. ACT 112: Negative or not required by law. Electronically signed by: Julian Sibley M.D. 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, Shoulder subluxation, right, Chronic pain, Hypokalemia, Bilateral leg pain Patient Disposition: Being Evaluated by Hospitalist Discharge Instructions Interventions: ED Discharge Assessment Last Done: 07/22/22 18:00 Forms Stand Alone Forms: [facility] Prescriptions Prescriptions: No Action atorvastatin 20 mg tablet 20 mg PO QAM ipratropium-albuterol 0.5 mg-3 mg(2.5 mg base)/3 mL solution for nebulization 3 ml INHALATION QID PRN (Reason: Shortness Of Breath) ondansetron HCl 4 mg Tablet 4 mg PO Q12 PRN (Reason: Nausea) sennosides-docusate sodium [Senna-S] 8.6-50 mg Tablet 1 tab-cap PO BID cromolyn 4 % drops 1 drp OPL QID PRN (Reason: Itching) thiamine HCl (vitamin B1) 100 mg Tablet 100 mg PO BID docusate sodium 50 mg Capsule 50 mg PO BID triamcinolone acetonide 0.1 % cream 1 applic TOPICAL BID PRN (Reason: FLARE UP) potassium chloride [Klor-Con] 20 mEq packet 20 meq PO AMHS Rx Instructions: WHILE ON LASIX meclizine 25 mg Tablet 25 mg PO TID PRN (Reason: DIZZY) levothyroxine 50 mcg tablet 50 mcg PO DAILY omeprazole 20 mg capsule,delayed release(DR/EC) 40 mg PO DAILY montelukast 10 mg tablet 10 mg PO HS hydroxyzine HCl 25 mg Tablet 25 mg PO Q6 PRN (Reason: .ANX/ITCH) ergocalciferol (vitamin D2) [Vitamin D2] 1,250 mcg (50,000 unit) Capsule 1,250 mcg PO WK Rx Instructions: give wed fluticasone propion-salmeterol [Advair Diskus] 100-50 mcg/dose Blister With Device 1 inh INHALATION BID albuterol sulfate 90 mcg/actuation Hfa Aerosol Inhaler 2 inh INHALATION Q6 PRN (Reason: Shortness Of Breath Or Wheezing) carbidopa-levodopa 25-100 mg Tablet 1 tab PO QID fluticasone propionate [Flonase Allergy Relief] 50 mcg/actuation [place],Suspension 2 spray INTRANASAL DAILY ipratropium bromide 21 mcg (0.03 %) [place],Non-Aerosol 1 spray INTRANASAL QID cyanocobalamin (vitamin B-12) 1,000 mcg/mL Syringe 1,000 mcg MO Rx Instructions: INJECTION omega-3 fatty acids Capsule 1,000 mg PO DAILY metoprolol tartrate 25 mg tablet 12.5 mg PO DAILY biotin 1 mg Tablet 1 mg PO DAILY Linzess 290 mcg capsule 290 mcg PO DAILY buprenorphine 15 mcg/hour patch weekly 1 patch topical WK Rx Instructions: sat PreserVision AREDS-2 250-90-40-1 mg Capsule 1 tab PO BID Probiotic Acidophilus Biobeads 12.9 mg (2 billion cell) Tablet,Delayed Release (Dr/Ec) 2 tab PO DAILY lidocaine HCl 2.8 % Gel 1 applic TOPICAL BID PRN (Reason: APPLY TO AFFECTED AREAA) metaxalone 800 mg tablet 400 mg PO TID PRN (Reason: Spasms) Qty: 10 0RF Rx Instructions: TAKE 1 TAB IN AM,NOON,PM, HS ropinirole 1 mg tablet 1 mg PO TID Rx Instructions: give 0800, 1200, 1700 ropinirole 2 mg tablet 2 mg PO HS Rx Instructions: 2000 warfarin [Jantoven] 4 mg Tablet 4 mg PO DAILY@1600 Qty: 30 0RF enoxaparin [Lovenox] 80 mg/0.8 mL Syringe 70 mg subcut Q12H Qty: 8 0RF Rx Instructions: Continue bridge therapy until INR 2-3 oxycodone-acetaminophen [Percocet] 5-325 mg Tablet 1 tab PO Q8H PRN (Reason: severe breakthrough pain) Qty: 10 0RF furosemide 20 mg Tablet 20 mg PO DAILY Qty: 30 0RF Referrals Referrals: STATE TARUN BARNETT [Primary Care Provider] -
[2022-07-22 12:52] LABS: Basophils # (auto) 0.05 K/uL (0-0.2); Eosinophils # (auto) 0.16 K/uL (0-0.50); Eosinophils % (auto) 3.1 %; Hematocrit (blood only) 29.6 % (34.1-44.9); Hemoglobin 9.3 g/dl (12.0-16.0); Immature Granulocytes # (auto) 0.01 K/uL (0.00-0.02); Immature Granulocytes % (auto) 0.2 %; Lymphocytes # (auto) 1.07 K/uL (1.2-3.4); Lymphocytes % (auto) 21.1 %; Mean Corpuscular Hemoglobin 28.4 pg (25.0-34.0); Mean Corpuscular Hgb Conc 31.4 g/dL (32.0-36.0); Mean Corpuscular Volume 90.2 fL (80.0-100.0); Mean Platelet Volume 11.1 fL (9.4-12.3); Monocytes # (auto) 0.71 K/uL (0.24-0.82); Neutrophils # (auto) 3.08 K/uL (1.4-6.5); Neutrophils % (auto) 60.6 %; Platelet Count 242 K/uL (130-400); RDW Coefficient of Variation 16.3 % (11.5-14.5); RDW Standard Deviation 53.5 fL (36.4-46.3); Red Blood Count 3.28 M/uL (3.93-5.22); White Blood Count 5.08 K/ul (4.8-10.8)
[2022-07-22 13:17] LABS: Anion Gap 6 (3-11); BUN Creatinine Ratio 21.1 (10-20); Blood Urea Nitrogen 15 mg/dl (6-23); Calcium 9.4 mg/dl (8.5-10.1); Carbon Dioxide 27 mmol/L (21-32); Chloride 107 mmol/L (98-107); Creatinine Clr Calc Pharmacy 65.7 ml/min; Est GFR (African American) 98.6 ml/min; Est GFR (Non-African American) 85.1 ml/min; Glucose 83 mg/dl (70-99(Fasting)); Potassium 3.2 mmol/L (3.5-5.1); Sodium 140 mmol/L (136-145)
[2022-07-22 13:28] LABS: Alanine Aminotransferase < 3 U/L (7-52); Albumin Globulin Ratio 1.3 (0.9-2); Albumin Level 3.2 gm/dl (3.4-5.0); Alkaline Phosphatase 136 U/L (34-104); Aspartate Aminotransferase 9 U/L (13-39); Bilirubin,Total 0.4 mg/dl (0.2-1.0); Globulin 2.5 gm/dl (2.5-4.0); Total Protein 5.7 gm/dl (6.0-8.3)
[2022-07-22 13:47] LABS: INR 1.5 (0.9-1.1); Partial Thromboplastin Ratio 1.2; Partial Thromboplastin Time 33.6 Seconds (21.0-31.0); Prothrombin Time 15.5 Seconds (9.0-12.0)
--- NOTE | 2022-07-22 14:20 | XRay Report ---
SINGLE VIEW CHEST CLINICAL HISTORY: Edema. FINDINGS: An AP, portable, upright chest radiograph is compared to study dated 04/28/2022 and correla sergo with chest CT dated 02/06/2022. The heart is enlarged. The pulmonary vasculature is noncongested. A neurysmal dilatation of the ascending thoracic aorta was better assessed on the recent chest CT. Calibration Tester oh interstitial thickening similar to previous. The lungs and pleural spaces are clear noting bibasi lar scarring/atelectasis. No pneumothorax is seen. The skeletal structures are osteopenic. The bony t horax is grossly intact. Arthritic change is seen in the shoulders. IMPRESSION: Cardiomegaly with no acute cardiopulmonary abnormality identified. ACT 112: Negative or not required by law. Electronically signed by: Juilan Sibley M.D. 07/22/2022 2:19 PM
--- NOTE | 2022-07-22 14:24 | XRay Report ---
RIGHT SHOULDER 3 VIEWS CLINICAL HISTORY: Right shoulder pain. History of dislocations. FINDINGS: 3 views of the right shoulder are compared to study dated 07/13/2022 and correlated with [facility] shoulder CT dated 05/01/2022. The skeletal structures are osteopenic. There is no radiographic evid ence of acute fracture. A Hill-Sachs lesion is again seen in the humeral head. There is anterior subl uxation of the humeral head without vianca dislocation. Degenerative change is noted at the glenohumer al and acromioclavicular joints. The overlying soft tissues are normal as visualized. The imaged [facility] lung parenchyma appears clear. The heart is enlarged. IMPRESSION: 1. No acute fracture is identified. 2. There is anterior subluxation of the humeral head without clear dislocation. 3. A Hill-Sachs lesion is again noted in the humeral head. Electronically signed by: Julian Sibley M.D. 07/22/2022 2:22 PM
[2022-07-22] MEDS ORDERED: FUROSEMIDE 40 MG/4 ML VIAL IV ONE (14:40)
[2022-07-22] MEDS ORDERED: MoRPHine SULFATE 4 MG/ML 1 ML CARP\\VIAL IV STA (14:40)
[2022-07-22] MEDS ORDERED: POTASSIUM CHLORIDE / WTR 10 MEQ/100 ML PLCT IV ONE (14:47)
[2022-07-22] MEDS: LIDOCAINE 5% 1 PATCH TD SCH (14:58)
[2022-07-22] MEDS ORDERED: POTASSIUM CHLORIDE CRTAB 20 MEQ TABCR PO STA (15:56)
--- NOTE | 2022-07-22 16:01 | History & Physical Report ---
Date of Service July 22, 2022 Assessment & Plan (1) Bilateral leg pain: (2) Leg swelling: (3) Ambulatory dysfunction: (4) Shoulder pain: (5) Dislocation of right shoulder joint: (6) Chronic pain: (7) Hypokalemia: (8) Generalized weakness: (9) Edenilson-Danlos syndrome: (10) ISAC (generalized anxiety disorder): (11) Pulmonary embolism: (12) Protein C deficiency: (13) Obesity: (14) Sleep apnea: Plan This is a 72 yo F with a PMH of chronic diastolic heart failure (EF 60 to 65%, TTE 2020), thoracic aortic aneurysm, hypercoagulopathy (hx PE/DVT/protein C deficiency on Coumadin), hypertension, PSVT, PVD, BRANDIE (CPAP intolerance), Edenilson-Danlos syndrome, bronchial asthma, chronic anemia (baseline hemoglobin 10-11 ), Parkinson's disease, mood disorder, hypothyroidism, fibromyalgia on buprenorphine patch, restless leg syndrome, ambulatory dysfunction, R shoulder pain secondary to rotator cuff tear and other medical problems listed below who presents from [facility] via EMS due to increased pain in R shoulder and BLE pain and swelling. BLE edema Chronic issue, h/o diastolic HF and underlying chronic venous insufficiency Recurrent infections in past but do not appear infected today - afebrile, no white count, normal procal Venous dopplers given subtherapeutic INR, sedentary Normal lactate, procalcitonin Given 40mg IV lasix this evening - home regimen is 40mg PO daily. Will assess diuresis and reevaluate in AM Leg elevation as able Anterior subluxation of the R humeral head Acute to subacuteHill-Sachs impaction fracture and bony Bankart H/O recurrent anterior right shoulder dislocation H/O R rotator cuff tear, Edenilson-Danlos Syndrome Shoulder XR with 1. No acute fracture is identified. 2. There is anterior subluxation of the humeral head without clear dislocation. 3. A Hill-Sachs lesion is again noted in the humeral head Planned for surgery as outpatient at [facility] but not medically optimized Consider orthopedic consult, pain mgmt if no improvement Continue buprenorphine patch, PRN percocet, lidocaine patch, ice to affected area H/O Ambulatory dysfunction H/O Parkinson's disease/RLS Fall precautions PT/OT H.o fibromyalgia, chronic pain on buprenorphine patch, PRN Percocet for breakthrough pain, added lidocaine patch Also on Skelaxin At high risk for polypharmacy given extensive med list Hypercoagulopathy H/O PE, DVT, protein C deficiency INR now subtherapeutic at 1.5 Given missed dose of Coumadin Monitor INR daily Chronic diastolic heart failure: BNP 220, BLE edema (chronic), CXR with cardiomegaly with no acute cardiopulmonary abnormality identified Given IV lasix this evening. Monitor volume status closely, low sodium diet, continue beta nathan Parkinson's Disease Chronic, stable. Continue carbidopa levodopa HTN Continue Lopressor Hypothyroidism Continue levothyroxine RLS Continue home medications Anemia of chronic disease Hgb stable. Monitor Asthma No signs acute exacerbation. Continue home inhalers H/O Gastric bypass with chronic constipation, narcotics Bowel regimen TAA Declined surgery in the past GERD Continue PPI H/O Edenilson-Danlos syndrome stable BRNADIE H/O Intolerance to CPAP DVT Px: Coumadin Code Status: Full code PCP: Kaylah Agee Disposition: Admitted med/surg Patient seen in collaboration with Dr. Willett. Please see addendum. A total of 80 minutes were spent with greater than 50% of that time face to face with the patient, personally reviewing all current laboratories, imaging studies, past medication reconciliation, outpatient chart review, and discussion with specialists to collaborate care for the patient with attending. Please see attending documentation. History of Present Illness Chief Complaint: Shoulder pain, leg pain Primary Care Provider: [facility] This is a 72 yo F with a PMH of chronic diastolic heart failure (EF 60 to 65%, TTE 2020), thoracic aortic aneurysm, hypercoagulopathy (hx PE/DVT/protein C deficiency on Coumadin), hypertension, PSVT, PVD, BRANDIE (CPAP intolerance), Edenilson-Danlos syndrome, bronchial asthma, chronic anemia (baseline hemoglobin 10-11 ), Parkinson's disease, mood disorder, hypothyroidism, fibromyalgia on buprenorphine patch, restless leg syndrome, ambulatory dysfunction, R shoulder pain secondary to rotator cuff tear and other medical problems listed below who presents from [facility] via EMS due to increased pain in R shoulder. Has has chronic pain due to chronic dislocation of right shoulder but apparently had increased pain due to rolling during the night onto that shoulder. Also with increased swelling and pain in lower legs. Patient also tearful over pain from K rider going into IV in left upper extremity which she states is the worst pain during evaluation. Does have been friend morphine patch on. No falls or significant trauma. States leg pain has improved since Cisneros catheter was placed. Also states that shoulder pain has improved since moving her pulse ox to her other hand. Lidocaine patch not helping pain much, per patient. Denies any recent infection, fever, chills, lightheadedness, chest pain or shortness of breath. No nausea, vomiting, abdominal pain, dysuria, diarrhea constipation. Frustrated about ongoing pain that is not controlled with current regimen of Butrans patch and Percocet for breakthrough pain. States she is due for right shoulder surgery to fix chronic dislocation but is currently not optimized per surgery based on [facility] internal medicine preop appointment due to ongoing issues with leg edema and complicated anticoagulation needs perioperatively. Allergies Allergy/AdvReac Type Severity Reaction Status Date / Time ammonia Allergy Severe FACE, Verified 04/28/22 23:43 LIPS, TONGUE EDEMA buspirone Allergy Severe NEURO Verified 04/28/22 23:43 COMPLICATIONS duloxetine Allergy Intermediate RASH Verified 04/28/22 23:43 ITCHING lisinopril Allergy Intermediate cough Verified 04/28/22 23:43 adhesive Allergy Mild skin tears Verified 04/28/22 23:43 NSAIDS (Non-Steroidal Allergy Unknown not Verified 04/28/22 23:43 Anti-Inflamma supposed to use-S/P GASTRIC BYPASS vancomycin Allergy Unknown ON [facility] MED Verified 04/28/22 23:43 LIST venlafaxine Allergy Unknown AFFECTS Verified 04/28/22 23:43 LEGS diphenhydramine AdvReac Intermediate RESTLESS Verified 04/28/22 23:43 LEGS gabapentin AdvReac Intermediate MUSCLE Verified 04/28/22 23:43 STIFFNESS Home Medications Medication Instructions Recorded Confirmed Type L.acidoph-L.rhamn-B.bifidum-B.long 2 tab PO DAILY 01/09/22 07/22/22 History 12.9 mg (2 billion cell) DR fam (Probiotic Acidophilus Jimmie) albuterol sulfate 90 mcg/actuation 2 inh inhalation Q6 PRN Shortness 01/09/22 07/22/22 History aerosol inhaler Of Breath Or Wheezing atorvastatin 20 mg tablet 20 mg PO QAM 01/09/22 07/22/22 History biotin 1 mg tablet 1 mg PO DAILY 01/09/22 07/22/22 History buprenorphine 15 mcg/hour weekly 1 patch topical WK 01/09/22 07/22/22 History transdermal patch carbidopa 25 mg-levodopa 100 mg 1 tab PO QID 01/09/22 07/22/22 History tablet cromolyn 4 % eye drops 1 drp OPL QID PRN Itching 01/09/22 07/22/22 History cyanocobalamin (vitamin B-12) 1,000 mcg MO 01/09/22 07/22/22 History 1,000 mcg/mL injection syringe docusate sodium 50 mg capsule 50 mg PO BID 01/09/22 07/22/22 History ergocalciferol (vitamin D2) 1,250 1,250 mcg PO WK 01/09/22 07/22/22 History mcg (50,000 unit) capsule (Vitamin D2) fluticasone 100 mcg-salmeterol 50 1 inh inhalation BID 01/09/22 07/22/22 History mcg/dose blistr powdr for inhalation (Advair Diskus) fluticasone propionate 50 2 spray intranasal DAILY 01/09/22 07/22/22 History mcg/actuation nasal spray,suspension (Flonase Allergy Relief) hydroxyzine HCl 25 mg tablet 25 mg PO Q6 PRN .ANX/ITCH 01/09/22 07/22/22 History ipratropium 0.5 mg-albuterol 3 mg 3 ml inhalation QID PRN Shortness 01/09/22 07/22/22 History (2.5 mg base)/3 mL nebulization Of Breath soln ipratropium bromide 21 mcg (0.03 1 spray intranasal QID 01/09/22 07/22/22 History %) nasal spray levothyroxine 50 mcg tablet 50 mcg PO DAILY 01/09/22 07/22/22 History lidocaine HCl 2.8 % topical gel 1 applic topical BID PRN APPLY TO 01/09/22 07/22/22 History AFFECTED AREAA linaclotide 290 mcg capsule 290 mcg PO DAILY 01/09/22 07/22/22 History (Linzess) meclizine 25 mg tablet 25 mg PO TID PRN DIZZY 01/09/22 07/22/22 History metoprolol tartrate 25 mg tablet 12.5 mg PO DAILY 01/09/22 07/22/22 History montelukast 10 mg tablet 10 mg PO HS 01/09/22 07/22/22 History omega-3 fatty acids 1,000 mg PO DAILY 01/09/22 07/22/22 History omeprazole 20 mg capsule,delayed 40 mg PO DAILY 01/09/22 07/22/22 History release ondansetron HCl 4 mg tablet 4 mg PO Q12 PRN Nausea 01/09/22 07/22/22 History potassium chloride 20 mEq oral 20 meq PO UD 01/09/22 07/22/22 History packet (Klor-Con) sennosides 8.6 mg-docusate sodium 1 tab-cap PO BID 01/09/22 07/22/22 History 50 mg tablet (Senna-S) thiamine HCl (vitamin B1) 100 mg 100 mg PO BID 01/09/22 07/22/22 History tablet triamcinolone acetonide 0.1 % 1 applic topical BID PRN FLARE UP 01/09/22 07/22/22 History topical cream vit C 250 mg-vit E 90 mg-zinc 40 1 tab PO BID 01/09/22 07/22/22 History mg-copper 1 [id number] capsule (PreserVision AREDS-2) metaxalone 800 mg tablet 400 mg PO TID PRN Spasms #10 tabs 04/25/22 07/22/22 Rx ropinirole 1 mg tablet 1 mg PO TID 04/28/22 07/22/22 History ropinirole 2 mg tablet 2 mg PO HS 04/28/22 07/22/22 History diclofenac sodium 1 % topical gel 2 g topical QID PRN Pain 07/22/22 07/22/22 History (Voltaren Arthritis Pain) furosemide 20 mg tablet 40 mg PO DAILY 07/22/22 07/22/22 History mirtazapine 15 mg tablet 15 mg PO HS 07/22/22 07/22/22 History oxycodone-acetaminophen 5 mg-325 1 tab PO Q6H PRN pain #7 tabs 07/28/22 Rx mg tablet (Percocet) warfarin 4 mg tablet 4 mg PO DAILY #10 tabs 07/28/22 Rx Past Med/Surg History Medical History (Updated 07/28/22 @ 00:07 by Background Daemon) Abdominal hernia Acute exacerbation of chronic low back pain ADHD Anemia Asthma uses PRN INH 3-4 x wk Bulging of intervertebral disc Claustrophobia Coagulopathy Difficult intravenous access Dysphagia Edenilson-Danlos syndrome Fibromyalgia ISAC (generalized anxiety disorder) Gastroparesis GERD (gastroesophageal reflux disease) Hearing deficit History of colon polyps History of colon polyps History of DVT (deep vein thrombosis) chronic anticoagulation History of intestinal obstruction Hyperlipidemia Hypokalemia Hypothyroidism Opioid dependence Osteoarthritis Osteoporosis Peripheral neuropathy Protein C deficiency Pulmonary embolism 07/2018 - treated w/ lovenox - unk etiology Recurrent falls Renal cyst Restless leg syndrome Sleep apnea unable to tolerate CPAP Tachycardia Thoracic aortic aneurysm follows w/ Dr. Arredondo - evaluated within last 6 mo Thyroid nodule Weakness Surgical History History of abdominoplasty + hernia repair History of arthroscopy of left knee History of bilateral breast reduction surgery History of cholecystectomy History of colonoscopy History of esophagogastroduodenoscopy (EGD) History of gastric bypass History of intestinal surgery History of laparotomy History of left knee replacement History of right knee joint replacement History of tonsillectomy Hx of melanoma excision shoulder S/P hysterectomy Self extubation attempted post gastric bypass Status post biopsy of thyroid gland benign Family History Uncle Stomach cancer Other No family history of adverse response to anesthesia No pertinent family history in first degree relatives Social History Smoking Status: Never smoker Second Hand Exposure: No; Hx Alcohol Use: No Hx Substance Use: No Preferred Language: Irish Communication Ability: Effective Visual Impairment: Limited Hearing Ability: Normal Missile Facilities Repairer Required: No Beliefs That Will Affect Care: None marital status: Single Current Living Situation: Long-Term Current Living Situation Comment: has friends to help when needed How many Children do You have: 0 Other Information That Helps Us Care for You: No Feels Safe at Home: Yes Safety Concerns: Feels Safe At This Time Assistive Devices: Walker Review of Systems Review of Systems: At least ten systems reviewed and negative except as noted in the HPI. Physical Exam Physical Exam: General Appearance: WD/WN, vitals as above, NAD, lying in bed, tearful Head: normocephalic, atraumatic Eyes: normal inspection, PERRL, conjunctivae normal, anicteric sclerae ENT: external ear and nose normal, oropharynx normal Neck: normal visual inspection, trachea midline, no thyromegaly Respiratory: normal respiratory effort, lungs clear to auscultation, no wheeze, rales, rhonchi. No accessory muscle use Cardiovascular: regular rate, rhythm, no murmur, normal peripheral pulses. Vessels: no JVD Chest: normal inspection of chest Abdomen/GI: normal bowel sounds, soft, nontender, no hepatosplenomegaly Extremities/Musculoskeletal: no cyanosis or clubbing, extremities motor strength 5/5, BLE 3+ edema, + R shoulder dislocated (chronic) with lidocaine patch in place Neurologic: PERRL, EOMI, accommodation nl, no face palsy, no dysarthria, CN's II-XI intact bilaterally and moves all extremities Psychiatric: A+Ox3, depressed, poor insight Skin: no rashes, normal color, warm/dry Results & Data Results & Data ([facility]) Vital Signs (Past 12 Hours) Vital Signs Temp Pulse Pulse Resp BP BP Pulse Ox 07/22/22 15:10 85 18 99 07/22/22 15:05 67 14 98 07/22/22 15:00 115/69 07/22/22 13:00 64 18 117/69 98 07/22/22 11:55 37.0 C 68 20 111/64 99 O2 Del Method 07/22/22 15:10 07/22/22 15:05 07/22/22 15:00 07/22/22 13:00 Room Air 07/22/22 11:55 Room Air Laboratory Results Short CBC 07/22/22 Range/Units 12:45 WBC 5.08 (4.8-10.8) K/ul Hgb 9.3 L (12.0-16.0) g/dl Hct 29.6 L (34.1-44.9) % Plt Count 242 (130-400) K/uL BMP 07/22/22 12:45 Sodium 140 Potassium 3.2 L Chloride 107 Carbon Dioxide 27 BUN 15 Creatinine 0.71 Glucose 83 Calcium 9.4 Liver Function 07/22/22 Range/Units 12:45 Total Bilirubin 0.4 (0.2-1.0) mg/dl AST 9 L (13-39) U/L ALT < 3 L (7-52) U/L Alkaline Phosphatase 136 H (34-104) U/L Albumin 3.2 L (3.4-5.0) gm/dl Diagnostic Findings Shoulder X-Ray 07/22/22 12:14 RIGHT SHOULDER 3 VIEWS CLINICAL HISTORY: Right shoulder pain. History of dislocations. FINDINGS: 3 views of the right shoulder are compared to study dated 07/13/2022 and correlated with right shoulder CT dated 05/01/2022. The skeletal structures are osteopenic. There is no radiographic evidence of acute fracture. A Hill-Sachs lesion is again seen in the humeral head. There is anterior subluxation of the humeral head without vianca dislocation. Degenerative change is noted at the glenohumeral and acromioclavicular joints. The overlying soft tissues are normal as visualized. The imaged right lung parenchyma appears clear. The heart is enlarged. IMPRESSION: 1. No acute fracture is identified. 2. There is anterior subluxation of the humeral head without clear dislocation. 3. A Hill-Sachs lesion is again noted in the humeral head. Electronically signed by: Julian Sibley M.D. 07/22/2022 2:22 PM Chest X-Ray 07/22/22 12:18 SINGLE VIEW CHEST CLINICAL HISTORY: Edema. FINDINGS: An AP, portable, upright chest radiograph is compared to study dated 04/28/2022 and correlated with chest CT dated 02/06/2022. The heart is enlarged. The pulmonary vasculature is noncongested. Aneurysmal dilatation of the ascending thoracic aorta was better assessed on the recent chest CT. Chronic interstitial thickening similar to previous. The lungs and pleural spaces are clear noting bibasilar scarring/atelectasis. No pneumothorax is seen. The skeletal structures are osteopenic. The bony thorax is grossly intact. Arthritic change is seen in the shoulders. IMPRESSION: Cardiomegaly with no acute cardiopulmonary abnormality identified. ACT 112: Negative or not required by law. Electronically signed by: Julian Sibley M.D. 07/22/2022 2:19 PM ECG Additional Comments: ECG independently reviewed -normal sinus rhythm, no acute changes Code Status & VTE Plan VTE Prophylaxis Plan VTE Prophylaxis will be ordered: Yes Supervising Physician Co-Signing Physician Notes Pt was seen and examined. Agreed with Sara SCHMIDT exam, assessment and plan. 72 yo F with a PMH of chronic diastolic heart failure (EF 60 to 65%, TTE 2020), thoracic aortic aneurysm, hypercoagulopathy (hx PE/DVT/protein C deficiency on Coumadin), hypertension, PSVT, PVD, BRANDIE (CPAP intolerance), Edenilson-Danlos syndrome, bronchial asthma, chronic anemia, Parkinson's disease, mood disorder, hypothyroidism, fibromyalgia on buprenorphine patch, restless leg syndrome, ambulatory dysfunction, R shoulder pain secondary to rotator cuff tear who presents from [facility] via EMS due to increased pain in R shoulder. Pt has chronic pain due to chronic dislocation of right shoulder. She said that right shoulder pain increased. She also has b/l LE edema. Right shoulder xray showed anterior subluxation of the humeral head without clear dislocation. A Hill-Sachs lesion is again noted in the humeral head. Doppler of LE showed no sonographic evidence of deep venous thrombosis identified in the right or left lower extremity. Continue pain control. PT/OT eval. If pain worsening, consider ortho consult. Fall precaution. Continue monitor closely. MD Tamie (1) Chronic pain Chronic pain type: chronic pain syndrome Qualified Code(s): G89.4 - Chronic pain syndrome (2) Shoulder pain Chronicity: acute Laterality: right Qualified Code(s): M25.511 - Pain in ri ght shoulder
[2022-07-22] MEDS ORDERED: ACETAMINOPHEN 500 MG TAB PO STA (16:47)
[2022-07-22] MEDS ORDERED: ONDANSETRON INJ 2 MG/ML 2 ML VIAL IV PRN (18:42)
[2022-07-22] MEDS ORDERED: POLYETHYLENE (MIRALAX) 17 GM PACK PO PRN (18:42)
[2022-07-22] MEDS ORDERED: ALBUT/IPRATROP 3MG/0.5MG NEB 3 ML VIAL INH PRN (19:33)
[2022-07-22] MEDS ORDERED: ALBUTEROL HFA 8 GM INHALER INH PRN (19:33)
[2022-07-22] MEDS ORDERED: DICLOFENAC SOD 1% GEL 100 GM TUBE EXT PRN (19:33)
[2022-07-22] MEDS ORDERED: MECLIZINE HCL 25 MG TAB PO PRN (19:39)
[2022-07-22] MEDS ORDERED: METAXALONE 800 MG TABLET PO PRN (19:44)
[2022-07-22] MEDS: oxyCODONE/ACETAMINOPHEN 5mg/325mg TAB PO PRN (20:20)
[2022-07-22] MEDS ORDERED: WARFARIN SOD 4 MG TAB PO STA (20:41)
[2022-07-22] MEDS ORDERED: NON-FORMULARY MEDICATION (Docusate Sodium 50 mg Capsule) PO SCH (21:00)
[2022-07-22] MEDS: THIAMINE HCL 100 MG TAB PO SCH (21:34)
[2022-07-22] MEDS: POTASSIUM CHLORIDE PWD 20 MEQ PACK PO SCH (21:34)
--- NOTE | 2022-07-22 22:13 | Ultrasound Report ---
ULTRASOUND BILATERAL LOWER EXTREMITY VENOUS CLINICAL HISTORY: Leg pain and swelling. COMPARISON STUDY: Bilateral lower extremity venous ultrasound dated 01/10/2022. TECHNIQUE: Real-time, grayscale, and color Doppler sonography of the deep veins of the right and left lower extremity was performed from the inguinal crease to the calf. Compression and augmentation wer e utilized. FINDINGS: There is no sonographic evidence of deep venous thrombosis identified in the right or left lower extremity. The common femoral, superficial femoral, and popliteal veins are patent and normally compressible bilaterally. The greater saphenous vein and the profunda femoris vein at the junction w ith the common femoral vein are clear in both legs. The visualized calf veins are patent bilaterally. Soft tissue edema is present in both legs. IMPRESSION: There is no sonographic evidence of deep venous thrombosis identified in the right or lef t lower extremity. ACT 112: Negative or not required by law. Electronically signed by: Julian Sibley M.D. 07/22/2022 10:12 PM
[2022-07-22] MEDS: CEROVITE ADV FORMULA TAB PO SCH (22:27)
[2022-07-22] MEDS: MONTELUKAST SODIUM 10 MG TABLET PO SCH (22:28)
[2022-07-22] MEDS: MIRTAZAPINE TAB 15 MG TAB PO SCH (22:28)
[2022-07-22] MEDS: CARBIDOPA/LEVODOPA 25/100MG TAB PO SCH (22:28)
[2022-07-22] MEDS: DOCUSATE SODIUM/SENNA 50/8.6MG TAB PO SCH (22:29)
[2022-07-22] MEDS: HEPARIN SOD 5,000 UNIT/0.5 ML VIAL SQ SCH (22:29)
[2022-07-22] MEDS: rOPINIRole HCL 2 MG TABLET PO SCH (22:30)
--- NOTE | 2022-07-22 22:33 | Electrocardiogram Report ---
Test Reason : Blood Pressure : / mmHG Vent. Rate : 066 BPM Atrial Rate : 066 BPM P-R Int : 194 ms QRS Dur : 110 ms QT Int : 412 ms P-R-T Axes : 048 -02 019 degrees QTc Int : 431 ms Normal sinus rhythm Normal ECG When compared with ECG of 13-JUL-2022 20:50, No significant change was found Confirmed by Souleymane Martinez ([id number]) on 07/22/2022 10:33:26 PM Referred By: [facility] Confirmed By:Souleymane Martinez
[2022-07-23] MEDS: hydrOXYzine HCl 25 MG TAB PO PRN (03:06)
[2022-07-23] MEDS: ACETAMINOPHEN 325 MG TAB PO PRN ×2 (03:06→13:12)
[2022-07-23] MEDS ORDERED: ALBUMIN 25% 100 mL 25 GM/100 ML VIAL IV ONE (04:10)
[2022-07-23 04:29] LABS: Hematocrit (blood only) 25.3 % (34.1-44.9); Mean Corpuscular Hemoglobin 28.2 pg (25.0-34.0); Mean Corpuscular Hgb Conc 31.6 g/dL (32.0-36.0); Mean Corpuscular Volume 89.1 fL (80.0-100.0); Mean Platelet Volume 10.6 fL (9.4-12.3); Platelet Count 220 K/uL (130-400); RDW Coefficient of Variation 16.4 % (11.5-14.5); RDW Standard Deviation 53.3 fL (36.4-46.3); Red Blood Count 2.84 M/uL (3.93-5.22); White Blood Count 4.43 K/ul (4.8-10.8)
[2022-07-23 04:39] LABS: INR 1.5 (0.9-1.1); Prothrombin Time 15.8 Seconds (9.0-12.0)
[2022-07-23 04:58] LABS: BUN Creatinine Ratio 17.9 (10-20); Calcium 8.6 mg/dl (8.5-10.1); Creatinine Clr Calc Pharmacy 67.8 ml/min; Est GFR (African American) 101.8 ml/min; Est GFR (Non-African American) 87.8 ml/min; Magnesium 1.7 mg/dl (1.7-2.4); Potassium 3.7 mmol/L (3.5-5.1)
[2022-07-23] MEDS: oxyCODONE/ACETAMINOPHEN 5mg/325mg TAB PO PRN ×2 (05:28→17:27)
[2022-07-23] MEDS: ADVANCED PROBIOTIC 1250 MG CAPSULE PO SCH (08:44)
[2022-07-23] MEDS: rOPINIRole HCL 1 MG TABLET PO SCH ×3 (08:44→17:26)
[2022-07-23] MEDS: DOCUSATE SODIUM/SENNA 50/8.6MG TAB PO SCH ×2 (08:45→20:57)
[2022-07-23] MEDS: OMEGA-3 (PURIFIED FISH OIL) 1 GM CAP PO SCH (08:45)
[2022-07-23] MEDS: CEROVITE ADV FORMULA TAB PO SCH ×2 (08:45→20:56)
[2022-07-23] MEDS: PANTOprazole 40 MG TAB PO SCH (08:45)
[2022-07-23] MEDS: CARBIDOPA/LEVODOPA 25/100MG TAB PO SCH ×4 (08:45→20:57)
[2022-07-23] MEDS: THIAMINE HCL 100 MG TAB PO SCH ×2 (08:46→20:57)
[2022-07-23] MEDS: POTASSIUM CHLORIDE PWD 20 MEQ PACK PO SCH ×2 (08:46→20:55)
[2022-07-23] MEDS: FLUTICASONE/VILANTEROL 100/25MCG 14 PUFFS/INHALER INH SCH (08:49)
[2022-07-23] MEDS: FLUTICASONE PROPIONATE NA SPR 16 GM BTL NAE SCH (08:50)
[2022-07-23] MEDS: HEPARIN SOD 5,000 UNIT/0.5 ML VIAL SQ SCH ×2 (08:50→20:58)
[2022-07-23] MEDS ORDERED: NON-FORMULARY MEDICATION (Biotin 1 mg Tablet) PO SCH (09:00)
[2022-07-23] MEDS: ATORVASTATIN 20 MG TAB PO SCH (10:57)
[2022-07-23] MEDS: LEVOTHYROXINE SODIUM 50 MCG TABLET PO SCH (10:58)
[2022-07-23] MEDS: LIDOCAINE 5% 1 PATCH TD SCH (13:10)
[2022-07-23] MEDS: METOPROLOL TARTRATE 25 MG TAB PO SCH (13:35)
[2022-07-23] MEDS: FUROSEMIDE 40 MG TAB PO SCH (15:07)
[2022-07-23] MEDS ORDERED: WARFARIN SOD 2.5 MG TAB PO SCH (16:00)
[2022-07-23] MEDS: MIRTAZAPINE TAB 15 MG TAB PO SCH (20:59)
[2022-07-23] MEDS: MONTELUKAST SODIUM 10 MG TABLET PO SCH (20:59)
[2022-07-23] MEDS: rOPINIRole HCL 2 MG TABLET PO SCH (21:07)
[2022-07-24] MEDS: oxyCODONE/ACETAMINOPHEN 5mg/325mg TAB PO PRN ×5 (01:30→18:48)
[2022-07-24] MEDS: hydrOXYzine HCl 25 MG TAB PO PRN ×2 (01:54→08:21)
--- NOTE | 2022-07-24 02:50 | Hospitalist Progress Note ---
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) ISAC (generalized anxiety disorder): (11) Pulmonary embolism: (12) Protein C deficiency: (13) Obesity: (14) Sleep apnea: Plan This is a 72 yo F with a PMH of chronic diastolic heart failure (EF 60 to 65%, TTE 2020), thoracic aortic aneurysm, hypercoagulopathy (hx PE/DVT/protein C deficiency on Coumadin), hypertension, PSVT, PVD, BRANDIE (CPAP intolerance), Edenilson-Danlos syndrome, bronchial asthma, chronic anemia (baseline hemoglobin 10-11 ), Parkinson's disease, mood disorder, hypothyroidism, fibromyalgia on buprenorphine patch, restless leg syndrome, ambulatory dysfunction, R shoulder pain secondary to rotator cuff tear and other medical problems listed below who presents from [facility] via EMS due to increased pain in R shoulder and BLE pain and swelling. BLE edema Chronic issue, h/o diastolic HF and underlying chronic venous insufficiency Recurrent infections in past but do not appear infected today - afebrile, no white count, normal procal Venous doppler showed no evidence of DVT Continue lasix 40mg PO daily. Will encourage pt to keep Leg elevates Anterior subluxation of the R humeral head Acute to subacuteHill-Sachs impaction fracture and bony Bankart H/O recurrent anterior right shoulder dislocation H/O R rotator cuff tear, Edenilson-Danlos Syndrome Shoulder XR with 1. No acute fracture is identified. 2. There is anterior subluxation of the humeral head without clear dislocation. 3. A Hill-Sachs lesion is again noted in the humeral head Planned for surgery as outpatient at [facility] but not medically optimized Consider orthopedic consult, pain mgmt if no improvement Continue buprenorphine patch, PRN percocet, lidocaine patch, ice to affected area H/O Ambulatory dysfunction H/O Parkinson's disease/RLS Fall precautions PT/OT H.o fibromyalgia, chronic pain on buprenorphine patch, PRN Percocet for breakthrough pain, added lidocaine patch Also on Skelaxin At high risk for polypharmacy given extensive med list Hypercoagulopathy H/O PE, DVT, protein C deficiency INR now subtherapeutic at 1.5 Given missed dose of Coumadin will start on IV heparin drip for now while INR subtherapeutic Monitor INR daily Chronic diastolic heart failure: BNP 220, BLE edema (chronic), CXR with cardiomegaly with no acute cardiopulmonary abnormality identified Continue PO lasix 40mg Parkinson's Disease Chronic, stable. Continue carbidopa levodopa HTN Continue Lopressor Hypothyroidism Continue levothyroxine RLS Continue home medications Anemia of chronic disease Hgb stable. Monitor Asthma No signs acute exacerbation. Continue home inhalers H/O Gastric bypass with chronic constipation, narcotics Bowel regimen TAA Declined surgery in the past GERD Continue PPI H/O Edenilson-Danlos syndrome stable BRANDIE H/O Intolerance to CPAP DVT Px: Coumadin Code Status: Full code PCP: Kaylah Agee Disposition: PT/OT eval Admission and Anticipated Discharge Date Admission Date: July 22, 2022 Subjective Pt was seen and examined for follow up shoulder pain Lying in bed with no acute distress Pt said that she is having pain whenever she moves her left upper extremity denies any chest pain, palpitation, dizziness and SOB Review of Systems Review of Systems: All systems reviewed & are unremarkable except as noted in Subjective Physical Exam Physical Exam: General- No acute distress Head- atraumatic Eyes- PERRL, EOMI, ENT- oropharynx clear Neck- supple, no JVD Lungs- clear to auscultation Heart- regular rhythm; no murmur Abdomen- normal bowel sounds, soft, nontender Extremities- no calf tenderness, +edema, + R shoulder dislocated (chronic) with lidocaine patch in place Neuro- alert, oriented x 3; PERRL, EOMI; no facial palsy; no dysarthria Skin- warm & dry Results & Data Results & Data ([facility]) Vital Signs (Past 12 Hours) Vital Signs Temp Pulse Pulse Resp BP Pulse Ox O2 Del Method 07/23/22 22:01 74 07/23/22 23:24 36.6 C 61 18 102/67 97 Room Air 07/23/22 20:27 37.1 C 68 18 96/62 L 97 Room Air 07/23/22 15:44 36.9 C 72 18 95/57 L 96 Room Air (1) Chronic pain Chronic pain type: chronic pain syndrome Qualified Code(s): G89.4 - Chronic pain syndrome (2) Shoulder pain Chronicity: acute Laterality: right Qualified Code(s): M25.511 - Pain in right shoulder
[2022-07-24] MEDS ORDERED: oxyCODONE HCL IR 5 MG TAB (IMMEDIATE RELEASE) PO STA (04:42)
[2022-07-24] MEDS: LEVOTHYROXINE SODIUM 50 MCG TABLET PO SCH (05:30)
--- NOTE | 2022-07-24 06:24 | CT Scan Report ---
CT hip RT wo con HISTORY: 72 years-old Female r hip pain. coumadin acute right-sided hip pain status post fall COMPARISON: CT right femur 03/17/2022, CT abdomen and pelvis February 06, 2022 TECHNIQUE: Multiple axial CT images of the right hip were obtained without the use of IV contrast. A dose lowering technique was used consistent with the principals of ANAIS. FINDINGS: Arterial calcifications. Gaseous distention of the large bowel with mild colonic fecal retention. Fol ey catheter in place with decompressed urinary bladder. Mild nonspecific subcutaneous edema. Demineralized appearance of the bones. Mild osteoarthritis of the right hip. Subcentimeter bone islan ds of the femoral head and iliac crest. No acute fracture, dislocation or avascular necrosis. There i s moderate degeneration of the right SI joint. No acute pelvic ring fracture identified. No large marco a nt effusion. IMPRESSION: Mild osteoarthritis without acute fracture or dislocation. ACT 112: Negative or not required by law. The above report was generated using voice recognition software. It may contain grammatical, syntax o r spelling errors. Electronically signed by: Keshawn Foster M.D. 07/24/2022 6:21 AM
[2022-07-24 06:56] LABS: Hematocrit (blood only) 31.1 % (34.1-44.9); Hemoglobin 9.8 g/dl (12.0-16.0); Mean Corpuscular Hemoglobin 27.9 pg (25.0-34.0); Mean Corpuscular Hgb Conc 31.5 g/dL (32.0-36.0); Mean Corpuscular Volume 88.6 fL (80.0-100.0); Platelet Count 242 K/uL (130-400); RDW Coefficient of Variation 16.5 % (11.5-14.5); RDW Standard Deviation 53.4 fL (36.4-46.3); Red Blood Count 3.51 M/uL (3.93-5.22); White Blood Count 6.75 K/ul (4.8-10.8)
[2022-07-24 07:39] LABS: BUN Creatinine Ratio 17.5 (10-20); Calcium 9.2 mg/dl (8.5-10.1); Creatinine Clr Calc Pharmacy 73.5 ml/min; Est GFR (African American) 103.9 ml/min; Est GFR (Non-African American) 89.6 ml/min; Potassium 4.1 mmol/L (3.5-5.1)
[2022-07-24 07:55] LABS: INR 1.3 (0.9-1.1); Prothrombin Time 14.1 Seconds (9.0-12.0)
[2022-07-24] MEDS: CEROVITE ADV FORMULA TAB PO SCH ×2 (08:13→20:37)
[2022-07-24] MEDS: THIAMINE HCL 100 MG TAB PO SCH ×2 (08:13→20:34)
[2022-07-24] MEDS: ATORVASTATIN 20 MG TAB PO SCH (08:13)
[2022-07-24] MEDS: METOPROLOL TARTRATE 25 MG TAB PO SCH (08:14)
[2022-07-24] MEDS: DOCUSATE SODIUM/SENNA 50/8.6MG TAB PO SCH ×2 (08:14→20:36)
[2022-07-24] MEDS: CARBIDOPA/LEVODOPA 25/100MG TAB PO SCH ×4 (08:14→20:34)
[2022-07-24] MEDS: OMEGA-3 (PURIFIED FISH OIL) 1 GM CAP PO SCH (08:14)
[2022-07-24] MEDS: PANTOprazole 40 MG TAB PO SCH (08:15)
[2022-07-24] MEDS: FUROSEMIDE 40 MG TAB PO SCH (08:15)
[2022-07-24] MEDS: rOPINIRole HCL 1 MG TABLET PO SCH ×3 (08:15→16:36)
[2022-07-24] MEDS: ADVANCED PROBIOTIC 1250 MG CAPSULE PO SCH (08:16)
[2022-07-24] MEDS: FLUTICASONE/VILANTEROL 100/25MCG 14 PUFFS/INHALER INH SCH (08:17)
[2022-07-24] MEDS: POTASSIUM CHLORIDE PWD 20 MEQ PACK PO SCH ×2 (08:17→20:37)
[2022-07-24] MEDS: FLUTICASONE PROPIONATE NA SPR 16 GM BTL NAE SCH (08:17)
[2022-07-24] MEDS: HEPARIN SOD 5,000 UNIT/0.5 ML VIAL SQ SCH (08:18)
[2022-07-24] MEDS: LIDOCAINE 5% 1 PATCH TD SCH (08:19)
[2022-07-24] MEDS: ACETAMINOPHEN 325 MG TAB PO PRN (08:21)
[2022-07-24] MEDS ORDERED: Heparin IV Adult Wt-Based Standard *NO* Bolus Protocol IV ONE (09:21)
[2022-07-24] MEDS: HEPARIN SODIUM/DEXTROSE 25,000 UNITS/500 ML BAG IV SCH (10:10)
[2022-07-24 16:36] LABS: Partial Thromboplastin Ratio 3.8
[2022-07-24] MEDS: WARFARIN SOD 5 MG TAB PO SCH (16:37)
[2022-07-24 17:03] LABS: Partial Thromboplastin Time 105.5 Seconds (21.0-31.0)
--- NOTE | 2022-07-24 18:48 | Hospitalist Progress Note ---
Date of Service July 24, 2022 Assessment & Plan (1) Bilateral leg pain: (2) Leg swelling: (3) Ambulatory dysfunction: (4) Shoulder pain: (5) Dislocation of right shoulder joint: (6) Chronic pain: (7) Hypokalemia: (8) Generalized weakness: (9) Edenilson-Danlos syndrome: (10) ISAC (generalized anxiety disorder): (11) Pulmonary embolism: (12) Protein C deficiency: (13) Obesity: (14) Sleep apnea: Plan This is a 72 yo F with a PMH of chronic diastolic heart failure (EF 60 to 65%, TTE 2020), thoracic aortic aneurysm, hypercoagulopathy (hx PE/DVT/protein C deficiency on Coumadin), hypertension, PSVT, PVD, BRANDIE (CPAP intolerance), Edenilson-Danlos syndrome, bronchial asthma, chronic anemia (baseline hemoglobin 10-11 ), Parkinson's disease, mood disorder, hypothyroidism, fibromyalgia on buprenorphine patch, restless leg syndrome, ambulatory dysfunction, R shoulder pain secondary to rotator cuff tear and other medical problems listed below who presents from [facility] via EMS due to increased pain in R shoulder and BLE pain and swelling. BLE edema Chronic issue, h/o diastolic HF and underlying chronic venous insufficiency Recurrent infections in past but do not appear infected today - afebrile, no white count, normal procal Venous doppler showed no evidence of DVT Continue lasix 40mg PO daily. Will encourage pt to keep Leg elevates Anterior subluxation of the R humeral head Acute to subacuteHill-Sachs impaction fracture and bony Bankart H/O recurrent anterior right shoulder dislocation H/O R rotator cuff tear, Edenilson-Danlos Syndrome Shoulder XR with 1. No acute fracture is identified. 2. There is anterior subluxation of the humeral head without clear dislocation. 3. A Hill-Sachs lesion is again noted in the humeral head Planned for surgery as outpatient at [facility] but not medically optimized Consider orthopedic consult, pain mgmt if no improvement Will ask case management to call the facility to see if someone can bring the buprenorphine patch since it was not changed on Saturday. Continue PRN percocet, lidocaine patch, ice to affected area H/O Ambulatory dysfunction H/O Parkinson's disease/RLS Fall precautions PT/OT Right hip pain CT shows mild osteoarthritis without acute fracture or dislocation. Continue Percocet and lidocaine patch H.o fibromyalgia, chronic pain on buprenorphine patch, PRN Percocet for breakthrough pain, added lidocaine patch Also on Skelaxin At high risk for polypharmacy given extensive med list Hypercoagulopathy H/O PE, DVT, protein C deficiency INR now subtherapeutic at 1.3 Coumadin increased to 5 mg Continue IV heparin drip for now while INR subtherapeutic Monitor INR daily Chronic diastolic heart failure: BNP 220, BLE edema (chronic), CXR with cardiomegaly with no acute cardiopulmonary abnormality identified Continue PO lasix 40mg Parkinson's Disease Chronic, stable. Continue carbidopa levodopa HTN Continue Lopressor Hypothyroidism Continue levothyroxine RLS Continue home medications Anemia of chronic disease Hgb stable. Monitor Asthma No signs acute exacerbation. Continue home inhalers H/O Gastric bypass with chronic constipation, narcotics Bowel regimen TAA Declined surgery in the past GERD Continue PPI H/O Edenilson-Danlos syndrome stable BRANDIE H/O Intolerance to CPAP DVT Px: Coumadin Code Status: Full code PCP: Kaylah Agee Disposition: PT/OT eval Admission and Anticipated Discharge Date Admission Date: July 22, 2022 Subjective Pt was seen and examined for follow up shoulder pain. Lying in bed with no acute distress watching TV. She said last night she was having pain in right hip. Will ask case management to call the facility to see if someone can bring buprenorphine patch patch for her from the facility since on pharmacy does not carry it. The facility did not change her patch on Saturday because nurse confirmed the patch was placed on 07/14. patient said left shoulder pain improved. denies any chest pain, palpitation, dizziness and SOB Review of Systems Review of Systems: All systems reviewed & are unremarkable except as noted in Subjective Physical Exam Physical Exam: General- No acute distress Head- atraumatic Eyes- PERRL, EOMI, ENT- oropharynx clear Neck- supple, no JVD Lungs- clear to auscultation Heart- regular rhythm; no murmur Abdomen- normal bowel sounds, soft, nontender Extremities- no calf tenderness, +edema, + R shoulder dislocated (chronic) with lidocaine patch in place Neuro- alert, oriented x 3; PERRL, EOMI; no facial palsy; no dysarthria Skin- warm & dry Results & Data Results & Data ([facility]) Vital Signs (Past 12 Hours) Vital Signs Temp Pulse Pulse Resp BP Pulse Ox O2 Del Method 07/24/22 15:21 56 L 07/24/22 15:12 36.5 C 59 L 20 93/62 L 97 Room Air 07/24/22 11:12 36.5 C 56 L 16 115/79 94 Room Air 07/24/22 07:59 Room Air 07/24/22 07:24 69 (1) Chronic pain Chronic pain type: chronic pain syndrome Qualified Code(s): G89.4 - Chronic pain syndrome (2) Shoulder pain Chronicity: acute Laterality: right Qualified Code(s): M25.511 - Pain in right shoulder
[2022-07-24] MEDS: MONTELUKAST SODIUM 10 MG TABLET PO SCH (20:35)
[2022-07-24] MEDS: MIRTAZAPINE TAB 15 MG TAB PO SCH (20:35)
[2022-07-24] MEDS: rOPINIRole HCL 2 MG TABLET PO SCH (20:38)
[2022-07-25] MEDS: oxyCODONE/ACETAMINOPHEN 5mg/325mg TAB PO PRN ×4 (01:02→23:58)
[2022-07-25] MEDS: hydrOXYzine HCl 25 MG TAB PO PRN (01:47)
[2022-07-25 02:12] LABS: Partial Thromboplastin Ratio 3.1
[2022-07-25] MEDS ORDERED: ACETAMINOPHEN 1,000 MG/100 ML VIAL IV STA (05:43)
[2022-07-25] MEDS: LEVOTHYROXINE SODIUM 50 MCG TABLET PO SCH (05:44)
[2022-07-25 06:13] LABS: Hematocrit (blood only) 30.2 % (34.1-44.9); Hemoglobin 9.6 g/dl (12.0-16.0); Mean Corpuscular Hemoglobin 27.4 pg (25.0-34.0); Mean Corpuscular Hgb Conc 31.8 g/dL (32.0-36.0); Platelet Count 245 K/uL (130-400); RDW Coefficient of Variation 16.5 % (11.5-14.5); RDW Standard Deviation 52.2 fL (36.4-46.3); Red Blood Count 3.51 M/uL (3.93-5.22)
[2022-07-25 06:32] LABS: Calcium 9.4 mg/dl (8.5-10.1); Potassium 4.1 mmol/L (3.5-5.1)
[2022-07-25 06:38] LABS: BUN Creatinine Ratio 18.8 (10-20); Creatinine Clr Calc Pharmacy 65.5 ml/min; Est GFR (African American) 100.8 ml/min
[2022-07-25 06:53] LABS: INR 1.4 (0.9-1.1); Prothrombin Time 14.4 Seconds (9.0-12.0)
[2022-07-25] MEDS: rOPINIRole HCL 1 MG TABLET PO SCH ×3 (07:04→16:19)
[2022-07-25] MEDS: THIAMINE HCL 100 MG TAB PO SCH ×2 (07:44→20:44)
[2022-07-25] MEDS: METOPROLOL TARTRATE 25 MG TAB PO SCH (07:45)
[2022-07-25] MEDS: CARBIDOPA/LEVODOPA 25/100MG TAB PO SCH ×4 (07:45→20:40)
[2022-07-25] MEDS: FUROSEMIDE 40 MG TAB PO SCH (07:45)
[2022-07-25] MEDS: OMEGA-3 (PURIFIED FISH OIL) 1 GM CAP PO SCH (07:46)
[2022-07-25] MEDS: DOCUSATE SODIUM/SENNA 50/8.6MG TAB PO SCH ×2 (07:46→20:41)
[2022-07-25] MEDS: CEROVITE ADV FORMULA TAB PO SCH ×2 (07:46→20:42)
[2022-07-25] MEDS: PANTOprazole 40 MG TAB PO SCH (07:46)
[2022-07-25] MEDS: ATORVASTATIN 20 MG TAB PO SCH (07:47)
[2022-07-25] MEDS: ADVANCED PROBIOTIC 1250 MG CAPSULE PO SCH (07:47)
[2022-07-25] MEDS: LIDOCAINE 5% 1 PATCH TD SCH (07:47)
[2022-07-25] MEDS: POTASSIUM CHLORIDE PWD 20 MEQ PACK PO SCH ×2 (07:48→20:44)
[2022-07-25] MEDS: FLUTICASONE/VILANTEROL 100/25MCG 14 PUFFS/INHALER INH SCH (07:49)
[2022-07-25] MEDS: FLUTICASONE PROPIONATE NA SPR 16 GM BTL NAE SCH (07:49)
[2022-07-25] MEDS ORDERED: ERGOCALCIFEROL 50,000 UNITS 1250 MCG CAP PO SCH (09:00)
[2022-07-25] MEDS: ACETAMINOPHEN 325 MG TAB PO PRN (12:04)
[2022-07-25] MEDS: WARFARIN SOD 5 MG TAB PO SCH (16:20)
[2022-07-25] MEDS: HEPARIN SODIUM/DEXTROSE 25,000 UNITS/500 ML BAG IV SCH (16:24)
--- NOTE | 2022-07-25 16:28 | Hospitalist Progress Note ---
Date of Service July 25, 2022 Assessment & Plan (1) Bilateral leg pain: (2) Leg swelling: (3) Ambulatory dysfunction: (4) Shoulder pain: (5) Dislocation of right shoulder joint: (6) Chronic pain: (7) Hypokalemia: (8) Generalized weakness: (9) Edenilson-Danlos syndrome: (10) ISAC (generalized anxiety disorder): (11) Pulmonary embolism: (12) Protein C deficiency: (13) Obesity: (14) Sleep apnea: Plan This is a 72 yo F with a PMH of chronic diastolic heart failure (EF 60 to 65%, TTE 2020), thoracic aortic aneurysm, hypercoagulopathy (hx PE/DVT/protein C deficiency on Coumadin), hypertension, PSVT, PVD, BRANDIE (CPAP intolerance), Edenilson-Danlos syndrome, bronchial asthma, chronic anemia (baseline hemoglobin 10-11 ), Parkinson's disease, mood disorder, hypothyroidism, fibromyalgia on buprenorphine patch, restless leg syndrome, ambulatory dysfunction, R shoulder pain secondary to rotator cuff tear and other medical problems listed below who presents from [facility] via EMS due to increased pain in R shoulder and BLE pain and swelling. BLE edema Chronic issue, h/o diastolic HF and underlying chronic venous insufficiency Recurrent infections in past but do not appear infected today - afebrile, no white count, normal procal Venous doppler showed no evidence of DVT Continue lasix 40mg PO daily. Encouraged pt to keep Legs elevated Anterior subluxation of the R humeral head Acute to subacuteHill-Sachs impaction fracture and bony Bankart H/O recurrent anterior right shoulder dislocation H/O R rotator cuff tear, Edenilson-Danlos Syndrome Shoulder XR with 1. No acute fracture is identified. 2. There is anterior subluxation of the humeral head without clear dislocation. 3. A Hill-Sachs lesion is again noted in the humeral head Planned for surgery as outpatient at [facility] but not medically optimized Consider orthopedic consult, pain mgmt if no improvement Asked case management to call the facility to see if someone can bring the buprenorphine patch since it was not changed on Saturday. Continue PRN percocet, lidocaine patch, ice to affected area H/O Ambulatory dysfunction H/O Parkinson's disease/RLS Fall precautions PT/OT Right hip pain CT shows mild osteoarthritis without acute fracture or dislocation. Continue Percocet and lidocaine patch H.o fibromyalgia, chronic pain on buprenorphine patch, PRN Percocet for breakthrough pain, added lidocaine patch Also on Skelaxin At high risk for polypharmacy given extensive med list Hypercoagulopathy H/O PE, DVT, protein C deficiency INR now subtherapeutic at 1.4 Coumadin increased to 5 mg Continue IV heparin drip for now while INR subtherapeutic Monitor INR daily Chronic diastolic heart failure: BNP 220, BLE edema (chronic), CXR with cardiomegaly with no acute cardiopulmonary abnormality identified Continue PO lasix 40mg Parkinson's Disease Chronic, stable. Continue carbidopa levodopa HTN Continue Lopressor Hypothyroidism Continue levothyroxine RLS Continue home medications Anemia of chronic disease Hgb stable. Monitor Asthma No signs acute exacerbation. Continue home inhalers H/O Gastric bypass with chronic constipation, narcotics Bowel regimen TAA Declined surgery in the past GERD Continue PPI H/O Edenilson-Danlos syndrome stable BRANDIE H/O Intolerance to CPAP DVT Px: Coumadin Code Status: Full code PCP: Kaylah Agee Disposition: PT/OT eval Admission and Anticipated Discharge Date Admission Date: July 22, 2022 Subjective Pt seen in follow up of shoulder pain, LE edema. Sitting up at the edge of the bed, in NAD. LE edema much improved. Pt feels overall weak and has gen. pain as she does not have the buprenorphine patch on. Contacted case management to call the facility to see if someone can bring buprenorphine patch for her from the facility since our pharmacy does not carry it. The facility did not change her patch on Saturday because nurse confirmed the patch was placed on 07/14. denies any chest pain, palpitation, dizziness and SOB Review of Systems Review of Systems: All systems reviewed & are unremarkable except as noted in Subjective Physical Exam Physical Exam: General- No acute distress Head- atraumatic Eyes- PERRL, EOMI, ENT- oropharynx clear Neck- supple, no JVD Lungs- clear to auscultation Heart- regular rhythm; no murmur Abdomen- normal bowel sounds, soft, nontender Extremities- no calf tenderness, +min edema (much improved), + R shoulder dislocated (chronic) with lidocaine patch in place Neuro- alert, oriented x 3; PERRL, EOMI; no facial palsy; no dysarthria Skin- warm & dry Results & Data Results & Data ([facility]) Vital Signs (Past 12 Hours) Vital Signs Temp Pulse Pulse Resp BP Pulse Ox O2 Del Method 07/25/22 15:29 64 07/25/22 14:48 36.7 C 63 16 89/51 L 96 Room Air 07/25/22 11:29 36.4 C L 58 L 18 92/61 L 100 Room Air 07/25/22 08:30 73 07/25/22 08:00 36.7 C 77 20 113/71 97 Room Air Laboratory Results 07/25/22 07/25/22 07/25/22 Range/Units 05:41 05:41 05:41 WBC 6.40 (4.8-10.8) K/ul RBC 3.51 L (3.93-5.22) M/uL Hgb 9.6 L (12.0-16.0) g/dl Hct 30.2 L (34.1-44.9) % MCV 86.0 (80.0-100.0) fL MCH 27.4 (25.0-34.0) pg MCHC 31.8 L (32.0-36.0) g/dL RDW Std Deviation 52.2 H (36.4-46.3) fL RDW Coeff of Neftaly 16.5 H (11.5-14.5) % Plt Count 245 (130-400) K/uL MPV 11.0 (9.4-12.3) fL PT 14.4 H INR 1.4 H APTT 55.0 H* (21.0-31.0) Seconds PTT Ratio 2.0 Sodium 138 (136-145) mmol/L Potassium 4.1 (3.5-5.1) mmol/L Chloride 104 (98-107) mmol/L Carbon Dioxide 29 (21-32) mmol/L Anion Gap 5 (3-11) BUN 13 (6-23) mg/dl Creatinine 0.69 (0.6-1.2) mg/dl Est Cr Clr Drug Dosing 65.5 ml/min Est GFR ( Amer) 100.8 ml/min Est GFR (Non-Af Amer) 87.0 ml/min BUN/Creatinine Ratio 18.8 (10-20) Glucose 82 (70-99(Fasting)) mg/dl POC Glucose (70-99) mg/dl Calcium 9.4 (8.5-10.1) mg/dl 07/25/22 07/25/22 07/24/22 Range/Units 05:41 00:45 20:32 WBC (4.8-10.8) K/ul RBC (3.93-5.22) M/uL Hgb (12.0-16.0) g/dl Hct (34.1-44.9) % MCV (80.0-100.0) fL MCH (25.0-34.0) pg MCHC (32.0-36.0) g/dL RDW Std Deviation (36.4-46.3) fL RDW Coeff of Neftaly (11.5-14.5) % Plt Count (130-400) K/uL MPV (9.4-12.3) fL PT Cancelled INR Cancelled APTT 86.0 H* (21.0-31.0) Seconds PTT Ratio 3.1 Sodium (136-145) mmol/L Potassium (3.5-5.1) mmol/L Chloride (98-107) mmol/L Carbon Dioxide (21-32) mmol/L Anion Gap (3-11) BUN (6-23) mg/dl Creatinine (0.6-1.2) mg/dl Est Cr Clr Drug Dosing ml/min Est GFR ( Amer) ml/min Est GFR (Non-Af Amer) ml/min BUN/Creatinine Ratio (10-20) Glucose (70-99(Fasting)) mg/dl POC Glucose 163 H (70-99) mg/dl Calcium (8.5-10.1) mg/dl 07/24/22 Range/Units 15:48 WBC (4.8-10.8) K/ul RBC (3.93-5.22) M/uL Hgb (12.0-16.0) g/dl Hct (34.1-44.9) % MCV (80.0-100.0) fL MCH (25.0-34.0) pg MCHC (32.0-36.0) g/dL RDW Std Deviation (36.4-46.3) fL RDW Coeff of Neftaly (11.5-14.5) % Plt Count (130-400) K/uL MPV (9.4-12.3) fL PT INR APTT 105.5 H* (21.0-31.0) Seconds PTT Ratio 3.8 Sodium (136-145) mmol/L Potassium (3.5-5.1) mmol/L Chloride (98-107) mmol/L Carbon Dioxide (21-32) mmol/L Anion Gap (3-11) BUN (6-23) mg/dl Creatinine (0.6-1.2) mg/dl Est Cr Clr Drug Dosing ml/min Est GFR ( Amer) ml/min Est GFR (Non-Af Amer) ml/min BUN/Creatinine Ratio (10-20) Glucose (70-99(Fasting)) mg/dl POC Glucose (70-99) mg/dl Calcium (8.5-10.1) mg/dl Medications Administered Current Inpatient Medications Acetaminophen (Acetaminophen 325 Mg Tab) 650 mg PO Q4H PRN PRN Reason: Pain or Fever Stop: 08/21/22 18:41 Last Admin: 07/25/22 12:04 Dose: 650 mg Albuterol (Albuterol Hfa 8 Gm Inhaler) 2 puffs INH Q6 PRN PRN Reason: Shortness Of Breath Or Wheezing Stop: 08/21/22 19:32 Albuterol (Albut/Ipratrop 3mg/0.5mg Neb 3 Ml Vial) 3 ml INH QID PRN; Protocol PRN Reason: Shortness Of Breath Stop: 08/21/22 19:32 Atorvastatin Calcium (Atorvastatin 20 Mg Tab) 20 mg PO QAM [facility] Stop: 08/22/22 08:59 Last Admin: 07/25/22 07:47 Dose: 20 mg Carbidopa/Levodopa (Carbidopa/Levodopa 25/100mg Tab) 1 tab PO QID [facility] Stop: 08/21/22 20:59 Last Admin: 07/25/22 16:20 Dose: 1 tab Diclofenac Sodium (Diclofenac Sod 1% Gel 100 Gm Tube) 2 gm EXT QID PRN; Protocol PRN Reason: Pain Stop: 08/21/22 19:32 Ergocalciferol (Ergocalciferol 50,000 Units 1250 Mcg Cap) 50,000 units PO We@0900 [facility] Stop: 08/24/22 08:59 Last Admin: 07/25/22 07:46 Dose: 50,000 units Fish Oil ([place]-3 (Purified Fish Oil) 1 Gm Cap) 1 gm PO DAILY ASHUTOSH Stop: 08/22/22 08:59 Last Admin: 07/25/22 07:46 Dose: 1 gm Fluticasone Propionate (Fluticasone Propionate Na Spr 16 Gm Btl) 2 sprays ELYSE DAILY [facility] Stop: 08/22/22 08:59 Last Admin: 07/25/22 07:49 Dose: 2 sprays Fluticasone/Vilanterol (Fluticasone/Vilanterol 100/25mcg 14 Puffs/Inhaler) 1 puffs INH DAILY ASHUTOS[facility] Stop: 08/22/22 08:59 Last Admin: 07/25/22 07:49 Dose: 1 puffs Furosemide (Furosemide 40 Mg Tab) 40 mg PO DAILY A[facility]OSH Stop: 08/22/22 08:59 Last Admin: 07/25/22 07:45 Dose: 40 mg Hydroxyzine HCl (Hydroxyzine Hcl 25 Mg Tab) 25 mg PO Q6 PRN PRN Reason: .ANX/ITCH Stop: 08/21/22 19:32 Last Admin: 07/25/22 01:47 Dose: 25 mg Heparin Sodium/Dextrose (Heparin Sodium/Dextrose) 25,000 units in 500 mls @ 16 mls/hr IV .Q24H ASHUTOSH; Protocol Stop: 08/23/22 09:44 Last Admin: 07/25/22 16:24 Dose: 800 units/hr, 16 mls/hr Lactobacillus Acidophilus (Advanced Probiotic 1250 Mg Capsule) 2 cap PO DAILY ASHUTOSH Stop: 08/22/22 08:59 Last Admin: 07/25/22 07:47 Dose: 2 cap Levothyroxine Sodium (Levothyroxine Sodium 50 Mcg Tablet) 50 mcg PO DAILYBB A[facility]UTOS[facility] Stop: 08/22/22 08:59 Last Admin: 07/25/22 05:44 Dose: 50 mcg Lidocaine (Lidocaine 5% 1 Patch) 2 patch TD QAM [facility]OS[facility] Stop: 08/24/22 08:59 Last Admin: 07/25/22 07:47 Dose: 2 patch Meclizine HCl (Meclizine Hcl 25 Mg Tab) 25 mg PO TID PRN PRN Reason: DIZZY Stop: 08/21/22 19:38 Metoprolol Tartrate (Metoprolol Tartrate 25 Mg Tab) 12.5 mg PO DAILY A[facility]OSH Stop: 08/22/22 08:59 Last Admin: 07/25/22 07:45 Dose: 12.5 mg Mirtazapine (Mirtazapine Tab 15 Mg Tab) 15 mg PO HS [facility] Stop: 08/21/22 20:59 Last Admin: 07/24/22 20:35 Dose: 15 mg Miscellaneous (Remove Lidoderm Patch) 1 each N/A DAILY@2100 [facility] Stop: 08/21/22 20:59 Last Admin: 07/24/22 20:38 Dose: 1 each Montelukast Sodium (Montelukast Sodium 10 Mg Tablet) 10 mg PO HS [facility] Stop: 08/21/22 20:59 Last Admin: 07/24/22 20:35 Dose: 10 mg Multivitamins/Minerals (Cerovite Adv Formula Tab) 1 tab PO BID [facility] Stop: 08/21/22 20:59 Last Admin: 07/25/22 07:46 Dose: 1 tab Ondansetron HCl (Ondansetron Inj 2 Mg/Ml 2 Ml Vial) 4 mg IV Q6H PRN PRN Reason: Nausea Stop: 08/21/22 18:41 Oxycodone/Acetaminophen (Oxycodone/Acetaminophen 5mg/325mg Tab) 1 tab PO Q6H PRN PRN Reason: severe breakthrough pain Stop: 08/07/22 00:59 Last Admin: 07/25/22 16:20 Dose: 1 tab Pantoprazole Sodium (Pantoprazole 40 Mg Tab) 40 mg PO DAILY [facility]OS[facility] Stop: 08/22/22 08:59 Last Admin: 07/25/22 07:46 Dose: 40 mg Polyethylene Glycol (Polyethylene (Miralax) 17 Gm Pack) 17 gm PO DAILY PRN PRN Reason: Constipation Stop: 08/21/22 18:41 Potassium Chloride (Potassium Chloride Pwd 20 Meq Pack) 40 meq PO QAM [facility] Stop: 08/22/22 08:59 Last Admin: 07/25/22 07:48 Dose: 40 meq Potassium Chloride (Potassium Chloride Pwd 20 Meq Pack) 20 meq PO QPM [facility] Stop: 08/21/22 20:59 Last Admin: 07/24/22 20:37 Dose: 20 meq Ropinirole HCl (Ropinirole Hcl 1 Mg Tablet) 1 mg PO 0800,1200,1700 [facility] Stop: 08/22/22 07:59 Last Admin: 07/25/22 16:19 Dose: 1 mg Ropinirole HCl (Ropinirole Hcl 2 Mg Tablet) 2 mg PO TODAY@1999 [facility] Stop: 08/21/22 20:59 Last Admin: 07/24/22 20:38 Dose: 2 mg Senna/Docusate Sodium (Docusate Sodium/Senna 50/8.6mg Tab) 1 tab PO BID [facility] Stop: 08/21/22 20:59 Last Admin: 07/25/22 07:46 Dose: 1 tab Thiamine HCl (Thiamine Hcl 100 Mg Tab) 100 mg PO BID [facility] Stop: 08/21/22 20:59 Last Admin: 07/25/22 07:44 Dose: 100 mg Warfarin Sodium (Warfarin Sod 5 Mg Tab) 5 mg PO DAILY@1600 [facility] Stop: 08/23/22 15:59 Last Admin: 07/25/22 16:20 Dose: 5 mg (1) Chronic pain Chronic pain type: chronic pain syndrome Qualified Code(s): G89.4 - Chronic pain syndrome (2) Shoulder pain Chronicity: acute Laterality: right Qualified Code(s): M25.511 - Pain in right shoulder
[2022-07-25] MEDS: rOPINIRole HCL 2 MG TABLET PO SCH (20:40)
[2022-07-25] MEDS: MIRTAZAPINE TAB 15 MG TAB PO SCH (20:41)
[2022-07-25] MEDS: MONTELUKAST SODIUM 10 MG TABLET PO SCH (20:42)
[2022-07-26] MEDS: hydrOXYzine HCl 25 MG TAB PO PRN (03:41)
[2022-07-26] MEDS ORDERED: HYDROmorphone INJ 0.5 MG/0.5 ML SYR IV STA ×2 (04:56→14:57)
[2022-07-26] MEDS: LEVOTHYROXINE SODIUM 50 MCG TABLET PO SCH (06:26)
[2022-07-26] MEDS: DOCUSATE SODIUM/SENNA 50/8.6MG TAB PO SCH ×2 (07:56→20:12)
[2022-07-26] MEDS: oxyCODONE/ACETAMINOPHEN 5mg/325mg TAB PO PRN ×2 (07:56→17:27)
[2022-07-26] MEDS: CEROVITE ADV FORMULA TAB PO SCH ×2 (07:57→20:13)
[2022-07-26] MEDS: PANTOprazole 40 MG TAB PO SCH (07:57)
[2022-07-26] MEDS: CARBIDOPA/LEVODOPA 25/100MG TAB PO SCH ×4 (07:57→20:10)
[2022-07-26] MEDS: rOPINIRole HCL 1 MG TABLET PO SCH ×3 (07:57→16:36)
[2022-07-26] MEDS: OMEGA-3 (PURIFIED FISH OIL) 1 GM CAP PO SCH (07:57)
[2022-07-26] MEDS: ADVANCED PROBIOTIC 1250 MG CAPSULE PO SCH (07:58)
[2022-07-26] MEDS: METOPROLOL TARTRATE 25 MG TAB PO SCH (07:58)
[2022-07-26] MEDS: ATORVASTATIN 20 MG TAB PO SCH (07:58)
[2022-07-26] MEDS: FUROSEMIDE 40 MG TAB PO SCH (07:58)
[2022-07-26] MEDS: POTASSIUM CHLORIDE PWD 20 MEQ PACK PO SCH ×2 (07:58→20:10)
[2022-07-26] MEDS: THIAMINE HCL 100 MG TAB PO SCH ×2 (07:58→20:11)
[2022-07-26] MEDS: LIDOCAINE 5% 1 PATCH TD SCH (07:59)
[2022-07-26] MEDS: FLUTICASONE/VILANTEROL 100/25MCG 14 PUFFS/INHALER INH SCH (08:00)
[2022-07-26] MEDS: FLUTICASONE PROPIONATE NA SPR 16 GM BTL NAE SCH (08:00)
[2022-07-26 08:14] LABS: Basophils # (auto) 0.04 K/uL (0-0.2); Basophils % (auto) 0.6 %; Eosinophils # (auto) 0.08 K/uL (0-0.50); Eosinophils % (auto) 1.2 %; Hematocrit (blood only) 27.5 % (34.1-44.9); Hemoglobin 8.9 g/dl (12.0-16.0); Immature Granulocytes # (auto) 0.03 K/uL (0.00-0.02); Immature Granulocytes % (auto) 0.4 %; Lymphocytes % (auto) 15.9 %; Mean Corpuscular Hemoglobin 28.1 pg (25.0-34.0); Mean Corpuscular Hgb Conc 32.4 g/dL (32.0-36.0); Mean Corpuscular Volume 86.8 fL (80.0-100.0); Mean Platelet Volume 11.2 fL (9.4-12.3); Monocytes # (auto) 1.01 K/uL (0.24-0.82); Monocytes % (auto) 14.6 %; Neutrophils # (auto) 4.64 K/uL (1.4-6.5); Neutrophils % (auto) 67.3 %; Platelet Count 227 K/uL (130-400); RDW Coefficient of Variation 16.2 % (11.5-14.5); Red Blood Count 3.17 M/uL (3.93-5.22)
[2022-07-26 08:52] LABS: INR 1.7 (0.9-1.1); Partial Thromboplastin Ratio 2.4; Prothrombin Time 17.9 Seconds (9.0-12.0)
[2022-07-26 09:00] LABS: Partial Thromboplastin Time 65.8 Seconds (21.0-31.0)
[2022-07-26 09:35] LABS: BUN Creatinine Ratio 21.9 (10-20); Calcium 8.9 mg/dl (8.5-10.1); Creatinine Clr Calc Pharmacy 70.6 ml/min; Est GFR (African American) 103.3 ml/min; Est GFR (Non-African American) 89.2 ml/min; Magnesium 1.8 mg/dl (1.7-2.4); Phosphorus 3.9 mg/dl (2.5-4.9); Potassium 3.5 mmol/L (3.5-5.1)
[2022-07-26] MEDS: HEPARIN SODIUM/DEXTROSE 25,000 UNITS/500 ML BAG IV SCH (11:14)
--- NOTE | 2022-07-26 13:44 | Hospitalist Progress Note ---
Date of Service July 26, 2022 Assessment & Plan (1) Bilateral leg pain: (2) Leg swelling: (3) Ambulatory dysfunction: (4) Shoulder pain: (5) Dislocation of right shoulder joint: (6) Chronic pain: (7) Hypokalemia: (8) Generalized weakness: (9) Edenilson-Danlos syndrome: (10) ISAC (generalized anxiety disorder): (11) Pulmonary embolism: (12) Protein C deficiency: (13) Obesity: (14) Sleep apnea: Plan This is a 72 yo F with a PMH of chronic diastolic heart failure (EF 60 to 65%, TTE 2020), thoracic aortic aneurysm, hypercoagulopathy (hx PE/DVT/protein C deficiency on Coumadin), hypertension, PSVT, PVD, BRANDIE (CPAP intolerance), Edenilson-Danlos syndrome, bronchial asthma, chronic anemia (baseline hemoglobin 10-11 ), Parkinson's disease, mood disorder, hypothyroidism, fibromyalgia on buprenorphine patch, restless leg syndrome, ambulatory dysfunction, R shoulder pain secondary to rotator cuff tear and other medical problems listed below who presents from [facility] via EMS due to increased pain in R shoulder and BLE pain and swelling. BLE edema Chronic issue, h/o diastolic HF and underlying chronic venous insufficiency Recurrent infections in past but do not appear infected today - afebrile, no white count, normal procal Venous doppler showed no evidence of DVT Continue lasix 40mg PO daily. Encouraged pt to keep Legs elevated Anterior subluxation of the R humeral head Acute to subacuteHill-Sachs impaction fracture and bony Bankart H/O recurrent anterior right shoulder dislocation H/O R rotator cuff tear, Edenilsno-Danlos Syndrome Shoulder XR with 1. No acute fracture is identified. 2. There is anterior subluxation of the humeral head without clear dislocation. 3. A Hill-Sachs lesion is again noted in the humeral head Planned for surgery as outpatient at [facility] but not medically optimized Consider orthopedic consult, pain mgmt if no improvement Asked case management to call the facility to see if someone can bring the buprenorphine patch since it was not changed on Saturday. Plan to bring in today Continue PRN percocet, lidocaine patch, ice to affected area H/O Ambulatory dysfunction H/O Parkinson's disease/RLS Fall precautions PT/OT Right hip pain CT shows mild osteoarthritis without acute fracture or dislocation. Continue Percocet and lidocaine patch H.o fibromyalgia, chronic pain on buprenorphine patch, PRN Percocet for breakthrough pain, added lidocaine patch Also on Skelaxin At high risk for polypharmacy given extensive med list Hypercoagulopathy H/O PE, DVT, protein C deficiency INR now subtherapeutic at 1.4 Coumadin increased to 5 mg Continue IV heparin drip for now while INR subtherapeutic Monitor INR daily Chronic diastolic heart failure: BNP 220, BLE edema (chronic), CXR with cardiomegaly with no acute cardiopulmonary abnormality identified Continue PO lasix 40mg Parkinson's Disease Chronic, stable. Continue carbidopa levodopa HTN Continue Lopressor Hypothyroidism Continue levothyroxine RLS Continue home medications Anemia of chronic disease Hgb stable. Monitor Asthma No signs acute exacerbation. Continue home inhalers H/O Gastric bypass with chronic constipation, narcotics Bowel regimen TAA Declined surgery in the past GERD Continue PPI H/O Edenilson-Danlos syndrome stable BRANDIE H/O Intolerance to CPAP DVT Px: Coumadin, iv heparin Code Status: Full code PCP: Kaylah Agee Disposition: PT/OT eval Admission and Anticipated Discharge Date Admission Date: July 22, 2022 Subjective Pt seen in follow up of shoulder pain, LE edema. Sitting up in chair, in NAD. LE edema much improved. Pt feels overall weak and has gen. pain as she does not have the buprenorphine patch on. Also has more of left lower extremity pain. CM aware and in contact with the facility, buprenorphine patch to be brought to the hospital. denies any chest pain, palpitation, dizziness and SOB Worked with PT today, however could not work with them as well as last time, as she feels her pain is worse. Review of Systems Review of Systems: All systems reviewed & are unremarkable except as noted in Subjective Physical Exam Physical Exam: General- No acute distress Head- atraumatic Eyes- PERRL, EOMI, ENT- oropharynx clear Neck- supple, no JVD Lungs- clear to auscultation Heart- regular rhythm; no murmur Abdomen- normal bowel sounds, soft, nontender Extremities- no calf tenderness, +min edema (much improved), + R shoulder dislocated (chronic) with lidocaine patch in place Neuro- alert, oriented x 3; PERRL, EOMI; no facial palsy; no dysarthria Skin- warm & dry Results & Data Results & Data ([facility]) Vital Signs (Past 12 Hours) Vital Signs Temp Pulse Pulse Resp BP Pulse Ox O2 Del Method 07/26/22 11:15 36.8 C 64 19 86/55 L 99 Room Air 07/26/22 10:41 74 07/26/22 07:56 36.8 C 80 18 88/53 L 93 Room Air 07/26/22 03:30 37 C 60 18 107/66 97 Room Air Laboratory Results 07/26/22 07/26/22 07/26/22 Range/Units 07:54 07:54 07:54 WBC 6.90 (4.8-10.8) K/ul RBC 3.17 L (3.93-5.22) M/uL Hgb 8.9 L (12.0-16.0) g/dl Hct 27.5 L (34.1-44.9) % MCV 86.8 (80.0-100.0) fL MCH 28.1 (25.0-34.0) pg MCHC 32.4 (32.0-36.0) g/dL RDW Std Deviation 51.0 H (36.4-46.3) fL RDW Coeff of Neftaly 16.2 H (11.5-14.5) % Plt Count 227 (130-400) K/uL MPV 11.2 (9.4-12.3) fL Immature Gran % (Auto) 0.4 % Neut % (Auto) 67.3 % Lymph % (Auto) 15.9 % Rankin % (Auto) 14.6 % Eos % (Auto) 1.2 % Baso % (Auto) 0.6 % Neut # (Auto) 4.64 (1.4-6.5) K/uL Lymph # (Auto) 1.10 L (1.2-3.4) K/uL Rankin # (Auto) 1.01 H (0.24-0.82) K/uL Eos # (Auto) 0.08 (0-0.50) K/uL Baso # (Auto) 0.04 (0-0.2) K/uL Immature Gran # (Auto) 0.03 H (0.00-0.02) K/uL PT 17.9 H (9.0-12.0) Seconds INR 1.7 H (0.9-1.1) APTT 65.8 H* (21.0-31.0) Seconds PTT Ratio 2.4 Sodium 137 (136-145) mmol/L Potassium 3.5 (3.5-5.1) mmol/L Chloride 103 (98-107) mmol/L Carbon Dioxide 28 (21-32) mmol/L Anion Gap 6 (3-11) BUN 14 (6-23) mg/dl Creatinine 0.64 (0.6-1.2) mg/dl Est Cr Clr Drug Dosing 70.6 ml/min Est GFR ( Amer) 103.3 ml/min Est GFR (Non-Af Amer) 89.2 ml/min BUN/Creatinine Ratio 21.9 H (10-20) Glucose 93 (70-99(Fasting)) mg/dl Calcium 8.9 (8.5-10.1) mg/dl Phosphorus 3.9 (2.5-4.9) mg/dl Magnesium 1.8 (1.7-2.4) mg/dl Medications Administered Current Inpatient Medications Acetaminophen (Acetaminophen 325 Mg Tab) 650 mg PO Q4H PRN PRN Reason: Pain or Fever Stop: 08/21/22 18:41 Last Admin: 07/25/22 12:04 Dose: 650 mg Albuterol (Albuterol Hfa 8 Gm Inhaler) 2 puffs INH Q6 PRN PRN Reason: Shortness Of Breath Or Wheezing Stop: 08/21/22 19:32 Albuterol (Albut/Ipratrop 3mg/0.5mg Neb 3 Ml Vial) 3 ml INH QID PRN; Protocol PRN Reason: Shortness Of Breath Stop: 08/21/22 19:32 Atorvastatin Calcium (Atorvastatin 20 Mg Tab) 20 mg PO QAM [facility] Stop: 08/22/22 08:59 Last Admin: 07/26/22 07:58 Dose: 20 mg Carbidopa/Levodopa (Carbidopa/Levodopa 25/100mg Tab) 1 tab PO QID [facility] Stop: 08/21/22 20:59 Last Admin: 07/26/22 12:13 Dose: 1 tab Diclofenac Sodium (Diclofenac Sod 1% Gel 100 Gm Tube) 2 gm EXT QID PRN; Protocol PRN Reason: Pain Stop: 08/21/22 19:32 Ergocalciferol (Ergocalciferol 50,000 Units 1250 Mcg Cap) 50,000 units PO We@0900 [facility] Stop: 08/24/22 08:59 Last Admin: 07/25/22 07:46 Dose: 50,000 units Fish Oil ([place]-3 (Purified Fish Oil) 1 Gm Cap) 1 gm PO DAILY [facility] Stop: 08/22/22 08:59 Last Admin: 07/26/22 07:57 Dose: 1 gm Fluticasone Propionate (Fluticasone Propionate Na Spr 16 Gm Btl) 2 sprays ELYSE DAILY [facility] Stop: 08/22/22 08:59 Last Admin: 07/26/22 08:00 Dose: 2 sprays Fluticasone/Vilanterol (Fluticasone/Vilanterol 100/25mcg 14 Puffs/Inhaler) 1 puffs INH DAILY [facility] Stop: 08/22/22 08:59 Last Admin: 07/26/22 08:00 Dose: 1 puffs Furosemide (Furosemide 40 Mg Tab) 40 mg PO DAILY [facility] Stop: 08/22/22 08:59 Last Admin: 07/26/22 07:58 Dose: 40 mg Hydroxyzine HCl (Hydroxyzine Hcl 25 Mg Tab) 25 mg PO Q6 PRN PRN Reason: .ANX/ITCH Stop: 08/21/22 19:32 Last Admin: 07/26/22 03:41 Dose: 25 mg Heparin Sodium/Dextrose (Heparin Sodium/Dextrose) 25,000 units in 500 mls @ 16 mls/hr IV .Q24H [facility]; Protocol Stop: 08/23/22 09:44 Last Admin: 07/26/22 11:14 Dose: Not Given Lactobacillus Acidophilus (Advanced Probiotic 1250 Mg Capsule) 2 cap PO DAILY [facility] Stop: 08/22/22 08:59 Last Admin: 07/26/22 07:58 Dose: 2 cap Levothyroxine Sodium (Levothyroxine Sodium 50 Mcg Tablet) 50 mcg PO DAILYBB [facility] Stop: 08/22/22 08:59 Last Admin: 07/26/22 06:26 Dose: 50 mcg Lidocaine (Lidocaine 5% 1 Patch) 2 patch TD QAM [facility] Stop: 08/24/22 08:59 Last Admin: 07/26/22 07:59 Dose: 2 patch Meclizine HCl (Meclizine Hcl 25 Mg Tab) 25 mg PO TID PRN PRN Reason: DIZZY Stop: 08/21/22 19:38 Metoprolol Tartrate (Metoprolol Tartrate 25 Mg Tab) 12.5 mg PO DAILY [facility] Stop: 08/22/22 08:59 Last Admin: 07/26/22 07:58 Dose: 12.5 mg Mirtazapine (Mirtazapine Tab 15 Mg Tab) 15 mg PO HS [facility] Stop: 08/21/22 20:59 Last Admin: 07/25/22 20:41 Dose: 15 mg Miscellaneous (Remove Lidoderm Patch) 1 each N/A DAILY@2100 [facility] Stop: 08/21/22 20:59 Last Admin: 07/25/22 20:44 Dose: 1 each Montelukast Sodium (Montelukast Sodium 10 Mg Tablet) 10 mg PO HS [facility] Stop: 08/21/22 20:59 Last Admin: 07/25/22 20:42 Dose: 10 mg Multivitamins/Minerals (Cerovite Adv Formula Tab) 1 tab PO BID [facility] Stop: 08/21/22 20:59 Last Admin: 07/26/22 07:57 Dose: 1 tab Ondansetron HCl (Ondansetron Inj 2 Mg/Ml 2 Ml Vial) 4 mg IV Q6H PRN PRN Reason: Nausea Stop: 08/21/22 18:41 Oxycodone/Acetaminophen (Oxycodone/Acetaminophen 5mg/325mg Tab) 1 tab PO Q6H P RN PRN Reason: severe breakthrough pain Stop: 08/07/22 00:59 Last Admin: 07/26/22 07:56 Dose: 1 tab Pantoprazole Sodium (Pantoprazole 40 Mg Tab) 40 mg PO DAILY [facility] Stop: 08/22/22 08:59 Last Admin: 07/26/22 07:57 Dose: 40 mg Polyethylene Glycol (Polyethylene (Miralax) 17 Gm Pack) 17 gm PO DAILY PRN PRN Reason: Constipation Stop: 08/21/22 18:41 Potassium Chloride (Potassium Chloride Pwd 20 Meq Pack) 40 meq PO QAM [facility] Stop: 08/22/22 08:59 Last Admin: 07/26/22 07:58 Dose: 40 meq Potassium Chloride (Potassium Chloride Pwd 20 Meq Pack) 20 meq PO QPM [facility] Stop: 08/21/22 20:59 Last Admin: 07/25/22 20:44 Dose: 20 meq Ropinirole HCl (Ropinirole Hcl 1 Mg Tablet) 1 mg PO 0800,1200,1700 [facility] Stop: 08/22/22 07:59 Last Admin: 07/26/22 12:13 Dose: 1 mg Ropinirole HCl (Ropinirole Hcl 2 Mg Tablet) 2 mg PO TODAY@2000 [facility] Stop: 08/21/22 20:59 Last Admin: 07/25/22 20:40 Dose: 2 mg Senna/Docusate Sodium (Docusate Sodium/Senna 50/8.6mg Tab) 1 tab PO BID [facility] Stop: 08/21/22 20:59 Last Admin: 07/26/22 07:56 Dose: 1 tab Thiamine HCl (Thiamine Hcl 100 Mg Tab) 100 mg PO BID [facility] Stop: 08/21/22 20:59 Last Admin: 07/26/22 07:58 Dose: 100 mg Warfarin Sodium (Warfarin Sod 5 Mg Tab) 5 mg PO DAILY@1600 [facility] Stop: 08/23/22 15:59 Last Admin: 07/25/22 16:20 Dose: 5 mg (1) Chronic pain Chronic pain type: chronic pain syndrome Qualified Code(s): G89.4 - Chronic pain syndrome (2) Shoulder pain Chronicity: acute Laterality: right Qualified Code(s): M25.511 - Pain in right shoulder
[2022-07-26] MEDS: WARFARIN SOD 5 MG TAB PO SCH (16:36)
[2022-07-26] MEDS ORDERED: POTASSIUM CHLORIDE PWD 20 MEQ PACK PO ONE (16:49)
[2022-07-26] MEDS ORDERED: TDSY TD SCH (17:00)
[2022-07-26] MEDS ORDERED: BUPRENORPHINE TD SCH (17:00)
[2022-07-26] MEDS: MONTELUKAST SODIUM 10 MG TABLET PO SCH (20:10)
[2022-07-26] MEDS: MIRTAZAPINE TAB 15 MG TAB PO SCH (20:11)
[2022-07-26] MEDS: rOPINIRole HCL 2 MG TABLET PO SCH (20:12)
[2022-07-27] MEDS: CHECK BUPRENORPHINE PATCH SCH ×3 (00:23→15:28)
[2022-07-27] MEDS: HEPARIN SODIUM/DEXTROSE 25,000 UNITS/500 ML BAG IV SCH (00:29)
[2022-07-27] MEDS: oxyCODONE/ACETAMINOPHEN 5mg/325mg TAB PO PRN ×2 (02:05→15:30)
[2022-07-27] MEDS: LEVOTHYROXINE SODIUM 50 MCG TABLET PO SCH (06:39)
[2022-07-27 07:34] LABS: INR 1.8 (0.9-1.1); Partial Thromboplastin Ratio 2.6
[2022-07-27 07:36] LABS: Partial Thromboplastin Time 71.8 Seconds (21.0-31.0)
[2022-07-27] MEDS: CARBIDOPA/LEVODOPA 25/100MG TAB PO SCH ×4 (08:34→20:57)
[2022-07-27] MEDS: ATORVASTATIN 20 MG TAB PO SCH (08:34)
[2022-07-27] MEDS: rOPINIRole HCL 1 MG TABLET PO SCH ×3 (08:34→16:47)
[2022-07-27] MEDS: DOCUSATE SODIUM/SENNA 50/8.6MG TAB PO SCH ×2 (08:34→20:58)
[2022-07-27] MEDS: METOPROLOL TARTRATE 25 MG TAB PO SCH (08:35)
[2022-07-27] MEDS: FUROSEMIDE 40 MG TAB PO SCH (08:35)
[2022-07-27] MEDS: POTASSIUM CHLORIDE PWD 20 MEQ PACK PO SCH ×2 (08:35→20:59)
[2022-07-27] MEDS: PANTOprazole 40 MG TAB PO SCH (08:35)
[2022-07-27] MEDS: CEROVITE ADV FORMULA TAB PO SCH ×2 (08:35→21:00)
[2022-07-27] MEDS: ADVANCED PROBIOTIC 1250 MG CAPSULE PO SCH (08:35)
[2022-07-27] MEDS: THIAMINE HCL 100 MG TAB PO SCH ×2 (08:35→21:00)
[2022-07-27] MEDS: LIDOCAINE 5% 1 PATCH TD SCH (08:36)
[2022-07-27] MEDS: OMEGA-3 (PURIFIED FISH OIL) 1 GM CAP PO SCH (08:36)
[2022-07-27] MEDS: FLUTICASONE PROPIONATE NA SPR 16 GM BTL NAE SCH (08:36)
[2022-07-27] MEDS: FLUTICASONE/VILANTEROL 100/25MCG 14 PUFFS/INHALER INH SCH (08:36)
--- NOTE | 2022-07-27 10:50 | Hospitalist Progress Note ---
Date of Service July 27, 2022 Assessment & Plan (1) Bilateral leg pain: (2) Leg swelling: (3) Ambulatory dysfunction: (4) Shoulder pain: (5) Dislocation of right shoulder joint: (6) Chronic pain: (7) Hypokalemia: (8) Generalized weakness: (9) Edenilson-Danlos syndrome: (10) ISAC (generalized anxiety disorder): (11) Pulmonary embolism: (12) Protein C deficiency: (13) Obesity: (14) Sleep apnea: Plan This is a 72 yo F with a PMH of chronic diastolic heart failure (EF 60 to 65%, TTE 2020), thoracic aortic aneurysm, hypercoagulopathy (hx PE/DVT/protein C deficiency on Coumadin), hypertension, PSVT, PVD, BRANDIE (CPAP intolerance), Edenilson-Danlos syndrome, bronchial asthma, chronic anemia (baseline hemoglobin 10-11 ), Parkinson's disease, mood disorder, hypothyroidism, fibromyalgia on buprenorphine patch, restless leg syndrome, ambulatory dysfunction, R shoulder pain secondary to rotator cuff tear and other medical problems listed below who presents from [facility] via EMS due to increased pain in R shoulder and BLE pain and swelling. BLE edema Chronic issue, h/o diastolic HF and underlying chronic venous insufficiency Recurrent infections in past but do not appear infected today - afebrile, no white count, normal procal Venous doppler showed no evidence of DVT Continue lasix 40mg PO daily. Encouraged pt to keep Legs elevated Leg pain Initially reported right lower extremity/right hip pain. CT was obtained by previous provider. CT shows mild osteoarthritis without acute fracture or dislocation. Now resolved. Now reports lower back pain radiating to left lower extremity, causing acute on chronic pain Reports that due to her left lower extremity pain she could not work with PT yesterday as well Buprenorphine patch was brought in the hospital yesterday (07/26) Continues to have some pain, as above We will obtain imaging of lumbar spine and left hip We will consult further with pain management Anterior subluxation of the R humeral head Acute to subacuteHill-Sachs impaction fracture and bony Bankart H/O recurrent anterior right shoulder dislocation H/O R rotator cuff tear, Edenilson-Danlos Syndrome Shoulder XR with 1. No acute fracture is identified. 2. There is anterior subluxation of the humeral head without clear dislocation. 3. A Hill-Sachs lesion is again noted in the humeral head Planned for surgery as outpatient at [facility] but not medically optimized Consider orthopedic consult, pain mgmt if no improvement Was on PRN percocet, lidocaine patch, ice to affected area Patient is now back on buprenorphine patch. Percocet on hold. Pain management consulted H/O Ambulatory dysfunction H/O Parkinson's disease/RLS Fall precautions PT/OT H.o fibromyalgia, chronic pain on buprenorphine patch, PRN Percocet for breakthrough pain, added lidocaine patch Also on Skelaxin At high risk for polypharmacy given extensive med list Hypercoagulopathy H/O PE, DVT, protein C deficiency INR now subtherapeutic at 1.4 Coumadin increased to 5 mg Continue IV heparin drip for now while INR subtherapeutic Monitor INR daily Chronic diastolic heart failure: BNP 220, BLE edema (chronic), CXR with cardiomegaly with no acute cardiopulmonary abnormality identified Continue PO lasix 40mg Parkinson's Disease Chronic, stable. Continue carbidopa levodopa HTN Continue Lopressor Hypothyroidism Continue levothyroxine RLS Continue home medications Anemia of chronic disease Hgb stable. Monitor Asthma No signs acute exacerbation. Continue home inhalers H/O Gastric bypass with chronic constipation, narcotics Bowel regimen TAA Declined surgery in the past GERD Continue PPI H/O Edenilson-Danlos syndrome stable BRANDIE H/O Intolerance to CPAP DVT Px: Coumadin, iv heparin Code Status: Full code PCP: Kaylah Agee Disposition: PT/OT eval Admission and Anticipated Discharge Date Admission Date: July 22, 2022 Subjective Pt seen in follow up of shoulder pain, LE edema. Now w/ LLE pain Laying in bed, in NAD. LE edema much improved. Pt feels overall weak and has gen. pain as she does not have the buprenorphine patch on. Also has more of left lower extremity pain. Buprenorphine patch was brought in yesterday afternoon. denies any chest pain, palpitation, dizziness and SOB Worked with PT yesterday however could not work with them as well as last time, d/t pain. Review of Systems Review of Systems: All systems reviewed & are unremarkable except as noted in Subjective Physical Exam Physical Exam: General- No acute distress Head- atraumatic Eyes- PERRL, EOMI, ENT- oropharynx clear Neck- supple, no JVD Lungs- clear to auscultation Heart- regular rhythm; no murmur Abdomen- normal bowel sounds, soft, nontender Extremities- no calf tenderness, +min edema (much improved), + R shoulder dislocated (chronic) with buprenorphine patch in place Neuro- alert, oriented x 3; PERRL, EOMI; no facial palsy; no dysarthria Skin- warm & dry Results & Data Results & Data ([facility]) Vital Signs (Past 12 Hours) Vital Signs Temp Pulse Pulse Resp BP Pulse Ox O2 Del Method 07/27/22 08:13 36.6 C 71 19 96/63 L 98 Room Air 07/27/22 07:50 66 07/26/22 23:00 37.6 C H 83 20 111/65 98 Room Air Laboratory Results 07/27/22 Range/Units 05:58 PT 19.0 H (9.0-12.0) Seconds INR 1.8 H (0.9-1.1) APTT 71.8 H* (21.0-31.0) Seconds PTT Ratio 2.6 Medications Administered Current Inpatient Medications Acetaminophen (Acetaminophen 325 Mg Tab) 650 mg PO Q4H PRN PRN Reason: Pain or Fever Stop: 08/21/22 18:41 Last Admin: 07/25/22 12:04 Dose: 650 mg Albuterol (Albuterol Hfa 8 Gm Inhaler) 2 puffs INH Q6 PRN PRN Reason: Shortness Of Breath Or Wheezing Stop: 08/21/22 19:32 Albuterol (Albut/Ipratrop 3mg/0.5mg Neb 3 Ml Vial) 3 ml INH QID PRN; Protocol PRN Reason: Shortness Of Breath Stop: 08/21/22 19:32 Atorvastatin Calcium (Atorvastatin 20 Mg Tab) 20 mg PO QAM [facility] Stop: 08/22/22 08:59 Last Admin: 07/27/22 08:34 Dose: 20 mg Buprenorphine HCl (Buprenorphine 15 Mcg/Patch Tdsy) 15 mcg TD Q7D [facility] Stop: 08/25/22 16:59 Last Admin: 07/26/22 17:00 Dose: 15 mcg Carbidopa/Levodopa (Carbidopa/Levodopa 25/100mg Tab) 1 tab PO QID [facility] Stop: 08/21/22 20:59 Last Admin: 07/27/22 08:34 Dose: 1 tab Diclofenac Sodium (Diclofenac Sod 1% Gel 100 Gm Tube) 2 gm EXT QID PRN; Protocol PRN Reason: Pain Stop: 08/21/22 19:32 Ergocalciferol (Ergocalciferol 50,000 Units 1250 Mcg Cap) 50,000 units PO We@0900 [facility] Stop: 08/24/22 08:59 Last Admin: 07/25/22 07:46 Dose: 50,000 units Fish Oil ([place]-3 (Purified Fish Oil) 1 Gm Cap) 1 gm PO DAILY [facility] Stop: 08/22/22 08:59 Last Admin: 07/27/22 08:36 Dose: 1 gm Fluticasone Propionate (Fluticasone Propionate Na Spr 16 Gm Btl) 2 sprays ELYSE DAILY [facility] Stop: 08/22/22 08:59 Last Admin: 07/27/22 08:36 Dose: 2 sprays Fluticasone/Vilanterol (Fluticasone/Vilanterol 100/25mcg 14 Puffs/Inhaler) 1 puffs INH DAILY [facility] Stop: 08/22/22 08:59 Last Admin: 07/27/22 08:36 Dose: 1 puffs Furosemide (Furosemide 40 Mg Tab) 40 mg PO DAILY [facility] Stop: 08/22/22 08:59 Last Admin: 07/27/22 08:35 Dose: Not Given Hydroxyzine HCl (Hydroxyzine Hcl 25 Mg Tab) 25 mg PO Q6 PRN PRN Reason: .ANX/ITCH Stop: 08/21/22 19:32 Last Admin: 07/26/22 03:41 Dose: 25 mg Heparin Sodium/Dextrose (Heparin Sodium/Dextrose) 25,000 units in 500 mls @ 15 mls/hr IV .Q24H [facility]; Protocol Stop: 08/23/22 09:44 Last Titration: 07/27/22 07:37 Dose: 750 units/hr, 15 mls/hr Lactobacillus Acidophilus (Advanced Probiotic 1250 Mg Capsule) 2 cap PO DAILY [facility] Stop: 08/22/22 08:59 Last Admin: 07/27/22 08:35 Dose: 2 cap Levothyroxine Sodium (Levothyroxine Sodium 50 Mcg Tablet) 50 mcg PO DAILYBB [facility] Stop: 08/22/22 08:59 Last Admin: 07/27/22 06:39 Dose: 50 mcg Lidocaine (Lidocaine 5% 1 Patch) 2 patch TD QAM [facility] Stop: 08/24/22 08:59 Last Admin: 07/27/22 08:36 Dose: 2 patch Meclizine HCl (Meclizine Hcl 25 Mg Tab) 25 mg PO TID PRN PRN Reason: DIZZY Stop: 08/21/22 19:38 Metoprolol Tartrate (Metoprolol Tartrate 25 Mg Tab) 12.5 mg PO DAILY [facility] Stop: 08/22/22 08:59 Last Admin: 07/27/22 08:35 Dose: Not Given Mirtazapine (Mirtazapine Tab 15 Mg Tab) 15 mg PO HS [facility] Stop: 08/21/22 20:59 Last Admin: 07/26/22 20:11 Dose: 15 mg Miscellaneous (Remove Lidoderm Patch) 1 each N/A DAILY@2100 [facility] Stop: 08/21/22 20:59 Last Admin: 07/26/22 20:34 Dose: 1 each Miscellaneous (Buprenorphine ~ Remove Patch) 1 each N/A Q7D [facility] Stop: 08/31/22 16:59 Miscellaneous (Check Buprenorphine Patch) 1 each N/A QS [facility] Stop: 08/26/22 00:00 Last Admin: 07/27/22 08:37 Dose: 1 each Montelukast Sodium (Montelukast Sodium 10 Mg Tablet) 10 mg PO HS [facility] Stop: 08/21/22 20:59 Last Admin: 07/26/22 20:10 Dose: 10 mg Multivitamins/Minerals (Cerovite Adv Formula Tab) 1 tab PO BID [facility] Stop: 08/21/22 20:59 Last Admin: 07/27/22 08:35 Dose: 1 tab Ondansetron HCl (Ondansetron Inj 2 Mg/Ml 2 Ml Vial) 4 mg IV Q6H PRN PRN Reason: Nausea Stop: 08/21/22 18:41 Oxycodone/Acetaminophen (Oxycodone/Acetaminophen 5mg/325mg Tab) 1 tab PO Q6H PRN PRN Reason: severe breakthrough pain Stop: 08/07/22 00:59 Last Admin: 07/27/22 02:05 Dose: 1 tab Pantoprazole Sodium (Pantoprazole 40 Mg Tab) 40 mg PO DAILY [facility] Stop: 08/22/22 08:59 Last Admin: 07/27/22 08:35 Dose: 40 mg Polyethylene Glycol (Polyethylene (Miralax) 17 Gm Pack) 17 gm PO DAILY PRN PRN Reason: Constipation Stop: 08/21/22 18:41 Potassium Chloride (Potassium Chloride Pwd 20 Meq Pack) 40 meq PO QAM [facility] Stop: 08/22/22 08:59 Last Admin: 07/27/22 08:35 Dose: 40 meq Potassium Chloride (Potassium Chloride Pwd 20 Meq Pack) 20 meq PO QPM [facility] Stop: 08/21/22 20:59 Last Admin: 07/26/22 20:10 Dose: 20 meq Ropinirole HCl (Ropinirole Hcl 1 Mg Tablet) 1 mg PO 0800,1200,1700 [facility] Stop: 08/22/22 07:59 Last Admin: 07/27/22 08:34 Dose: 1 mg Ropinirole HCl (Ropinirole Hcl 2 Mg Tablet) 2 mg PO TODAY@2000 [facility] Stop: 08/21/22 20:59 Last Admin: 07/26/22 20:12 Dose: 2 mg Senna/Docusate Sodium (Docusate Sodium/Senna 50/8.6mg Tab) 1 tab PO BID [facility] Stop: 08/21/22 20:59 Last Admin: 07/27/22 08:34 Dose: 1 tab Thiamine HCl (Thiamine Hcl 100 Mg Tab) 100 mg PO BID [facility] Stop: 08/21/22 20:59 Last Admin: 07/27/22 08:35 Dose: 100 mg Warfarin Sodium (Warfarin Sod 5 Mg Tab) 5 mg PO DAILY@1600 [facility] Stop: 08/23/22 15:59 Last Admin: 07/26/22 16:36 Dose: 5 mg (1) Shoulder pain Chronicity: acute Laterality: right Qualified Code(s): M25.511 - Pain in right shoulder (2) Chronic pain Chronic pain type: chronic pain syndrome Qualified Code(s): G89.4 - Chronic pain syndrome
--- NOTE | 2022-07-27 12:34 | CT Scan Report ---
LEFT HIP CT CT DOSE: HISTORY: LLE pain/hip pain TECHNIQUE: Multiaxial CT images of the left hip were performed and reformatted in the sagittal and co amy plane without the use of contrast. A dose lowering technique was utilized adhering to the prin ciples of ANAIS. COMPARISON: Right hip CT 07/24/2022. Left femur 03/17/2022. FINDINGS: No acute fracture or dislocation within the left hip. The visualized pelvic bones are intac t. Mild cartilage space narrowing within the left hip consistent with degenerative change. No evidenc e for avascular necrosis. No significant hip effusion identified. Mild subcutaneous edema is noted wi thin the left hip. There are mild vascular calcifications present. IMPRESSION: 1. No acute fracture or dislocation within the left hip. 2. Mild osteoarthritis. ACT 112: Negative or not required by law. Electronically signed by: Tavares Jaramillo M.D. 07/27/2022 12:33 PM
--- NOTE | 2022-07-27 13:34 | CT Scan Report ---
CT SCAN OF THE LUMBAR SPINE WITHOUT IV CONTRAST CLINICAL HISTORY: Low back pain. Left lower extremity radiculopathy. COMPARISON STUDY: CT scan of the lumbar spine dated 02/06/2022. TECHNIQUE: CT scan of the lumbar spine was performed from the lower thoracic spine to the sacrum. Radha ges are reviewed in the axial, sagittal, and coronal planes. IV contrast was not administered for thi s examination. A dose lowering technique was utilized adhering to the principles of ALARA. CT DOSE: 788.14 mGy.cm FINDINGS: The skeletal structures are osteopenic. There is no evidence of acute fracture or malalignm ent involving the lumbar spine. Vertebral body height is maintained. There is minimal anterolisthesis at L3-L4 and L5-S1. Alignment is otherwise preserved. There is moderate lumbar levocurvature centere d at L3. Anterior and lateral marginal osteophytes are seen throughout. The transverse and spinous pr ocesses appear intact. No lytic or blastic lesion is seen. Moderate to advanced facet arthropathy is seen in the mid to lower lumbar region. There is mild disc space narrowing at L3-L4. Moderate to konrad re disc space narrowing is seen at the remaining lumbar levels. Posterior disc osteophyte complexes a re seen. There is mild/moderate central canal stenosis at L2-L3 and L3-L4. Left lateral disc bulge as sociated L3-L4 and L4-L5. These contribute to some reticular stenosis and may abut the exiting left-s ided nerve roots. A large right lateral disc bulge at L2-L3 may abut the exiting right L3 nerve root. The visualized sacrum and bony pelvis appear intact. There is fatty atrophy of the paraspinous muscu lature. No retroperitoneal lymphadenopathy is seen. Postsurgical changes partially visualized in the stomach. There are trace pleural effusions. IMPRESSION: 1. No acute bony abnormality seen involving the lumbar spine. 2. Osteopenia with lumbosacral spondylosis and scoliosis as above. This is similar to previous. ACT 112: Negative or not required by law. Dictated: 07/27/2022 12:13 PM Transcribed: 07/27/2022 1:32 PM Stacy [id number] [email or web address] Electronically signed by: Julian Sibley M.D. 07/27/2022 1:33 PM
--- NOTE | 2022-07-27 14:57 | Pain Management Consultation ---
Date of Consultation July 27, 2022 Assessment & Plan (1) Shoulder pain: Chronicity: acute Laterality: right Qualified Code(s): M25.511 - Pain in right shoulder (2) Fibromyalgia: (3) Opioid dependence: (4) Acute exacerbation of chronic low back pain: Plan 1. No obvious explanation of her increased low back and left leg pain based on most recent imaging. I believe it is likely that her increased pain complaints are byproduct of her being without her Butrans patch for approximately 5-6 days. She is noting improvement in her pain over the past 24 hours with resuming the Butrans patch. It was explained to the patient that I will take a few more days to reach steady state with the Butrans patch to provide efficacy as it was in her chronic dosing over the past year. Patient verbalized understanding and all of her questions were answered. 2. Patient may utilize Percocet every 6 hours for as needed breakthrough pain over the next few days 3. Pain service has nothing interventional to offer the patient regarding her current pain complaints Thank you for allowing us to participate in the care of Mrs. Oneal History of Present Illness Reason for Consultation: Low back and left lower extremity pain Requesting Physician: Jez Sultana MD Attending Physician: Jez Sultana MD History of Present Illness Mrs. Oneal is a 72-year-old white female with significant past medical history of chronic diastolic heart failure, thoracic aortic aneurysm, hypercoagulability on Coumadin therapy, hypertension, PSVT, PVD, BRANDIE, Edenilson-Danlos syndrome, bronchial asthma, chronic anemia, Parkinson's disease, mood disorder, fibromyalgia on chronic buprenorphine patch, RLS and ambulatory dysfunction. She further has recent difficulty with right-sided shoulder pain status post a rotator cuff tear and chronic dislocation of the right shoulder who was admitted due to increased pain complaints in the right shoulder. Patient reports that her Butrans patch is typically changed on Saturdays, but it was not changed this past Saturday immediately prior to her admission on Saturday. They were unable to obtain Butrans patch until yesterday when it was resumed at 15 mcg dose. She does report that her pain is slightly improved today compared to yesterday. Her predominant pain generator is currently the axial low back and left posterior leg stopping at the level of the knee. She does report chronic axial low back pain but feels that her left leg pain is slightly different in characteristic of chronic complaints. She does have diffuse myofascial pain related to fibromyalgia and her right shoulder pain as described above. She did not believe that Butrans patch was being effective until she went without it over the past 5 days. She is reportedly managed through the [facility] pharmacy clinic regarding her opiate therapy. Patient describes her axial back pain as aching and episodically electrical shocklike. The electrical shocklike pain is chronic and episodic. Patient indicates that she is experiencing increased leg pain with any attempted standing or ambulatory activities. She denies overt weakness but is reporting hesitancy utilizing her legs due to the discomfort that she is "anticipating". She denies bowel or bladder incontinence or saddle anesthesia. She denies any right lower extremity radicular pattern pain complaints. Patient has no further constitutional complaints. Plan of care discussed with Dr. Cintia Quiroga. Pain Assessment Full Body Front + Back: 1. Axial lumbar spine 2. Right shoulder 3. Left posterior leg-thigh to stopping at knee Pain scale - at its best (0-10): 5 Pain scale - at its worst (0-10): 8 Allergies Allergy/AdvReac Type Severity Reaction Status Date / Time ammonia Allergy Severe FACE, Verified 04/28/22 23:43 LIPS, TONGUE EDEMA buspirone Allergy Severe NEURO Verified 04/28/22 23:43 COMPLICATIONS duloxetine Allergy Intermediate RASH Verified 04/28/22 23:43 ITCHING lisinopril Allergy Intermediate cough Verified 04/28/22 23:43 adhesive Allergy Mild skin tears Verified 04/28/22 23:43 NSAIDS (Non-Steroidal Allergy Unknown not Verified 04/28/22 23:43 Anti-Inflamma supposed to use-S/P GASTRIC BYPASS vancomycin Allergy Unknown ON GMG MED Verified 04/28/22 23:43 LIST venlafaxine Allergy Unknown AFFECTS Verified 04/28/22 23:43 LEGS diphenhydramine AdvReac Intermediate RESTLESS Verified 04/28/22 23:43 LEGS gabapentin AdvReac Intermediate MUSCLE Verified 04/28/22 23:43 STIFFNESS Home Medications Medication Instructions Recorded Confirmed Type L.acidoph-L.rhamn-B.bifidum-B.long 2 tab PO DAILY 01/09/22 07/22/22 History 12.9 mg (2 billion cell) tabletDR (Probiotic Acidophilus ePrep) albuterol sulfate 90 mcg/actuation 2 inh inhalation Q6 PRN Shortness 01/09/22 07/22/22 History aerosol inhaler Of Breath Or Wheezing atorvastatin 20 mg tablet 20 mg PO QAM 01/09/22 07/22/22 History biotin 1 mg tablet 1 mg PO DAILY 01/09/22 07/22/22 History buprenorphine 15 mcg/hour weekly 1 patch topical WK 01/09/22 07/22/22 History transdermal patch carbidopa 25 mg-levodopa 100 mg 1 tab PO QID 01/09/22 07/22/22 History tablet cromolyn 4 % eye drops 1 drp OPL QID PRN Itching 01/09/22 07/22/22 History cyanocobalamin (vitamin B-12) 1,000 mcg MO 01/09/22 07/22/22 History 1,000 mcg/mL injection syringe docusate sodium 50 mg capsule 50 mg PO BID 01/09/22 07/22/22 History ergocalciferol (vitamin D2) 1,250 1,250 mcg PO WK 01/09/22 07/22/22 History mcg (50,000 unit) capsule (Vitamin D2) fluticasone 100 mcg-salmeterol 50 1 inh inhalation BID 01/09/22 07/22/22 History mcg/dose blistr powdr for inhalation (Advair Diskus) fluticasone propionate 50 2 spray intranasal DAILY 01/09/22 07/22/22 History mcg/actuation nasal spray,suspension (Flonase Allergy Relief) hydroxyzine HCl 25 mg tablet 25 mg PO Q6 PRN .ANX/ITCH 01/09/22 07/22/22 History ipratropium 0.5 mg-albuterol 3 mg 3 ml inhalation QID PRN Shortness 01/09/22 07/22/22 History (2.5 mg base)/3 mL nebulization Of Breath soln ipratropium bromide 21 mcg (0.03 1 spray intranasal QID 01/09/22 07/22/22 History %) nasal spray levothyroxine 50 mcg tablet 50 mcg PO DAILY 01/09/22 07/22/22 History lidocaine HCl 2.8 % topical gel 1 applic topical BID PRN APPLY TO 01/09/22 07/22/22 History AFFECTED AREAA linaclotide 290 mcg capsule 290 mcg PO DAILY 01/09/22 07/22/22 History (Linzess) meclizine 25 mg tablet 25 mg PO TID PRN DIZZY 01/09/22 07/22/22 History metoprolol tartrate 25 mg tablet 12.5 mg PO DAILY 01/09/22 07/22/22 History montelukast 10 mg tablet 10 mg PO HS 01/09/22 07/22/22 History omega-3 fatty acids 1,000 mg PO DAILY 01/09/22 07/22/22 History omeprazole 20 mg capsule,delayed 40 mg PO DAILY 01/09/22 07/22/22 History release ondansetron HCl 4 mg tablet 4 mg PO Q12 PRN Nausea 01/09/22 07/22/22 History potassium chloride 20 mEq oral 20 meq PO UD 01/09/22 07/22/22 History packet (Klor-Con) sennosides 8.6 mg-docusate sodium 1 tab-cap PO BID 01/09/22 07/22/22 History 50 mg tablet (Senna-S) thiamine HCl (vitamin B1) 100 mg 100 mg PO BID 01/09/22 07/22/22 History tablet triamcinolone acetonide 0.1 % 1 applic topical BID PRN FLARE UP 01/09/22 07/22/22 History topical cream vit C 250 mg-vit E 90 mg-zinc 40 1 tab PO BID 01/09/22 07/22/22 History mg-copper 1 cb-htsiwl-avmarz capsule (PreserVision AREDS-2) metaxalone 800 mg tablet 400 mg PO TID PRN Spasms #10 tabs 04/25/22 07/22/22 Rx ropinirole 1 mg tablet 1 mg PO TID 04/28/22 07/22/22 History ropinirole 2 mg tablet 2 mg PO HS 04/28/22 07/22/22 History oxycodone-acetaminophen 5 mg-325 1 tab PO Q8H PRN severe 05/09/22 07/22/22 Rx mg tablet (Percocet) breakthrough pain #10 tabs diclofenac sodium 1 % topical gel 2 g topical QID PRN Pain 07/22/22 07/22/22 History (Voltaren Arthritis Pain) furosemide 20 mg tablet 40 mg PO DAILY 07/22/22 07/22/22 History mirtazapine 15 mg tablet 15 mg PO HS 07/22/22 07/22/22 History warfarin 2.5 mg tablet 2.5 mg PO DAILY@1600 07/22/22 07/22/22 History Pain History Pain Intensity Pain scale - at its best (0-10): 5 Pain scale - at its worst (0-10): 8 Patient History Medical History (Updated 07/27/22 @ 15:10 by Celestino Ronquillo PA-C) Abdominal hernia Acute exacerbation of chronic low back pain ADHD Anemia Asthma uses PRN INH 3-4 x wk Bulging of intervertebral disc Claustrophobia Coagulopathy Difficult intravenous access Dysphagia Edenilson-Danlos syndrome Fibromyalgia ISAC (generalized anxiety disorder) Gastroparesis GERD (gastroesophageal reflux disease) Hearing deficit History of colon polyps History of colon polyps History of DVT (deep vein thrombosis) chronic anticoagulation History of intestinal obstruction Hyperlipidemia Hypokalemia Hypothyroidism Opioid dependence Osteoarthritis Osteoporosis Peripheral neuropathy Protein C deficiency Pulmonary embolism 07/2018 - treated w/ lovenox - unk etiology Recurrent falls Renal cyst Restless leg syndrome Sleep apnea unable to tolerate CPAP Tachycardia Thoracic aortic aneurysm follows w/ Dr. Arredondo - evaluated within last 6 mo Thyroid nodule Weakness Surgical History History of abdominoplasty + hernia repair History of arthroscopy of left knee History of bilateral breast reduction surgery History of cholecystectomy History of colonoscopy History of esophagogastroduodenoscopy (EGD) History of gastric bypass History of intestinal surgery History of laparotomy History of left knee replacement History of right knee joint replacement History of tonsillectomy Hx of melanoma excision shoulder S/P hysterectomy Self extubation attempted post gastric bypass Status post biopsy of thyroid gland benign Family History Uncle Stomach cancer Other No family history of adverse response to anesthesia No pertinent family history in first degree relatives Social History Smoking Status: Never smoker Second Hand Exposure: No; Hx Alcohol Use: No Hx Substance Use: No Preferred Language: Lithuanian Communication Ability: Effective Visual Impairment: Limited Hearing Ability: Normal Pharmacoepidemiologist Required: No Beliefs That Will Affect Care: None marital status: Single Current Living Situation: Jail Current Living Situation Comment: has friends to help when needed How many Children do You have: 0 Other Information That Helps Us Care for You: No Feels Safe at Home: Yes Safety Concerns: Feels Safe At This Time Assistive Devices: Walker Physical Exam Physical Exam: General: Patient lying quietly in exam room in no acute distress. Speech and thought process appropriate. Mood and affect slightly irritable. Cognition intact. Head: Normocephalic and atraumatic. ENT: No evidence of nasal or oral mucosal lesions. Mucous membranes are moist. Extremely poor dentition. Eyes: Pupils equal round reactive to light. Neck: Supple without adenopathy and full range of motion. Chest: Patient is tender to palpation of the costosternal junction. Musculoskeletal: Fairly diffuse myofascial tenderness to palpation with slightly hyperalgesic response. Abdomen: Soft and nondistended. No organomegaly. Bowel sounds active. Back/spine: Patient was assisted with logrolling towards her left side with incr eased low back pain complaints. Patient has generalized diffused tenderness in the lumbosacral region which is nonfocal to the midline, facet joints or SI joints. Lower extremities: SLR reported increased axial back pain without an overt radicular component. Patient has edema of the ankle and pretibial regions bilaterally with some generalized erythema. She is tender to palpation over the entire pretibial regions bilaterally. Strength testing was 4/5 with EHL testing, dorsi and plantar flexion bilaterally. Sensation was reportedly intact in the ankle and feet bilaterally. Neurologic: Cranial nerves grossly intact. Ambulatory function not witnessed. Results (Pain Clinic) Diagnostic Review CT Findings: [place], [place] [phone] CT Scan Report Patient:GRETTA ONEAL Admit Date:07/22/22 MR#:[id number] Address1:[address] [place] [address] Acct ID:[id number] Address2:[facility] Date:1950 [facility] Zip:[place] [address] Age:72 Location:2W Sex:F Room/Bed:[facility] Att Phy:Jez Sultana MD Diagnosis:LLE PAIN,VOLUME OVERLOAD Elva Phy:Adrienne Bentley MD Service Date:07/27/22 Fam Phy: Interpreting Phy:Julian Sibley [facility] Phy:Ronny Willett M.D. Ordering Phy:Jez Sultana MD cc: ~ CT SCAN OF THE LUMBAR SPINE WITHOUT IV CONTRAST CLINICAL HISTORY: Low back pain. Left lower extremity radiculopathy. COMPARISON STUDY: CT scan of the lumbar spine dated 02/06/2022. TECHNIQUE: CT scan of the lumbar spine was performed from the lower thoracic spine to the sacrum. Images are reviewed in the axial, sagittal, and coronal planes. IV contrast was not administered for this examination. A dose lowering technique was utilized adhering to the principles of ALARA. CT DOSE: 788.14 mGy.cm FINDINGS: The skeletal structures are osteopenic. There is no evidence of acute fracture or malalignment involving the lumbar spine. Vertebral body height is maintained. There is minimal anterolisthesis at L3-L4 and L5-S1. Alignment is otherwise preserved. There is moderate lumbar levocurvature centered at L3. Anterior and lateral marginal osteophytes are seen throughout. The transverse and spinous processes appear intact. No lytic or blastic lesion is seen. Modera te to advanced facet arthropathy is seen in the mid to lower lumbar region. There is mild disc space narrowing at L3-L4. Moderate to severe disc space narrowing is seen at the remaining lumbar levels. Posterior disc osteophyte complexes are seen. There is mild/moderate central canal stenosis at L2-L3 and L3-L4. Left lateral disc bulge associated L3-L4 and L4-L5. These contribute to some reticular stenosis and may abut the exiting left-sided nerve roots. A large right lateral disc bulge at L2-L3 may abut the exiting right L3 nerve root. The visualized sacrum and bony pelvis appear intact. There is fatty atrophy of the paraspinous musculature. No retroperitoneal lymphadenopathy is seen. Postsu rgical changes partially visualized in the stomach. There are trace pleural effusions. IMPRESSION: 1. No acute bony abnormality seen involving the lumbar spine. 2. Osteopenia with lumbosacral spondylosis and scoliosis as above. This is similar to previous. ACT 112: Negative or not required by law. Dictated: 07/27/2022 12:13 PM Transcribed: 07/27/2022 1:32 PM Stacy [id number] [email or web address]_Navi Electronically signed by: Julian Sibley M.D. 07/27/2022 1:33 PM Dictated:07/27/22 1213 Transcribed: 07/27/22 1332 [place], [place] [phone] CT Scan Report Patient:GRETTA ONEAL Admit Date:07/22/22 MR#:[id number] Address1:[address] [place] [address] Acct ID:[id number] Address2:[facility] Date:1950 [facility] Zip:[place] [address] Age:72 Location:2W Sex:F Room/Bed:[facility] Att Phy:Jez Sultana MD Diagnosis:LLE PAIN,VOLUME OVERLOAD Elva Phy:Adrienne Bentley MD Service Date:07/27/22 Fam Phy: Interpreting Phy:Tavares Jaramillo MDAdmit Phy:Ronny Willett M.D. Ordering Phy:Jez Sultana MD cc: ~ LEFT HIP CT CT DOSE: HISTORY: LLE pain/hip pain TECHNIQUE: Multiaxial CT images of the left hip were performed and reformatted in the sagittal and coronal plane without the use of contrast. A dose lowering technique was utilized adhering to the principles of ALARA. COMPARISON: Right hip CT 07/24/2022. Left femur 03/17/2022. FINDINGS: No acute fracture or dislocation within the left hip. The visualized pelvic bones are intact. Mild cartilage space narrowing within the left hip consistent with degenerative change. No evidence for avascular necrosis. No significant hip effusion identified. Mild subcutaneous edema is noted within the left hip. There are mild vascular calcifications present. IMPRESSION: 1. No acute fracture or dislocation within the left hip. 2. Mild osteoarthritis. ACT 112: Negative or not required by law. [place], [place] [phone] CT Scan Report Patient:GRETTA ONEAL Admit Date:07/22/22 MR#:[id number] Address1:[address] [place] [address] Acct ID:[id number] Address2:[facility] Date:1950 [facility] Zip:[place] [address] Age:72 Location:2W Sex:F Room/Bed:[facility] Att Phy:Ronny Willett M.D. Diagnosis:LLE PAIN,VOLUME OVERLOAD Elva Phy:Adrienne Bentley MD Service Date:07/24/22 [facility] Phy: Interpreting Phy:Keshawn FosterAdmit Phy:Ronny Willett M.D. Ordering Phy:Sebastien Delaney MD cc: ~ CT hip RT wo con HISTORY: 72 years-old Female r hip pain. coumadin acute right-sided hip pain status post fall COMPARISON: CT right femur 03/17/2022, CT abdomen and pelvis February 06, 2022 TECHNIQUE: Multiple axial CT images of the right hip were obtained without the use of IV contrast. A dose lowering technique was used consistent with the p rincipals of ANAIS. FINDINGS: Arterial calcifications. Gaseous distention of the large bowel with mild colonic fecal retention. Cisneros catheter in place with decompressed urinary bladder. Mild nonspecific subcutaneous edema. Demineralized appearance of the bones. Mild osteoarthritis of the right hip. Subcentimeter bone islands of the femoral head and iliac crest. No acute fracture, dislocation or avascular necrosis. There is moderate degeneration of the right SI joint. No acute pelvic ring fracture identified. No large joint effusion. IMPRESSION: Mild osteoarthritis without acute fracture or dislocation. ACT 112: Negative or not required by law. The above report was generated using voice recognition software. It may contain grammatical, syntax or spelling errors. Electronically signed by: Keshawn Foster M.D. 07/24/2022 6:21 AM Dictated:07/24/22617 Transcribed: 07/24/22617
[2022-07-27] MEDS: WARFARIN SOD 5 MG TAB PO SCH (15:29)
[2022-07-27 16:54] LABS: Partial Thromboplastin Ratio 2.5
[2022-07-27 17:01] LABS: Partial Thromboplastin Time 67.7 Seconds (21.0-31.0)
[2022-07-27] MEDS: rOPINIRole HCL 2 MG TABLET PO SCH (20:56)
[2022-07-27] MEDS: MONTELUKAST SODIUM 10 MG TABLET PO SCH (20:59)
[2022-07-27] MEDS: MIRTAZAPINE TAB 15 MG TAB PO SCH (21:00)
[2022-07-27 23:52] LABS: Partial Thromboplastin Ratio 2.4
[2022-07-28] MEDS: oxyCODONE/ACETAMINOPHEN 5mg/325mg TAB PO PRN ×2 (00:01→09:12)
[2022-07-28] MEDS: CHECK BUPRENORPHINE PATCH SCH ×2 (00:03→08:34)
[2022-07-28 00:06] LABS: Partial Thromboplastin Time 66.6 Seconds (21.0-31.0)
[2022-07-28] MEDS: LEVOTHYROXINE SODIUM 50 MCG TABLET PO SCH (06:38)
[2022-07-28] MEDS: CARBIDOPA/LEVODOPA 25/100MG TAB PO SCH ×2 (08:32→12:59)
[2022-07-28] MEDS: METOPROLOL TARTRATE 25 MG TAB PO SCH (08:32)
[2022-07-28] MEDS: CEROVITE ADV FORMULA TAB PO SCH (08:32)
[2022-07-28] MEDS: PANTOprazole 40 MG TAB PO SCH (08:32)
[2022-07-28] MEDS: rOPINIRole HCL 1 MG TABLET PO SCH ×2 (08:32→12:59)
[2022-07-28] MEDS: ATORVASTATIN 20 MG TAB PO SCH (08:32)
[2022-07-28] MEDS: THIAMINE HCL 100 MG TAB PO SCH (08:32)
[2022-07-28] MEDS: OMEGA-3 (PURIFIED FISH OIL) 1 GM CAP PO SCH (08:32)
[2022-07-28] MEDS: DOCUSATE SODIUM/SENNA 50/8.6MG TAB PO SCH (08:32)
[2022-07-28 08:33] LABS: Basophils # (auto) 0.03 K/uL (0-0.2); Basophils % (auto) 0.6 %; Eosinophils # (auto) 0.19 K/uL (0-0.50); Eosinophils % (auto) 3.5 %; Hematocrit (blood only) 28.5 % (34.1-44.9); Hemoglobin 9.1 g/dl (12.0-16.0); Immature Granulocytes # (auto) 0.02 K/uL (0.00-0.02); Immature Granulocytes % (auto) 0.4 %; Lymphocytes # (auto) 1.09 K/uL (1.2-3.4); Lymphocytes % (auto) 20.1 %; Mean Corpuscular Hemoglobin 27.3 pg (25.0-34.0); Mean Corpuscular Hgb Conc 31.9 g/dL (32.0-36.0); Mean Corpuscular Volume 85.6 fL (80.0-100.0); Mean Platelet Volume 11.3 fL (9.4-12.3); Monocytes # (auto) 0.86 K/uL (0.24-0.82); Monocytes % (auto) 15.8 %; Neutrophils # (auto) 3.24 K/uL (1.4-6.5); Neutrophils % (auto) 59.6 %; Platelet Count 212 K/uL (130-400); RDW Coefficient of Variation 16.2 % (11.5-14.5); RDW Standard Deviation 50.3 fL (36.4-46.3); Red Blood Count 3.33 M/uL (3.93-5.22); White Blood Count 5.43 K/ul (4.8-10.8)
[2022-07-28] MEDS: ADVANCED PROBIOTIC 1250 MG CAPSULE PO SCH (08:33)
[2022-07-28] MEDS: FLUTICASONE/VILANTEROL 100/25MCG 14 PUFFS/INHALER INH SCH (08:33)
[2022-07-28] MEDS: FUROSEMIDE 40 MG TAB PO SCH (08:33)
[2022-07-28] MEDS: FLUTICASONE PROPIONATE NA SPR 16 GM BTL NAE SCH (08:34)
[2022-07-28] MEDS: LIDOCAINE 5% 1 PATCH TD SCH (08:34)
[2022-07-28] MEDS: POTASSIUM CHLORIDE PWD 20 MEQ PACK PO SCH (08:35)
[2022-07-28 08:54] LABS: INR 2.3 (0.9-1.1)
[2022-07-28 09:00] LABS: Partial Thromboplastin Time 54.9 Seconds (21.0-31.0)
--- NOTE | 2022-07-28 10:04 | Hospitalist Progress Note ---
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) ISAC (generalized anxiety disorder): (11) Pulmonary embolism: (12) Protein C deficiency: (13) Obesity: (14) Sleep apnea: Plan This is a 72 yo F with a PMH of chronic diastolic heart failure (EF 60 to 65%, TTE 2020), thoracic aortic aneurysm, hypercoagulopathy (hx PE/DVT/protein C deficiency on Coumadin), hypertension, PSVT, PVD, BRANDIE (CPAP intolerance), Edenilson-Danlos syndrome, bronchial asthma, chronic anemia (baseline hemoglobin 10-11 ), Parkinson's disease, mood disorder, hypothyroidism, fibromyalgia on buprenorphine patch, restless leg syndrome, ambulatory dysfunction, R shoulder pain secondary to rotator cuff tear and other medical problems listed below who presents from [facility] via EMS due to increased pain in R shoulder and BLE pain and swelling. BLE edema Chronic issue, h/o diastolic HF and underlying chronic venous insufficiency Recurrent infections in past but do not appear infected this time - afebrile, no white count, normal procal Venous doppler showed no evidence of DVT Continue lasix 40mg PO daily. Encouraged pt to keep Legs elevated Leg edema resolved, no erythema, no tenderness to touch Pt has pain with movement but much improved now that buprenorphine patch is on Leg pain w/ movement - improved Initially reported right lower extremity/right hip pain. CT of R hip was obtained by previous provider. CT showed mild osteoarthritis without acute fracture or dislocation. Now pain in R hip resolved. Now reports lower back pain radiating to left lower extremity, causing acute on chronic pain Obtained imaging of lumbar spine and left hip CT L hip 1. No acute fracture or dislocation within the left hip. 2. Mild osteoarthritis. CT L -spine 1. No acute bony abnormality seen involving the lumbar spine. 2. Osteopenia with lumbosacral spondylosis and scoliosis as above. This is similar to previous. Buprenorphine patch was brought in the hospital and re-started on (07/26) Consulted further with pain management as well Pain improving and pt is moving her LLE better Plan to DC to [facility] Anterior subluxation of the R humeral head Acute to subacuteHill-Sachs impaction fracture and bony Bankart H/O recurrent anterior right shoulder dislocation H/O R rotator cuff tear, Edenilson-Danlos Syndrome Shoulder XR with 1. No acute fracture is identified. 2. There is anterior subluxation of the humeral head without clear dislocation. 3. A Hill-Sachs lesion is again noted in the humeral head Planned for surgery as outpatient at [facility] but not medically optimized Consider orthopedic consult, pain mgmt if no improvement Was on PRN percocet, lidocaine patch, ice to affected area Patient is now back on buprenorphine patch. Percocet prn. Pain management consulted H/O Ambulatory dysfunction H/O Parkinson's disease/RLS Fall precautions PT/OT H.o fibromyalgia, chronic pain on buprenorphine patch, PRN Percocet for breakthrough pain, added lidocaine patch Also on Skelaxin At high risk for polypharmacy given extensive med list Hypercoagulopathy H/O PE, DVT, protein C deficiency INR was subtherapeutic at 1.4 Coumadin increased to 5 mg Continued IV heparin drip while INR subtherapeutic - stop now INR now therapeutic at 2.3 Recommend Coumadin 4 mg daily. Recheck INR in 2 to 3 days. Chronic diastolic heart failure: BNP 220, BLE edema (chronic), CXR with cardiomegaly with no acute cardiopulmonary abnormality identified Continue PO lasix 40mg Parkinson's Disease Chronic, stable. Continue carbidopa levodopa HTN Continue Lopressor Hypothyroidism Continue levothyroxine RLS Continue home medications Anemia of chronic disease Hgb stable. Monitor Asthma No signs acute exacerbation. Continue home inhalers H/O Gastric bypass with chronic constipation, narcotics Bowel regimen TAA Declined surgery in the past GERD Continue PPI H/O Edenilson-Danlos syndrome stable BRANDIE H/O Intolerance to CPAP DVT Px: Coumadin Code Status: Full code PCP: Kaylah Agee Disposition: Plan to DC to [facility] Admission and Anticipated Discharge Date Admission Date: July 22, 2022 Subjective Pt seen in follow up of shoulder pain, LE edema. Now w/ LLE pain Laying in bed, in NAD. LE edema much improved/resolved. Pt feels overall weak and has gen. pain however much improved from previous days. Now is back on Buprenorphine patch which was brought in to the hospital. denies any chest pain, palpitation, dizziness and SOB PT/OT - recommend rehab - plan to DC to [facility] INR therapeutic Review of Systems Review of Systems: All systems reviewed & are unremarkable except as noted in Subjective Physical Exam Physical Exam: General- No acute distress Head- atraumatic Eyes- PERRL, EOMI, ENT- oropharynx clear Neck- supple, no JVD Lungs- clear to auscultation Heart- regular rhythm; no murmur Abdomen- normal bowel sounds, soft, nontender Extremities- no calf tenderness, + no LE edema (resolved), + R shoulder dislocated (chronic) with buprenorphine patch in place Neuro- alert, oriented x 3; PERRL, EOMI; no facial palsy; no dysarthria Skin- warm & dry Results & Data Results & Data ([facility]) Vital Signs (Past 12 Hours) Vital Signs Temp Pulse Pulse Resp BP Pulse Ox O2 Del Method 07/28/22 07:22 36.9 C 65 16 104/69 97 Room Air 07/27/22 22:06 78 07/28/22 03:47 36.2 C L 71 16 91/57 L 96 Room Air 07/27/22 23:22 36.3 C L 73 16 92/59 L 94 Room Air Laboratory Results 07/28/22 07/28/22 07/27/22 Range/Units 08:02 08:02 23:13 WBC 5.43 (4.8-10.8) K/ul RBC 3.33 L (3.93-5.22) M/uL Hgb 9.1 L (12.0-16.0) g/dl Hct 28.5 L (34.1-44.9) % MCV 85.6 (80.0-100.0) fL MCH 27.3 (25.0-34.0) pg MCHC 31.9 L (32.0-36.0) g/dL RDW Std Deviation 50.3 H (36.4-46.3) fL RDW Coeff of Neftaly 16.2 H (11.5-14.5) % Plt Count 212 (130-400) K/uL MPV 11.3 (9.4-12.3) fL Immature Gran % (Auto) 0.4 % Neut % (Auto) 59.6 % Lymph % (Auto) 20.1 % [place] % (Auto) 15.8 % Eos % (Auto) 3.5 % Baso % (Auto) 0.6 % Neut # (Auto) 3.24 (1.4-6.5) K/uL Lymph # (Auto) 1.09 L (1.2-3.4) K/uL [place] # (Auto) 0.86 H (0.24-0.82) K/uL Eos # (Auto) 0.19 (0-0.50) K/uL Baso # (Auto) 0.03 (0-0.2) K/uL Immature Gran # (Auto) 0.02 (0.00-0.02) K/uL PT 23.0 H (9.0-12.0) Seconds INR 2.3 H (0.9-1.1) APTT 54.9 H* 66.6 H* PTT Ratio 2.0 2.4 07/27/22 07/27/22 Range/Units 16:08 15:09 WBC (4.8-10.8) K/ul RBC (3.93-5.22) M/uL Hgb (12.0-16.0) g/dl Hct (34.1-44.9) % MCV (80.0-100.0) fL MCH (25.0-34.0) pg MCHC (32.0-36.0) g/dL RDW Std Deviation (36.4-46.3) fL RDW Coeff of Neftaly (11.5-14.5) % Plt Count (130-400) K/uL MPV (9.4-12.3) fL Immature Gran % (Auto) % Neut % (Auto) % Lymph % (Auto) % [place] % (Auto) % Eos % (Auto) % Baso % (Auto) % Neut # (Auto) (1.4-6.5) K/uL Lymph # (Auto) (1.2-3.4) K/uL [place] # (Auto) (0.24-0.82) K/uL Eos # (Auto) (0-0.50) K/uL Baso # (Auto) (0-0.2) K/uL Immature Gran # (Auto) (0.00-0.02) K/uL PT (9.0-12.0) Seconds INR (0.9-1.1) APTT 67.7 H* Cancelled PTT Ratio 2.5 Cancelled Medications Administered Current Inpatient Medications Acetaminophen (Acetaminophen 325 Mg Tab) 650 mg PO Q4H PRN PRN Reason: Pain or Fever Stop: 08/21/22 18:41 Last Admin: 07/25/22 12:04 Dose: 650 mg Albuterol (Albuterol Hfa 8 Gm Inhaler) 2 puffs INH Q6 PRN PRN Reason: Shortness Of Breath Or Wheezing Stop: 08/21/22 19:32 Albuterol (Albut/Ipratrop 3mg/0.5mg Neb 3 Ml Vial) 3 ml INH QID PRN; Protocol PRN Reason: Shortness Of Breath Stop: 08/21/22 19:32 Atorvastatin Calcium (Atorvastatin 20 Mg Tab) 20 mg PO QAM [facility] Stop: 08/22/22 08:59 Last Admin: 07/28/22 08:32 Dose: 20 mg Buprenorphine HCl (Buprenorphine 15 Mcg/Patch Tdsy) 15 mcg TD Q7D [facility] Stop: 08/25/22 16:59 Last Admin: 07/26/22 17:00 Dose: 15 mcg Carbidopa/Levodopa (Carbidopa/Levodopa 25/100mg Tab) 1 tab PO QID ASHUTOSH Stop: 08/21/22 20:59 Last Admin: 07/28/22 08:32 Dose: 1 tab Diclofenac Sodium (Diclofenac Sod 1% Gel 100 Gm Tube) 2 gm EXT QID PRN; Protocol PRN Reason: Pain Stop: 08/21/22 19:32 Ergocalciferol (Ergocalciferol 50,000 Units 1250 Mcg Cap) 50,000 units PO We@0900 [facility] Stop: 08/24/22 08:59 Last Admin: 07/25/22 07:46 Dose: 50,000 units Fish Oil ([place]-3 (Purified Fish Oil) 1 Gm Cap) 1 gm PO DAILY [facility] Stop: 08/22/22 08:59 Last Admin: 07/28/22 08:32 Dose: 1 gm Fluticasone Propionate (Fluticasone Propionate Na Spr 16 Gm Btl) 2 sprays ELYSE DAILY [facility] Stop: 08/22/22 08:59 Last Admin: 07/28/22 08:34 Dose: 2 sprays Fluticasone/Vilanterol (Fluticasone/Vilanterol 100/25mcg 14 Puffs/Inhaler) 1 puffs INH DAILY ASHUTOSH Stop: 08/22/22 08:59 Last Admin: 07/28/22 08:33 Dose: 1 puffs Furosemide (Furosemide 40 Mg Tab) 40 mg PO DAILY ASHUTOSH Stop: 08/22/22 08:59 Last Admin: 07/28/22 08:33 Dose: 40 mg Hydroxyzine HCl (Hydroxyzine Hcl 25 Mg Tab) 25 mg PO Q6 PRN PRN Reason: .ANX/ITCH Stop: 08/21/22 19:32 Last Admin: 07/26/22 03:41 Dose: 25 mg Lactobacillus Acidophilus (Advanced Probiotic 1250 Mg Capsule) 2 cap PO DAILY ASHUTOSH Stop: 08/22/22 08:59 Last Admin: 07/28/22 08:33 Dose: 2 cap Levothyroxine Sodium (Levothyroxine Sodium 50 Mcg Tablet) 50 mcg PO DAILYBB [facility] Stop: 08/22/22 08:59 Last Admin: 07/28/22 06:38 Dose: 50 mcg Lidocaine (Lidocaine 5% 1 Patch) 2 patch TD QAM ASHUTOSH Stop: 08/24/22 08:59 Last Admin: 07/28/22 08:34 Dose: 2 patch Meclizine HCl (Meclizine Hcl 25 Mg Tab) 25 mg PO TID PRN PRN Reason: DIZZY Stop: 08/21/22 19:38 Metoprolol Tartrate (Metoprolol Tartrate 25 Mg Tab) 12.5 mg PO DAILY [facility] Stop: 08/22/22 08:59 Last Admin: 07/28/22 08:32 Dose: 12.5 mg Mirtazapine (Mirtazapine Tab 15 Mg Tab) 15 mg PO HS [facility] Stop: 08/21/22 20:59 Last Admin: 07/27/22 21:00 Dose: 15 mg Miscellaneous (Remove Lidoderm Patch) 1 each N/A DAILY@2100 [facility] Stop: 08/21/22 20:59 Last Admin: 07/27/22 21:14 Dose: 1 each Miscellaneous (Buprenorphine ~ Remove Patch) 1 each N/A Q7D [facility] Stop: 08/31/22 16:59 Miscellaneous (Check Buprenorphine Patch) 1 each N/A QS [facility] Stop: 08/26/22 00:00 Last Admin: 07/28/22 08:34 Dose: 1 each Montelukast Sodium (Montelukast Sodium 10 Mg Tablet) 10 mg PO HS ASHUTOSH Stop: 08/21/22 20:59 Last Admin: 07/27/22 20:59 Dose: 10 mg Multivitamins/Minerals (Cerovite Adv Formula Tab) 1 tab PO BID ASHUTOSH Stop: 08/21/22 20:59 Last Admin: 07/28/22 08:32 Dose: 1 tab Ondansetron HCl (Ondansetron Inj 2 Mg/Ml 2 Ml Vial) 4 mg IV Q6H PRN PRN Reason: Nausea Stop: 08/21/22 18:41 Oxycodone/Acetaminophen (Oxycodone/Acetaminophen 5mg/325mg Tab) 1 tab PO Q6H P RN PRN Reason: severe breakthrough pain Stop: 08/07/22 00:59 Last Admin: 07/28/22 09:12 Dose: 1 tab Pantoprazole Sodium (Pantoprazole 40 Mg Tab) 40 mg PO DAILY ASHUTOSH Stop: 08/22/22 08:59 Last Admin: 07/28/22 08:32 Dose: 40 mg Polyethylene Glycol (Polyethylene (Miralax) 17 Gm Pack) 17 gm PO DAILY PRN PRN Reason: Constipation Stop: 08/21/22 18:41 Potassium Chloride (Potassium Chloride Pwd 20 Meq Pack) 40 meq PO QAM ASHUTOSH Stop: 08/22/22 08:59 Last Admin: 07/28/22 08:35 Dose: 40 meq Potassium Chloride (Potassium Chloride Pwd 20 Meq Pack) 20 meq PO QPM ASHUTOSH Stop: 08/21/22 20:59 Last Admin: 07/27/22 20:59 Dose: 20 meq Ropinirole HCl (Ropinirole Hcl 1 Mg Tablet) 1 mg PO 0800,1200,1700 ASHUTOSH Stop: 08/22/22 07:59 Last Admin: 07/28/22 08:32 Dose: 1 mg Ropinirole HCl (Ropinirole Hcl 2 Mg Tablet) 2 mg PO TODAY@2000 ASHUTOSH Stop: 08/21/22 20:59 Last Admin: 07/27/22 20:56 Dose: 2 mg Senna/Docusate Sodium (Docusate Sodium/Senna 50/8.6mg Tab) 1 tab PO BID ASHUTOSH Stop: 08/21/22 20:59 Last Admin: 07/28/22 08:32 Dose: 1 tab Thiamine HCl (Thiamine Hcl 100 Mg Tab) 100 mg PO BID [facility] Stop: 08/21/22 20:59 Last Admin: 07/28/22 08:32 Dose: 100 mg Warfarin Sodium (Warfarin Sod 5 Mg Tab) 5 mg PO DAILY@1600 [facility] Stop: 08/23/22 15:59 Last Admin: 07/27/22 15:29 Dose: 5 mg (1) Chronic pain Chronic pain type: chronic pain syndrome Qualified Code(s): G89.4 - Chronic pain syndrome (2) Shoulder pain Chronicity: acute Laterality: right Qualified Code(s): M25.511 - Pain in right shoulder
[2022-07-28 11:22] LABS: Partial Thromboplastin Ratio 2.1
[2022-07-28 11:36] LABS: Partial Thromboplastin Time 56.5 Seconds (21.0-31.0)
--- NOTE | 2022-07-28 13:46 | Discharge Summary ---
Date of Service July 28, 2022 Admission HPI Per Admitting Provider This is a 72 yo F with a PMH of chronic diastolic heart failure (EF 60 to 65%, TTE 2020), thoracic aortic aneurysm, hypercoagulopathy (hx PE/DVT/protein C deficiency on Coumadin), hypertension, PSVT, PVD, BRANDIE (CPAP intolerance), Edenilson-Danlos syndrome, bronchial asthma, chronic anemia (baseline hemoglobin 10-11 ), Parkinson's disease, mood disorder, hypothyroidism, fibromyalgia on buprenorphine patch, restless leg syndrome, ambulatory dysfunction, R shoulder pain secondary to rotator cuff tear and other medical problems listed below who presents from [facility] via EMS due to increased pain in R shoulder. Has has chronic pain due to chronic dislocation of right shoulder but apparently had increased pain due to rolling during the night onto that shoulder. Also with increased swelling and pain in lower legs. Patient also tearful over pain from K rider going into IV in left upper extremity which she states is the worst pain during evaluation. Does have been friend morphine patch on. No falls or significant trauma. States leg pain has improved since Cisneros catheter was placed. Also states that shoulder pain has improved since moving her pulse ox to her other hand. Lidocaine patch not helping pain much, per patient. Denies any recent infection, fever, chills, lightheadedness, chest pain or shortness of breath. No nausea, vomiting, abdominal pain, dysuria, diarrhea constipation. Frustrated about ongoing pain that is not controlled with current regimen of Butrans patch and Percocet for breakthrough pain. States she is due for right shoulder surgery to fix chronic dislocation but is currently not optimized per surgery based on [facility] internal medicine preop appointment due to ongoing issues with leg edema and complicated anticoagulation needs perioperatively. Admission Exam Per Admitting Provider General Appearance:WD/WN, vitals as above, NAD, lying in bed, tearful Head: normocephalic, atraumatic Eyes:normal inspection, PERRL, conjunctivae normal, anicteric sclerae ENT: external ear and nose normal, oropharynx normal Neck: normal visual inspection, trachea midline, no thyromegaly Respiratory:normal respiratory effort, lungs clear to auscultation, no wheeze, rales, rhonchi. No accessory muscle use Cardiovascular: regular rate, rhythm, no murmur, normal peripheral pulses. Vessels: no JVD Chest: normal inspection of chest Abdomen/GI: normal bowel sounds, soft, nontender, no hepatosplenomegaly Extremities/Musculoskeletal: no cyanosis or clubbing, extremities motor strength 5/5, BLE 3+ edema, + R shoulder dislocated (chronic) with lidocaine patch in place Neurologic: PERRL, EOMI, accommodation nl, no face palsy, no dysarthria, CN's II-XI intact bilaterally and moves all extremities Psychiatric:A+Ox3, depressed, poor insight Skin: no rashes, normal color, warm/dry Principal Diagnosis Lower extremity pain, edema Ambulatory dysfunction Subtherapeutic INR Chronic pain Discharge Exam General- No acute distress Head- atraumatic Eyes- PERRL, EOMI, ENT- oropharynx clear Neck- supple, no JVD Lungs- clear to auscultation Heart- regular rhythm; no murmur Abdomen- normal bowel sounds, soft, nontender Extremities- no calf tenderness, + no LE edema (resolved), + R shoulder dislocated (chronic) with buprenorphine patch in place Neuro- alert, oriented x 3; PERRL, EOMI; no facial palsy; no dysarthria Skin- warm & dry Discharge Data Allergies Allergy/AdvReac Type Severity Reaction Status Date / Time ammonia Allergy Severe FACE, Verified 04/28/22 23:43 LIPS, TONGUE EDEMA buspirone Allergy Severe NEURO Verified 04/28/22 23:43 COMPLICATIONS duloxetine Allergy Intermediate RASH Verified 04/28/22 23:43 ITCHING lisinopril Allergy Intermediate cough Verified 04/28/22 23:43 adhesive Allergy Mild skin tears Verified 04/28/22 23:43 NSAIDS (Non-Steroidal Allergy Unknown not Verified 04/28/22 23:43 Anti-Inflamma supposed to use-S/P GASTRIC BYPASS vancomycin Allergy Unknown ON [facility] MED Verified 04/28/22 23:43 LIST venlafaxine Allergy Unknown AFFECTS Verified 04/28/22 23:43 LEGS diphenhydramine AdvReac Intermediate RESTLESS Verified 04/28/22 23:43 LEGS gabapentin AdvReac Intermediate MUSCLE Verified 04/28/22 23:43 STIFFNESS Consultations 07/22/22 16:16 ED Decision to Admit Stat 07/27/22 10:39 Consult Pain Management Routine Ordered Studies 07/22/22 18:15 US venous doppler LE BI Routine FINDINGS: There is no sonographic evidence of deep venous thrombosis identified in the right or left lower extremity. The common femoral, superficial femoral, and popliteal veins are patent and normally compressible bilaterally. The gre ater saphenous vein and the profunda femoris vein at the junction with the common femoral vein are clear in both legs. The visualized calf veins are patent bilaterally. Soft tissue edema is present in both legs. IMPRESSION: There is no sonographic evidence of deep venous thrombosis identified in the right or left lower extremity. 07/24/22 05:08 CT hip RT wo con Urgent FINDINGS: Arterial calcifications. Gaseous distention of the large bowel with mild colonic fecal retention. Cisneros catheter in place with decompressed urinary bladder. Mild nonspecific subcutaneous edema. Demineralized appearance of the bones. Mild osteoarthritis of the right hip. Subcentimeter bone islands of the femoral head and iliac crest. No acute fracture, dislocation or avascular necrosis. There is moderate degeneration of the right SI joint. No acute pelvic ring fracture identified. No large joint effusion. IMPRESSION: Mild osteoarthritis without acute fracture or dislocation. 07/27/22 10:41 CT hip LT wo con Routine FINDINGS: No acute fracture or dislocation within the left hip. The visualized pelvic bones are intact. Mild cartilage space narrowing within the left hip consistent with degenerative change. No evidence for avascular necrosis. No significant hip effusion identified. Mild subcutaneous edema is noted within the left hip. There are mild vascular calcifications present. IMPRESSION: 1. No acute fracture or dislocation within the left hip. 2. Mild osteoarthritis. CT lumbar spine wo con Routine FINDINGS: The skeletal structures are osteopenic. There is no evidence of acute fracture or malalignment involving the lumbar spine. Vertebral body height is maintained. There is minimal anterolisthesis at L3-L4 and L5-S1. Alignment is otherwise preserved. There is moderate lumbar levocurvature centered at L3. Anterior and lateral marginal osteophytes are seen throughout. The transverse and spinous processes appear intact. No lytic or blastic lesion is seen. Moderate to advanced facet arthropathy is seen in the mid to lower lumbar region. There is mild disc space narrowing at L3-L4. Moderate to severe disc space narrowing is seen at the remaining lumbar levels. Posterior disc osteophyte complexes are seen. There is mild/moderate central canal stenosis at L2-L3 and L3-L4. Left lateral disc bulge associated L3-L4 and L4-L5. These contribute to some reticular stenosis and may abut the exiting left-sided nerve roots. A large right lateral disc bulge at L2-L3 may abut the exiting right L3 nerve root. The visualized sacrum and bony pelvis appear intact. There is fatty atrophy of the paraspinous musculature. No retroperitoneal lymphadenopathy is seen. Postsurgical changes partially visualized in the stomach. There are trace pleural effusions. IMPRESSION: 1. No acute bony abnormality seen involving the lumbar spine. 2. Osteopenia with lumbosacral spondylosis and scoliosis as above. This is similar to previous. Hospital Course (1) Bilateral leg pain: (2) Leg swelling: (3) Ambulatory dysfunction: (4) Shoulder pain: (5) Dislocation of right shoulder joint: (6) Chronic pain: (7) Hypokalemia: (8) Generalized weakness: (9) Edenilson-Danlos syndrome: (10) ISAC (generalized anxiety disorder): (11) Pulmonary embolism: (12) Protein C deficiency: (13) Obesity: (14) Sleep apnea: Plan This is a 72 yo F with a PMH of chronic diastolic heart failure (EF 60 to 65%, TTE 2020), thoracic aortic aneurysm, hypercoagulopathy (hx PE/DVT/protein C deficiency on Coumadin), hypertension, PSVT, PVD, BRANDIE (CPAP intolerance), Edenilson-Danlos syndrome, bronchial asthma, chronic anemia (baseline hemoglobin 10-11 ), Parkinson's disease, mood disorder, hypothyroidism, fibromyalgia on buprenorphine patch, restless leg syndrome, ambulatory dysfunction, R shoulder pain secondary to rotator cuff tear and other medical problems listed below who presents from [facility] via EMS due to increased pain in R shoulder and BLE pain and swelling. BLE edema Chronic issue, h/o diastolic HF and underlying chronic venous insufficiency Recurrent infections in past but do not appear infected this time - afebrile, no white count, normal procal Venous doppler showed no evidence of DVT Continue lasix 40mg PO daily. Encouraged pt to keep Legs elevated Leg edema resolved, no erythema, no tenderness to touch Pt has pain with movement but much improved now that buprenorphine patch is on Leg pain w/ movement - improved Initially reported right lower extremity/right hip pain. CT of R hip was obtained by previous provider. CT showed mild osteoarthritis without acute fracture or dislocation. Now pain in R hip resolved. Now reports lower back pain radiating to left lower extremity, causing acute on chronic pain Obtained imaging of lumbar spine and left hip CT L hip 1. No acute fracture or dislocation within the left hip. 2. Mild osteoarthritis. CT L -spine 1. No acute bony abnormality seen involving the lumbar spine. 2. Osteopenia with lumbosacral spondylosis and scoliosis as above. This is similar to previous. Buprenorphine patch was brought in the hospital and re-started on (07/26) Consulted further with pain management as well Pain improving and pt is moving her LLE better Plan to DC to [facility] Anterior subluxation of the R humeral head Acute to subacuteHill-Sachs impaction fracture and bony Bankart H/O recurrent anterior right shoulder dislocation H/O R rotator cuff tear, Edenilson-Danlos Syndrome Shoulder XR with 1. No acute fracture is identified. 2. There is anterior subluxation of the humeral head without clear dislocation. 3. A Hill-Sachs lesion is again noted in the humeral head Planned for surgery as outpatient at [facility] but not medically optimized Consider orthopedic consult, pain mgmt if no improvement Was on PRN percocet, lidocaine patch, ice to affected area Patient is now back on buprenorphine patch. Percocet prn. Pain management consulted H/O Ambulatory dysfunction H/O Parkinson's disease/RLS Fall precautions PT/OT H.o fibromyalgia, chronic pain on buprenorphine patch, PRN Percocet for breakthrough pain, added lidocaine patch Also on Skelaxin At high risk for polypharmacy given extensive med list Hypercoagulopathy H/O PE, DVT, protein C deficiency INR was subtherapeutic at 1.4 Coumadin increased to 5 mg Continued IV heparin drip while INR subtherapeutic - stop now INR now therapeutic at 2.3 Recommend Coumadin 4 mg daily. Recheck INR in 2 to 3 days. Chronic diastolic heart failure: BNP 220, BLE edema (chronic), CXR with cardiomegaly with no acute cardiopulmonary abnormality identified Continue PO lasix 40mg Parkinson's Disease Chronic, stable. Continue carbidopa levodopa HTN Continue Lopressor Hypothyroidism Continue levothyroxine RLS Continue home medications Anemia of chronic disease Hgb stable. Monitor Asthma No signs acute exacerbation. Continue home inhalers H/O Gastric bypass with chronic constipation, narcotics Bowel regimen TAA Declined surgery in the past GERD Continue PPI H/O Edenilson-Danlos syndrome stable BRANDIE H/O Intolerance to CPAP Disposition: Plan to DC to [facility] Total Time Total Time Spent Total Time Spent (In Minutes): 40 Discharge Plan Discharge Items Patient Disposition: Transfer Inpatient Rehab Fac Reason For Visit: LLE PAIN,VOLUME OVERLOAD Discharge Diagnosis: Lower extremity pain, edema Ambulatory dysfunction Subtherapeutic INR Chronic pain Activity: Per Instructions section Non-emergency contact: Primary Care Provider Call non-emergency contact if: you have any medication questions and your symptoms worsen Follow-up/Referrals: Adrienne Bentley MD [Primary Care Provider] - Diet: Low Sodium (2gm) Addtl Attending Provider Instructions: Follow-up with primary care physician within 1 week. Have your INR checked in 2 to 3 days. Recommend to increase your warfarin dose to 4 mg a day for now, adjust appropriately according to your INR. Follow-up with your pain management clinic. Pending Studies at Discharge: No Stand-Alone Forms: [facility] Skilled Items Patient informed of condition?: Yes DNR: No Discharge Level of Care: Acute rehab Communicable Disease: No Discharge Prognosis: Stable Lines: None Urinary Catheter: No Medications and DC Order Prescriptions: New warfarin 4 mg tablet 4 mg PO DAILY Qty: 10 0RF oxycodone-acetaminophen [Percocet] 5-325 mg Tablet 1 tab PO Q6H PRN (Reason: pain) Qty: 7 0RF Continued atorvastatin 20 mg tablet 20 mg PO QAM ipratropium-albuterol 0.5 mg-3 mg(2.5 mg base)/3 mL solution for nebulization 3 ml INHALATION QID PRN (Reason: Shortness Of Breath) ondansetron HCl 4 mg Tablet 4 mg PO Q12 PRN (Reason: Nausea) sennosides-docusate sodium [Senna-S] 8.6-50 mg Tablet 1 tab-cap PO BID cromolyn 4 % drops 1 drp OPL QID PRN (Reason: Itching) thiamine HCl (vitamin B1) 100 mg Tablet 100 mg PO BID docusate sodium 50 mg Capsule 50 mg PO BID triamcinolone acetonide 0.1 % cream 1 applic TOPICAL BID PRN (Reason: FLARE UP) potassium chloride [Klor-Con] 20 mEq packet 20 meq PO UD Rx Instructions: 40 meq qAM and 20qPM WHILE ON LASIX meclizine 25 mg Tablet 25 mg PO TID PRN (Reason: DIZZY) levothyroxine 50 mcg tablet 50 mcg PO DAILY omeprazole 20 mg capsule,delayed release(DR/EC) 40 mg PO DAILY montelukast 10 mg tablet 10 mg PO HS hydroxyzine HCl 25 mg Tablet 25 mg PO Q6 PRN (Reason: .ANX/ITCH) ergocalciferol (vitamin D2) [Vitamin D2] 1,250 mcg (50,000 unit) Capsule 1,250 mcg PO WK Rx Instructions: give wed fluticasone propion-salmeterol [Advair Diskus] 100-50 mcg/dose Blister With Device 1 inh INHALATION BID albuterol sulfate 90 mcg/actuation Hfa Aerosol Inhaler 2 inh INHALATION Q6 PRN (Reason: Shortness Of Breath Or Wheezing) carbidopa-levodopa 25-100 mg Tablet 1 tab PO QID fluticasone propionate [Flonase Allergy Relief] 50 mcg/actuation Eakly,Suspension 2 spray INTRANASAL DAILY ipratropium bromide 21 mcg (0.03 %) Eakly,Non-Aerosol 1 spray INTRANASAL QID cyanocobalamin (vitamin B-12) 1,000 mcg/mL Syringe 1,000 mcg MO Rx Instructions: INJECTION omega-3 fatty acids Capsule 1,000 mg PO DAILY metoprolol tartrate 25 mg tablet 12.5 mg PO DAILY biotin 1 mg Tablet 1 mg PO DAILY Linzess 290 mcg capsule 290 mcg PO DAILY buprenorphine 15 mcg/hour patch weekly 1 patch topical WK Rx Instructions: sat PreserVision AREDS-2 250-90-40-1 mg Capsule 1 tab PO BID Probiotic Acidophilus Biobeads 12.9 mg (2 billion cell) Tablet,Delayed Release (Dr/Ec) 2 tab PO DAILY lidocaine HCl 2.8 % Gel 1 applic TOPICAL BID PRN (Reason: APPLY TO AFFECTED AREAA) metaxalone 800 mg tablet 400 mg PO TID PRN (Reason: Spasms) Qty: 10 0RF Rx Instructions: TAKE 1 TAB IN AM,NOON,PM, HS ropinirole 1 mg tablet 1 mg PO TID Rx Instructions: give 0800, 1200, 1700 ropinirole 2 mg tablet 2 mg PO HS Rx Instructions: 2000 diclofenac sodium [Voltaren Arthritis Pain] 1 % Gel 2 g TOPICAL QID PRN (Reason: Pain) furosemide 20 mg tablet 40 mg PO DAILY mirtazapine 15 mg tablet 15 mg PO HS Discontinued oxycodone-acetaminophen [Percocet] 5-325 mg Tablet 1 tab PO Q8H PRN (Reason: severe breakthrough pain) Qty: 10 0RF warfarin 2.5 mg tablet 2.5 mg PO DAILY@1600 Discharge Orders: Discharge Order (Routine); Ordered 07/28/22 Ordered By: Jez Sultana Admission Data Admit Date/Time: 07/22/22 15:59 Attending Provider: Jez Sultana Admit Provider: Ronny Willett Primary Care Provider: Adrienne Bentley Other Providers: Ronny Willett ; Dima Mujica ; [facility]
[2022-08-01] MEDS ORDERED: [UNRECOGNIZED DRUG - REMARK] SCH (17:00)
== END 2022-07-28 16:00 | DRG 563 ==
LOC: ED 11:57 → 2W 15:59 → SUATTDRO 15:59 → 2W 18:00

== ENCOUNTER 2022-10-05 10:58 | Inpatient (IN) ==
--- NOTE | 2022-10-05 11:35 | XRay Report ---
XR chest 1V portable HISTORY: Sepsis COMPARISON: Chest 10/03/2022. FINDINGS: No pneumothorax. No pleural effusions. The cardiac silhouette remains mildly enlarged. The lungs are clear. Degenerative changes again noted within the shoulders. IMPRESSION: No significant change compared to the prior study. No acute process. ACT 112: Negative or not required by law. Electronically signed by: Tavares Jaramillo M.D. 10/05/2022 11:34 AM
[2022-10-05] MEDS ORDERED: ACETAMINOPHEN 1,000 MG/100 ML VIAL IV STA (12:07)
[2022-10-05] MEDS ORDERED: SODIUM CHLORIDE 0.9% 500 ML IV ONE (12:07)
[2022-10-05] MEDS ORDERED: MoRPHine SULFATE 2 MG/ML CARP IV STA (12:07)
[2022-10-05] MEDS ORDERED: LORazepam 1 MG TAB SL STA (12:07)
[2022-10-05] MEDS ORDERED: PIPERACILLIN/TAZOBACTAM 4.5 GM/120 ML BAG IV ONE (12:10)
[2022-10-05 12:17] LABS: Basophils # (auto) 0.04 K/uL (0-0.2); Basophils % (auto) 0.5 %; Eosinophils # (auto) 0.06 K/uL (0-0.50); Eosinophils % (auto) 0.8 %; Hematocrit (blood only) 27.8 % (37.0-47.0); Hemoglobin 8.8 g/dl (12.0-16.0); Immature Granulocytes # (auto) 0.08 K/uL (0.01-0.20); Lymphocytes # (auto) 0.93 K/uL (1.2-3.4); Lymphocytes % (auto) 12.2 %; Mean Corpuscular Hemoglobin 26.4 pg (25.0-34.0); Mean Corpuscular Hgb Conc 31.7 g/dL (32.0-36.0); Mean Corpuscular Volume 83.5 fL (80.0-100.0); Mean Platelet Volume 10.6 fL (9.4-12.4); Monocytes % (auto) 11.8 %; Neutrophils # (auto) 5.61 K/uL (1.40-6.50); Neutrophils % (auto) 73.7 %; Platelet Count 269 K/uL (130-400); RDW Coefficient of Variation 16.8 % (11.5-14.5); RDW Standard Deviation 50.9 fL (36.4-46.3); Red Blood Count 3.33 M/uL (4.20-5.40); White Blood Count 7.62 K/ul (4.8-10.8)
[2022-10-05 12:42] LABS: Albumin Level 3.8 gm/dl (3.4-5.0); Bilirubin Direct 0.1 mg/dl (0-0.2); Bilirubin,Total 0.4 mg/dl (0.2-1.0); Calcium 9.4 mg/dl (8.6-10.3); Creatinine Clr Calc Pharmacy 61.8 ml/min; Est GFR (African American) 92.3 ml/min; Est GFR (Non-African American) 79.6 ml/min; Magnesium 1.8 mg/dl (1.7-2.4); Potassium 3.6 mmol/L (3.5-5.1); Total Protein 6.6 gm/dl (6.0-8.3); Troponin I High Sensitivity 6.6 pg/ml (0-14)
[2022-10-05] MEDS: DAPTOmycin 350 MG in SYRINGE 0 ML IV SCH (13:30)
[2022-10-05 13:40] LABS: Appearance Urine Clear (Clear); Bilirubin Urine Negative (Negative); Blood Urine Negative (Negative); Color Urine Yellow; Glucose Urine UA Negative (Negative); Ketones Urine Negative (Negative); Leukocyte Esterase Urine Negative (Negative); Nitrite Urine Negative (Negative); Protein Urine Negative (Negative); Urobilinogen Urine Negative (Negative); pH Urine 5.5 (4.5-7.5)
--- NOTE | 2022-10-05 14:32 | Emergency Department Note ---
Impression & Plan Bacteremia, Bilateral lower leg cellulitis, long-term current use of anticoagulant therapy, Chronic pain syndrome, Edenilson-Danlos syndrome, Lymphedema ED Provider Note NAME: GRETTA PRAJAPATI AGE: 72 SEX: F ARRIVES VIA: Ambulance INFORMANT: Patient ED PROVIDER(S): Surya Rascon MD CHIEF COMPLAINT: Positive blood culture, referred. PLAN: Disposition: Admit MEDICAL DECISION MAKING: The patient is a pleasant 72-year-old woman with a past medical history of hy percoagulability on warfarin, history of PE, hypertension, hyperlipidemia, diastolic heart failure, paroxysmal SVT, asthma, EDS, gastric bypass, gastroparesis, restless leg syndrome, GERD, depression, ambulatory dysfunction, peripheral neuropathy, chronic pain who presents to the emergency department from her retirement facility at [facility] after being called back to emergency department for a positive blood culture resulting from her emergency department on 10/03 when she presented for feverishness after having iron transfusion. Patient reports that since her visit her lower extremity swelling and pain has worsened. The patient denies any recurrence of feverishness. She denies any vomiting. She reports she does have generalized pain throughout which she feels is worse from her chronic pain. On arrival the patient is anxious appearing, uncomfortable but no acute distress, afebrile stable vital signs. She has 1+ edema bilateral lower extremities with erythema, warmth and tenderness. Distal PMS is intact. EKG without overt acute ischemia. CXR negative for acute cardiopulmonary process. WBC within normal limits. There is no neutrophilia or left shift. Platelets within normal limits. H/H decreased from 2 days ago however within prior range of values. Chemistry without metabolic acidosis. Electrolytes and LFTs unremarkable. High-sensitivity troponin 6.6, within normal limits. Procalcitonin is undetectable. Lipase within normal limits. UA without convincing evidence of infection. The patient was treated empirically with Zosyn given her positive blood culture growing Bacteroides fragilis. Additionally treated with daptomycin given bilateral lower extremity cellulitis. Patient agrees with plan for admission. Case discussed with Kj Francois PAC, with Dr. Akosua Underwood hospitalist who will evaluate the patient for admission. Triage Nursing notes reviewed and agree them. Prior/outside medical records reviewed Vital Signs: reviewed Differential diagnosis: Viral syndrome, otitis, pharyngitis, pneumonia, influenza, meningitis, urinary tract infection, sepsis, bacteremia, as well as other pathologies. ER treatment provided: See below. Diagnostics interpreted by me: ECG: Normal sinus rhythm, 84 bpm, no ectopy, LVH, nonspecific ST abnormality, no overt ST elevation or depression, QTc 446, QRS 100 Cardiac Monitoring: An order for continuous cardiac monitoring was placed and demonstrated Normal sinus rhythm, 84 bpm, no ectopy. Laboratory studies: See below Imaging studies: See below Consultation(s): Case discussed with Kj Francois PAC, with Dr. Akosua Underwood hospitalist who will evaluate the patient for admission. HPI: The patient is a pleasant 72-year-old woman with a past medical history of hypercoagulability on warfarin, history of PE, hypertension, hyperlipidemia, diastolic heart failure, paroxysmal SVT, asthma, EDS, gastric bypass, gastroparesis, restless leg syndrome, GERD, depression, ambulatory dysfunction, peripheral neuropathy, chronic pain who presents to the emergency department from her retirement facility at [facility] after being called back to emergency department for a positive blood culture resulting from her emergency department on 10/03 when she presented for feverishness after having iron trans fusion. Patient reports that since her visit her lower extremity swelling and pain has worsened. The patient denies any recurrence of feverishness. She denies any vomiting. She reports she does have generalized pain throughout which she feels is worse from her chronic pain. ROS: See above HPI for pertinent positives & negatives. A total of 10 systems reviewed and were otherwise negative. VITALS:See Below PHYSICAL EXAMINATION: GENERAL: Awake, alert, chronically ill/uncomfortable appearing, in no distress, BMI 31.7. HENT: Normocephalic, atraumatic. Oropharynx with dry mucous membranes and otherwise unremarkable. EYES: Normal conjunctiva. Sclera non-icteric. NECK: Supple. No nuchal rigidity. FROM. No JVD. RESPIRATORY: Clear to auscultation. CARDIAC: Regular rate, normal rhythm. Extremities warm and well perfused. Pulses equal. ABDOMEN: Soft, non-distended. No tenderness to palpation. No rebound or guarding . No masses. RECTAL: Deferred. MUSCULOSKELETAL: Chest examination reveals no tenderness. The back is symmetrical on inspection without obvious abnormality. There is no CVA tenderness to palpation. LOWER EXTREMITIES: Calves are equal size bilaterally and non-tender. 1+ edema bilateral lower extremities with erythema, warmth and tenderness. Distal PMS is intact. NEURO: Normal sensorium. No sensory or motor deficits noted. SKIN: No rash or jaundice noted. ED COURSE: Critical Care: I have personally spent greater than 35 minutes of critical care time in the direct management of this patient. This includes bedside care, interpretation of diagnostic studies, and testing, discussion with consultants, patient, and family members, and other required patient management activities. This 35 minutes is in excess of all separately billable procedures. Surya Rascon MD Past Med/Surg History Medical History Abdominal hernia Acute exacerbation of chronic low back pain ADHD Anemia Asthma uses PRN INH 3-4 x wk Bulging of intervertebral disc Claustrophobia Coagulopathy Difficult intravenous access Dysphagia Edenilson-Danlos syndrome Fibromyalgia ISAC (generalized anxiety disorder) Gastroparesis GERD (gastroesophageal reflux disease) Hearing deficit History of colon polyps History of colon polyps History of DVT (deep vein thrombosis) chronic anticoagulation History of intestinal obstruction Hyperlipidemia Hypokalemia Hypothyroidism Opioid dependence Osteoarthritis Osteoporosis Peripheral neuropathy Protein C deficiency Pulmonary embolism 07/2018 - treated w/ lovenox - unk etiology Recurrent falls Renal cyst Restless leg syndrome Sleep apnea unable to tolerate CPAP Tachycardia Thoracic aortic aneurysm follows w/ Dr. Arredondo - evaluated within last 6 mo Thyroid nodule Weakness Surgical History History of abdominoplasty + hernia repair History of arthroscopy of left knee History of bilateral breast reduction surgery History of cholecystectomy History of colonoscopy History of esophagogastroduodenoscopy (EGD) History of gastric bypass History of intestinal surgery History of laparotomy History of left knee replacement History of right knee joint replacement History of tonsillectomy Hx of melanoma excision shoulder S/P hysterectomy Self extubation attempted post gastric bypass Status post biopsy of thyroid gland benign Family History Uncle Stomach cancer Other No family history of adverse response to anesthesia No pertinent family history in first degree relatives Social History Smoking Status: Unknown if ever smoked Second Hand Exposure: No; Do You Dip or Chew Tobacco: No; Tobacco Cessation Education Requested by Patient: No Hx Alcohol Use: No Hx Substance Use: No Preferred Language: Turkish Communication Ability: Effective Communication Ability Comment: pt is obtunded Visual Impairment: Limited Hearing Ability: Normal 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 How many Children do You have: 0 Other Information That Helps Us Care for You: No Feels Safe at Home: Yes Safety Concerns: Feels Safe At This Time Assistive Devices: Walker Allergies Allergies Allergy/AdvReac Type Severity Reaction Status Date / Time ammonia Allergy Severe FACE, Verified 10/03/22 22:04 LIPS, TONGUE EDEMA buspirone Allergy Severe NEURO Verified 10/03/22 22:04 COMPLICATIONS duloxetine Allergy Intermediate RASH Verified 10/03/22 22:04 ITCHING lisinopril Allergy Intermediate cough Verified 10/03/22 22:04 adhesive Allergy Mild skin tears Verified 10/03/22 22:04 NSAIDS (Non-Steroidal Allergy Unknown not Verified 10/03/22 22:04 Anti-Inflamma supposed to use-S/P GASTRIC BYPASS vancomycin Allergy Unknown ON [facility] Verified 10/03/22 22:04 MED LIST venlafaxine Allergy Unknown AFFECTS Verified 10/03/22 22:04 LEGS diphenhydramine AdvReac Intermediate RESTLESS Verified 10/03/22 22:04 LEGS gabapentin AdvReac Intermediate MUSCLE Verified 10/03/22 22:04 STIFFNESS Home Meds Home Medications Medication Instructions Recorded Confirmed albuterol sulfate 90 mcg/actuation 2 inh inhalation Q6 PRN Shortness 01/09/22 10/05/22 aerosol inhaler Of Breath Or Wheezing atorvastatin 20 mg tablet 20 mg PO QAM 01/09/22 10/05/22 biotin 1 mg tablet 1 mg PO DAILY 01/09/22 10/05/22 buprenorphine 15 mcg/hour weekly 1 patch topical WK 01/09/22 10/05/22 transdermal patch carbidopa 25 mg-levodopa 100 mg 1 tab PO TID 01/09/22 10/05/22 tablet ergocalciferol (vitamin D2) 1,250 1,250 mcg PO WK 01/09/22 10/05/22 mcg (50,000 unit) capsule (Vitamin D2) fluticasone 100 mcg-salmeterol 50 1 inh inhalation BID 01/09/22 10/05/22 mcg/dose blistr powdr for inhalation (Advair Diskus) fluticasone propionate 50 2 spray intranasal DAILY 01/09/22 10/05/22 mcg/actuation nasal spray,suspension (Flonase Allergy Relief) hydroxyzine HCl 25 mg tablet 25 mg PO Q6 PRN ANXIETY/ITCHING 01/09/22 10/05/22 levothyroxine 50 mcg tablet 50 mcg PO DAILY 01/09/22 10/05/22 meclizine 25 mg tablet 25 mg PO TID PRN DIZZY 01/09/22 10/05/22 metoprolol tartrate 25 mg tablet 12.5 mg PO DAILY 01/09/22 10/05/22 montelukast 10 mg tablet 10 mg PO HS 01/09/22 10/05/22 potassium chloride 20 mEq oral See Rx Instructions .Route .COMPLEX 01/09/22 10/05/22 packet (Klor-Con) sennosides 8.6 mg-docusate sodium 1 tab-cap PO BID 01/09/22 10/05/22 50 mg tablet (Senna-S) thiamine HCl (vitamin B1) 100 mg 100 mg PO BID 01/09/22 10/05/22 tablet vit C 250 mg-vit E 90 mg-zinc 40 1 tab PO DAILY 01/09/22 10/05/22 mg-copper 1 [id number] capsule (PreserVision AREDS-2) ropinirole 1 mg tablet 1 mg PO TID 04/28/22 10/05/22 ropinirole 2 mg tablet 2 mg PO HS 04/28/22 10/05/22 furosemide 20 mg tablet 40 mg PO UD 07/22/22 10/05/22 mirtazapine 15 mg tablet 15 mg PO HS 07/22/22 10/05/22 Saccharomyces boulardii 250 mg 250 mg PO BID 10/03/22 10/05/22 capsule (Florastor) furosemide 20 mg tablet (Lasix) 20 mg PO DAILY PRN WT GAIN OF 3 10/03/22 10/05/22 LBS OR MORE omega-3 fatty acids 1,000 mg 1,000 mg PO DAILY 10/03/22 10/05/22 capsule omeprazole 40 mg capsule,delayed 40 mg PO DAILY 10/03/22 10/05/22 release oxycodone-acetaminophen 5 mg-325 1 tab PO Q8H PRN Pain (Scale Score 10/03/22 10/05/22 mg tablet (Percocet) 4-10) warfarin 2 mg tablet 2 mg PO Q OTHER DAY 10/03/22 10/05/22 warfarin 4 mg tablet 4 mg PO Q OTHER DAY 10/03/22 10/05/22 Results & Data (ED) Vital Signs Vital Signs - 24 hr 10/05/22 11:12 10/05/22 11:12 10/05/22 13:13 Temperature 36.9 C 36.9 C Temperature Source Oral Oral Pulse Rate 82 85 Pulse Rate [Right Finger] 82 Pulse Rate from SpO2 Sensor Pulse Rhythm Regular Pulse Rhythm [Right Finger] Regular Pulse Strength Normal Pulse Strength [Right Finger] Normal Respiratory Rate 16 16 16 Respiratory Effort / Characteristics Non-Labored Spontaneous Non-Labored Spontaneous Respiratory Depth Normal Normal Blood Pressure 115/70 Blood Pressure [Left Arm] 115/70 Blood Pressure Mean 85 Blood Pressure Mean [Left Arm] 85 Blood Pressure Position Lying Blood Pressure Position [Left Arm] Lying Pulse Oximetry 98 98 92 Oxygen Delivery Method Room Air Room Air Room Air Sepsis Recent Fever Within 48 Hours Yes Sepsis New/Unexplained Change in Mental Status No Sepsis Action Taken by Nursing No Action Required 10/05/22 11:53 10/05/22 12:00 10/05/22 12:15 Temperature Temperature Source Pulse Rate 79 87 79 Pulse Rate [Right Finger] Pulse Rate from SpO2 Sensor 89 87 86 Pulse Rhythm Pulse Rhythm [Right Finger] Pulse Strength Pulse Strength [Right Finger] Respiratory Rate 16 13 17 Respiratory Effort / Characteristics Respiratory Depth Blood Pressure Blood Pressure [Left Arm] Blood Pressure Mean Blood Pressure Mean [Left Arm] Blood Pressure Position Blood Pressure Position [Left Arm] Pulse Oximetry 99 99 100 Oxygen Delivery Method Sepsis Recent Fever Within 48 Hours Sepsis New/Unexplained Change in Mental Status Sepsis Action Taken by Nursing 10/05/22 12:30 10/05/22 12:45 10/05/22 13:00 Temperature Temperature Source Pulse Rate 86 86 Pulse Rate [Right Finger] Pulse Rate from SpO2 Sensor 89 86 Pulse Rhythm Pulse Rhythm [Right Finger] Pulse Strength Pulse Strength [Right Finger] Respiratory Rate 13 19 8 L Respiratory Effort / Characteristics Respiratory Depth Blood Pressure Blood Pressure [Left Arm] Blood Pressure Mean Blood Pressure Mean [Left Arm] Blood Pressure Position Blood Pressure Position [Left Arm] Pulse Oximetry 100 98 Oxygen Delivery Method Sepsis Recent Fever Within 48 Hours Sepsis New/Unexplained Change in Mental Status Sepsis Action Taken by Nursing 10/05/22 13:04 10/05/22 13:04 10/05/22 13:15 Temperature Temperature Source Pulse Rate 86 Pulse Rate [Right Finger] Pulse Rate from SpO2 Sensor 86 86 Pulse Rhythm Pulse Rhythm [Right Finger] Pulse Strength Pulse Strength [Right Finger] Respiratory Rate 14 21 Respiratory Effort / Characteristics Respiratory Depth Blood Pressure 103/61 Blood Pressure [Left Arm] Blood Pressure Mean 75 Blood Pressure Mean [Left Arm] Blood Pressure Position Blood Pressure Position [Left Arm] Pulse Oximetry 98 92 Oxygen Delivery Method Sepsis Recent Fever Within 48 Hours Sepsis New/Unexplained Change in Mental Status Sepsis Action Taken by Nursing 10/05/22 13:30 10/05/22 13:30 10/05/22 13:45 Temperature Temperature Source Pulse Rate 73 87 Pulse Rate [Right Finger] Pulse Rate from SpO2 Sensor 88 87 Pulse Rhythm Pulse Rhythm [Right Finger] Pulse Strength Pulse Strength [Right Finger] Respiratory Rate 23 23 Respiratory Effort / Characteristics Respiratory Depth Blood Pressure 93/52 L Blood Pressure [Left Arm] Blood Pressure Mean 65 Blood Pressure Mean [Left Arm] Blood Pressure Position Blood Pressure Position [Left Arm] Pulse Oximetry 93 93 Oxygen Delivery Method Sepsis Recent Fever Within 48 Hours Sepsis New/Unexplained Change in Mental Status Sepsis Action Taken by Nursing 10/05/22 14:00 10/05/22 14:00 10/05/22 14:15 Temperature Temperature Source Pulse Rate 69 77 Pulse Rate [Right Finger] Pulse Rate from SpO2 Sensor 85 85 Pulse Rhythm Pulse Rhythm [Right Finger] Pulse Strength Pulse Strength [Right Finger] Respiratory Rate 25 H 23 Respiratory Effort / Characteristics Respiratory Depth Blood Pressure 109/57 L Blood Pressure [Left Arm] Blood Pressure Mean 74 Blood Pressure Mean [Left Arm] Blood Pressure Position Blood Pressure Position [Left Arm] Pulse Oximetry 92 93 Oxygen Delivery Method Sepsis Recent Fever Within 48 Hours Sepsis New/Unexplained Change in Mental Status Sepsis Action Taken by Nursing 10/05/22 14:30 10/05/22 14:30 10/05/22 14:45 Temperature Temperature Source Pulse Rate 72 86 Pulse Rate [Right Finger] Pulse Rate from SpO2 Sensor 86 85 Pulse Rhythm Pulse Rhythm [Right Finger] Pulse Strength Pulse Strength [Right Finger] Respiratory Rate 20 24 Respiratory Effort / Characteristics Respiratory Depth Blood Pressure 119/62 Blood Pressure [Left Arm] Blood Pressure Mean 81 Blood Pressure Mean [Left Arm] Blood Pressure Position Blood Pressure Position [Left Arm] Pulse Oximetry 97 90 Oxygen Delivery Method Sepsis Recent Fever Within 48 Hours Sepsis New/Unexplained Change in Mental Status Sepsis Action Taken by Nursing Laboratory Data 10/05/22 11:46 10/05/22 11:46 Lab Results 10/05/22 10/05/22 10/05/22 Range/Units 11:30 11:46 11:46 WBC 7.62 (4.8-10.8) K/ul RBC 3.33 L (4.20-5.40) M/uL Hgb 8.8 L (12.0-16.0) g/dl Hct 27.8 L (37.0-47.0) % MCV 83.5 (80.0-100.0) fL MCH 26.4 (25.0-34.0) pg MCHC 31.7 L (32.0-36.0) g/dL RDW Std Deviation 50.9 H (36.4-46.3) fL RDW Coeff of Neftaly 16.8 H (11.5-14.5) % Plt Count 269 (130-400) K/uL MPV 10.6 (9.4-12.4) fL Immature Gran % (Auto) 1.0 % Neut % (Auto) 73.7 % Lymph % (Auto) 12.2 % Richardson % (Auto) 11.8 % Eos % (Auto) 0.8 % Baso % (Auto) 0.5 % Neut # (Auto) 5.61 (1.40-6.50) K/uL Lymph # (Auto) 0.93 L (1.2-3.4) K/uL Richardson # (Auto) 0.90 H (0.11-0.59) K/uL Eos # (Auto) 0.06 (0-0.50) K/uL Baso # (Auto) 0.04 (0-0.2) K/uL Immature Gran # (Auto) 0.08 (0.01-0.20) K/uL Sodium 139 (136-145) mmol/L Potassium 3.6 (3.5-5.1) mmol/L Chloride 106 (98-107) mmol/L Carbon Dioxide 26 (21-32) mmol/L Anion Gap 7 (3-11) BUN 12 (6-23) mg/dl Creatinine 0.75 (0.6-1.2) mg/dl Est Cr Clr Drug Dosing 61.8 ml/min Est GFR ( Amer) 92.3 ml/min Est GFR (Non-Af Amer) 79.6 ml/min BUN/Creatinine Ratio 16.0 (10-20) Glucose 89 (70-99(Fasting)) mg/dl Lactate (0.4-2.0) mmol/L Calcium 9.4 (8.6-10.3) mg/dl Magnesium 1.8 (1.7-2.4) mg/dl Total Bilirubin 0.4 (0.2-1.0) mg/dl Direct Bilirubin 0.1 (0-0.2) mg/dl AST 10 L (13-39) U/L ALT 3 L (7-52) U/L Alkaline Phosphatase 146 H (34-104) U/L Troponin I High Sens 6.6 (0-14) pg/ml Total Protein 6.6 (6.0-8.3) gm/dl Albumin 3.8 (3.4-5.0) gm/dl Lipase (11-82) U/L Procalcitonin (0-0.5) ng/ml Urine Color Urine Appearance (Clear) Urine pH (4.5-7.5) Ur Specific Seltzer (1.000-1.030) Urine Protein (Negative) Urine Glucose (UA) (Negative) Urine Ketones (Negative) Urine Blood (Negative) Urine Nitrite (Negative) Urine Bilirubin (Negative) Urine Urobilinogen (Negative) Ur Leukocyte Esterase (Negative) SARS-CoV-2, RNA, NAAT NEGATIVE (NEGATIVE) 10/05/22 10/05/22 10/05/22 Range/Units 11:46 11:46 11:46 WBC (4.8-10.8) K/ul RBC (4.20-5.40) M/uL Hgb (12.0-16.0) g/dl Hct (37.0-47.0) % MCV (80.0-100.0) fL MCH (25.0-34.0) pg MCHC (32.0-36.0) g/dL RDW Std Deviation (36.4-46.3) fL RDW Coeff of Neftaly (11.5-14.5) % Plt Count (130-400) K/uL MPV (9.4-12.4) fL Immature Gran % (Auto) % Neut % (Auto) % Lymph % (Auto) % Richardson % (Auto) % Eos % (Auto) % Baso % (Auto) % Neut # (Auto) (1.40-6.50) K/uL Lymph # (Auto) (1.2-3.4) K/uL Richardson # (Auto) (0.11-0.59) K/uL Eos # (Auto) (0-0.50) K/uL Baso # (Auto) (0-0.2) K/uL Immature Gran # (Auto) (0.01-0.20) K/uL Sodium (136-145) mmol/L Potassium (3.5-5.1) mmol/L Chloride (98-107) mmol/L Carbon Dioxide (21-32) mmol/L Anion Gap (3-11) BUN (6-23) mg/dl Creatinine (0.6-1.2) mg/dl Est Cr Clr Drug Dosing ml/min Est GFR ( Amer) ml/min Est GFR (Non-Af Amer) ml/min BUN/Creatinine Ratio (10-20) Glucose (70-99(Fasting)) mg/dl Lactate 1.0 (0.4-2.0) mmol/L Calcium (8.6-10.3) mg/dl Magnesium (1.7-2.4) mg/dl Total Bilirubin (0.2-1.0) mg/dl Direct Bilirubin (0-0.2) mg/dl AST (13-39) U/L ALT (7-52) U/L Alkaline Phosphatase (34-104) U/L Troponin I High Sens (0-14) pg/ml Total Protein (6.0-8.3) gm/dl Albumin (3.4-5.0) gm/dl Lipase 20 (11-82) U/L Procalcitonin < 0.05 (0-0.5) ng/ml Urine Color Urine Appearance (Clear) Urine pH (4.5-7.5) Ur Specific Seltzer (1.000-1.030) Urine Protein (Negative) Urine Glucose (UA) (Negative) Urine Ketones (Negative) Urine Blood (Negative) Urine Nitrite (Negative) Urine Bilirubin (Negative) Urine Urobilinogen (Negative) Ur Leukocyte Esterase (Negative) SARS-CoV-2, RNA, NAAT (NEGATIVE) 10/05/22 Range/Units 13:04 WBC (4.8-10.8) K/ul RBC (4.20-5.40) M/uL Hgb (12.0-16.0) g/dl Hct (37.0-47.0) % MCV (80.0-100.0) fL MCH (25.0-34.0) pg MCHC (32.0-36.0) g/dL RDW Std Deviation (36.4-46.3) fL RDW Coeff of Neftaly (11.5-14.5) % Plt Count (130-400) K/uL MPV (9.4-12.4) fL Immature Gran % (Auto) % Neut % (Auto) % Lymph % (Auto) % Richardson % (Auto) % Eos % (Auto) % Baso % (Auto) % Neut # (Auto) (1.40-6.50) K/uL Lymph # (Auto) (1.2-3.4) K/uL Richardson # (Auto) (0.11-0.59) K/uL Eos # (Auto) (0-0.50) K/uL Baso # (Auto) (0-0.2) K/uL Immature Gran # (Auto) (0.01-0.20) K/uL Sodium (136-145) mmol/L Potassium (3.5-5.1) mmol/L Chloride (98-107) mmol/L Carbon Dioxide (21-32) mmol/L Anion Gap (3-11) BUN (6-23) mg/dl Creatinine (0.6-1.2) mg/dl Est Cr Clr Drug Dosing ml/min Est GFR ( Amer) ml/min Est GFR (Non-Af Amer) ml/min BUN/Creatinine Ratio (10-20) Glucose (70-99(Fasting)) mg/dl Lactate (0.4-2.0) mmol/L Calcium (8.6-10.3) mg/dl Magnesium (1.7-2.4) mg/dl Total Bilirubin (0.2-1.0) mg/dl Direct Bilirubin (0-0.2) mg/dl AST (13-39) U/L ALT (7-52) U/L Alkaline Phosphatase (34-104) U/L Troponin I High Sens (0-14) pg/ml Total Protein (6.0-8.3) gm/dl Albumin (3.4-5.0) gm/dl Lipase (11-82) U/L Procalcitonin (0-0.5) ng/ml Urine Color Yellow Urine Appearance Clear (Clear) Urine pH 5.5 (4.5-7.5) Ur Specific Seltzer 1.010 (1.000-1.030) Urine Protein Negative (Negative) Urine Glucose (UA) Negative (Negative) Urine Ketones Negative (Negative) Urine Blood Negative (Negative) Urine Nitrite Negative (Negative) Urine Bilirubin Negative (Negative) Urine Urobilinogen Negative (Negative) Ur Leukocyte Esterase Negative (Negative) SARS-CoV-2, RNA, NAAT (NEGATIVE) Administered Medications Daptomycin 350 mg/ Syringe 7 mls @ 3.5 mls/min IV Q24H [facility]; Protocol Stop: 10/12/22 12:14 Last Admin: 10/05/22 13:30 Dose: 3.5 mls/min Documented By: KIRSTEN Acetaminophen (Ofirmev) 1,000 mg in 100 mls @ 400 mls/hr IV Q8H PRN PRN Reason: Fever Stop: 10/08/22 17:20 Last Admin: 10/05/22 17:52 Dose: 400 mls/hr Documented By: TANK Oxycodone/Acetaminophen (Oxycodone/Acetaminophen 5mg/325mg Tab) 1 tab PO Q8H PRN PRN Reason: Pain (Scale Score 4-10) Stop: 10/19/22 16:54 Last Admin: 10/05/22 18:35 Dose: 1 tab Documented By: TANK Discontinued Medications Sodium Chloride (Nss) 500 mls @ 999 mls/hr IV .Q31M ONE Stop: 10/05/22 12:37 Last Infusion: 10/05/22 14:22 Dose: 0 mls/hr Documented By: Admin: 10/05/22 12:22 Dose: 999 mls/hr Documented By: KIRSTEN Acetaminophen (Ofirmev) 1,000 mg in 100 mls @ 400 mls/hr IV NOW STA Stop: 10/05/22 12:21 Last Infusion: 10/05/22 14:22 Dose: 0 mls/hr Documented By: Admin: 10/05/22 12:21 Dose: 400 mls/hr Documented By: KIRSTEN Piperacillin Sod/Tazobactam Sod (Zosyn) 4.5 gm in 120 mls @ 240 mls/hr IV NOW ONE Stop: 10/05/22 12:39 Last Infusion: 10/05/22 14:22 Dose: 0 mls/hr Documented By: Admin: 10/05/22 13:42 Dose: 240 mls/hr Documented By: KIRSTEN Lorazepam (Lorazepam 1 Mg Tab) 0.5 mg SL NOW STA Stop: 10/05/22 12:08 Last Admin: 10/05/22 12:20 Dose: 0.5 mg Documented By: KIRSTEN Morphine Sulfate (Morphine Sulfate 2 Mg/Ml Carp) 2 mg IV NOW STA Stop: 10/05/22 12:08 Last Admin: 10/05/22 12:20 Dose: 2 mg Documented By: KIRSTEN Oxycodone HCl (Oxycodone Hcl Ir 5 Mg Tab (Immediate Release)) 5 mg PO NOW STA Stop: 10/05/22 15:21 Last Admin: 10/05/22 15:38 Dose: 5 mg Documented By: KIRSTEN Imaging Data Radiologist's Impression: Chest X-Ray 10/05/22 11:10 XR chest 1V portable HISTORY: Sepsis COMPARISON: Chest 10/03/2022. FINDINGS: No pneumothorax. No pleural effusions. The cardiac silhouette remains mildly enlarged. The lungs are clear. Degenerative changes again noted within the shoulders. IMPRESSION: No significant change compared to the prior study. No acute process. ACT 112: Negative or not required by law. Electronically signed by: Tavares Jaramillo M.D. 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
--- NOTE | 2022-10-05 14:50 | History & Physical Report ---
Date of Service October 05, 2022 Assessment & Plan (1) Bacteremia: Plan: Cultures taken on 10/03/2022 in the emergency room developed 1 out of 2 bottle for gram-negative bacilli in the serologies positive for Bacteroides fragilis She complains to have diarrhea for the last 1 to 2 weeks She continued to have fever following discharge from the ER yesterday and she was called back in for IV antibiotic She looks very ill with fever and shakes during examination Repeat blood cultures have been taken and she has been started with intravenous Zosyn and daptomycin to cover possible leg cellulitis as well (2) Fever: Plan: She will be given intravenous Tylenol to control the pain and fever (3) Bilateral lower leg cellulitis: Plan: - Admit to [facility] telemetry for IV antibiotic therapy - Serology positive for Bacteroides fragilis- concern for contamination vs bacteremia - Follow blood cultures, preliminary results are showing gram-negative rods in anaerobic bottle from 10/03, follow final results. Repeat blood cultures drawn today prior to abx - IV antibiotic therapy with daptomycin and Zosyn IV initiated, will continue - WBC 7.62, afebrile here Chronic leg edema with known lymphedema Condition has been worsened over the last week or so with increasing swelling Legs are very edematous and warm to touch with tenderness Antibiotics have been started with intravenous Zosyn and vancomycin Will be given additional doses of Lasix to take out some of the fluid as well (4) Anemia: Plan: -History of iron infusion on 10/03 at [facility], was transported to the ER on 10/03 after developing a fever after infusion. 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, PT/OT consults - Pt has associated chronic pain syndrome and is on buprenorphine, oxycodone/APAP 3/325 [id number] dose of morphine sulfate IV 2 mg in the ER along with Ativan with slight improvement, will give dose of oxycodone IR now x1 - PDMP reviewed (7) Paroxysmal SVT (supraventricular tachycardia): Plan: - History of such, EKG reviewed, difficult to chart to determine on monitor due to patient shivering, restless leg, missed afternoon dose of Requip and being anxious - Continue on warfarin daily with alternating doses of 2 mg and 4 mg - INR = 2.2 on admission (8) Gastroparesis: Plan: - Noted, pt reports being on probiotic, notes having soft BM today and possible diarrhea - If worsening then would check c. diff, no recent antibiotic use however (9) Hypothyroidism: Plan: - Continue levothyroxine 50 mcg daily DVT ppx: warfarin CODE: Full code Dispo: From [facility], likely to remain in the hospital 1-2d A total of 77 minutes were spent with greater than 50% of that time face to face with the patient, personally reviewing all current laboratories, imaging studies, past medication reconciliation, outpatient chart review, and discussion with specialists to collaborate care for the patient with attending. Please see attending documentation for corrections and/or additions. History of Present Illness Primary Care Provider: [facility] This is a 72-year-old female who is a resident of [facility], who has a history of thoracic aneurysm, HTN, CHF, paroxysmal SVT, HLD, Erler Danlos syndrome, DM type II, history of gastric bypass and malabsorption issues, gastroparesis, Anemia, Parkinson's disease, restless leg syndrome, BRANDIE on CPAP, asthma, secondary hyperparathyroidism, who presents to the ER due to positive blood culture on serology for Bacteroides fragilis resulting on 10/04/2022. Physician at [facility] was made aware and recommended that she return to the ER for IV antibiotic therapy. She was seen here at [facility] where she underwent an iron infusion on 10/03 and afterwards developed a fever of 101.3 at home. She received a visit from [facility] [place] nurse yesterday in follow-up, where it was noted that she had increased edema with lymphedema, 3+ pitting was noted on exam, and she weighed 160.2 pounds at that time. There was concern that the medial RLE was red and hot to touch although the patient denied pain at that point. She has been taking alternating lasix 40 amd 60 mg per day to help with reducing the amount of fluid in her legs with chronic lymphedema. Pt reports that she does walk with a rollator. Pt reports chronic pain and uses buprenorphine 15 mcg patch daily along with oxycodone/APAP 5/325 every 8 hours. She thinks that her legs are more painful today. She also complains of pains in her hips, her shoulders bilaterally and her arms. She denies any recent falls or trauma to any of these areas. She is very anxious, reporting that she had received relief with taking an Ativan in the ER earlier. She is asking for something additional for pain. Patient denies any acute changes in her breathing or chest pain. She denies any lightheadedness or dizziness. Patient denies any documented/known fevers since the one the other day, but reports that she is very cold and is currently under a electric blanket brought from [facility]. Patient notes that she had slight diarrhea today, baseline takes stool softener and a probiotic. She denies any other acute illness like symptoms. Allergies Allergy/AdvReac Type Severity Reaction Status Date / Time ammonia Allergy Severe FACE, Verified 10/03/22 22:04 LIPS, TONGUE EDEMA buspirone Allergy Severe NEURO Verified 10/03/22 22:04 COMPLICATIONS duloxetine Allergy Intermediate RASH Verified 10/03/22 22:04 ITCHING lisinopril Allergy Intermediate cough Verified 10/03/22 22:04 adhesive Allergy Mild skin tears Verified 10/03/22 22:04 NSAIDS (Non-Steroidal Allergy Unknown not Verified 10/03/22 22:04 Anti-Inflamma supposed to use-S/P GASTRIC BYPASS vancomycin Allergy Unknown ON [facility] Verified 10/03/22 22:04 MED LIST venlafaxine Allergy Unknown AFFECTS Verified 10/03/22 22:04 LEGS diphenhydramine AdvReac Intermediate RESTLESS Verified 10/03/22 22:04 LEGS gabapentin AdvReac Intermediate MUSCLE Verified 10/03/22 22:04 STIFFNESS Home Medications Medication Instructions Recorded Confirmed Type albuterol sulfate 90 mcg/actuation 2 inh inhalation Q6 PRN Shortness 01/09/22 10/05/22 History aerosol inhaler Of Breath Or Wheezing atorvastatin 20 mg tablet 20 mg PO QAM 01/09/22 10/05/22 History biotin 1 mg tablet 1 mg PO DAILY 01/09/22 10/05/22 History buprenorphine 15 mcg/hour weekly 1 patch topical WK 01/09/22 10/05/22 History transdermal patch carbidopa 25 mg-levodopa 100 mg 1 tab PO TID 01/09/22 10/05/22 History tablet ergocalciferol (vitamin D2) 1,250 1,250 mcg PO WK 01/09/22 10/05/22 History mcg (50,000 unit) capsule (Vitamin D2) fluticasone 100 mcg-salmeterol 50 1 inh inhalation BID 01/09/22 10/05/22 History mcg/dose blistr powdr for inhalation (Advair Diskus) fluticasone propionate 50 2 spray intranasal DAILY 01/09/22 10/05/22 History mcg/actuation nasal spray,suspension (Flonase Allergy Relief) hydroxyzine HCl 25 mg tablet 25 mg PO Q6 PRN ANXIETY/ITCHING 01/09/22 10/05/22 History levothyroxine 50 mcg tablet 50 mcg PO DAILY 01/09/22 10/05/22 History meclizine 25 mg tablet 25 mg PO TID PRN DIZZY 01/09/22 10/05/22 History metoprolol tartrate 25 mg tablet 12.5 mg PO DAILY 01/09/22 10/05/22 History montelukast 10 mg tablet 10 mg PO HS 01/09/22 10/05/22 History potassium chloride 20 mEq oral See Rx Instructions .Route .COMPLEX 01/09/22 10/05/22 History packet (Klor-Con) sennosides 8.6 mg-docusate sodium 1 tab-cap PO BID 01/09/22 10/05/22 History 50 mg tablet (Senna-S) thiamine HCl (vitamin B1) 100 mg 100 mg PO BID 01/09/22 10/05/22 History tablet vit C 250 mg-vit E 90 mg-zinc 40 1 tab PO DAILY 01/09/22 10/05/22 History mg-copper 1 qy-vwruws-moiwom capsule (PreserVision AREDS-2) ropinirole 1 mg tablet 1 mg PO TID 04/28/22 10/05/22 History ropinirole 2 mg tablet 2 mg PO HS 04/28/22 10/05/22 History furosemide 20 mg tablet 40 mg PO UD 07/22/22 10/05/22 History mirtazapine 15 mg tablet 15 mg PO HS 07/22/22 10/05/22 History Saccharomyces boulardii 250 mg 250 mg PO BID 10/03/22 10/05/22 History capsule (Florastor) furosemide 20 mg tablet (Lasix) 20 mg PO DAILY PRN WT GAIN OF 3 10/03/22 10/05/22 History LBS OR MORE omega-3 fatty acids 1,000 mg 1,000 mg PO DAILY 10/03/22 10/05/22 History capsule omeprazole 40 mg capsule,delayed 40 mg PO DAILY 10/03/22 10/05/22 History release oxycodone-acetaminophen 5 mg-325 1 tab PO Q8H PRN Pain (Scale Score 10/03/22 10/05/22 History mg tablet (Percocet) 4-10) warfarin 2 mg tablet 2 mg PO Q OTHER DAY 10/03/22 10/05/22 History warfarin 4 mg tablet 4 mg PO Q OTHER DAY 10/03/22 10/05/22 History Past Med/Surg History Medical History (Updated 10/05/22 @ 15:49 by Katy Nair PA-C) Abdominal hernia Acute exacerbation of chronic low back pain ADHD Anemia Asthma uses PRN INH 3-4 x wk Bulging of intervertebral disc Claustrophobia Coagulopathy Difficult intravenous access Dysphagia Edenilson-Danlos syndrome Fibromyalgia ISAC (generalized anxiety disorder) Gastroparesis GERD (gastroesophageal reflux disease) Hearing deficit History of colon polyps History of colon polyps History of DVT (deep vein thrombosis) chronic anticoagulation History of intestinal obstruction Hyperlipidemia Hypokalemia Hypothyroidism Opioid dependence Osteoarthritis Osteoporosis Peripheral neuropathy Protein C deficiency Pulmonary embolism 07/2018 - treated w/ lovenox - unk etiology Recurrent falls Renal cyst Restless leg syndrome Sleep apnea unable to tolerate CPAP Tachycardia Thoracic aortic aneurysm follows w/ Dr. Arredondo - evaluated within last 6 mo Thyroid nodule Weakness Surgical History History of abdominoplasty + hernia repair History of arthroscopy of left knee History of bilateral breast reduction surgery History of cholecystectomy History of colonoscopy History of esophagogastroduodenoscopy (EGD) History of gastric bypass History of intestinal surgery History of laparotomy History of left knee replacement History of right knee joint replacement History of tonsillectomy Hx of melanoma excision shoulder S/P hysterectomy Self extubation attempted post gastric bypass Status post biopsy of thyroid gland benign Family History Uncle Stomach cancer Other No family history of adverse response to anesthesia No pertinent family history in first degree relatives Social History Smoking Status: Unknown if ever smoked Second Hand Exposure: No; Hx Alcohol Use: No Hx Substance Use: No Preferred Language: Luxembourger Communication Ability: Effective Communication Ability Comment: pt is obtunded Visual Impairment: Limited Hearing Ability: Normal 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 Beliefs That Will Affect Care: None marital status: Single Current Living Situation: Jail Current Living Situation Comment: has friends to help when needed How many Children do You have: 0 Feels Safe at Home: Yes Assistive Devices: Walker Review of Systems Review of Systems: Constitutional: As per HPI Eyes: No diplopia, no worsening or blurred vision ENT: normal hearing, no trouble swallowing Respiratory: No cough, sputum, dyspnea at rest or on exertion Cardiovascular: No chest pain, tightness or palpitations Abdomen: No pain, nausea, vomiting, diarrhea or constipation Musculoskeletal: + Chronic pain, + bilateral hip joint pain, bilateral lower leg pain, no specific calf pain, significant swelling and lymphedema Neurologic: No weakness, numbness/tingling, or balance problems Psychiatric: + Anxiety, no depression Skin: No rash or itch, + bright red skin of her bilateral lower legs Physical Exam Physical Exam: General: awake, alert, + covered in multiple blankets, blanket over her head as she reports she is very cold, + very anxious, + tearful at times Head: Normocephalic, atraumatic ENT: PERRL, EOMI, no pharyngeal exudate, mucous membranes moist Chest: Clear to auscultation, on room air, no adventitious breath sounds Cardiac: Regular rate and rhythm, + CELINA grade 3/6, no JVD, normal peripheral pulses, good capillary refill Back: buprenorphine patch on right upper shoulder Abdominal: NABS x 4 quadrants, soft, nondistended, nontender to palpation, no rebound or guarding Extremities:Lymphedema bilateral lower extremities, + bright red erythema, 3+ pitting, entire leg tender to light palpation bilaterally Psych: Anxious and tearful throughout exam Neuro: AAO x 3, strength intact bilaterally and rated 4/5, no motor deficits, speech is clear, no peripheral sensory deficits Results & Data Results & Data Vital Signs (Past 12 Hours) Vital Signs Temp Pulse Pulse Resp BP BP Pulse Ox 10/05/22 13:04 103/61 10/05/22 13:04 14 98 10/05/22 13:00 86 8 L 98 10/05/22 12:45 86 19 10/05/22 12:30 13 100 10/05/22 12:15 79 17 100 10/05/22 12:00 87 13 99 10/05/22 11:53 79 16 99 10/05/22 13:13 85 16 92 10/05/22 11:12 36.9 C 82 16 115/70 98 10/05/22 11:12 36.9 C 82 16 115/70 98 O2 Del Method 10/05/22 13:04 10/05/22 13:04 10/05/22 13:00 10/05/22 12:45 10/05/22 12:30 10/05/22 12:15 10/05/22 12:00 10/05/22 11:53 10/05/22 13:13 Room Air 10/05/22 11:12 Room Air 10/05/22 11:12 Room Air Laboratory Results 10/05/22 12:39 Aerobic Blood Culture - Pending Blood Anaerobic Blood Culture - Pending 10/05/22 11:46 Aerobic Blood Culture - Pending Blood Anaerobic Blood Culture - Pending 10/05/22 10/05/22 10/05/22 13:04 11:46 11:46 WBC RBC Hgb Hct MCV MCH MCHC RDW Std Deviation RDW Coeff of [place]aly Plt Count MPV Immature Gran % (Auto) Neut % (Auto) Lymph % (Auto) [place] % (Auto) Eos % (Auto) Baso % (Auto) Neut # (Auto) Lymph # (Auto) Perkins # (Auto) Eos # (Auto) Baso # (Auto) Immature Gran # (Auto) Sodium Potassium Chloride Carbon Dioxide Anion Gap BUN Creatinine Est Cr Clr Drug Dosing Est GFR ( Amer) Est GFR (Non-Af Amer) BUN/Creatinine Ratio Glucose Lactate Calcium Magnesium Total Bilirubin Direct Bilirubin AST ALT Alkaline Phosphatase Troponin I High Sens Total Protein Albumin Lipase 20 Procalcitonin < 0.05 Urine Color Yellow Urine Appearance Clear Urine pH 5.5 Ur Specific [place] 1.010 Urine Protein Negative Urine Glucose (UA) Negative Urine Ketones Negative Urine Blood Negative Urine Nitrite Negative Urine Bilirubin Negative Urine Urobilinogen Negative Ur Leukocyte Esterase Negative SARS-CoV-2, RNA, NAAT 10/05/22 10/05/22 10/05/22 11:46 11:46 11:46 WBC 7.62 RBC 3.33 L Hgb 8.8 L Hct 27.8 L MCV 83.5 MCH 26.4 MCHC 31.7 L RDW Std Deviation 50.9 H RDW Coeff of [place] 16.8 H Plt Count 269 MPV 10.6 Immature Gran % (Auto) 1.0 Neut % (Auto) 73.7 Lymph % (Auto) 12.2 Perkins % (Auto) 11.8 Eos % (Auto) 0.8 Baso % (Auto) 0.5 Neut # (Auto) 5.61 Lymph # (Auto) 0.93 L Perkins # (Auto) 0.90 H Eos # (Auto) 0.06 Baso # (Auto) 0.04 Immature Gran # (Auto) 0.08 Sodium 139 Potassium 3.6 Chloride 106 Carbon Dioxide 26 Anion Gap 7 BUN 12 Creatinine 0.75 Est Cr Clr Drug Dosing 61.8 Est GFR ( Amer) 92.3 Est GFR (Non-Af Amer) 79.6 BUN/Creatinine Ratio 16.0 Glucose 89 Lactate 1.0 Calcium 9.4 Magnesium 1.8 Total Bilirubin 0.4 Direct Bilirubin 0.1 AST 10 L ALT 3 L Alkaline Phosphatase 146 H Troponin I High Sens 6.6 Total Protein 6.6 Albumin 3.8 Lipase Procalcitonin Urine Color Urine Appearance Urine pH Ur Specific [place] Urine Protein Urine Glucose (UA) Urine Ketones Urine Blood Urine Nitrite Urine Bilirubin Urine Urobilinogen Ur Leukocyte Esterase SARS-CoV-2, RNA, NAAT 10/05/22 11:30 WBC RBC Hgb Hct MCV MCH MCHC RDW Std Deviation RDW Coeff of [place] Plt Count MPV Immature Gran % (Auto) Neut % (Auto) Lymph % (Auto) [place] % (Auto) Eos % (Auto) Baso % (Auto) Neut # (Auto) Lymph # (Auto) Perkins # (Auto) Eos # (Auto) Baso # (Auto) Immature Gran # (Auto) Sodium Potassium Chloride Carbon Dioxide Anion Gap BUN Creatinine Est Cr Clr Drug Dosing Est GFR ( Amer) Est GFR (Non-Af Amer) BUN/Creatinine Ratio Glucose Lactate Calcium Magnesium Total Bilirubin Direct Bilirubin AST ALT Alkaline Phosphatase Troponin I High Sens Total Protein Albumin Lipase Procalcitonin Urine Color Urine Appearance Urine pH Ur Specific [place] Urine Protein Urine Glucose (UA) Urine Ketones Urine Blood Urine Nitrite Urine Bilirubin Urine Urobilinogen Ur Leukocyte Esterase SARS-CoV-2, RNA, NAAT NEGATIVE Diagnostic Findings Chest X-Ray 10/05/22 11:10 XR chest 1V portable HISTORY: Sepsis COMPARISON: Chest 10/03/2022. FINDINGS: No pneumothorax. No pleural effusions. The cardiac silhouette remains mildly enlarged. The lungs are clear. Degenerative changes again noted within the shoulders. IMPRESSION: No significant change compared to the prior study. No acute process. ACT 112: Negative or not required by law. Electronically signed by: Tavares Jaramillo M.D. 10/05/2022 11:34 AM ECG Additional Comments: Blood Pressure : / mmHG Vent. Rate : 084 BPM Atrial Rate : 084 BPM P-R Int : 196 ms QRS Dur : 100 ms QT Int : 378 ms P-R-T Axes : 028 -18 002 degrees QTc Int : 446 ms Poor data quality, interpretation may be adversely affected Normal sinus rhythm Minimal voltage criteria for LVH, may be normal variant Nonspecific ST abnormality Abnormal ECG When compared with ECG of 03-OCT-2022 21:58, No significant change was found Confirmed by Kaveh Carter ([id number]) on 10/05/2022 2:54:14 PM Code Status & VTE Plan Code Status Full code-discussed with the patient at bedside Supervising Physician Co-Signing Physician Notes Attending addendum The patient was seen and examined in medical telemetry unit Complains today of abdominal pain and bilateral leg pain with fever and chills On examination Very ill looking but remains hemodynamically stable Chest-clear to auscultate bilaterally Heart-S1-S2 regular Abdomen-soft, mildly tender on examination, bowel sound present [id number]+ edema bilaterally, legs are very tender to touch and also has increased local temperature PROJECT MGR-alert and awake Her admission labs, imaging studies and medication reviewed She has been started with intravenous Zosyn and daptomycin to cover for cellulitis and also bacteremia with Bacteroides fragilis Repeat blood cultures have been taken She will require medications to reduce fever and pain with IV Tylenol on top of her current medications Agree with assessment and plan as outlined above by Katy [place] (2) Fever Fever type: unspecified Qualified Code(s): R50.9 - Fever, unspecified
--- NOTE | 2022-10-05 14:54 | Electrocardiogram Report ---
Test Reason : Blood Pressure : / mmHG Vent. Rate : 084 BPM Atrial Rate : 084 BPM P-R Int : 196 ms QRS Dur : 100 ms QT Int : 378 ms P-R-T Axes : 028 -18 002 degrees QTc Int : 446 ms Poor data quality, interpretation may be adversely affected Normal sinus rhythm Minimal voltage criteria for LVH, may be normal variant Nonspecific ST abnormality Abnormal ECG When compared with ECG of 03-OCT-2022 21:58, No significant change was found Confirmed by Kaveh Carter ([id number]) on 10/05/2022 2:54:14 PM Referred By: Confirmed By:Kaveh Carter
[2022-10-05] MEDS ORDERED: oxyCODONE HCL IR 5 MG TAB (IMMEDIATE RELEASE) PO STA (15:20)
[2022-10-05 16:52] LABS: INR 3.2 (0.9-1.1); Prothrombin Time 32.3 Seconds (9.0-12.0)
[2022-10-05] MEDS ORDERED: ACETAMINOPHEN 325 MG TAB PO PRN (16:55)
[2022-10-05] MEDS ORDERED: POTASSIUM CHLORIDE PWD 20 MEQ PACK PO SCH (16:55)
[2022-10-05] MEDS: ACETAMINOPHEN 1,000 MG/100 ML VIAL IV PRN (17:52)
[2022-10-05] MEDS: oxyCODONE/ACETAMINOPHEN 5mg/325mg TAB PO PRN (18:35)
[2022-10-05] MEDS: PIPERACILLIN/TAZOBACTAM 3.375 GM in DEXTROSE 5% 100 ML IV SCH (20:19)
[2022-10-05] MEDS: WARFARIN SOD 4 MG TAB PO SCH (20:20)
[2022-10-05] MEDS: FUROSEMIDE 40 MG/4 ML VIAL IV SCH (20:20)
[2022-10-05] MEDS: rOPINIRole HCL 1 MG TABLET PO SCH (20:21)
[2022-10-05] MEDS: SACCHAROMYCES BOULARDII 250 MG CAP PO SCH (20:22)
[2022-10-05] MEDS: CARBIDOPA/LEVODOPA 25/100MG TAB PO SCH (20:23)
[2022-10-05] MEDS: MIRTAZAPINE TAB 15 MG TAB PO SCH (20:23)
[2022-10-05] MEDS: MONTELUKAST SODIUM 10 MG TABLET PO SCH (20:24)
[2022-10-05] MEDS: THIAMINE HCL 100 MG TAB PO SCH (20:24)
[2022-10-05] MEDS: POTASSIUM CHLORIDE PWD 20 MEQ PACK PO SCH (20:24)
[2022-10-05] MEDS: rOPINIRole HCL 2 MG TABLET PO SCH (20:25)
[2022-10-06] MEDS ORDERED: MoRPHine SULFATE 2 MG/ML CARP IV STA (00:06)
[2022-10-06] MEDS: PIPERACILLIN/TAZOBACTAM 3.375 GM in DEXTROSE 5% 100 ML IV SCH ×3 (02:37→20:37)
[2022-10-06] MEDS: LEVOTHYROXINE SODIUM 50 MCG TABLET PO SCH (06:17)
[2022-10-06 07:15] LABS: Hemoglobin 8.8 g/dl (12.0-16.0); Mean Corpuscular Hemoglobin 26.8 pg (25.0-34.0); Mean Corpuscular Hgb Conc 31.4 g/dL (32.0-36.0); Mean Corpuscular Volume 85.4 fL (80.0-100.0); Mean Platelet Volume 10.9 fL (9.4-12.4); Platelet Count 216 K/uL (130-400); RDW Coefficient of Variation 16.7 % (11.5-14.5); RDW Standard Deviation 52.1 fL (36.4-46.3); Red Blood Count 3.28 M/uL (4.20-5.40); White Blood Count 16.65 K/ul (4.8-10.8)
[2022-10-06 07:31] LABS: Anion Gap 11 (3-11); BUN Creatinine Ratio 12.8 (10-20); Blood Urea Nitrogen 11 mg/dl (6-23); Calcium 8.3 mg/dl (8.6-10.3); Carbon Dioxide 26 mmol/L (21-32); Chloride 103 mmol/L (98-107); Creatinine Clr Calc Pharmacy 54.8 ml/min; Est GFR (African American) 78.2 ml/min; Est GFR (Non-African American) 67.5 ml/min; Glucose 132 mg/dl (70-99(Fasting)); Potassium 2.9 mmol/L (3.5-5.1); Sodium 140 mmol/L (136-145)
[2022-10-06 07:35] LABS: Alanine Aminotransferase < 3 U/L (7-52); Albumin Level 3.1 gm/dl (3.4-5.0); Alkaline Phosphatase 116 U/L (34-104); Aspartate Aminotransferase 14 U/L (13-39); Bilirubin Direct 0.1 mg/dl (0-0.2); Bilirubin,Total 0.7 mg/dl (0.2-1.0); Total Protein 5.6 gm/dl (6.0-8.3)
[2022-10-06 07:51] LABS: INR 4.5 (0.9-1.1); Prothrombin Time 44.6 Seconds (9.0-12.0)
[2022-10-06] MEDS: rOPINIRole HCL 1 MG TABLET PO SCH ×3 (07:56→16:44)
[2022-10-06] MEDS: METOPROLOL TARTRATE 25 MG TAB PO SCH (07:56)
[2022-10-06] MEDS: FLUTICASONE PROPIONATE NA SPR 16 GM BTL SCH (07:56)
[2022-10-06] MEDS: PANTOprazole 40 MG TAB PO SCH (07:57)
[2022-10-06] MEDS: THIAMINE HCL 100 MG TAB PO SCH ×2 (07:57→20:38)
[2022-10-06] MEDS: CARBIDOPA/LEVODOPA 25/100MG TAB PO SCH ×3 (07:57→20:38)
[2022-10-06] MEDS: POTASSIUM CHLORIDE PWD 20 MEQ PACK PO SCH ×2 (07:58→20:38)
[2022-10-06] MEDS: ATORVASTATIN 20 MG TAB PO SCH (07:58)
[2022-10-06] MEDS: CEROVITE ADV FORMULA TAB PO SCH (07:58)
[2022-10-06] MEDS: SACCHAROMYCES BOULARDII 250 MG CAP PO SCH ×2 (07:58→20:39)
[2022-10-06] MEDS ORDERED: POTASSIUM CHLORIDE CRTAB 20 MEQ TABCR PO STA (07:59)
[2022-10-06] MEDS: FLUTICASONE/VILANTEROL 100/25MCG 14 PUFFS/INHALER INH SCH (07:59)
[2022-10-06] MEDS: FUROSEMIDE 40 MG/4 ML VIAL IV SCH (07:59)
[2022-10-06] MEDS: oxyCODONE/ACETAMINOPHEN 5mg/325mg TAB PO PRN ×2 (08:07→19:59)
[2022-10-06] MEDS ORDERED: FUROSEMIDE 40 MG TAB PO SCH (09:00)
[2022-10-06] MEDS: POTASSIUM CHLORIDE / WTR 10 MEQ/100 ML PLCT IV SCH ×2 (10:02→16:43)
[2022-10-06] MEDS: DAPTOmycin 350 MG in SYRINGE 0 ML IV SCH (12:24)
--- NOTE | 2022-10-06 13:47 | Hospitalist Progress Note ---
Date of Service October 06, 2022 Assessment & Plan (1) Bacteremia: Plan: Cultures taken on 10/03/2022 in the emergency room developed 1 out of 2 bottle for gram-negative bacilli in the serologies positive for Bacteroides fragilis She complains to have diarrhea for the last 1 to 2 weeks She continued to have fever following discharge from the ER yesterday and she was called back in for IV antibiotic She looks very ill with fever and shakes during examination Repeat blood cultures have been taken and she has been started with intravenous Zosyn and daptomycin to cover possible leg cellulitis as well Serology was positive for bacteroids fragilis but everything else was negative We will discontinue intravenous daptomycin Repeat blood cultures have been negative which were taken before administering antibiotics (2) Fever: Plan: She will be given intravenous Tylenol to control the pain and fever 1 episode for fever following admission but no more since then (3) Bilateral lower leg cellulitis: Plan: - Admit to [facility] telemetry for IV antibiotic therapy - Serology positive for Bacteroides fragilis- concern for contamination vs bacteremia - Follow blood cultures, preliminary results are showing gram-negative rods in anaerobic bottle from 10/03, follow final results. Repeat blood cultures drawn today prior to abx - IV antibiotic therapy with daptomycin and Zosyn IV initiated, will continue - WBC 7.62, afebrile here -Serology for the bacteria have been negative so we will discontinue intravenous daptomycin -Likely to give Augmentin for cellulitis and to cover transient Bacteroides fragilis Chronic leg edema with known lymphedema Condition has been worsened over the last week or so with increasing swelling Legs are very edematous and warm to touch with tenderness Antibiotics have been started with intravenous Zosyn and vancomycin Will be given additional doses of Lasix to take out some of the fluid as well Swelling of the legs have improved a lot following administration of Lasix We will change Lasix to oral from tomorrow (4) Anemia: Plan: -History of iron infusion on 10/03 at [facility], was transported to the ER on 10/03 after developing a fever after infusion. 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, PT/OT consults - Pt has associated chronic pain syndrome and is on buprenorphine, oxycodone/APAP 3/325 Q8E-mypihiyr dose of morphine sulfate IV 2 mg in the ER along with Ativan with slight improvement, will give dose of oxycodone IR now x1 - PDMP reviewed (7) Paroxysmal SVT (supraventricular tachycardia): Plan: - History of such, EKG reviewed, difficult to chart to determine on monitor due to patient shivering, restless leg, missed afternoon dose of Requip and being anxious - Continue on warfarin daily with alternating doses of 2 mg and 4 mg - INR = 2.2 on admission (8) Gastroparesis: Plan: - Noted, pt reports being on probiotic, notes having soft BM today and possible diarrhea - If worsening then would check c. diff, no recent antibiotic use however (9) Hypothyroidism: Plan: - Continue levothyroxine 50 mcg daily DVT ppx: warfarin CODE: Full code Dispo: From [facility], likely to remain in the hospital 1-2d A total of 60 minutes were spent with the patient examining her and discussing the results of test with her, reviewing medications and changing medications as appropriate. Admission and Anticipated Discharge Date Admission Date: October 05, 2022 Subjective 10/06/2022 The patient was seen and examined in medical telemetry unit She has been feeling a little better and now is sitting at the edge of the bed Her swelling of the legs have improved and the redness of the legs have improved too No more fever and or chills He complains to have diarrhea for the last 2 weeks Review of Systems Review of Systems: All systems reviewed and are unremarkable except as noted below Musculoskeletal: Chronic pain likely secondary to fibromyalgia and also Edenilson-Danlos syndrome Physical Exam Physical Exam: Sitting at the edge of the bed without acute symptoms Constitutional: + ill appearing and average body habitus Eyes: PERRL, conjunctivae normal, anicteric sclerae ENMT: external ear and nose normal, oropharynx normal Neck: trachea midline, no thyromegaly Respiratory: no respiratory distress Auscultation: + diminished lung sounds and + crackles (Minimal crackles at the bases) Cardiovascular: Rate/Rhythm: regular rate and regular rhythm; not tachycardic Heart Sounds: normal S1, normal S2 and + murmur Extremities: + edema (1+ edema bilaterally) Gastrointestinal (Abdomen): Inspection/Auscultation: normal bowel sounds; abdomen not distended Percussion/Palpation: + abdomen tender (Epigastric tenderness) and abdomen soft Musculoskeletal: She does have arthralgias but no acute arthritis involving any of the joints Neurologic: Alert, awake and oriented x3. Generally very weak and lethargic Lymphatic: no cervical or axillary lymphadenopathy Results & Data Results & Data Vital Signs (Past 12 Hours) Vital Signs Temp Pulse Pulse Resp BP BP Pulse Ox 10/06/22 11:17 36.8 C 95 H 18 83/52 L 96 10/06/22 11:29 90/59 L 10/06/22 07:45 87 10/06/22 07:33 37.3 C 73 18 91/60 L 93 10/06/22 02:39 36.8 C 79 18 111/74 97 O2 Del Method 10/06/22 11:17 Room Air 10/06/22 11:29 10/06/22 07:45 10/06/22 07:33 Room Air 10/06/22 02:39 Room Air Laboratory Results Short CBC 10/06/22 Range/Units 05:45 WBC 16.65 H (4.8-10.8) K/ul Hgb 8.8 L (12.0-16.0) g/dl Hct 28.0 L (37.0-47.0) % Plt Count 216 (130-400) K/uL BMP 10/06/22 05:45 Sodium 140 Potassium 2.9 L Chloride 103 Carbon Dioxide 26 BUN 11 Creatinine 0.86 Glucose 132 H Calcium 8.3 L Liver Function 10/06/22 Range/Units 05:45 Total Bilirubin 0.7 (0.2-1.0) mg/dl Direct Bilirubin 0.1 (0-0.2) mg/dl AST 14 (13-39) U/L ALT < 3 L (7-52) U/L Alkaline Phosphatase 116 H (34-104) U/L Albumin 3.1 L (3.4-5.0) gm/dl Medications Administered Current Inpatient Medications Atorvastatin Calcium (Atorvastatin 20 Mg Tab) 20 mg PO QAM [facility] Stop: 11/05/22 08:59 Last Admin: 10/06/22 07:58 Dose: 20 mg Buprenorphine HCl (Buprenorphine 15 Mcg/Patch Tdsy) 1 mcg TD Th@0900 [facility] Stop: 11/10/22 08:59 Carbidopa/Levodopa (Carbidopa/Levodopa 25/100mg Tab) 1 tab PO TID@0800,1200,2000 [facility] Stop: 11/04/22 19:59 Last Admin: 10/06/22 11:28 Dose: 1 tab Fluticasone Propionate (Fluticasone Propionate Na Spr 16 Gm Btl) 2 sprays NA DAILY [facility] Stop: 11/05/22 08:59 Last Admin: 10/06/22 07:56 Dose: 1 sprays Fluticasone/Vilanterol (Fluticasone/Vilanterol 100/25mcg 14 Puffs/Inhaler) 1 puffs INH QAM [facility] Stop: 11/05/22 08:59 Last Admin: 10/06/22 07:59 Dose: 1 puffs Furosemide (Furosemide 40 Mg Tab) 40 mg PO QAM [facility] Stop: 11/06/22 08:59 Hydroxyzine HCl (Hydroxyzine Hcl 25 Mg Tab) 25 mg PO Q6 PRN PRN Reason: ANXIETY/ITCHING Stop: 11/04/22 16:54 Daptomycin 350 mg/ Syringe 7 mls @ 3.5 mls/min IV Q24H [facility]; Protocol Stop: 10/12/22 12:14 Last Admin: 10/06/22 12:24 Dose: 3.5 mls/min Piperacillin Sod/Tazobactam (Sod 3.375 gm/ Dextrose) 115 mls @ 28.75 mls/hr IV Q8H [facility]; Protocol Stop: 10/07/22 18:59 Last Admin: 10/06/22 12:27 Dose: 28.8 mls/hr Acetaminophen (Ofirmev) 1,000 mg in 100 mls @ 400 mls/hr IV Q8H PRN PRN Reason: Fever Stop: 10/08/22 17:20 Last Infusion: 10/05/22 20:44 Dose: Infused Levothyroxine Sodium (Levothyroxine Sodium 50 Mcg Tablet) 50 mcg PO DAILYBB [facility] Stop: 11/05/22 06:29 Last Admin: 10/06/22 06:17 Dose: 50 mcg Metoprolol Tartrate (Metoprolol Tartrate 25 Mg Tab) 12.5 mg PO DAILY [facility] Stop: 11/05/22 08:59 Last Admin: 10/06/22 07:56 Dose: Not Given Mirtazapine (Mirtazapine Tab 15 Mg Tab) 15 mg PO HS [facility] Stop: 11/04/22 20:59 Last Admin: 10/05/22 20:23 Dose: 15 mg Montelukast Sodium (Montelukast Sodium 10 Mg Tablet) 10 mg PO HS [facility] Stop: 11/04/22 20:59 Last Admin: 10/05/22 20:24 Dose: 10 mg Multivitamins/Minerals (Cerovite Adv Formula Tab) 1 tab PO DAILY [facility] Stop: 11/05/22 08:59 Last Admin: 10/06/22 07:58 Dose: 1 tab Ondansetron HCl (Ondansetron Inj 2 Mg/Ml 2 Ml Vial) 4 mg IV Q4H PRN PRN Reason: Nausea And Vomiting Stop: 11/04/22 16:54 Oxycodone/Acetaminophen (Oxycodone/Acetaminophen 5mg/325mg Tab) 1 tab PO Q8H PRN PRN Reason: Pain (Scale Score 4-10) Stop: 10/19/22 16:54 Last Admin: 10/06/22 08:07 Dose: 1 tab Pantoprazole Sodium (Pantoprazole 40 Mg Tab) 40 mg PO DAILY [facility] Stop: 11/05/22 08:59 Last Admin: 10/06/22 07:57 Dose: 40 mg Potassium Chloride (Potassium Chloride Pwd 20 Meq Pack) 40 meq PO QAM [facility] Stop: 11/05/22 08:59 Last Admin: 10/06/22 07:58 Dose: 40 meq Potassium Chloride (Potassium Chloride Pwd 20 Meq Pack) 20 meq PO PM [facility] Stop: 11/04/22 20:59 Last Admin: 10/05/22 20:24 Dose: 20 meq Ropinirole HCl (Ropinirole Hcl 1 Mg Tablet) 1 mg PO TID@0800,1200,1700 [facility] Stop: 11/04/22 17:29 Last Admin: 10/06/22 12:25 Dose: 1 mg Ropinirole HCl (Ropinirole Hcl 2 Mg Tablet) 2 mg PO DAILY@2000 [facility] Stop: 11/04/22 19:59 Last Admin: 10/05/22 20:25 Dose: 2 mg Saccharomyces Boulardii (Saccharomyces Boulardii 250 Mg Cap) 250 mg PO BID [facility] Stop: 11/04/22 20:59 Last Admin: 10/06/22 07:58 Dose: 250 mg Thiamine HCl (Thiamine Hcl 100 Mg Tab) 100 mg PO BID [facility] Stop: 11/04/22 20:59 Last Admin: 10/06/22 07:57 Dose: 100 mg Warfarin Sodium (Warfarin Sod 4 Mg Tab) 4 mg PO Q2D@1830 [facility] Stop: 11/04/22 18:29 Last Admin: 10/05/22 20:20 Dose: 4 mg Warfarin Sodium (Warfarin Sod 2 Mg Tab) 2 mg PO Q2D@1600 [facility] Stop: 11/05/22 15:59 (2) Fever Fever type: unspecified Qualified Code(s): R50.9 - Fever, unspecified
[2022-10-06] MEDS ORDERED: WARFARIN SOD 2 MG TAB PO SCH (16:00)
[2022-10-06] MEDS: ACETAMINOPHEN 1,000 MG/100 ML VIAL IV PRN (17:23)
[2022-10-06] MEDS ORDERED: Nursing to Pharmacy Communication SCH (18:15)
[2022-10-06] MEDS: rOPINIRole HCL 2 MG TABLET PO SCH (20:39)
[2022-10-06] MEDS: MONTELUKAST SODIUM 10 MG TABLET PO SCH (20:39)
[2022-10-06] MEDS: MIRTAZAPINE TAB 15 MG TAB PO SCH (20:39)
[2022-10-07] MEDS: PIPERACILLIN/TAZOBACTAM 3.375 GM in DEXTROSE 5% 100 ML IV SCH ×2 (04:03→12:24)
[2022-10-07] MEDS: LEVOTHYROXINE SODIUM 50 MCG TABLET PO SCH (04:04)
[2022-10-07] MEDS: oxyCODONE/ACETAMINOPHEN 5mg/325mg TAB PO PRN ×3 (04:10→23:05)
[2022-10-07 06:06] LABS: Basophils # (auto) 0.06 K/uL (0-0.2); Basophils % (auto) 0.4 %; Eosinophils # (auto) 0.04 K/uL (0-0.50); Eosinophils % (auto) 0.3 %; Hematocrit (blood only) 26.7 % (37.0-47.0); Hemoglobin 8.3 g/dl (12.0-16.0); Immature Granulocytes # (auto) 0.09 K/uL (0.01-0.20); Immature Granulocytes % (auto) 0.6 %; Lymphocytes # (auto) 0.63 K/uL (1.2-3.4); Lymphocytes % (auto) 4.1 %; Mean Corpuscular Hemoglobin 26.4 pg (25.0-34.0); Mean Corpuscular Hgb Conc 31.1 g/dL (32.0-36.0); Mean Platelet Volume 11.2 fL (9.4-12.4); Monocytes # (auto) 1.27 K/uL (0.11-0.59); Monocytes % (auto) 8.2 %; Neutrophils # (auto) 13.32 K/uL (1.40-6.50); Neutrophils % (auto) 86.4 %; Platelet Count 219 K/uL (130-400); RDW Coefficient of Variation 16.8 % (11.5-14.5); RDW Standard Deviation 51.6 fL (36.4-46.3); Red Blood Count 3.14 M/uL (4.20-5.40); White Blood Count 15.41 K/ul (4.8-10.8)
[2022-10-07 06:37] LABS: Creatinine Clr Calc Pharmacy 58.2 ml/min; Est GFR (African American) 84.1 ml/min; Est GFR (Non-African American) 72.6 ml/min
[2022-10-07 07:05] LABS: INR 4.8 (0.9-1.1); Prothrombin Time 46.5 Seconds (9.0-12.0)
[2022-10-07] MEDS: METOPROLOL TARTRATE 25 MG TAB PO SCH (07:26)
[2022-10-07] MEDS: FLUTICASONE PROPIONATE NA SPR 16 GM BTL SCH (07:28)
[2022-10-07] MEDS: FLUTICASONE/VILANTEROL 100/25MCG 14 PUFFS/INHALER INH SCH (07:28)
[2022-10-07] MEDS: rOPINIRole HCL 1 MG TABLET PO SCH ×3 (07:29→17:03)
[2022-10-07] MEDS: POTASSIUM CHLORIDE PWD 20 MEQ PACK PO SCH ×2 (07:29→19:57)
[2022-10-07] MEDS: PANTOprazole 40 MG TAB PO SCH (07:29)
[2022-10-07] MEDS: FUROSEMIDE 40 MG TAB PO SCH (07:29)
[2022-10-07] MEDS: CARBIDOPA/LEVODOPA 25/100MG TAB PO SCH ×3 (07:29→19:56)
[2022-10-07] MEDS: ATORVASTATIN 20 MG TAB PO SCH (07:29)
[2022-10-07] MEDS: CEROVITE ADV FORMULA TAB PO SCH (07:29)
[2022-10-07] MEDS: THIAMINE HCL 100 MG TAB PO SCH ×2 (07:29→19:55)
[2022-10-07] MEDS: SACCHAROMYCES BOULARDII 250 MG CAP PO SCH ×2 (07:29→19:56)
[2022-10-07] MEDS ORDERED: POTASSIUM CHLORIDE / WTR 10 MEQ/100 ML PLCT IV SCH (10:00)
[2022-10-07] MEDS ORDERED: POTASSIUM CHLORIDE CRTAB 20 MEQ TABCR PO STA (11:10)
--- NOTE | 2022-10-07 13:23 | Hospitalist Progress Note ---
Date of Service October 07, 2022 Assessment & Plan (1) Bacteremia: Plan: Cultures taken on 10/03/2022 in the emergency room developed 1 out of 2 bottle for gram-negative bacilli in the serologies positive for Bacteroides fragilis She complains to have diarrhea for the last 1 to 2 weeks She continued to have fever following discharge from the ER yesterday and she was called back in for IV antibiotic She looks very ill with fever and shakes during examination Repeat blood cultures have been taken and she has been started with intravenous Zosyn and daptomycin to cover possible leg cellulitis as well Serology was positive for bacteroids fragilis but everything else was negative We will discontinue intravenous daptomycin Repeat blood cultures have been negative which were taken before administering antibiotics Repeat blood culture 1 out of 2 bottles growing gram-negative bacilli-further identification and sensitivity are pending She has been improving and does not have any fever and or chills or sweating (2) Fever: Plan: She will be given intravenous Tylenol to control the pain and fever 1 episode for fever following admission but no more since then (3) Bilateral lower leg cellulitis: Plan: - Admit to [facility] telemetry for IV antibiotic therapy - Serology positive for Bacteroides fragilis- concern for contamination vs ba cteremia - Follow blood cultures, preliminary results are showing gram-negative rods in anaerobic bottle from 10/03, follow final results. Repeat blood cultures drawn today prior to abx - IV antibiotic therapy with daptomycin and Zosyn IV initiated, will continue - WBC 7.62, afebrile here -Serology for the bacteria have been negative so we will discontinue intravenous daptomycin -Likely to give Augmentin for cellulitis and to cover transient Bacteroides fragilis -Bilateral leg cellulitis/redness has improved a lot Chronic leg edema with known lymphedema Condition has been worsened over the last week or so with increasing swelling Legs are very edematous and warm to touch with tenderness Antibiotics have been started with intravenous Zosyn and vancomycin Will be given additional doses of Lasix to take out some of the fluid as well Swelling of the legs have improved a lot following administration of Lasix We will change Lasix to oral from tomorrow Bilateral leg edema is really down (4) Anemia: Plan: -History of iron infusion on 10/03 at [facility], was transported to the ER on 10/03 after developing a fever after infusion. 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, PT/OT consults - Pt has associated chronic pain syndrome and is on buprenorphine, oxycodone/APAP 3/325 A7B-oypcveod dose of morphine sulfate IV 2 mg in the ER along with Ativan with slight improvement, will give dose of oxycodone IR now x1 - PDMP reviewed (7) Paroxysmal SVT (supraventricular tachycardia): Plan: - History of such, EKG reviewed, difficult to chart to determine on monitor due to patient shivering, restless leg, missed afternoon dose of Requip and being anxious - Continue on warfarin daily with alternating doses of 2 mg and 4 mg - INR = 2.2 on admission -INR is elevated to 4.8 likely secondary to use of antibiotic and will hold any Coumadin (8) Gastroparesis: Plan: - Noted, pt reports being on probiotic, notes having soft BM today and possible diarrhea - If worsening then would check c. diff, no recent antibiotic use however (9) Hypothyroidism: Plan: - Continue levothyroxine 50 mcg daily DVT ppx: warfarin CODE: Full code Dispo: From [facility], likely to remain in the hospital 1-2d A total of 45 minutes were spent with the patient examining her and discussing the results of test with her, reviewing medications and changing medications as appropriate. Admission and Anticipated Discharge Date Admission Date: October 05, 2022 Subjective 10/06/2022 The patient was seen and examined in medical telemetry unit She has been feeling a little better and now is sitting at the edge of the bed Her swelling of the legs have improved and the redness of the legs have improved too No more fever and or chills He complains to have diarrhea for the last 2 weeks 10/07/2022 The patient was seen and examined in medical telemetry unit She has been feeling much better and denies to have any more diarrhea Diego weak and lethargic with minimal abdominal pain No fever and or chills Review of Systems Review of Systems: All systems reviewed and are unremarkable except as noted below Musculoskeletal: Chronic pain likely secondary to fibromyalgia and also Edenilson-Danlos syndrome Physical Exam Physical Exam: Sitting at the edge of the bed without acute symptoms Constitutional: + ill appearing and average body habitus Eyes: PERRL, conjunctivae normal, anicteric sclerae ENMT: external ear and nose normal, oropharynx normal Neck: trachea midline, no thyromegaly Respiratory: no respiratory distress Auscultation: + diminished lung sounds and + crackles (Minimal crackles at the bases) Cardiovascular: Rate/Rhythm: regular rate and regular rhythm; not tachycardic Heart Sounds: normal S1, normal S2 and + murmur Extremities: + edema (1+ edema bilaterally) Gastrointestinal (Abdomen): Inspection/Auscultation: normal bowel sounds; abdomen not distended Percussion/Palpation: + abdomen tender (Epigastric tenderness) and abdomen soft Musculoskeletal: No acute arthritis involving any joint Neurologic: normal touch/pain/proprioception and moves all extremities; no focal motor deficits Psychiatric: A+Ox3, euthymic affect Lymphatic: no cervical or axillary lymphadenopathy Results & Data Results & Data Vital Signs (Past 12 Hours) Vital Signs Temp Pulse Resp BP BP Pulse Ox O2 Del Method 10/07/22 10:54 37.1 C 77 18 87/60 L 96 Room Air 10/07/22 07:22 36.7 C 74 18 89/54 L 96 Room Air 10/07/22 04:00 36.7 C 82 16 99/67 L 94 Room Air Laboratory Results Short CBC 10/07/22 Range/Units 05:21 WBC 15.41 H (4.8-10.8) K/ul Hgb 8.3 L (12.0-16.0) g/dl Hct 26.7 L (37.0-47.0) % Plt Count 219 (130-400) K/uL BMP 10/07/22 05:21 Sodium 137 Potassium 3.0 L Chloride 102 Carbon Dioxide 28 BUN 13 Creatinine 0.81 Glucose 108 H Calcium 8.0 L Medications Administered Current Inpatient Medications Atorvastatin Calcium (Atorvastatin 20 Mg Tab) 20 mg PO QAM [facility] Stop: 11/05/22 08:59 Last Admin: 10/07/22 07:29 Dose: 20 mg Buprenorphine HCl (Buprenorphine 15 Mcg/Patch Tdsy) 1 mcg TD Th@0900 [facility] Stop: 11/10/22 08:59 Carbidopa/Levodopa (Carbidopa/Levodopa 25/100mg Tab) 1 tab PO TID@0800,1200,2000 [facility] Stop: 11/04/22 19:59 Last Admin: 10/07/22 11:22 Dose: 1 tab Fluticasone Propionate (Fluticasone Propionate Na Spr 16 Gm Btl) 2 sprays NA DAILY [facility] Stop: 11/05/22 08:59 Last Admin: 10/07/22 07:28 Dose: 2 sprays Fluticasone/Vilanterol (Fluticasone/Vilanterol 100/25mcg 14 Puffs/Inhaler) 1 puffs INH QAM [facility] Stop: 11/05/22 08:59 Last Admin: 10/07/22 07:28 Dose: 1 puffs Furosemide (Furosemide 40 Mg Tab) 40 mg PO QAM [facility] Stop: 11/06/22 08:59 Last Admin: 10/07/22 07:29 Dose: 40 mg Hydroxyzine HCl (Hydroxyzine Hcl 25 Mg Tab) 25 mg PO Q6 PRN PRN Reason: ANXIETY/ITCHING Stop: 11/04/22 16:54 Piperacillin Sod/Tazobactam (Sod 3.375 gm/ Dextrose) 115 mls @ 28.75 mls/hr IV Q8H [facility]; Protocol Stop: 10/07/22 18:59 Last Admin: 10/07/22 12:24 Dose: 28.8 mls/hr Acetaminophen (Ofirmev) 1,000 mg in 100 mls @ 400 mls/hr IV Q8H PRN PRN Reason: Fever Stop: 10/08/22 17:20 Last Infusion: 10/06/22 18:08 Dose: Infused Levothyroxine Sodium (Levothyroxine Sodium 50 Mcg Tablet) 50 mcg PO DAILYBB [facility] Stop: 11/05/22 06:29 Last Admin: 10/07/22 04:04 Dose: 50 mcg Metoprolol Tartrate (Metoprolol Tartrate 25 Mg Tab) 12.5 mg PO DAILY [facility] Stop: 11/05/22 08:59 Last Admin: 10/07/22 07:26 Dose: Not Given Mirtazapine (Mirtazapine Tab 15 Mg Tab) 15 mg PO HS [facility] Stop: 11/04/22 20:59 Last Admin: 10/06/22 20:39 Dose: 15 mg Montelukast Sodium (Montelukast Sodium 10 Mg Tablet) 10 mg PO HS [facility] Stop: 11/04/22 20:59 Last Admin: 10/06/22 20:39 Dose: 10 mg Multivitamins/Minerals (Cerovite Adv Formula Tab) 1 tab PO DAILY [facility] Stop: 11/05/22 08:59 Last Admin: 10/07/22 07:29 Dose: 1 tab Ondansetron HCl (Ondansetron Inj 2 Mg/Ml 2 Ml Vial) 4 mg IV Q4H PRN PRN Reason: Nausea And Vomiting Stop: 11/04/22 16:54 Oxycodone/Acetaminophen (Oxycodone/Acetaminophen 5mg/325mg Tab) 1 tab PO Q8H PRN PRN Reason: Pain (Scale Score 4-10) Stop: 10/19/22 16:54 Last Admin: 10/07/22 04:10 Dose: 1 tab Pantoprazole Sodium (Pantoprazole 40 Mg Tab) 40 mg PO DAILY [facility] Stop: 11/05/22 08:59 Last Admin: 10/07/22 07:29 Dose: 40 mg Potassium Chloride (Potassium Chloride Pwd 20 Meq Pack) 40 meq PO QAM [facility] Stop: 11/05/22 08:59 Last Admin: 10/07/22 07:29 Dose: 40 meq Potassium Chloride (Potassium Chloride Pwd 20 Meq Pack) 20 meq PO PM [facility] Stop: 11/04/22 20:59 Last Admin: 10/06/22 20:38 Dose: 20 meq Ropinirole HCl (Ropinirole Hcl 1 Mg Tablet) 1 mg PO TID@0800,1200,1700 [facility] Stop: 11/04/22 17:29 Last Admin: 10/07/22 11:22 Dose: 1 mg Ropinirole HCl (Ropinirole Hcl 2 Mg Tablet) 2 mg PO DAILY@2000 [facility] Stop: 11/04/22 19:59 Last Admin: 10/06/22 20:39 Dose: 2 mg Saccharomyces Boulardii (Saccharomyces Boulardii 250 Mg Cap) 250 mg PO BID [facility] Stop: 11/04/22 20:59 Last Admin: 10/07/22 07:29 Dose: 250 mg Thiamine HCl (Thiamine Hcl 100 Mg Tab) 100 mg PO BID [facility] Stop: 11/04/22 20:59 Last Admin: 10/07/22 07:29 Dose: 100 mg Warfarin Sodium (Warfarin Sod 4 Mg Tab) 4 mg PO Q2D@1830 [facility] Stop: 11/04/22 18:29 Last Admin: 10/05/22 20:20 Dose: 4 mg Warfarin Sodium (Warfarin Sod 2 Mg Tab) 2 mg PO Q2D@1600 [facility] Stop: 11/05/22 15:59 (2) Fever Fever type: unspecified Qualified Code(s): R50.9 - Fever, unspecified
[2022-10-07] MEDS: MIRTAZAPINE TAB 15 MG TAB PO SCH (19:56)
[2022-10-07] MEDS: MONTELUKAST SODIUM 10 MG TABLET PO SCH (19:56)
[2022-10-07] MEDS: rOPINIRole HCL 2 MG TABLET PO SCH (19:57)
[2022-10-07] MEDS ORDERED: POLYETHYLENE (MIRALAX) 17 GM PACK PO PRN (20:19)
[2022-10-08] MEDS: LEVOTHYROXINE SODIUM 50 MCG TABLET PO SCH (05:55)
[2022-10-08] MEDS: oxyCODONE/ACETAMINOPHEN 5mg/325mg TAB PO PRN ×2 (07:42→18:44)
[2022-10-08] MEDS: CARBIDOPA/LEVODOPA 25/100MG TAB PO SCH ×3 (07:46→20:43)
[2022-10-08] MEDS: POTASSIUM CHLORIDE PWD 20 MEQ PACK PO SCH ×3 (07:46→21:08)
[2022-10-08] MEDS: SACCHAROMYCES BOULARDII 250 MG CAP PO SCH ×2 (07:46→20:46)
[2022-10-08] MEDS: THIAMINE HCL 100 MG TAB PO SCH ×2 (07:47→20:46)
[2022-10-08] MEDS: METOPROLOL TARTRATE 25 MG TAB PO SCH (07:47)
[2022-10-08] MEDS: CEROVITE ADV FORMULA TAB PO SCH (07:47)
[2022-10-08] MEDS: PANTOprazole 40 MG TAB PO SCH ×2 (07:48→20:47)
[2022-10-08] MEDS: rOPINIRole HCL 1 MG TABLET PO SCH ×3 (07:48→16:13)
[2022-10-08] MEDS: FUROSEMIDE 40 MG TAB PO SCH (07:48)
[2022-10-08] MEDS: ATORVASTATIN 20 MG TAB PO SCH (07:49)
[2022-10-08] MEDS: FLUTICASONE/VILANTEROL 100/25MCG 14 PUFFS/INHALER INH SCH (07:49)
[2022-10-08] MEDS: FLUTICASONE PROPIONATE NA SPR 16 GM BTL SCH (07:49)
[2022-10-08 08:42] LABS: INR 2.6 (0.9-1.1); Prothrombin Time 26.6 Seconds (9.0-12.0)
[2022-10-08] MEDS ORDERED: PIPERACILLIN/TAZOBACTAM 3.375 GM in DEXTROSE 5% 100 ML IV ONE (10:30)
[2022-10-08] MEDS: ACETAMINOPHEN 1,000 MG/100 ML VIAL IV PRN (14:36)
[2022-10-08] MEDS: PIPERACILLIN/TAZOBACTAM 3.375 GM in DEXTROSE 5% 100 ML IV SCH (15:57)
[2022-10-08] MEDS: CHECK BUPRENORPHINE PATCH SCH (15:57)
--- NOTE | 2022-10-08 16:27 | Hospitalist Progress Note ---
Date of Service October 08, 2022 Assessment & Plan (1) Bacteremia: Plan: Cultures taken on 10/03/2022 in the emergency room developed 1 out of 2 bottle for gram-negative bacilli in the serologies positive for Bacteroides fragilis She complains to have diarrhea for the last 1 to 2 weeks She continued to have fever following discharge from the ER yesterday and she was called back in for IV antibiotic She looks very ill with fever and shakes during examination Repeat blood cultures have been taken and she has been started with intravenous Zosyn and daptomycin to cover possible leg cellulitis as well Serology was positive for bacteroids fragilis but everything else was negative We will discontinue intravenous daptomycin Repeat blood cultures have been negative which were taken before administering antibiotics Repeat blood culture 1 out of 2 bottles growing gram-negative bacilli-further identification and sensitivity are pending She has been improving and does not have any fever and or chills or sweating Blood culture 1 out of 2 bottles has been positive for bacteroids fragilis on 2 different occasions She has been on intravenous Zosyn for now and plan is to continue with oral Augmentin on discharge Await ID recommendation for definitive guide (2) Fever: Plan: She will be given intravenous Tylenol to control the pain and fever 1 episode for fever following admission but no more since then No more fever and or chills (3) Bilateral lower leg cellulitis: Plan: - Admit to [facility] telemetry for IV antibiotic therapy - Serology positive for Bacteroides fragilis- concern for contamination vs bacteremia - Follow blood cultures, preliminary results are showing gram-negative rods in anaerobic bottle from 10/03, follow final results. Repeat blood cultures drawn today prior to abx - IV antibiotic therapy with daptomycin and Zosyn IV initiated, will continue - WBC 7.62, afebrile here -Serology for the bacteria have been negative so we will discontinue intravenous daptomycin -Likely to give Augmentin for cellulitis and to cover transient Bacteroides fragilis -Bilateral leg cellulitis/redness has improved a lot No more cellulitis of the legs Chronic leg edema with known lymphedema Condition has been worsened over the last week or so with increasing swelling Legs are very edematous and warm to touch with tenderness Antibiotics have been started with intravenous Zosyn and vancomycin Will be given additional doses of Lasix to take out some of the fluid as well Swelling of the legs have improved a lot following administration of Lasix We will change Lasix to oral from tomorrow Bilateral leg edema is really down (4) Anemia: Plan: -History of iron infusion on 10/03 at [facility], was transported to the ER on 10/03 after developing a fever after infusion. 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, PT/OT consults - Pt has associated chronic pain syndrome and is on buprenorphine, oxycodone/APAP 3/325 [id number] dose of morphine sulfate IV 2 mg in the ER along with Ativan with slight improvement, will give dose of oxycodone IR now x1 - PDMP reviewed (7) Paroxysmal SVT (supraventricular tachycardia): Plan: - History of such, EKG reviewed, difficult to chart to determine on monitor due to patient shivering, restless leg, missed afternoon dose of Requip and being anxious - Continue on warfarin daily with alternating doses of 2 mg and 4 mg - INR = 2.2 on admission -INR is elevated to 4.8 likely secondary to use of antibiotic and will hold any Coumadin INR result 2.60 (8) Gastroparesis: Plan: - Noted, pt reports being on probiotic, notes having soft BM today and possible diarrhea - If worsening then would check c. diff, no recent antibiotic use however (9) Hypothyroidism: Plan: - Continue levothyroxine 50 mcg daily DVT ppx: warfarin CODE: Full code Dispo: From [facility], likely to remain in the hospital 1-2d A total of 45 minutes were spent with the patient examining her and discussing the results of test with her, reviewing medications and changing medications as appropriate. Admission and Anticipated Discharge Date Admission Date: October 05, 2022 Subjective 10/06/2022 The patient was seen and examined in medical telemetry unit She has been feeling a little better and now is sitting at the edge of the bed Her swelling of the legs have improved and the redness of the legs have improved too No more fever and or chills He complains to have diarrhea for the last 2 weeks 10/07/2022 The patient was seen and examined in medical telemetry unit She has been feeling much better and denies to have any more diarrhea Diego weak and lethargic with minimal abdominal pain No fever and or chills 10/08/2022 The patient was seen and examined in medical telemetry unit She has been feeling much better today Abdominal pain and back pain resolved No diarrhea, no fever and no chills Review of Systems Review of Systems: All systems reviewed and are unremarkable except as noted below Musculoskeletal: Chronic pain likely secondary to fibromyalgia and also Edenilson-Danlos syndrome Physical Exam Physical Exam: Lying in bed without any acute distress Constitutional: average body habitus; not ill appearing Eyes: PERRL, conjunctivae normal, anicteric sclerae ENMT: external ear and nose normal, oropharynx normal Neck: trachea midline, no thyromegaly Respiratory: no respiratory distress Auscultation: + diminished lung sounds and + crackles (Minimal crackles at the bases) Cardiovascular: Rate/Rhythm: regular rate and regular rhythm; not tachycardic Heart Sounds: normal S1, normal S2 and + murmur Extremities: + edema (1+ edema bilaterally) Gastrointestinal (Abdomen): Inspection/Auscultation: normal bowel sounds; abdomen not distended Percussion/Palpation: + abdomen tender (Epigastric tenderness) and abdomen soft Musculoskeletal: No acute arthritis involving any joint Neurologic: normal touch/pain/proprioception and moves all extremities; no focal motor deficits Psychiatric: A+Ox3, euthymic affect Lymphatic: no cervical or axillary lymphadenopathy Results & Data Results & Data Vital Signs (Past 12 Hours) Vital Signs Temp Pulse Pulse Resp BP BP Pulse Ox 10/08/22 14:56 37.0 C 74 20 105/70 93 10/08/22 14:56 74 10/08/22 11:44 36.7 C 73 16 100/64 96 10/08/22 07:22 36.9 C 71 18 96/66 L 95 O2 Del Method 10/08/22 14:56 Room Air 10/08/22 14:56 10/08/22 11:44 Room Air 10/08/22 07:22 Room Air Medications Administered Current Inpatient Medications Atorvastatin Calcium (Atorvastatin 20 Mg Tab) 20 mg PO QAM [facility] Stop: 11/05/22 08:59 Last Admin: 10/08/22 07:49 Dose: 20 mg Buprenorphine HCl (Buprenorphine 15 Mcg/Patch Tdsy) 1 mcg TD Th@0900 [facility] Stop: 11/10/22 08:59 Carbidopa/Levodopa (Carbidopa/Levodopa 25/100mg Tab) 1 tab PO TID@0800,1200,2000 [facility] Stop: 11/04/22 19:59 Last Admin: 10/08/22 11:50 Dose: 1 tab Fluticasone Propionate (Fluticasone Propionate Na Spr 16 Gm Btl) 2 sprays NA DAILY [facility] Stop: 11/05/22 08:59 Last Admin: 10/08/22 07:49 Dose: 1 sprays Fluticasone/Vilanterol (Fluticasone/Vilanterol 100/25mcg 14 Puffs/Inhaler) 1 puffs INH QAM [facility] Stop: 11/05/22 08:59 Last Admin: 10/08/22 07:49 Dose: 1 puffs Furosemide (Furosemide 40 Mg Tab) 40 mg PO QAM [facility] Stop: 11/06/22 08:59 Last Admin: 10/08/22 07:48 Dose: 40 mg Hydroxyzine HCl (Hydroxyzine Hcl 25 Mg Tab) 25 mg PO Q6 PRN PRN Reason: ANXIETY/ITCHING Stop: 11/04/22 16:54 Acetaminophen (Ofirmev) 1,000 mg in 100 mls @ 400 mls/hr IV Q8H PRN PRN Reason: Fever Stop: 10/08/22 17:20 Last Infusion: 10/08/22 14:59 Dose: Infused Piperacillin Sod/Tazobactam (Sod 3.375 gm/ Dextrose) 115 mls @ 28.75 mls/hr IV Q8H [facility]; Protocol Stop: 10/22/22 15:59 Last Admin: 10/08/22 15:57 Dose: 28.8 mls/hr Levothyroxine Sodium (Levothyroxine Sodium 50 Mcg Tablet) 50 mcg PO DAILYBB [facility] Stop: 11/05/22 06:29 Last Admin: 10/08/22 05:55 Dose: 50 mcg Metoprolol Tartrate (Metoprolol Tartrate 25 Mg Tab) 12.5 mg PO DAILY [facility] Stop: 11/05/22 08:59 Last Admin: 10/08/22 07:47 Dose: Not Given Mirtazapine (Mirtazapine Tab 15 Mg Tab) 15 mg PO HS [facility] Stop: 11/04/22 20:59 Last Admin: 10/07/22 19:56 Dose: 15 mg Miscellaneous (Check Buprenorphine Patch) 1 each N/A QS [facility] Stop: 11/07/22 15:59 Last Admin: 10/08/22 15:57 Dose: 1 each Miscellaneous (Remove & Waste Butrans Patch 1 Ea Ea) 1 each N/A Th@0859 [facility] Stop: 11/10/22 08:58 Montelukast Sodium (Montelukast Sodium 10 Mg Tablet) 10 mg PO HS [facility] Stop: 11/04/22 20:59 Last Admin: 10/07/22 19:56 Dose: 10 mg Multivitamins/Minerals (Cerovite Adv Formula Tab) 1 tab PO DAILY [facility] Stop: 11/05/22 08:59 Last Admin: 10/08/22 07:47 Dose: 1 tab Ondansetron HCl (Ondansetron Inj 2 Mg/Ml 2 Ml Vial) 4 mg IV Q4H PRN PRN Reason: Nausea And Vomiting Stop: 11/04/22 16:54 Oxycodone/Acetaminophen (Oxycodone/Acetaminophen 5mg/325mg Tab) 1 tab PO Q8H PRN PRN Reason: Pain (Scale Score 4-10) Stop: 10/19/22 16:54 Last Admin: 10/08/22 07:42 Dose: 1 tab Pantoprazole Sodium (Pantoprazole 40 Mg Tab) 40 mg PO DAILY [facility] Stop: 11/05/22 08:59 Last Admin: 10/08/22 07:48 Dose: 40 mg Polyethylene Glycol (Polyethylene (Miralax) 17 Gm Pack) 17 gm PO DAILY PRN PRN Reason: Constipation Stop: 11/06/22 20:18 Last Admin: 10/07/22 20:26 Dose: 17 gm Potassium Chloride (Potassium Chloride Pwd 20 Meq Pack) 40 meq PO QAM [facility] Stop: 11/05/22 08:59 Last Admin: 10/08/22 07:46 Dose: 40 meq Potassium Chloride (Potassium Chloride Pwd 20 Meq Pack) 20 meq PO PM [facility] Stop: 11/04/22 20:59 Last Admin: 10/07/22 19:57 Dose: 20 meq Ropinirole HCl (Ropinirole Hcl 1 Mg Tablet) 1 mg PO TID@0800,1200,1700 [facility] Stop: 11/04/22 17:29 Last Admin: 10/08/22 16:13 Dose: 1 mg Ropinirole HCl (Ropinirole Hcl 2 Mg Tablet) 2 mg PO DAILY@2000 [facility] Stop: 11/04/22 19:59 Last Admin: 10/07/22 19:57 Dose: 2 mg Saccharomyces Boulardii (Saccharomyces Boulardii 250 Mg Cap) 250 mg PO BID [facility] Stop: 11/04/22 20:59 Last Admin: 10/08/22 07:46 Dose: 250 mg Thiamine HCl (Thiamine Hcl 100 Mg Tab) 100 mg PO BID [facility] Stop: 11/04/22 20:59 Last Admin: 10/08/22 07:47 Dose: 100 mg Warfarin Sodium (Warfarin Sod 4 Mg Tab) 4 mg PO Q2D@1830 [facility] Stop: 11/04/22 18:29 Last Admin: 10/05/22 20:20 Dose: 4 mg Warfarin Sodium (Warfarin Sod 2 Mg Tab) 2 mg PO Q2D@1600 [facility] Stop: 11/05/22 15:59 Last Admin: 10/08/22 16:13 Dose: 2 mg (2) Fever Fever type: unspecified Qualified Code(s): R50.9 - Fever, unspecified
[2022-10-08] MEDS: MIRTAZAPINE TAB 15 MG TAB PO SCH (20:43)
[2022-10-08] MEDS: rOPINIRole HCL 2 MG TABLET PO SCH (20:43)
[2022-10-08] MEDS: MONTELUKAST SODIUM 10 MG TABLET PO SCH (20:45)
[2022-10-08] MEDS: hydrOXYzine HCl 25 MG TAB PO PRN (20:54)
[2022-10-09] MEDS: CHECK BUPRENORPHINE PATCH SCH ×3 (02:33→15:37)
[2022-10-09] MEDS: PIPERACILLIN/TAZOBACTAM 3.375 GM in DEXTROSE 5% 100 ML IV SCH ×3 (02:33→16:07)
[2022-10-09] MEDS: oxyCODONE/ACETAMINOPHEN 5mg/325mg TAB PO PRN ×3 (04:03→23:44)
[2022-10-09] MEDS: LEVOTHYROXINE SODIUM 50 MCG TABLET PO SCH (05:44)
[2022-10-09 07:03] LABS: Basophils # (auto) 0.03 K/uL (0-0.2); Basophils % (auto) 0.3 %; Eosinophils # (auto) 0.35 K/uL (0-0.50); Eosinophils % (auto) 3.4 %; Hemoglobin 8.3 g/dl (12.0-16.0); Immature Granulocytes # (auto) 0.03 K/uL (0.01-0.20); Immature Granulocytes % (auto) 0.3 %; Lymphocytes # (auto) 0.79 K/uL (1.2-3.4); Lymphocytes % (auto) 7.7 %; Mean Corpuscular Hemoglobin 26.6 pg (25.0-34.0); Mean Corpuscular Hgb Conc 31.9 g/dL (32.0-36.0); Mean Corpuscular Volume 83.3 fL (80.0-100.0); Mean Platelet Volume 11.2 fL (9.4-12.4); Monocytes # (auto) 1.06 K/uL (0.11-0.59); Monocytes % (auto) 10.4 %; Neutrophils # (auto) 7.96 K/uL (1.40-6.50); Neutrophils % (auto) 77.9 %; Platelet Count 289 K/uL (130-400); RDW Coefficient of Variation 16.9 % (11.5-14.5); RDW Standard Deviation 51.8 fL (36.4-46.3); Red Blood Count 3.12 M/uL (4.20-5.40); White Blood Count 10.22 K/ul (4.8-10.8)
[2022-10-09 07:34] LABS: Calcium 8.2 mg/dl (8.6-10.3); Creatinine Clr Calc Pharmacy 65.6 ml/min; Est GFR (African American) 100.3 ml/min; Est GFR (Non-African American) 86.6 ml/min; Potassium 3.7 mmol/L (3.5-5.1)
[2022-10-09 07:35] LABS: INR 1.8 (0.9-1.1); Prothrombin Time 18.2 Seconds (9.0-12.0)
[2022-10-09] MEDS: CEROVITE ADV FORMULA TAB PO SCH (07:57)
[2022-10-09] MEDS: ATORVASTATIN 20 MG TAB PO SCH (07:58)
[2022-10-09] MEDS: METOPROLOL TARTRATE 25 MG TAB PO SCH (07:58)
[2022-10-09] MEDS: FUROSEMIDE 40 MG TAB PO SCH (07:58)
[2022-10-09] MEDS: THIAMINE HCL 100 MG TAB PO SCH ×2 (07:59→19:34)
[2022-10-09] MEDS: rOPINIRole HCL 1 MG TABLET PO SCH ×3 (07:59→16:07)
[2022-10-09] MEDS: CARBIDOPA/LEVODOPA 25/100MG TAB PO SCH ×3 (07:59→19:33)
[2022-10-09] MEDS: SACCHAROMYCES BOULARDII 250 MG CAP PO SCH ×2 (08:00→19:33)
[2022-10-09] MEDS: FLUTICASONE/VILANTEROL 100/25MCG 14 PUFFS/INHALER INH SCH (08:04)
[2022-10-09] MEDS: FLUTICASONE PROPIONATE NA SPR 16 GM BTL SCH (08:05)
--- NOTE | 2022-10-09 14:29 | Hospitalist Progress Note ---
Date of Service October 09, 2022 Assessment & Plan (1) Bacteremia: Plan: Cultures taken on 10/03/2022 in the emergency room developed 1 out of 2 bottle for gram-negative bacilli in the serologies positive for Bacteroides fragilis She complains to have diarrhea for the last 1 to 2 weeks She continued to have fever following discharge from the ER yesterday and she was called back in for IV antibiotic She looks very ill with fever and shakes during examination Repeat blood cultures have been taken and she has been started with intravenous Zosyn and daptomycin to cover possible leg cellulitis as well Serology was positive for bacteroids fragilis but everything else was negative We will discontinue intravenous daptomycin Repeat blood cultures have been negative which were taken before administering antibiotics Repeat blood culture 1 out of 2 bottles growing gram-negative bacilli-further identification and sensitivity are pending She has been improving and does not have any fever and or chills or sweating Blood culture 1 out of 2 bottles has been positive for bacteroids fragilis on 2 different occasions She has been on intravenous Zosyn for now and plan is to continue with oral Augmentin on discharge Appreciate ID input and recommendation Will have CT of the abdomen and pelvis with oral and IV contrast to rule out any abscess Further recommendation will be given after that CT finding She has been feeling much better and remains stable (2) Fever: Plan: She will be given intravenous Tylenol to control the pain and fever 1 episode for fever following admission but no more since then No more fever and or chills (3) Bilateral lower leg cellulitis: Plan: - Admit to [facility] telemetry for IV antibiotic therapy - Serology positive for Bacteroides fragilis- concern for contamination vs bacteremia - Follow blood cultures, preliminary results are showing gram-negative rods in anaerobic bottle from 10/03, follow final results. Repeat blood cultures drawn today prior to abx - IV antibiotic therapy with daptomycin and Zosyn IV initiated, will continue - WBC 7.62, afebrile here -Serology for the bacteria have been negative so we will discontinue intravenous daptomycin -Likely to give Augmentin for cellulitis and to cover transient Bacteroides fragilis -Bilateral leg cellulitis/redness has improved a lot No more cellulitis of the legs Chronic leg edema with known lymphedema Condition has been worsened over the last week or so with increasing swelling Legs are very edematous and warm to touch with tenderness Antibiotics have been started with intravenous Zosyn and vancomycin Will be given additional doses of Lasix to take out some of the fluid as well Swelling of the legs have improved a lot following administration of Lasix We will change Lasix to oral from tomorrow Bilateral leg edema is really down (4) Anemia: Plan: -History of iron infusion on 10/03 at [facility], was transported to the ER on 10/03 after developing a fever after infusion. 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, PT/OT consults - Pt has associated chronic pain syndrome and is on buprenorphine, oxycodone/APAP 3/325 [id number] dose of morphine sulfate IV 2 mg in the ER along with Ativan with slight improvement, will give dose of oxycodone IR now x1 - PDMP reviewed (7) Paroxysmal SVT (supraventricular tachycardia): Plan: - History of such, EKG reviewed, difficult to chart to determine on monitor due to patient shivering, restless leg, missed afternoon dose of Requip and being anxious - Continue on warfarin daily with alternating doses of 2 mg and 4 mg - INR = 2.2 on admission -INR is elevated to 4.8 likely secondary to use of antibiotic and will hold any Coumadin INR result 2.60 (8) Gastroparesis: Plan: - Noted, pt reports being on probiotic, notes having soft BM today and possible diarrhea - If worsening then would check c. diff, no recent antibiotic use however -Her abdominal symptoms is in part due to gastroparesis (9) Hypothyroidism: Plan: - Continue levothyroxine 50 mcg daily DVT ppx: warfarin CODE: Full code Dispo: From [facility], likely to remain in the hospital 1-2d A total of 45 minutes were spent with the patient examining her and discussing the results of test with her, reviewing medications and changing medications as appropriate. Admission and Anticipated Discharge Date Admission Date: October 05, 2022 Subjective 10/06/2022 The patient was seen and examined in medical telemetry unit She has been feeling a little better and now is sitting at the edge of the bed Her swelling of the legs have improved and the redness of the legs have improved too No more fever and or chills He complains to have diarrhea for the last 2 weeks 10/07/2022 The patient was seen and examined in medical telemetry unit She has been feeling much better and denies to have any more diarrhea Diego weak and lethargic with minimal abdominal pain No fever and or chills 10/08/2022 The patient was seen and examined in medical telemetry unit She has been feeling much better today Abdominal pain and back pain resolved No diarrhea, no fever and no chills 10/09/2022 The patient was seen and examined in medical telemetry unit She has been feeling a little better but complains to pain in the abdomen No fever and or chills and no nausea or vomiting and no abdominal distention Review of Systems Review of Systems: All systems reviewed and are unremarkable except as noted below Gastrointestinal: Complains abdominal tenderness Physical Exam Physical Exam: Lying in bed without any acute distress Constitutional: average body habitus; not ill appearing Eyes: PERRL, conjunctivae normal, anicteric sclerae ENMT: external ear and nose normal, oropharynx normal Neck: trachea midline, no thyromegaly Respiratory: no respiratory distress Auscultation: + diminished lung sounds and + crackles (Minimal crackles at the bases) Cardiovascular: Rate/Rhythm: regular rate and regular rhythm; not tachycardic Heart Sounds: normal S1, normal S2 and + murmur Extremities: + edema (1+ edema bilaterally) Gastrointestinal (Abdomen): Inspection/Auscultation: normal bowel sounds; abdomen not distended Percussion/Palpation: + abdomen tender (Epigastric tenderness) and abdomen soft Musculoskeletal: No acute arthritis involving any joint Neurologic: normal touch/pain/proprioception and moves all extremities; no focal motor deficits Psychiatric: A+Ox3, euthymic affect Lymphatic: no cervical or axillary lymphadenopathy Results & Data Results & Data Vital Signs (Past 12 Hours) Vital Signs Temp Pulse Pulse Resp BP BP Pulse Ox 10/09/22 11:09 36.5 C 71 18 103/70 97 10/09/22 07:00 64 10/09/22 09:58 10/09/22 07:19 36.8 C 71 16 97/63 L 96 10/09/22 04:46 88 10/09/22 02:49 36.9 C 68 18 94/58 L 95 O2 Del Method 10/09/22 11:09 Room Air 10/09/22 07:00 10/09/22 09:58 Room Air 10/09/22 07:19 Room Air 10/09/22 04:46 10/09/22 02:49 Room Air Laboratory Results Short CBC 10/09/22 Range/Units 05:54 WBC 10.22 (4.8-10.8) K/ul Hgb 8.3 L (12.0-16.0) g/dl Hct 26.0 L (37.0-47.0) % Plt Count 289 (130-400) K/uL BMP 10/09/22 05:54 Sodium 134 L Potassium 3.7 Chloride 101 Carbon Dioxide 29 BUN 14 Creatinine 0.70 Glucose 98 Calcium 8.2 L Medications Administered Current Inpatient Medications Atorvastatin Calcium (Atorvastatin 20 Mg Tab) 20 mg PO [facility] Stop: 11/05/22 08:59 Last Admin: 10/09/22 07:58 Dose: 20 mg Buprenorphine HCl (Buprenorphine 15 Mcg/Patch Tdsy) 1 mcg TD Th@0900 [facility] Stop: 11/10/22 08:59 Carbidopa/Levodopa (Carbidopa/Levodopa 25/100mg Tab) 1 tab PO TID@0800,1200,2000 [facility] Stop: 11/04/22 19:59 Last Admin: 10/09/22 11:18 Dose: 1 tab Fluticasone Propionate (Fluticasone Propionate Na Spr 16 Gm Btl) 2 sprays NA D AILY [facility] Stop: 11/05/22 08:59 Last Admin: 10/09/22 08:05 Dose: 2 sprays Fluticasone/Vilanterol (Fluticasone/Vilanterol 100/25mcg 14 Puffs/Inhaler) 1 puffs INH [facility] Stop: 11/05/22 08:59 Last Admin: 10/09/22 08:04 Dose: 1 puffs Furosemide (Furosemide 40 Mg Tab) 40 mg PO [facility] Stop: 11/06/22 08:59 Last Admin: 10/09/22 07:58 Dose: 40 mg Hydroxyzine HCl (Hydroxyzine Hcl 25 Mg Tab) 25 mg PO Q6 PRN PRN Reason: ANXIETY/ITCHING Stop: 11/04/22 16:54 Last Admin: 10/08/22 20:54 Dose: 25 mg Piperacillin Sod/Tazobactam (Sod 3.375 gm/ Dextrose) 115 mls @ 28.75 mls/hr IV Q8H [facility]; Protocol Stop: 10/22/22 15:59 Last Infusion: 10/09/22 11:53 Dose: Infused Levothyroxine Sodium (Levothyroxine Sodium 50 Mcg Tablet) 50 mcg PO DAILYBB [facility] Stop: 11/05/22 06:29 Last Admin: 10/09/22 05:44 Dose: 50 mcg Metoprolol Tartrate (Metoprolol Tartrate 25 Mg Tab) 12.5 mg PO DAILY [facility] Stop: 11/05/22 08:59 Last Admin: 10/09/22 07:58 Dose: Not Given Mirtazapine (Mirtazapine Tab 15 Mg Tab) 15 mg PO [facility] Stop: 11/04/22 20:59 Last Admin: 10/08/22 20:43 Dose: 15 mg Miscellaneous (Check Buprenorphine Patch) 1 each N/A QS [facility] Stop: 11/07/22 15:59 Last Admin: 10/09/22 08:05 Dose: 1 each Miscellaneous (Remove & Waste Butrans Patch 1 Ea Ea) 1 each N/A Th@0859 [facility] Stop: 11/10/22 08:58 Montelukast Sodium (Montelukast Sodium 10 Mg Tablet) 10 mg PO [facility] Stop: 11/04/22 20:59 Last Admin: 10/08/22 20:45 Dose: 10 mg Multivitamins/Minerals (Cerovite Adv Formula Tab) 1 tab PO DAILY [facility] Stop: 11/05/22 08:59 Last Admin: 10/09/22 07:57 Dose: 1 tab Ondansetron HCl (Ondansetron Inj 2 Mg/Ml 2 Ml Vial) 4 mg IV Q4H PRN PRN Reason: Nausea And Vomiting Stop: 11/04/22 16:54 Oxycodone/Acetaminophen (Oxycodone/Acetaminophen 5mg/325mg Tab) 1 tab PO Q8H PRN PRN Reason: Pain (Scale Score 4-10) Stop: 10/19/22 16:54 Last Admin: 10/09/22 13:48 Dose: 1 tab Pantoprazole Sodium (Pantoprazole 40 Mg Tab) 40 mg PO DAILY [facility] Stop: 11/05/22 08:59 Last Admin: 10/08/22 20:47 Dose: 40 mg Polyethylene Glycol (Polyethylene (Miralax) 17 Gm Pack) 17 gm PO DAILY PRN PRN Reason: Constipation Stop: 11/06/22 20:18 Last Admin: 10/07/22 20:26 Dose: 17 gm Potassium Chloride (Potassium Chloride Pwd 20 Meq Pack) 40 meq PO QAM [facility] Stop: 11/05/22 08:59 Last Admin: 10/08/22 20:45 Dose: 40 meq Potassium Chloride (Potassium Chloride Pwd 20 Meq Pack) 20 meq PO PM [facility] Stop: 11/04/22 20:59 Last Admin: 10/08/22 21:08 Dose: 20 meq Ropinirole HCl (Ropinirole Hcl 1 Mg Tablet) 1 mg PO TID@0800,1200,1700 [facility] Stop: 11/04/22 17:29 Last Admin: 10/09/22 11:18 Dose: 1 mg Ropinirole HCl (Ropinirole Hcl 2 Mg Tablet) 2 mg PO DAILY@2000 [facility] Stop: 11/04/22 19:59 Last Admin: 10/08/22 20:43 Dose: 2 mg Saccharomyces Boulardii (Saccharomyces Boulardii 250 Mg Cap) 250 mg PO BID [facility] Stop: 11/04/22 20:59 Last Admin: 10/09/22 08:00 Dose: 250 mg Thiamine HCl (Thiamine Hcl 100 Mg Tab) 100 mg PO BID [facility] Stop: 11/04/22 20:59 Last Admin: 10/09/22 07:59 Dose: 100 mg Warfarin Sodium (Warfarin Sod 4 Mg Tab) 4 mg PO Q2D@1830 [facility] Stop: 11/04/22 18:29 Last Admin: 10/05/22 20:20 Dose: 4 mg Warfarin Sodium (Warfarin Sod 2 Mg Tab) 2 mg PO Q2D@1600 [facility] Stop: 11/05/22 15:59 Last Admin: 10/08/22 16:13 Dose: 2 mg (2) Fever Fever type: unspecified Qualified Code(s): R50.9 - Fever, unspecified
[2022-10-09] MEDS: ONDANSETRON INJ 2 MG/ML 2 ML VIAL IV PRN (16:06)
[2022-10-09] MEDS ORDERED: OPTIRAY 350 100ml IV ONE (17:49)
[2022-10-09] MEDS: WARFARIN SOD 4 MG TAB PO SCH (18:02)
[2022-10-09] MEDS: hydrOXYzine HCl 25 MG TAB PO PRN (18:02)
--- NOTE | 2022-10-09 18:14 | CT Scan Report ---
ABDOMEN AND PELVIS CT WITH IV AND ORAL CONTRAST CT DOSE: 633.02 mGy.cm HISTORY: Acute generalized abdominal pain r/o abscess TECHNIQUE: Multiaxial CT images of the abdomen and pelvis were performed following the IV administrat ion of 87 cc of Optiray and oral contrast. A dose lowering technique was utilized adhering to the pr inciples of ANAIS. COMPARISON STUDY: CT left hip 07/27/2022, CT abdomen and pelvis 02/06/2022 FINDINGS: Limited exam secondary to respiratory motion artifact and upper extremity positioning. Cardiomegaly w ith coronary artery calcifications. Trace pericardial effusions with mild dependent bibasilar atelect asis. No pneumatosis or pneumoperitoneum. Unremarkable spleen and adrenal glands. Cholecystectomy wit h moderate intrahepatic and extrahepatic biliary ductal dilation redemonstrated, mildly progressed fr om prior. Common bile duct is dilated measuring 1.7 cm. No obstructing biliary stone or lesion. Hepat ic duct measures up to 4 mm. Cystic structure of the uncinate process, 1.4 cm trace may represent a s idebranch IPMN. No hydronephrosis. Cortical scarring with areas of parenchymal thinning, spouse in the right kidney. 7 cm cyst within the inferior pole right kidney. Cisneros catheter noted within a decompressed urinary b ladder. Air within the bladder lumen is noted along with ventral wall thickening and perivesicular st randing. No abdominal aortic aneurysm or lymphadenopathy identified. Postoperative changes of the stomach and small bowel. Circumferential wall thickening with hyperemia noted within the mid sigmoid colon. Colonic diverticulosis. Multiloculated peripherally enhancing flu id collection the sigmoid mesocolon, 5.5 x 3.1 x 3.1 cm. Adjacent inflammatory stranding and trace fr ee fluid. Moderate colonic diverticulosis. The appendix is not definitively seen. Anasarca. Diastases recti with small anterior abdominal wall hernias redemonstrated. Degenerative changes of the spine, pelvis and hips. Lumbar levoscoliosis. IMPRESSION: 1. Acute sigmoid diverticulitis with 5.5 cm abscess/contained perforation within the sigmoid mesocolo n. 2. Trace pleural effusions with trace pelvic ascites and anasarca. 3. Cholecystectomy with intrahepatic and extrahepatic biliary ductal dilation redemonstrated. Correla tion with serum bilirubin recommended. 4. Additional findings as above. ACT 112: Negative or not required by law. The above report was generated using voice recognition software. It may contain grammatical, syntax o r spelling errors. Electronically signed by: Keshawn Foster M.D. 10/09/2022 6:12 PM
[2022-10-09] MEDS: rOPINIRole HCL 2 MG TABLET PO SCH (19:32)
[2022-10-09] MEDS: MIRTAZAPINE TAB 15 MG TAB PO SCH (19:32)
[2022-10-09] MEDS: MONTELUKAST SODIUM 10 MG TABLET PO SCH (19:33)
[2022-10-09] MEDS: POTASSIUM CHLORIDE PWD 20 MEQ PACK PO SCH (19:33)
[2022-10-10] MEDS: PIPERACILLIN/TAZOBACTAM 3.375 GM in DEXTROSE 5% 100 ML IV SCH ×4 (00:27→22:46)
[2022-10-10] MEDS: CHECK BUPRENORPHINE PATCH SCH ×4 (00:37→22:45)
--- NOTE | 2022-10-10 04:25 | Surgery Consultation ---
Date of Consultation October 10, 2022 Assessment & Plan (1) Diverticulitis: Due to the patient's noted diverticulitis we recommend proceeding as follows: I have made the patient n.p.o. I discussed with the hospitalist service that patient should be placed on maintenance fluids and they will take care of ordering that Would recommend continuing antibiotics. The patient is receiving Zosyn. Follow serial labsa CBC, chemistry profile, and coagulation studies were ordered for this morning and are pending. -The patient does take Coumadin for previous history of DVT. I have asked the medical service to place this medication on hold if possible as the patient may require procedural intervention At the present time the patient does not have an acute abdomen. She is resting comfortably in bed and is afebrile. She is not tachycardic. Her blood pressure readings were reviewed and her blood pressure readings do appear to be near baseline. I therefore do not feel patient requires an acute or emergent surgical procedure. It may be beneficial to discuss the CT scan findings with our interventional radiology colleagues to see if the patient's diverticular abscess is amendable to any type of percutaneous drainage Additional recommendations be forthcoming based on her clinical course as unfol ds as well as recommendations from my attending physician and interventional radiology. Supervising Physician Co-Signing Physician Notes patient seen and examined, labs and imaging reviewed, agree with above. 72 y/o female with mult abd surgeries including LRnYGB admitted for fevers following outpatient iron infusion. noted bacteremia with b fragilis on blood cx. ID recommended ct abd/pel. Appears to have pericolic abscess secondary to diverticulitis. No prior episodes of diverticulitis in past. ttp in llq, afvss. wbc normal. ct personally reviewed and note pericolic fluid collection, c/w likely abscess. recommend IR drainage, if not able to be performed then abx with f/u ct to ensure resolution. given extensive surgical history, any surgical intervention, either now or in future be performed by colorectal surgeon at tertiary center. surgery will follow. History of Present Illness Reason for Consultation: Diverticulitis with abscess Attending Physician: Radha South MD History of Present Illness This is a 72-year-old female who has been admitted to [facility] since 10/05/2022. The patient is a resident of [facility] in [place]. The patient says that she underwent an iron infusion on 10/03/2022 and subsequently developed a fever of 101.3 upon return to home. The patient had visiting nurses see her at her home facility where she was noted to have some worsening lymphedema of her lower extremities with concern for cellulitis. Because of this she was referred to the emergency department for further evaluation. Initially in the emergency department the patient underwent a chest x-ray where patient was not noted to have pneumonia. Initial labs the patient had included a CBC were white blood cell count was normal. Her hemoglobin and hematocrit were 8.8 and 27.8 and her platelet count was normal. Her INR is noted to be 3.2. Chemistry profile shows sodium and potassium are normal. Her BUN and creatinine were also noted to be normal. She was not noted to have any significant elevation of her bilirubin or transaminases but her alkaline phosphatase had a slight elevation at 146. A urinalysis was negative for infection. The patient did have blood cultures sent on that date and blood cultures from 10/03/2022 as well as 10/05/2022 were positive for B fragilis. The patient was started on antibiotics in the form of daptomycin and Zosyn. Because of the patient's positive blood cultures and infectious disease consultation was obtained. The infectious disease specialist did agree with antibiotics in the form of Zosyn which the patient was receiving. They also recommended patient undergo a CT scan of the abdomen and pelvis because of the positive blood cultures and they felt this could be from a source in the GI tract. The patient did undergo a CT scan of the abdomen and pelvis on 10/09/2022. This showed the patient had acute sigmoid diverticulitis with a 5.5 cm abscess/contained perforation within the sigmoid mesocolon. There is no pneumatosis or pneumoperitoneum noted on this exam. At the time of my visit with the patient I did question her on abdominal symptomatology. She does merely note that she was admitted to the hospital because of concern for cellulitis of her legs and fever that she noted after iron fusion as stated above. She notes that she has not been having much in the way of abdominal pain but does report that over the past several weeks she has been having diarrhea. She does note that she has not been having any melena, bright blood per rectum, or hematochezia. She denies any nausea or vomiting. She does note that she has had a colonoscopy in the past at which time she had a polyp removed. To the best of her knowledge she does not have any history of colon cancer. She also does not report any history of diverticulitis in the past. She notes that she has had multiple abdominal surgeries as she has had a gastric bypass surgery in 2000. She notes that she has lost nearly 200 pounds. She has also had a cholecystectomy. In addition, the patient notes that she has had at least 3 hernia repairs but to the best of her knowledge has never required any bowel or small bowel resection. She has also undergone a hysterectomy and an abdominoplasty. The patient's most recent labs were from 10/09/2022 and were reviewed. Her white blood cell count remains normal. Her hemoglobin and hematocrit are 8.3 and 26.0 and her platelet count is normal. Her INR is now 1.8. Chemistry profile shows sodium is 134 with a normal potassium as well as a normal BUN and creatinine. At the time of my interview the patient is resting comfortably in bed and she is in no distress. Her blood pressure has run anywhere from 90-110 systolic. She has not exhibited any tachycardia since admission. And she has been afebrile since 10/07/2022 at which time she had a low-grade fever of 37.6. Allergies Allergy/AdvReac Type Severity Reaction Status Date / Time ammonia Allergy Severe FACE, Verified 10/03/22 22:04 LIPS, TONGUE EDEMA buspirone Allergy Severe NEURO Verified 10/03/22 22:04 COMPLICATIONS duloxetine Allergy Intermediate RASH Verified 10/03/22 22:04 ITCHING lisinopril Allergy Intermediate cough Verified 10/03/22 22:04 adhesive Allergy Mild skin tears Verified 10/03/22 22:04 NSAIDS (Non-Steroidal Allergy Unknown not Verified 10/03/22 22:04 Anti-Inflamma supposed to use-S/P GASTRIC BYPASS vancomycin Allergy Unknown ON [place] Verified 10/03/22 22:04 MED LIST venlafaxine Allergy Unknown AFFECTS Verified 10/03/22 22:04 LEGS diphenhydramine AdvReac Intermediate RESTLESS Verified 10/03/22 22:04 LEGS gabapentin AdvReac Intermediate MUSCLE Verified 10/03/22 22:04 STIFFNESS Home Medications Medication Instructions Recorded Confirmed Type albuterol sulfate 90 mcg/actuation 2 inh inhalation Q6 PRN Shortness 01/09/22 10/05/22 History aerosol inhaler Of Breath Or Wheezing atorvastatin 20 mg tablet 20 mg PO QAM 01/09/22 10/05/22 History biotin 1 mg tablet 1 mg PO DAILY 01/09/22 10/05/22 History buprenorphine 15 mcg/hour weekly 1 patch topical WK 01/09/22 10/05/22 History transdermal patch carbidopa 25 mg-levodopa 100 mg 1 tab PO TID 01/09/22 10/05/22 History tablet ergocalciferol (vitamin D2) 1,250 1,250 mcg PO WK 01/09/22 10/05/22 History mcg (50,000 unit) capsule (Vitamin D2) fluticasone 100 mcg-salmeterol 50 1 inh inhalation BID 01/09/22 10/05/22 History mcg/dose blistr powdr for inhalation (Advair Diskus) fluticasone propionate 50 2 spray intranasal DAILY 01/09/22 10/05/22 History mcg/actuation nasal spray,suspension (Flonase Allergy Relief) hydroxyzine HCl 25 mg tablet 25 mg PO Q6 PRN ANXIETY/ITCHING 01/09/22 10/05/22 History levothyroxine 50 mcg tablet 50 mcg PO DAILY 01/09/22 10/05/22 History meclizine 25 mg tablet 25 mg PO TID PRN DIZZY 01/09/22 10/05/22 History metoprolol tartrate 25 mg tablet 12.5 mg PO DAILY 01/09/22 10/05/22 History montelukast 10 mg tablet 10 mg PO HS 01/09/22 10/05/22 History potassium chloride 20 mEq oral See Rx Instructions .Route .COMPLEX 01/09/22 10/05/22 History packet (Klor-Con) sennosides 8.6 mg-docusate sodium 1 tab-cap PO BID 01/09/22 10/05/22 History 50 mg tablet (Senna-S) thiamine HCl (vitamin B1) 100 mg 100 mg PO BID 01/09/22 10/05/22 History tablet vit C 250 mg-vit E 90 mg-zinc 40 1 tab PO DAILY 01/09/22 10/05/22 History mg-copper 1 no-sqzpar-cilhfg capsule (PreserVision AREDS-2) ropinirole 1 mg tablet 1 mg PO TID 04/28/22 10/05/22 History ropinirole 2 mg tablet 2 mg PO HS 04/28/22 10/05/22 History furosemide 20 mg tablet 40 mg PO UD 07/22/22 10/05/22 History mirtazapine 15 mg tablet 15 mg PO HS 07/22/22 10/05/22 History Saccharomyces boulardii 250 mg 250 mg PO BID 10/03/22 10/05/22 History capsule (Florastor) furosemide 20 mg tablet (Lasix) 20 mg PO DAILY PRN WT GAIN OF 3 10/03/22 10/05/22 History LBS OR MORE omega-3 fatty acids 1,000 mg 1,000 mg PO DAILY 10/03/22 10/05/22 History capsule omeprazole 40 mg capsule,delayed 40 mg PO DAILY 10/03/22 10/05/22 History release oxycodone-acetaminophen 5 mg-325 1 tab PO Q8H PRN Pain (Scale Score 10/03/22 10/05/22 History mg tablet (Percocet) 4-10) warfarin 2 mg tablet 2 mg PO Q OTHER DAY 10/03/22 10/05/22 History warfarin 4 mg tablet 4 mg PO Q OTHER DAY 10/03/22 10/05/22 History Patient History Medical History Abdominal hernia Acute exacerbation of chronic low back pain ADHD Anemia Asthma uses PRN INH 3-4 x wk Bulging of intervertebral disc Claustrophobia Coagulopathy Difficult intravenous access Dysphagia Edenilson-Danlos syndrome Fibromyalgia ISAC (generalized anxiety disorder) Gastroparesis GERD (gastroesophageal reflux disease) Hearing deficit History of colon polyps History of colon polyps History of DVT (deep vein thrombosis) chronic anticoagulation History of intestinal obstruction Hyperlipidemia Hypokalemia Hypothyroidism Opioid dependence Osteoarthritis Osteoporosis Peripheral neuropathy Protein C deficiency Pulmonary embolism 07/2018 - treated w/ lovenox - unk etiology Recurrent falls Renal cyst Restless leg syndrome Sleep apnea unable to tolerate CPAP Tachycardia Thoracic aortic aneurysm follows w/ Dr. Arredondo - evaluated within last 6 mo Thyroid nodule Weakness Surgical History History of abdominoplasty + hernia repair History of arthroscopy of left knee History of bilateral breast reduction surgery History of cholecystectomy History of colonoscopy History of esophagogastroduodenoscopy (EGD) History of gastric bypass History of intestinal surgery History of laparotomy History of left knee replacement History of right knee joint replacement History of tonsillectomy Hx of melanoma excision shoulder S/P hysterectomy Self extubation attempted post gastric bypass Status post biopsy of thyroid gland benign Family History Uncle Stomach cancer Other No family history of adverse response to anesthesia No pertinent family history in first degree relatives Social History Smoking Status: Unknown if ever smoked Second Hand Exposure: No; Do You Dip or Chew Tobacco: No; Tobacco Cessation Education Requested by Patient: No Hx Alcohol Use: No Hx Substance Use: No Preferred Language: Japanese Communication Ability: Effective Communication Ability Comment: pt is obtunded Visual Impairment: Limited Hearing Ability: Normal 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 How many Children do You have: 0 Other Information That Helps Us Care for You: No Feels Safe at Home: Yes Safety Concerns: Feels Safe At This Time Assistive Devices: Walker and Other Review of Systems Constitutional: + fever; no chills Eyes: + corrective lenses; no eye pain Ear, Nose, Mouth, Throat: no ear pain Respiratory: no cough and no dyspnea Cardiovascular: no chest pain Gastrointestinal: + diarrhea/loose stools; no abdominal pain, no nausea and no vomiting Genitourinary: no dysuria Musculoskeletal: no back pain Integumentary: + skin swelling (Lower extremity edema) Neurologic: no localized weakness Physical Exam Constitutional: WD/WN, vitals as above Eyes: no conjunctival abnormality ENMT: Ears: no hearing impairment and no external ear abnormality Mouth: no oropharynx abnormality Neck: trachea midline Respiratory: normal respiratory effort, lungs clear to auscultation Cardiovascular: Rate/Rhythm: regular rate and regular rhythm Gastrointestinal (Abdomen): Patient's abdomen is soft and nondistended. It is nonrigid. There is a well- healed midline incision. The patient did have a noted ventral hernia near her umbilicus that was nonpainful to palpation. Although the patient denied any abdominal pain on physical exam with deep palpation of the left lower quadrant she did have pain with palpation. There was no rebound tenderness or guarding. Musculoskeletal: Approximately 1+ lower extremity edema noted bilaterally Skin: no rashes Neurologic: moves all extremities Psychiatric: A+Ox3, euthymic affect Results & Data Vital Signs (Past 12 Hours) Vital Signs Temp Pulse Pulse Resp BP Pulse Ox O2 Del Method 10/10/22 00:00 59 L 10/10/22 00:51 Room Air 10/09/22 22:35 36.5 C 62 16 98/67 L 98 Room Air 10/09/22 19:47 36.6 C 67 18 93/61 L 94 Room Air PG Care Time/CCT Total # of Minutes Spent Total Time Spent with Patient: Total time spent is greater than 50% in coordination of care (as documented) at patient's floor/unit and/or counseling patient: Coding Level of Care Code 33243 INT INP/OBS CARE MIN Diagnoses Diverticulitis K57.92
[2022-10-10] MEDS: D5W AND 1/2NSS 1,000 ML IV SCH ×3 (05:12→19:20)
[2022-10-10] MEDS: LEVOTHYROXINE SODIUM 50 MCG TABLET PO SCH (05:13)
[2022-10-10 06:19] LABS: BUN Creatinine Ratio 18.7 (10-20); Calcium 8.4 mg/dl (8.6-10.3); Creatinine Clr Calc Pharmacy 61.2 ml/min; Est GFR (African American) 92.3 ml/min; Est GFR (Non-African American) 79.6 ml/min; Potassium 3.7 mmol/L (3.5-5.1)
[2022-10-10 06:23] LABS: Basophils # (auto) 0.03 K/uL (0-0.2); Basophils % (auto) 0.4 %; Eosinophils # (auto) 0.24 K/uL (0-0.50); Hematocrit (blood only) 26.3 % (37.0-47.0); Hemoglobin 8.3 g/dl (12.0-16.0); Immature Granulocytes # (auto) 0.05 K/uL (0.01-0.20); Immature Granulocytes % (auto) 0.6 %; Lymphocytes # (auto) 0.99 K/uL (1.2-3.4); Lymphocytes % (auto) 12.4 %; Mean Corpuscular Hemoglobin 26.5 pg (25.0-34.0); Mean Corpuscular Hgb Conc 31.6 g/dL (32.0-36.0); Mean Platelet Volume 10.5 fL (9.4-12.4); Monocytes # (auto) 0.95 K/uL (0.11-0.59); Monocytes % (auto) 11.9 %; Neutrophils # (auto) 5.74 K/uL (1.40-6.50); Neutrophils % (auto) 71.7 %; Platelet Count 279 K/uL (130-400); RDW Coefficient of Variation 16.6 % (11.5-14.5); RDW Standard Deviation 50.7 fL (36.4-46.3); Red Blood Count 3.13 M/uL (4.20-5.40)
[2022-10-10 07:11] LABS: INR 1.4 (0.9-1.1); Prothrombin Time 14.7 Seconds (9.0-12.0)
[2022-10-10] MEDS: SACCHAROMYCES BOULARDII 250 MG CAP PO SCH ×2 (08:11→19:19)
[2022-10-10] MEDS: METOPROLOL TARTRATE 25 MG TAB PO SCH (08:11)
[2022-10-10] MEDS: CARBIDOPA/LEVODOPA 25/100MG TAB PO SCH ×3 (08:11→19:19)
[2022-10-10] MEDS: THIAMINE HCL 100 MG TAB PO SCH ×2 (08:11→19:19)
[2022-10-10] MEDS: ATORVASTATIN 20 MG TAB PO SCH (08:12)
[2022-10-10] MEDS: FUROSEMIDE 40 MG TAB PO SCH (08:12)
[2022-10-10] MEDS: PANTOprazole 40 MG TAB PO SCH (08:13)
[2022-10-10] MEDS: CEROVITE ADV FORMULA TAB PO SCH (08:13)
[2022-10-10] MEDS: rOPINIRole HCL 1 MG TABLET PO SCH ×4 (08:13→19:19)
[2022-10-10] MEDS: FLUTICASONE/VILANTEROL 100/25MCG 14 PUFFS/INHALER INH SCH (08:15)
[2022-10-10] MEDS: FLUTICASONE PROPIONATE NA SPR 16 GM BTL SCH (08:15)
[2022-10-10] MEDS: POTASSIUM CHLORIDE PWD 20 MEQ PACK PO SCH ×2 (08:15→19:20)
[2022-10-10] MEDS: ONDANSETRON INJ 2 MG/ML 2 ML VIAL IV PRN (08:18)
[2022-10-10] MEDS: oxyCODONE/ACETAMINOPHEN 5mg/325mg TAB PO PRN ×2 (08:18→19:19)
[2022-10-10] MEDS ORDERED: fentaNYL citrate PF 100 MCG/2 ML VIAL ONE (11:31)
[2022-10-10] MEDS ORDERED: XYLOCAINE 1%/SOD BICARB 20 ML VIAL INFIL ONE (11:31)
--- NOTE | 2022-10-10 14:19 | CT Scan Report ---
LIMITED ABDOMEN AND PELVIS CT WITHOUT CONTRAST INDICATION: Possible diverticular abscess drain placement COMPARISON: CT abdomen and pelvis 10/09/2022 Technique: Multiaxial CT images of the abdomen and pelvis were performed without contrast. The patien t was placed in a right posterior oblique position on the CT exam table. FINDINGS: The multiloculated sigmoid fluid collection within the sigmoid mesocolon is again identifie d, however despite different patient positioning, the fluid collection is not amenable to percutaneou s drainage secondary to surrounding intestinal loops and adjacent iliac vessels. This was discussed w ith the patient and ordering physician. Case was reviewed with the attending radiologist. IMPRESSION: Diverticular abscess as previously noted, is not amenable to percutaneous drainage due to overlying a nd surrounding structures as detailed above. Performed, dictated, and signed by Hernan Win PA-C; to be co-signed by Dr. Keshawn Foster. Electronically signed by: Keshawn Foster M.D. 10/10/2022 2:35 PM
--- NOTE | 2022-10-10 18:25 | Hospitalist Progress Note ---
Date of Service October 10, 2022 Assessment & Plan (1) Bacteremia: (2) Fever: (3) Bilateral lower leg cellulitis: (4) Anemia: (5) Chronic pain syndrome: (6) Edenilson-Danlos syndrome: (7) Paroxysmal SVT (supraventricular tachycardia): (8) Gastroparesis: (9) Hypothyroidism: Plan CT A/P 11/09/22 1. Acute sigmoid diverticulitis with 5.5 cm abscess/contained perforation within the sigmoid mesocolon. 2. Trace pleural effusions with trace pelvic ascites and anasarca. 3. Cholecystectomy with intrahepatic and extrahepatic biliary ductal dilation redemonstrated. Correlation with serum bilirubin recommended. 4. Additional findings as above. Acute sigmoid diverticulitis with perforation with contained abscess Bacteroids bacteremia -Blood cultures 10/03 and 10/05 with Bacteroides fragilis, Will repeat blood clx to ensure resolution. - CT abdomen pelvis yesterday with with acute sigmoid diverticulitis with contained abscess. Patient is hemodynamically and clinically stable -Seen by surgery and recommended IR evaluation. Per surgery, given extensive surgical history, and surgical intervention either now or in the future surgery should be performed by colorectal surgeon at tertiary center. -Discussed with IR today who evaluated patient but unable to drain the abscess. We will continue antibiotics and follow-up with CT to ensure resolution -Continue Zosyn. -ID on board. Follow clinically. Anemia-hemoglobin stable at baseline, more than 8, status post iron transfusion at [place] recently Chronic leg edema with known lymphedema -Better. On p.o. Lasix condition has been worsened over the last week or so with increasing swelling Chronic pain syndrome -continue outpatient medication. 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 will continue to hold coumadin for now. No strong indication identified per chart review. CODE: Full code Dispo: Continue MedSurg, IV antibiotics and follow clinical trajectory. Patient is from [facility] Admission and Anticipated Discharge Date Admission Date: October 05, 2022 Subjective Patient was seen and examined bedside. She is tearful and crying that she is sick, states she always has something going on. States her lower abdomen is sore but denies any nausea vomiting, fever or chills. Had small bowel movement. Review of Systems Review of Systems: All systems reviewed & are unremarkable except as noted in Subjective Physical Exam Physical Exam: General: Sitting in in bed, not in distress, on room air Chest: Clear breath sounds bilaterally, no wheezes or crackles CVS: Regular rate and rhythm, normal heart sounds, no murmur Abdomen: Soft, mild on his lower abdomen, not distended, normal bowel sounds Neuro: Awake, alert, oriented, conversing well, non focal Extremities: No cyanosis, clubbing or edema Psych: Emotional, tearful, low mood Results & Data Results & Data Vital Signs (Past 12 Hours) Vital Signs Temp Pulse Pulse Resp BP BP Pulse Ox 10/10/22 16:32 59 L 17 101/63 95 10/10/22 15:12 62 10/10/22 15:09 36.5 C 73 18 76/45 L 98 10/10/22 11:02 36.6 C 59 L 16 101/56 L 95 10/10/22 09:38 10/10/22 07:46 36.5 C 60 20 111/71 95 10/10/22 07:18 60 O2 Del Method 10/10/22 16:32 Room Air 10/10/22 15:12 10/10/22 15:09 Room Air 10/10/22 11:02 Room Air 10/10/22 09:38 Room Air 10/10/22 07:46 Room Air 10/10/22 07:18 Laboratory Results Short CBC 10/10/22 Range/Units 05:25 WBC 8.00 (4.8-10.8) K/ul Hgb 8.3 L (12.0-16.0) g/dl Hct 26.3 L (37.0-47.0) % Plt Count 279 (130-400) K/uL BMP 10/10/22 05:25 Sodium 136 Potassium 3.7 Chloride 102 Carbon Dioxide 29 BUN 14 Creatinine 0.75 Glucose 93 Calcium 8.4 L Medications Administered Current Inpatient Medications Atorvastatin Calcium (Atorvastatin 20 Mg Tab) 20 mg PO QAM [facility] Stop: 11/05/22 08:59 Last Admin: 10/10/22 08:12 Dose: 20 mg Buprenorphine HCl (Buprenorphine 15 Mcg/Patch Tdsy) 1 mcg TD Th@0900 [facility] Stop: 11/10/22 08:59 Carbidopa/Levodopa (Carbidopa/Levodopa 25/100mg Tab) 1 tab PO TID@0800,1200,2000 [facility] Stop: 11/04/22 19:59 Last Admin: 10/10/22 12:34 Dose: 1 tab Fluticasone Propionate (Fluticasone Propionate Na Spr 16 Gm Btl) 2 sprays NA DAILY [facility] Stop: 11/05/22 08:59 Last Admin: 10/10/22 08:15 Dose: 2 sprays Fluticasone/Vilanterol (Fluticasone/Vilanterol 100/25mcg 14 Puffs/Inhaler) 1 pu ffs INH QAM [facility] Stop: 11/05/22 08:59 Last Admin: 10/10/22 08:15 Dose: 1 puffs Furosemide (Furosemide 40 Mg Tab) 40 mg PO QAM [facility] Stop: 11/06/22 08:59 Last Admin: 10/10/22 08:12 Dose: 40 mg Hydroxyzine HCl (Hydroxyzine Hcl 25 Mg Tab) 25 mg PO Q6 PRN PRN Reason: ANXIETY/ITCHING Stop: 11/04/22 16:54 Last Admin: 10/09/22 18:02 Dose: 25 mg Piperacillin Sod/Tazobactam (Sod 3.375 gm/ Dextrose) 115 mls @ 28.75 mls/hr IV Q8H [facility]; Protocol Stop: 10/22/22 15:59 Last Admin: 10/10/22 16:27 Dose: 28.8 mls/hr Dextrose/Sodium Chloride (D5w And 1/2nss) 1,000 mls @ 125 mls/hr IV .Q8H [facility] Stop: 11/09/22 04:14 Last Admin: 10/10/22 12:37 Dose: 125 mls/hr Levothyroxine Sodium (Levothyroxine Sodium 50 Mcg Tablet) 50 mcg PO DAILYBB [facility] Stop: 11/05/22 06:29 Last Admin: 10/10/22 05:13 Dose: 50 mcg Metoprolol Tartrate (Metoprolol Tartrate 25 Mg Tab) 12.5 mg PO DAILY [facility] Stop: 11/05/22 08:59 Last Admin: 10/10/22 08:11 Dose: 12.5 mg Mirtazapine (Mirtazapine Tab 15 Mg Tab) 15 mg PO HS [facility] Stop: 11/04/22 20:59 Last Admin: 10/09/22 19:32 Dose: 15 mg Miscellaneous (Check Buprenorphine Patch) 1 each N/A QS [facility] Stop: 11/07/22 15:59 Last Admin: 10/10/22 16:28 Dose: 1 each Miscellaneous (Remove & Waste Butrans Patch 1 Ea Ea) 1 each N/A Th@0859 [facility] Stop: 11/10/22 08:58 Montelukast Sodium (Montelukast Sodium 10 Mg Tablet) 10 mg PO HS [facility] Stop: 11/04/22 20:59 Last Admin: 10/09/22 19:33 Dose: 10 mg Multivitamins/Minerals (Cerovite Adv Formula Tab) 1 tab PO DAILY [facility] Stop: 11/05/22 08:59 Last Admin: 10/10/22 08:13 Dose: 1 tab Ondansetron HCl (Ondansetron Inj 2 Mg/Ml 2 Ml Vial) 4 mg IV Q4H PRN PRN Reason: Nausea And Vomiting Stop: 11/04/22 16:54 Last Admin: 10/10/22 08:18 Dose: 4 mg Oxycodone/Acetaminophen (Oxycodone/Acetaminophen 5mg/325mg Tab) 1 tab PO Q8H PRN PRN Reason: Pain (Scale Score 4-10) Stop: 10/19/22 16:54 Last Admin: 10/10/22 08:18 Dose: 1 tab Pantoprazole Sodium (Pantoprazole 40 Mg Tab) 40 mg PO DAILY [facility] Stop: 11/05/22 08:59 Last Admin: 10/10/22 08:13 Dose: 40 mg Polyethylene Glycol (Polyethylene (Miralax) 17 Gm Pack) 17 gm PO DAILY PRN PRN Reason: Constipation Stop: 11/06/22 20:18 Last Admin: 10/07/22 20:26 Dose: 17 gm Potassium Chloride (Potassium Chloride Pwd 20 Meq Pack) 40 meq PO QAM [facility] Stop: 11/05/22 08:59 Last Admin: 10/10/22 08:15 Dose: Not Given Potassium Chloride (Potassium Chloride Pwd 20 Meq Pack) 20 meq PO PM [facility] Stop: 11/04/22 20:59 Last Admin: 10/09/22 19:33 Dose: 20 meq Ropinirole HCl (Ropinirole Hcl 1 Mg Tablet) 1 mg PO TID@0800,1200,1700 [facility] Stop: 11/04/22 17:29 Last Admin: 10/10/22 16:27 Dose: 1 mg Ropinirole HCl (Ropinirole Hcl 2 Mg Tablet) 2 mg PO DAILY@1999 [facility] Stop: 11/04/22 19:59 Last Admin: 10/09/22 19:32 Dose: 2 mg Saccharomyces Boulardii (Saccharomyces Boulardii 250 Mg Cap) 250 mg PO BID [facility] Stop: 11/04/22 20:59 Last Admin: 10/10/22 08:11 Dose: 250 mg Thiamine HCl (Thiamine Hcl 100 Mg Tab) 100 mg PO BID [facility] Stop: 11/04/22 20:59 Last Admin: 10/10/22 08:11 Dose: 100 mg (2) Fever Fever type: unspecified Qualified Code(s): R50.9 - Fever, unspecified
[2022-10-10] MEDS: MONTELUKAST SODIUM 10 MG TABLET PO SCH (19:19)
[2022-10-10] MEDS: MIRTAZAPINE TAB 15 MG TAB PO SCH (19:19)
[2022-10-10] MEDS: rOPINIRole HCL 2 MG TABLET PO SCH (19:22)
[2022-10-11] MEDS: oxyCODONE/ACETAMINOPHEN 5mg/325mg TAB PO PRN ×3 (02:56→20:36)
[2022-10-11] MEDS: D5W AND 1/2NSS 1,000 ML IV SCH ×3 (06:17→21:40)
[2022-10-11] MEDS: LEVOTHYROXINE SODIUM 50 MCG TABLET PO SCH (06:18)
[2022-10-11] MEDS: CHECK BUPRENORPHINE PATCH SCH ×3 (07:57→23:54)
[2022-10-11] MEDS: CARBIDOPA/LEVODOPA 25/100MG TAB PO SCH ×3 (08:00→20:32)
[2022-10-11] MEDS: PIPERACILLIN/TAZOBACTAM 3.375 GM in DEXTROSE 5% 100 ML IV SCH ×3 (08:05→23:29)
[2022-10-11 08:19] LABS: Hematocrit (blood only) 28.9 % (37.0-47.0); Hemoglobin 8.9 g/dl (12.0-16.0); Mean Corpuscular Hemoglobin 26.3 pg (25.0-34.0); Mean Corpuscular Hgb Conc 30.8 g/dL (32.0-36.0); Mean Corpuscular Volume 85.5 fL (80.0-100.0); Mean Platelet Volume 10.3 fL (9.4-12.4); Platelet Count 349 K/uL (130-400); RDW Coefficient of Variation 16.7 % (11.5-14.5); RDW Standard Deviation 52.4 fL (36.4-46.3); Red Blood Count 3.38 M/uL (4.20-5.40); White Blood Count 6.82 K/ul (4.8-10.8)
[2022-10-11 08:49] LABS: Calcium 8.6 mg/dl (8.6-10.3); Creatinine Clr Calc Pharmacy 59.1 ml/min; Est GFR (African American) 92.3 ml/min; Est GFR (Non-African American) 79.6 ml/min; Phosphorus 3.1 mg/dl (2.5-4.9); Potassium 3.4 mmol/L (3.5-5.1)
[2022-10-11] MEDS: POTASSIUM CHLORIDE PWD 20 MEQ PACK PO SCH ×3 (08:50→20:33)
[2022-10-11] MEDS: THIAMINE HCL 100 MG TAB PO SCH ×2 (08:51→20:32)
[2022-10-11] MEDS: METOPROLOL TARTRATE 25 MG TAB PO SCH (08:51)
[2022-10-11] MEDS: ATORVASTATIN 20 MG TAB PO SCH (08:51)
[2022-10-11] MEDS: FUROSEMIDE 40 MG TAB PO SCH (08:51)
[2022-10-11] MEDS: PANTOprazole 40 MG TAB PO SCH (08:51)
[2022-10-11] MEDS: ENOXAPARIN INJ 40 MG/0.4 ML SYR SQ SCH (08:51)
[2022-10-11] MEDS: SACCHAROMYCES BOULARDII 250 MG CAP PO SCH ×2 (08:51→20:33)
[2022-10-11] MEDS: CEROVITE ADV FORMULA TAB PO SCH (08:51)
[2022-10-11] MEDS: FLUTICASONE PROPIONATE NA SPR 16 GM BTL SCH (08:52)
[2022-10-11] MEDS: FLUTICASONE/VILANTEROL 100/25MCG 14 PUFFS/INHALER INH SCH (08:57)
[2022-10-11] MEDS ORDERED: BUPRENORPHINE TD SCH ×2 (09:00)
[2022-10-11] MEDS ORDERED: TDSY TD SCH ×2 (09:00)
--- NOTE | 2022-10-11 10:29 | Surgery Progress Note ---
Date of Service October 11, 2022 Assessment & Plan (1) Diverticulitis: Plan: Patient with recently history of bacteremia found to have perforated diverticulitis with abscess WBC 6.8. She is afebrile IR evaluated patient for CT guided drain placement, but unfortunately no safe window was found to perform procedure Abdomen is soft with mild discomfort in lower mid/left abdomen. She is passing flatus. No nausea. Tolerating clears Can consider advancing to full liquids ID following given bacteremia and diverticulitis with abscess. She may benefit from a prolonged course of IV abx with outpt CT scan to ensure diverticular abscess improving No plans for surgical intervention here...if patient deteriorates would send her to tertiary center with colorectal available given extensive surgical history including bypass Admission and Anticipated Discharge Date Admission Date: October 05, 2022 Supervising Physician Co-Signing Physician Notes pnt S&E, agree with above. pericolic abscess not ammenable to drainage. AFVSS, minimally ttp in llq. wbc normal. recommend treatment with sheep sorter iv abx. will need picc and ID recs. Follow up ct as outpatient. may have low fiber diet. due for outpatient colonoscopy if and when infalmmation resolves. Subjective Patient feeling okay this AM. Denies any abdominal pain unless she is trying to have a BM. She is passing flatus along with a small BM. Denies nausea currently. Tolerating clear liquids. Physical Exam Physical Exam: awake/alert, no distress Respiratory: normal respiratory effort Gastrointestinal (Abdomen): Inspection/Auscultation: abdomen not distended Percussion/Palpation: + abdomen tender (mild discomfort in lower mid/left lower abdomen) and abdomen soft Results & Data Vital Signs (Past 12 Hours) Vital Signs Temp Pulse Pulse Resp BP Pulse Ox O2 Del Method 10/11/22 08:06 36.5 C 63 18 101/64 95 Room Air 10/11/22 06:28 58 L 10/11/22 03:06 36.7 C 67 16 91/59 L 93 Room Air 10/11/22 01:00 56 L 10/10/22 23:18 36.5 C 57 L 16 89/58 L 95 Room Air 10/10/22 23:00 Room Air PG Care Time/CCT Total # of Minutes Spent Total Time Spent with Patient: Total time spent is greater than 50% in coordination of care (as documented) at patient's floor/unit and/or counseling patient: Coding Level of Care Code 77755 SUB INP/OBS CARE Diagnoses Diverticulitis K57.92
[2022-10-11] MEDS: rOPINIRole HCL 1 MG TABLET PO SCH ×2 (11:09→16:30)
--- NOTE | 2022-10-11 17:58 | Consultation ---
Date of Consultation October 11, 2022 Assessment & Plan (1) Bacteremia: (2) Fever: (3) Bilateral lower leg cellulitis: (4) Anemia: (5) Chronic pain syndrome: (6) Edenilson-Danlos syndrome: (7) Paroxysmal SVT (supraventricular tachycardia): (8) Gastroparesis: (9) Hypothyroidism: Plan CT A/P 11/09/22 1. Acute sigmoid diverticulitis with 5.5 cm abscess/contained perforation within the sigmoid mesocolon. 2. Trace pleural effusions with trace pelvic ascites and anasarca. 3. Cholecystectomy with intrahepatic and extrahepatic biliary ductal dilation redemonstrated. Correlation with serum bilirubin recommended. 4. Additional findings as above. Acute sigmoid diverticulitis with perforation with contained abscess Bacteroids bacteremia -Blood cultures 10/03 and 10/05 with Bacteroides fragilis, Will repeat blood clx to ensure resolution. - CT abdomen pelvis yesterday with with acute sigmoid diverticulitis with contained abscess. Patient is hemodynamically and clinically stable -Seen by surgery and recommended IR evaluation. Per surgery, given extensive surgical history, and surgical intervention either now or in the future surgery should be performed by colorectal surgeon at tertiary center. -Discussed with IR today who evaluated patient but unable to drain the abscess. We will continue antibiotics and follow-up with CT to ensure resolution -Continue Zosyn. -ID on board. Follow clinically. Anemia-hemoglobin stable at baseline, more than 8, status post iron transfusion at [place] recently Chronic leg edema with known lymphedema -Better. On p.o. Lasix condition has been worsened over the last week or so with increasing swelling Chronic pain syndrome -continue outpatient medication. 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 will continue to hold coumadin for now. No strong indication identified per chart review. CODE: Full code Dispo: Continue MedSurg, IV antibiotics and follow clinical trajectory. Patient is from [facility] History of Present Illness Attending Physician: Aleksey Joseph MD Allergies Allergy/AdvReac Type Severity Reaction Status Date / Time ammonia Allergy Severe FACE, Verified 10/03/22 22:04 LIPS, TONGUE EDEMA buspirone Allergy Severe NEURO Verified 10/03/22 22:04 COMPLICATIONS duloxetine Allergy Intermediate RASH Verified 10/03/22 22:04 ITCHING lisinopril Allergy Intermediate cough Verified 10/03/22 22:04 adhesive Allergy Mild skin tears Verified 10/03/22 22:04 NSAIDS (Non-Steroidal Allergy Unknown not Verified 10/03/22 22:04 Anti-Inflamma supposed to use-S/P GASTRIC BYPASS vancomycin Allergy Unknown ON [facility] Verified 10/03/22 22:04 MED LIST venlafaxine Allergy Unknown AFFECTS Verified 10/03/22 22:04 LEGS diphenhydramine AdvReac Intermediate RESTLESS Verified 10/03/22 22:04 LEGS gabapentin AdvReac Intermediate MUSCLE Verified 10/03/22 22:04 STIFFNESS Home Medications Medication Instructions Recorded Confirmed Type albuterol sulfate 90 mcg/actuation 2 inh inhalation Q6 PRN Shortness 01/09/22 10/05/22 History aerosol inhaler Of Breath Or Wheezing atorvastatin 20 mg tablet 20 mg PO QAM 01/09/22 10/05/22 History biotin 1 mg tablet 1 mg PO DAILY 01/09/22 10/05/22 History buprenorphine 15 mcg/hour weekly 1 patch topical WK 01/09/22 10/05/22 History transdermal patch carbidopa 25 mg-levodopa 100 mg 1 tab PO TID 01/09/22 10/05/22 History tablet ergocalciferol (vitamin D2) 1,250 1,250 mcg PO WK 01/09/22 10/05/22 History mcg (50,000 unit) capsule (Vitamin D2) fluticasone 100 mcg-salmeterol 50 1 inh inhalation BID 01/09/22 10/05/22 History mcg/dose blistr powdr for inhalation (Advair Diskus) fluticasone propionate 50 2 spray intranasal DAILY 01/09/22 10/05/22 History mcg/actuation nasal spray,suspension (Flonase Allergy Relief) hydroxyzine HCl 25 mg tablet 25 mg PO Q6 PRN ANXIETY/ITCHING 01/09/22 10/05/22 History levothyroxine 50 mcg tablet 50 mcg PO DAILY 01/09/22 10/05/22 History meclizine 25 mg tablet 25 mg PO TID PRN DIZZY 01/09/22 10/05/22 History metoprolol tartrate 25 mg tablet 12.5 mg PO DAILY 01/09/22 10/05/22 History montelukast 10 mg tablet 10 mg PO HS 01/09/22 10/05/22 History potassium chloride 20 mEq oral See Rx Instructions .Route .COMPLEX 01/09/22 10/05/22 History packet (Klor-Con) sennosides 8.6 mg-docusate sodium 1 tab-cap PO BID 01/09/22 10/05/22 History 50 mg tablet (Senna-S) thiamine HCl (vitamin B1) 100 mg 100 mg PO BID 01/09/22 10/05/22 History tablet vit C 250 mg-vit E 90 mg-zinc 40 1 tab PO DAILY 01/09/22 10/05/22 History mg-copper 1 [id number] capsule (PreserVision AREDS-2) ropinirole 1 mg tablet 1 mg PO TID 04/28/22 10/05/22 History ropinirole 2 mg tablet 2 mg PO HS 04/28/22 10/05/22 History furosemide 20 mg tablet 40 mg PO UD 07/22/22 10/05/22 History mirtazapine 15 mg tablet 15 mg PO HS 07/22/22 10/05/22 History Saccharomyces boulardii 250 mg 250 mg PO BID 10/03/22 10/05/22 History capsule (Florastor) furosemide 20 mg tablet (Lasix) 20 mg PO DAILY PRN WT GAIN OF 3 10/03/22 10/05/22 History LBS OR MORE omega-3 fatty acids 1,000 mg 1,000 mg PO DAILY 10/03/22 10/05/22 History capsule omeprazole 40 mg capsule,delayed 40 mg PO DAILY 10/03/22 10/05/22 History release oxycodone-acetaminophen 5 mg-325 1 tab PO Q8H PRN Pain (Scale Score 10/03/22 10/05/22 History mg tablet (Percocet) 4-10) warfarin 2 mg tablet 2 mg PO Q OTHER DAY 10/03/22 10/05/22 History warfarin 4 mg tablet 4 mg PO Q OTHER DAY 10/03/22 10/05/22 History Patient History Medical History Abdominal hernia Acute exacerbation of chronic low back pain ADHD Anemia Asthma uses PRN INH 3-4 x wk Bulging of intervertebral disc Claustrophobia Coagulopathy Difficult intravenous access Dysphagia Edenilson-Danlos syndrome Fibromyalgia ISAC (generalized anxiety disorder) Gastroparesis GERD (gastroesophageal reflux disease) Hearing deficit History of colon polyps History of colon polyps History of DVT (deep vein thrombosis) chronic anticoagulation History of intestinal obstruction Hyperlipidemia Hypokalemia Hypothyroidism Opioid dependence Osteoarthritis Osteoporosis Peripheral neuropathy Protein C deficiency Pulmonary embolism 07/2018 - treated w/ lovenox - unk etiology Recurrent falls Renal cyst Restless leg syndrome Sleep apnea unable to tolerate CPAP Tachycardia Thoracic aortic aneurysm follows w/ Dr. Arredondo - evaluated within last 6 mo Thyroid nodule Weakness Surgical History History of abdominoplasty + hernia repair History of arthroscopy of left knee History of bilateral breast reduction surgery History of cholecystectomy History of colonoscopy History of esophagogastroduodenoscopy (EGD) History of gastric bypass History of intestinal surgery History of laparotomy History of left knee replacement History of right knee joint replacement History of tonsillectomy Hx of melanoma excision shoulder S/P hysterectomy Self extubation attempted post gastric bypass Status post biopsy of thyroid gland benign Family History Uncle Stomach cancer Other No family history of adverse response to anesthesia No pertinent family history in first degree relatives Social History Smoking Status: Unknown if ever smoked Second Hand Exposure: No; Do You Dip or Chew Tobacco: No; Tobacco Cessation Education Requested by Patient: No Hx Alcohol Use: No Hx Substance Use: No Preferred Language: Maltese Communication Ability: Effective Communication Ability Comment: pt is obtunded Visual Impairment: Limited Hearing Ability: Normal [employer] Required: No Beliefs That Will Affect Care: None marital status: Single Current Living Situation: Alone Current Living Situation Comment: Condo - First Floor, able to specify name of Apartment Complex. How many Children do You have: 0 Other Information That Helps Us Care for You: No Feels Safe at Home: Yes Safety Concerns: Feels Safe At This Time Assistive Devices: Walker and Other Results & Data Vital Signs (Past 12 Hours) Vital Signs Temp Pulse Pulse Resp BP BP Pulse Ox 10/11/22 17:22 36.5 C 63 18 96/59 L 91/64 L 100 10/11/22 17:18 36.4 C L 60 17 80/53 L 100 10/11/22 14:16 57 L 10/11/22 12:22 37.0 C 56 L 17 89/54 L 97 10/11/22 08:00 10/11/22 08:06 36.5 C 63 18 101/64 95 10/11/22 06:28 58 L O2 Del Method 10/11/22 17:22 Room Air 10/11/22 17:18 Room Air 10/11/22 14:16 10/11/22 12:22 Room Air 10/11/22 08:00 Room Air 10/11/22 08:06 Room Air 10/11/22 06:28 (2) Fever Fever type: unspecified Qualified Code(s): R50.9 - Fever, unspecified
--- NOTE | 2022-10-11 18:05 | Hospitalist Progress Note ---
Date of Service October 11, 2022 Assessment & Plan (1) Bacteremia: (2) Fever: (3) Bilateral lower leg cellulitis: (4) Anemia: (5) Chronic pain syndrome: (6) Edenilson-Danlos syndrome: (7) Paroxysmal SVT (supraventricular tachycardia): (8) Gastroparesis: (9) Hypothyroidism: Plan CT A/P 11/09/22 1. Acute sigmoid diverticulitis with 5.5 cm abscess/contained perforation within the sigmoid mesocolon. 2. Trace pleural effusions with trace pelvic ascites and anasarca. 3. Cholecystectomy with intrahepatic and extrahepatic biliary ductal dilation redemonstrated. Correlation with serum bilirubin recommended. 4. Additional findings as above. Acute sigmoid diverticulitis with perforation with contained abscess Bacteroids bacteremia -Blood cultures 10/03 and 10/05 with Bacteroides fragilis, Will repeat blood clx to ensure resolution. - CT abdomen pelvis with with acute sigmoid diverticulitis with contained abscess. Patient is hemodynamically and clinically stable -Seen by surgery and recommended IR evaluation. Per surgery, given extensive surgical history, and surgical intervention either now or in the future surgery should be performed by colorectal surgeon at tertiary center. - Evaluated by IR- unable to drain the abscess. - Continue zosyn and follow-up with CT to ensure resolution - Will discuss with ID for final antibiotic recommendation. Will need PICC line. Awaiting clearance of bacteremia prior to placing PICC line - Tolerating clears well- advance diet to low fiber as tolerated- OP colonoscopy once recovers Anemia-hemoglobin stable at baseline, more than 8, status post iron transfusion at [place] recently Chronic leg edema with known lymphedema -Better. On p.o. Lasix condition has been worsened over the last week or so with increasing swelling Chronic pain syndrome -continue outpatient medication. 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 will continue to hold coumadin for now. No strong indication identified per chart review. CODE: Full code Dispo: Continue iv antibiotics, PICC line and OP follow up with CT to ensure resolution. Awaiting clearance of bacteremia. Admission and Anticipated Discharge Date Admission Date: October 05, 2022 Subjective Patient was seen and examined at bedside. Tolerating clears well without issues. Still has some lower abdominal tenderness. Had small bowel movements. No nausea or vomiting. No fever or chills. She is intermittently emotional and tearful. She is wondering when she will be discharged. Review of Systems Review of Systems: All systems reviewed & are unremarkable except as noted in Subjective Physical Exam Physical Exam: General: Lying comfortably in bed, not in distress, on room air HEENT: EOMI, JORDAN, MMM Chest: Clear breath sounds bilaterally, no wheezes or crackles CVS: Regular rate and rhythm, normal heart sounds, no murmur Abdomen: Soft, mild lower abdominal tenderness not distended, normal bowel soun ds Neuro: Awake, alert, oriented, conversing well, non focal Extremities: No cyanosis, clubbing or edema Results & Data Results & Data Vital Signs (Past 12 Hours) Vital Signs Temp Pulse Pulse Resp BP BP Pulse Ox 10/11/22 17:22 36.5 C 63 18 96/59 L 91/64 L 100 10/11/22 17:18 36.4 C L 60 17 80/53 L 100 10/11/22 14:16 57 L 10/11/22 12:22 37.0 C 56 L 17 89/54 L 97 10/11/22 08:00 10/11/22 08:06 36.5 C 63 18 101/64 95 10/11/22 06:28 58 L O2 Del Method 10/11/22 17:22 Room Air 10/11/22 17:18 Room Air 10/11/22 14:16 10/11/22 12:22 Room Air 10/11/22 08:00 Room Air 10/11/22 08:06 Room Air 10/11/22 06:28 Laboratory Results Short CBC 10/11/22 Range/Units 07:35 WBC 6.82 (4.8-10.8) K/ul Hgb 8.9 L (12.0-16.0) g/dl Hct 28.9 L (37.0-47.0) % Plt Count 349 (130-400) K/uL BMP 10/11/22 07:35 Sodium 137 Potassium 3.4 L Chloride 102 Carbon Dioxide 30 BUN 12 Creatinine 0.75 Glucose 111 H Calcium 8.6 Cardiac Enzymes 10/11/22 Range/Units 17:32 Total Creatine Kinase Cancelled (2) Fever Fever type: unspecified Qualified Code(s): R50.9 - Fever, unspecified
[2022-10-11] MEDS: MIRTAZAPINE TAB 15 MG TAB PO SCH (20:32)
[2022-10-11] MEDS: MONTELUKAST SODIUM 10 MG TABLET PO SCH (20:32)
[2022-10-11] MEDS: rOPINIRole HCL 2 MG TABLET PO SCH (20:33)
[2022-10-12] MEDS: hydrOXYzine HCl 25 MG TAB PO PRN (03:15)
[2022-10-12] MEDS: ONDANSETRON INJ 2 MG/ML 2 ML VIAL IV PRN ×2 (03:26→09:54)
[2022-10-12] MEDS: oxyCODONE/ACETAMINOPHEN 5mg/325mg TAB PO PRN ×2 (04:42→23:35)
[2022-10-12] MEDS: D5W AND 1/2NSS 1,000 ML IV SCH ×3 (04:53→21:48)
[2022-10-12] MEDS: LEVOTHYROXINE SODIUM 50 MCG TABLET PO SCH (04:53)
[2022-10-12] MEDS: rOPINIRole HCL 1 MG TABLET PO SCH ×3 (05:17→16:17)
[2022-10-12] MEDS: SACCHAROMYCES BOULARDII 250 MG CAP PO SCH ×2 (08:45→21:44)
[2022-10-12] MEDS: FUROSEMIDE 40 MG TAB PO SCH (08:46)
[2022-10-12] MEDS: METOPROLOL TARTRATE 25 MG TAB PO SCH (08:46)
[2022-10-12] MEDS: CEROVITE ADV FORMULA TAB PO SCH (08:46)
[2022-10-12] MEDS: CARBIDOPA/LEVODOPA 25/100MG TAB PO SCH ×3 (08:47→19:51)
[2022-10-12] MEDS: ATORVASTATIN 20 MG TAB PO SCH (08:47)
[2022-10-12] MEDS: PANTOprazole 40 MG TAB PO SCH (08:47)
[2022-10-12] MEDS: THIAMINE HCL 100 MG TAB PO SCH ×2 (08:47→21:44)
[2022-10-12] MEDS: FLUTICASONE PROPIONATE NA SPR 16 GM BTL SCH (08:48)
[2022-10-12] MEDS: CHECK BUPRENORPHINE PATCH SCH ×3 (08:48→23:43)
[2022-10-12] MEDS: FLUTICASONE/VILANTEROL 100/25MCG 14 PUFFS/INHALER INH SCH (08:50)
[2022-10-12] MEDS: ENOXAPARIN INJ 40 MG/0.4 ML SYR SQ SCH (08:50)
[2022-10-12] MEDS: PIPERACILLIN/TAZOBACTAM 3.375 GM in DEXTROSE 5% 100 ML IV SCH ×3 (08:54→23:38)
--- NOTE | 2022-10-12 10:40 | Surgery Progress Note ---
Date of Service October 12, 2022 Assessment & Plan (1) Diverticulitis: Plan: bacteremia, pericolic abscess. Worsened pain. npo except meds cont abx kub labs [facility] surgery covering over weekend if needs surgery would recommend tertiary center. (2) Bacteremia: Admission and Anticipated Discharge Date Admission Date: October 05, 2022 Subjective multiple prior abd surgeries, medical problems, admitted with bacteremia, CT showed diverticular abscess, not amenable to drainage. feels burning in stomach, nausea. Physical Exam Constitutional: WD/WN, vitals as above Gastrointestinal (Abdomen): Percussion/Palpation: + abdomen tender (llq and epigatrium); no guarding and abdomen not rigid Results & Data Vital Signs (Past 12 Hours) Vital Signs Temp Pulse Pulse Resp BP Pulse Ox O2 Del Method 10/12/22 08:15 36.7 C 64 16 95/59 L 94 Room Air 10/12/22 07:15 58 L 10/12/22 03:08 36.5 C 65 110/70 96 Room Air 10/12/22 00:00 56 L 10/11/22 23:30 97/62 L PG Care Time/CCT Total # of Minutes Spent Total Time Spent with Patient: Total time spent is greater than 50% in coordination of care (as documented) at patient's floor/unit and/or counseling patient: Coding Level of Care Code 04904 SUB INP/OBS CARE 2/35MIN Diagnoses Diverticulitis K57.92 Bacteremia R78.81
[2022-10-12 11:10] LABS: Basophils # (auto) 0.05 K/uL (0-0.2); Basophils % (auto) 0.7 %; Eosinophils # (auto) 0.34 K/uL (0-0.50); Eosinophils % (auto) 4.9 %; Hematocrit (blood only) 29.3 % (37.0-47.0); Hemoglobin 9.1 g/dl (12.0-16.0); Immature Granulocytes # (auto) 0.03 K/uL (0.01-0.20); Immature Granulocytes % (auto) 0.4 %; Lymphocytes # (auto) 0.94 K/uL (1.2-3.4); Lymphocytes % (auto) 13.7 %; Mean Corpuscular Hemoglobin 26.7 pg (25.0-34.0); Mean Corpuscular Hgb Conc 31.1 g/dL (32.0-36.0); Mean Corpuscular Volume 85.9 fL (80.0-100.0); Monocytes # (auto) 0.86 K/uL (0.11-0.59); Monocytes % (auto) 12.5 %; Neutrophils # (auto) 4.66 K/uL (1.40-6.50); Neutrophils % (auto) 67.8 %; Platelet Count 335 K/uL (130-400); RDW Coefficient of Variation 16.6 % (11.5-14.5); RDW Standard Deviation 51.8 fL (36.4-46.3); Red Blood Count 3.41 M/uL (4.20-5.40); White Blood Count 6.88 K/ul (4.8-10.8)
[2022-10-12 11:26] LABS: Albumin Level 2.9 gm/dl (3.4-5.0); BUN Creatinine Ratio 15.2 (10-20); Bilirubin,Total 0.3 mg/dl (0.2-1.0); Calcium 8.6 mg/dl (8.6-10.3); Creatinine Clr Calc Pharmacy 66.9 ml/min; Est GFR (African American) 102.3 ml/min; Est GFR (Non-African American) 88.3 ml/min; Globulin 2.8 gm/dl (2.5-4.0); Potassium 3.4 mmol/L (3.5-5.1); Total Protein 5.7 gm/dl (6.0-8.3)
--- NOTE | 2022-10-12 12:28 | XRay Report ---
KUB CLINICAL HISTORY: Abdominal pain, h/o diverticular abscess. COMPARISON STUDY: CT of the abdomen and pelvis October 09, 2022. 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 There is oral co ntrast within the colon from recent CT. There is mild gaseous distention of small and large bowel. Th ere is gas within the rectum. This is similar to prior CT. There is no evidence for a bowel obstructi on. Sensitivity for detection of free air is diminished on this exam but there is no definite evidenc e for free air. IMPRESSION: 1. No evidence for a bowel obstruction. 2. No change in mild distention of small and large bowel since prior CT. This may reflect a mild ileu s. ACT 112: Negative or not required by law. Electronically signed by: Norris Blackburn M.D. 10/12/2022 12:27 PM
--- NOTE | 2022-10-12 13:10 | Hospitalist Progress Note ---
Date of Service October 12, 2022 Assessment & Plan (1) Bacteremia: (2) Fever: (3) Bilateral lower leg cellulitis: (4) Anemia: (5) Chronic pain syndrome: (6) Edenilson-Danlos syndrome: (7) Paroxysmal SVT (supraventricular tachycardia): (8) Gastroparesis: (9) Hypothyroidism: Plan CT A/P 11/09/22 1. Acute sigmoid diverticulitis with 5.5 cm abscess/contained perforation within the sigmoid mesocolon. 2. Trace pleural effusions with trace pelvic ascites and anasarca. 3. Cholecystectomy with intrahepatic and extrahepatic biliary ductal dilation redemonstrated. Correlation with serum bilirubin recommended. 4. Additional findings as above. Acute sigmoid diverticulitis with perforation with contained abscess Bacteroides bacteremia -Blood cultures 10/03 and 10/05 with Bacteroides fragilis, bacteremia cleared. Repeat blood culture negative. - CT abdomen pelvis with with acute sigmoid diverticulitis with contained abscess. Patient is hemodynamically and clinically stable -Seen by surgery and IR-abscess not amenable to drainage and recommended medical management. Per surgery, given extensive surgical history, and surgical intervention either now or in the future surgery should be performed by colorectal surgeon at tertiary center. - Continue zosyn and follow-up with CT to ensure resolution - Will discuss with ID for final antibiotic recommendation-message sent to ID. Anemia-hemoglobin stable at baseline, more than 9, status post iron transfusion at [place] recently Chronic leg edema with known lymphedema -Better. On p.o. Lasix Chronic pain syndrome -continue outpatient medication. 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 will continue to hold coumadin for now. No strong indication identified per chart review. CODE: Full code Dispo: Pending medical stability Admission and Anticipated Discharge Date Admission Date: October 05, 2022 Subjective Patient seen and examined at bedside. Tolerating diet. No nausea or vomiting. Having small bowel movements. Still with some abdominal soreness. No fever or chills. Review of Systems Review of Systems: All systems reviewed & are unremarkable except as noted in Subjective Physical Exam Physical Exam: General: Lying comfortably in bed, not in distress, on room air HEENT: EOMI, JORDAN, MMM Chest: Clear breath sounds bilaterally, no wheezes or crackles CVS: Regular rate and rhythm, normal heart sounds, no murmur Abdomen: Soft, mild lower abdominal tenderness not distended, normal bowel sounds Neuro: Awake, alert, oriented, conversing well, non focal Extremities: No cyanosis, clubbing or edema Results & Data Results & Data Vital Signs (Past 12 Hours) Vital Signs Temp Pulse Pulse Resp BP BP Pulse Ox 10/12/22 12:13 36.4 C L 56 L 16 96/61 L 97 10/12/22 08:15 36.7 C 64 16 95/59 L 94 10/12/22 07:15 58 L 10/12/22 03:08 36.5 C 65 110/70 96 O2 Del Method 10/12/22 12:13 Room Air 10/12/22 08:15 Room Air 10/12/22 07:15 10/12/22 03:08 Room Air Laboratory Results Short CBC 10/12/22 Range/Units 10:51 WBC 6.88 (4.8-10.8) K/ul Hgb 9.1 L (12.0-16.0) g/dl Hct 29.3 L (37.0-47.0) % Plt Count 335 (130-400) K/uL BMP 10/11/22 10/12/22 07:35 10:51 Sodium 137 137 Potassium 3.4 L 3.4 L Chloride 102 102 Carbon Dioxide 30 30 BUN 12 10 Creatinine 0.75 0.66 Glucose 111 H 109 H Calcium 8.6 8.6 Cardiac Enzymes 10/11/22 10/11/22 Range/Units 07:35 17:32 Total Creatine Kinase 15 L Cancelled (26-192) U/L Liver Function 10/12/22 Range/Units 10:51 Total Bilirubin 0.3 (0.2-1.0) mg/dl AST 17 (13-39) U/L ALT 3 L (7-52) U/L Alkaline Phosphatase 133 H (34-104) U/L Albumin 2.9 L (3.4-5.0) gm/dl Medications Administered Current Inpatient Medications Atorvastatin Calcium (Atorvastatin 20 Mg Tab) 20 mg PO QAM [facility] Stop: 11/05/22 08:59 Last Admin: 10/12/22 08:47 Dose: 20 mg Buprenorphine HCl (Buprenorphine 15 Mcg/Patch Tdsy) 15 mcg TD Th@0900 [facility] Stop: 11/10/22 08:59 Last Admin: 10/11/22 11:06 Dose: 15 mcg Carbidopa/Levodopa (Carbidopa/Levodopa 25/100mg Tab) 1 tab PO TID@0800,1200,2000 [facility] Stop: 11/04/22 19:59 Last Admin: 10/12/22 11:57 Dose: 1 tab Enoxaparin Sodium (Enoxaparin Inj 40 Mg/0.4 Ml Syr) 40 mg SQ QAM [facility] Stop: 11/10/22 08:59 Last Admin: 10/12/22 08:50 Dose: 40 mg Fluticasone Propionate (Fluticasone Propionate Na Spr 16 Gm Btl) 2 sprays NA DAILY [facility] Stop: 11/05/22 08:59 Last Admin: 10/12/22 08:48 Dose: 2 sprays Fluticasone/Vilanterol (Fluticasone/Vilanterol 100/25mcg 14 Puffs/Inhaler) 1 puffs INH QAM [facility] Stop: 11/05/22 08:59 Last Admin: 10/12/22 08:50 Dose: 1 puffs Furosemide (Furosemide 40 Mg Tab) 40 mg PO QAM [facility] Stop: 11/06/22 08:59 Last Admin: 10/12/22 08:46 Dose: 40 mg Hydroxyzine HCl (Hydroxyzine Hcl 25 Mg Tab) 25 mg PO Q6 PRN PRN Reason: ANXIETY/ITCHING Stop: 11/04/22 16:54 Last Admin: 10/12/22 03:15 Dose: 25 mg Piperacillin Sod/Tazobactam (Sod 3.375 gm/ Dextrose) 115 mls @ 28.75 mls/hr IV Q8H [facility]; Protocol Stop: 10/22/22 15:59 Last Admin: 10/12/22 08:54 Dose: 28.8 mls/hr Dextrose/Sodium Chloride (D5w And 1/2nss) 1,000 mls @ 100 mls/hr IV .Q10H [facility] Stop: 11/09/22 04:14 Last Admin: 10/12/22 04:53 Dose: 125 mls/hr Levothyroxine Sodium ([facility]othy[facility]ine Sodium 50 Mcg Tablet) [facility]: 11/05/22 06:29 Last Admin: 10/12/22 04:53 Dose: 50 mcg Metoprolol Tartrate (Metoprolol Tartrate 25 Mg Tab) 12.5 mg PO DAILY [facility] Stop: 11/05/22 08:59 Last Admin: 10/12/22 08:46 Dose: 12.5 mg Mirtazapine (Mirtazapine Tab 15 Mg Tab) 15 mg PO [facility] Stop: 11/04/22 20:59 Last Admin: 10/11/22 20:32 Dose: 15 mg Miscellaneous (Check Buprenorphine Patch) 1 each N/A QS [facility] Stop: 11/07/22 15:59 Last Admin: 10/12/22 08:48 Dose: 1 each Miscellaneous (Remove & Waste Butrans Patch 1 Ea Ea) 1 each N/A Th@0859 [facility] Stop: 11/10/22 08:58 Last Admin: 10/11/22 08:50 Dose: 1 each Montelukast Sodium (Montelukast Sodium 10 Mg Tablet) 10 mg PO [facility] Stop: 11/04/22 20:59 Last Admin: 10/11/22 20:32 Dose: 10 mg Multivitamins/Minerals (Cerovite Adv Formula Tab) 1 tab PO DAILY [facility] Stop: 11/05/22 08:59 Last Admin: 10/12/22 08:46 Dose: 1 tab Ondansetron HCl (Ondansetron Inj 2 Mg/Ml 2 Ml Vial) 4 mg IV Q4H PRN PRN Reason: Nausea And Vomiting Stop: 11/04/22 16:54 Last Admin: 10/12/22 09:54 Dose: 4 mg Oxycodone/Acetaminophen (Oxycodone/Acetaminophen 5mg/325mg Tab) 1 tab PO Q8H PRN PRN Reason: Pain (Scale Score 4-10) Stop: 10/19/22 16:54 Last Admin: 10/12/22 04:42 Dose: 1 tab Pantoprazole Sodium (Pantoprazole 40 Mg Tab) 40 mg PO DAILY [facility] Stop: 11/05/22 08:59 Last Admin: 10/12/22 08:47 Dose: 40 mg Polyethylene Glycol (Polyethylene (Miralax) 17 Gm Pack) 17 gm PO DAILY PRN PRN Reason: Constipation Stop: 11/06/22 20:18 Last Admin: 10/07/22 20:26 Dose: 17 gm Potassium Chloride (Potassium Chloride Pwd 20 Meq Pack) 40 meq PO QAM [facility] Stop: 11/05/22 08:59 Last Admin: 10/11/22 20:31 Dose: 40 meq Potassium Chloride (Potassium Chloride Pwd 20 Meq Pack) 20 meq PO PM [facility] Stop: 11/04/22 20:59 Last Admin: 10/11/22 20:33 Dose: 20 meq Ropinirole HCl (Ropinirole Hcl 2 Mg Tablet) 2 mg PO DAILY@1999 [facility] Stop: 11/04/22 19:59 Last Admin: 10/11/22 20:33 Dose: 2 mg Ropinirole HCl (Ropinirole Hcl 1 Mg Tablet) 1 mg PO 0500,1100,1700 [facility] Stop: 11/11/22 05:29 Last Admin: 10/12/22 11:57 Dose: 1 mg Saccharomyces Boulardii (Saccharomyces Boulardii 250 Mg Cap) 250 mg PO BID [facility] Stop: 11/04/22 20:59 Last Admin: 10/12/22 08:45 Dose: 250 mg Thiamine HCl (Thiamine Hcl 100 Mg Tab) 100 mg PO BID [facility] Stop: 11/04/22 20:59 Last Admin: 10/12/22 08:47 Dose: 100 mg (2) Fever Fever type: unspecified Qualified Code(s): R50.9 - Fever, unspecified
[2022-10-12] MEDS: rOPINIRole HCL 2 MG TABLET PO SCH (19:51)
[2022-10-12] MEDS: MONTELUKAST SODIUM 10 MG TABLET PO SCH (21:44)
[2022-10-12] MEDS: MIRTAZAPINE TAB 15 MG TAB PO SCH (21:44)
[2022-10-12] MEDS: POTASSIUM CHLORIDE PWD 20 MEQ PACK PO SCH (21:44)
[2022-10-13] MEDS: rOPINIRole HCL 1 MG TABLET PO SCH ×2 (04:11→20:05)
[2022-10-13] MEDS: D5W AND 1/2NSS 1,000 ML IV SCH ×2 (06:11→16:00)
[2022-10-13] MEDS: LEVOTHYROXINE SODIUM 50 MCG TABLET PO SCH (06:12)
[2022-10-13] MEDS: PIPERACILLIN/TAZOBACTAM 3.375 GM in DEXTROSE 5% 100 ML IV SCH ×2 (08:30→16:00)
[2022-10-13] MEDS ORDERED: rOPINIRole HCL 1 MG TABLET PO STA (09:29)
[2022-10-13] MEDS: FUROSEMIDE 40 MG TAB PO SCH (10:08)
[2022-10-13] MEDS: THIAMINE HCL 100 MG TAB PO SCH ×2 (10:08→20:04)
[2022-10-13] MEDS: CARBIDOPA/LEVODOPA 25/100MG TAB PO SCH ×3 (10:08→20:04)
[2022-10-13] MEDS: PANTOprazole 40 MG TAB PO SCH (10:08)
[2022-10-13] MEDS: SACCHAROMYCES BOULARDII 250 MG CAP PO SCH ×2 (10:08→20:07)
[2022-10-13] MEDS: METOPROLOL TARTRATE 25 MG TAB PO SCH (10:09)
[2022-10-13] MEDS: POTASSIUM CHLORIDE PWD 20 MEQ PACK PO SCH ×3 (10:09→20:04)
[2022-10-13] MEDS: ATORVASTATIN 20 MG TAB PO SCH (10:09)
[2022-10-13] MEDS: CEROVITE ADV FORMULA TAB PO SCH (10:10)
[2022-10-13] MEDS: ENOXAPARIN INJ 40 MG/0.4 ML SYR SQ SCH (10:11)
[2022-10-13] MEDS: FLUTICASONE PROPIONATE NA SPR 16 GM BTL SCH (10:13)
[2022-10-13] MEDS: CHECK BUPRENORPHINE PATCH SCH ×2 (10:13→16:50)
[2022-10-13] MEDS: FLUTICASONE/VILANTEROL 100/25MCG 14 PUFFS/INHALER INH SCH (10:13)
[2022-10-13] MEDS: oxyCODONE/ACETAMINOPHEN 5mg/325mg TAB PO PRN ×2 (10:22→20:05)
--- NOTE | 2022-10-13 12:27 | Hospitalist Progress Note ---
Date of Service October 13, 2022 Assessment & Plan (1) Bacteremia: (2) Fever: (3) Bilateral lower leg cellulitis: (4) Anemia: (5) Chronic pain syndrome: (6) Edenilson-Danlos syndrome: (7) Paroxysmal SVT (supraventricular tachycardia): (8) Gastroparesis: (9) Hypothyroidism: Plan CT A/P 11/09/22 1. Acute sigmoid diverticulitis with 5.5 cm abscess/contained perforation within the sigmoid mesocolon. 2. Trace pleural effusions with trace pelvic ascites and anasarca. 3. Cholecystectomy with intrahepatic and extrahepatic biliary ductal dilation redemonstrated. Correlation with serum bilirubin recommended. 4. Additional findings as above. Acute sigmoid diverticulitis with perforation with contained abscess Bacteroides bacteremia -Blood cultures 10/03 and 10/05 with Bacteroides fragilis, bacteremia cleared. Repeat blood culture negative. - CT abdomen pelvis with with acute sigmoid diverticulitis with contained abscess. Patient is hemodynamically and clinically stable -Seen by surgery and IR-abscess not amenable to drainage and recommended medical management. Per surgery, given extensive surgical history, and surgical intervention either now or in the future surgery should be performed by colorectal surgeon at tertiary center. - Continue zosyn and follow-up with CT to ensure resolution -Discussed with ID Dr Kerns- continue zosyn- if clinically improving, discharge on ertapenem 1g daily for [address] A/P in 4 weeks with ID follow up; if does not improve transfer to tertiary center for surgical management. Hypotension- asymptomatic. Will hold lasix. lopressor with hold parameters. will start on low dose midodrine with hold parameters. On ivf. Doesn't seem to be in septic shock clinically. Anemia-hemoglobin stable at baseline, more than 9, status post iron transfusion at [place] recently Chronic leg edema with known lymphedema -Better. On p.o. Lasix- will hold for now given low BP and npo status. Chronic pain syndrome -continue outpatient medication. 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 will continue to hold coumadin for now. No strong indication identified per chart review. CODE: Full code Dispo: Pending medical stability Admission and Anticipated Discharge Date Admission Date: October 05, 2022 Subjective Patient was seen and examined at bedside. Her biggest concern is her restless leg syndrome and she is very uncomfortable with it. She states that she takes Requip 2 Mg 4 times daily and 3 Mg at bedtime at home. Here she is getting half of that and it does not seem to be helping her much. Her abdominal pain is better, only tender when palpated at that spot. No nausea or vomiting. No fever or chills. States she is stiff from lying on bed all day. Physical Exam Physical Exam: General: Lying comfortably in bed, not in distress, on room air HEENT: EOMI, JORDAN, MMM Chest: Clear breath sounds bilaterally, no wheezes or crackles CVS: Regular rate and rhythm, normal heart sounds, no murmur Abdomen: Soft, mild LLQ tenderness not distended, normal bowel sounds Neuro: Awake, alert, oriented, conversing well, non focal Extremities: No cyanosis, clubbing or edema Results & Data Results & Data Vital Signs (Past 12 Hours) Vital Signs Temp Pulse Pulse Resp BP Pulse Ox O2 Del Method 10/13/22 12:09 36.6 C 55 L 16 81/51 L 94 Room Air 10/13/22 07:18 36.6 C 60 16 104/72 98 Room Air 10/13/22 07:17 54 L 10/13/22 02:35 36.3 C L 56 L 16 100/67 95 Room Air Medications Administered Current Inpatient Medications Atorvastatin Calcium (Atorvastatin 20 Mg Tab) 20 mg PO QAM [facility] Stop: 11/05/22 08:59 Last Admin: 10/13/22 10:09 Dose: 20 mg Buprenorphine HCl (Buprenorphine 15 Mcg/Patch Tdsy) 15 mcg TD Th@0900 [facility] Stop: 11/10/22 08:59 Last Admin: 10/11/22 11:06 Dose: 15 mcg Carbidopa/Levodopa (Carbidopa/Levodopa 25/100mg Tab) 1 tab PO TID@0800,1200,2000 [facility] Stop: 11/04/22 19:59 Last Admin: 10/13/22 10:08 Dose: 1 tab Enoxaparin Sodium (Enoxaparin Inj 40 Mg/0.4 Ml Syr) 40 mg SQ QAM [facility] Stop: 11/10/22 08:59 Last Admin: 10/13/22 10:11 Dose: 40 mg Fluticasone Propionate (Fluticasone Propionate Na Spr 16 Gm Btl) 2 sprays NA DAILY [facility] Stop: 11/05/22 08:59 Last Admin: 10/13/22 10:13 Dose: 2 sprays Fluticasone/Vilanterol (Fluticasone/Vilanterol 100/25mcg 14 Puffs/Inhaler) 1 puffs INH QAM [facility] Stop: 11/05/22 08:59 Last Admin: 10/13/22 10:13 Dose: 1 puffs Furosemide (Furosemide 40 Mg Tab) 40 mg PO QAM [facility] Stop: 11/06/22 08:59 Last Admin: 10/13/22 10:08 Dose: 40 mg Hydroxyzine HCl (Hydroxyzine Hcl 25 Mg Tab) 25 mg PO Q6 PRN PRN Reason: ANXIETY/ITCHING Stop: 11/04/22 16:54 Last Admin: 10/12/22 03:15 Dose: 25 mg Piperacillin Sod/Tazobactam (Sod 3.375 gm/ Dextrose) 115 mls @ 28.75 mls/hr IV Q8H [facility]; Protocol Stop: 10/22/22 15:59 Last Admin: 10/13/22 08:30 Dose: 28.8 mls/hr Dextrose/Sodium Chloride (D5w And 1/2nss) 1,000 mls @ 100 mls/hr IV .Q10H [facility] Stop: 11/09/22 04:14 Last Admin: 10/13/22 06:11 Dose: 125 mls/hr Levothyroxine Sodium (Levothyroxine Sodium 50 Mcg Tablet) 50 mcg PO DAILYBB [facility] Stop: 11/05/22 06:29 Last Admin: 10/13/22 06:12 Dose: 50 mcg Metoprolol Tartrate (Metoprolol Tartrate 25 Mg Tab) 12.5 mg PO DAILY [facility] Stop: 11/05/22 08:59 Last Admin: 10/13/22 10:09 Dose: 12.5 mg Midodrine (Midodrine Hcl 2.5 Mg Tab) 2.5 mg PO TID@0800,1200,1700 [facility] Stop: 11/12/22 12:24 Mirtazapine (Mirtazapine Tab 15 Mg Tab) 15 mg PO HS [facility] Stop: 11/04/22 20:59 Last Admin: 10/12/22 21:44 Dose: 15 mg Miscellaneous (Check Buprenorphine Patch) 1 each N/A QS [facility] Stop: 11/07/22 15:59 Last Admin: 10/13/22 10:13 Dose: 1 each Miscellaneous (Remove & Waste Butrans Patch 1 Ea Ea) 1 each N/A Th@0859 [facility] Stop: 11/10/22 08:58 Last Admin: 10/11/22 08:50 Dose: 1 each Montelukast Sodium (Montelukast Sodium 10 Mg Tablet) 10 mg PO HS [facility] Stop: 11/04/22 20:59 Last Admin: 10/12/22 21:44 Dose: 10 mg Multivitamins/Minerals (Cerovite Adv Formula Tab) 1 tab PO DAILY [facility] Stop: 11/05/22 08:59 Last Admin: 10/13/22 10:10 Dose: 1 tab Ondansetron HCl (Ondansetron Inj 2 Mg/Ml 2 Ml Vial) 4 mg IV Q4H PRN PRN Reason: Nausea And Vomiting Stop: 11/04/22 16:54 Last Admin: 10/12/22 09:54 Dose: 4 mg Oxycodone/Acetaminophen (Oxycodone/Acetaminophen 5mg/325mg Tab) 1 tab PO Q8H PRN PRN Reason: Pain (Scale Score 4-10) Stop: 10/19/22 16:54 Last Admin: 10/13/22 10:22 Dose: 1 tab Pantoprazole Sodium (Pantoprazole 40 Mg Tab) 40 mg PO DAILY [facility] Stop: 11/05/22 08:59 Last Admin: 10/13/22 10:08 Dose: 40 mg Polyethylene Glycol (Polyethylene (Miralax) 17 Gm Pack) 17 gm PO DAILY PRN PRN Reason: Constipation Stop: 11/06/22 20:18 Last Admin: 10/07/22 20:26 Dose: 17 gm Potassium Chloride (Potassium Chloride Pwd 20 Meq Pack) 40 meq PO QAM [facility] Stop: 11/05/22 08:59 Last Admin: 10/13/22 10:09 Dose: 40 meq Potassium Chloride (Potassium Chloride Pwd 20 Meq Pack) 20 meq PO PM [facility] Stop: 11/04/22 20:59 Last Admin: 04/07/23 21:44 Dose: 20 meq Ropinirole HCl (Ropinirole Hcl 2 Mg Tablet) 2 mg PO 0500,1100,1700 [facility] Stop: 11/12/22 10:59 Ropinirole HCl (Ropinirole Hcl 1 Mg Tablet) 3 mg PO DAILY@1999 [facility] Stop: 11/12/22 19:59 Saccharomyces Boulardii (Saccharomyces Boulardii 250 Mg Cap) 250 mg PO BID [facility] Stop: 11/04/22 20:59 Last Admin: 10/13/22 10:08 Dose: 250 mg Thiamine HCl (Thiamine Hcl 100 Mg Tab) 100 mg PO BID [facility] Stop: 11/04/22 20:59 Last Admin: 10/13/22 10:08 Dose: 100 mg (2) Fever Fever type: unspecified Qualified Code(s): R50.9 - Fever, unspecified
--- NOTE | 2022-10-13 12:57 | Surgery Progress Note ---
Date of Service October 13, 2022 Assessment & Plan (1) Diverticulitis: Plan: Diverticulitis with bacteremia, pericolic abscess not amenable to IR drainage. Pain improved. Advance diet as tolerated cont abx kub labs if needs surgery would recommend tertiary center. (2) Bacteremia: Admission and Anticipated Discharge Date Admission Date: October 05, 2022 Subjective Continues to improve. Tolerating diet. Passing flatus. Physical Exam Gastrointestinal (Abdomen): Percussion/Palpation: abdomen soft; abdomen nontender, no guarding and abdomen not rigid Results & Data Vital Signs (Past 12 Hours) Vital Signs Temp Pulse Pulse Resp BP Pulse Ox O2 Del Method 10/13/22 12:09 36.6 C 55 L 16 81/51 L 94 Room Air 10/13/22 07:18 36.6 C 60 16 104/72 98 Room Air 10/13/22 07:17 54 L 10/13/22 02:35 36.3 C L 56 L 16 100/67 95 Room Air
[2022-10-13] MEDS: rOPINIRole HCL 2 MG TABLET PO SCH ×2 (14:41→16:51)
[2022-10-13] MEDS: MIDODRINE HCL 2.5 MG TAB PO SCH ×2 (14:41→16:52)
[2022-10-13] MEDS: MIRTAZAPINE TAB 15 MG TAB PO SCH (20:05)
[2022-10-13] MEDS: MONTELUKAST SODIUM 10 MG TABLET PO SCH (20:07)
[2022-10-14] MEDS: PIPERACILLIN/TAZOBACTAM 3.375 GM in DEXTROSE 5% 100 ML IV SCH ×3 (00:07→16:27)
[2022-10-14] MEDS: CHECK BUPRENORPHINE PATCH SCH ×3 (00:08→16:27)
[2022-10-14] MEDS: D5W AND 1/2NSS 1,000 ML IV SCH ×2 (00:08→12:30)
[2022-10-14] MEDS: oxyCODONE/ACETAMINOPHEN 5mg/325mg TAB PO PRN ×3 (04:12→19:45)
[2022-10-14] MEDS: LEVOTHYROXINE SODIUM 50 MCG TABLET PO SCH (04:12)
[2022-10-14] MEDS: rOPINIRole HCL 2 MG TABLET PO SCH ×3 (04:13→16:28)
[2022-10-14 07:10] LABS: Hematocrit (blood only) 30.1 % (37.0-47.0); Hemoglobin 9.2 g/dl (12.0-16.0); Mean Corpuscular Hemoglobin 26.5 pg (25.0-34.0); Mean Corpuscular Hgb Conc 30.6 g/dL (32.0-36.0); Mean Corpuscular Volume 86.7 fL (80.0-100.0); Mean Platelet Volume 9.7 fL (9.4-12.4); Platelet Count 348 K/uL (130-400); RDW Coefficient of Variation 16.6 % (11.5-14.5); Red Blood Count 3.47 M/uL (4.20-5.40); White Blood Count 6.82 K/ul (4.8-10.8)
[2022-10-14 07:26] LABS: BUN Creatinine Ratio 11.6 (10-20); C Reactive Protein 3.02 mg/dl (0-0.5); Calcium 8.8 mg/dl (8.6-10.3); Creatinine Clr Calc Pharmacy 62.1 ml/min; Est GFR (African American) 100.8 ml/min; Potassium 3.6 mmol/L (3.5-5.1)
[2022-10-14] MEDS: SACCHAROMYCES BOULARDII 250 MG CAP PO SCH ×2 (07:40→19:44)
[2022-10-14] MEDS: CARBIDOPA/LEVODOPA 25/100MG TAB PO SCH ×3 (07:41→19:45)
[2022-10-14] MEDS: THIAMINE HCL 100 MG TAB PO SCH ×2 (07:41→19:44)
[2022-10-14] MEDS: MIDODRINE HCL 2.5 MG TAB PO SCH ×3 (07:42→16:28)
[2022-10-14] MEDS: CEROVITE ADV FORMULA TAB PO SCH (07:42)
[2022-10-14] MEDS: PANTOprazole 40 MG TAB PO SCH (07:44)
[2022-10-14] MEDS: ENOXAPARIN INJ 40 MG/0.4 ML SYR SQ SCH (07:44)
[2022-10-14] MEDS: ATORVASTATIN 20 MG TAB PO SCH (07:44)
[2022-10-14] MEDS: METOPROLOL TARTRATE 25 MG TAB PO SCH (07:45)
[2022-10-14] MEDS: FLUTICASONE PROPIONATE NA SPR 16 GM BTL SCH (07:46)
[2022-10-14] MEDS: FLUTICASONE/VILANTEROL 100/25MCG 14 PUFFS/INHALER INH SCH (07:46)
--- NOTE | 2022-10-14 11:04 | Surgery Progress Note ---
Date of Service October 14, 2022 Assessment & Plan (1) Diverticulitis: Plan: Diverticulitis with bacteremia, pericolic abscess not amenable to IR drainage. Pain improved. Advance diet to regular cont abx labs if needs surgery would recommend tertiary center. (2) Bacteremia: Admission and Anticipated Discharge Date Admission Date: October 05, 2022 Subjective Continues to improve. Tolerating diet. Passing flatus. Physical Exam Gastrointestinal (Abdomen): Percussion/Palpation: abdomen soft; abdomen nontender, no guarding and abdomen not rigid Results & Data Vital Signs (Past 12 Hours) Vital Signs Temp Pulse Pulse Resp BP BP Pulse Ox 10/14/22 08:05 36.7 C 57 L 16 92/58 L 97 10/14/22 07:17 57 L 10/14/22 06:50 10/14/22 03:32 36.6 C 53 L 16 102/69 96 10/13/22 23:59 53 L O2 Del Method 10/14/22 08:05 Room Air 10/14/22 07:17 10/14/22 06:50 Room Air 10/14/22 03:32 Room Air 10/13/22 23:59
--- NOTE | 2022-10-14 12:04 | Hospitalist Progress Note ---
Date of Service October 14, 2022 Assessment & Plan (1) Diverticular disease of intestine with perforation and abscess: (2) Bacteremia: (3) Hypotension: (4) Anemia: (5) Edenilson-Danlos syndrome: (6) Paroxysmal SVT (supraventricular tachycardia): (7) Hypothyroidism: Plan CT A/P 11/09/22 1. Acute sigmoid diverticulitis with 5.5 cm abscess/contained perforation within the sigmoid mesocolon. 2. Trace pleural effusions with trace pelvic ascites and anasarca. 3. Cholecystectomy with intrahepatic and extrahepatic biliary ductal dilation redemonstrated. Correlation with serum bilirubin recommended. 4. Additional findings as above. Acute sigmoid diverticulitis with perforation with contained abscess Bacteroides bacteremia -Blood cultures 10/03 and 10/05 with Bacteroides fragilis, bacteremia cleared. Repeat blood culture negative. - CT abdomen pelvis with with acute sigmoid diverticulitis with contained abscess. Patient is hemodynamically and clinically stable -Seen by surgery and IR-abscess not amenable to drainage and recommended medical management. Per surgery, given extensive surgical history, and surgical intervention either now or in the future surgery should be performed by colorectal surgeon at tertiary center. - Continue zosyn and follow-up with CT to ensure resolution -Discussed with ID Dr Kerns- continue zosyn- if clinically improving, discharge on ertapenem 1g daily for [address] A/P in 4 weeks with ID follow up; if does not improve transfer to tertiary center for surgical management. -Improving clinically, surgery following, advancing diet Hypotension-improved after midodrine. asymptomatic. holding lasix. lopressor with hold parameters. Anemia-hemoglobin stable at baseline, more than 9, status post iron transfusion at [facility] recently Chronic leg edema with known lymphedema -Better. On p.o. Lasix- will hold for now given low BP. Chronic pain syndrome -continue outpatient medication. 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 will continue to hold coumadin for now. No strong indication identified per chart review. CODE: Full code Dispo: Pending medical stability Admission and Anticipated Discharge Date Admission Date: October 05, 2022 Subjective Patient was seen and examined at bedside. States she has not had any restless leg syndrome over the past 24 hours after increasing the dose of Requip at home dose. Abdominal tenderness is improved. Tolerating diet without issues. No nausea or vomiting. No Fever or chills. States she had multiple watery bowel movements but C. difficile was negative. Review of Systems Review of Systems: All systems reviewed & are unremarkable except as noted in Subjective Physical Exam Physical Exam: General: Lying comfortably in bed, not in distress, on room air HEENT: EOMI, JORDAN, MMM Chest: Clear breath sounds bilaterally, no wheezes or crackles CVS: Regular rate and rhythm, normal heart sounds, no murmur Abdomen: Soft, mild LLQ tenderness improved, not distended, normal bowel sounds Neuro: Awake, alert, oriented, conversing well, non focal Extremities: No cyanosis, clubbing or edema Results & Data Results & Data Vital Signs (Past 12 Hours) Vital Signs Temp Pulse Pulse Resp BP BP Pulse Ox 10/14/22 11:52 36.6 C 63 16 109/70 98 10/14/22 08:05 36.7 C 57 L 16 92/58 L 97 10/14/22 07:17 57 L 10/14/22 06:50 10/14/22 03:32 36.6 C 53 L 16 102/69 96 10/13/22 23:59 53 L O2 Del Method 10/14/22 11:52 Room Air 10/14/22 08:05 Room Air 10/14/22 07:17 10/14/22 06:50 Room Air 10/14/22 03:32 Room Air 10/13/22 23:59 Laboratory Results Short CBC 10/14/22 Range/Units 06:50 WBC 6.82 (4.8-10.8) K/ul Hgb 9.2 L (12.0-16.0) g/dl Hct 30.1 L (37.0-47.0) % Plt Count 348 (130-400) K/uL BMP 10/14/22 06:50 Sodium 139 Potassium 3.6 Chloride 104 Carbon Dioxide 28 BUN 8 Creatinine 0.69 Glucose 118 H Calcium 8.8 Medications Administered Current Inpatient Medications Atorvastatin Calcium (Atorvastatin 20 Mg Tab) 20 mg PO QAM ASHUTOSH Stop: 11/05/22 08:59 Last Admin: 10/14/22 07:44 Dose: 20 mg Buprenorphine HCl (Buprenorphine 15 Mcg/Patch Tdsy) 15 mcg TD Th@0900 [facility] Stop: 11/10/22 08:59 Last Admin: 10/11/22 11:06 Dose: 15 mcg Carbidopa/Levodopa (Carbidopa/Levodopa 25/100mg Tab) 1 tab PO TID@0800,1200,2 000 [facility] Stop: 11/04/22 19:59 Last Admin: 10/14/22 10:42 Dose: 1 tab Enoxaparin Sodium (Enoxaparin Inj 40 Mg/0.4 Ml Syr) 40 mg SQ QAM [facility] Stop: 11/10/22 08:59 Last Admin: 10/14/22 07:44 Dose: 40 mg Fluticasone Propionate (Fluticasone Propionate Na Spr 16 Gm Btl) 2 sprays NA DAILY [facility] Stop: 11/05/22 08:59 Last Admin: 10/14/22 07:46 Dose: 2 sprays Fluticasone/Vilanterol (Fluticasone/Vilanterol 100/25mcg 14 Puffs/Inhaler) 1 puffs INH QAM [facility] Stop: 11/05/22 08:59 Last Admin: 10/14/22 07:46 Dose: 1 puffs Furosemide (Furosemide 40 Mg Tab) 40 mg PO QAM [facility] Stop: 11/06/22 08:59 Last Admin: 10/13/22 10:08 Dose: 40 mg Hydroxyzine HCl (Hydroxyzine Hcl 25 Mg Tab) 25 mg PO Q6 PRN PRN Reason: ANXIETY/ITCHING Stop: 11/04/22 16:54 Last Admin: 10/12/22 03:15 Dose: 25 mg Piperacillin Sod/Tazobactam (Sod 3.375 gm/ Dextrose) 115 mls @ 28.75 mls/hr IV Q8H [facility]; Protocol Stop: 10/22/22 15:59 Last Infusion: 10/14/22 11:43 Dose: Infused Dextrose/Sodium Chloride (D5w And 1/2nss) 1,000 mls @ 100 mls/hr IV .Q10H [facility] Stop: 11/12/22 15:59 Last Admin: 10/14/22 00:08 Dose: 100 mls/hr Levothyroxine Sodium (Levothyroxine Sodium 50 Mcg Tablet) 50 mcg PO DAILYBB [facility] Stop: 11/05/22 06:29 Last Admin: 10/14/22 04:12 Dose: 50 mcg Metoprolol Tartrate (Metoprolol Tartrate 25 Mg Tab) 12.5 mg PO DAILY [facility] Stop: 11/05/22 08:59 Last Admin: 10/14/22 07:45 Dose: Not Given Midodrine (Midodrine Hcl 2.5 Mg Tab) 2.5 mg PO TID@0800,1200,1700 [facility] Stop: 11/12/22 12:24 Last Admin: 10/14/22 11:47 Dose: 2.5 mg Mirtazapine (Mirtazapine Tab 15 Mg Tab) 15 mg PO [facility] Stop: 11/04/22 20:59 Last Admin: 10/13/22 20:05 Dose: 15 mg Miscellaneous (Check Buprenorphine Patch) 1 each N/A QS [facility] Stop: 11/07/22 15:59 Last Admin: 10/14/22 07:42 Dose: 1 each Miscellaneous (Remove & Waste Butrans Patch 1 Ea Ea) 1 each N/A Th@0859 [facility] Stop: 11/10/22 08:58 Last Admin: 10/11/22 08:50 Dose: 1 each Montelukast Sodium (Montelukast Sodium 10 Mg Tablet) 10 mg PO [facility] Stop: 11/04/22 20:59 Last Admin: 10/13/22 20:07 Dose: 10 mg Multivitamins/Minerals (Cerovite Adv Formula Tab) 1 tab PO DAILY [facility] Stop: 11/05/22 08:59 Last Admin: 10/14/22 07:42 Dose: 1 tab Ondansetron HCl (Ondansetron Inj 2 Mg/Ml 2 Ml Vial) 4 mg IV Q4H PRN PRN Reason: Nausea And Vomiting Stop: 11/04/22 16:54 Last Admin: 10/12/22 09:54 Dose: 4 mg Oxycodone/Acetaminophen (Oxycodone/Acetaminophen 5mg/325mg Tab) 1 tab PO Q8H PRN PRN Reason: Pain (Scale Score 4-10) Stop: 10/19/22 16:54 Last Admin: 10/14/22 04:12 Dose: 1 tab Pantoprazole Sodium (Pantoprazole 40 Mg Tab) 40 mg PO DAILY [facility] Stop: 11/05/22 08:59 Last Admin: 10/14/22 07:44 Dose: 40 mg Polyethylene Glycol (Polyethylene (Miralax) 17 Gm Pack) 17 gm PO DAILY PRN PRN Reason: Constipation Stop: 11/06/22 20:18 Last Admin: 10/07/22 20:26 Dose: 17 gm Potassium Chloride (Potassium Chloride Pwd 20 Meq Pack) 40 meq PO QAM [facility] Stop: 11/05/22 08:59 Last Admin: 10/13/22 20:03 Dose: 40 meq Potassium Chloride (Potassium Chloride Pwd 20 Meq Pack) 20 meq PO PM ASHUTOSH Stop: 11/04/22 20:59 Last Admin: 10/13/22 20:04 Dose: 20 meq Ropinirole HCl (Ropinirole Hcl 2 Mg Tablet) 2 mg PO 0500,1100,1700 [facility] Stop: 11/12/22 10:59 Last Admin: 10/14/22 10:42 Dose: 2 mg Ropinirole HCl (Ropinirole Hcl 1 Mg Tablet) 3 mg PO DAILY@2000 [facility] Stop: 11/12/22 19:59 Last Admin: 10/13/22 20:05 Dose: 3 mg Saccharomyces Boulardii (Saccharomyces Boulardii 250 Mg Cap) 250 mg PO BID [facility] Stop: 11/04/22 20:59 Last Admin: 10/14/22 07:40 Dose: 250 mg Thiamine HCl (Thiamine Hcl 100 Mg Tab) 100 mg PO BID [facility] Stop: 11/04/22 20:59 Last Admin: 10/14/22 07:41 Dose: 100 mg
[2022-10-14] MEDS: rOPINIRole HCL 1 MG TABLET PO SCH (19:44)
[2022-10-14] MEDS: POTASSIUM CHLORIDE PWD 20 MEQ PACK PO SCH (19:44)
[2022-10-14] MEDS: MONTELUKAST SODIUM 10 MG TABLET PO SCH (19:44)
[2022-10-14] MEDS: hydrOXYzine HCl 25 MG TAB PO PRN (19:46)
[2022-10-14] MEDS: MIRTAZAPINE TAB 15 MG TAB PO SCH (19:46)
[2022-10-15] MEDS: D5W AND 1/2NSS 1,000 ML IV SCH ×2 (00:05→11:10)
[2022-10-15] MEDS: PIPERACILLIN/TAZOBACTAM 3.375 GM in DEXTROSE 5% 100 ML IV SCH ×2 (00:06→07:53)
[2022-10-15] MEDS ORDERED: oxyCODONE HCL IR 5 MG TAB (IMMEDIATE RELEASE) PO STA (00:49)
[2022-10-15] MEDS: CHECK BUPRENORPHINE PATCH SCH ×2 (01:07→07:46)
[2022-10-15] MEDS: rOPINIRole HCL 2 MG TABLET PO SCH ×2 (04:22→12:34)
[2022-10-15] MEDS: oxyCODONE/ACETAMINOPHEN 5mg/325mg TAB PO PRN ×2 (04:22→12:33)
[2022-10-15] MEDS: LEVOTHYROXINE SODIUM 50 MCG TABLET PO SCH (06:38)
[2022-10-15] MEDS: CARBIDOPA/LEVODOPA 25/100MG TAB PO SCH ×2 (07:46→12:34)
[2022-10-15] MEDS: MIDODRINE HCL 2.5 MG TAB PO SCH ×2 (07:46→12:34)
[2022-10-15] MEDS: SACCHAROMYCES BOULARDII 250 MG CAP PO SCH (08:20)
[2022-10-15] MEDS: PANTOprazole 40 MG TAB PO SCH (08:20)
[2022-10-15] MEDS: ATORVASTATIN 20 MG TAB PO SCH (08:20)
[2022-10-15] MEDS: CEROVITE ADV FORMULA TAB PO SCH (08:20)
[2022-10-15] MEDS: FLUTICASONE PROPIONATE NA SPR 16 GM BTL SCH (08:23)
[2022-10-15] MEDS: FLUTICASONE/VILANTEROL 100/25MCG 14 PUFFS/INHALER INH SCH (08:23)
[2022-10-15] MEDS: ENOXAPARIN INJ 40 MG/0.4 ML SYR SQ SCH (08:26)
[2022-10-15] MEDS: POTASSIUM CHLORIDE PWD 20 MEQ PACK PO SCH (08:29)
[2022-10-15] MEDS: THIAMINE HCL 100 MG TAB PO SCH (09:30)
--- NOTE | 2022-10-15 09:46 | Surgery Progress Note ---
Date of Service October 15, 2022 Assessment & Plan (1) Diverticular disease of intestine with perforation and abscess: Plan: Diverticulitis with bacteremia, pericolic abscess not amenable to IR drainage WBC normal. afebrile Tolerating a diet, pain improved. + bowel function ID recommending course of abx at home with plans for outpatient CT scan for follow up Outpt colonoscopy and follow up with colorectal upon discharge We will follow peripherally but please call with any questions/concerns Admission and Anticipated Discharge Date Admission Date: October 05, 2022 Subjective Patient feeling well. Tolerating a diet she says as long as she does not overdue it. No nausea/vomiting. Pain better. + bowel function-->diarrhea. Physical Exam Physical Exam: awake/alert, no distress Gastrointestinal (Abdomen): Inspection/Auscultation: abdomen not distended Percussion/Palpation: abdomen soft; abdomen nontender Results & Data Vital Signs (Past 12 Hours) Vital Signs Temp Pulse Resp BP Pulse Ox O2 Del Method 10/15/22 07:32 36.7 C 57 L 14 92/58 L 97 Room Air 10/14/22 23:45 Room Air 10/14/22 23:59 18 10/14/22 23:45 36.5 C 64 18 97/66 L 97 Room Air PG Care Time/CCT Total # of Minutes Spent Total Time Spent with Patient: Total time spent is greater than 50% in coordination of care (as documented) at patient's floor/unit and/or counseling patient: Coding Level of Care Code 06990 SUB INP/OBS CARE 08/01MIN Diagnoses Diverticular disease of intestine with perforation and abscess K57.80
--- NOTE | 2022-10-15 11:42 | Discharge Summary ---
Date of Service October 15, 2022 Admission HPI Per Admitting Provider This is a 72-year-old female who is a resident of [facility], who has a history of thoracic aneurysm, HTN, CHF, paroxysmal SVT, HLD, Erler Danlos syndrome, DM type II, history of gastric bypass and malabsorption issues, gastroparesis, Anemia, Parkinson's disease, restless leg syndrome, BRANDIE on CPAP, asthma, secondary hyperparathyroidism, who presents to the ER due to positive blood culture on serology for Bacteroides fragilis resulting on 10/04/2022. Physician at [facility] was made aware and recommended that she return to the ER for IV antibiotic therapy. She was seen here at [facility] where she underwent an iron infusion on 10/03 and afterwards developed a fever of 101.3 at home. She received a visit from [facility] [place] nurse yesterday in follow-up, where it was noted that she had increased edema with lymphedema, 3+ pitting was noted on exam, and she weighed 160.2 pounds at that time. There was concern that the medial RLE was red and hot to touch although the patient denied pain at that point. She has been taking alternating lasix 40 amd 60 mg per day to help with reducing the amount of fluid in her legs with chronic lymphedema. Pt reports that she does walk with a rollator. Pt reports chronic pain and uses buprenorphine 15 mcg patch daily along with oxycodone/APAP 5/325 every 8 hours. She thinks that her legs are more painful today. She also complains of pains in her hips, her shoulders bilaterally and her arms. She denies any recent falls or trauma to any of these areas. She is very anxious, reporting that she had received relief with taking an Ativan in the ER earlier. She is asking for something additional for pain. Patient denies any acute changes in her breathing or chest pain. She denies any lightheadedness or dizziness. Patient denies any documented/known fevers since the one the other day, but reports that she is very cold and is currently under a electric blanket brought from [facility]. Patient notes that she had slight diarrhea today, baseline takes stool softener and a probiotic. She denies any other acute illness like symptoms. Admission Exam Per Admitting Provider General: awake, alert, + covered in multiple blankets, blanket over her head as she reports she is very cold, + very anxious, + tearful at times Head: Normocephalic, atraumatic ENT: PERRL, EOMI, no pharyngeal exudate, mucous membranes moist Chest: Clear to auscultation, on room air, no adventitious breath sounds Cardiac: Regular rate and rhythm, + CELINA grade 3/6, no JVD, normal peripheral pulses, good capillary refill Back: buprenorphine patch on right upper shoulder Abdominal: NABS x 4 quadrants, soft, nondistended, nontender to palpation, no rebound or guarding Extremities:Lymphedema bilateral lower extremities, + bright red erythema, 3+ pitting, entire leg tender to light palpation bilaterally Psych: Anxious and tearful throughout exam Neuro: AAO x 3, strength intact bilaterally and rated 4/5, no motor deficits, speech is clear, no peripheral sensory deficits Principal Diagnosis Acute sigmoid diverticulitis with perforation/abscess, bacteroides bacteremia, restless leg syndrome Discharge Exam General: Lying comfortably in bed, not in distress, on room air HEENT: EOMI, JORDAN, MMM Chest: Clear breath sounds bilaterally, no wheezes or crackles CVS: Regular rate and rhythm, normal heart sounds, no murmur Abdomen: Soft, minimal LLQ tenderness, not distended, normal bowel sounds Neuro: Awake, alert, oriented, conversing well, non focal Extremities: No clubbing, cyanosis, trace edema Discharge Data Allergies Allergy/AdvReac Type Severity Reaction Status Date / Time ammonia Allergy Severe FACE, Verified 10/03/22 22:04 LIPS, TONGUE EDEMA buspirone Allergy Severe NEURO Verified 10/03/22 22:04 COMPLICATIONS duloxetine Allergy Intermediate RASH Verified 10/03/22 22:04 ITCHING lisinopril Allergy Intermediate cough Verified 10/03/22 22:04 adhesive Allergy Mild skin tears Verified 10/03/22 22:04 NSAIDS (Non-Steroidal Allergy Unknown not Verified 10/03/22 22:04 Anti-Inflamma supposed to use-S/P GASTRIC BYPASS vancomycin Allergy Unknown ON WYNMARION Verified 10/03/22 22:04 MED LIST venlafaxine Allergy Unknown AFFECTS Verified 10/03/22 22:04 LEGS diphenhydramine AdvReac Intermediate RESTLESS Verified 10/03/22 22:04 LEGS gabapentin AdvReac Intermediate MUSCLE Verified 10/03/22 22:04 STIFFNESS Consultations 10/08/22 10:13 Consult Infectious Diseases Routine 10/10/22 03:31 Consult General Surgery Routine Ordered Studies 10/09/22 14:09 CT Abd and Pelvis [CT abd pelvis oral and IV con] Urgent 10/10/22 11:30 CT limited or localized study Routine Laboratory Results WBC 6.82 K/ul (4.8-10.8) 10/14/22 06:50 RBC 3.47 M/uL (4.20-5.40) L 10/14/22 06:50 Hgb 9.2 g/dl (12.0-16.0) L 10/14/22 06:50 Hct 30.1 % (37.0-47.0) L 10/14/22 06:50 MCV 86.7 fL (80.0-100.0) 10/14/22 06:50 MCH 26.5 pg (25.0-34.0) 10/14/22 06:50 MCHC 30.6 g/dL (32.0-36.0) L 10/14/22 06:50 RDW Std Deviation 52.0 fL (36.4-46.3) H 10/14/22 06:50 RDW Coeff of Neftaly 16.6 % (11.5-14.5) H 10/14/22 06:50 Plt Count 348 K/uL (130-400) 10/14/22 06:50 MPV 9.7 fL (9.4-12.4) 10/14/22 06:50 Immature Gran % (Auto) 0.4 % 10/12/22 10:51 Neut % (Auto) 67.8 % 10/12/22 10:51 Lymph % (Auto) 13.7 % 10/12/22 10:51 Jennings % (Auto) 12.5 % 10/12/22 10:51 Eos % (Auto) 4.9 % 10/12/22 10:51 Baso % (Auto) 0.7 % 10/12/22 10:51 Neut # (Auto) 4.66 K/uL (1.40-6.50) 10/12/22 10:51 Lymph # (Auto) 0.94 K/uL (1.2-3.4) L 10/12/22 10:51 Jennings # (Auto) 0.86 K/uL (0.11-0.59) H 10/12/22 10:51 Eos # (Auto) 0.34 K/uL (0-0.50) 10/12/22 10:51 Baso # (Auto) 0.05 K/uL (0-0.2) 10/12/22 10:51 Immature Gran # (Auto) 0.03 K/uL (0.01-0.20) 10/12/22 10:51 PT 14.7 Seconds (9.0-12.0) H 10/10/22 05:25 INR 1.4 (0.9-1.1) H 10/10/22 05:25 Sodium 139 mmol/L (136-145) 10/14/22 06:50 Potassium 3.6 mmol/L (3.5-5.1) 10/14/22 06:50 Chloride 104 mmol/L (98-107) 10/14/22 06:50 Carbon Dioxide 28 mmol/L (21-32) 10/14/22 06:50 Anion Gap 7 (3-11) 10/14/22 06:50 BUN 8 mg/dl (6-23) 10/14/22 06:50 Creatinine 0.69 mg/dl (0.6-1.2) 10/14/22 06:50 Est Cr Clr Drug Dosing 62.1 ml/min 10/14/22 06:50 Est GFR ( Amer) 100.8 ml/min 10/14/22 06:50 Est GFR (Non-Af Amer) 87.0 ml/min 10/14/22 06:50 BUN/Creatinine Ratio 11.6 (10-20) 10/14/22 06:50 Glucose 118 mg/dl (70-99(Fasting)) H 10/14/22 06:50 Lactate 1.0 mmol/L (0.4-2.0) 10/05/22 11:46 Calcium 8.8 mg/dl (8.6-10.3) 10/14/22 06:50 Phosphorus 3.1 mg/dl (2.5-4.9) 10/11/22 07:35 Magnesium 2.0 mg/dl (1.7-2.4) 10/11/22 07:35 Total Bilirubin 0.3 mg/dl (0.2-1.0) 10/12/22 10:51 Direct Bilirubin 0.1 mg/dl (0-0.2) 10/06/22 05:45 AST 17 U/L (13-39) 10/12/22 10:51 ALT 3 U/L (7-52) L 10/12/22 10:51 Alkaline Phosphatase 133 U/L (34-104) H 10/12/22 10:51 Total Creatine Kinase Cancelled 10/11/22 17:32 Troponin I High Sens 6.6 pg/ml (0-14) 10/05/22 11:46 C-Reactive Protein 3.02 mg/dl (0-0.5) H 10/14/22 06:50 Total Protein 5.7 gm/dl (6.0-8.3) L 10/12/22 10:51 Albumin 2.9 gm/dl (3.4-5.0) L 10/12/22 10:51 Globulin 2.8 gm/dl (2.5-4.0) 10/12/22 10:51 Albumin/Globulin Ratio 1.0 (0.9-2) 10/12/22 10:51 Lipase 20 U/L (11-82) 10/05/22 11:46 Procalcitonin < 0.05 ng/ml (0-0.5) 10/05/22 11:46 Urine Color Yellow 10/05/22 13:04 Urine Appearance Clear (Clear) 10/05/22 13:04 Urine pH 5.5 (4.5-7.5) 10/05/22 13:04 Ur Specific [place] 1.010 (1.000-1.030) 10/05/22 13:04 Urine Protein Negative (Negative) 10/05/22 13:04 Urine Glucose (UA) Negative (Negative) 10/05/22 13:04 Urine Ketones Negative (Negative) 10/05/22 13:04 Urine Blood Negative (Negative) 10/05/22 13:04 Urine Nitrite Negative (Negative) 10/05/22 13:04 Urine Bilirubin Negative (Negative) 10/05/22 13:04 Urine Urobilinogen Negative (Negative) 10/05/22 13:04 Ur Leukocyte Esterase Negative (Negative) 10/05/22 13:04 Stl C. diff Tox B Gene Negative Cdiff Gene (Neg) 10/13/22 16:33 SARS-CoV-2, RNA, NAAT NEGATIVE (NEGATIVE) 10/05/22 11:30 Impressions Chest X-Ray 10/05/22 11:10 XR chest 1V portable HISTORY: Sepsis COMPARISON: Chest 10/03/2022. FINDINGS: No pneumothorax. No pleural effusions. The cardiac silhouette remains mildly enlarged. The lungs are clear. Degenerative changes again noted within the shoulders. IMPRESSION: No significant change compared to the prior study. No acute process. ACT 112: Negative or not required by law. Electronically signed by: Tavares Jaramillo M.D. 10/05/2022 11:34 AM Abdomen/Pelvis CT 10/09/22 14:[address] WITH IV AND ORAL CONTRAST CT DOSE: 633.02 mGy.cm HISTORY: Acute generalized abdominal pain r/o abscess TECHNIQUE: Multiaxial CT images of the abdomen and pelvis were performed following the IV administration of 87 cc of Optiray and oral contrast. A dose lowering technique was utilized adhering to the principles of ALARA. COMPARISON STUDY: CT left hip 07/27/2022, CT abdomen and pelvis 02/06/2022 FINDINGS: Limited exam secondary to respiratory motion artifact and upper extremity positioning. Cardiomegaly with coronary artery calcifications. Trace pericardial effusions with mild dependent bibasilar atelectasis. No pneumatosis or pneumoperitoneum. Unremarkable spleen and adrenal glands. Cholecystectomy with moderate intrahepatic and extrahepatic biliary ductal dilation redemonstrated, mildly progressed from prior. Common bile duct is dilated measuring 1.7 cm. No obstructing biliary stone or lesion. Hepatic duct measures up to 4 mm. Cystic structure of the uncinate process, 1.4 cm trace may represent a sidebranch IPMN. No hydronephrosis. Cortical scarring with areas of parenchymal thinning, spouse in the right kidney. 7 cm cyst within the inferior pole right kidney. Cisneros catheter noted within a decompressed urinary bladder. Air within the bladder lumen is noted along with ventral wall thickening and perivesicular stranding. No abdominal aortic aneurysm or lymphadenopathy identified. Postoperative changes of the stomach and small bowel. Circumferential wall thickening with hyperemia noted within the mid sigmoid colon. Colonic diverticulosis. Multiloculated peripherally enhancing fluid collection the sigmoid mesocolon, 5.5 x 3.1 x 3.1 cm. Adjacent inflammatory stranding and trace free fluid. Moderate colonic diverticulosis. The appendix is not definitively seen. Anasarca. Diastases recti with small anterior abdominal wall hernias redemonstrated. Degenerative changes of the spine, pelvis and hips. Lumbar levoscoliosis. IMPRESSION: 1. Acute sigmoid diverticulitis with 5.5 cm abscess/contained perforation within the sigmoid mesocolon. 2. Trace pleural effusions with trace pelvic ascites and anasarca. 3. Cholecystectomy with intrahepatic and extrahepatic biliary ductal dilation redemonstrated. Correlation with serum bilirubin recommended. 4. Additional findings as above. ACT 112: Negative or not required by law. The above report was generated using voice recognition software. It may contain grammatical, syntax or spelling errors. Electronically signed by: Keshawn Foster M.D. 10/09/2022 6:12 PM Limited or Localized CT 10/10/22 11:30 [address] AND PEL[address] WITHOUT CONTRAST INDICATION: Possible diverticular abscess drain placement COMPARISON: CT abdomen and pelvis 10/09/2022 Technique: Multiaxial CT images of the abdomen and pelvis were performed without contrast. The patient was placed in a right posterior oblique position on the CT exam table. FINDINGS: The multiloculated sigmoid fluid collection within the sigmoid mesocolon is again identified, however despite different patient positioning, the fluid collection is not amenable to percutaneous drainage secondary to surrounding intestinal loops and adjacent iliac vessels. This was discussed with the patient and ordering physician. Case was reviewed with the attending radiologist. IMPRESSION: Diverticular abscess as previously noted, is not amenable to percutaneous drainage due to overlying and surrounding structures as detailed above. Performed, dictated, and signed by Hernan Win PA-C; to be co-signed by Dr. Keshawn Foster. Electronically signed by: Keshawn Foster M.D. 10/10/2022 2:35 PM KUB X-Ray 10/12/22 10:36 KUB CLINICAL HISTORY: Abdominal pain, h/o diverticular abscess. COMPARISON STUDY: CT of the abdomen and pelvis October 09, 2022. 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 There is oral contrast within the colon from recent CT. There is mild gaseous distention of small and large bowel. There is gas within the rectum. This is similar to prior CT. There is no evidence for a bowel obstruction. Sensitivity for detection of free air is diminished on this exam but there is no definite evidence for free air. IMPRESSION: 1. No evidence for a bowel obstruction. 2. No change in mild distention of small and large bowel since prior CT. This may reflect a mild ileus. ACT 112: Negative or not required by law. Electronically signed by: Norris Blackburn M.D. 10/12/2022 12:27 PM Hospital Course (1) Diverticular disease of intestine with perforation and abscess: (2) Bacteremia: (3) Hypotension: (4) Anemia: (5) Edenilson-Danlos syndrome: (6) Paroxysmal SVT (supraventricular tachycardia): (7) Hypothyroidism: Plan CT A/P 11/09/22 1. Acute sigmoid diverticulitis with 5.5 cm abscess/contained perforation within the sigmoid mesocolon. 2. Trace pleural effusions with trace pelvic ascites and anasarca. 3. Cholecystectomy with intrahepatic and extrahepatic biliary ductal dilation redemonstrated. Correlation with serum bilirubin recommended. 4. Additional findings as above. Acute sigmoid diverticulitis with perforation with contained abscess Bacteroides bacteremia -Blood cultures 10/03 and 10/05 with Bacteroides fragilis, bacteremia cleared. Repeat blood culture negative. - CT abdomen pelvis with with acute sigmoid diverticulitis with contained abscess. Patient is hemodynamically and clinically stable and continues to improve -Seen by surgery and IR-abscess not amenable to drainage and recommended medical management. Per surgery, given extensive surgical history, and surgical intervention either now or in the future surgery should be performed by colorectal surgeon at tertiary center. -Discussed with ID Dr Kerns- continue zosyn- if clinically improving, discharge on ertapenem 1g daily for 6 weeks antibiotic course and repeat CT A/P in 4 weeks with ID follow up; if does not improve transfer to tertiary center for surgical management. -Patient continues to improve on Zosyn. Surgery signed off. PICC line obtained and being discharged on ertapenem as per ID recommendation. Hypotension-improved and stable with low-dose midodrine. asymptomatic. Continue to hold Lasix and Lopressor. volume status stable. 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 Continue Coumadin indefinitely. Restless leg syndrome-continue home Requip. Anemia-hemoglobin stable at baseline, more than 9, status post iron transfusion at [place] recently Chronic leg edema with known lymphedema -Better. On p.o. Lasix- will hold for now given low BP. Edenilson-Danlos syndrome - Connective tissue disorder - walks with rollator, PT/OT consults - Pt has associated chronic pain syndrome and is on buprenorphine patch changed every week, also on Percocet - PDMP reviewed Hypothyroidism - Continue levothyroxine 50 mcg daily Patient is medically stable to go to [facility]. Continue ertapenem for 5 more weeks to complete 6 antibiotic course. Follow-up with ID with repeat CT in 4 weeks. If decompensates, referral to [facility] for colorectal surgery evaluation Total Time Total Time Spent Total Time Spent (In Minutes): 50 Discharge Plan Discharge Items Patient Disposition: Transfer Inpatient Rehab Fac Reason For Visit: BACTEREMIA Discharge Diagnosis: Acute sigmoid diverticulitis with perforation/abscess, bacteroides bacteremia, restless leg syndrome Activity: Resume your previous activity Non-emergency contact: Primary Care Provider Call non-emergency contact if: you have any medication questions, your symptoms worsen and your pain is concerning for you Follow-up/Referrals: STATE TARUN BARNETT [Primary Care Provider] - Diet: Regular Addtl Attending Provider Instructions: Per infectious disease, continue ertapenem 1 g daily for [address] abdomen/pelvis in 4 weeks to ensure resolution and abscess. Follow-up with ID as outpatient (ID aware). Weekly labs while on antibiotics. Remove PICC line at the completion of IV antibiotics. If clinically worsens, she would need to go to [facility] for colorectal surgery evaluation. Hold metoprolol given low heart rate and BP. Continue midodrine, wean off as tolerated by blood pressure. Resume metoprolol and lasix if BP rebounds. 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 Pending Studies at Discharge: No Stand-Alone Forms: My [facility] Skilled Items Patient informed of condition?: Yes DNR: No Discharge Level of Care: Acute rehab Communicable Disease: No Discharge Prognosis: Stable Lines: PICC Urinary Catheter: Yes Medications and DC Order Prescriptions: New midodrine 2.5 mg Tablet 2.5 mg PO TID@0800,1200,1700 Qty: 90 0RF Continued atorvastatin 20 mg tablet 20 mg PO QAM sennosides-docusate sodium [Senna-S] 8.6-50 mg Tablet 1 tab-cap PO BID thiamine HCl (vitamin B1) 100 mg Tablet 100 mg PO BID potassium chloride [Klor-Con] 20 mEq packet See Rx Instructions .ROUTE .COMPLEX Rx Instructions: TAKES 40 meq qAM and 20qPM WHILE ON LASIX meclizine 25 mg Tablet 25 mg PO TID PRN (Reason: DIZZY) levothyroxine 50 mcg tablet 50 mcg PO DAILY montelukast 10 mg tablet 10 mg PO HS hydroxyzine HCl 25 mg Tablet 25 mg PO Q6 PRN (Reason: ANXIETY/ITCHING) ergocalciferol (vitamin D2) [Vitamin D2] 1,250 mcg (50,000 unit) Capsule 1,250 mcg PO WK Rx Instructions: WEDNESDAYS fluticasone propion-salmeterol [Advair Diskus] 100-50 mcg/dose Blister With Device 1 inh INHALATION BID albuterol sulfate 90 mcg/actuation Hfa Aerosol Inhaler 2 inh INHALATION Q6 PRN (Reason: Shortness Of Breath Or Wheezing) carbidopa-levodopa 25-100 mg Tablet 1 tab PO TID Rx Instructions: 0800, 1200 & 1999 fluticasone propionate [Flonase Allergy Relief] 50 mcg/actuation [place],Suspension 2 spray INTRANASAL DAILY biotin 1 mg Tablet 1 mg PO DAILY buprenorphine 15 mcg/hour patch weekly 1 patch topical WK Rx Instructions: THURSDAYS PreserVision AREDS-2 250-90-40-1 mg Capsule 1 tab PO DAILY omega-3 fatty acids 1,000 mg Capsule 1,000 mg PO DAILY omeprazole 40 mg capsule,delayed release(DR/EC) 40 mg PO DAILY warfarin 2 mg Tablet 2 mg PO Q OTHER DAY Rx Instructions: ALTERNATING 2 MG WITH 4 MG EVERY OTHER DAY. furosemide [Lasix] 20 mg Tablet 20 mg PO DAILY PRN (Reason: WT GAIN OF 3 LBS OR MORE) Saccharomyces boulardii [Florastor] 250 mg Capsule 250 mg PO BID warfarin 4 mg tablet 4 mg PO Q OTHER DAY Rx Instructions: ALTERNATING 4 MG WITH 2 MG EVERY OTHER DAY oxycodone-acetaminophen [Percocet] 5-325 mg tablet 1 tab PO Q8H MDD 3 GRAMS APAP/24 HOURS PRN (Reason: Pain (Scale Score 4-10)) mirtazapine 15 mg tablet 15 mg PO HS Changed ropinirole 1 mg tablet 2 mg PO TID Qty: 30 0RF Rx Instructions: give 0800, 1200, 1700 ropinirole 2 mg tablet 3 mg PO HS Qty: 30 0RF Rx Instructions: 1999 Discontinued metoprolol tartrate 25 mg tablet 12.5 mg PO DAILY Rx Instructions: HOLD FOR SBP <100 furosemide 20 mg tablet 40 mg PO UD Rx Instructions: Takes 40 mg Tues, Thurs, Sat and Sun. Takes 60 mg Mon, Wed and Sat Discharge Orders: Discharge Order (Routine); Ordered 10/15/22 Ordered By: Aleksey Joseph Admission Data Admit Date/Time: 10/05/22 14:58 Attending Provider: Aleksey Joseph Admit Provider: Radha South Primary Care Provider: STATE TARUN BARNETT Other Providers: [facility] ; Cam Huerta ; Leo Rizvi ; Piyush Kerns I. ; Mil Kenyon II ; Irasema Loza ; Checo Reese ; Ramesh Cummings ; Jagjit Fletcher ; Will Maravilla
[2022-10-15] MEDS: hydrOXYzine HCl 25 MG TAB PO PRN (12:34)
[2022-10-15] MEDS ORDERED: ERTAPENEM SODIUM 1,000 MG in SYRINGE 0 ML IV SCH ×2 (14:00→16:00)
== END 2022-10-15 15:21 | DRG 872 ==
LOC: ED 10:58 → SUATTDRO 14:58 → 2W 14:58 → 3W 10-14 23:41

== ENCOUNTER 2022-12-10 12:28 | Inpatient (IN) ==
[2022-12-10] MEDS ORDERED: ACETAMINOPHEN 500 MG TAB PO STA (13:05)
--- NOTE | 2022-12-10 13:20 | XRay Report ---
SINGLE VIEW CHEST CLINICAL HISTORY: Sepsis FINDINGS: An AP, portable, upright chest radiograph is compared to study dated 10/05/2022. The heart i s mildly enlarged. The pulmonary vasculature is noncongested. Chronic interstitial thickening is ike lar to previous. There is mild bibasilar scarring/atelectasis. The lungs and pleural spaces are other hernandez clear. No pneumothorax is seen. The skeletal structures are osteopenic. The bony thorax is gross ly intact. Arthritic change is noted in the shoulders. IMPRESSION: No active disease in the chest. ACT 112: Negative or not required by law. Electronically signed by: Julian Sibley M.D. 12/10/2022 1:18 PM
[2022-12-10] MEDS: SODIUM CHLORIDE 0.9% 1000ML 1,000 ML IV SCH ×2 (13:56→16:10)
[2022-12-10 14:29] LABS: Hematocrit (blood only) 19.6 % (37.0-47.0); Mean Corpuscular Hgb Conc 30.6 g/dL (32.0-36.0); Mean Corpuscular Volume 91.6 fL (80.0-100.0); Mean Platelet Volume 11.4 fL (9.4-12.4); Platelet Count 197 K/uL (130-400); RDW Coefficient of Variation 18.5 % (11.5-14.5); RDW Standard Deviation 62.4 fL (36.4-46.3); Red Blood Count 2.14 M/uL (4.20-5.40); White Blood Count 11.92 K/ul (4.8-10.8)
[2022-12-10 14:40] LABS: Alanine Aminotransferase < 3 U/L (7-52); Albumin Level 3.2 gm/dl (3.4-5.0); Alkaline Phosphatase 118 U/L (34-104); Anion Gap 6 (3-11); Bilirubin,Total 0.4 mg/dl (0.2-1.0); Calcium 8.2 mg/dl (8.6-10.3); Carbon Dioxide 24 mmol/L (21-32); Chloride 106 mmol/L (98-107); Creatinine Clr Calc Pharmacy 51.1 ml/min; Est GFR (African American) 77.1 ml/min; Est GFR (Non-African American) 66.6 ml/min; Glucose 103 mg/dl (70-99(Fasting)); Magnesium 1.7 mg/dl (1.7-2.4); Sodium 136 mmol/L (136-145); Total Protein 5.7 gm/dl (6.0-8.3); Troponin I High Sensitivity 8.4 pg/ml (0-14)
--- NOTE | 2022-12-10 14:49 | Emergency Department Note ---
Impression & Plan Fever, Acute UTI (urinary tract infection), Sepsis ED Provider Note INFORMANT: Patient ED PROVIDER(S): Gregg Serna MD CHIEF COMPLAINT: Urinary symptoms PLAN: Disposition: Admitted Condition: Good Outpatient prescription management: none Referral: None MEDICAL DECISION MAKING: Patient presented to emergency department because of urinary symptoms. A work- up was initiated. Her blood pressure was mildly low. She had a borderline fever. Patient had an unremarkable white count. Her CBC revealed a significant anemia which was much worse than prior. Nursing noted they had a difficult time drawing her labs and repeat hemoglobin was performed. This revealed a moderate anemia but not requiring transfusion. Patient was treated with Tylenol for her borderline fever. Due to the flank pain I did order CT and patient was empirically treated with daptomycin and cefepime. Patient will need further management in the hospital. She did receive a 30 mL/kg fluid bolus. The patient has a normal lactate. She does have a history of sepsis and this is concerning. Procalcitonin was elevated. [facility] Case was discussed and diagnostics were reviewed. Patient will be admitted by Dr. Willett. Discussed with inside sales account manager After review of the information above and other included data, I feel the patient requires admission. Triage Nursing notes reviewed and agree them. Vital Signs: reviewed and remarkable for fever and hypotension. Patient's blood pressure is normally around 90 systolic. She was 79 systolic on arrival. Prior /Outside records reviewed: none Differential diagnosis: Infection, dehydration, metabolic abnormality, hypo/hyperglycemia, electrolyte disturbance, anemia, hypoxia, cardiac sources, intracerebral event, toxicologic, neurologic, as well as other pathologies. Diagnostics, as interpreted by me: ECG: Twelve-lead ECG reveals normal sinus rhythm at [address] elevation or depression. Cardiac Monitoring: Cardiac monitoring ordered by me: The patient was placed on continuous cardiac monitoring and observed. It revealed a normal sinus rhythm at 70 beats per minute without ectopy or evidence of dysrhythmia. Medical decision rules: none Imaging studies: CT scan of the abdomen pelvis reveals some mild left hyd ronephrosis without obvious ureterolithiasis. Mild ileus appreciated radiology read is pending at this time. HPI: The patient is a 72year old female who presents to the Emergency Room with complaints of urinary symptoms. This started over the last few days and persisting. Patient has personal-custodial and is home nursing sent a urine culture and coordinated for her to receive a dose of IV Rocephin. Personal-care staff sent her to the emergency department for evaluation. The patient also notes the following associated symptoms, general malaise, feeling feverish, dysuria, and left flank pain. Patient does have a history of sepsis. Patient's blood pressure was reportedly low for EMS. They note that she has chronically low blood pressures. Patient states she feels generally weak. She does have a history of lower extremity edema which has been stable no medication for. The patient has relieving factors. Current pain is rated as 0/10. Pt denies LOC, headache, chills, diaphoresis, visual changes, neck pain, chest pain, breathing difficulties, nausea, vomiting, abdominal pain, back pain, melena, hematochezia, numbness, lymphadenopathy, rash, or other complaints. PAST MEDICAL HISTORY: See Below, sepsis, cellulitis, COVID-19, JAEL PAST SURGICAL HISTORY: See Below, SOCIAL HISTORY: See Below, retired HOME MEDICATIONS: See Below ALLERGIES: See Below VITALS: See Below PHYSICAL EXAMINATION: GENERAL: Awake, alert, uncomfortable-appearing, in no distress HENT: Normocephalic, atraumatic. Oropharynx unremarkable. EYES: Normal conjunctiva. Sclera non-icteric. NECK: Inspection normal. Non-tender. Supple. No nuchal rigidity. FROM. No masses. RESPIRATORY: Clear to auscultation. No wheezes. No rales. Normal respiratory effort. CARDIAC: Normal rate. Normal rhythm. No murmurs. No rubs. Extremities warm and well perfused. Pulses equal. No JVD. GI: Soft, non-distended. No tenderness to palpation. No rebound or guarding. No masses. RECTAL: Deferred. MUSCULOSKELETAL: Atraumatic. Chest examination reveals no tenderness. The back is symmetrical on inspection without obvious abnormality. There is left CVA tenderness to palpation. No joint edema. LOWER EXTREMITIES: Calves are equal size bilaterally and non-tender. 2 edema. No discoloration. NEURO: Normal sensorium. No focal sensory or motor deficits noted. SKIN: No rash or jaundice noted. Past Med/Surg History Medical History Abdominal hernia Acute exacerbation of chronic low back pain ADHD Anemia Asthma uses PRN INH 3-4 x wk Bulging of intervertebral disc Claustrophobia Coagulopathy Difficult intravenous access Dysphagia Edenilson-Danlos syndrome Fibromyalgia ISAC (generalized anxiety disorder) Gastroparesis GERD (gastroesophageal reflux disease) Hearing deficit History of colon polyps History of colon polyps History of DVT (deep vein thrombosis) chronic anticoagulation History of intestinal obstruction Hyperlipidemia Hypokalemia Hypothyroidism Opioid dependence Osteoarthritis Osteoporosis Peripheral neuropathy Protein C deficiency Pulmonary embolism 07/2018 - treated w/ lovenox - unk etiology Recurrent falls Renal cyst Restless leg syndrome Sleep apnea unable to tolerate CPAP Tachycardia Thoracic aortic aneurysm follows w/ Dr. Arredondo - evaluated within last 6 mo Thyroid nodule Weakness Surgical History History of abdominoplasty + hernia repair History of arthroscopy of left knee History of bilateral breast reduction surgery History of cholecystectomy History of colonoscopy History of esophagogastroduodenoscopy (EGD) History of gastric bypass History of intestinal surgery History of laparotomy History of left knee replacement History of right knee joint replacement History of tonsillectomy Hx of melanoma excision shoulder S/P hysterectomy Self extubation attempted post gastric bypass Status post biopsy of thyroid gland benign Family History Uncle Stomach cancer Other No family history of adverse response to anesthesia No pertinent family history in first degree relatives Social History Smoking Status: Never smoker Second Hand Exposure: No; Do You Dip or Chew Tobacco: No; Hx Alcohol Use: No Hx Substance Use: No Preferred Language: Telugu Communication Ability: Effective Communication Ability Comment: pt is obtunded Visual Impairment: Limited Hearing Ability: Normal Mandolin Repairer Required: No Beliefs That Will Affect Care: None marital status: Single Current Living Situation: Alone Current Living Situation Comment: Condo - First Floor, able to specify name of Apartment Complex. How many Children do You have: 0 Feels Safe at Home: Yes Assistive Devices: Walker and Other Allergies Allergies Allergy/AdvReac Type Severity Reaction Status Date / Time ammonia Allergy Severe FACE, Verified 11/18/22 08:41 LIPS, TONGUE EDEMA buspirone Allergy Severe NEURO Verified 11/18/22 08:41 COMPLICATIONS duloxetine Allergy Intermediate RASH Verified 11/18/22 08:41 ITCHING lisinopril Allergy Intermediate cough Verified 11/18/22 08:41 adhesive Allergy Mild skin tears Verified 11/18/22 08:41 NSAIDS (Non-Steroidal Allergy Unknown not Verified 11/18/22 08:41 Anti-Inflamma supposed to use-S/P GASTRIC BYPASS vancomycin Allergy Unknown ON KAYLAH Verified 11/18/22 08:41 MED LIST venlafaxine Allergy Unknown AFFECTS Verified 11/18/22 08:41 LEGS diphenhydramine AdvReac Intermediate RESTLESS Verified 11/18/22 08:41 LEGS gabapentin AdvReac Intermediate MUSCLE Verified 11/18/22 08:41 STIFFNESS Home Meds Home Medications Medication Instructions Recorded Confirmed albuterol sulfate 90 mcg/actuation 2 inh inhalation Q6 PRN Shortness 01/09/22 11/18/22 aerosol inhaler Of Breath Or Wheezing atorvastatin 20 mg tablet 20 mg PO QAM 01/09/22 11/18/22 biotin 1 mg tablet 1 mg PO DAILY 01/09/22 11/18/22 buprenorphine 15 mcg/hour weekly 1 patch topical WK 01/09/22 11/18/22 transdermal patch carbidopa 25 mg-levodopa 100 mg 1 tab PO TID 01/09/22 11/18/22 tablet ergocalciferol (vitamin D2) 1,250 1,250 mcg PO WK 01/09/22 11/18/22 mcg (50,000 unit) capsule (Vitamin D2) fluticasone 100 mcg-salmeterol 50 1 inh inhalation BID 01/09/22 11/18/22 mcg/dose blistr powdr for inhalation (Advair Diskus) fluticasone propionate 50 2 spray intranasal DAILY 01/09/22 11/18/22 mcg/actuation nasal spray,suspension (Flonase Allergy Relief) hydroxyzine HCl 25 mg tablet 25 mg PO Q6 PRN ANXIETY/ITCHING 01/09/22 11/18/22 levothyroxine 50 mcg tablet 50 mcg PO DAILY 01/09/22 11/18/22 meclizine 25 mg tablet 25 mg PO TID PRN DIZZY 01/09/22 11/18/22 montelukast 10 mg tablet 10 mg PO HS 01/09/22 11/18/22 potassium chloride 20 mEq oral See Rx Instructions .Route .COMPLEX 01/09/22 packet (Klor-Con) sennosides 8.6 mg-docusate sodium 1 tab-cap PO BID 01/09/22 11/18/22 50 mg tablet (Senna-S) thiamine HCl (vitamin B1) 100 mg 100 mg PO BID 01/09/22 11/18/22 tablet vit C 250 mg-vit E 90 mg-zinc 40 1 tab PO DAILY 01/09/22 11/18/22 mg-copper 1 [id number] capsule (PreserVision AREDS-2) mirtazapine 15 mg tablet 15 mg PO HS 07/22/22 11/18/22 Saccharomyces boulardii 250 mg 250 mg PO BID 10/03/22 11/18/22 capsule (Florastor) furosemide 20 mg tablet (Lasix) 20 mg PO DAILY PRN WT GAIN OF 3 10/03/22 11/18/22 LBS OR MORE omega-3 fatty acids 1,000 mg 1,000 mg PO DAILY 10/03/22 11/18/22 capsule omeprazole 40 mg capsule,delayed 40 mg PO DAILY 10/03/22 11/18/22 release oxycodone-acetaminophen 5 mg-325 1 tab PO Q8H PRN Pain (Scale Score 10/03/22 11/18/22 mg tablet (Percocet) 4-10) warfarin 2 mg tablet 2 mg PO Q OTHER DAY 10/03/22 11/18/22 warfarin 4 mg tablet 4 mg PO Q OTHER DAY 10/03/22 11/18/22 amino acids-multivit with iron and 1 tab PO DAILY 10/28/22 11/18/22 minerals tablet metaxalone 800 mg tablet 800 mg PO TID PRN Spasms 10/28/22 11/18/22 potassium chloride 20 mEq 1 meq PO PM 10/28/22 11/18/22 tablet,extended release(part/cryst) potassium chloride 20 mEq 40 meq PO DAILY 10/28/22 11/18/22 tablet,extended release(part/cryst) Previous Rx's Medication Instructions Recorded midodrine 2.5 mg tablet 2.5 mg PO TID@0800,1200,1700 #90 10/15/22 tabs ropinirole 1 mg tablet 2 mg PO TID #30 tabs 10/15/22 ropinirole 2 mg tablet 3 mg PO HS #30 tabs 10/15/22 Results & Data (ED) Vital Signs Vital Signs - 24 hr 12/10/22 12:36 12/10/22 12:59 12/10/22 14:32 Temperature 37.6 C H Temperature Source Oral Pulse Rate 79 75 77 Pulse Rate [Left Finger] Pulse Rate from SpO2 Sensor Pulse Rhythm [Left Finger] Pulse Strength [Left Finger] Respiratory Rate 24 Respiratory Effort / Characteristics Non-Labored Respiratory Depth Normal Respiratory Pattern Regular Blood Pressure 79/49 L Blood Pressure [Left Arm] Blood Pressure Mean 59 Blood Pressure Mean [Left Arm] Blood Pressure Position [Left Arm] Pulse Oximetry 94 95 Oxygen Delivery Method Room Air Room Air Sepsis Recent Fever Within 48 Hours No Sepsis New/Unexplained Change in Mental Status N/A Sepsis Action Taken by Nursing No Action Required 12/10/22 14:24 12/10/22 14:30 12/10/22 14:30 Temperature Temperature Source Pulse Rate 79 77 Pulse Rate [Left Finger] Pulse Rate from SpO2 Sensor 80 78 Pulse Rhythm [Left Finger] Pulse Strength [Left Finger] Respiratory Rate 23 23 Respiratory Effort / Characteristics Respiratory Depth Respiratory Pattern Blood Pressure 90/60 L Blood Pressure [Left Arm] Blood Pressure Mean 67 Blood Pressure Mean [Left Arm] Blood Pressure Position [Left Arm] Pulse Oximetry 100 96 Oxygen Delivery Method Sepsis Recent Fever Within 48 Hours Sepsis New/Unexplained Change in Mental Status Sepsis Action Taken by Nursing 12/10/22 14:45 12/10/22 15:00 12/10/22 15:02 Temperature Temperature Source Pulse Rate 76 77 Pulse Rate [Left Finger] Pulse Rate from SpO2 Sensor 76 78 Pulse Rhythm [Left Finger] Pulse Strength [Left Finger] Respiratory Rate 20 21 Respiratory Effort / Characteristics Respiratory Depth Respiratory Pattern Blood Pressure 106/75 Blood Pressure [Left Arm] Blood Pressure Mean 78 Blood Pressure Mean [Left Arm] Blood Pressure Position [Left Arm] Pulse Oximetry 94 97 Oxygen Delivery Method Sepsis Recent Fever Within 48 Hours Sepsis New/Unexplained Change in Mental Status Sepsis Action Taken by Nursing 12/10/22 15:02 12/10/22 15:15 12/10/22 15:30 Temperature Temperature Source Pulse Rate 75 78 Pulse Rate [Left Finger] Pulse Rate from SpO2 Sensor 75 78 Pulse Rhythm [Left Finger] Pulse Strength [Left Finger] Respiratory Rate 24 18 Respiratory Effort / Characteristics Respiratory Depth Respiratory Pattern Blood Pressure 71/43 L Blood Pressure [Left Arm] Blood Pressure Mean 54 Blood Pressure Mean [Left Arm] Blood Pressure Position [Left Arm] Pulse Oximetry 97 97 Oxygen Delivery Method Sepsis Recent Fever Within 48 Hours Sepsis New/Unexplained Change in Mental Status Sepsis Action Taken by Nursing 12/10/22 15:30 12/10/22 15:32 12/10/22 15:32 Temperature Temperature Source Pulse Rate 77 76 Pulse Rate [Left Finger] Pulse Rate from SpO2 Sensor 89 76 Pulse Rhythm [Left Finger] Pulse Strength [Left Finger] Respiratory Rate 22 17 Respiratory Effort / Characteristics Respiratory Depth Respiratory Pattern Blood Pressure 87/49 L Blood Pressure [Left Arm] Blood Pressure Mean 65 Blood Pressure Mean [Left Arm] Blood Pressure Position [Left Arm] Pulse Oximetry 94 94 Oxygen Delivery Method Sepsis Recent Fever Within 48 Hours Sepsis New/Unexplained Change in Mental Status Sepsis Action Taken by Nursing 12/10/22 16:11 Temperature 37.3 C Temperature Source Oral Pulse Rate Pulse Rate [Left Finger] 73 Pulse Rate from SpO2 Sensor Pulse Rhythm [Left Finger] Regular Pulse Strength [Left Finger] Normal Respiratory Rate 20 Respiratory Effort / Characteristics Non-Labored Spontaneous Respiratory Depth Normal Respiratory Pattern Regular Blood Pressure Blood Pressure [Left Arm] 75/49 L Blood Pressure Mean Blood Pressure Mean [Left Arm] 57 Blood Pressure Position [Left Arm] Lying Pulse Oximetry 97 Oxygen Delivery Method Room Air Sepsis Recent Fever Within 48 Hours Sepsis New/Unexplained Change in Mental Status Sepsis Action Taken by Nursing Laboratory Data 12/10/22 13:44 12/10/22 13:44 Lab Results 12/10/22 12/10/22 12/10/22 Range/Units 13:44 13:44 13:44 WBC 11.92 H (4.8-10.8) K/ul RBC 2.14 L (4.20-5.40) M/uL Hgb 6.0 L* (12.0-16.0) g/dl Hct 19.6 L* (37.0-47.0) % MCV 91.6 (80.0-100.0) fL MCH 28.0 (25.0-34.0) pg MCHC 30.6 L (32.0-36.0) g/dL RDW Std Deviation 62.4 H (36.4-46.3) fL RDW Coeff of Neftaly 18.5 H (11.5-14.5) % Plt Count 197 (130-400) K/uL MPV 11.4 (9.4-12.4) fL Immature Gran % (Auto) 0.7 % Neut % (Auto) 87.2 % Lymph % (Auto) 4.1 % [place] % (Auto) 7.6 % Eos % (Auto) 0.1 % Baso % (Auto) 0.3 % Neut # (Auto) 10.40 H (1.40-6.50) K/uL Lymph # (Auto) 0.49 L (1.2-3.4) K/uL [place] # (Auto) 0.90 H (0.11-0.59) K/uL Eos # (Auto) 0.01 (0-0.50) K/uL Baso # (Auto) 0.04 (0-0.2) K/uL Immature Gran # (Auto) 0.08 (0.01-0.20) K/uL Hypochromasia Present Sodium 136 (136-145) mmol/L Potassium TNP Chloride 106 (98-107) mmol/L Carbon Dioxide 24 (21-32) mmol/L Anion Gap 6 (3-11) BUN 25 H (6-23) mg/dl Creatinine 0.87 (0.6-1.2) mg/dl Est Cr Clr Drug Dosing 51.1 ml/min Est GFR ( Amer) 77.1 ml/min Est GFR (Non-Af Amer) 66.6 ml/min BUN/Creatinine Ratio 28.7 H (10-20) Glucose 103 H (70-99(Fasting)) mg/dl Lactate 1.0 (0.4-2.0) mmol/L Calcium 8.2 L (8.6-10.3) mg/dl Magnesium 1.7 (1.7-2.4) mg/dl Total Bilirubin 0.4 (0.2-1.0) mg/dl Direct Bilirubin TNP AST TNP ALT < 3 L (7-52) U/L Alkaline Phosphatase 118 H (34-104) U/L Troponin I High Sens 8.4 (0-14) pg/ml Total Protein 5.7 L (6.0-8.3) gm/dl Albumin 3.2 L (3.4-5.0) gm/dl Procalcitonin (0-0.5) ng/ml Urine Color Urine Appearance (Clear) Urine pH (4.5-7.5) Ur Specific [place] (1.000-1.030) Urine Protein (Negative) Urine Glucose (UA) (Negative) Urine Ketones (Negative) Urine Blood (Negative) Urine Nitrite (Negative) Urine Bilirubin (Negative) Urine Urobilinogen (Negative) Ur Leukocyte Esterase (Negative) Urine WBC (Auto) (0-5) /hpf Urine RBC (Auto) (0-4) /hpf U Hyaline Cast (Auto) (0-5) /lpf U Epithel Cells (Auto) (0-5) /lpf Urine Bacteria (Auto) (Negative) Blood Type Antibody Screen 12/10/22 12/10/22 12/10/22 Range/Units 13:44 14:27 14:57 WBC (4.8-10.8) K/ul RBC (4.20-5.40) M/uL Hgb 9.3 L D (12.0-16.0) g/dl Hct 29.1 L (37.0-47.0) % MCV (80.0-100.0) fL MCH (25.0-34.0) pg MCHC (32.0-36.0) g/dL RDW Std Deviation (36.4-46.3) fL RDW Coeff of Neftaly (11.5-14.5) % Plt Count (130-400) K/uL MPV (9.4-12.4) fL Immature Gran % (Auto) % Neut % (Auto) % Lymph % (Auto) % [place] % (Auto) % Eos % (Auto) % Baso % (Auto) % Neut # (Auto) (1.40-6.50) K/uL Lymph # (Auto) (1.2-3.4) K/uL [place] # (Auto) (0.11-0.59) K/uL Eos # (Auto) (0-0.50) K/uL Baso # (Auto) (0-0.2) K/uL Immature Gran # (Auto) (0.01-0.20) K/uL Hypochromasia Sodium (136-145) mmol/L Potassium Chloride (98-107) mmol/L Carbon Dioxide (21-32) mmol/L Anion Gap (3-11) BUN (6-23) mg/dl Creatinine (0.6-1.2) mg/dl Est Cr Clr Drug Dosing ml/min Est GFR ( Amer) ml/min Est GFR (Non-Af Amer) ml/min BUN/Creatinine Ratio (10-20) Glucose (70-99(Fasting)) mg/dl Lactate (0.4-2.0) mmol/L Calcium (8.6-10.3) mg/dl Magnesium (1.7-2.4) mg/dl Total Bilirubin (0.2-1.0) mg/dl Direct Bilirubin AST ALT (7-52) U/L Alkaline Phosphatase (34-104) U/L Troponin I High Sens (0-14) pg/ml Total Protein (6.0-8.3) gm/dl Albumin (3.4-5.0) gm/dl Procalcitonin 1.34 H (0-0.5) ng/ml Urine Color Stone Urine Appearance Cloudy A (Clear) Urine pH 5.5 (4.5-7.5) Ur Specific [place] 1.009 (1.000-1.030) Urine Protein Negative (Negative) Urine Glucose (UA) Negative (Negative) Urine Ketones Negative (Negative) Urine Blood Trace H (Negative) Urine Nitrite Negative (Negative) Urine Bilirubin Negative (Negative) Urine Urobilinogen Negative (Negative) Ur Leukocyte Esterase 3+ H (Negative) Urine WBC (Auto) >30 H (0-5) /hpf Urine RBC (Auto) 5-10 H (0-4) /hpf U Hyaline Cast (Auto) 1-5 (0-5) /lpf U Epithel Cells (Auto) 5-10 H (0-5) /lpf Urine Bacteria (Auto) Negative (Negative) Blood Type Antibody Screen 12/10/22 12/10/22 Range/Units 14:57 14:57 WBC (4.8-10.8) K/ul RBC (4.20-5.40) M/uL Hgb (12.0-16.0) g/dl Hct (37.0-47.0) % MCV (80.0-100.0) fL MCH (25.0-34.0) pg MCHC (32.0-36.0) g/dL RDW Std Deviation (36.4-46.3) fL RDW Coeff of Neftaly (11.5-14.5) % Plt Count (130-400) K/uL MPV (9.4-12.4) fL Immature Gran % (Auto) % Neut % (Auto) % Lymph % (Auto) % [place] % (Auto) % Eos % (Auto) % Baso % (Auto) % Neut # (Auto) (1.40-6.50) K/uL Lymph # (Auto) (1.2-3.4) K/uL [place] # (Auto) (0.11-0.59) K/uL Eos # (Auto) (0-0.50) K/uL Baso # (Auto) (0-0.2) K/uL Immature Gran # (Auto) (0.01-0.20) K/uL Hypochromasia Sodium (136-145) mmol/L Potassium 4.1 Chloride (98-107) mmol/L Carbon Dioxide (21-32) mmol/L Anion Gap (3-11) BUN (6-23) mg/dl Creatinine (0.6-1.2) mg/dl Est Cr Clr Drug Dosing ml/min Est GFR ( Amer) ml/min Est GFR (Non-Af Amer) ml/min BUN/Creatinine Ratio (10-20) Glucose (70-99(Fasting)) mg/dl Lactate (0.4-2.0) mmol/L Calcium (8.6-10.3) mg/dl Magnesium (1.7-2.4) mg/dl Total Bilirubin (0.2-1.0) mg/dl Direct Bilirubin 0.0 AST 16 ALT (7-52) U/L Alkaline Phosphatase (34-104) U/L Troponin I High Sens (0-14) pg/ml Total Protein (6.0-8.3) gm/dl Albumin (3.4-5.0) gm/dl Procalcitonin (0-0.5) ng/ml Urine Color Urine Appearance (Clear) Urine pH (4.5-7.5) Ur Specific [place] (1.000-1.030) Urine Protein (Negative) Urine Glucose (UA) (Negative) Urine Ketones (Negative) Urine Blood (Negative) Urine Nitrite (Negative) Urine Bilirubin (Negative) Urine Urobilinogen (Negative) Ur Leukocyte Esterase (Negative) Urine WBC (Auto) (0-5) /hpf Urine RBC (Auto) (0-4) /hpf U Hyaline Cast (Auto) (0-5) /lpf U Epithel Cells (Auto) (0-5) /lpf Urine Bacteria (Auto) (Negative) Blood Type O Negative Antibody Screen NEGATIVE Administered Medications Daptomycin 275 mg/ Syringe 5.5 mls @ 2.75 mls/min IV Q24H ASHUTOSH; Protocol Stop: 12/12/22 15:14 Last Admin: 12/10/22 16:11 Dose: 2.75 mls/min Documented By: OSKAR Discontinued Medications Acetaminophen (Acetaminophen 500 Mg Tab) 1,000 mg PO NOW STA Stop: 12/10/22 13:06 Last Admin: 12/10/22 13:56 Dose: 1,000 mg Documented By: GBAE Sodium Chloride (Nss 1000ml) 1,000 mls @ 999 mls/hr IV .Q1H1M ASHUTOSH Stop: 12/10/22 15:00 Last Admin: 12/10/22 16:10 Dose: 999 mls/hr Documented By: Infusion: 12/10/22 16:07 Dose: 0 mls/hr Documented By: Admin: 12/10/22 13:56 Dose: 999 mls/hr Documented By: GABE Cefepime HCl (Maxipime) 2,000 mg in 20 mls @ 5 mls/min IV NOW STA; Protocol Stop: 12/10/22 15:16 Last Admin: 12/10/22 16:10 Dose: 5 mls/min Documented By: OSKAR Imaging Data Radiologist's Impression: Chest X-Ray 12/10/22 12:59 SINGLE VIEW CHEST CLINICAL HISTORY: Sepsis FINDINGS: An AP, portable, upright chest radiograph is compared to study dated 10/05/2022. The heart is mildly enlarged. The pulmonary vasculature is n oncongested. Chronic interstitial thickening is similar to previous. There is mild bibasilar scarring/atelectasis. The lungs and pleural spaces are otherwise clear. No pneumothorax is seen. The skeletal structures are osteopenic. The bony thorax is grossly intact. Arthritic change is noted in the shoulders. IMPRESSION: No active disease in the chest. ACT 112: Negative or not required by law. Electronically signed by: Julian Sibley M.D. 12/10/2022 1:18 PM Discharge Plan Visit Data Chief Complaint: Urinary Symptoms Stated Complaint: FEVER ED Provider: Gregg Serna Discharge Problem: Fever, Acute UTI (urinary tract infection), Sepsis Forms Stand Alone Forms: My [facility] Prescriptions Prescriptions: No Action atorvastatin 20 mg tablet 20 mg PO QAM sennosides-docusate sodium [Senna-S] 8.6-50 mg Tablet 1 tab-cap PO BID thiamine HCl (vitamin B1) 100 mg Tablet 100 mg PO BID potassium chloride [Klor-Con] 20 mEq packet See Rx Instructions .ROUTE .COMPLEX Rx Instructions: TAKES 40 meq qAM and 20qPM WHILE ON LASIX meclizine 25 mg Tablet 25 mg PO TID PRN (Reason: DIZZY) levothyroxine 50 mcg tablet 50 mcg PO DAILY montelukast 10 mg tablet 10 mg PO HS hydroxyzine HCl 25 mg Tablet 25 mg PO Q6 PRN (Reason: ANXIETY/ITCHING) ergocalciferol (vitamin D2) [Vitamin D2] 1,250 mcg (50,000 unit) Capsule 1,250 mcg PO WK Rx Instructions: WEDNESDAYS fluticasone propion-salmeterol [Advair Diskus] 100-50 mcg/dose Blister With Device 1 inh INHALATION BID albuterol sulfate 90 mcg/actuation Hfa Aerosol Inhaler 2 inh INHALATION Q6 PRN (Reason: Shortness Of Breath Or Wheezing) carbidopa-levodopa 25-100 mg Tablet 1 tab PO TID Rx Instructions: 0800, 1200 & 2000 fluticasone propionate [Flonase Allergy Relief] 50 mcg/actuation [place],Suspens ion 2 spray INTRANASAL DAILY biotin 1 mg Tablet 1 mg PO DAILY buprenorphine 15 mcg/hour patch weekly 1 patch topical WK Rx Instructions: THURSDAYS PreserVision AREDS-2 250-90-40-1 mg Capsule 1 tab PO DAILY omega-3 fatty acids 1,000 mg Capsule 1,000 mg PO DAILY omeprazole 40 mg capsule,delayed release(DR/EC) 40 mg PO DAILY warfarin 2 mg Tablet 2 mg PO Q OTHER DAY Rx Instructions: ALTERNATING 2 MG WITH 4 MG EVERY OTHER DAY. furosemide [Lasix] 20 mg Tablet 20 mg PO DAILY PRN (Reason: WT GAIN OF 3 LBS OR MORE) Saccharomyces boulardii [Florastor] 250 mg Capsule 250 mg PO BID warfarin 4 mg tablet 4 mg PO Q OTHER DAY Rx Instructions: ALTERNATING 4 MG WITH 2 MG EVERY OTHER DAY oxycodone-acetaminophen [Percocet] 5-325 mg tablet 1 tab PO Q8H MDD 3 GRAMS APAP/24 HOURS PRN (Reason: Pain (Scale Score 4-10)) midodrine 2.5 mg Tablet 2.5 mg PO TID@0800,1200,1700 Qty: 90 0RF ropinirole 1 mg tablet 2 mg PO TID Qty: 30 0RF Rx Instructions: give 0800, 1200, 1700 ropinirole 2 mg tablet 3 mg PO HS Qty: 30 0RF Rx Instructions: 1999 mirtazapine 15 mg tablet 15 mg PO HS potassium chloride 20 mEq tablet,ER particles/crystals 40 meq PO DAILY Ocuvite Extra Tablet 1 tab PO DAILY potassium chloride 20 mEq tablet,ER particles/crystals 1 meq PO PM metaxalone [Skelaxin] 800 mg Tablet 800 mg PO TID PRN (Reason: Spasms) Referrals [place] [Primary Care Provider] -
[2022-12-10 14:50] LABS: BUN Creatinine Ratio 28.7 (10-20); Blood Urea Nitrogen 25 mg/dl (6-23)
[2022-12-10 14:56] LABS: Appearance Urine Cloudy (Clear); Bacteria Urine Automated Negative (Negative); Bilirubin Urine Negative (Negative); Blood Urine Trace (Negative); Color Urine Orange; Glucose Urine UA Negative (Negative); Ketones Urine Negative (Negative); Leukocyte Esterase Urine 3+ (Negative); Nitrite Urine Negative (Negative); Protein Urine Negative (Negative); Specific Gravity Urine 1.009 (1.000-1.030); Urobilinogen Urine Negative (Negative); WBC Urine Automated >30 /hpf (0-5); pH Urine 5.5 (4.5-7.5)
[2022-12-10 15:00] LABS: Basophils # (auto) 0.04 K/uL (0-0.2); Basophils % (auto) 0.3 %; Eosinophils # (auto) 0.01 K/uL (0-0.50); Eosinophils % (auto) 0.1 %; Hypochromasia Present; Immature Granulocytes # (auto) 0.08 K/uL (0.01-0.20); Immature Granulocytes % (auto) 0.7 %; Lymphocytes # (auto) 0.49 K/uL (1.2-3.4); Lymphocytes % (auto) 4.1 %; Monocytes % (auto) 7.6 %; Neutrophils % (auto) 87.2 %
[2022-12-10] MEDS ORDERED: CEFEPIME 2,000 MG/20 ML VIAL IV STA (15:13)
[2022-12-10] MEDS ORDERED: DAPTOmycin 275 MG in SYRINGE 0 ML IV SCH (15:15)
[2022-12-10 15:28] LABS: Hematocrit (blood only) 29.1 % (37.0-47.0); Hemoglobin 9.3 g/dl (12.0-16.0)
[2022-12-10 15:41] LABS: Potassium 4.1 mmol/L (3.5-5.1)
--- NOTE | 2022-12-10 16:35 | History & Physical Report ---
Date of Service December 10, 2022 Assessment & Plan (1) Acute UTI (urinary tract infection): Plan This is a 72-year-old female who has significant past medical history of chronic diastolic CHF, history of PSVT, HTN, thoracic aortic aneurysm, Edenilson-Danlos syndrome, secondary hyperparathyroidism, hypothyroidism, hyperlipidemia, BRANDIE on CPAP, asthma, vitamin D deficiency, GERD, history of diverticulitis with colon perforation, RLS, fibromyalgia, chronic pain syndrome, hypercoagulability, history of gastric bypass, depression, history of PTSD, history of PE who presents to ED secondary to Urinary symptoms. Acute UTI Dysuria admit to PCU pt presented with hypotension, although at baseline pt BP in 90s systolic. She also had mildly elevated temp. Technically she does not meet criteria for Sepsis. but early sepsis is probable received IV Dapto/Cefepime in ED will continue with IV cefepime for likely urine source, await urine/blood culture Urine culture in [facility] likely more reliable as it was obtained prior to antibiotics, procal 1.34 CT a/p reviewed - previous diverticular abscess resolved, ? enterocolitis; however pt is having no abd pain and formed stool, monitor will hold on further fluid resuscitation at this point given improved pressures and pt with chronic edema, received 2L in a.m eval in a.m. need for further fluid Hx of PE/DVT Hypercoagulable state Supratherapeutic INR hold warfarin INR 3.8 repeat INR In a.m. home dose is 2mg MWF and 4mg all other days POTS/Chronic low blood pressure continue midodrine Chronic Pain Ehler Danlos syndrome continue buprenorphine patch/oxy, lidocaine pdmp checked Hx of Parkinson RLS continue requip, sinemet walks with rollator, will consult PT/OT Chronic Anemia hgb stable at 9.3 receives iron infusion with Heme/Dr. Turner Chronic lower extremity edema 2/2 lymphedema Chronic Diastolic HF pt with chronic edema, at baseline, chronic erythema no cellulitis hold lasix for now, re eval in a.m. to resume if pressures allow Chronic R shoulder dislocation continue pain meds wishing for replacement, but states currently not a candidate Hypothyroidism continue levothyroxine DVT ppx: warfarin Dispo: PCU FULL CODE PCP: Alla Agee Pt was seen and examined in collaboration with Dr. Willett, please see addendum A total of 75 minutes was spent coordinating, documenting, and providing care for this patient excluding time spent in the performance of separately billed services. This included personally viewing all current laboratories and imaging studies, medication reconciliation, outpatient chart review, and discussion with specialists. History of Present Illness Chief Complaint: Urinary sx x 1 day. Primary Care Provider: [facility] This is a 72-year-old female who has significant past medical history of chronic diastolic CHF, history of PSVT, HTN, thoracic aortic aneurysm, Edenilson-Danlos syndrome, secondary hyperparathyroidism, hypothyroidism, hyperlipidemia, BRANDIE on CPAP, asthma, vitamin D deficiency, GERD, history of diverticulitis with colon perforation, RLS, fibromyalgia, chronic pain syndrome, hypercoagulability, history of gastric bypass, depression, history of PTSD, history of PE who presents to ED secondary to Urinary symptoms. Of Significance patient follows [facility] at home. She lives at [facility]. She was evaluated by provider today due to urinary symptoms and concern for UTI. A urine sample was obtained and is currently pending. She also received 1 g IM Rocephin. Blood pressures were at baseline per [facility] at home. At that point in time no IV fluids was recommended just increased oral intake. Personal senior care ended up sending patient to ED for further evaluation. Patient also noted feeling generally weak, general malaise, feeling feverish, dysuria and left flank pain. She also complains of incomplete bladder emptying and urgency but denies hematuria. She denies vianca diarrhea. Last BM was yesterday and formed. She was given Linzess today which she states causes her to have diarrhea. She does have prior history of sepsis as well as recent history of Bacteroides fragilis bacteremia in setting of perforated diverticulitis. She chronically has low blood pressure due to POTS. Baseline blood pressure is 90 systolically. Currently patient denies any pain, recent fall, chills, lightheadedness, dizzy, headache, change in vision, chest pain, shortness breath, URI symptoms, nausea, vomiting, abdominal pain, melena, hematochezia. In ED she received IV Dapto and cefepime along with 30ml/kg IVF resuscitation. Her initial BP was 70s systolic but has since improved to 90s and HR has remained stable. She did have mildly elevated temp at 37.6. Allergies Allergy/AdvReac Type Severity Reaction Status Date / Time ammonia Allergy Severe FACE, Verified 12/10/22 16:47 LIPS, TONGUE EDEMA buspirone Allergy Severe NEURO Verified 12/10/22 16:47 COMPLICATIONS duloxetine Allergy Intermediate RASH Verified 12/10/22 16:47 ITCHING adhesive Allergy Mild skin tears Verified 12/10/22 16:47 vancomycin Allergy Unknown ON [facility] Verified 12/10/22 16:47 MED LIST diphenhydramine AdvReac Intermediate RESTLESS Verified 12/10/22 16:47 LEGS gabapentin AdvReac Intermediate MUSCLE Verified 12/10/22 16:47 STIFFNESS lisinopril AdvReac Intermediate cough Verified 12/10/22 16:47 NSAIDS (Non-Steroidal AdvReac Unknown not Verified 12/10/22 16:47 Anti-Inflamma supposed to use-S/P GASTRIC BYPASS venlafaxine AdvReac Unknown AFFECTS Verified 12/10/22 16:47 LEGS Home Medications Medication Instructions Recorded Confirmed Type atorvastatin 20 mg tablet 20 mg PO QAM 01/09/22 12/10/22 History buprenorphine 15 mcg/hour weekly 1 patch topical WK 01/09/22 12/10/22 History transdermal patch carbidopa 25 mg-levodopa 100 mg 1 tab PO TID 01/09/22 12/10/22 History tablet ergocalciferol (vitamin D2) 1,250 1,250 mcg PO WK 01/09/22 12/10/22 History mcg (50,000 unit) capsule (Vitamin D2) fluticasone 100 mcg-salmeterol 50 1 inh inhalation BID 01/09/22 12/10/22 History mcg/dose blistr powdr for inhalation (Advair Diskus) fluticasone propionate 50 2 spray intranasal DAILY 01/09/22 12/10/22 History mcg/actuation nasal spray,suspension (Flonase Allergy Relief) hydroxyzine HCl 25 mg tablet 25 mg PO Q6 PRN ANXIETY/ITCHING 01/09/22 12/10/22 History levothyroxine 50 mcg tablet 50 mcg PO DAILY 01/09/22 12/10/22 History montelukast 10 mg tablet 10 mg PO HS 01/09/22 12/10/22 History Saccharomyces boulardii 250 mg 250 mg PO BID 10/03/22 12/10/22 History capsule (Florastor) furosemide 20 mg tablet (Lasix) 20 mg PO DAILY PRN WT GAIN OF 3 10/03/22 12/10/22 History LBS OR MORE omeprazole 40 mg capsule,delayed 40 mg PO DAILY 10/03/22 12/10/22 History release oxycodone-acetaminophen 5 mg-325 1 tab PO Q8H PRN Pain (Scale Score 10/03/22 12/10/22 History mg tablet (Percocet) 4-10) warfarin 2 mg tablet 2 mg PO 3XWK 10/03/22 12/10/22 History warfarin 4 mg tablet 4 mg PO 4XWK 10/03/22 12/10/22 History potassium chloride 20 mEq 20 meq PO QDD 10/28/22 12/10/22 History tablet,extended release(part/cryst) potassium chloride 20 mEq 40 meq PO DAILY 10/28/22 12/10/22 History tablet,extended release(part/cryst) acetaminophen 500 mg tablet 1,000 mg PO Q8H PRN TEMP >100F/PAIN 12/10/22 12/10/22 History (Tylenol Extra Strength) acetaminophen 500 mg tablet 1,000 mg PO QDL 12/10/22 12/10/22 History (Tylenol Extra Strength) furosemide 40 mg tablet (Lasix) 60 mg PO DAILY 12/10/22 12/10/22 History lidocaine 4 % topical patch 2 patch topical DAILY 12/10/22 12/10/22 History linaclotide 290 mcg capsule 290 mcg PO QDL 12/10/22 12/10/22 History (Linzess) loperamide 2 mg tablet 2 mg PO Q6H PRN Diarrhea 12/10/22 12/10/22 History metoprolol tartrate 25 mg tablet 12.5 mg PO DAILY 12/10/22 12/10/22 History midodrine 2.5 mg tablet 2.5 mg PO TID 12/10/22 12/10/22 History mirtazapine 30 mg tablet 30 mg PO HS 12/10/22 12/10/22 History ropinirole 2 mg tablet 3 mg PO TID 12/10/22 12/10/22 History ropinirole 3 mg tablet 3 mg PO HS 12/10/22 12/10/22 History Past Med/Surg History Medical History Abdominal hernia Acute exacerbation of chronic low back pain ADHD Anemia Asthma uses PRN INH 3-4 x wk Bulging of intervertebral disc Claustrophobia Coagulopathy Difficult intravenous access Dysphagia Edenilson-Danlos syndrome Fibromyalgia ISAC (generalized anxiety disorder) Gastroparesis GERD (gastroesophageal reflux disease) Hearing deficit History of colon polyps History of colon polyps History of DVT (deep vein thrombosis) chronic anticoagulation History of intestinal obstruction Hyperlipidemia Hypokalemia Hypothyroidism Opioid dependence Osteoarthritis Osteoporosis Peripheral neuropathy Protein C deficiency Pulmonary embolism 07/2018 - treated w/ lovenox - unk etiology Recurrent falls Renal cyst Restless leg syndrome Sleep apnea unable to tolerate CPAP Tachycardia Thoracic aortic aneurysm follows w/ Dr. Arredondo - evaluated within last 6 mo Thyroid nodule Weakness Surgical History History of abdominoplasty + hernia repair History of arthroscopy of left knee History of bilateral breast reduction surgery History of cholecystectomy History of colonoscopy History of esophagogastroduodenoscopy (EGD) History of gastric bypass History of intestinal surgery History of laparotomy History of left knee replacement History of right knee joint replacement History of tonsillectomy Hx of melanoma excision shoulder S/P hysterectomy Self extubation attempted post gastric bypass Status post biopsy of thyroid gland benign Family History Uncle Stomach cancer Other No family history of adverse response to anesthesia No pertinent family history in first degree relatives Social History Smoking Status: Never smoker Second Hand Exposure: No; Do You Dip or Chew Tobacco: No; Tobacco Cessation Education Requested by Patient: No Hx Alcohol Use: No Hx Substance Use: No Preferred Language: Tamazight Communication Ability: Effective Communication Ability Comment: pt is obtunded Visual Impairment: Limited Hearing Ability: Normal Gaming Surveillance Observer Required: No Beliefs That Will Affect Care: Evangelical marital status: Single Current Living Situation: Personal Care Facility Current Living Situation Comment: Condo - First Floor, able to specify name of Apartment Complex. How many Children do You have: 0 Other Information That Helps Us Care for You: No Feels Safe at Home: Yes Safety Concerns: Feels Safe At This Time Assistive Devices: Cane and Walker Review of Systems Review of Systems: All systems reviewed & are unremarkable except as noted in HPI & below Physical Exam Physical Exam: Constitutional: Elderly, F, lying in bed, WD/WN, vitals as above, NAD, sitting up in bed, pleasant, conversing easily Head: Normocephalic, Atraumatic Eyes: PERRL, conjunctivae normal, anicteric sclerae ENMT: external ear and nose normal, oropharynx normal dry membranes Neck: trachea midline, no thyromegaly normal visual inspection Respiratory: normal respiratory effort, lungs clear to auscultation, no wheeze, rales, rhonchi. Normal insp/exp effort, no accessory muscle use Cardiovascular: RRR, no murmur, chronic b/l lymphedema with chronic erythematous changes, no open wounds/cellulitis Vessels: no JVD or carotid bruit Chest: normal inspection of chest Abdomen: normal bowel sounds, soft, nontender, no hepatosplenomegaly Musculoskeletal: no cyanosis or clubbing, extremities motor strength 5/5 Skin: no rashes, warm and dry normal turgor Neurologic: PERRL, EOMI, accommodation nl, no face palsy, no dysarthria CN's II-XI intact bilaterally and moves all extremities Psychiatric: A+Ox3, euthymic affect Lymphatic: no cervical or axillary lymphadenopathy : deferred Results & Data Results & Data Vital Signs (Past 12 Hours) Vital Signs Temp Pulse Pulse Resp BP BP Pulse Ox 12/10/22 16:11 37.3 C 73 20 75/49 L 97 12/10/22 15:32 76 17 94 12/10/22 15:32 87/49 L 12/10/22 15:30 77 22 94 12/10/22 15:30 71/43 L 12/10/22 15:15 78 18 97 12/10/22 15:02 75 24 97 12/10/22 15:02 106/75 12/10/22 15:00 77 21 97 12/10/22 14:45 76 20 94 12/10/22 14:30 77 23 96 12/10/22 14:30 90/60 L 12/10/22 14:24 79 23 100 12/10/22 14:32 77 12/10/22 12:59 75 95 12/10/22 12:36 37.6 C H 79 24 79/49 L 94 O2 Del Method 12/10/22 16:11 Room Air 12/10/22 15:32 12/10/22 15:32 12/10/22 15:30 12/10/22 15:30 12/10/22 15:15 12/10/22 15:02 12/10/22 15:02 12/10/22 15:00 12/10/22 14:45 12/10/22 14:30 12/10/22 14:30 12/10/22 14:24 12/10/22 14:32 12/10/22 12:59 Room Air 12/10/22 12:36 Room Air Diagnostic Findings Chest X-Ray 12/10/22 12:59 SINGLE VIEW CHEST CLINICAL HISTORY: Sepsis FINDINGS: An AP, portable, upright chest radiograph is compared to study dated 10/05/2022. The heart is mildly enlarged. The pulmonary vasculature is noncongested. Chronic interstitial thickening is similar to previous. There is mild bibasilar scarring/atelectasis. The lungs and pleural spaces are otherwise clear. No pneumothorax is seen. The skeletal structures are osteopenic. The bony thorax is grossly intact. Arthritic change is noted in the shoulders. IMPRESSION: No active disease in the chest. ACT 112: Negative or not required by law. Electronically signed by: Julian Sibley M.D. 12/10/2022 1:18 PM Medications Administered Medication List Daptomycin 275 mg/ Syringe 5.5 mls @ 2.75 mls/min IV Q24H [facility]; Protocol Stop: 12/12/22 15:14 Last Admin: 12/10/22 16:11 Dose: 2.75 mls/min Documented By: OSKAR Discontinued Medications Acetaminophen (Acetaminophen 500 Mg Tab) 1,000 mg PO NOW STA Stop: 12/10/22 13:06 Last Admin: 12/10/22 13:56 Dose: 1,000 mg Documented By: GABE Sodium Chloride (Nss 1000ml) 1,000 mls @ 999 mls/hr IV .Q1H1M ASHUTOSH Stop: 12/10/22 15:00 Last Admin: 12/10/22 16:10 Dose: 999 mls/hr Documented By: Infusion: 12/10/22 16:07 Dose: 0 mls/hr Documented By: Admin: 12/10/22 13:56 Dose: 999 mls/hr Documented By: GABE Cefepime HCl (Maxipime) 2,000 mg in 20 mls @ 5 mls/min IV NOW STA; Protocol Stop: 12/10/22 15:16 Last Admin: 12/10/22 16:10 Dose: 5 mls/min Documented By: OSKAR ECG Rate (beats per minute): 72 Rhythm: normal sinus COVID-19 Results Results COVID-19 Adm Lab Results: RBC 3.11 M/uL (4.20-5.40) L 12/11/22 WBC 7.19 K/ul (4.8-10.8) 12/11/22 Hgb 8.8 g/dl (12.0-16.0) L 12/11/22 Hct 27.4 % (37.0-47.0) L 12/11/22 Plt Count 191 K/uL (130-400) 12/11/22 Neutrophils (%) (Auto) 86.8 % 12/11/22 Lymphocytes (%) (Auto) 5.1 % 12/11/22 Monocytes # (Auto) 0.52 K/uL (0.11-0.59) 12/11/22 Eosinophils # (Auto) 0.01 K/uL (0-0.50) 12/11/22 Immature Granulocyte % (Auto) 0.4 % 12/11/22 Neutrophils # (Auto) 6.23 K/uL (1.40-6.50) 12/11/22 Lymphocytes # (Auto) 0.37 K/uL (1.2-3.4) L 12/11/22 Monocytes # (Auto) 0.52 K/uL (0.11-0.59) 12/11/22 Eosinophils # (Auto) 0.01 K/uL (0-0.50) 12/11/22 Basophils # (Auto) 0.03 K/uL (0-0.2) 12/11/22 Immature Granulocyte # (Auto) 0.03 K/uL (0.01-0.20) 3 Hypochromasia Present 12/10/22 Na 135 mmol/L (136-145) L 12/11/22 K 3.9 mmol/L (3.5-5.1) 12/11/22 Cl 105 mmol/L (98-107) 12/11/22 CO2 23 mmol/L (21-32) 12/11/22 Anion Gap 7 (3-11) 12/11/22 BUN 23 mg/dl (6-23) 12/11/22 Creatinine 0.80 mg/dl (0.6-1.2) 12/11/22 BUN/Creatinine Ratio 28.8 (10-20) H 12/11/22 Glucose Level 117 mg/dl (70-99(Fasting)) H 12/11/22 Ca 8.4 mg/dl (8.6-10.3) L 12/11/22 Total Bilirubin 0.3 mg/dl (0.2-1.0) 12/11/22 Direct Bilirubin 0.0 mg/dl (0-0.2) 12/10/22 AST/SGOT 17 U/L (13-39) 12/11/22 ALT/SGPT < 3 U/L (7-52) L 12/11/22 Alkaline Phosphatase 115 U/L (34-104) H 12/11/22 Total Protein 5.5 gm/dl (6.0-8.3) L 12/11/22 Albumin 2.9 gm/dl (3.4-5.0) L 12/11/22 Globulin 2.6 gm/dl (2.5-4.0) 12/11/22 Albumin/Globulin Ratio 1.1 (0.9-2) 12/11/22 Procalcitonin 1.34 ng/ml (0-0.5) H 12/10/22 INR 5.7 (0.9-1.1) H* 12/11/22 SARS-CoV-2, RNA, NAAT NEGATIVE (NEGATIVE) 12/10/22 Chest X-Ray 12/10/22 Code Status & VTE Plan Code Status FULL CODE VTE Prophylaxis Plan VTE Prophylaxis will be ordered: No Reason for no VTE drug order: Treatment not indicated Supervising Physician Co-Signing Physician Notes Pt was seen and examined. Agreed with Ning SCHMIDT exam, assessment and plan. 72-year-old female who has significant past medical history of chronic diastolic CHF, history of PSVT, HTN, thoracic aortic aneurysm, Edenilson-Danlos syndrome, secondary hyperparathyroidism, hypothyroidism, hyperlipidemia, BRANDIE on CPAP, asthma, vitamin D deficiency, GERD, history of diverticulitis with colon perforation, RLS, fibromyalgia, chronic pain syndrome, hypercoagulability, history of gastric bypass, depression, history of PTSD, history of PE who presents to ED secondary to urinary symptoms. Pt was sent to the ER because provider at the facility was concerned for UTI. She was given Rocephin 1gm IM today. Pt said that she has been having recurrent episodes of diarrhea. Pt said that she felt weak and chills. SBP on admission was in 70's initially. UA on admission positive for Leukocytes. Elevated procalcitonin and WBC. CT abd/pelvis showed liquid stool in the right colon, as well as fluid-filled loops of small bowel. No bowel obstruction is identified. Correlate clinically for evidence of a nonspecific enterocolitis. Received IV fluid, Cefepime and IV dapto in the ER. Will continue IV cefepime. Blood cx and urine cx collected in the ER, will follow. Will continue monitor BP closely. Monitor CBC and BMP. Continue monitor closely in telemetry. MD Tamie
--- NOTE | 2022-12-10 16:59 | CT Scan Report ---
CT SCAN OF THE ABDOMEN AND PELVIS WITHOUT IV CONTRAST CLINICAL HISTORY: Left flank pain. Urinary tract infection. COMPARISON STUDY: Abdominal CT dated 10/09/2022. Chest CT dated 02/06/2022. TECHNIQUE: CT scan of the abdomen and pelvis is performed from the lung bases to the proximal femora. Images are reviewed in the axial, sagittal, and coronal planes. IV contrast was not administered for this examination as per the referring clinician. Note that the examination was performed in suboptim ally fashion without oral and IV contrast. A dose lowering technique was utilized adhering to the guerline diannaples of ANAIS. CT DOSE: 684.33 mGy.cm FINDINGS: Lung bases: The heart is enlarged noting trace pericardial effusion. There is diminished attenuation of the cardiac blood pool as compared to the myocardium suggesting anemia. The coronary arteries are densely calcified. Aneurysmal dilatation of the ascending thoracic aorta is partially visualized. Thi s measures up to 4.8 cm in diameter. The lung bases are clear noting bibasilar scarring/atelectasis. Liver: The unenhanced liver is normal in size, contour, and attenuation. There is mild intra and extr ahepatic biliary ductal dilatation, which is similar to previous. Gallbladder: Surgically absent. Spleen: Normal in size and attenuation. Pancreas: The unenhanced pancreas is moderately atrophic and grossly unremarkable. Adrenal glands: Unremarkable. Kidneys: The unenhanced kidneys demonstrate cortical atrophy and are without hydronephrosis. No renal calculi are identified. A 2.6 cm cyst is again seen in the right lower pole. Abdominal vasculature: The abdominal aorta is normal in course and caliber noting moderate atheroscle rotic calcification. Stomach and bowel: Postoperative changes noted in the stomach suggesting a Sebastian-en-Y gastric bypass p rocedure. No bowel obstruction is seen. Liquid stool seen throughout the right colon and there are fl uid-filled loops of small bowel. No significant bowel wall thickening is seen. Bowel loops protrude i nto a ventral hernia in the upper abdomen. The appendix is not visualized. Peritoneum: There is no intraperitoneal free air or abdominal ascites. Lymphadenopathy: None. Pelvic viscera: The bladder wall appears mildly thickened. The uterus is surgically absent. No adnexa l lesion is seen. The diverticular abscess in the left pelvis seen on 10/09/2022 has resolved. Skeletal structures: The skeletal structures are osteopenic. There is moderate lumbosacral spondylosi s and scoliosis. Degenerative sclerosis is noted in the sacroiliac joints. No lytic or blastic lesion s are seen. IMPRESSION: 1. Suboptimal examination without oral and IV contrast. 2. There is liquid stool in the right colon, as well as fluid-filled loops of small bowel. No bowel o bstruction is identified. Correlate clinically for evidence of a nonspecific enterocolitis. 3. The bladder wall is mildly thickened. Correlate with clinical findings and urinalysis. 3. Cardiomegaly. Aneurysmal dilatation of the ascending thoracic aorta is partially visualized and wa s better assessed on the 02/06/[address] 4. Additional findings as above. ACT 112: Negative or not required by law. Electronically signed by: Julian Sibley M.D. 12/10/2022 4:58 PM
[2022-12-10 18:04] LABS: INR 3.8 (0.9-1.1); Prothrombin Time 38.2 Seconds (9.0-12.0)
[2022-12-10] MEDS ORDERED: ALUMINUM/MAGNESIUM SUSP 30 ML UDC PO PRN (21:08)
[2022-12-10] MEDS ORDERED: ACETAMINOPHEN 325 MG TAB PO PRN (21:08)
[2022-12-10] MEDS ORDERED: MAGNESIUM HYDROXIDE SUSP 30 ML UDC PO PRN (21:08)
[2022-12-10] MEDS ORDERED: POLYETHYLENE (MIRALAX) 17 GM PACK PO PRN (21:08)
[2022-12-10] MEDS: MIDODRINE HCL 2.5 MG TAB PO SCH (21:41)
[2022-12-10] MEDS: MIRTAZAPINE TAB 15 MG TAB PO SCH (21:42)
[2022-12-10] MEDS: MONTELUKAST SODIUM 10 MG TABLET PO SCH (21:53)
[2022-12-10] MEDS: CARBIDOPA/LEVODOPA 25/100MG TAB PO SCH (21:53)
[2022-12-10] MEDS: rOPINIRole HCL 1 MG TABLET PO SCH (21:53)
[2022-12-10] MEDS: SACCHAROMYCES BOULARDII 250 MG CAP PO SCH (21:53)
[2022-12-11] MEDS ORDERED: CEFEPIME 2,000 MG in SYRINGE 0 ML IV SCH (04:00)
[2022-12-11] MEDS: LEVOTHYROXINE SODIUM 50 MCG TABLET PO SCH (06:01)
[2022-12-11 06:17] LABS: A calco-baum cmplx NotReported Not Detected (NotDetected); Bact fragilis Not Reported Not Detected (NotDetected); C auris Not Reported Not Detected (NotDetected); CTX-M Resistant Gene DETECTED (NotDetected); Calbicans Not Reported Not Detected (NotDetected); Candida glabrata Not Reported Not Detected (NotDetected); Candida krusei Not Reported Not Detected (NotDetected); Cneoformans/gatti Not Reported Not Detected (NotDetected); Cparapsilosis Not Reported Not Detected (NotDetected); Ctropicalis Not Reported Not Detected (NotDetected); E cloacae compx Not Reported Not Detected (NotDetected); Efaecalis Not Reported Not Detected (NotDetected); Efaecium Not Reported Not Detected (NotDetected); Enterobacterales DETECTED (NotDetected); Enterobacterales Not Reported DETECTED (NotDetected); Escherichia coli Not Reported DETECTED (NotDetected); H influenzae Not Reported Not Detected (NotDetected); IMP Resistant Gene Not Detected (NotDetected); K aerogenes Not Reported Not Detected (NotDetected); KPC Resistant Gene Not Detected (NotDetected); Koxytoca Not Reported Not Detected (NotDetected); Kpneumoniae grp Not Reported Not Detected (NotDetected); Lmonocyt Not Reported Not Detected (NotDetected); N meningitidis Not Reported Not Detected (NotDetected); NDM Resistant Gene Not Detected (NotDetected); OXA 48 Like Resistant Gene Not Detected (NotDetected); P aeruginosa Not Reported Not Detected (NotDetected); Proteus spp Not Reported Not Detected (NotDetected); Salmonella spp Not Reported Not Detected (NotDetected); Smarcescens Not Reported Not Detected (NotDetected); Staph lugdunensis Not Reported Not Detected (NotDetected); Staph spp. Not Reported Not Detected (NotDetected); Staphaureus Not Reported Not Detected (NotDetected); Staphepi Not Reported Not Detected (NotDetected); Stenmaltophilia Not Reported Not Detected (NotDetected); Strep agal(GrpB) Not Reported Not Detected (NotDetected); Strep pneum Not Reported Not Detected (NotDetected); Strep pyog (GrpA) Not Reported Not Detected (NotDetected); Strep spp Not Reported Not Detected (NotDetected); VIM Resistant Gene Not Detected (NotDetected); mcr-1 Colistin Resistant Gene Not Detected (NotDetected)
[2022-12-11 07:07] LABS: Basophils # (auto) 0.03 K/uL (0-0.2); Basophils % (auto) 0.4 %; Eosinophils # (auto) 0.01 K/uL (0-0.50); Eosinophils % (auto) 0.1 %; Hematocrit (blood only) 27.4 % (37.0-47.0); Hemoglobin 8.8 g/dl (12.0-16.0); Immature Granulocytes # (auto) 0.03 K/uL (0.01-0.20); Immature Granulocytes % (auto) 0.4 %; Lymphocytes # (auto) 0.37 K/uL (1.2-3.4); Lymphocytes % (auto) 5.1 %; Mean Corpuscular Hemoglobin 28.3 pg (25.0-34.0); Mean Corpuscular Hgb Conc 32.1 g/dL (32.0-36.0); Mean Corpuscular Volume 88.1 fL (80.0-100.0); Mean Platelet Volume 11.1 fL (9.4-12.4); Monocytes # (auto) 0.52 K/uL (0.11-0.59); Monocytes % (auto) 7.2 %; Neutrophils # (auto) 6.23 K/uL (1.40-6.50); Neutrophils % (auto) 86.8 %; Platelet Count 191 K/uL (130-400); RDW Coefficient of Variation 18.6 % (11.5-14.5); RDW Standard Deviation 58.8 fL (36.4-46.3); Red Blood Count 3.11 M/uL (4.20-5.40); White Blood Count 7.19 K/ul (4.8-10.8)
[2022-12-11 07:21] LABS: Anion Gap 7 (3-11); BUN Creatinine Ratio 28.8 (10-20); Blood Urea Nitrogen 23 mg/dl (6-23); Calcium 8.4 mg/dl (8.6-10.3); Carbon Dioxide 23 mmol/L (21-32); Chloride 105 mmol/L (98-107); Creatinine Clr Calc Pharmacy 55.9 ml/min; Est GFR (African American) 85.4 ml/min; Est GFR (Non-African American) 73.7 ml/min; Glucose 117 mg/dl (70-99(Fasting)); Potassium 3.9 mmol/L (3.5-5.1); Sodium 135 mmol/L (136-145)
[2022-12-11 07:26] LABS: Alanine Aminotransferase < 3 U/L (7-52); Albumin Globulin Ratio 1.1 (0.9-2); Albumin Level 2.9 gm/dl (3.4-5.0); Alkaline Phosphatase 115 U/L (34-104); Aspartate Aminotransferase 17 U/L (13-39); Bilirubin,Total 0.3 mg/dl (0.2-1.0); Globulin 2.6 gm/dl (2.5-4.0); Magnesium 1.7 mg/dl (1.7-2.4); Total Protein 5.5 gm/dl (6.0-8.3)
[2022-12-11] MEDS: PANTOprazole 40 MG TAB PO SCH (07:31)
[2022-12-11] MEDS: rOPINIRole HCL 1 MG TABLET PO SCH ×3 (07:32→20:39)
[2022-12-11] MEDS: MIDODRINE HCL 2.5 MG TAB PO SCH ×3 (07:32→20:29)
[2022-12-11] MEDS: FLUTICASONE PROPIONATE NA SPR 16 GM BTL SCH (07:34)
[2022-12-11] MEDS: CARBIDOPA/LEVODOPA 25/100MG TAB PO SCH ×3 (07:35→20:39)
[2022-12-11 07:36] LABS: Prothrombin Time 55.5 Seconds (9.0-12.0)
[2022-12-11] MEDS: SACCHAROMYCES BOULARDII 250 MG CAP PO SCH ×2 (07:37→20:39)
[2022-12-11] MEDS: LIDOCAINE 5% 1 PATCH TD SCH (07:38)
[2022-12-11] MEDS: ATORVASTATIN 20 MG TAB PO SCH (07:38)
[2022-12-11] MEDS: METOPROLOL TARTRATE 25 MG TAB PO SCH (07:38)
[2022-12-11] MEDS: FLUTICASONE/VILANTEROL 100/25MCG 14 PUFFS/INHALER INH SCH (07:38)
[2022-12-11 07:45] LABS: INR 5.7 (0.9-1.1)
[2022-12-11] MEDS ORDERED: BUPRENORPHINE 5 MCG/HR TDSY TD SCH (09:00)
[2022-12-11] MEDS ORDERED: POTASSIUM CHLORIDE CRTAB 20 MEQ TABCR PO SCH ×2 (09:00→16:30)
[2022-12-11] MEDS: ERTAPENEM SODIUM 1,000 MG in SYRINGE 0 ML IV SCH (10:57)
[2022-12-11] MEDS: POTASSIUM CHLORIDE CRTAB 20 MEQ TABCR PO SCH (10:58)
[2022-12-11] MEDS: LINACLOTIDE 145 MCG CAPSULE PO SCH (13:10)
[2022-12-11] MEDS: ACETAMINOPHEN 500 MG TAB PO SCH (13:13)
--- NOTE | 2022-12-11 14:57 | Hospitalist Progress Note ---
Date of Service December 11, 2022 Assessment & Plan (1) Acute UTI (urinary tract infection): Plan Patient is a 72 yr female with H/O Chronic diastolic CHF, history of PSVT, HTN, thoracic aortic aneurysm, Edenilson-Danlos syndrome, secondary hyperparathyroidism, hypothyroidism, hyperlipidemia, BRANDIE on CPAP, asthma, vitamin D deficiency, GERD, history of diverticulitis with colon perforation, RLS, fibromyalgia, chronic pain syndrome, hypercoagulability, history of gastric bypass, depression, history of PTSD, history of PE who presents to ED secondary to Urinary symptoms. Acute UTI Possible gram-negative sepsis/Bacteremia Blood/Urine Cx: Gram-negative bacilli Enterocolitis --CT ABD:Suboptimal examination without oral and IV contrast. There is liquid stool in the right colon, as well as fluid-filled loops of small bowel. No bowel obstruction is identified. Correlate clinically for evidence of a nonspecific enterocolitis. The bladder wall is mildly thickened. Correlate with clinical findings and urinalysis. Cardiomegaly. Aneurysmal dilatation of the ascending thoracic aorta is partially visualized and was better assessed on the 02/06/[address] -- Empirically started on IV ertapenem Follow-up cultures Stool studies pending Received IV fluids We will adjust antibiotics based on cultures Consider ID if needed Hx of PE/DVT Hypercoagulable state Supratherapeutic INR INR 5.7 today No acute bleeding issues Continue to hold Coumadin POTS/Chronic low blood pressure continue midodrine Chronic Pain Ehler Danlos syndrome continue buprenorphine patch/oxy, lidocaine Hx of Parkinson RLS continue Requip, Sinemet walks with rollator PT/OT as able Chronic Anemia Hb at baseline receives iron infusion with Mag/Dr. Turner Monitr CBC Chronic lower extremity edema 2/2 lymphedema Chronic Diastolic HF Chronic lymphedema edema at baseline Resume Lasix as able Chronic R shoulder dislocation continue pain meds Poor surgical candidate Hypothyroidism continue levothyroxine DVT Px: warfarin-Held Supratherapeutic INR Code Status Full Code Admission and Anticipated Discharge Date Admission Date: December 10, 2022 Subjective Patient is seen and examined at bedside States having fever associated with chills, feels tired Also had 1 loose bowel movement today Also reports bilateral leg discomfort which she attributes to infection Denies any chest pain, dyspnea, dizziness, nausea, abdominal pain No other complaints Review of Systems Review of Systems: All systems reviewed & are unremarkable except as noted in Subjective Physical Exam Physical Exam: Physical Exam: Vitals signs as noted above General Appearance:Moderately built and nourished, Chronic ill appearing, Frail, no apparent distress Head: normocephalic, Atraumatic Eyes: normal inspection, EOMI Neck: supple, Trachea midline Respiratory/Chest: Normal breath sounds, CTA, No accessory muscle use Cardiovascular: S1, S2, + murmur Abdomen/GI:Soft, Non tender, Bowel sounds present Extremities/Musculoskeletal:normal inspection, B/L LE Lymphedema Neurologic/Psych:AAOX3, grossly no focal neurological deficits Skin: normal color, warm Results & Data Results & Data Vital Signs (Past 12 Hours) Vital Signs Temp Pulse Resp BP Pulse Ox O2 Del Method O2 Flow Rate 12/11/22 07:24 37.8 C H 80 20 95/61 L 97 Nasal Cannula 2 12/11/22 06:03 37.6 C Laboratory Results Short CBC 12/10/22 12/11/22 Range/Units 14:57 06:14 WBC 7.19 (4.8-10.8) K/ul Hgb 9.3 L D 8.8 L (12.0-16.0) g/dl Hct 29.1 L 27.4 L (37.0-47.0) % Plt Count 191 (130-400) K/uL BMP 12/10/22 12/11/22 14:57 06:14 Sodium 135 L Potassium 4.1 3.9 Chloride 105 Carbon Dioxide 23 BUN 23 Creatinine 0.80 Glucose 117 H Calcium 8.4 L Liver Function 12/10/22 12/11/22 Range/Units 14:57 06:14 Total Bilirubin 0.3 (0.2-1.0) mg/dl Direct Bilirubin 0.0 (0-0.2) mg/dl AST 16 17 (13-39) U/L ALT < 3 L (7-52) U/L Alkaline Phosphatase 115 H (34-104) U/L Albumin 2.9 L (3.4-5.0) gm/dl Urine 12/10/22 Range/Units 14:27 Urine Color [place] Urine Appearance Cloudy A (Clear) Urine pH 5.5 (4.5-7.5) Ur Specific [place] 1.009 (1.000-1.030) Urine Protein Negative (Negative) Urine Glucose (UA) Negative (Negative)
[2022-12-11] MEDS: MIRTAZAPINE TAB 15 MG TAB PO SCH (20:38)
[2022-12-11] MEDS: MONTELUKAST SODIUM 10 MG TABLET PO SCH (20:40)
[2022-12-12] MEDS: oxyCODONE/ACETAMINOPHEN 5mg/325mg TAB PO PRN (05:18)
--- NOTE | 2022-12-12 05:45 | Electrocardiogram Report ---
Test Reason : Blood Pressure : / mmHG Vent. Rate : 072 BPM Atrial Rate : 072 BPM P-R Int : 178 ms QRS Dur : 100 ms QT Int : 382 ms P-R-T Axes : 043 -19 027 degrees QTc Int : 418 ms Normal sinus rhythm Possible Left atrial enlargement Minimal voltage criteria for LVH, may be normal variant Borderline ECG When compared with ECG of 05-OCT-2022 11:36, No significant change was found Confirmed by Alexey Jennings ([id number]) on 12/12/2022 5:44:53 AM Referred By: [facility] Confirmed By:Alexey Jennings
[2022-12-12] MEDS: LEVOTHYROXINE SODIUM 50 MCG TABLET PO SCH (06:18)
[2022-12-12 06:51] LABS: BUN Creatinine Ratio 23.6 (10-20); Calcium 8.4 mg/dl (8.6-10.3); Creatinine Clr Calc Pharmacy 62.7 ml/min; Est GFR (Non-African American) 83.7 ml/min; Magnesium 1.8 mg/dl (1.7-2.4); Potassium 4.2 mmol/L (3.5-5.1)
[2022-12-12 07:14] LABS: INR 3.8 (0.9-1.1); Prothrombin Time 38.5 Seconds (9.0-12.0)
[2022-12-12 07:34] LABS: Hematocrit (blood only) 28.6 % (37.0-47.0); Hemoglobin 9.1 g/dl (12.0-16.0); Mean Corpuscular Hemoglobin 27.7 pg (25.0-34.0); Mean Corpuscular Hgb Conc 31.8 g/dL (32.0-36.0); Mean Corpuscular Volume 87.2 fL (80.0-100.0); Platelet Count 226 K/uL (130-400); RDW Coefficient of Variation 18.4 % (11.5-14.5); RDW Standard Deviation 58.7 fL (36.4-46.3); Red Blood Count 3.28 M/uL (4.20-5.40); White Blood Count 5.65 K/ul (4.8-10.8)
[2022-12-12] MEDS: ATORVASTATIN 20 MG TAB PO SCH (08:54)
[2022-12-12] MEDS: MIDODRINE HCL 2.5 MG TAB PO SCH ×3 (08:55→16:37)
[2022-12-12] MEDS: PANTOprazole 40 MG TAB PO SCH (08:55)
[2022-12-12] MEDS: POTASSIUM CHLORIDE CRTAB 20 MEQ TABCR PO SCH (08:56)
[2022-12-12] MEDS: SACCHAROMYCES BOULARDII 250 MG CAP PO SCH ×2 (08:57→20:03)
[2022-12-12] MEDS: rOPINIRole HCL 1 MG TABLET PO SCH ×3 (08:57→20:04)
[2022-12-12] MEDS: LIDOCAINE 5% 1 PATCH TD SCH ×2 (08:58→09:03)
[2022-12-12] MEDS: CARBIDOPA/LEVODOPA 25/100MG TAB PO SCH ×3 (08:59→20:03)
[2022-12-12] MEDS ORDERED: ERGOCALCIFEROL 50,000 UNITS 1250 MCG CAP PO SCH (09:00)
[2022-12-12] MEDS: METOPROLOL TARTRATE 25 MG TAB PO SCH (09:00)
[2022-12-12] MEDS: FLUTICASONE/VILANTEROL 100/25MCG 14 PUFFS/INHALER INH SCH (09:00)
[2022-12-12] MEDS: FLUTICASONE PROPIONATE NA SPR 16 GM BTL SCH (09:01)
[2022-12-12] MEDS: ERTAPENEM SODIUM 1,000 MG in SYRINGE 0 ML IV SCH (09:28)
[2022-12-12] MEDS: ACETAMINOPHEN 500 MG TAB PO SCH (12:47)
[2022-12-12] MEDS: LINACLOTIDE 145 MCG CAPSULE PO SCH (12:48)
--- NOTE | 2022-12-12 13:54 | Hospitalist Progress Note ---
Date of Service December 12, 2022 Assessment & Plan (1) Acute UTI (urinary tract infection): Plan This is a 72-year-old female who has significant past medical history of chronic diastolic CHF, history of PSVT, HTN, thoracic aortic aneurysm, Edenilson-Danlos syndrome, secondary hyperparathyroidism, hypothyroidism, hyperlipidemia, BRANDIE on CPAP, asthma, vitamin D deficiency, GERD, history of diverticulitis with colon perforation, RLS, fibromyalgia, chronic pain syndrome, hypercoagulability, history of gastric bypass, depression, history of PTSD, history of PE who presents to ED secondary to Urinary symptoms. Acute UTI Dysuria admit to PCU pt presented with hypotension, although at baseline pt BP in 90s systolic. She also had mildly elevated temp. Technically she does not meet criteria for Sepsis. but early sepsis is probable received IV Dapto/Cefepime in ED will continue with IV cefepime for likely urine source, await urine/blood culture CT a/p reviewed - previous diverticular abscess resolved, ? enterocolitis; however pt is having no abd pain and formed stool, monitor Received 2L in a.m Antibiotic was changed to intravenous ertapenem from 12/11/2022 Urine culture is growing E. coli ESBL-sensitive to quinolones, gentamicin Zosyn sulfa and current ertapenem 1 out of 2 blood culture is positive for gram-negative ESBL ID consultation will be taken for further recommendation about antibiotic and duration She has been feeling a little better Hx of PE/DVT Hypercoagulable state Supratherapeutic INR hold warfarin INR 3.8 repeat INR In a.m. home dose is 2mg MWF and 4mg all other days INR remains minimally elevated at 3.8 and will be monitored POTS/Chronic low blood pressure continue midodrine Chronic Pain Ehler Danlos syndrome continue buprenorphine patch/oxy, lidocaine pdmp checked Pain seems to be controlled Hx of Parkinson RLS continue requip, sinemet walks with rollator, will consult PT/OT Chronic Anemia hgb stable at 9.3 receives iron infusion with Heme/Dr. Turner Chronic lower extremity edema 2/2 lymphedema Chronic Diastolic HF pt with chronic edema, at baseline, chronic erythema no cellulitis hold lasix for now, re eval in a.m. to resume if pressures allow Blood pressure remains low at 107/77 Chronic R shoulder dislocation continue pain meds wishing for replacement, but states currently not a candidate Hypothyroidism continue levothyroxine DVT ppx: warfarin Dispo: PCU FULL CODE PCP: Alla Agee Admission and Anticipated Discharge Date Admission Date: December 10, 2022 Subjective 12/12/2022 The patient was seen and examined in telemetry unit She remains weak and lethargic but denies any significant pain No abdominal discomfort, no dysuria and no fever and or chills Review of Systems Review of Systems: All systems reviewed and are unremarkable except as noted below Physical Exam Physical Exam: Sitting on a chair without any acute distress Constitutional: + ill appearing and + thin Eyes: PERRL, conjunctivae normal, anicteric sclerae ENMT: external ear and nose normal, oropharynx normal Neck: trachea midline, no thyromegaly Respiratory: no respiratory distress Auscultation: lungs clear to auscultation bilaterally and + diminished lung sounds Cardiovascular: Rate/Rhythm: regular rate; not tachycardic Heart Sounds: normal S1, normal S2 and + murmur Extremities: no edema Gastrointestinal (Abdomen): Inspection/Auscultation: normal bowel sounds; abdomen not distended Percussion/Palpation: abdomen soft; abdomen nontender Musculoskeletal: No acute arthritis involving any joint Neurologic: normal touch/pain/proprioception and moves all extremities; no focal motor deficits Generally weak and lethargic Lymphatic: no cervical or axillary lymphadenopathy Results & Data Results & Data Vital Signs (Past 12 Hours) Vital Signs Temp Pulse Pulse Resp BP Pulse Ox O2 Del Method 12/12/22 11:44 36.6 C 65 19 107/77 97 Nasal Cannula 12/12/22 09:23 84 12/12/22 07:58 37.2 C 80 19 118/73 90 Room Air 12/12/22 02:00 37.4 C 75 13 114/75 97 Room Air O2 Flow Rate 12/12/22 11:44 2 12/12/22 09:23 12/12/22 07:58 12/12/22 02:00 Laboratory Results Short CBC 12/12/22 Range/Units 05:46 WBC 5.65 (4.8-10.8) K/ul Hgb 9.1 L (12.0-16.0) g/dl Hct 28.6 L (37.0-47.0) % Plt Count 226 (130-400) K/uL BMP 12/12/22 05:46 Sodium 139 Potassium 4.2 Chloride 103 Carbon Dioxide 25 BUN 17 Creatinine 0.72 Glucose 90 Calcium 8.4 L Medications Administered Current Inpatient Medications Acetaminophen (Acetaminophen 325 Mg Tab) 650 mg PO Q4H PRN PRN Reason: Pain or Fever Stop: 01/09/23 21:07 Last Admin: 12/11/22 07:41 Dose: 650 mg Acetaminophen (Acetaminophen 500 Mg Tab) 1,000 mg PO QDL [facility] Stop: 01/10/23 11:29 Last Admin: 12/12/22 12:47 Dose: 1,000 mg Al Hydrox/Mg Hydrox/Simethicone (Aluminum/Magnesium Susp 30 Ml Udc) 15 ml PO Q4H PRN PRN Reason: Dyspepsia Stop: 01/09/23 21:07 Atorvastatin Calcium (Atorvastatin 20 Mg Tab) 20 mg PO QAM [facility] Stop: 01/10/23 08:59 Last Admin: 12/12/22 08:54 Dose: 20 mg Buprenorphine HCl (Buprenorphine 5 Mcg/Hr Tdsy) 15 mcg TD Tu@0900 [facility] Stop: 01/10/23 08:59 Last Admin: 12/11/22 10:52 Dose: 15 mcg Carbidopa/Levodopa (Carbidopa/Levodopa 25/100mg Tab) 1 tab PO TID@0800,1200,2000 [facility] Stop: 01/09/23 21:07 Last Admin: 12/12/22 12:48 Dose: 1 tab Ergocalciferol (Ergocalciferol 50,000 Units 1250 Mcg Cap) 50,000 units PO We@0900 [facility] Stop: 01/11/23 08:59 Last Admin: 12/12/22 09:44 Dose: 50,000 units Fluticasone Propionate (Fluticasone Propionate Na Spr 16 Gm Btl) 2 sprays NA DAILY [facility] Stop: 01/10/23 08:59 Last Admin: 12/12/22 09:01 Dose: 2 sprays Fluticasone/Vilanterol (Fluticasone/Vilanterol 100/25mcg 14 Puffs/Inhaler) 1 puffs INH DAILY [facility]; Protocol Stop: 01/10/23 08:59 Last Admin: 12/12/22 09:00 Dose: 1 puffs Hydroxyzine HCl (Hydroxyzine Hcl 25 Mg Tab) 25 mg PO Q6 PRN PRN Reason: ANXIETY/ITCHING Stop: 01/09/23 21:07 Ertapenem 1,000 mg/ Syringe 10 mls @ 2 mls/min IV Q24H [facility] Stop: 12/25/22 07:59 Last Admin: 12/12/22 09:28 Dose: 2 mls/min Levothyroxine Sodium (Levothyroxine Sodium 50 Mcg Tablet) 50 mcg PO DAILYBB [facility] Stop: 01/10/23 06:29 Last Admin: 12/12/22 06:18 Dose: 50 mcg Lidocaine (Lidocaine 5% 1 Patch) 2 patch TD DAILY@0800 [facility] Stop: 01/10/23 07:59 Last Admin: 12/12/22 09:03 Dose: 2 patch Linaclotide (Linaclotide 145 Mcg Capsule) 290 mcg PO QDL [facility] Stop: 01/10/23 11:29 Last Admin: 12/12/22 12:48 Dose: Not Given Magnesium Hydroxide (Magnesium Hydroxide Susp 30 Ml Udc) 30 ml PO Q12H PRN PRN Reason: Constipation Stop: 01/09/23 21:07 Metoprolol Tartrate (Metoprolol Tartrate 25 Mg Tab) 12.5 mg PO DAILY [facility] Stop: 01/10/23 08:59 Last Admin: 12/12/22 09:00 Dose: 12.5 mg Midodrine (Midodrine Hcl 2.5 Mg Tab) 2.5 mg PO TID@0800,1200,1700 [facility] Stop: 01/09/23 21:07 Last Admin: 12/12/22 12:49 Dose: 2.5 mg Mirtazapine (Mirtazapine Tab 15 Mg Tab) 30 mg PO HS [facility] Stop: 01/09/23 21:07 Last Admin: 12/11/22 20:38 Dose: 30 mg Miscellaneous (Remove & Waste Butrans Patch 1 Ea Ea) 1 each N/A Tu@0857,0 858,0859 [facility] Stop: 01/17/23 08:56 Montelukast Sodium (Montelukast Sodium 10 Mg Tablet) 10 mg PO HS [facility] Stop: 01/09/23 21:07 Last Admin: 12/11/22 20:40 Dose: 10 mg Ondansetron HCl (Ondansetron Inj 2 Mg/Ml 2 Ml Vial) 4 mg IV Q6H PRN PRN Reason: Nausea Stop: 01/09/23 21:07 Oxycodone/Acetaminophen (Oxycodone/Acetaminophen 5mg/325mg Tab) 1 tab PO Q8H PRN PRN Reason: Pain (Scale Score 4-10) Stop: 12/24/22 21:07 Last Admin: 12/12/22 05:18 Dose: 1 tab Pantoprazole Sodium (Pantoprazole 40 Mg Tab) 40 mg PO DAILY [facility]; Protocol Stop: 01/10/23 08:59 Last Admin: 12/12/22 08:55 Dose: 40 mg Polyethylene Glycol (Polyethylene (Miralax) 17 Gm Pack) 17 gm PO DAILY PRN PRN Reason: Constipation Stop: 01/09/23 21:07 Potassium Chloride (Potassium Chloride Crtab 20 Meq Tabcr) 20 meq PO QDD [facility] Stop: 01/10/23 16:29 Potassium Chloride (Potassium Chloride Crtab 20 Meq Tabcr) 20 meq PO DAILY [facility] Stop: 01/10/23 08:59 Last Admin: 12/12/22 08:56 Dose: 20 meq Ropinirole HCl (Ropinirole Hcl 1 Mg Tablet) 3 mg PO TID@0800,1500,2000 [facility] Stop: 01/09/23 21:07 Last Admin: 12/12/22 08:57 Dose: 3 mg Saccharomyces Boulardii (Saccharomyces Boulardii 250 Mg Cap) 250 mg PO BID [facility] Stop: 01/09/23 21:07 Last Admin: 12/12/22 08:57 Dose: 250 mg
[2022-12-12] MEDS: MONTELUKAST SODIUM 10 MG TABLET PO SCH (20:03)
[2022-12-12] MEDS: MIRTAZAPINE TAB 15 MG TAB PO SCH (20:03)
[2022-12-13] MEDS: LEVOTHYROXINE SODIUM 50 MCG TABLET PO SCH (06:13)
[2022-12-13 06:50] LABS: Basophils # (auto) 0.04 K/uL (0-0.2); Basophils % (auto) 0.7 %; Eosinophils # (auto) 0.19 K/uL (0-0.50); Eosinophils % (auto) 3.4 %; Hematocrit (blood only) 28.3 % (37.0-47.0); Hemoglobin 8.8 g/dl (12.0-16.0); Immature Granulocytes # (auto) 0.02 K/uL (0.01-0.20); Immature Granulocytes % (auto) 0.4 %; Lymphocytes # (auto) 0.84 K/uL (1.2-3.4); Lymphocytes % (auto) 15.2 %; Mean Corpuscular Hemoglobin 27.8 pg (25.0-34.0); Mean Corpuscular Hgb Conc 31.1 g/dL (32.0-36.0); Mean Corpuscular Volume 89.6 fL (80.0-100.0); Mean Platelet Volume 10.7 fL (9.4-12.4); Monocytes # (auto) 0.67 K/uL (0.11-0.59); Monocytes % (auto) 12.1 %; Neutrophils # (auto) 3.76 K/uL (1.40-6.50); Neutrophils % (auto) 68.2 %; Platelet Count 238 K/uL (130-400); RDW Coefficient of Variation 18.1 % (11.5-14.5); RDW Standard Deviation 59.7 fL (36.4-46.3); Red Blood Count 3.16 M/uL (4.20-5.40); White Blood Count 5.52 K/ul (4.8-10.8)
[2022-12-13 07:21] LABS: INR 2.2 (0.9-1.1); Prothrombin Time 22.8 Seconds (9.0-12.0)
[2022-12-13 08:48] LABS: Calcium 8.4 mg/dl (8.6-10.3); Magnesium 1.7 mg/dl (1.7-2.4); Potassium 4.1 mmol/L (3.5-5.1)
[2022-12-13 08:54] LABS: BUN Creatinine Ratio 25.8 (10-20); Est GFR (African American) 104.4 ml/min; Est GFR (Non-African American) 90.1 ml/min
[2022-12-13] MEDS: FLUTICASONE PROPIONATE NA SPR 16 GM BTL SCH (09:10)
[2022-12-13] MEDS: FLUTICASONE/VILANTEROL 100/25MCG 14 PUFFS/INHALER INH SCH (09:11)
[2022-12-13] MEDS: LIDOCAINE 5% 1 PATCH TD SCH (09:11)
[2022-12-13] MEDS: rOPINIRole HCL 1 MG TABLET PO SCH ×3 (09:12→20:22)
[2022-12-13] MEDS: SACCHAROMYCES BOULARDII 250 MG CAP PO SCH ×2 (09:13→20:22)
[2022-12-13] MEDS: CARBIDOPA/LEVODOPA 25/100MG TAB PO SCH ×3 (09:13→20:22)
[2022-12-13] MEDS: MIDODRINE HCL 2.5 MG TAB PO SCH ×3 (09:13→15:58)
[2022-12-13] MEDS: PANTOprazole 40 MG TAB PO SCH (09:13)
[2022-12-13] MEDS: METOPROLOL TARTRATE 25 MG TAB PO SCH (09:13)
[2022-12-13] MEDS: ATORVASTATIN 20 MG TAB PO SCH (09:14)
[2022-12-13] MEDS: POTASSIUM CHLORIDE CRTAB 20 MEQ TABCR PO SCH (09:14)
[2022-12-13] MEDS: ERTAPENEM SODIUM 1,000 MG in SYRINGE 0 ML IV SCH (09:16)
[2022-12-13] MEDS: oxyCODONE/ACETAMINOPHEN 5mg/325mg TAB PO PRN ×2 (09:23→20:31)
[2022-12-13] MEDS: LINACLOTIDE 145 MCG CAPSULE PO SCH (12:05)
[2022-12-13] MEDS: ACETAMINOPHEN 500 MG TAB PO SCH (12:05)
--- NOTE | 2022-12-13 15:17 | Hospitalist Progress Note ---
Date of Service December 13, 2022 Assessment & Plan (1) Acute UTI (urinary tract infection): Plan Weakness This is a 72-year-old female who has significant past medical history of chronic diastolic CHF, history of PSVT, HTN, thoracic aortic aneurysm, Edenilson-Danlos syndrome, secondary hyperparathyroidism, hypothyroidism, hyperlipidemia, BRANDIE on CPAP, asthma, vitamin D deficiency, GERD, history of diverticulitis with colon perforation, RLS, fibromyalgia, chronic pain syndrome, hypercoagulability, history of gastric bypass, depression, history of PTSD, history of PE who presents to ED secondary to Urinary symptoms. Acute UTI Dysuria admit to PCU pt presented with hypotension, although at baseline pt BP in 90s systolic. She also had mildly elevated temp. Technically she does not meet criteria for Sepsis. but early sepsis is probable received IV Dapto/Cefepime in ED will continue with IV cefepime for likely urine source, await urine/blood culture CT a/p reviewed - previous diverticular abscess resolved, ? enterocolitis; however pt is having no abd pain and formed stool, monitor Received 2L in a.m Antibiotic was changed to intravenous ertapenem from 12/11/2022 Urine culture is growing E. coli ESBL-sensitive to quinolones, gentamicin Zosyn sulfa and current ertapenem 1 out of 2 blood culture is positive for gram-negative ESBL Remains stable with tiredness without any other acute symptoms Awaiting ID recommendation Hx of PE/DVT Hypercoagulable state Supratherapeutic INR hold warfarin INR 3.8 repeat INR In a.m. home dose is 2mg MWF and 4mg all other days INR remains minimally elevated at 3.8 and will be monitored INR has been therapeutic at 2.2-we will restart anticoagulation POTS/Chronic low blood pressure continue midodrine Advised to drink more fluid Chronic Pain Ehler Danlos syndrome continue buprenorphine patch/oxy, lidocaine pdmp checked Pain seems to be controlled Hx of Parkinson RLS continue requip, sinemet walks with rollator, will consult PT/OT Will need placement Chronic Anemia hgb stable at 9.3 receives iron infusion with Heme/Dr. Turner Chronic lower extremity edema 2/2 lymphedema Chronic Diastolic HF pt with chronic edema, at baseline, chronic erythema no cellulitis hold lasix for now, re eval in a.m. to resume if pressures allow Blood pressure remains low at 107/77 Chronic R shoulder dislocation continue pain meds wishing for replacement, but states currently not a candidate Hypothyroidism continue levothyroxine DVT ppx: warfarin Dispo: PCU FULL CODE PCP: Alla Agee Can return to [place] house following ID recommendation Admission and Anticipated Discharge Date Admission Date: December 10, 2022 Subjective 12/12/2022 The patient was seen and examined in telemetry unit She remains weak and lethargic but denies any significant pain No abdominal discomfort, no dysuria and no fever and or chills 12/13/2022 The patient was seen and examined in telemetry unit She has been feeling much better but remains generally weak and lethargic Blood pressure remains on the lower side without any symptoms Denies any fever and or chills, abdominal pain nausea or vomiting Review of Systems Review of Systems: All systems reviewed and are unremarkable except as noted below Physical Exam Physical Exam: Sitting on a chair without any acute distress Constitutional: + ill appearing and + thin Eyes: PERRL, conjunctivae normal, anicteric sclerae ENMT: external ear and nose normal, oropharynx normal Neck: trachea midline, no thyromegaly Respiratory: no respiratory distress Auscultation: lungs clear to auscultation bilaterally and + diminished lung sounds Cardiovascular: Rate/Rhythm: regular rate; not tachycardic Heart Sounds: normal S1, normal S2 and + murmur Extremities: no edema Gastrointestinal (Abdomen): Inspection/Auscultation: normal bowel sounds; abdomen not distended Percussion/Palpation: abdomen soft; abdomen nontender Musculoskeletal: No acute arthritis involving any of the joint Neurologic: normal touch/pain/proprioception and moves all extremities; no focal motor deficits Lymphatic: no cervical or axillary lymphadenopathy Results & Data Results & Data Vital Signs (Past 12 Hours) Vital Signs Temp Pulse Pulse Resp BP Pulse Ox Pulse Ox 12/13/22 12:00 95 12/13/22 11:00 37 C 12/13/22 11:18 36.5 C 59 L 20 80/49 L 95 12/13/22 07:00 71 12/13/22 07:54 36.5 C 79 18 108/74 95 O2 Del Method O2 Del Method 12/13/22 12:00 Room Air 12/13/22 11:00 12/13/22 11:18 Room Air 12/13/22 07:00 12/13/22 07:54 Room Air Laboratory Results Short CBC 12/13/22 Range/Units 05:55 WBC 5.52 (4.8-10.8) K/ul Hgb 8.8 L (12.0-16.0) g/dl Hct 28.3 L (37.0-47.0) % Plt Count 238 (130-400) K/uL BMP 12/13/22 05:55 Sodium 134 L Potassium 4.1 Chloride 105 Carbon Dioxide 23 BUN 16 Creatinine 0.62 Glucose 99 Calcium 8.4 L Medications Administered Current Inpatient Medications Acetaminophen (Acetaminophen 325 Mg Tab) 650 mg PO Q4H PRN PRN Reason: Pain or Fever Stop: 01/09/23 21:07 Last Admin: 12/11/22 07:41 Dose: 650 mg Acetaminophen (Acetaminophen 500 Mg Tab) 1,000 mg PO QDL [facility] Stop: 01/10/23 11:29 Last Admin: 12/13/22 12:05 Dose: 1,000 mg Al Hydrox/Mg Hydrox/Simethicone (Aluminum/Magnesium Susp 30 Ml Udc) 15 ml PO Q4H PRN PRN Reason: Dyspepsia Stop: 01/09/23 21:07 Atorvastatin Calcium (Atorvastatin 20 Mg Tab) 20 mg PO QAM [facility] Stop: 01/10/23 08:59 Last Admin: 12/13/22 09:14 Dose: 20 mg Buprenorphine HCl (Buprenorphine 5 Mcg/Hr Tdsy) 15 mcg TD Tu@0900 [facility] Stop: 01/10/23 08:59 Last Admin: 12/11/22 10:52 Dose: 15 mcg Carbidopa/Levodopa (Carbidopa/Levodopa 25/100mg Tab) 1 tab PO TID@0800,1200,2000 [facility] Stop: 01/09/23 21:07 Last Admin: 12/13/22 12:06 Dose: 1 tab Ergocalciferol (Ergocalciferol 50,000 Units 1250 Mcg Cap) 50,000 units PO We@0900 [facility] Stop: 01/11/23 08:59 Last Admin: 12/12/22 09:44 Dose: 50,000 units Fluticasone Propionate (Fluticasone Propionate Na Spr 16 Gm Btl) 2 sprays NA DAILY [facility] Stop: 01/10/23 08:59 Last Admin: 12/13/22 09:10 Dose: 2 sprays Fluticasone/Vilanterol (Fluticasone/Vilanterol 100/25mcg 14 Puffs/Inhaler) 1 puffs INH DAILY [facility]; Protocol Stop: 01/10/23 08:59 Last Admin: 12/13/22 09:11 Dose: 1 puffs Hydroxyzine HCl (Hydroxyzine Hcl 25 Mg Tab) 25 mg PO Q6 PRN PRN Reason: ANXIETY/ITCHING Stop: 01/09/23 21:07 Ertapenem 1,000 mg/ Syringe 10 mls @ 2 mls/min IV Q24H [facility] Stop: 12/25/22 07:59 Last Admin: 12/13/22 09:16 Dose: 2 mls/min Levothyroxine Sodium (Levothyroxine Sodium 50 Mcg Tablet) 50 mcg PO DAILYBB [facility] Stop: 01/10/23 06:29 Last Admin: 12/13/22 06:13 Dose: 50 mcg Lidocaine (Lidocaine 5% 1 Patch) 2 patch TD DAILY@0800 [facility] Stop: 01/10/23 07:59 Last Admin: 12/13/22 09:11 Dose: 2 patch Linaclotide (Linaclotide 145 Mcg Capsule) 290 mcg PO QDL [facility] Stop: 01/10/23 11:29 Last Admin: 12/13/22 12:05 Dose: 290 mcg Magnesium Hydroxide (Magnesium Hydroxide Susp 30 Ml Udc) 30 ml PO Q12H PRN PRN Reason: Constipation Stop: 01/09/23 21:07 Metoprolol Tartrate (Metoprolol Tartrate 25 Mg Tab) 12.5 mg PO DAILY [facility] Stop: 01/10/23 08:59 Last Admin: 12/13/22 09:13 Dose: 12.5 mg Midodrine (Midodrine Hcl 2.5 Mg Tab) 2.5 mg PO TID@0800,1200,1700 [facility] Stop: 01/09/23 21:07 Last Admin: 12/13/22 12:06 Dose: 2.5 mg Mirtazapine (Mirtazapine Tab 15 Mg Tab) 30 mg PO HS [facility] Stop: 01/09/23 21:07 Last Admin: 12/12/22 20:03 Dose: 30 mg Miscellaneous (Remove & Waste Butrans Patch 1 Ea Ea) 1 each N/A Tu@0857,08 58,0859 [facility] Stop: 01/17/23 08:56 Montelukast Sodium (Montelukast Sodium 10 Mg Tablet) 10 mg PO HS [facility] Stop: 01/09/23 21:07 Last Admin: 12/12/22 20:03 Dose: 10 mg Ondansetron HCl (Ondansetron Inj 2 Mg/Ml 2 Ml Vial) 4 mg IV Q6H PRN PRN Reason: Nausea Stop: 01/09/23 21:07 Oxycodone/Acetaminophen (Oxycodone/Acetaminophen 5mg/325mg Tab) 1 tab PO Q8H PRN PRN Reason: Pain (Scale Score 4-10) Stop: 12/24/22 21:07 Last Admin: 12/13/22 09:23 Dose: 1 tab Pantoprazole Sodium (Pantoprazole 40 Mg Tab) 40 mg PO DAILY [facility]; Protocol Stop: 01/10/23 08:59 Last Admin: 12/13/22 09:13 Dose: 40 mg Polyethylene Glycol (Polyethylene (Miralax) 17 Gm Pack) 17 gm PO DAILY PRN PRN Reason: Constipation Stop: 01/09/23 21:07 Potassium Chloride (Potassium Chloride Crtab 20 Meq Tabcr) 20 meq PO QDD [facility] Stop: 01/10/23 16:29 Potassium Chloride (Potassium Chloride Crtab 20 Meq Tabcr) 20 meq PO DAILY [facility] Stop: 01/10/23 08:59 Last Admin: 12/13/22 09:14 Dose: 20 meq Ropinirole HCl (Ropinirole Hcl 1 Mg Tablet) 3 mg PO TID@0800,1500,2000 [facility] Stop: 01/09/23 21:07 Last Admin: 12/13/22 09:12 Dose: 3 mg Saccharomyces Boulardii (Saccharomyces Boulardii 250 Mg Cap) 250 mg PO BID [facility] Stop: 01/09/23 21:07 Last Admin: 12/13/22 09:13 Dose: 250 mg
[2022-12-13] MEDS: ONDANSETRON INJ 2 MG/ML 2 ML VIAL IV PRN (15:56)
[2022-12-13] MEDS ORDERED: WARFARIN SOD 4 MG TAB PO SCH (17:00)
[2022-12-13] MEDS: MIRTAZAPINE TAB 15 MG TAB PO SCH (20:22)
[2022-12-13] MEDS: MONTELUKAST SODIUM 10 MG TABLET PO SCH (20:22)
[2022-12-13] MEDS: hydrOXYzine HCl 25 MG TAB PO PRN (20:36)
[2022-12-14] MEDS: LEVOTHYROXINE SODIUM 50 MCG TABLET PO SCH (06:13)
[2022-12-14 08:07] LABS: INR 1.5 (0.9-1.1); Prothrombin Time 15.9 Seconds (9.0-12.0)
[2022-12-14] MEDS: rOPINIRole HCL 1 MG TABLET PO SCH ×3 (08:42→20:23)
[2022-12-14] MEDS: PANTOprazole 40 MG TAB PO SCH (08:43)
[2022-12-14] MEDS: CARBIDOPA/LEVODOPA 25/100MG TAB PO SCH ×3 (08:43→20:23)
[2022-12-14] MEDS: SACCHAROMYCES BOULARDII 250 MG CAP PO SCH ×2 (08:43→20:23)
[2022-12-14] MEDS: METOPROLOL TARTRATE 25 MG TAB PO SCH (08:43)
[2022-12-14] MEDS: ATORVASTATIN 20 MG TAB PO SCH (08:43)
[2022-12-14] MEDS: POTASSIUM CHLORIDE CRTAB 20 MEQ TABCR PO SCH (08:44)
[2022-12-14] MEDS: hydrOXYzine HCl 25 MG TAB PO PRN ×2 (08:44→20:23)
[2022-12-14] MEDS: MIDODRINE HCL 2.5 MG TAB PO SCH ×3 (08:44→16:17)
[2022-12-14] MEDS: FLUTICASONE/VILANTEROL 100/25MCG 14 PUFFS/INHALER INH SCH (08:45)
[2022-12-14] MEDS: LIDOCAINE 5% 1 PATCH TD SCH (08:45)
[2022-12-14] MEDS: FLUTICASONE PROPIONATE NA SPR 16 GM BTL SCH (08:45)
[2022-12-14] MEDS: ERTAPENEM SODIUM 1,000 MG in SYRINGE 0 ML IV SCH (10:18)
[2022-12-14] MEDS: oxyCODONE/ACETAMINOPHEN 5mg/325mg TAB PO PRN ×2 (10:22→20:24)
--- NOTE | 2022-12-14 12:10 | Hospitalist Progress Note ---
Date of Service December 14, 2022 Assessment & Plan (1) Acute UTI (urinary tract infection): Plan Weakness This is a 72-year-old female who has significant past medical history of chronic diastolic CHF, history of PSVT, HTN, thoracic aortic aneurysm, Edenilson-Danlos syndrome, secondary hyperparathyroidism, hypothyroidism, hyperlipidemia, BRANDIE on CPAP, asthma, vitamin D deficiency, GERD, history of diverticulitis with colon perforation, RLS, fibromyalgia, chronic pain syndrome, hypercoagulability, history of gastric bypass, depression, history of PTSD, history of PE who presents to ED secondary to Urinary symptoms. Acute UTI Dysuria admit to PCU pt presented with hypotension, although at baseline pt BP in 90s systolic. She also had mildly elevated temp. Technically she does not meet criteria for Sepsis. but early sepsis is probable received IV Dapto/Cefepime in ED will continue with IV cefepime for likely urine source, await urine/blood culture CT a/p reviewed - previous diverticular abscess resolved, ? enterocolitis; however pt is having no abd pain and formed stool, monitor Received 2L in a.m Antibiotic was changed to intravenous ertapenem from 12/11/2022 Urine culture is growing E. coli ESBL-sensitive to quinolones, gentamicin Zosyn sulfa and current ertapenem 1 out of 2 blood culture is positive for gram-negative ESBL Remains stable with tiredness without any other acute symptoms Appreciate ID input and recommendation-advised to have intravenous ertapenem or oral Cipro to finish for the total course of 14 days The patient preferred to have IV antibiotic PICC/midline will be placed today and the patient will need to go to SNF for the next 10 days before can go back to [facility] Hx of PE/DVT Hypercoagulable state Supratherapeutic INR hold warfarin INR 3.8 repeat INR In a.m. home dose is 2mg MWF and 4mg all other days INR remains minimally elevated at 3.8 and will be monitored INR has been therapeutic at 2.2-we will restart anticoagulation We will continue with anticoagulation POTS/Chronic low blood pressure continue midodrine Advised to drink more fluid Chronic Pain Ehler Danlos syndrome continue buprenorphine patch/oxy, lidocaine pdmp checked Pain seems to be controlled Hx of Parkinson RLS continue requip, sinemet walks with rollator, will consult PT/OT Will need placement Chronic Anemia hgb stable at 9.3 receives iron infusion with Mag/Dr. Turner Chronic lower extremity edema 2/2 lymphedema Chronic Diastolic HF pt with chronic edema, at baseline, chronic erythema no cellulitis hold lasix for now, re eval in a.m. to resume if pressures allow Blood pressure remains low at 107/77 Chronic R shoulder dislocation continue pain meds wishing for replacement, but states currently not a candidate Hypothyroidism continue levothyroxine DVT ppx: warfarin Dispo: PCU FULL CODE PCP: Alla Agee Will need to have IV antibiotic for the next 10 days and the patient will need to go to SNF before going back to [facility] Remains medically stable to be transferred Admission and Anticipated Discharge Date Admission Date: December 10, 2022 Subjective 12/12/2022 The patient was seen and examined in telemetry unit She remains weak and lethargic but denies any significant pain No abdominal discomfort, no dysuria and no fever and or chills 12/13/2022 The patient was seen and examined in telemetry unit She has been feeling much better but remains generally weak and lethargic Blood pressure remains on the lower side without any symptoms Denies any fever and or chills, abdominal pain nausea or vomiting 12/14/2022 The patient was seen and examined in telemetry unit She remains generally weak and lethargic but denies any other significant symptoms She decided to have antibiotic through IV for the next 10 days She will have a PICC/midline placed today Review of Systems Review of Systems: All systems reviewed and are unremarkable except as noted below Physical Exam Physical Exam: Lying in bed without any acute distress Constitutional: + ill appearing and + thin Eyes: PERRL, conjunctivae normal, anicteric sclerae ENMT: external ear and nose normal, oropharynx normal Neck: trachea midline, no thyromegaly Respiratory: no respiratory distress Auscultation: lungs clear to auscultation bilaterally and + diminished lung sounds Cardiovascular: Rate/Rhythm: regular rate; not tachycardic Heart Sounds: normal S1, normal S2 and + murmur Extremities: no edema Gastrointestinal (Abdomen): Inspection/Auscultation: normal bowel sounds; abdomen not distended Percussion/Palpation: abdomen soft; abdomen nontender Musculoskeletal: No acute arthritis involving any of the joint Neurologic: normal touch/pain/proprioception and moves all extremities; no focal motor deficits Lymphatic: no cervical or axillary lymphadenopathy Results & Data Results & Data Vital Signs (Past 12 Hours) Vital Signs Temp Pulse Pulse Resp BP Pulse Ox O2 Del Method 12/14/22 07:56 36.4 C L 62 16 85/54 L 96 Room Air 12/14/22 07:00 60 12/14/22 03:40 36.7 C 58 L 16 115/76 95 Room Air Medications Administered Current Inpatient Medications Acetaminophen (Acetaminophen 325 Mg Tab) 650 mg PO Q4H PRN PRN Reason: Pain or Fever Stop: 01/09/23 21:07 Last Admin: 12/11/22 07:41 Dose: 650 mg Acetaminophen (Acetaminophen 500 Mg Tab) 1,000 mg PO QDL [facility] Stop: 01/10/23 11:29 Last Admin: 12/13/22 12:05 Dose: 1,000 mg Al Hydrox/Mg Hydrox/Simethicone (Aluminum/Magnesium Susp 30 Ml Udc) 15 ml PO Q4H PRN PRN Reason: Dyspepsia Stop: 01/09/23 21:07 Atorvastatin Calcium (Atorvastatin 20 Mg Tab) 20 mg PO QAM [facility] [place] Stop: 01/10/23 08:59 Last Admin: 12/14/22 08:43 Dose: 20 mg Buprenorphine HCl (Buprenorphine 5 Mcg/Hr Tdsy) 15 mcg TD Tu@0900 [facility] Stop: 01/10/23 08:59 Last Admin: 12/11/22 10:52 Dose: 15 mcg Carbidopa/Levodopa (Carbidopa/Levodopa 25/100mg Tab) 1 tab PO TID@0800,1200,2000 [facility] [place] Stop: 01/09/23 21:07 Last Admin: 12/14/22 08:43 Dose: 1 tab Ergocalciferol (Ergocalciferol 50,000 Units 1250 Mcg Cap) 50,000 units PO We@0900 [facility] [place] Stop: 01/11/23 08:59 Last Admin: 12/12/22 09:44 Dose: 50,000 units Fluticasone Propionate (Fluticasone Propionate Na Spr 16 Gm Btl) 2 sprays NA DAILY [facility] [place] Stop: 01/10/23 08:59 Last Admin: 12/14/22 08:45 Dose: Not Given Fluticasone/Vilanterol (Fluticasone/Vilanterol 100/25mcg 14 Puffs/Inhaler) 1 puffs INH DAILY [facility] [place]; Protocol Stop: 01/10/23 08:59 Last Admin: 12/14/22 08:45 Dose: 1 puffs Hydroxyzine HCl (Hydroxyzine Hcl 25 Mg Tab) 25 mg PO Q6 PRN PRN Reason: ANXIETY/ITCHING Stop: 01/09/23 21:07 Last Admin: 12/14/22 08:44 Dose: 25 mg Ertapenem 1,000 mg/ Syringe 10 mls @ 2 mls/min IV Q24H [facility] Stop: 12/25/22 07:59 Last Admin: 12/14/22 10:18 Dose: 2 mls/min Levothyroxine Sodium (Levothyroxine Sodium 50 Mcg Tablet) 50 mcg PO DAILYBB [facility] [place] Stop: 01/10/23 06:29 Last Admin: 12/14/22 06:13 Dose: 50 mcg Lidocaine (Lidocaine 5% 1 Patch) 2 patch TD DAILY@0800 [facility] [place] Stop: 01/10/23 07:59 Last Admin: 12/14/22 08:45 Dose: 2 patch Linaclotide (Linaclotide 145 Mcg Capsule) 290 mcg PO QDL [facility] [place] Stop: 01/10/23 11:29 Last Admin: 12/13/22 12:05 Dose: 290 mcg Magnesium Hydroxide (Magnesium Hydroxide Susp 30 Ml Udc) 30 ml PO Q12H PRN PRN Reason: Constipation Stop: 01/09/23 21:07 Metoprolol Tartrate (Metoprolol Tartrate 25 Mg Tab) 12.5 mg PO DAILY [facility] [place] Stop: 01/10/23 08:59 Last Admin: 12/14/22 08:43 Dose: Not Given Midodrine (Midodrine Hcl 2.5 Mg Tab) 2.5 mg PO TID@0800,1200,1700 [facility] [place] Stop: 01/09/23 21:07 Last Admin: 12/14/22 08:44 Dose: 2.5 mg Mirtazapine (Mirtazapine Tab 15 Mg Tab) 30 mg PO HS [facility] [place] Stop: 01/09/23 21:07 Last Admin: 12/13/22 20:22 Dose: 30 mg Miscellaneous (Remove & Waste Butrans Patch 1 Ea Ea) 1 each N/A Tu@0857,0858,0859 [facility] [place] Stop: 01/17/23 08:56 Montelukast Sodium (Montelukast Sodium 10 Mg Tablet) 10 mg PO HS [facility] [place] Stop: 01/09/23 21:07 Last Admin: 12/13/22 20:22 Dose: 10 mg Ondansetron HCl (Ondansetron Inj 2 Mg/Ml 2 Ml Vial) 4 mg IV Q6H PRN PRN Reason: Nausea Stop: 01/09/23 21:07 Last Admin: 12/13/22 15:56 Dose: 4 mg Oxycodone/Acetaminophen (Oxycodone/Acetaminophen 5mg/325mg Tab) 1 tab PO Q8H PRN PRN Reason: Pain (Scale Score 4-10) Stop: 12/24/22 21:07 Last Admin: 12/14/22 10:22 Dose: 1 tab Pantoprazole Sodium (Pantoprazole 40 Mg Tab) 40 mg PO DAILY [facility] [place]; Protocol Stop: 01/10/23 08:59 Last Admin: 12/14/22 08:43 Dose: 40 mg Polyethylene Glycol (Polyethylene (Miralax) 17 Gm Pack) 17 gm PO DAILY PRN PRN Reason: Constipation Stop: 01/09/23 21:07 Potassium Chloride (Potassium Chloride Crtab 20 Meq Tabcr) 20 meq PO QDD [facility] [place] Stop: 01/10/23 16:29 Potassium Chloride (Potassium Chloride Crtab 20 Meq Tabcr) 20 meq PO DAILY [facility] [place] Stop: 01/10/23 08:59 Last Admin: 12/14/22 08:44 Dose: 20 meq Ropinirole HCl (Ropinirole Hcl 1 Mg Tablet) 3 mg PO TID@0800,1500,2000 [facility] [place] Stop: 01/09/23 21:07 Last Admin: 12/14/22 08:42 Dose: 3 mg Saccharomyces Boulardii (Saccharomyces Boulardii 250 Mg Cap) 250 mg PO BID [facility] [place] Stop: 01/09/23 21:07 Last Admin: 12/14/22 08:43 Dose: 250 mg Warfarin Sodium (Warfarin Sod 4 Mg Tab) 4 mg PO SuTuThSa@1700 [facility] [place] Stop: 01/12/23 16:59 Last Admin: 12/13/22 15:57 Dose: 4 mg Warfarin Sodium (Warfarin Sod 2 Mg Tab) 2 mg PO MoWeFr@1700 [facility] Stop: 01/13/23 16:59
[2022-12-14] MEDS: LINACLOTIDE 145 MCG CAPSULE PO SCH (13:10)
[2022-12-14] MEDS: ACETAMINOPHEN 500 MG TAB PO SCH (13:12)
[2022-12-14] MEDS ORDERED: WARFARIN SOD 2 MG TAB PO SCH (17:00)
[2022-12-14] MEDS: MIRTAZAPINE TAB 15 MG TAB PO SCH (20:23)
[2022-12-14] MEDS: MONTELUKAST SODIUM 10 MG TABLET PO SCH (20:23)
[2022-12-15] MEDS: LEVOTHYROXINE SODIUM 50 MCG TABLET PO SCH (04:05)
[2022-12-15 07:12] LABS: INR 1.8 (0.9-1.1); Prothrombin Time 18.7 Seconds (9.0-12.0)
[2022-12-15] MEDS: SACCHAROMYCES BOULARDII 250 MG CAP PO SCH (09:03)
[2022-12-15] MEDS: FLUTICASONE/VILANTEROL 100/25MCG 14 PUFFS/INHALER INH SCH (09:03)
[2022-12-15] MEDS: CARBIDOPA/LEVODOPA 25/100MG TAB PO SCH (09:03)
[2022-12-15] MEDS: ATORVASTATIN 20 MG TAB PO SCH (09:03)
[2022-12-15] MEDS: METOPROLOL TARTRATE 25 MG TAB PO SCH (09:04)
[2022-12-15] MEDS: POTASSIUM CHLORIDE CRTAB 20 MEQ TABCR PO SCH (09:04)
[2022-12-15] MEDS: FLUTICASONE PROPIONATE NA SPR 16 GM BTL SCH (09:04)
[2022-12-15] MEDS: PANTOprazole 40 MG TAB PO SCH (09:04)
[2022-12-15] MEDS: MIDODRINE HCL 2.5 MG TAB PO SCH (09:05)
[2022-12-15] MEDS: LIDOCAINE 5% 1 PATCH TD SCH (09:05)
[2022-12-15] MEDS: rOPINIRole HCL 1 MG TABLET PO SCH (09:05)
[2022-12-15] MEDS: ERTAPENEM SODIUM 1,000 MG in SYRINGE 0 ML IV SCH (09:09)
[2022-12-15] MEDS: ONDANSETRON INJ 2 MG/ML 2 ML VIAL IV PRN (09:10)
--- NOTE | 2022-12-15 10:39 | Hospitalist Progress Note ---
Date of Service December 15, 2022 Assessment & Plan (1) Acute UTI (urinary tract infection): Plan Weakness This is a 72-year-old female who has significant past medical history of chronic diastolic CHF, history of PSVT, HTN, thoracic aortic aneurysm, Edenilson-Danlos syndrome, secondary hyperparathyroidism, hypothyroidism, hyperlipidemia, BRANDIE on CPAP, asthma, vitamin D deficiency, GERD, history of diverticulitis with colon perforation, RLS, fibromyalgia, chronic pain syndrome, hypercoagulability, history of gastric bypass, depression, history of PTSD, history of PE who presents to ED secondary to Urinary symptoms. Acute UTI Dysuria admit to PCU pt presented with hypotension, although at baseline pt BP in 90s systolic. She also had mildly elevated temp. Technically she does not meet criteria for Sepsis. but early sepsis is probable received IV Dapto/Cefepime in ED will continue with IV cefepime for likely urine source, await urine/blood culture CT a/p reviewed - previous diverticular abscess resolved, ? enterocolitis; however pt is having no abd pain and formed stool, monitor Received 2L in a.m Antibiotic was changed to intravenous ertapenem from 12/11/2022 Urine culture is growing E. coli ESBL-sensitive to quinolones, gentamicin Zosyn sulfa and current ertapenem 1 out of 2 blood culture is positive for gram-negative ESBL Remains stable with tiredness without any other acute symptoms Appreciate ID input and recommendation-advised to have intravenous ertapenem or oral Cipro to finish for the total course of 14 days The patient preferred to have IV antibiotic PICC/midline will be placed today and the patient will need to go to SNF for the next 10 days before can go back to [facility] Remains medically stable to be transferred to [facility] to continue antibiotic and physical therapy Hx of PE/DVT Hypercoagulable state Supratherapeutic INR hold warfarin INR 3.8 repeat INR In a.m. home dose is 2mg MWF and 4mg all other days INR remains minimally elevated at 3.8 and will be monitored INR has been therapeutic at 2.2-we will restart anticoagulation We will continue with anticoagulation INR is 1.8 today and will continue the current dose of Coumadin POTS/Chronic low blood pressure continue midodrine Advised to drink more fluid Chronic Pain Ehler Danlos syndrome continue buprenorphine patch/oxy, lidocaine pdmp checked Pain seems to be controlled Hx of Parkinson RLS continue requip, sinemet walks with rollator, will consult PT/OT We will do back to [facility] following finish course of antibiotic Chronic Anemia hgb stable at 9.3 receives iron infusion with Mag/Dr. Turner Chronic lower extremity edema 2/2 lymphedema Chronic Diastolic HF pt with chronic edema, at baseline, chronic erythema no cellulitis hold lasix for now, re eval in a.m. to resume if pressures allow Blood pressure remains low at 107/77 Chronic R shoulder dislocation continue pain meds wishing for replacement, but states currently not a candidate Hypothyroidism continue levothyroxine DVT ppx: warfarin Dispo: PCU FULL CODE PCP: Alla Agee Will need to have IV antibiotic for the next 10 days and the patient will need to go to SNF before going back to [facility] She will be transferred to [facility] this afternoon Admission and Anticipated Discharge Date Admission Date: December 10, 2022 Subjective 12/12/2022 The patient was seen and examined in telemetry unit She remains weak and lethargic but denies any significant pain No abdominal discomfort, no dysuria and no fever and or chills 12/13/2022 The patient was seen and examined in telemetry unit She has been feeling much better but remains generally weak and lethargic Blood pressure remains on the lower side without any symptoms Denies any fever and or chills, abdominal pain nausea or vomiting 12/14/2022 The patient was seen and examined in telemetry unit She remains generally weak and lethargic but denies any other significant symptoms She decided to have antibiotic through IV for the next 10 days She will have a PICC/midline placed today 12/15/2022 The patient was seen and examined in telemetry unit She remains stable and denies any significant symptoms No fever and or chills, no abdominal pain, nausea and or vomiting She will be transferred to [facility] this afternoon Review of Systems Review of Systems: All systems reviewed and are unremarkable except as noted below Physical Exam Physical Exam: Lying in bed without any acute distress Constitutional: + ill appearing and + thin Eyes: PERRL, conjunctivae normal, anicteric sclerae ENMT: external ear and nose normal, oropharynx normal Neck: trachea midline, no thyromegaly Respiratory: no respiratory distress Auscultation: lungs clear to auscultation bilaterally and + diminished lung sounds Cardiovascular: Rate/Rhythm: regular rate; not tachycardic Heart Sounds: normal S1, normal S2 and + murmur Extremities: no edema Gastrointestinal (Abdomen): Inspection/Auscultation: normal bowel sounds; abdomen not distended Percussion/Palpation: abdomen soft; abdomen nontender, no guarding and abdomen not rigid Musculoskeletal: No acute arthritis involving any of the joint Neurologic: normal touch/pain/proprioception and moves all extremities; no focal motor deficits Alert, awake and oriented x3. Generally weak and lethargic Lymphatic: no cervical or axillary lymphadenopathy Results & Data Results & Data Vital Signs (Past 12 Hours) Vital Signs Temp Pulse Pulse Resp BP Pulse Ox O2 Del Method 12/15/22 07:00 57 L 12/15/22 07:28 36.6 C 61 17 97/62 L 96 Room Air 12/15/22 02:06 36.5 C 56 L 18 122/65 98 Room Air 12/14/22 23:04 54 L 12/14/22 22:59 36.8 C 53 L 16 94/67 L 97 Room Air Medications Administered Current Inpatient Medications Acetaminophen (Acetaminophen 325 Mg Tab) 650 mg PO Q4H PRN PRN Reason: Pain or Fever Stop: 01/09/23 21:07 Last Admin: 12/11/22 07:41 Dose: 650 mg Acetaminophen (Acetaminophen 500 Mg Tab) 1,000 mg PO QDL [facility] Stop: 01/10/23 11:29 Last Admin: 12/14/22 13:12 Dose: 1,000 mg Al Hydrox/Mg Hydrox/Simethicone (Aluminum/Magnesium Susp 30 Ml Udc) 15 ml PO Q4H PRN PRN Reason: Dyspepsia Stop: 01/09/23 21:07 Atorvastatin Calcium (Atorvastatin 20 Mg Tab) 20 mg PO QAM [facility] Stop: 01/10/23 08:59 Last Admin: 12/15/22 09:03 Dose: 20 mg Buprenorphine HCl (Buprenorphine 5 Mcg/Hr Tdsy) 15 mcg TD Tu@0900 [facility] Stop: 01/10/23 08:59 Last Admin: 12/11/22 10:52 Dose: 15 mcg Carbidopa/Levodopa (Carbidopa/Levodopa 25/100mg Tab) 1 tab PO TID@0800,1200,2000 [facility] Stop: 01/09/23 21:07 Last Admin: 12/15/22 09:03 Dose: 1 tab Ergocalciferol (Ergocalciferol 50,000 Units 1250 Mcg Cap) 50,000 units PO We@0900 [facility] Stop: 01/11/23 08:59 Last Admin: 12/12/22 09:44 Dose: 50,000 units Fluticasone Propionate (Fluticasone Propionate Na Spr 16 Gm Btl) 2 sprays NA DAILY [facility] Stop: 01/10/23 08:59 Last Admin: 12/15/22 09:04 Dose: Not Given Fluticasone/Vilanterol (Fluticasone/Vilanterol 100/25mcg 14 Puffs/Inhaler) 1 puffs INH DAILY [facility]; Protocol Stop: 01/10/23 08:59 Last Admin: 12/15/22 09:03 Dose: 1 puffs Hydroxyzine HCl (Hydroxyzine Hcl 25 Mg Tab) 25 mg PO Q6 PRN PRN Reason: ANXIETY/ITCHING Stop: 01/09/23 21:07 Last Admin: 12/14/22 20:23 Dose: 25 mg Ertapenem 1,000 mg/ Syringe 10 mls @ 2 mls/min IV Q24H [facility] Stop: 12/25/22 07:59 Last Admin: 12/15/22 09:09 Dose: 2 mls/min Levothyroxine Sodium (Levothyroxine Sodium 50 Mcg Tablet) 50 mcg PO DAILYBB [facility] Stop: 01/10/23 06:29 Last Admin: 12/15/22 04:05 Dose: 50 mcg Lidocaine (Lidocaine 5% 1 Patch) 2 patch TD DAILY@0800 [facility] Stop: 01/10/23 07:59 Last Admin: 12/15/22 09:05 Dose: Not Given Linaclotide (Linaclotide 145 Mcg Capsule) 290 mcg PO QDL [facility] Stop: 01/10/23 11:29 Last Admin: 12/14/22 13:10 Dose: 290 mcg Magnesium Hydroxide (Magnesium Hydroxide Susp 30 Ml Udc) 30 ml PO Q12H PRN PRN Reason: Constipation Stop: 01/09/23 21:07 Metoprolol Tartrate (Metoprolol Tartrate 25 Mg Tab) 12.5 mg PO DAILY [facility] Stop: 01/10/23 08:59 Last Admin: 12/15/22 09:04 Dose: Not Given Midodrine (Midodrine Hcl 2.5 Mg Tab) 2.5 mg PO TID@0800,1200,1700 [facility] Stop: 01/09/23 21:07 Last Admin: 12/15/22 09:05 Dose: 2.5 mg Mirtazapine (Mirtazapine Tab 15 Mg Tab) 30 mg PO HS [facility] Stop: 01/09/23 21:07 Last Admin: 12/14/22 20:23 Dose: 30 mg Miscellaneous (Remove & Waste Butrans Patch 1 Ea Ea) 1 each N/A Tu@0857,0858,0859 [facility] Stop: 01/17/23 08:56 Montelukast Sodium (Montelukast Sodium 10 Mg Tablet) 10 mg PO HS [facility] Stop: 01/09/23 21:07 Last Admin: 12/14/22 20:23 Dose: 10 mg Ondansetron HCl (Ondansetron Inj 2 Mg/Ml 2 Ml Vial) 4 mg IV Q6H PRN PRN Reason: Nausea Stop: 01/09/23 21:07 Last Admin: 12/15/22 09:10 Dose: 4 mg Oxycodone/Acetaminophen (Oxycodone/Acetaminophen 5mg/325mg Tab) 1 tab PO Q8H PRN PRN Reason: Pain (Scale Score 4-10) Stop: 12/24/22 21:07 Last Admin: 12/14/22 20:24 Dose: 1 tab Pantoprazole Sodium (Pantoprazole 40 Mg Tab) 40 mg PO DAILY [facility]; Protocol Stop: 01/10/23 08:59 Last Admin: 12/15/22 09:04 Dose: 40 mg Polyethylene Glycol (Polyethylene (Miralax) 17 Gm Pack) 17 gm PO DAILY PRN PRN Reason: Constipation Stop: 01/09/23 21:07 Potassium Chloride (Potassium Chloride Crtab 20 Meq Tabcr) 20 meq PO QDD [facility] Stop: 01/10/23 16:29 Potassium Chloride (Potassium Chloride Crtab 20 Meq Tabcr) 20 meq PO DAILY [facility] Stop: 01/10/23 08:59 Last Admin: 12/15/22 09:04 Dose: 20 meq Ropinirole HCl (Ropinirole Hcl 1 Mg Tablet) 3 mg PO TID@0800,1500,2000 [facility] Stop: 01/09/23 21:07 Last Admin: 12/15/22 09:05 Dose: 3 mg Saccharomyces Boulardii (Saccharomyces Boulardii 250 Mg Cap) 250 mg PO BID [facility] Stop: 01/09/23 21:07 Last Admin: 12/15/22 09:03 Dose: 250 mg Warfarin Sodium (Warfarin Sod 4 Mg Tab) 4 mg PO SuTuThSa@1700 [facility] Stop: 01/12/23 16:59 Last Admin: 12/13/22 15:57 Dose: 4 mg Warfarin Sodium (Warfarin Sod 2 Mg Tab) 2 mg PO MoWeFr@1700 [facility] Stop: 01/13/23 16:59 Last Admin: 12/14/22 16:17 Dose: 2 mg
--- NOTE | 2022-12-17 12:08 | Discharge Summary ---
Date of Service December 15, 2022 Admission HPI Per Admitting Provider This is a 72-year-old female who has significant past medical history of chronic diastolic CHF, history of PSVT, HTN, thoracic aortic aneurysm, Edenilson-Danlos syndrome, secondary hyperparathyroidism, hypothyroidism, hyperlipidemia, BRANDIE on CPAP, asthma, vitamin D deficiency, GERD, history of diverticulitis with colon perforation, RLS, fibromyalgia, chronic pain syndrome, hypercoagulability, history of gastric bypass, depression, history of PTSD, history of PE who presents to ED secondary to Urinary symptoms. Of Significance patient follows [facility] at home. She lives at [facility]. She was evaluated by provider today due to urinary symptoms and concern for UTI. A urine sample was obtained and is currently pending. She also received 1 g IM Rocephin. Blood pressures were at baseline per [facility] at home. At that point in time no IV fluids was recommended just increased oral intake. Personal long-term ended up sending patient to ED for further evaluation. Patient also noted feeling generally weak, general malaise, feeling feverish, dysuria and left flank pain. She also complains of incomplete bladder emptying and urgency but denies hematuria. She denies vianca diarrhea. Last BM was yesterday and formed. She was given Linzess today which she states causes her to have diarrhea. She does have prior history of sepsis as well as recent history of Bacteroides fragilis bacteremia in setting of perforated diverticulitis. She chronically has low blood pressure due to POTS. Baseline blood pressure is 90 systolically. Currently patient denies any pain, recent fall, chills, lightheadedness, dizzy, headache, change in vision, chest pain, shortness breath, URI symptoms, nausea, vomiting, abdominal pain, melena, hematochezia. In ED she received IV Dapto and cefepime along with 30ml/kg IVF resuscitation. Her initial BP was 70s systolic but has since improved to 90s and HR has remained stable. She did have mildly elevated temp at 37.6. Admission Exam Per Admitting Provider Physical Exam: Constitutional: Elderly, F, lying in bed, WD/WN, vitals as above, NAD, sitting up in bed, pleasant, conversing easily Head: Normocephalic, Atraumatic Eyes: PERRL, conjunctivae normal, anicteric sclerae ENMT: external ear and nose normal, oropharynx normal dry membranes Neck: trachea midline, no thyromegaly normal visual inspection Respiratory: normal respiratory effort, lungs clear to auscultation, no wheeze, rales, rhonchi. Normal insp/exp effort, no accessory muscle use Cardiovascular: RRR, no murmur, chronic b/l lymphedema with chronic erythematous changes, no open wounds/cellulitis Vessels: no JVD or carotid bruit Chest: normal inspection of chest Abdomen: normal bowel sounds, soft, nontender, no hepatosplenomegaly Musculoskeletal: no cyanosis or clubbing, extremities motor strength 5/5 Skin: no rashes, warm and dry normal turgor Neurologic: PERRL, EOMI, accommodation nl, no face palsy, no dysarthria CN's II-XI intact bilaterally and moves all extremities Psychiatric: A+Ox3, euthymic affect Lymphatic: no cervical or axillary lymphadenopathy : deferred Principal Diagnosis ESBL bacteremia, acute UTI, history of DVT, Edenilson-Danlos syndrome Discharge Exam Lying in bed without any acute distress Constitutional + ill appearing and + thin Eyes PERRL, conjunctivae normal, anicteric sclerae ENMT external ear and nose normal, oropharynx normal Neck trachea midline, no thyromegaly Respiratory no respiratory distress Auscultation: lungs clear to auscultation bilaterally and + diminished lung sounds Cardiovascular Rate/Rhythm: regular rate; not tachycardic Heart Sounds: normal S1, normal S2 and + murmur Extremities: no edema Gastrointestinal (Abdomen) Inspection/Auscultation: normal bowel sounds; abdomen not distended Percussion/Palpation: abdomen soft; abdomen nontender, no guarding and abdomen not rigid Neurologic normal touch/pain/proprioception and moves all extremities; no focal motor deficits Lymphatic no cervical or axillary lymphadenopathy Discharge Data Allergies Allergy/AdvReac Type Severity Reaction Status Date / Time ammonia Allergy Severe FACE, Verified 12/10/22 16:47 LIPS, TONGUE EDEMA buspirone Allergy Severe NEURO Verified 12/10/22 16:47 COMPLICATIONS duloxetine Allergy Intermediate RASH Verified 12/10/22 16:47 ITCHING adhesive Allergy Mild skin tears Verified 12/10/22 16:47 vancomycin Allergy Unknown ON [facility] Verified 12/10/22 16:47 MED LIST diphenhydramine AdvReac Intermediate RESTLESS Verified 12/10/22 16:47 LEGS gabapentin AdvReac Intermediate MUSCLE Verified 12/10/22 16:47 STIFFNESS lisinopril AdvReac Intermediate cough Verified 12/10/22 16:47 NSAIDS (Non-Steroidal AdvReac Unknown not Verified 12/10/22 16:47 Anti-Inflamma supposed to use-S/P GASTRIC BYPASS venlafaxine AdvReac Unknown AFFECTS Verified 12/10/22 16:47 LEGS Consultations 12/12/22 11:37 Consult Infectious Diseases Routine Ordered Studies 12/10/22 14:05 CT Abd and Pelvis [CT abd pelvis wo con] Stat Hospital Course (1) Acute UTI (urinary tract infection): Plan Weakness This is a 72-year-old female who has significant past medical history of chronic diastolic CHF, history of PSVT, HTN, thoracic aortic aneurysm, Edenilson-Danlos syndrome, secondary hyperparathyroidism, hypothyroidism, hyperlipidemia, BRANDIE on CPAP, asthma, vitamin D deficiency, GERD, history of diverticulitis with colon perforation, RLS, fibromyalgia, chronic pain syndrome, hypercoagulability, history of gastric bypass, depression, history of PTSD, history of PE who presents to ED secondary to Urinary symptoms. Acute UTI Dysuria admit to PCU pt presented with hypotension, although at baseline pt BP in 90s systolic. She also had mildly elevated temp. Technically she does not meet criteria for Sepsis. but early sepsis is probable received IV Dapto/Cefepime in ED will continue with IV cefepime for likely urine source, await urine/blood culture CT a/p reviewed - previous diverticular abscess resolved, ? enterocolitis; however pt is having no abd pain and formed stool, monitor Received 2L in a.m Antibiotic was changed to intravenous ertapenem from 12/11/2022 Urine culture is growing E. coli ESBL-sensitive to quinolones, gentamicin Zosyn sulfa and current ertapenem 1 out of 2 blood culture is positive for gram-negative ESBL Remains stable with tiredness without any other acute symptoms Appreciate ID input and recommendation-advised to have intravenous ertapenem or oral Cipro to finish for the total course of 14 days The patient preferred to have IV antibiotic PICC/midline will be placed today and the patient will need to go to SNF for the next 10 days before can go back to personal-long-term Remains medically stable to be transferred to [facility] to continue antibiotic and physical therapy Hx of PE/DVT Hypercoagulable state Supratherapeutic INR hold warfarin INR 3.8 repeat INR In a.m. home dose is 2mg MWF and 4mg all other days INR remains minimally elevated at 3.8 and will be monitored INR has been therapeutic at 2.2-we will restart anticoagulation We will continue with anticoagulation INR is 1.8 today and will continue the current dose of Coumadin POTS/Chronic low blood pressure continue midodrine Advised to drink more fluid Chronic Pain Ehler Danlos syndrome continue buprenorphine patch/oxy, lidocaine pdmp checked Pain seems to be controlled Hx of Parkinson RLS continue requip, sinemet walks with rollator, will consult PT/OT We will do back to [facility] following finish course of antibiotic Chronic Anemia hgb stable at 9.3 receives iron infusion with Heme/Dr. Turner Chronic lower extremity edema 2/2 lymphedema Chronic Diastolic HF pt with chronic edema, at baseline, chronic erythema no cellulitis hold lasix for now, re eval in a.m. to resume if pressures allow Blood pressure remains low at 107/77 Chronic R shoulder dislocation continue pain meds wishing for replacement, but states currently not a candidate Hypothyroidism continue levothyroxine DVT ppx: warfarin Dispo: PCU FULL CODE PCP: Alla Agee Will need to have IV antibiotic for the next 10 days and the patient will need to go to SNF before going back to [facility] She will be transferred to [facility] this afternoon Total Time Total Time Spent Total Time Spent (In Minutes): 35 minutes Discharge Plan Discharge Items Patient Disposition: Transfer Inpatient Rehab Fac Reason For Visit: SEPSIS Discharge Diagnosis: Acute UTI , ESBL bacteremia, history of PE/DVT, chronic pain, Edenilson-Danlos syndrome, chronic diastolic heart failure Condition on Discharge: Fair Activity: Resume your previous activity Non-emergency contact: Primary Care Provider Call non-emergency contact if: you have any medication questions and your symptoms worsen [place] [Primary Care Provider] - Diet: Regular Addtl Attending Provider Instructions: Please take precautions to avoid fall Finish the course of IV antibiotic Take your medications as advised Continue to have PT and OT Keep appointments with your healthcare provider Continue anticoagulation and maintain INR between 2-3(INR 1.8 on12/15/22) Pending Studies at Discharge: No Stand-Alone Forms: My [facility] Skilled Items Patient informed of condition?: Yes DNR: No Discharge Level of Care: Acute rehab Communicable Disease: No Discharge Prognosis: Stable Lines: PICC Urinary Catheter: No Medications and DC Order Prescriptions: New ertapenem 1 gram recon soln 1 g IV DAILY 9 Days Qty: 9 0RF Continued atorvastatin 20 mg tablet 20 mg PO QAM levothyroxine 50 mcg tablet 50 mcg PO DAILY montelukast 10 mg tablet 10 mg PO HS hydroxyzine HCl 25 mg Tablet 25 mg PO Q6 PRN (Reason: ANXIETY/ITCHING) ergocalciferol (vitamin D2) [Vitamin D2] 1,250 mcg (50,000 unit) Capsule 1,250 mcg PO WK Rx Instructions: WEDNESDAYS fluticasone propion-salmeterol [Advair Diskus] 100-50 mcg/dose Blister With Device 1 inh INHALATION BID carbidopa-levodopa 25-100 mg Tablet 1 tab PO TID Rx Instructions: 0800, 1200 & 1999 fluticasone propionate [Flonase Allergy Relief] 50 mcg/actuation [place],Suspension 2 spray INTRANASAL DAILY buprenorphine 15 mcg/hour patch weekly 1 patch topical WK Rx Instructions: THURSDAYS omeprazole 40 mg capsule,delayed release(DR/EC) 40 mg PO DAILY warfarin 2 mg Tablet 2 mg PO 3XWK Rx Instructions: TAKE AT 1700 ON SAT, WED, & SAT. furosemide [Lasix] 20 mg Tablet 20 mg PO DAILY PRN (Reason: WT GAIN OF 3 LBS OR MORE) Saccharomyces boulardii [Florastor] 250 mg Capsule 250 mg PO BID warfarin 4 mg tablet 4 mg PO 4XWK Rx Instructions: TAKES AT 1700 ON SAT, , , & SAT. oxycodone-acetaminophen [Percocet] 5-325 mg tablet 1 tab PO Q8H MDD 3 GRAMS APAP/24 HOURS PRN (Reason: Pain (Scale Score 4-10)) potassium chloride 20 mEq tablet,ER particles/crystals 40 meq PO DAILY potassium chloride 20 mEq tablet,ER particles/crystals 20 meq PO QDD furosemide [Lasix] 40 mg Tablet 60 mg PO DAILY lidocaine 4 % Adhesive Patch,Medicated 2 patch TOPICAL DAILY Rx Instructions: APPLY 2 PATCHES DAILY, THEN REMOVE AT 1999. ropinirole 3 mg Tablet 3 mg PO HS Rx Instructions: administer 1-3 hours before bedtime loperamide 2 mg Tablet 2 mg PO Q6H PRN (Reason: Diarrhea) acetaminophen [Tylenol Extra Strength] 500 mg Tablet 1,000 mg PO QDL MDD 3 GRAMS APAP/24 HOURS acetaminophen [Tylenol Extra Strength] 500 mg Tablet 1,000 mg PO Q8H PRN (Reason: TEMP >100F/PAIN) mirtazapine 30 mg Tablet 30 mg PO HS metoprolol tartrate 25 mg Tablet 12.5 mg PO DAILY Rx Instructions: HOLD FOR SBP < 100 Linzess 290 mcg Capsule 290 mcg PO QDL ropinirole 2 mg tablet 3 mg PO TID Rx Instructions: 0800, 1500, & 2000 midodrine 2.5 mg tablet 2.5 mg PO TID Rx Instructions: 0800, 1200, & 1700 Discharge Orders: Discharge Order (Routine); Ordered 12/15/22 Ordered By: Radha South Admission Data Admit Date/Time: 12/10/22 16:34 Attending Provider: Radha South Admit Provider: Ronny Willett [facility] Other Providers: Ramesh Cummings ; [facility] Other Interventions: Discharge Summary Assessment (RN) Last Done: 12/15/22 11:50
== END 2022-12-15 12:52 | DRG 872 ==
LOC: ED 12:28 → 2E 16:34 → SUATTDRO 16:34 → 2E 20:30
DX: R30.0 Dysuria; I11.0 Hypertensive heart disease with heart failure; D64.9 Anemia, unspecified; Z88.6 Allergy status to analgesic agent; Z86.711 Personal history of pulmonary embolism; G47.33 Obstructive sleep apnea (adult) (pediatric); N25.81 Secondary hyperparathyroidism of renal origin; Z79.899 Other long term (current) drug therapy; E55.9 Vitamin D deficiency, unspecified; G90.A Postural orthostatic tachycardia syndrome [POTS]; Z88.1 Allergy status to other antibiotic agents; E78.5 Hyperlipidemia, unspecified; A41.50 Gram-negative sepsis, unspecified; Z87.891 Personal history of nicotine dependence; Z79.01 Long term (current) use of anticoagulants; J45.909 Unspecified asthma, uncomplicated; Q79.60 Ehlers-Danlos syndrome, unspecified; I50.32 Chronic diastolic (congestive) heart failure; Z88.8 Allergy status to other drugs, medicaments and biological substances; Z91.048 Other nonmedicinal substance allergy status; D68.59 Other primary thrombophilia; Z86.718 Personal history of other venous thrombosis and embolism; Z79.51 Long term (current) use of inhaled steroids; Z79.890 Hormone replacement therapy; K21.9 Gastro-esophageal reflux disease without esophagitis; Z79.891 Long term (current) use of opiate analgesic; G89.29 Other chronic pain; K52.9 Noninfective gastroenteritis and colitis, unspecified; E03.9 Hypothyroidism, unspecified; N39.0 Urinary tract infection, site not specified; F32.A Depression, unspecified; M24.411 Recurrent dislocation, right shoulder; F43.10 Post-traumatic stress disorder, unspecified

== ENCOUNTER 2023-07-29 04:32 | Inpatient (IN) ==
--- OUTSIDE RECORDS SUMMARY | 2023-07-29 04:43 | External Medical Summary | Summary of Care ---
Author Name Unknown Organization [facility] Address [address] [place] [address] Phone [phone] Care Team Providers Care Turkey Picker Name Role Phone Lavern Gomez Butch BERNARD Primary Care Provider [phone] Reason for Visit * Reason Comments Dosage Adjustment Via Phone (anticoag Cl inic) Encounter Details Date Type Department Care Team (Latest Contact Info) Description 07/26/2023 5:40 PM EST Anticoagulation Pharmacy Call Center [phone] Public [facility] [place] [phone] [facility] [phone] Public [facility] [place] [phone] Superficial vein thrombosis* Allergies Active Allergy Reactions Criticality Noted Date Comments Adhesive Tape Low 11/17/2020 Other reaction(s): skin tears Ammonia Edema face/lips/tongue High 08/29/2013 Other reaction(s): SWELLING Diphenhydramine 01/24/2016 Restless legs Buspirone Neuro complications (Please comment) High 03/20/2017 Other reaction(s): NEURO COMPLICATIONS Duloxetine Hcl Itching 11/02/2014 Duloxetine 06/06/2019 Dust 04/30/2019 Dust mites Gabapentin 08/05/2017 Muscle stiffness on oral Lisinopril Cough High 07/29/2013 Other reaction(s): cough Nsaids 06/12/2019 Other - Environmental Edema airway,Edema face/lips/tongue High 03/19/2008 Amonia, pollen Other Allergy (See Comments) 04/30/2019 Sam[place] Vancomycin 12/08/2020 Venlafaxine Other (Please comment) 05/16/2016 legs Other reaction(s): AFFECTS LEGS Wound Dressing Adhesive 11/14/2020 Rash on skin documented as of this encounter (statuses as of 07/26/2023) Medications Medication Sig Dispensed Refills Start Date End Date Status Vitamin D, Ergocalciferol, 01590 UNITS Capsule Take 1 Cap by mouth once a week. 4 Cap 2 11/26/2016 Active Additional Information Patient not taking.Reported on 04/09/2023 Fluticasone-Salmete rol 100-50 MCG/DOSE Inhalation Aerosol Powder Breath Activated (Advair Diskus)Indications: Chest tightness Inhale 1 Puff by mouth 2 times a day. 60 Each 1 11/11/2020 Active Syringe 22G X 1" 3 MLIndications:H/O gastric bypass Use to inject b12 50 Each 11 11/29/2021 Active Additional Information Patient not taking.Reported on 05/15/2023 Mupirocin 2 % External Ointment (Bactroban) Apply to both nostrils two times a day for 5 days. 22 g 0 04/24/2023 Active Potassium Chloride Lillian ER 20 MEQ Oral Tablet Extended ReleaseIndications: Hypokalemia,Loop diuretic causing adverse effect in therapeutic use, initial encounter TAKE TWO TABLETS BY MOUTH IN THE MORNING AND ONE TABLET IN THE EVENING 300 Tablet 3 05/13/2023 Active Atorvastatin Calcium 20 MG Oral Tablet (Lipitor) Take 1 Tablet by mouth in the morning. 100 Tablet 3 05/15/2023 Active Levothyroxine Sodium 50 MCG Oral Tablet (Levoxyl)Indication s:Hypothyroidism due to acquired atrophy of thyroid Take 1 Tablet by mouth daily first thing in the morning. (at least 30 min prior to breakfast or other meds) 100 Tablet 3 05/15/2023 Active Montelukast Sodium 10 MG Oral Tablet (Singulair)Indicati ons:Chest tightness Take 1 Tablet by mouth at bedtime. 100 Tablet 3 05/15/2023 Active Omeprazole 20 MG Oral Capsule Delayed Release (PriLOSEC)Indicatio ns:Gastroesophageal reflux disease without esophagitis Take 2 Capsules by mouth in the morning. 200 Capsule 3 05/15/2023 Active hydrOXYzine HCl 25 MG Oral TabletIndications:P TSD (post-traumatic stress disorder),Major depressive disorder, recurrent severe without psychotic features (HCC) Take 1 Tablet by mouth 4 times a day as needed for itching or anxiety. 360 Tablet 2 05/15/2023 Active Warfarin Sodium 2.5 MG Oral Tablet (Coumadin) Take 1/2 to 1 tablet (1.25mg to 2.5mg) by mouth daily as directed by Coumadin clinic (tablet strength change) 100 Tablet 3 05/15/2023 Active Albuterol Sulfate HFA 108 (90 Base) MCG/ACT Inhalation Aerosol SolutionIndications :Cough INHALE TWO PUFFS BY MOUTH EVERY 6 HOURS NEEDED FOR COUGH, SHORTNESS OF BREATH OR WHEEZING 6.7 g 5 05/16/2023 Active Carbidopa-Levodopa 25-100 MG Oral Tablet (Sinemet)Indication s:Parkinson's disease take One tablet by mouth four times a day 120 Tablet 5 05/16/2023 Active Loperamide HCl 2 MG Oral Capsule (Imodium) Take 1 Capsule by mouth every 6 hours as needed for Diarrhea. 30 Capsule 0 05/16/2023 4 Active MEDICAL INSTRUCTIONS Lasix addendum 11/29/2022 CHANGE Lasix adjustment order: Please have the patient complete a diuretic titration plan of 80 mg orally in the a.m. only. for 2 days. ( if she received 80 mg yesterday, that is elina 1, otherwise today is day 1) On day 3 she is to return back to 60 mg daily. 1 Each 1 05/16/2023 Active Metoprolol Tartrate 25 MG Oral Tablet (Lopressor) Take 1 Tablet by mouth daily. 90 Tablet 0 05/16/2023 4 Active Mirtazapine 30 MG Oral Tablet (Remeron)Indication s:Major depressive disorder, recurrent severe without psychotic features (HCC) Take 1 Tablet by mouth at bedtime. 90 Tablet 0 05/16/2023 4 Active rOPINIRole HCl 5 MG Oral Tablet take one-half tablet by mouth three times daily 135 Tablet 1 05/16/2023 Active Fluticasone Propionate 50 MCG/ACT Nasal Suspension (Flonase)Indication s:Acute recurrent sinusitis, unspecified location Administer 2 Sprays into each nostril in the morning. 48 g 3 06/01/2023 Active Midodrine HCl 2.5 MG Oral Tablet (Proamatine)Indicat ions:Orthostatic hypotension Take one and one-half Tablets by mouth in the morning and one and one-half Tablets at noon and one and one-half Tablets before bedtime. 405 Tablet 0 06/07/2023 Active Torsemide 20 MG Oral Tablet (Demadex) Take 2 Tablets by mouth in the morning. 180 Tablet 3 06/19/2023 Active Buprenorphine 15 MCG/HR Transdermal Patch WeeklyIndications:F ibromyalgia Apply 1 Patch topically to affected area once a week. 4 Patch 0 07/11/2023 Active Pregabalin 75 MG Oral Capsule (Lyrica)Indications :Lumbar radiculitis,Pain of both shoulder joints,Central sensitization to pain Take 1 Capsule by mouth in the morning and 1 Capsule at noon and 1 Capsule before bedtime. 90 Capsule 2 07/18/2023 Active Acetaminophen 500 MG Oral Tablet (Tylenol) take 2 tablets by mouth 2 hours prior to Iron Infusions and 2 tablets every 8 hours as needed for mild pain or temp 100 or greater. 100 Tablet 1 07/23/2023 Active Probiotic 1-250 BILLION-MG Oral Capsule Take 1 Capsule by mouth in the morning and 1 Capsule before bedtime. 90 Capsule 3 07/23/2023 Active Hospital, Clinic, or Other Facility Administered Medication Ordered Dose Route Frequency Start Date End Date Status vitamin b-12 (Cyanocobalamin) inj 1,000 mcgIndications:H/O gastric bypass,Vitamin B 12 deficiency 1000 mcg IM [id number] 09/07/2022 08/09/2023 Active documented as of this encounter (statuses as of 07/26/2023) Active Problems Problem Noted Date Diagnosed Date Opioid dependence, uncomplicated 07/09/2023 Personality disorder, unspecified 07/09/2023 Parkinson's disease 01/30/2023 Last Assessment & Plan: Stable on Carbidopa-Levodopa Lower extremity edema 01/30/2023 Last Assessment & Plan: DTP of Lasix 60mg x 3 days, then resume 40mg daily. Diverticulitis of colon with perforation 023 Overview: Admission to [facility] 10/28. Last Assessment & Plan: Stable. Still having diarrhea -Continue Invanz until 11/19/22 with ID at [facility] [place]Encouraged hydration Lymphedema 09/07/2022 Aneurysm of ascending aorta without rupture 11/2022 Last Assessment & Plan: Continue to monitor Acute pyelonephritis 08/12/2022 Last Assessment & Plan: Received Rocephin 1 g IV in the emergency department -prescription for Omnicef 300 mg twice daily for 7 days. Recommend extending this for at least a total of 10 days. -Re-evaluation next week Closed Hill-Sachs fracture of right humerus 03/2022 Last Assessment & Plan: Followed by ortho. Pt will proceed with surgery if we can get edema under control and cellulitis cleared up Chronic pain syndrome 05/16/2022 Last Assessment & Plan: Per PCP (appointment 11/05) History of pulmonary embolism 05/16/2022 Last Assessment & Plan: Warfarin on hold (supratherapeutic) Iron deficiency anemia 05/16/2022 Last Assessment & Plan: 04/28/22--hgb 8.2 Upcoming hematology appt. Hypertensive heart disease w ith chronic diastolic congestive heart failure 05/15/2022 Last Assessment & Plan: Heart Failure "RED FLAG" HF Symptoms: o Leg Swelling (Examples: "I can't wear certain socks or shoes", "My pants feel tight") Current Heart Failure Classifications: o No symptoms ([employer] [place] [employer] CLASS I) Medication Regimen: o Beta Alejandro Therapy: Metoprolol Succinate (ER) o LLUVIA Inhibitor/ARB Therapy: Other: none o Diuretic therapy: Lasix o Diuretic Titration Protocol in place: No. 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 Last Assessment & Plan: 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 Major depressive disorder, recurrent, mild 04/30 Last Assessment & Plan: Continue remeron Chronic diastolic (congestive) heart failure Monoallelic mutation of COL3A1 gene 02/03/2018 Senile osteoporosis 10/23/2017 Thyroid nodule 03/20/2017 Gastroesophageal reflux disease without esophagi tis 03/20/2017 Last Assessment & Plan: Managed with omeprazole Gastroparesis 03/06/2017 Intestinal malabsorption following gastrectomy 0 02/08/2017 Last Assessment & Plan: Continue supplements H/O gastric bypass 02/08/2017 BRANDIE on CPAP 02/08/2017 Vitamin D deficiency 01/04/2016 Dyslipidemia 08/08/2012 Overview: ICD-10 update of inactive term Last Assessment & Plan: Continue atorvastatin Fibromyalgia 06/05/2012 Last Assessment & Plan: Buprenorphine 15 MCG/HR Transdermal Patch Weekly Percocet 5/325mg TID prn < pt asking for refill of percocet today. Advised this will have to come through PCP, [facility] does not participate in chronic pain management. 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 Surveillance. Mild persistent asthma without complication 06/08 Last Assessment & Plan: Stable Continue Robb Lobo.[email or web address], Advair Restless legs syndrome Last Assessment & Plan: Well controlled on Ropinirole 2.5 TID HTN, goal below 130/80 documented as of this encounter (statuses as of 07/26/2023) Resolved Problems Problem Noted Date Diagnosed Date Resolved Date Type 2 diabetes mellitus wit h autonomic neuropathy 01/30/2023 07/09/2023 Cellulitis 01/30/2023 06/06/2023 Protein C deficiency 05/16/2022 023 Last Assessment & Plan: On warfarin Parkinson's disease 03/08/2022 08/12/19 23 Type 2 diabetes mellitus wit h hemoglobin A1c goal of less than 8.0% 03/08/2022 05/15/2022 Food insecurity 09/18/2021 03/22/2022 Overview: Per [facility] Protocol Parkinson's disease 12/22/2019 09/27/19 21 Iron deficiency 07/31/2019 11/06/2020 Hypothyroidism due to acquir ed atrophy of thyroid 07/22/2019 12/02/2019 Morbid obesity with BMI of 40.0-44.9, adult 09/12/2018 03/22/2022 Hypertensive heart disease w ith chronic diastolic congestive heart failure 05/26/201809/16 Bleeding disorder 05/20/2018 09/19/2018 Class 3 severe obesity due t o excess calories with body mass index (BMI) of 40.0 to 44.9 in adult 04/30/2018 09/12/2018 Pulmonary embolism and infarction 04/30/2018 03/03/2019 Acquired hypothyroidism 04/07/2018 1003/2018 Localized edema 06/18/2017 03/03/2019 Malaise and fatigue 06/18/2017 01/01/20 18 Primary osteoarthritis of fi rst carpometacarpal joint of left hand 04/09/201711/05 BMI 40.0-44.9, adult 03/20/2017 018 Secondary hyperparathyroidism, non-renal 03/20/2017 07/09/2023 Last Assessment & Plan: Stable Major depressive disorder, s eladio episode, severe 03/20/2017 03/20/2017 Family history of colonic polyps 03/06/2017 03/20/2017 Adenomatous polyp of colon 02/08/2017 0 04/05/2017 Sleep walking 02/08/2017 05/05/2018 Imbalance 02/06/2016 02/08/2017 Slow transit constipation 02/06/2016 Status post total bilateral knee replacement 6 12/31/2017 Drug therapy discontinued 12/20/2015 Status post total left knee replacement 08/30/2015 02/08/2017 Moderate obstructive sleep apnea 11/13/2012 02/08/2017 Overview: Start 2 LPM during sleep, stop CPAP due to intolerance 02/27/13 CPAP -- auto 9 cwp 02/20/13 CPAP/RA -- low 91%, mean 95%, 4.5 hrs testing, EFREN 3 11/18/12 -- CPAP started 11/03/12 PSG -- AHI 18.8, 114 mins less than 89% [facility] Depression 01/28/2012 09/12/2018 Generalized osteoarthritis 12/26/2010 0 03/03/2019 Palpitations 09/15/2010 02/08/2017 Retinal edema 04/19/2010 02/08/2017 Ventral hernia, unspecified, without mention of obstruction or gangrene 01/16/2010 08/26/2011 Osteoporosis 11/21/2009 10/23/2017 Current tear of medial carti amanda or meniscus of knee 05/06/2009 08/25/2012 Primary localized osteoarthrosis, lower leg 05/06/2009 02/08/2017 Abnormal involuntary movement 07/05/2008 Spina bifida 03/20/2017 Acute pancreatitis 1 Anemia 02/08/2017 Uterine leiomyoma 03/20/2017 Pathological fracture of lower leg 03/20/2017 Closed dislocation of shoulder 04/22/2017 Hypotension 10/31/2009 Special screening for osteoporosis 11/21/2009 Overview: dexa scan MORBID OBESITY- sp gastric bypass 02/08/2017 Vasodepressor syncope 2017 documented as of this encounter (statuses as of 07/26/2023) Immunizations Name Administration Dates Next Due COVID-19 mRNA, LNP-s, No Pre serve, 2-Dose Series ([employer]) 07/07/2021,10/04/2020,09/07/2020 Hepatitis B, 20+ yrs 11/05/2004,07/08/1995 PPD 01/25/2008 Pneumococcal Conjugate Vacc, 13 Valent (Prevnar) 06/10/2015 Pneumococcal Conjugate Vacci ne, 20-valent ([id number]) 06/06/2023 Pneumococcal Polysaccharide PPV23 (Pneumovax) 06/07/2019,12/26/2007 Seasonal Influenza Virus Vac cine, Unspecified Formulation 06/19/2021 Seasonal Influenza, PF, 6 M & above, IM , (FluLaval or Fluzone) 04/14/2020,03/17/2018,04/22/2017 Seasonal Influenza, Quadriva lent Hd (Fluzone Hd) 04/25/2023,06/05/2022,06/19/2021 Seasonal Influenza, Quadriva lent, No Preserve, IM 03/27/2016 Seasonal Influenza, Split, I IV3, With Preserve, Inj 03/11/2015,03/15/2014,03/26/2013,03/24,03/15/2011,04/12/2010,03/15/2009 ,05/17/2008,01/25/2008 Seasonal Influenza, Trivalen t, High Dose, No Preserve, IM 06/07/2019 TD - Tetanus/Diptheria (ADULT) 04/02/2008,1997 TD, Preservative Free 06/27/2020,04/02/2008 TDAP (age 10 and older)(Boostrix) 06/01/2013 Varicella Zoster Vaccine (Adult) 06/05/2012 Zoster Vaccine Recombinant (Shingrix) 01/01/2019 ,08/06/2018 documented as of this encounter Social History Tobacco Use Types Packs/Day Years Used Date Smoking Tobacco: Never Passive Smoke Exposure: Never Smokeless Tobacco: Never Alcohol Use Standard Drinks/Week Comments Yes 0 (1 standard drink = 0.6 oz pur e alcohol) usually at a holiday, rare PHQ-2 Answer Date Recorded PHQ Adult Total Score 6 04/29/2023 Hunger Vital Sign Answer Date Recorded Within the past 12 months, y ou worried that your food would run out before you got the money to buy more. Never true 12/26/19 23 Within the past 12 months, t he food you bought just didn't last and you didn't have money to get more. Never true 12/25/2022 Sex and Gender Information Value Date Recorded Sex Assigned at Female 11/11/2018 2:57 PM EDT Gender Identity Female 11/11/2018 2:57 PM EDT Sexual Orientation Straight 02/23/2021 10 :18 AM EDT Job Start Date Occupation Industry Not on file Not on file Not on file documented as of this encounter Progress Notes * Cintia Doe, [facility] located within [facility] - 07/26/2023 11:02 AM EST Images from the original note were not included. Medication Therapy Disease Management - Anticoagulation Patient: Bonnie Oneal | : 1950 Senior Living/SNF Patient Anticoagulation Encounter Patient is a resident at: [facility] -- Fax sent to number listed above detailing plan of care below. Please notify clinic with any unusual brusing or bleeding, N/V/D, medication or diet changes or anymissed or extra doses of Coumadin. Subjective Patient-Reported Symptoms: Objective Current Warfarin Dose As of 07/26/2023 Warfarin maintenance plan: 6 mg (2 mg x 3) every Mon, Wed, Fri; 4 mg (2 mg x 2) all other days INR Result As of 07/26/2023 INR goal: 2.0-3.0 INR used for dosin.4 (07/25/2023) Assessment & Plan Warfarin Plan As of 07/26/2023 Full warfarin instructions: 07/26: 8 mg; Otherwise 4 mg every Tue, Kelsey, Sat; 6 mg all other days Next INR check: 08/01/2023 Repeat PT/INR in 1 week(s) Weekly dose: increased Additional Dosing Information: Description Colonoscopy 08/28/23 [facility] Clinical Pharmacist 07/26/2023, 11:02 AM * Sara Roberts PHARM Tech - 07/26/2023 7:18 AM EST Incoming fax from [facility]. Pts INR was drawn on 07/25/23. INR = 1.4 documented in this encounter Plan of Treatment Upcoming Encounters Date Type Department Care Team (Late st Contact Info) Description 07/29/2023 5:30 PM EST Home Visit [facility] [address] [place] [address] Sonja Robledo, RN [address] [place] [phone] 08/15/2023 4:15 PM EST Imaging Radiology [address] [place] [address] 08/28/2023 8:30 AM EST Procedure Only Endoscopy, [facility] [address] [place] [address] May Elder, [address] [place] [address] 08/29/2023 1:40 PM EST Office Visit [facility] [address] [facility], [place] [phone] Debbie Otero PA-C [address] [facility], [place] [address] 09/03/2023 10:15 AM EST Office Visit [facility], [facility] [address] [place] [address] Jeffery Rodríguez, DO [address] [place] [address] 09/11/2023 11:00 AM EST Office Visit [facility], [place] [address] [facility], [place] [phone] Debbie Otero PA-C [address] [facility], [place] [address] 09/18/2023 11:00 AM EDT Office Visit Orthopaedics [facility] [address] [place] [address] Gus Guillen, DO [address] [place] [address] 09/25/2023 10:00 AM EDT Office Visit Hematology/Oncology [facility] [address] [facility] [place] [address] Kojo Turner MD [address] [facility] [place], [place] [address] 09/27/2023 8:40 AM EDT Office Visit [facility], [place] [address] [facility], [place] [phone] Debbie Otero PA-C [address] [facility], [place] [address] 10/21/2023 2:00 PM EDT Office Visit [facility], [place] [address] [facility], [place] [phone] Debbie Otero PA-C [address] [facility], [place] [address] 11/18/2023 8:40 AM EDT Office Visit [facility], [place] [address] [facility], [place] [phone] Debbie Otero PA-C [address] [facility] [address] 12/31/2023 11:00 AM EDT Office Visit Cardiology, [facility] [address] [place] [address] Patriica Knott CRNP [address] [place] [address] 05/05/2024 10:00 AM EDT Nurse Only Ancillary Department, [place] [address] [place] [address] Nurse Dagoberto [facility] [address] [facility] [place] [address] Health Maintenance Due Date Last Done Comments Hepatitis B (3 of 3 - Risk 3-dose series) 12/31/2004 11/05/2004, 07/08/1995 Mammogram 10/17/2022 10/17/2021, 09/06, 02/27/2019, Additional history exists DXA Scan 12/13/2022 12/13/2020, 11/05, 08/20/2016, Additional history exists COLONOSCOPY-EVERY 3 YRS AGES 18-100 01/04/2023 01/05/2020, 01/03/2017, 01/03/2017, Additional history exists COVID-19 Vaccine ( season) 2023 07/07/2021, 10/04/2020, 09/07/2020 TSH 04/25/2024 04/25/2023, 02/07, 08/30/2022, Additional history exists Depression Screening 04/29/2024 04/29/2023 GFR 05/13/2024 05/13/2023, 04/07, 04/22/2023, Additional history exists Lipid Panel 09/05/2025 09/05/2020, 06/08, 05/05/2018, Additional history exists Albumin/Creatinine Ratio 03/06/2026 023, 10/17/2021, 06/19/2017 DTaP,Tdap,and Td Vaccines (3 - Td or Tdap) 06/27/2030 06/27/2020, 06/01/2013, 04/02/2008, Additional history exists Diabetic Eye Exam Discontinued 11/02/2014, , 11/02/2014, Additional history exists Zoster Vaccines Completed 01/01/2019, 07/10, 06/05/2012 VITAMIN D LEVEL ONCE IN A LIFETIME-USE SMARTSET# [id number] Completed 11/21/2021, 06/06/2020, 02/16/2020, Additional history exists Influenza Vaccine (FLU shot) Completed 04/25/2023, 06/05/2022, 06/19/2021, Additional history exists Diabetic Foot Exam Discontinued 04/29/2023 Pneumococcal Vaccine: 65+ Years Completed 06/06/2023, 06/07/2019, 06/10/2015, Additional history exists GARDASIL-HPV IMMUNIZATION SERIES Aged Out No longer eligible based on patient's age to complete this topic MENINGOCOCCAL (MENACTRA/MENVEO) Aged Out No longer eligible based on patient's age to complete this topic documented as of this encounter Medical Devices Not on filedocumented as of this encounter Procedures Procedure Name Priority Date/Time Associated Diagnosis Comments OUTSIDE LAB-PT/INR Routine 07/25/2023 documented in this encounter Results * OUTSIDE LAB-PT/INR (07/25/2023) INR-OUTSIDE LAB 1.4 History Per Patient LABORATORY documented in this encounter Visit Diagnoses Diagnosis Superficial vein thrombosis- Primary Acute venous embolism and thrombosis of other specified veins documented in this encounter Advance Directives Healthcare Agents on File Name Relationship Healthcare Agent Relationship Communication Erica Nunes Other - (no specific identity) Health Care High Speed Warper Tender (appointed verbally by patient or by statute hierarchy) Care Teams Turkey Picker Relationship Specialty Start Date End Date Lavern Gomez DO [address] [place] [phone] PCP - General Family Medicine 10/27/22 documented as of this encounter
--- OUTSIDE RECORDS SUMMARY | 2023-07-29 04:44 | External Medical Summary | Summary of Care ---
Author Name Unknown Organization [facility] Address [address] [place] [address] Phone [phone] Care Team Providers Care Drawbench Operator Name Role Phone Lavern Gomez DO Primary Care Provider [phone] Reason for Visit * Reason Onset Date Comments Status Check 07/25/2023 Encounter Details Date Type Department Care Team (Late st Contact Info) Description 07/25/2023 Telephone [facility] [address] [place] [address] Lavern Gomez DO [address] [place] [address] Status Check Allergies Active Allergy Reactions Criticality Noted Date [...] as of this encounter (statuses as of 07/25/2023) Medications Medication Sig Dispensed Refills Start Date End Date Status Vitamin D, Ergocalciferol, 68642 UNITS Capsule Take 1 Cap by mouth [...] bypass,Vitamin B 12 deficiency 1000 mcg IM [id number] 09/07/2022 08/09/2023 Active documented as of this encounter (statuses as of 07/25/2023) Active Problems Problem Noted Date Diagnosed Date Opioid dependence, uncomplicated 07/09/2023 Personality disorder, unspecified 07/09/2023 Parkinson's disease 01/30/2023 Last Assessment & Plan: Stable on Carbidopa-Levodopa Lower extremity edema 01/30/2023 Last Assessment & Plan: DTP of Lasix 60mg x 3 days, then resume 40mg daily. Diverticulitis of colon with perforation 023 Overview: Admission to [facility] 10/28. Last Assessment & Plan: Stable. Still having diarrhea -Continue Invanz until 11/19/22 with ID at [facility] -Encouraged hydration Lymphedema 09/07/2022 Aneurysm of ascending [...] 05/07/2018 Last Assessment & Plan: Followed by magnetic observer Major depressive disorder, recurrent, mild 04/30 Last [...] this will have to come through PCP, [facility] does not participate in chronic pain management. 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 Surveillance. Mild persistent asthma without complication 06/08 Last Assessment & Plan: Stable Continue Robb Lobo p.r.n., Advair Restless legs syndrome Last Assessment & Plan: Well controlled on Ropinirole 2.5 TID HTN, goal below 130/80 documented as of this encounter (statuses as of 07/25/2023) Resolved Problems Problem Noted Date Diagnosed Date [...] as of this encounter (statuses as of 07/25/2023) Immunizations Name Administration Dates Next Due COVID-19 mRNA, LNP-s, No Pre serve, 2-Dose Series (The Pyromaniac) 07/07/2021,10/04/2020,09/07/2020 Hepatitis B, 20+ yrs 11/05/2004,07/08/1995 PPD 01/25/2008 Pneumococcal Conjugate Vacc, 13 Valent (Prevnar) 06/10/2015 Pneumococcal Conjugate Vacci ne, 20-valent ([id number]) 06/06/2023 Pneumococcal Polysaccharide PPV23 (Pneumovax) 06/07/2019,12/26/2007 Seasonal [...] on file documented as of this encounter Miscellaneous Notes * Telephone Encounter - Katie David PHARM Tech - 07/25/2023 1:08 PM EST Pt calling to request Buprenorphine 15 MCG/HR Transdermal Patch Weekly . Informed pt that RX is available at their pharmacy. Pt verbalized understanding and stated they will check with their pharmacyregarding this medication. [facility] you, [facility] Process Treater II [facility] ([facility]) (formerly Telepharmacy) 07/25/2023,1:08 PM documented in this encounter Plan of Treatment Upcoming Encounters Date Type Department Care Team (Late st Contact Info) Description 07/25/2023 5:40 PM EST Anticoagulation Pharmacy Call Center [phone] [place] [phone] Ccp, [facility] 58 60 [facility] [place] [address] 07/29/2023 5:30 PM EST [facility], [facility] [address] [place] [address] Sonja Robledo RN [address] [place] [address] 08/15/2023 4:15 PM EST Imaging Radiology [facility] [address] [place] [address] 08/28/2023 8:30 AM EST Procedure Only Endoscopy, [facility] [address] [place] [address] May Elder, DO [address] [place] [address] 08/29/2023 1:40 PM EST Office Visit [facility] [place] [address] [facility] [phone] Debbie [facility]tero PA-C [address] [facility] [address] 09/03/2023 10:15 AM EST Office Visit Interventional Pain Center, [facility] [address] [place] [address] Jeffery Rodríguez, DO [address] [place] [address] 09/11/2023 11:00 AM EST Office Visit [facility] [address] [facility] [phone] Debbie [facility]tero PA-C [address] [facility] [address] 09/18/2023 11:00 AM EDT Office Visit Orthopaedics [facility] [address] [facility] [place] [address] Gus Guillen, DO [address] [place] [address] 09/25/2023 10:00 AM EDT Office Visit Hematology/Oncology [facility] [place] [address] [facility] [address] [place] [address] Kojo Turner MD [address] [facility] [place] [address] 09/27/2023 8:40 AM EDT Office Visit Family Practice, [place] [address] [facility], [place] [phone] Debbie Otero PA-C [address] [facility], [place] [address] 10/21/2023 2:00 PM EDT Office Visit Family Practice, [place] [address] [facility], [place] [address] Debbie Otero PA-C [address] [facility], [place] [phone] 11/18/2023 8:40 AM EDT Office Visit Family Practice, [place] [address] [facility], [place] [phone] Debbie Otero PA-C [address] [facility], [place] [address] 12/31/2023 11:00 AM EDT Office Visit Cardiology, [facility] [address] [place] [address] Patricia Knott CRNP [address] [place] [address] 05/05/2024 10:00 AM EDT Nurse Only Ancillary Department, [place] [address] [facility], [place] [address] [place], Nurse Annual Wellness [address] [facility], [place] [address] Health Maintenance Due Date Last Done Comments Hepatitis B (3 of 3 - Risk 3-dose series) 12/31/2004 11/05/2004, 07/08/1995 Mammogram 10/17/2022 10/17/2021, 09/06, 02/27/2019, Additional history exists DXA Scan 12/13/2022 12/13/2020, 11/05, 08/20/2016, Additional history exists COLONOSCOPY-EVERY 3 YRS AGES 18-100 01/04/2023 01/05/2020, 01/03/2017, 01/03/2017, Additional history exists COVID-19 Vaccine (2022- season) 2023 07/07/2021, 10/04/2020, 09/07/2020 TSH 04/25/2024 [...] D LEVEL ONCE IN A LIFETIME-USE SMARTSET# [id number] Completed 11/21/2021, 06/06/2020, 02/16/2020, Additional history exists [...] Not on filedocumented as of this encounter Advance Directives Healthcare Agents on File Name Relationship Healthcare Agent Relationship Communication Erica Nunes Other - (no specific identity) Health Care Advance Seal Delivery System Maintainer (appointed verbally by patient or by statute hierarchy) Care Teams Drawbench Operator Relationship Specialty Start Date End Date Lavern Gomez DO [address] [place] [address] PCP - General Family Medicine 10/27/22 documented as of this encounter
--- OUTSIDE RECORDS SUMMARY | 2023-07-29 04:44 | External Medical Summary | Summary of Care ---
Author Name Unknown Organization [facility] Address [address] [place] [address] Phone [phone] Care Team Providers Care Carbon Electrodes Supervisor Name Role Phone Lavern Gomez DO Primary Care Provider + [phone] Encounter Details Date Type Department Care Team (Late st Contact Info) Description 07/25/2023 Result Scan Unspecified Department Lavern Gomez DO [address] [place] [address] <No scans attached> Allergies Active Allergy Reactions Criticality Noted Date [...] Date End Date Status Vitamin D, Ergocalciferol, 07067 UNITS Capsule Take 1 Cap by mouth [...] bypass,Vitamin B 12 deficiency 1000 mcg IM [id number] 09/07/2022 08/09/2023 Active documented as of this [...] colon with perforation 023 Overview: Admission to [facility] 10/28. Last Assessment & Plan: Stable. 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 Surveillance. Mild persistent asthma without complication 06/08 Last Assessment & Plan: Stable Continue Robb Lobo, Sylvain Restless legs syndrome Last Assessment & Plan: [...] embolism and infarction 04/30/2018 03/03/2019 Acquired hypothyroidism 04/07/201804/08 Localized edema 06/18/2017 03/03/2019 Malaise and fatigue [...] mRNA, LNP-s, No Pre serve, 2-Dose Series (Verve Mobile) 07/07/2021,10/04/2020,09/07/2020 Hepatitis B, 20+ yrs 11/05/2004,07/08/1995 PPD 01/25/2008 Pneumococcal Conjugate Vacc, 13 Valent (Prevnar) 06/10/2015 Pneumococcal Conjugate Vacci ne, 20-valent ([id number]) 06/06/2023 Pneumococcal Polysaccharide PPV23 (Pneumovax) 06/07/2019,12/26/2007 Seasonal [...] on file documented as of this encounter Plan of Treatment Upcoming Encounters Date Type Department Care Team (Late st Contact Info) Description 07/26/2023 5:40 PM EST Anticoagulation Pharmacy Call Center [phone] [facility] [place] [phone] Ccps, [facility] 58 60 [facility] [place] [address] Superficial vein thrombosis* 07/29/2023 5:30 PM EST Home Visit [facility] 132 [place] [address] Sonja Robledo RN [address] [place] [address] 08/15/2023 4:15 PM EST Imaging Radiology [address] 132 [place] [address] 08/28/2023 8:30 AM EST Procedure Only Endoscopy, [facility] [address] [place] [address] May Elder DO [address] [place] [address] 08/29/2023 1:40 PM EST [address] [phone] Debbie Otero PA-C [address] [facility], [place] [address] 09/03/2023 10:15 AM EST Office Visit Interventional Pain Center, [facility] [address] [place] [address] Jeffery Rodríguez, DO [address] [place] [address] 09/11/2023 11:00 AM EST Office [facility] [place] [address] [facility] [phone] Debbie Otero PA-C [address] [facility] [address] 09/18/2023 11:00 AM EDT Office Visit Orthopaedics [facility] [address] [facility] [place] [address] Gus Guillen, DO [address] [facility] [place] [address] 09/25/2023 10:00 AM EDT Office Visit Hematology/Oncology [facility] [address] [place] [address] Kojo Turner MD [address] [place] [address] 09/27/2023 8:40 AM EDT Office Visit [facility] [place] [address] [facility] [phone] Debbie Otero PA-C [address] [facility] [address] 10/21/2023 2:00 PM EDT Office Visit Family [facility], [place] [address] [facility], [place] [address] Debbie Otero PA-C [address] [facility], [place] [address] 11/18/2023 8:40 AM EDT Office Visit [facility], [place] [address] [facility] [phone] Debbie Otero PA-C [address] [facility] [address] 12/31/2023 11:00 AM EDT Office Visit Cardiology, [facility] [address] [place] [address] Patricia Knott CRNP [address] [place] [address] 05/05/2024 10:00 AM EDT Nurse Only Ancillary Department, [place] [address] [facility] [address] [place], Nurse Annual Wellness [address] [facility] [address] Health Maintenance Due Date Last Done Comments [...] D LEVEL ONCE IN A LIFETIME-USE SMARTSET# [id number] Completed 11/21/2021, 06/06/2020, 02/16/2020, Additional history exists [...] Name Priority Date/Time Associated Diagnosis Comments OUTSIDE LAB RESULTS 07/25/2023 documented in this encounter Results * OUTSIDE LAB RESULTS (07/25/2023) 07/25/2023 Lavern Gomez DO LABORATORY documented in this encounter Advance Directives Healthcare Agents on File Name Relationship Healthcare Agent Relationship Communication Erica Fangbridge Other - (no specific identity) Health Care Title Closer (appointed verbally by patient or by statute hierarchy) Care Teams Carbon Electrodes Supervisor Relationship Specialty Start Date End Date Lavern Gomez DO [address] [place] [address] PCP - General Family Medicine 10/27/22 documented as of this encounter
--- OUTSIDE RECORDS SUMMARY | 2023-07-29 04:44 | External Medical Summary | Summary of Care ---
Author Name Unknown Organization [facility] Address [address] [place] [address] Phone [phone] Care Team Providers Care Executive Assistant Name Role Phone Lavern Gomez Butch BERNARD Primary Care Provider [phone] Reason for Visit * Reason Comments Dosage Adjustment Via Phone (anticoag Cl inic) Encounter Details Date Type Department Care Team (Latest Contact Info) Description 07/25/2023 5:40 PM EST Anticoagulation Pharmacy Call Center [address] [facility] [place] [address] [facility] [address] [facility] [place] [address] Superficial vein thrombosis* Allergies Active Allergy Reactions [...] Date End Date Status Vitamin D, Ergocalciferol, 66788 UNITS Capsule Take 1 Cap by mouth [...] bypass,Vitamin B 12 deficiency 1000 mcg IM [id number] 09/07/2022 08/09/2023 Active documented as of this [...] Invanz until 11/19/22 with ID at [facility] [place] -Encouraged hydration Lymphedema 09/07/2022 Aneurysm of [...] 05/07/2018 Last Assessment & Plan: Followed by agricultural equipment sales engineer Major depressive disorder, recurrent, mild 04/30 [...] this will have to come through PCP, [facility] does not participate in chronic pain [...] mRNA, LNP-s, No Pre serve, 2-Dose Series (WhoAPI) 07/07/2021,10/04/2020,09/07/2020 Hepatitis B, 20+ yrs 11/05/2004,07/08/1995 PPD 01/25/2008 Pneumococcal Conjugate Vacc, 13 Valent (Prevnar) 06/10/2015 Pneumococcal Conjugate Vacci ne, 20-valent ([id number]) 06/06/2023 Pneumococcal Polysaccharide PPV23 (Pneumovax) 06/07/2019,12/26/2007 Seasonal [...] of this encounter Progress Notes * Cintia Doe RPh - 07/25/2023 3:26 PM EST Medication Therapy Disease Management - Anticoagulation Patient: Bonnie Oneal | : 1950 [facility] Assisted/SNF Patient Anticoagulation Encounter Patient is a resident at: [facility] -- Fax sent to number listed above detailing plan of care below. INR drawn today but still in process. [facility] will follow up tomorrow with result/dosing. Please notify clinic with any unusual brusing or bleeding, N/V/D, medication or diet changes or anymissed or extra doses of Coumadin. Patient-Reported Symptoms: Objective Current Warfarin Dose As of 07/25/2023 Warfarin maintenance plan: 6 mg (2 mg x 3) every Mon, Wed, Fri; 4 mg (2 mg x 2) all other days INR Result As of 07/25/2023 INR goal: 2.0-3.0 INR used for dosing: No new INR was available at the time of this encounter. Assessment & Plan Warfarin Plan As of 07/25/2023 Full warfarin instructions: 6 mg every Mon, Wed, Fri; 4 mg all other days Next INR check: Additional Dosing Information: Description Colonoscopy 08/28/23 Cintia Doe RPh Clinical Pharmacist 07/25/2023, 3:26 PM * Sara Roberts premium service representative - 07/25/2023 3:19 PM EST Lab still in process at this time. Please advise. Thank you, Sara Roberts Information And Data Architect Analyst [facility] ([facility]) (formerly Telepharmacy) [phone] 07/25/2023,3:19 PM * Sara Roberts premium service representative - 07/25/2023 1:49 PM EST Spoke to [place] @ [facility]. Specimen has been received for pt, but is not yet in process. Will continue to check for result. Thank you, Sara Roberts Information And Data Architect Analyst [facility] (CCPS) (formerly Telepharmacy) [phone] 07/25/2023,1:50 PM documented in this encounter Plan of Treatment Upcoming Encounters Date Type Department Care Team (Late st Contact Info) Description 07/26/2023 5:40 PM EST Anticoagulation Pharmacy Call Center [address] [place] [address] [facility], [facility] 58 60 [facility] [place] [address] 07/29/2023 5:30 PM EST [facility], [facility] 132 [place] [address] Sonja Robledo, RN 132 [place] [address] 08/15/2023 4:15 PM EST Imaging Radiology [address] 132 [place] [address] 08/28/2023 8:30 AM EST Procedure Only Endoscopy, [facility] [address] [place] [address] May Elder, DO [address] [place] [address] 08/29/2023 1:40 PM EST Office Visit [facility] [address] [facility], [place] [phone] Debbie Otero PA-C [address] [facility], [place] [address] 09/03/2023 10:15 AM EST Office Visit Interventional Pain Center, [facility] [place] [address] Jeffery Rodríguez, DO [address] [place] [address] 09/11/2023 11:00 AM EST Office Visit [facility] [address] [facility], [place] [phone] Debbie Otero PA-C [address] [facility], [place] [address] 09/18/2023 11:00 AM EDT Office Visit Orthopaedics [facility] [address] [facility] [place] [address] Gus Guillen, DO [address] [facility] [place] [address] 09/25/2023 10:00 AM EDT Office Visit Hematology/Oncology [facility] [address] [place] [address] Kojo Turner MD [address] [place] [address] 09/27/2023 8:40 AM EDT Office Visit [facility], [place] [address] [facility], [place] [phone] Debbie Otero PA-C [address] [facility], [place] [address] 10/21/2023 2:00 PM EDT Office Visit [facility], [place] [address] [facility], [place] [phone] Debbie Otero PA-C [address] [facility], [place] [phone] 11/18/2023 8:40 AM EDT Office Visit [facility], [place] [address] [facility], [place] [phone] Debbie Otero PA-C [address] [facility], [place] [phone] 12/31/2023 11:00 AM EDT Office Visit Cardiology, [facility] 132 [facility] [place] [address] Patricia Knott CRNP 132 [facility] [place] [address] 05/05/2024 10:00 AM EDT Nurse Only Ancillary Department, [place] [address] [facility], [place] [address] [place], Nurse Annual Wellness [address] [facility], [place] [phone] Health Maintenance Due Date Last Done Comments Hepatitis B (3 of 3 - Risk 3-dose series) 12/31/2004 11/05/2004, 07/08/1995 Mammogram 10/17/2022 10/17/2021, 09/06, 02/27/2019, Additional history exists DXA Scan 12/13/2022 12/13/2020, 11/05, 08/20/2016, Additional history exists COLONOSCOPY-EVERY 3 YRS AGES 18-100 01/04/2023 01/05/2020, 01/03/2017, 01/03/2017, Additional history exists COVID-19 Vaccine (2022-24 season) 2023 07/07/2021, 10/04/2020, 09/07/2020 TSH 04/25/2024 [...] D LEVEL ONCE IN A LIFETIME-USE SMARTSET# [id number] Completed 11/21/2021, 06/06/2020, 02/16/2020, Additional history exists [...] Not on filedocumented as of this encounter Visit Diagnoses Diagnosis Superficial vein thrombosis- Primary Acute venous embolism and thrombosis of other specified veins documented in this encounter Advance Directives Healthcare Agents on File Name Relationship Healthcare Agent Relationship Communication Erica Fangbridge Other - (no specific identity) Health Care English Instructor (appointed verbally by patient or by statute hierarchy) Care Teams Executive Assistant Relationship Specialty Start Date End Date Lavern Gomez DO [address] [place] [address] PCP - General Family Medicine 10/27/22 documented as of this encounter
--- NOTE | 2023-07-29 04:47 | Emergency Department Note ---
History of Present Illness General Chief complaint: Fall Stated complaint: fall w/ head injury Time Seen by Provider: 07/29/23 04:37 History of Present Illness Maximum Pain Intensity: 10 This is a 73-year-old female presenting to the emergency department via EMS for evaluation of injuries after a fall that occurred just prior to arrival. The patient was in the bathroom at [facility], got up, and next thing she remembers she was laying on the ground. She attempted to activate her life alert product, however this did not work. She states that she was able to crawl out of the bathroom and to get to her phone, and was able to reach out for help. Patient does not believe that she lost consciousness however the event was not witnessed. Her past medical history is significant for pulmonary embolism, and for this is on blood thinners. She does have bruising to the right side of her head as well as to her right shoulder. 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 She has not had anything for pain and rates her discomfort a 10/10. She does not report any lightheadedness, dizziness, chest pain, chest tightness, or shortness of breath. No fevers or chills. She did have her Lyrica dose increased earlier this week, and per EMS this is her third fall in 4 days after the increase in the Lyrica. Home Medications Medication Instructions Recorded Confirmed Type atorvastatin 20 mg tablet 20 mg PO .@0801/09/22 07/29/23 History buprenorphine 15 mcg/hour weekly 1 patch topical WK 01/09/22 07/29/23 History transdermal patch carbidopa 25 mg-levodopa 100 mg 1 tab PO .0800,1200,1600,199901/09/22 07/29/23 History tablet fluticasone propionate 50 2 spray intranasal .@799,199901/09/22 07/29/23 History mcg/actuation nasal spray,suspension (Flonase Allergy Relief) hydroxyzine HCl 25 mg tablet 25 mg PO QID PRN ANXIETY/ITCHING 01/09/22 07/29/23 History levothyroxine 50 mcg tablet 50 mcg PO .@79901/09/22 07/29/23 History montelukast 10 mg tablet 10 mg PO .@199901/09/22 07/29/23 History Saccharomyces boulardii 250 mg 250 mg PO .@08,199910/03/22 07/29/23 History capsule (Florastor) warfarin 4 mg tablet 4 mg PO UD 10/03/22 07/29/23 History potassium chloride 20 mEq 20 meq PO .@1700 10/28/22 07/29/23 History tablet,extended release(part/cryst) potassium chloride 20 mEq 40 meq PO .@79910/28/22 07/29/23 History tablet,extended release(part/cryst) acetaminophen 500 mg tablet 1,000 mg PO Q8H PRN TEMP >100F/PAIN 12/10/22 07/29/23 History (Tylenol Extra Strength) loperamide 2 mg tablet 2 mg PO Q6H PRN Diarrhea 12/10/22 07/29/23 History metoprolol tartrate 25 mg tablet 12.5 mg PO .@79912/10/22 07/29/23 History midodrine 2.5 mg tablet 2.5 mg PO 12/10/22 07/29/23 History mirtazapine 30 mg tablet 30 mg PO .@199912/10/22 07/29/23 History ergocalciferol (vitamin D2) 25,000 50,000 unit PO .WED@79903/07/23 07/29/23 History unit capsule pregabalin 25 mg capsule (Lyrica) 75 mg PO .@0800,1500,199903/07/23 07/29/23 History omeprazole 20 mg tablet,delayed 40 mg PO .@79907/29/23 07/29/23 History release ropinirole 5 mg tablet 2.5 mg PO .@0800,1500,199907/29/23 07/29/23 History torsemide 20 mg tablet 20 mg PO .@1200 07/29/23 07/29/23 History torsemide 20 mg tablet 40 mg PO .@79907/29/23 07/29/23 History warfarin 6 mg tablet 6 mg PO 07/29/23 07/29/23 History Allergies Allergy/AdvReac Type Severity Reaction Status Date / Time ammonia Allergy Severe FACE, Verified 03/07/23 08:27 LIPS, TONGUE EDEMA buspirone Allergy Severe NEURO Verified 03/07/23 08:27 COMPLICATIONS duloxetine Allergy Intermediate RASH Verified 03/07/23 08:27 ITCHING adhesive Allergy Mild skin tears Verified 03/07/23 08:27 vancomycin Allergy Unknown ON MILI Verified 03/07/23 08:27 MED LIST diphenhydramine AdvReac Intermediate RESTLESS Verified 03/07/23 08:27 LEGS gabapentin AdvReac Intermediate MUSCLE Verified 03/07/23 08:27 STIFFNESS lisinopril AdvReac Intermediate cough Verified 03/07/23 08:27 NSAIDS (Non-Steroidal AdvReac Unknown not Verified 03/07/23 08:27 Anti-Inflamma supposed to use-S/P GASTRIC BYPASS venlafaxine AdvReac Unknown AFFECTS Verified 03/07/23 08:27 LEGS Past Med/Surg History Medical History (Updated 07/29/23 @ 22:13 by Rashawn Goodman PA-C) Recurrent falls Parkinson disease Acute kidney injury Acute exacerbation of chronic low back pain Opioid dependence Fibromyalgia Abdominal hernia Coagulopathy Hypokalemia Weakness Anemia History of DVT (deep vein thrombosis) chronic anticoagulation Protein C deficiency Dysphagia History of colon polyps Difficult intravenous access History of intestinal obstruction Bulging of intervertebral disc Osteoporosis Osteoarthritis Renal cyst History of colon polyps Gastroparesis Thyroid nodule Hearing deficit ADHD Peripheral neuropathy Tachycardia Hyperlipidemia Claustrophobia Sleep apnea intermittently able to tolerate CPAP Asthma uses PRN INH 3-4 x wk GERD (gastroesophageal reflux disease) Hypothyroidism Restless leg syndrome Edenilson-Danlos syndrome Pulmonary embolism 07/2018 - treated w/ lovenox - unk etiology Thoracic aortic aneurysm follows w/ Dr. Arredondo - evaluated within last 6 mo ISAC (generalized anxiety disorder) Surgical History Hx of melanoma excision shoulder Self extubation attempted post gastric bypass History of laparotomy History of left knee replacement History of intestinal surgery History of right knee joint replacement History of arthroscopy of left knee History of abdominoplasty + hernia repair History of bilateral breast reduction surgery History of cholecystectomy History of tonsillectomy History of gastric bypass History of esophagogastroduodenoscopy (EGD) History of colonoscopy Status post biopsy of thyroid gland benign S/P hysterectomy Family History Uncle Stomach cancer Other No family history of adverse response to anesthesia No pertinent family history in first degree relatives Social History Smoking Status: Never smoker Second Hand Exposure: No; Do You Dip or Chew Tobacco: No; Hx Alcohol Use: Yes Alcohol type: wine and hard liquor Hx Substance Use: No Preferred Language: Swazi Communication Ability: Effective Communication Ability Comment: pt is obtunded Visual Impairment: Limited Hearing Ability: Normal Billboard Installer Required: No Beliefs That Will Affect Care: None marital status: Single Current Living Situation: Personal Care Facility Current Living Situation Comment: Condo - First Floor, able to specify name of Apartment Complex. How many Children do You have: 0 Feels Safe at Home: Yes Safety Concerns: Feels Safe At This Time Assistive Devices: Cane, Glasses, Scooter/Electric Scooter and Walker Review of Systems A total of 10 systems reviewed and were otherwise negative Physical Exam Vital Signs Vital Signs - 24 hr 07/29/23 04:34 07/29/23 04:48 07/29/23 04:50 Temperature 36.8 C Temperature Source Oral Pulse Rate 72 59 L Pulse Rate [Radial] Respiratory Rate 16 Respiratory Effort / Characteristics Non-Labored Spontaneous Respiratory Depth Normal Respiratory Pattern Regular Blood Pressure 169/103 H Blood Pressure Mean 125 Pulse Oximetry 97 95 Oxygen Delivery Method Room Air Room Air Sepsis Recent Fever Within 48 Hours No Sepsis New/Unexplained Change in Mental Status N/A Sepsis Action Taken by Nursing No Action Required 07/29/23 06:34 Temperature Temperature Source Pulse Rate Pulse Rate [Radial] 72 Respiratory Rate 17 Respiratory Effort / Characteristics Non-Labored Spontaneous Respiratory Depth Normal Respiratory Pattern Regular Blood Pressure Blood Pressure Mean Pulse Oximetry 97 Oxygen Delivery Method Room Air Sepsis Recent Fever Within 48 Hours Sepsis New/Unexplained Change in Mental Status Sepsis Action Taken by Nursing VITALS: Vitals are noted on the nurse's note and reviewed by myself. Vital signs stable. GENERAL: Elderly white female who is answering questions appropriately. HEAD: Ecchymosis with small hematoma noted to the right superior lateral forehead. No active laceration noted. No Yoon sign or raccoon eyes. EYES: Pupils equal round and reactive to light and accommodation. Conjunctivae without injection, sclerae without icterus. Extraocular movements intact. NOSE: No epistaxis MOUTH: Mucous membranes moist. Tonsils are not enlarged. NECK: Supple without nuchal rigidity. No lymphadenopathy. No thyromegaly. Cervical spine is nontender. HEART: Regular rate and rhythm without murmurs gallops or rubs. LUNGS: Clear to auscultation bilaterally without wheezes, rales or rhonchi. No retractions or accessory muscle use. ABDOMEN: Positive normal bowel sounds x 4. Soft, nontender, without masses or organomegaly. No guarding or rebound tenderness. MUSCULOSKELETAL: Ecchymosis noted to the posterior lateral aspect of the right shoulder. Range of motion is limited secondary to patient's chronic subluxation/dislocation. Neurovascular status appears intact distally. NEURO: Patient was alert and oriented to person place and time. CN II through XII grossly intact. GCS 15 Course Administered Medications Carbidopa/Levodopa (Carbidopa/Levodopa 25/100mg Tab) 1 tab PO QID@0800,1200,1600,1999 [facility] Stop: 08/28/23 17:59 Last Admin: 07/29/23 21:48 Dose: 1 tab Documented By: Admin: 07/29/23 18:30 Dose: 1 tab Documented By: ANETTE Fluticasone Propionate (Fluticasone Propionate Na Spr 16 Gm Btl) 2 sprays ELYSE BID@799,1999 [facility] Stop: 08/28/23 19:59 Last Admin: 07/29/23 21:44 Dose: 2 sprays Documented By: OSITO Heparin Sodium/Dextrose (Heparin Sodium/Dextrose) 25,000 units in 500 mls @ 14 mls/hr IV .Q24H [facility]; Protocol Stop: 08/28/23 18:14 Last Admin: 07/29/23 19:27 Dose: 700 units/hr, 14 mls/hr Documented By: ANETTE Co-signed By: OSITO Mirtazapine (Mirtazapine Tab 15 Mg Tab) 30 mg PO DAILY@1999 [facility] Stop: 08/28/23 19:59 Last Admin: 07/29/23 21:45 Dose: 30 mg Documented By: OSITO Montelukast Sodium (Montelukast Sodium 10 Mg Tablet) 10 mg PO DAILY@1999 [facility] Stop: 08/28/23 19:59 Last Admin: 07/29/23 21:48 Dose: 10 mg Documented By: OSITO Oxycodone/Acetaminophen (Oxycodone/Acetaminophen 5mg/325mg Tab) 1 tab PO Q6H PRN PRN Reason: Severe Pain (Scale 7, 8, 9,10) Stop: 08/12/23 17:31 Last Admin: 07/29/23 18:23 Dose: 1 tab Documented By: ANETTE Ropinirole HCl (Ropinirole Hcl 2 Mg Tablet) 5 mg PO TID@0800,1499,1999 [facility] Stop: 08/28/23 17:59 Last Admin: 07/29/23 21:46 Dose: 5 mg Documented By: Admin: 07/29/23 18:30 Dose: 5 mg Documented By: ANETTE Saccharomyces Boulardii (Saccharomyces Boulardii 250 Mg Cap) 250 mg PO BID@0800,1999 [facility] Stop: 08/28/23 19:59 Last Admin: 07/29/23 21:48 Dose: 250 mg Documented By: OSITO Discontinued Medications Heparin Sodium/Dextrose (Heparin Iv Adult Wt-Based Low-Dose *No* Initial Bolus Protocol) 1 each IV ONE STA; Protocol Stop: 07/29/23 18:01 Last Admin: 07/29/23 19:21 Dose: Not Given Documented By: ANETTE Sodium Chloride (Nss) 1,000 mls @ 999 mls/hr IV .Q1H1M [facility] Stop: 07/29/23 08:00 Last Infusion: 07/29/23 08:28 Dose: Infused Documented By: Admin: 07/29/23 07:25 Dose: 999 mls/hr Documented By: BEN Ceftriaxone Sodium 2,000 mg/ (Dextrose) 50 mls @ 100 mls/hr IV ONE ONE; Protocol Stop: 07/29/23 18:29 Last Infusion: 07/29/23 18:59 Dose: Infused Documented By: Admin: 07/29/23 18:29 Dose: 100 mls/hr Documented By: ANETTE Medical Decision Making Differential Diagnosis Differential diagnosis includes, but is not limited to: Sprain, strain, fracture, dislocation, subluxation, contusion, and others Laboratory Data 07/29/23 19:50 07/29/23 05:18 Lab Results 07/29/23 07/29/23 Range/Units 05:18 07:51 WBC 10.44 (4.8-10.8) K/ul RBC 4.20 (4.20-5.40) M/uL Hgb 12.2 (12.0-16.0) g/dl Hct 39.0 (37.0-47.0) % MCV 92.9 (80.0-100.0) fL MCH 29.0 (25.0-34.0) pg MCHC 31.3 L (32.0-36.0) g/dL RDW Std Deviation 51.5 H (36.4-46.3) fL RDW Coeff of Neftaly 15.0 H (11.5-14.5) % Plt Count 252 (130-400) K/uL MPV 10.8 (9.4-12.4) fL Immature Gran % (Auto) 0.9 % Neut % (Auto) 85.3 % Lymph % (Auto) 5.9 % [place] % (Auto) 7.7 % Eos % (Auto) 0.1 % Baso % (Auto) 0.1 % Neut # (Auto) 8.91 H (1.40-6.50) K/uL Lymph # (Auto) 0.62 L (1.20-3.40) K/uL [place] # (Auto) 0.80 H (0.11-0.59) K/uL Eos # (Auto) 0.01 (0.00-0.50) K/uL Baso # (Auto) 0.01 (0.00-0.20) K/uL Immature Gran # (Auto) 0.09 (0.01-0.20) K/uL PT 17.3 H (9.0-12.0) Seconds INR 1.6 H (0.9-1.1) APTT 32 H (21-31) Seconds PTT Ratio 1.1 Sodium 138 (136-145) mmol/L Potassium 3.5 (3.5-5.1) mmol/L Chloride 103 (98-107) mmol/L Carbon Dioxide 27 (21-32) mmol/L Anion Gap 8 (3-11) BUN 59 H (6-23) mg/dl Creatinine 1.07 (0.6-1.2) mg/dl Est Cr Clr Drug Dosing 50.3 ml/min Est GFR ( Amer) 59.6 ml/min Est GFR (Non-Af Amer) 51.5 ml/min BUN/Creatinine Ratio 55.1 H (10-20) Glucose 110 H (70-99(Fasting)) mg/dl Calcium 9.3 (8.6-10.3) mg/dl Total Bilirubin 0.5 (0.2-1.0) mg/dl AST 25 (13-39) U/L ALT 6 L (7-52) U/L Alkaline Phosphatase 141 H (34-104) U/L Troponin I High Sens 17.0 H 18.1 H (0-14) pg/ml Total Protein 6.9 (6.0-8.3) gm/dl Albumin 4.0 (3.4-5.0) gm/dl Globulin 2.9 (2.5-4.0) gm/dl Albumin/Globulin Ratio 1.4 (0.9-2) Imaging Data Radiologist's Impression: Cervical Spine CT 07/29/23 04:42 Exam(s): CT C SPINE EXAM: CT Cervical Spine Without Intravenous Contrast CLINICAL HISTORY: Reason for exam: fall. TECHNIQUE: Axial computed tomography images of the cervical spine without intravenous contrast. CTDI is 23.37 mGy and DLP is 377.09 mGy-cm. Automated exposure control was utilized for the study. A dose lowering technique was utilized adhering to the principles of ALARA. COMPARISON: No relevant prior studies available. FINDINGS: Vertebrae: There is spondylotic spurring demonstrated at multiple levels of a moderate degree. There is grade 1 anterolisthesis C3 and C4 with approximately 0.4 cm of anterior slip, no indication this is acute. There is some rotoscoliotic changes of a mild degree centered within the mid cervical spine with convexity to the right. Discs/spinal canal/neural foramina: No acute findings. No spinal canal stenosis. Soft tissues: Unremarkable. IMPRESSION: Chronic and degenerative change, no acute fracture. Electronically signed by: Tin Samson MD 07/29/23 06:[address] 07/29/23 04:42 Exam(s): CT HEAD Without Contrast EXAM: CT Head Without Intravenous Contrast CLINICAL HISTORY: Reason for exam: fall. TECHNIQUE: Axial computed tomography images of the head/brain without intravenous contrast. CTDI is 35.79 mGy and DLP is 624.41 mGy-cm. Automated exposure control was utilized for the study. A dose lowering technique was utilized adhering to the principles of ALARA. COMPARISON: No relevant prior studies available. FINDINGS: Brain: Unremarkable. No hemorrhage. No significant white matter disease. No edema. Ventricles: Unremarkable. No ventriculomegaly. Bones/joints: Unremarkable. No acute fracture. Soft tissues: There is soft tissue swelling/small hematoma demonstrated overlying the inferior right lateral aspect of the frontal bone. Vasculature: There is some calcifications to the cavernous carotid and vertebral basilar arterial system. Sinuses: Unremarkable as visualized. No acute sinusitis. Mastoid air cells: Unremarkable as visualized. No mastoid effusion. IMPRESSION: Soft tissue swelling, no acute bleed mass or infarct within brain parenchyma Electronically signed by: Tin Samson MD 07/29/23 06:18 AM Shoulder X-Ray 07/29/23 04:42 XR shoulder RT min 2V routine HISTORY: 73 years-old Female Fall. Injury. Chronic dislocation per pt COMPARISON: Chest radiograph 06/28/2023 TECHNIQUE: 3 views of the right shoulder FINDINGS: Demineralized appearance of the bones. Moderate osteoarthritis. No acute fracture, dislocation or osseous erosion. The humeral head is positioned anteriorly and somewhat superiorly in relation to the glenoid on the scapular Y view. Cardiac silhouette is enlarged. Pulmonary vascular congestion. IMPRESSION: 1. No acute fracture. 2. Anterosuperior positioning of the humeral head in relation to the glenoid on the scapular Y view, likely positional. Joint subluxation considered less likely. ACT 112: Negative or not required by law. The above report was generated using voice recognition software. It may contain grammatical, syntax or spelling errors. Electronically signed by: Keshawn Foster M.D. 07/29/2023 6:56 AM MDM Narrative Physical exam and history were performed. Nursing notes, EMR, and Medication List were personally reviewed. No social concerns were identified as barriers to patients care. Patient appears to have had syncope/fall event this morning bringing her to the ER. She has had several falls after a dosing change of Lyrica. She does have outward sign of injury primarily to the right side of her head. She is on blood thinners. IV access was established and labs were obtained. Patient was gently hydrated with normal saline. Patient's blood work is as above and was reviewed. She does not have significantly elevated white blood cell count or gross anemia. Her initial troponin is slightly elevated at 17. She is not having distinct chest pain symptoms and repeat troponin is pending at the time of this dictation. EKG does not show acute ST elevation event. Patient does seem a little dry on BUN and creatinine, and the fluid should help. CT scan of the head and neck was performed and reviewed by myself and radiology showing no acute process. Chest x-ray appears to show chronic findings of the right shoulder but nothing acute. Overall the patient does not appear well for discharge home. She has an elevated troponin from her baseline and had a syncopal/fall episode. The case was discussed with the on-call hospitalist team who agreed to evaluate the patient here in the ER. Please see their dictation for further patient course, plan, and disposition. The chart was completed utilizing [employer] Speech Voice Recognition Software. Grammatical errors, random word insertions, pronoun errors, and incomplete sentences are an occasional consequence of this system due to software limitations, ambient noise, and hardware issues. Any formal questions or concerns about the content, text, or information contained within the body of this dictation should be directly addressed to the provider for clarification. . Impression & Plan Fall, Head injury, Elevated troponin Discharge Plan Visit Data Chief Complaint: Fall Stated Complaint: fall w/ head injury ED Provider: Marianna Arevalo ED Midlevel Provider: Rashawn Goodman Discharge Problem: Fall, Head injury, Elevated troponin Patient Disposition: Admitted As Inpatient Discharge Instructions Interventions: ED Discharge Assessment Last Done: 07/29/23 10:54
[2023-07-29 05:45] LABS: Basophils # (auto) 0.01 K/uL (0.00-0.20); Basophils % (auto) 0.1 %; Eosinophils # (auto) 0.01 K/uL (0.00-0.50); Eosinophils % (auto) 0.1 %; Hemoglobin 12.2 g/dl (12.0-16.0); Immature Granulocytes # (auto) 0.09 K/uL (0.01-0.20); Immature Granulocytes % (auto) 0.9 %; Lymphocytes # (auto) 0.62 K/uL (1.20-3.40); Lymphocytes % (auto) 5.9 %; Mean Corpuscular Hgb Conc 31.3 g/dL (32.0-36.0); Mean Corpuscular Volume 92.9 fL (80.0-100.0); Mean Platelet Volume 10.8 fL (9.4-12.4); Monocytes % (auto) 7.7 %; Neutrophils # (auto) 8.91 K/uL (1.40-6.50); Neutrophils % (auto) 85.3 %; Platelet Count 252 K/uL (130-400); RDW Standard Deviation 51.5 fL (36.4-46.3); White Blood Count 10.44 K/ul (4.8-10.8)
[2023-07-29 05:57] LABS: Albumin Globulin Ratio 1.4 (0.9-2); BUN Creatinine Ratio 55.1 (10-20); Bilirubin,Total 0.5 mg/dl (0.2-1.0); Calcium 9.3 mg/dl (8.6-10.3); Creatinine Clr Calc Pharmacy 50.3 ml/min; Est GFR (African American) 59.6 ml/min; Est GFR (Non-African American) 51.5 ml/min; Globulin 2.9 gm/dl (2.5-4.0); Potassium 3.5 mmol/L (3.5-5.1); Total Protein 6.9 gm/dl (6.0-8.3)
--- NOTE | 2023-07-29 06:05 | Emergency Department Note ---
ED Visit Note I was consulted by the Advanced Practice Provider. I personally made/approved the management plan and take responsibility for the patient management. I performed a substantive portion of the visit. This includes the aspects of: -History/Physical and personally seeing the patient -MDM -I independently interpreted the following studies: Chest x-ray and EKG .
--- NOTE | 2023-07-29 06:09 | CT Scan Report ---
Exam(s): CT C SPINE EXAM: CT Cervical Spine Without Intravenous Contrast CLINICAL HISTORY: Reason for exam: fall. TECHNIQUE: Axial computed tomography images of the cervical spine without intravenous contrast. CTDI is 23.37 mGy and DLP is 377.09 mGy-cm. Automated exposure control was utilized for the study. A dose lowering technique was utilized adhering to the principles of ALARA. COMPARISON: No relevant prior studies available. FINDINGS: Vertebrae: There is spondylotic spurring demonstrated at multiple levels of a moderate degree. There is grade 1 anterolisthesis C3 and C4 with approximately 0.4 cm of anterior slip, no indication this is acute. There is some rotoscoliotic changes of a mild degree centered within the mid cervical spine with convexity to the right. Discs/spinal canal/neural foramina: No acute findings. No spinal canal stenosis. Soft tissues: Unremarkable. IMPRESSION: Chronic and degenerative change, no acute fracture. Electronically signed by: Tin Samson MD 07/29/23 06:08 AM
[2023-07-29 06:16] LABS: INR 1.6 (0.9-1.1); Partial Thromboplastin Ratio 1.1; Partial Thromboplastin Time 32 Seconds (21-31); Prothrombin Time 17.3 Seconds (9.0-12.0)
--- NOTE | 2023-07-29 06:19 | CT Scan Report ---
Exam(s): CT HEAD Without Contrast EXAM: CT Head Without Intravenous Contrast CLINICAL HISTORY: Reason for exam: fall. TECHNIQUE: Axial computed tomography images of the head/brain without intravenous contrast. CTDI is 35.79 mGy and DLP is 624.41 mGy-cm. Automated exposure control was utilized for the study. A dose lowering technique was utilized adhering to the principles of ALARA. COMPARISON: No relevant prior studies available. FINDINGS: Brain: Unremarkable. No hemorrhage. No significant white matter disease. No edema. Ventricles: Unremarkable. No ventriculomegaly. Bones/joints: Unremarkable. No acute fracture. Soft tissues: There is soft tissue swelling/small hematoma demonstrated overlying the inferior right lateral aspect of the frontal bone. Vasculature: There is some calcifications to the cavernous carotid and vertebral basilar arterial system. Sinuses: Unremarkable as visualized. No acute sinusitis. Mastoid air cells: Unremarkable as visualized. No mastoid effusion. IMPRESSION: Soft tissue swelling, no acute bleed mass or infarct within brain parenchyma Electronically signed by: Tin Samson MD 07/29/23 06:18 AM
--- NOTE | 2023-07-29 06:57 | XRay Report ---
XR shoulder RT min 2V routine HISTORY: 73 years-old Female Fall. Injury. Chronic dislocation per pt COMPARISON: Chest radiograph 06/28/2023 TECHNIQUE: 3 views of the right shoulder FINDINGS: Demineralized appearance of the bones. Moderate osteoarthritis. No acute fracture, dislocation or oss eous erosion. The humeral head is positioned anteriorly and somewhat superiorly in relation to the gl enoid on the scapular Y view. Cardiac silhouette is enlarged. Pulmonary vascular congestion. IMPRESSION: 1. No acute fracture. 2. Anterosuperior positioning of the humeral head in relation to the glenoid on the scapular Y view, likely positional. Joint subluxation considered less likely. ACT 112: Negative or not required by law. The above report was generated using voice recognition software. It may contain grammatical, syntax o r spelling errors. Electronically signed by: Keshawn Foster M.D. 07/29/2023 6:56 AM
[2023-07-29] MEDS ORDERED: SODIUM CHLORIDE 0.9% 1,000 ML IV SCH (07:00)
--- NOTE | 2023-07-29 08:25 | History & Physical Report ---
Date of Service July 29, 2023 Assessment & Plan (1) Recurrent falls: Plan: This is a 72-year-old female who has significant past medical history of chronic diastolic CHF, history of PSVT, HTN, thoracic aortic aneurysm, Edenilson-Danlos syndrome, secondary hyperparathyroidism, hypothyroidism, hyperlipidemia, BRANDIE on CPAP, asthma, vitamin D deficiency, GERD, history of diverticulitis with colon perforation, RLS, fibromyalgia, chronic pain syndrome, hypercoagulability, history of gastric bypass, depression, history of PTSD, history of PE who presents to ED with frequent falls over the last several days. Timing of falls seems to correlate with increased dose of pregabalin. However, pt cannot rule out LOC so will evaluate as if potential syncopal event. Recent outpatient ECHO report reviewed - normal LVEF. UA suspicious for UTI - culture pending - Admit to med telemetry - Check carotid duplex as part of the syncope work-up - Check orthostatic vital signs - Fall precautions - PT/OT evaluations - Hold pregabalin for now - Will need to discuss with pain management recommendations to assist with patient's chronic pain - Empiric ceftriaxone for possible UTI pending culture (2) Shoulder subluxation, right: Plan: Chronic, stable - eventual surgical repair is planned (3) assisted (current) use of anticoagulants: Plan: History of PE, protein C deficiency - pt is on chronic warfarin but currently subtherapuetic - Holding warfarin today due to fall with frontal scalp contusion - Heparin gtt with no bolus for bridge - monitor mental status - Repeat CT due to lethargy on initial evaluation - Daily INR (4) Protein C deficiency: Plan: See plan for #3 (5) Chronic pain syndrome: Plan: Holding pregabalin but otherwise continuing outpatient regimen (6) Fibromyalgia: (7) Edenilson-Danlos syndrome: (8) Hypothyroidism: Plan: Chronic - Check TSH in AM - Continue levothyroxine (9) ISAC (generalized anxiety disorder): (10) Sleep apnea: Plan: Intermittently uses CPAP - will trial while admitted (11) Chronic heart failure with preserved ejection fraction (HFpEF): Plan: Chronic, stable - Continue torsemide 40 mg daily Plan Pt seen and reviewed with attending physician, Dr. Jha. Plan of care discussed and as outlined above. Code Status: Full code DVT prophylaxis: starting heparin gtt this evening, re-evaluate tomorrow on when to resume warfarin Terry Dixon PA-C History of Present Illness Chief Complaint: Recurrent falls Primary Care Provider: [facility] This is a 72-year-old female who has significant past medical history of chronic diastolic CHF, history of PSVT, HTN, thoracic aortic aneurysm, Edenilson-Danlos syndrome, secondary hyperparathyroidism, hypothyroidism, hyperlipidemia, BRANDIE on CPAP, asthma, vitamin D deficiency, GERD, history of diverticulitis with colon perforation, RLS, fibromyalgia, chronic pain syndrome, hypercoagulability, history of gastric bypass, depression, history of PTSD, history of PE who presents to ED with frequent falls over the last several days. History from the patient is somewhat limited at present due to lethargy. Apparently, pt's pregabalin was recently increased to TID - since the increase, she has noted increased issues with her balance and falls. This morning, she was attempting to use the bathroom and fell, hitting her head on the floor. She is unsure if she lost consciousness. She was ultimately able to crawl across the room to her phone as her life alert button wasn't working and she couldn't get off the floor. She lives in assisted living at [facility] and reports that staff had to help her off the floor. She was sent into the ED for evaluation due to these falls and hitting her head this morning when she is on anticoagulation. Pt has chronic pain and follows with pain management. She also has a chronic right shoulder dislocation that she has not yet been able to have surgically repaired. Last ECHO 05/07/23 - LVEF 55-59%, mild LAE, LV wall thickness mildly increased (concentric), grade I diastolic dysfunction, mild AVR, MR, TR, normal pulm artery pressure, proximal ascending aorta is relatively unchanged (5.2 cm) Allergies Allergy/AdvReac Type Severity Reaction Status Date / Time ammonia Allergy Severe FACE, Verified 03/07/23 08:27 LIPS, TONGUE EDEMA buspirone Allergy Severe NEURO Verified 03/07/23 08:27 COMPLICATIONS duloxetine Allergy Intermediate RASH Verified 03/07/23 08:27 ITCHING adhesive Allergy Mild skin tears Verified 03/07/23 08:27 vancomycin Allergy Unknown ON [facility] Verified 03/07/23 08:27 MED LIST diphenhydramine AdvReac Intermediate RESTLESS Verified 03/07/23 08:27 LEGS gabapentin AdvReac Intermediate MUSCLE Verified 03/07/23 08:27 STIFFNESS lisinopril AdvReac Intermediate cough Verified 03/07/23 08:27 NSAIDS (Non-Steroidal AdvReac Unknown not Verified 03/07/23 08:27 Anti-Inflamma supposed to use-S/P GASTRIC BYPASS venlafaxine AdvReac Unknown AFFECTS Verified 03/07/23 08:27 LEGS Home Medications Medication Instructions Recorded Confirmed Type atorvastatin 20 mg tablet 20 mg PO .@0801/09/22 07/29/23 History buprenorphine 15 mcg/hour weekly 1 patch topical WK 01/09/22 07/29/23 History transdermal patch carbidopa 25 mg-levodopa 100 mg 1 tab PO .0800,1200,1599,199901/09/22 07/29/23 History tablet fluticasone propionate 50 2 spray intranasal .@799,199901/09/22 07/29/23 History mcg/actuation nasal spray,suspension (Flonase Allergy Relief) hydroxyzine HCl 25 mg tablet 25 mg PO QID PRN ANXIETY/ITCHING 01/09/22 07/29/23 History levothyroxine 50 mcg tablet 50 mcg PO .@79901/09/22 07/29/23 History montelukast 10 mg tablet 10 mg PO .@199901/09/22 07/29/23 History Saccharomyces boulardii 250 mg 250 mg PO .@799,199910/03/22 07/29/23 History capsule (Florastor) warfarin 4 mg tablet 4 mg PO UD 10/03/22 07/29/23 History potassium chloride 20 mEq 20 meq PO .@1700 10/28/22 07/29/23 History tablet,extended release(part/cryst) potassium chloride 20 mEq 40 meq PO .@0810/28/22 07/29/23 History tablet,extended release(part/cryst) acetaminophen 500 mg tablet 1,000 mg PO Q8H PRN TEMP >100F/PAIN 12/10/22 07/29/23 History (Tylenol Extra Strength) loperamide 2 mg tablet 2 mg PO Q6H PRN Diarrhea 12/10/22 07/29/23 History metoprolol tartrate 25 mg tablet 12.5 mg PO .@79912/10/22 07/29/23 History midodrine 2.5 mg tablet 2.5 mg PO UD 12/10/22 07/29/23 History mirtazapine 30 mg tablet 30 mg PO .@199912/10/22 07/29/23 History ergocalciferol (vitamin D2) 25,000 50,000 unit PO .WED@0803/07/23 07/29/23 History unit capsule pregabalin 25 mg capsule (Lyrica) 75 mg PO .@0800,1500,199903/07/23 07/29/23 History omeprazole 20 mg tablet,delayed 40 mg PO .@0807/29/23 07/29/23 History release ropinirole 5 mg tablet 2.5 mg PO .@0800,1500,199907/29/23 07/29/23 History torsemide 20 mg tablet 20 mg PO .@1200 07/29/23 07/29/23 History torsemide 20 mg tablet 40 mg PO .@0807/29/23 07/29/23 History warfarin 6 mg tablet 6 mg PO UD 07/29/23 07/29/23 History Past Med/Surg History Medical History (Updated 07/29/23 @ 22:13 by Rashawn Goodman PA-C) Recurrent falls Parkinson disease Acute kidney injury Acute exacerbation of chronic low back pain Opioid dependence Fibromyalgia Abdominal hernia Coagulopathy Hypokalemia Weakness Anemia History of DVT (deep vein thrombosis) chronic anticoagulation Protein C deficiency Dysphagia History of colon polyps Difficult intravenous access History of intestinal obstruction Bulging of intervertebral disc Osteoporosis Osteoarthritis Renal cyst History of colon polyps Gastroparesis Thyroid nodule Hearing deficit ADHD Peripheral neuropathy Tachycardia Hyperlipidemia Claustrophobia Sleep apnea intermittently able to tolerate CPAP Asthma uses PRN INH 3-4 x wk GERD (gastroesophageal reflux disease) Hypothyroidism Restless leg syndrome Edenilson-Danlos syndrome Pulmonary embolism 07/2018 - treated w/ lovenox - unk etiology Thoracic aortic aneurysm follows w/ Dr. Arredondo - evaluated within last 6 mo ISAC (generalized anxiety disorder) Surgical History Hx of melanoma excision shoulder Self extubation attempted post gastric bypass History of laparotomy History of left knee replacement History of intestinal surgery History of right knee joint replacement History of arthroscopy of left knee History of abdominoplasty + hernia repair History of bilateral breast reduction surgery History of cholecystectomy History of tonsillectomy History of gastric bypass History of esophagogastroduodenoscopy (EGD) History of colonoscopy Status post biopsy of thyroid gland benign S/P hysterectomy Family History Uncle Stomach cancer Other No family history of adverse response to anesthesia No pertinent family history in first degree relatives Social History Smoking Status: Never smoker Second Hand Exposure: No; Do You Dip or Chew Tobacco: No; Hx Alcohol Use: Yes Alcohol type: wine and hard liquor Hx Substance Use: No Preferred Language: Libyan Communication Ability: Effective Communication Ability Comment: pt is obtunded Visual Impairment: Limited Hearing Ability: Normal 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 How many Children do You have: 0 Feels Safe at Home: Yes Safety Concerns: Feels Safe At This Time Assistive Devices: Cane, Glasses, Scooter/Electric Scooter and Walker Review of Systems Review of Systems: Limited due to patient drowsiness/lethargy - please see HPI Physical Exam Physical Exam: Please see physician addendum for details of the physical exam. Results & Data Results & Data Vital Signs (Past 12 Hours) Vital Signs Temp Pulse Pulse Resp BP Pulse Ox O2 Del Method 07/29/23 06:34 72 17 97 Room Air 07/29/23 04:50 59 L 07/29/23 04:48 95 Room Air 07/29/23 04:34 36.8 C 72 16 169/103 H 97 Room Air Laboratory Results Laboratory Results - last 24 hr 07/29/23 07/29/23 05:18 07:51 WBC 10.44 RBC 4.20 Hgb 12.2 Hct 39.0 MCV 92.9 MCH 29.0 MCHC 31.3 L RDW Std Deviation 51.5 H RDW Coeff of Neftaly 15.0 H Plt Count 252 MPV 10.8 Immature Gran % (Auto) 0.9 Neut % (Auto) 85.3 Lymph % (Auto) 5.9 Power % (Auto) 7.7 Eos % (Auto) 0.1 Baso % (Auto) 0.1 Neut # (Auto) 8.91 H Lymph # (Auto) 0.62 L Power # (Auto) 0.80 H Eos # (Auto) 0.01 Baso # (Auto) 0.01 Immature Gran # (Auto) 0.09 PT 17.3 H INR 1.6 H APTT 32 H PTT Ratio 1.1 Sodium 138 Potassium 3.5 Chloride 103 Carbon Dioxide 27 Anion Gap 8 BUN 59 H Creatinine 1.07 Est Cr Clr Drug Dosing 50.3 Est GFR ( Amer) 59.6 Est GFR (Non-Af Amer) 51.5 BUN/Creatinine Ratio 55.1 H Glucose 110 H Calcium 9.3 Total Bilirubin 0.5 AST 25 ALT 6 L Alkaline Phosphatase 141 H Troponin I High Sens 17.0 H Pending Total Protein 6.9 Albumin 4.0 Globulin 2.9 Albumin/Globulin Ratio 1.4 Diagnostic Findings Cervical Spine CT 07/29/23 04:42 Exam(s): CT C SPINE EXAM: CT Cervical Spine Without Intravenous Contrast CLINICAL HISTORY: Reason for exam: fall. TECHNIQUE: Axial computed tomography images of the cervical spine without intravenous contrast. CTDI is 23.37 mGy and DLP is 377.09 mGy-cm. Automated exposure control was utilized for the study. A dose lowering technique was utilized adhering to the principles of ALARA. COMPARISON: No relevant prior studies available. FINDINGS: Vertebrae: There is spondylotic spurring demonstrated at multiple levels of a moderate degree. There is grade 1 anterolisthesis C3 and C4 with approximately 0.4 cm of anterior slip, no indication this is acute. There is some rotoscoliotic changes of a mild degree centered within the mid cervical spine with convexity to the right. Discs/spinal canal/neural foramina: No acute findings. No spinal canal stenosis. Soft tissues: Unremarkable. IMPRESSION: Chronic and degenerative change, no acute fracture. Electronically signed by: Tin Samson MD 07/29/23 06:[address] 07/29/23 04:42 Exam(s): CT HEAD Without Contrast EXAM: CT Head Without Intravenous Contrast CLINICAL HISTORY: Reason for exam: fall. TECHNIQUE: Axial computed tomography images of the head/brain without intravenous contrast. CTDI is 35.79 mGy and DLP is 624.41 mGy-cm. Automated exposure control was utilized for the study. A dose lowering technique was utilized adhering to the principles of ALARA. COMPARISON: No relevant prior studies available. FINDINGS: Brain: Unremarkable. No hemorrhage. No significant white matter disease. No edema. Ventricles: Unremarkable. No ventriculomegaly. Bones/joints: Unremarkable. No acute fracture. Soft tissues: There is soft tissue swelling/small hematoma demonstrated overlying the inferior right lateral aspect of the frontal bone. Vasculature: There is some calcifications to the cavernous carotid and vertebral basilar arterial system. Sinuses: Unremarkable as visualized. No acute sinusitis. Mastoid air cells: Unremarkable as visualized. No mastoid effusion. IMPRESSION: Soft tissue swelling, no acute bleed mass or infarct within brain parenchyma Electronically signed by: Tin Samson MD 07/29/23 06:18 AM Shoulder X-Ray 07/29/23 04:42 XR shoulder RT min 2V routine HISTORY: 73 years-old Female Fall. Injury. Chronic dislocation per pt COMPARISON: Chest radiograph 06/28/2023 TECHNIQUE: 3 views of the right shoulder FINDINGS: Demineralized appearance of the bones. Moderate osteoarthritis. No acute fracture, dislocation or osseous erosion. The humeral head is positioned anteriorly and somewhat superiorly in relation to the glenoid on the scapular Y view. Cardiac silhouette is enlarged. Pulmonary vascular congestion. IMPRESSION: 1. No acute fracture. 2. Anterosuperior positioning of the humeral head in relation to the glenoid on the scapular Y view, likely positional. Joint subluxation considered less likely. ACT 112: Negative or not required by law. The above report was generated using voice recognition software. It may contain grammatical, syntax or spelling errors. Electronically signed by: Keshawn Foster M.D. 07/29/2023 6:56 AM Medications Administered Discontinued Medications Sodium Chloride (Nss) 1,000 mls @ 999 mls/hr IV .Q1H1M ASHUTOSH Stop: 07/29/23 08:00 Last Admin: 07/29/23 07:25 Dose: 999 mls/hr Documented By: BEN Supervising Physician Co-Signing Physician Notes I have seen and discussed the case with the collaborating BRAYAN. I agree with the above H&P. I have reviewed and confirmed the patients medical history, the findings on physical examination, and the patients diagnosis and treatment plan with Zack SCHMIDT and agree with the information documented. In short, Ms. Oneal is a 73 year old woman with complicated past medical history of chronic diastolic CHF, history of PSVT, HTN, thoracic aortic aneurysm, Edenilson-Danlos syndrome, secondary hyperparathyroidism, hypothyroidism, hyperlipidemia, BRANDIE on CPAP, asthma, vitamin D deficiency, GERD, history of diverticulitis with colon perforation, RLS, fibromyalgia, chronic pain syndrome, hypercoagulability, history of gastric bypass, depression, history of PTSD, history of PE who presented to ED with frequent falls over the last several days and admitted for evaluation of questionable syncope and ambulatory dysfunction. Upon initial exam, patient was lethargic and hard to awaken from sleep. Upon reexamination, patient was much more awake and alert. Patient notes multiple episodes of falling asleep while doing little activities, like drinking/eating, which seem to correlate to a recent increase in lyrica, which was increased to 75 mg TID from 50mg TID. This is around when the patient reports feeling "strange." The fall that prompted admission transpired while sitting on the toilet overnight, in which patient thinks she fell asleep, only to awaken to the sound of her head hitting the floor/cabinet. Patient denies dizziness, chest pains, lightheadedness or other acute concerns. 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 Vital signs stable. Labs with subtherapeutic inr; UA suspicious for UTI Imaging with no hemorrhage/subdurnal hematoma Physical exam: General: intially hard to arouse, on reexamination pleasant and conversational, AO4 able to recall recent events, upset over changes over last year with health/independence HEENT: large hematoma over right orbit extending into scalp, nontender; pupils initallly pinpoint equal iso chronic buprenorphine patch CV RRR, no murmur appreciated RESP CTABL GI soft, NTND MSK appears to move all extremities equally, shoulders with bilateral pain 2/2 dislocation SKIN bilateral lymphedematous changes in lower extremities, no concerns for cellulitis Plan #LOC with blunt trauma to head, Syncopal episode v hypersomnolence 2/2 medication effect -Hold pregabalin -ECHO, orthostats, carotids for syncopal workup -monitor on tele -PT/OT #Recurrent falls -PT/OT #Protein C deficiency #Parkinson's disease #RLS -Continue sinamet QID and ropinrole TID -Heparin drip, no bolus, monitor for mental status changes: low dose iso fall risk -Warfarin to resume tomorrow, INR 2-3 #Chronic shoulder pain, chronic dislocations #Edenilson-Danlos syndrome -Given somnolence with pain regimen, discuss with Pain management -hold pregabalin -PT/OT #Hypothyroid Continue levothyroxine #Chronic HFpEF -Vascular congestion on CXR -On torsemide, continue 40mg daily -BNP in am #PTSD -Continue mirtazipine -Hydroxyzine prn Rest of plan as above (2) Shoulder subluxation, right Encounter type: subsequent encounter Qualified Code(s): S43.001D - Unspecified subluxation of right shoulder joint, subsequent encounter (8) Hypothyroidism Hypothyroidism type: acquired Qualified Code(s): E03.9 - Hypothyroidism, unspecified (10) Sleep apnea Sleep apnea type: obstructive Qualified Code(s): G47.33 - Obstructive sleep apnea (adult) (pediatric)
--- NOTE | 2023-07-29 09:36 | CT Scan Report ---
CT head/brain wo con CLINICAL HISTORY: 73 years-old Female with fall/lethargy, f/u initial CT - r/o SDH. Acute headache TECHNIQUE: Multiple axial CT images of the head were obtained without contrast. A dose lowering tech nique was utilized adhering to the principles of ALARA. CT DOSE: 625.8 mGy.cm COMPARISON: Head CT of same day at 5:18 AM, head CT 04/04/2023 FINDINGS: No acute intracranial hemorrhage, midline shift, intracranial mass, hydrocephalus, territorial ischem ia or abnormal extra-axial collection. Involutional changes with white matter hypodensities suggestiv e of chronic microvascular ischemic disease. Cerebral vascular calcifications. The calvarium is intact. 3.9 x 0.5 cm right frontal scalp/supraorbital hematoma/contusion. Prior bila teral lens repair The paranasal sinuses, mastoid air cells, and middle ear cavities are clear. IMPRESSION: 1. Unchanged exam from the study obtained less than 4 hours earlier. There is no acute intracranial a bnormality or calvarial fracture identified. 2. Right frontal scalp contusion. ACT 112: Negative or not required by law. The above report was generated using voice recognition software. It may contain grammatical, syntax o r spelling errors. Electronically signed by: Keshawn Foster M.D. 07/29/2023 9:33 AM
[2023-07-29 13:29] LABS: Appearance Urine Clear (Clear); Bacteria Urine Automated 4+ (Negative); Bilirubin Urine Negative (Negative); Blood Urine Negative (Negative); Color Urine Yellow; Glucose Urine UA Negative (Negative); Ketones Urine Negative (Negative); Leukocyte Esterase Urine Trace (Negative); Nitrite Urine Negative (Negative); Protein Urine Negative (Negative); RBC Urine Automated 0-4 /hpf (0-4); Specific Gravity Urine 1.017 (1.000-1.030); Urobilinogen Urine Negative (Negative)
--- NOTE | 2023-07-29 16:31 | Electrocardiogram Report ---
Test Reason : Blood Pressure : / mmHG Vent. Rate : 077 BPM Atrial Rate : 077 BPM P-R Int : 184 ms QRS Dur : 110 ms QT Int : 398 ms P-R-T Axes : 052 -10 051 degrees QTc Int : 450 ms Normal sinus rhythm Normal ECG When compared with ECG of 28-JUN-2023 08:42, No significant change was found Confirmed by Aman Sullivan ([id number]) on 07/29/2023 4:30:36 PM Referred By: [facility] Confirmed By:Nicanor Sullivan
[2023-07-29] MEDS ORDERED: LOPERAMIDE HCL 2 MG CAP PO PRN (17:43)
[2023-07-29] MEDS ORDERED: hydrOXYzine HCl 25 MG TAB PO PRN (17:43)
[2023-07-29] MEDS ORDERED: Heparin IV Adult Wt-Based Low-Dose *NO* INITIAL Bolus Protocol IV STA (18:00)
[2023-07-29] MEDS ORDERED: cefTRIAXone SODIUM 2,000 MG in DEXTROSE 5 % MINI-B 50 ML IV ONE (18:00)
[2023-07-29] MEDS: oxyCODONE/ACETAMINOPHEN 5mg/325mg TAB PO PRN (18:23)
[2023-07-29] MEDS: CARBIDOPA/LEVODOPA 25/100MG TAB PO SCH ×2 (18:30→21:48)
[2023-07-29] MEDS: rOPINIRole HCL 2 MG TABLET PO SCH ×2 (18:30→21:46)
[2023-07-29] MEDS: HEPARIN SODIUM/DEXTROSE 25,000 UNITS/500 ML BAG IV SCH (19:27)
[2023-07-29 20:05] LABS: Basophils # (auto) 0.01 K/uL (0.00-0.20); Basophils % (auto) 0.1 %; Eosinophils # (auto) 0.01 K/uL (0.00-0.50); Eosinophils % (auto) 0.1 %; Hemoglobin 10.2 g/dl (12.0-16.0); Immature Granulocytes # (auto) 0.06 K/uL (0.01-0.20); Immature Granulocytes % (auto) 0.7 %; Lymphocytes # (auto) 0.65 K/uL (1.20-3.40); Lymphocytes % (auto) 7.3 %; Mean Corpuscular Hemoglobin 29.6 pg (25.0-34.0); Mean Corpuscular Hgb Conc 32.9 g/dL (32.0-36.0); Mean Corpuscular Volume 89.9 fL (80.0-100.0); Mean Platelet Volume 10.7 fL (9.4-12.4); Monocytes # (auto) 0.74 K/uL (0.11-0.59); Monocytes % (auto) 8.4 %; Neutrophils # (auto) 7.39 K/uL (1.40-6.50); Neutrophils % (auto) 83.4 %; Platelet Count 203 K/uL (130-400); RDW Coefficient of Variation 15.5 % (11.5-14.5); RDW Standard Deviation 50.8 fL (36.4-46.3); Red Blood Count 3.45 M/uL (4.20-5.40); White Blood Count 8.86 K/ul (4.8-10.8)
[2023-07-29 20:32] LABS: ANTI-Xa, UFH(UnfractionatedHep < 0.10 IU/ml (0.3-0.7); INR 1.7 (0.9-1.1); Partial Thromboplastin Ratio 1.2; Partial Thromboplastin Time 34 Seconds (21-31); Prothrombin Time 17.7 Seconds (9.0-12.0)
[2023-07-29] MEDS: FLUTICASONE PROPIONATE NA SPR 16 GM BTL NAE SCH (21:44)
[2023-07-29] MEDS: MIRTAZAPINE TAB 15 MG TAB PO SCH (21:45)
[2023-07-29] MEDS: SACCHAROMYCES BOULARDII 250 MG CAP PO SCH (21:48)
[2023-07-29] MEDS: MONTELUKAST SODIUM 10 MG TABLET PO SCH (21:48)
[2023-07-30] MEDS: oxyCODONE/ACETAMINOPHEN 5mg/325mg TAB PO PRN ×2 (01:35→16:11)
[2023-07-30 01:55] LABS: Hematocrit (blood only) 33.7 % (37.0-47.0); Hemoglobin 10.7 g/dl (12.0-16.0); Mean Corpuscular Hemoglobin 28.9 pg (25.0-34.0); Mean Corpuscular Hgb Conc 31.8 g/dL (32.0-36.0); Mean Corpuscular Volume 91.1 fL (80.0-100.0); Mean Platelet Volume 10.4 fL (9.4-12.4); Platelet Count 214 K/uL (130-400); RDW Coefficient of Variation 15.4 % (11.5-14.5); RDW Standard Deviation 51.7 fL (36.4-46.3)
[2023-07-30 02:05] LABS: BUN Creatinine Ratio 39.8 (10-20); Calcium 8.4 mg/dl (8.6-10.3); Creatinine Clr Calc Pharmacy 49.1 ml/min; Est GFR (African American) 70.7 ml/min; Magnesium 2.3 mg/dl (1.7-2.4); Phosphorus 3.5 mg/dl (2.5-4.9); Potassium 3.8 mmol/L (3.5-5.1)
[2023-07-30 02:08] LABS: ANTI-Xa, UFH(UnfractionatedHep 0.23 IU/ml (0.3-0.7)
[2023-07-30 02:11] LABS: INR 1.6 (0.9-1.1); Prothrombin Time 17.2 Seconds (9.0-12.0)
[2023-07-30 02:34] LABS: Thyroid Stimulating Hormone 0.079 uIu/ml (0.300-4.500)
[2023-07-30 03:27] LABS: T4 Free Thyroxine 0.92 ng/dl (0.61-1.60)
[2023-07-30] MEDS: LEVOTHYROXINE SODIUM 50 MCG TABLET PO SCH (06:12)
[2023-07-30] MEDS ORDERED: FUROSEMIDE 40 MG/4 ML VIAL IV ONE (07:23)
[2023-07-30] MEDS ORDERED: POTASSIUM CHLORIDE CRTAB 20 MEQ TABCR PO SCH ×2 (08:00→09:00)
[2023-07-30] MEDS ORDERED: MIDODRINE HCL 2.5 MG TAB PO SCH (08:00)
[2023-07-30] MEDS: SACCHAROMYCES BOULARDII 250 MG CAP PO SCH ×2 (08:43→20:14)
[2023-07-30] MEDS: TORSEMIDE 20 MG TAB PO SCH (08:43)
[2023-07-30] MEDS: MIDODRINE HCL 2.5 MG TAB PO SCH ×3 (08:44→18:28)
[2023-07-30 08:45] LABS: ANTI-Xa, UFH(UnfractionatedHep 0.29 IU/ml (0.3-0.7)
[2023-07-30] MEDS: rOPINIRole HCL 2 MG TABLET PO SCH ×3 (08:45→20:15)
[2023-07-30] MEDS: CARBIDOPA/LEVODOPA 25/100MG TAB PO SCH ×4 (08:46→20:16)
[2023-07-30] MEDS: ATORVASTATIN 20 MG TAB PO SCH (08:46)
[2023-07-30] MEDS: FLUTICASONE PROPIONATE NA SPR 16 GM BTL NAE SCH ×2 (08:47→20:12)
[2023-07-30] MEDS ORDERED: AMMONIUM LACTATE 12% LOTION 225 GM BTL EXT SCH (09:00)
--- NOTE | 2023-07-30 13:21 | Hospitalist Progress Note ---
Date of Service July 30, 2023 Assessment & Plan (1) Recurrent falls: (2) Shoulder subluxation, right: (3) MCFP (current) use of anticoagulants: (4) Protein C deficiency: (5) Chronic pain syndrome: (6) Fibromyalgia: (7) Edenilson-Danlos syndrome: (8) Hypothyroidism: (9) ISAC (generalized anxiety disorder): (10) Sleep apnea: Plan: Intermittently uses CPAP - will trial while admitted (11) Chronic heart failure with preserved ejection fraction (HFpEF): Plan: Chronic, stable - Continue torsemide 40 mg daily Plan Ms. Oneal is a 72-year-old woman who has significant past medical history of chronic diastolic CHF, history of PSVT, HTN, thoracic aortic aneurysm, Edenilson- Danlos syndrome, secondary hyperparathyroidism, hypothyroidism, hyperlipidemia, BRANDIE on CPAP, asthma, vitamin D deficiency, GERD, history of diverticulitis with colon perforation, RLS, fibromyalgia, chronic pain syndrome, hypercoagulability, history of gastric bypass, depression, history of PTSD, history of PE who presented to ED with frequent falls over the last several days on 07/29. Patient fell off of toilet while sleeping overnight. Patient reported multiple episodes of falling asleep, she correlates this to increase in lyrica recently. Patient admitted for management of falls/syncopal like event. Patient feeling much better with cessation of lyrica, noting that she feels more clear cognitively. #Hypersomnolence 2/2 medication effect #Loss of consciousness with trauma to head #Recurrent Falls Likely multifactorial with infection and medication side effect Orthostatic vital signs negative Repeat imaging no concern for ICH Improving notably, continue cessation of lyrica -Continue fall precautions -Treat infection as below #Acute uncomplicated cystitis -UA culture pending, GNB growing at this time -Continue CTX, narrow as able #Chronic pain #Chronic right shoulder dislocation #Elhers-Danlos syndrome -Continue buprenorphine patch -Hold Lyrica -Percocet q6h prn given pain from trying to pick self off ground exacerbated shoulder pain -PT/OT #Chronic Hear Failure with preserved EF -s/p 1 IV furosemide, otherwise compensated -Continue PO torsemide 40mg daily -Continue potassium supplementation #Protein C deficiency #Subtherapeutic INR -IINR 1.6 on admission -Continue heparin -Warfarin 7.5mg tablet tonight, trend INR -Consider lovenox bridge OP when stable for dc #Hematoma, right scalp -Stable, nontender CTM, ICE pack prn #Hypothyroid Continue synthroid #PTSD #Anxiety Continue mirtazpine and hydroxyzine prn DVT heparin to PO warfarin Dispo likely tomorrow Admission and Anticipated Discharge Date Admission Date: July 29, 2023 Subjective NAEO Reports feeling much more clear than days prior, denies any chest pain, headache, focal deficits, or other acute concerns Feels much improved overall Physical Exam Constitutional: WD/WN, vitals as above Respiratory: normal respiratory effort, lungs clear to auscultation Results & Data Results & Data Vital Signs (Past 12 Hours) Vital Signs Temp Pulse Pulse Resp BP BP Pulse Ox 07/30/23 11:33 36.6 C 90 17 113/81 97 07/30/23 08:16 85 07/30/23 08:00 07/30/23 07:37 36.8 C 87 18 138/89 96 07/30/23 04:42 07/30/23 04:15 36.7 C 71 20 131/83 95 Pulse Ox O2 Del Method O2 Del Method 07/30/23 11:33 Room Air 07/30/23 08:16 07/30/23 08:00 Room Air 07/30/23 07:37 Room Air 07/30/23 04:42 95 Room Air 07/30/23 04:15 Room Air Laboratory Results Short CBC 07/29/23 07/30/23 Range/Units 19:50 01:34 WBC 8.86 8.60 (4.8-10.8) K/ul Hgb 10.2 L 10.7 L (12.0-16.0) g/dl Hct 31.0 L 33.7 L (37.0-47.0) % Plt Count 203 214 (130-400) K/uL BMP 07/30/23 01:34 Sodium 136 Potassium 3.8 Chloride 106 Carbon Dioxide 24 BUN 37 H D Creatinine 0.93 Glucose 120 H Calcium 8.4 L Urine 07/29/23 Range/Units 13:15 Urine Color Yellow Urine Appearance Clear (Clear) Urine pH 6.0 (4.5-7.5) Ur Specific [place] 1.017 (1.000-1.030) Urine Protein Negative (Negative) Urine Glucose (UA) Negative (Negative) Medications Administered Home Medications Medication Instructions Recorded Confirmed Last Taken atorvastatin 20 mg tablet 20 mg PO .@79901/09/22 07/29/23 12/10/22 buprenorphine 15 mcg/hour weekly 1 patch topical WK 01/09/22 07/29/23 12/06/22 transdermal patch carbidopa 25 mg-levodopa 100 mg 1 tab PO .0800,1200,1600,199901/09/22 07/29/23 12/10/22 12:00 tablet fluticasone propionate 50 2 spray intranasal .@799,199901/09/22 07/29/23 12/10/22 mcg/actuation nasal spray,suspension (Flonase Allergy Relief) hydroxyzine HCl 25 mg tablet 25 mg PO QID PRN ANXIETY/ITCHING 01/09/22 07/29/23 Unknown levothyroxine 50 mcg tablet 50 mcg PO .@79901/09/22 07/29/23 12/10/22 montelukast 10 mg tablet 10 mg PO .@199901/09/22 07/29/23 12/09/22 Saccharomyces boulardii 250 mg 250 mg PO .@799,199910/03/22 07/29/23 12/10/22 08:00 capsule (Florastor) warfarin 4 mg tablet 4 mg PO UD 10/03/22 07/29/23 12/09/22 potassium chloride 20 mEq 20 meq PO .@17010/28/22 07/29/23 12/09/22 tablet,extended release(part/cryst) potassium chloride 20 mEq 40 meq PO .@79910/28/22 07/29/23 12/10/22 tablet,extended release(part/cryst) acetaminophen 500 mg tablet 1,000 mg PO Q8H PRN TEMP >100F/PAIN 12/10/22 07/29/23 Unknown (Tylenol Extra Strength) loperamide 2 mg tablet 2 mg PO Q6H PRN Diarrhea 12/10/22 07/29/23 Unknown metoprolol tartrate 25 mg tablet 12.5 mg PO .@79912/10/22 07/29/23 12/10/22 midodrine 2.5 mg tablet 2.5 mg PO UD 12/10/22 07/29/23 12/10/22 12:00 mirtazapine 30 mg tablet 30 mg PO .@199912/10/22 07/29/23 12/09/22 ergocalciferol (vitamin D2) 25,000 50,000 unit PO .WED@79903/07/23 07/29/23 Unknown unit capsule pregabalin 25 mg capsule (Lyrica) 75 mg PO .@0800,1500,199903/07/23 07/29/23 Unknown omeprazole 20 mg tablet,delayed 40 mg PO .@79907/29/23 07/29/23 Unknown release ropinirole 5 mg tablet 2.5 mg PO .@0800,1500,199907/29/23 07/29/23 Unknown torsemide 20 mg tablet 20 mg PO .@119907/29/23 07/29/23 Unknown torsemide 20 mg tablet 40 mg PO .@79907/29/23 07/29/23 Unknown warfarin 6 mg tablet 6 mg PO UD 07/29/23 07/29/23 Unknown Active Medications Generic Name Dose Route Start Last Admin Trade Name Carlene PRN Reason Stop Dose Admin Atorvastatin Calcium 20 mg 07/30/23 08:00 07/30/23 08:46 Atorvastatin 20 Mg Tab PO 08/29/23 07:59 20 mg DAILY@0800 ASHUTOSH Administration Carbidopa/Levodopa 1 tab 07/29/23 18:00 07/30/23 08:46 Carbidopa/Levodopa 25/100mg Tab PO 08/28/23 17:59 1 tab QID@0800,1200,1599,1999 ASHUTOSH Administration Fluticasone Propionate 2 sprays 07/29/23 20:00 07/30/23 08:47 Fluticasone Propionate Na Spr 16 Gm Btl ELYSE 08/28/23 19:59 2 sprays BID@0800,1999 ASHUTOSH Administration Heparin Sodium/Dextrose 25,000 units in 500 mls @ 16 mls/hr 07/29/23 18:15 07/30/23 09:18 Heparin Sodium/Dextrose IV 08/28/23 18:14 800 units/hr .Q24H ASHUTOSH 16 mls/hr Titration Protocol 800 UNITS/HR Levothyroxine Sodium 50 mcg 07/30/23 06:30 07/30/23 06:12 Levothyroxine Sodium 50 Mcg Tablet PO 08/29/23 06:29 50 mcg DAILYBB ASHUTOSH Administration Midodrine 3.75 mg 07/30/23 08:00 07/30/23 08:44 Midodrine Hcl 2.5 Mg Tab PO 08/29/23 07:59 3.75 mg TID@0800,1200,1700 ASHUTOSH Administration Mirtazapine 30 mg 07/29/23 20:00 07/29/23 21:45 Mirtazapine Tab 15 Mg Tab PO 08/28/23 19:59 30 mg DAILY@1999 ASHUTOSH Administration Montelukast Sodium 10 mg 07/29/23 20:00 07/29/23 21:48 Montelukast Sodium 10 Mg Tablet PO 08/28/23 19:59 10 mg DAILY@1999 ASHUTOSH Administration Oxycodone/Acetaminophen 1 tab 07/29/23 17:32 07/30/23 01:35 Oxycodone/Acetaminophen 5mg/325mg Tab PO 08/12/23 17:31 1 tab Q6H PRN Administration Severe Pain (Scale 7, 8, 9,10) Potassium Chloride 40 meq 07/30/23 09:00 07/30/23 08:44 Potassium Chloride Crtab 20 Meq Tabcr PO 08/29/23 08:59 40 meq BID ASHUTOSH Administration Ropinirole HCl 5 mg 07/29/23 18:00 07/30/23 08:45 Ropinirole Hcl 2 Mg Tablet PO 08/28/23 17:59 5 mg TID@0800,1499,1999 ASHUTOSH Administration Saccharomyces Boulardii 250 mg 07/29/23 20:00 07/30/23 08:43 Saccharomyces Boulardii 250 Mg Cap PO 08/28/23 19:59 250 mg BID@ ASHUTOSH Administration Torsemide 40 mg 07/30/23 08:00 07/30/23 08:43 Torsemide 20 Mg Tab PO 08/29/23 07:59 40 mg DAILY@0800 ASHUTOSH Administration (2) Shoulder subluxation, right Encounter type: subsequent encounter Qualified Code(s): S43.001D - Unspecified subluxation of right shoulder joint, subsequent encounter (8) Hypothyroidism Hypothyroidism type: acquired Qualified Code(s): E03.9 - Hypothyroidism, unspecified (10) Sleep apnea Sleep apnea type: obstructive Qualified Code(s): G47.33 - Obstructive sleep apnea (adult) (pediatric)
[2023-07-30] MEDS: POTASSIUM CHLORIDE PWD 20 MEQ PACK PO SCH ×2 (16:10→20:16)
--- NOTE | 2023-07-30 16:14 | Ultrasound Report ---
US carotid doppler BI CLINICAL HISTORY: 73 years-old Female with syncope. Acute syncope COMPARISON: 01/21/2014 TECHNIQUE: Multiple real time sonographic images of the carotid bifurcations were obtained assessing perez scale, color Doppler and spectral wave form appearance FINDINGS: RIGHT CAROTID: The peak systolic velocity measured within the right ICA is 62 cm/sec. The end diast olic velocity measured 14 cm/sec. The ICA to CCA ratio measured 0.4 which correlates with a stenosis of 0-50%. Atherosclerosis of the right carotid bulb and proximal right ICA. LEFT CAROTID: The peak systolic velocity measured within the left ICA is 59 cm/sec. The end diastol ic velocity measured 25 cm/sec. The ICA to CCA ratio measured 0.88 which correlates with a stenosis o f 0-50%. Atherosclerosis of the left carotid bulb and proximal left ICA. There is normal antegrade vertebral flow bilaterally. IMPRESSION: 1. Atherosclerosis without hemodynamically significant stenosis. 2. Normal antegrade vertebral flow bilaterally. ACT 112: Negative or not required by law. The above report was generated using voice recognition software. It may contain grammatical, syntax o r spelling errors. Electronically signed by: Keshawn Foster M.D. 07/30/2023 4:13 PM
[2023-07-30] MEDS ORDERED: cefTRIAXone SODIUM 2,000 MG in DEXTROSE 5 % MINI-B 50 ML IV SCH (18:00)
[2023-07-30] MEDS: WARFARIN SOD 7.5 MG TAB PO SCH (18:27)
[2023-07-30 18:37] LABS: ANTI-Xa, UFH(UnfractionatedHep 0.32 IU/ml (0.3-0.7)
[2023-07-30] MEDS: MIRTAZAPINE TAB 15 MG TAB PO SCH (20:16)
[2023-07-30] MEDS: MONTELUKAST SODIUM 10 MG TABLET PO SCH (20:16)
[2023-07-31] MEDS: HEPARIN SODIUM/DEXTROSE 25,000 UNITS/500 ML BAG IV SCH (04:36)
[2023-07-31] MEDS: LEVOTHYROXINE SODIUM 50 MCG TABLET PO SCH (05:46)
[2023-07-31 06:09] LABS: Hematocrit (blood only) 32.6 % (37.0-47.0); Hemoglobin 10.7 g/dl (12.0-16.0); Mean Corpuscular Hemoglobin 29.6 pg (25.0-34.0); Mean Corpuscular Hgb Conc 32.8 g/dL (32.0-36.0); Mean Corpuscular Volume 90.1 fL (80.0-100.0); Mean Platelet Volume 10.5 fL (9.4-12.4); Platelet Count 206 K/uL (130-400); RDW Coefficient of Variation 15.3 % (11.5-14.5); RDW Standard Deviation 51.1 fL (36.4-46.3); Red Blood Count 3.62 M/uL (4.20-5.40); White Blood Count 8.03 K/ul (4.8-10.8)
[2023-07-31 06:34] LABS: ANTI-Xa, UFH(UnfractionatedHep 0.35 IU/ml (0.3-0.7); BUN Creatinine Ratio 39.4 (10-20); Calcium 8.2 mg/dl (8.6-10.3); Creatinine Clr Calc Pharmacy 64.5 ml/min; Est GFR (African American) 97.9 ml/min; Est GFR (Non-African American) 84.5 ml/min; INR 1.6 (0.9-1.1); Magnesium 2.1 mg/dl (1.7-2.4); Phosphorus 3.1 mg/dl (2.5-4.9); Potassium 4.4 mmol/L (3.5-5.1); Prothrombin Time 16.6 Seconds (9.0-12.0)
[2023-07-31] MEDS ORDERED: ERGOCALCIFEROL 50,000 UNITS 1250 MCG CAP PO SCH (08:00)
[2023-07-31] MEDS ORDERED: CEFDINIR 300 MG CAP PO SCH (09:00)
[2023-07-31] MEDS: CARBIDOPA/LEVODOPA 25/100MG TAB PO SCH ×3 (09:10→16:53)
[2023-07-31] MEDS: rOPINIRole HCL 2 MG TABLET PO SCH ×2 (09:14→16:54)
[2023-07-31] MEDS: ATORVASTATIN 20 MG TAB PO SCH (09:16)
[2023-07-31] MEDS: TORSEMIDE 20 MG TAB PO SCH (09:16)
[2023-07-31] MEDS: SACCHAROMYCES BOULARDII 250 MG CAP PO SCH (09:17)
[2023-07-31] MEDS: MIDODRINE HCL 2.5 MG TAB PO SCH ×3 (09:18→17:00)
[2023-07-31] MEDS: POTASSIUM CHLORIDE PWD 20 MEQ PACK PO SCH (09:20)
[2023-07-31] MEDS: FLUTICASONE PROPIONATE NA SPR 16 GM BTL NAE SCH (09:20)
--- NOTE | 2023-07-31 12:33 | Discharge Summary ---
Discharge Summary Date of Service July 31, 2023 Notes For Next Care Provider Medication Changes From Visit Discontinued Pregabalin Tolerated intermittent percocet, right shoulder subluxation after fall Lovenox bridge given INR 1.6 and protein c deficiency Cefdinir 300mg BID x 5 days, next dose this evening Admission HPI Per Admitting Provider This is a 72-year-old female who has significant past medical history of chronic diastolic CHF, history of PSVT, HTN, thoracic aortic aneurysm, Edenilson-Danlos syndrome, secondary hyperparathyroidism, hypothyroidism, hyperlipidemia, BRANDIE on CPAP, asthma, vitamin D deficiency, GERD, history of diverticulitis with colon perforation, RLS, fibromyalgia, chronic pain syndrome, hypercoagulability, history of gastric bypass, depression, history of PTSD, history of PE who presents to ED with frequent falls over the last several days. History from the patient is somewhat limited at present due to lethargy. Apparently, pt's pregabalin was recently increased to TID - since the increase, she has noted increased issues with her balance and falls. This morning, she was attempting to use the bathroom and fell, hitting her head on the floor. She is unsure if she lost consciousness. She was ultimately able to crawl across the room to her phone as her life alert button wasn't working and she couldn't get off the floor. She lives in assisted living at [facility] and reports that staff had to help her off the floor. She was sent into the ED for evaluation due to these falls and hitting her head this morning when she is on anticoagulation. Pt has chronic pain and follows with pain management. She also has a chronic right shoulder dislocation that she has not yet been able to have surgically repaired. Last ECHO 05/07/23 - LVEF 55-59%, mild LAE, LV wall thickness mildly increased (concentric), grade I diastolic dysfunction, mild AVR, MR, TR, normal pulm artery pressure, proximal ascending aorta is relatively unchanged (5.2 cm) Admission Exam Per Admitting Provider Vital signs stable. Labs with subtherapeutic inr; UA suspicious for UTI Imaging with no hemorrhage/subdurnal hematoma Physical exam: General: intially hard to arouse, on reexamination pleasant and conversational, AO4 able to recall recent events, upset over changes over last year with health/independence HEENT: large hematoma over right orbit extending into scalp, nontender; pupils initallly pinpoint equal iso chronic buprenorphine patch CV RRR, no murmur appreciated RESP CTABL GI soft, NTND MSK appears to move all extremities equally, shoulders with bilateral pain 2/2 dislocation SKIN bilateral lymphedematous changes in lower extremities, no concerns for cellulitis Principal Dx & Hospital Course #1 = Principal Diagnosis (1) Recurrent falls: (2) Shoulder subluxation, right: (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 Oneal is a 72-year-old woman who has significant past medical history of chronic diastolic CHF, history of PSVT, HTN, thoracic aortic aneurysm, Edenilson- Danlos syndrome, secondary hyperparathyroidism, hypothyroidism, hyperlipidemia, BRANDIE on CPAP, asthma, vitamin D deficiency, GERD, history of diverticulitis with colon perforation, RLS, fibromyalgia, chronic pain syndrome, hypercoagulability, history of gastric bypass, depression, history of PTSD, history of PE who presented to ED with frequent falls over the last several days on 07/29. Patient fell off of toilet while sleeping overnight. Patient reported multiple episodes of falling asleep, she correlates this to increase in lyrica recently. Patient admitted for management of falls/syncopal like event. Patient feeling much better with cessation of lyrica, noting that she feels more clear cognitively. Patient transitioned to PO antiobiotics. plan to discharge to rehab. #Hypersomnolence 2/2 medication effect #Loss of consciousness with trauma to head #Recurrent Falls Likely multifactorial with infection and medication side effect Orthostatic vital signs negative Repeat imaging no concern for ICH Improving notably, discontinue lyrica -Continue fall precautions, PT/OT rehab -Treat infection as below #Acute uncomplicated cystitis -UA culture pending, e coli -Discharged with cefdinir 300mg BID #Chronic pain #Chronic right shoulder dislocation #Elhers-Danlos syndrome -Continue buprenorphine patch -Discontinue Lyrica -Percocet q6h prn given pain from trying to pick self off ground exacerbated shoulder pain -PT/OT #Chronic Hear Failure with preserved EF -s/p 1 IV furosemide, otherwise compensated -Continue PO torsemide 40mg daily -Continue potassium supplementation, transitioned to powder given inability to tolerate pills (crushing at home) #Protein C deficiency #Subtherapeutic INR -IINR 1.6 on admission -Continue heparin -Warfarin 7.5mg tablet tonight - lovenox bridge OP with goal 2-3 INR, close anticoagulation monitoring #Hematoma, right scalp -Stable, nontender CTM, ICE pack prn #Hypothyroid Continue synthroid #PTSD #Anxiety Continue mirtazpine and hydroxyzine prn On day of discharge, patient initially apprehensive to go to rehab, but agreeable after discussion with liaison and CM. Patient denied any further issues with falling asleep inappropriately, any uncontrolled pain, or other acute concerns. Discharge Exam Constitutional WD/WN, vitals as above Eyes ecchymosis resolving around right orbit/scalp, soft Cardiovascular RRR, no murmur, no edema Chest (Breasts) normal inspection/palpation of breasts Skin bilateral lymphedematous changes, stable Updated Medication List Medication Instructions Recorded Confirmed Type atorvastatin 20 mg tablet 20 mg PO .@79901/09/22 07/29/23 History buprenorphine 15 mcg/hour weekly 1 patch topical WK 01/09/22 07/29/23 History transdermal patch carbidopa 25 mg-levodopa 100 mg 1 tab PO .0800,1200,1600,199901/09/22 07/29/23 History tablet fluticasone propionate 50 2 spray intranasal .@799,199901/09/22 07/29/23 History mcg/actuation nasal spray,suspension (Flonase Allergy Relief) hydroxyzine HCl 25 mg tablet 25 mg PO QID PRN ANXIETY/ITCHING 01/09/22 07/29/23 History levothyroxine 50 mcg tablet 50 mcg PO .@79901/09/22 07/29/23 History montelukast 10 mg tablet 10 mg PO .@199901/09/22 07/29/23 History Saccharomyces boulardii 250 mg 250 mg PO .@799,199910/03/22 07/29/23 History capsule (Florastor) warfarin 4 mg tablet 4 mg PO UD 10/03/22 07/29/23 History acetaminophen 500 mg tablet 1,000 mg PO Q8H PRN TEMP >100F/PAIN 12/10/22 07/29/23 History (Tylenol Extra Strength) loperamide 2 mg tablet 2 mg PO Q6H PRN Diarrhea 12/10/22 07/29/23 History metoprolol tartrate 25 mg tablet 12.5 mg PO .@79912/10/22 07/29/23 History mirtazapine 30 mg tablet 30 mg PO .@199912/10/22 07/29/23 History ergocalciferol (vitamin D2) 25,000 50,000 unit PO .WED@0803/07/23 07/29/23 History unit capsule omeprazole 20 mg tablet,delayed 40 mg PO .@79907/29/23 07/29/23 History release ropinirole 5 mg tablet 2.5 mg PO .@0800,1500,199907/29/23 07/29/23 History torsemide 20 mg tablet 20 mg PO .@1200 07/29/23 07/29/23 History torsemide 20 mg tablet 40 mg PO .@0807/29/23 07/29/23 History warfarin 6 mg tablet 6 mg PO UD 07/29/23 07/29/23 History cefdinir 300 mg capsule 300 mg PO Q12H 5 days #10 caps 07/31/23 Rx enoxaparin 80 mg/0.8 mL 71 mg (0.71 mL) subcut Q12H 5 days 07/31/23 Rx subcutaneous syringe #8 mL midodrine 2.5 mg tablet 3.75 mg (1.5 x 2.5 mg) PO UD #30 07/31/23 07/29/23 Rx tabs oxycodone-acetaminophen 5 mg-325 1 tab PO Q6H PRN pain 5 days #20 07/31/23 Rx mg tablet (Percocet) tabs potassium chloride 20 mEq oral 20 meq PO DAILY #30 ea 07/31/23 Rx packet Hospital Stay Data Consultations 07/29/23 07:07 ED Decision to Admit Stat Diagnostic Imagining Performed 07/29/23 04:42 CT cervical spine wo con Stat CT head/brain wo con Stat 07/29/23 08:50 CT head/brain wo con Stat 07/30/23 13:40 Carotid duplex [US carotid doppler BI] Routine Pending Results Patient Have Any Pending Studies at Discharge: No Discharge Instructions Given to Patient (Per Discharging Provider) You were admitted for concerns of falls, and notably falling asleep frequently through out the day--leading to fall off of toilet and trauma to head. Your work up was negative for orthostatic hypotension, carotid issues, and arrhythmias. Your work up did reveal a urinary tract infection. You also noted improvement when stopping the Pregabalin. -Please discontinue Pregabalin. A short supply of Percocet was prescribed given the acute on chronic shoulder pain you feel after trying to lift yourself off the ground with the chronic dislocations/tears in your shoulder. -Please continue Cefdinir 300mg two times a day. This medication will help fight the urinary tract infection. It is in capsule form, therefore you can try to mix with applesauce to aid in digestion. Please take all capsules. -Please use lovenox two times a day. Your INR is 1.6. You received a dose of 7.5mg warfarin on 07/30. You are starting an oral antibiotic and this can alter your warfarin metabolism. Please ensure follow up with your Anticoagulation Specialist to aid in dosing to achieve therapeutic goal given your Protein C deficiency/hypercoagulable state. -Your potassium home dosing was adjusted and transitioned to powder as your reported intolerance to pill and crushing it at home. Total Time Total Time Spent Total Time Spent (In Minutes): 45
[2023-07-31] MEDS: WARFARIN SOD 7.5 MG TAB PO SCH (16:52)
[2023-07-31] MEDS: oxyCODONE/ACETAMINOPHEN 5mg/325mg TAB PO PRN (17:00)
== END 2023-07-31 17:00 | DRG 690 ==
LOC: ED 04:32 → EDINP 08:49 → 2N 10:54

== ENCOUNTER 2023-10-30 14:07 | Inpatient (IN) ==
--- NOTE | 2023-10-30 14:20 | ED Triage Note ---
Date of Service October 30, 2023 Provider in Triage Author: Laura Pickard History of Present Illness This patient was briefly evaluated while in triage. An abbreviated physical exam was performed. This patient is a 73-year-old Female who presents to the ED for evaluation of BLE edema with cellulitis, lives at [facility]. She is currently not being treated for infection, then states she has been on cephalexin and rocephin. Reports malabsorption disorder and PO medications do not work. Pt is tearful in triage, vitals stable. Physical Exam CONSTITUTIONAL: in acute pain, from swelling BLE. SKIN: cellulitis of BLE, wrapped in triage, weeping CARDIAC: regular rate and rhythm RESPIRATORY: in no respiratory distress, lungs clear to auscultation ABDOMEN: no TTP MSK: 5/5 strength throughout NEURO: no neuro deficits, alert and oriented x 3 Initial orders for labs and / or imaging were placed and patient was placed in the waiting area until a bed is available. Please see further documentation for the full ED course.
[2023-10-30 15:25] LABS: Alanine Aminotransferase 3 U/L (7-52); Albumin Globulin Ratio 1.6 (0.9-2); Albumin Level 3.8 gm/dl (3.4-5.0); Alkaline Phosphatase 155 U/L (34-104); Anion Gap 6 (3-11); Aspartate Aminotransferase 15 U/L (13-39); BUN Creatinine Ratio 36.7 (10-20); Bilirubin,Total 0.8 mg/dl (0.2-1.0); Blood Urea Nitrogen 36 mg/dl (6-23); Calcium 8.8 mg/dl (8.6-10.3); Carbon Dioxide 28 mmol/L (21-32); Chloride 103 mmol/L (98-107); Est GFR (African American) 66.3 ml/min; Est GFR (Non-African American) 57.2 ml/min; Globulin 2.4 gm/dl (2.5-4.0); Glucose 108 mg/dl (70-99(Fasting)); Potassium 3.9 mmol/L (3.5-5.1); Sodium 137 mmol/L (136-145); Total Protein 6.2 gm/dl (6.0-8.3)
[2023-10-30 15:35] LABS: Hematocrit (blood only) 34.4 % (37.0-47.0); Hemoglobin 10.7 g/dl (12.0-16.0); Mean Corpuscular Hemoglobin 29.6 pg (25.0-34.0); Mean Corpuscular Hgb Conc 31.1 g/dL (32.0-36.0); Mean Corpuscular Volume 95.3 fL (80.0-100.0); Mean Platelet Volume 9.3 fL (9.4-12.4); Platelet Count 250 K/uL (130-400); RDW Coefficient of Variation 16.1 % (11.5-14.5); Red Blood Count 3.61 M/uL (4.20-5.40); White Blood Count 15.19 K/ul (4.8-10.8)
[2023-10-30 15:42] LABS: Partial Thromboplastin Time 57 Seconds (21-31); Prothrombin Time 40.6 Seconds (9.0-12.0)
[2023-10-30 16:01] LABS: Basophils # (auto) 0.04 K/uL (0.00-0.20); Basophils % (auto) 0.3 %; Eosinophils # (auto) 0.02 K/uL (0.00-0.50); Eosinophils % (auto) 0.1 %; Immature Granulocytes # (auto) 0.24 K/uL (0.01-0.20); Immature Granulocytes % (auto) 1.6 %; Lymphocytes % (auto) 5.3 %; Monocytes # (auto) 0.66 K/uL (0.11-0.59); Monocytes % (auto) 4.3 %; Neutrophils # (auto) 13.43 K/uL (1.40-6.50); Neutrophils % (auto) 88.4 %
--- NOTE | 2023-10-30 16:57 | Emergency Department Note ---
Impression & Plan Sepsis, Leukocytosis, Cellulitis ED Provider Note NAME: GRETTA PRAJAPATI AGE: 73 SEX: F : 1950 ARRIVES VIA: Ambulance INFORMANT: Patient ED PROVIDER(S): Shakir Carmichael DO CHIEF COMPLAINT: Weakness, leg pain HPI: Patient is a 73-year-old female who presents to the ER for pain in her bilateral lower extremities with redness which has been worsening. She has been feeling very weak and rundown. She denies any headache but admits to intermittent chest pain when she gets severe pain. No belly pain, nausea, vomiting, or diarrhea. No dysuria, urgency, or frequency. No other exacerbating or remitting factors. ADDITIONAL HISTORY OBTAINED: Per HPI Chronic Medical/Social Conditions Affecting Care: Per HPI PAST MEDICAL HISTORY:See Below PAST SURGICAL HISTORY:See Below FAMILY HISTORY:See Below SOCIAL HISTORY:See Below HOME MEDICATIONS:See Below ALLERGIES:See Below VITALS:See Below PHYSICAL EXAMINATION: GENERAL: Sitting up in bed, alert, morbidly obese, disheveled EYE EXAM: normal conjunctiva. PERRL and EOM's grossly intact. OROPHARYNX: mucous membranes are moist NECK: supple, no nuchal rigidity, no adenopathy, non-tender LUNGS: Clear to auscultation. Normal chest wall mechanics HEART: no murmurs, S1 normal and S2 normal ABDOMEN: abdomen soft, non-tender, normo-active bowel sounds, no masses, no rebound or guarding. BACK: Back is symmetrical on inspection and there is no deformity, no midline tenderness, no CVA tenderness. SKIN: Erythema of the bilateral legs left worse than right with significant pitting edema. Skin is warm and tender on the left calf UPPER EXTREMITIES: upper extremities are grossly normal. LOWER EXTREMITIES: No pitting edema. NEURO EXAM: Normal sensorium, cranial nerves II-XII grossly intact, normal speech, no gross weakness of arms, no gross weakness of legs. MEDICAL DECISION MAKING: Patient is a 73-year-old female who presents ER for above-stated complaint. IV was established blood was obtained. Labs show mild leukocytosis of 15,000. Mild anemia 10.7. INR was elevated at 4.0. LFTs unremarkable. Troponin was elevated at 50. UA was unremarkable. Patient was given IV fluids as well as daptomycin and Rocephin. She was given judicious fluids due to history of CHF. Systolic pressures were in the low 100s and did at 1 point trend down to the 80s but then trended back up with fluid hydration. Patient was fluid responsive. She was discussed case with the hospitalist admitted for further workup Consults/Care Managements Discussions: Per [facility] Triage Nursing notes reviewed. Limited review of prior medical records performed Vital Signs: reviewed and remarkable for hypotension and tachycardic Differential diagnosis: Differential diagnosis includes etiologies such as sepsis, UTI, pneumonia, metabolic, electrolyte abnormalities, cardiac sources, intracerebral event, toxicologic, neurological, as well as others were entertained. ER treatment provided: See below Diagnostics interpreted by me include EKG and cardiac monitoring as listed below: -Cardiac Monitoring: An order was placed for continuous cardiac monitoring. The monitor shows a rate of 101 with sinus rhythm. -ECG: A-fib rate 121 The normal axis Right bundle branch block QTc 448 -Laboratory studies:Interpreted by me as stated above in MDM and shown below. Imaging studies: Xrays: As interpreted by me: Portable AP upright 1 view of the chest shows enlarged heart CTs show: none Procedures:none Critical Care: I have personally spent 32 minutes of critical care time in the direct management of this patient. This includes bedside care, interpretation of diagnostic studies, and testing, discussion with consultants, patient, and family members, and other required patient management activities. This 32 minutes is in excess of all separately billable procedures. Past Med/Surg History Medical History (Updated 10/30/23 @ 22:12 by Shakir Carmichael DO) Elevated troponin Hx of blood clots Thyroid disease Skin cancer Head injury Recurrent falls Parkinson disease Acute kidney injury Acute exacerbation of chronic low back pain Opioid dependence Fibromyalgia Abdominal hernia Coagulopathy Hypokalemia Weakness Anemia History of DVT (deep vein thrombosis) chronic anticoagulation Protein C deficiency Dysphagia History of colon polyps Difficult intravenous access History of intestinal obstruction Bulging of intervertebral disc Osteoporosis Osteoarthritis Renal cyst History of colon polyps Gastroparesis Thyroid nodule Hearing deficit ADHD Peripheral neuropathy Tachycardia Hyperlipidemia Claustrophobia Sleep apnea intermittently able to tolerate CPAP Asthma uses PRN INH 3-4 x wk GERD (gastroesophageal reflux disease) Hypothyroidism Restless leg syndrome Edenilson-Danlos syndrome Pulmonary embolism 07/2018 - treated w/ lovenox - unk etiology Thoracic aortic aneurysm follows w/ Dr. Arredondo - evaluated within last 6 mo ISAC (generalized anxiety disorder) Surgical History Hx of melanoma excision shoulder Self extubation attempted post gastric bypass History of laparotomy History of left knee replacement History of intestinal surgery History of right knee joint replacement History of arthroscopy of left knee History of abdominoplasty + hernia repair History of bilateral breast reduction surgery History of cholecystectomy History of tonsillectomy History of gastric bypass History of esophagogastroduodenoscopy (EGD) History of colonoscopy 2019 Status post biopsy of thyroid gland benign S/P hysterectomy Family History Uncle Stomach cancer Cancer Family/Other Breast cancer Grandfather Cancer Mother Heart disease Hypertension Stroke Grandmother Heart disease Stroke Other No family history of adverse response to anesthesia No pertinent family history in first degree relatives Social History Smoking Status: Never smoker Second Hand Exposure: No; Do You Dip or Chew Tobacco: No; Hx Alcohol Use: Yes Alcohol type: wine and hard liquor Hx Substance Use: No Preferred Language: Nepalese Communication Ability: Effective Communication Ability Comment: pt is obtunded Visual Impairment: Limited Hearing Ability: Normal Plant Health Care Technician Required: No Beliefs That Will Affect Care: None marital status: Single Current Living Situation: Personal Care Facility Current Living Situation Comment: Condo - First Floor, able to specify name of Apartment Complex. current occupational status: retired How many Children do You have: 0 Feels Safe at Home: Yes Diet: regular during the past year weight has: remained stable Assistive Devices: Cane and Walker Allergies Allergies Allergy/AdvReac Type Severity Reaction Status Date / Time ammonia Allergy Severe FACE, Verified 09/26/23 10:47 LIPS, TONGUE EDEMA buspirone Allergy Severe NEURO Verified 09/26/23 10:47 COMPLICATIONS duloxetine Allergy Intermediate RASH Verified 09/26/23 10:47 ITCHING adhesive Allergy Mild skin tears Verified 09/26/23 10:47 vancomycin Allergy Unknown [facility] Verified 09/26/23 10:47 MED LIST diphenhydramine AdvReac Intermediate RESTLESS Verified 09/26/23 10:47 LEGS gabapentin AdvReac Intermediate MUSCLE Verified 09/26/23 10:47 STIFFNESS lisinopril AdvReac Intermediate cough Verified 09/26/23 10:47 NSAIDS (Non-Steroidal AdvReac Unknown not Verified 09/26/23 10:47 Anti-Inflamma supposed to use-S/P GASTRIC BYPASS venlafaxine AdvReac Unknown AFFECTS Verified 09/26/23 10:47 LEGS Home Meds Home Medications Medication Instructions Recorded Confirmed atorvastatin 20 mg tablet 20 mg PO .@0801/09/22 10/30/23 buprenorphine 15 mcg/hour weekly 1 patch topical WK 01/09/22 10/30/23 transdermal patch carbidopa 25 mg-levodopa 100 mg 1 tab PO .0800,1200,1600,199901/09/22 10/30/23 tablet fluticasone propionate 50 2 spray intranasal .@799,199901/09/22 10/30/23 mcg/actuation nasal spray,suspension (Flonase Allergy Relief) hydroxyzine HCl 25 mg tablet 25 mg PO QID PRN ANXIETY/ITCHING 01/09/22 10/30/23 levothyroxine 50 mcg tablet 50 mcg PO .@79901/09/22 10/30/23 montelukast 10 mg tablet 10 mg PO .@199901/09/22 10/30/23 Saccharomyces boulardii 250 mg 250 mg PO .@799,199910/03/22 10/30/23 capsule (Florastor) warfarin 4 mg tablet 4 mg PO UD 10/03/22 10/30/23 acetaminophen 500 mg tablet 1,000 mg PO Q8H PRN TEMP >100F/PAIN 12/10/22 10/30/23 (Tylenol Extra Strength) loperamide 2 mg tablet 2 mg PO Q6H PRN Diarrhea 12/10/22 10/30/23 metoprolol tartrate 25 mg tablet 25 mg PO .@79912/10/22 10/30/23 mirtazapine 30 mg tablet 30 mg PO .@199912/10/22 10/30/23 ergocalciferol (vitamin D2) 25,000 50,000 unit PO .WED@79903/07/23 10/30/23 unit capsule omeprazole 20 mg tablet,delayed 40 mg PO .@79907/29/23 10/30/23 release ropinirole 5 mg tablet 2.5 mg PO .@0800,1499,199907/29/23 10/30/23 torsemide 20 mg tablet 40 mg PO .@799 07/29/23 10/30/23 warfarin 6 mg tablet 6 mg PO UD 07/29/23 10/30/23 cephalexin 500 mg capsule 500 mg PO BID 10/30/23 10/30/23 midodrine 2.5 mg tablet 3.75 mg PO TID 10/30/23 10/30/23 Previous Rx's Medication Instructions Recorded potassium chloride 20 mEq oral 20 meq PO DAILY #30 ea 07/31/23 packet Results & Data (ED) Vital Signs Vital Signs - 24 hr 10/30/23 14:13 10/30/23 16:46 10/30/23 17:38 Temperature 36.8 C Temperature Source Temporal Artery Scan Pulse Rate 105 H Pulse Rate [Apical] 109 H Pulse Rhythm [Apical] Regular Pulse Strength [Apical] Normal Respiratory Rate 18 20 Respiratory Effort / Characteristics Non-Labored Spontaneous Non-Labored Spontaneous Respiratory Depth Normal Normal Respiratory Pattern Regular Blood Pressure 95/66 L Blood Pressure [Right Arm] 105/78 Blood Pressure Mean 75 Blood Pressure Mean [Right Arm] 87 Blood Pressure Position Sitting Pulse Oximetry 98 94 94 Oxygen Delivery Method Room Air Room Air Room Air Sepsis Recent Fever Within 48 Hours No Sepsis New/Unexplained Change in Mental Status No Sepsis Action Taken by Nursing Physician Notified 10/30/23 18:00 Temperature Temperature Source Pulse Rate Pulse Rate [Apical] 120 H Pulse Rhythm [Apical] Regular Pulse Strength [Apical] Normal Respiratory Rate 23 Respiratory Effort / Characteristics Non-Labored Respiratory Depth Normal Respiratory Pattern Regular Blood Pressure Blood Pressure [Right Arm] 110/88 Blood Pressure Mean Blood Pressure Mean [Right Arm] 95 Blood Pressure Position Pulse Oximetry 93 Oxygen Delivery Method Room Air Sepsis Recent Fever Within 48 Hours Sepsis New/Unexplained Change in Mental Status Sepsis Action Taken by Nursing Laboratory Data 10/30/23 14:52 10/30/23 14:52 Lab Results 10/30/23 10/30/23 10/30/23 Range/Units 14:52 17:24 17:32 WBC 15.19 H (4.8-10.8) K/ul RBC 3.61 L (4.20-5.40) M/uL Hgb 10.7 L (12.0-16.0) g/dl Hct 34.4 L (37.0-47.0) % MCV 95.3 (80.0-100.0) fL MCH 29.6 (25.0-34.0) pg MCHC 31.1 L (32.0-36.0) g/dL RDW Std Deviation 57.0 H (36.4-46.3) fL RDW Coeff of [place]ft[place] 16.1 H (11.5-14.5) % Plt Count 250 (130-400) K/uL MPV 9.3 L (9.4-12.4) fL Immature Gran % (Auto) 1.6 % Neut % (Auto) 88.4 % Lymph % (Auto) 5.3 % [place] % (Auto) 4.3 % Eos % (Auto) 0.1 % Baso % (Auto) 0.3 % Neut # (Auto) 13.43 H (1.40-6.50) K/uL Lymph # (Auto) 0.80 L (1.20-3.40) K/uL [place] # (Auto) 0.66 H (0.11-0.59) K/uL Eos # (Auto) 0.02 (0.00-0.50) K/uL Baso # (Auto) 0.04 (0.00-0.20) K/uL Immature Gran # (Auto) 0.24 H (0.01-0.20) K/uL PT 40.6 H (9.0-12.0) Seconds INR 4.0 H (0.9-1.1) APTT 57 H (21-31) Seconds PTT Ratio 2.0 Sodium 137 (136-145) mmol/L Potassium 3.9 (3.5-5.1) mmol/L Chloride 103 (98-107) mmol/L Carbon Dioxide 28 (21-32) mmol/L Anion Gap 6 (3-11) BUN 36 H (6-23) mg/dl Creatinine 0.98 (0.6-1.2) mg/dl Est Cr Clr Drug Dosing Not Reportable Est GFR ( Amer) 66.3 ml/min Est GFR (Non-Af Amer) 57.2 ml/min BUN/Creatinine Ratio 36.7 H (10-20) Glucose 108 H (70-99(Fasting)) mg/dl Lactate 1.3 (0.4-2.0) mmol/L Calcium 8.8 (8.6-10.3) mg/dl Magnesium 2.3 (1.7-2.4) mg/dl Total Bilirubin 0.8 (0.2-1.0) mg/dl Direct Bilirubin 0.2 (0-0.2) mg/dl AST 15 (13-39) U/L ALT 3 L (7-52) U/L Alkaline Phosphatase 155 H (34-104) U/L Troponin I High Sens 51.6 H* 52.9 H* (0-14) pg/ml Total Protein 6.2 (6.0-8.3) gm/dl Albumin 3.8 (3.4-5.0) gm/dl Globulin 2.4 L (2.5-4.0) gm/dl Albumin/Globulin Ratio 1.6 (0.9-2) Procalcitonin 1.83 H (0-0.5) ng/ml TSH 0.498 (0.300-4.500) uIu/ml Urine Color Urine Appearance (Clear) Urine pH (4.5-7.5) Ur Specific [place] (1.000-1.030) Urine Protein (Negative) Urine Glucose (UA) (Negative) Urine Ketones (Negative) Urine Blood (Negative) Urine Nitrite (Negative) Urine Bilirubin (Negative) Urine Urobilinogen (Negative) Ur Leukocyte Esterase (Negative) Urine WBC (Auto) (0-5) /hpf Urine RBC (Auto) (0-2) /hpf U Hyaline Cast (Auto) (0-2) /lpf U Epithel Cells (Auto) (0-2) /hpf Urine Bacteria (Auto) (None Seen) 10/30/23 Range/Units 18:02 WBC (4.8-10.8) K/ul RBC (4.20-5.40) M/uL Hgb (12.0-16.0) g/dl Hct (37.0-47.0) % MCV (80.0-100.0) fL MCH (25.0-34.0) pg MCHC (32.0-36.0) g/dL RDW Std Deviation (36.4-46.3) fL RDW Coeff of [place]ftaly (11.5-14.5) % Plt Count (130-400) K/uL MPV (9.4-12.4) fL Immature Gran % (Auto) % Neut % (Auto) % Lymph % (Auto) % [place] % (Auto) % Eos % (Auto) % Baso % (Auto) % Neut # (Auto) (1.40-6.50) K/uL Lymph # (Auto) (1.20-3.40) K/uL [place] # (Auto) (0.11-0.59) K/uL Eos # (Auto) (0.00-0.50) K/uL Baso # (Auto) (0.00-0.20) K/uL Immature Gran # (Auto) (0.01-0.20) K/uL PT (9.0-12.0) Seconds INR (0.9-1.1) APTT (21-31) Seconds PTT Ratio Sodium (136-145) mmol/L Potassium (3.5-5.1) mmol/L Chloride (98-107) mmol/L Carbon Dioxide (21-32) mmol/L Anion Gap (3-11) BUN (6-23) mg/dl Creatinine (0.6-1.2) mg/dl Est Cr Clr Drug Dosing Est GFR ( Amer) ml/min Est GFR (Non-Af Amer) ml/min BUN/Creatinine Ratio (10-20) Glucose (70-99(Fasting)) mg/dl Lactate (0.4-2.0) mmol/L Calcium (8.6-10.3) mg/dl Magnesium (1.7-2.4) mg/dl Total Bilirubin (0.2-1.0) mg/dl Direct Bilirubin (0-0.2) mg/dl AST (13-39) U/L ALT (7-52) U/L Alkaline Phosphatase (34-104) U/L Troponin I High Sens (0-14) pg/ml Total Protein (6.0-8.3) gm/dl Albumin (3.4-5.0) gm/dl Globulin (2.5-4.0) gm/dl Albumin/Globulin Ratio (0.9-2) Procalcitonin (0-0.5) ng/ml TSH (0.300-4.500) uIu/ml Urine Color Yellow Urine Appearance Clear (Clear) Urine pH 5.5 (4.5-7.5) Ur Specific [place] 1.021 (1.000-1.030) Urine Protein Trace H (Negative) Urine Glucose (UA) Negative (Negative) Urine Ketones Negative (Negative) Urine Blood Negative (Negative) Urine Nitrite Negative (Negative) Urine Bilirubin Negative (Negative) Urine Urobilinogen Negative (Negative) Ur Leukocyte Esterase Negative (Negative) Urine WBC (Auto) 0-5 (0-5) /hpf Urine RBC (Auto) 0-2 (0-2) /hpf U Hyaline Cast (Auto) 0-2 (0-2) /lpf U Epithel Cells (Auto) 0-2 (0-2) /hpf Urine Bacteria (Auto) None Seen (None Seen) Administered Medications Discontinued Medications Ceftriaxone Sodium (Rocephin) 2,000 mg in 50 mls @ 100 mls/hr IV NOW STA Stop: 10/30/23 17:21 Last Infusion: 10/30/23 18:03 Dose: Infused Documented By: Admin: 10/30/23 17:32 Dose: 100 mls/hr Documented By: OAC Daptomycin 200 mg/ Syringe 4 mls @ 2 mls/min IV NOW STA; Protocol Stop: 10/30/23 16:53 Last Admin: 10/30/23 17:32 Dose: 2 mls/min Documented By: OAC Sodium Chloride (Nss) 1,000 mls @ 999 mls/hr IV .Q1H1M ONE Stop: 10/30/23 17:54 Last Infusion: 10/30/23 18:03 Dose: Infused Documented By: Admin: 10/30/23 17:02 Dose: 999 mls/hr Documented By: OAC Acetaminophen (Ofirmev) 1,000 mg in 100 mls @ 400 mls/hr IV NOW STA Stop: 10/30/23 18:31 Last Admin: 10/30/23 18:34 Dose: 400 mls/hr Documented By: OAC Sodium Chloride (Nss) 500 mls @ 999 mls/hr IV .Q31M ONE Stop: 10/30/23 18:47 Last Admin: 10/30/23 18:35 Dose: 999 mls/hr Documented By: OAC Metoprolol Tartrate (Metoprolol Tartrate 25 Mg Tab) 12.5 mg PO ONE ONE Stop: 10/30/23 18:20 Last Admin: 10/30/23 18:34 Dose: 12.5 mg Documented By: OAC Oxycodone HCl (Oxycodone Hcl Ir 5 Mg Tab (Immediate Release)) 5 mg PO NOW STA Stop: 10/30/23 18:31 Last Admin: 10/30/23 18:35 Dose: 5 mg Documented By: OAC Imaging Data Radiologist's Impression: Chest X-Ray 10/30/23 16:46 XR chest 1V portable HISTORY: Sepsis COMPARISON: Chest 06/28/2023. FINDINGS: No pneumothorax. No pleural effusions. Surgical clips again noted within the left upper quadrant. No focal lung consolidations to suggest a pneumonia. No evidence for pulmonary edema. The heart remains mildly enlarged. No acute fractures identified. Slightly rotated study. Chronic degenerative changes again noted within the shoulders. IMPRESSION: Stable cardiomegaly. Otherwise, no acute process within the chest. ACT 112: Negative or not required by law. Electronically signed by: Tavares Jaramillo M.D. 10/30/2023 5:43 PM Discharge Plan Visit Data Chief Complaint: Swelling/Edema to Extremity ED Provider: Shakir Carmichael Discharge Problem: Sepsis, Leukocytosis, Cellulitis Discharge Instructions Interventions: ED Discharge Assessment Last Done: 10/30/23 20:53 Discharge Problem: Sepsis Qualifiers: Sepsis type: sepsis due to unspecified organism Sepsis acute organ dysfunction status: unspecified Qualified Code(s): A41.9 - Sepsis, unspecified organism Leukocytosis Qualifiers: Leukocytosis type: unspecified Qualified Code(s): D72.829 - Elevated white blood cell count, unspecified Cellulitis Qualifiers: Site of cellulitis: unspecified site Qualified Code(s): L03.90 - Cellulitis, unspecified
[2023-10-30] MEDS: SODIUM CHLORIDE 0.9% 1,000 ML IV ONE (17:02)
--- NOTE | 2023-10-30 17:29 | History & Physical Report ---
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: (11) Chronic heart failure with preserved ejection fraction (HFpEF): (12) Chronic hypotension: (13) Hypothyroidism: (14) Restless leg syndrome: (15) BRANDIE (obstructive sleep apnea): Plan: Patient is 73-year-old female with PMH POTS, chronic low BP, chronic pain, chronic right shoulder dislocation, Edenilson-Danlos syndrome, protein C deficiency, history DVT, PE, chronic anticoagulation with warfarin, chronic HFpEF, hypothyroidism, chronic anemia, BRANDIE, PTSD, anxiety, paroxysmal s upraventricular tachycardia, obesity, history gastric bypass, and others listed below presented to ER with complaint of leg redness. Treated outpatient with Keflex and a dose of IM Rocephin without relief Left lower extremity cellulitis Leukocytosis Sepsis Tachycardia In ER afebrile, P: 105, R: 18, BP 95/66, 98% on room air. WBC: 15, lactate: 1.3, procalcitonin: 1.8. UA unremarkable. CXR without infiltrate. Meets sepsis criteria Blood cultures pending In ER given 1L NSS, Rocephin, daptomycin Patient reevaluated with HR 114, R: 20, BP 110/88, 94% on room air, brisk capillary refill, mentating normally. Patient's only complaint is of her chronic pain and is requesting pain medicine. Denies ABBOTT, CP, SOB, dizziness, abdominal pain Give additional NSS bolus Patient with known chronic hypotension with reported SBP's typically in the 90s. Is on chronic midodrine. Will continue midodrine Zosyn, daptomycin Monitor on mortar mixer vitals Elevated troponin: 51--> 52.9. likely demand ischemia from tachycardia Trend troponin Patient thinks missed metoprolol tartrate dose today, will dose 12.5 mg now and plan to resume 25 mg daily with holding parameters Echo DVT less likely given supratherapeutic INR, 4.0 CBC, BMP in a.m. If no improvement or worsening consider cardiology consult History of POTS Chronic low BPs On midodrine, plan to continue Hx of PE/DVT Protein C deficiency Hypercoagulable state Supratherapeutic INR hold warfarin INR: 4.0 Hold home warfarin, repeat INR in a.m. to determine further dosing Hx of Parkinson RLS Continue ropinirole, carbidopa levodopa States uses rollator at baseline PT/OT eval BRANDIE CPAP as tolerated. Patient states uses intermittently Chronic Anemia Hgb: 10.7. Baseline ~10's Monitor Chronic lower extremity edema Chronic HFpEF pt with chronic edema Hold home torsemide and reevaluate tomorrow Chronic Pain Ehler Danlos syndrome Chronic R shoulder dislocation Patient given IV Tylenol and 1 oxycodone in ER Continue home pain meds Hypothyroidism TSH pending Continue levothyroxine DVT Prophylaxis Currently supratherapeutic INR, monitor INR Full code as per discussion with pt Currently resides at [facility] Follows with Dr Lavern Gomez for routine care Pt was seen and care coordinated with Dr Sanford. See addendum I spent a total of 80minutes reviewing notes, outpatient records, labs, medicati on, coordinating, documenting and providing care for this patient excluding time spent in the performance of separately billed services. History of Present Illness Chief Complaint: leg redness Primary Care Provider: [facility] Patient is 73-year-old female with PMH POTS, chronic low BP, chronic pain, chronic right shoulder dislocation, Edenilson-Danlos syndrome, protein C deficiency, history DVT, PE, chronic anticoagulation with warfarin, chronic HFpEF, hypothyroidism, chronic anemia, BRANDIE, PTSD, anxiety, paroxysmal supraventricular tachycardia, obesity, history gastric bypass, and others listed below presented to ER with complaint of leg redness. History obtained from patient, inpatient and outpatient chart review. Patient reports has been having bilateral lower extremity redness. She reports her left leg has recently been worse than right leg. She reports has been having seeping from [facility]. Was seen outpatient it is reported on 10/24/2023 patient was given IM Rocephin. She is currently on Keflex. Patient reports chronic bilateral lower extremity edema and she does not think she has had any worsening edema however is unsure. Denies any fever or chills. Patient denies any chest pain or shortness of breath. Her complaint currently is chronic pain and needing something for pain. Patient reports chronic pain, chronic back pain, chronic shoulder pain, reports has been having dental pain as her dental partial broke recently. Reports bilateral lower extremity pain. Patient states increased pain to left lower extremity since has had increased redness. Denies fever/chills, diaphoresis, N/V/D/C, ABBOTT, syncope, vision changes, neck pain, CP, SOB, orthopnea, palpitations, cough, sore throat, rhinorrhea, abdominal pain, other rashes, dysuria, urinary frequency, hematuria. Allergies Allergy/AdvReac Type Severity Reaction Status Date / Time ammonia Allergy Severe FACE, Verified 09/26/23 10:47 LIPS, TONGUE EDEMA buspirone Allergy Severe NEURO Verified 09/26/23 10:47 COMPLICATIONS duloxetine Allergy Intermediate RASH Verified 09/26/23 10:47 ITCHING adhesive Allergy Mild skin tears Verified 09/26/23 10:47 vancomycin Allergy Unknown ON [facility] Verified 09/26/23 10:47 MED LIST diphenhydramine AdvReac Intermediate RESTLESS Verified 09/26/23 10:47 LEGS gabapentin AdvReac Intermediate MUSCLE Verified 09/26/23 10:47 STIFFNESS lisinopril AdvReac Intermediate cough Verified 09/26/23 10:47 NSAIDS (Non-Steroidal AdvReac Unknown not Verified 09/26/23 10:47 Anti-Inflamma supposed to use-S/P GASTRIC BYPASS venlafaxine AdvReac Unknown AFFECTS Verified 09/26/23 10:47 LEGS Home Medications Medication Instructions Recorded Confirmed Type atorvastatin 20 mg tablet 20 mg PO .@0801/09/22 10/30/23 History buprenorphine 15 mcg/hour weekly 1 patch topical WK 01/09/22 10/30/23 History transdermal patch carbidopa 25 mg-levodopa 100 mg 1 tab PO .0800,1200,1600,199901/09/22 10/30/23 History tablet fluticasone propionate 50 2 spray intranasal .@799,199901/09/22 10/30/23 History mcg/actuation nasal spray,suspension (Flonase Allergy Relief) hydroxyzine HCl 25 mg tablet 25 mg PO QID PRN ANXIETY/ITCHING 01/09/22 10/30/23 History levothyroxine 50 mcg tablet 50 mcg PO .@0801/09/22 10/30/23 History montelukast 10 mg tablet 10 mg PO .@199901/09/22 10/30/23 History Saccharomyces boulardii 250 mg 250 mg PO .@10/03/22 10/30/23 History capsule (Florastor) warfarin 4 mg tablet 4 mg PO UD 10/03/22 10/30/23 History acetaminophen 500 mg tablet 1,000 mg PO Q8H PRN TEMP >100F/PAIN 12/10/22 10/30/23 History (Tylenol Extra Strength) loperamide 2 mg tablet 2 mg PO Q6H PRN Diarrhea 12/10/22 10/30/23 History metoprolol tartrate 25 mg tablet 25 mg PO .@79912/10/22 10/30/23 History mirtazapine 30 mg tablet 30 mg PO .@199912/10/22 10/30/23 History ergocalciferol (vitamin D2) 25,000 50,000 unit PO .WED@79903/07/23 10/30/23 History unit capsule omeprazole 20 mg tablet,delayed 40 mg PO .@79907/29/23 10/30/23 History release ropinirole 5 mg tablet 2.5 mg PO .@0800,1499,199907/29/23 10/30/23 History torsemide 20 mg tablet 40 mg PO .@79907/29/23 10/30/23 History warfarin 6 mg tablet 6 mg PO UD 07/29/23 10/30/23 History potassium chloride 20 mEq oral 20 meq PO DAILY #30 ea 07/31/23 10/30/23 Rx packet cephalexin 500 mg capsule 500 mg PO BID 10/30/23 10/30/23 History midodrine 2.5 mg tablet 3.75 mg PO TID 10/30/23 10/30/23 History Past Med/Surg History Medical History (Updated 10/30/23 @ 22:12 by Shakir Carmichael DO) Elevated troponin Hx of blood clots Thyroid disease Skin cancer Head injury Recurrent falls Parkinson disease Acute kidney injury Acute exacerbation of chronic low back pain Opioid dependence Fibromyalgia Abdominal hernia Coagulopathy Hypokalemia Weakness Anemia History of DVT (deep vein thrombosis) chronic anticoagulation Protein C deficiency Dysphagia History of colon polyps Difficult intravenous access History of intestinal obstruction Bulging of intervertebral disc Osteoporosis Osteoarthritis Renal cyst History of colon polyps Gastroparesis Thyroid nodule Hearing deficit ADHD Peripheral neuropathy Tachycardia Hyperlipidemia Claustrophobia Sleep apnea intermittently able to tolerate CPAP Asthma uses PRN INH 3-4 x wk GERD (gastroesophageal reflux disease) Hypothyroidism Restless leg syndrome Edenilson-Danlos syndrome Pulmonary embolism 07/2018 - treated w/ lovenox - unk etiology Thoracic aortic aneurysm follows w/ Dr. Arredondo - evaluated within last 6 mo ISAC (generalized anxiety disorder) Surgical History Hx of melanoma excision shoulder Self extubation attempted post gastric bypass History of laparotomy History of left knee replacement History of intestinal surgery History of right knee joint replacement History of arthroscopy of left knee History of abdominoplasty + hernia repair History of bilateral breast reduction surgery History of cholecystectomy History of tonsillectomy History of gastric bypass History of esophagogastroduodenoscopy (EGD) History of colonoscopy 2019 Status post biopsy of thyroid gland benign S/P hysterectomy Family History Uncle Stomach cancer Cancer Family/Other Breast cancer Grandfather Cancer Mother Heart disease Hypertension Stroke Grandmother Heart disease Stroke Other No family history of adverse response to anesthesia No pertinent family history in first degree relatives Social History Smoking Status: Never smoker Second Hand Exposure: Yes; Do You Dip or Chew Tobacco: No; Tobacco Cessation Education Requested by Patient: No Hx Alcohol Use: Yes Alcohol type: wine and hard liquor Hx Substance Use: No Preferred Language: Eritrean Communication Ability: Effective Communication Ability Comment: pt is obtunded Visual Impairment: Limited Hearing Ability: Normal Icd 9 Coder Required: No Beliefs That Will Affect Care: None marital status: Single Current Living Situation: Alone and Personal Care Facility Current Living Situation Comment: Condo - First Floor, able to specify name of Apartment Complex. current occupational status: retired How many Children do You have: 0 Other Information That Helps Us Care for You: No Feels Safe at Home: Yes Safety Concerns: Feels Safe At This Time Diet: regular during the past year weight has: remained stable Assistive Devices: Walker Review of Systems Review of Systems: All systems reviewed & are unremarkable except as noted in HPI & below Physical Exam Physical Exam: General: +complaining of back pain, extremity pain, dental pain but in no apparent distress, overweight elderly female Head: normocephalic, atraumatic Eyes: PERRL, EOM's intact, conjunctiva non-injected, anicteric ENT: normal inspection external ears, nose, mucous membranes moist Neck: supple, trachea midline Lungs: clear, no respiratory distress, no wheezing/rhonchi/rales CV: +tachycardia, rate 112, irregular rhythm, +BLE pretibial edema Abd: normal BS, soft, non-tender Ext: BLE: +edema, +chronic skin discoloration with LLE with chronic skin changes with overlying erythema, warmth and tenderness to palpation, +serous seeping, sensation to light touch intact Neuro: A&O x 3, no focal deficits noted, normal affect Skin: as above in extremities, otherwise warm, dry Results & Data Results & Data Vital Signs (Past 12 Hours) Vital Signs Temp Pulse Resp BP Pulse Ox O2 Del Method 10/30/23 14:13 36.8 C 105 H 18 95/66 L 98 Room Air Laboratory Results Short CBC 10/30/23 Range/Units 14:52 WBC 15.19 H (4.8-10.8) K/ul Hgb 10.7 L (12.0-16.0) g/dl Hct 34.4 L (37.0-47.0) % Plt Count 250 (130-400) K/uL BMP 10/30/23 14:52 Sodium 137 Potassium 3.9 Chloride 103 Carbon Dioxide 28 BUN 36 H Creatinine 0.98 Glucose 108 H Calcium 8.8 Liver Function 10/30/23 Range/Units 14:52 Total Bilirubin 0.8 (0.2-1.0) mg/dl Direct Bilirubin 0.2 (0-0.2) mg/dl AST 15 (13-39) U/L ALT 3 L (7-52) U/L Alkaline Phosphatase 155 H (34-104) U/L Albumin 3.8 (3.4-5.0) gm/dl Urine 10/30/23 Range/Units 18:02 Urine Color Yellow Urine Appearance Clear (Clear) Urine pH 5.5 (4.5-7.5) Ur Specific [place] 1.021 (1.000-1.030) Urine Protein Trace H (Negative) Urine Glucose (UA) Negative (Negative) Diagnostic Findings Chest X-Ray 10/30/23 16:46 XR chest 1V portable HISTORY: Sepsis COMPARISON: Chest 06/28/2023. FINDINGS: No pneumothorax. No pleural effusions. Surgical clips again noted within the left upper quadrant. No focal lung consolidations to suggest a pneumonia. No evidence for pulmonary edema. The heart remains mildly enlarged. No acute fractures identified. Slightly rotated study. Chronic degenerative changes again noted within the shoulders. IMPRESSION: Stable cardiomegaly. Otherwise, no acute process within the chest. ACT 112: Negative or not required by law. Electronically signed by: Tavares Jaramillo M.D. 10/30/2023 5:43 PM Supervising Physician Co-Signing Physician Notes Pt was seen and examined by myself, Jeannette Sanford MD on the day of service. Care was coordinated with Angela Corrales PA-C. 73yoF presenting with sepsis in the setting of R>L lower extremity cellulitis. Tachycardic, leukocytosis and infectious source lower extremities. Hypotensive, on midodrine at home. On exam pt crying out in pain as she states the blood pressure cuff on her arm is very painful. It was removed. Noted weeping to RLE with erythema and edema. Continue with Dapto and Zosyn. Continue midodrine, Hold home diuretic at this time, resume in AM based on BP Follow blood cultures, consider ID consult. Otherwise as above. I spent a total [id number] coordinating, documenting, and providing care for this patient excluding time spent in the performance of separately billed services (13) Hypothyroidism Hypothyroidism type: acquired Qualified Code(s): E03.9 - Hypothyroidism, unspecified
[2023-10-30] MEDS: cefTRIAXone SODIUM 2,000 MG/50 ML BAG IV STA (17:32)
[2023-10-30] MEDS: DAPTOmycin 200 MG in SYRINGE 0 ML IV STA (17:32)
[2023-10-30 17:34] LABS: Bilirubin Direct 0.2 mg/dl (0-0.2); Magnesium 2.3 mg/dl (1.7-2.4)
--- NOTE | 2023-10-30 17:44 | XRay Report ---
XR chest 1V portable HISTORY: Sepsis COMPARISON: Chest 06/28/2023. FINDINGS: No pneumothorax. No pleural effusions. Surgical clips again noted within the left upper efrain drant. No focal lung consolidations to suggest a pneumonia. No evidence for pulmonary edema. The hear t remains mildly enlarged. No acute fractures identified. Slightly rotated study. Chronic degenerativ e changes again noted within the shoulders. IMPRESSION: Stable cardiomegaly. Otherwise, no acute process within the chest. ACT 112: Negative or not required by law. Electronically signed by: Tavares Jaramillo M.D. 10/30/2023 5:43 PM
[2023-10-30 17:58] LABS: Troponin I High Sensitivity 51.6 pg/ml (0-14)
[2023-10-30 18:27] LABS: Appearance Urine Clear (Clear); Bacteria Urine Automated None Seen (None Seen); Bilirubin Urine Negative (Negative); Blood Urine Negative (Negative); Cast Urine Automated 0-2 /lpf (0-2); Color Urine Yellow; Epithelial Cell Urine Auto 0-2 /hpf (0-2); Glucose Urine UA Negative (Negative); Ketones Urine Negative (Negative); Leukocyte Esterase Urine Negative (Negative); Nitrite Urine Negative (Negative); Protein Urine Trace (Negative); RBC Urine Automated 0-2 /hpf (0-2); Specific Gravity Urine 1.021 (1.000-1.030); Urobilinogen Urine Negative (Negative); WBC Urine Automated 0-5 /hpf (0-5); pH Urine 5.5 (4.5-7.5)
[2023-10-30] MEDS: ACETAMINOPHEN 1,000 MG/100 ML VIAL IV STA (18:34)
[2023-10-30] MEDS: METOPROLOL TARTRATE 25 MG TAB PO ONE (18:34)
[2023-10-30] MEDS: oxyCODONE HCL IR 5 MG TAB (IMMEDIATE RELEASE) PO STA (18:35)
[2023-10-30] MEDS: SODIUM CHLORIDE 0.9% 500 ML IV ONE (18:35)
[2023-10-30 18:58] LABS: Troponin I High Sensitivity 52.9 pg/ml (0-14)
[2023-10-30] MEDS ORDERED: ONDANSETRON INJ 2 MG/ML 2 ML VIAL IV PRN (20:54)
[2023-10-30 21:50] LABS: Thyroid Stimulating Hormone 0.498 uIu/ml (0.300-4.500)
[2023-10-30] MEDS: MONTELUKAST SODIUM 10 MG TABLET PO SCH (22:15)
[2023-10-30] MEDS: MIDODRINE HCL 2.5 MG TAB PO SCH (22:18)
[2023-10-30] MEDS: PIPERACILLIN/TAZOBACTAM 4.5 GM in DEXTROSE 5% MINI-B 100 ML IV ONE (22:19)
[2023-10-31] MEDS: CARBIDOPA/LEVODOPA 25/100MG TAB PO SCH (00:32)
[2023-10-31] MEDS: SACCHAROMYCES BOULARDII 250 MG CAP PO SCH (00:33)
[2023-10-31] MEDS: rOPINIRole HCL 1 MG TABLET PO SCH (00:33)
[2023-10-31] MEDS: ATORVASTATIN 20 MG TAB PO SCH (00:33)
[2023-10-31] MEDS: MIRTAZAPINE TAB 15 MG TAB PO SCH (00:34)
[2023-10-31] MEDS: FLUTICASONE PROPIONATE NA SPR 16 GM BTL NAE SCH (00:46)
[2023-10-31] MEDS: METOPROLOL TARTRATE 25 MG TAB PO SCH ×2 (00:47→20:06)
[2023-10-31] MEDS ORDERED: METOPROLOL TARTRATE 25 MG TAB PO SCH ×2 (02:00→21:00)
[2023-10-31] MEDS: ACETAMINOPHEN 500 MG TAB PO SCH (05:09)
[2023-10-31] MEDS: PIPERACILLIN/TAZOBACTAM 4.5 GM in DEXTROSE 5% MINI-B 100 ML IV SCH (05:09)
[2023-10-31 07:48] LABS: Basophils # (auto) 0.02 K/uL (0.00-0.20); Basophils % (auto) 0.2 %; Eosinophils # (auto) 0.01 K/uL (0.00-0.50); Eosinophils % (auto) 0.1 %; Hemoglobin 8.4 g/dl (12.0-16.0); Immature Granulocytes # (auto) 0.04 K/uL (0.01-0.20); Immature Granulocytes % (auto) 0.4 %; Lymphocytes % (auto) 4.2 %; Mean Corpuscular Hemoglobin 29.8 pg (25.0-34.0); Mean Corpuscular Hgb Conc 31.1 g/dL (32.0-36.0); Mean Corpuscular Volume 95.7 fL (80.0-100.0); Mean Platelet Volume 9.6 fL (9.4-12.4); Monocytes # (auto) 0.51 K/uL (0.11-0.59); Monocytes % (auto) 5.3 %; Neutrophils # (auto) 8.63 K/uL (1.40-6.50); Neutrophils % (auto) 89.8 %; Platelet Count 198 K/uL (130-400); RDW Coefficient of Variation 16.2 % (11.5-14.5); RDW Standard Deviation 57.8 fL (36.4-46.3); Red Blood Count 2.82 M/uL (4.20-5.40); White Blood Count 9.61 K/ul (4.8-10.8)
[2023-10-31] MEDS ORDERED: MIDODRINE HCL 2.5 MG TAB PO SCH (08:00)
[2023-10-31 08:09] LABS: INR 2.9 (0.9-1.1); Prothrombin Time 29.5 Seconds (9.0-12.0)
[2023-10-31 08:20] LABS: Albumin Globulin Ratio 1.3 (0.9-2); Albumin Level 2.7 gm/dl (3.4-5.0); BUN Creatinine Ratio 39.5 (10-20); Bilirubin,Total 0.6 mg/dl (0.2-1.0); Calcium 8.3 mg/dl (8.6-10.3); Est GFR (African American) 90.2 ml/min; Est GFR (Non-African American) 77.8 ml/min; Globulin 2.1 gm/dl (2.5-4.0); Potassium 3.7 mmol/L (3.5-5.1); Total Protein 4.8 gm/dl (6.0-8.3)
[2023-10-31 08:24] LABS: Troponin I High Sensitivity 32.5 pg/ml (0-14)
[2023-10-31] MEDS: LEVOTHYROXINE SODIUM 50 MCG TABLET PO SCH (09:47)
[2023-10-31] MEDS: PANTOprazole 40 MG TAB PO SCH (09:48)
[2023-10-31] MEDS: CHECK BUPRENORPHINE PATCH SCH (09:49)
--- OUTSIDE RECORDS SUMMARY | 2023-10-31 09:56 | External Medical Summary | Summary of Care ---
Author Name Unknown Organization [facility] Address [address] [place] [address] Phone [phone] Care Team Providers Care Coal Trammer Name Role Phone Lavern Gomez Primary Care Provider Reason for Visit * Reason Onset Date Comments [facility]: Maintenance 10/29/2023 Encounter Details Date Type Department Care Team (Late st Contact Info) Description 10/29/2023 1:00 PM EDT Scheduled Telephone [facility], [facility] [address] [facility] [place] [address] Coordinator, [facility] [address] [facility] [place] [address] Allergies Active Allergy Reactions Criticality Noted Date Comments Adhesive Tape Low 11/17/2020 Other reaction(s): skin tears Ammonia Edema face/lips/tongue High 08/29/2013 Other reaction(s): SWELLING Diphenhydramine 01/24/2016 Restless legs Buspirone Neuro complications (Please comment) High 03/20/2017 Other reaction(s): NEURO COMPLICATIONS Duloxetine Hcl Itching 11/02/2014 Duloxetine 06/06/2019 Dust 04/30/2019 Dust mites Gabapentin 08/05/2017 Muscle stiffness on oral Lisinopril Cough High 07/29/2013 Other reaction(s): cough Pregabalin 08/15/2023 hallucinations Nsaids 06/12/2019 Other - Environmental Edema airway,Edema face/lips/tongue High 03/19/2008 Amonia, pollen Other Allergy (See Comments) 04/30/2019 Samano Vancomycin 12/08/2020 Venlafaxine Other (Please comment) 05/16/2016 legs Other reaction(s): AFFECTS LEGS Wound Dressing Adhesive 11/14/2020 Rash on skin documented as of this encounter (statuses as of 10/29/2023) Medications Medication Sig Dispensed Refills Start Date End Date Status Fluticasone-Salmete rol 100-50 MCG/DOSE Inhalation Aerosol Powder Breath Activated (Advair Diskus)Indications: Chest tightness Inhale 1 Puff by mouth 2 times a day. 60 Each 1 11/11/2020 Active Mupirocin 2 % External Ointment (Bactroban) Apply [...] or anxiety. 360 Tablet 2 05/15/2023 Active MEDICAL INSTRUCTIONS Lasix addendum 11/29/2022 CHANGE Lasix adjustment order: Please have the patient complete a diuretic titration plan of 80 mg orally in the a.m. only. for 2 days. ( if she received 80 mg yesterday, that is elina 1, otherwise today is day 1) On day 3 she is to return back to 60 mg daily. 1 Each 1 05/16/2023 Active Fluticasone Propionate 50 MCG/ACT Nasal Suspension (Flonase)Indication s:Acute recurrent sinusitis, unspecified location Administer 2 Sprays into each nostril in the morning. 48 g 3 06/01/2023 Active Acetaminophen 500 MG Oral Tablet (Tylenol) take 2 tablets by mouth 2 hours prior to Iron Infusions and 2 tablets every 8 hours as needed for mild pain or temp 100 or greater. 100 Tablet 1 07/23/2023 Active Probiotic 1-250 BILLION-MG Oral Capsule Take 1 Capsule by mouth in the morning and 1 Capsule before bedtime. 90 Capsule 3 07/23/2023 Active Albuterol Sulfate HFA 108 (90 Base) MCG/ACT Inhalation Aerosol SolutionIndications :Cough INHALE TWO PUFFS BY MOUTH EVERY 6 HOURS NEEDED FOR COUGH, SHORTNESS OF BREATH OR WHEEZING 6.7 g 5 09/21/2023 Active Carbidopa-Levodopa 25-100 MG Oral Tablet (Sinemet)Indication s:Parkinson's disease (HCC) take One tablet by mouth four times a day 120 Tablet 5 09/23/2023 Active rOPINIRole HCl 5 MG Oral Tablet take one-half tablet by mouth three times daily 135 Tablet 1 09/23/2023 Active Midodrine HCl 2.5 MG Oral Tablet (Proamatine)Indicat ions:Orthostatic hypotension Take one and one-half Tablets by mouth in the morning and one and one-half Tablets at noon and one and one-half Tablets before bedtime. 405 Tablet 0 09/23/2023 Active Torsemide 20 MG Oral Tablet (Demadex) Take 2 Tablets by mouth in the morning. 180 Tablet 2 09/21/2023 Active Buprenorphine 15 MCG/HR Transdermal Patch WeeklyIndications:F ibromyalgia Apply 1 Patch topically to affected area once a week. 4 Patch 0 10/02/2023 Active Cephalexin 500 MG Oral CapsuleIndications: Cellulitis of lower extremity, unspecified laterality Take 1 Capsule by mouth in the morning and 1 Capsule at noon and 1 Capsule in the evening and 1 Capsule before bedtime. Do all this for 10 days. 40 Capsule 0 10/27/2023 11/06/2023 Active documented as of this encounter (statuses as of 10/29/2023) Active Problems Problem Noted Date Diagnosed Date Shoulder arthritis 09/18/2023 Nontraumatic complete tear of right rotator cuff 09/18/2023 Nontraumatic complete tear of left rotator cuff 09/18/2023 Atrial fibrillation 08/13/2023 Last Assessment & Plan: Rate controlled Continue warfarin for stroke prophylaxis, may need to reconsider if falls are recurrent Parkinson's disease 08/13/2023 Last Assessment & Plan: Stable on current dose carbidopa/levodopa Opioid dependence, uncomplicated 07/09/2023 Personality disorder, unspecified 07/09/2023 Lower extremity edema 01/30/2023 Last Assessment & Plan: DTP of Lasix 60mg x 3 days, then resume 40mg daily. Diverticulitis of colon with perforation 023 Overview: Admission to [facility] 10/28. Last Assessment & Plan: Stable. Still having diarrhea -Continue Invanz until 11/19/[address] [facility] [place]Encouraged hydration Lymphedema 09/07/2022 Aneurysm of ascending [...] heart failure 05/15/2022 Last Assessment & Plan: "RED FLAG" HF Symptoms: Leg Swelling (Examples: "I can't wear certain socks or shoes", "My pants feel tight") Increased dyspnea on exertion (Example: "I can't walk to the kitchen or up the stairs") Medication Regimen: Beta Alejandro Therapy: Metoprolol Tartrate LLUVIA Inhibitor/ARB Therapy: No LLUVIA/ARB/ARNI secondary to: hypotension Diuretic therapy: Torsemide SGLT2 Inhibitor: No Current SGLT2 (Describe in the Comments) Remote Patient Monitoring Vendor: No Connected RPM Device(s): No current devices Self - Management Plan Double dose of Torsemide for 3 days Exacerbation Plan BMP Chest X-Ray Additional Comments: PTSD (post-traumatic stress disorder) 03/09/2022 Lipedema 06/08/2021 [...] 05/07/2018 Last Assessment & Plan: 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 photoengraving proofer Major depressive disorder, recurrent, mild 04/30 Last [...] this will have to come through PCP, [facility] does not participate in chronic [...] as of this encounter (statuses as of 10/29/2023) Resolved Problems Problem Noted Date Diagnosed Date Resolved Date Parkinson's disease 01/30/2023 08/13/19 24 Last Assessment & Plan: Stable on Carbidopa-Levodopa Type 2 diabetes mellitus wit h autonomic [...] as of this encounter (statuses as of 10/29/2023) Immunizations Name Administration Dates Next Due COVID-19 mRNA, LNP-s, No Pre serve, 2-Dose Series (Risk Management Solution) 07/07/2021,10/04/2020,09/07/2020 Hepatitis B, 20+ yrs 11/05/2004,07/08/1995 PPD 01/25/2008 Pneumococcal Conjugate Vacc, 13 Valent (Prevnar) 06/10/2015 Pneumococcal Conjugate Vacci ne, 20-valent ([id number]) 06/06/2023 Pneumococcal Polysaccharide PPV23 (Pneumovax) 06/07/2019,12/26/2007 Seasonal [...] Answer Date Recorded PHQ Adult Total Score 11 09/09/2023 Hunger Vital Sign Answer Date Recorded Within the past 12 months, y ou worried that your food would run out before you got the money to buy more. Never true 07/02/20 23 Within the past 12 months, t he food you bought just didn't last and you didn't have money to get more. Never true 07/02/2023 Sex and Gender Information Value Date Recorded Sex Assigned at Female 11/11/2018 2:57 PM EDT Gender Identity Female 11/11/2018 2:57 PM EDT Sexual Orientation Straight 02/23/2021 10 :18 AM EDT Job Start Date Occupation Industry Not on file Not on file Not on file documented as of this encounter Miscellaneous Notes * Telephone Encounter - Karolyn Diaz, RN - 10/29/2023 10:46 AM EDT [facility] Telephonic Nurse Follow-Up Call [facility] Subprogram: Focused Care Management (3-9 months) Follow Up Call Type: 48 hour follow up Acute issue requiring follow-up call: Other: cellulitis Objective: 10/27/2023 10:17 AM 10/26/2023 12:31 PM 10/25/2023 1:42 PM 10/24/2023 3:49 PM 10/19/2023 11:49 AM VITALS ACROSS ENCOUNTERS BP 120/82 118/84 108/68 110/64 150/88 Pulse 83 76 82 78 66 Weight 77.3 kg BMI 32.2 kg/m2 Remote Patient Monitoring: NONE Oxygen Needs: NO supplemental oxygen needs identified DME Needs: NO DME needs identified Medications: New medication(s) added: Cephalexin 500 mg TID x 10 days Subjective: Condition Status: Improvement in symptoms but not at baseline Current Concerns: Spoke to the nurse at the [facility]. States that she notes improvement in the redness of legs. Pt does not elevate legs much so pt continues to struggle with increased LE edema. Will continue to monitor legs and call [facility] with any worsening condition. Disposition: Routed to [facility] and/or [facility] Care Team for further advice FC call scheduled for 11/05 to follow up upon completion of abx. Future Visits Scheduled: Future Appointments-next 60 days Date/Time Provider Specialty Dept Phone 10/29/2023 1:00 PM [facility] [phone] 10/30/2023 6:45 AM [facility] [phone] 10/30/2023 1:00 PM (Arrive by 12:45 PM) 2, Psychology Group Psychology [phone] 10/31/2023 10:30 AM (Arrive by 10:15 AM) Gus Andrews DDS, Oral Maxillary Surgery [phone] 11/05/2023 2:00 PM (Arrive by 1:45 PM) Mark Carr MD Family Medicine [phone] 11/06/2023 1:00 PM (Arrive by 12:45 PM) 2, Psychology Group Psychology [phone] 11/06/2023 2:30 PM Sonja Robledo RN [facility] [phone] 11/13/2023 1:00 PM (Arrive by 12:45 PM) 2, Psychology Group Psychology [phone] 11/13/2023 5:45 PM [facility] [phone] 11/20/2023 1:00 PM (Arrive by 12:45 PM) 2, Psychology Group Psychology [phone] 11/27/2023 1:00 PM (Arrive by 12:45 PM) 2, Psychology Group Psychology [phone] 12/04/2023 1:00 PM (Arrive by 12:45 PM) 2, Psychology Group Psychology [phone] 12/11/2023 1:00 PM (Arrive by 12:45 PM) 2, Psychology Group Psychology [phone] 12/18/2023 11:20 AM (Arrive by 11:05 AM) Debbie Otero PA-C Family [facility] [phone] 12/31/2023 11:00 AM (Arrive by 10:45 AM) Patricia Knott CRNP Cardiology [phone] 01/22/2024 11:40 AM (Arrive by 11:25 AM) Debbie Otero PA-C Family [facility] [phone] 03/31/2024 11:00 AM Dagoberto, Laboratory Laboratory [phone] 04/07/2024 2:00 PM (Arrive by 1:45 PM) Hanane Enamorado CRNP Hematology Oncology [phone] 05/05/2024 10:00 AM Dagoberto Nurse Annual Wellness Ancillary [phone] Karolyn Diaz, ZEV documented in this encounter Plan of Treatment Upcoming Encounters Date Type Department Care Team (Late st Contact Info) Description 10/30/2023 6:45 AM EDT Anticoagulation [facility]acy Call [facility] [address] [facility] [place] [address] Ccps, [facility] [address] [facility] [place] [address] 10/30/2023 1:00 PM EDT Telemedicine Psychology, [place] [address] [place] [address] 2, Psychology Group [facility] [place] [address] 10/31/2023 10:30 AM EDT Office Visit Oral Maxillofacial Surgery, [place] [address] [place] [address] Gus Andrews DDS, MD [facility] [place] [address] 11/05/2023 2:00 PM EDT Office Visit [place] [address] [place] [phone] Mark Carr MD [address] [place] [address] 11/06/2023 11:20 AM EDT Hospital Encounter OR OSS, Operating Room [facility] [address] [place] [phone] Jeffery Rodríguez, [address] [place] [phone] 11/06/2023 11:20 AM EDT - 11/06/2023 11:45 AM EDT Surgery OR OSS, Operating Room [facility] [address] [place] [phone] Jeffery Rodríguez, [address] [place] [phone] INJECTION SPINE LUMBAR OR SACRAL 11/06/2023 1:00 PM EDT Telemedicine [address] [address] 2, Psychology Group [address] [place] [address] 11/06/2023 2:30 PM EDT [facility] [address] [place] [address] Sonja Robledo, RN [address] [place] [address] 11/13/2023 1:00 PM EDT Telemedicine [address] [address] 2, Psychology Group [address] [place] [address] 11/13/2023 5:45 PM EDT [facility] Call Center [address] [place] [address] Ccps, [facility] [address] [place] [address] 11/20/2023 1:00 PM EDT Telemedicine [address] [address] 2, Psychology Group [address] [place] [address] 11/27/2023 1:00 PM EDT Telemedicine [address] [address] 2, Psychology Group [address] [place] [address] 12/04/2023 1:00 PM EDT Telemedicine [address] [address] 2, Psychology Group [address] [place] [address] 12/11/2023 1:00 PM EDT Telemedicine Psychology, [place] [address] [place] [facility] [place] [address] 2, Psychology Group [address] [place] [facility] [place] [address] 12/18/2023 11:20 AM EDT Office Visit Family Practice, [place] [address] [facility] [phone] Debbie Otero PA-C [address] [facility] [phone] 12/31/2023 11:00 AM EDT Office Visit Cardiology, [facility] [address] [facility] [place] [address] Patricia Knott CRNP [address] [facility] [place] [address] 01/22/2024 11:40 AM EDT Office Visit Family Practice, [place] [address] [facility] [phone] Debbie Otero PA-C [address] [facility] [address] 03/31/2024 11:00 AM EDT Laboratory Laboratory, [place] [address] [facility] [phone] [facility] Laboratory [address] [facility], [place] [address] 04/07/2024 2:00 PM EDT Office Visit Hematology/Oncology [facility] [address] [facility] [phone] Hanane Enamorado CRNP [address] [facility] [place] [address] 05/05/2024 10:00 AM EDT Nurse Only Ancillary Department, [place] [address] [facility] [place] [address] Dagoberto, Nurse Annual Wellness [address] [place] [address] Scheduled Procedures Name Priority Associated Diagnoses Date/Ti me INJECTION SPINE LUMBAR OR SACRAL Lumbar radiculopathy 11/06/2023 11:20 AM EDT Health Maintenance Due Date Last Done Comments Hepatitis B (3 of 3 - 19+ 3-dose series) 12/31/2004 11/05/2004, 07/08/1995 Mammogram 10/17/2022 10/17/2021, 09/06, 02/27/2019, Additional history exists DXA Scan 12/13/2022 12/13/2020, 11/05, 08/20/2016, Additional history exists COLONOSCOPY-EVERY 3 YRS AGES 18-100 01/04/2023 01/05/2020, 01/03/2017, 01/03/2017, Additional history exists COVID-19 Vaccine (2022- season) 2023 07/07/2021, 10/04/2020, 09/07/2020 Depression, Most Recent Score >= 10 (will fire each visit until score < 10) 09/10/2023 09/09/2023 TSH 04/25/2024 04/25/2023, 02/07, 08/30/2022, Additional history exists GFR 08/15/2024 08/15/2023, 02/0 07/2023, 08/01/2023, Additional history exists Lipid Panel 09/05/2025 09/05/2020, 06/08, 05/05/2018, Additional history exists Albumin/Creatinine Ratio 03/06/2026 023, 10/17/2021, 06/19/2017 DTaP,Tdap,and Td Vaccines (3 - Td or Tdap) 06/27/2030 06/27/2020, 06/01/2013, 04/02/2008, Additional history exists Diabetic Eye Exam Discontinued 11/02/2014, , 11/02/2014, Additional history exists Zoster Vaccines Completed 01/01/2019, 07/10, 06/05/2012 VITAMIN D LEVEL ONCE IN A LIFETIME-USE SMARTSET# [id number] Completed 11/21/2021, 06/06/2020, 02/16/2020, Additional history exists [...] filedocumented as of this encounter Advance Directives Documents on File Type Date Recorded Patient Data Conversion Operator Expl anation Advance Directives and Living Will 09/26/2023 signed on 08/22/2023 ADVANCE DIRECTIVE / LIVING WILL Power of Chemistry Department Chair 09/26/2023 signed on 08/22/2023 POWER OF [employer] [facility] Healthcare Agents on File Name Relationship Healthcare Agent Relationship Communication Erica Nunes Other - (no specific identity) Health Care Data Conversion Operator (appointed verbally by patient or by statute hierarchy) Care Teams Coal Trammer Relationship Specialty Start Date End Date Lavern Gomez DO [address] [place] [address] PCP - General Family Medicine 10/27/22 documented as of this encounter
--- OUTSIDE RECORDS SUMMARY | 2023-10-31 09:56 | External Medical Summary | Summary of Care ---
Author Name Unknown Organization [facility] Address [address] [place] [address] Phone [phone] Care Team Providers Care Center Maker Hand Name Role Phone Lavern Gomez Primary Care Provider Reason for Visit * Reason Onset Date Comments [facility]: Maintenance 10/29/2023 Encounter Details Date Type Department Care Team (Late st Contact Info) Description 10/29/2023 1:00 PM EDT Scheduled Telephone [facility], [facility] [address] [facility] [place] [address] Coordinator, [facility] [address] [facility] [place] [address] Allergies Active Allergy Reactions Criticality Noted Date [...] colon with perforation 023 Overview: Admission to [facility] 10/28. Last Assessment & Plan: Stable. 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 Major depressive disorder, recurrent, mild 04/30 Last [...] this will have to come through PCP, [facility] does not participate in chronic pain [...] mRNA, LNP-s, No Pre serve, 2-Dose Series ([employer]) 07/07/2021,10/04/2020,09/07/2020 Hepatitis B, 20+ yrs 11/05/2004,07/08/1995 PPD 01/25/2008 Pneumococcal Conjugate Vacc, 13 Valent (Prevnar) 06/10/2015 Pneumococcal Conjugate Vacci ne, 20-valent ([id number]) 06/06/2023 Pneumococcal Polysaccharide PPV23 (Pneumovax) 06/07/2019,12/26/2007 Seasonal [...] Miscellaneous Notes * Telephone Encounter - Karolyn Diaz RN - 10/29/2023 10:46 AM EDT [facility] Telephonic Nurse Follow-Up Call [facility] Subprogram: Focused Care Management (3-9 months) [...] Concerns: Spoke to the nurse at the [facility]. States that she notes improvement in the redness of legs. Pt does not elevate legs much so pt continues to struggle with increased LE edema. Will continue to monitor legs and call [facility] with any worsening condition. Disposition: Routed to [facility] and/or [facility] Care Team for further advice RNCM home visit scheduled for 11/05 to follow up upon completion of abx. Future Visits Scheduled: Future Appointments-next 60 days Date/Time Provider Specialty Dept Phone 10/29/2023 1:00 PM [facility] [phone] 10/30/2023 6:45 AM [facility] [phone] 10/30/2023 1:00 PM (Arrive by 12:45 PM) 2, Psychology Group Psychology [phone] 10/31/2023 10:30 AM (Arrive by 10:15 AM) Gus Andrews DDS, Oral Maxillary Surgery [phone] 11/05/2023 2:00 PM (Arrive by 1:45 PM) Mark Carr MD Family Medicine [phone] 11/06/2023 1:00 PM (Arrive by 12:45 PM) 2, Psychology Group Psychology [phone] 11/06/2023 2:30 PM Sonja Robledo RN [facility] [phone] 11/13/2023 1:00 PM (Arrive by 12:45 PM) 2, Psychology Group Psychology [phone] 11/13/2023 5:45 PM [facility] [phone] 11/20/2023 1:00 PM (Arrive by 12:45 PM) 2, Psychology Group Psychology [phone] 11/27/2023 1:00 PM (Arrive by 12:45 PM) 2, Psychology Group Psychology [phone] 12/04/2023 1:00 PM (Arrive by 12:45 PM) 2, Psychology Group Psychology [phone] 12/11/2023 1:00 PM (Arrive by 12:45 PM) 2, Psychology Group Psychology [phone] 12/18/2023 11:20 AM (Arrive by 11:05 AM) Debbie Otero PA-C Family [facility] [phone] 12/31/2023 11:00 AM (Arrive by 10:45 AM) Patricia Knott CRNP Cardiology [phone] 01/22/2024 11:40 AM (Arrive by 11:25 AM) Debbie Oetro PA-C Family Medicine [phone] 03/31/2024 11:00 AM [facility] Laboratory [phone] 04/07/2024 2:00 PM (Arrive by 1:45 PM) Hanane Enamorado CRNP Hematology Oncology [phone] 05/05/2024 10:00 AM [facility] Nurse Annual Wellness Ancillary [phone] Karolyn Diaz, ZEV documented in this encounter Plan of Treatment Upcoming Encounters Date Type Department Care Team (Late st Contact Info) Description 10/30/2023 6:45 AM EDT Anticoagulation Pharmacy Call Center 58[address] [facility] [place] [address] [facility], [facility] 58 60 [facility] [place]ccoy [address] 10/30/2023 1:00 PM EDT Telemedicine Psychology, [place] [address] [place] [address] 2, Psychology Group [address] [place] [address] 10/31/2023 10:30 AM EDT Office Visit Oral Maxillofacial Surgery, [place] [address] [place] [address] Gus Andrews DDS, MD [address] [place] [address] 11/05/2023 2:00 PM EDT Office Visit [place] [address] [place] [phone] Mark Carr MD [address] [place] [address] 11/06/2023 11:20 AM EDT Hospital Encounter OR [facility], Operating Room [facility] [address] [place] [phone] Jeffery Rodríguez, [address] [place] [phone] 11/06/2023 11:20 AM EDT - 11/06/2023 11:45 AM EDT Surgery OR OSS, Operating Room [facility] [address] [place] [phone] Jeffery Rodríguez, [address] [place] [phone] INJECTION SPINE LUMBAR OR [facility] 11/06/2023 1:00 PM EDT Telemedicine [address] [address] 2, Psychology Group [address] [place] [address] 11/06/2023 2:30 PM EDT [facility] [address] [place] [address] Sonja Robledo RN [address] [place] [address] 11/13/2023 1:00 PM EDT Telemedicine [address] [address] 2, Psychology Group [address] [place] [address] 11/13/2023 5:45 PM EDT [facility] Call Center [address] [place] [address] [facility], [facility] 58 [address] [place] [address] 11/20/2023 1:00 PM EDT Telemedicine [address] [address] 2, Psychology Group [address] [place] [address] 11/27/2023 1:00 PM EDT Telemedicine [address] [address] 2, Psychology Group [address] [place] [address] 12/04/2023 1:00 PM EDT Telemedicine [address] [address] 2, Psychology Group [address] [place] [address] 12/11/2023 1:00 PM EDT Telemedicine Psychology, [place] [address] [place] [facility] [place] [address] 2, Psychology Group [address] [place] [facility] [place] [address] 12/18/2023 11:20 AM EDT Office Visit Family Practice, [place] [address] [facility] [address] Debbie Otero PA-C [address] [facility] [place] [id number] 12/31/2023 11:00 AM EDT Office Visit Cardiology, [facility] 132 [facility] [place] [address] Patricia Knott CRNP 132 [facility] [place] [address] 01/22/2024 11:40 AM EDT Office Visit Family Practice, [place] [address] [facility] [address] Debbie [facility]tero PA-C [address] [facility] [address] 03/31/2024 11:00 AM EDT Laboratory Laboratory, [place] [address] [facility] [address] [facility] Laboratory [address] [facility], [place] [address] 04/07/2024 2:00 PM EDT Office Visit Hematology/Oncology [facility] [place] [facility] [phone] Hanane Enamorado CRNP [address] [facility] [address] 05/05/2024 10:00 AM EDT Nurse Only Ancillary Department, [place] [address] [facility] [address] [place], Nurse Annual Wellness [address] [facility] [place] [address] Scheduled Procedures Name Priority Associated Diagnoses Date/Ti [...] D LEVEL ONCE IN A LIFETIME-USE SMARTSET# [id number] Completed 11/21/2021, 06/06/2020, 02/16/2020, Additional history exists [...] Documents on File Type Date Recorded Patient Paradi Operator Expl anation Advance Directives and Living Will 09/26/2023 signed on 08/22/2023 ADVANCE DIRECTIVE / LIVING WILL Power of 3D Designer 09/26/2023 signed on 08/22/2023 POWER OF W[employer] SALES [employer]ATE [employer] Healthcare Agents on File Name Relationship Healthcare Agent Relationship Communication Erica Nunes Other - (no specific identity) Health Care Paradi Operator (appointed verbally by patient or by statute hierarchy) Care Teams Center Maker Hand Relationship Specialty Start Date End Date Lavern Gomez DO [address] [place] [address] PCP - General Family Medicine 10/27/22 documented as of this encounter
--- OUTSIDE RECORDS SUMMARY | 2023-10-31 09:57 | External Medical Summary | Summary of Care ---
Author Name Unknown Organization [facility] Address [address] [place] [address] Phone [phone] Care Team Providers Care Helicopter Mechanic Name Role Phone Lavern Gomez Primary Care Provider [phone] Reason for Visit * Reason Onset Date Comments [facility]: Maintenance 10/29/2023 Encounter Details Date Type Department Care Team (Late st Contact Info) Description 10/29/2023 1:00 PM EDT Scheduled Telephone [facility], [facility] 132 [facility] [place] [address] Coordinator, [facility] 132 [facility] [place] [address] Allergies Active Allergy Reactions Criticality Noted Date [...] colon with perforation 023 Overview: Admission to [facility] 10/28. Last Assessment & Plan: Stable. 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 Major depressive disorder, recurrent, mild 04/30 Last [...] this will have to come through PCP, [facility] does not participate in chronic pain [...] mRNA, LNP-s, No Pre serve, 2-Dose Series ([email or web address]) 07/07/2021,10/04/2020,09/07/2020 Hepatitis B, 20+ yrs 11/05/2004,07/08/1995 PPD 01/25/2008 Pneumococcal Conjugate Vacc, 13 Valent (Prevnar) 06/10/2015 Pneumococcal Conjugate Vacci ne, 20-valent ([id number]) 06/06/2023 Pneumococcal Polysaccharide PPV23 (Pneumovax) 06/07/2019,12/26/2007 Seasonal [...] Diaz RN - 10/29/2023 10:46 AM EDT [facility] Telephonic Nurse Follow-Up Call [facility] Subprogram: Focused Care Management (3-9 months) Follow [...] TID x 10 days Subjective: Condition Status: unknown Current Concerns: Spoke to the nurse at the [facility]. Has not yet been back to evaluate pt at this time. Nurse will call back to [facility] and eval pt's leg and call back to [facility] Disposition: [facility] Future Visits Scheduled: Future Appointments-next 60 days Date/Time Provider Specialty Dept Phone 10/29/2023 1:00 PM Coordinator, [facility] [phone] 10/30/2023 6:45 AM [facility], [facility] [phone] 10/30/2023 1:00 PM (Arrive by 12:45 PM) 2, Psychology Group Psychology [phone] 10/31/2023 10:30 AM (Arrive by 10:15 AM) Gus Andrews DDS, MD Oral Maxillary Surgery [phone] 11/05/2023 2:00 PM (Arrive by 1:45 PM) Mark Carr MD Family Medicine [phone] 11/06/2023 1:00 PM (Arrive by 12:45 PM) 2, Psychology Group Psychology [phone] 11/06/2023 2:30 PM Sonja Robledo, RN [facility] [phone] 11/13/2023 1:00 PM (Arrive by 12:45 PM) 2, Psychology Group Psychology [phone] 11/13/2023 5:45 PM [facility] [phone] 11/20/2023 1:00 PM (Arrive by 12:45 PM) 2, Psychology Group Psychology [phone] 11/27/2023 1:00 PM (Arrive by 12:45 PM) 2, Psychology Group Psychology [phone] 12/04/2023 1:00 PM (Arrive by 12:45 PM) 2, Psychology Group Psychology [phone] 12/11/2023 1:00 PM (Arrive by 12:45 PM) 2, Psychology Group Psychology [phone] 12/18/2023 11:20 AM (Arrive by 11:05 AM) Debbie Otero PA-C Family Medicine [phone] 12/31/2023 11:00 AM (Arrive by 10:45 AM) Patricia Knott CRNP Cardiology [phone] 01/22/2024 11:40 AM (Arrive by 11:25 AM) Debbie Otero PA-C Family Medicine [phone] 03/31/2024 11:00 AM [facility] Laboratory [phone] 04/07/2024 2:00 PM (Arrive by 1:45 PM) Hanane Enamorado CRNP Hematology Oncology [phone] 05/05/2024 10:00 AM [facility] Nurse Annual Wellness Ancillary [phone] Karolyn Diaz, ZEV documented in this encounter Plan of Treatment Upcoming Encounters Date Type Department Care Team (Late st Contact Info) Description 10/30/2023 6:45 AM EDT Anticoagulation Pharmacy Call Center WB [address] [place] [address] [facility], [facility] 58 60 [facility] [place] [address] 10/30/2023 1:00 PM EDT Telemedicine [address] [address] 2, Psychology Group [facility] [place] [address] 10/31/2023 10:30 AM EDT Office Visit Oral Maxillofacial Surgery, [address] [address] Gus Andrews DDS, MD [facility] [place] [address] 11/05/2023 2:00 PM EDT Office Visit [place] [address] [place] [address] Mark Carr MD [address] [place] [address] 11/06/2023 11:20 AM EDT Hospital Encounter OR [facility], Operating Room [facility] [address] [place] [phone] Jeffery Rodríguez, [address] [place] [phone] 11/06/2023 11:20 AM EDT - 11/06/2023 11:45 AM EDT Surgery OR [facility], Operating Room [facility] [address] [place] [phone] Jeffery Rodríguez, [address] [place] [phone] INJECTION SPINE LUMBAR OR [facility] 11/06/2023 1:00 PM EDT Telemedicine [address] [address] 2, Psychology Group [address] [place] [address] 11/06/2023 2:30 PM EDT Home Visit [facility], [facility] [address] [place] [address] Sonja Robledo RN [address] [place] [address] 11/13/2023 1:00 PM EDT Telemedicine [address] [address] 2, Psychology Group [address] [place] [address] 11/13/2023 5:45 PM EDT [facility] Call Center [address] [place] [address] [facility], [facility] 58 [address] [place] [address] 11/20/2023 1:00 PM EDT Telemedicine [address] [address] 2, Psychology Group [address] [place] [address] 11/27/2023 1:00 PM EDT Telemedicine [address] [address] 2, Psychology Group [address] [place] [address] 12/04/2023 1:00 PM EDT Telemedicine [address] [address] 2, Psychology Group [address] [place] [address] 12/11/2023 1:00 PM EDT Telemedicine Psychology16 [place] [address] 2, Psychology Group [address] [place] [place] [address] 12/18/2023 11:20 AM EDT Office Visit [facility], [place] [address] [address] [facility] [place] [phone] Debbie Otero PA-C [address] [facility] [place] [address] 12/31/2023 11:00 AM EDT Office Visit Cardiology, [facility] [place] [address] Patricia Knott CRNP 132 [facility] [place] [address] 01/22/2024 11:40 AM EDT Office Visit [facility], [place] [address] [address] [facility] [address] Debbie Otero PA-C [address] [place] [address] 03/31/2024 11:00 AM EDT Laboratory Laboratory, [place] [address] [address] [facility] [phone] [place], [facility] [address] [place] [address] 04/07/2024 2:00 PM EDT Office Visit Hematology/Oncology [facility] [place] [address] [facility] [address] Hanane Enamorado CRNP [address] [place] [address] 05/05/2024 10:00 AM EDT Nurse Only Ancillary Department, [place] [address] [place] [address] [place], Nurse Annual Wellness [address] [place] [address] Scheduled Procedures Name Priority Associated Diagnoses Date/Ti [...] Vaccine ( season) 2023 07/07/2021, 10/04/2020, 09/07/2020 Depression, Most Recent Score >= 10 (will fire each visit until score < 10) 09/10/2023 09/09/2023 TSH 04/25/2024 04/25/2023, 02/07, 08/30/2022, Additional history exists GFR 08/15/2024 08/15/2023, 02/07/2023, 08/01/2023, Additional history exists Lipid Panel 09/05/2025 09/05/2020, 06/08, 05/05/2018, Additional history exists Albumin/Creatinine Ratio 03/06/2026 023, 10/17/2021, 06/19/2017 DTaP,Tdap,and Td Vaccines (3 - Td or Tdap) 06/27/2030 06/27/2020, 06/01/2013, 04/02/2008, Additional history exists Diabetic Eye Exam Discontinued 11/02/2014, , 11/02/2014, Additional history exists Zoster Vaccines Completed 01/01/2019, 07/10, 06/05/2012 VITAMIN D LEVEL ONCE IN A LIFETIME-USE SMARTSET# [id number] Completed 11/21/2021, 06/06/2020, 02/16/2020, Additional history exists [...] Documents on File Type Date Recorded Patient Company Accountant Expl anation Advance Directives and Living Will 09/26/2023 signed on 08/22/2023 ADVANCE DIRECTIVE / LIVING WILL Power of Senior [employer] Software Engineer 09/26/2023 signed on 08/22/2023 POWER OF WAD LUBRICATOR HEALTH CARE Healthcare Agents on File Name Relationship Healthcare Agent Relationship Communication Erica Nunes Other - (no specific identity) Health Care Company Accountant (appointed verbally by patient or by statute hierarchy) Care Teams Helicopter Mechanic Relationship Specialty Start Date End Date Lavern Gomez DO [address] [place] [address] PCP - General Family Medicine 10/27/22 documented as of this encounter
--- OUTSIDE RECORDS SUMMARY | 2023-10-31 09:57 | External Medical Summary | Summary of Care ---
Author Name Unknown Organization [facility] Address [address] [place] [address] Phone [phone] Care Team Providers Care American Sign Language Interpreter Name Role Phone Lavern Gomez Primary Care Provider Reason for Visit * Reason Onset Date Comments [facility]: Maintenance 10/28/2023 Encounter Details Date Type Department Care Team (Late st Contact Info) Description 10/28/2023 1:00 PM EDT Scheduled Telephone [facility], [facility] [address] [facility] [place] [address] Coordinator, [facility] [address] [facility] [place] [address] Allergies Active Allergy Reactions Criticality Noted Date [...] as of this encounter (statuses as of 10/28/2023) Medications Medication Sig Dispensed Refills Start Date [...] as of this encounter (statuses as of 10/28/2023) Active Problems Problem Noted Date Diagnosed Date [...] colon with perforation 023 Overview: Admission to [facility] 10/28. Last Assessment & Plan: Stable. 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 does not participate in chronic pain [...] as of this encounter (statuses as of 10/28/2023) Resolved Problems Problem Noted Date Diagnosed Date [...] as of this encounter (statuses as of 10/28/2023) Immunizations Name Administration Dates Next Due COVID-19 mRNA, LNP-s, No Pre serve, 2-Dose Series ([employer]) 07/07/2021,10/04/2020,09/07/2020 Hepatitis B, 20+ yrs 11/05/2004,07/08/1995 PPD 01/25/2008 Pneumococcal Conjugate Vacc, 13 Valent (Prevnar) 06/10/2015 Pneumococcal Conjugate Vacci ne, 20-valent ([id number]) 06/06/2023 Pneumococcal Polysaccharide PPV23 (Pneumovax) 06/07/2019,12/26/2007 Seasonal [...] Telephone Encounter - Karolyn Diaz RN - 10/28/2023 11:40 AM EDT [facility] Telephonic Nurse Follow-Up Call [facility] Subprogram: Focused Care Management (3-9 months) Follow Up Call Type: 24 hour follow up Acute issue requiring follow-up [...] TID x 10 days Subjective: Condition Status: No change in symptoms Current Concerns: Spoke to nurse at [facility]. States improvement in redness. Nurse states that the pt is afebrile. Notes increase in edema and weeping to BLE. States that the pt is not elevating legs and staff will encourage pt to keep legs elevated today. Started cefalexin with 1st dose given last night. Scheduling team to assist with getting doppler scheduled for the pt. Disposition: Follow up call scheduled for tomorrow with [facility] Runner Worker Future Visits Scheduled: Future Appointments-next 60 days Date/Time Provider Specialty Dept Phone 10/28/2023 1:00 PM [facility] [phone] 10/28/2023 5:45 PM [facility] [phone] 10/29/2023 1:00 PM [facility] [phone] 10/30/2023 1:00 PM (Arrive by 12:45 PM) 2, Psychology Group Psychology [phone] 10/31/2023 10:30 AM (Arrive by 10:15 AM) Gus Andrews DDS, MD Oral Maxillary Surgery [phone] 11/05/2023 2:00 PM (Arrive by 1:45 PM) Mark Carr MD Family Medicine [phone] 11/06/2023 1:00 PM (Arrive by 12:45 PM) 2, Psychology Group Psychology [phone] 11/06/2023 2:30 PM Sonja Robledo RN [facility] [phone] 11/13/2023 1:00 PM (Arrive by 12:45 PM) 2, Psychology Group Psychology [phone] 11/20/2023 1:00 PM (Arrive by 12:45 PM) 2, Psychology Group Psychology [phone] 11/27/2023 1:00 PM (Arrive by 12:45 PM) 2, Psychology Group Psychology [phone] 12/04/2023 1:00 PM (Arrive by 12:45 PM) 2, Psychology Group Psychology [phone] 12/11/2023 1:00 PM (Arrive by 12:45 PM) 2, Psychology Group Psychology [phone] 12/18/2023 11:20 AM (Arrive by 11:05 AM) Debbie Otero PA-C Family [facility] [phone] 12/31/2023 11:00 AM (Arrive by 10:45 AM) Patricia Knott CRNP Cardiology [phone] 01/22/2024 11:40 AM (Arrive by 11:25 AM) Debbie Otero PA-C Family Medicine [phone] 03/31/2024 11:00 AM Dagoberto, Laboratory Laboratory [phone] 04/07/2024 2:00 PM (Arrive by 1:45 PM) Hanane Enamorado CRNP Hematology Oncology [phone] 05/05/2024 10:00 AM Dagoberto Nurse Annual Wellness Ancillary [phone] Karolyn Diaz RN documented in this encounter Plan of Treatment Upcoming Encounters Date Type Department Care Team (Late st Contact Info) Description 10/28/2023 5:45 PM EDT Anticoagulation Pharmacy Call Center [address] [facility] [place] [address] Ccps, [facility] 58 [address] [facility] [place]ardo [place] [address] 10/29/2023 1:00 PM EDT Scheduled Telephone [facility], [facility] [address] [place] [address] Coordinator, [facility] [place] [address] 10/30/2023 1:00 PM EDT [facility] [address] [place] [address] 2, Psychology Group [facility] [place] [address] 10/31/2023 10:30 AM EDT Office Visit Oral Maxillofacial Surgery, [place] [address] [place] [address] Gus Andrews DDS, MD [address] [place] [address] 11/05/2023 2:00 PM EDT Office Visit [facility] [address] [place] [phone] Mark Carr MD [address] [place] [address] 11/06/2023 11:20 AM EDT Hospital Encounter OR [facility], Operating Room [facility] [address] [facility] [place] [address] Jeffery Rodríguez DO [address] [place] [phone] 11/06/2023 11:20 AM EDT - 11/06/2023 11:45 AM EDT Surgery OR [facility], Operating Room [facility] 132 [place] [phone] Jeffery Rodríguez DO 132 [place] [address] INJECTION SPINE LUMBAR OR SACRAL 11/06/2023 1:00 PM EDT Telemedicine [address] [address] 2, Psychology Group [address] [place] [address] 11/06/2023 2:30 PM EDT Home Visit [facility], [facility] 132 [place] [address] Sonja Robledo RN [address] [place] [address] 11/13/2023 1:00 PM EDT Telemedicine [address] [address] 2, Psychology Group [address] [place] [address] 11/20/2023 1:00 PM EDT Telemedicine [address] [address] 2, Psychology Group [address] [place] [address] 11/27/2023 1:00 PM EDT Telemedicine [address] [address] 2, Psychology Group [address] [place] [address] 12/04/2023 1:00 PM EDT Telemedicine [address] [address] 2, Psychology Group [address] [facility] [place] [address] 12/11/2023 1:00 PM EDT Telemedicine [place] [address] [place] [address] 2, Psychology Group [address] [facility] [place] [address] 12/18/2023 11:20 AM EDT Office Visit Family [facility], [place] [address] [place] [facility] [phone] Debbie Otero PA-C [address] [place], [place] [address] 12/31/2023 11:00 AM EDT Office Visit Cardiology, [facility] [address] Patricia Knott CRNP [facility] [place] [address] 01/22/2024 11:40 AM EDT Office Visit [facility], [place] [address] [place] [facility] [place] [phone] [phone] Debbie Otero PA-C [address] [place] [address] 03/31/2024 11:00 AM EDT Laboratory Laboratory, [place] [address] [place] [facility] [address] [facility] [address] [facility], [place] [phone] 04/07/2024 2:00 PM EDT Office Visit Hematology/Oncology [facility] [address] [place] [phone] Hanane Enamorado CRNP [address] [place] [address] 05/05/2024 10:00 AM EDT Nurse Only Ancillary Department, [place] [address] [place] [address] Dagoberto, Nurse Annual Wellness [address] [facility] [phone] Scheduled Procedures Name Priority Associated Diagnoses Date/Ti [...] D LEVEL ONCE IN A LIFETIME-USE SMARTSET# 00066 Completed 11/21/2021, 06/06/2020, 02/16/2020, Additional history exists [...] Documents on File Type Date Recorded Patient Restaurant Recruiter Expl anation Advance Directives and Living Will 09/26/2023 signed on 08/22/2023 ADVANCE DIRECTIVE / LIVING WILL Power of Django Developer 09/26/2023 signed on 08/22/2023 POWER OF FIRE EXTINGUISHER REPAIRER INSPECTOR HEALTH CARE Healthcare Agents on File Name Relationship Healthcare Agent Relationship Communication Erica Nunes Other - (no specific identity) Health Care Restaurant Recruiter (appointed verbally by patient or by statute hierarchy) Care Teams American Sign Language Interpreter Relationship Specialty Start Date End Date Lavern Gomez DO [address] [place] [address] PCP - General Family Medicine 10/27/22 documented as of this encounter
--- OUTSIDE RECORDS SUMMARY | 2023-10-31 09:57 | External Medical Summary | Summary of Care ---
Author Name Unknown Organization [facility] Address [address] [place] [address] Phone [phone] Care Team Providers Care Assisted Living Assistant Name Role Phone Lavern Gomez Primary Care Provider Reason for Visit * Reason Onset Date Comments [facility]: Acute 10/27/2023 Sudha ce llulitis Encounter Details Date Type Department Care Team (Late st Contact Info) Description 10/27/2023 Telephone [facility], [facility] [address] [place] [address] Dara Kumar, RN [address] [place] [address] [facility]: Acute (Sudha cellulitis) Allergies Active Allergy Reactions Criticality Noted Date [...] as of this encounter (statuses as of 10/27/2023) Medications Medication Sig Dispensed Refills Start Date End Date Status Fluticasone-Salmet maria r 100-50 MCG/DOSE Inhalation Aerosol Powder Breath Activated (Advair Diskus)Indications :Chest tightness Inhale 1 Puff by mouth 2 times a day. 60 Each 1 11/11/2020 Active Mupirocin 2 % External Ointment (Bactroban) Apply to both nostrils two times a day for 5 days. 22 g 0 04/24/2023 Active Potassium Chloride Lillian ER 20 MEQ Oral Tablet Extended ReleaseIndications :Hypokalemia,Loop diuretic causing adverse effect in therapeutic use, initial encounter TAKE TWO TABLETS BY MOUTH IN THE MORNING AND ONE TABLET IN THE EVENING 300 Tablet 3 05/13/2023 Active Atorvastatin Calcium 20 MG Oral Tablet (Lipitor) Take 1 Tablet by mouth in the morning. 100 Tablet 3 05/15/2023 Active Levothyroxine Sodium 50 MCG Oral Tablet (Levoxyl)Indicatio ns:Hypothyroidism due to acquired atrophy of thyroid Take 1 Tablet by mouth daily first thing in the morning. (at least 30 min prior to breakfast or other meds) 100 Tablet 3 05/15/2023 Active Montelukast Sodium 10 MG Oral Tablet (Singulair)Indicat ions:Chest tightness Take 1 Tablet by mouth at bedtime. 100 Tablet 3 05/15/2023 Active Omeprazole 20 MG Oral Capsule Delayed Release (PriLOSEC)Indicati ons:Gastroesophage al reflux disease without esophagitis Take 2 Capsules by mouth in the morning. 200 Capsule 3 05/15/2023 Active hydrOXYzine HCl 25 MG Oral TabletIndications: PTSD (post-traumatic stress disorder),Major depressive disorder, recurrent severe [...] Active Fluticasone Propionate 50 MCG/ACT Nasal Suspension (Flonase)Indicatio ns:Acute recurrent sinusitis, unspecified location Administer 2 Sprays [...] HFA 108 (90 Base) MCG/ACT Inhalation Aerosol SolutionIndication s:Cough INHALE TWO PUFFS BY MOUTH EVERY 6 HOURS NEEDED FOR COUGH, SHORTNESS OF BREATH OR WHEEZING 6.7 g 5 09/21/2023 Active Carbidopa-Levodopa 25-100 MG Oral Tablet (Sinemet)Indicatio ns:Parkinson's disease (HCC) take One tablet by mouth four times a day 120 Tablet 5 09/23/2023 Active rOPINIRole HCl 5 MG Oral Tablet take one-half tablet by mouth three times daily 135 Tablet 1 09/23/2023 Active Midodrine HCl 2.5 MG Oral Tablet (Proamatine)Indica tions:Orthostatic hypotension Take one and one-half Tablets by mouth in the morning and one and one-half Tablets at noon and one and one-half Tablets before bedtime. 405 Tablet 0 09/23/2023 Active Torsemide 20 MG Oral Tablet (Demadex) Take 2 Tablets by mouth in the morning. 180 Tablet 2 09/21/2023 Active Buprenorphine 15 MCG/HR Transdermal Patch WeeklyIndications: Fibromyalgia Apply 1 Patch topically to affected area once a week. 4 Patch 0 10/02/2023 Active Cephalexin 500 MG Oral CapsuleIndications :Cellulitis of lower extremity, unspecified laterality Take 1 Capsule by mouth in the morning and 1 Capsule at noon and 1 Capsule in the evening and 1 Capsule before bedtime. Do all this for 10 days. 40 Capsule 0 10/27/2023 Active Cephalexin 500 MG Oral CapsuleIndications :Acute cystitis without hematuria Take 1 Capsule by mouth in the morning and 1 Capsule at noon and 1 Capsule before bedtime. 21 Capsule 0 10/19/2023 Discontinue d(Medicatio n List Clean Up) Hospital, Clinic, or Other Facility Administered Medication Ordered Dose Route Frequency Start Date End Date Status cefTRIAXone (Rocephin) inj 1 gIndications:Cellulitis of lower extremity, unspecified laterality 1 g IM ONCE 10/27/2023 10/27/[address] ded documented as of this encounter (statuses as of 10/27/2023) Active Problems Problem Noted Date Diagnosed Date [...] colon with perforation 023 Overview: Admission to [facility] 10/28. Last Assessment & Plan: Stable. Still having diarrhea -Continue Invanz until 11/19/22 with ID at [facility] -Encouraged hydration Lymphedema 09/07/2022 Aneurysm of ascending [...] 05/07/2018 Last Assessment & Plan: Followed by supervisor refractory products Major depressive disorder, recurrent, mild 04/30 Last [...] this will have to come through PCP, [facility] does not participate in chronic pain management. 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 Surveillance. Mild persistent asthma without complication 06/08 Last Assessment & Plan: Stable Continue Robb Lobo p.rIvelissenIvelisse, Advair Restless legs syndrome Last Assessment & Plan: Well controlled on Ropinirole 2.5 TID HTN, goal below 130/80 documented as of this encounter (statuses as of 10/27/2023) Resolved Problems Problem Noted Date Diagnosed Date [...] as of this encounter (statuses as of 10/27/2023) Immunizations Name Administration Dates Next Due COVID-19 mRNA, LNP-s, No Pre serve, 2-Dose Series ([employer]) 07/07/2021,10/04/2020,09/07/2020 Hepatitis B, 20+ yrs 11/05/2004,07/08/1995 PPD 01/25/2008 Pneumococcal Conjugate Vacc, 13 Valent (Prevnar) 06/10/2015 Pneumococcal Conjugate Vacci ne, 20-valent ([id number]) 06/06/2023 Pneumococcal Polysaccharide PPV23 (Pneumovax) 06/07/2019,12/26/2007 Seasonal [...] encounter Miscellaneous Notes * Telephone Encounter - Dara Kumar RN - 10/27/2023 5:17 PM EDT [facility] scheduling please fax note below from provider to [facility] FAX is [phone]---Polina, nurse, was notified of orders at time of visit. [facility] would not transmit fax today. Thank you * Telephone Encounter - Pollo Thomas DO - 10/27/2023 10:44 AM EDT Advise administer ceftriaxone 1 g IM today. Prescription Keflex 500 mg 1 tab four times daily times 10 days sent to pharmacy for continued treatment of cellulitis both lower extremities. Advise arterial Doppler both lower extremities rule out underlying arterial occlusive disease. * Telephone Encounter - Dara Kumar RN - 10/27/2023 10:30 AM EDT Images from the original note were not included. Please review. Pt has had 3 days of IM rocephin. Legs improving, no warmth to touch Still seeping and with decreasing redness SITUATION: Patient is being seen for f/u acute cellulitis. Received IM Rocephin 10/23, 10/24 and 10/25. BACKGROUND: Parkinson's disease, RLS, hypercoagulopathy, h/o PE, asthma, monoallelic mutation of COL3A1 gene, HTN, fibromyalgia, Svt, afib, HF, osteoporosis, depression, PTSD ASSESSMENT: BP 120/82 (BP Site: Right Arm, BP Position: Sitting, BP Cuff Size: Regular) | Pulse 83 | Temp 36.7 C (98.1 F) (Infrared ) | Resp 16 | SpO2 98% Pt seen for acute visit for f/u of cellulitis Received 1 gm IM Rocephin 10/23, 10/24 and 10/25 Continues with redness, has decreased No warmth to touch Continues with weeping from legs, LLE blister broke open morning of 10/26/23 Afebrile 10/27/23 10/26/23 10/25/23 10/24/23 RECOMMENDATION: Continue with elevation Instructed to report worsening s/s of infection: Redness, swelling, uncontrolled pain, green/yellowdrainage, foul odor or fever. Continue to take medications as ordered Keep medical follow up appt's Phone nurse f/u in 1 day RADHA visit end of week to obtain photo f/u. documented in this encounter Plan of Treatment Upcoming Encounters Date Type Department Care Team (Late st Contact Info) Description 10/28/2023 1:00 PM EDT Scheduled Telephone [facility], [facility] [address] [place] [address] Coordinator, [facility] [address] [place] [address] 10/28/2023 5:45 PM EDT Anticoagulation Pharmacy Call Center [phone] [place] [address] Ccps, [facility] 58 60 [facility] [place] [address] 10/29/2023 1:00 PM EDT Scheduled Telephone [facility], [facility] [address] [place] [address] Coordinator, [facility] [address] [place] [address] 10/30/2023 1:00 PM EDT Telemedicine Psychology, [place] [address] [place] [address] 2, Psychology Group [address] [place] [address] 10/31/2023 10:30 AM EDT Office Visit Oral Maxillofacial Surgery, [place] [address] [place] [address] Gus Andrews DDS, MD [address] [place] [address] 11/05/2023 2:00 PM EDT Office Visit [facility] [address] [place] [address] Mark Carr MD [address] [place] [address] 11/06/2023 11:20 AM EDT Hospital Encounter OR [facility], Operating Room [facility] [address] [place] [phone] Jeffery Rodríguez, DO [address] [place] [phone] 11/06/2023 11:20 AM EDT - 11/06/2023 11:45 AM EDT Surgery OR [facility], Operating Room [facility] [address] [place] [phone] Jeffery Rodríguez, DO [address] [place] [phone] INJECTION SPINE LUMBAR OR [facility] 11/06/2023 1:00 PM EDT Telemedicine [address] [address] 2, Psychology Group [address] [place] [address] 11/06/2023 2:30 PM EDT Home Visit [facility], [facility] [address] [place] [address] Sonja Robledo RN [address] [place] [address] 11/13/2023 1:00 PM EDT Telemedicine [address] [address] 2, Psychology Group [address] [place] [address] 11/20/2023 1:00 PM EDT Telemedicine [address] [address] 2, Psychology Group [address] [place] [address] 11/27/2023 1:00 PM EDT Telemedicine [address] [address] 2, Psychology Group [address] [place] [address] 12/04/2023 1:00 PM EDT Telemedicine [address] [address] 2, Psychology Group [address] [place] [address] 12/11/2023 1:00 PM EDT Telemedicine [address] [address] 2, Psychology Group [address] [place] [address] 12/18/2023 11:20 AM EDT Office Visit Family Practice, [place] [address] [facility], [place] [phone] Debbie Otero PA-C [address] [facility], [place] [address] 12/31/2023 11:00 AM EDT Office Visit Cardiology, [facility] 132 [facility] [place] [address] Patricia Knott CRNP [address] [facility] [place] [address] 01/22/2024 11:40 AM EDT Office Visit [facility], [place] [address] [facility], [place] [address] Debbie Otero PA-C [address] [facility], [place] [address] 03/31/2024 11:00 AM EDT Laboratory Laboratory, [place] [address] [facility], [place] [address] [place], Laboratory [address] [facility], [place] [address] 04/07/2024 2:00 PM EDT Office Visit Hematology/Oncology [facility] [address] [facility], [place] [phone] Hanane Enamorado CRNP [address] [place] [address] 05/05/2024 10:00 AM EDT Nurse Only Ancillary Department, [place] [address] [facility], [place] [address] Dagoberto, Nurse Annual Wellness [address] [facility], [place] [address] Scheduled Orders Name Type Priority Associated Diagnoses Orde r Schedule VASC ARTERIAL DOPPLER LE Medical Imaging Routine Cellulitis of lower extremity, unspecified laterality Ordered: 10/27/2023 Scheduled Procedures Name Priority Associated Diagnoses Date/Ti [...] D LEVEL ONCE IN A LIFETIME-USE SMARTSET# [id number] Completed 11/21/2021, 06/06/2020, 02/16/2020, Additional history exists [...] as of this encounter Visit Diagnoses Diagnosis Cellulitis of lower extremity, unspecified laterality- Primary Lumbar radiculopathy Thoracic or lumbosacral neuritis or radiculitis, unspecified documented in this encounter Advance Directives Documents on File Type Date Recorded Patient Analyst Microbiology Lab Expl anation Advance Directives and Living Will 09/26/2023 signed on 08/22/2023 ADVANCE DIRECTIVE / LIVING WILL Power of Research Test Engine Operator 09/26/2023 signed on 08/22/2023 POWER OF MOLDING ROOM SUPERVISOR HEALTH CARE Healthcare Agents on File Name Relationship Healthcare Agent Relationship Communication Erica Nunes Other - (no specific identity) Health Care Analyst Microbiology Lab (appointed verbally by patient or by statute hierarchy) Care Teams Assisted Living Assistant Relationship Specialty Start Date End Date Lavern Gomez DO [address] [place] [address] PCP - General Family Medicine 10/27/22 documented as of this encounter
--- OUTSIDE RECORDS SUMMARY | 2023-10-31 09:57 | External Medical Summary | Summary of Care ---
Author Name Unknown Organization [facility] Address [address] [place] [address] Phone [phone] Care Team Providers Care Copier Operator Name Role Phone Lavern Gomez Butch BERNARD Primary Care Provider [phone] Reason for Visit * Reason Comments Dosage Adjustment Via Phone (anticoag Cl inic) Encounter Details Date Type Department Care Team (Latest Contact Info) Description 10/28/2023 5:45 PM EDT Anticoagulation Pharmacy Call Center [phone] Public [facility] [place] [address] [facility] [address] [facility] [place] [address] Superficial vein thrombosis* Allergies Active Allergy Reactions [...] colon with perforation 023 Overview: Admission to [facility] 10/28. Last Assessment & Plan: Stable. 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 Major depressive disorder, recurrent, mild 04/30 Last [...] this will have to come through PCP, [facility] does not participate in chronic [...] mRNA, LNP-s, No Pre serve, 2-Dose Series (Cytox) 07/07/2021,10/04/2020,09/07/2020 Hepatitis B, 20+ yrs 11/05/2004,07/08/1995 PPD 01/25/2008 Pneumococcal Conjugate Vacc, 13 Valent (Prevnar) 06/10/2015 Pneumococcal Conjugate Vacci ne, 20-valent ([id number]) 06/06/2023 Pneumococcal Polysaccharide PPV23 (Pneumovax) 06/07/2019,12/26/2007 Seasonal [...] Progress Notes * Cintia Doe RPh - 10/28/2023 3:22 PM EDT Images from the original note were not included. Medication Therapy Disease Management - Anticoagulation Patient: Bonnie Oneal | : 1950 [facility] Patient Anticoagulation Encounter Patient is a resident at: [facility] -- Fax sent to number listed above detailing plan of care below. Please notify clinic with any unusual brusing or bleeding, N/V/D, medication or diet changes or anymissed or extra doses of Coumadin. Subjective Contacts Type Contact Phone/Fax 10/28/2023 01:25 PM EDT Phone (Outgoing) 10/28/2023 03:11 PM EDT Phone (Outgoing) Patient-Reported Symptoms: Objective Current Warfarin Dose As of 10/28/2023 Warfarin maintenance plan: 4 mg (2 mg x 2) every Tue, Kelsey; 6 mg (2 mg x 3) all other days INR Result As of 10/28/2023 INR goal: 2.0-3.0 INR used for dosin.7 (10/24/2023) Assessment & Plan Warfarin Plan As of 10/28/2023 Full warfarin instructions: 10/27: Hold; 10/28: Hold; Otherwise 4 mg every Tue, Kelsey, Sat; 6 mg all other days Next INR check: 11/13/2023 Repeat PT/INR in 1 week(s) after procedure. Will send additional directions for 11/05 procedure. Weekly dose: decreased Additional Dosing Information: Description 11/06/23 - pain procedure -- hold warfarin x5 days and bridge Cintia Doe RPh Clinical Pharmacist 10/28/2023, 3:24 PM * Patrica Zheng, accounting manager - 10/28/2023 1:24 PM EDT Called Kaylah Agee, INR was drawn today. Called Kash Fuentes, no specimen has been received yet today. Will continue to follow up. However, INR was drawn on 10/23, result in chart. Called [facility] Lab again at 3:12pm, still no specimen has been received. Spoke with [place]. Thank you, Patrica Zheng Court Commissioner [facility] ([facility]) (Formerly Telepharmacy) 10/28/2023, 1:24 PM documented in this encounter Plan of Treatment Upcoming Encounters Date Type Department Care Team (Late st Contact Info) Description 10/29/2023 1:00 PM EDT Scheduled Telephone [facility] [place], [facility] [address] [place] [address] Coordinator, [facility] 132 [place] [address] 10/30/2023 6:45 AM EDT Anticoagulation Pharmacy Call Center [address] [place] [address] Ccp, [facility] 58 [address] [place] [address] 10/30/2023 1:00 PM EDT Telemedicine Psychology, [place] [address] [place] [address] 2, Psychology Group [facility] [place] [address] 10/31/2023 10:30 AM EDT Office Visit Oral Maxillofacial Surgery, [place] [address] [place] [address] Gus Andrews DDS, [address] [place] [address] 11/05/2023 2:00 PM EDT Office Visit [address] [phone] Mark Carr MD [address] [place] [address] 11/06/2023 11:20 AM EDT Hospital Encounter OR [facility], Operating Room [facility] [address] [place], [place] [phone] Jeffery Rodríguez, DO [address] [place] [phone] 11/06/2023 11:20 AM EDT - 11/06/2023 11:45 AM EDT Surgery OR [facility], Operating Room [facility] [address] [place] [phone] Jeffery Rodríguez, DO [address] [place] [phone] INJECTION SPINE LUMBAR OR [facility] 11/06/2023 1:00 PM EDT Telemedicine [address] [address] 2, Psychology Group [address] [place] [address] 11/06/2023 2:30 PM EDT Home Visit [facility] [address] [place] [address] Sonja Robledo, RN [address] [place] [address] 11/13/2023 1:00 PM EDT Telemedicine [address] [address] 2, Psychology Group [address] [place] [address] 11/20/2023 1:00 PM EDT Telemedicine [address] [address] 2, Psychology Group [address] [place] [address] 11/27/2023 1:00 PM EDT Telemedicine [address] [address] 2, Psychology [address] [address] 12/04/2023 1:00 PM EDT Telemedicine [address] [address] 2, Psychology Group [address] [place] [address] 12/11/2023 1:00 PM EDT Telemedicine [address] [address] 2, Psychology [address] [address] 12/18/2023 11:20 AM EDT Office Visit [address] [phone] Debbie Otero PA-C [address] [place] [address] 12/31/2023 11:00 AM EDT Office Visit Cardiology, [facility] 132 [facility] [place] [address] Patricia Knott CRNP 132 [facility] [place] [address] 01/22/2024 11:40 AM EDT Office Visit [address] [phone] Debbie Otero PA-C [address] [place] [address] 03/31/2024 11:00 AM EDT Laboratory Laboratory, [place] [address] [facility] [phone] [place] [address] [facility] [address] 04/07/2024 2:00 PM EDT Office Visit Hematology/Oncology [facility] [place] [facility] [phone] Hanane Enamorado CRNP 400 [facility] [place] [address] 05/05/2024 10:00 AM EDT Nurse Only Ancillary Department, [place] [address] [facility] [place] [phone] [place], Nurse Annual Wellness [address] [facility] [phone] Scheduled Procedures Name Priority Associated Diagnoses Date/Ti [...] 08/30/2022, Additional history exists GFR 08/15/2024 08/15/2023, 07/2023, 08/01/2023, Additional history exists Lipid Panel 09/05/2025 09/05/2020, 06/08, 05/05/2018, Additional history exists Albumin/Creatinine Ratio 03/06/2026 023, 10/17/2021, 06/19/2017 DTaP,Tdap,and Td Vaccines (3 - Td or Tdap) 06/27/2030 06/27/2020, 06/01/2013, 04/02/2008, Additional history exists Diabetic Eye Exam Discontinued 11/02/2014, , 11/02/2014, Additional history exists Zoster Vaccines Completed 01/01/2019, 07/10, 06/05/2012 VITAMIN D LEVEL ONCE IN A LIFETIME-USE SMARTSET# [id number] Completed 11/21/2021, 06/06/2020, 02/16/2020, Additional history exists [...] Date/Time Associated Diagnosis Comments OUTSIDE LAB-PT/INR Routine 10/24/2023 documented in this encounter Results * (ABNORMAL) OUTSIDE LAB-PT/INR (10/24/2023) INR-OUTSIDE LAB 4.7(A) 2 - 3 10/24/2023 History Per Patient LABORATORY documented in this encounter Visit Diagnoses Diagnosis Superficial vein thrombosis- Primary Acute venous embolism and thrombosis of other specified veins Lumbar radiculopathy Thoracic or lumbosacral neuritis or radiculitis, unspecified documented in this encounter Advance Directives Documents on File Type Date Recorded Patient Presetter Operator Expl anation Advance Directives and Living Will 09/26/2023 signed on 08/22/2023 ADVANCE DIRECTIVE / LIVING WILL Power of Test Data Developer 09/26/2023 signed on 08/22/2023 POWER OF [facility] Healthcare Agents on File Name Relationship Healthcare Agent Relationship Communication Erica Nunes Other - (no specific identity) Health Care Presetter Operator (appointed verbally by patient or by statute hierarchy) Care Teams Copier Operator Relationship Specialty Start Date End Date Lavern Gomez DO [address] [place] [address] PCP - General Family Medicine 10/27/22 documented as of this encounter
--- OUTSIDE RECORDS SUMMARY | 2023-10-31 09:58 | External Medical Summary | Summary of Care ---
Author Name Unknown Organization [facility] Address [address] [place] [address] Phone [phone] Care Team Providers Care Weighmaster Name Role Phone Lavern Gomez Primary Care Provider Reason for Visit * Reason Comments [facility]: Acute Encounter Details Date Type Department Care Team (Late st Contact Info) Description 10/26/2023 2:00 PM EDT Home Visit [facility], [facility] [address] [place] [address] [facility], Nurse [facility] [address] [place] [address] Allergies Active Allergy Reactions Criticality Noted Date [...] as of this encounter (statuses as of 10/26/2023) Medications Medication Sig Dispensed Refills Start Date [...] 10/02/2023 Active Cephalexin 500 MG Oral CapsuleIndications: Acute cystitis without hematuria Take 1 Capsule by mouth in the morning and 1 Capsule at noon and 1 Capsule before bedtime. 21 Capsule 0 10/19/2023 Active documented as of this encounter (statuses as of 10/26/2023) Active Problems Problem Noted Date Diagnosed Date [...] colon with perforation 023 Overview: Admission to [facility] 10/28. Last Assessment & Plan: Stable. Still having diarrhea -Continue Invanz until 11/19/22 with ID at [facility] -Encouraged hydration Lymphedema 09/07/2022 Aneurysm of [...] 05/07/2018 Last Assessment & Plan: Followed by equipment mechanic Major depressive disorder, recurrent, mild 04/30 [...] this will have to come through PCP, [facility] does not participate in chronic [...] as of this encounter (statuses as of 10/26/2023) Resolved Problems Problem Noted Date Diagnosed Date Resolved Date Parkinson's disease 01/30/2023 08/13/19 Last Assessment & Plan: Stable on Carbidopa-Levodopa [...] as of this encounter (statuses as of 10/26/2023) Immunizations Name Administration Dates Next Due COVID-19 mRNA, LNP-s, No Pre serve, 2-Dose Series (Paymentus) 07/07/2021,10/04/2020,09/07/2020 Hepatitis B, 20+ yrs 11/05/2004,07/08/1995 PPD 01/25/2008 Pneumococcal Conjugate Vacc, 13 Valent (Prevnar) 06/10/2015 Pneumococcal Conjugate Vacci ne, 20-valent ([id number]) 06/06/2023 Pneumococcal Polysaccharide PPV23 (Pneumovax) 06/07/2019,12/26/2007 Seasonal [...] on file documented as of this encounter Last Filed Vital Signs Vital Sign Reading Time Taken Comments Blood Pressure 118/84 10/26/2023 12:31 PM EDT Pulse 76 10/26/2023 12:31 PM EDT Temperature 36.7 C (98.1 F) 10/26/2023 12:31 PM E DT Respiratory Rate 20 10/26/2023 12:31 PM EDT Oxygen Saturation 99% 10/26/2023 12:31 PM EDT Inhaled Oxygen Concentration - - Weight - - Height - - Body Mass Index - - documented in this encounter Progress Notes * Dara Kumar, RN - 10/26/2023 2:00 PM EDT Images from the original note were not included. [facility] [employer] Teacher[employer] Security Project Manager Visit Date: 10/26/2023 Time: 12:30 PM Name: Bonnie Oneal : 1950 SITUATION: Patient is being seen for f/u acute cellulitis. Received IM Rocephin 10/23 and 10/25/23. BACKGROUND: Parkinson's disease, RLS, hypercoagulopathy, h/o PE, asthma, monoallelic mutation of COL3A1 gene, HTN, fibromyalgia, Svt, afib, HF, osteoporosis, depression, PTSD ASSESSMENT: BP 118/84 (BP Site: Right Arm, BP Position: Supine, BP Cuff Size: Regular) | Pulse 76 | Temp 36.7 C (98.1 F) (Infrared ) | Resp 20 | SpO2 99% Pt seen for acute visit for f/u of cellulitis Received 1 gm IM Rocephin 10/23 and 10/24 Continues with redness, has decreased BLE without warmth, actually a little cold to the touch Continues with weeping from legs, LLE blister broke open this morning Afebrile Pt is requesting another dose of IM Rocephin today States she does not absorb pills well and IM works better for her. 10/26/23 10/25/23 10/24/23 RECOMMENDATION: Reviewed with provider--orders provided for Rocephin 1 gm IM Continue with elevation Instructed to report worsening s/s of infection: Redness, swelling, uncontrolled pain, green/yellowdrainage, foul odor or fever. Continue to take medications as ordered Keep medical follow up appt's RNCM HV f/u 1 day Physical Exam: BP 118/84 (BP Site: Right Arm, BP Position: Supine, BP Cuff Size: Regular) | Pulse 76 | Temp 36.7 C (98.1 F) (Infrared ) | Resp 20 | SpO2 99% Physical Exam Constitutional: General: She is not in acute distress. Appearance: She is obese. HENT: Nose: Nose normal. Mouth/Throat: Mouth: Mucous membranes are moist. Cardiovascular: Rate and Rhythm: Normal rate and regular rhythm. Pulses: Normal pulses. Heart sounds: Normal heart sounds. Musculoskeletal: Right lower leg: Edema (+1 pitting edema bilateral feet) present. Left lower leg: Edema present. Neurological: Mental Status: She is oriented to person, place, and time. Problems/Symptoms: Review of Systems Constitutional: Negative for appetite change, chills and fever. Cardiovascular: Positive for leg swelling. Gastrointestinal: Negative for constipation, diarrhea, nausea and vomiting. Musculoskeletal: Positive for arthralgias and gait problem. Skin: Positive for color change (BLE redness). Neurological: Positive for dizziness and light-headedness. Medication Reconciliation: (See medication list) Does patient take medications as ordered: Yes Patient Well Being: PHQ2/9: No questionnaires available. MAH-10 Completed this Visit: No. No falls since last visit Reinforcement/Education: Instructed to report any signs of infection: Redness, swelling, uncontrolled pain, green/yellow drainage, foul odor or fever. Educated on home safety: Create a fall proof home Clear floors of clutter, loose wires, throw rugs, and cords. Make sure halls, stairways, and entrances are well lit. Install a nightlight in your bedroom, hallway and bathroom. Install grab bars or handrails in the bathroom and on stairs. Use a non-skid tub/shower mat. Avoid climbing on a chair; instead use a step stool with a high handrail. Keep sidewalks and steps in good repair Keep steps and sidewalks free of snow and ice. Using aids to support and prevent falls If you have poor balance or have fallen in the past, consider additional support such as a cane or walker. Use a cane with good support and that is the proper length for you. Use a walker if a cane doesnt provide enough support. Avoid medications that increase the risk of falling by causing dizziness, change in sensation or slowed reflexes. Certain medicines may cause falls - blood pressure pills, heart medicines, water pills, or sleepingpills. Be sure to understand each medicine that you are taking and any side effects that may occur. Improve your balance and flexibility with muscle strengthening exercises. Ask your health care provider for some exercises that will be right for you. Reinforced safety education and fall prevention. Treatment/Plan: IM Rocephin 1 GM Home Interventions Provided: IV Interventions: Antibiotic Rocephin IM Consulted PCP/Specialist Reinforced current Plan of Care, including self-management and medication regimen Patient's 'Red Flags': Uncontrolled pain Increased edema/redness of LE's Wt gain of 2 lbs in 24 hrs or 5 lbs in one week Patient Needs to Remember: Call [facility] at with any new or worsening health concerns or problems, red flag symptoms. Referrals Needed: none Follow Up: Is there cellular connectivity/connectivity in the home? Yes Does the patient have internet in the home? Yes Patient encouraged to call the intake phone number for all urgent but not emergent issues. Is the patient new to [facility] within the last 30 days? No, Assess appropriateness for upcoming telehealth visits. Cancel telehealth visits & schedule home visit with care truck driver teamster(s)as indicated. Provider is in agreement with Plan of Care: Yes Scheduled to follow up with patient in 1 day. Dara Kumar RN 10/26/2023 8:52 AM documented in this encounter Plan of Treatment Upcoming Encounters Date Type Department Care Team (Late st Contact Info) Description 10/27/2023 10:00 AM EDT Home Visit [facility] [place], [facility] 132 [facility] [place] [address] [facility], Nurse [address] [place] [address] 10/28/2023 5:45 PM EDT Anticoagulation Pharmacy Call Center [place] [address] [facility] [place] [address] [facility], [facility] 58 60 [facility] [place] [address] 10/30/2023 1:00 PM EDT Telemedicine Psychology, [place] [address] [place] [address] 2, Psychology Group [facility] [place] [address] 10/31/2023 10:30 AM EDT Office Visit Oral Maxillofacial Surgery, [place] [address] [place] [address] Gus Andrews DDS, [address] [place] [address] 11/05/2023 2:00 PM EDT Office Visit [place] [address] [place] [address] Mark Carr MD [address] [place] [address] 11/06/2023 11:20 AM EDT Hospital Encounter OR [facility], Operating Room [facility] [address] [place] [phone] Jeffery Rodríguez, DO [address] [place] [phone] 11/06/2023 11:20 AM EDT - 11/06/2023 11:45 AM EDT Surgery OR [facility], Operating Room [facility] [address] [place] [phone] Jeffery Rodríguez, DO [address] [place] [phone] INJECTION SPINE LUMBAR OR SACRAL 11/06/2023 1:00 PM EDT Telemedicine Psychology[address] [address] 2, Psychology Group [address] [place] [address] 11/06/2023 2:30 PM EDT [facility] 132 [place] [address] Sonja Robledo RN 132 [place] [address] 11/13/2023 1:00 PM EDT Telemedicine [address] [address] 2, Psychology Group [address] [place] [address] 11/20/2023 1:00 PM EDT Telemedicine [address] [address] 2, Psychology Group [address] [place] [address] 11/27/2023 1:00 PM EDT Telemedicine Psychology[address] [address] 2, Psychology Group [address] [place] [address] 12/04/2023 1:00 PM EDT Telemedicine Psychology[address] [address] 2, Psychology Group [address] [place] [address] 12/11/2023 1:00 PM EDT Telemedicine Psychology[address] [address] 2, Psychology Group [address] [place] [address] 12/18/2023 11:20 AM EDT Office Visit [facility] [address] [facility], [place] [phone] Debbie Otero PA-C [address] [facility] [place] [phone] 12/31/2023 11:00 AM EDT Office Visit Cardiology, [facility] [address] [facility] [address] Patricia Knott CRNP [address] [facility] [place] [address] 01/22/2024 11:40 AM EDT Office Visit [facility], [place] [address] [facility] [phone] Debbie Otero PA-C [address] [facility] [phone] 03/31/2024 11:00 AM EDT Laboratory Laboratory, [place] [address] [facility] [phone] [place], Laboratory [address] [facility], [place] [phone] 04/07/2024 2:00 PM EDT Office Visit Hematology/Oncology [facility] 200 [facility] [phone] Hanane Enamorado CRNP [address] [place] [address] 05/05/2024 10:00 AM EDT Nurse Only Ancillary Department, [place] [address] [facility] [address] [place] Nurse Annual Wellness [address] [facility] [address] Scheduled Procedures Name Priority Associated Diagnoses Date/Ti [...] D LEVEL ONCE IN A LIFETIME-USE SMARTSET# [id number] Completed 11/21/2021, 06/06/2020, 02/16/2020, Additional history exists [...] Documents on File Type Date Recorded Patient Refrigerated Company Driver Expl anation Advance Directives and Living Will 09/26/2023 signed on 08/22/2023 ADVANCE DIRECTIVE / LIVING WILL Power of Gusset Ripper 09/26/2023 signed on 08/22/2023 POWER OF L[employer]OGRAPH [facility] [facility] Healthcare Agents on File Name Relationship Healthcare Agent Relationship Communication Erica Nunes Other - (no specific identity) Health Care Refrigerated Company Driver (appointed verbally by patient or by statute hierarchy) Care Teams Weighmaster Relationship Specialty Start Date End Date Lavern Gomez DO [address] [place], [place] [phone] PCP - General Family Medicine 10/27/22 documented as of this encounter
--- OUTSIDE RECORDS SUMMARY | 2023-10-31 09:58 | External Medical Summary | Summary of Care ---
Author Name Unknown Organization [facility] Address [address] [place] [address] Phone [phone] Care Team Providers Care Shuttle Fitting Supervisor Name Role Phone Lavern Gomez Primary Care Provider Reason for Visit * Reason Onset Date Comments [facility]: Acute 10/27/2023 Sudha ce llulitis Encounter Details Date Type Department Care Team (Late st Contact Info) Description 10/27/2023 Telephone [facility], [facility] [address] [place] [address] Dara Kumar, RN [address] [place] [address] [facility]: Acute (Sudha cellulitis) Allergies [...] colon with perforation 023 Overview: Admission to [facility] 10/28. Last Assessment & Plan: Stable. Still having diarrhea -Continue Invanz until 11/19/22 with [place] [facility] [place]Encouraged hydration Lymphedema 09/07/2022 Aneurysm of ascending [...] 05/07/2018 Last Assessment & Plan: Followed by blacking wheel tender Major depressive disorder, recurrent, mild 04/30 Last [...] this will have to come through PCP, [facility] does not participate in chronic pain management. [...] mRNA, LNP-s, No Pre serve, 2-Dose Series ([employer]) 07/07/2021,10/04/2020,09/07/2020 Hepatitis B, 20+ yrs 11/05/2004,07/08/1995 PPD 01/25/2008 Pneumococcal Conjugate Vacc, 13 Valent (Prevnar) 06/10/2015 Pneumococcal Conjugate Vacci ne, 20-valent ([id number]) 06/06/2023 Pneumococcal Polysaccharide PPV23 (Pneumovax) 06/07/2019,12/26/2007 Seasonal [...] encounter Miscellaneous Notes * Telephone Encounter - Pollo Thomas DO [...] PM EDT Anticoagulation Pharmacy Call Center [address] [place] [address] [facility], [facility] 58 [address] [place] [address] 10/30/2023 1:00 PM EDT Telemedicine Psychology, [address] [address], Psychology Group [facility] [place] [address] 10/31/2023 10:30 AM EDT Office Visit Oral Maxillofacial Surgery, [place] [address] [place] [address] uGs Andrews DDS, MD [address] [place], [place] [address] 11/05/2023 2:00 PM EDT Office Visit [place] [address] [place] [address] Mark Carr MD [address] [place] [address] 11/06/2023 11:20 AM EDT Hospital Encounter OR [facility], Operating Room [facility] [address] [place], [place] [phone] Jeffery Rodríguez, DO [address] [place] [address] 11/06/2023 11:20 AM EDT - 11/06/2023 11:45 AM EDT Surgery OR [facility], Operating Room [facility] [address] [place] [address] Jeffery Rodríguez, DO [address] [place] [address] INJECTION SPINE LUMBAR OR SACRAL 11/06/2023 1:00 PM EDT Telemedicine [address] [address], Psychology Group [address] [place] [address] 11/06/2023 2:30 PM EDT [facility] [address] [facility] [place] [address] Sonja Robledo, RN 132 [place] [address] 11/13/2023 1:00 PM EDT Telemedicine [address] [address] 2, Psychology Group [address] [place] [address] 11/20/2023 1:00 PM EDT Telemedicine [address] [address] 2, Psychology Group [address] [place] [address] 11/27/2023 1:00 PM EDT Telemedicine [address] [address] 2, Psychology [address] [address] 12/04/2023 1:00 PM EDT Telemedicine [address] [address] 2, Psychology [address] [address] 12/11/2023 1:00 PM EDT Telemedicine [address] [address] 2, Psychology [address] [address] 12/18/2023 11:20 AM EDT Office Visit Family [facility], [address] [phone] Debbie Otero PA-C [address] [place] [address] 12/31/2023 11:00 AM EDT Office Visit Cardiology, [facility] 132 [facility] [place] [address] Patricia Knott CRNP 132 [facility] [place] [address] 01/22/2024 11:40 AM EDT Office Visit [facility], [address] [phone] Debbie Otero PA-C [address] [place] [address] 03/31/2024 11:00 AM EDT Laboratory Laboratory, [address] [place] [phone] Dagoberto, Laboratory [address] [facility] [place] [id number] 04/07/2024 2:00 PM EDT Office Visit Hematology/Oncology [facility] [place] [address] [facility] [address] Hanane Enamorado CRNP [address] [place] [address] 05/05/2024 10:00 AM EDT Nurse Only Ancillary Department, [place] [address] [facility] [place], [place] [phone] Dagoberto Nurse Annual Wellness [address] [facility] Rodriges [phone] Scheduled Orders Name Type Priority Associated Diagnoses [...] D LEVEL ONCE IN A LIFETIME-USE SMARTSET# [id number] Completed 11/21/2021, 06/06/2020, 02/16/2020, Additional history exists [...] Documents on File Type Date Recorded Patient Sample Coordinator Expl anation Advance Directives and Living Will 09/26/2023 signed on 08/22/2023 ADVANCE DIRECTIVE / LIVING WILL Power of Manager Educational 09/26/2023 signed on 08/22/2023 POWER OF VICE PRESIDENT BIOSTATISTICS HEALTH CARE Healthcare Agents on File Name Relationship Healthcare Agent Relationship Communication Ericanati FangSpring Lake Colony Other - (no specific identity) Health Care Sample Coordinator (appointed verbally by patient or by statute hierarchy) Care Teams Shuttle Fitting Supervisor Relationship Specialty Start Date End Date Lavern Gomez DO [address] [place] [address] PCP - General Family Medicine 10/27/22 documented as of this encounter
--- OUTSIDE RECORDS SUMMARY | 2023-10-31 09:58 | External Medical Summary | Summary of Care ---
Author Name Unknown Organization [facility] Address [address] [place] [address] Phone [phone] Care Team Providers Care Ppap Coordinator Name Role Phone Lavern Gomez Primary Care Provider Reason for Visit * Reason Comments [facility]: Acute Encounter Details Date Type Department Care Team (Late st Contact Info) Description 10/26/2023 2:00 PM EDT Home Visit [facility], [facility] [address] [place] [address] [facility], Nurse [facility] [address] [place] [address] Allergies Active Allergy Reactions Criticality Noted Date [...] with perforation 023 Overview: Admission to [facility] 10/28. Last Assessment & Plan: Stable. 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 road design engineer Major depressive disorder, recurrent, mild 04/30 [...] this will have to come through PCP, [facility] does not participate in chronic pain [...] mRNA, LNP-s, No Pre serve, 2-Dose Series ([employer]) 07/07/2021,10/04/2020,09/07/2020 Hepatitis B, 20+ yrs 11/05/2004,07/08/1995 PPD 01/25/2008 Pneumococcal Conjugate Vacc, 13 Valent (Prevnar) 06/10/2015 Pneumococcal Conjugate Vacci ne, 20-valent ([id number]) 06/06/2023 Pneumococcal Polysaccharide PPV23 (Pneumovax) 06/07/2019,12/26/2007 Seasonal [...] from the original note were not included. [facility] Data Processing Equipment RepairerWhitewater River Guide Visit Date: 10/26/2023 Time: 12:30 PM Name: [...] one week Patient Needs to Remember: Call [facility] at with any new or worsening health concerns or problems, red flag symptoms. Referrals Needed: none Follow Up: Is there cellular connectivity/connectivity in the home? Yes Does the patient have internet in the home? Yes Patient encouraged to call the intake phone number for all urgent but not emergent issues. Is the patient new to [facility] within the last 30 days? No, Assess appropriateness for upcoming telehealth visits. Cancel telehealth visits & schedule home visit with care warehouse team member(s)as indicated. Provider is in agreement with Plan of Care: Yes Scheduled to follow up with patient in 1 day. Dara Kumar RN 10/26/2023 8:52 AM documented in this encounter Plan of Treatment Upcoming Encounters Date Type Department Care Team (Late st Contact Info) Description 10/27/2023 10:00 AM EDT [facility] Visit [facility] [place], [facility] 132 [facility] [place] [address] [facility], Nurse [address] [place] [address] 10/28/2023 5:45 PM EDT Anticoagulation Pharmacy Call Center WB [address] [facility] [place]oslava [place] [address] [facility] 58 60 [facility] [place] [address] 10/30/2023 1:00 PM EDT Telemedicine Psychology, [place] [address] [place] [address] 2, Psychology Group [facility] [place] [address] 10/31/2023 10:30 AM EDT Office Visit Oral Maxillofacial Surgery, [place] [address] [place] [address] Gus Andrews DDS, [address] [place] [address] 11/05/2023 2:00 PM EDT Office Visit [place] [address] [place] [address] Mark Carr MD [address] [place] [address] 11/06/2023 11:20 AM EDT Hospital Encounter OR [facility], Operating Room [facility] [address] [place] [phone] Jeffery Rodríguez, DO [address] [place] [address] 11/06/2023 11:20 AM EDT - 11/06/2023 11:45 AM EDT Surgery OR [facility], Operating Room [facility] [address] [place] [phone] Jeffery Rodríguez, DO [address] [place] [address] INJECTION SPINE LUMBAR OR SACRAL 11/06/2023 1:00 PM EDT Telemedicine [address] [address], Psychology Group [address] [place] [address] 11/06/2023 2:30 PM EDT [facility] 132 [place] [address] Sonja Robledo RN 132 [place] [address] 11/13/2023 1:00 PM EDT Telemedicine [address] [address], Psychology Group [address] [place] [address] 11/20/2023 1:00 PM EDT Telemedicine [address] [address] 2, Psychology Group [address] [place] [address] 11/27/2023 1:00 PM EDT Telemedicine Psychology[address] [address], Psychology Group [address] [place] [address] 12/04/2023 1:00 PM EDT Telemedicine Psychology[address] [address] 2, Psychology Group [address] [place] [address] 12/11/2023 1:00 PM EDT Telemedicine Psychology[address] [address] 2, Psychology Group [address] [place] [address] 12/18/2023 11:20 AM EDT Office Visit [facility] [address] [facility], [place] [phone] Debbie Otero PA-C [address] [facility] [place] [phone] 12/31/2023 11:00 AM EDT Office Visit Cardiology, [facility] [address] [facility] [address] Patricia Knott CRNP [facility] [place] [address] 01/22/2024 11:40 AM EDT Office Visit [facility] [place] [address] [facility] [address] Debbie Otero PA-C [address] [facility] [phone] 03/31/2024 11:00 AM EDT Laboratory Laboratory, [place] [address] [facility] [address] [place], Laboratory [address] [facility], [place] [phone] 04/07/2024 2:00 PM EDT Office Visit Hematology/Oncology [facility] 200 [facility] [phone] Hanane Enamorado CRNP [address] [place] [address] 05/05/2024 10:00 AM EDT Nurse Only Ancillary Department, [place] [address] [facility] [address] Dagoberto Nurse Annual Wellness [address] [facility] [address] Scheduled Procedures Name Priority Associated Diagnoses Date/Ti [...] D LEVEL ONCE IN A LIFETIME-USE SMARTSET# [id number] Completed 11/21/2021, 06/06/2020, 02/16/2020, Additional history exists [...] Not on filedocumented as of this encounter Administered Medications Inactive Administered Medications - up to 3 most recent administrations Medication Order MAR Action Action Date Dose Rate Site cefTRIAXone (Rocephin) inj 1 g 1 g, Intramuscular, ONCE, On 10/26/23 at 1430, For 1 dose Given 10/26/2023 2:31 PM EDT 1 g Deltoid Right Upper documented in this encounter Advance Directives Documents on File Type Date Recorded Patient Overhead Crane Technician Expl anation Advance Directives and Living Will 09/26/2023 signed on 08/22/2023 ADVANCE DIRECTIVE / LIVING WILL Power of Problem Manager 09/26/2023 signed on 08/22/2023 POWER OF PATIENT SAFETY COORDINATOR HEALTH CARE Healthcare Agents on File Name Relationship Healthcare Agent Relationship Communication Erica Nunes Other - (no specific identity) Health Care Overhead Crane Technician (appointed verbally by patient or by statute hierarchy) Care Teams Ppap Coordinator Relationship Specialty Start Date End Date Lavern Gomez DO [address] [place] [address] PCP - General Family Medicine 10/27/22 documented as of this encounter
--- OUTSIDE RECORDS SUMMARY | 2023-10-31 09:58 | External Medical Summary | Summary of Care ---
Author Name Unknown Organization [facility] Address [address] [place] [address] Phone [phone] Care Team Providers Care Lean Leader Name Role Phone Lavern Gomez Primary Care Provider [phone] Reason for Visit * Reason Onset Date Comments [facility]: Acute 10/26/2023 Celluli tis recheck Encounter Details Date Type Department Care Team (Late st Contact Info) Description 10/26/2023 Telephone [facility], [facility] [place] [address] Dara Kumar, RN [address] [place] [address] [facility]: Acute (Cellulitis recheck) Allergies Active Allergy Reactions Criticality Noted Date [...] before bedtime. 21 Capsule 0 10/19/2023 Active Hospital, Clinic, or Other Facility Administered Medication Ordered Dose Route Frequency Start Date End Date Status cefTRIAXone (Rocephin) inj 1 gIndications:Cellulitis of lower extremity, unspecified laterality 1 g IM ONCE 10/26/2023 10/26/2023 En ded documented as of this encounter [...] colon with perforation 023 Overview: Admission to [facility] 10/28. 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 Major depressive disorder, recurrent, mild 04/30 Last [...] this will have to come through PCP, [facility] does not participate in chronic pain [...] mRNA, LNP-s, No Pre serve, 2-Dose Series ([employer] 07/07/2021,10/04/2020,09/07/2020 Hepatitis B, 20+ yrs 11/05/2004,07/08/1995 PPD 01/25/2008 Pneumococcal Conjugate Vacc, 13 Valent (Prevnar) 06/10/2015 Pneumococcal Conjugate Vacci ne, 20-valent ([id number]) 06/06/2023 Pneumococcal Polysaccharide PPV23 (Pneumovax) 06/07/2019,12/26/2007 Seasonal [...] Telephone Encounter - Pollo Thomas DO - 10/26/2023 1:57 PM EDT Advise treatment with ceftriaxone 1 g IM x1 dose today. * Telephone Encounter - Dara Kumar RN - 10/26/2023 12:48 PM EDT Images from the original note were not included. Name: Bonnie Oneal : 1950 SITUATION: Patient [...] and 10/24 Continues with redness, has decreased a little in the past 24 hours BLE without warmth, actually a little cold to the touch Continues with weeping(clear drainage) from legs, LLE blister broke open this morning Afebrile Pt is requesting another dose of IM Rocephin today States she does not absorb pills well and IM works better for her. 10/26/23 10/25/23 10/24/23 RECOMMENDATION: Reviewed with provider Continue with elevation Instructed to report worsening s/s of infection: Redness, swelling, uncontrolled pain, green/yellowdrainage, foul odor or fever. Continue to take medications as ordered Keep medical follow up appt's [facility] [place] [address] documented in this encounter Plan of Treatment Upcoming Encounters Date Type Department Care Team (Late st Contact Info) Description 10/27/2023 10:00 AM EDT Home Visit [facility] [place], [address] [place] [address] [facility], Nurse [address] [place] [address] 10/28/2023 5:45 PM EDT Anticoagulation Pharmacy Call Center [address] [place] [address] [facility] [address] [place] [address] 10/30/2023 1:00 PM EDT Telemedicine [place] [address] [place] [address] 2, Psychology Group [facility] [place] [place] [address] 10/31/2023 10:30 AM EDT Office Visit Oral Maxillofacial Surgery, [place] [address] [place] [address] Gus Andrews DDS, MD [address] [place], [place] [address] 11/05/2023 2:00 PM EDT Office Visit [address] [address] Mark Carr MD [address] [place] [address] 11/06/2023 11:20 AM EDT Hospital Encounter OR [facility], Operating Room [facility] [address] [place], [place] [phone] Jeffery Rodríguez, DO [address] [place] [phone] 11/06/2023 11:20 AM EDT - 11/06/2023 11:45 AM EDT Surgery OR [facility], Operating Room O[facility] [address] [place] [phone] Jeffery Rodríguez, DO [address] [place], [place] [phone] INJECTION SPINE LUMBAR OR SACRAL 11/06/2023 1:00 PM EDT Telemedicine [address] [address], Psychology Group [address] [place] [address] 11/06/2023 2:30 PM EDT [facility] [address] [facility] [place] [address] Sonja Robledo, RN 132 [facility] [place] [address] 11/13/2023 1:00 PM EDT Telemedicine [address] [address] 2, Psychology Group [address] [place] [address] 11/20/2023 1:00 PM EDT Telemedicine [address] [address] 2, Psychology Group [address] [place] [address] 11/27/2023 1:00 PM EDT Telemedicine [address] [address] 2, Psychology Group [address] [place] [address] 12/04/2023 1:00 PM EDT Telemedicine [address] [address] 2, Psychology Group [address] [place] [address] 12/11/2023 1:00 PM EDT Telemedicine [address] [address] 2, Psychology [address] [address] 12/18/2023 11:20 AM EDT Office Visit [address] [phone] Debbie Otero PA-C [address] [place] [address] 12/31/2023 11:00 AM EDT Office Visit Cardiology, [facility] 132 [facility] [place] [address] Patricia Knott CRNP 132 [facility] [place] [address] 01/22/2024 11:40 AM EDT Office Visit [address] [phone] Debbie Otero PA-C [address] [place] [address] 03/31/2024 11:00 AM EDT Laboratory Laboratory, [place] [address] [facility] [phone] Dagoberto Laboratory [address] [facility] [place] [phone] 04/07/2024 2:00 PM EDT Office Visit [facility] [place] 200 [facility] [phone] Hanane Enamorado CRNP [address] [place] [address] 05/05/2024 10:00 AM EDT Nurse Only Ancillary Department, [place] [address] [place] [phone] Dagoberto Nurse Annual Wellness [address] [facility] [place] [phone] Scheduled Procedures Name Priority Associated Diagnoses Date/Ti [...] D LEVEL ONCE IN A LIFETIME-USE SMARTSET# [id number] Completed 11/21/2021, 06/06/2020, 02/16/2020, Additional history exists [...] Documents on File Type Date Recorded Patient Shrimp Peeler Expl anation Advance Directives and Living Will 09/26/2023 signed on 08/22/2023 ADVANCE DIRECTIVE / LIVING WILL Power of Skidder Operator 09/26/2023 signed on 08/22/2023 POWER OF CONVENTIONAL MORTGAGE UNDERWRITER HEALTH CARE Healthcare Agents on File Name Relationship Healthcare Agent Relationship Communication Erica Nunes Other - (no specific identity) Health Care Shrimp Peeler (appointed verbally by patient or by statute hierarchy) Care Teams Lean Leader Relationship Specialty Start Date End Date Lavern Gomez DO [address] [place] [address] PCP - General Family Medicine 10/27/22 documented as of this encounter
--- OUTSIDE RECORDS SUMMARY | 2023-10-31 09:58 | External Medical Summary | Summary of Care ---
Author Name Unknown Organization [facility] Address [address] [place] [address] Phone [phone] Care Team Providers Care Chief Jailer Name Role Phone Lavern Gomez Primary Care Provider Reason for Visit * Reason Comments [facility]: Acute Encounter Details Date Type Department Care Team (Late st Contact Info) Description 10/27/2023 10:00 AM EDT Home Visit [facility], [facility] [address] [place] [address] [facility], Nurse [facility] [address] [place] [address] Cellulitis* Allergies Active Allergy Reactions Criticality Noted Date [...] a week. 4 Patch 0 10/02/2023 Active documented as of this encounter (statuses [...] colon with perforation 023 Overview: Admission to [facility] 10/28. Last Assessment & Plan: Stable. 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 [...] embolism and infarction 04/30/2018 03/03/2019 Acquired hypothyroidism 04/07/20182 03/2018 Localized edema 06/18/2017 03/03/2019 Malaise and fatigue [...] mRNA, LNP-s, No Pre serve, 2-Dose Series ([employer]) 07/07/2021,10/04/2020,09/07/2020 Hepatitis B, 20+ yrs 11/05/2004,07/08/1995 PPD 01/25/2008 Pneumococcal Conjugate Vacc, 13 Valent (Prevnar) 06/10/2015 Pneumococcal Conjugate Vacci ne, 20-valent ([id number]) 06/06/2023 Pneumococcal Polysaccharide PPV23 (Pneumovax) 06/07/2019,12/26/2007 Seasonal [...] Sign Reading Time Taken Comments Blood Pressure 120/82 10/27/2023 10:17 AM EDT Pulse 83 10/27/2023 10:17 AM EDT Temperature 36.7 C (98.1 F) 10/27/2023 10:17 AM E DT Respiratory Rate 16 10/27/2023 10:17 AM EDT Oxygen Saturation 98% 10/27/2023 10:17 AM EDT Inhaled Oxygen Concentration - - Weight - - Height - - Body Mass Index - - documented in this encounter Progress Notes * Dara Kumar RN - 10/27/2023 10:06 AM EDT Images from the original note were not included. [facility] Digital LibrarianTrade Sales Assistant Visit Date: 10/27/2023 Time: 10:07 AM Name: Bonnie Oneal : 1950 SITUATION: Patient is being seen for f/u acute cellulitis. Received IM Rocephin 10/23, 10/24 and 10/25. BACKGROUND: Parkinson's disease, RLS, hypercoagulopathy, h/o PE, asthma, monoallelic mutation of COL3A1 gene, HTN, fibromyalgia, Svt, afib, HF, osteoporosis, depression, PTSD ASSESSMENT: Pt seen for acute visit for f/u of cellulitis Received 1 gm IM Rocephin 10/23, 10/24 and 10/25 Continues with redness, has decreased No warmth to touch Continues with weeping from legs, LLE blister broke open morning of 10/26/23 Afebrile Pt c/o chronic pain in shoulders, feet. C/o ankles feel tight like they are in a vice. Pt has not taken morning medications-sitting in medicine cup on bedside table. Pt states when she does not sleep at night it gets her worked up and she has to settle down before she takes her medications. 10/27/23 10/26/23 10/25/23 10/24/23 RECOMMENDATION: Reviewed with provider--Rocephin 1 gm IM today, new orders for cephalexin, BLE arterial doppler Continue with elevation Instructed to report worsening s/s of infection: Redness, swelling, uncontrolled pain, green/yellowdrainage, foul odor or fever. Continue to take medications as ordered Keep medical follow up appt's Phone nurse f/u in 1 day [facility] visit end of week to obtain photo f/u. Message to [facility] scheduling to assist with scheduling arterial doppler and contacting Kaylah. Problems/Symptoms: Review of Systems Constitutional: Negative for appetite change, chills, fatigue and fever. Respiratory: Negative for shortness of breath. Cardiovascular: Positive for leg swelling. Negative for chest pain. Gastrointestinal: Negative for diarrhea, nausea and vomiting. Musculoskeletal: Positive for arthralgias, gait problem and myalgias. Skin: Positive for wound (LLE blister open-scant serosanguineous drainage noted). Neurological: Positive for dizziness. Physical Exam: BP 120/82 (BP Site: Right Arm, BP Position: Sitting, BP Cuff Size: Regular) | Pulse 83 | Temp 36.7 C (98.1 F) (Infrared ) | Resp 16 | SpO2 98% Physical Exam Constitutional: Appearance: She is obese. HENT: Head: Normocephalic. Nose: Nose normal. Mouth/Throat: Mouth: Mucous membranes are moist. Cardiovascular: Rate and Rhythm: Normal rate and regular rhythm. Musculoskeletal: General: Swelling (BLE swelling, +1 pitting edema in feet) present. Skin: General: Skin is warm and dry. Findings: Bruising present. Neurological: Mental Status: She is alert. Medication Reconciliation: (See medication list) Does patient take medications as ordered: Yes Spoke with Polina in nurses office. Reviewed new orders. Pt finished last dose of cephalexin yesterday. Copy of new orders faxed to [facility] FAX is [phone] Polina will watch for orders. [facility] Completed this Visit: No. No falls since last visit Treatment/Plan: Rocephin Igm IM Rx cephalexin-sent to [facility] Arterial doppler Home Interventions Provided: IV Interventions: Antibiotic given IM Patient's 'Red Flags': Uncontrolled pain Increased edema/redness of LE's Wt gain of 2 lbs in 24 hrs or 5 lbs in one week Patient Needs to Remember: Call [facility] at with any new or worsening health concerns or problems, red flag symptoms. Referrals Needed: [facility] Follow Up: Is there cellular connectivity/connectivity in the home? Yes Does the patient have internet in the home? Yes Patient encouraged to call the intake phone number for all urgent but not emergent issues. Scheduled to follow up with patient in 1 day. Dara Kumar RN 10/27/2023 10:07 AM documented in this encounter Plan of Treatment Upcoming Encounters Date Type Department Care Team (Late st Contact Info) Description 10/28/2023 1:00 PM EDT Scheduled Telephone [facility], [place] [address] [address] [place] [address] Coordinator, [place] [address] [facility] [place] [address] 10/28/2023 5:45 PM EDT [facility] Call Center [address] [facility] [place] [address] Ccps, [facility] 58 60 [facility] [place] [address] 10/29/2023 1:00 PM EDT Scheduled Telephone [facility], [facility] [address] [place] [address] Coordinator, [address] [place] [address] 10/30/2023 1:00 PM EDT Telemedicine Psychology, [place] [address] [place] [address] 2, Psychology Group [facility] [place] [address] 10/31/2023 10:30 AM EDT Office Visit Oral Maxillofacial Surgery, [place] [address] [place] [address] Gus Andrews DDS, [address] [place] [address] 11/05/2023 2:00 PM EDT Office Visit [address] [address] Mark Carr MD [address] [place] [address] 11/06/2023 11:20 AM EDT Hospital Encounter OR [facility], Operating Room [facility] [address] [place] [phone] Jeffery Rodríguez, DO [address] [place] [address] 11/06/2023 11:20 AM EDT - 11/06/2023 11:45 AM EDT Surgery OR [facility], Operating Room [facility] [address] [place] [address] Jeffery Rodríguez, DO [address] [place] [phone] INJECTION SPINE LUMBAR OR [facility] 11/06/2023 1:00 PM EDT Telemedicine [address] [address] 2, Psychology Group [address] [place] [address] 11/06/2023 2:30 PM EDT Home Visit [facility] [address] [place] [address] Sonja Robledo, RN [address] [place] [facility] [address] 11/13/2023 1:00 PM EDT Telemedicine [address] [address] 2, Psychology Group [address] [place] [address] 11/20/2023 1:00 PM EDT Telemedicine [address] [address] 2, Psychology Group [facility] [place] [address] 11/27/2023 1:00 PM EDT Telemedicine [address] [address] 2, Psychology Group [address] [place] [address] 12/04/2023 1:00 PM EDT Telemedicine [address] [address] 2, Psychology [address] [address] 12/11/2023 1:00 PM EDT Telemedicine [address] [address] 2, Psychology Group [address] [place] [address] 12/18/2023 11:20 AM EDT Office Visit [facility], [address] [phone] Debbie Otero PA-C [address] [place] [address] 12/31/2023 11:00 AM EDT Office Visit Cardiology, [facility] 132 [facility] [place] [address] Patricia Knott CRNP [facility] [place] [address] 01/22/2024 11:40 AM EDT Office Visit [facility], [address] [phone] Debbie Otero PA-C [address] [place] [address] 03/31/2024 11:00 AM EDT Laboratory Laboratory, [place] [address] [facility] [address] [place], Laboratory [address] [facility] [place] [phone] 04/07/2024 2:00 PM EDT Office Visit Hematology/Oncology [facility] [place] [address] [facility], [place] [phone] Hanane Enamorado CRNP [address] [facility] [place] [address] 05/05/2024 10:00 AM EDT Nurse Only Ancillary Department, [place] [address] [facility] [address] [place], Nurse [facility] [address] [facility] [id number] Scheduled Procedures Name Priority Associated Diagnoses Date/Ti [...] D LEVEL ONCE IN A LIFETIME-USE SMARTSET# [id number] Completed 11/21/2021, 06/06/2020, 02/16/2020, Additional history exists [...] as of this encounter Visit Diagnoses Diagnosis Cellulitis- Primary Cellulitis and abscess of unspecified site Lumbar radiculopathy Thoracic or lumbosacral neuritis or radiculitis, unspecified documented in this encounter Administered Medications Inactive Administered Medications - up to 3 most recent administrations Medication Order MAR Action Action Date Dose Rate Site cefTRIAXone (Rocephin) inj 1 g 1 g, Intramuscular, ONCE, On 10/27/23 at 1130, For 1 dose Given 10/27/2023 11:07 AM EDT 1 g Dorsogluteal Left documented in this encounter Advance Directives Documents on File Type Date Recorded Patient Office Mover Expl anation Advance Directives and Living Will 09/26/2023 signed on 08/22/2023 ADVANCE DIRECTIVE / LIVING WILL Power of Medication Assistant 09/26/2023 signed on 08/22/2023 POWER OF FLYING SQUAD SALESPERSON HEALTH CARE Healthcare Agents on File Name Relationship Healthcare Agent Relationship Communication Erica Woodside Other - (no specific identity) Health Care Office Mover (appointed verbally by patient or by statute hierarchy) Care Teams Chief Jailer Relationship Specialty Start Date End Date Lavern Gomez DO [address] [place], [place] [id number] PCP - General Family Medicine 10/27/22 documented as of this encounter
--- OUTSIDE RECORDS SUMMARY | 2023-10-31 09:59 | External Medical Summary | Summary of Care ---
Author Name Unknown Organization [facility] Address [address] [place] [address] Phone [phone] Care Team Providers Care Oncology Transplant Network Manager Name Role Phone Lavern Gomez Primary Care Provider Reason for Visit * Reason Onset Date Comments Appointment 10/24/2023 Encounter Details Date Type Department Care Team (Late st Contact Info) Description 10/24/2023 Telephone Oral Maxillofacial Surgery, [place] [address] [place] [address] Services, [facility] [address] [place] [address] Appointment Allergies Active Allergy Reactions Criticality Noted Date [...] as of this encounter (statuses as of 10/25/2023) Medications Medication Sig Dispensed Refills Start Date [...] as of this encounter (statuses as of 10/25/2023) Active Problems Problem Noted Date Diagnosed Date [...] colon with perforation 023 Overview: Admission to [facility] 10/28. Last Assessment & Plan: Stable. 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 roofing technician Major depressive disorder, recurrent, mild 04/30 Last [...] this will have to come through PCP, [facility] does not participate in chronic [...] as of this encounter (statuses as of 10/25/2023) Resolved Problems Problem Noted Date Diagnosed Date [...] and infarction 04/30/2018 03/03/2019 Acquired hypothyroidism 04/07/2018 10/2 03/2018 Localized edema 06/18/2017 03/03/2019 Malaise and [...] as of this encounter (statuses as of 10/25/2023) Immunizations Name Administration Dates Next Due COVID-19 mRNA, LNP-s, No Pre serve, 2-Dose Series ([employer]) 07/07/2021,10/04/2020,09/07/2020 Hepatitis B, 20+ yrs 11/05/2004,07/08/1995 PPD 01/25/2008 Pneumococcal Conjugate Vacc, 13 Valent (Prevnar) 06/10/2015 Pneumococcal Conjugate Vacci ne, 20-valent ([id number]) 06/06/2023 Pneumococcal Polysaccharide PPV23 (Pneumovax) 06/07/2019,12/26/2007 Seasonal [...] encounter Miscellaneous Notes * Telephone Encounter - AnsKoki ogden OSA - 10/25/2023 1:58 PM EDT Date & Time 10/31/2023 10:30 AM Provider Gus Andrews DDS, MD [facility] Left message with d/t/l and number to confirm and message was sent MY G * Telephone Encounter - Cassie Domingo OSA - 10/24/2023 3:55 PM EDT Pt seen by [facility] dentist for clearance for surgery. Dentist recommends she have all her remaining teeth and root tips extracted, she also needs evaluated for buccal mucosa soft palate and tongue as she presented with non-tender white lesions primarily on her right side. Once her surgery date is scheduled they would need to see her back 4-6 weeks prior to take 3D impressions for the interim dentures Pt has extensive medical history (attached), she was orginally referred to Dr. Camp[place] in [place] however due to her medical history they want her seen in a hosptial setting [facility] to schedule appt [phone] documented in this encounter Plan of Treatment Upcoming Encounters Date Type Department Care Team (Late st Contact Info) Description 10/25/2023 2:30 PM EDT Home Visit [facility] [address] [place] [address] Sonja Robledo, RN [address] [place] [address] 10/26/2023 2:00 PM EDT Home Visit [facility] [address] [place] [address] [facility], Nurse [facility] [address] [place] [address] 10/27/2023 3:00 PM EDT Scheduled Telephone [facility], [facility] [address] [place] [address] [facility], Nurse [facility] [address] [place] [address] 10/28/2023 5:45 PM EDT Anticoagulation Pharmacy Call Center WB [address] [facility] [place] [address] Ccps, [facility] [address] [place] [address] 10/30/2023 1:00 PM EDT [facility] [place] [address] [place] [address] 2, Psychology Group [address] [place] [address] 10/31/2023 10:30 AM EDT Office Visit Oral Maxillofacial Surgery, [place] [address] [place] [address] Gus Andrews DDS, MD [address] [place] [address] 11/05/2023 2:00 PM EDT Office Visit [place] [address] [place] [phone] Mark Carr MD [address] [place] [address] 11/06/2023 11:20 AM EDT Hospital Encounter OR [facility], Operating Room [facility] [address] [place] [address] Jeffery Rodríguez DO [address] [place] [phone] 11/06/2023 11:20 AM EDT - 11/06/2023 11:45 AM EDT Surgery OR [facility], Operating Room [facility] [address] [place] [phone] Jeffery Rodríguez DO [address] [place] [phone] INJECTION SPINE LUMBAR OR [facility] 11/06/2023 1:00 PM EDT Telemedicine [address] [address], Psychology Group [address] [place] [address] 11/06/2023 2:30 PM EDT Home Visit [facility], [facility] [address] [facility] [place] [address] Sonja Robledo RN [address] [place] [address] 11/13/2023 1:00 PM EDT Telemedicine [address] [address] 2, Psychology Group [address] [place] [address] 11/20/2023 1:00 PM EDT Telemedicine [address] [address] 2, Psychology Group [address] [place] [address] 11/27/2023 1:00 PM EDT Telemedicine [address] [address] 2, Psychology Group [address] [place] [address] 12/04/2023 1:00 PM EDT Telemedicine [address] [address] 2, Psychology Group [address] [place] [address] 12/11/2023 1:00 PM EDT Telemedicine Psychology, [place] [address] [place] [address] 2, Psychology Group [address] [place] [address] 12/18/2023 11:20 AM EDT Office Visit [facility], [place] [address] [place] [address] Debbie Otero PA-C [address] [place] [address] 12/31/2023 11:00 AM EDT Office Visit Cardiology, [facility] 132 [facility] [place] [address] Patricia Knott CRNP 132 [facility] [place] [address] 01/22/2024 11:40 AM EDT Office Visit [facility], [place] [address] [facility], [place] [address] Debbie Otero PA-C [address] [place] [address] 03/31/2024 11:00 AM EDT Laboratory Laboratory, [place] [address] [place] [address] [facility] [address] [place] [address] 04/07/2024 2:00 PM EDT Office Visit Hematology/Oncology [facility] [place] [address] [facility] [phone] Hanane Enamorado CRNP [address] [facility] [place] [address] 05/05/2024 10:00 AM EDT Nurse Only Ancillary Department, [place] [address] [facility] [place] [address] [place], Nurse [facility] [address] [place] [address] Scheduled Procedures Name Priority Associated Diagnoses Date/Ti [...] D LEVEL ONCE IN A LIFETIME-USE SMARTSET# [id number] Completed 11/21/2021, 06/06/2020, 02/16/2020, Additional history exists [...] Documents on File Type Date Recorded Patient Boat Dock Operator Expl anation Advance Directives and Living Will 09/26/2023 signed on 08/22/2023 ADVANCE DIRECTIVE / LIVING WILL Power of Junior Technical Writer 09/26/2023 signed on 08/22/2023 POWER OF PATTERNMAKER PR[facility]URE [facility] Healthcare Agents on File Name Relationship Healthcare Agent Relationship Communication Erica Nunes Other - (no specific identity) Health Care Boat Dock Operator (appointed verbally by patient or by statute hierarchy) Care Teams Oncology Transplant Network Manager Relationship Specialty Start Date End Date Lavern Gomez DO [address] [place] [address] PCP - General Family Medicine 10/27/22 documented as of this encounter
--- OUTSIDE RECORDS SUMMARY | 2023-10-31 09:59 | External Medical Summary | Summary of Care ---
Author Name Unknown Organization [facility] Address [address] [place] [address] Phone [phone] Care Team Providers Care Electrician Outside Name Role Phone Lavern Gomez Butch BERNARD Primary Care Provider [phone] Reason for Visit * Reason Comments Dosage Adjustment Via Phone (anticoag Cl inic) Encounter Details Date Type Department Care Team (Latest Contact Info) Description 10/24/2023 5:45 PM EDT Anticoagulation Pharmacy Call Center 58-60 Public [place] [address] [facility] 58 60 Public [facility] [address] Superficial vein thrombosis* Allergies Active Allergy Reactions [...] as of this encounter (statuses as of 10/24/2023) Medications Medication Sig Dispensed Refills Start Date [...] as of this encounter (statuses as of 10/24/2023) Active Problems Problem Noted Date Diagnosed Date [...] -Continue Invanz until 11/19/22 with ID at [facility] -Encouraged hydration Lymphedema 09/07/2022 Aneurysm of ascending [...] 05/07/2018 Last Assessment & Plan: 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 Major depressive disorder, recurrent, mild 04/30 [...] this will have to come through PCP, [facility] does not participate in chronic pain [...] as of this encounter (statuses as of 10/24/2023) Resolved Problems Problem Noted Date Diagnosed Date [...] as of this encounter (statuses as of 10/24/2023) Immunizations Name Administration Dates Next Due COVID-19 mRNA, LNP-s, No Pre serve, 2-Dose Series (legalPAD) 07/07/2021,10/04/2020,09/07/2020 Hepatitis B, 20+ yrs 11/05/2004,07/08/1995 PPD 01/25/2008 Pneumococcal Conjugate Vacc, 13 Valent (Prevnar) 06/10/2015 Pneumococcal Conjugate Vacci ne, 20-valent ([id number]) 06/06/2023 Pneumococcal Polysaccharide PPV23 (Pneumovax) 06/07/2019,12/26/2007 Seasonal [...] Progress Notes * Cintia Doe RPh - 10/24/2023 2:21 PM EDT Medication Therapy Disease Management - Anticoagulation Patient: Bonnie Oneal | : 1950 [facility] Patient Anticoagulation Encounter Patient is a resident at: [facility] -- Fax sent to number listed above detailing plan of care below. Please notify clinic with any unusual brusing or bleeding, N/V/D, medication or diet changes or anymissed or extra doses of Coumadin. Subjective Patient-Reported Symptoms: Objective Current Warfarin Dose As of 10/24/2023 Warfarin maintenance plan: 4 mg (2 mg x 2) every Tue, Kelsey; 6 mg (2 mg x 3) all other days INR Result As of 10/24/2023 INR goal: 2.0-3.0 INR used for dosing: No new INR was available at the time of this encounter. Assessment & Plan Warfarin Plan As of 10/24/2023 Full warfarin instructions: 4 mg every Tue, Kelsey; 6 mg all other days Next INR check: 10/28/2023 Repeat PT/INR in 4 day(s) Weekly dose: not changed Additional Dosing Information: Description 11/06/23 - pain procedure -- hold warfarin x5 days and bridge Cintia Doe RPh Clinical Pharmacist 10/24/2023, 2:21 PM * Sara Roberts hay buckler - 10/24/2023 1:45 PM EDT Pts INR was not drawn today. Phlebotomy will be there again on 10/27, please send new orders to drawthen. Thank you, Sara Roberts Bottom Pounder [employer] [facility] ([facility] (formerly [facility]) [phone] 10/24/2023,1:46 PM documented in this encounter Plan of Treatment Upcoming Encounters Date Type Department Care Team (Late st Contact Info) Description 10/24/2023 4:00 PM EDT [facility], [facility] [address] [place] [address] Sonja Robledo, RN [address] [place] [address] 10/26/2023 11:30 AM EDT Scheduled Telephone [facility], [facility] [address] [place] [address] [facility], Nurse [facility] [address] [place] [address] 10/28/2023 5:45 PM EDT [facility] Call Center 58-60 [facility] [place] [address] [facility] 58 60 [facility] [place] [address] 10/30/2023 1:00 PM EDT Telemedicine [facility] [address] [place] [address] 2, Psychology Group [address] [place] [address] 11/05/2023 2:00 PM EDT Office Visit [facility] [address] [place] [address] Mark Carr MD [address] [place] [address] 11/06/2023 11:20 AM EDT Hospital Encounter OR [facility], Operating Room [facility] [address] [place] [phone] Jeffery Rodríguez DO 132 [place] [phone] 11/06/2023 11:20 AM EDT - 11/06/2023 11:45 AM EDT Surgery OR [facility], Operating Room [facility] 132 [facility] [place] [phone] Jeffery Rodríguez DO 132 [place] [address] INJECTION SPINE LUMBAR OR SACRAL 11/06/2023 1:00 PM EDT Telemedicine [address] [address] 2, Psychology Group [address] [place] [address] 11/06/2023 2:30 PM EDT Home Visit [facility], [facility] 132 [facility] [place] [address] Sonja Robledo RN 132 [place] [address] 11/13/2023 1:00 PM EDT Telemedicine [address] [address] 2, Psychology Group [address] [place] [address] 11/20/2023 1:00 PM EDT Telemedicine [address] [address] 2, Psychology Group [address] [place] [address] 11/27/2023 1:00 PM EDT Telemedicine [address] [address] 2, Psychology Group [address] [place] [address] 12/04/2023 1:00 PM EDT Telemedicine [address] [address] 2, Psychology Group [address] [place] [facility] [place] [address] 12/11/2023 1:00 PM EDT Telemedicine [place] [address] [place] [address] 2, Psychology Group [address] [place] [facility] [address] 12/18/2023 11:20 AM EDT Office Visit [facility], [place] [address] [place] [address] Debbie Otero PA-C [address] [place] [address] 12/31/2023 11:00 AM EDT Office Visit Cardiology, [facility] [address] [facility] [place] [address] Patricia Knott CRNP [facility] [place] [address] 01/22/2024 11:40 AM EDT Office Visit [facility], [place] [address] [place] [address] Debbie Otero PA-C [address] [place] [address] 03/31/2024 11:00 AM EDT Laboratory Laboratory, [place] [address] [place] [address] [place] [address] [place] [address] 04/07/2024 2:00 PM EDT Office Visit Hematology/Oncolog y Shannan Au Hendrix [address] [place] [address] Hanane Enamorado CRNP [address] [place] [address] 05/05/2024 10:00 AM EDT Nurse Only Ancillary Department, [place] [address] [facility] [address] [place], Nurse Annual [facility]ness [address] [facility] [address] Scheduled Procedures Name Priority Associated Diagnoses Date/Ti [...] D LEVEL ONCE IN A LIFETIME-USE SMARTSET# 30736 Completed 11/21/2021, 06/06/2020, 02/16/2020, Additional history exists [...] Documents on File Type Date Recorded Patient Review Specialist Expl anation Advance Directives and Living Will 09/26/2023 signed on 08/22/2023 ADVANCE DIRECTIVE / LIVING WILL Power of Associate Embalmer/Funeral Director 09/26/2023 signed on 08/22/2023 POWER [facility] Healthcare Agents on File Name Relationship Healthcare Agent Relationship Communication Erica Nunes Other - (no specific identity) Health Care Review Specialist (appointed verbally by patient or by statute hierarchy) Care Teams Electrician Outside Relationship Specialty Start Date End Date Lavern Gomez DO [address] [facility] [place] [address] PCP - General Family Medicine 10/27/22 documented as of this encounter
--- OUTSIDE RECORDS SUMMARY | 2023-10-31 09:59 | External Medical Summary | Summary of Care ---
Author Name Unknown Organization [facility] Address [address] [place] [address] Phone [phone] Care Team Providers Care Circuit Rider Name Role Phone Lavern Gomez Primary Care Provider [phone] Encounter Details Date Type Department Care Team (Late st Contact Info) Description 10/24/2023 Telephone Oral Maxillofacial Surgery, [place] [address] [place] [address] Services, [facility] [address] [place] [address] Allergies Active Allergy Reactions Criticality Noted Date [...] colon with perforation 023 Overview: Admission to [facility] 10/28. Last Assessment & Plan: Stable. 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 Major depressive disorder, recurrent, mild 04/30 Last [...] this will have to come through PCP, [facility] does not participate in chronic pain [...] and infarction 04/30/2018 03/03/2019 Acquired hypothyroidism 04/07/2018 102 03/2018 Localized edema 06/18/2017 03/03/2019 Malaise and [...] mRNA, LNP-s, No Pre serve, 2-Dose Series ([employer]) 07/07/2021,10/04/2020,09/07/2020 Hepatitis B, 20+ yrs 11/05/2004,07/08/1995 PPD 01/25/2008 Pneumococcal Conjugate Vacc, 13 Valent (Prevnar) 06/10/2015 Pneumococcal Conjugate Vacci ne, 20-valent ([id number]) 06/06/2023 Pneumococcal Polysaccharide PPV23 (Pneumovax) 06/07/2019,12/26/2007 Seasonal [...] encounter Miscellaneous Notes * Telephone Encounter - Cassie Domingo OSA - 10/24/2023 3:55 PM EDT Pt seen by [facility] dentist for clearance for surgery. Dentist recommends [...] was orginally referred to Dr. [place] in [place] however due to her medical history they want her seen in a hosptial setting Claudette Magallon ([facility]) to schedule appt [phone] documented in this encounter Plan of Treatment Upcoming Encounters Date Type Department Care Team (Late st Contact Info) Description 10/24/2023 5:45 PM EDT Anticoagulation Pharmacy Call Center [address] [place] [address] [place] [address] [address] [place] [address] Superficial vein thrombosis* 10/26/2023 11:30 AM EDT Scheduled Telephone [facility] [address] [facility], Nurse [address] [address] 10/28/2023 5:45 PM EDT Anticoagulation Pharmacy Call Center 5860 [facility] [place] [address] [place] [address] 60 [place] [address] 10/30/2023 1:00 PM EDT Telemedicine [address] [address] 2, Psychology Group [address] [place] [address] 11/05/2023 2:00 PM EDT Office Visit [facility] [address] [facility] [place] [phone] Mark Carr MD [address] [place] [facility] [place] [address] 11/06/2023 11:20 AM EDT Hospital Encounter OR [facility], Operating Room [facility] [address] [place] [phone] Jeffery Rodríguez, [address] [place] [address] 11/06/2023 11:20 AM EDT - 11/06/2023 11:45 AM EDT Surgery OR [facility], Operating Room [facility] [address] [place] [phone] Jeffery Rodríguez, DO [address] [place] [address] INJECTION SPINE LUMBAR OR SACRAL 11/06/2023 1:00 PM EDT Telemedicine [address] [address] 2, Psychology Group [address] [place] [address] 11/06/2023 2:30 PM EDT Home Visit [facility] [address] [place] [address] Sonja Robledo, RN [address] [place] [address] 11/13/2023 1:00 PM EDT Telemedicine [address] [address] 2, Psychology Group [address] [place] [address] 11/20/2023 1:00 PM EDT Telemedicine [address] [address] 2, Psychology Group [address] [place] [address] 11/27/2023 1:00 PM EDT Telemedicine [address] [address] 2, Psychology Group [address] [place] [address] 12/04/2023 1:00 PM EDT Telemedicine [address] [address] 2, Psychology Group [address] [place] [address] 12/11/2023 1:00 PM EDT Telemedicine [address] [address] 2, Psychology Group [address] [place] [address] 12/18/2023 11:20 AM EDT Office Visit [address] [phone] Debbie Otero PA-C [address] [place] [address] 12/31/2023 11:00 AM EDT Office Visit Cardiology, [facility] [address] [facility] [place] [address] Patricia Knott CRNP [address] [place] [address] 01/22/2024 11:40 AM EDT Office Visit [address] [phone] Debbie Otero PA-C [address] [facility] [phone] 03/31/2024 11:00 AM EDT Laboratory Laboratory, [place] [address] [facility] [phone] [place], Laboratory [address] [facility] [phone] 04/07/2024 2:00 PM EDT Office Visit Hematology/Oncolog y [facility] [place] [address] [place] [address] Hanane Enamorado CRNP [address] [place] [address] 05/05/2024 10:00 AM EDT Nurse Only Ancillary Department, [place] [address] [facility] [phone] [place], Nurse Annual Wellness [address] [facility] [phone] Scheduled Procedures Name Priority Associated Diagnoses Date/Ti [...] 08/30/2022, Additional history exists GFR 08/15/2024 08/15/2023, 020 07/2023, 08/01/2023, Additional history exists Lipid Panel 09/05/2025 09/05/2020, 06/08, 05/05/2018, Additional history exists Albumin/Creatinine Ratio 03/06/2026 023, 10/17/2021, 06/19/2017 DTaP,Tdap,and Td Vaccines (3 - Td or Tdap) 06/27/2030 06/27/2020, 06/01/2013, 04/02/2008, Additional history exists Diabetic Eye Exam Discontinued 11/02/2014, , 11/02/2014, Additional history exists Zoster Vaccines Completed 01/01/2019, 07/10, 06/05/2012 VITAMIN D LEVEL ONCE IN A LIFETIME-USE SMARTSET# 61349 Completed 11/21/2021, 06/06/2020, 02/16/2020, Additional history exists [...] Documents on File Type Date Recorded Patient Sign Language Interpreter Expl anation Advance Directives and Living Will 09/26/2023 signed on 08/22/2023 ADVANCE DIRECTIVE / LIVING WILL Power of Tube Cleaner 09/26/2023 signed on 08/22/2023 POWER OF [facility] Healthcare Agents on File Name Relationship Healthcare Agent Relationship Communication Erica Nunes Other - (no specific identity) Health Care Sign Language Interpreter (appointed verbally by patient or by statute hierarchy) Care Teams Circuit Rider Relationship Specialty Start Date End Date Lavern Gomez DO [address] [place] [address] PCP - General Family Medicine 10/27/22 documented as of this encounter
--- OUTSIDE RECORDS SUMMARY | 2023-10-31 09:59 | External Medical Summary | Summary of Care ---
Author Name Unknown Organization [facility] Address [address] [place] [address] Phone [phone] Care Team Providers Care Joint Maker Machine Name Role Phone Lavern Gomez Primary Care Provider [phone] Encounter Details Date Type Department Care Team (Late st Contact Info) Description 10/24/2023 Result Scan Unspecified Department <No scans attached> Allergies Active Allergy Reactions [...] colon with perforation 023 Overview: Admission to [facility] 10/28. Last Assessment & Plan: Stable. 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 Surveillance. Mild persistent asthma without complication 06/08 Last Assessment & Plan: Stable Continue Robb Lobo p.r.n., Sylvain Restless legs syndrome Last Assessment & [...] mRNA, LNP-s, No Pre serve, 2-Dose Series ([employer]) 07/07/2021,10/04/2020,09/07/2020 Hepatitis B, 20+ yrs 11/05/2004,07/08/1995 PPD 01/25/2008 Pneumococcal Conjugate Vacc, 13 Valent (Prevnar) 06/10/2015 Pneumococcal Conjugate Vacci ne, 20-valent ([id number]) 06/06/2023 Pneumococcal Polysaccharide PPV23 (Pneumovax) 06/07/2019,12/26/2007 Seasonal [...] Description 10/25/2023 2:30 PM EDT Home Visit [facility] at Home, [address] [place] [address] Sonja Robledo, RN [address] [place] [address] 10/26/2023 11:30 AM EDT Scheduled Telephone [facility], [facility] [address] [place] [address] [facility], Nurse [facility] [address] [place] [address] 10/28/2023 5:45 PM EDT [facility] Pharm[facility] Call Center 58-60 [facility] [place] [address] [facility] 58 60 [facility] [place] [address] 10/30/2023 1:00 PM EDT [facility] [address] [place] [address] 2, Psychology Group [address] [place] [address] 11/05/2023 2:00 PM EDT Office Visit [place] [address] [place] [address] Mark Carr MD [address] [place] [address] 11/06/2023 11:20 AM EDT Hospital Encounter OR [facility], Operating Room [facility] [address] [place] [phone] Jeffery Rodríguez DO [address] [place] [phone] 11/06/2023 11:20 AM EDT - 11/06/2023 11:45 AM EDT Surgery OR [facility], Operating Room O[facility] [address] [place] [phone] Jeffery Rodríguez DO [address] [place] [address] INJECTION SPINE LUMBAR OR SACRAL 11/06/2023 1:00 PM EDT Telemedicine [address] [address] 2, Psychology Group [address] [place] [address] 11/06/2023 2:30 PM EDT [facility], [facility] [address] [place] [address] Sonja Robledo RN [address] [place] [address] 11/13/2023 1:00 PM EDT Telemedicine [address] [address] 2, Psychology Group [address] [place] [address] 11/20/2023 1:00 PM EDT Telemedicine [address] [address] 2, Psychology Group [address] [place] [address] 11/27/2023 1:00 PM EDT Telemedicine [address] [address] 2, Psychology Group [address] [place] [address] 12/04/2023 1:00 PM EDT Telemedicine [address] [address] 2, Psychology Group [address] [place] [address] 12/11/2023 1:00 PM EDT Telemedicine [address] [address] 2, Psychology Group 100 [facility] [place] [address] 12/18/2023 11:20 AM EDT Office Visit [facility], [place] [address] [place] [address] Debbie Otero PA-C [address] [place] [address] 12/31/2023 11:00 AM EDT Office Visit Cardiology, [facility] [address] [facility] [address] Patricia [facility]nott [facility] [place] [address] 01/22/2024 11:40 AM EDT Office Visit [facility], [place] [address] [address] [facility] [place] [address] Debbie Otero PA-C [address] [place], [place] [address] 03/31/2024 11:00 AM EDT Laboratory Laboratory, [address] [place] [address] [place] [facility] [address] [place] [address] 04/07/2024 2:00 PM EDT Office Visit Hematology/Oncolog y [facility] [place] [address] [place] [address] Hanane Enamorado CRNP [address] [place] [address] 05/05/2024 10:00 AM EDT Nurse Only Ancillary Department, [place] [address] [address] [place] [address] [place], Nurse Annual Wellness [address] [place] [address] [address] Scheduled Procedures Name Priority Associated Diagnoses Date/Ti [...] 08/30/2022, Additional history exists GFR 08/15/2024 08/15/2023, 0207/2023, 08/01/2023, Additional history exists Lipid Panel 09/05/2025 09/05/2020, 06/08, 05/05/2018, Additional history exists Albumin/Creatinine Ratio 03/06/2026 023, 10/17/2021, 06/19/2017 DTaP,Tdap,and Td Vaccines (3 - Td or Tdap) 06/27/2030 06/27/2020, 06/01/2013, 04/02/2008, Additional history exists Diabetic Eye Exam Discontinued 11/02/2014, , 11/02/2014, Additional history exists Zoster Vaccines Completed 01/01/2019, 07/10, 06/05/2012 VITAMIN D LEVEL ONCE IN A LIFETIME-USE SMARTSET# [id number] Completed 11/21/2021, 06/06/2020, 02/16/2020, Additional history exists [...] Date/Time Associated Diagnosis Comments OUTSIDE LAB RESULTS 10/24/2023 documented in this encounter Results * OUTSIDE LAB RESULTS (10/24/2023) 10/24/2023 No Physician Data Unknown LABORATORY documented in this encounter Advance Directives Documents on File Type Date Recorded Patient Snapper On Expl anation Advance Directives and Living Will 09/26/2023 signed on 08/22/2023 ADVANCE DIRECTIVE / LIVING WILL Power of Medical Services Coordinator 09/26/2023 signed on 08/22/2023 POWER OF [facility] Healthcare Agents on File Name Relationship Healthcare Agent Relationship Communication Erica Nunes Other - (no specific identity) Health Care Snapper On (appointed verbally by patient or by statute hierarchy) Care Teams Joint Maker Machine Relationship Specialty Start Date End Date Lavern Gomez DO [address], [place] [phone] PCP - General Family Medicine 10/27/22 documented as of this encounter
--- OUTSIDE RECORDS SUMMARY | 2023-10-31 09:59 | External Medical Summary | Summary of Care ---
Author Name Unknown Organization [facility] Address [address] [place] [address] Phone [phone] Care Team Providers Care Mini Shifter Name Role Phone Lavern Gomez Primary Care Provider [phone] Reason for Visit * Reason Comments [facility]: Acute Encounter Details Date Type Department Care Team (Late st Contact Info) Description 10/26/2023 2:00 PM EDT [facility] Visit [facility], [facility] [address] [place] [address] [facility], Nurse [facility] [address] [place] [address] Allergies Active Allergy Reactions Criticality Noted Date [...] colon with perforation 023 Overview: Admission to [facility] 10/28. Last Assessment & Plan: Stable. 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 [facility] Bus DriverSite Supervising Technical Operator Visit Date: 10/26/2023 Time: 12:30 PM Name: [...] one week Patient Needs to Remember: Call [facility] at with any new or worsening health concerns or problems, red flag symptoms. Referrals Needed: none Follow Up: Is there cellular connectivity/connectivity in the home? Yes Does the patient have internet in the home? Yes Patient encouraged to call the intake phone number for all urgent but not emergent issues. Is the patient new to [facility] within the last 30 days? No, Assess appropriateness for upcoming telehealth visits. Cancel telehealth visits & schedule home visit with care hat steamer(s)as indicated. Provider is in agreement with Plan of Care: Yes Scheduled to follow up with patient in 1 day. Dara Kumar RN 10/26/2023 8:52 AM documented in this encounter Plan of Treatment Upcoming Encounters Date Type Department Care Team (Late st Contact Info) Description 10/27/2023 10:00 AM EDT Home Visit [facility] [place], [facility] 132 [facility] [place] [address] [facility], Nurse [address] [place] [address] 10/28/2023 5:45 PM EDT Anticoagulation Pharmacy Call Center WB 58[address]60 [facility] [place] [address] [facility], [facility] 58 60 [facility] [place] [address] 10/30/2023 1:00 PM EDT Telemedicine Psychology, [place] [address] [place] [address] 2, Psychology Group [facility] [place] [address] 10/31/2023 10:30 AM EDT Office Visit Oral Maxillofacial Surgery, [place] [address] [place] [address] Gus Andrews DDS, [address] [place] [address] 11/05/2023 2:00 PM EDT Office Visit [place] [address] [place] [address] Mark Carr MD [address] [place] [address] 11/06/2023 11:20 AM EDT Hospital Encounter OR [facility], Operating Room [facility] [address] [place] [phone] Jeffery Rodríguez, DO [address] [place] [phone] 11/06/2023 11:20 AM EDT - 11/06/2023 11:45 AM EDT Surgery OR [facility], Operating Room [facility] [address] [place] [phone] Jeffery Rodríguez, DO [address] [place] [phone] INJECTION SPINE LUMBAR OR SACRAL 11/06/2023 1:00 PM EDT Telemedicine Psychology[address] [address] 2, Psychology Group [address] [place] [address] 11/06/2023 2:30 PM EDT [facility] 132 [place] [address] Sonja Robledo RN 132 [place] [address] 11/13/2023 1:00 PM EDT Telemedicine [address] [address] 2, Psychology Group [address] [place] [address] 11/20/2023 1:00 PM EDT Telemedicine [address] [address] 2, Psychology Group [address] [place] [address] 11/27/2023 1:00 PM EDT Telemedicine Psychology[address] [address] 2, Psychology Group [address] [place] [address] 12/04/2023 1:00 PM EDT Telemedicine Psychology[address] [address] 2, Psychology Group [address] [place] [address] 12/11/2023 1:00 PM EDT Telemedicine Psychology[address] [address] 2, Psychology Group [address] [place] [address] 12/18/2023 11:20 AM EDT Office Visit [facility] [address] [facility], [place] [phone] Debbie Otero PA-C [address] [facility] [place] [phone] 12/31/2023 11:00 AM EDT Office Visit Cardiology, [facility] [address] [facility] [address] Patricia Knott CRNP [facility] [place] [address] 01/22/2024 11:40 AM EDT [facility] Visit [facility] [place] [address] [facility] [phone] Debbie Otero PA-C [address] [facility] [id number] 03/31/2024 11:00 AM EDT Laboratory Laboratory, [place] [address] [facility] [phone] [place], Laboratory [address] [facility], [place] [id number] 04/07/2024 2:00 PM EDT Office Visit Hematology/Oncology [facility] [phone] Hanane Enamorado CRNP [address] [place] [address] 05/05/2024 10:00 AM EDT Nurse Only Ancillary Department, [place] [address] [facility] [address] [place]to Nurse [facility] [address] [facility] [address] Scheduled Procedures Name Priority Associated Diagnoses Date/Ti [...] D LEVEL ONCE IN A LIFETIME-USE SMARTSET# [id number] Completed 11/21/2021, 06/06/2020, 02/16/2020, Additional history exists [...] Documents on File Type Date Recorded 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 anation Advance Directives and Living Will 09/26/2023 signed on 08/22/2023 ADVANCE DIRECTIVE / LIVING WILL Power of Automobile Dealer 09/26/2023 signed on 08/22/2023 POWER OF MONORAIL CHARGER OPERATOR HEALTH CARE Healthcare Agents on File Name Relationship Healthcare Agent Relationship Communication Erica Nunes Other - (no specific identity) Health Care Fine Arts Teacher (appointed verbally by patient or by statute hierarchy) Care Teams Mini Shifter Relationship Specialty Start Date End Date Lavern Gomez DO [address] [place], [place] [phone] PCP - General Family Medicine 10/27/22 documented as of this encounter
--- OUTSIDE RECORDS SUMMARY | 2023-10-31 09:59 | External Medical Summary | Summary of Care ---
Author Name Unknown Organization [facility] Address [address] [place] [address] Phone [phone] Care Team Providers Care Spinning Doffer Name Role Phone Lavern Gomez Primary Care Provider [phone] Reason for Referral * Evaluate & Treat - Unlimited Visits (Within 3 days (urgent)) - Authorized Specialty Diagnoses / Procedures Referred By Glenn brady Referred To Contact Oral/Maxillofacial Surgery / Oral Maxillary Surgery Diagnoses Dental caries Axel Merchant DMD [address] [place] [id number] Referral ID Status Reason Start Date Expiration Date Visits Requested Visits Authorized [id number] Authorized Specialty Services Required 10/24/2023 999 999 Question Answer Referral Priority Within 3 days (urgent) Where should this appointment be scheduled? [facility] Reason for Referral Oral or Facial Lesion Order as Urgent The referral reason that you have chosen necessitates placing this order as URGENT Encounter Details Date Type Department Care Team (Late st Contact Info) Description 10/24/2023 Orders Only Access [address] Ext *DO NOT REMOVE THIS DEPARTMENT* [place] [address] Request, External Referral Dental caries* Allergies Active Allergy Reactions Criticality Noted Date [...] colon with perforation 023 Overview: Admission to [facility] 10/28. Last Assessment & Plan: Stable. Still having diarrhea -Continue Invanz until 11/19/22 with [place] at [facility] [place]Encouraged hydration Lymphedema 09/07/2022 Aneurysm of ascending [...] 05/07/2018 Last Assessment & Plan: Followed by sanipractic physician Major depressive disorder, recurrent, mild 04/30 Last [...] this will have to come through PCP, [facility] does not participate in chronic pain [...] left hand 04/09/201711/05 BMI 40.0-44.9, adult 03/20/2017 10/29/2 018 Secondary hyperparathyroidism, non-renal 03/20/2017 07/09/2023 Last [...] mRNA, LNP-s, No Pre serve, 2-Dose Series ([employer]oro[employer]arma) 07/07/2021,10/04/2020,09/07/2020 Hepatitis B, 20+ yrs 11/05/2004,07/08/1995 PPD 01/25/2008 Pneumococcal Conjugate Vacc, 13 Valent (Prevnar) 06/10/2015 Pneumococcal Conjugate Vacci ne, 20-valent ([id number]) 06/06/2023 Pneumococcal Polysaccharide PPV23 (Pneumovax) 06/07/2019,12/26/2007 Seasonal [...] 4:00 PM EDT Home Visit [facility] [place] [address] [place] [address] Sonja Robledo RN 132 [facility] [place] [address] 10/24/2023 5:45 PM EDT Anticoagulation Pharmacy Call Center 58-60 [facility] [place] [address] [facility] 58 60 [facility] [place] [address] 10/26/2023 11:30 AM EDT Scheduled Telephone [facility] [place], [facility] [address] [place] [address] [facility], Nurse [facility] [address] [place] [address] 10/30/2023 1:00 PM EDT Telemedicine Psychology, [facility] [address] [place] [facility] [place] [address] 2, Psychology Group [address] [place] [address] 11/05/2023 2:00 PM EDT Office Visit [address] [place] [address] Mark Carr MD [address] [place] [address] 11/06/2023 11:20 AM EDT Hospital Encounter OR [facility], Operating Room [facility] [address] [place] [phone] Jeffery Rodríguez, [address] [place] [phone] 11/06/2023 11:20 AM EDT - 11/06/2023 11:45 AM EDT Surgery OR [facility], Operating Room [facility] [address] [place] [phone] Jeffery Rodríguez, DO [address] [place] [phone] INJECTION SPINE LUMBAR OR SACRAL 11/06/2023 1:00 PM EDT Telemedicine [address] [address] 2, Psychology Group [address] [place] [address] 11/06/2023 2:30 PM EDT Home Visit [facility] [address] [place] [address] Sonja Robledo, RN [address] [place] [address] 11/13/2023 1:00 PM EDT Telemedicine [address] [address] 2, Psychology Group [address] [place] [address] 11/20/2023 1:00 PM EDT Telemedicine [address] [place] [address] 2, Psychology Group [address] [place] [address] 11/27/2023 1:00 PM EDT Telemedicine [address] [address] 2, Psychology Group [address] [place] [address] 12/04/2023 1:00 PM EDT Telemedicine Psychology[address] [address], Psychology Group [address] [place] [address] 12/11/2023 1:00 PM EDT Telemedicine Psychology[address] [address] 2, Psychology Group [address] [place] [address] 12/18/2023 11:20 AM EDT Office Visit [facility], [address] [phone] Debbie Otero PA-C [address] [place] [address] 12/31/2023 11:00 AM EDT Office Visit Cardiology, [facility] 132 [facility] [place] [address] Patricia Knott CRNP [facility] [place] [address] 01/22/2024 11:40 AM EDT Office Visit [facility], [place] [address] [place] [address] Debbie Otero PA-C [address] [place], [place] [phone] 03/31/2024 11:00 AM EDT Laboratory Laboratory, [place] [address] [facility] [phone] [place], Laboratory [address] [facility] [address] 04/07/2024 2:00 PM EDT Office Visit Hematology/Oncolog y [facility] [place] [address] [place], [place] [phone] Hanane Enamorado CRNP [address] [place] [address] 05/05/2024 10:00 AM EDT Nurse Only Ancillary Department, [place] [address] [facility] [address] [place], Nurse [facility] Well[facility] [address] [facility] [address] Scheduled Procedures Name Priority Associated Diagnoses Date/Ti me INJECTION SPINE LUMBAR OR SACRAL Lumbar radiculopathy 11/06/2023 11:20 AM EDT Scheduled Referrals Name Type Priority Associated Diagnoses Order Schedule ORAL & MAXILLOFACIAL SURGERY REFERRAL OP Referral Within 3 days (urgent) Dental caries Ordered: 10/24/2023 Health Maintenance Due Date Last Done Comments [...] D LEVEL ONCE IN A LIFETIME-USE SMARTSET# [id number] Completed 11/21/2021, 06/06/2020, 02/16/2020, Additional history exists [...] as of this encounter Visit Diagnoses Diagnosis Dental caries- Primary Unspecified dental caries Lumbar radiculopathy Thoracic or lumbosacral neuritis or radiculitis, unspecified documented in this encounter Advance Directives Documents on File Type Date Recorded 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 Machine Operator 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 anation Advance Directives and Living Will 09/26/2023 signed on 08/22/2023 ADVANCE DIRECTIVE / LIVING WILL Power of Manager Training 09/26/2023 signed on 08/22/2023 POWER OF REGISTERED NURSE HEALTH CARE Healthcare Agents on File Name Relationship Healthcare Agent Relationship Communication Erica Fangbridge Other - (no specific identity) Health Care Nylon Machine Operator (appointed verbally by patient or by statute hierarchy) Care Teams Spinning Doffer Relationship Specialty Start Date End Date Lavern Gomez DO [address] [facility] [address] PCP - General Family Medicine 10/27/22 documented as of this encounter
--- OUTSIDE RECORDS SUMMARY | 2023-10-31 10:00 | External Medical Summary | Summary of Care ---
Author Name Unknown Organization [facility] Address [address] [place] [address] Phone [phone] Care Team Providers Care Near East Archeology Professor Name Role Phone Lavern Gomez Primary Care Provider [phone] Reason for Visit * Reason Onset Date Comments [facility]: Acute 10/24/2023 Encounter Details Date Type Department Care Team (Late st Contact Info) Description 10/24/2023 Telephone [facility], [facility] [address] [place] [address] [facility], Nurse [facility] [address] [place] [address] [facility]: Acute Allergies Active Allergy Reactions Criticality Noted Date [...] with perforation 023 Overview: Admission to [facility] 10/28. Last Assessment & Plan: Stable. 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 Major depressive disorder, recurrent, mild 04/30 Last [...] this will have to come through PCP, [facility] does not participate in chronic [...] mRNA, LNP-s, No Pre serve, 2-Dose Series ([employer]) 07/07/2021,10/04/2020,09/07/2020 Hepatitis B, 20+ yrs 11/05/2004,07/08/1995 PPD 01/25/2008 Pneumococcal Conjugate Vacc, 13 Valent (Prevnar) 06/10/2015 Pneumococcal Conjugate Vacci ne, 20-valent ([id number]) 06/06/2023 Pneumococcal Polysaccharide PPV23 (Pneumovax) 06/07/2019,12/26/2007 Seasonal [...] encounter Miscellaneous Notes * Telephone Encounter - Lori Sanchez RN - 10/24/2023 12:23 PM EDT TT message sent to [facility] RNCM's and providers Sonja Robledo RNCM on care team, will see patient today at 4pm RN asked if [facility] would approve Rocephin being given IM instead of IV as patient is a very difficult stick for IV's. TT ,message sent to [facility] regarding same Patient called and aware Maryse Sanchez RN, BSN [facility] Intake Triage Coordinator [phone] * Telephone Encounter - Rashawn Corwe MD - 10/24/2023 11:55 AM EDT Recommend acute RN visit today Anticipate iv rocephin; might be needed several days to try to avoid ED/admission for cellulitis not responding to oral keflex * Telephone Encounter - Lori Sanchez RN - 10/24/2023 10:26 AM EDT Images from the original note were not included. 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 Urine still concentrated, + odor. Denied burning, no fever, no Low back or pelvic area pain Biggest issue is that her LE's are very swollen and painful. Feel very tight. Rt > Left No indentation when pushed with thumb. + Redness in feet up to about mid calf Weeping at times Had lluvia wraps on, but not using them because they are painful and seem to dig into legs. Also very hard for her to put them on. Has them elevated "some" during the day. At night they are up because chairs leans her all the way back and legs a little higher then head Does not weigh herself, got new scale but has not gotten it set up yet Taking her Torsemide 40 mg in AM Discussed fluid vs Cellulitis . Let us know if urinary symptoms are not resolved at completion of current antbx. 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 H/O gastric bypass Z98.84 BRANDIE on CPAP G47.33 Gastroparesis K31.84 Thyroid nodule E04.1 Gastroesophageal reflux disease without esophagitis K21.9 Senile osteoporosis M81.0 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 Major depressive disorder, recurrent, mild (HCC) F33.0 Chronic diastolic (congestive) heart failure (HCC) 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 Paroxysmal supraventricular tachycardia (HCC) I47.10 Gait abnormality R26.9 Superficial vein thrombosis I82.890 Hypercoagulopathy (HCC) D68.59 Intermittent asthma with reliever use up to twice per week with acute exacerbation J45.21 Hx of melanoma in situ Z86.006 Lipedema R60.9 PTSD (post-traumatic stress disorder) F43.10 Hypertensive heart disease with chronic diastolic congestive heart failure (HCC) I11.0, I50.32 Closed Hill-Sachs fracture of right humerus S42.291A Chronic pain syndrome G89.4 History of pulmonary embolism Z86.711 Iron deficiency anemia D50.9 Aneurysm of ascending aorta without rupture (HCC) I71.21 Acute pyelonephritis N10 Lymphedema I89.0 Diverticulitis of colon with perforation K57.20 Lower extremity edema R60.0 Opioid dependence, uncomplicated (HCC) F11.20 Personality disorder, unspecified (HCC) F60.9 Atrial fibrillation (HCC) I48.91 Parkinson's disease (HCC) G20.A1 Shoulder arthritis M19.019 Nontraumatic complete tear of right rotator cuff M75.121 Nontraumatic complete tear of left rotator cuff M75.122 Nursing Assessment: Patient's chief complaint for this call: Edema and Pain of LE's Pain Has pain Pain level: 9 Location: Lower extremities Quality of Pain: tight, burning, stabbing Does the pain radiate: No Baseline Assessment Able to performing ADLs at baseline (walking, daily tasks, etc.): No Chief Complaint is related to a chronic condition: Yes Chronic Condition: cellulitis Chief Complaint is a change in baseline: No Patient prescribed oxygen? No Patient has been ordered DME equipment (assistive devices, respiratory equipment, etc.): No Medication Reconciliation: Received flu shot this season: Yes Taking medication as ordered: Yes Medications ordered/taking to treat reason for call: No Heart failure symptoms: No COPD exacerbation symptoms: No Reinforcement Education: Apply lluvia wraps daily as ordered. Have staff assist if needed Elevated legs when seated to at least hip level Take all medications as ordered. Weight self daily once new scale is set up. Ask for assistance if needed to stay steadily on scale and avoid fall. Routed to care team provider Treatment/Plan: Level of call: Acute Appointment scheduled for same day: No Provider Name: NA Follow up call set Maryse Sanchez RN, BSN [facility] Intake Triage Coordinator [phone] Call back instructions provided to patient. documented in this encounter Plan of Treatment Upcoming Encounters Date Type Department Care Team (Late st Contact Info) Description 10/24/2023 4:00 PM EDT Home Visit [facility] [address] [place] [address] Sonja Robledo RN [address] [place] [address] 10/24/2023 5:45 PM EDT [facility] Call Center [address] [place] [address] [facility], [facility] [address] [facility] [place] [address] 10/26/2023 11:30 AM EDT Scheduled Telephone [facility], [facility] [address] [place] [address] [facility] Nurse [facility] [address] [place] [address] 10/30/2023 1:00 PM EDT Telemedicine Psychology, [address] [address] , Psychology [place] [address] [place] [address] 11/05/2023 2:00 PM EDT Office Visit [facility] [address] [place] [address] Mark Carr MD [address] [place] [address] 11/06/2023 11:20 AM EDT Hospital Encounter OR [facility], Operating Room [facility] [address] [place] [phone] Jeffery Rodríguez, DO [address] [place] [phone] 11/06/2023 11:20 AM EDT - 11/06/2023 11:45 AM EDT Surgery OR [facility], Operating Room [facility] [address] [address] [phone] Jeffery Rodríguez, DO [address] [place] [phone] INJECTION SPINE LUMBAR OR [facility] 11/06/2023 1:00 PM EDT Telemedicine Psychology[address] [address], Psychology Group [address] [place] [address] 11/06/2023 2:30 PM EDT [facility] [address] [place] [address] Sonja Robledo RN [address] [place] [address] 11/13/2023 1:00 PM EDT Telemedicine [address] [address], Psychology Group [address] [place] [address] 11/20/2023 1:00 PM EDT Telemedicine Psychology[address] [address], Psychology Group [address] [place] [address] 11/27/2023 1:00 PM EDT Telemedicine [address] [address], Psychology Group [address] [place] [address] 12/04/2023 1:00 PM EDT Telemedicine Psychology[address] [address], Psychology Group [address] [place] [address] 12/11/2023 1:00 PM EDT Telemedicine [address] [address], Psychology Group [address] [place] [address] 12/18/2023 11:20 AM EDT Office Visit [facility], [place] [address] [facility], [place] [phone] Debbie Otero PA-C [address] [facility], [place] [address] 12/31/2023 11:00 AM EDT Office Visit Cardiology, [facility] [place] [address] Patricia Knott CRNP [facility] [place] [address] 01/22/2024 11:40 AM EDT Office Visit [facility], [place] [address] [facility] [phone] Debbie Otero PA-C [address] [facility], [place] [address] 03/31/2024 11:00 AM EDT Laboratory Laboratory, [place] [address] [facility] [phone] [place], Laboratory [address] [facility], [place] [address] 04/07/2024 2:00 PM EDT Office Visit Hematology/Oncolog y [facility] [address] [facility], [place] [phone] Hanane Enamorado CRNP [address] [place] [address] 05/05/2024 10:00 AM EDT Nurse Only Ancillary Department, [place] [address] [facility] [address] [place], Nurse [facility] [address] [facility], [place] [address] Scheduled Procedures Name Priority Associated Diagnoses Date/Ti [...] D LEVEL ONCE IN A LIFETIME-USE SMARTSET# [id number] Completed 11/21/2021, 06/06/2020, 02/16/2020, Additional history exists [...] Documents on File Type Date Recorded Patient Enterprise Account Manager Expl anation Advance Directives and Living Will 09/26/2023 signed on 08/22/2023 ADVANCE DIRECTIVE / LIVING WILL Power of Financial Services Associate 09/26/2023 signed on 08/22/2023 POWER OF PLATING MACHINE OPERATOR HEALTH CARE Healthcare Agents on File Name Relationship Healthcare Agent Relationship Communication Erica Nunes Other - (no specific identity) Health Care Enterprise Account Manager (appointed verbally by patient or by statute hierarchy) Care Teams Near [place] Archeology Professor Relationship Specialty Start Date End Date Lavern Gomez DO [address] [place] [address] PCP - General Family Medicine 10/27/22 documented as of this encounter
[2023-10-31] MEDS: OPTIRAY 320 100ml IV ONE (11:56)
--- NOTE | 2023-10-31 13:06 | Hospitalist Progress Note ---
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 Oneal is a 72-year-old woman who has significant past medical history of chronic diastolic CHF, history of PSVT, HTN, thoracic aortic aneurysm, Edenilson- Danlos syndrome, secondary hyperparathyroidism, hypothyroidism, hyperlipidemia, BRANDIE on CPAP, asthma, vitamin D deficiency, GERD, history of diverticulitis with colon perforation, RLS, fibromyalgia, chronic pain syndrome, hypercoagulability, history of gastric bypass, depression, history of PTSD, history of PE who presented to ED for worsening leg swelling and admitted for concern for sepsis. Reviewed OP notes were is was noted that the leg swelling is a chronic concern "Seen in clinic a month ago, lower legs were red and flaky with no open areas. Notes that they have gotten more swollen, have been weeping and are more painful" as per visit on 10/[address] Brock OP clinic visit. Has been trying to follow with OMFS as she is suppose to undergo extraction of her teeth due to hopeful shoulder replacement/repair. She notes the left side is much more painful and swollen than usual. Seems last follow up with Cardiology in 06/2023.--during that visit weight was noted to be 75.2 Kg and discharge weight from 07/2023 at 71 kg. Given review, presentation seems to be exacerbated by heart failure with areas that appear to be superficial cellulitis, in addition to possible dental infection. Discussed case with Dr. Mcqueen, who will eval patient on 10/31--if patient can be optimized, he will pursue extraction given her complexity would require OR regardless. #Sepsis, multifactorial #Chronic lymphedema with superimposed cellulitis #Periapical abscess Meet sepsis criteria by leukocytosis, tachycardia, as well as presumed sources of infecion ER afebrile, P: 105, R: 18, BP 95/66, 98% on room air. WBC: 15, lactate: 1.3, procalcitonin: 1.8. UA unremarkable. CXR without infiltrate. Blood cultures NGTD, s/p CTX and Daptomycin in ED In ER given 1L NSS, Rocephin, daptomycin cautious volume resuscitation on admission given hx of HF Zosyn, daptomycin -Will discontinue Dapto upon result of MRSA NARE Monitor on telemetry #Atrial fibrillation with RVR #History of PSVT On warfarin for AC Metoprolol was ordered daily, rates remain elevated, will increase home tatrate to BID pending further card recommendations #Acute on Chronic Hear Failure with preserved EF Home torsemide held, initial concern for continued diuersis on admission given ill presentation; however, exam of lower extremities reveals profound edema, which is more likely 2/2 heart failure exacerbated by the skin weeping/tears resulting in overlying cellulitis. Profoundly pitting edema, with dusky discoloration Too tender to touch for ABIs exacerbation supported by BNP of 1099 -Hold PO torsemide 40mg daily Start lasix IV 40 daily Cardiology consult for optimization as OMFS will be consulted for potential dental extraction during this admission #Elevated troponin, likely demand iso RVR and heart failure exacerbation Elevated troponin: 51--> 52.9--> 32.5 #Left facial swelling and tenderness #Poor dentition #Hematoma of anterior plate Followed Dr. Mcqueen 09/25 who recommends removal of all fractured/infected teeth. Per notes: "following teeth are decayed and fractured and removal is indicated SHANTELL:4,5,6,8,9,11,12,20,22,23,24,26,30--14 teeth" CT facial bones given swelling to assess degree of infection based upon visible swelling -Will follow up on results, contact Dr. Mcqueen and hold warfain--transition to heparin drip when INR <2 #Chronic Hypotension #History of POTS Increased midodrine to 5mg TID #Prior PE/DVT #Protein C deficiency #Supratherapeutic INR, improved INR: 4.0, now 2.9 -Plan for heparin when INR <2.0, given plan for possible OFMS given notable swelling of left face #Parkinson Disease #RLS Continue ropinirole, carbidopa levodopa States uses rollator at baseline PT/OT eval #BRANDIE CPAP as tolerated. Patient states uses intermittently #Acute on Chronic Anemia #Prior gastric bypass history of KASSANDRA, drop from 10 on admission to 8.4, no apparent signs of bleed Hgb: 10.7. 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 Patient given IV Tylenol and 1 oxycodone in ER continue buprenorphine patch/oxy, lidocaine #Ascending thoracic aortic aneurysm measuring 5.1 cm, s -Reportedly stable, noted on ECHO #Hypothyroid TSH 0.49 Continue synthroid #PTSD #Anxiety Continue mirtazpine and hydroxyzine prn DVT Prophylaxis Currently supratherapeutic INR, monitor INR Full code as per discussion with pt Currently resides at [facility] Follows with Dr Lavern Gomez for routine care Admission and Anticipated Discharge Date Admission Date: October 30, 2023 Subjective Patient tearful at bedside Irritated by her teeth and her legs. states she lives in [facility] now, difficult to keep patient on topic as she states we "take everything from her" She denies any new concerns--but lists all of her ongoing medical issues and frustrations Physical Exam Constitutional: tearful and agitated ENMT: poor dentition, left facial swelling Respiratory: normal respiratory effort, lungs clear to auscultation Cardiovascular: irregularly irregular Skin: bilateral violaceous, edematous with blistering on shins Results & Data Results & Data Vital Signs (Past 12 Hours) Vital Signs Temp Pulse Pulse Resp BP Pulse Ox O2 Del Method 10/31/23 12:16 36.5 C 109 H 16 114/77 99 Nasal Cannula 10/31/23 08:00 131 H 10/31/23 07:33 Nasal Cannula 10/31/23 05:48 36.9 C 99 H 18 84/52 L 99 Nasal Cannula 10/31/23 01:13 36.9 C 114 H 18 96/70 L 98 Nasal Cannula O2 Flow Rate 10/31/23 12:16 2 10/31/23 08:00 10/31/23 07:33 2 10/31/23 05:48 4 10/31/23 01:13 4 Laboratory Results Short CBC 10/30/23 10/31/23 Range/Units 14:52 07:17 WBC 15.19 H 9.61 (4.8-10.8) K/ul Hgb 10.7 L 8.4 L (12.0-16.0) g/dl Hct 34.4 L 27.0 L (37.0-47.0) % Plt Count 250 198 (130-400) K/uL BMP 10/30/23 10/31/23 14:52 07:17 Sodium 137 139 Potassium 3.9 3.7 Chloride 103 110 H Carbon Dioxide 28 25 BUN 36 H 30 H Creatinine 0.98 0.76 Glucose 108 H 120 H Calcium 8.8 8.3 L Liver Function 10/30/23 10/31/23 Range/Units 14:52 07:17 Total Bilirubin 0.8 0.6 (0.2-1.0) mg/dl Direct Bilirubin 0.2 (0-0.2) mg/dl AST 15 14 (13-39) U/L ALT 3 L 4 L (7-52) U/L Alkaline Phosphatase 155 H 109 H (34-104) U/L Albumin 3.8 2.7 L (3.4-5.0) gm/dl Urine 10/30/23 Range/Units 18:02 Urine Color Yellow Urine Appearance Clear (Clear) Urine pH 5.5 (4.5-7.5) Ur Specific [place] 1.021 (1.000-1.030) Urine Protein Trace H (Negative) Urine Glucose (UA) Negative (Negative) Diagnostic Findings Face CT 10/31/23 10:31 CT facial bones wo/w con CT DOSE: CLINICAL HISTORY: periapical abscess? left facial swelling TECHNIQUE: Multiaxial CT images of the facial bones were performed both before and after the intravenous administration of contrast. Sagittal and coronal reformations were also obtained. A dose lowering technique was utilized adhering to the principles of ALARA. COMPARISON STUDY: None. FINDINGS: Suboptimal evaluation within and surrounding the oral cavity due to the dental artifact. No significant soft tissue swelling within the face. No loculated fluid collections to suggest an abscess. No soft tissue masses identified. The visualized brain parenchyma and orbits are unremarkable. The pterygopalatine fossa is maintained. The prevertebral soft tissues and the epiglottis are normal in thickness. The parotid and submandibular glands are symmetric. No upper cervical lymphadenopathy identified. The major cervical vessels appear patent. No acute fractures identified. The paranasal sinuses and mastoid air cells are clear. Multiple dental caries are seen within the residual teeth. There is a 3 mm periapical lucency at ADA 27 demonstrating focal cortical breakthrough at the buccal surface. This is best seen on axial image 95. No adjacent abscess identified. IMPRESSION: 1. There is a 3 mm periapical lucency at ADA 27 demonstrating focal cortical breakthrough at the buccal surface. 2. However, no soft tissue abscess identified. 3. Multiple dental caries seen within the residual teeth. ACT 112: Negative or not required by law. Electronically signed by: Tavares Jaramillo M.D. 10/31/2023 1:57 PM Medications Administered Home Medications Medication Instructions Recorded Confirmed Last Taken atorvastatin 20 mg tablet 20 mg PO .@79901/09/22 10/30/23 12/10/22 buprenorphine 15 mcg/hour weekly 1 patch topical WK 01/09/22 10/30/23 10/24/23 transdermal patch carbidopa 25 mg-levodopa 100 mg 1 tab PO .0800,1200,1600,199901/09/22 10/30/23 10/30/23 tablet fluticasone propionate 50 2 spray intranasal .@799,199901/09/22 10/30/23 12/10/22 mcg/actuation nasal spray,suspension (Flonase Allergy Relief) hydroxyzine HCl 25 mg tablet 25 mg PO QID PRN ANXIETY/ITCHING 01/09/22 10/30/23 Unknown levothyroxine 50 mcg tablet 50 mcg PO .@79901/09/22 10/30/23 12/10/22 montelukast 10 mg tablet 10 mg PO .@199901/09/22 10/30/23 12/09/22 Saccharomyces boulardii 250 mg 250 mg PO .@799,199910/03/22 10/30/23 12/10/22 08:00 capsule (Florastor) warfarin 4 mg tablet 4 mg PO UD 10/03/22 10/30/23 12/09/22 acetaminophen 500 mg tablet 1,000 mg PO Q8H PRN TEMP >100F/PAIN 12/10/22 10/30/23 Unknown (Tylenol Extra Strength) loperamide 2 mg tablet 2 mg PO Q6H PRN Diarrhea 12/10/22 10/30/23 Unknown metoprolol tartrate 25 mg tablet 25 mg PO .@79912/10/22 10/30/23 12/10/22 mirtazapine 30 mg tablet 30 mg PO .@199912/10/22 10/30/23 12/09/22 ergocalciferol (vitamin D2) 25,000 50,000 unit PO .WED@79903/07/23 10/30/23 Unknown unit capsule omeprazole 20 mg tablet,delayed 40 mg PO .@79907/29/23 10/30/23 Unknown release ropinirole 5 mg tablet 2.5 mg PO .@08,1499,199907/29/23 10/30/23 Unknown torsemide 20 mg tablet 40 mg PO .@79907/29/23 10/30/23 Unknown warfarin 6 mg tablet 6 mg PO UD 07/29/23 10/30/23 Unknown potassium chloride 20 mEq oral 20 meq PO DAILY #30 ea 07/31/23 10/30/23 Unknown packet cephalexin 500 mg capsule 500 mg PO BID 10/30/23 10/30/23 Unknown midodrine 2.5 mg tablet 3.75 mg PO TID 10/30/23 10/30/23 Unknown Active Medications Generic Name Dose Route Start Last Admin Trade Name Freq PRN Reason Stop Dose Admin Acetaminophen 1,000 mg 10/31/23 01:00 10/31/23 08:23 Acetaminophen 500 Mg Tab PO 11/30/23 00:59 1,000 mg Q8H ASHUTOSH Administration Atorvastatin Calcium 20 mg 10/30/23 21:15 10/31/23 08:13 Atorvastatin 20 Mg Tab PO 11/29/23 21:14 20 mg DAILY@0800 ASHUTOSH Administration Buprenorphine HCl 3 patch 10/31/23 09:00 10/31/23 13:23 Buprenorphine 5 Mcg/Hr Tdsy TD 11/30/23 08:59 3 patch Th@0900 ASHUTOSH Administration Carbidopa/Levodopa 1 tab 10/30/23 21:15 10/31/23 15:49 Carbidopa/Levodopa 25/100mg Tab PO 11/29/23 21:14 1 tab 0800,1199,1599,1999 ASHUTOSH Administration Fluticasone Propionate 2 sprays 10/30/23 21:15 10/31/23 08:13 Fluticasone Propionate Na Spr 16 Gm Btl ELYSE 11/29/23 21:14 2 sprays BID@08,1999 ASHUTOSH Administration Daptomycin 250 mg/ Syringe 5 mls @ 2.5 mls/min 10/31/23 15:00 10/31/23 15:47 IV 11/07/23 14:59 2.5 mls/min Q24H ASHUTOSH Administration Protocol Piperacillin Sod/Tazobactam 100 mls @ 25 mls/hr 10/31/23 03:00 10/31/23 14:10 Sod 4.5 gm/ Dextrose IV 11/07/23 02:59 Infused Q8H ASHUTOSH Infusion Protocol Levothyroxine Sodium 50 mcg 10/31/23 06:30 10/31/23 09:47 Levothyroxine Sodium 50 Mcg Tablet PO 11/30/23 06:29 50 mcg DAILYBB ASHUTOSH Administration Mirtazapine 30 mg 10/30/23 21:15 10/31/23 00:34 Mirtazapine Tab 15 Mg Tab PO 11/29/23 21:14 30 mg DAILY@1999 ASHUTOSH Administration Miscellaneous 1 each 10/31/23 08:00 10/31/23 09:49 Check Buprenorphine Patch N/A 11/30/23 07:59 1 each QS ASHUTOSH Administration Miscellaneous 1 each 10/31/23 08:59 10/31/23 08:15 Remove & Waste Butrans Patch 1 Ea Ea N/A 11/30/23 08:58 1 each Th@0859 ASHUTOSH Administration Montelukast Sodium 10 mg 10/30/23 21:15 10/30/23 22:15 Montelukast Sodium 10 Mg Tablet PO 11/29/23 21:14 10 mg DAILY@1999 ASHUTOSH Administration Pantoprazole Sodium 40 mg 10/31/23 08:00 10/31/23 09:48 Pantoprazole 40 Mg Tab PO 11/30/23 07:59 40 mg DAILY@08 ASHUTOSH Administration Ropinirole HCl 2.5 mg 10/30/23 21:15 10/31/23 15:47 Ropinirole Hcl 1 Mg Tablet PO 11/29/23 21:14 2.5 mg TID@799, ASHUTOSH Administration Saccharomyces Boulardii 250 mg 10/30/23 21:15 10/31/23 08:13 Saccharomyces Boulardii 250 Mg Cap PO 11/29/23 21:14 250 mg DAILY@ ASHUTOSH Administration (13) Hypothyroidism Hypothyroidism type: acquired Qualified Code(s): E03.9 - Hypothyroidism, unspecified
[2023-10-31] MEDS: BUPRENORPHINE 5 MCG/HR TDSY TD SCH (13:23)
--- NOTE | 2023-10-31 13:58 | CT Scan Report ---
CT facial bones wo/w con CT DOSE: CLINICAL HISTORY: periapical abscess? left facial swelling TECHNIQUE: Multiaxial CT images of the facial bones were performed both before and after the intraven ous administration of contrast. Sagittal and coronal reformations were also obtained. A dose lowerin g technique was utilized adhering to the principles of ALARA. COMPARISON STUDY: None. FINDINGS: Suboptimal evaluation within and surrounding the oral cavity due to the dental artifact. No significant soft tissue swelling within the face. No loculated fluid collections to suggest an absce ss. No soft tissue masses identified. The visualized brain parenchyma and orbits are unremarkable. Th e pterygopalatine fossa is maintained. The prevertebral soft tissues and the epiglottis are normal in thickness. The parotid and submandibular glands are symmetric. No upper cervical lymphadenopathy amelie ntified. The major cervical vessels appear patent. No acute fractures identified. The paranasal sinus es and mastoid air cells are clear. Multiple dental caries are seen within the residual teeth. There is a 3 mm periapical lucency at ADA 27 demonstrating focal cortical breakthrough at the buccal surfac e. This is best seen on axial image 95. No adjacent abscess identified. IMPRESSION: 1. There is a 3 mm periapical lucency at ADA 27 demonstrating focal cortical breakthrough at the bucc al surface. 2. However, no soft tissue abscess identified. 3. Multiple dental caries seen within the residual teeth. ACT 112: Negative or not required by law. Electronically signed by: Tavares Jaramillo M.D. 10/31/2023 1:57 PM
--- NOTE | 2023-10-31 15:42 | Electrocardiogram Report ---
Test Reason : Blood Pressure : / mmHG Vent. Rate : 121 BPM Atrial Rate : 000 BPM P-R Int : 000 ms QRS Dur : 110 ms QT Int : 316 ms P-R-T Axes : 000 -02 022 degrees QTc Int : 448 ms Atrial fibrillation with rapid ventricular response Incomplete right bundle branch block Abnormal ECG When compared with ECG of 29-JUL-2023 04:46, Atrial fibrillation has replaced Sinus rhythm Vent. rate has increased BY 44 BPM Incomplete right bundle branch block is now Present Confirmed by Kaveh Carter ([id number]) on 10/31/2023 3:41:38 PM Referred By: [facility] Confirmed By:Kaveh Carter
[2023-10-31] MEDS: DAPTOmycin 250 MG in SYRINGE 0 ML IV SCH (15:47)
--- NOTE | 2023-10-31 15:49 | Electrocardiogram Report ---
Test Reason : Blood Pressure : / mmHG Vent. Rate : 110 BPM Atrial Rate : 056 BPM P-R Int : 000 ms QRS Dur : 120 ms QT Int : 352 ms P-R-T Axes : 000 -17 016 degrees QTc Int : 476 ms Atrial fibrillation with rapid ventricular response Right bundle branch block Abnormal ECG When compared with ECG of 30-OCT-2023 17:14, (unconfirmed) No significant change was found Confirmed by Kaveh Carter ([id number]) on 10/31/2023 3:48:57 PM Referred By: [facility] Confirmed By:Kaveh Carter
[2023-10-31] MEDS: FUROSEMIDE 40 MG/4 ML VIAL IV SCH (16:46)
--- NOTE | 2023-10-31 17:42 | Cardiology Consultation ---
Date of Consultation October 31, 2023 Assessment & Plan (1) Cellulitis: (2) Paroxysmal atrial fibrillation: (3) Preoperative cardiovascular examination: Plan Patient with poor dentition, hematoma of the anterior plate. Coumadin on hold with INR of 2.9, trending down without having been 4 yesterday. Patient with complicated volume status receiving 2 IV antibiotics as well as furosemide as indicated at present. Continue current dose of midodrine although I think it would be reasonable to consider titrating to 7.5 or even 10 mg 3 times daily as tolerated this admission. Patient on chronic anticoagulation due to history of venous thromboembolism. Atrial fibrillation is a new diagnosis. Ventricular rates at around 105 bpm while resting supine, became tachycardic with minimal upright exertion upwards of 150 bpm. Resume metoprolol. Dose limited due to relative hypotension. I would recommend going back to the short acting metoprolol and administering a low-dose more frequently, metoprolol tartrate 12.5 mg 4 times daily with hold for heart rate less than 60 and systolic blood pressure less than 95 mm Hg. If vital signs remain similar, I think she would tolerate oral surgery when INR allows. I would however avoid administering vitamin K in the absence of puneet gical emergency given atrial fibrillation and VTE history and allow her INR to come down spontaneously. History of Present Illness Attending Physician: Annie Jha MD History of Present Illness Bonnie Oneal is a 73-year-old female seen in cardiology consultation per the request of Dr. Jha for the evaluation of atrial fibrillation with rapid ventricular rate and optimization prior to proposed dental extraction. Patient admitted via the emergency room yesterday due to concerns of bilateral lower extremity edema and cellulitis. She has been found to be in atrial fibrillation with rapid ventricular response which appears to be a new diagnosis for her. She had been found to have poor dentition and facial swelling and dental extraction tentatively planned. [facility] with history of chronic heart failure with preserved ejection fraction. Per review of her outpatient chart, she is treated with torsemide 20 mg, 2 tablets daily in the morning. At time of most recent cardiology follow-up visit in June, she was felt to be euvolemic. Most recent contrast-enhanced CT of the chest performed March, with maximum dimension of ascending aorta of 4.9 cm at that time. Cardiac Problems: 1. Ascending thoracic aortic aneurysm measuring 5.1 cm, stable for many years. 2. Protein C deficiency on chronic Lovenox, followed by Hematology. 3. Obesity status post gastric bypass surgery with resultant malabsorption. 4. History of vasovagal syncope. 5. Fibromyalgia. 6. Paroxysmal supraventricular tachycardia. 7. Chronic low back pain. 8. History of pulmonary embolism. 9. Vascular Edenilson-Danlos syndrome aka "VEDS" Allergies Allergy/AdvReac Type Severity Reaction Status Date / Time ammonia Allergy Severe FACE, Verified 09/26/23 10:47 LIPS, TONGUE EDEMA buspirone Allergy Severe NEURO Verified 09/26/23 10:47 COMPLICATIONS duloxetine Allergy Intermediate RASH Verified 09/26/23 10:47 ITCHING adhesive Allergy Mild skin tears Verified 09/26/23 10:47 vancomycin Allergy Unknown ON [facility] Verified 09/26/23 10:47 MED LIST diphenhydramine AdvReac Intermediate RESTLESS Verified 09/26/23 10:47 LEGS gabapentin AdvReac Intermediate MUSCLE Verified 09/26/23 10:47 STIFFNESS lisinopril AdvReac Intermediate cough Verified 09/26/23 10:47 NSAIDS (Non-Steroidal AdvReac Unknown not Verified 09/26/23 10:47 Anti-Inflamma supposed to use-S/P GASTRIC BYPASS venlafaxine AdvReac Unknown AFFECTS Verified 09/26/23 10:47 LEGS Home Medications Medication Instructions Recorded Confirmed Type atorvastatin 20 mg tablet 20 mg PO .@0801/09/22 10/30/23 History buprenorphine 15 mcg/hour weekly 1 patch topical WK 01/09/22 10/30/23 History transdermal patch carbidopa 25 mg-levodopa 100 mg 1 tab PO .0800,1200,1600,199901/09/22 10/30/23 History tablet fluticasone propionate 50 2 spray intranasal .@799,199901/09/22 10/30/23 History mcg/actuation nasal spray,suspension (Flonase Allergy Relief) hydroxyzine HCl 25 mg tablet 25 mg PO QID PRN ANXIETY/ITCHING 01/09/22 10/30/23 History levothyroxine 50 mcg tablet 50 mcg PO .@79901/09/22 10/30/23 History montelukast 10 mg tablet 10 mg PO .@199901/09/22 10/30/23 History Saccharomyces boulardii 250 mg 250 mg PO .@08,199910/03/22 10/30/23 History capsule (Florastor) warfarin 4 mg tablet 4 mg PO UD 10/03/22 10/30/23 History acetaminophen 500 mg tablet 1,000 mg PO Q8H PRN TEMP >100F/PAIN 12/10/22 10/30/23 History (Tylenol Extra Strength) loperamide 2 mg tablet 2 mg PO Q6H PRN Diarrhea 12/10/22 10/30/23 History metoprolol tartrate 25 mg tablet 25 mg PO .@79912/10/22 10/30/23 History mirtazapine 30 mg tablet 30 mg PO .@199912/10/22 10/30/23 History ergocalciferol (vitamin D2) 25,000 50,000 unit PO .WED@79903/07/23 10/30/23 History unit capsule omeprazole 20 mg tablet,delayed 40 mg PO .@79907/29/23 10/30/23 History release ropinirole 5 mg tablet 2.5 mg PO .@0800,1500,199907/29/23 10/30/23 History torsemide 20 mg tablet 40 mg PO .@0807/29/23 10/30/23 History warfarin 6 mg tablet 6 mg PO UD 07/29/23 10/30/23 History potassium chloride 20 mEq oral 20 meq PO DAILY #30 ea 07/31/23 10/30/23 Rx packet cephalexin 500 mg capsule 500 mg PO BID 10/30/23 10/30/23 History midodrine 2.5 mg tablet 3.75 mg PO TID 10/30/23 10/30/23 History Patient History Medical History (Updated 10/31/23 @ 19:05 by Rashawn Hirsch DO) Elevated troponin Hx of blood clots Thyroid disease Skin cancer Head injury Recurrent falls Parkinson disease Acute kidney injury Acute exacerbation of chronic low back pain Opioid dependence Fibromyalgia Abdominal hernia Coagulopathy Hypokalemia Weakness Anemia History of DVT (deep vein thrombosis) chronic anticoagulation Protein C deficiency Dysphagia History of colon polyps Difficult intravenous access History of intestinal obstruction Bulging of intervertebral disc Osteoporosis Osteoarthritis Renal cyst History of colon polyps Gastroparesis Thyroid nodule Hearing deficit ADHD Peripheral neuropathy Tachycardia Hyperlipidemia Claustrophobia Sleep apnea intermittently able to tolerate CPAP Asthma uses PRN INH 3-4 x wk GERD (gastroesophageal reflux disease) Hypothyroidism Restless leg syndrome Edenilson-Danlos syndrome Pulmonary embolism 07/2018 - treated w/ lovenox - unk etiology Thoracic aortic aneurysm follows w/ Dr. Arredondo - evaluated within last 6 mo ISAC (generalized anxiety disorder) Surgical History Hx of melanoma excision shoulder Self extubation attempted post gastric bypass History of laparotomy History of left knee replacement History of intestinal surgery History of right knee joint replacement History of arthroscopy of left knee History of abdominoplasty + hernia repair History of bilateral breast reduction surgery History of cholecystectomy History of tonsillectomy History of gastric bypass History of esophagogastroduodenoscopy (EGD) History of colonoscopy 2019 Status post biopsy of thyroid gland benign S/P hysterectomy Family History Uncle Stomach cancer Cancer Family/Other Breast cancer Grandfather Cancer Mother Heart disease Hypertension Stroke Grandmother Heart disease Stroke Other No family history of adverse response to anesthesia No pertinent family history in first degree relatives Social History Smoking Status: Never smoker Second Hand Exposure: Yes; Do You Dip or Chew Tobacco: No; Tobacco Cessation Education Requested by Patient: No Hx Alcohol Use: Yes Alcohol type: wine and hard liquor Hx Substance Use: No Preferred Language: Polish Communication Ability: Effective Communication Ability Comment: pt is obtunded Visual Impairment: Limited Hearing Ability: Normal Social Work Therapist Required: No Beliefs That Will Affect Care: None marital status: Single Current Living Situation: Alone and Personal Care Facility Current Living Situation Comment: Condo - First Floor, able to specify name of Apartment Complex. current occupational status: retired How many Children do You have: 0 Other Information That Helps Us Care for You: No Feels Safe at Home: Yes Safety Concerns: Feels Safe At This Time Diet: regular during the past year weight has: remained stable Assistive Devices: Walker Review of Systems Review of Systems: All systems reviewed & are unremarkable except as noted in HPI & below Physical Exam Constitutional: + ill appearing (Chronically ill in appe arance) and + obese; no acute distress ENMT: Mouth: + poor dentition and + loose teeth Respiratory: no cough Cardiovascular: Rate/Rhythm: + irregularly irregular Heart Sounds: no murmur Extremities: + edema (2+ lower extremity edema, with erythema of the lower legs) Gastrointestinal (Abdomen): normal bowel sounds, soft, nontender, no hepatosplenomegaly Neurologic: PERRL, EOMI, accommodation nl, no face palsy, no dysarthria Results & Data Vital Signs (Past 12 Hours) Vital Signs Temp Pulse Pulse Resp BP Pulse Ox O2 Del Method 10/31/23 15:29 36.6 C 100 H 16 95/68 L 97 Nasal Cannula 10/31/23 12:16 36.5 C 109 H 16 114/77 99 Nasal Cannula 10/31/23 08:00 131 H 10/31/23 07:33 Nasal Cannula 10/31/23 05:48 36.9 C 99 H 18 84/52 L 99 Nasal Cannula O2 Flow Rate 10/31/23 15:29 2 10/31/23 12:16 2 10/31/23 08:00 10/31/23 07:33 2 10/31/23 05:48 4 Laboratory Results Cardiac Enzymes 10/30/23 10/30/23 10/30/23 Range/Units 14:52 17:32 23:47 AST (13-39) U/L Troponin I High Sens 51.6 H* 52.9 H* 37.8 H D (0-14) pg/ml B-Natriuretic Peptide (0-100) pg/ml 10/31/23 10/31/23 Range/Units 07:17 10:53 AST 14 (13-39) U/L Troponin I High Sens 32.5 H (0-14) pg/ml B-Natriuretic Peptide 1099 H (0-100) pg/ml Coagulation 10/31/23 10/31/23 Range/Units 07:17 10:53 PT 29.5 H (9.0-12.0) Seconds B-Natriuretic Peptide 1099 H (0-100) pg/ml CBC 10/31/23 Range/Units 07:17 WBC 9.61 (4.8-10.8) K/ul RBC 2.82 L (4.20-5.40) M/uL Hgb 8.4 L (12.0-16.0) g/dl Hct 27.0 L (37.0-47.0) % Plt Count 198 (130-400) K/uL Neut # (Auto) 8.63 H (1.40-6.50) K/uL Lymph # (Auto) 0.40 L (1.20-3.40) K/uL Whitman # (Auto) 0.51 (0.11-0.59) K/uL Eos # (Auto) 0.01 (0.00-0.50) K/uL Baso # (Auto) 0.02 (0.00-0.20) K/uL Comprehensive Metabolic Panel 10/31/23 Range/Units 07:17 Sodium 139 (136-145) mmol/L Potassium 3.7 (3.5-5.1) mmol/L Chloride 110 H (98-107) mmol/L Carbon Dioxide 25 (21-32) mmol/L BUN 30 H (6-23) mg/dl Creatinine 0.76 (0.6-1.2) mg/dl Glucose 120 H (70-99(Fasting)) mg/dl Calcium 8.3 L (8.6-10.3) mg/dl AST 14 (13-39) U/L ALT 4 L (7-52) U/L Alkaline Phosphatase 109 H (34-104) U/L Total Protein 4.8 L D (6.0-8.3) gm/dl Albumin 2.7 L (3.4-5.0) gm/dl Intake and Output 10/31/23 10/31/23 10/31/23 06:59 14:59 22:59 Intake Total 1100 / 2150 200 / 200 Output Total 660 / 660 250 / 251 1 / 251 Balance 440 / 1490 -50 / -51 - / -51 Intake: IV 700 / 1750 200 / 200 Acetaminophen 1,000 mg In 100 100 / 100 ml @ 400 mls/hr IV NOW STA Rx#: [id number] Piperacillin/Tazobactam 4.5 gm 100 / 100 200 / 200 In Dextrose 5% Mini-B 100 ml @ 25 mls/hr IV Q8H [facility] Rx#: [id number] Sodium Chloride 0.9% 500 ml @ 500 / 500 999 mls/hr IV .Q31M ONE Rx#: [id number] Oral 400 / 400 Output: Urine Amount (Catheter) 660 / 660 250 / 250 Cisneros/Indwelling 660 / 660 250 / 250 # Bowel Movements Other: Weight 82 kg Weight Measurement Method Built in Bedscale Diagnostic Findings EKG performed today 10/31/2023 at 5:52 AM revealed atrial fibrillation with rapid ventricular response at 110 bpm, right bundle branch block, compared to the previous tracing performed yesterday at 17: 14, no significant change. Compared to July,, atrial fibrillation has replaced sinus rhythm. The right bundle branch block finding is chronic. Transthoracic echocardiogram performed today 10/31/2023 and interpreted independently: Mild concentric left ventricular hypertrophy No regional wall motion abnormalities noted Hyperdynamic left ventricular systolic function, LVEF greater than 70% Mild aortic regurgitation The left atrium is normal in size Mild aortic root dilatation, 3.8 cm, the proximal ascending aorta diameter is moderately enlarged, 4.5 cm (1) Cellulitis Site of cellulitis: unspecified site Qualified Code(s): L03.90 - Cellulitis, unspecified
[2023-10-31] MEDS: POTASSIUM CHLORIDE PWD 20 MEQ PACK PO SCH (17:53)
[2023-10-31] MEDS: MIDODRINE HCL 2.5 MG TAB PO SCH (17:54)
--- OUTSIDE RECORDS SUMMARY | 2023-10-31 19:11 | External Medical Summary | Summary of Care ---
Author Name Unknown Organization [facility] Address [address] [place] [address] Phone [phone] Care Team Providers Care Lining Feller Name Role Phone Lavern Gomez Primary Care Provider Reason for Visit * Reason Onset Date Comments [facility]: Acute 10/30/2023 Encounter Details Date Type Department Care Team (Late st Contact Info) Description 10/30/2023 Telephone [facility], [facility] [address] [place] [address] [facility], Nurse [facility] [address] [place] [address] [facility]: Acute Allergies Active Allergy [...] as of this encounter (statuses as of 10/30/2023) Medications Medication Sig Dispensed Refills Start Date [...] as of this encounter (statuses as of 10/30/2023) Active Problems Problem Noted Date Diagnosed Date [...] with perforation 023 Overview: Admission to [facility] 10/28. Last Assessment & Plan: Stable. Still having diarrhea -Continue Invanz until 11/19/22 with ID at [facility] -Encouraged hydration Lymphedema 09/07/2022 Aneurysm of ascending [...] 05/07/2018 Last Assessment & Plan: Followed by drug discovery informatics specialist Major depressive disorder, recurrent, mild 04/30 Last [...] as of this encounter (statuses as of 10/30/2023) Resolved Problems Problem Noted Date Diagnosed Date [...] as of this encounter (statuses as of 10/30/2023) Immunizations Name Administration Dates Next Due COVID-19 mRNA, LNP-s, No Pre serve, 2-Dose Series ([employer]) 07/07/2021,10/04/2020,09/07/2020 Hepatitis B, 20+ yrs 11/05/2004,07/08/1995 PPD 01/25/2008 Pneumococcal Conjugate Vacc, 13 Valent (Prevnar) 06/10/2015 Pneumococcal Conjugate Vacci ne, 20-valent ([id number]) 06/06/2023 Pneumococcal Polysaccharide PPV23 (Pneumovax) 06/07/2019,12/26/2007 Seasonal [...] Telephone Encounter - Karolyn Diaz RN - 10/30/2023 12:20 PM EDT Call received from the pt's POA Lakesha Magallon. Discussed [facility] recommendation for admission to hospitaland potential SNF placement for worsening cellulits. Lakesha agreeable to hospital admission for pt. Call placed to the pt's [facility], spoke to Jacinto, made aware families wishes. Will forward message to care team to make aware. * Telephone Encounter - Lori Sanchez RN - 10/30/2023 12:01 PM EDT Phone call to [facility], spoke with Giovanni She confirmed nurse was in room last 2 days to assess patient. They always find her with legs down,feet on floor. Complaining of pain. They did not feel legs were any worse Discussed that [facility] has recommended either patient going to SNF, or to hospital for admission then to SNF. Staying there w/o benefit will lead to infection and sepsis Have not been able to reach patient, and friend not responding to email sent back to her. They willneed to discuss the above recommendations with patient. Giovanni will talk with her, and call [facility] back with decision 833# option#1, ask for Maryse provided Maryse Sanchez, RN, BSN [facility] Intake Triage Coordinator [phone] * Telephone Encounter - Rashawn Crowe MD - 10/30/2023 11:45 AM EDT It seems she is unable to get the appropriate wound care in her current setting. Without proper care, her legs will continue to worsen, get infected and possibly lead to sepsis. I would recommend considering transferring to snf facility If images show sign of infection, I'd recommend admission and hospital staff can facilitate transition to SNF * Telephone Encounter - Lori Sanchez RN - 10/30/2023 11:06 AM EDT [facility] electrical prospecting observer Acute Call Date: 10/30/2023 Time: 11:06 AM Name: Bonnie Oneal : 1950 Caller: Amanda Relationship to Friend, with patient in background No chief complaint on file. HPI: Bonnie Oneal is a 73 year old female whose friend visiting is calling [facility] report patient is in tear and pain because legs are getting worse, not better Swollen, red, weeping Patient had them down, now friend helped her elevate them Reports she does not remember any [facility] nurse coming in her room the last few days to check on her legs She is in bed or her chair all day long, can barely stand up /walk Cellultiis Had IM Rocephin -21. Then started on Cephalexin 500 mg qid x 10 days, confirmed pt is taking as ordered. Afebrile Patient has declined to wear compression pump in the past Friend agreed to send photos, patient agreeable to same as well. Photos came through on Photo Bon, not magnolia to open on [employer]. Email back to friend , has not responded. Called patient's cell x2, went to voice mail. See prior photos from 10/23, 10/25 notes . 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, recurrent, mild ([facility]) F33.0 Chronic diastolic (congestive) heart failure ([facility]) 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 Paroxysmal supraventricular tachycardia ([facility]) I47.10 Gait abnormality R26.9 Superficial vein thrombosis I82.890 Hypercoagulopathy ([facility]) D68.59 Intermittent asthma with reliever use up [...] D50.9 Aneurysm of ascending aorta without rupture ([facility]) I71.21 Acute pyelonephritis N10 Lymphedema I89.0 Diverticulitis of colon with perforation K57.20 Lower extremity edema R60.0 Opioid dependence, uncomplicated ([facility]) F11.20 Personality disorder, unspecified ([facility]) F60.9 Atrial fibrillation ([facility]) I48.91 Parkinson's disease ([facility]) G20.A1 Shoulder arthritis M19.019 Nontraumatic complete tear of right rotator cuff M75.121 Nontraumatic complete tear of left rotator cuff M75.122 Nursing Assessment: Patient's chief complaint for this call: Other, describe Leg pain, swelling edema, weeping Pain Has pain Pain level: 8 Location: B/L Lower legs Quality of Pain: heavy, tight, burn at times Does the pain radiate: No Baseline Assessment Able to performing ADLs at baseline (walking, daily tasks, etc.): No Chief Complaint is related to a chronic condition: Yes Chronic Condition: Cellulitis Chief Complaint is a change in baseline: No Patient prescribed oxygen? No Patient has been ordered DME equipment (assistive devices, respiratory equipment, etc.): No Medication Reconciliation: Received flu shot this season: Yes Taking medication as ordered: Yes Medications ordered/taking to treat reason for call: No Heart failure symptoms: No COPD exacerbation symptoms: No Reinforcement Education: MUST elevate legs at all times when seated. At least level to hips Avoid salty foods, no added salt to food Take all medications as ordered, especially water pill Treatment/Plan: Level of call: Acute Appointment scheduled for same day: Pending Care team decision Provider Name: Pending Maryse Sanchez RN, BSN [facility] Intake Triage Coordinator [phone] Call back instructions provided to patient. documented in this encounter Plan of Treatment Upcoming Encounters Date Type Department Care Team (Late st Contact Info) Description 10/30/2023 1:00 PM EDT Telemedicine Psychology, [place] [address] [place] [address] 2, Psychology Group [facility] [place] [address] 10/31/2023 10:30 AM EDT Office Visit Oral Maxillofacial Surgery, [place] [address] [place] [address] Gus Andrews DDS, MD [facility] [address], [place] [id number] 11/01/2023 2:00 PM EDT Imaging Vascular Lab, [facility] 2nd [facility] [address] [place] [address] 11/05/2023 2:00 PM EDT Office Visit [facility] [address] [place] [address] Mark Carr MD [address] [place] [address] 11/06/2023 11:20 AM EDT Hospital Encounter OR [facility], Operating Room [facility] [address] [place] [id number] Jeffery Rodríguez DO [address] [place] [phone] 11/06/2023 11:20 AM EDT - 11/06/2023 11:45 AM EDT Surgery OR [facility], [facility] [address] [facility] [phone] Jeffery Rodríguez DO [address] [place] [phone] INJECTION SPINE LUMBAR OR [facility] 11/06/2023 1:00 PM EDT Telemedicine [address] [address], Psychology Group [address] [place] [address] 11/06/2023 2:30 PM EDT Home Visit [facility], [facility] 132 [facility] [place] [address] Sonja Robledo RN [address] [place] [address] 11/13/2023 1:00 PM EDT Telemedicine [address] [address] 2, Psychology Group [address] [place] [address] 11/13/2023 5:45 PM EDT [facility] Call Center [address] [place] [address] [facility], [facility] [address] [place] [address] 11/20/2023 1:00 PM EDT Telemedicine [address] [address] 2, Psychology Group [address] [place] [address] 11/27/2023 1:00 PM EDT Telemedicine [address] [address] 2, Psychology Group [address] [place] [address] 12/04/2023 1:00 PM EDT Telemedicine [address] [address] 2, Psychology [address] [address] 12/11/2023 1:00 PM EDT Telemedicine [place] [address] [place] [address] 2, Psychology [address] [address] 12/18/2023 11:20 AM EDT Office Visit [place] [address] [place] [phone] Debbie Otero PA-C [address] [place] [address] 12/31/2023 11:00 AM EDT Office Visit Cardiology, [facility] [place] [address] Patricia [facility]t [facility] [place] [address] 01/22/2024 11:40 AM EDT Office Visit [place] [address] [place] [address] Debbie Otero PA-C [address] [place] [address] 03/31/2024 11:00 AM EDT Laboratory Laboratory, [place] [address] [place] [facility] [place] [id number] [place], Laboratory [address] [place] [address] 04/07/2024 2:00 PM EDT Office Visit Hematology/Oncology [place] [address] [facility] [place], [place] [phone] Hanane Enamorado CRNP [address] [place] [address] 05/05/2024 10:00 AM EDT Nurse Only Ancillary Department, [place] [address] [facility] [address] [place], Nurse [facility] [address] [facility] [address] Scheduled Procedures Name Priority Associated Diagnoses Date/Ti [...] D LEVEL ONCE IN A LIFETIME-USE SMARTSET# 09678 Completed 11/21/2021, 06/06/2020, 02/16/2020, Additional history exists [...] Documents on File Type Date Recorded Patient Cutting Machine Tender Helper Expl anation Advance Directives and Living Will 09/26/2023 signed on 08/22/2023 ADVANCE DIRECTIVE / LIVING WILL Power of Tube Drawing Supervisor 09/26/2023 signed on 08/22/2023 POWER OF CLOSING MACHINE OPERATOR HEALTH CARE Healthcare Agents on File Name Relationship Healthcare Agent Relationship Communication Erica Nunes Other - (no specific identity) Health Care Cutting Machine Tender Helper (appointed verbally by patient or by statute hierarchy) Care Teams Lining Feller Relationship Specialty Start Date End Date Lavern Gomez DO [address] [place] [facility] [place] [address] PCP - General Family Medicine 10/27/22 documented as of this encounter
--- OUTSIDE RECORDS SUMMARY | 2023-10-31 19:11 | External Medical Summary | Summary of Care ---
Author Name Unknown Organization [facility] Address [address] [place] [address] Phone [phone] Care Team Providers Care Electronic Health Records Specialist Name Role Phone Lavern Gomez Primary Care Provider Reason for Visit * Reason Onset Date Comments [facility]: Acute 10/30/2023 Encounter Details Date Type Department Care Team (Late st Contact Info) Description 10/30/2023 Telephone [facility], [facility] [address] [place] [address] [facility], Nurse [facility] [address] [place] [address] [facility]: Acute Allergies Active Allergy [...] with perforation 023 Overview: Admission to [facility] 10/28. Last Assessment & Plan: Stable. 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 Major depressive disorder, recurrent, mild 04/30 Last [...] this will have to come through PCP, [facility] does not participate in chronic pain [...] mRNA, LNP-s, No Pre serve, 2-Dose Series ([employer]) 07/07/2021,10/04/2020,09/07/2020 Hepatitis B, 20+ yrs 11/05/2004,07/08/1995 PPD 01/25/2008 Pneumococcal Conjugate Vacc, 13 Valent (Prevnar) 06/10/2015 Pneumococcal Conjugate Vacci ne, 20-valent ([id number]) 06/06/2023 Pneumococcal Polysaccharide PPV23 (Pneumovax) 06/07/2019,12/26/2007 Seasonal [...] Encounter - Lori Sanchez RN - 10/30/2023 1:20 PM EDT Patient will need to report to ED to be admitted Called [facility], spoke to [place]. Advised of above. They will call ambulance for transport Maryse Sanchez RN, BSN [facility] Intake Triage Coordinator [phone] * Telephone Encounter - Karolyn Diaz RN - 10/30/2023 12:20 PM EDT Call received from the pt's REBECAA Lakesha Magallon. Discussed [facility] recommendation for admission to hospitaland potential SNF placement for worsening cellulits. Lakesha agreeable to hospital admission for pt. Call placed to the pt's [facility], spoke to Jacinto, made aware families wishes. Will forward message to care team to make aware. * Telephone Encounter - Lori Sanchez RN - 10/30/2023 12:01 PM EDT Phone call to [facility], spoke with Giovanni She confirmed nurse was in room last 2 days to assess patient. They always find her with legs down,feet on floor. Complaining of pain. They did not feel legs were any worse Discussed that [facility] has recommended either patient going to SNF, or to hospital for admission then to SNF. Staying there w/o benefit will lead to infection and sepsis Have not been able to reach patient, and friend not responding to email sent back to her. They willneed to discuss the above recommendations with patient. Giovanni will talk with her, and call [facility] back with decision 833# option#1, ask for Maryse provided Maryse Sanchez RN, BSN [facility] Intake Triage Coordinator [phone] * Telephone Encounter - Rashawn Crowe MD - 10/30/2023 11:45 AM EDT It seems she is unable to get the appropriate wound care in her current setting. Without proper care, her legs will continue to worsen, get infected and possibly lead to sepsis. I would recommend [facility] to jail facility If images show sign of infection, I'd recommend admission and hospital staff can facilitate transition to SNF * Telephone Encounter - Lori Sanchez RN - 10/30/2023 11:06 AM EDT [facility] engineer intern Acute Call Date: 10/30/2023 Time: 11:06 AM Name: Bonnie Oneal : 1950 Caller: Amanda Relationship to Friend, with patient in background No chief complaint on file. HPI: Bonnie Oneal is a 73 year old female whose friend visiting is calling [email or web address] report patient is in tear and pain because legs are getting worse, not better Swollen, red, weeping Patient had them down, now friend helped her elevate them Reports she does not remember any [facility] nurse coming in her room the last few days to check on her legs She is in bed or her chair all day long, can barely stand up /walk Cellultiis Had IM Rocephin [id number]. Then started on Cephalexin 500 mg qid x 10 days, confirmed pt is taking as ordered. Afebrile Patient has declined to wear compression pump in the past Friend agreed to send photos, patient agreeable to same as well. Photos came through on Photo Bon, not magnolia to open on [employer] System. Email back to friend , has [...] goal below 130/80 I10 MEDICATION USE AGREEMENT [id number] Vitamin D deficiency E55.9 Intestinal malabsorption following [...] abnormality R26.9 Superficial vein thrombosis I82.890 Hypercoagulopathy ([facility]) D68.59 Intermittent asthma with reliever use up [...] D50.9 Aneurysm of ascending aorta without rupture ([facility]) I71.21 Acute pyelonephritis N10 Lymphedema I89.0 Diverticulitis of colon with perforation K57.20 Lower extremity edema R60.0 Opioid dependence, uncomplicated ([facility]) F11.20 Personality disorder, unspecified ([facility]) F60.9 Atrial fibrillation (HCC) I48.91 Parkinson's disease ([facility]) G20.A1 Shoulder arthritis M19.019 Nontraumatic complete tear [...] Provider Name: Pending Maryse Sanchez RN, BSN [facility] Intake Triage Coordinator [phone] Call back instructions provided to patient. documented in this encounter Plan of Treatment Upcoming Encounters Date Type Department Care Team (Late st Contact Info) Description 11/01/2023 2:00 PM EDT Imaging Vascular Lab, [facility] 2nd [facility] [address] [place] [address] 11/05/2023 2:00 PM EDT Office Visit [facility] [address] [place] [address] Mark Carr MD [address] [place] [address] 11/06/2023 11:20 AM EDT Hospital Encounter OR [facility], Operating Room [facility] [address] [place] [phone] Jeffery Rodríguez, [address] [place] [phone] 11/06/2023 11:20 AM EDT - 11/06/2023 11:45 AM EDT Surgery OR [facility], Operating Room [facility] [address] [place] [phone] Jeffery Rodríguez DO [address] [place] [address] INJECTION SPINE LUMBAR OR [facility] 11/06/2023 1:00 PM EDT Telemedicine [address] [address], Psychology Group [address] [place] [address] 11/06/2023 2:30 PM EDT Home Visit [facility], [facility] [address] [place] [address] Sonja Robledo RN [address] [place] [address] 11/13/2023 1:00 PM EDT Telemedicine [address] [address], Psychology Group [address] [place] [address] 11/13/2023 5:45 PM EDT [facility] Pharmacy Call Center [address] [place] [address] [facility] [address] [place] [address] 11/20/2023 1:00 PM EDT Telemedicine [address] [address], Psychology Group [address] [place] [address] 11/27/2023 1:00 PM EDT Telemedicine [address] [address], Psychology Group [address] [place] [address] 12/04/2023 1:00 PM EDT Telemedicine [address] [address], Psychology Group [address] [place] [address] 12/11/2023 1:00 PM EDT Telemedicine [facility] [address] [place] [address] 2, Psychology Group [address] [place] [address] 12/18/2023 11:20 AM EDT Office Visit [facility], [place] [address] [place] [address] Debbie Otero PA-C [address] [place], [place] [address] 12/31/2023 11:00 AM EDT Office Visit [facility], [facility] [place] [address] Patricia Knott CRNP [facility] [place] [address] 01/22/2024 11:00 AM EDT Office Visit Oral Maxillofacial Surgery, [place] [address] [place] [address] Charles Scott DMD, MD [address] [place] [address] 01/22/2024 11:40 AM EDT Office Visit [facility], [place] [address] [place] [address] Debbie Otero PA-C [address] [place], [place] [address] 03/31/2024 11:00 AM EDT Laboratory Laboratory, [place] [address] [place] [address] [place], Laboratory [address] [facility] [address] 04/07/2024 2:00 PM EDT Office Visit Hematology/Oncology [place] [address] [place] [phone] Hanane Enamorado CRNP [address] [place] [address] 05/05/2024 10:00 AM EDT Nurse Only Ancillary Department, [place] [address] [place] [address] [place], Nurse Annual Wellness [address] [place] [address] Scheduled Procedures Name Priority Associated Diagnoses Date/Ti [...] D LEVEL ONCE IN A LIFETIME-USE SMARTSET# [id number] Completed 11/21/2021, 06/06/2020, 02/16/2020, Additional history exists [...] Documents on File Type Date Recorded Patient Circular Knife Cutter Machine Expl anation Advance Directives and Living Will 09/26/2023 signed on 08/22/2023 ADVANCE DIRECTIVE / LIVING WILL Power of Communications Marketing Intern 09/26/2023 signed on 08/22/2023 POWER OF PANTOGRAPH SETTER HEALTH CARE Healthcare Agents on File Name Relationship Healthcare Agent Relationship Communication Erica Nunes Other - (no specific identity) Health Care Circular Knife Cutter Machine (appointed verbally by patient or by statute hierarchy) Care Teams Electronic Health Records Specialist Relationship Specialty Start Date End Date Lavern Gomez DO [address] [place] [address] PCP - General Family Medicine 10/27/22 documented as of this encounter
--- OUTSIDE RECORDS SUMMARY | 2023-10-31 19:11 | External Medical Summary | Summary of Care ---
Author Name Unknown Organization [facility] Address [address] [place] [address] Phone [phone] Care Team Providers Care Sheet Metal Shop Helper Name Role Phone Lavern Gomez Primary Care Provider Reason for Visit * Reason Onset Date Comments [facility]: Acute 10/30/2023 Encounter Details Date Type Department Care Team (Late st Contact Info) Description 10/30/2023 Telephone [facility], [facility] [address] [place] [address] [facility], Nurse [facility] [address] [place] [address] [facility]: Acute Allergies Active Allergy [...] colon with perforation 023 Overview: Admission to [facility] 10/28. Last Assessment & Plan: Stable. 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 [...] mRNA, LNP-s, No Pre serve, 2-Dose Series ([employer]) 07/07/2021,10/04/2020,09/07/2020 Hepatitis B, 20+ yrs 11/05/2004,07/08/1995 PPD 01/25/2008 Pneumococcal Conjugate Vacc, 13 Valent (Prevnar) 06/10/2015 Pneumococcal Conjugate Vacci ne, 20-valent ([id number]) 06/06/2023 Pneumococcal Polysaccharide PPV23 (Pneumovax) 06/07/2019,12/26/2007 Seasonal [...] encounter Miscellaneous Notes * Telephone Encounter - Rashawn Corwe MD - 10/30/2023 11:45 AM EDT It seems she is unable to get the appropriate wound care in her current setting. Without proper care, her legs will continue to worsen, get infected and possibly lead to sepsis. I would recommend considering transferring to [place] [facility] If images show sign of infection, I'd recommend admission and hospital staff can facilitate transition to SNF * Telephone Encounter - Lori Sanchez RN - 10/30/2023 11:06 AM EDT [facility] electrolysis engineer Acute Call Date: 10/30/2023 Time: 11:06 AM Name: Bonnie Oneal : 1950 Caller: Amanda Relationship to Friend, with patient in background No chief complaint on file. HPI: Bonnie Oneal is a 73 year old female whose friend visiting is calling [facility] Intaketo report patient is in tear and pain because legs are getting worse, not better Swollen, red, weeping Patient had them down, now friend helped her elevate them Reports she does not remember any [facility] nurse coming in her room the last few days to check on her legs She is in bed or her chair all day long, can barely stand up /walk Cellultiis Had IM Rocephin [id number]. Then started on Cephalexin 500 mg qid x 10 days, confirmed pt is taking as ordered. Afebrile Patient has declined to wear compression pump in the past Friend agreed to send photos, patient agreeable to same as well. Photos came through on Photo Bon, not magnolia to open on [employer]. Email back to friend , has [...] goal below 130/80 I10 MEDICATION USE AGREEMENT [id number] Vitamin D deficiency E55.9 Intestinal malabsorption following [...] abnormality R26.9 Superficial vein thrombosis I82.890 Hypercoagulopathy ([facility]) D68.59 Intermittent asthma with reliever [...] D50.9 Aneurysm of ascending aorta without rupture ([facility]) I71.21 Acute pyelonephritis N10 Lymphedema I89.0 Diverticulitis of colon with perforation K57.20 Lower extremity edema R60.0 Opioid dependence, uncomplicated ([facility]) F11.20 Personality disorder, unspecified ([facility]) F60.9 Atrial fibrillation (HCC) I48.91 Parkinson's disease ([facility]) G20.A1 Shoulder arthritis M19.019 Nontraumatic [...] Provider Name: Pending Maryse Sanchez RN, BSN [facility] Intake Triage Coordinator [phone] Call back instructions provided to patient. documented in this encounter Plan of Treatment Upcoming Encounters Date Type Department Care Team (Late st Contact Info) Description 10/30/2023 1:00 PM EDT Telemedicine Psychology, [place] [address] [place] [address] 2, Psychology Group [address] [place] [address] 10/31/2023 10:30 AM EDT Office Visit Oral Maxillofacial Surgery, [place] [address] [place] [address] Gus Andrews DDS, MD [address] [place] [address] 11/01/2023 2:00 PM EDT Imaging Vascular Lab, [facility] 2nd Floor, [address] [address] 11/05/2023 2:00 PM EDT Office Visit [place] [address] [place] [address] Mark Carr MD [address] [place] [address] 11/06/2023 11:20 AM EDT Hospital Encounter OR [facility], Operating Room [facility] [address] [place] [phone] Jeffery Rodríguez, DO [address] [place] [phone] 11/06/2023 11:20 AM EDT - 11/06/2023 11:45 AM EDT Surgery OR [facility], Operating Room [facility] [address] [place] [phone] Jfefery Rodríguez, DO [address] [place] [phone] INJECTION SPINE LUMBAR OR SACRAL 11/06/2023 1:00 PM EDT Telemedicine [facility] [address] [place] [address] 2, Psychology Group [address] [place] [address] 11/06/2023 2:30 PM EDT [facility] [place] [address] Sonja Robledo RN 132 [facility] [place] [address] 11/13/2023 1:00 PM EDT Telemedicine [facility] [address] [place] [address] 2, Psychology Group [address] [facility] [place] [address] 11/13/2023 5:45 PM EDT [facility] Call Center [address] [place] [address] Ccps, [facility] 58 60 [facility] [place] [address] 11/20/2023 1:00 PM EDT Telemedicine [address] [address] 2, Psychology Group [address] [place] [address] 11/27/2023 1:00 PM EDT Telemedicine [address] [address] 2, Psychology Group [address] [place] [address] 12/04/2023 1:00 PM EDT Telemedicine [address] [address] 2, Psychology [address] [address] 12/11/2023 1:00 PM EDT Telemedicine [address] [address] 2, Psychology Group [address] [place] [address] 12/18/2023 11:20 AM EDT Office Visit [address] [phone] Debbie Otero PA-C [address] [place] [address] 12/31/2023 11:00 AM EDT Office Visit Cardiology, [facility] [address] [place] [address] Patricia Knott CRNP [address] [place] [address] 01/22/2024 11:40 AM EDT Office Visit [place] [address] [place] [address] Debbie Otero [facility]-C [address] [facility] [id number] 03/31/2024 11:00 AM EDT Laboratory [facility], [place] [address] [facility] [address] [place], Laboratory [address] [facility] [place] [address] 04/07/2024 2:00 PM EDT Office Visit Hematology/Oncology [facility] [place] [facility] [address] Hanane Enamorado CRNP [address] [facility] [place] [address] 05/05/2024 10:00 AM EDT Nurse Only Ancillary Department, [place] [address] [facility] [id number] [place], Nurse [facility] [address] [facility] [phone] Scheduled Procedures Name Priority Associated Diagnoses Date/Ti [...] D LEVEL ONCE IN A LIFETIME-USE SMARTSET# [id number] Completed 11/21/2021, 06/06/2020, 02/16/2020, Additional history exists [...] Documents on File Type Date Recorded Patient Mud Temperer Expl anation Advance Directives and Living Will 09/26/2023 signed on 08/22/2023 ADVANCE DIRECTIVE / LIVING WILL Power of Workers Compensation Claims Supervisor 09/26/2023 signed on 08/22/2023 POWER OF DIRECTOR REGULATORY AFFAIRS HEALTH CARE Healthcare Agents on File Name Relationship Healthcare Agent Relationship Communication Erica Nunes Other - (no specific identity) Health Care Mud Temperer (appointed verbally by patient or by statute hierarchy) Care Teams Sheet Metal Shop Helper Relationship Specialty Start Date End Date Lavern Gomez DO [address] [place] [address] PCP - General Family Medicine 10/27/22 documented as of this encounter
--- OUTSIDE RECORDS SUMMARY | 2023-10-31 19:11 | External Medical Summary | Summary of Care ---
Author Name Unknown Organization [facility] Address [address] [place] [address] Phone [phone] Care Team Providers Care Commercial Analyst Name Role Phone Lavern Gomez Primary Care Provider [phone] Reason for Visit * Reason Onset Date Comments [facility]: Acute 10/30/2023 Encounter Details Date Type Department Care Team (Late st Contact Info) Description 10/30/2023 Telephone [facility], [facility] [address] [place] [address] [facility], Nurse [facility] [address] [place] [address] [facility]: Acute Allergies Active Allergy [...] colon with perforation 023 Overview: Admission to [facility] 10/28. Last Assessment & Plan: Stable. 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 Major depressive disorder, recurrent, mild 04/30 Last [...] have to come through PCP, [facility] does not participate in chronic pain [...] mRNA, LNP-s, No Pre serve, 2-Dose Series ([employer]) 07/07/2021,10/04/2020,09/07/2020 Hepatitis B, 20+ yrs 11/05/2004,07/08/1995 PPD 01/25/2008 Pneumococcal Conjugate Vacc, 13 Valent (Prevnar) 06/10/2015 Pneumococcal Conjugate Vacci ne, 20-valent ([id number]) 06/06/2023 Pneumococcal Polysaccharide PPV23 (Pneumovax) 06/07/2019,12/26/2007 Seasonal [...] 10/30/2023 12:01 PM EDT Phone call to [facility], spoke with Giovanni She confirmed nurse was in room last 2 days to assess patient. They always find her with legs down,feet on floor. Complaining of pain. They did not feel legs were any worse Discussed that [facility] has recommended either patient going to SNF, or to hospital for admission then to SNF. Staying there w/o benefit will lead to infection and sepsis Have not been able to reach patient, and friend not responding to email sent back to her. They willneed to discuss the above recommendations with patient. Giovanni will talk with her, and call [facility] back with decision 833# option#1, ask for Maryse provided Maryse Sanchez RN, BSN [facility] Intake Triage Coordinator [phone] * Telephone Encounter - Rashawn Crowe MD - 10/30/2023 11:45 AM EDT It seems she is unable to get the appropriate wound care in her current setting. Without proper care, her legs will continue to worsen, get infected and possibly lead to sepsis. I would recommend considering transferring to senior living facility If images show sign of infection, I'd recommend admission and hospital staff can facilitate transition to SNF * Telephone Encounter - Lori Sanchez RN - 10/30/2023 11:06 AM EDT [facility] toaster operator Acute Call Date: 10/30/2023 Time: 11:06 AM Name: Bonnie Oneal : 1950 Caller: Amanda Relationship to Friend, with patient in background No chief complaint on file. HPI: Bonnie L Foster is a 73 year old female whose friend visiting is calling [facility] Intaketo report patient is in tear and pain because legs are getting worse, not better Swollen, red, weeping Patient had them down, now friend helped her elevate them Reports she does not remember any [facility] nurse coming in her room the last few days to check on her legs She is in bed or her chair all day long, can barely stand up /walk Cell[employer]iis Had IM Rocephin [id number]. Then started on Cephalexin 500 mg qid x 10 days, confirmed pt is taking as ordered. Afebrile Patient has declined to wear compression pump in the past Friend agreed to send photos, patient agreeable to same as well. Photos came through on Photo Bon, not magnolia to open on [employer] System. Email back to friend , has [...] goal below 130/80 I10 MEDICATION USE AGREEMENT [id number] Vitamin D deficiency E55.9 Intestinal malabsorption following [...] Pending Maryse Sanchez RN, BSN [facility] Intake Triage Coordinator [phone] Call back instructions provided to patient. documented in this encounter Plan of Treatment Upcoming Encounters Date Type Department Care Team (Late st Contact Info) Description 10/30/2023 1:00 PM EDT Telemedicine [address] [address] 2, Psychology Group [address] [place] [address] 10/31/2023 10:30 AM EDT Office Visit Oral Maxillofacial Surgery, [place] [address] [place] [address] Gus Andrews DDS, MD [address] [place], [place] 11/01/2023 2:00 PM EDT Imaging [facility] Lab, [facility] [address] [place] [address] 11/05/2023 2:00 PM EDT Office Visit [facility] [address] [place] [phone] Mark Carr MD [address] [place], [place] [address] 11/06/2023 11:20 AM EDT Hospital Encounter OR [facility], Operating Room [facility] [address] [place] [address] Jeffery Rodríguez, DO [address] [place] [address] 11/06/2023 11:20 AM EDT - 11/06/2023 11:45 AM EDT Surgery OR [facility], Operating Room [facility] [address] [place] [phone] Jeffery Rodríguez, DO [address] [place] [address] INJECTION SPINE LUMBAR OR [facility]CR[facility] 11/06/2023 1:00 PM EDT Telemedicine Psychology, [place] [address] [place] [address] 2, Psychology Group [address] [place] 11/06/2023 2:30 PM EDT Home Visit [facility], [facility] [address] [place] [address] Sonja Robledo, RN [address] [place] [address] 11/13/2023 1:00 PM EDT Telemedicine [address] [address] 2, Psychology Group [address] [place] [address] 11/13/2023 5:45 PM EDT [facility] Call Center [address] [place] [address] [facility], [facility] [address] [place] [address] 11/20/2023 1:00 PM EDT Telemedicine [address] [address] 2, Psychology Group [address] [place] [address] 11/27/2023 1:00 PM EDT Telemedicine [address] [address] 2, Psychology Group [address] [place] [address] 12/04/2023 1:00 PM EDT Telemedicine [address] [address] 2, Psychology Group [address] [place] [address] 12/11/2023 1:00 PM EDT Telemedicine [address] [address] 2, Psychology Group [address] [place] [address] 12/18/2023 11:20 AM EDT Office Visit Family [facility], [place] [address] [facility], [place] [phone] Debbie Otero PA-C [address] [facility], [place] [address] 12/31/2023 11:00 AM EDT Office Visit Cardiology, [facility] [place] [address] Patricia Knott CRNP [facility] [place] [address] 01/22/2024 11:40 AM EDT Office Visit [facility], [place] [address] [facility], [place] [address] Debbie Otero PA-C [address] [facility], [place] [address] 03/31/2024 11:00 AM EDT Laboratory Laboratory, [place] [address] [facility], [place] [address] [place], Laboratory [address] [facility], [place] [id number] 04/07/2024 2:00 PM EDT Office Visit Hematology/Oncology [facility] 200 [facility], [place] [address] Hanane Enamorado CRNP [address] [place] [address] 05/05/2024 10:00 AM EDT Nurse Only Ancillary Department, [place] [address] [facility], [place] [address] Dagoberto Nurse Annual Wellness [address] [facility], [place] [address] Scheduled Procedures Name Priority Associated Diagnoses Date/Ti [...] D LEVEL ONCE IN A LIFETIME-USE SMARTSET# [id number] Completed 11/21/2021, 06/06/2020, 02/16/2020, Additional history exists [...] Documents on File Type Date Recorded Patient Slate Cutter Operator Expl anation Advance Directives and Living Will 09/26/2023 signed on 08/22/2023 ADVANCE DIRECTIVE / LIVING WILL Power of Credit Office Manager 09/26/2023 signed on 08/22/2023 POWER OF HIV PREVENTION SPECIALIST HEALTH CARE Healthcare Agents on File Name Relationship Healthcare Agent Relationship Communication Erica Nunes Other - (no specific identity) Health Care Slate Cutter Operator (appointed verbally by patient or by statute hierarchy) Care Teams Commercial Analyst Relationship Specialty Start Date End Date Lavern Gomez DO [address] [place] [address] PCP - General Family Medicine 10/27/22 documented as of this encounter
--- OUTSIDE RECORDS SUMMARY | 2023-10-31 19:12 | External Medical Summary | Summary of Care ---
Author Name Unknown Organization [facility] Address [address] [place] [address] Phone [phone] Care Team Providers Care Drawing Instructor Name Role Phone Lavern Gomez Primary Care Provider Reason for Visit * Reason Onset Date Comments [facility]: Acute 10/30/2023 Encounter Details Date Type Department Care Team (Late st Contact Info) Description 10/30/2023 Telephone [facility], [facility] [address] [place] [address] [facility], Nurse [facility] [address] [place] [address] [facility]: Acute Allergies Active Allergy [...] colon with perforation 023 Overview: Admission to [facility] 10/28. Last Assessment & Plan: Stable. 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 Major depressive disorder, recurrent, mild 04/30 [...] this will have to come through PCP, [facility] does not participate in chronic pain [...] mRNA, LNP-s, No Pre serve, 2-Dose Series ([employer]) 07/07/2021,10/04/2020,09/07/2020 Hepatitis B, 20+ yrs 11/05/2004,07/08/1995 PPD 01/25/2008 Pneumococcal Conjugate Vacc, 13 Valent (Prevnar) 06/10/2015 Pneumococcal Conjugate Vacci ne, 20-valent ([id number]) 06/06/2023 Pneumococcal Polysaccharide PPV23 (Pneumovax) 06/07/2019,12/26/2007 Seasonal [...] 10/30/2023 11:06 AM EDT [facility] kier hand Acute Call Date: 10/30/2023 Time: 11:06 AM Name: Bonnie Oneal : 1950 Caller: Amanda Relationship to Friend, with patient in background No chief complaint on file. HPI: Bonnie Oneal is a 73 year old female whose friend visiting is calling [facility] report patient is in [...] stand up /walk Cell[employer]is Had IM Rocephin [id number]. Then started on Cephalexin 500 mg qid x 10 days, confirmed pt is taking as ordered. Afebrile Patient has declined to wear compression pump in the past Friend agreed to send photos, patient agreeable to same as well. Photos came through on Photo Bon, not magnolia to open on [employer] System. Email back to friend , has [...] goal below 130/80 I10 MEDICATION USE AGREEMENT [id number] Vitamin D deficiency E55.9 Intestinal malabsorption following [...] D50.9 Aneurysm of ascending aorta without rupture ([facility]) I71.21 Acute pyelonephritis N10 Lymphedema I89.0 Diverticulitis of colon with perforation K57.20 Lower extremity edema R60.0 Opioid dependence, uncomplicated ([facility]) F11.20 Personality disorder, unspecified ([facility]) F60.9 Atrial fibrillation (HCC) I48.91 Parkinson's disease ([facility]) G20.A1 Shoulder arthritis M19.019 Nontraumatic complete [...] Provider Name: Pending Maryse Sanchez RN, BSN [facility] Intake Triage Coordinator [phone] Call back instructions provided to patient. documented in this encounter Plan of Treatment Upcoming Encounters Date Type Department Care Team (Late st Contact Info) Description 10/30/2023 1:00 PM EDT Telemedicine Psychology, [place] [address] [place] [address] 2, Psychology Group [facility] [place] [address] 10/31/2023 10:30 AM EDT Office Visit Oral Maxillofacial Surgery, [place] [address] [place] [address] Gus Andrews DDS, MD [facility] [place] [address] 11/01/2023 2:00 PM EDT Imaging Vascular Lab, [facility] 2nd [facility] 132 [facility] [place] [address] 11/05/2023 2:00 PM EDT Office Visit [facility] [address] [place] [address] Mark Carr MD [address] [place] [address] 11/06/2023 11:20 AM EDT Hospital Encounter OR [facility], Operating Room [facility] 132 [facility] [place] [phone] Jeffery Rodríguez DO 132 [facility] [place] [phone] 11/06/2023 11:20 AM EDT - 11/06/2023 11:45 AM EDT Surgery OR [facility], Operating Room [facility] 132 [facility] [phone] Jeffery Rodríguez DO 132 [facility] [place] [address] INJECTION SPINE LUMBAR OR [facility]CR[facility] 11/06/2023 1:00 PM EDT Telemedicine [address] [address] 2, Psychology Group [address] [place] [address] 11/06/2023 2:30 PM EDT Home Visit [facility], [facility] 132 [facility] [place] [address] Sonja Robledo RN [address] [place] [address] 11/13/2023 1:00 PM EDT Telemedicine [address] [address] 2, Psychology Group [address] [place] [address] 11/13/2023 5:45 PM EDT Replaced By [facility] Call Center [address] [place] [address] [facility], [facility] [address] [place] [address] 11/20/2023 1:00 PM EDT Telemedicine [address] [address] 2, Psychology Group [address] [place] [address] 11/27/2023 1:00 PM EDT Telemedicine [address] [address] 2, Psychology Group [address] [place] [address] 12/04/2023 1:00 PM EDT Telemedicine [address] [address] 2, Psychology Group [address] [place] [address] 12/11/2023 1:00 PM EDT Telemedicine [address] [address] 2, Psychology Group [address] [place] [address] 12/18/2023 11:20 AM EDT Office Visit [place] [address] [place] [phone] [phone] Debbie Otero PA-C [address] [place] [address] 12/31/2023 11:00 AM EDT Office Visit Cardiology, [facility] [address] [place] [address] Patricia Knott CRNP [address] [facility] [place] [address] 01/22/2024 11:40 AM EDT Office Visit [place] [address] [place] [address] Debbie Otero PA-C [address] [place], [place] [address] 03/31/2024 11:00 AM EDT Laboratory Laboratory, [place] [address] [place] [address] [facility] Laboratory [facility] [address] [place], [place] [phone] 04/07/2024 2:00 PM EDT Office Visit Hematology/Oncology [facility] [place] [address] [place], [place] [address] Hanane Enamorado CRNP [address] [place] [address] 05/05/2024 10:00 AM EDT Nurse Only Ancillary Department, [place] [address] [facility] [address] [place], Nurse Annual Wellness [address] [place] [address] Scheduled Procedures Name Priority Associated Diagnoses Date/Ti [...] D LEVEL ONCE IN A LIFETIME-USE SMARTSET# [id number] Completed 11/21/2021, 06/06/2020, 02/16/2020, Additional history exists [...] Documents on File Type Date Recorded Patient Oyster Harvester Expl anation Advance Directives and Living Will 09/26/2023 signed on 08/22/2023 ADVANCE DIRECTIVE / LIVING WILL Power of Nursing Professor 09/26/2023 signed on 08/22/2023 POWER OF HEAT TREATING FURNACE TENDER HEALTH CARE Healthcare Agents on File Name Relationship Healthcare Agent Relationship Communication Erica Nunes Other - (no specific identity) Health Care Oyster Harvester (appointed verbally by patient or by statute hierarchy) Care Teams Drawing Instructor Relationship Specialty Start Date End Date Lavern Gomez DO [address] [place] [address] PCP - General Family Medicine 10/27/22 documented as of this encounter
[2023-10-31] MEDS: oxyCODONE HCL IR 5 MG TAB (IMMEDIATE RELEASE) PO STA (21:03)
[2023-11-01 05:53] LABS: Hematocrit (blood only) 26.4 % (37.0-47.0); Hemoglobin 8.1 g/dl (12.0-16.0); Mean Corpuscular Hemoglobin 29.6 pg (25.0-34.0); Mean Corpuscular Hgb Conc 30.7 g/dL (32.0-36.0); Mean Corpuscular Volume 96.4 fL (80.0-100.0); Mean Platelet Volume 9.6 fL (9.4-12.4); Platelet Count 195 K/uL (130-400); RDW Standard Deviation 57.1 fL (36.4-46.3); Red Blood Count 2.74 M/uL (4.20-5.40); White Blood Count 8.42 K/ul (4.8-10.8)
[2023-11-01 06:05] LABS: BUN Creatinine Ratio 31.3 (10-20); C Reactive Protein 25.62 mg/dl (0-0.5); Calcium 7.6 mg/dl (8.6-10.3); Creatinine Clr Calc Pharmacy 60.8 ml/min; Est GFR (African American) 84.8 ml/min; Est GFR (Non-African American) 73.1 ml/min; Phosphorus 2.9 mg/dl (2.5-4.9); Potassium 3.6 mmol/L (3.5-5.1)
[2023-11-01 06:24] LABS: Ferritin 149.2 ng/ml (8-388)
[2023-11-01] MEDS: MIDODRINE HCL 2.5 MG TAB PO SCH (07:47)
[2023-11-01 08:12] LABS: INR 2.4 (0.9-1.1); Prothrombin Time 24.9 Seconds (9.0-12.0)
[2023-11-01] MEDS: IRON SUCROSE 300 MG in SODIUM CHLORIDE 0.9% 250 ML IV SCH (08:45)
--- NOTE | 2023-11-01 10:41 | Hospitalist Progress Note ---
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 Oneal is a 72-year-old woman who has significant past medical history of chronic diastolic CHF, history of PSVT, HTN, thoracic aortic aneurysm, Edenilson- Danlos syndrome, secondary hyperparathyroidism, hypothyroidism, hyperlipidemia, BRANDIE on CPAP, asthma, vitamin D deficiency, GERD, history of diverticulitis with colon perforation, RLS, fibromyalgia, chronic pain syndrome, hypercoagulability, history of gastric bypass, depression, history of PTSD, history of PE who presented to ED for worsening leg swelling and admitted for concern for sepsis. On 10/30, OP notes reviewed where is was noted that the leg swelling is a chronic concern "Seen in clinic a month ago, lower legs were red and flaky with no open areas. Notes that they have gotten more swollen, have been weeping and are more painful" as per visit on 10/[address] Brock OP clinic visit. Has been trying to follow with OMFS as she is suppose to undergo extraction of her teeth due to hopeful shoulder replacement/repair. She notes the left side is much more painful and swollen than usual. Seems last follow up with Cardiology in 06/2023.--during that visit weight was noted to be 75.2 Kg and discharge weight from 07/2023 at 71 kg. Given review, presentation seemed to be exacerbated by heart failure with areas that appear to be superficial cellulitis, in addition to possible dental infection. *Cardiology evaluated patient with medication adjustments noted below. INR this am 2.4 *Continue management of acute HFpEF and infection to optimize for OR for dental extraction. #Sepsis, multifactorial #Chronic lymphedema with superimposed cellulitis #Periapical abscess Meet sepsis criteria by leukocytosis, tachycardia, as well as presumed sources of infecion ER afebrile, P: 105, R: 18, BP 95/66, 98% on room air. WBC: 15, lactate: 1.3, procalcitonin: 1.8. UA unremarkable. CXR without infiltrate. Blood cultures NGTD, s/p CTX and Daptomycin in ED In ER given 1L NSS, Rocephin, daptomycin Continue Zosyn -MRSA NARE negative, d/c daptomycin Monitor on telemetry #Atrial fibrillation with RVR #History of PSVT On warfarin for AC -held at this time Metoprolol was ordered daily, rates remain elevated, will increase home tatrate to BID pending further card recommendations -Transitioned to 12.5 QID, CTM on telemetry #Acute on Chronic Hear Failure with preserved EF Home torsemide held, initial concern for continued diuersis on admission given ill presentation; however, exam of lower extremities reveals profound edema, which is more likely 2/2 heart failure exacerbated by the skin weeping/tears resulting in overlying cellulitis. Profoundly pitting edema, with dusky discoloration Too tender to touch for ABIs exacerbation supported by BNP of 1099 -Hold PO torsemide 40mg daily Continue lasix IV 40 daily -Notable improvement in BLE edema Cardiology consult for optimization as OMFS will be consulted for potential dental extraction during this admission Reviewed from 10/30 note: "If vital signs remain similar, I think she would tolerate oral surgery when INR allows. I would however avoid administering vitamin K in the absence of surgical emergency given atrial fibrillation and VTE history and allow her INR to come down spontaneously." Replace potassium PO for goal>4 #Elevated troponin, likely demand iso RVR and heart failure exacerbation *resolved Elevated troponin: 51--> 52.9--> 32.5 #Left facial swelling and tenderness #Poor dentition #Hematoma of anterior plate Followed Dr. Mcqueen 09/25 who recommends removal of all fractured/infected teeth. Per notes: "following teeth are decayed and fractured and removal is indicated SHANTELL:4,5,6,8,9,11,12,20,22,23,24,26,30--14 teeth" CT facial bones given swelling to assess degree of infection based upon visible swelling -Will follow up on results, contact Dr. Mcqueen and hold warfain--transition to heparin drip when INR <2 -Dr Mcqueen to perform extraction contingent upon INR, will avoid vitamin K given hx #Chronic Hypotension #History of POTS Increased midodrine to 5mg TID--now 7.5mg TID per cards #Prior PE/DVT #Protein C deficiency #Supratherapeutic INR, improved INR: 4.0, now 2.9 -Plan for heparin when INR <2.0, given plan for possible OFMS given notable swelling of left face #Parkinson Disease #RLS Continue ropinirole, carbidopa levodopa States uses rollator at baseline PT/OT eval #BRANDIE CPAP as tolerated. Patient states uses intermittently #Acute on Chronic Anemia #Prior gastric bypass history of KASSANDRA, drop from 10 on admission to 8.4, no apparent signs of bleed Hgb: 10.7. 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 Patient given IV Tylenol and 1 oxycodone in ER continue buprenorphine patch/oxy, lidocaine #Ascending thoracic aortic aneurysm -Reportedly stable, hx measured at measuring 5.1 cm, , noted on ECHO at 4.5cm #Hypothyroid TSH 0.49 Continue synthroid #PTSD #Anxiety Continue mirtazpine and hydroxyzine prn DVT Prophylaxis Currently therapuetic monitor INR when <2 will add heparin Full code as per discussion with pt Currently resides at [facility] Follows with Dr Lavern Gomez for routine care Admission and Anticipated Discharge Date Admission Date: October 30, 2023 Subjective NAEO Pleasant on exam. Reports improvement in swelling of legs, but still with notable pain + Denies chest kat dizziness, fevers chills or nausea Verbalized understanding of plan Physical Exam Constitutional: WD/WN, vitals as above Respiratory: normal respiratory effort, lungs clear to auscultation Cardiovascular: irregularly irregular Skin: improvement in BLE edema with signs of notable reduction in swelling, open skin tears with lymphorrhea Results & Data Results & Data Vital Signs (Past 12 Hours) Vital Signs Temp Pulse Resp BP BP Pulse Ox O2 Del Method 11/01/23 07:00 37.0 C 105 H 18 98/64 L 98 Nasal Cannula 11/01/23 04:09 93/64 L 11/01/23 03:17 36.7 C 115 H 17 82/53 L 95 Nasal Cannula O2 Flow Rate 11/01/23 07:00 2 11/01/23 04:09 11/01/23 03:17 1 Laboratory Results Short CBC 11/01/23 Range/Units 05:17 WBC 8.42 (4.8-10.8) K/ul Hgb 8.1 L (12.0-16.0) g/dl Hct 26.4 L (37.0-47.0) % Plt Count 195 (130-400) K/uL BMP 11/01/23 05:17 Sodium 137 Potassium 3.6 Chloride 107 Carbon Dioxide 23 BUN 25 H Creatinine 0.80 Glucose 122 H Calcium 7.6 L Medications Administered Home Medications Medication Instructions Recorded Confirmed Last Taken atorvastatin 20 mg tablet 20 mg PO .@79901/09/22 10/30/23 12/10/22 buprenorphine 15 mcg/hour weekly 1 patch topical WK 01/09/22 10/30/23 10/24/23 transdermal patch carbidopa 25 mg-levodopa 100 mg 1 tab PO .0800,1200,1600,199901/09/22 10/30/23 10/30/23 tablet fluticasone propionate 50 2 spray intranasal .@799,199901/09/22 10/30/23 12/10/22 mcg/actuation nasal spray,suspension (Flonase Allergy Relief) hydroxyzine HCl 25 mg tablet 25 mg PO QID PRN ANXIETY/ITCHING 01/09/22 10/30/23 Unknown levothyroxine 50 mcg tablet 50 mcg PO .@79901/09/22 10/30/23 12/10/22 montelukast 10 mg tablet 10 mg PO .@199901/09/22 10/30/23 12/09/22 Saccharomyces boulardii 250 mg 250 mg PO .@799,199910/03/22 10/30/23 12/10/22 08:00 capsule (Florastor) warfarin 4 mg tablet 4 mg PO UD 10/03/22 10/30/23 12/09/22 acetaminophen 500 mg tablet 1,000 mg PO Q8H PRN TEMP >100F/PAIN 12/10/22 10/30/23 Unknown (Tylenol Extra Strength) loperamide 2 mg tablet 2 mg PO Q6H PRN Diarrhea 12/10/22 10/30/23 Unknown metoprolol tartrate 25 mg tablet 25 mg PO .@79912/10/22 10/30/2312/10/23 mirtazapine 30 mg tablet 30 mg PO .@199912/10/22 10/30/23 12/09/22 ergocalciferol (vitamin D2) 25,000 50,000 unit PO .WED@79903/07/23 10/30/23 Unknown unit capsule omeprazole 20 mg tablet,delayed 40 mg PO .@79907/29/23 10/30/23 Unknown release ropinirole 5 mg tablet 2.5 mg PO .@08,1499,199907/29/23 10/30/23 Unknown torsemide 20 mg tablet 40 mg PO .@79907/29/23 10/30/23 Unknown warfarin 6 mg tablet 6 mg PO UD 07/29/23 10/30/23 Unknown potassium chloride 20 mEq oral 20 meq PO DAILY #30 ea 07/31/23 10/30/23 Unknown packet cephalexin 500 mg capsule 500 mg PO BID 10/30/23 10/30/23 Unknown midodrine 2.5 mg tablet 3.75 mg PO TID 10/30/23 10/30/23 Unknown Active Medications Generic Name Dose Route Start Last Admin Trade Name Noeq PRN Reason Stop Dose Admin Acetaminophen 1,000 mg 10/31/23 01:00 11/01/23 08:06 Acetaminophen 500 Mg Tab PO 11/30/23 00:59 1,000 mg Q8H ASHUTOSH Administration Atorvastatin Calcium 20 mg 10/30/23 21:15 11/01/23 07:42 Atorvastatin 20 Mg Tab PO 11/29/23 21:14 20 mg DAILY@0800 ASHUTOSH Administration Buprenorphine HCl 3 patch 10/31/23 09:00 10/31/23 13:23 Buprenorphine 5 Mcg/Hr Tdsy TD 11/30/23 08:59 3 patch Th@0900 ASHUTOSH Administration Carbidopa/Levodopa 1 tab 10/30/23 21:15 11/01/23 07:43 Carbidopa/Levodopa 25/100mg Tab PO 11/29/23 21:14 1 tab 0800,1200,1599,1999 ASHUTOSH Administration Fluticasone Propionate 2 sprays 10/30/23 21:15 11/01/23 07:45 Fluticasone Propionate Na Spr 16 Gm Btl ELYSE 11/29/23 21:14 2 sprays BID@08,1999 ASHUTOSH Administration Furosemide 40 mg 10/31/23 16:00 11/01/23 08:46 Furosemide 40 Mg/4 Ml Vial IV 11/30/23 15:59 40 mg DAILY ASHUTOSH Administration Piperacillin Sod/Tazobactam 100 mls @ 25 mls/hr 10/31/23 03:00 11/01/23 06:50 Sod 4.5 gm/ Dextrose IV 11/07/23 02:59 Infused Q8H ASHUTOSH Infusion Protocol Iron Sucrose 300 mg/ Sodium 265 mls @ 176.667 mls/hr 11/01/23 09:00 11/01/23 08:45 Chloride IV 11/03/23 10:29 176.7 mls/hr DAILY ASHUTOSH Administration Levothyroxine Sodium 50 mcg 10/31/23 06:30 11/01/23 05:37 Levothyroxine Sodium 50 Mcg Tablet PO 11/30/23 06:29 50 mcg DAILYBB ASHUTOSH Administration Metoprolol Tartrate 12.5 mg 10/31/23 21:00 11/01/23 08:46 Metoprolol Tartrate 25 Mg Tab PO 11/30/23 20:59 12.5 mg QID ASHUTOSH Administration Midodrine 7.5 mg 11/01/23 08:00 11/01/23 07:47 Midodrine Hcl 2.5 Mg Tab PO 12/01/23 07:59 7.5 mg TID@0800,1300,1800 ASHUTSOH Administration Mirtazapine 30 mg 10/30/23 21:15 10/31/23 20:05 Mirtazapine Tab 15 Mg Tab PO 11/29/23 21:14 30 mg DAILY@1999 ASHUTOSH Administration Miscellaneous 1 each 10/31/23 08:00 11/01/23 07:45 Check Buprenorphine Patch N/A 11/30/23 07:59 1 each QS ASHUTOSH Administration Miscellaneous 1 each 10/31/23 08:59 10/31/23 08:15 Remove & Waste Butrans Patch 1 Ea Ea N/A 11/30/23 08:58 1 each Th@0859 ASHUTOSH Administration Montelukast Sodium 10 mg 10/30/23 21:15 10/31/23 20:06 Montelukast Sodium 10 Mg Tablet PO 11/29/23 21:14 10 mg DAILY@1999 ASHUTOSH Administration Pantoprazole Sodium 40 mg 10/31/23 08:00 11/01/23 07:41 Pantoprazole 40 Mg Tab PO 11/30/23 07:59 40 mg DAILY@0800 ASHUTOSH Administration Potassium Chloride 20 meq 10/31/23 17:00 11/01/23 07:41 Potassium Chloride Pwd 20 Meq Pack PO 11/30/23 16:59 20 meq DAILY ASHUTOSH Administration Ropinirole HCl 2.5 mg 10/30/23 21:15 11/01/23 07:51 Ropinirole Hcl 1 Mg Tablet PO 11/29/23 21:14 2.5 mg TID@0800,1499,1999 ASHUTOSH Administration Saccharomyces Boulardii 250 mg 10/30/23 21:15 11/01/23 07:43 Saccharomyces Boulardii 250 Mg Cap PO 11/29/23 21:14 250 mg DAILY@ ASHUTOSH Administration (13) Hypothyroidism Hypothyroidism type: acquired Qualified Code(s): E03.9 - Hypothyroidism, unspecified
[2023-11-01] MEDS: POTASSIUM CHLORIDE CRTAB 20 MEQ TABCR PO STA (11:08)
--- NOTE | 2023-11-01 12:57 | Electrocardiogram Report ---
Test Reason : Blood Pressure : / mmHG Vent. Rate : 125 BPM Atrial Rate : 159 BPM P-R Int : 000 ms QRS Dur : 120 ms QT Int : 324 ms P-R-T Axes : 000 -08 021 degrees QTc Int : 467 ms Atrial fibrillation with rapid ventricular response Right bundle branch block Cannot rule out Anterior infarct , age undetermined Abnormal ECG When compared with ECG of 31-OCT-2023 05:52, No significant change was found Confirmed by Kaveh Carter ([id number]) on 11/01/2023 12:57:38 PM Referred By: [facility] Confirmed By:Kaveh Carter
--- NOTE | 2023-11-01 13:58 | Oral/Maxillofacial Consult ---
Date of Consultation November 01, 2023 History of Present Illness Reason for Consultation: dental swelling and infections Attending Physician: Annie Jha MD History of Present Illness I evaluated Mrs. Oneal this AM in her room (240) I saw her in my office a while back and noted she still has gum swelling but no bleeding of the gums as she did at the time of the office visit. There is no doubt, Mrs. Oneal will need the removal of all the fractured and infected teeth. To complicate the situation is her many comorbidities. I reserved some time for Saturday afternoon in the OR if you feel she can be cleared by then (no franklin) If you need more to optimize her --no problem . I can do the surgery Saturday, Saturday,Saturday or Saturday of next week. If saturday is too early please let me know so I can cancel the OR hold. The plan is to obtain medical clearance SHANTELL Then hold the Warfarin to allow the PT and INR to be in a normalized range to allow the dental extraction, alveoloplasty. The extraction of the teeth , drain and evaluate all the subperiosteal spaces is medically necessary. This is a very complex medical/oral surgery case that must to preformed in an OR setting to insure patient safety. The following teeth are decayed and fractured and removal is indicated SHANTELL:4,5,6,8,9,11,12,20,22,23,24,26,30--14 teeth Allergies Allergy/AdvReac Type Severity Reaction Status Date / Time ammonia Allergy Severe FACE, Verified 09/26/23 10:47 LIPS, TONGUE EDEMA buspirone Allergy Severe NEURO Verified 09/26/23 10:47 COMPLICATIONS duloxetine Allergy Intermediate RASH Verified 09/26/23 10:47 ITCHING adhesive Allergy Mild skin tears Verified 09/26/23 10:47 vancomycin Allergy Unknown ON [facility] Verified 09/26/23 10:47 MED LIST diphenhydramine AdvReac Intermediate RESTLESS Verified 09/26/23 10:47 LEGS gabapentin AdvReac Intermediate MUSCLE Verified 09/26/23 10:47 STIFFNESS lisinopril AdvReac Intermediate cough Verified 09/26/23 10:47 NSAIDS (Non-Steroidal AdvReac Unknown not Verified 09/26/23 10:47 Anti-Inflamma supposed to use-S/P GASTRIC BYPASS venlafaxine AdvReac Unknown AFFECTS Verified 09/26/23 10:47 LEGS Home Medications Medication Instructions Recorded Confirmed Type atorvastatin 20 mg tablet 20 mg PO .@79901/09/22 10/30/23 History buprenorphine 15 mcg/hour weekly 1 patch topical WK 01/09/22 10/30/23 History transdermal patch carbidopa 25 mg-levodopa 100 mg 1 tab PO .0800,1200,1600,199901/09/22 10/30/23 History tablet fluticasone propionate 50 2 spray intranasal .@799,199901/09/22 10/30/23 History mcg/actuation nasal spray,suspension (Flonase Allergy Relief) hydroxyzine HCl 25 mg tablet 25 mg PO QID PRN ANXIETY/ITCHING 01/09/22 10/30/23 History levothyroxine 50 mcg tablet 50 mcg PO .@79901/09/22 10/30/23 History montelukast 10 mg tablet 10 mg PO .@199901/09/22 10/30/23 History Saccharomyces boulardii 250 mg 250 mg PO .@799,199910/03/22 10/30/23 History capsule (Florastor) warfarin 4 mg tablet 4 mg PO UD 10/03/22 10/30/23 History acetaminophen 500 mg tablet 1,000 mg PO Q8H PRN TEMP >100F/PAIN 12/10/22 10/30/23 History (Tylenol Extra Strength) loperamide 2 mg tablet 2 mg PO Q6H PRN Diarrhea 12/10/22 10/30/23 History metoprolol tartrate 25 mg tablet 25 mg PO .@79912/10/22 10/30/23 History mirtazapine 30 mg tablet 30 mg PO .@199912/10/22 10/30/23 History ergocalciferol (vitamin D2) 25,000 50,000 unit PO .WED@79903/07/23 10/30/23 History unit capsule omeprazole 20 mg tablet,delayed 40 mg PO .@79907/29/23 10/30/23 History release ropinirole 5 mg tablet 2.5 mg PO .@0800,1499,199907/29/23 10/30/23 History torsemide 20 mg tablet 40 mg PO .@79907/29/23 10/30/23 History warfarin 6 mg tablet 6 mg PO UD 07/29/23 10/30/23 History potassium chloride 20 mEq oral 20 meq PO DAILY #30 ea 07/31/23 10/30/23 Rx packet cephalexin 500 mg capsule 500 mg PO BID 10/30/23 10/30/23 History midodrine 2.5 mg tablet 3.75 mg PO TID 10/30/23 10/30/23 History Patient History Medical History (Updated 10/31/23 @ 19:05 by Rashawn Hirsch, DO) Elevated troponin Hx of blood clots Thyroid disease Skin cancer Head injury Recurrent falls Parkinson disease Acute kidney injury Acute exacerbation of chronic low back pain Opioid dependence Fibromyalgia Abdominal hernia Coagulopathy Hypokalemia Weakness Anemia History of DVT (deep vein thrombosis) chronic anticoagulation Protein C deficiency Dysphagia History of colon polyps Difficult intravenous access History of intestinal obstruction Bulging of intervertebral disc Osteoporosis Osteoarthritis Renal cyst History of colon polyps Gastroparesis Thyroid nodule Hearing deficit ADHD Peripheral neuropathy Tachycardia Hyperlipidemia Claustrophobia Sleep apnea intermittently able to tolerate CPAP Asthma uses PRN INH 3-4 x wk GERD (gastroesophageal reflux disease) Hypothyroidism Restless leg syndrome Edenilson-Danlos syndrome Pulmonary embolism 07/2018 - treated w/ lovenox - unk etiology Thoracic aortic aneurysm follows w/ Dr. Arredondo - evaluated within last 6 mo ISAC (generalized anxiety disorder) Surgical History Hx of melanoma excision shoulder Self extubation attempted post gastric bypass History of laparotomy History of left knee replacement History of intestinal surgery History of right knee joint replacement History of arthroscopy of left knee History of abdominoplasty + hernia repair History of bilateral breast reduction surgery History of cholecystectomy History of tonsillectomy History of gastric bypass History of esophagogastroduodenoscopy (EGD) History of colonoscopy 2019 Status post biopsy of thyroid gland benign S/P hysterectomy Family History Uncle Stomach cancer Cancer Family/Other Breast cancer Grandfather Cancer Mother Heart disease Hypertension Stroke Grandmother Heart disease Stroke Other No family history of adverse response to anesthesia No pertinent family history in first degree relatives Social History Smoking Status: Never smoker Second Hand Exposure: Yes; Do You Dip or Chew Tobacco: No; Tobacco Cessation Education Requested by Patient: No Hx Alcohol Use: Yes Alcohol type: wine and hard liquor Hx Substance Use: No Preferred Language: [place] Communication Ability: Effective Communication Ability Comment: pt is obtunded Visual Impairment: Limited Hearing Ability: Normal Database Manager Required: No Beliefs That Will Affect Care: None marital status: Single Current Living Situation: Alone and Personal Care Facility Current Living Situation Comment: Condo - First Floor, able to specify name of Apartment Complex. current occupational status: retired How many Children do You have: 0 Other Information That Helps Us Care for You: No Feels Safe at Home: Yes Safety Concerns: Feels Safe At This Time Diet: regular during the past year weight has: remained stable Assistive Devices: Walker Results & Data Vital Signs (Past 12 Hours) Vital Signs Temp Pulse Resp BP BP Pulse Ox O2 Del Method 11/01/23 11:50 36.9 C 97 H 18 106/57 L 105/61 97 Nasal Cannula 11/01/23 08:00 Nasal Cannula 11/01/23 07:00 37.0 C 105 H 18 98/64 L 98 Nasal Cannula 11/01/23 04:09 93/64 L 11/01/23 03:17 36.7 C 115 H 17 82/53 L 95 Nasal Cannula O2 Flow Rate 11/01/23 11:50 2 11/01/23 08:00 2 11/01/23 07:00 2 11/01/23 04:09 11/01/23 03:17 1 PG Care Time/CCT Total # of Minutes Spent Total Time Spent with Patient: Total time spent is greater than 50% in coordination of care (as documented) at patient's floor/unit and/or counseling patient: Coding Level of Care Code 08470 INT INP/OBS CARE 1/40MIN
[2023-11-01 14:25] LABS: Folate (Folic Acid),Ser orPlas 9.37 ng/ml (>5.38)
[2023-11-01 15:48] LABS: BUN Creatinine Ratio 28.4 (10-20); Calcium 7.6 mg/dl (8.6-10.3); Creatinine Clr Calc Pharmacy 60.1 ml/min; Est GFR (African American) 83.5 ml/min; Est GFR (Non-African American) 72.1 ml/min
[2023-11-01] MEDS: oxyCODONE HCL IR 5 MG TAB (IMMEDIATE RELEASE) PO PRN (15:54)
[2023-11-01] MEDS ORDERED: HYDROCORTISONE HC 2.5% CRM 30GM TUBE EXT PRN (17:53)
[2023-11-02 06:46] LABS: Hematocrit (blood only) 27.3 % (37.0-47.0); Hemoglobin 8.4 g/dl (12.0-16.0); Mean Corpuscular Hemoglobin 29.4 pg (25.0-34.0); Mean Corpuscular Hgb Conc 30.8 g/dL (32.0-36.0); Mean Corpuscular Volume 95.5 fL (80.0-100.0); Mean Platelet Volume 9.7 fL (9.4-12.4); Platelet Count 219 K/uL (130-400); RDW Standard Deviation 57.2 fL (36.4-46.3); Red Blood Count 2.86 M/uL (4.20-5.40); White Blood Count 6.85 K/ul (4.8-10.8)
[2023-11-02 06:49] LABS: INR 1.3 (0.9-1.1); Prothrombin Time 14.2 Seconds (9.0-12.0)
[2023-11-02 07:16] LABS: Calcium 7.8 mg/dl (8.6-10.3); Creatinine Clr Calc Pharmacy 54.5 ml/min; Est GFR (African American) 74.5 ml/min; Est GFR (Non-African American) 64.3 ml/min; Magnesium 1.9 mg/dl (1.7-2.4); Potassium 3.6 mmol/L (3.5-5.1)
[2023-11-02] MEDS: Heparin IV Adult Wt-Based Low-Dose *NO* INITIAL Bolus Protocol IV SCH (09:01)
[2023-11-02] MEDS: HEPARIN SODIUM/DEXTROSE 25,000 UNITS/500 ML BAG IV SCH (09:05)
--- NOTE | 2023-11-02 12:45 | Hospitalist Progress Note ---
Date of Service November 02, 2023 Assessment & Plan (1) Cellulitis of lower extremity: (2) Tachycardia: (3) Paroxysmal SVT (supraventricular tachycardia): (4) Elevated troponin: (5) Elevated INR: (6) emt intermediate current use of anticoagulant therapy: (7) Protein C deficiency: (8) History of DVT (deep vein thrombosis): (9) Chronic pain syndrome: (10) Edenilson-Danlos syndrome: (11) Chronic heart failure with preserved ejection fraction (HFpEF): (12) Chronic hypotension: (13) Hypothyroidism: (14) Restless leg syndrome: (15) BRANDIE (obstructive sleep apnea): Plan: Ms. Oneal is a 72-year-old woman who has significant past medical history of chronic diastolic CHF, history of PSVT, HTN, thoracic aortic aneurysm, Edenilson- Danlos syndrome, secondary hyperparathyroidism, hypothyroidism, hyperlipidemia, BRANDIE on CPAP, asthma, vitamin D deficiency, GERD, history of diverticulitis with colon perforation, RLS, fibromyalgia, chronic pain syndrome, hypercoagulability, history of gastric bypass, depression, history of PTSD, history of PE who presented to ED for worsening leg swelling and admitted for concern for sepsis. On 10/30, OP notes reviewed where is was noted that the leg swelling is a chronic concern "Seen in clinic a month ago, lower legs were red and flaky with no open areas. Notes that they have gotten more swollen, have been weeping and are more painful" as per visit on 10/[address] Brock OP clinic visit. Has been trying to follow with OMFS as she is suppose to undergo extraction of her teeth due to hopeful shoulder replacement/repair. She notes the left side is much more painful and swollen than usual. Seems last follow up with Cardiology in 06/2023.--during that visit weight was noted to be 75.2 Kg and discharge weight from 07/2023 at 71 kg. Given review, presentation seemed to be exacerbated by heart failure with areas that appear to be superficial cellulitis, in addition to possible dental infection. *Cardiology evaluated patient with medication adjustments noted below. INR subtherapeutic with initiation of heparin drip this morning *Continue management of acute HFpEF and infection to optimize for OR for dental extraction. #Hemorrhoids FOBT ordered by nursing, positive iso of hemorrhoids bleeding -trend cbc hydrocortisone prn #Sepsis, multifactorial #Chronic lymphedema with superimposed cellulitis #Periapical abscess Meet sepsis criteria by leukocytosis, tachycardia, as well as presumed sources of infecion ER afebrile, P: 105, R: 18, BP 95/66, 98% on room air. WBC: 15, lactate: 1.3, procalcitonin: 1.8. UA unremarkable. CXR without infiltrate. Blood cultures NGTD, s/p CTX and Daptomycin in ED In ER given 1L NSS, Rocephin, daptomycin Transitioned to Unasyn on 11/01 -MRSA NARE negative, d/c daptomycin Monitor on telemetry #Atrial fibrillation with RVR #History of PSVT On warfarin for AC -held at this time Metoprolol was ordered daily, rates remain elevated, will increase home tatrate to BID pending further card recommendations -Continue on metoprolol 12.5 QID at this time CTM on telemetry #Acute on Chronic Hear Failure with preserved EF Home torsemide held, initial concern for continued diuersis on admission given ill presentation; however, exam of lower extremities reveals profound edema, which is more likely 2/2 heart failure exacerbated by the skin weeping/tears resulting in overlying cellulitis. Profoundly pitting edema, with dusky discoloration Too tender to touch for ABIs exacerbation supported by BNP of 1099 -Hold PO torsemide 40mg daily Continue lasix IV 40 daily at this time -Notable improvement in BLE edema Cardiology consult for optimization as OMFS will be consulted for potential dental extraction during this admission Reviewed from 10/30 note: "If vital signs remain similar, I think she would tolerate oral surgery when INR allows. I would however avoid administering vitamin K in the absence of surgical emergency given atrial fibrillation and VTE history and allow her INR to come down spontaneously." Replace potassium PO for goal>4 Patient stable for OR on saturday #Elevated troponin, likely demand iso RVR and heart failure exacerbation *resolved Elevated troponin: 51--> 52.9--> 32.5 #Left facial swelling and tenderness #Poor dentition #Hematoma of anterior plate Followed Dr. Mcqueen 09/25 who recommends removal of all fractured/infected teeth. Per notes: "following teeth are decayed and fractured and removal is indicated SHANTELL:4,5,6,8,9,11,12,20,22,23,24,26,30--14 teeth" CT facial bones given swelling to assess degree of infection based upon visible swelling -Will follow up on results, contact Dr. Mcqueen and hold warfain--transition to heparin drip -Dr Mcqueen to perform extraction contingent upon INR, will avoid vitamin K given hx Plan for Saturday, hold heparin at 4am on 11/02 #Chronic Hypotension #History of POTS Increased midodrine to 5mg TID--now 7.5mg TID per cards #Prior PE/DVT #Protein C deficiency #Supratherapeutic INR, improved INR: 4.0, now 2.9 -Plan for heparin when INR <2.0, given plan for possible OFMS given notable swelling of left face #Parkinson Disease #RLS Continue ropinirole, carbidopa levodopa States uses rollator at baseline PT/OT eval #BRANDIE CPAP as tolerated. Patient states uses intermittently #Acute on Chronic Anemia #Prior gastric bypass history of KASSANDRA, drop from 10 on admission to 8.4, no apparent signs of bleed Hgb: 10.7. Baseline ~10's Anemia labs in am, transfuse < 7 Hemorrhoids present, as above #Chronic Pain #Ehler Danlos syndrome #Chronic R shoulder dislocation Patient given IV Tylenol and 1 oxycodone in ER continue buprenorphine patch/oxy, lidocaine #Ascending thoracic aortic aneurysm -Reportedly stable, hx measured at measuring 5.1 cm, , noted on ECHO at 4.5cm #Hypothyroid TSH 0.49 Continue synthroid #PTSD #Anxiety Continue mirtazpine and hydroxyzine prn DVT Prophylaxis heparin gtt Full code as per discussion with pt Currently resides at [facility] Follows with Dr Lavern Gomez for routine care Admission and Anticipated Discharge Date Admission Date: October 30, 2023 Subjective NAEO Tearful since she has been in bed and wishes to move more, requesting to transition to bedside chair. She denies chest pain, palpitations, or other acute concerns, but notes that she is eager for her tooth extraction because she feels stuck Physical Exam Constitutional: WD/WN, vitals as above tearful, but otherwise appears much better than prior exam Respiratory: normal respiratory effort, lungs clear to auscultation Skin: significant reduction in lower extremity erythema and tenderness, swelling notably reduced, left leg with bandage in place Results & Data Results & Data Vital Signs (Past 12 Hours) Vital Signs Temp Pulse Pulse Resp BP Pulse Ox O2 Del Method 11/02/23 11:00 36.8 C 67 18 125/71 98 Room Air 11/02/23 08:00 36.8 C 87 20 115/59 L 97 Room Air 11/02/23 07:00 112 H 11/02/23 03:13 36.7 C 90 18 100/68 94 Room Air Laboratory Results Short CBC 11/02/23 Range/Units 06:10 WBC 6.85 (4.8-10.8) K/ul Hgb 8.4 L (12.0-16.0) g/dl Hct 27.3 L (37.0-47.0) % Plt Count 219 (130-400) K/uL BMP 11/01/23 11/02/23 15:06 06:10 Sodium 137 139 Potassium 4.0 3.6 Chloride 107 109 H Carbon Dioxide 23 24 BUN 23 24 H Creatinine 0.81 0.89 Glucose 155 H 176 H Calcium 7.6 L 7.8 L Medications Administered Home Medications Medication Instructions Recorded Confirmed Last Taken atorvastatin 20 mg tablet 20 mg PO .@79901/09/22 10/30/23 12/10/22 buprenorphine 15 mcg/hour weekly 1 patch topical WK 01/09/22 10/30/23 10/24/23 transdermal patch carbidopa 25 mg-levodopa 100 mg 1 tab PO .0800,1200,1600,199901/09/22 10/30/23 10/30/23 tablet fluticasone propionate 50 2 spray intranasal .@799,199901/09/22 10/30/23 12/10/22 mcg/actuation nasal spray,suspension (Flonase Allergy Relief) hydroxyzine HCl 25 mg tablet 25 mg PO QID PRN ANXIETY/ITCHING 01/09/22 10/30/23 Unknown levothyroxine 50 mcg tablet 50 mcg PO .@79901/09/22 10/30/23 12/10/22 montelukast 10 mg tablet 10 mg PO .@199901/09/22 10/30/23 12/09/22 Saccharomyces boulardii 250 mg 250 mg PO .@799,199910/03/22 10/30/23 12/10/22 08:00 capsule (Florastor) warfarin 4 mg tablet 4 mg PO UD 10/03/22 10/30/2323 acetaminophen 500 mg tablet 1,000 mg PO Q8H PRN TEMP >100F/PAIN 12/10/22 10/30/23 Unknown (Tylenol Extra Strength) loperamide 2 mg tablet 2 mg PO Q6H PRN Diarrhea 12/10/22 10/30/23 Unknown metoprolol tartrate 25 mg tablet 25 mg PO .@79912/10/22 10/30/23 12/10/22 mirtazapine 30 mg tablet 30 mg PO .@199912/10/22 10/30/23 12/09/22 ergocalciferol (vitamin D2) 25,000 50,000 unit PO .WED@79903/07/23 10/30/23 Unknown unit capsule omeprazole 20 mg tablet,delayed 40 mg PO .@79907/29/23 10/30/23 Unknown release ropinirole 5 mg tablet 2.5 mg PO .@0800,1500,199907/29/23 10/30/23 Unknown torsemide 20 mg tablet 40 mg PO .@79907/29/23 10/30/23 Unknown warfarin 6 mg tablet 6 mg PO UD 07/29/23 10/30/23 Unknown potassium chloride 20 mEq oral 20 meq PO DAILY #30 ea 07/31/23 10/30/23 Unknown packet cephalexin 500 mg capsule 500 mg PO BID 10/30/23 10/30/23 Unknown midodrine 2.5 mg tablet 3.75 mg PO TID 10/30/23 10/30/23 Unknown Active Medications Generic Name Dose Route Start Last Admin Trade Name Carlene PRN Reason Stop Dose Admin Acetaminophen 1,000 mg 10/31/23 01:00 11/02/23 08:40 Acetaminophen 500 Mg Tab PO 11/30/23 00:59 1,000 mg Q8H ASHUTOSH Administration Atorvastatin Calcium 20 mg 10/30/23 21:15 11/02/23 08:33 Atorvastatin 20 Mg Tab PO 11/29/23 21:14 20 mg DAILY@0800 ASHUTOSH Administration Buprenorphine HCl 3 patch 10/31/23 09:00 10/31/23 13:23 Buprenorphine 5 Mcg/Hr Tdsy TD 11/30/23 08:59 3 patch Th@0900 ASHUTOSH Administration Carbidopa/Levodopa 1 tab 10/30/23 21:15 11/02/23 12:36 Carbidopa/Levodopa 25/100mg Tab PO 11/29/23 21:14 1 tab 0800,1200,1600,1999 ASHUTOSH Administration Fluticasone Propionate 2 sprays 10/30/23 21:15 11/02/23 08:35 Fluticasone Propionate Na Spr 16 Gm Btl ELYSE 11/29/23 21:14 2 sprays BID@08,1999 ASHUTOSH Administration Furosemide 40 mg 10/31/23 16:00 11/02/23 08:34 Furosemide 40 Mg/4 Ml Vial IV 11/30/23 15:59 40 mg DAILY ASHUTOSH Administration Piperacillin Sod/Tazobactam 100 mls @ 25 mls/hr 10/31/23 03:00 11/02/23 12:36 Sod 4.5 gm/ Dextrose IV 11/07/23 02:59 25 mls/hr Q8H ASHUTOSH Administration Protocol Iron Sucrose 300 mg/ Sodium 265 mls @ 176.667 mls/hr 11/01/23 09:00 11/02/23 11:16 Chloride IV 11/03/23 10:29 Infused DAILY ASHUTOSH Infusion Heparin Sodium/Dextrose 25,000 units in 500 mls @ 15 mls/hr 11/02/23 08:15 11/02/23 09:05 Heparin Sodium/Dextrose IV 12/02/23 08:14 750 units/hr .Q24H ASHUTOSH 15 mls/hr Administration Protocol 750 UNITS/HR Levothyroxine Sodium 50 mcg 10/31/23 06:30 11/02/23 05:52 Levothyroxine Sodium 50 Mcg Tablet PO 11/30/23 06:29 50 mcg DAILYBB ASHUTOSH Administration Metoprolol Tartrate 12.5 mg 10/31/23 21:00 11/02/23 12:36 Metoprolol Tartrate 25 Mg Tab PO 11/30/23 20:59 12.5 mg QID ASHUTOSH Administration Midodrine 7.5 mg 11/01/23 08:00 11/02/23 12:36 Midodrine Hcl 2.5 Mg Tab PO 12/01/23 07:59 7.5 mg TID@0800,1300,1800 ASHUTOSH Administration Mirtazapine 30 mg 10/30/23 21:15 11/01/23 19:48 Mirtazapine Tab 15 Mg Tab PO 11/29/23 21:14 30 mg DAILY@1999 ASHUTOSH Administration Miscellaneous 1 each 10/31/23 08:00 11/02/23 08:35 Check Buprenorphine Patch N/A 11/30/23 07:59 1 each QS ASHUTOSH Administration Miscellaneous 1 each 10/31/23 08:59 10/31/23 08:15 Remove & Waste Butrans Patch 1 Ea Ea N/A 11/30/23 08:58 1 each Th@0859 ASHUTOSH Administration Montelukast Sodium 10 mg 10/30/23 21:15 11/01/23 19:49 Montelukast Sodium 10 Mg Tablet PO 11/29/23 21:14 10 mg DAILY@1999 ASHUTOSH Administration Oxycodone HCl 5 mg 11/01/23 15:32 11/02/23 12:41 Oxycodone Hcl Ir 5 Mg Tab (Immediate Release) PO 11/15/23 15:31 5 mg Q4H PRN Administration Severe Pain (Scale 7, 8, 9,10) Pantoprazole Sodium 40 mg 10/31/23 08:00 11/02/23 08:34 Pantoprazole 40 Mg Tab PO 11/30/23 07:59 40 mg DAILY@0800 ASHUTOSH Administration Potassium Chloride 20 meq 10/31/23 17:00 11/02/23 08:35 Potassium Chloride Pwd 20 Meq Pack PO 11/30/23 16:59 20 meq DAILY ASHUTOSH Administration Ropinirole HCl 2.5 mg 10/30/23 21:15 11/02/23 08:34 Ropinirole Hcl 1 Mg Tablet PO 11/29/23 21:14 2.5 mg TID@0800,1499,1999 ASHUTOSH Administration Saccharomyces Boulardii 250 mg 10/30/23 21:15 11/02/23 08:34 Saccharomyces Boulardii 250 Mg Cap PO 11/29/23 21:14 250 mg DAILY@ ASHUTOSH Administration (13) Hypothyroidism Hypothyroidism type: acquired Qualified Code(s): E03.9 - Hypothyroidism, unspecified
[2023-11-02] MEDS: HEPARIN SOD (PORCINE) 1000 UNIT/ML IV ONE (17:21)
[2023-11-02] MEDS: AMPICILLIN/SULBACTAM SOD 3,000 MG in SODIUM CHLOR 0.9% MINI-B 100 ML IV SCH (17:25)
--- NOTE | 2023-11-02 20:08 | Cardiology Progress Note ---
Date of Service November 02, 2023 Assessment & Plan (1) Cellulitis: (2) Paroxysmal atrial fibrillation: (3) Preoperative cardiovascular examination: Plan Coumadin on hold for anticipated upcoming oral surgery, INR down to 1.3, agree with heparin bridge Midodrine previously titrated to 7.5 mg 3 times daily. Continue metoprolol 12.5 mg 4 times daily. Although digoxin is another option for rate control in the setting of relative low blood pressure, the patient has hyperdynamic left ventricular systolic function with LVEF greater than 70% and therefore this agent would not be ideal. Continue observation for mild aortic root/proximal ascending aorta enlargement, 3.8 and 4.5 cm respectively on echocardiogram this admission. Admission and Anticipated Discharge Date Admission Date: October 30, 2023 Subjective Patient seen in cardiology follow-up of atrial fibrillation and lower extremity cellulitis. She notes no resting shortness of breath. Atrial fibrillation with rate in the 90s to 100 bpm range noted at rest, however rapid ventricular rate of 150 bpm noted with minimal walking to the restroom. Lower extremities still with significant erythema. Physical Exam Constitutional: + ill appearing (Chronically ill in appe arance) and + obese; no acute distress ENMT: Mouth: + poor dentition and + loose teeth Respiratory: no cough Cardiovascular: Rate/Rhythm: + irregularly irregular Heart Sounds: no murmur Extremities: + edema (2+ lower extremity edema, with erythema of the lower legs) Gastrointestinal (Abdomen): normal bowel sounds, soft, nontender, no hepatosplenomegaly Neurologic: PERRL, EOMI, accommodation nl, no face palsy, no dysarthria Results & Data Vital Signs (Past 12 Hours) Vital Signs Temp Pulse Resp BP Pulse Ox O2 Del Method 11/02/23 19:16 36.6 C 80 20 101/78 95 Room Air 11/02/23 16:00 36.6 C 75 16 129/63 97 Room Air 11/02/23 11:00 36.8 C 67 18 125/71 98 Room Air (1) Cellulitis Site of cellulitis: unspecified site Qualified Code(s): L03.90 - Cellulitis, unspecified
[2023-11-03 00:23] LABS: ANTI-Xa, UFH(UnfractionatedHep 0.14 IU/ml (0.3-0.7)
[2023-11-03] MEDS: HEPARIN SOD (PORCINE) 1000 UNIT/ML IV ONE (00:39)
[2023-11-03 07:17] LABS: Hematocrit (blood only) 29.9 % (37.0-47.0); Mean Corpuscular Hemoglobin 29.3 pg (25.0-34.0); Mean Corpuscular Hgb Conc 30.1 g/dL (32.0-36.0); Mean Corpuscular Volume 97.4 fL (80.0-100.0); Mean Platelet Volume 9.5 fL (9.4-12.4); Platelet Count 252 K/uL (130-400); RDW Standard Deviation 57.1 fL (36.4-46.3); Red Blood Count 3.07 M/uL (4.20-5.40); White Blood Count 5.47 K/ul (4.8-10.8)
[2023-11-03 07:27] LABS: BUN Creatinine Ratio 28.4 (10-20); Calcium 8.1 mg/dl (8.6-10.3); Creatinine Clr Calc Pharmacy 59.6 ml/min; Est GFR (African American) 83.5 ml/min; Est GFR (Non-African American) 72.1 ml/min; Potassium 3.9 mmol/L (3.5-5.1)
[2023-11-03 07:47] LABS: ANTI-Xa, UFH(UnfractionatedHep 0.25 IU/ml (0.3-0.7)
[2023-11-03 07:51] LABS: INR 1.1 (0.9-1.1); Prothrombin Time 11.5 Seconds (9.0-12.0)
--- NOTE | 2023-11-03 09:50 | Cardiology Progress Note ---
Date of Service November 03, 2023 Assessment & Plan (1) Cellulitis: (2) Paroxysmal atrial fibrillation: (3) Preoperative cardiovascular examination: Plan Coumadin on hold for anticipated upcoming oral surgery, INR down to 1.3, agree with heparin bridge pending oral surgery. Titrate midodrine to 10 mg 3 times daily. Continue metoprolol 12.5 mg 4 times daily. Although digoxin is another option for rate control in the setting of relative low blood pressure, the patient has hyperdynamic left ventricular systolic function with LVEF greater than 70% and therefore this agent would not be ideal. Continue observation for mild aortic root/proximal ascending aorta enlargement, 3.8 and 4.5 cm respectively on echocardiogram this admission. Admission and Anticipated Discharge Date Admission Date: October 30, 2023 Subjective Patient feeling well at rest. AF with rates 90s at rest, and higher with activity. Physical Exam Constitutional: + ill appearing (Chronically ill in appe arance) and + obese; no acute distress ENMT: Mouth: + poor dentition and + loose teeth Respiratory: no cough Cardiovascular: Rate/Rhythm: + irregularly irregular Heart Sounds: no murmur Extremities: + edema (2+ lower extremity edema, with erythema of the lower legs) Gastrointestinal (Abdomen): normal bowel sounds, soft, nontender, no hepatosplenomegaly Neurologic: PERRL, EOMI, accommodation nl, no face palsy, no dysarthria Results & Data Vital Signs (Past 12 Hours) Vital Signs Temp Pulse Pulse Resp BP Pulse Ox O2 Del Method 11/03/23 07:30 36.5 C 95 H 20 108/67 97 Room Air 11/03/23 05:58 125 H 11/03/23 03:22 36.5 C 85 18 103/73 93 Room Air 11/02/23 22:56 36.4 C L 94 H 18 109/70 100 Room Air 11/02/23 22:00 103 H Laboratory Results Coagulation 11/03/23 Range/Units 06:34 PT 11.5 (9.0-12.0) Seconds CBC 11/03/23 Range/Units 06:34 WBC 5.47 (4.8-10.8) K/ul RBC 3.07 L (4.20-5.40) M/uL Hgb 9.0 L (12.0-16.0) g/dl Hct 29.9 L (37.0-47.0) % Plt Count 252 (130-400) K/uL Comprehensive Metabolic Panel 11/03/23 Range/Units 06:34 Sodium 138 (136-145) mmol/L Potassium 3.9 (3.5-5.1) mmol/L Chloride 107 (98-107) mmol/L Carbon Dioxide 25 (21-32) mmol/L BUN 23 (6-23) mg/dl Creatinine 0.81 (0.6-1.2) mg/dl Glucose 98 (70-99(Fasting)) mg/dl Calcium 8.1 L (8.6-10.3) mg/dl Intake and Output 11/02/23 11/03/23 11/03/23 22:59 06:59 14:59 Intake Total 665.5 / 1672.133 625.633 / 1672.133 17.733 / 17.733 Output Total 450 / 1151 351 / 1151 Balance 215.5 / 521.133 274.633 / 521.133 17.733 / 17.733 Intake: IV 365.5 / 1072.133 325.633 / 1072.133 17.733 / 17.733 Ampicillin/Sulbactam Sod 3,000 216 / 324 108 / 324 mg In Sodium Chlor 0.9% Mini-B 100 ml @ 200 mls/hr IV Q6H [facility], [facility]1983 Rx#:[id number] Heparin Sodium/Dextrose 25,000 149.5 / 367.133 217.633 / 367.133 17.733 / 17.733 units In 500 ml @ 950 UNITS/HR 19 mls/hr IV .Q24H [facility], [facility]1983 Rx#: [id number] Oral 300 / 600 300 / 600 Output: Urine 350 / 700 Urine Amount (Catheter) 450 / 450 Cisneros/Indwelling 450 / 450 # Bowel Movements Other: Weight 81 kg Weight Measurement Method Built in [facility] (1) Cellulitis Site of cellulitis: unspecified site Qualified Code(s): L03.90 - Cellulitis, unspecified
--- NOTE | 2023-11-03 13:13 | Hospitalist Progress Note ---
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 Oneal is a 72-year-old woman who has significant past medical history of chronic diastolic CHF, history of PSVT, HTN, thoracic aortic aneurysm, Edenilson- Danlos syndrome, secondary hyperparathyroidism, hypothyroidism, hyperlipidemia, BRANDIE on CPAP, asthma, vitamin D deficiency, GERD, history of diverticulitis with colon perforation, RLS, fibromyalgia, chronic pain syndrome, hypercoagulability, history of gastric bypass, depression, history of PTSD, history of PE who presented to ED for worsening leg swelling and admitted for concern for sepsis. On 10/30, OP notes reviewed where is was noted that the leg swelling is a chronic concern "Seen in clinic a month ago, lower legs were red and flaky with no open areas. Notes that they have gotten more swollen, have been weeping and are more painful" as per visit on 10/[address] Brock OP clinic visit. Has been trying to follow with OMFS as she is suppose to undergo extraction of her teeth due to hopeful shoulder replacement/repair. She notes the left side is much more painful and swollen than usual. Seems last follow up with Cardiology in 06/2023.--during that visit weight was noted to be 75.2 Kg and discharge weight from 07/2023 at 71 kg. Given review, presentation seemed to be exacerbated by heart failure with areas that appear to be superficial cellulitis, in addition to possible dental infection. *Cardiology evaluated patient with medication adjustments noted below. INR 1.1 this am, continue on heparin bridge with plans to hold heparin at 4 am. *Patient appears euvolemic with noted resolution of profound lower extremity edema. Will hold lasix IV with plans to resume oral regimen post-procedurally. #Sepsis, multifactorial #Chronic lymphedema with superimposed cellulitis #Periapical abscess Meet sepsis criteria by leukocytosis, tachycardia, as well as presumed sources of infecion ER afebrile, P: 105, R: 18, BP 95/66, 98% on room air. WBC: 15, lactate: 1.3, procalcitonin: 1.8. UA unremarkable. CXR without infiltrate. Blood cultures NGTD, s/p CTX and Daptomycin in ED In ER given 1L NSS, Rocephin, daptomycin Transitioned to Unasyn on 11/01 -MRSA NARE negative, d/c daptomycin Monitor on telemetry #Atrial fibrillation with RVR #History of PSVT On warfarin for AC -held at this time Metoprolol was ordered daily, rates remain elevated, will increase home tatrate to BID pending further card recommendations -Continue on metoprolol 12.5 QID at this time CTM on telemetry #Acute on Chronic Hear Failure with preserved EF Home torsemide held, initial concern for continued diuresis on admission given ill presentation; however, exam of lower extremities reveals profound edema, which is more likely 2/2 heart failure exacerbated by the skin weeping/tears resulting in overlying cellulitis. Profoundly pitting edema, with dusky discoloration Too tender to touch for ABIs exacerbation supported by BNP of 1099 -Hold PO torsemide 40mg daily Discontinue lasix IV 40 daily at this time -Resolution in BLE edema, consider resumption of PO post procedurally Cardiology consult for optimization as OMFS will be consulted for potential dental extraction during this admission Reviewed from 10/30 note: "If vital signs remain similar, I think she would tolerate oral surgery when INR allows. I would however avoid administering vitamin K in the absence of surgical emergency given atrial fibrillation and VTE history and allow her INR to come down spontaneously." Replace potassium PO for goal>4 Patient stable for OR on Friday 11/03 #Elevated troponin, likely demand iso RVR and heart failure exacerbation *resolved Elevated troponin: 51--> 52.9--> 32.5, stable #Left facial swelling and tenderness #Poor dentition #Hematoma of anterior plate Followed Dr. Mcqueen 09/25 who recommends removal of all fractured/infected teeth. Per notes: "following teeth are decayed and fractured and removal is indicated SHANTELL:4,5,6,8,9,11,12,20,22,23,24,26,30--14 teeth" CT facial bones given swelling to assess degree of infection based upon visible swelling -Will follow up on results, contact Dr. Mcqueen and hold warfain---continue heparin -Dr Mcqueen to perform extraction contingent upon INR, will avoid vitamin K given hx Plan for Saturday, hold heparin at 4am on 11/02 #Chronic Hypotension #History of POTS Continue increased midodrine at 7.5mg TID per cards #Prior PE/DVT #Protein C deficiency #Supratherapeutic INR, improved INR: 4.0, now 1.1 Continue heparin bridge, consider lovenox bridge for dispo Hold heparin at 4am 11/03 #Parkinson Disease #RLS Continue ropinirole, carbidopa levodopa States uses rollator at baseline PT/OT eval #BRANDIE CPAP as tolerated. Patient states uses intermittently #Acute on Chronic Anemia #Prior gastric bypass history of KASSANDRA, drop from 10 on admission to 8.4, no apparent signs of bleed Hgb: 10.7. Baseline ~10's Anemia labs in am, transfuse < 7 Hemorrhoids present, as above Stable #Hemorrhoids FOBT ordered by nursing, positive iso of hemorrhoids bleeding -trend cbc hydrocortisone prn #Chronic Pain #Ehler Danlos syndrome #Chronic R shoulder dislocation Patient given IV Tylenol and 1 oxycodone in ER continue buprenorphine patch/oxy, lidocaine #Ascending thoracic aortic aneurysm -Reportedly stable, hx measured at measuring 5.1 cm, , noted on ECHO at 4.5cm #Hypothyroid TSH 0.49 Continue synthroid #PTSD #Anxiety Continue mirtazpine and hydroxyzine prn DVT Prophylaxis heparin gtt Full code as per discussion with pt Currently resides at [facility] Follows with Dr Lavern Gomez for routine care Admission and Anticipated Discharge Date Admission Date: October 30, 2023 Subjective NAEO In better spirits today, denies any acute issues. Reports eagerness for tooth extraction tomorrow. States she enjoyed getting to the bedside chair She also reports her legs feeling much improved Physical Exam Constitutional: more conversational today, more positive Respiratory: normal respiratory effort, lungs clear to auscultation Cardiovascular: irregularly irregular, rates in 100s on tele Gastrointestinal (Abdomen): normal bowel sounds, soft, nontender, no hepatosplenomegaly Skin: significant resolution of edema, clean dressing around LLE, violaceous/dusky erythema more consistent with stasis rather than cellulitis at this time Results & Data Results & Data Vital Signs (Past 12 Hours) Vital Signs Temp Pulse Pulse Resp BP Pulse Ox O2 Del Method 11/03/23 11:30 36.8 C 101 H 18 94/59 L 96 Room Air 11/03/23 07:30 36.5 C 95 H 20 108/67 97 Room Air 11/03/23 05:58 125 H 11/03/23 03:22 36.5 C 85 18 103/73 93 Room Air Laboratory Results Short CBC 11/03/23 Range/Units 06:34 WBC 5.47 (4.8-10.8) K/ul Hgb 9.0 L (12.0-16.0) g/dl Hct 29.9 L (37.0-47.0) % Plt Count 252 (130-400) K/uL BMP 11/03/23 06:34 Sodium 138 Potassium 3.9 Chloride 107 Carbon Dioxide 25 BUN 23 Creatinine 0.81 Glucose 98 Calcium 8.1 L Medications Administered Home Medications Medication Instructions Recorded Confirmed Last Taken atorvastatin 20 mg tablet 20 mg PO .@79901/09/22 10/30/23 12/10/22 buprenorphine 15 mcg/hour weekly 1 patch topical WK 01/09/22 10/30/23 10/24/23 transdermal patch carbidopa 25 mg-levodopa 100 mg 1 tab PO .0800,1200,1600,199901/09/22 10/30/23 10/30/23 tablet fluticasone propionate 50 2 spray intranasal .@799,199901/09/22 10/30/23 12/10/22 mcg/actuation nasal spray,suspension (Flonase Allergy Relief) hydroxyzine HCl 25 mg tablet 25 mg PO QID PRN ANXIETY/ITCHING 01/09/22 10/30/23 Unknown levothyroxine 50 mcg tablet 50 mcg PO .@79901/09/22 10/30/23 12/10/22 montelukast 10 mg tablet 10 mg PO .@199901/09/22 10/30/23 12/09/22 Saccharomyces boulardii 250 mg 250 mg PO .@799,199910/03/22 10/30/23 12/10/22 08:00 capsule (Florastor) warfarin 4 mg tablet 4 mg PO UD 10/03/22 10/30/23 12/09/22 acetaminophen 500 mg tablet 1,000 mg PO Q8H PRN TEMP >100F/PAIN 12/10/22 10/30/23 Unknown (Tylenol Extra Strength) loperamide 2 mg tablet 2 mg PO Q6H PRN Diarrhea 12/10/22 10/30/23 Unknown metoprolol tartrate 25 mg tablet 25 mg PO .@79912/10/22 10/30/23 12/10/22 mirtazapine 30 mg tablet 30 mg PO .@199912/10/22 10/30/23 12/09/22 ergocalciferol (vitamin D2) 25,000 50,000 unit PO .WED@79903/07/23 10/30/23 Unknown unit capsule omeprazole 20 mg tablet,delayed 40 mg PO .@79907/29/23 10/30/23 Unknown release ropinirole 5 mg tablet 2.5 mg PO .@0800,1500,199907/29/23 10/30/23 Unknown torsemide 20 mg tablet 40 mg PO .@79907/29/23 10/30/23 Unknown warfarin 6 mg tablet 6 mg PO UD 07/29/23 10/30/23 Unknown potassium chloride 20 mEq oral 20 meq PO DAILY #30 ea 07/31/23 10/30/23 Unknown packet cephalexin 500 mg capsule 500 mg PO BID 10/30/23 10/30/23 Unknown midodrine 2.5 mg tablet 3.75 mg PO TID 10/30/23 10/30/23 Unknown Active Medications Generic Name Dose Route Start Last Admin Trade Name Carlene PRN Reason Stop Dose Admin Acetaminophen 1,000 mg 10/31/23 01:00 11/03/23 09:33 Acetaminophen 500 Mg Tab PO 11/30/23 00:59 1,000 mg Q8H ASHUTOSH Administration Atorvastatin Calcium 20 mg 10/30/23 21:15 11/03/23 09:31 Atorvastatin 20 Mg Tab PO 11/29/23 21:14 20 mg DAILY@0800 ASHUTOSH Administration Buprenorphine HCl 3 patch 10/31/23 09:00 10/31/23 13:23 Buprenorphine 5 Mcg/Hr Tdsy TD 11/30/23 08:59 3 patch Th@0900 ASHUTOSH Administration Carbidopa/Levodopa 1 tab 10/30/23 21:15 11/03/23 09:31 Carbidopa/Levodopa 25/100mg Tab PO 11/29/23 21:14 1 tab 0800,1200,1600,1999 ASHUTOSH Administration Fluticasone Propionate 2 sprays 10/30/23 21:15 11/03/23 09:31 Fluticasone Propionate Na Spr 16 Gm Btl ELYSE 11/29/23 21:14 2 sprays BID@08 ASHUTOSH Administration Heparin Sodium/Dextrose 25,000 units in 500 mls @ 20 mls/hr 11/02/23 08:15 11/03/23 07:51 Heparin Sodium/Dextrose IV 12/02/23 08:14 1,000 units/hr .Q24H ASHUTOSH 20 mls/hr Titration Protocol 1,000 UNITS/HR Ampicillin Sodium/Sulbactam 108 mls @ 200 mls/hr 11/02/23 16:00 11/03/23 10:13 Sodium 3,000 mg/ Sodium IV 11/12/23 15:59 Infused Chloride Q6H ASHUTOSH Infusion Levothyroxine Sodium 50 mcg 10/31/23 06:30 11/03/23 06:10 Levothyroxine Sodium 50 Mcg Tablet PO 11/30/23 06:29 50 mcg DAILYBB ASHUTOSH Administration Metoprolol Tartrate 12.5 mg 10/31/23 21:00 11/03/23 12:49 Metoprolol Tartrate 25 Mg Tab PO 11/30/23 20:59 Not Given QID ASHUTOSH Mirtazapine 30 mg 10/30/23 21:15 11/02/23 20:01 Mirtazapine Tab 15 Mg Tab PO 11/29/23 21:14 30 mg DAILY@1999 ASHUTOSH Administration Miscellaneous 1 each 10/31/23 08:00 11/03/23 09:32 Check Buprenorphine Patch N/A 11/30/23 07:59 1 each QS ASHUTOSH Administration Miscellaneous 1 each 10/31/23 08:59 10/31/23 08:15 Remove & Waste Butrans Patch 1 Ea Ea N/A 11/30/23 08:58 1 each Th@0859 ASHUTOSH Administration Montelukast Sodium 10 mg 10/30/23 21:15 11/02/23 20:01 Montelukast Sodium 10 Mg Tablet PO 11/29/23 21:14 10 mg DAILY@1999 ASHUTOSH Administration Oxycodone HCl 5 mg 11/01/23 15:32 11/03/23 09:39 Oxycodone Hcl Ir 5 Mg Tab (Immediate Release) PO 11/15/23 15:31 5 mg Q4H PRN Administration Severe Pain (Scale 7, 8, 9,10) Pantoprazole Sodium 40 mg 10/31/23 08:00 11/03/23 09:31 Pantoprazole 40 Mg Tab PO 11/30/23 07:59 40 mg DAILY@0800 ASHUTOSH Administration Potassium Chloride 20 meq 10/31/23 17:00 11/03/23 09:31 Potassium Chloride Pwd 20 Meq Pack PO 11/30/23 16:59 20 meq DAILY ASHUTOSH Administration Ropinirole HCl 2.5 mg 10/30/23 21:15 11/03/23 09:31 Ropinirole Hcl 1 Mg Tablet PO 11/29/23 21:14 2.5 mg TID@0800,1499,1999 ASHUTOSH Administration Saccharomyces Boulardii 250 mg 10/30/23 21:15 11/03/23 09:31 Saccharomyces Boulardii 250 Mg Cap PO 11/29/23 21:14 250 mg DAILY@ ASHUTOSH Administration (13) Hypothyroidism Hypothyroidism type: acquired Qualified Code(s): E03.9 - Hypothyroidism, unspecified
[2023-11-03] MEDS: MIDODRINE HCL 10 MG TAB PO SCH (13:19)
[2023-11-03 15:03] LABS: ANTI-Xa, UFH(UnfractionatedHep 0.36 IU/ml (0.3-0.7)
--- NOTE | 2023-11-03 18:33 | Oral/Maxillofacial Progress Nt ---
Date of Service November 03, 2023 Assessment & Plan Admission and Anticipated Discharge Date Admission Date: October 30, 2023 Subjective Mrs Oneal is now cleared for surgery. Her INR is in an acceptable range for the extractions and alveoplasty needed. We will keep her NPO midnight. I will have the OR set her up as an add on tomorrow afternoon for the General anesthesia and necessary surgery. We will sign the consent prior to the surgery, as I reviewed the surgery and all risks in my office and at bedside last weeks. Results & Data Vital Signs (Past 12 Hours) Vital Signs Temp Pulse Resp BP Pulse Ox O2 Del Method 11/03/23 16:51 36.9 C 78 20 102/68 96 Room Air 11/03/23 15:52 Room Air 11/03/23 11:30 36.8 C 101 H 18 94/59 L 96 Room Air 11/03/23 07:30 36.5 C 95 H 20 108/67 97 Room Air PG Care Time/CCT Total # of Minutes Spent Total Time Spent with Patient: Total time spent is greater than 50% in coordination of care (as documented) at patient's floor/unit and/or counseling patient: Coding Level of Care Code None
[2023-11-03] MEDS: hydrOXYzine HCl 25 MG TAB PO PRN (21:30)
[2023-11-04 07:12] LABS: Hematocrit (blood only) 28.2 % (37.0-47.0); Hemoglobin 8.6 g/dl (12.0-16.0); Mean Corpuscular Hemoglobin 29.3 pg (25.0-34.0); Mean Corpuscular Hgb Conc 30.5 g/dL (32.0-36.0); Mean Corpuscular Volume 95.9 fL (80.0-100.0); Mean Platelet Volume 9.5 fL (9.4-12.4); Platelet Count 257 K/uL (130-400); RDW Coefficient of Variation 15.7 % (11.5-14.5); RDW Standard Deviation 55.8 fL (36.4-46.3); Red Blood Count 2.94 M/uL (4.20-5.40); White Blood Count 5.49 K/ul (4.8-10.8)
[2023-11-04 07:33] LABS: BUN Creatinine Ratio 31.5 (10-20); Calcium 7.9 mg/dl (8.6-10.3); Creatinine Clr Calc Pharmacy 66.9 ml/min; Est GFR (African American) 94.7 ml/min; Est GFR (Non-African American) 81.7 ml/min; Magnesium 2.1 mg/dl (1.7-2.4); Phosphorus 2.8 mg/dl (2.5-4.9); Potassium 4.4 mmol/L (3.5-5.1)
--- NOTE | 2023-11-04 10:25 | Anesthesiology Consultation ---
Date of Service November 04, 2023 Assessment & Plan (1) Encounter for pre-operative examination: Chart Review Chart Review: Acceptable Risk for Surgery and Patient NOT seen in Pre Admission Testing Consults Requested none History Surgery Operation Date: 11/04/23 08:20 Proposed Procedures p Facial Incision and Drainage - Raphael Mcqueen DMD s Removal of Multiple Teeth - Raphael Mcqueen DMD Height/Weight Height: 5 ft 1 in Weight: 82.6 kg Allergies Allergy/AdvReac Type Severity Reaction Status Date / Time ammonia Allergy Severe FACE, Verified 09/26/23 10:47 LIPS, TONGUE EDEMA buspirone Allergy Severe NEURO Verified 09/26/23 10:47 COMPLICATIONS duloxetine Allergy Intermediate RASH Verified 09/26/23 10:47 ITCHING adhesive Allergy Mild skin tears Verified 09/26/23 10:47 vancomycin Allergy Unknown ON [facility] Verified 09/26/23 10:47 MED LIST diphenhydramine AdvReac Intermediate RESTLESS Verified 09/26/23 10:47 LEGS gabapentin AdvReac Intermediate MUSCLE Verified 09/26/23 10:47 STIFFNESS lisinopril AdvReac Intermediate cough Verified 09/26/23 10:47 NSAIDS (Non-Steroidal AdvReac Unknown not Verified 09/26/23 10:47 Anti-Inflamma supposed to use-S/P GASTRIC BYPASS venlafaxine AdvReac Unknown AFFECTS Verified 09/26/23 10:47 LEGS Medications Home Medications Medication Instructions Recorded Confirmed Last Taken atorvastatin 20 mg tablet 20 mg PO .@0801/09/22 10/30/23 12/10/22 buprenorphine 15 mcg/hour weekly 1 patch topical WK 01/09/22 10/30/23 10/24/23 transdermal patch carbidopa 25 mg-levodopa 100 mg 1 tab PO .0800,1200,1600,199901/09/22 10/30/23 10/30/23 tablet fluticasone propionate 50 2 spray intranasal .@799,199901/09/22 10/30/23 12/10/22 mcg/actuation nasal spray,suspension (Flonase Allergy Relief) hydroxyzine HCl 25 mg tablet 25 mg PO QID PRN ANXIETY/ITCHING 01/09/22 10/30/23 Unknown levothyroxine 50 mcg tablet 50 mcg PO .@0801/09/22 10/30/23 12/10/22 montelukast 10 mg tablet 10 mg PO .@199901/09/22 10/30/23 12/09/22 Saccharomyces boulardii 250 mg 250 mg PO .@10/03/22 10/30/23 12/10/22 08:00 capsule (Florastor) warfarin 4 mg tablet 4 mg PO UD 10/03/22 10/30/23 12/09/22 acetaminophen 500 mg tablet 1,000 mg PO Q8H PRN TEMP >100F/PAIN 12/10/22 10/30/23 Unknown (Tylenol Extra Strength) loperamide 2 mg tablet 2 mg PO Q6H PRN Diarrhea 12/10/22 10/30/23 Unknown metoprolol tartrate 25 mg tablet 25 mg PO .@79912/10/22 10/30/23 12/10/22 mirtazapine 30 mg tablet 30 mg PO .@199912/10/22 10/30/23 12/09/22 ergocalciferol (vitamin D2) 25,000 50,000 unit PO .WED@79903/07/23 10/30/23 Unknown unit capsule omeprazole 20 mg tablet,delayed 40 mg PO .@79907/29/23 10/30/23 Unknown release ropinirole 5 mg tablet 2.5 mg PO .@08,1500,199907/29/23 10/30/23 Unknown torsemide 20 mg tablet 40 mg PO .@79907/29/23 10/30/23 Unknown warfarin 6 mg tablet 6 mg PO UD 07/29/23 10/30/23 Unknown potassium chloride 20 mEq oral 20 meq PO DAILY #30 ea 07/31/23 10/30/23 Unknown packet cephalexin 500 mg capsule 500 mg PO BID 10/30/23 10/30/23 Unknown midodrine 2.5 mg tablet 3.75 mg PO TID 10/30/23 10/30/23 Unknown Active Medications Generic Name Dose Route Start Last Admin Trade Name Freq PRN Reason Stop Dose Admin Acetaminophen 1,000 mg 10/31/23 01:00 11/04/23 08:54 Acetaminophen 500 Mg Tab PO 11/30/23 00:59 1,000 mg Q8H ASHUTOSH Administration Atorvastatin Calcium 20 mg 10/30/23 21:15 11/04/23 08:55 Atorvastatin 20 Mg Tab PO 11/29/23 21:14 20 mg DAILY@0800 ASHUTOSH Administration Buprenorphine HCl 3 patch 10/31/23 09:00 10/31/23 13:23 Buprenorphine 5 Mcg/Hr Tdsy TD 11/30/23 08:59 3 patch Th@0900 ASHUTOSH Administration Carbidopa/Levodopa 1 tab 10/30/23 21:15 11/04/23 08:55 Carbidopa/Levodopa 25/100mg Tab PO 11/29/23 21:14 1 tab 0800,1200,1600,2000 ASHUTOSH Administration Fluticasone Propionate 2 sprays 10/30/23 21:15 11/04/23 08:56 Fluticasone Propionate Na Spr 16 Gm Btl ELYSE 11/29/23 21:14 2 sprays BID@0800,1999 ASHUTOSH Administration Hydroxyzine HCl 25 mg 10/30/23 20:54 11/03/23 21:30 Hydroxyzine Hcl 25 Mg Tab PO 11/29/23 20:53 25 mg QID PRN Administration ANXIETY/ITCHING Ampicillin Sodium/Sulbactam 108 mls @ 200 mls/hr 11/02/23 16:00 11/04/23 09:45 Sodium 3,000 mg/ Sodium IV 11/12/23 15:59 Infused Chloride Q6H ASHUTOSH Infusion Levothyroxine Sodium 50 mcg 10/31/23 06:30 11/04/23 06:14 Levothyroxine Sodium 50 Mcg Tablet PO 11/30/23 06:29 50 mcg DAILYBB ASHUTOSH Administration Metoprolol Tartrate 12.5 mg 10/31/23 21:00 11/04/23 08:55 Metoprolol Tartrate 25 Mg Tab PO 11/30/23 20:59 12.5 mg QID ASHUTOSH Administration Midodrine 10 mg 11/03/23 13:00 11/04/23 08:55 Midodrine Hcl 10 Mg Tab PO 12/03/23 12:59 10 mg TID@0800,1300,1800 ASHUTOSH Administration Mirtazapine 30 mg 10/30/23 21:15 11/03/23 19:58 Mirtazapine Tab 15 Mg Tab PO 11/29/23 21:14 30 mg DAILY@1999 ASHUTOSH Administration Miscellaneous 1 each 10/31/23 08:00 11/04/23 08:55 Check Buprenorphine Patch N/A 11/30/23 07:59 1 each QS ASHUTOSH Administration Miscellaneous 1 each 10/31/23 08:59 10/31/23 08:15 Remove & Waste Butrans Patch 1 Ea Ea N/A 11/30/23 08:58 1 each Th@0859 ASHUTOSH Administration Montelukast Sodium 10 mg 10/30/23 21:15 11/03/23 19:59 Montelukast Sodium 10 Mg Tablet PO 11/29/23 21:14 10 mg DAILY@1999 ASHUTOSH Administration Oxycodone HCl 5 mg 11/01/23 15:32 11/04/23 01:56 Oxycodone Hcl Ir 5 Mg Tab (Immediate Release) PO 11/15/23 15:31 5 mg Q4H PRN Administration Severe Pain (Scale 7, 8, 9,10) Pantoprazole Sodium 40 mg 10/31/23 08:00 11/04/23 08:55 Pantoprazole 40 Mg Tab PO 11/30/23 07:59 40 mg DAILY@0800 ASHUTOSH Administration Potassium Chloride 20 meq 10/31/23 17:00 11/04/23 08:55 Potassium Chloride Pwd 20 Meq Pack PO 11/30/23 16:59 20 meq DAILY ASHUTOSH Administration Ropinirole HCl 2.5 mg 10/30/23 21:15 11/04/23 08:55 Ropinirole Hcl 1 Mg Tablet PO 11/29/23 21:14 2.5 mg TID@0800,1499,1999 ASHUTOSH Administration Saccharomyces Boulardii 250 mg 10/30/23 21:15 11/04/23 08:55 Saccharomyces Boulardii 250 Mg Cap PO 11/29/23 21:14 250 mg DAILY@799,1999 ASHUTOSH Administration Past Medical History Medical History Elevated troponin Hx of blood clots Thyroid disease Skin cancer Head injury Recurrent falls Parkinson disease Acute kidney injury Acute exacerbation of chronic low back pain Opioid dependence Fibromyalgia Abdominal hernia Coagulopathy Hypokalemia Weakness Anemia History of DVT (deep vein thrombosis) chronic anticoagulation Protein C deficiency Dysphagia History of colon polyps Difficult intravenous access History of intestinal obstruction Bulging of intervertebral disc Osteoporosis Osteoarthritis Renal cyst History of colon polyps Gastroparesis Thyroid nodule Hearing deficit ADHD Peripheral neuropathy Tachycardia Hyperlipidemia Claustrophobia Sleep apnea intermittently able to tolerate CPAP Asthma uses PRN INH 3-4 x wk GERD (gastroesophageal reflux disease) Hypothyroidism Restless leg syndrome Edenilson-Danlos syndrome Pulmonary embolism 07/2018 - treated w/ lovenox - unk etiology Thoracic aortic aneurysm follows w/ Dr. Arredondo - evaluated within last 6 mo ISAC (generalized anxiety disorder) Past Family History Family History Uncle Stomach cancer Cancer Family/Other Breast cancer Grandfather Cancer Mother Heart disease Hypertension Stroke Grandmother Heart disease Stroke Other No family history of adverse response to anesthesia No pertinent family history in first degree relatives Past Surgical History Surgical History Hx of melanoma excision shoulder Self extubation attempted post gastric bypass History of laparotomy History of left knee replacement History of intestinal surgery History of right knee joint replacement History of arthroscopy of left knee History of abdominoplasty + hernia repair History of bilateral breast reduction surgery History of cholecystectomy History of tonsillectomy History of gastric bypass History of esophagogastroduodenoscopy (EGD) History of colonoscopy 2019 Status post biopsy of thyroid gland benign S/P hysterectomy Social History Smoking Status: Never smoker Do You Dip or Chew Tobacco: No Hx Alcohol Use: Yes Alcohol type: wine and hard liquor alcohol intake frequency: holidays/special occasions only Hx Substance Use: No substance use type: does not use Physical Exam Vital Signs Last Vital Signs Temp 97.9 F 11/04/23 08:00 Pulse 89 11/04/23 08:00 Resp 17 11/04/23 08:00 BP 111/76 11/04/23 08:00 Pulse Ox 96 11/04/23 08:00 O2 Del Method Room Air 11/04/23 08:00 O2 Flow Rate 2 11/01/23 20:46 Testing Laboratory Results 11/04/23 05:57 11/04/23 05:57 PT 11.0 Seconds (9.0-12.0) 11/04/23 05:57 INR 1.0 (0.9-1.1) 11/04/23 05:57 APTT 57 Seconds (21-31) H 10/30/23 14:52 Urine Color Yellow 10/30/23 18:02 Urine Appearance Clear (Clear) 10/30/23 18:02 Urine pH 5.5 (4.5-7.5) 10/30/23 18:02 Ur Specific Bogart 1.021 (1.000-1.030) 10/30/23 18:02 Urine Protein Trace (Negative) H 10/30/23 18:02 Urine Glucose (UA) Negative (Negative) 10/30/23 18:02 Urine Ketones Negative (Negative) 10/30/23 18:02 Urine Nitrite Negative (Negative) 10/30/23 18:02 Ur Leukocyte Esterase Negative (Negative) 10/30/23 18:02 Urine WBC (Auto) 0-5 /hpf (0-5) 10/30/23 18:02 Urine RBC (Auto) 0-2 /hpf (0-2) 10/30/23 18:02 U Hyaline Cast (Auto) 0-2 /lpf (0-2) 10/30/23 18:02 U Epithel Cells (Auto) 0-2 /hpf (0-2) 10/30/23 18:02 Urine Bacteria (Auto) None Seen (None Seen) 10/30/23 18:02 10/30/23 17:15 Aerobic Blood Culture - Preliminary Blood No growth in Aerobic bottle after 48 hours. Anaerobic Blood Culture - Preliminary No growth in Anaerobic bottle after 48 hours. 10/30/23 17:24 Aerobic Blood Culture - Preliminary Blood No growth in Aerobic bottle after 48 hours. Anaerobic Blood Culture - Final Electrocardiogram Date: 11/01/23 Findings: + AFIB @ and + RBBB
--- NOTE | 2023-11-04 12:42 | Cardiology Progress Note ---
Date of Service November 04, 2023 Assessment & Plan (1) Cellulitis: (2) Paroxysmal atrial fibrillation: (3) Preoperative cardiovascular examination: Plan Warfarin on hold currently for anticipated oral surgery. INR down to 1.0 today. Heparin bridging with resumption of warfarin for goal INR of 2.0-3.0 postoperatively. Continue midodrine to 10 mg 3 times daily. Continue metoprolol 12.5 mg 4 times daily. Repeat echocardiogram in 1 year for surveillance of mild aortic root/proximal ascending aorta enlargement, 3.8 and 4.5 cm respectively on echocardiogram this admission. Admission and Anticipated Discharge Date Admission Date: October 30, 2023 Subjective Patient seen and examined at the bedside. Lower extremity edema improving. Telemetry feels atrial fibrillation heart rate 90-100 bpm. Denies palpitations or lightheadedness. No chest discomfort or unusual shortness of breath. Review of Systems Review of Systems: All systems reviewed & are unremarkable except as noted in Subjective Results & Data Vital Signs (Past 12 Hours) Vital Signs Temp Pulse Pulse Resp BP BP Pulse Ox 11/04/23 12:14 36.7 C 93 H 16 100/69 97 11/04/23 11:00 103 H 11/04/23 08:00 36.6 C 89 17 111/76 96 11/04/23 03:43 36.5 C 81 20 124/86 97 O2 Del Method 11/04/23 12:14 Room Air 11/04/23 11:00 11/04/23 08:00 Room Air 11/04/23 03:43 Room Air Laboratory Results Coagulation 11/04/23 Range/Units 05:57 PT 11.0 (9.0-12.0) Seconds CBC 11/04/23 Range/Units 05:57 WBC 5.49 (4.8-10.8) K/ul RBC 2.94 L (4.20-5.40) M/uL Hgb 8.6 L (12.0-16.0) g/dl Hct 28.2 L (37.0-47.0) % Plt Count 257 (130-400) K/uL Comprehensive Metabolic Panel 11/04/23 Range/Units 05:57 Sodium 138 (136-145) mmol/L Potassium 4.4 (3.5-5.1) mmol/L Chloride 108 H (98-107) mmol/L Carbon Dioxide 26 (21-32) mmol/L BUN 23 (6-23) mg/dl Creatinine 0.73 (0.6-1.2) mg/dl Glucose 92 (70-99(Fasting)) mg/dl Calcium 7.9 L (8.6-10.3) mg/dl Intake and Output 11/03/23 11/04/23 11/04/23 22:59 06:59 14:59 Intake Total 750.333 / 1540.200 284 / 1540.200 108 / 108 Output Total 500 / 800 300 / 800 Balance 250.333 / 740.200 -16 / 740.200 108 / 108 Intake: IV 325.333 / 1115.200 284 / 1115.200 108 / 108 Ampicillin/Sulbactam Sod 3,000 216 / 432 108 / 432 108 / 108 mg In Sodium Chlor 0.9% Mini-B 100 ml @ 200 mls/hr IV Q6H [facility] Rx#:[id number] Heparin Sodium/Dextrose 25,000 109.333 / 418.200 176 / 418.200 units In 500 ml @ 1,000 UNITS/ HR 20 mls/hr IV .Q24H [facility] Rx#: [id number] Oral 425 / 425 0 / 425 Output: Urine Amount (Catheter) 500 / 800 300 / 800 Cisneros/Indwelling 500 / 800 300 / 800 Other: Weight 82.6 kg 82.6 kg Weight Measurement Method Built in [facility] Patient Weight 11/05/23 06:59 Weight 82.6 kg (1) Cellulitis Site of cellulitis: unspecified site Qualified Code(s): L03.90 - Cellulitis, unspecified
[2023-11-04] MEDS ORDERED: ONDANSETRON INJ 2 MG/ML 2 ML VIAL ONE (13:36)
[2023-11-04] MEDS ORDERED: DEXAMETHASONE SOD INJ 4 MG/ML VIAL ONE (13:36)
[2023-11-04] MEDS ORDERED: LIDOCAINE 2% 2 ML VIAL/AMP(20MG/ML) INFIL ONE (13:36)
[2023-11-04] MEDS ORDERED: PROPOFOL IV EMULSION 10 MG/ML 20 ML VIAL IV ONE (13:36)
[2023-11-04] MEDS ORDERED: ROCURONIUM BROMIDE 10 MG/ML 5 ML VIAL IV ONE (13:36)
[2023-11-04] MEDS ORDERED: fentaNYL citrate PF 100 MCG/2 ML VIAL ONE ×3 (13:37→17:18)
[2023-11-04] MEDS ORDERED: ATROPINE SULFATE 0.1 MG/ML 10ML SYR IV PRN (13:51)
[2023-11-04] MEDS ORDERED: ONDANSETRON INJ 2 MG/ML 2 ML VIAL IV PRN (13:51)
[2023-11-04] MEDS ORDERED: ePHEDrine sulfate 50 MG/ML AMP IV PRN (13:51)
--- NOTE | 2023-11-04 14:16 | History & Physical Bridge Note ---
Date of Service November 04, 2023 History & Physical Bridge Note I have examined the patient, reviewed the History & Physical and in the interval since the performance of the History & Physical I have noted the following changes of clinical significance: no changes noted Now that she is medically cleared we will do the I&D and extractions OK for planned surgery today
[2023-11-04] MEDS: CHLORHEXIDINE GLUCONATE 0.12% 480 ML MT ONE (15:07)
[2023-11-04] MEDS: SURGICEL ABSORB HEMOSTAT 2IN X 14IN TOP ONE (15:08)
[2023-11-04] MEDS ORDERED: ESMOLOL HCL INJ 10 MG/ML 10ML VIAL IV ONE (15:22)
[2023-11-04] MEDS ORDERED: LABETALOL HCL IV 5 MG/ML 20ML IV ONE (15:32)
[2023-11-04] MEDS ORDERED: SUGAMMADEX SODIUM 200 MG/2 ML VIAL IV ONE (16:07)
[2023-11-04] MEDS: BUPIVACAINE/EPINEPHRINE 0.5% 1:200,000 1.8 ML CARP ONE (16:11)
[2023-11-04] MEDS: fentaNYL citrate PF 100 MCG/2 ML VIAL IV PRN (16:35)
--- NOTE | 2023-11-04 16:40 | Post Operative Brief Note ---
PG Immediate Post Op with CF Date of Surgery November 04, 2023 Pre & Post Diagnosis Operation Date: 11/04/23 08:20 Pre-Op Diagnosis: fractured teeth Post-Op Diagnosis: fractured teeth I identified the patient and participated in the time-out.: Yes Procedure Operation Date: 11/04/23 08:20 Actual Procedures p Facial Incision and Drainage and removal of multiple teeth(Not Applicable) - Raphael Mcqueen DMD Surgeon Raphael Mcqueen DMD Elephant Tamer none Estimated Blood Loss 5 Findings Consistent with Post-Op Diagnosis acutely infected teeth, gums and soft tissue All teeth fractured or grossly decayed Soft tissue infected and boggy Specimens Specimen Description: No specimen per surgeon Anesthesia Type General Complications very difficult case secondary to the grossly infected and fractured teeth. Tissue was grossly infected and very friable not hold sutures very well Disposition Accompanied Patient To Recovery: Yes
[2023-11-04] MEDS: METOPROLOL TARTRATE 1 MG/ML VIAL IV STA (16:58)
--- NOTE | 2023-11-04 17:03 | Hospitalist Progress Note ---
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 Oneal is a 72-year-old woman who has significant past medical history of chronic diastolic CHF, history of PSVT, HTN, thoracic aortic aneurysm, Edenilson- Danlos syndrome, secondary hyperparathyroidism, hypothyroidism, hyperlipidemia, BRANDIE on CPAP, asthma, vitamin D deficiency, GERD, history of diverticulitis with colon perforation, RLS, fibromyalgia, chronic pain syndrome, hypercoagulability, history of gastric bypass, depression, history of PTSD, history of PE who presented to ED for worsening leg swelling and admitted for concern for sepsis. On 10/30, OP notes reviewed where is was noted that the leg swelling is a chronic concern "Seen in clinic a month ago, lower legs were red and flaky with no open areas. Notes that they have gotten more swollen, have been weeping and are more painful" as per visit on 10/[address] Brock OP clinic visit. Has been trying to follow with OMFS as she is suppose to undergo extraction of her teeth due to hopeful shoulder replacement/repair. She notes the left side is much more painful and swollen than usual. Sepsis, multifactorial Poor dentition Hematoma of anterior plate Chronic lymphedema with superimposed cellulitis Periapical abscess --Facial CT:There is a 3 mm periapical lucency at ADA 27 demonstrating focal cortical breakthrough at the buccal surface. However, no soft tissue abscess identified. Multiple dental caries seen within the residual teeth. -Lactate: 1.3, procalcitonin: 1.8 -Blood cultures negative to date MRSA nares negative --Ceftriaxone, daptomycin>> transition to Unasyn --S/P Facial Incision and Drainage and removal of multiple teeth by on 11/04/23 Appreciate oral maxillary surgery input Atrial fibrillation with RVR H/O PSVT On warfarin for AC -held currently Continue metoprolol 12.5 mg 4 times daily per cardiology Appreciate cardiology input Resume anticoagulation once cleared by surgery Acute on Chronic Hear Failure with preserved EF Home torsemide held BNP 1099 -Hold PO torsemide 40mg daily --IV Lasix discontinued Appreciate cardiology input Resume home torsemide as able Elevated troponin, likely demand iso RVR and heart failure exacerbation Elevated troponin: 51--> 52.9--> 32.5, stable Monitor Chronic Hypotension H/O POTS Continue increased midodrine at 10mg TID per cards H/O Prior PE/DVT H/O Protein C deficiency Supratherapeutic INR on presentation INR 1.0 today Coumadin held IV heparin held for procedure Resume anticoagulation as able once cleared by surgery Monitor INR Parkinson Disease RLS Continue ropinirole, carbidopa levodopa States uses rollator at baseline PT/OT eval BRANDIE CPAP as tolerated. Patient states uses intermittently Acute on Chronic Anemia H/O Gastric bypass H/O KASSANDRA Baseline Hb ~10's Iron, transferrin levels low Normal B12, folate levels Will give IV Venofer Start on iron supplements Hemorrhoids +FOBT Monitor CBC Hydrocortisone PRN Chronic Pain Ehler Danlos syndrome Chronic R shoulder dislocation continue buprenorphine patch/oxy, lidocaine Ascending thoracic aortic aneurysm -Reportedly stable, hx measured at measuring 5.1 cm, , noted on ECHO at 4.5cm Continue home medications Hypothyroidism TSH 0.49 Continue levothyroxine PTSD Anxiety Continue mirtazapine and hydroxyzine prn DVT Px: Heparin gtt--held for surgery Code Status Full code Disposition PT OT prior to discharge Admission and Anticipated Discharge Date Admission Date: October 30, 2023 Subjective Patient is seen and examined at bedside States having some left leg pain Plan for facial I&D today Denies any chest pain, dyspnea, nausea, vomiting, abdominal pain No other complaints Review of Systems Review of Systems: All systems reviewed & are unremarkable except as noted in Subjective Physical Exam Physical Exam: Physical Exam: Vitals signs as noted above General Appearance:Obese, no apparent distress Head: normocephalic, Atraumatic, +Poor dentition Eyes: normal inspection, EOMI Neck: supple, Trachea midline Respiratory/Chest: Normal breath sounds, CTA, No accessory muscle use Cardiovascular: Irregular irregular, No murmur Abdomen/GI:Soft, Non tender, Bowel sounds present Extremities/Musculoskeletal:normal inspection, 2+ LE edema, right lower extremity erythematous, left lower extremity with dressing Neurologic/Psych:AAOX3, grossly no focal neurological deficits Skin: normal color, warm Results & Data Results & Data Vital Signs (Past 12 Hours) Vital Signs Temp Pulse Pulse Resp BP BP Pulse Ox 11/04/23 16:25 36 C L 129 H 15 115/93 96 11/04/23 13:25 37 C 89 20 135/92 97 11/04/23 12:14 36.7 C 93 H 16 100/69 97 11/04/23 11:00 103 H 11/04/23 08:00 36.6 C 89 17 111/76 96 O2 Del Method O2 Flow Rate 11/04/23 16:25 Oxymask 6 11/04/23 13:25 Room Air 11/04/23 12:14 Room Air 11/04/23 11:00 11/04/23 08:00 Room Air Laboratory Results Short CBC 11/04/23 Range/Units 05:57 WBC 5.49 (4.8-10.8) K/ul Hgb 8.6 L (12.0-16.0) g/dl Hct 28.2 L (37.0-47.0) % Plt Count 257 (130-400) K/uL BMP 11/04/23 05:57 Sodium 138 Potassium 4.4 Chloride 108 H Carbon Dioxide 26 BUN 23 Creatinine 0.73 Glucose 92 Calcium 7.9 L (13) Hypothyroidism Hypothyroidism type: acquired Qualified Code(s): E03.9 - Hypothyroidism, unspecified
[2023-11-04] MEDS: METOPROLOL TARTRATE 1 MG/ML VIAL IV ONE (17:43)
--- NOTE | 2023-11-04 18:09 | Communication Note ---
Date of Service: November 04, [address] Mcqueen. Will plan to resume anticoagulation tomorrow afternoon. Clear liquid diet for now.
--- NOTE | 2023-11-04 18:27 | Anesthesiology Progress Note ---
Date of Service November 04, 2023 Anesthesia Post Procedure Vital Signs Vital Signs: Temp Pulse Pulse Resp BP BP Pulse Ox 11/04/23 17:40 98 H 18 134/75 96 11/04/23 17:15 109 H 17 112/81 97 11/04/23 17:05 36.1 C L 115 H 17 93/57 L 99 11/04/23 16:55 124 H 17 125/79 99 11/04/23 16:45 111 H 15 108/74 98 11/04/23 16:35 130 H 15 125/94 98 11/04/23 16:25 36 C L 129 H 15 115/93 96 11/04/23 13:25 37 C 89 20 135/92 97 11/04/23 12:14 36.7 C 93 H 16 100/69 97 11/04/23 11:00 103 H 11/04/23 08:00 36.6 C 89 17 111/76 96 11/04/23 03:43 36.5 C 81 20 124/86 97 11/03/23 23:41 36.4 C L 99 H 20 113/83 99 11/03/23 23:00 91 H 11/03/23 20:00 11/03/23 19:42 36.8 C 75 19 120/53 L 100 O2 Del Method O2 Flow Rate 11/04/23 17:40 Room Air 11/04/23 17:15 Nasal Cannula 3 11/04/23 17:05 Nasal Cannula 3 11/04/23 16:55 Nasal Cannula 3 11/04/23 16:45 Nasal Cannula 3 11/04/23 16:35 Oxymask 6 11/04/23 16:25 Oxymask 6 11/04/23 13:25 Room Air 11/04/23 12:14 Room Air 11/04/23 11:00 11/04/23 08:00 Room Air 11/04/23 03:43 Room Air 11/03/23 23:41 Room Air 11/03/23 23:00 11/03/23 20:00 Room Air 11/03/23 19:42 Room Air Pain Intensity Bilateral Lower Leg: Pain Intensity: 5 Bilateral Mouth: Pain Intensity: 8 Transfer of Care Handoff Completed per policy Notes Mental Status: alert / awake / arousable and participated in evaluation Patient Amnestic to Procedure: Yes Nausea / Vomiting: adequately controlled Pain: adequately controlled Airway Patency, RR, SpO2: stable & adequate BP & HR: stable & adequate Hydration State: stable & adequate Anesthetic Complications: no major complications apparent and Pt Satisfied with anesthetic care Notes: Patient required 2.5mg IV metoprolol in PACU for better rate control of her known A fib. Will continue to be treated/managed in PCU. BP stable. Patient ok for transfer back to PCU.
[2023-11-04] MEDS: IRON SUCROSE 300 MG in SODIUM CHLORIDE 0.9% 250 ML IV ONE (19:17)
[2023-11-05 08:01] LABS: BUN Creatinine Ratio 31.9 (10-20); Calcium 8.4 mg/dl (8.6-10.3); Creatinine Clr Calc Pharmacy 70.5 ml/min; Est GFR (African American) 100.1 ml/min; Est GFR (Non-African American) 86.4 ml/min; Potassium 4.9 mmol/L (3.5-5.1)
[2023-11-05 08:04] LABS: INR 0.9 (0.9-1.1); Prothrombin Time 10.3 Seconds (9.0-12.0)
[2023-11-05] MEDS: FERROUS SULFATE 325 MG TAB PO SCH (08:26)
[2023-11-05] MEDS: METOPROLOL TARTRATE 25 MG TAB PO SCH (08:32)
[2023-11-05] MEDS: HEPARIN SODIUM/DEXTROSE 25,000 UNITS/500 ML BAG IV SCH ×2 (10:40→13:27)
[2023-11-05] MEDS ORDERED: Nursing to Pharmacy Communication SCH (10:45)
[2023-11-05] MEDS ORDERED: Heparin IV Adult Wt-Based Standard *NO* INITIAL Bolus Protocol IV ONE (13:00)
[2023-11-05] MEDS ORDERED: Heparin IV Adult Wt-Based Low-Dose *NO* INITIAL Bolus Protocol IV ONE (13:00)
--- NOTE | 2023-11-05 13:33 | Cardiology Progress Note ---
Date of Service November 05, 2023 Assessment & Plan (1) Cellulitis: (2) Paroxysmal atrial fibrillation: Plan Transition metoprolol 12.5 mg every 6 hours to 25 mg twice daily. Dose warfarin for goal INR of 2.0-3.0. Continue heparin bridging therapy. Continue midodrine to 10 mg 3 times daily. Repeat echocardiogram in 1 year for surveillance of mild aortic root/proximal ascending aorta enlargement, 3.8 and 4.5 cm respectively on echocardiogram this admission. Admission and Anticipated Discharge Date Admission Date: October 30, 2023 Subjective Patient seen examined the bedside. Reports oral discomfort related to surgery. Mild oral bleeding noted this morning. She did not receive her p.m. dose of metoprolol last night due to oral discomfort. Heart rate mildly elevated on telemetry. Denies palpitations or chest discomfort. Review of Systems Review of Systems: All systems reviewed & are unremarkable except as noted in Subjective Physical Exam Constitutional: well nourished and + ill appearing; no acute distress Respiratory: no respiratory distress, no labored breathing and no retractions Auscultation: no crackles, no rales, no rhonchi and no wheezes Cardiovascular: Rate/Rhythm: + tachycardic and + irregularly irregular Heart Sounds: normal S1 and normal S2; no murmur Vessels: no JVD Extremities: + edema (1+ bilateral lower extremity edema and erythema) Gastrointestinal (Abdomen): Inspection/Auscultation: abdomen normal to inspection and normal bowel sounds; abdomen not distended Percussion/Palpation: abdomen soft; abdomen nontender, no guarding and abdomen not rigid Neurologic: CN's II-XI intact bilaterally and moves all extremities Results & Data Vital Signs (Past 12 Hours) Vital Signs Temp Pulse Pulse Resp BP BP Pulse Ox 11/05/23 10:45 36.4 C L 88 16 102/70 97 11/05/23 08:26 108 H 11/05/23 07:35 36.7 C 99 H 17 119/80 97 11/05/23 03:15 36.9 C 67 18 108/71 96 O2 Del Method 11/05/23 10:45 Room Air 11/05/23 08:26 11/05/23 07:35 Room Air 11/05/23 03:15 Room Air Laboratory Results Coagulation 11/05/23 Range/Units 05:55 PT 10.3 (9.0-12.0) Seconds Comprehensive Metabolic Panel 11/05/23 Range/Units 05:55 Sodium 138 (136-145) mmol/L Potassium 4.9 (3.5-5.1) mmol/L Chloride 107 (98-107) mmol/L Carbon Dioxide 23 (21-32) mmol/L BUN 22 (6-23) mg/dl Creatinine 0.69 (0.6-1.2) mg/dl Glucose 110 H (70-99(Fasting)) mg/dl Calcium 8.4 L (8.6-10.3) mg/dl Intake and Output 11/04/23 11/05/23 11/05/23 22:59 06:59 14:59 Intake Total 148 / 1996 408 / 1997 348 / 348 Output Total 255 / 770 240 / 770 250 / 250 Balance 1226 / 1227 168 / 1227 98 / 98 Intake: IV 481 / 697 108 / 697 108 / 108 Ampicillin/Sulbactam Sod 3,000 216 / 432 108 / 432 108 / 108 mg In Sodium Chlor 0.9% Mini-B 100 ml @ 200 mls/hr IV Q6H [facility] Rx#:[id number] Iron Sucrose 300 mg In Sodium 265 / 265 Chloride 0.9% 250 ml @ 176.667 mls/hr IV [facility] Rx#:[id number] IV Perioperative 800 / 800 Oral 200 / 500 300 / 500 240 / 240 Output: Estimated Blood Loss 5 / 5 Urine Amount (Catheter) 250 / 765 240 / 765 250 / 250 Cisneros/Indwelling 250 / 765 240 / 765 250 / 250 Other: Weight 82 kg Weight Measurement Method Built in [facility] (1) Cellulitis Site of cellulitis: unspecified site Qualified Code(s): L03.90 - Cellulitis, unspecified
--- NOTE | 2023-11-05 15:01 | Oral/Maxillofacial Progress Nt ---
Date of Service November 05, 2023 Assessment & Plan Admission and Anticipated Discharge Date Admission Date: October 30, 2023 Subjective POST OP NOTE at 24 hours The patient did very well post operatively, healing is excellent. Given the difficulty of her case I am very impressed how well she is doing. Oral care is good, minimal swelling noted. Tissue tone =healthy normal tissue No sinus or nerve complications noted Excellent ROM Reviewed diet, massage, exercise and continued home/oral care Overall: Excellent healing from recent oral surgery From my point of view she may be discharged once she is cleared medically for out patient care. I will see her as an outpatient in 2 weeks Appropriate antibiotic and pain medication upon discharge is suggested. I will see Mrs Oneal tomorrow morning for follow up check up Results & Data Vital Signs (Past 12 Hours) Vital Signs Temp Pulse Pulse Resp BP BP Pulse Ox 11/05/23 10:45 36.4 C L 88 16 102/70 97 11/05/23 08:26 108 H 11/05/23 07:35 36.7 C 99 H 17 119/80 97 11/05/23 03:15 36.9 C 67 18 108/71 96 O2 Del Method 11/05/23 10:45 Room Air 11/05/23 08:26 11/05/23 07:35 Room Air 11/05/23 03:15 Room Air PG Care Time/CCT Total # of Minutes Spent Total Time Spent with Patient: Total time spent is greater than 50% in coordination of care (as documented) at patient's floor/unit and/or counseling patient: Coding Level of Care Code None
[2023-11-05] MEDS ORDERED: WARFARIN SOD 5 MG TAB PO SCH (16:00)
--- NOTE | 2023-11-05 16:38 | Hospitalist Progress Note ---
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 Oneal is a 72-year-old woman who has significant past medical history of chronic diastolic CHF, history of PSVT, HTN, thoracic aortic aneurysm, Edenilson- Danlos syndrome, secondary hyperparathyroidism, hypothyroidism, hyperlipidemia, BRANDIE on CPAP, asthma, vitamin D deficiency, GERD, history of diverticulitis with colon perforation, RLS, fibromyalgia, chronic pain syndrome, hypercoagulability, history of gastric bypass, depression, history of PTSD, history of PE who presented to ED for worsening leg swelling and admitted for concern for sepsis. On 10/30, OP notes reviewed where is was noted that the leg swelling is a chronic concern "Seen in clinic a month ago, lower legs were red and flaky with no open areas. Notes that they have gotten more swollen, have been weeping and are more painful" as per visit on 10/[address] Brock OP clinic visit. Has been trying to follow with OMFS as she is suppose to undergo extraction of her teeth due to hopeful shoulder replacement/repair. She notes the left side is much more painful and swollen than usual. Sepsis, multifactorial Poor dentition Hematoma of anterior plate Chronic lymphedema with superimposed cellulitis Periapical abscess --Facial CT:There is a 3 mm periapical lucency at ADA 27 demonstrating focal cortical breakthrough at the buccal surface. However, no soft tissue abscess identified. Multiple dental caries seen within the residual teeth. -Lactate: 1.3, procalcitonin: 1.8 -Blood cultures negative to date MRSA nares negative --Ceftriaxone, daptomycin>> transition to Unasyn --S/P Facial Incision and Drainage and removal of multiple teeth by on 11/04/23 Appreciate oral maxillary surgery input Needs follow-up with surgery on discharge Atrial fibrillation with RVR H/O PSVT Coumadin initially held for surgery Continue metoprolol 12.5 mg 4 times daily per cardiology Appreciate cardiology input Restarted IV heparin, Coumadin Monitor INR Acute on Chronic Hear Failure with preserved EF Home torsemide held BNP 1099 --IV Lasix discontinued Appreciate cardiology input Resume torsemide Elevated troponin, likely demand iso RVR and heart failure exacerbation Elevated troponin: 51--> 52.9--> 32.5, stable Monitor Chronic Hypotension H/O POTS Continue increased midodrine at 10mg TID per cards H/O Prior PE/DVT H/O Protein C deficiency Supratherapeutic INR on presentation INR 1.0 today Coumadin held IV heparin held for procedure Resume anticoagulation as able once cleared by surgery Monitor INR Parkinson Disease RLS Continue ropinirole, carbidopa levodopa States uses rollator at baseline PT/OT eval BRANDIE CPAP as tolerated. 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 continue buprenorphine patch/oxy, lidocaine Ascending thoracic aortic aneurysm -Reportedly stable, hx measured at measuring 5.1 cm, , noted on ECHO at 4.5cm Continue home medications Hypothyroidism TSH 0.49 Continue levothyroxine PTSD Anxiety Continue mirtazapine and hydroxyzine prn DVT Px: Heparin gtt, Coumadin Code Status Full code Disposition PT OT prior to discharge Admission and Anticipated Discharge Date Admission Date: October 30, 2023 Subjective Patient is seen and examined at bedside States having transient bleeding from tooth extraction site this morning Also reports left leg pain Denies any chest pain, dyspnea, nausea, vomiting, abdominal pain No other complaints Review of Systems Review of Systems: All systems reviewed & are unremarkable except as noted in Subjective Physical Exam 2 Physical Exam: Physical Exam: Vitals signs as noted above General Appearance:Obese, no apparent distress Head: normocephalic, Atraumatic, +Poor dentition Eyes: normal inspection, EOMI Neck: supple, Trachea midline Respiratory/Chest: Normal breath sounds, CTA, No accessory muscle use Cardiovascular: Irregular irregular, No murmur Abdomen/GI:Soft, Non tender, Bowel sounds present Extremities/Musculoskeletal:normal inspection, 2+ LE edema, right lower extremity erythematous, left lower extremity with dressing Neurologic/Psych:AAOX3, grossly no focal neurological deficits Skin: normal color, warm Results & Data Results & Data Vital Signs (Past 12 Hours) Vital Signs Temp Pulse Pulse Resp BP Pulse Ox O2 Del Method 11/05/23 15:28 36.7 C 98 H 19 122/74 97 Room Air 11/05/23 15:00 110 H 11/05/23 10:45 36.4 C L 88 16 102/70 97 Room Air 11/05/23 08:26 108 H 11/05/23 07:35 36.7 C 99 H 17 119/80 97 Room Air Laboratory Results [facility] 11/05/23 05:55 Sodium 138 Potassium 4.9 Chloride 107 Carbon Dioxide 23 BUN 22 Creatinine 0.69 Glucose 110 H Calcium 8.4 L (13) Hypothyroidism Hypothyroidism type: acquired Qualified Code(s): E03.9 - Hypothyroidism, unspecified
[2023-11-05] MEDS: TORSEMIDE 20 MG TAB PO SCH (16:46)
[2023-11-05] MEDS: WARFARIN SOD 2.5 MG TAB PO SCH (17:08)
[2023-11-05 20:43] LABS: ANTI-Xa, UFH(UnfractionatedHep 0.22 IU/ml (0.3-0.7)
[2023-11-06 03:38] LABS: Hematocrit (blood only) 30.6 % (37.0-47.0); Hemoglobin 9.3 g/dl (12.0-16.0); Mean Corpuscular Hemoglobin 29.1 pg (25.0-34.0); Mean Corpuscular Hgb Conc 30.4 g/dL (32.0-36.0); Mean Corpuscular Volume 95.6 fL (80.0-100.0); Mean Platelet Volume 9.3 fL (9.4-12.4); Nucleated RBC # (auto) 0.25 K/uL (0.00-0.12); Nucleated RBC % (auto) 3.3 %; Platelet Count 304 K/uL (130-400); RDW Standard Deviation 56.7 fL (36.4-46.3); White Blood Count 7.58 K/ul (4.8-10.8)
[2023-11-06 03:55] LABS: BUN Creatinine Ratio 32.5 (10-20); Calcium 8.4 mg/dl (8.6-10.3); Creatinine Clr Calc Pharmacy 58.6 ml/min; Est GFR (African American) 81.1 ml/min; Potassium 4.1 mmol/L (3.5-5.1)
[2023-11-06 04:04] LABS: ANTI-Xa, UFH(UnfractionatedHep 0.25 IU/ml (0.3-0.7); INR 1.1 (0.9-1.1); Prothrombin Time 12.1 Seconds (9.0-12.0)
[2023-11-06 10:37] LABS: ANTI-Xa, UFH(UnfractionatedHep 0.28 IU/ml (0.3-0.7)
--- NOTE | 2023-11-06 13:01 | Surgery Progress Note ---
Date of Service November 06, 2023 Assessment & Plan Admission and Anticipated Discharge Date Admission Date: October 30, 2023 Subjective POST OP NOTE at 48 hours s/p I&D and extraction of teeth The patient is doing very well , healing is excellent. Oral care is good, minimal swelling as expected. Tissue tone =healthy normal tissue No sinus or nerve complications noted Excellent ROM Sutures is place No bleeding noted Eating soft foods very well Reviewed oral care=mouth rinsing with the Peridex and soft foods Reviewed diet, massage, exercise and continued home/oral care RTC for follow up once she is discharged from Rehab Overall: Excellent healing from recent oral surgery Results & Data Vital Signs (Past 12 Hours) Vital Signs Temp Pulse Resp BP Pulse Ox O2 Del Method 11/06/23 11:41 36.5 C 104 H 22 117/76 99 Room Air 11/06/23 07:50 36.6 C 112 H 22 126/87 97 Room Air 11/06/23 03:33 36.6 C 103 H 18 113/73 95 Room Air PG Care Time/CCT Total # of Minutes Spent Total Time Spent with Patient: Total time spent is greater than 50% in coordination of care (as documented) at patient's floor/unit and/or counseling patient: Coding Level of Care Code None
--- NOTE | 2023-11-06 15:16 | Cardiology Progress Note ---
Date of Service November 06, 2023 Assessment & Plan (1) Cellulitis: (2) Paroxysmal atrial fibrillation: Plan Titrate metoprolol to 25 mg 3 times daily to improve rate control. Continue Demadex 40 mg daily for treatment of chronic lower extremity edema. Dose warfarin for goal INR of 2.0-3.0. Continue heparin bridging therapy. Continue midodrine to 10 mg 3 times daily. Repeat echocardiogram in 1 year for surveillance of mild aortic root/proximal ascending aorta enlargement, 3.8 and 4.5 cm respectively on echocardiogram this admission. Admission and Anticipated Discharge Date Admission Date: October 30, 2023 Subjective 73-year-old female seen and examined at the bedside. Demadex restarted 11/05/2023. Fluid balance -2328 cc. Edema improved. Erythema unchanged. Patient continues to note discomfort involving her mouth related to recent oral surgery. Able to swallow medications. Heart rate remains borderline elevated on telemetry. Review of Systems Review of Systems: All systems reviewed & are unremarkable except as noted in Subjective Physical Exam Constitutional: well nourished and + ill appearing; no acute distress Respiratory: no respiratory distress, no labored breathing and no retractions Auscultation: no crackles, no rales, no rhonchi and no wheezes Cardiovascular: Rate/Rhythm: + tachycardic and + irregularly irregular Heart Sounds: normal S1 and normal S2; no murmur Vessels: no JVD Extrem ities: + edema (1+ bilateral lower extremity edema and erythema) Gastrointestinal (Abdomen): Inspection/Auscultation: abdomen normal to inspection and normal bowel sounds; abdomen not distended Percussion/Palpation: abdomen soft; abdomen nontender, no guarding and abdomen not rigid Neurologic: CN's II-XI intact bilaterally and moves all extremities Results & Data Vital Signs (Past 12 Hours) Vital Signs Temp Pulse Resp BP Pulse Ox O2 Del Method 11/06/23 11:41 36.5 C 104 H 22 117/76 99 Room Air 11/06/23 07:50 36.6 C 112 H 22 126/87 97 Room Air 11/06/23 03:33 36.6 C 103 H 18 113/73 95 Room Air Laboratory Results Coagulation 11/06/23 Range/Units 02:58 PT 12.1 H (9.0-12.0) Seconds CBC 11/06/23 Range/Units 02:58 WBC 7.58 (4.8-10.8) K/ul RBC 3.20 L (4.20-5.40) M/uL Hgb 9.3 L (12.0-16.0) g/dl Hct 30.6 L (37.0-47.0) % Plt Count 304 (130-400) K/uL Comprehensive Metabolic Panel 11/06/23 Range/Units 02:58 Sodium 137 (136-145) mmol/L Potassium 4.1 (3.5-5.1) mmol/L Chloride 104 (98-107) mmol/L Carbon Dioxide 27 (21-32) mmol/L BUN 27 H (6-23) mg/dl Creatinine 0.83 (0.6-1.2) mg/dl Glucose 122 H (70-99(Fasting)) mg/dl Calcium 8.4 L (8.6-10.3) mg/dl Intake and Output 11/06/23 11/06/23 11/06/23 06:59 14:59 22:59 Intake Total 461.65 / 1576.65 543.033 / 543.033 Output Total 1200 / 3450 900 / 900 Balance -738.35 / -1873.35 -356.967 / -356.967 Intake: IV 261.65 / 736.65 303.033 / 303.033 Ampicillin/Sulbactam Sod 3,000 108 / 432 108 / 108 mg In Sodium Chlor 0.9% Mini-B 100 ml @ 200 mls/hr IV Q6H [facility] Rx#:[id number] Heparin Sodium/Dextrose 25,000 153.65 / 304.65 195.033 / 195.033 units In 500 ml @ 1,100 UNITS/ HR 22 mls/hr IV .[id number] [facility] Rx #:[id number] Oral 200 / 840 240 / 240 Output: Urine Amount (Catheter) 1200 / 3450 900 / 900 Cisneros/Indwelling 1200 / 3450 900 / 900 Other: Weight 84.2 kg Weight Measurement Method Built in [facility] (1) Cellulitis Site of cellulitis: unspecified site Qualified Code(s): L03.90 - Cellulitis, unspecified
[2023-11-06] MEDS: METOPROLOL TARTRATE 25 MG TAB PO STA (15:31)
[2023-11-06] MEDS: WARFARIN SOD 5 MG TAB PO SCH (15:34)
--- NOTE | 2023-11-06 17:30 | Hospitalist Progress Note ---
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 Oneal is a 72-year-old woman who has significant past medical history of chronic diastolic CHF, history of PSVT, HTN, thoracic aortic aneurysm, Edenilson- Danlos syndrome, secondary hyperparathyroidism, hypothyroidism, hyperlipidemia, BRANDIE on CPAP, asthma, vitamin D deficiency, GERD, history of diverticulitis with colon perforation, RLS, fibromyalgia, chronic pain syndrome, hypercoagulability, history of gastric bypass, depression, history of PTSD, history of PE who presented to ED for worsening leg swelling and admitted for concern for sepsis. On 10/30, OP notes reviewed where is was noted that the leg swelling is a chronic concern "Seen in clinic a month ago, lower legs were red and flaky with no open areas. Notes that they have gotten more swollen, have been weeping and are more painful" as per visit on 10/[address] Brock OP clinic visit. Has been trying to follow with OMFS as she is suppose to undergo extraction of her teeth due to hopeful shoulder replacement/repair. She notes the left side is much more painful and swollen than usual. Sepsis, multifactorial Poor dentition Hematoma of anterior plate Chronic lymphedema with superimposed cellulitis Periapical abscess --Facial CT:There is a 3 mm periapical lucency at ADA 27 demonstrating focal cor tical breakthrough at the buccal surface. However, no soft tissue abscess identified. Multiple dental caries seen within the residual teeth. -Lactate: 1.3, procalcitonin: 1.8 -Blood cultures negative MRSA nares negative --Ceftriaxone, daptomycin>> transition to Unasyn --S/P Facial Incision and Drainage and removal of multiple teeth by on 11/04/23 Appreciate oral maxillary surgery input Needs follow-up with surgery on discharge Transition to oral antibiotics as able Atrial fibrillation with RVR H/O PSVT Coumadin initially held for surgery Continue metoprolol tartrate 25 mg 3 times daily Appreciate cardiology input Restarted IV heparin, Coumadin Monitor INR 1.1 today Increase Coumadin to 5 mg today Acute on Chronic Hear Failure with preserved EF Home torsemide held BNP 1099 --IV Lasix discontinued Appreciate cardiology input Resumed torsemide on 11/05/2023 Elevated troponin, likely demand iso RVR and heart failure exacerbation Elevated troponin: 51--> 52.9--> 32.5, stable Monitor Chronic Hypotension H/O POTS Continue increased midodrine at 10mg TID per cards H/O Prior PE/DVT H/O Protein C deficiency Supratherapeutic INR on presentation Coumadin held for surgery, now resume On IV heparin bridge Parkinson Disease RLS Continue ropinirole, carbidopa levodopa States uses rollator at baseline PT/OT eval BRANDIE CPAP as tolerated. Patient states uses intermittently Acute on Chronic Anemia H/O Gastric bypass H/O KASSANDRA Baseline Hb ~10's Iron, transferrin levels low Normal B12, folate levels Started on iron supplements Hemorrhoids +FOBT Monitor CBC Hydrocortisone PRN Chronic Pain Ehler Danlos syndrome Chronic R shoulder dislocation continue buprenorphine patch/oxy, lidocaine Ascending thoracic aortic aneurysm -Reportedly stable, hx measured at measuring 5.1 cm, , noted on ECHO at 4.5cm Continue home medications Hypothyroidism TSH 0.49 Continue levothyroxine PTSD Anxiety Continue mirtazapine and hydroxyzine prn DVT Px: Heparin gtt, Coumadin Code Status Full code Disposition PT OT prior to discharge Admission and Anticipated Discharge Date Admission Date: October 30, 2023 Subjective Patient is seen and examined at bedside Still reports jaw pain at the site of tooth extraction Denies any bleeding today Reports increased leg edema Denies any chest pain, dyspnea, nausea, vomiting, abdominal pain Review of Systems Review of Systems: All systems reviewed & are unremarkable except as noted in Subjective Physical Exam Physical Exam: Physical Exam: Vitals signs as noted above General Appearance:Obese, no apparent distress Head: normocephalic, Atraumatic, +Poor dentition Eyes: normal inspection, EOMI Neck: supple, Trachea midline Respiratory/Chest: Normal breath sounds, CTA, No accessory muscle use Cardiovascular: Irregular irregular, No murmur Abdomen/GI:Soft, Non tender, Bowel sounds present Extremities/Musculoskeletal:normal inspection, 2+ LE edema, right lower extremity erythematous, left lower extremity with dressing Neurologic/Psych:AAOX3, grossly no focal neurological deficits Skin: normal color, warm Results & Data Results & Data Vital Signs (Past 12 Hours) Vital Signs Temp Pulse Resp BP Pulse Ox O2 Del Method 11/06/23 15:48 36.6 C 92 H 21 115/78 98 Room Air 11/06/23 15:35 110 H 133/82 11/06/23 11:41 36.5 C 104 H 22 117/76 99 Room Air 11/06/23 07:50 36.6 C 112 H 22 126/87 97 Room Air Laboratory Results Short CBC 11/06/23 Range/Units 02:58 WBC 7.58 (4.8-10.8) K/ul Hgb 9.3 L (12.0-16.0) g/dl Hct 30.6 L (37.0-47.0) % Plt Count 304 (130-400) K/uL BMP 11/06/23 02:58 Sodium 137 Potassium 4.1 Chloride 104 Carbon Dioxide 27 BUN 27 H Creatinine 0.83 Glucose 122 H Calcium 8.4 L (13) Hypothyroidism Hypothyroidism type: acquired Qualified Code(s): E03.9 - Hypothyroidism, unspecified
[2023-11-06 18:14] LABS: ANTI-Xa, UFH(UnfractionatedHep 0.31 IU/ml (0.3-0.7)
[2023-11-06] MEDS: METOPROLOL TARTRATE 25 MG TAB PO SCH (21:11)
[2023-11-07 06:51] LABS: Hematocrit (blood only) 31.1 % (37.0-47.0); Hemoglobin 9.6 g/dl (12.0-16.0); Mean Corpuscular Hemoglobin 29.1 pg (25.0-34.0); Mean Corpuscular Hgb Conc 30.9 g/dL (32.0-36.0); Mean Corpuscular Volume 94.2 fL (80.0-100.0); Mean Platelet Volume 9.1 fL (9.4-12.4); Nucleated RBC # (auto) 0.07 K/uL (0.00-0.12); Nucleated RBC % (auto) 0.8 %; Platelet Count 263 K/uL (130-400); RDW Coefficient of Variation 16.1 % (11.5-14.5); RDW Standard Deviation 55.8 fL (36.4-46.3); White Blood Count 8.33 K/ul (4.8-10.8)
[2023-11-07 06:59] LABS: ANTI-Xa, UFH(UnfractionatedHep 0.35 IU/ml (0.3-0.7); INR 1.7 (0.9-1.1); Prothrombin Time 17.2 Seconds (9.0-12.0)
[2023-11-07 07:16] LABS: BUN Creatinine Ratio 32.9 (10-20); Calcium 8.1 mg/dl (8.6-10.3); Creatinine Clr Calc Pharmacy 62.8 ml/min; Est GFR (African American) 86.1 ml/min; Est GFR (Non-African American) 74.3 ml/min; Potassium 3.9 mmol/L (3.5-5.1)
--- NOTE | 2023-11-07 12:20 | Cardiology Progress Note ---
Date of Service November 07, 2023 Assessment & Plan (1) Cellulitis: (2) Paroxysmal atrial fibrillation: Plan Continue metoprolol tartrate 25 mg 3 times daily. Continue Demadex 40 mg daily (chronic outpatient dose) for treatment of chronic lower extremity edema. Dose warfarin for goal INR of 2.0-3.0. Continue heparin bridging therapy until INR > 2.0. Continue midodrine to 10 mg 3 times daily. Repeat echocardiogram in 1 year for surveillance of mild aortic root/proximal ascending aorta enlargement, 3.8 and 4.5 cm respectively on echocardiogram this admission. PT/OT as tolerated. Cardiology will sign off. Please call with additional concerns/questions. Admission and Anticipated Discharge Date Admission Date: October 30, 2023 Subjective Patient seen and examined at bedside. Edema mildly improved. Fluid balance - 440 cc. Borderline hypotension unchanged. Telemetry feels atrial fibrillation heart rate ranging 90-110 bpm. Tolerating titration of metoprolol. Offers no new concerns/complaints. Review of Systems Review of Systems: All systems reviewed & are unremarkable except as noted in HPI & below Physical Exam Constitutional: well nourished and + ill appearing; no acute distress Respiratory: no respiratory distress, no labored breathing and no retractions Auscultation: no crackles, no rales, no rhonchi and no wheezes Cardiovascular: Rate/Rhythm: + tachycardic and + irregularly irregular Heart Sounds: normal S1 and normal S2; no murmur Vessels: no JVD Extremities: + edema (1+ bilateral lower extremity edema and erythema) Gastrointestinal (Abdomen): Inspection/Auscultation: abdomen normal to inspection and normal bowel sounds; abdomen not distended Percussion/Palpation: abdomen soft; abdomen nontender, no guarding and abdomen not rigid Neurologic: CN's II-XI intact bilaterally and moves all extremities Results & Data Vital Signs (Past 12 Hours) Vital Signs Temp Pulse Resp BP Pulse Ox O2 Del Method 11/07/23 07:33 37.7 C H 104 H 17 98/69 L 96 Room Air 11/07/23 03:15 36.6 C 77 18 124/70 96 Room Air Laboratory Results Coagulation 11/07/23 Range/Units 06:32 PT 17.2 H (9.0-12.0) Seconds CBC 11/07/23 Range/Units 06:32 WBC 8.33 (4.8-10.8) K/ul RBC 3.30 L (4.20-5.40) M/uL Hgb 9.6 L (12.0-16.0) g/dl Hct 31.1 L (37.0-47.0) % Plt Count 263 (130-400) K/uL Comprehensive Metabolic Panel 11/07/23 Range/Units 06:32 Sodium 137 (136-145) mmol/L Potassium 3.9 (3.5-5.1) mmol/L Chloride 104 (98-107) mmol/L Carbon Dioxide 25 (21-32) mmol/L BUN 26 H (6-23) mg/dl Creatinine 0.79 (0.6-1.2) mg/dl Glucose 106 H (70-99(Fasting)) mg/dl Calcium 8.1 L (8.6-10.3) mg/dl Intake and Output 11/06/23 11/07/23 11/07/23 22:59 06:59 14:59 Intake Total 1013.6 / 1664.633 108 / 1664.633 448.4 / 448.4 Output Total 999 / 2299 400 / 2300 Balance 13.6 / -635.367 -292 / -635.367 448.4 / 448.4 Intake: IV 358.6 / 769.633 108 / 769.633 448.4 / 448.4 Ampicillin/Sulbactam Sod 3,000 216 / 432 108 / 432 108 / 108 mg In Sodium Chlor 0.9% Mini-B 100 ml @ 200 mls/hr IV Q6H [facility] Rx#:[id number] Heparin Sodium/Dextrose 25,000 142.6 / 337.633 340.4 / 340.4 units In 500 ml @ 1,100 UNITS/ HR 22 mls/hr IV .[id number] [facility] Rx #:[id number] Oral 655 / 895 Output: Urine Amount (Catheter) 1000 / 2300 400 / 2300 Cisneros/Indwelling 999 / 2299 400 / 2300 Other: Weight 84.2 kg 85 kg Weight Measurement Method Built in [facility] (1) Cellulitis Site of cellulitis: unspecified site Qualified Code(s): L03.90 - Cellulitis, unspecified
[2023-11-07] MEDS: WARFARIN SOD 3 MG TAB PO SCH (15:42)
--- NOTE | 2023-11-07 16:45 | Hospitalist Progress Note ---
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 Oneal is a 72-year-old woman who has significant past medical history of chronic diastolic CHF, history of PSVT, HTN, thoracic aortic aneurysm, Edenilson- Danlos syndrome, secondary hyperparathyroidism, hypothyroidism, hyperlipidemia, BRANDIE on CPAP, asthma, vitamin D deficiency, GERD, history of diverticulitis with colon perforation, RLS, fibromyalgia, chronic pain syndrome, hypercoagulability, history of gastric bypass, depression, history of PTSD, history of PE who presented to ED for worsening leg swelling and admitted for concern for sepsis. On 10/30, OP notes reviewed where is was noted that the leg swelling is a chronic concern "Seen in clinic a month ago, lower legs were red and flaky with no open areas. Notes that they have gotten more swollen, have been weeping and are more painful" as per visit on 10/[address] Brock OP clinic visit. Has been trying to follow with OMFS as she is suppose to undergo extraction of her teeth due to hopeful shoulder replacement/repair. She notes the left side is much more painful and swollen than usual. Sepsis, multifactorial Poor dentition Hematoma of anterior plate Chronic lymphedema with superimposed cellulitis Periapical abscess --Facial CT:There is a 3 mm periapical lucency at ADA 27 demonstrating focal cor tical breakthrough at the buccal surface. However, no soft tissue abscess identified. Multiple dental caries seen within the residual teeth. -Lactate: 1.3, procalcitonin: 1.8 -Blood cultures negative MRSA nares negative --Ceftriaxone, daptomycin>> transition to Unasyn --S/P Facial Incision and Drainage and removal of multiple teeth by on 11/04/23 Appreciate oral maxillary surgery input Needs follow-up with surgery on discharge Transition to oral antibiotics tomorrow Plan to discharge to rehab facility likely tomorrow Atrial fibrillation with RVR H/O PSVT Coumadin initially held for surgery Continue metoprolol tartrate 25 mg 3 times daily Appreciate cardiology input Restarted IV heparin, Coumadin Monitor INR 1.7 today Adjust Coumadin dose as needed Acute on Chronic Hear Failure with preserved EF Home torsemide held BNP 1099 --IV Lasix discontinued Appreciate cardiology input Resumed torsemide on 11/05/2023 Elevated troponin, likely demand iso RVR and heart failure exacerbation Elevated troponin: 51--> 52.9--> 32.5, stable Monitor Chronic Hypotension H/O POTS Continue increased midodrine at 10mg TID per cards H/O Prior PE/DVT H/O Protein C deficiency Supratherapeutic INR on presentation Coumadin held for surgery, now resume On IV heparin bridge Parkinson Disease RLS Continue ropinirole, carbidopa levodopa States uses rollator at baseline PT/OT eval BRANDIE CPAP as tolerated. Patient states uses intermittently Acute on Chronic Anemia H/O Gastric bypass H/O KASSANDRA Baseline Hb ~10's Iron, transferrin levels low Normal B12, folate levels Started on iron supplements Hemorrhoids +FOBT Monitor CBC Hydrocortisone PRN Chronic Pain Ehler Danlos syndrome Chronic R shoulder dislocation continue buprenorphine patch/oxy, lidocaine Ascending thoracic aortic aneurysm -Reportedly stable, hx measured at measuring 5.1 cm, , noted on ECHO at 4.5cm Continue home medications Hypothyroidism TSH 0.49 Continue levothyroxine PTSD Anxiety Continue mirtazapine and hydroxyzine prn DVT Px: Heparin gtt, Coumadin Code Status Full code Disposition Acute rehab as able Admission and Anticipated Discharge Date Admission Date: October 30, 2023 Subjective Patient is seen and examined at bedside Sitting in chair comfortably during my encounter States feeling slightly better today Leg edema slowly improving Still has some sinus pain Denies any chest pain, dyspnea, nausea, vomiting, abdominal pain Tolerating diet Review of Systems Review of Systems: All systems reviewed & are unremarkable except as noted in Subjective Physical Exam Physical Exam: Physical Exam: Vitals signs as noted above General Appearance:Obese, no apparent distress Head: normocephalic, Atraumatic, +Poor dentition Eyes: normal inspection, EOMI Neck: supple, Trachea midline Respiratory/Chest: Normal breath sounds, CTA, No accessory muscle use Cardiovascular: Irregular irregular, No murmur Abdomen/GI:Soft, Non tender, Bowel sounds present Extremities/Musculoskeletal:normal inspection, 2+ LE edema, right lower extremity erythematous, left lower extremity with dressing Neurologic/Psych:AAOX3, grossly no focal neurological deficits Skin: normal color, warm Results & Data Results & Data Vital Signs (Past 12 Hours) Vital Signs Temp Pulse Resp BP Pulse Ox O2 Del Method 11/07/23 15:25 36.7 C 117 H 16 100/69 96 Room Air 11/07/23 12:12 36.7 C 113 H 16 93/60 L 98 Room Air 11/07/23 07:33 37.7 C H 104 H 17 98/69 L 96 Room Air Laboratory Results Short CBC 11/07/23 Range/Units 06:32 WBC 8.33 (4.8-10.8) K/ul Hgb 9.6 L (12.0-16.0) g/dl Hct 31.1 L (37.0-47.0) % Plt Count 263 (130-400) K/uL BMP 11/07/23 06:32 Sodium 137 Potassium 3.9 Chloride 104 Carbon Dioxide 25 BUN 26 H Creatinine 0.79 Glucose 106 H Calcium 8.1 L (13) Hypothyroidism Hypothyroidism type: acquired Qualified Code(s): E03.9 - Hypothyroidism, unspecified
[2023-11-07] MEDS: ALBUMIN 25% 25 GM/100 ML VIAL IV ONE (23:08)
[2023-11-08 06:08] LABS: Hematocrit (blood only) 26.3 % (37.0-47.0); Hemoglobin 8.4 g/dl (12.0-16.0); Mean Corpuscular Hemoglobin 29.8 pg (25.0-34.0); Mean Corpuscular Hgb Conc 31.9 g/dL (32.0-36.0); Mean Corpuscular Volume 93.3 fL (80.0-100.0); Mean Platelet Volume 9.2 fL (9.4-12.4); Nucleated RBC # (auto) 0.03 K/uL (0.00-0.12); Nucleated RBC % (auto) 0.4 %; Platelet Count 245 K/uL (130-400); RDW Coefficient of Variation 16.3 % (11.5-14.5); RDW Standard Deviation 55.5 fL (36.4-46.3); Red Blood Count 2.82 M/uL (4.20-5.40); White Blood Count 6.72 K/ul (4.8-10.8)
[2023-11-08 06:13] LABS: INR 1.9 (0.9-1.1); Prothrombin Time 19.7 Seconds (9.0-12.0)
[2023-11-08 06:24] LABS: BUN Creatinine Ratio 30.7 (10-20); Calcium 8.2 mg/dl (8.6-10.3); Creatinine Clr Calc Pharmacy 66.1 ml/min; Est GFR (African American) 91.7 ml/min; Est GFR (Non-African American) 79.1 ml/min; Potassium 3.8 mmol/L (3.5-5.1)
[2023-11-08] MEDS: AMOXICILLIN/CLAVULANATE 875 MG TAB PO SCH (10:09)
[2023-11-08 13:18] LABS: INR 1.8 (0.9-1.1); Prothrombin Time 18.5 Seconds (9.0-12.0)
[2023-11-08] MEDS: WARFARIN SOD 5 MG TAB PO SCH (16:34)
--- NOTE | 2023-11-08 17:24 | Hospitalist Progress Note ---
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 Oneal is a 72-year-old woman who has significant past medical history of chronic diastolic CHF, history of PSVT, HTN, thoracic aortic aneurysm, Edenilson- Danlos syndrome, secondary hyperparathyroidism, hypothyroidism, hyperlipidemia, BRANDIE on CPAP, asthma, vitamin D deficiency, GERD, history of diverticulitis with colon perforation, RLS, fibromyalgia, chronic pain syndrome, hypercoagulability, history of gastric bypass, depression, history of PTSD, history of PE who presented to ED for worsening leg swelling and admitted for concern for sepsis. On 10/30, OP notes reviewed where is was noted that the leg swelling is a chronic concern "Seen in clinic a month ago, lower legs were red and flaky with no open areas. Notes that they have gotten more swollen, have been weeping and are more painful" as per visit on 10/[address] Brock OP clinic visit. Has been trying to follow with OMFS as she is suppose to undergo extraction of her teeth due to hopeful shoulder replacement/repair. She notes the left side is much more painful and swollen than usual. Sepsis, multifactorial Poor dentition Hematoma of anterior plate Chronic lymphedema with superimposed cellulitis Periapical abscess --Facial CT:There is a 3 mm periapical lucency at ADA 27 demonstrating focal cortical breakthrough at the buccal surface. However, no soft tissue abscess identified. Multiple dental caries seen within the residual teeth. -Lactate: 1.3, procalcitonin: 1.8 -Blood cultures negative MRSA nares negative --Ceftriaxone, daptomycin>> transition to Unasyn>>Augmentin --S/P Facial Incision and Drainage and removal of multiple teeth by on 11/04/23 Appreciate oral maxillary surgery input Needs follow-up with surgery on discharge IV Unasyn changed to Augmentin Plan to discharge to rehab facility as able Atrial fibrillation with RVR H/O PSVT Coumadin initially held for surgery Continue metoprolol tartrate 25 mg 3 times daily Appreciate cardiology input Restarted IV heparin, Coumadin Monitor INR 1.8 today Adjust Coumadin dose as needed Plan to discontinue IV heparin once INR therapeutic Acute on Chronic Hear Failure with preserved EF Home torsemide held BNP 1099 --IV Lasix discontinued Appreciate cardiology input Resumed torsemide on 11/05/2023 Elevated troponin, likely demand iso RVR and heart failure exacerbation Elevated troponin: 51--> 52.9--> 32.5, stable Monitor Chronic Hypotension H/O POTS Continue increased midodrine at 10mg TID per cards H/O Prior PE/DVT H/O Protein C deficiency Supratherapeutic INR on presentation Coumadin held for surgery, now resume On IV heparin bridge Parkinson Disease RLS Continue ropinirole, carbidopa levodopa States uses rollator at baseline PT/OT eval BRANDIE CPAP as tolerated. Patient states uses intermittently Acute on Chronic Anemia H/O Gastric bypass H/O KASSANDRA Baseline Hb ~10's Iron, transferrin levels low Normal B12, folate levels Started on iron supplements Hemorrhoids +FOBT Monitor CBC Hydrocortisone PRN Chronic Pain Ehler Danlos syndrome Chronic R shoulder dislocation continue buprenorphine patch/oxy, lidocaine Ascending thoracic aortic aneurysm -Reportedly stable, hx measured at measuring 5.1 cm, , noted on ECHO at 4.5cm Continue home medications Hypothyroidism TSH 0.49 Continue levothyroxine PTSD Anxiety Continue mirtazapine and hydroxyzine prn DVT Px: Heparin gtt, Coumadin Code Status Full code Disposition Acute rehab as able Admission and Anticipated Discharge Date Admission Date: October 30, 2023 Subjective Patient is seen and examined at bedside No new complaints INR still subtherapeutic Leg edema slowly improving Denies any chest pain, dyspnea, nausea, vomiting, abdominal pain Review of Systems Review of Systems: All systems reviewed & are unremarkable except as noted in Subjective Physical Exam Physical Exam: Physical Exam: Vitals signs as noted above General Appearance:Obese, no apparent distress Head: normocephalic, Atraumatic, +Poor dentition Eyes: normal inspection, EOMI Neck: supple, Trachea midline Respiratory/Chest: Normal breath sounds, CTA, No accessory muscle use Cardiovascular: Irregular irregular, No murmur Abdomen/GI:Soft, Non tender, Bowel sounds present Extremities/Musculoskeletal:normal inspection, 2+ LE edema, right lower extremity erythematous, left lower extremity with dressing Neurologic/Psych:AAOX3, grossly no focal neurological deficits Skin: normal color, warm Results & Data Results & Data Vital Signs (Past 12 Hours) Vital Signs Temp Pulse Pulse Resp BP BP Pulse Ox 11/08/23 17:09 57 L 11/08/23 14:58 36.6 C 62 17 121/79 99 11/08/23 10:58 36.8 C 65 19 97/69 L 97 11/08/23 07:22 36.6 C 112 H 18 109/74 97 11/08/23 07:00 119 H O2 Del Method 11/08/23 17:09 11/08/23 14:58 Room Air 11/08/23 10:58 Room Air 11/08/23 07:22 Room Air 11/08/23 07:00 Laboratory Results Short CBC 11/08/23 Range/Units 05:45 WBC 6.72 (4.8-10.8) K/ul Hgb 8.4 L (12.0-16.0) g/dl Hct 26.3 L (37.0-47.0) % Plt Count 245 (130-400) K/uL BMP 11/08/23 05:45 Sodium 138 Potassium 3.8 Chloride 104 Carbon Dioxide 28 BUN 23 Creatinine 0.75 Glucose 102 H Calcium 8.2 L (13) Hypothyroidism Hypothyroidism type: acquired Qualified Code(s): E03.9 - Hypothyroidism, unspecified
[2023-11-09 07:31] LABS: Hematocrit (blood only) 30.1 % (37.0-47.0); Mean Corpuscular Hemoglobin 28.8 pg (25.0-34.0); Mean Corpuscular Hgb Conc 29.9 g/dL (32.0-36.0); Mean Corpuscular Volume 96.5 fL (80.0-100.0); Mean Platelet Volume 9.4 fL (9.4-12.4); Platelet Count 251 K/uL (130-400); RDW Coefficient of Variation 16.3 % (11.5-14.5); RDW Standard Deviation 57.5 fL (36.4-46.3); Red Blood Count 3.12 M/uL (4.20-5.40); White Blood Count 7.46 K/ul (4.8-10.8)
[2023-11-09 07:37] LABS: INR 1.7 (0.9-1.1); Prothrombin Time 17.5 Seconds (9.0-12.0)
[2023-11-09 08:03] LABS: BUN Creatinine Ratio 29.3 (10-20); Calcium 8.6 mg/dl (8.6-10.3); Creatinine Clr Calc Pharmacy 59.7 ml/min; Est GFR (African American) 82.3 ml/min; Potassium 3.7 mmol/L (3.5-5.1)
[2023-11-09] MEDS: ENOXAPARIN 80 MG/0.8 ML SYR SQ SCH (10:27)
[2023-11-09] MEDS: POLYETHYLENE (MIRALAX) 17 GM PACK PO PRN (12:07)
--- NOTE | 2023-11-09 13:36 | Hospitalist Progress Note ---
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 Oneal is a 72-year-old woman who has significant past medical history of chronic diastolic CHF, history of PSVT, HTN, thoracic aortic aneurysm, Edenilson- Danlos syndrome, secondary hyperparathyroidism, hypothyroidism, hyperlipidemia, BRANDIE on CPAP, asthma, vitamin D deficiency, GERD, history of diverticulitis with colon perforation, RLS, fibromyalgia, chronic pain syndrome, hypercoagulability, history of gastric bypass, depression, history of PTSD, history of PE who presented to ED for worsening leg swelling and admitted for concern for sepsis. On 10/30, OP notes reviewed where is was noted that the leg swelling is a chronic concern "Seen in clinic a month ago, lower legs were red and flaky with no open areas. Notes that they have gotten more swollen, have been weeping and are more painful" as per visit on 10/[address] Brock OP clinic visit. Has been trying to follow with OMFS as she is suppose to undergo extraction of her teeth due to hopeful shoulder replacement/repair. She notes the left side is much more painful and swollen than usual. Sepsis, multifactorial Poor dentition Hematoma of anterior plate Chronic lymphedema with superimposed cellulitis Periapical abscess --Facial CT:There is a 3 mm periapical lucency at ADA 27 demonstrating focal cortical breakthrough at the buccal surface. However, no soft tissue abscess identified. Multiple dental caries seen within the residual teeth. -Lactate: 1.3, procalcitonin: 1.8 -Blood cultures negative MRSA nares negative --Ceftriaxone, daptomycin>> transition to Unasyn>>Augmentin --S/P Facial Incision and Drainage and removal of multiple teeth by on 11/04/23 Appreciate oral maxillary surgery input Needs follow-up with surgery on discharge IV Unasyn changed to Augmentin Plan to discharge to rehab today Atrial fibrillation with RVR H/O PSVT Coumadin initially held for surgery Continue metoprolol tartrate 25 mg 3 times daily Appreciate cardiology input Monitor INR 1.7 today Adjust Coumadin dose as needed Change IV heparin to Therapeutic Lovenox Continue Lovenox, Coumadin until INR therapeutic. Acute on Chronic Hear Failure with preserved EF Home torsemide held BNP 1099 --IV Lasix discontinued Appreciate cardiology input Resumed torsemide on 11/05/2023 Elevated troponin, likely demand iso RVR and heart failure exacerbation Elevated troponin: 51--> 52.9--> 32.5, stable Monitor Chronic Hypotension H/O POTS Initially increased midodrine at 10mg TID Given blood pressure slowly rising, will adjust midodrine to 5 mg TID H/O Prior PE/DVT H/O Protein C deficiency Supratherapeutic INR on presentation Coumadin held for surgery, now resumed On Lovenox bridge till INR is therapeutic Parkinson Disease RLS Continue ropinirole, carbidopa levodopa States uses rollator at baseline PT/OT eval BRANDIE CPAP as tolerated. Patient states uses intermittently Acute on Chronic Anemia H/O Gastric bypass H/O KASSANDRA Baseline Hb ~10's Iron, transferrin levels low Normal B12, folate levels Started on iron supplements Hemorrhoids +FOBT Monitor CBC Hydrocortisone PRN Chronic Pain Ehler Danlos syndrome Chronic R shoulder dislocation continue buprenorphine patch/oxy, lidocaine Ascending thoracic aortic aneurysm -Reportedly stable, hx measured at measuring 5.1 cm, , noted on ECHO at 4.5cm Continue home medications Hypothyroidism TSH 0.49 Continue levothyroxine PTSD Anxiety Continue mirtazapine and hydroxyzine prn DVT Px: Lovenox, Coumadin Code Status Full code Disposition Acute rehab Admission and Anticipated Discharge Date Admission Date: October 30, 2023 Subjective Patient is seen and examined at bedside States feeling well INR still subtherapeutic Leg edema continues to improve Sitting in chair during my encounter Denies any chest pain, dyspnea, nausea, vomiting, abdominal pain Plan to discharge to rehab facility today Review of Systems Review of Systems: All systems reviewed & are unremarkable except as noted in Subjective Physical Exam Physical Exam: Physical Exam: Vitals signs as noted above General Appearance:Obese, no apparent distress Head: normocephalic, Atraumatic, +Poor dentition Eyes: normal inspection, EOMI Neck: supple, Trachea midline Respiratory/Chest: Normal breath sounds, CTA, No accessory muscle use Cardiovascular: Irregular irregular, No murmur Abdomen/GI:Soft, Non tender, Bowel sounds present Extremities/Musculoskeletal:normal inspection, 2+ LE edema, right lower extremity erythematous, left lower extremity with dressing Neurologic/Psych:AAOX3, grossly no focal neurological deficits Skin: normal color, warm Results & Data Results & Data Vital Signs (Past 12 Hours) Vital Signs Temp Pulse Pulse Pulse Resp BP BP 11/09/23 11:35 36.9 C 58 L 19 125/77 11/09/23 09:47 55 L 11/09/23 07:57 63 20 157/92 H 11/09/23 07:51 36.8 C 71 17 11/09/23 03:00 36.3 C L 56 L 16 115/77 Pulse Ox O2 Del Method 11/09/23 11:35 98 Room Air 11/09/23 09:47 11/09/23 07:57 11/09/23 07:51 97 Room Air 11/09/23 03:00 98 Room Air Laboratory Results Short CBC 11/09/23 Range/Units 06:51 WBC 7.46 (4.8-10.8) K/ul Hgb 9.0 L (12.0-16.0) g/dl Hct 30.1 L (37.0-47.0) % Plt Count 251 (130-400) K/uL BMP 11/09/23 06:51 Sodium 137 Potassium 3.7 Chloride 101 Carbon Dioxide 28 BUN 24 H Creatinine 0.82 Glucose 96 Calcium 8.6 (13) Hypothyroidism Hypothyroidism type: acquired Qualified Code(s): E03.9 - Hypothyroidism, unspecified
--- NOTE | 2023-11-09 13:57 | Discharge Summary ---
Date of Service November 09, 2023 Admission HPI Per Admitting Provider Patient is 73-year-old female with PMH POTS, chronic low BP, chronic pain, chronic right shoulder dislocation, Edenilson-Danlos syndrome, protein C deficiency, history DVT, PE, chronic anticoagulation with warfarin, chronic H FpEF, hypothyroidism, chronic anemia, BRANDIE, PTSD, anxiety, paroxysmal supraventricular tachycardia, obesity, history gastric bypass, and others listed below presented to ER with complaint of leg redness. History obtained from patient, inpatient and outpatient chart review. Patient reports has been having bilateral lower extremity redness. She reports her left leg has recently been worse than right leg. She reports has been having seeping from area. Was seen outpatient it is reported on 10/24/2023 patient was given IM Rocephin. She is currently on Keflex. Patient reports chronic bilateral lower extremity edema and she does not think she has had any worsening edema however is unsure. Denies any fever or chills. Patient denies any chest pain or shortness of breath. Her complaint currently is chronic pain and needing something for pain. Patient reports chronic pain, chronic back pain, chronic shoulder pain, reports has been having dental pain as her dental partial broke recently. Reports bilateral lower extremity pain. Patient states increased pain to left lower extremity since has had increased redness. Denies fever/chills, diaphoresis, N/V/D/C, ABBOTT, syncope, vision changes, neck pain, CP, SOB, orthopnea, palpitations, cough, sore throat, rhinorrhea, abdominal pain, other rashes, dysuria, urinary frequency, hematuria. Admission Exam Per Admitting Provider General: +complaining of back pain, extremity pain, dental pain but in no apparent distress, overweight elderly female Head: normocephalic, atraumatic Eyes: PERRL, EOM's intact, conjunctiva non-injected, anicteric ENT: normal inspection external ears, nose, mucous membranes moist Neck: supple, trachea midline Lungs: clear, no respiratory distress, no wheezing/rhonchi/rales CV: +tachycardia, rate 112, irregular rhythm, +BLE pretibial edema Abd: normal BS, soft, non-tender Ext: BLE: +edema, +chronic skin discoloration with LLE with chronic skin changes with overlying erythema, warmth and tenderness to palpation, +serous seeping, sensation to light touch intact Neuro: A&O x 3, no focal deficits noted, normal affect Skin: as above in extremities, otherwise warm, dry Principal Diagnosis Sepsis Periapical abscess Chronic lymphedema with superimposed cellulitis Subtherapeutic INR Acute on Chronic Hear Failure with preserved EF Discharge Data Allergies Allergy/AdvReac Type Severity Reaction Status Date / Time ammonia Allergy Severe FACE, Verified 09/26/23 10:47 LIPS, TONGUE EDEMA buspirone Allergy Severe NEURO Verified 09/26/23 10:47 COMPLICATIONS duloxetine Allergy Intermediate RASH Verified 09/26/23 10:47 ITCHING adhesive Allergy Mild skin tears Verified 09/26/23 10:47 vancomycin Allergy Unknown ON [facility] Verified 09/26/23 10:47 MED LIST diphenhydramine AdvReac Intermediate RESTLESS Verified 09/26/23 10:47 LEGS gabapentin AdvReac Intermediate MUSCLE Verified 09/26/23 10:47 STIFFNESS lisinopril AdvReac Intermediate cough Verified 09/26/23 10:47 NSAIDS (Non-Steroidal AdvReac Unknown not Verified 09/26/23 10:47 Anti-Inflamma supposed to use-S/P GASTRIC BYPASS venlafaxine AdvReac Unknown AFFECTS Verified 09/26/23 10:47 LEGS Consultations 10/30/23 16:57 ED Decision to Admit Stat 10/31/23 15:57 Consult Cardiology Routine 10/31/23 16:04 Consult Oromaxillofacial Surgery Routine Procedures Performed Operation Date: 11/04/23 08:20 Actual Procedures p Facial Incision and Drainage and (Not Applicable) - Raphael Mcqueen DMD s removal of multiple teeth(Not Applicable) - Raphael Mcqueen DMD Ordered Studies Laboratory Results WBC 7.46 K/ul (4.8-10.8) 11/09/23 06:51 RBC 3.12 M/uL (4.20-5.40) L 11/09/23 06:51 Hgb 9.0 g/dl (12.0-16.0) L 11/09/23 06:51 Hct 30.1 % (37.0-47.0) L 11/09/23 06:51 MCV 96.5 fL (80.0-100.0) 11/09/23 06:51 MCH 28.8 pg (25.0-34.0) 11/09/23 06:51 MCHC 29.9 g/dL (32.0-36.0) L 11/09/23 06:51 RDW Std Deviation 57.5 fL (36.4-46.3) H 11/09/23 06:51 RDW Coeff of Neftaly 16.3 % (11.5-14.5) H 11/09/23 06:51 Plt Count 251 K/uL (130-400) 11/09/23 06:51 MPV 9.4 fL (9.4-12.4) 11/09/23 06:51 Immature Gran % (Auto) 0.4 % 10/31/23 07:17 Neut % (Auto) 89.8 % 10/31/23 07:17 Lymph % (Auto) 4.2 % 10/31/23 07:17 [place] % (Auto) 5.3 % 10/31/23 07:17 Eos % (Auto) 0.1 % 10/31/23 07:17 Baso % (Auto) 0.2 % 10/31/23 07:17 Neut # (Auto) 8.63 K/uL (1.40-6.50) H 10/31/23 07:17 Lymph # (Auto) 0.40 K/uL (1.20-3.40) L 10/31/23 07:17 [place] # (Auto) 0.51 K/uL (0.11-0.59) 10/31/23 07:17 Eos # (Auto) 0.01 K/uL (0.00-0.50) 10/31/23 07:17 Baso # (Auto) 0.02 K/uL (0.00-0.20) 10/31/23 07:17 Immature Gran # (Auto) 0.04 K/uL (0.01-0.20) 10/31/23 07:17 Absolute Nucleated RBC 0.03 K/uL (0.00-0.12) 11/08/23 05:45 Nucleated RBC % (auto) 0.4 % 11/08/23 05:45 PT 17.5 Seconds (9.0-12.0) H 11/09/23 06:51 INR 1.7 (0.9-1.1) H 11/09/23 06:51 APTT 57 Seconds (21-31) H 10/30/23 14:52 PTT Ratio 2.0 04/24/24 14:52 Heparin Anti-Xa, Unfract 0.60 IU/ml (0.3-0.7) 11/09/23 06:51 Sodium 137 mmol/L (136-145) 11/09/23 06:51 Potassium 3.7 mmol/L (3.5-5.1) 11/09/23 06:51 Chloride 101 mmol/L (98-107) 11/09/23 06:51 Carbon Dioxide 28 mmol/L (21-32) 11/09/23 06:51 Anion Gap 8 (3-11) 11/09/23 06:51 BUN 24 mg/dl (6-23) H 11/09/23 06:51 Creatinine 0.82 mg/dl (0.6-1.2) 11/09/23 06:51 Est Cr Clr Drug Dosing 59.7 ml/min 11/09/23 06:51 Est GFR ( Amer) 82.3 ml/min 11/09/23 06:51 Est GFR (Non-Af Amer) 71.0 ml/min 11/09/23 06:51 BUN/Creatinine Ratio 29.3 (10-20) H 11/09/23 06:51 Glucose 96 mg/dl (70-99(Fasting)) 11/09/23 06:51 Lactate 1.1 mmol/L (0.4-2.0) 11/07/23 23:09 Calcium 8.6 mg/dl (8.6-10.3) 11/09/23 06:51 Phosphorus 2.8 mg/dl (2.5-4.9) 11/04/23 05:57 Magnesium 1.8 mg/dl (1.7-2.4) 11/07/23 23:09 Iron 15 mcg/dl (35-150) L 11/01/23 05:17 TIBC 252 mcg/dl (250-450) 11/01/23 05:17 Unsaturated IBC 237 mcg/dl (155-355) 11/01/23 05:17 Transferrin % Sat 6 % (15-50) L 11/01/23 05:17 Ferritin 149.2 ng/ml (8-388) 11/01/23 05:17 Total Bilirubin 0.6 mg/dl (0.2-1.0) 10/31/23 07:17 Direct Bilirubin 0.2 mg/dl (0-0.2) 10/30/23 14:52 AST 14 U/L (13-39) 10/31/23 07:17 ALT 4 U/L (7-52) L 10/31/23 07:17 Alkaline Phosphatase 109 U/L (34-104) H 10/31/23 07:17 Troponin I High Sens 32.5 pg/ml (0-14) H 10/31/23 07:17 C-Reactive Protein 25.62 mg/dl (0-0.5) H 11/01/23 05:17 B-Natriuretic Peptide 1099 pg/ml (0-100) H 10/31/23 10:53 Total Protein 4.8 gm/dl (6.0-8.3) L D 10/31/23 07:17 Albumin 2.7 gm/dl (3.4-5.0) L 10/31/23 07:17 Globulin 2.1 gm/dl (2.5-4.0) L 10/31/23 07:17 Albumin/Globulin Ratio 1.3 (0.9-2) 10/31/23 07:17 Vitamin B12 278 pg/ml (180-914) 11/01/23 05:17 Folate 9.37 ng/ml (>5.38) 11/01/23 05:17 Procalcitonin 1.83 ng/ml (0-0.5) H 10/30/23 14:52 TSH 0.498 uIu/ml (0.300-4.500) 10/30/23 17:32 Urine Color Yellow 10/30/23 18:02 Urine Appearance Clear (Clear) 10/30/23 18:02 Urine pH 5.5 (4.5-7.5) 10/30/23 18:02 Ur Specific [place] 1.021 (1.000-1.030) 10/30/23 18:02 Urine Protein Trace (Negative) H 10/30/23 18:02 Urine Glucose (UA) Negative (Negative) 10/30/23 18:02 Urine Ketones Negative (Negative) 10/30/23 18:02 Urine Blood Negative (Negative) 10/30/23 18:02 Urine Nitrite Negative (Negative) 10/30/23 18:02 Urine Bilirubin Negative (Negative) 10/30/23 18:02 Urine Urobilinogen Negative (Negative) 10/30/23 18:02 Ur Leukocyte Esterase Negative (Negative) 10/30/23 18:02 Urine WBC (Auto) 0-5 /hpf (0-5) 10/30/23 18:02 Urine RBC (Auto) 0-2 /hpf (0-2) 10/30/23 18:02 U Hyaline Cast (Auto) 0-2 /lpf (0-2) 10/30/23 18:02 U Epithel Cells (Auto) 0-2 /hpf (0-2) 10/30/23 18:02 Urine Bacteria (Auto) None Seen (None Seen) 10/30/23 18:02 Nasal Screen MRSA (PCR) Negative (Negative) 10/31/23 Unknown Stool Occult Bld Scrn Positive (Negative) A 11/01/23 16:10 Hepatitis C Ab (EIA) NON-REACTIVE (NON-REACTIVE) 11/01/23 05:17 Impressions Chest X-Ray 10/30/23 16:46 XR chest 1V portable HISTORY: Sepsis COMPARISON: Chest 06/28/2023. FINDINGS: No pneumothorax. No pleural effusions. Surgical clips again noted within the left upper quadrant. No focal lung consolidations to suggest a pneumonia. No evidence for pulmonary edema. The heart remains mildly enlarged. No acute fractures identified. Slightly rotated study. Chronic degenerative changes again noted within the shoulders. IMPRESSION: Stable cardiomegaly. Otherwise, no acute process within the chest. ACT 112: Negative or not required by law. Electronically signed by: Tavares Jaramillo M.D. 10/30/2023 5:[address] 10/31/23 10:31 CT facial bones wo/w con CT DOSE: CLINICAL HISTORY: periapical abscess? left facial swelling TECHNIQUE: Multiaxial CT images of the facial bones were performed both before and after the intravenous administration of contrast. Sagittal and coronal reformations were also obtained. A dose lowering technique was utilized adhering to the principles of ALARA. COMPARISON STUDY: None. FINDINGS: Suboptimal evaluation within and surrounding the oral cavity due to the dental artifact. No significant soft tissue swelling within the face. No loculated fluid collections to suggest an abscess. No soft tissue masses identified. The visualized brain parenchyma and orbits are unremarkable. The pterygopalatine fossa is maintained. The prevertebral soft tissues and the epiglottis are normal in thickness. The parotid and submandibular glands are sy mmetric. No upper cervical lymphadenopathy identified. The major cervical vessels appear patent. No acute fractures identified. The paranasal sinuses and mastoid air cells are clear. Multiple dental caries are seen within the residual teeth. There is a 3 mm periapical lucency at ADA 27 demonstrating focal cortical breakthrough at the buccal surface. This is best seen on axial image 95. No adjacent abscess identified. IMPRESSION: 1. There is a 3 mm periapical lucency at ADA 27 demonstrating focal cortical breakthrough at the buccal surface. 2. However, no soft tissue abscess identified. 3. Multiple dental caries seen within the residual teeth. ACT 112: Negative or not required by law. Electronically signed by: Tavares Jaramillo M.D. 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 Oneal is a 72-year-old woman who has significant past medical history of chronic diastolic CHF, history of PSVT, HTN, thoracic aortic aneurysm, Edenilson- Danlos syndrome, secondary hyperparathyroidism, hypothyroidism, hyperlipidemia, BRANDIE on CPAP, asthma, vitamin D deficiency, GERD, history of diverticulitis with colon perforation, RLS, fibromyalgia, chronic pain syndrome, hypercoagulability, history of gastric bypass, depression, history of PTSD, history of PE who presented to ED for worsening leg swelling and admitted for concern for sepsis. On 10/30, OP notes reviewed where is was noted that the leg swelling is a chronic concern "Seen in clinic a month ago, lower legs were red and flaky with no open areas. Notes that they have gotten more swollen, have been weeping and are more painful" as per visit on 10/[address] Brock OP clinic visit. Has been trying to follow with OMFS as she is suppose to undergo extraction of her teeth due to hopeful shoulder replacement/repair. She notes the left side is much more painful and swollen than usual. Sepsis, multifactorial Poor dentition Hematoma of anterior plate Chronic lymphedema with superimposed cellulitis Periapical abscess --Facial CT:There is a 3 mm periapical lucency at ADA 27 demonstrating focal cortical breakthrough at the buccal surface. However, no soft tissue abscess identified. Multiple dental caries seen within the residual teeth. -Lactate: 1.3, procalcitonin: 1.8 -Blood cultures negative MRSA nares negative --Ceftriaxone, daptomycin>> transition to Unasyn>>Augmentin --S/P Facial Incision and Drainage and removal of multiple teeth by on 11/04/23 Appreciate oral maxillary surgery input Needs follow-up with surgery on discharge IV Unasyn changed to Augmentin Plan to discharge to rehab today Atrial fibrillation with RVR H/O PSVT Coumadin initially held for surgery Continue metoprolol tartrate 25 mg 3 times daily Appreciate cardiology input Monitor INR 1.7 today Adjust Coumadin dose as needed Change IV heparin to Therapeutic Lovenox Continue Lovenox, Coumadin until INR therapeutic. Acute on Chronic Hear Failure with preserved EF Home torsemide held BNP 1099 --IV Lasix discontinued Appreciate cardiology input Resumed torsemide on 11/05/2023 Elevated troponin, likely demand iso RVR and heart failure exacerbation Elevated troponin: 51--> 52.9--> 32.5, stable Monitor Chronic Hypotension H/O POTS Initially increased midodrine at 10mg TID Given blood pressure slowly rising, will adjust midodrine to 5 mg TID H/O Prior PE/DVT H/O Protein C deficiency Supratherapeutic INR on presentation Coumadin held for surgery, now resumed On Lovenox bridge till INR is therapeutic Parkinson Disease RLS Continue ropinirole, carbidopa levodopa States uses rollator at baseline PT/OT eval BRANDIE CPAP as tolerated. Patient states uses intermittently Acute on Chronic Anemia H/O Gastric bypass H/O KASSANDRA Baseline Hb ~10's Iron, transferrin levels low Normal B12, folate levels Started on iron supplements Hemorrhoids +FOBT Monitor CBC Hydrocortisone PRN Chronic Pain Ehler Danlos syndrome Chronic R shoulder dislocation continue buprenorphine patch/oxy, lidocaine Ascending thoracic aortic aneurysm -Reportedly stable, hx measured at measuring 5.1 cm, , noted on ECHO at 4.5cm Continue home medications Hypothyroidism TSH 0.49 Continue levothyroxine PTSD Anxiety Continue mirtazapine and hydroxyzine prn DVT Px: Lovenox, Coumadin Code Status Full code Disposition Acute rehab Total Time Total Time Spent Total Time Spent (In Minutes): 65 minutes Discharge Plan Discharge Items Patient Disposition: Transfer Inpatient Rehab Fac Reason For Visit: CELLULITIS Discharge Diagnosis: Sepsis Periapical abscess Chronic lymphedema with superimposed cellulitis Subtherapeutic INR Acute on Chronic Hear Failure with preserved EF Activity: Per Instructions section Exercise/Sports: Gradually increase as tolerated Non-emergency contact: Primary Care Provider and Surgeon Call non-emergency contact if: you have any medication questions, your symptoms worsen, your pain is concerning for you and you have a fever Follow-up/Referrals: Kaylah AgeeKinsale [Primary Care Provider] - Diet: Heart Healthy Diet Texture: Pureed (blended smooth) Diet Comment: dental soft Addtl Attending Provider Instructions: ADDITIONAL ACTIVITY RECOMMENDATIONS: * It is very important to keep your mouth clean to prevent infection. * rinse with the Peridex as directed then 2 x a day * rinse with salt water after every meal * it is very important to keep well hydrated, this prevents fever and possible dry socket pain SPECIAL CARE INSTRUCTIONS: *It is not uncommon that between day 2-4 that your swelling will be at its worst this is very normal, do not be alarmed. * rinsing your mouth with 1/2 teaspoon salt in 8 ounces warm water. This rinse should be used every 4-6 hours. * Some swelling is common. It should gradually decrease within 4-5 days. * A certain amount of bleeding is to be expected. It is often possible to control mild oozing by placing folded gauze over the area and biting down for 30 minutes. If you are unable to control excessive bleeding, call Dr Mcqueen at [phone] * You may experience some discomfort for a few days. If pain or swelling increases, Call Dr Mcqueen * Return to the office for a follow up check up on: Please set up follow up upon discharge from [facility] * office address--[address] 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 Gomez in 2 to 3 weeks Follow-up with your surgeon Dr. Mcqueen as recommended --Continue Lovenox bridge with Coumadin until INR is therapeutic between 2.0-3.0 -- Check PT/INR on 11/10/2023. -- Your INR is 1.7 on 11/09/2023. Take 7.5 mg Coumadin today. Further adjustment of Coumadin dose as per your physician at rehab facility. -- Complete the antibiotic course Augmentin for 3 more days. Seek immediate medical attention if your symptoms reoccur or worsen Please take all medications as instructed on discharge list below. Please call if you have any questions or problems. You can reach a [facility] hospitalist on duty at [facility] 24 hours a day by calling [phone] Call your Primary Care doctor if any of the following symptoms or problems start or get worse: * Shortness of breath or difficulty breathing * Wake up at night short of breath * Chest pain * Cough * Swelling of your hands, feet, or legs * More fatigued or tired with your normal activity * Palpitations - sudden fast heart beats WEIGHT * Weigh yourself every morning after using the bathroom. * Use the same scale. * Wear the same amount of clothing. * Write your weight down on a chart. * Call your Primary Care doctor if you gain more than 2-3 pounds in 1-2 days. MEDICATIONS * Use this discharge instruction sheet for medication instructions. * Take your medications at the time your doctor ordered. * Do not skip a dose of your medicines. * If you miss a dose of medicine, take it as soon as possible, but DO NOT DOUBLE A DOSE. * Read your medicine information when you get home. * Know all of the side effects of your medicine. If in doubt, ask your pharmacist * Call your Primary Care doctor's office if you have any side effects. * Be sure all of your doctors know what medicine and herbs you take (including cold, flu, and herbal medicine). Take the following with you to your follow-up doctor appointments: * Weight Chart * Medication List * List of questions Do not drink excessive alcohol, beer or wine. Pending Studies at Discharge: No Stand-Alone Forms: My [facility] Skilled Items Patient informed of condition?: Yes DNR: No Discharge Level of Care: Acute rehab Communicable Disease: No Discharge Prognosis: Stable Lines: None Urinary Catheter: No Medications and DC Order Prescriptions: New hydrocortisone [Proctosol HC] 2.5 % Cream With Perineal Applicator 1 applic EXT Q4H PRNQty: 0 0RF ferrous sulfate 325 mg (65 mg iron) Tablet,Delayed Release (Dr/Ec) 325 mg PO QAM Qty: 0 0RF amoxicillin-pot clavulanate 875-125 mg Tablet 1 tab PO BIDM Qty: 0 0RF enoxaparin [Lovenox] 80 mg/0.8 mL Syringe 80 mg subcut Q12H Qty: 0 0RF metoprolol tartrate 25 mg Tablet 25 mg PO TID Qty: 0 0RF midodrine 2.5 mg Tablet 5 mg PO TID@0800,1300,1800 Qty: 0 0RF Continued atorvastatin 20 mg tablet 20 mg PO .@0800 levothyroxine 50 mcg tablet 50 mcg PO .@08 montelukast 10 mg tablet 10 mg PO .@1999 hydroxyzine HCl 25 mg Tablet 25 mg PO QID PRN (Reason: ANXIETY/ITCHING) carbidopa-levodopa 25-100 mg Tablet 1 tab PO .0800,1200,1600,1999 fluticasone propionate [Flonase Allergy Relief] 50 mcg/actuation [place],Suspension 2 spray INTRANASAL .@0800,1999 buprenorphine 15 mcg/hour patch weekly 1 patch topical WK Rx Instructions: THURSDAYS Saccharomyces boulardii [Florastor] 250 mg Capsule 250 mg PO .@799,1999 warfarin 4 mg tablet 4 mg PO UD Rx Instructions: SAT, SAT, SAT @1700 ergocalciferol (vitamin D2) 25,000 unit Capsule 50,000 unit PO .WED@0800 Patient Comments: sat torsemide 20 mg Tablet 40 mg PO .@0800 warfarin 6 mg Tablet 6 mg PO UD Rx Instructions: SAT,SAT,SAT,SAT @1700 ropinirole 5 mg Tablet 2.5 mg PO .@0800,1500,1999 omeprazole 20 mg Tablet,Delayed Release (Dr/Ec) 40 mg PO .@0800 potassium chloride 20 mEq packet 20 meq PO DAILY Qty: 30 0RF Rx Instructions: cannot tolerate pill loperamide 2 mg Tablet 2 mg PO Q6H PRN (Reason: Diarrhea) acetaminophen [Tylenol Extra Strength] 500 mg Tablet 1,000 mg PO Q8H PRN (Reason: TEMP >100F/PAIN) mirtazapine 30 mg Tablet 30 mg PO .@1999 Discontinued metoprolol tartrate 25 mg Tablet 25 mg PO .@0800 Rx Instructions: HOLD FOR SBP < 100 cephalexin 500 mg capsule 500 mg PO BID Rx Instructions: started 10/27/23 midodrine 2.5 mg tablet 3.75 mg PO TID Rx Instructions: 1 07/09 TABS @ 0800,1500,1999 Discharge Orders: Discharge Order (Routine); Ordered 11/09/23 Ordered By: Yosi Santana Admission Data Admit Date/Time: 10/30/23 18:16 Attending Provider: Yosi Santana Admit Provider: Jeannette Sanford Primary Care Provider: Kaylah AgeeKinsale Other Providers: Jeannette Sanford; Rashawn Hirsch; Raphael Mcqueen; [facility]
[2023-11-09] MEDS: MIDODRINE HCL 2.5 MG TAB PO SCH (14:33)
[2023-11-09] MEDS: WARFARIN SOD 7.5 MG TAB PO SCH (17:07)
--- NOTE | 2023-11-16 17:52 | Operative Report ---
PG Post Operative Report Pre & Post Diagnosis Operation Date: 11/04/23 08:20 Pre-Op Diagnosis: fractured teeth and facial cellulitics Post-Op Diagnosis: fractured teeth and facial cellulitics I identified the patient and participated in the time-out.: Yes Procedure Operation Date: 11/04/23 08:20 Actual Procedures p Facial Incision and Drainage and (Not Applicable) - Raphael Mcqueen DMD s removal of multiple teeth(Not Applicable) - Raphael Mcqueen DMD Surgeon Raphael Mcqueen, MARINA Staff Research Associate none Estimated Blood Loss 5 Findings Consistent with Post-Op Diagnosis Specimens none Anesthesia Type General Complications none Disposition Accompanied Patient To Recovery: Yes Indications infected teeth, bleeding gums, fractured and abscess teeth Description of Procedure Pre-op= Fractured and Infected teeth 14 teeth and 2 quadrants of alveoplasty CPT 70900 Drainage of right subglandular abscess right side CPT 32984 Drainage of palatal infection (midline) hematoma D7210 (6) for # 4,5,6,8,9,11 D7140 (4) for #12,24,25,26 D7210 (4) for #20,22,23,31 D7310 (2) for upper and lower Alveoplasty Once cleared for surgery general anesthesia was achieved, the eyes were protected by the anesthesia dept criteria.. A time out was take for patient ID, antibiotics, equipment and position verification once all agreed the procedure began. Local anesthesia was given into each area using Marcaine with a vasoconstrictor ( 1.8 ml per site). A throat pack was placed after the oral cavity was irrigated with saline. Once a surgical level of anesthesia was obtained and the local anesthesia was given time for the blocks the surgery was started. I turned my attention to the maxilla first. Upper Surgical extraction D7210 of # 4,5,6,8,9,11,12 + Alveoplasty and drainage of chronic hematoma of palate CPT 38852 An Incision was made across the maxilla . The full thickness flap was reflected, bone removed with a rongeur, the teeth were now visualized, they were grossly infected and fractured. There was a large chronic hematoma behind the upper front teeth with clotted blood, this was evaluated upon reflection of the palatal flap and the infected tissue was cut away to allow a more health non infected tissue for closure. The teeth were very brittle and the bone was very dense and irregular. All the upper teeth were removal with moved an 81 elevator and dental forceps. Alveoplasty 1 quadrant,once all the upper teeth were extracted the irregular bony margins were trimmed, smoothed and sutured closed with a 2-0 chromic . An excellent shaped anatomic ridge resulted for future denture construction. Incision and Drainage right masseter space abscess CPT 41767 Using a 15 blade an incision was made lateral to the alveolar ridge. From the retromolar pad anterior to the left retromolar area. Once the incision was made a lot of pus extruded from the site. A curved hemostat was carefully placed into the infected space along the medial side of the lower jaw and into the submandibular and masseter space. Some further drainage was now allowed to escape. I palpated the cheek, floor of the mouth and tonsillar fold area and no further drainage was expressed. The area was irrigated with at least 100 ml of NS solution. I now turned my attention to the carious infected teeth Lowers Simple extractions D7140 #24,25,26 and Surgical extractions of D7210 of #20,22,23,31 + Alveoplasty The full thick Muco-periosteal flap was made on the external oblique ridge to avoid the lingual nerve from the right to left side. The flap was reflected to expose the 7 fractured roots and teeth. The drill with a round bur was used to remove bone, a fissure bur was used to split the teeth.The teeth were now removed with a 301 elevator and dental forceps, the nerve was intact, there was no bleeding. Alveoplasty 1 quadrant --The bone was trimmed, smoothed. The large flap was closed with a 2-0 chromic sutures. An excellent shaped anatomic ridge resulted for future denture construction. When all the teeth were removed I inspected the sites to insure all bleeding was controlled. I removed the throat pack and suctioned the throat. Bilateral gauze pressure dressings were placed. All instrument and sponge count was correct. The patient was allowed to awake from the anesthesia. Once full awake the anesthesia tube was removed and the patient was taken to the recovery room with all vital sign stable. The patient tolerated the surgery very well. I will follow the patient in my office, Rx and instructions will be given upon discharge. I attest to the content of the Intraoperative Record and any orders documented therein. Any exceptions are noted below.
== END 2023-11-09 19:50 | DRG 871 ==
LOC: ED 14:07 → EDINP 18:16 → SUATTDRO 18:16 → 2S 10-31 06:00

== ENCOUNTER 2023-12-31 05:10 | Inpatient (IN) ==
--- NOTE | 2023-12-31 05:15 | Emergency Department Note ---
Impression & Plan Cellulitis of leg, right, Acute pain of both shoulders ED Provider Note CHIEF COMPLAINT: Shoulder injuries HISTORY OF PRESENTING ILLNESS: This 73-year-old female patient presents to the emergency department via EMS for evaluation after a fall with concern for bilateral dislocated shoulders. The patient is from [facility] and states that she was trying to go to the bathroom when her legs started giving out on her. She caught herself in the doorway and tried to keep herself upright with her arms pushing against the doorway. However, her arms and legs could not support her and she slid herself down the door jam hurting her bilateral shoulders from the awkward movements. She states that she did not actually fall or land on the ground, but slid herself down slowly. She did not hit her head or any other part of her body. 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 The patient also has generalized pain all over that is worse in her shoulders. The patient also has a history of cellulitis and poor circulation to the R>L lower extremities. The patient thinks that her symptoms may be at baseline. However, she has been having more trouble getting shoes on her right foot and more trouble walking on the right foot due to increased swelling. She denies any fevers. No discharge from the legs. She did have a spinal injection about 1 week ago for her chronic pain. Denies any loss of control of their bowel or bladder functions. Denies any changes in sensation of her legs compared to her baseline. Denies any saddle paresthesias. Denies abdominal pain, nausea, or vomiting. Denies urinary symptoms or changes in their BMs. REVIEW OF SYSTEMS: See HPI for pertinent positives and pertinent negatives. ALLERGIES: See below MEDICATIONS: See below PAST MEDICAL HISTORY: See below PHYSICAL EXAM: VITALS: Vitals are noted on the nurse's note and reviewed by myself. GENERAL: Non toxic, no acute distress, non-diaphoretic. SKIN: The patient has significant erythema and edema to the right lower extremity. Minimal weeping from the edema. No fluctuance or purulent discharge. She also has some mottling discoloration to the right foot, but still has good warmth and pulses. Capillary refill <2 sec. EYES: PERRLA. EOMI. Conjunctivae without injection, sclerae without icterus. NOSE: Patent without discharge. MOUTH: Mucous membranes moist. Uvula midline. Airway patent. NECK: Supple without nuchal rigidity. HEART: Regular rate and rhythm without murmurs gallops or rubs. LUNGS: Clear to auscultation bilaterally without wheezes, rales or rhonchi. No retractions or accessory muscle use. ABDOMEN: Positive bowel sounds x 4. Normal tympanic percussion. Soft, nontender. No masses or organomegaly. Kim sign negative. No guarding or rebound tenderness. No focal RLQ or LLQ tenderness. MUSCULOSKELETAL: The patient has obvious deformities of the bilateral shoulders, but the deformities appear chronic. No obvious acute dislocation noticed on exam. The patient is tender to palpation over the bilateral shoulders. No tenderness to palpation of the bilateral clavicles. No tenderness to palpation of the bilateral humerus, elbows, forearms, wrists, or hands. Radial pulses 2+. See skin exam. The patient is tender to palpation over the right lower extremity from the edema. She is still able to move the bilateral lower extremities, but weaker on the right side due to the edema. Dorsalis pedis and posterior tibial pulse 2+. NEURO: Patient was alert and oriented. No focal neurological deficits. DIFFERENTIAL DIAGNOSIS: Differential diagnosis includes fracture, subluxation, dislocation, contusion, ligamentous injury, neurovascular, compartment syndrome, rhabdomyolysis, cellulitis, abscess sepsis, compartment syndrome, fluid overload, arterial occlusion, DVT, SVT, or others. ED COURSE AND MEDICAL DECISION MAKING: HISTORY FROM INDEPENDENT HISTORIAN: Additional history was obtained from EMS and [facility] staff. EKG: EKG was interpreted by myself as normal sinus rhythm at 76 bpm with incomplete right bundle branch block, but no acute ST or T wave changes. MEDICATIONS GIVEN: The patient was given morphine 3 mg IV and Zofran 4 mg IV by EMS. She was given an additional morphine 4 mg IV for pain in the ER. She was given Rocephin 2 g IV and daptomycin 225 mg IV. 250 mL normal saline solution bolus. INTERPRETATION OF LABS: I interpreted the labs with full lab results as below in the lab section of this note. White blood cell count elevated at 17.12. Hemoglobin low, but improved at 10.7. Platelet count normal 155. INR is subtherapeutic at 1.0. PT 10.6. Sodium 133 and BUN 31, but BMP otherwise without acute abnormalities. High-sensitivity troponin normal. Lactate normal. Procalcitonin elevated at 5.59. INTERPRETATION OF IMAGING: X-rays as interpreted by myself and Dr. Campbell show chronic changes more so on the right, but no obvious acute dislocation or fracture. Radiology report is still pending. EXTERNAL RECORDS REVIEWED: We reviewed the patient's most recent admission as well as recent images of her cellulitis. CONSULTATIONS: On-call hospitalist MDM SUMMARY: I examined the patient. The patient lowered herself to the ground in a doorway because her legs were too weak to get her to the bathroom this morning. She did not fall and did not hit her head. She is complaining of bilateral shoulder pain. She has a history of EDS and has a chronic dislocation of the right shoulder and chronic problems with the left shoulder. She also has a known cellulitis to the right lower extremity with poor circulation. The patient feels that her right leg is at baseline, but based on previous images and her medical records, the redness and swelling appears much worse. An IV lock was placed and labs were drawn. The patient had been given morphine 3 mg IV and Zofran 4 mg IV by EMS. She was given additional morphine 4 mg IV for pain in the ER. X-rays as interpreted by myself and Dr. Campbell show chronic changes more so on the right, but no obvious acute dislocation or fracture. Radiology report is still pending. The patient was independently evaluated by Dr. Campbell, who agrees with my assessment and treatment plan. The patient's right lower extremity cellulitis appears worse compared to her previous. Therefore, we feel the patient requires admitted for further evaluation and treatment. Laboratory studies including lactate, procalcitonin, and blood cultures were ordered. However, nursing staff had difficulty obtaining an IV and blood work. The patient was also ordered Rocephin 2 g IV and daptomycin 225 mg IV for after blood cultures were able to be obtained. The patient was given a 250 mL normal saline solution bolus. Lactate was normal, but procalcitonin elevated at 5.59. White blood cell count elevated at 17.12. The patient is on Coumadin, but subtherapeutic at 1.0. Remainder the laboratory studies as above. Due to the patient's right lower extremity cellulitis, leukocytosis, and elevated procalcitonin level, we feel the patient requires admission for further management. I spoke to the on-call hospitalist who agreed to admit the patient. Please refer to their dictation for further details. The patient's care was transferred in stable condition. DIAGNOSIS: Right lower extremity cellulitis Bilateral shoulder pain Past Med/Surg History Problem List (Updated 12/31/23 @ 21:12 by Sandra Zelaya PA-C) Acute pain of both shoulders (Acute) Shoulder pain, acute Preoperative cardiovascular examination Paroxysmal atrial fibrillation Cellulitis (Acute) Leukocytosis (Acute) Sepsis (Acute) BRANDIE (obstructive sleep apnea) Chronic hypotension Elevated troponin Tachycardia Edenilson-Danlos syndrome Hematoma of oral cavity Bleeding gums Elevated INR (Acute) Infected tooth intermediate (current) use of anticoagulants (Acute) Sleep apnea intermittently able to tolerate CPAP Back problem Heart disease Bronchitis Arthritis Dislocation closed, shoulder Chronic heart failure with preserved ejection fraction (HFpEF) Recurrent falls Encounter for pre-operative examination Thoracic aortic aneurysm (Acute) Paroxysmal SVT (supraventricular tachycardia) Cellulitis of right foot Ambulatory dysfunction Arthritis of foot Cellulitis of foot, right (Acute) Sepsis Left leg pain (Acute) Edema (Acute) Cellulitis (Acute) Leukocytosis (Acute) Cellulitis of left leg Traumatic ecchymosis of left lower leg DVT prophylaxis Chronic pain (Acute) Obesity intermediate current use of anticoagulant therapy (Acute) Cellulitis of leg, right (Acute) Fall (Acute) Rhabdomyolysis (Acute) JAEL (acute kidney injury) (Acute) Acute hypokalemia (Acute) Contusion of multiple sites (Acute) Acute UTI (Acute) Adult failure to thrive (Acute) COVID-19 Unable to care for self Bilateral lower leg cellulitis (Acute) Leukocytosis (Acute) Generalized weakness (Acute) Sepsis Shoulder subluxation, right (Acute) Cellulitis of lower extremity Dislocation of right shoulder joint Leg swelling (Acute) Hypokalemia (Acute) Bilateral leg pain (Acute) Bacteremia (Acute) Chronic pain syndrome (Acute) Lymphedema (Acute) Diverticulitis Diverticular disease of intestine with perforation and abscess Fever (Acute) Acute UTI (urinary tract infection) (Acute) Sepsis (Acute) Anemia Acute exacerbation of chronic low back pain Opioid dependence Fibromyalgia History of DVT (deep vein thrombosis) chronic anticoagulation Protein C deficiency Peripheral neuropathy GERD (gastroesophageal reflux disease) Gastroparesis Asthma uses PRN INH 3-4 x wk Hypothyroidism Restless leg syndrome Edenilson-Danlos syndrome (Acute) ISAC (generalized anxiety disorder) Pulmonary embolism 07/2018 - treated w/ lovenox - unk etiology Medical History (Updated 12/31/23 @ 21:12 by Sandra Zelaya PA-C) Hx of blood clots Thyroid disease Skin cancer Head injury Parkinson disease Acute kidney injury Abdominal hernia Coagulopathy Hypokalemia Weakness Dysphagia History of colon polyps Difficult intravenous access History of intestinal obstruction Bulging of intervertebral disc Osteoporosis Osteoarthritis Renal cyst History of colon polyps Thyroid nodule Hearing deficit ADHD Hyperlipidemia Claustrophobia Thoracic aortic aneurysm follows w/ Dr. Arredondo - evaluated within last 6 mo Surgical History (Updated 11/14/23 @ 00:09 by Chandler Morton) History of incision and drainage (11/04/23) Facial Incision and Drainage and removal of multiple teeth(Not Applicable) - Raphael Mcqueen, DMD Hx of melanoma excision shoulder Self extubation attempted post gastric bypass History of laparotomy History of left knee replacement History of intestinal surgery History of right knee joint replacement History of arthroscopy of left knee History of abdominoplasty + hernia repair History of bilateral breast reduction surgery History of cholecystectomy History of tonsillectomy History of gastric bypass History of esophagogastroduodenoscopy (EGD) History of colonoscopy 2019 Status post biopsy of thyroid gland benign Family History Uncle Stomach cancer Cancer Family/Other Breast cancer Grandfather Cancer Mother Heart disease Hypertension Stroke Grandmother Heart disease Stroke Other No family history of adverse response to anesthesia No pertinent family history in first degree relatives Social History Smoking Status: Never smoker Second Hand Exposure: No; Do You Dip or Chew Tobacco: No; Hx Alcohol Use: No Hx Substance Use: No Preferred Language: [place]an Communication Ability: Effective Communication Ability Comment: pt is obtunded Visual Impairment: Limited Hearing Ability: Normal Economic History Teacher Required: No Beliefs That Will Affect Care: None marital status: Single Current Living Situation: Alone Current Living Situation Comment: [place] current occupational status: retired How many Children do You have: 0 Other Information That Helps Us Care for You: No Feels Safe at Home: Yes Safety Concerns: Feels Safe At This Time Diet: regular during the past year weight has: remained stable Assistive Devices: Walker Allergies Allergies Allergy/AdvReac Type Severity Reaction Status Date / Time ammonia Allergy Severe FACE, Verified 12/19/23 13:59 LIPS, TONGUE EDEMA buspirone Allergy Severe NEURO Verified 12/19/23 13:59 COMPLICATIONS duloxetine Allergy Intermediate RASH Verified 12/19/23 13:59 ITCHING adhesive Allergy Mild skin tears Verified 12/19/23 13:59 vancomycin Allergy Unknown [facility] Verified 12/19/23 13:59 MED LIST diphenhydramine AdvReac Intermediate RESTLESS Verified 12/19/23 13:59 LEGS gabapentin AdvReac Intermediate MUSCLE Verified 12/19/23 13:59 STIFFNESS lisinopril AdvReac Intermediate cough Verified 12/19/23 13:59 NSAIDS (Non-Steroidal AdvReac Unknown not Verified 12/19/23 13:59 Anti-Inflamma supposed to use-S/P GASTRIC BYPASS venlafaxine AdvReac Unknown AFFECTS Verified 12/19/23 13:59 LEGS Home Meds Home Medications Medication Instructions Recorded Confirmed atorvastatin 20 mg tablet 20 mg PO .@79901/09/22 12/31/23 buprenorphine 15 mcg/hour weekly 1 patch topical WK 01/09/22 12/31/23 transdermal patch carbidopa 25 mg-levodopa 100 mg 1 tab PO .0800,1200,1600,199901/09/22 12/31/23 tablet fluticasone propionate 50 2 spray intranasal .@799,199901/09/22 12/31/23 mcg/actuation nasal spray,suspension (Flonase Allergy Relief) hydroxyzine HCl 25 mg tablet 25 mg PO QID PRN ANXIETY/ITCHING 01/09/22 12/31/23 levothyroxine 50 mcg tablet 50 mcg PO .@79901/09/22 12/31/23 montelukast 10 mg tablet 10 mg PO .@199901/09/22 12/31/23 Saccharomyces boulardii 250 mg 250 mg PO .@799,199910/03/22 12/31/23 capsule (Florastor) acetaminophen 500 mg tablet 1,000 mg PO Q8H PRN TEMP >100F/PAIN 12/10/22 12/31/23 (Tylenol Extra Strength) loperamide 2 mg tablet 2 mg PO Q6H PRN Diarrhea 12/10/22 12/31/23 mirtazapine 30 mg tablet 30 mg PO .@199912/10/22 12/31/23 ergocalciferol (vitamin D2) 25,000 50,000 unit PO .WED@0803/07/23 12/31/23 unit capsule omeprazole 20 mg tablet,delayed 40 mg PO .@79907/29/23 12/31/23 release ropinirole 5 mg tablet 2.5 mg PO .@0800,1500,199907/29/23 12/31/23 torsemide 20 mg tablet 40 mg PO .@79907/29/23 12/31/23 ondansetron HCl 4 mg tablet 4 mg PO Q8H PRN Nausea And Vomiting 12/19/23 12/31/23 docusate sodium 100 mg capsule 100 mg PO BID 12/31/23 12/31/23 enoxaparin 80 mg/0.8 mL 80 mg subcut Q12H 12/31/23 12/31/23 subcutaneous syringe loperamide 2 mg capsule 2 mg PO Q6H PRN Diarrhea 12/31/23 12/31/23 (Anti-Diarrheal (loperamide)) oxycodone 5 mg tablet 5 mg PO Q4H PRN Pain 12/31/23 12/31/23 vit C 250 mg-vit E 90 mg-zinc 40 1 tab PO BID 12/31/23 12/31/23 mg-copper 1 [id number] capsule (PreserVision AREDS-2) warfarin 5 mg tablet 5 mg PO PM 12/31/23 12/31/23 Previous Rx's Medication Instructions Recorded potassium chloride 20 mEq oral 20 meq PO DAILY #30 ea 07/31/23 packet ferrous sulfate 325 mg (65 mg 325 mg PO QAM #0 tabs 11/09/23 iron) tablet,delayed release hydrocortisone 2.5 % topical cream 1 applic EXT Q4H PRN #0 grams 11/09/23 with perineal applicator (Proctosol HC) metoprolol tartrate 25 mg tablet 25 mg PO TID #0 tabs 11/09/23 midodrine 2.5 mg tablet 5 mg (2 x 2.5 mg) PO 11/09/23 TID@0800,1300,1800 #0 tabs Results & Data (ED) Vital Signs Vital Signs - 24 hr 12/31/23 05:10 12/31/23 05:10 12/31/23 05:16 Temperature 36.9 C Temperature Source Oral Pulse Rate 72 75 Pulse Rate [Apical] 72 Respiratory Rate 20 Respiratory Effort / Characteristics Non-Labored Respiratory Depth Normal Respiratory Pattern Regular Blood Pressure 125/81 Blood Pressure [Left Arm] 125/81 Blood Pressure Mean 95 Blood Pressure Mean [Left Arm] 95 Pulse Oximetry 96 Oxygen Delivery Method Room Air Sepsis Recent Fever Within 48 Hours No Sepsis New/Unexplained Change in Mental Status No Sepsis Action Taken by Nursing No Action Required 12/31/23 07:00 12/31/23 08:06 Temperature Temperature Source Pulse Rate 77 Pulse Rate [Apical] Respiratory Rate 22 Respiratory Effort / Characteristics Respiratory Depth Respiratory Pattern Blood Pressure 98/73 L 96/43 L Blood Pressure [Left Arm] Blood Pressure Mean 79 73 Blood Pressure Mean [Left Arm] Pulse Oximetry 95 Oxygen Delivery Method Room Air Sepsis Recent Fever Within 48 Hours Sepsis New/Unexplained Change in Mental Status Sepsis Action Taken by Nursing Laboratory Data 12/31/23 06:36 12/31/23 06:36 Lab Results 12/31/23 Range/Units 06:36 WBC 17.12 H (4.8-10.8) K/ul RBC 3.63 L (4.20-5.40) M/uL Hgb 10.7 L (12.0-16.0) g/dl Hct 33.9 L (37.0-47.0) % MCV 93.4 (80.0-100.0) fL MCH 29.5 (25.0-34.0) pg MCHC 31.6 L (32.0-36.0) g/dL RDW Std Deviation 54.8 H (36.4-46.3) fL RDW Coeff of Neftaly 15.9 H (11.5-14.5) % Plt Count 155 (130-400) K/uL MPV 10.1 (9.4-12.4) fL Immature Gran % (Auto) 0.7 % Neut % (Auto) 95.6 % Lymph % (Auto) 2.0 % Kern % (Auto) 1.6 % Eos % (Auto) 0.0 % Baso % (Auto) 0.1 % Neut # (Auto) 16.37 H (1.40-6.50) K/uL Lymph # (Auto) 0.34 L (1.20-3.40) K/uL Kern # (Auto) 0.28 (0.11-0.59) K/uL Eos # (Auto) 0.00 (0.00-0.50) K/uL Baso # (Auto) 0.01 (0.00-0.20) K/uL Immature Gran # (Auto) 0.12 (0.01-0.20) K/uL PT 10.6 (9.0-12.0) Seconds INR 1.0 (0.9-1.1) Sodium 133 L (136-145) mmol/L Potassium 4.6 (3.5-5.1) mmol/L Chloride 100 (98-107) mmol/L Carbon Dioxide 27 (21-32) mmol/L Anion Gap 6 (3-11) BUN 31 H (6-23) mg/dl Creatinine 0.92 (0.6-1.2) mg/dl Est Cr Clr Drug Dosing 50.8 ml/min Est GFR ( Amer) 71.6 ml/min Est GFR (Non-Af Amer) 61.8 ml/min BUN/Creatinine Ratio 33.7 H (10-20) Glucose 91 (70-99(Fasting)) mg/dl Lactate 0.9 (0.4-2.0) mmol/L Calcium 8.9 (8.6-10.3) mg/dl Troponin I High Sens 10.8 (0-14) pg/ml Procalcitonin 5.59 H (0-0.5) ng/ml Administered Medications Acetaminophen (Acetaminophen 500 Mg Tab) 1,000 mg PO Q8H PRN PRN Reason: TEMP >100F/PAIN Stop: 01/30/24 10:34 Last Admin: 12/31/23 20:53 Dose: 1,000 mg Documented By: SHADIA Carbidopa/Levodopa (Carbidopa/Levodopa 25/100mg Tab) 1 tab PO QID ASHUTOSH Stop: 01/30/24 12:59 Last Admin: 12/31/23 20:55 Dose: 1 tab Documented By: Admin: 12/31/23 17:54 Dose: 1 tab Documented By: Admin: 12/31/23 13:08 Dose: 1 tab Documented By: BEN Diclofenac Sodium (Diclofenac Sod 1% Gel 100 Gm Tube) 2 gm EXT QID [facility]; Protocol Stop: 01/30/24 08:59 Last Admin: 12/31/23 20:56 Dose: 2 gm Documented By: Admin: 12/31/23 17:54 Dose: 2 gm Documented By: Admin: 12/31/23 12:24 Dose: 2 gm Documented By: Admin: 12/31/23 11:01 Dose: 2 gm Documented By: MILADYS Enoxaparin Sodium (Enoxaparin 80 Mg/0.8 Ml Syr) 80 mg SQ Q12H [facility] Stop: 01/30/24 10:59 Last Admin: 12/31/23 12:24 Dose: 80 mg Documented By: BEN Ferrous Sulfate (Ferrous Sulfate 325 Mg Tab) 325 mg PO QAM [facility] Stop: 01/30/24 10:34 Last Admin: 12/31/23 13:06 Dose: 325 mg Documented By: BEN Fluticasone Propionate (Fluticasone Propionate Na Spr 16 Gm Btl) 2 sprays NA BID [facility] Stop: 01/30/24 10:34 Last Admin: 12/31/23 20:57 Dose: Not Given Documented By: Admin: 12/31/23 12:27 Dose: Not Given Documented By: BEN Daptomycin 225 mg/ Syringe 4.5 mls @ 2.25 mls/min IV Q24H [facility]; Protocol Stop: 01/02/24 06:29 Last Admin: 12/31/23 07:20 Dose: 2.25 mls/min Documented By: MILADYS Levothyroxine Sodium (Levothyroxine Sodium 50 Mcg Tablet) 50 mcg PO DAILYBB [facility] Stop: 01/30/24 10:34 Last Admin: 12/31/23 13:08 Dose: 50 mcg Documented By: BEN Metoprolol Tartrate (Metoprolol Tartrate 25 Mg Tab) 25 mg PO TID [facility] Stop: 01/30/24 10:34 Last Admin: 12/31/23 20:57 Dose: Not Given Documented By: Admin: 12/31/23 14:52 Dose: Not Given Documented By: Admin: 12/31/23 13:07 Dose: 25 mg Documented By: BEN Midodrine (Midodrine Hcl 2.5 Mg Tab) 5 mg PO TID@0800,1300,1800 [facility] Stop: 01/30/24 12:59 Last Admin: 12/31/23 17:54 Dose: 5 mg Documented By: Admin: 12/31/23 13:07 Dose: 5 mg Documented By: BEN Mirtazapine (Mirtazapine Tab 15 Mg Tab) 30 mg PO HS [facility] Stop: 01/30/24 20:59 Last Admin: 12/31/23 20:57 Dose: 30 mg Documented By: SHADIA Montelukast Sodium (Montelukast Sodium 10 Mg Tablet) 10 mg PO HS ASHUTOSH Stop: 01/30/24 20:59 Last Admin: 12/31/23 20:58 Dose: 10 mg Documented By: SHADIA Pantoprazole Sodium (Pantoprazole 40 Mg Tab) 40 mg PO DAILY [facility]; Protocol Stop: 01/30/24 10:59 Last Admin: 12/31/23 13:07 Dose: 40 mg Documented By: BEN Potassium Chloride (Potassium Chloride Pwd 20 Meq Pack) 20 meq PO DAILY [facility] Stop: 01/30/24 10:34 Last Admin: 12/31/23 12:27 Dose: 20 meq Documented By: BEN Ropinirole HCl (Ropinirole Hcl 2 Mg Tablet) 2 mg PO TID [facility] Stop: 01/30/24 10:59 Last Admin: 12/31/23 20:58 Dose: 2 mg Documented By: Admin: 12/31/23 14:56 Dose: 2 mg Documented By: Admin: 12/31/23 13:07 Dose: 2 mg Documented By: BEN Ropinirole HCl (Ropinirole Hcl 1 Mg Tablet) 0.5 mg PO TID [facility] Stop: 01/30/24 10:59 Last Admin: 12/31/23 20:59 Dose: 0.5 mg Documented By: Admin: 12/31/23 14:56 Dose: 0.5 mg Documented By: Admin: 12/31/23 13:05 Dose: 0.5 mg Documented By: BEN Saccharomyces Boulardii (Saccharomyces Boulardii 250 Mg Cap) 250 mg PO BID [facility] Stop: 01/30/24 20:59 Last Admin: 12/31/23 20:59 Dose: 250 mg Documented By: SHADIA Warfarin Sodium (Warfarin Sod 4 Mg Tab) 4 mg PO TuThSa@1600 [facility] Stop: 01/30/24 15:59 Last Admin: 12/31/23 17:54 Dose: 4 mg Documented By: BEN Discontinued Medications Ceftriaxone Sodium (Rocephin) 2,000 mg in 50 mls @ 100 mls/hr IV NOW STA Stop: 12/31/23 06:52 Last Infusion: 12/31/23 07:51 Dose: Infused Documented By: Admin: 12/31/23 07:21 Dose: 100 mls/hr Documented By: [place] Sodium Chloride (Nss) 250 mls @ 999 mls/hr IV .Q16M ONE Stop: 12/31/23 08:08 Last Infusion: 12/31/23 09:06 Dose: Infused Documented By: Admin: 12/31/23 08:50 Dose: 999 mls/hr Documented By: NH Morphine Sulfate (Morphine Sulfate 4 Mg/Ml 1 Ml Carp\Vial) 4 mg IV NOW STA Stop: 12/31/23 05:39 Last Admin: 12/31/23 05:45 Dose: 4 mg Documented By: HB Imaging Data Radiologist's Impression: Shoulder X-Ray 12/31/23 05:28 XR shoulder RT min 2V routine CLINICAL HISTORY: With Y view - trauma COMPARISON: Right shoulder radiographs July 29, 2023. CT of the right shoulder May 01, 2022. FINDINGS: Exam is compromised given difficulty positioning. No definite evidence for dislocation on scapular Y view. Severe degenerative changes within the glenohumeral joint are again noted. IMPRESSION: 1. No acute fractures. No definite evidence for dislocation. 2. Severe degenerative changes within the glenohumeral joint. ACT 112: Negative or not required by law. Electronically signed by: Norris Blackburn M.D. 12/31/2023 7:06 AM Shoulder X-Ray 12/31/23 05:28 LEFT SHOULDER 3 VIEWS CLINICAL HISTORY: Left shoulder injury. FINDINGS: 3 views of the left shoulder are compared to study dated 06/26/2020. The skeletal structures are osteopenic. There is no radiographic evidence of fracture or dislocation. Moderate osteoarthritic change is seen at the glenohumeral articulation. There is productive degenerative change at the acromioclavicular joint. Superior subluxation of the humeral head suggests chronic rotator cuff injury. The overlying soft tissues are normal as imaged. The visualized left lung parenchyma appears clear. IMPRESSION: Osteopenia and arthritic change as above with no acute bony abnormality identified. Electronically signed by: Julian Sibley M.D. 12/31/2023 7:32 AM Discharge Plan Visit Data Chief Complaint: Fall Stated Complaint: fall with bilateral dislocated shoulders ED Provider: Eugenio Campbell ED Midlevel Provider: Sandra Zelaya Discharge Problem: Cellulitis of leg, right, Acute pain of both shoulders Patient Disposition: Admitted As Inpatient Condition: Good Discharge Instructions Interventions: ED Discharge Assessment Last Done: 12/31/23 18:28
--- OUTSIDE RECORDS SUMMARY | 2023-12-31 05:18 | External Medical Summary | Summary of Care ---
Author Name Unknown Organization [facility] Address [address] [place] [address] Phone [phone] Care Team Providers Care [employer] Technology Teacher Name Role Phone Lavern Gomez Primary Care Provider [phone] Reason for Visit * Reason Comments Dosage Adjustment Via Phone (anticoag Cl inic) Encounter Details Date Type Department Care Team (Latest Contact Info) Description 12/30/2023 5:40 PM EDT Anticoagulation [facility], Bernardo Calloway [address] [place] [address] [place] [phone] [place] [phone] [address] [facility] [place] [phone] Superficial vein thrombosis* Allergies Active Allergy Reactions [...] as of this encounter (statuses as of 12/30/2023) Medications Medication Sig Dispensed Refills Start Date End Date Status Potassium Chloride Lillian ER 20 MEQ Oral Tablet Extended ReleaseIndications: Hypokalemia,Loop diuretic causing adverse effect in therapeutic use, initial encounter TAKE TWO TABLETS BY MOUTH IN THE MORNING AND ONE TABLET IN THE EVENING 300 Tablet 3 3 Active Atorvastatin Calcium 20 MG Oral Tablet (Lipitor) Take 1 Tablet by mouth in the morning. 100 Tablet 3 3 Active Levothyroxine Sodium 50 MCG Oral Tablet (Levoxyl)Indication s:Hypothyroidism due to acquired atrophy of thyroid Take 1 Tablet by mouth daily first thing in the morning. (at least 30 min prior to breakfast or other meds) 100 Tablet 3 3 Active Montelukast Sodium 10 MG Oral Tablet (Singulair)Indicati ons:Chest tightness Take 1 Tablet by mouth at bedtime. 100 Tablet 3 3 Active Omeprazole 20 MG Oral Capsule Delayed Release (PriLOSEC)Indicatio ns:Gastroesophageal reflux disease without esophagitis Take 2 Capsules by mouth in the morning. 200 Capsule 3 3 Active hydrOXYzine HCl 25 MG Oral TabletIndications:P TSD (post-traumatic stress disorder),Major depressive disorder, recurrent severe without psychotic features (HCC) Take 1 Tablet by mouth 4 times a day as needed for itching or anxiety. 360 Tablet 2 3 Active MEDICAL INSTRUCTIONS Lasix addendum 11/29/2022 CHANGE Lasix adjustment order: Please have the patient complete a diuretic titration plan of 80 mg orally in the a.m. only. for 2 days. ( if she received 80 mg yesterday, that is elina 1, otherwise today is day 1) On day 3 she is to return back to 60 mg daily. 1 Each 1 3 Active Fluticasone Propionate 50 MCG/ACT Nasal Suspension (Flonase)Indication s:Acute recurrent sinusitis, unspecified location Administer 2 Sprays into each nostril in the morning. 48 g 3 3 Active Acetaminophen 500 MG Oral Tablet (Tylenol) take 2 tablets by mouth 2 hours prior to Iron Infusions and 2 tablets every 8 hours as needed for mild pain or temp 100 or greater. 100 Tablet 1 4 Active Albuterol Sulfate HFA 108 (90 Base) MCG/ACT Inhalation Aerosol SolutionIndications :Cough INHALE TWO PUFFS BY MOUTH EVERY 6 HOURS NEEDED FOR COUGH, SHORTNESS OF BREATH OR WHEEZING 6.7 g 5 4 Active Carbidopa-Levodopa 25-100 MG Oral Tablet (Sinemet)Indication s:Parkinson's disease (HCC) take One tablet by mouth four times a day 120 Tablet 5 4 Active rOPINIRole HCl 5 MG Oral Tablet take one-half tablet by mouth three times daily 135 Tablet 1 4 Active Torsemide 20 MG Oral Tablet (Demadex) Take 2 Tablets by mouth in the morning. 180 Tablet 2 4 Active oxyCODONE HCl 5 MG Oral Tablet (Oxy IR) every 4 hours as needed. 4 Active Warfarin Sodium 4 MG Oral Tablet (Coumadin) daily. As directed 4 Active Saccharomyces boulardii 250 MG Oral Capsule (Florastor) Take 1 Capsule by mouth in the morning and 1 Capsule before bedtime. Active Metoprolol Tartrate 25 MG Oral Tablet (Lopressor) Take 1 Tablet by mouth daily. 90 Tablet 4 Active Additional Information Patient taking differently:25 mg [id number], Reported on 12/06/2023 PreserVision AREDS 2+Multi Vit Oral Capsule Take 1 Capsule by mouth in the morning and 1 Capsule before bedtime. Active Loperamide HCl 2 MG Oral Capsule (Anti-Diarrheal) Take 1 Capsule by mouth 4 times a day as needed for Diarrhea. Active Mirtazapine 30 MG Oral Tablet (Remeron)Indication s:Major depressive disorder, recurrent severe without psychotic features (HCC) Take 1 Tablet by mouth at bedtime. 90 Tablet 4 Active Enoxaparin Sodium 80 MG/0.8ML Injection Solution Prefilled Syringe (Lovenox) Inject 80mg under the skin every 12 hours as directed by Anticoagulation Clinic. Thanks 8 mL 4 Active Docusate Sodium 100 MG Oral Capsule (Colace) Take 1 Capsule by mouth in the morning and 1 Capsule before bedtime. 180 Capsule 3 4 Active Ferrous Sulfate 325 (65 Fe) MG Oral Tablet Delayed Release Take 1 Tablet by mouth in the morning. 90 Tablet 3 4 Active Midodrine HCl 5 MG Oral Tablet (Proamatine) Take 1 Tablet by mouth in the morning and 1 Tablet at noon and 1 Tablet in the evening. 270 Tablet 3 4 Active Ondansetron 4 MG Oral Tablet Disintegrating (Zofran)Indications :Nausea Place 1 Tablet on tongue every 8 hours as needed for Nausea. dissolve on tongue. 20 Tablet 3 4 Active guaiFENesin ER 600 MG Oral Tablet Extended Release 12 Hour (Mucinex) Take 1 Tablet by mouth 2 times a day as needed for Congestion. Take with plenty of water. Do not cut, crush or chew 40 Tablet 2 4 Active Buprenorphine 15 MCG/HR Transdermal Patch WeeklyIndications:F ibromyalgia Apply 1 Patch topically to affected area once a week. 4 Patch 4 4 Active documented as of this encounter (statuses as of 12/30/2023) Active Problems Problem Noted Date Diagnosed Date Type 2 diabetes mellitus with diabetic polyneuro sybil 12/18/2023 Exudative age-related macula r degeneration, bilateral, with active choroidal neovascularization 11/20/2023 Shoulder arthritis 09/18/2023 Nontraumatic complete tear of [...] with perforation 023 Overview: Admission to [facility] 10/28. Last Assessment & Plan: Stable. 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 Last Assessment & Plan: Followed by internal affairs investigator Major depressive disorder, recurrent, mild 04/30 Last [...] this will have to come through PCP, [facility] does not participate in chronic [...] as of this encounter (statuses as of 12/30/2023) Resolved Problems Problem Noted Date Diagnosed Date [...] 03/22/2022 Overview: Per [facility] Protocol Intermittent asthma with rel iever use up to twice per week with acute exacerbation 06/09/2020 0 12/18/2023 Overview: history Parkinson's disease 12/22/2019 09/27/19 21 Iron deficiency [...] as of this encounter (statuses as of 12/30/2023) Immunizations Name Administration Dates Next Due COVID-19 mRNA, LNP-s, No Pre serve, 2-Dose Series (Leversense) 07/07/2021,10/04/2020,09/07/2020 Hepatitis B, 20+ yrs 11/05/2004,07/08/1995 PPD 01/25/2008 Pneumococcal Conjugate Vacc, 13 Valent (Prevnar) 06/10/2015 Pneumococcal Conjugate Vacci ne, 20-valent (Dhyneyr80) 06/06/2023 Pneumococcal Polysaccharide PPV23 (Pneumovax) 06/07/2019,12/26/2007 Seasonal [...] money to get more. Never true 07/02/2023 Childcare Answer Date Recorded Do you feel overwhelmed with taking care of a child, family member or friend? No 07/02/2023 Does your family need help f inding childcare? (Household - for ages 0-17 years) Not on file 07/02/2023 Clothing Answer Date Recorded Have you been unable to get clothing when it was really needed? No 07/02/2023 Is your family able to get c lothes or diapers when needed? (Household - for ages 0-17 years) Not on file 07/02/2023 Personal Safety Answer Date Recorded Do you feel unsafe or have concerns for your saf ety? No 07/02/2023 Do you have concerns for you r family's safety? (Household - for ages 0-17 years) Not on file 07/02/2023 Utilities Answer Date Recorded Do you have trouble paying y our heating, water, or electric bill? No 07/02/2023 Is your family able to pay t he heat, water, or electric bill? (Household - for ages 0-17 years) Not on file 07/02/2023 Does your family have access to good internet? (Household - for ages 0-17 years) Not on file 07/02/2023 Employment Status Answer Date Recorded Are you unemployed or without regular income? No 07/02/2023 Does the household have a re gular source of income? (Household - for ages 0-17 years) Not on file 07/02/2023 Social Connections Answer Date Recorded How often do you feel lonely or isolated from th ose around you? Often 07/02/2023 Financial Resource Strain Answer Date R ecorded Do you have any trouble payi ng for your medications, or do you think you might in the future? No 07/02/2023 Does your family have troubl e paying for medicine? (Household - for ages 0-17 years) Not on file 07/02/2023 Transportation Needs Answer Date Record ed READ ONLY Do you have troubl e getting a ride to medical visits or work? Sometimes True 07/02/2023 Does your family have a hard time getting a ride to doctors visits? (Household - for ages 0-17 years) Not on file 07/02/2023 Has lack of transportation k ept you from medical appointments, meetings, work, or from getting things needed for daily living? Check all that apply. (Adult - for ages 18 years and over) Not on file 07/02/2023 Do you (or your family) have trouble finding or paying for a ride (transportation)? (Household - for ages 0-17 years) Not on file 07/02/2023 Housing Stability Answer Date Recorded Do you currently live in a s helter or have no steady place to sleep at night? No 07/02/2023 READ ONLY Do you think you a re at risk of becoming homeless? No 07/02/2023 Does your family worry about paying for your home or becoming homeless? (Household - for ages 0-17 years) Not on file 1 09/02/2022 Are you homeless or worried that you might be in the future? (Adult - for ages 18 years and over) Not on file Are you (or your family) shonna eless or worried that you might be in the future? (Household - for ages 0-17 years) Not on file Food Insecurity Answer Date Recorded Do you need food for this week? No 07/02/2023 Are you able to get enough f ood for your family? (Household - for ages 0-17 years) Not on file 07/02/2023 Does your family need food t his week? (Household - for ages 0-17 years) Not on file 07/02/2023 Do you always have enough fo od for your family? (Household - for ages 0-17 years) Not on file 07/02/2023 Sex and Gender Information Value Date Recorded Sex Assigned at Female 11/11/2018 2:57 PM EDT Gender Identity Female 11/11/2018 2:57 PM EDT Sexual Orientation Straight 02/23/2021 10 :18 AM EDT Job Start Date Occupation Industry Not on file Not on file Not on file documented as of this encounter Progress Notes * Ingrid Matias RPh - 12/30/2023 2:42 PM EDT Medication Therapy Disease Management - Anticoagulation Patient: Bonnie Oneal | : 1950 [facility] Patient Anticoagulation Encounter Patient is a resident at: [facility] -- Fax sent to number listed above detailing plan of care below. Please notify clinic with any unusual brusing or bleeding, N/V/D, medication or diet changes or anymissed or extra doses of Coumadin. Subjective Patient Findings Comments: INR on 12/22 was low at 1.1 due to holding for procedure- [facility] previously gave restart instructions to SNF Objective Current Warfarin Dose As of 12/30/2023 Warfarin maintenance plan: 5 mg (2.5 mg x 2) every day INR Result As of 12/30/2023 INR goal: 2.0-3.0 INR used for dosing: No new INR was available at the time of this encounter. Assessment & Plan Warfarin Plan As of 12/30/2023 Full warfarin instructions: 5 mg every day No change documented: Ingrid Matias RPh Next INR check: 01/02/2024 Repeat PT/INR in 3 day(s) Weekly dose: not changed Ingrid Matias RPh Clinical Pharmacist 12/30/2023, 2:42 PM * Rohini Saini, dispensing audiologist - 12/30/2023 2:08 PM EDT Spoke with Jennifer at [facility] lab. No specimen dropped off for patient today, most recent INR they have is 12/22. Does not look like 12/22 was addressed by us? Spoke with Alla Agee. They thought INR was drawn, appears that patient was missed today when they double checked lab slips. INR can be drawn on , 01/01. They will need a new lab order faxed to them please. Thank you, Rohini Saini Core Maker Helper [facility] ([facility]) 12/30/2023,2:09 PM documented in this encounter Plan of Treatment Upcoming Encounters Date Type Department Care Team (Late st Contact Info) Description 12/31/2023 11:00 AM EDT Office Visit Cardiology, [facility] [address] [place] [id number] Patricia Knott CRNP [address] [place] [phone] 01/14/2024 1:00 PM EDT Home Visit Care Coordination and Integration [address] [place] [address] Cintia Bowser, Community Health Absorption And Adsorption Engineer [address] [place] [address] 01/21/2024 11:00 AM EDT Scheduled Telephone Interventional Pain Center, [facility] [address] [place] [phone] Miguel Ángel Nurse Phone Call Interventional Pain [facility] [address] [place] [phone] 01/22/2024 11:40 AM EDT Office Visit [address] [place] [phone] Debbie Otero PA-C [address] [facility], [place] [address] 01/23/2024 10:00 AM EDT [facility] [address] [place] [phone] Sonja Robledo RN [address] [facility] [phone] 03/10/2024 11:00 AM EDT [facility] [place] [address] [facility] [phone] Debbie Otero PA-C [address] [facility], [place] [phone] 03/31/2024 11:00 AM EDT Laboratory Laboratory, [place] [address] [facility], [place] [phone] [facility] [address] [facility], [place] [phone] 04/07/2024 2:00 PM EDT Office Visit Hematology/On[facility] [address] [facility] [phone] Hanane Enamorado CRNP [address] [place] [address] [place] [address] 04/10/2024 11:20 AM EDT [facility] [place] [address] [facility], [place] [phone] Debbie Otero PA-C [address] [facility], [place] [address] 05/05/2024 10:00 AM EDT Nurse Only Ancillary Department, [place] [address] [facility] [place] [phone] [place], Nurse Annual Wellness [address] [place] [address] Health Maintenance Due Date Last Done Comments Cologuard 1995 Fecal Occult Blood Test 1995 Sigmoidoscopy 1995 Hepatitis B (3 of 3 - 19+ 3-dose series) 12/31/2004 11/05/2004, 07/08/1995 Mammogram 10/17/2022 10/17/2021, 09/06, 02/27/2019, Additional history exists DXA Scan 12/13/2022 12/13/2020, 11/05, 08/20/2016, Additional history exists Colonoscopy 01/04/2023 01/05/2020, 12/07, 01/03/2017, Additional history exists Colorectal Cancer Screening 01/04/2023 COVID-19 Vaccine ( season) 2023 07/07/2021, 10/04/2020, 09/07/2020 HbA1c 10/25/2023 04/25/2023, 02/07, 06/29/2019, Additional history exists Albumin/Creatinine Ratio 03/06/2024 023, 10/17/2021, 06/19/2017 Diabetic Foot Exam 04/29/2024 04/29/2023 Depression Monitoring 09/08/2024 09/09/2023 Diabetic Eye Exam 10/07/2024 10/08/2023, , 09/02/2023, Additional history exists GFR 11/09/2024 11/10/2023, 02/2024, 08/08/2023, Additional history exists TSH 11/12/2024 11/13/2023, 04/07, 03/06/2023, Additional history exists Lipid Panel 09/05/2025 09/05/2020, 06/08, 05/05/2018, Additional history exists DTaP,Tdap,and Td Vaccines (3 - Td or Tdap) 06/27/2030 06/27/2020, 06/01/2013, 04/02/2008, Additional history exists Zoster Vaccines Completed 01/01/2019, 07/10, 06/05/2012 VITAMIN D LEVEL ONCE IN A LIFETIME-USE SMARTSET# [id number] Completed 11/21/2021, 06/06/2020, 02/16/2020, Additional history exists Influenza Vaccine (FLU shot) Completed , 06/05/2022, 06/19/2021, Additional history exists Pneumococcal Vaccine: 65+ Years Completed 06/06/2023, 06/07/2019, [...] veins documented in this encounter Advance Directives Documents on File Type Date Recorded Patient Business Systems Consultant Expl anation Advance Directives and Living Will 09/26/2023 signed on 08/22/2023 ADVANCE DIRECTIVE / LIVING WILL Power of Tool Dresser 09/26/2023 signed on 08/22/2023 POWER OF FINISHED [employer] [facility] [facility] Healthcare Agents on File Name Relationship Healthcare Agent Relationship Communication Erica Nunes Other - (no specific identity) Health Care Business Systems Consultant (appointed verbally by patient or by statute hierarchy) Care Teams [employer] Technology Teacher Relationship Specialty Start Date End Date Lavern Gomez DO [address] [place] [address] PCP - General Family Medicine 10/27/22 documented as of this encounter
--- OUTSIDE RECORDS SUMMARY | 2023-12-31 05:19 | External Medical Summary | Summary of Care ---
Author Name Unknown Organization [facility] Address [address] [place] [address] Phone [phone] Care Team Providers Care Heating Element Builder Name Role Phone Lavern Gomez Primary Care Provider [phone] Reason for Visit * Auth/Cert Specialty Diagnoses / Procedures Referred By Glenn brady Referred To Contact Diagnoses Lumbar radiculopathy Lumbar radiculopathy [M54.16] Procedures INJECT DX/THER SUBSTANCE INTERLAMINAR LUMBAR/SACRAL W IMAGE GUIDE INJECTION SPINE LUMBAR OR SACRAL Jeffery Rodríguez DO [address] [place] [phone] Or [facility] [address] [place] [phone] Referral ID Status Reason Start Date Expiration Date Visits Re quested Visits Authorized [id number] Encounter Details Date Type Department Care Team (Latest Contact Info) Description 12/23/2023 11:19 AM EDT - 12/23/2023 1:02 PM EDT Hospital Encounter OR [facility], Operating Room [facility] [address] [place] [phone] Jeffery Rodríguez DO [address] [place] [phone] Discharge Disposition: Home - Self Care Allergies Active Allergy Reactions Criticality Noted Date [...] as of this encounter (statuses as of 12/24/2023) Medications Medication Sig Dispensed Refills Start Date End Date Status Potassium Chloride Lillian ER 20 MEQ Oral Tablet Extended ReleaseIndication s:Hypokalemia,Loo p diuretic causing adverse effect in therapeutic use, initial encounter TAKE TWO TABLETS BY MOUTH IN THE MORNING AND ONE TABLET IN THE EVENING 300 Tablet 3 05/13/2023 Active Atorvastatin Calcium 20 MG Oral Tablet (Lipitor) Take 1 Tablet by mouth in the morning. 100 Tablet 3 05/15/2023 Active Levothyroxine Sodium 50 MCG Oral Tablet (Levoxyl)Indicati ons:Hypothyroidis m due to acquired atrophy of thyroid Take 1 Tablet by mouth daily first thing in the morning. (at least 30 min prior to breakfast or other meds) 100 Tablet 3 05/15/2023 Active Montelukast Sodium 10 MG Oral Tablet (Singulair)Indica tions:Chest tightness Take 1 Tablet by mouth at bedtime. 100 Tablet 3 05/15/2023 Active Omeprazole 20 MG Oral Capsule Delayed Release (PriLOSEC)Indicat ions:Gastroesopha geal reflux disease without esophagitis Take 2 Capsules by mouth in the morning. 200 Capsule 3 05/15/2023 Active hydrOXYzine HCl 25 MG Oral TabletIndications :PTSD (post-traumatic stress disorder),Major depressive disorder, recurrent severe [...] Active Fluticasone Propionate 50 MCG/ACT Nasal Suspension (Flonase)Indicati ons:Acute recurrent sinusitis, unspecified location Administer 2 Sprays into each nostril in the morning. 48 g 3 06/01/2023 Active Acetaminophen 500 MG Oral Tablet (Tylenol) take 2 tablets by mouth 2 hours prior to Iron Infusions and 2 tablets every 8 hours as needed for mild pain or temp 100 or greater. 100 Tablet 1 07/23/2023 Active Carbidopa-Levodop a 25-100 MG Oral Tablet (Sinemet)Indicati ons:Parkinson's disease (HCC) take One tablet by mouth four times a day 120 Tablet 5 09/23/2023 Active rOPINIRole HCl 5 MG Oral Tablet take one-half tablet by mouth three times daily 135 Tablet 1 09/23/2023 Active Torsemide 20 MG Oral Tablet (Demadex) Take 2 Tablets by mouth in the morning. 180 Tablet 2 09/21/2023 Active oxyCODONE HCl 5 MG Oral Tablet (Oxy IR) every 4 hours as needed. 11/15/2023 Active Saccharomyces boulardii 250 MG Oral Capsule (Florastor) Take 1 Capsule by mouth in the morning and 1 Capsule before bedtime. Active Metoprolol Tartrate 25 MG Oral Tablet (Lopressor) Take 1 Tablet by mouth daily. 90 Tablet 11/28/2023 Active Additional Information Patient taking differently:25 mg [id number], Reported on 12/06/2023 Buprenorphine 15 MCG/HR Transdermal Patch WeeklyIndications :Fibromyalgia Apply 1 Patch topically to affected area once a week. 4 Patch 11/29/2023 Active PreserVision AREDS 2+Multi Vit Oral Capsule Take 1 Capsule by mouth in the morning and 1 Capsule before bedtime. Active Mirtazapine 30 MG Oral Tablet (Remeron)Indicati ons:Major depressive disorder, recurrent severe without psychotic features (HCC) Take 1 Tablet by mouth at bedtime. 90 Tablet 12/06/2023 Active Enoxaparin Sodium 80 MG/0.8ML Injection Solution Prefilled Syringe (Lovenox) Inject 80mg under the skin every 12 hours as directed by Anticoagulation Clinic. Thanks 8 mL 12/13/2023 Active Docusate Sodium 100 MG Oral Capsule (Colace) Take 1 Capsule by mouth in the morning and 1 Capsule before bedtime. 180 Capsule 3 12/16/2023 Active Ferrous Sulfate 325 (65 Fe) MG Oral Tablet Delayed Release Take 1 Tablet by mouth in the morning. 90 Tablet 3 12/16/2023 Active Midodrine HCl 5 MG Oral Tablet (Proamatine) Take 1 Tablet by mouth in the morning and 1 Tablet at noon and 1 Tablet in the evening. 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 Surveillance. Mild persistent asthma without complication 06/08 Last Assessment & Plan: Stable Continue Robb Lobo p.r.nIvelisse, Advair Restless legs syndrome Last Assessment & Plan: Well controlled on Ropinirole 2.5 TID HTN, goal below 130/80 documented as of this encounter (statuses as of 12/24/2023) Resolved Problems Problem Noted Date Diagnosed Date [...] as of this encounter (statuses as of 12/24/2023) Immunizations Name Administration Dates Next Due COVID-19 mRNA, LNP-s, No Pre serve, 2-Dose Series ([employer]) 07/07/2021,10/04/2020,09/07/2020 Hepatitis B, 20+ yrs 11/05/2004,07/08/1995 PPD 01/25/2008 Pneumococcal Conjugate Vacc, 13 Valent (Prevnar) 06/10/2015 Pneumococcal Conjugate Vacci ne, 20-valent ([id number]) 06/06/2023 Pneumococcal Polysaccharide PPV23 (Pneumovax) 06/07/2019,12/26/2007 Seasonal [...] Sign Reading Time Taken Comments Blood Pressure 139/71 12/23/2023 1:01 PM EDT Pulse 53 12/23/2023 1:01 PM EDT Temperature 36.4 C (97.5 F) 12/23/2023 11:39 AM E DT Respiratory Rate 18 12/23/2023 1:01 PM EDT Oxygen Saturation 97% 12/23/2023 1:01 PM EDT Inhaled Oxygen Concentration - - Weight - - Height - - Body Mass Index - - documented in this encounter Discharge Instructions * Discharge Instr - AVS* Jeffery Rodríguez, - 12/23/2023 12:52 PM EDT Kj Mascorro [facility] [address] [place] [address] Discharge Date: 12/23/2023 You may call Kj Jane [facility] at [phone] during business hours. For after-hours emergencies call 911. Your attending physician at the time of your discharge was: Jeffery Rodríguez DO [address] [place] [phone] The information below provides you with the instructions and the list of medications you need to betaking following discharge from the hospital. If you have any questions, please ask before leaving.Please carry this letter with you when you see your doctor in the clinic. Diet: Resume your normal diet If you are diabetic, follow your blood sugars closely for next 2-3 days as they are likely to be elevated. If you are having difficulty controlling your blood sugars call your family doctor or the physician that treats your diabetes. Activity: Do not engage in strenuous activity today Resume your normal activities tomorrow Do not soak in water for 24 hours. No swimming, hot tub or bath but showering is allowed. Do not use heat on the injection site for 24 hours. If uncomfortable ice may be helpful. Some injections may make your arms or legs weak for a few hours. Be extremely careful when walking or changing positions that you do not fall. Have someone assist you for the next 6 hours. If weakness or numbness becomes progressive CALL IMMEDIATELY or GO TO THE NEAREST EMERGENCY ROOM Do not restart physical therapy or chiropractic manipulation until 48 hours after your injection Call : If weakness or numbness suddenly becomes worse or become progressive If the injection site becomes red, swollen, warm to the touch, begins to bleed or drain fluid, or is excessively painful. If you have any questions Medications: Resume all the medications you were taking prior to your injection. Resume your anticoagulants tomorrow unless otherwise instructed by your family physician, fur pointer or the anticoagulation clinic. Additional Instructions: None Driving: You may resume driving in 12-24 hours if no weakness is noted . Date you may return to work or school: N/A Follow Up: Please make a follow-up telephone appointment with our nursing staff in 4-6 weeks. documented in this encounter Progress Notes * Jeffery Rodríguez DO - 12/23/2023 12:52 PM EDT [facility] [place] [address] [facility] [phone] OUTPATIENT SURGERY DISCHARGE SUMMARY NOTE Name: Bonnie Oneal Location: OR [facility]/OR Date: 12/23/2023 Time: 12:55 PM Surgery Date: 12/23/2023 Procedure: INJECTION SPINE LUMBAR OR SACRAL No laterality found for procedure #1 Surgeon: Jeffery Rodríguez DO Discharge Diagnosis: lumbar radicular pain After examination of this patient, I have determined she is ready for discharge to home when the patient meets criteria. Discharge instructions were given to the patient. Jeffery Rodríguez DO OR [facility], Operating Room [facility] [address] [facility] [place] [address] documented in this encounter H&P Notes * Jeffery Rodríguez DO - 12/23/2023 11:48 AM EDT Interventional Pain H&P Subjective: History of Present Illness: Bonnie Oneal is a 73 year old year-old female with a past medical history significant for lumbar radicular pain who is presenting for left L4/5 ROMELIA to improve her pain and function. her pain is essentially unchanged since our last office visit with her. ASA 3 AW nml Review of Systems: A focused 12-pt ROS were of reviewed with the patient including difficulty with sleep, snoring, aspiration history, dysphagia, stomach pain, nausea and vomiting, severe headaches, confusion, open skin lesions or wounds, chest pain, shortness of breath, excessive thirst, somnolence, dysuria, incomplete bladder emptying, easy bruising, recent clotting problems or bleeding, depression or rushed thoughts unless noted previously. Review of patient's allergies indicates: Allergen Reactions Ammonia Edema face/lips/tongue Other reaction(s): SWELLING Buspirone Neuro complications (Please comment) Other reaction(s): NEURO COMPLICATIONS Lisinopril Cough Other reaction(s): cough Other - Environmental Edema airway and Edema face/lips/tongue Amonia, pollen Benadryl [Diphenhydramine] Restless legs Cymbalta [Duloxetine Hcl] Itching Duloxetine Dust Dust mites Gabapentin Muscle stiffness on oral Lyrica [Pregabalin] hallucinations Nsaids Other Allergy (See Comments) Samano Vancomycin Venlafaxine Other (Please comment) legs Other reaction(s): AFFECTS LEGS Wound Dressing Adhesive Rash on skin Adhesive Tape Other reaction(s): skin tears Medications, Past Medical History, Past Surgical History reviewed and documented in Epic. See detailed report if needed. Pertinent Labs/Test Results: INR ( ) Date Value 02/20/2020 1.29 (H) Fingerstick INR (INR) Date Value 08/05/2020 5.2 INR-OUTSIDE LAB (no units) Date Value 12/09/2023 2.7 No results found for: "CREATININE" Hemoglobin A1C (%) Date Value 04/25/2023 5.7 (H) 06/29/2019 5.8 (H) Lab Results Component Value Date/Time AMPHETAMINES - [facility] NEGATIVE 06/10/2015 10:34 AM AMPHETAMINES SCREEN - [facility] Negative 09/18/2023 11:33 AM BARBITURATES - [facility] NEGATIVE 06/10/2015 10:34 AM BENZODIAZEPINES - [facility] NEGATIVE 06/10/2015 10:34 AM BENZODIAZEPINES SCREEN - [facility] Negative 09/18/2023 11:33 AM METHADONE METABOLITE NEGATIVE 06/10/2015 10:34 AM METHADONE METABOLITE - [facility] Negative 09/18/2023 11:33 AM OXYCODONE REFER TO CONFIRMATION RESULT (A) 06/10/2015 10:34 AM OXYCODONE NEGATIVE 06/10/2015 10:34 AM OXYCODONE / OXYMORPHONE - [facility] Negative 09/18/2023 11:33 AM OXYCODONE, CONFIRM - [facility] 1,104 (H) 06/06/2023 02:02 PM CANNABINOIDS - [facility] NEGATIVE 06/10/2015 10:34 AM CANNABINOIDS SCREEN - [facility] Negative 09/18/2023 11:33 AM URINE DRUG SCREEN RESULT 06/10/2015 10:34 AM URINE TEMPERATURE 94 06/10/2015 10:34 AM URINE VALID INTERP NORMAL 06/10/2015 10:34 AM Imaging: I personally reviewed the imaging and my findings were . POINT OF CARE US MAJOR JOINT INJECTION, ORTHO Patient Name: BONNIE ONEAL : 1950 (73y) Female Performing Provider: Gus Guillen (digitally signed Oct 15, 2023 15:26 EDT) Attending: Gus Guillen (digitally signed Oct 15, 2023 15:26 EDT) [Impression] : Procedure note (shoulder supra scapular nerve block) on bilateral: Patient moved during both procedures Time out:Prior to injection, a time out was called to confirm the administrationof appropriate medicine, patient name, procedure and confirm to the best of our ability and knowledge the presence of any necessary risks and benefits. Patient verbalizes understanding. Ultrasound utilized to guide injectionUltrasound required due to: patient size (obese) and high risk for complications without ultrasound guideance (risk for neurovascular damage) Sterile techinique applied. Skin sterilized with betadine and cleaned with alcohol swab. Glenohumoral joint injected using 3.5 inch, 22 gauge needle. Injected with 3 ml Ropivacaine 0.5%, 1 ml depomedrol 40mg/ml. Patient tolerated procedure with no significant bleeding or adverse reaction. Patient instructed to call or return to clinic for fever or warmth and redness at injection site for potential infection. Patient also advised as to potential for steroid flare reaction including increased pain and redness at injection site which should be treated with ice and resolve within 24 hours. Gus Guillen, Objective Physical Exam: Vital Signs: BP 150/86 | Pulse 52 | Temp 36.4 C (97.5 F) (Tympanic) | Resp 16 | SpO2 98% There is no height or weight on file to calculate BMI. General: No apparent distress. Eyes: pupils equal and round, sclera white, pupils midsize. ENT: mucous membranes moist Resp: Non-labored breathing CV: Extremities warm and well-perfused. Psych: Oriented; affect warm, insight good. Skin: No rashes or lesions appreciated on exposed skin Neuromuscular Exam: Facet loading neg, SLR pos, TTT over lumbar spine Assessment: Bonnie is a 73 year old year-old female with: Lumbar radicular pain Plan: The patient is undergoing left L4/5 ROMELIA today to alleviate her pain and improve her function. The risks, benefits and alternatives to the procedure were reviewed at length and the patient was provided the opportunity to ask questions which were answered to their voiced understanding. Following thiscomprehensive discussion, the patient opted to proceed. The patient was consented to the procedure following this comprehensive conversation. Jeffery Rodríguez DO OR [facility], Operating Room [facility] [address] [place] [phone] documented in this encounter Nursing Notes * Kendy Siddiqui RN - 12/23/2023 12:57 PM EDT Patient tolerated pain injection well. Ready for discharge to home. * Anastasia Mi RN - 12/23/2023 12:51 PM EDT Band aid applied to area. Patient transferred to PACU 11 via wheelchair * Anastasia Mi RN - 12/23/2023 12:44 PM EDT Patient tolerating pain management injection well. documented in this encounter OR Notes * OR Surgeon - Jeffery Rodríguez DO - 12/23/2023 12:51 PM EDT INTERLAMINAR LUMBAR EPIDURAL STEROID INJECTION DATE: 12/23/2023 PHYSICIAN: Jeffery Rodríguez DO PREOPERATIVE DIAGNOSIS: Lumbar spondylosis with lumbar radiculopathy. POSTOPERATIVE DIAGNOSIS: Lumbar spondylosis with lumbar radiculopathy. PROCEDURE PERFORMED: L4/5 interlaminar epidural steroid injection on the right side. Fluoroscopy for precise needle placement. ANESTHESIA: Local infiltration with 1% lidocaine. MONITORS: Automatic blood pressure cuff, pulse oximetry. There was no case assistant, EBL or drains placed during this procedure. INDICATIONS: I had the pleasure of seeing Bonnie Oneal ([id number]) [facility]. Bonnie Oneal is a 73 year old year-old female has a history of lumbar radiculopathy. she is here today for an interlaminar lumbar epidural steroid injection today. MEDICATIONS: No current facility-administered medications for this encounter. ALLERGIES: Review of patient's allergies indicates: Allergen Reactions Ammonia Edema face/lips/tongue Other reaction(s): SWELLING Buspirone Neuro complications (Please comment) Other reaction(s): NEURO COMPLICATIONS Lisinopril Cough Other reaction(s): cough Other - Environmental Edema airway and Edema face/lips/tongue Amonia, pollen Benadryl [Diphenhydramine] Restless legs Cymbalta [Duloxetine Hcl] Itching Duloxetine Dust Dust mites Gabapentin Muscle stiffness on oral Lyrica [Pregabalin] hallucinations Nsaids Other Allergy (See Comments) Samano Vancomycin Venlafaxine Other (Please comment) legs Other reaction(s): AFFECTS LEGS Wound Dressing Adhesive Rash on skin Adhesive Tape Other reaction(s): skin tears REVIEW OF SYSTEMS: Negative for fever, chills, chest pain, SOB, bleeding abnormalities, nausea, vomiting, diarrhea, worsening edema, or new rashes. FOCUSED PHYSICAL EXAMINATION: The patient is awake, alert and oriented, and is in no acute distress. Vital signs are stable. The patient is afebrile. The rest of the PE is essentially unchanged from the patient's recent visit to our office. I explained the procedure to the patient including the risks, benefits and alternatives to the procedure. The risks discussed with the patient included but were not limited to: bleeding, infection, and damage to surrounding nerves, tissues, and organs, paralysis, increased pain, pain at the site ofinjection, allergic reaction, blood pressure instability, seizures, heart block, headaches, increase in blood sugar, worsening of glaucoma, blindness, manic episodes, mood instability, . Alternatives to the procedure were also explained and include: do nothing, surgery, medications, and physical therapy. The patient verbalized understanding and was willing to proceed. PROCEDURE IN DETAIL: An informed consent was obtained. The patient was taken to the procedure room,was positively identified by the staff and attending physician. The patient was positioned prone onthe procedure bed. Vital signs were monitored as above and remained stable throughout the procedure. The skin was prepped and draped in a standard sterile fashion. A surgical pause time-out was performed and agreed upon by the members of the team. Fluoroscopic view of the lumbar spine was obtained and the area of interest was identified. The skin and subcutaneous tissues were anesthetized using 1% lidocaine and 25-gauge 1-1/2 inch needle. After that, a 20-gauge, 3.5-inch epidural needle was advanced towards the L4/5 interlaminar window in the right paramedian position. AP, contralateral oblique and lateral views were used to assess appropriate needle position. Loss of resistance to air technique was utilized and was obtained at approximately 6 cm from the skin. The needle's position was additionally verified by injecting radiopaque dye, which showed spread of the dye in the epidural space in AP and lateral views. After negative aspiration for CSF and blood, 80 mg of Kenalog diluted in 2 mL of 1% lidocaine was injected into theepidural space. The needle was withdrawn. The patient tolerated the procedure well. COMPLICATIONS: None. DISPOSITION: 1. Return to clinic in 1-2 months for follow-up evaluation, sooner as needed. 2. Resume activity as tolerated. 3. Patient can drive after 12-24 hours if no weakness noted. Jeffery Rodríguez DO OR [facility], Operating Room [facility] [address] [facility] [place] [address] documented in this encounter Plan of Treatment Upcoming Encounters Date Type Department Care Team (Late st Contact Info) Description 12/25/2023 2:30 PM EDT Home Visit [facility] [address] [facility] [place] [address] Eugenio Louie PA-C [address] [place] [address] Cintia Bowser, Community Health Advertising Copy Writer [address] [place] [address] 12/30/2023 5:40 PM EDT Anticoagulation [facility], Bernardo Calloway [address] [place] [address] [place] [address] [facility], [place] [address] [address] [facility] [place] [address] 12/31/2023 11:00 AM EDT Office Visit Cardiology, [facility] [address] [facility] [place] [address] Patricia Knott CRNP [address] [place] [address] 01/14/2024 1:00 PM EDT Home Visit Care Coordination and Integration [address] [place] [address] Cintia Bowser, Community Health Advertising Copy Writer [address] [place] [address] 01/21/2024 11:00 AM EDT Scheduled Telephone Interventional Pain Center, [facility] [address] [facility] [place] [address] Del Rosario, Nurse Phone Call Interventional Pain [facility] [address] [place] [address] 01/22/2024 11:40 AM EDT Office Visit [address] [phone] Debbie Otero PA-C [address] [place] [address] 01/23/2024 10:00 AM EDT Home Visit [facility] [address] [facility] [place] [address] Sonja Robledo, RN [address] [facility] [place] [address] 03/10/2024 11:00 AM EDT Office Visit [address] [phone] Debbie [facility]C [address] [facility] [id number] 03/31/2024 11:00 AM EDT Laboratory Laboratory, [place] [address] [facility], [place] [phone] [place], Laboratory [address] [facility], [place] [phone] 04/07/2024 2:00 PM EDT Office Visit Hematology/Oncology [facility] [place] [address] [facility], [place] [phone] Hanane Enamorado CRNP [address] [facility] [place] [address] 04/10/2024 11:20 AM EDT Office Visit [facility] [place] [address] [facility] [phone] Debbie [facility]o [facility]C [address] [facility] [address] 05/05/2024 10:00 AM EDT Nurse Only Ancillary [facility] [place] [address] [facility] [id number] Dagoberto Nurse [facility] [address] [facility] [phone] Health Maintenance Due Date Last Done Comments [...] D LEVEL ONCE IN A LIFETIME-USE SMARTSET# [id number] Completed 11/21/2021, 06/06/2020, 02/16/2020, Additional history exists [...] Procedure Name Priority Date/Time Associated Diagnosis Comments FLUORO INTERVENTIONAL PAIN PROCEDURE NONBILLABLE Routine 12/23/2023 1:00 PM EDT documented in this encounter Results * FLUORO INTERVENTIONAL PAIN PROCEDURE NONBILLABLE (12/23/2023 1:00 PM EDT) Narrative Scheduling, Silent - 12/23/2023 1:02 PM EDT This procedure will not be read by a Radiologist. Please see operative note. Jeffery Rodríguez DO RAD FLUOROSCOPY documented in this encounter Administered Medications Inactive Administered Medications - up to 3 most recent administrations Medication Order MAR Action Action Date Dose Rate Site Iohexol (Omnipaque 180) inj 1 mL 1 mL, Injection, ONCE, On Sat12/23/23 at 1200, For 1 dose Given 12/23/2023 12:47 PM EDT 3 mL lidocaine 1 % inj 20 mg 20 mg (2 mL), Subcutaneous, ONCE, On Sat12/23/23 at 1200, For 1 dose Given 12/23/2023 12:44 PM EDT 5 mL Other-Specify Triamcinolone Acetonide (Kenalog) 40 MG/ML inj 40 mg 40 mg, Injection, ONCE, On Sat12/23/23 at 1200, For 1 dose Given 12/23/2023 12:49 PM EDT 80 mg documented in this encounter Active and Recently Administered Medications Times are shown in EDT. Scheduled Medication Order 12/21/2023 12/22/2023 12/23/2023 Iohexol (Omnipaque 180) inj 1 mL (COMPLETED) 1 mL, Injection, ONCE, On Sat12/23/23 at 1200, For 1 dose 1247 (Given - Provid er: Anastasia Mi RN) lidocaine 1 % inj 20 mg (COMPLETED) 20 mg (2 mL), Subcutaneous, ONCE, On Sat12/23/23 at 1200, For 1 dose 1244 (Given - Provid er: Anastasia Mi RN) Triamcinolone Acetonide (Kenalog) 40 MG/ML inj 40 mg (COMPLETED) 40 mg, Injection, ONCE, On Sat12/23/23 at 1200, For 1 dose 1249 (Given - Provid er: Anastasia Mi RN) documented in this encounter Advance Directives Documents on File Type Date Recorded Patient Cardiothoracic Physiotherapist Expl anation Advance Directives and Living Will 09/26/2023 signed on 08/22/2023 ADVANCE DIRECTIVE / LIVING WILL Power of Leather Belt Maker 09/26/2023 signed on 08/22/2023 POWER OF WILDLIFE REFUGE MANAGER HEALTH CARE Healthcare Agents on File Name Relationship Healthcare Agent Relationship Communication Erica Nunes Other - (no specific identity) Health Care Cardiothoracic Physiotherapist (appointed verbally by patient or by statute hierarchy) Care Teams Heating Element Builder Relationship Specialty Start Date End Date Lavern Gomez DO [address] [place] [address] PCP - General Family Medicine 10/27/22 documented as of this encounter
--- OUTSIDE RECORDS SUMMARY | 2023-12-31 05:19 | External Medical Summary | Summary of Care ---
Author Name Unknown Organization [facility] Address [address] [place] [address] Phone [phone] Care Team Providers Care Tunnel Mucker Name Role Phone Benoit Gomez DO Primary Care Provider + [phone] Reason for Visit * Reason Comments eRx-Medication Refill Encounter Details Date Type Department Care Team (Late st Contact Info) Description 12/27/2023 Refill [place] [address] [place] [address] Benoit Gomez DO [address] [place] [address] Fibromyalgia Allergies Active Allergy Reactions Criticality Noted Date [...] TABLET IN THE EVENING 300 Tablet 3 05/13/20 Active Atorvastatin Calcium 20 MG Oral Tablet (Lipitor) Take 1 Tablet by mouth in the morning. 100 Tablet 3 05/15/20 Active Levothyroxine Sodium 50 MCG Oral Tablet (Levoxyl)Indicatio ns:Hypothyroidism due to acquired atrophy of thyroid Take 1 Tablet by mouth daily first thing in the morning. (at least 30 min prior to breakfast or other meds) 100 Tablet 3 05/15/20 23 Active Montelukast Sodium 10 MG Oral Tablet (Singulair)Indicat ions:Chest tightness Take 1 Tablet by mouth at bedtime. 100 Tablet 3 05/15/20 23 Active Omeprazole 20 MG Oral Capsule Delayed Release (PriLOSEC)Indicati ons:Gastroesophage al reflux disease without esophagitis Take 2 Capsules by mouth in the morning. 200 Capsule 3 05/15/20 23 Active hydrOXYzine HCl 25 MG Oral TabletIndications: PTSD (post-traumatic stress disorder),Major depressive disorder, recurrent severe without psychotic features (HCC) Take 1 Tablet by mouth 4 times a day as needed for itching or anxiety. 360 Tablet 2 05/15/20 Active MEDICAL INSTRUCTIONS Lasix addendum 11/29/2022 CHANGE Lasix adjustment order: Please have the patient complete a diuretic titration plan of 80 mg orally in the a.m. only. for 2 days. ( if she received 80 mg yesterday, that is elina 1, otherwise today is day 1) On day 3 she is to return back to 60 mg daily. 1 Each 1 05/16/20 Active Fluticasone Propionate 50 MCG/ACT Nasal Suspension (Flonase)Indicatio ns:Acute recurrent sinusitis, unspecified location Administer 2 Sprays into each nostril in the morning. 48 g 3 06/01/20 23 Active Acetaminophen 500 MG Oral Tablet (Tylenol) take 2 tablets by mouth 2 hours prior to Iron Infusions and 2 tablets every 8 hours as needed for mild pain or temp 100 or greater. 100 Tablet 1 07/23/19 24 Active Albuterol Sulfate HFA 108 (90 Base) MCG/ACT Inhalation Aerosol SolutionIndication s:Cough INHALE TWO PUFFS BY MOUTH EVERY 6 HOURS NEEDED FOR COUGH, SHORTNESS OF BREATH OR WHEEZING 6.7 g 5 09/21/19 24 Active Carbidopa-Levodopa 25-100 MG Oral Tablet (Sinemet)Indicatio ns:Parkinson's disease (HCC) take One tablet by mouth four times a day 120 Tablet 5 09/23/19 24 Active rOPINIRole HCl 5 MG Oral Tablet take one-half tablet by mouth three times daily 135 Tablet 1 09/23/19 24 Active Torsemide 20 MG Oral Tablet (Demadex) Take 2 Tablets by mouth in the morning. 180 Tablet 2 09/21/19 24 Active oxyCODONE HCl 5 MG Oral Tablet (Oxy IR) every 4 hours as needed. 11/15/19 24 Active Warfarin Sodium 4 MG Oral Tablet (Coumadin) daily. As directed 10/29/19 24 Active Saccharomyces boulardii 250 MG Oral Capsule (Florastor) Take 1 Capsule by mouth in the morning and 1 Capsule before bedtime. Active Metoprolol Tartrate 25 MG Oral Tablet (Lopressor) Take 1 Tablet by mouth daily. 90 Tablet 11/28/19 24 Active Additional Information Patient taking differently:25 mg [id number], Reported on 12/06/2023 PreserVision AREDS 2+Multi Vit Oral Capsule Take 1 Capsule by mouth in the morning and 1 Capsule before bedtime. Active Loperamide HCl 2 MG Oral Capsule (Anti-Diarrheal) Take 1 Capsule by mouth 4 times a day as needed for Diarrhea. Active Mirtazapine 30 MG Oral Tablet (Remeron)Indicatio ns:Major depressive disorder, recurrent severe without psychotic features (HCC) Take 1 Tablet by mouth at bedtime. 90 Tablet 12/06/19 24 Active Enoxaparin Sodium 80 MG/0.8ML Injection Solution Prefilled Syringe (Lovenox) Inject 80mg under the skin every 12 hours as directed by Anticoagulation Clinic. Thanks 8 mL 12/13/19 24 Active Docusate Sodium 100 MG Oral Capsule (Colace) Take 1 Capsule by mouth in the morning and 1 Capsule before bedtime. 180 Capsule 3 12/16/19 24 Active Ferrous Sulfate 325 (65 Fe) MG Oral Tablet Delayed Release Take 1 Tablet by mouth in the morning. 90 Tablet 3 12/16/19 24 Active Midodrine HCl 5 MG Oral Tablet (Proamatine) Take 1 Tablet by mouth in the morning and 1 Tablet at noon and 1 Tablet in the evening. 270 Tablet 3 12/16/19 24 Active Ondansetron 4 MG Oral Tablet Disintegrating (Zofran)Indication s:Nausea Place 1 Tablet on tongue every 8 hours as needed for Nausea. dissolve on tongue. 20 Tablet 3 12/18/19 24 Active guaiFENesin ER 600 MG Oral Tablet Extended Release 12 Hour (Mucinex) Take 1 Tablet by mouth 2 times a day as needed for Congestion. Take with plenty of water. Do not cut, crush or chew 40 Tablet 2 12/20/19 24 Active Buprenorphine 15 MCG/HR Transdermal Patch WeeklyIndications: Fibromyalgia Apply 1 Patch topically to affected area once a week. 4 Patch 4 12/30/19 Active Buprenorphine 15 MCG/HR Transdermal Patch WeeklyIndications: Fibromyalgia Apply 1 Patch topically to affected area once a week. 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 [...] mRNA, LNP-s, No Pre serve, 2-Dose Series (Voxify) 07/07/2021,10/04/2020,09/07/2020 Hepatitis B, 20+ yrs 11/05/2004,07/08/1995 PPD 01/25/2008 Pneumococcal Conjugate Vacc, 13 Valent (Prevnar) 06/10/2015 Pneumococcal Conjugate Vacci ne, 20-valent ([id number]) 06/06/2023 Pneumococcal Polysaccharide PPV23 (Pneumovax) 06/07/2019,12/26/2007 Seasonal [...] 18 years and over) Not on file 3 Are you (or your family) shonna eless [...] encounter Miscellaneous Notes * Telephone Encounter - Benoit Gomez DO - 12/30/2023 9:17 AM EDTSigned Prescriptions: Disp Refills Buprenorphine 15 MCG/HR Transdermal Patch *4 Patch4 Sig: Apply 1 Patch topically to affected area once a week. Authorizing Provider: BENOIT GOMEZ * Telephone Encounter - Amanda Howard [facility] - 12/27/2023 2:57 PM EDTPending Prescriptions: Disp Refills Buprenorphine 15 MCG/HR Transdermal Patch *4 Patch4 Sig: Apply 1 Patch topically to affected area once a week. * Telephone Encounter - Amanda Howard RPh - 12/27/2023 2:55 PM EDT I have reviewed the patients controlled substance dispensing history in the Prescription Drug Monitoring Program in compliance with the [facility] regulations before prescribing a controlled substance. PDMP checked on 12/27/2023. Pending Prescriptions: Disp Refills Buprenorphine 15 MCG/HR Transdermal Patch*4 Patch4 Sig: Apply 1 Patch topically to affected area once a week. Last Visit: 12/18/2023 (in office), 11/13/2021 (telemedicine) Next Visit: 01/22/2024 Date medication was last filled: 11/29/23 Date medication is due for refill: 12/26/23 Pharmacy: [facility] [address] Is this request for a controlled substance? Yes and Urine Drug Screen was completed Toxicology results: Results for orders placed or performed in visit on 09/18/23 TOXICOLOGY, URINE SCREEN W/ CONFIRMATION Result Value Amphetamines Screen, U Negative Benzodiazepines Screen, U Negative Cannabinoids Screen, U Negative Cocaine Metabolite Screen, U Negative Fentanyl Screen, U Negative Hydrocodone Screen, U Negative Methadone Metabolite Screen, U Negative Morphine/Codeine Screen, U Negative Oxycodone Screen, U Negative Narrative Cutoff Concentrations: Drug Level Amphetamines 500 ng/mL Benzodiazepines 100 ng/mL Cannabinoids 50 ng/mL Cocaine Metabolite 150 ng/mL Fentanyl 1 ng/mL Hydrocodone / Hydromorphone 300 ng/mL Methadone Metabolite 100 ng/mL Morphine / Codeine 300 ng/mL Oxycodone / Oxymorphone 100 ng/mL Screening results are presumptive and can only be used for medical purposes. Positive screening results are reflexed to confirmatory testing. *Note: Due to a large number of results and/or encounters for the requested time period, some results have not been displayed. A complete set of results can be found in Results Review. Please approve if appropriate. Thanks, Elisa GambleD Clinical Pharmacist Centralized Clinical Pharmacy Services ([facility]) [phone] 12/27/2023, 2:55 PM documented in this encounter Plan of Treatment Upcoming Encounters Date Type Department Care Team (Late st Contact Info) Description 12/30/2023 5:40 PM EDT Anticoagulation Centralized Clinical Pharmacy Services, Bernardo Calloway [address] [place] [address] [place] [address] [facility], [facility] [address] [facility] [place] [address] 12/31/2023 11:00 AM EDT Office Visit Cardiology, [facility] [address] [facility] [place] [address] Patricia Knott CRNP [address] [facility] [place] [address] 01/14/2024 1:00 PM EDT Home Visit Care Coordination and Integration [address] [place] [address] Cintia Bowser, Community Health Licensed Funeral Director And Embalmer [address] [place] [address] 01/21/2024 11:00 AM EDT Scheduled Telephone Interventional Pain Center, [facility] [address] [place] [address] Miguel Ángel Nurse Phone Call Interventional Pain [facility] [address] [place] [address] 01/22/2024 11:40 AM EDT Office Visit [facility] [address] [place] [phone] Debbie Otero PAYenyC [address] [place] [address] 01/23/2024 10:00 AM EDT Home Visit [facility] [address] [facility] [place] [address] Sonja Robledo, RN [address] [place] [address] 03/10/2024 11:00 AM EDT Office Visit [facility], [place] [address] [facility], [place] [phone] Debbie Otero PA-C [address] [facility] [place] [address] 03/31/2024 11:00 AM EDT Laboratory Laboratory, [place] [address] [facility] [place] [phone] [facility] [address] [facility], [place] [address] 04/07/2024 2:00 PM EDT Office Visit Hematology/Oncology [facility] [address] [facility] [phone] Hanane Enamorado, [facility] [address] [facility] [place] [address] 04/10/2024 11:20 AM EDT Office Visit [facility], [place] [address] [facility], [place] [phone] Debbie Otero PA-C [address] [facility] [place] [phone] 05/05/2024 10:00 AM EDT Nurse Only Ancillary Department, [place] [address] [facility] [address] [place], Nurse [facility] [address] [facility] [address] Health Maintenance Due Date Last Done Comments [...] D LEVEL ONCE IN A LIFETIME-USE SMARTSET# [id number] Completed 11/21/2021, 06/06/2020, 02/16/2020, Additional history exists [...] as of this encounter Visit Diagnoses Diagnosis Fibromyalgia Mylagia and myositis, unspecified documented in this encounter Advance Directives Documents on File Type Date Recorded Patient Consumer Safety Inspector Expl anation Advance Directives and Living Will 09/26/2023 signed on 08/22/2023 ADVANCE DIRECTIVE / LIVING WILL Power of Kettle Loader 09/26/2023 signed on 08/22/2023 POWER OF [facility] Healthcare Agents on File Name Relationship Healthcare Agent Relationship Communication Erica Nunes Other - (no specific identity) Health Care Consumer Safety Inspector (appointed verbally by patient or by statute hierarchy) Care Teams Tunnel Mucker Relationship Specialty Start Date End Date Benoit Gomez DO [address] [place] [address] PCP - General Family Medicine 10/27/22 documented as of this encounter
--- OUTSIDE RECORDS SUMMARY | 2023-12-31 05:19 | External Medical Summary | Summary of Care ---
Author Name Unknown Organization [facility] Address [address] [place] [address] Phone [phone] Care Team Providers Care Rn Mobile Name Role Phone Lavern Gomez DO Primary Care Provider [phone] Encounter Details Date Type Department Care Team (Late st Contact Info) Description 12/23/2023 Result Scan Unspecified Department Cintia Doe, [facility] [address] [place] [address] <No scans attached> Allergies Active Allergy Reactions [...] as of this encounter (statuses as of 12/23/2023) Medications Medication Sig Dispensed Refills Start Date [...] Active Additional Information Patient taking differently:25 mg [id number], Reported on 12/06/2023 Buprenorphine 15 MCG/HR Transdermal Patch WeeklyIndications:F ibromyalgia Apply 1 Patch topically to affected area once a week. 4 Patch 4 Active PreserVision AREDS 2+Multi Vit Oral Capsule [...] or chew 40 Tablet 2 4 Active documented as of this encounter (statuses as of 12/23/2023) Active Problems Problem Noted Date Diagnosed Date [...] with perforation 023 Overview: Admission to [facility] 10/28. Last Assessment & Plan: Stable. 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 by core winder Major depressive disorder, recurrent, mild 04/30 Last [...] as of this encounter (statuses as of 12/23/2023) Resolved Problems Problem Noted Date Diagnosed Date [...] as of this encounter (statuses as of 12/23/2023) Immunizations Name Administration Dates Next Due COVID-19 mRNA, LNP-s, No Pre serve, 2-Dose Series (Newtricious) 07/07/2021,10/04/2020,09/07/2020 Hepatitis B, 20+ yrs 11/05/2004,07/08/1995 PPD 01/25/2008 Pneumococcal Conjugate Vacc, 13 Valent (Prevnar) 06/10/2015 Pneumococcal Conjugate Vacci ne, 20-valent ([id number]) 06/06/2023 Pneumococcal Polysaccharide PPV23 (Pneumovax) 06/07/2019,12/26/2007 Seasonal [...] Description 12/25/2023 2:30 PM EDT Home Visit [facility] [place] [address] Eugenio Louie PA-C [address] [place] [address] Cintia Bowser, Community Health Absorption Operator [address] [place] [address] 12/30/2023 5:40 PM EDT [facility] Centralized Clinical Pharmacy Services, Bernardo Calloway [address] [place] [address] [place] [address] [facility] [place] [address] [address] [facility] [place] [address] 12/31/2023 11:00 AM EDT Office Visit Cardiology, [facility] [address] [facility] [place] [address] Patricia nKott CRNP [address] [place] [address] 01/14/2024 1:00 PM EDT Home Visit Care Coordination and Integration [address] [place] [address] Cintia Bowser, Community Health Absorption Operator [address] [place] [address] 01/21/2024 11:00 AM EDT Scheduled Telephone Interventional Pain Center, [facility] [address] [facility] [place] [address] [facility], Nurse Phone Call [facility]ventional [facility] [place] [address] 01/22/2024 11:40 AM EDT Office Visit [address] [phone] Debbie Otero PA-C [address] [place] [address] 01/23/2024 10:00 AM EDT Home Visit [facility]inger at [facility] [address] [facility] [place] [address] Sonja Robledo, RN [address] [facility] [place] [address] 03/10/2024 11:00 AM EDT Office Visit [address] [place] [phone] Debbie Otero PA-C [address] [facility] [phone] 03/31/2024 11:00 AM EDT Laboratory [facility], [place] [address] [facility] [phone] [place] [address] [facility] [phone] 04/07/2024 2:00 PM EDT Office Visit Hematology/Oncology [facility] [address] [facility], [place] [phone] Hanane Enamorado CRNP [address] [facility] [place] [address] 04/10/2024 11:20 AM EDT Office Visit [facility], [place] [address] [facility] [phone] Debbie Otero PA-C [address] [facility] [id number] 05/05/2024 10:00 AM EDT Nurse Only Ancillary Department, [place] [address] [facility] [phone] Dagoberto Nurse Annual Wellness [address] [facility] [phone] Scheduled Procedures Name Priority Associated Diagnoses Date/Ti me INJECTION SPINE LUMBAR OR SACRAL Lumbar radiculopathy 12/23/2023 12:36 PM EDT Health Maintenance Due Date Last Done [...] 09/02/2023, Additional history exists GFR 11/09/2024 11/10/2023, 02/0 02/2024, 08/08/2023, Additional history exists TSH 11/12/2024 11/13/2023, 04/07, 03/06/2023, Additional history exists Lipid Panel 09/05/2025 09/05/2020, 06/08, 05/05/2018, Additional history exists DTaP,Tdap,and Td Vaccines (3 - Td or Tdap) 06/27/2030 06/27/2020, 06/01/2013, 04/02/2008, Additional history exists Zoster Vaccines Completed 01/01/2019, 07/10, 06/05/2012 VITAMIN D LEVEL ONCE IN A LIFETIME-USE SMARTSET# [id number] Completed 11/21/2021, 06/06/2020, 02/16/2020, Additional history exists [...] Date/Time Associated Diagnosis Comments OUTSIDE LAB RESULTS 12/23/2023 documented in this encounter Results * OUTSIDE LAB RESULTS (12/23/2023) 12/23/2023 Cintia Doe [facility] LABORATORY documented in this encounter Advance Directives Documents on File Type Date Recorded Patient Steward/Stewardess Expl anation Advance Directives and Living Will 09/26/2023 signed on 08/22/2023 ADVANCE DIRECTIVE / LIVING WILL Power of General Superintendent 09/26/2023 signed on 08/22/2023 POWER OF LEGAL COORDINATOR HEALTH CARE Healthcare Agents on File Name Relationship Healthcare Agent Relationship Communication Erica Nunes Other - (no specific identity) Health Care Steward/Stewardess (appointed verbally by patient or by statute hierarchy) Care Teams Rn Mobile Relationship Specialty Start Date End Date Lavern Gomez DO [address] [place] [address] PCP - General Family Medicine 10/27/22 documented as of this encounter
--- OUTSIDE RECORDS SUMMARY | 2023-12-31 05:19 | External Medical Summary | Summary of Care ---
Author Name Unknown Organization [facility] Address [address] [place] [address] Phone [phone] Care Team Providers Care Mold Breaker Name Role Phone Benoit Gomez DO Primary Care Provider [phone] Reason for Visit * Reason Onset Date Comments Medication Refill 12/27/2023 Encounter Details Date Type Department Care Team (Late st Contact Info) Description 12/20/2023 Refill [place] [address] [place] [address] Benoit Gomez DO [address] [place] [address] Fibromyalgia* Allergies Active Allergy Reactions Criticality Noted Date [...] as of this encounter (statuses as of 12/27/2023) Medications Medication Sig Dispensed Refills Start Date [...] Active Additional Information Patient taking differently:25 mg [id number], Reported on 12/06/2023 Buprenorphine 15 MCG/HR Transdermal [...] on tongue. 20 Tablet 3 4 Active documented as of this encounter (statuses as of 12/27/2023) Active Problems Problem Noted Date Diagnosed Date [...] colon with perforation 023 Overview: Admission to [facility] 10/28. Last Assessment & Plan: Stable. 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 law teacher Major depressive disorder, recurrent, mild 04/30 Last [...] as of this encounter (statuses as of 12/27/2023) Resolved Problems Problem Noted Date Diagnosed Date [...] as of this encounter (statuses as of 12/27/2023) Immunizations Name Administration Dates Next Due COVID-19 mRNA, LNP-s, No Pre serve, 2-Dose Series (Maginatics) 07/07/2021,10/04/2020,09/07/2020 Hepatitis B, 20+ yrs 11/05/2004,07/08/1995 PPD 01/25/2008 Pneumococcal Conjugate Vacc, 13 Valent (Prevnar) 06/10/2015 Pneumococcal Conjugate Vacci ne, 20-valent ([id number]) 06/06/2023 Pneumococcal Polysaccharide PPV23 (Pneumovax) 06/07/2019,12/26/2007 Seasonal [...] Telephone Encounter - Benoit Gomez DO - 12/20/2023 8:43 AM EDTRefused Prescriptions: Disp Refills oxyCODONE HCl 5 MG Oral Tablet (Oxy IR) 30 Tab*0 Sig: Take 1 Tablet by mouth every 4 hours as needed for Pain, Mild. Refused By: BENOIT GOMEZ Reason for Refusal: Other (comment below) * Telephone Encounter - Karolyn Bates LPN - 12/20/2023 8:34 AM EDT Did you pend patient's preferred pharmacy and medication before forwarding?yes Pharmacy: [facility] [address] Pending Prescriptions: Disp Refills oxyCODONE HCl 5 MG Oral Tablet (Oxy IR) 30 Tab*0 Sig: Take 1 Tablet by mouth every 4 hours as needed for Pain, Mild. Last Visit: 12/18/2023 (in office), 11/13/2021 (telemedicine) Next Visit: 01/22/2024 If no future appointments scheduled, and last appointment is greater than a year ago, please schedule patient for a follow-up appointment Last date the medication was ordered: 11/15/2023 Is this request for a controlled substance?Yes, What was the last refill date 11/23/2023 w/ quantity 30 and dosage 5 mg and Urine Drug Screen was completed Urine Drug Screen: Results for orders placed or performed in [...] results can be found in Results Review. Patient Phone Numbers Labs: Lab Results Component Value Date/Time CREAT 0.9 11/10/2023 06:32 AM CREAT 0.78 05/13/2023 12:00 AM CREAT 0.9 06/06/2020 09:09 AM POTASSIUM 4.1 11/10/2023 06:32 AM POTASSIUM 4.2 05/13/2023 12:00 AM POTASSIUM 4.2 06/06/2020 09:09 AM TSH 0.72 11/13/2023 06:39 AM TSH 0.95 11/25/2019 11:59 AM LDLCALC 111 09/05/2020 11:38 AM LDLCALC 93 06/29/2019 09:29 AM LDLDIRECT NOT APPLICABLE 05/05/2018 03:31 PM LDLDIRECT 99 02/08/2017 11:26 AM ALT 13 04/25/2023 10:10 AM ALT 9 (L) 06/06/2020 09:09 AM HGBA1C 5.7 (H) 04/25/2023 10:10 AM HGBA1C 5.8 (H) 06/29/2019 09:29 AM documented in this encounter Plan of Treatment Upcoming Encounters Date Type Department Care Team (Late st Contact Info) Description 12/30/2023 5:40 PM EDT Anticoagulation [facility], Bernardo Calloway [address] [place] [address] [place] [address] [facility] [address] [facility] [place] [address] 12/31/2023 11:00 AM EDT Office Visit Cardiology, [facility] [address] [facility] [place] [address] Patricia Knott CRNP [address] [facility] [place] [address] 01/14/2024 1:00 PM EDT Home Visit Care Coordination and Integration [address] [place] [facility] [place] [address] Cintia Bowser, Community Health Objects Conservator [address] [place] [address] 01/21/2024 11:00 AM EDT Scheduled Telephone Interventional Pain Center, [facility] [address] [facility] [place] [address] Miguel Ángel Nurse Phone Call Interventional Pain [facility] [address] [facility] [place] [address] 01/22/2024 11:40 AM EDT Office Visit Family [facility] [address] [place] [id number] Debbie Otero PAYenyC [address] [place] [address] 01/23/2024 10:00 AM EDT [facility] [address] Sonja Robledo, RN [facility] [address] 03/10/2024 11:00 AM EDT Office Visit [facility], [place] [address] [facility], [place] [address] Debbie Otero PA-C [address] [facility] [place] [address] 03/31/2024 11:00 AM EDT Laboratory Laboratory, [place] [address] [facility] [place] [phone] [facility] [address], [place] [phone] 04/07/2024 2:00 PM EDT Office Visit Hematology/Oncology [facility] [address] [facility], [place] [address] Hanane Enamorado CRNP [address] [place], [place] [address] [address] 04/10/2024 11:20 AM EDT Office Visit [facility] [place] [address] [facility] [address] Debbie Otero PA-C [address] [facility] [place] [id number] 05/05/2024 10:00 AM EDT Nurse Only Ancillary Department, [place] [address] [facility], [place] [phone] Dagoberto Nurse [facility] [address] [facility] [address] Health Maintenance Due Date Last Done Comments José Miguel 1995 Fecal Occult Blood Test 1995 Sigmoidoscopy [...] D LEVEL ONCE IN A LIFETIME-USE SMARTSET# [id number] Completed 11/21/2021, 06/06/2020, 02/16/2020, Additional history exists [...] as of this encounter Visit Diagnoses Diagnosis Fibromyalgia- Primary Mylagia and myositis, unspecified documented in this encounter Advance Directives Documents on File Type Date Recorded Patient [address] Vendor Expl anation Advance Directives and Living Will 09/26/2023 signed on 08/22/2023 ADVANCE DIRECTIVE / LIVING WILL Power of Home Health Clinician 09/26/2023 signed on 08/22/2023 POWER OF BROADCAST CHECKER HEALTH CARE Healthcare Agents on File Name Relationship Healthcare Agent Relationship Communication Erica Nunes Other - (no specific identity) Health Care [address] Vendor (appointed verbally by patient or by statute hierarchy) Care Teams Mold Breaker Relationship Specialty Start Date End Date Benoit Gomez DO [address] [place] [address] PCP - General Family Medicine 10/27/22 documented as of this encounter
[2023-12-31] MEDS: MoRPHine SULFATE 4 MG/ML 1 ML CARP\\VIAL IV STA (05:45)
--- NOTE | 2023-12-31 07:08 | XRay Report ---
XR shoulder RT min 2V routine CLINICAL HISTORY: With Y view - trauma COMPARISON: Right shoulder radiographs July 29, 2023. CT of the right shoulder May 01, 2022. FINDINGS: Exam is compromised given difficulty positioning. No definite evidence for dislocation on scapular Y view. Severe degenerative changes within the glenohumeral joint are again noted. IMPRESSION: 1. No acute fractures. No definite evidence for dislocation. 2. Severe degenerative changes within the glenohumeral joint. ACT 112: Negative or not required by law. Electronically signed by: Norris Blackburn M.D. 12/31/2023 7:06 AM
[2023-12-31] MEDS: DAPTOmycin 225 MG in SYRINGE 0 ML IV SCH (07:20)
[2023-12-31 07:21] LABS: BUN Creatinine Ratio 33.7 (10-20); Calcium 8.9 mg/dl (8.6-10.3); Creatinine Clr Calc Pharmacy 50.8 ml/min; Est GFR (African American) 71.6 ml/min; Est GFR (Non-African American) 61.8 ml/min; Potassium 4.6 mmol/L (3.5-5.1)
[2023-12-31] MEDS: cefTRIAXone SODIUM 2,000 MG/50 ML BAG IV STA (07:21)
[2023-12-31 07:23] LABS: Hematocrit (blood only) 33.9 % (37.0-47.0); Hemoglobin 10.7 g/dl (12.0-16.0); Mean Corpuscular Hemoglobin 29.5 pg (25.0-34.0); Mean Corpuscular Hgb Conc 31.6 g/dL (32.0-36.0); Mean Corpuscular Volume 93.4 fL (80.0-100.0); Mean Platelet Volume 10.1 fL (9.4-12.4); Platelet Count 155 K/uL (130-400); RDW Coefficient of Variation 15.9 % (11.5-14.5); RDW Standard Deviation 54.8 fL (36.4-46.3); Red Blood Count 3.63 M/uL (4.20-5.40); White Blood Count 17.12 K/ul (4.8-10.8)
[2023-12-31 07:28] LABS: Troponin I High Sensitivity 10.8 pg/ml (0-14)
[2023-12-31 07:30] LABS: Prothrombin Time 10.6 Seconds (9.0-12.0)
--- NOTE | 2023-12-31 07:33 | XRay Report ---
LEFT SHOULDER 3 VIEWS CLINICAL HISTORY: Left shoulder injury. FINDINGS: 3 views of the left shoulder are compared to study dated 06/26/2020. The skeletal structure s are osteopenic. There is no radiographic evidence of fracture or dislocation. Moderate osteoarthrit ic change is seen at the glenohumeral articulation. There is productive degenerative change at the ac romioclavicular joint. Superior subluxation of the humeral head suggests chronic rotator cuff injury. The overlying soft tissues are normal as imaged. The visualized left lung parenchyma appears clear. IMPRESSION: Osteopenia and arthritic change as above with no acute bony abnormality identified. Electronically signed by: Julian Sibley M.D. 12/31/2023 7:32 AM
[2023-12-31 07:42] LABS: Basophils # (auto) 0.01 K/uL (0.00-0.20); Basophils % (auto) 0.1 %; Immature Granulocytes # (auto) 0.12 K/uL (0.01-0.20); Immature Granulocytes % (auto) 0.7 %; Lymphocytes # (auto) 0.34 K/uL (1.20-3.40); Monocytes # (auto) 0.28 K/uL (0.11-0.59); Monocytes % (auto) 1.6 %; Neutrophils # (auto) 16.37 K/uL (1.40-6.50); Neutrophils % (auto) 95.6 %
--- NOTE | 2023-12-31 08:38 | History & Physical Report ---
Date of Service December 31, 2023 Assessment & Plan (1) Fall: Plan: Mechanical fall while going to the bathroom injuring both shoulders No head injury Complaining of bilateral shoulder pain more on the left Usually mobile with assistive device like walker and cane Will get PT and OT evaluation Social service for discharge planning (2) Shoulder pain, acute: Plan: History of shoulder dislocation Complaining of pain in the left shoulder more than the right Shoulder x-ray did not show any fracture She will be given appropriate pain medications (3) Cellulitis of leg, right: Plan: History of leg swelling and bilateral leg cellulitis Right leg is now acutely inflamed with swelling and spreading cellulitis No obvious skin break or ulceration Will ask for wound care consult Has been getting intravenous ceftriaxone and daptomycin Like to transition to oral amoxicillin as she has been getting as an outpatient (4) Paroxysmal atrial fibrillation: Plan: Rate is controlled and now in sinus rhythm Has been on Coumadin with prior history of DVT and PE as well INR is subtherapeutic Will continue with subcu Lovenox and Coumadin until INR is therapeutic (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 History of bilateral shoulder dislocation and chronic pain involving the back (6) Chronic heart failure with preserved ejection fraction (HFpEF): Plan: Does not have any signs and or symptoms of fluid overload (7) BRANDIE (obstructive sleep apnea): Plan: Remains elevated stable (8) Chronic hypotension: Plan: Has been on midodrine Will continue Chronic back pain Recent injection at the back and her Coumadin was on hold She is being getting Lovenox now until the INR is therapeutic Other significant medical conditions as documented in medical history remain stable DVT prophylaxis Will continue with subcu Lovenox and Coumadin Check INR CODE STATUS Full History of Present Illness Chief Complaint: Fall with bilateral shoulder pain, left more than right Primary Care Provider: [facility] She is a 73-year-old female with significant past medical history of POTS, chronic low blood pressure, chronic pain, Edenislon-Danlos syndrome, history of DVT PE and also paroxysmal A-fib on anticoagulation hypothyroidism chronic anemia, BRANDIE, PTSD, history of gastric bypass and other medical issues as documented in the history apparently fell at [facility] while in the bathroom and complaining of bilateral shoulder pain. She also has swelling and more redness involving manage in the right lower extremity and does not have any fever and or chills. She has an injection of the back for the chronic back pain and her Coumadin has been on hold and that was pleased with Lovenox. She does not have any other complaints of chest pain, palpitation or shortness of breath. Denies any fever and chills. Denies any abdominal pain nausea and/or vomiting. She has noted to have high white count and x-rays of the shoulder did not show any fracture and she does have right lower leg extremity spreading cellulitis. She was admitted to medical telemetry unit for continuation of the care and she was started with intravenous ceftriaxone and daptomycin and continued Lovenox and Coumadin until her INR is therapeutic. Allergies Allergy/AdvReac Type Severity Reaction Status Date / Time ammonia Allergy Severe FACE, Verified 12/19/23 13:59 LIPS, TONGUE EDEMA buspirone Allergy Severe NEURO Verified 12/19/23 13:59 COMPLICATIONS duloxetine Allergy Intermediate RASH Verified 12/19/23 13:59 ITCHING adhesive Allergy Mild skin tears Verified 12/19/23 13:59 vancomycin Allergy Unknown ON [facility] Verified 12/19/23 13:59 MED LIST diphenhydramine AdvReac Intermediate RESTLESS Verified 12/19/23 13:59 LEGS gabapentin AdvReac Intermediate MUSCLE Verified 12/19/23 13:59 STIFFNESS lisinopril AdvReac Intermediate cough Verified 12/19/23 13:59 NSAIDS (Non-Steroidal AdvReac Unknown not Verified 12/19/23 13:59 Anti-Inflamma supposed to use-S/P GASTRIC BYPASS venlafaxine AdvReac Unknown AFFECTS Verified 12/19/23 13:59 LEGS Home Medications Medication Instructions Recorded Confirmed Type atorvastatin 20 mg tablet 20 mg PO .@0800 01/09/22 12/31/23 History buprenorphine 15 mcg/hour weekly 1 patch topical WK 01/09/22 12/31/23 History transdermal patch carbidopa 25 mg-levodopa 100 mg 1 tab PO .0800,1199,1599,199901/09/22 12/31/23 History tablet fluticasone propionate 50 2 spray intranasal .@08,199901/09/22 12/31/23 History mcg/actuation nasal spray,suspension (Flonase Allergy Relief) hydroxyzine HCl 25 mg tablet 25 mg PO QID PRN ANXIETY/ITCHING 01/09/22 12/31/23 History levothyroxine 50 mcg tablet 50 mcg PO .@79901/09/22 12/31/23 History montelukast 10 mg tablet 10 mg PO .@199901/09/22 12/31/23 History Saccharomyces boulardii 250 mg 250 mg PO .@799,199910/03/22 12/31/23 History capsule (Florastor) acetaminophen 500 mg tablet 1,000 mg PO Q8H PRN TEMP >100F/PAIN 12/10/22 12/31/23 History (Tylenol Extra Strength) loperamide 2 mg tablet 2 mg PO Q6H PRN Diarrhea 12/10/22 12/31/23 History mirtazapine 30 mg tablet 30 mg PO .@199912/10/22 12/31/23 History ergocalciferol (vitamin D2) 25,000 50,000 unit PO .WED@79903/07/23 12/31/23 History unit capsule omeprazole 20 mg tablet,delayed 40 mg PO .@79907/29/23 12/31/23 History release ropinirole 5 mg tablet 2.5 mg PO .@0800,1500,199907/29/23 12/31/23 History torsemide 20 mg tablet 40 mg PO .@79907/29/23 12/31/23 History potassium chloride 20 mEq oral 20 meq PO DAILY #30 ea 07/31/23 12/31/23 Rx packet ferrous sulfate 325 mg (65 mg 325 mg PO QAM #0 tabs 11/09/23 12/31/23 Rx iron) tablet,delayed release hydrocortisone 2.5 % topical cream 1 applic EXT Q4H PRN #0 grams 11/09/23 12/31/23 Rx with perineal applicator (Proctosol HC) metoprolol tartrate 25 mg tablet 25 mg PO TID #0 tabs 11/09/23 12/31/23 Rx midodrine 2.5 mg tablet 5 mg (2 x 2.5 mg) PO 11/09/23 12/31/23 Rx TID@0800,1300,1800 #0 tabs ondansetron HCl 4 mg tablet 4 mg PO Q8H PRN Nausea And Vomiting 12/19/23 12/31/23 History docusate sodium 100 mg capsule 100 mg PO BID 12/31/23 12/31/23 History enoxaparin 80 mg/0.8 mL 80 mg subcut Q12H 12/31/23 12/31/23 History subcutaneous syringe loperamide 2 mg capsule 2 mg PO Q6H PRN Diarrhea 12/31/23 12/31/23 History (Anti-Diarrheal (loperamide)) oxycodone 5 mg tablet 5 mg PO Q4H PRN Pain 12/31/23 12/31/23 History vit C 250 mg-vit E 90 mg-zinc 40 1 tab PO BID 12/31/23 12/31/23 History mg-copper 1 ac-[id number] capsule (PreserVision AREDS-2) warfarin 5 mg tablet 5 mg PO PM 12/31/23 12/31/23 History Past Med/Surg History Problem List (Updated 12/31/23 @ 08:33 by Radha South MD) Shoulder pain, acute Preoperative cardiovascular examination Paroxysmal atrial fibrillation Cellulitis (Acute) Leukocytosis (Acute) Sepsis (Acute) BRANDIE (obstructive sleep apnea) Chronic hypotension Elevated troponin Tachycardia Edenilson-Danlos syndrome Hematoma of oral cavity Bleeding gums Elevated INR (Acute) 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 (Acute) Sleep apnea intermittently able to tolerate CPAP Back problem Heart disease Bronchitis Arthritis Dislocation closed, shoulder Chronic heart failure with preserved ejection fraction (HFpEF) Recurrent falls Encounter for pre-operative examination Thoracic aortic aneurysm (Acute) Paroxysmal SVT (supraventricular tachycardia) Cellulitis of right foot Ambulatory dysfunction Arthritis of foot Cellulitis of foot, right (Acute) Sepsis Left leg pain (Acute) Edema (Acute) Cellulitis (Acute) Leukocytosis (Acute) Cellulitis of left leg Traumatic ecchymosis of left lower leg DVT prophylaxis Chronic pain (Acute) Obesity detention current use of anticoagulant therapy (Acute) Cellulitis of leg, right (Acute) Fall (Acute) Rhabdomyolysis (Acute) JAEL (acute kidney injury) (Acute) Acute hypokalemia (Acute) Contusion of multiple sites (Acute) Acute UTI (Acute) Adult failure to thrive (Acute) COVID-19 Unable to care for self Bilateral lower leg cellulitis (Acute) Leukocytosis (Acute) Generalized weakness (Acute) Sepsis Shoulder subluxation, right (Acute) Cellulitis of lower extremity Dislocation of right shoulder joint Leg swelling (Acute) Hypokalemia (Acute) Bilateral leg pain (Acute) Bacteremia (Acute) Chronic pain syndrome (Acute) Lymphedema (Acute) Diverticulitis Diverticular disease of intestine with perforation and abscess Fever (Acute) Acute UTI (urinary tract infection) (Acute) Sepsis (Acute) Anemia Acute exacerbation of chronic low back pain Opioid dependence Fibromyalgia History of DVT (deep vein thrombosis) chronic anticoagulation Protein C deficiency Peripheral neuropathy GERD (gastroesophageal reflux disease) Gastroparesis Asthma uses PRN INH 3-4 x wk Hypothyroidism Restless leg syndrome Edenilson-Danlos syndrome (Acute) ISAC (generalized anxiety disorder) Pulmonary embolism 07/2018 - treated w/ lovenox - unk etiology Medical History (Updated 12/31/23 @ 08:33 by Radha South MD) Hx of blood clots Thyroid disease Skin cancer Head injury Parkinson disease Acute kidney injury Abdominal hernia Coagulopathy Hypokalemia Weakness Dysphagia History of colon polyps Difficult intravenous access History of intestinal obstruction Bulging of intervertebral disc Osteoporosis Osteoarthritis Renal cyst History of colon polyps Thyroid nodule Hearing deficit ADHD Hyperlipidemia Claustrophobia Thoracic aortic aneurysm follows w/ Dr. Arredondo - evaluated within last 6 mo Surgical History (Updated 11/14/23 @ 00:09 by Chandler Morton) History of incision and drainage (11/04/23) Facial Incision and Drainage and removal of multiple teeth(Not Applicable) - Raphael Mcqueen, DMD Hx of melanoma excision shoulder Self extubation attempted post gastric bypass History of laparotomy History of left knee replacement History of intestinal surgery History of right knee joint replacement History of arthroscopy of left knee History of abdominoplasty + hernia repair History of bilateral breast reduction surgery History of cholecystectomy History of tonsillectomy History of gastric bypass History of esophagogastroduodenoscopy (EGD) History of colonoscopy 2019 Status post biopsy of thyroid gland benign Family History Uncle Stomach cancer Cancer Family/Other Breast cancer Grandfather Cancer Mother Heart disease Hypertension Stroke Grandmother Heart disease Stroke Other No family history of adverse response to anesthesia No pertinent family history in first degree relatives Social History Smoking Status: Never smoker Second Hand Exposure: Yes; Do You Dip or Chew Tobacco: No; Hx Alcohol Use: Yes Alcohol type: wine and hard liquor Hx Substance Use: No Preferred Language: Kazakh Communication Ability: Effective Communication Ability Comment: pt is obtunded Visual Impairment: Limited Hearing Ability: Normal Collections Assistant Required: No Beliefs That Will Affect Care: None marital status: Single Current Living Situation: Alone and Personal Care Facility Current Living Situation Comment: Condo - First Floor, able to specify name of Apartment Complex. current occupational status: retired How many Children do You have: 0 Feels Safe at Home: Yes Diet: regular during the past year weight has: remained stable Assistive Devices: Walker Review of Systems Review of Systems: All systems reviewed and are unremarkable except as noted below Physical Exam Physical Exam: Lying in bed and noted to have low blood pressure systolic around less than 100 Constitutional: well developed, well nourished, + ill appearing and + obese Eyes: PERRL, conjunctivae normal, anicteric sclerae ENMT: external ear and nose normal, oropharynx normal Neck: trachea midline, no thyromegaly Respiratory: no respiratory distress Auscultation: + diminished lung sounds and + crackles (Minimal crackles at the bases) Cardiovascular: Rate/Rhythm: regular rate and regular rhythm; not tachycardic Heart Sounds: normal S1 and normal S2; no murmur Extremities: + edema (Bilateral leg edema with redness involving the right lower extremity) Gastrointestinal (Abdomen): Inspection/Auscultation: normal bowel sounds; abdomen not distended Percussion/Palpation: abdomen soft; abdomen nontender Musculoskeletal: Movement of the shoulders the pain mostly the left side Skin: Skin is thin and fragile Neurologic: normal touch/pain/proprioception and moves all extremities; no focal motor deficits Lymphatic: no cervical or axillary lymphadenopathy Results & Data Results & Data Vital Signs (Past 12 Hours) Vital Signs Temp Pulse Pulse Resp BP BP Pulse Ox 12/31/23 07:00 77 22 98/73 L 95 12/31/23 05:16 75 12/31/23 05:10 72 125/81 12/31/23 05:10 36.9 C 72 20 125/81 96 O2 Del Method 12/31/23 07:00 Room Air 12/31/23 05:16 12/31/23 05:10 12/31/23 05:10 Room Air Laboratory Results Short CBC 12/31/23 Range/Units 06:36 WBC 17.12 H (4.8-10.8) K/ul Hgb 10.7 L (12.0-16.0) g/dl Hct 33.9 L (37.0-47.0) % Plt Count 155 (130-400) K/uL BMP 12/31/23 06:36 Sodium 133 L Potassium 4.6 Chloride 100 Carbon Dioxide 27 BUN 31 H Creatinine 0.92 Glucose 91 Calcium 8.9 Medications Administered Current Inpatient Medications Daptomycin 225 mg/ Syringe 4.5 mls @ 2.25 mls/min IV Q24H ASHUTOSH; Protocol Stop: 01/02/24 06:29 Last Admin: 12/31/23 07:20 Dose: 2.25 mls/min Ceftriaxone Sodium (Rocephin) 2,000 mg in 50 mls @ 100 mls/hr IV Q24H ASHUTOSH Stop: 01/07/24 08:29 Code Status & VTE Plan VTE Prophylaxis Plan VTE Prophylaxis will be ordered: Yes
[2023-12-31] MEDS: SODIUM CHLORIDE 0.9% 250 ML IV ONE (08:50)
[2023-12-31] MEDS ORDERED: HYDROCORTISONE HC 2.5% CRM 30GM TUBE EXT PRN (10:35)
--- NOTE | 2023-12-31 10:53 | Electrocardiogram Report ---
Test Reason : Blood Pressure : / mmHG Vent. Rate : 076 BPM Atrial Rate : 076 BPM P-R Int : 170 ms QRS Dur : 112 ms QT Int : 382 ms P-R-T Axes : 056 -15 054 degrees QTc Int : 429 ms Normal sinus rhythm Left atrial enlargement Incomplete right bundle branch block Borderline ECG When compared with ECG of 01-NOV-2023 05:28, Sinus rhythm has replaced Atrial fibrillation Vent. rate has decreased BY 49 BPM Incomplete right bundle branch block has replaced Right bundle branch block Confirmed by Carmelo Yung ([id number]) on 12/31/2023 10:53:12 AM Referred By: REFERRED SELF Confirmed By:Carmelo Yung
[2023-12-31] MEDS: DICLOFENAC SOD 1% GEL 100 GM TUBE EXT SCH (11:01)
[2023-12-31] MEDS: ENOXAPARIN 80 MG/0.8 ML SYR SQ SCH (12:24)
[2023-12-31] MEDS: FLUTICASONE PROPIONATE NA SPR 16 GM BTL SCH (12:25)
[2023-12-31] MEDS: POTASSIUM CHLORIDE PWD 20 MEQ PACK PO SCH (12:27)
[2023-12-31] MEDS: rOPINIRole HCL 1 MG TABLET PO SCH (13:05)
[2023-12-31] MEDS: FERROUS SULFATE 325 MG TAB PO SCH (13:06)
[2023-12-31] MEDS: MIDODRINE HCL 2.5 MG TAB PO SCH (13:07)
[2023-12-31] MEDS: PANTOprazole 40 MG TAB PO SCH (13:07)
[2023-12-31] MEDS: rOPINIRole HCL 2 MG TABLET PO SCH (13:07)
[2023-12-31] MEDS: METOPROLOL TARTRATE 25 MG TAB PO SCH (13:07)
[2023-12-31] MEDS: LEVOTHYROXINE SODIUM 50 MCG TABLET PO SCH (13:08)
[2023-12-31] MEDS: CARBIDOPA/LEVODOPA 25/100MG TAB PO SCH (13:08)
[2023-12-31] MEDS: WARFARIN SOD 4 MG TAB PO SCH (17:54)
[2023-12-31] MEDS: ACETAMINOPHEN 500 MG TAB PO PRN (20:53)
[2023-12-31] MEDS: MIRTAZAPINE TAB 15 MG TAB PO SCH (20:57)
[2023-12-31] MEDS: MONTELUKAST SODIUM 10 MG TABLET PO SCH (20:58)
[2023-12-31] MEDS: SACCHAROMYCES BOULARDII 250 MG CAP PO SCH (20:59)
[2023-12-31] MEDS: SODIUM CHLORIDE 0.9% 500 ML IV SCH (22:22)
[2024-01-01] MEDS: MoRPHine SULFATE 2 MG/ML CARP IV PRN ×2 (04:31→09:38)
[2024-01-01] MEDS: MoRPHine SULFATE 4 MG/ML 1 ML CARP\\VIAL IV STA (05:58)
[2024-01-01] MEDS: cefTRIAXone SODIUM 2,000 MG/50 ML BAG IV SCH (06:25)
[2024-01-01 07:27] LABS: Calcium 8.4 mg/dl (8.6-10.3); Potassium 4.1 mmol/L (3.5-5.1)
[2024-01-01 07:33] LABS: BUN Creatinine Ratio 30.7 (10-20); Est GFR (African American) 91.7 ml/min; Est GFR (Non-African American) 79.1 ml/min
[2024-01-01 07:37] LABS: INR 0.9 (0.9-1.1); Prothrombin Time 10.3 Seconds (9.0-12.0)
[2024-01-01 08:05] LABS: Basophils # (auto) 0.01 K/uL (0.00-0.20); Basophils % (auto) 0.1 %; Eosinophils # (auto) 0.01 K/uL (0.00-0.50); Eosinophils % (auto) 0.1 %; Hemoglobin 10.2 g/dl (12.0-16.0); Immature Granulocytes # (auto) 0.05 K/uL (0.01-0.20); Immature Granulocytes % (auto) 0.4 %; Lymphocytes # (auto) 0.28 K/uL (1.20-3.40); Lymphocytes % (auto) 2.1 %; Mean Corpuscular Hemoglobin 29.8 pg (25.0-34.0); Mean Corpuscular Hgb Conc 30.9 g/dL (32.0-36.0); Mean Corpuscular Volume 96.5 fL (80.0-100.0); Mean Platelet Volume 10.7 fL (9.4-12.4); Monocytes # (auto) 0.37 K/uL (0.11-0.59); Monocytes % (auto) 2.8 %; Neutrophils # (auto) 12.31 K/uL (1.40-6.50); Neutrophils % (auto) 94.5 %; Platelet Count 117 K/uL (130-400); RDW Coefficient of Variation 15.9 % (11.5-14.5); Red Blood Count 3.42 M/uL (4.20-5.40); White Blood Count 13.03 K/ul (4.8-10.8)
[2024-01-01] MEDS: CHECK BUPRENORPHINE PATCH SCH (09:29)
[2024-01-01] MEDS: DICLOFENAC SOD 1% GEL 100 GM TUBE EXT SCH (09:35)
[2024-01-01] MEDS: hydrOXYzine HCl 25 MG TAB PO PRN (13:11)
--- NOTE | 2024-01-01 17:33 | Hospitalist Progress Note ---
Date of Service January 01, 2024 Assessment & Plan (1) Fall: Plan: Mechanical fall while going to the bathroom injuring both shoulders No head injury Complaining of bilateral shoulder pain due to fall usually uses walker/cane for ambulation Fall precautions PT and OT evaluation as able (2) Shoulder pain, acute: Plan: History of shoulder dislocation Shoulder x-ray did not show any fracture Pain control (3) Cellulitis of leg, right: Plan: H/O leg swelling and bilateral leg cellulitis -- Blood cultures pending Continue ceftriaxone, Dapto (4) Paroxysmal atrial fibrillation: Plan: H/O PE/DVT Rate is controlled Subtherapeutic INR Continue metoprolol Continue Coumadin Continue SQ Lovenox until INR therapeutic (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 History of bilateral shoulder dislocation and chronic pain involving the back (6) Chronic heart failure with preserved ejection fraction (HFpEF): Plan: Resume Torsemide Monitor volume status (7) BRANDIE (obstructive sleep apnea): Plan: stable (8) Chronic hypotension: Plan: on midodrine monitor Chronic back pain Recent injection at the back and her Coumadin was on hold Other significant medical conditions as documented in medical history stable DVT Px: SQ Lovenox and Coumadin CODE STATUS Full Code Admission and Anticipated Discharge Date Admission Date: December 31, 2023 Subjective Patient is seen and examined at bedside States having bilateral shoulder pain and right leg pain Feels anxious this morning Denies any chest pain, dyspnea, nausea, vomiting, abdominal pain No other complaints Review of Systems Review of Systems: All systems reviewed & are unremarkable except as noted in Subjective Physical Exam Physical Exam: Physical Exam: Vitals signs as noted above General Appearance:Obese, no apparent distress, chronic ill appearing Head: normocephalic, Atraumatic Eyes: normal inspection, EOMI Neck: supple, Trachea midline Respiratory/Chest: Decreased breath sounds, CTA, No accessory muscle use Cardiovascular: S1, S2, + murmur Abdomen/GI:Soft, Non tender, Bowel sounds present Extremities/Musculoskeletal:normal inspection, B/L LE edema, +erythema Neurologic/Psych:AAOX3, grossly no focal neurological deficits Skin: normal color, warm Results & Data Results & Data Vital Signs (Past 12 Hours) Vital Signs Temp Pulse Pulse Resp BP BP Pulse Ox 01/01/24 15:49 61 01/01/24 15:46 36.9 C 56 L 16 118/72 96 01/01/24 12:05 36.8 C 62 16 131/77 96 01/01/24 08:43 01/01/24 07:43 36.7 C 59 L 16 108/66 97 01/01/24 07:42 63 O2 Del Method 01/01/24 15:49 01/01/24 15:46 Room Air 01/01/24 12:05 Room Air 01/01/24 08:43 Room Air 01/01/24 07:43 Room Air 01/01/24 07:42 Laboratory Results Short CBC 01/01/24 Range/Units 06:43 WBC 13.03 H (4.8-10.8) K/ul Hgb 10.2 L (12.0-16.0) g/dl Hct 33.0 L (37.0-47.0) % Plt Count 117 L (130-400) K/uL BMP 01/01/24 06:43 Sodium 134 L Potassium 4.1 Chloride 104 Carbon Dioxide 23 BUN 23 Creatinine 0.75 Glucose 117 H Calcium 8.4 L
[2024-01-01] MEDS: WARFARIN SOD 6 MG TAB PO SCH (17:45)
[2024-01-01] MEDS: TORSEMIDE 20 MG TAB PO SCH (19:19)
[2024-01-02 05:42] LABS: Appearance Urine Clear (Clear); Bacteria Urine Automated None Seen (None Seen); Bilirubin Urine Negative (Negative); Blood Urine Negative (Negative); Cast Urine Automated 0-2 /lpf (0-2); Color Urine Yellow; Epithelial Cell Urine Auto 0-2 /hpf (0-2); Glucose Urine UA Negative (Negative); Ketones Urine Negative (Negative); Leukocyte Esterase Urine Negative (Negative); Nitrite Urine Negative (Negative); Protein Urine Trace (Negative); RBC Urine Automated 0-2 /hpf (0-2); Specific Gravity Urine 1.013 (1.000-1.030); Urobilinogen Urine Negative (Negative); WBC Urine Automated 0-5 /hpf (0-5)
[2024-01-02 07:09] LABS: Hematocrit (blood only) 32.1 % (37.0-47.0); Mean Corpuscular Hemoglobin 29.5 pg (25.0-34.0); Mean Corpuscular Hgb Conc 31.2 g/dL (32.0-36.0); Mean Corpuscular Volume 94.7 fL (80.0-100.0); Mean Platelet Volume 10.9 fL (9.4-12.4); Platelet Count 131 K/uL (130-400); RDW Coefficient of Variation 15.6 % (11.5-14.5); RDW Standard Deviation 54.2 fL (36.4-46.3); Red Blood Count 3.39 M/uL (4.20-5.40); White Blood Count 9.99 K/ul (4.8-10.8)
[2024-01-02 07:32] LABS: BUN Creatinine Ratio 24.6 (10-20); Calcium 8.4 mg/dl (8.6-10.3); Creatinine Clr Calc Pharmacy 76.5 ml/min; Est GFR (African American) 104.2 ml/min; Est GFR (Non-African American) 89.9 ml/min; Potassium 4.4 mmol/L (3.5-5.1)
[2024-01-02 07:35] LABS: INR 1.1 (0.9-1.1); Prothrombin Time 11.4 Seconds (9.0-12.0)
[2024-01-02] MEDS: BUPRENORPHINE 5 MCG/HR TDSY TD SCH (09:52)
--- NOTE | 2024-01-02 16:10 | Hospitalist Progress Note ---
Date of Service January 02, 2024 Assessment & Plan (1) Fall: Plan: Mechanical fall while going to the bathroom injuring both shoulders No head injury Complaining of bilateral shoulder pain due to fall usually uses walker/cane for ambulation Fall precautions Continue PT OT (2) Shoulder pain, acute: Plan: History of shoulder dislocation Shoulder x-ray did not show any fracture Pain control Slowly improving (3) Cellulitis of leg, right: Plan: H/O leg swelling and bilateral leg cellulitis -- Blood cultures negative to date Continue ceftriaxone, Dapto Transition to p.o. 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 History of bilateral shoulder dislocation and chronic pain involving the back (6) Chronic heart failure with preserved ejection fraction (HFpEF): Plan: continue Torsemide Monitor volume status (7) BRANDIE (obstructive sleep apnea): Plan: stable (8) Chronic hypotension: Plan: on midodrine monitor Chronic back pain Recent injection at the back and her Coumadin was on hold Other significant medical conditions as documented in medical history stable DVT Px: SQ Lovenox and Coumadin for now CODE STATUS Full Code Admission and Anticipated Discharge Date Admission Date: December 31, 2023 Subjective Patient is seen and examined at bedside States feeling better today Shoulder, leg pain is controlled No new complaints Denies any chest pain, dyspnea, nausea, vomiting, abdominal pain Blood cultures remain negative Review of Systems Review of Systems: All systems reviewed & are unremarkable except as noted in Subjective Physical Exam Physical Exam: Physical Exam: Vitals signs as noted above General Appearance:Obese, no apparent distress, chronic ill appearing Head: normocephalic, Atraumatic Eyes: normal inspection, EOMI Neck: supple, Trachea midline Respiratory/Chest: Decreased breath sounds, CTA, No accessory muscle use Cardiovascular: S1, S2, + murmur Abdomen/GI:Soft, Non tender, Bowel sounds present Extremities/Musculoskeletal:normal inspection, B/L LE edema, +erythema Neurologic/Psych:AAOX3, grossly no focal neurological deficits Skin: normal color, warm Results & Data Results & Data Vital Signs (Past 12 Hours) Vital Signs Temp Pulse Pulse Resp BP Pulse Ox O2 Del Method 01/02/24 12:14 37.0 C 74 16 129/83 100 Room Air 01/02/24 09:06 60 01/02/24 08:02 Room Air 01/02/24 07:56 36.9 C 68 16 132/76 95 Room Air 01/02/24 04:56 36.6 C 71 18 119/72 98 Room Air Laboratory Results Short CBC 01/02/24 Range/Units 06:07 WBC 9.99 (4.8-10.8) K/ul Hgb 10.0 L (12.0-16.0) g/dl Hct 32.1 L (37.0-47.0) % Plt Count 131 (130-400) K/uL BMP 01/02/24 06:07 Sodium 133 L Potassium 4.4 Chloride 103 Carbon Dioxide 23 BUN 15 Creatinine 0.61 Glucose 120 H Calcium 8.4 L Urine 01/02/24 Range/Units 05:20 Urine Color Yellow Urine Appearance Clear (Clear) Urine pH 7.0 (4.5-7.5) Ur Specific [place] 1.013 (1.000-1.030) Urine Protein Trace H (Negative) Urine Glucose (UA) Negative (Negative)
[2024-01-02] MEDS: WARFARIN SOD 7.5 MG TAB PO SCH (16:35)
[2024-01-03 06:22] LABS: Hematocrit (blood only) 33.5 % (37.0-47.0); Hemoglobin 10.8 g/dl (12.0-16.0); Mean Corpuscular Hemoglobin 29.9 pg (25.0-34.0); Mean Corpuscular Hgb Conc 32.2 g/dL (32.0-36.0); Mean Corpuscular Volume 92.8 fL (80.0-100.0); Mean Platelet Volume 10.4 fL (9.4-12.4); Platelet Count 162 K/uL (130-400); RDW Coefficient of Variation 15.1 % (11.5-14.5); RDW Standard Deviation 51.8 fL (36.4-46.3); Red Blood Count 3.61 M/uL (4.20-5.40)
[2024-01-03 06:48] LABS: Calcium 8.4 mg/dl (8.6-10.3); Creatinine Clr Calc Pharmacy 60.8 ml/min; Est GFR (African American) 90.2 ml/min; Est GFR (Non-African American) 77.8 ml/min; Potassium 3.9 mmol/L (3.5-5.1)
[2024-01-03 06:50] LABS: INR 1.6 (0.9-1.1); Prothrombin Time 16.9 Seconds (9.0-12.0)
--- NOTE | 2024-01-03 15:28 | Hospitalist Progress Note ---
Date of Service January 03, 2024 Assessment & Plan (1) Fall: Plan: Mechanical fall while going to the bathroom injuring both shoulders No head injury Complaining of bilateral shoulder pain due to fall usually uses walker/cane for ambulation Fall precautions Continue PT OT Will benefit from rehab (2) Shoulder pain, acute: Plan: History of shoulder dislocation Shoulder x-ray did not show any fracture Pain control Slowly improving (3) Cellulitis of leg, right: Plan: H/O leg swelling and bilateral leg cellulitis -- Blood cultures negative to date Continue ceftriaxone, Dapto Will transition to p.o. 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 History of bilateral shoulder dislocation and chronic pain involving the back (6) Chronic heart failure with preserved ejection fraction (HFpEF): Plan: continue Torsemide Monitor volume status (7) BRANDIE (obstructive sleep apnea): Plan: stable (8) Chronic hypotension: Plan: on midodrine monitor Chronic back pain Recent injection at the back and her Coumadin was on hold Other significant medical conditions as documented in medical history stable DVT Px: SQ Lovenox and Coumadin for now CODE STATUS Full Code Disposition Rehab as able Admission and Anticipated Discharge Date Admission Date: December 31, 2023 Subjective Patient is seen and examined at bedside Leg pain better today Shoulder pain is controlled No new complaints Leg erythema improving Denies any chest pain, dyspnea, nausea, vomiting, abdominal pain Review of Systems Review of Systems: All systems reviewed & are unremarkable except as noted in Subjective Physical Exam Physical Exam: Physical Exam: Vitals signs as noted above General Appearance:Obese, no apparent distress, chronic ill appearing Head: normocephalic, Atraumatic Eyes: normal inspection, EOMI Neck: supple, Trachea midline Respiratory/Chest: Decreased breath sounds, CTA, No accessory muscle use Cardiovascular: S1, S2, + murmur Abdomen/GI:Soft, Non tender, Bowel sounds present Extremities/Musculoskeletal:normal inspection, B/L LE edema, +erythema Neurologic/Psych:AAOX3, grossly no focal neurological deficits Skin: normal color, warm Results & Data Results & Data Vital Signs (Past 12 Hours) Vital Signs Temp Pulse Pulse Resp BP Pulse Ox O2 Del Method 01/03/24 15:15 36.2 C L 77 16 114/81 93 Room Air 01/03/24 13:59 85 01/03/24 11:45 36.6 C 64 16 130/73 95 Room Air 01/03/24 08:29 36.6 C 62 16 137/85 95 Room Air 01/03/24 05:58 64 01/03/24 04:07 36.9 C 68 16 113/75 97 Room Air Laboratory Results Short CBC 01/03/24 Range/Units 05:54 WBC 7.80 (4.8-10.8) K/ul Hgb 10.8 L (12.0-16.0) g/dl Hct 33.5 L (37.0-47.0) % Plt Count 162 (130-400) K/uL BMP 01/03/24 05:54 Sodium 136 Potassium 3.9 Chloride 103 Carbon Dioxide 25 BUN 19 Creatinine 0.76 Glucose 111 H Calcium 8.4 L
[2024-01-04 07:26] LABS: Calcium 8.7 mg/dl (8.6-10.3); Potassium 3.6 mmol/L (3.5-5.1)
[2024-01-04 07:29] LABS: INR 2.5 (0.9-1.1); Prothrombin Time 24.7 Seconds (9.0-12.0)
[2024-01-04 07:32] LABS: BUN Creatinine Ratio 32.5 (10-20); Creatinine Clr Calc Pharmacy 57.2 ml/min; Est GFR (African American) 88.8 ml/min; Est GFR (Non-African American) 76.6 ml/min
[2024-01-04] MEDS: DOXYCYCLINE HYCLATE 100 MG CAP PO SCH (10:00)
--- NOTE | 2024-01-04 12:41 | Hospitalist Progress Note ---
Date of Service January 04, 2024 Assessment & Plan (1) Fall: Plan: Mechanical fall while going to the bathroom injuring both shoulders No head injury Complaining of bilateral shoulder pain due to fall usually uses walker/cane for ambulation Fall precautions Continue PT OT Plan to discharge to rehab facility today (2) Shoulder pain, acute: Plan: History of shoulder dislocation Shoulder x-ray did not show any fracture Pain control Slowly improved (3) Cellulitis of leg, right: Plan: H/O leg swelling and bilateral leg cellulitis -- Blood cultures negative to date Continue ceftriaxone, Dapto Transition IV antibiotics to cefdinir, doxycycline (4) Paroxysmal atrial fibrillation: Plan: H/O PE/DVT Rate is controlled Subtherapeutic INR on presentation Continue metoprolol INR 2.5 today Continue Coumadin Discontinue SQ Lovenox (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 History of bilateral shoulder dislocation and chronic pain involving the back (6) Chronic heart failure with preserved ejection fraction (HFpEF): Plan: continue Torsemide Monitor volume status (7) BRANDIE (obstructive sleep apnea): Plan: stable (8) Chronic hypotension: Plan: on midodrine monitor Chronic back pain Recent injection at the back and her Coumadin was on hold Other significant medical conditions as documented in medical history stable DVT Px: Coumadin CODE STATUS Full Code Disposition Rehab Admission and Anticipated Discharge Date Admission Date: December 31, 2023 Subjective Patient is seen and examined at bedside States feeling better today Shoulder, leg pain improved Transient nausea this morning Sitting in chair during my encounter No new complaints Denies any chest pain, dyspnea, nausea, vomiting, abdominal pain Review of Systems Review of Systems: All systems reviewed & are unremarkable except as noted in Subjective Physical Exam Physical Exam: Physical Exam: Vitals signs as noted above General Appearance:Obese, no apparent distress, chronic ill appearing Head: normocephalic, Atraumatic Eyes: normal inspection, EOMI Neck: supple, Trachea midline Respiratory/Chest: Decreased breath sounds, CTA, No accessory muscle use Cardiovascular: S1, S2, + murmur Abdomen/GI:Soft, Non tender, Bowel sounds present Extremities/Musculoskeletal:normal inspection, B/L LE edema, +erythema Neurologic/Psych:AAOX3, grossly no focal neurological deficits Skin: normal color, warm Results & Data Results & Data Vital Signs (Past 12 Hours) Vital Signs Temp Pulse Pulse Resp BP BP Pulse Ox 01/04/24 11:39 36.4 C L 65 20 139/92 98 01/04/24 08:00 01/04/24 07:40 36.7 C 70 20 130/84 95 01/04/24 07:00 53 L 01/04/24 04:03 68 18 126/64 01/04/24 02:41 36.7 C 67 18 146/87 H 96 O2 Del Method 01/04/24 11:39 Room Air 01/04/24 08:00 Room Air 01/04/24 07:40 Room Air 01/04/24 07:00 01/04/24 04:03 01/04/24 02:41 Room Air Laboratory Results BMP 01/04/24 06:36 Sodium 138 Potassium 3.6 Chloride 100 Carbon Dioxide 28 BUN 25 H Creatinine 0.77 Glucose 108 H Calcium 8.7
--- NOTE | 2024-01-04 12:58 | Discharge Summary ---
Date of Service January 04, 2024 Admission HPI Per Admitting Provider She is a 73-year-old female with significant past medical history of POTS, chronic low blood pressure, chronic pain, Edenilson-Danlos syndrome, history of DVT PE and also paroxysmal A-fib on anticoagulation hypothyroidism chronic anemia, BRANDIE, PTSD, history of gastric bypass and other medical issues as documented in the history apparently fell at [employer] while in the bathroom and complaining of bilateral shoulder pain. She also has swelling and more redness involving manage in the right lower extremity and does not have any fever and or chills. She has an injection of the back for the chronic back pain and her Coumadin has been on hold and that was pleased with Lovenox. She does not have any other complaints of chest pain, palpitation or shortness of breath. Denies any fever and chills. Denies any abdominal pain nausea and/or vomiting. She has noted to have high white count and x-rays of the shoulder did not show any fracture and she does have right lower leg extremity spreading cellulitis. She was admitted to medical telemetry unit for continuation of the care and she was started with intravenous ceftriaxone and daptomycin and continued Lovenox and Coumadin until her INR is therapeutic. Admission Exam Per Admitting Provider Physical Exam: Lying in bed and noted to have low blood pressure systolic around less than 100 Constitutional: well developed, well nourished, + ill appearing and + obese Eyes: PERRL, conjunctivae normal, anicteric sclerae ENMT: external ear and nose normal, oropharynx normal Neck: trachea midline, no thyromegaly Respiratory: no respiratory distress Auscultation: + diminished lung sounds and + crackles (Minimal crackles at the bases) Cardiovascular: Rate/Rhythm: regular rate and regular rhythm; not tachycardic Heart Sounds: normal S1 and normal S2; no murmur Extremities: + edema (Bilateral leg edema with redness involving the right lower extremity) Gastrointestinal (Abdomen): Inspection/Auscultation: normal bowel sounds; abdomen not distended Percussion/Palpation: abdomen soft; abdomen nontender Musculoskeletal: Movement of the shoulders the pain mostly the left side Skin: Skin is thin and fragile Neurologic: normal touch/pain/proprioception and moves all extremities; no focal motor deficits Lymphatic: no cervical or axillary lymphadenopathy Principal Diagnosis Mechanical fall Right leg cellulitis Chronic Shoulder pain Edenilson-Danlos syndrome Discharge Data Allergies Allergy/AdvReac Type Severity Reaction Status Date / Time ammonia Allergy Severe FACE, Verified 12/19/23 13:59 LIPS, TONGUE EDEMA buspirone Allergy Severe NEURO Verified 12/19/23 13:59 COMPLICATIONS duloxetine Allergy Intermediate RASH Verified 12/19/23 13:59 ITCHING adhesive Allergy Mild skin tears Verified 12/19/23 13:59 vancomycin Allergy Unknown [facility] Verified 12/19/23 13:59 MED LIST diphenhydramine AdvReac Intermediate RESTLESS Verified 12/19/23 13:59 LEGS gabapentin AdvReac Intermediate MUSCLE Verified 12/19/23 13:59 STIFFNESS lisinopril AdvReac Intermediate cough Verified 12/19/23 13:59 NSAIDS (Non-Steroidal AdvReac Unknown not Verified 12/19/23 13:59 Anti-Inflamma supposed to use-S/P GASTRIC BYPASS venlafaxine AdvReac Unknown AFFECTS Verified 12/19/23 13:59 LEGS Consultations 12/31/23 07:52 ED Decision to Admit Stat Procedures Performed Laboratory Results WBC 7.80 K/ul (4.8-10.8) 01/03/24 05:54 RBC 3.61 M/uL (4.20-5.40) L 01/03/24 05:54 Hgb 10.8 g/dl (12.0-16.0) L 01/03/24 05:54 Hct 33.5 % (37.0-47.0) L 01/03/24 05:54 MCV 92.8 fL (80.0-100.0) 01/03/24 05:54 MCH 29.9 pg (25.0-34.0) 01/03/24 05:54 MCHC 32.2 g/dL (32.0-36.0) 01/03/24 05:54 RDW Std Deviation 51.8 fL (36.4-46.3) H 01/03/24 05:54 RDW Coeff of Neftaly 15.1 % (11.5-14.5) H 01/03/24 05:54 Plt Count 162 K/uL (130-400) 01/03/24 05:54 MPV 10.4 fL (9.4-12.4) 01/03/24 05:54 Immature Gran % (Auto) 0.4 % 01/01/24 06:43 Neut % (Auto) 94.5 % 01/01/24 06:43 Lymph % (Auto) 2.1 % 01/01/24 06:43 [place]eman % (Auto) 2.8 % 01/01/24 06:43 Eos % (Auto) 0.1 % 01/01/24 06:43 Baso % (Auto) 0.1 % 01/01/24 06:43 Neut # (Auto) 12.31 K/uL (1.40-6.50) H 01/01/24 06:43 Lymph # (Auto) 0.28 K/uL (1.20-3.40) L 01/01/24 06:43 Hardeman # (Auto) 0.37 K/uL (0.11-0.59) 01/01/24 06:43 Eos # (Auto) 0.01 K/uL (0.00-0.50) 01/01/24 06:43 Baso # (Auto) 0.01 K/uL (0.00-0.20) 01/01/24 06:43 Immature Gran # (Auto) 0.05 K/uL (0.01-0.20) 01/01/24 06:43 PT 24.7 Seconds (9.0-12.0) H 01/04/24 06:36 INR 2.5 (0.9-1.1) H 01/04/24 06:36 Sodium 138 mmol/L (136-145) 01/04/24 06:36 Potassium 3.6 mmol/L (3.5-5.1) 01/04/24 06:36 Chloride 100 mmol/L (98-107) 01/04/24 06:36 Carbon Dioxide 28 mmol/L (21-32) 01/04/24 06:36 Anion Gap 10 (3-11) 01/04/24 06:36 BUN 25 mg/dl (6-23) H 01/04/24 06:36 Creatinine 0.77 mg/dl (0.6-1.2) 01/04/24 06:36 Est Cr Clr Drug Dosing 57.2 ml/min 01/04/24 06:36 Est GFR ( Amer) 88.8 ml/min 01/04/24 06:36 Est GFR (Non-Af Amer) 76.6 ml/min 01/04/24 06:36 BUN/Creatinine Ratio 32.5 (10-20) H 01/04/24 06:36 Glucose 108 mg/dl (70-99(Fasting)) H 01/04/24 06:36 Lactate 0.9 mmol/L (0.4-2.0) 12/31/23 06:36 Calcium 8.7 mg/dl (8.6-10.3) 01/04/24 06:36 Troponin I High Sens 10.8 pg/ml (0-14) 12/31/23 06:36 Procalcitonin 5.59 ng/ml (0-0.5) H 12/31/23 06:36 Urine Color Yellow 01/02/24 05:20 Urine Appearance Clear (Clear) 01/02/24 05:20 Urine pH 7.0 (4.5-7.5) 01/02/24 05:20 Ur Specific Evans 1.013 (1.000-1.030) 01/02/24 05:20 Urine Protein Trace (Negative) H 01/02/24 05:20 Urine Glucose (UA) Negative (Negative) 01/02/24 05:20 Urine Ketones Negative (Negative) 01/02/24 05:20 Urine Blood Negative (Negative) 01/02/24 05:20 Urine Nitrite Negative (Negative) 01/02/24 05:20 Urine Bilirubin Negative (Negative) 01/02/24 05:20 Urine Urobilinogen Negative (Negative) 01/02/24 05:20 Ur Leukocyte Esterase Negative (Negative) 01/02/24 05:20 Urine WBC (Auto) 0-5 /hpf (0-5) 01/02/24 05:20 Urine RBC (Auto) 0-2 /hpf (0-2) 01/02/24 05:20 U Hyaline Cast (Auto) 0-2 /lpf (0-2) 01/02/24 05:20 U Epithel Cells (Auto) 0-2 /hpf (0-2) 01/02/24 05:20 Urine Bacteria (Auto) None Seen (None Seen) 01/02/24 05:20 Nasal Screen MRSA (PCR) Negative (Negative) 12/31/23 Unknown Impressions Shoulder X-Ray 12/31/23 05:28 LEFT SHOULDER 3 VIEWS CLINICAL HISTORY: Left shoulder injury. FINDINGS: 3 views of the left shoulder are compared to study dated 06/26/2020. The skeletal structures are osteopenic. There is no radiographic evidence of fracture or dislocation. Moderate osteoarthritic change is seen at the glenohumeral articulation. There is productive degenerative change at the acromioclavicular joint. Superior subluxation of the humeral head suggests chronic rotator cuff injury. The overlying soft tissues are normal as imaged. The visualized left lung parenchyma appears clear. IMPRESSION: Osteopenia and arthritic change as above with no acute bony abnormality identified. Electronically signed by: Julian Sibley M.D. 12/31/2023 7:32 AM Hospital Course (1) Fall: Mechanical fall while going to the bathroom injuring both shoulders No head injury Complaining of bilateral shoulder pain due to fall usually uses walker/cane for ambulation Fall precautions Continue PT OT Plan to discharge to rehab facility today (2) Shoulder pain, acute: History of shoulder dislocation Shoulder x-ray did not show any fracture Pain control Slowly improved (3) Cellulitis of leg, right: H/O leg swelling and bilateral leg cellulitis -- Blood cultures negative to date Continue ceftriaxone, Dapto Transition IV antibiotics to cefdinir, doxycycline (4) Paroxysmal atrial fibrillation: H/O PE/DVT Rate is controlled Subtherapeutic INR on presentation Continue metoprolol INR 2.5 today Continue Coumadin Discontinue SQ Lovenox (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 History of bilateral shoulder dislocation and chronic pain involving the back (6) Chronic heart failure with preserved ejection fraction (HFpEF): continue Torsemide Monitor volume status (7) BRANDIE (obstructive sleep apnea): stable (8) Chronic hypotension: on midodrine monitor Chronic back pain Recent injection at the back and her Coumadin was on hold Other significant medical conditions as documented in medical history stable DVT Px: Coumadin CODE STATUS Full Code Disposition Rehab Total Time Total Time Spent Total Time Spent (In Minutes): 55 minutes Discharge Plan Discharge Items Patient Disposition: Transfer Inpatient Rehab Fac Reason For Visit: LEFT SHOULDER INJURY, RT LEG CELLULITIS Discharge Diagnosis: Mechanical fall Right leg cellulitis Chronic Shoulder pain Edenilson-Danlos syndrome Condition on Discharge: Good Activity: Resume your previous activity Exercise/Sports: Gradually increase as tolerated Non-emergency contact: Primary Care Provider Call non-emergency contact if: you have any medication questions, your symptoms worsen, your pain is concerning for you and you have a fever Follow-up/Referrals: Kaylah [place] [Primary Care Provider] - Diet: Heart Healthy Addtl Attending Provider Instructions: Follow-up with your physician in 1 week upon discharge from rehab facility Follow-up with your orthopedic surgeon for further evaluation of your shoulder pain as recommended --Your INR is 2.5 on 01/04/2024. Obtain PT/INR in 2 days at rehab facility for further adjustment of Coumadin dose as needed. -- Complete the antibiotic course (cefdinir, doxycycline) as prescribed. -- If final blood cultures are pending at the time of discharge. Follow-up with your physician for results. Seek immediate medical attention if your symptoms reoccur or worsen Please take all medications as instructed on discharge list below. Please call if you have any questions or problems. You can reach a [facility] hospitalist on duty at [facility] 24 hours a day by calling [phone] Pending Studies at Discharge: No Stand-Alone Forms: My [facility] Skilled Items Patient informed of condition?: Yes DNR: No Discharge Level of Care: Acute rehab Communicable Disease: No Discharge Prognosis: Stable Lines: None Urinary Catheter: No Medications and DC Order Prescriptions: New cefdinir 300 mg Capsule 300 mg PO BID Qty: 10 0RF Rx Instructions: Start taking from 01/05/2024 doxycycline hyclate 100 mg Capsule 100 mg PO BID 5 Days Qty: 10 0RF Rx Instructions: Start taking from 01/04/2024 Continued ondansetron HCl 4 mg tablet 4 mg PO Q8H PRN (Reason: Nausea And Vomiting) atorvastatin 20 mg tablet 20 mg PO .@0800 levothyroxine 50 mcg tablet 50 mcg PO .@0800 montelukast 10 mg tablet 10 mg PO .@1999 hydroxyzine HCl 25 mg Tablet 25 mg PO QID PRN (Reason: ANXIETY/ITCHING) carbidopa-levodopa 25-100 mg Tablet 1 tab PO .0800,1200,1600,1999 fluticasone propionate [Flonase Allergy Relief] 50 mcg/actuation [place],Suspension 2 spray INTRANASAL .@799,1999 buprenorphine 15 mcg/hour patch weekly 1 patch topical WK Rx Instructions: THURSDAYS Saccharomyces boulardii [Florastor] 250 mg Capsule 250 mg PO .@0800,1999 ergocalciferol (vitamin D2) 25,000 unit Capsule 50,000 unit PO .WED@0800 Patient Comments: sat torsemide 20 mg Tablet 40 mg PO .@0800 ropinirole 5 mg Tablet 2.5 mg PO .@0800,1500,2000 omeprazole 20 mg Tablet,Delayed Release (Dr/Ec) 40 mg PO .@0800 potassium chloride 20 mEq packet 20 meq PO DAILY Qty: 30 0RF Rx Instructions: cannot tolerate pill loperamide 2 mg Tablet 2 mg PO Q6H PRN (Reason: Diarrhea) acetaminophen [Tylenol Extra Strength] 500 mg Tablet 1,000 mg PO Q8H PRN (Reason: TEMP >100F/PAIN) mirtazapine 30 mg Tablet 30 mg PO .@1999 midodrine 2.5 mg Tablet 5 mg PO TID@0800,1300,1800 Qty: 0 0RF ferrous sulfate 325 mg (65 mg iron) Tablet,Delayed Release (Dr/Ec) 325 mg PO QAM Qty: 0 0RF hydrocortisone [Proctosol HC] 2.5 % Cream With Perineal Applicator 1 applic EXT Q4H PRNQty: 0 0RF metoprolol tartrate 25 mg Tablet 25 mg PO TID Qty: 0 0RF loperamide [Anti-Diarrheal (loperamide)] 2 mg Capsule 2 mg PO Q6H PRN (Reason: Diarrhea) warfarin 5 mg tablet 5 mg PO PM Rx Instructions: SUSPENDED THRU DEC 16, 2023 docusate sodium 100 mg Capsule 100 mg PO BID oxycodone 5 mg Tablet 5 mg PO Q4H PRN (Reason: Pain) PreserVision AREDS-2 250-90-40-1 mg Capsule 1 tab PO BID Discontinued enoxaparin 80 mg/0.8 mL Syringe 80 mg SUBCUT Q12H Discharge Orders: Discharge Order (Routine); Ordered 01/04/24 Ordered By: Yosi Santana Admission Data Admit Date/Time: 12/31/23 08:17 Attending Provider: Yosi Santana Admit Provider: Radha South Primary Care Provider: Kaylah [place] Other Providers: Radha South; [facility]
[2024-01-04] MEDS: ONDANSETRON INJ 2 MG/ML 2 ML VIAL IV PRN (13:15)
[2024-01-04] MEDS: WARFARIN SOD 4 MG TAB PO SCH (16:02)
[2024-01-05 07:21] LABS: BUN Creatinine Ratio 30.9 (10-20); Calcium 9.1 mg/dl (8.6-10.3); Creatinine Clr Calc Pharmacy 46.9 ml/min; Est GFR (African American) 69.8 ml/min; Est GFR (Non-African American) 60.2 ml/min; Potassium 3.3 mmol/L (3.5-5.1)
[2024-01-05 07:46] LABS: INR 2.7 (0.9-1.1); Prothrombin Time 26.4 Seconds (9.0-12.0)
[2024-01-05] MEDS: CEFDINIR 300 MG CAP PO SCH (07:46)
--- NOTE | 2024-01-05 08:24 | Hospitalist Progress Note ---
Date of Service January 05, 2024 Assessment & Plan (1) Fall: (2) Shoulder pain, acute: (3) Cellulitis of leg, right: (4) Paroxysmal atrial fibrillation: (5) Edenilson-Danlos syndrome: (6) Chronic heart failure with preserved ejection fraction (HFpEF): (7) BRANDIE (obstructive sleep apnea): (8) Chronic hypotension: Plan Mechanical fall while going to the bathroom injuring both shoulders No head injury Complaining of bilateral shoulder pain due to fall usually uses walker/cane for ambulation Fall precautions Continue PT OT Rehab today Shoulder pain, acute: History of shoulder dislocation Shoulder x-ray did not show any fracture Pain control Slowly improved Advised to follow-up with her surgeon on discharge Cellulitis of leg, right: H/O leg swelling and bilateral leg cellulitis -- Blood cultures negative to date Continue ceftriaxone, Dapto Transition IV antibiotics to cefdinir, doxycycline Clinically improved Paroxysmal atrial fibrillation: H/O PE/DVT Rate is controlled Subtherapeutic INR on presentation Continue metoprolol INR 2.7 today Continue Coumadin Discontinued SQ Lovenox 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 History of bilateral shoulder dislocation and chronic pain involving the back Chronic heart failure with preserved ejection fraction (HFpEF): continue Torsemide Monitor volume status BRANDIE (obstructive sleep apnea): stable Chronic hypotension: on midodrine monitor Chronic back pain Recent injection at the back and her Coumadin was on hold Other significant medical conditions as documented in medical history stable DVT Px: Coumadin CODE STATUS Full Code Disposition Rehab today Admission and Anticipated Discharge Date Admission Date: December 31, 2023 Subjective Patient is seen and examined at bedside Offers no new complaints States feeling well today Shoulder pain better leg pain resolved Denies any chest pain, dyspnea, nausea, vomiting, abdominal pain Plan to discharge to rehab facility today Review of Systems Review of Systems: All systems reviewed & are unremarkable except as noted in Subjective Physical Exam Physical Exam: Physical Exam: Vitals signs as noted above General Appearance:Obese, no apparent distress, chronic ill appearing Head: normocephalic, Atraumatic Eyes: normal inspection, EOMI Neck: supple, Trachea midline Respiratory/Chest: Decreased breath sounds, CTA, No accessory muscle use Cardiovascular: S1, S2, + murmur Abdomen/GI:Soft, Non tender, Bowel sounds present Extremities/Musculoskeletal:normal inspection, B/L LE edema, +erythema Neurologic/Psych:AAOX3, grossly no focal neurological deficits Skin: normal color, warm Results & Data Results & Data Vital Signs (Past 12 Hours) Vital Signs Temp Pulse Pulse Resp BP Pulse Ox O2 Del Method 01/05/24 08:15 36.3 C L 80 18 116/73 93 Room Air 01/05/24 07:45 Room Air 01/05/24 07:00 81 01/05/24 03:27 36.5 C 89 18 112/82 97 Room Air 01/05/24 00:02 36.9 C 78 18 129/94 98 Room Air 01/04/24 21:50 81 Laboratory Results [facility] 01/05/24 05:58 Sodium 139 Potassium 3.3 L Chloride 100 Carbon Dioxide 30 BUN 29 H Creatinine 0.94 Glucose 121 H Calcium 9.1
[2024-01-05] MEDS: POTASSIUM CHLORIDE CRTAB 20 MEQ TABCR PO ONE (09:16)
--- NOTE | 2024-01-05 12:37 | Discharge Summary ---
Date of Service January 05, 2024 Admission HPI Per Admitting Provider She is a 73-year-old female with significant past medical history of POTS, chronic low blood pressure, chronic pain, Edenilson-Danlos syndrome, history of DVT PE and also paroxysmal A-fib on anticoagulation hypothyroidism chronic anemia, BRANDIE, PTSD, history of gastric bypass and other medical issues as documented in the history apparently fell at [facility] [employer] while in the bathroom and complaining of bilateral shoulder pain. She also has swelling and more redness involving manage in the right lower extremity and does not have any fever and or chills. She has an injection of the back for the chronic back pain and her Coumadin has been on hold and that was pleased with Lovenox. She does not have any other complaints of chest pain, palpitation or shortness of breath. Denies any fever and chills. Denies any abdominal pain nausea and/or vomiting. She has noted to have high white count and x-rays of the shoulder did not show any fracture and she does have right lower leg extremity spreading cellulitis. She was admitted to medical telemetry unit for continuation of the care and she was started with intravenous ceftriaxone and daptomycin and continued Lovenox and Coumadin until her INR is therapeutic. Admission Exam Per Admitting Provider Physical Exam: Lying in bed and noted to have low blood pressure systolic around less than 100 Constitutional: well developed, well nourished, + ill appearing and + obese Eyes: PERRL, conjunctivae normal, anicteric sclerae ENMT: external ear and nose normal, oropharynx normal Neck: trachea midline, no thyromegaly Respiratory: no respiratory distress Auscultation: + diminished lung sounds and + crackles (Minimal crackles at the bases) Cardiovascular: Rate/Rhythm: regular rate and regular rhythm; not tachycardic Heart Sounds: normal S1 and normal S2; no murmur Extremities: + edema (Bilateral leg edema with redness involving the right lower extremity) Gastrointestinal (Abdomen): Inspection/Auscultation: normal bowel sounds; abdomen not distended Percussion/Palpation: abdomen soft; abdomen nontender Musculoskeletal: Movement of the shoulders the pain mostly the left side Skin: Skin is thin and fragile Neurologic: normal touch/pain/proprioception and moves all extremities; no focal motor deficits Lymphatic: no cervical or axillary lymphadenopathy Principal Diagnosis Mechanical fall Right leg cellulitis Chronic Shoulder pain Edenilson-Danlos syndrome Discharge Data Allergies Allergy/AdvReac Type Severity Reaction Status Date / Time ammonia Allergy Severe FACE, Verified 12/19/23 13:59 LIPS, TONGUE EDEMA buspirone Allergy Severe NEURO Verified 12/19/23 13:59 COMPLICATIONS duloxetine Allergy Intermediate RASH Verified 12/19/23 13:59 ITCHING adhesive Allergy Mild skin tears Verified 12/19/23 13:59 vancomycin Allergy Unknown ON [facility] Verified 12/19/23 13:59 MED LIST diphenhydramine AdvReac Intermediate RESTLESS Verified 12/19/23 13:59 LEGS gabapentin AdvReac Intermediate MUSCLE Verified 12/19/23 13:59 STIFFNESS lisinopril AdvReac Intermediate cough Verified 12/19/23 13:59 NSAIDS (Non-Steroidal AdvReac Unknown not Verified 12/19/23 13:59 Anti-Inflamma supposed to use-S/P GASTRIC BYPASS venlafaxine AdvReac Unknown AFFECTS Verified 12/19/23 13:59 LEGS Consultations 12/31/23 07:52 ED Decision to Admit Stat Procedures Performed Laboratory Results WBC 7.80 K/ul (4.8-10.8) 01/03/24 05:54 RBC 3.61 M/uL (4.20-5.40) L 01/03/24 05:54 Hgb 10.8 g/dl (12.0-16.0) L 01/03/24 05:54 Hct 33.5 % (37.0-47.0) L 01/03/24 05:54 MCV 92.8 fL (80.0-100.0) 01/03/24 05:54 MCH 29.9 pg (25.0-34.0) 01/03/24 05:54 MCHC 32.2 g/dL (32.0-36.0) 01/03/24 05:54 RDW Std Deviation 51.8 fL (36.4-46.3) H 01/03/24 05:54 RDW Coeff of Neftaly 15.1 % (11.5-14.5) H 01/03/24 05:54 Plt Count 162 K/uL (130-400) 01/03/24 05:54 MPV 10.4 fL (9.4-12.4) 01/03/24 05:54 Immature Gran % (Auto) 0.4 % 01/01/24 06:43 Neut % (Auto) 94.5 % 01/01/24 06:43 Lymph % (Auto) 2.1 % 01/01/24 06:43 [place] % (Auto) 2.8 % 01/01/24 06:43 Eos % (Auto) 0.1 % 01/01/24 06:43 Baso % (Auto) 0.1 % 01/01/24 06:43 Neut # (Auto) 12.31 K/uL (1.40-6.50) H 01/01/24 06:43 Lymph # (Auto) 0.28 K/uL (1.20-3.40) L 01/01/24 06:43 [place] # (Auto) 0.37 K/uL (0.11-0.59) 01/01/24 06:43 Eos # (Auto) 0.01 K/uL (0.00-0.50) 01/01/24 06:43 Baso # (Auto) 0.01 K/uL (0.00-0.20) 01/01/24 06:43 Immature Gran # (Auto) 0.05 K/uL (0.01-0.20) 01/01/24 06:43 PT 26.4 Seconds (9.0-12.0) H 01/05/24 05:58 INR 2.7 (0.9-1.1) H 01/05/24 05:58 Sodium 139 mmol/L (136-145) 01/05/24 05:58 Potassium 3.3 mmol/L (3.5-5.1) L 01/05/24 05:58 Chloride 100 mmol/L (98-107) 01/05/24 05:58 Carbon Dioxide 30 mmol/L (21-32) 01/05/24 05:58 Anion Gap 9 (3-11) 01/05/24 05:58 BUN 29 mg/dl (6-23) H 01/05/24 05:58 Creatinine 0.94 mg/dl (0.6-1.2) 01/05/24 05:58 Est Cr Clr Drug Dosing 46.9 ml/min 01/05/24 05:58 Est GFR ( Amer) 69.8 ml/min 01/05/24 05:58 Est GFR (Non-Af Amer) 60.2 ml/min 01/05/24 05:58 BUN/Creatinine Ratio 30.9 (10-20) H 01/05/24 05:58 Glucose 121 mg/dl (70-99(Fasting)) H 01/05/24 05:58 Lactate 0.9 mmol/L (0.4-2.0) 12/31/23 06:36 Calcium 9.1 mg/dl (8.6-10.3) 01/05/24 05:58 Troponin I High Sens 10.8 pg/ml (0-14) 12/31/23 06:36 Procalcitonin 5.59 ng/ml (0-0.5) H 12/31/23 06:36 Urine Color Yellow 01/02/24 05:20 Urine Appearance Clear (Clear) 01/02/24 05:20 Urine pH 7.0 (4.5-7.5) 01/02/24 05:20 Ur Specific [place] 1.013 (1.000-1.030) 01/02/24 05:20 Urine Protein Trace (Negative) H 01/02/24 05:20 Urine Glucose (UA) Negative (Negative) 01/02/24 05:20 Urine Ketones Negative (Negative) 01/02/24 05:20 Urine Blood Negative (Negative) 01/02/24 05:20 Urine Nitrite Negative (Negative) 01/02/24 05:20 Urine Bilirubin Negative (Negative) 01/02/24 05:20 Urine Urobilinogen Negative (Negative) 01/02/24 05:20 Ur Leukocyte Esterase Negative (Negative) 01/02/24 05:20 Urine WBC (Auto) 0-5 /hpf (0-5) 01/02/24 05:20 Urine RBC (Auto) 0-2 /hpf (0-2) 01/02/24 05:20 U Hyaline Cast (Auto) 0-2 /lpf (0-2) 01/02/24 05:20 U Epithel Cells (Auto) 0-2 /hpf (0-2) 01/02/24 05:20 Urine Bacteria (Auto) None Seen (None Seen) 01/02/24 05:20 Nasal Screen MRSA (PCR) Negative (Negative) 12/31/23 Unknown Impressions Shoulder X-Ray 12/31/23 05:28 LEFT SHOULDER 3 VIEWS CLINICAL HISTORY: Left shoulder injury. FINDINGS: 3 views of the left shoulder are compared to study dated 06/26/2020. The skeletal structures are osteopenic. There is no radiographic evidence of fracture or dislocation. Moderate osteoarthritic change is seen at the glenohumeral articulation. There is productive degenerative change at the acromioclavicular joint. Superior subluxation of the humeral head suggests chronic rotator cuff injury. The overlying soft tissues are normal as imaged. The visualized left lung parenchyma appears clear. IMPRESSION: Osteopenia and arthritic change as above with no acute bony abnormality identified. Electronically signed by: Julian Sibley M.D. 12/31/2023 7:32 AM Hospital Course (1) Fall: (2) Shoulder pain, acute: (3) Cellulitis of leg, right: (4) Paroxysmal atrial fibrillation: (5) Edenilson-Danlos syndrome: (6) Chronic heart failure with preserved ejection fraction (HFpEF): (7) BRANDIE (obstructive sleep apnea): (8) Chronic hypotension: Plan Mechanical fall while going to the bathroom injuring both shoulders No head injury Complaining of bilateral shoulder pain due to fall usually uses walker/cane for ambulation Fall precautions Continue PT OT Rehab today Shoulder pain, acute: History of shoulder dislocation Shoulder x-ray did not show any fracture Pain control Slowly improved Advised to follow-up with her surgeon on discharge Cellulitis of leg, right: H/O leg swelling and bilateral leg cellulitis -- Blood cultures negative to date Continue ceftriaxone, Dapto Transition IV antibiotics to cefdinir, doxycycline Clinically improved Paroxysmal atrial fibrillation: H/O PE/DVT Rate is controlled Subtherapeutic INR on presentation Continue metoprolol INR 2.7 today Continue Coumadin Discontinued SQ Lovenox 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 History of bilateral shoulder dislocation and chronic pain involving the back Chronic heart failure with preserved ejection fraction (HFpEF): continue Torsemide Monitor volume status BRANDIE (obstructive sleep apnea): stable Chronic hypotension: on midodrine monitor Chronic back pain Recent injection at the back and her Coumadin was on hold Other significant medical conditions as documented in medical history stable DVT Px: Coumadin CODE STATUS Full Code Disposition Rehab today Total Time Total Time Spent Total Time Spent (In Minutes): 63 minutes Discharge Plan Discharge Items Patient Disposition: Transfer Inpatient Rehab Fac Reason For Visit: LEFT SHOULDER INJURY, RT LEG CELLULITIS Discharge Diagnosis: Mechanical fall Right leg cellulitis Chronic Shoulder pain Edenilson-Danlos syndrome Condition on Discharge: Good Activity: Resume your previous activity Exercise/Sports: Gradually increase as tolerated Non-emergency contact: Primary Care Provider Call non-emergency contact if: you have any medication questions, your symptoms worsen, your pain is concerning for you and you have a fever Follow-up/Referrals: Kaylah AgeeFarrell [Primary Care Provider] - Diet: Heart Healthy Addtl Attending Provider Instructions: Follow-up with your physician in 1 week upon discharge from rehab facility Follow-up with your orthopedic surgeon for further evaluation of your shoulder pain as recommended --Your INR is 2.7 on 01/05/2024. Obtain PT/INR in 2 days at rehab facility for further adjustment of Coumadin dose as needed. -- Complete the antibiotic course (cefdinir, doxycycline) as prescribed. -- If final blood cultures are pending at the time of discharge. Follow-up with your physician for results. Seek immediate medical attention if your symptoms reoccur or worsen Please take all medications as instructed on discharge list below. Please call if you have any questions or problems. You can reach a [facility] hospitalist on duty at [facility] 24 hours a day by calling [phone] Pending Studies at Discharge: No Stand-Alone Forms: My [facility] Skilled Items Patient informed of condition?: Yes DNR: No Discharge Level of Care: Acute rehab Communicable Disease: No Discharge Prognosis: Stable Lines: None Urinary Catheter: No Medications and DC Order Prescriptions: New cefdinir 300 mg Capsule 300 mg PO BID Qty: 10 0RF Rx Instructions: Start taking from 01/05/2024 doxycycline hyclate 100 mg Capsule 100 mg PO BID 5 Days Qty: 10 0RF Rx Instructions: Start taking from 01/04/2024 Continued ondansetron HCl 4 mg tablet 4 mg PO Q8H PRN (Reason: Nausea And Vomiting) atorvastatin 20 mg tablet 20 mg PO .@0800 levothyroxine 50 mcg tablet 50 mcg PO .@0800 montelukast 10 mg tablet 10 mg PO .@2000 hydroxyzine HCl 25 mg Tablet 25 mg PO QID PRN (Reason: ANXIETY/ITCHING) carbidopa-levodopa 25-100 mg Tablet 1 tab PO .0800,1200,1600,1999 fluticasone propionate [Flonase Allergy Relief] 50 mcg/actuation [place],Suspension 2 spray INTRANASAL .@799,1999 buprenorphine 15 mcg/hour patch weekly 1 patch topical WK Rx Instructions: THURSDAYS Saccharomyces boulardii [Florastor] 250 mg Capsule 250 mg PO .@799,1999 ergocalciferol (vitamin D2) 25,000 unit Capsule 50,000 unit PO .WED@0800 Patient Comments: sat torsemide 20 mg Tablet 40 mg PO .@08 ropinirole 5 mg Tablet 2.5 mg PO .@0800,1500,1999 omeprazole 20 mg Tablet,Delayed Release (Dr/Ec) 40 mg PO .@0800 potassium chloride 20 mEq packet 20 meq PO DAILY Qty: 30 0RF Rx Instructions: cannot tolerate pill loperamide 2 mg Tablet 2 mg PO Q6H PRN (Reason: Diarrhea) acetaminophen [Tylenol Extra Strength] 500 mg Tablet 1,000 mg PO Q8H PRN (Reason: TEMP >100F/PAIN) mirtazapine 30 mg Tablet 30 mg PO .@1999 midodrine 2.5 mg Tablet 5 mg PO TID@0800,1300,1800 Qty: 0 0RF ferrous sulfate 325 mg (65 mg iron) Tablet,Delayed Release (Dr/Ec) 325 mg PO QAM Qty: 0 0RF hydrocortisone [Proctosol HC] 2.5 % Cream With Perineal Applicator 1 applic EXT Q4H PRNQty: 0 0RF metoprolol tartrate 25 mg Tablet 25 mg PO TID Qty: 0 0RF loperamide [Anti-Diarrheal (loperamide)] 2 mg Capsule 2 mg PO Q6H PRN (Reason: Diarrhea) warfarin 5 mg tablet 5 mg PO PM Rx Instructions: SUSPENDED THRU DEC 16, 2023 docusate sodium 100 mg Capsule 100 mg PO BID oxycodone 5 mg Tablet 5 mg PO Q4H PRN (Reason: Pain) PreserVision AREDS-2 250-90-40-1 mg Capsule 1 tab PO BID Discontinued enoxaparin 80 mg/0.8 mL Syringe 80 mg SUBCUT Q12H Discharge Orders: Discharge Order (Routine); Ordered 01/05/24 Ordered By: Yosi Santana Admission Data Admit Date/Time: 12/31/23 08:17 Attending Provider: Yosi Santana Admit Provider: Radha South Primary Care Provider: Kaylah AgeeFarrell Other Providers: Radha South; [facility]
== END 2024-01-05 14:05 | DRG 603 ==
LOC: ED 05:10 → SUATTDRO 08:17 → EDINP 08:17 → 2N 18:28

== ENCOUNTER 2024-01-22 10:20 | Inpatient (IN) ==
--- NOTE | 2024-01-22 10:37 | Emergency Department Note ---
History of Present Illness General Chief complaint: Leg Weakness, Bilateral Time Seen by Provider: 01/22/24 10:35 History of Present Illness NAME: GRETTA PRAJAPATI AGE: 73 SEX: F : 1950 ARRIVES VIA: Ambulance INFORMANT: Patient ED PROVIDER(S): ASCENCION Peter, Eugenio Campbell MD The patient is a pleasant 73-year-old female who arrives to the emergency department for evaluation of BLE leg weakness. The patient reports a sensation of "Jell-O legs" when attempting to get out of her vehicle for a hospital discharge follow-up appointment. She reports she was discharged 2 weeks ago [facility] for weakness after a hospital admission for LE weakness with back pain and UTI. Today she reports her legs were weak and gave out while exiting the vehicle. She reports she slid down onto her bottom from the seat. She does reports slight chest tightness with no radiation. She reports also BLE edema improving over the last week. She denies injury from the event, no head strike occurred. She is alert and oriented, her vital signs are stable. Home Medications Medication Instructions Recorded Confirmed Type atorvastatin 20 mg tablet 20 mg PO .@79901/09/22 01/22/24 History buprenorphine 15 mcg/hour weekly 1 patch topical WK 01/09/22 01/22/24 History transdermal patch carbidopa 25 mg-levodopa 100 mg 1 tab PO .0800,1200,1600,199901/09/22 01/22/24 History tablet fluticasone propionate 50 2 spray intranasal .@799,199901/09/22 01/22/24 History mcg/actuation nasal spray,suspension (Flonase Allergy Relief) hydroxyzine HCl 25 mg tablet 25 mg PO QID PRN ANXIETY/ITCHING 01/09/22 01/22/24 History levothyroxine 50 mcg tablet 50 mcg PO .@79901/09/22 01/22/24 History montelukast 10 mg tablet 10 mg PO .@199901/09/22 01/22/24 History Saccharomyces boulardii 250 mg 250 mg PO .@799,199910/03/22 01/22/24 History capsule (Florastor) acetaminophen 500 mg tablet 1,000 mg PO Q8H PRN TEMP >100F/PAIN 12/10/22 01/22/24 History (Tylenol Extra Strength) loperamide 2 mg tablet 2 mg PO Q6H PRN Diarrhea 12/10/22 01/22/24 History mirtazapine 30 mg tablet 30 mg PO .@199912/10/22 01/22/24 History ergocalciferol (vitamin D2) 25,000 50,000 unit PO .WED@0800 03/07/23 01/22/24 History unit capsule omeprazole 20 mg tablet,delayed 40 mg PO .@0807/29/23 01/22/24 History release ropinirole 5 mg tablet 2.5 mg PO .@0800,1500,199907/29/23 01/22/24 History torsemide 20 mg tablet 40 mg PO .@0807/29/23 01/22/24 History potassium chloride 20 mEq oral 20 meq PO DAILY #30 ea 07/31/23 01/22/24 Rx packet ferrous sulfate 325 mg (65 mg 325 mg PO QAM #0 tabs 11/09/23 01/22/24 Rx iron) tablet,delayed release hydrocortisone 2.5 % topical cream 1 applic EXT Q4H PRN #0 grams 11/09/23 01/22/24 Rx with perineal applicator (Proctosol HC) metoprolol tartrate 25 mg tablet 25 mg PO TID #0 tabs 11/09/23 01/22/24 Rx midodrine 2.5 mg tablet 5 mg (2 x 2.5 mg) PO 11/09/23 01/22/24 Rx TID@0800,1300,1800 #0 tabs ondansetron HCl 4 mg tablet 4 mg PO Q8H PRN Nausea And Vomiting 12/19/23 01/22/24 History docusate sodium 100 mg capsule 100 mg PO BID 12/31/23 01/22/24 History loperamide 2 mg capsule 2 mg PO Q6H PRN Diarrhea 12/31/23 01/22/24 History (Anti-Diarrheal (loperamide)) oxycodone 5 mg tablet 5 mg PO Q4H PRN Pain 12/31/23 01/22/24 History vit C 250 mg-vit E 90 mg-zinc 40 1 tab PO BID 12/31/23 01/22/24 History mg-copper 1 [id number] capsule (PreserVision AREDS-2) warfarin 5 mg tablet 5 mg PO PM 12/31/23 01/22/24 History enoxaparin 80 mg/0.8 mL 80 mg subcut DIRECTED 01/22/24 01/22/24 History subcutaneous syringe guaifenesin 600 mg tablet, 600 mg PO DIRECTED 01/22/24 01/22/24 History extended release 12 hr Allergies Allergy/AdvReac Type Severity Reaction Status Date / Time ammonia Allergy Severe FACE, Verified 12/19/23 13:59 LIPS, TONGUE EDEMA buspirone Allergy Severe NEURO Verified 12/19/23 13:59 COMPLICATIONS duloxetine Allergy Intermediate RASH Verified 12/19/23 13:59 ITCHING adhesive Allergy Mild skin tears Verified 12/19/23 13:59 vancomycin Allergy Unknown ON [facility] Verified 12/19/23 13:59 MED LIST diphenhydramine AdvReac Intermediate RESTLESS Verified 12/19/23 13:59 LEGS gabapentin AdvReac Intermediate MUSCLE Verified 12/19/23 13:59 STIFFNESS lisinopril AdvReac Intermediate cough Verified 12/19/23 13:59 NSAIDS (Non-Steroidal AdvReac Unknown not Verified 12/19/23 13:59 Anti-Inflamma supposed to use-S/P GASTRIC BYPASS venlafaxine AdvReac Unknown AFFECTS Verified 12/19/23 13:59 LEGS Past Med/Surg History Problem List (Updated 01/26/24 @ 18:01 by ASCENCION Garcia) Lumbar back pain (Acute) UTI due to extended-spectrum beta lactamase (ESBL) producing Escherichia coli Hypophosphatemia Hypomagnesemia Stenosis, spinal, lumbar Disc degeneration, lumbar Nontraumatic epidural hematoma Chronic shoulder pain Nontraumatic epidural hematoma Bilateral leg weakness Acute pain of both shoulders (Acute) Shoulder pain, acute Preoperative cardiovascular examination Paroxysmal atrial fibrillation Cellulitis (Acute) Leukocytosis (Acute) Sepsis (Acute) BRANDIE (obstructive sleep apnea) Chronic hypotension Elevated troponin (Acute) Tachycardia Edenilson-Danlos syndrome Hematoma of oral cavity Bleeding gums Elevated INR (Acute) Infected tooth FPC (current) use of anticoagulants (Acute) Sleep apnea intermittently able to tolerate CPAP Back problem Heart disease Bronchitis Arthritis Dislocation closed, shoulder Chronic heart failure with preserved ejection fraction (HFpEF) Recurrent falls Encounter for pre-operative examination Thoracic aortic aneurysm (Acute) Paroxysmal SVT (supraventricular tachycardia) Cellulitis of right foot Ambulatory dysfunction (Acute) Arthritis of foot Cellulitis of foot, right (Acute) Sepsis Left leg pain (Acute) Edema (Acute) Cellulitis (Acute) Leukocytosis (Acute) Cellulitis of left leg Traumatic ecchymosis of left lower leg DVT prophylaxis Chronic pain (Acute) Obesity 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 use of anticoagulant therapy (Acute) Cellulitis of leg, right (Acute) Fall (Acute) Rhabdomyolysis (Acute) JAEL (acute kidney injury) (Acute) Acute hypokalemia (Acute) Contusion of multiple sites (Acute) Acute UTI (Acute) Adult failure to thrive (Acute) COVID-19 Unable to care for self Bilateral lower leg cellulitis (Acute) Leukocytosis (Acute) Generalized weakness (Acute) Sepsis Shoulder subluxation, right (Acute) Cellulitis of lower extremity Dislocation of right shoulder joint Leg swelling (Acute) Hypokalemia (Acute) Bilateral leg pain (Acute) Bacteremia (Acute) Chronic pain syndrome (Acute) Lymphedema (Acute) Diverticulitis Diverticular disease of intestine with perforation and abscess Fever (Acute) Acute UTI (urinary tract infection) (Acute) Sepsis (Acute) Anemia Acute exacerbation of chronic low back pain Opioid dependence Fibromyalgia History of DVT (deep vein thrombosis) chronic anticoagulation Protein C deficiency Peripheral neuropathy GERD (gastroesophageal reflux disease) Gastroparesis Asthma uses PRN INH 3-4 x wk Hypothyroidism Restless leg syndrome Edenilson-Danlos syndrome (Acute) ISAC (generalized anxiety disorder) Pulmonary embolism 07/2018 - treated w/ lovenox - unk etiology Medical History Hx of blood clots Thyroid disease Skin cancer Head injury Parkinson disease Acute kidney injury Abdominal hernia Coagulopathy Hypokalemia Weakness Dysphagia History of colon polyps Difficult intravenous access History of intestinal obstruction Bulging of intervertebral disc Osteoporosis Osteoarthritis Renal cyst History of colon polyps Thyroid nodule Hearing deficit ADHD Hyperlipidemia Claustrophobia Thoracic aortic aneurysm follows w/ Dr. Arredondo - evaluated within last 6 mo Surgical History History of incision and drainage (11/04/23) Facial Incision and Drainage and removal of multiple teeth(Not Applicable) - Raphael Mcqueen, DMD Hx of melanoma excision shoulder Self extubation attempted post gastric bypass History of laparotomy History of left knee replacement History of intestinal surgery History of right knee joint replacement History of arthroscopy of left knee History of abdominoplasty + hernia repair History of bilateral breast reduction surgery History of cholecystectomy History of tonsillectomy History of gastric bypass History of esophagogastroduodenoscopy (EGD) History of colonoscopy 2019 Status post biopsy of thyroid gland benign Family History Uncle Stomach cancer Cancer Family/Other Breast cancer Grandfather Cancer Mother Heart disease Hypertension Stroke Grandmother Heart disease Stroke Other No family history of adverse response to anesthesia No pertinent family history in first degree relatives Social History Smoking Status: Never smoker Second Hand Exposure: Yes; Do You Dip or Chew Tobacco: No; Hx Alcohol Use: No Hx Substance Use: No Preferred Language: Armenian Communication Ability: Effective Communication Ability Comment: pt is obtunded Visual Impairment: Limited Hearing Ability: Normal [facility] Required: No Beliefs That Will Affect Care: None marital status: Single Current Living Situation: Half-Way Current Living Situation Comment: [facility], [place] current occupational status: retired How many Children do You have: 0 Feels Safe at Home: Yes Diet: regular during the past year weight has: remained stable Assistive Devices: Walker Physical Exam VITALS: Vitals are noted on the nurse's note and reviewed by myself. Vital signs stable. GENERAL: 73-year-old female, in no acute distress, nondiaphoretic, well- developed well-nourished. SKIN: BLE edema present, no weeping, no cellulitis. HEAD: Normocephalic atraumatic. EYES: Pupils equal round and reactive to light and accommodation. Conjunctivae without injection, sclerae without icterus. Extraocular movements intact. MOUTH: Mucous membranes moist. Pharynx without erythema or exudate. Uvula midline. Airway patent. Tongue does not deviate. NECK: Supple without nuchal rigidity. No lymphadenopathy. Cervical spine is nontender. No JVD. HEART: Regular rate and rhythm without murmurs gallops or rubs. LUNGS: Clear to auscultation bilaterally without wheezes, rales or rhonchi. No retractions or accessory muscle use. ABDOMEN: Positive bowel sounds x 4. Soft, nontender, without masses or organomegaly. Kim sign negative. No guarding or rebound tenderness. MUSCULOSKELETAL: No muscle atrophy, erythema, or edema noted. Weakness in BLE 3/5. TTP lumbar spinous process. NEURO: Patient was alert and oriented to person place and time. No focal neurological deficits. Course Administered Medications Atorvastatin Calcium (Atorvastatin 20 Mg Tab) 20 mg PO DAILY@0800 [facility] Stop: 02/22/24 07:59 Last Admin: 01/26/24 08:53 Dose: 20 mg Documented By: Admin: 01/25/24 08:32 Dose: 20 mg Documented By: Admin: 01/24/24 15:29 Dose: Not Given Documented By: Admin: 01/23/24 12:53 Dose: 20 mg Documented By: RADHA Buprenorphine HCl (Buprenorphine 5 Mcg/Hr Tdsy) 3 patch TD Th [facility] Stop: 02/22/24 07:59 Last Admin: 01/23/24 09:10 Dose: 3 patch Documented By: RADHA Carbidopa/Levodopa (Carbidopa/Levodopa 25/100mg Tab) 1 tab PO 0800,1200,1600,2000 [facility] Stop: 02/21/24 15:59 Last Admin: 01/26/24 15:56 Dose: 1 tab Documented By: Admin: 01/26/24 11:42 Dose: 1 tab Documented By: Admin: 01/26/24 08:52 Dose: 1 tab Documented By: Admin: 01/25/24 20:49 Dose: 1 tab Documented By: [id number] Admin: 01/25/24 15:54 Dose: 1 tab Documented By: Admin: 01/25/24 12:30 Dose: 1 tab Documented By: Admin: 01/25/24 08:33 Dose: 1 tab Documented By: Admin: 01/24/24 20:53 Dose: 1 tab Documented By: Admin: 01/24/24 15:53 Dose: 1 tab Documented By: Admin: 01/24/24 15:32 Dose: Not Given Documented By: Admin: 01/24/24 15:29 Dose: Not Given Documented By: Admin: 01/23/24 19:44 Dose: 1 tab Documented By: Admin: 01/23/24 16:56 Dose: 1 tab Documented By: Admin: 01/23/24 12:53 Dose: 1 tab Documented By: Admin: 01/23/24 08:58 Dose: 1 tab Documented By: Admin: 01/22/24 19:38 Dose: 1 tab Documented By: Admin: 01/22/24 16:21 Dose: 1 tab Documented By: RUTH Diclofenac Sodium (Diclofenac Sod 1% Gel 100 Gm Tube) 2 gm EXT BID PRN; Protocol PRN Reason: Pain Stop: 02/22/24 20:59 Last Admin: 01/24/24 20:54 Dose: 2 gm Documented By: SIDNEY Docusate Sodium (Docusate Sodium 100 Mg Cap) 100 mg PO BID [facility] Stop: 02/21/24 20:59 Last Admin: 01/26/24 08:55 Dose: 100 mg Documented By: Admin: 01/25/24 21:08 Dose: 100 mg Documented By: Trudy Admin: 01/25/24 08:37 Dose: 100 mg Documented By: Admin: 01/24/24 20:53 Dose: 100 mg Documented By: Admin: 01/24/24 15:30 Dose: Not Given Documented By: Admin: 01/23/24 20:15 Dose: 100 mg Documented By: Admin: 01/23/24 09:08 Dose: 100 mg Documented By: Admin: 01/22/24 19:36 Dose: 100 mg Documented By: ALFRED Ferrous Sulfate (Ferrous Sulfate 325 Mg Tab) 325 mg PO QAM [facility] Stop: 02/22/24 08:59 Last Admin: 01/26/24 08:53 Dose: 325 mg Documented By: Admin: 01/25/24 08:32 Dose: 325 mg Documented By: Admin: 01/24/24 15:31 Dose: Not Given Documented By: Admin: 01/23/24 08:59 Dose: 325 mg Documented By: RADHA Fluticasone Propionate (Fluticasone Propionate Na Spr 16 Gm Btl) 2 sprays NA 0800,1999 [facility] Stop: 02/21/24 19:59 Last Admin: 01/26/24 08:51 Dose: 2 sprays Documented By: Admin: 01/25/24 20:49 Dose: 2 sprays Documented By: Trudy Admin: 01/25/24 08:33 Dose: 2 sprays Documented By: Admin: 01/24/24 20:53 Dose: 2 sprays Documented By: Admin: 01/24/24 15:30 Dose: Not Given Documented By: Admin: 01/23/24 19:46 Dose: 2 sprays Documented By: Admin: 01/23/24 09:01 Dose: 2 sprays Documented By: Admin: 01/22/24 19:38 Dose: 2 sprays Documented By: ALFRED Ertapenem 1,000 mg/ Syringe 10 mls @ 2 mls/min IV Q24H [facility] Stop: 02/04/24 13:59 Last Admin: 01/26/24 13:33 Dose: 2 mls/min Documented By: Admin: 01/25/24 13:59 Dose: 2 mls/min Documented By: RADHA Lactic Acid (Ammonium Lactate 12% Lotion 225 Gm Btl) 1 gm EXT BID [facility] Stop: 02/25/24 14:19 Last Admin: 01/26/24 15:56 Dose: 1 gm Documented By: JEFFERY Levothyroxine Sodium (Levothyroxine Sodium 50 Mcg Tablet) 50 mcg PO DAILY@0800 [facility] Stop: 02/22/24 07:59 Last Admin: 01/26/24 08:53 Dose: 50 mcg Documented By: Admin: 01/25/24 08:32 Dose: 50 mcg Documented By: Admin: 01/24/24 15:30 Dose: Not Given Documented By: Admin: 01/23/24 08:58 Dose: 50 mcg Documented By: RADHA Lidocaine (Lidocaine 5% 1 Patch) 1 patch TD QAM [facility] Stop: 02/22/24 09:29 Last Admin: 01/26/24 08:51 Dose: 1 patch Documented By: Admin: 01/25/24 08:34 Dose: 1 patch Documented By: Admin: 01/24/24 15:31 Dose: Not Given Documented By: Admin: 01/23/24 12:54 Dose: 1 patch Documented By: RADHA Melatonin (Melatonin 3 Mg Tab) 6 mg PO HS PRN PRN Reason: Sleep Stop: 02/21/24 20:59 Last Admin: 01/25/24 20:44 Dose: 6 mg Documented By: [id number] Admin: 01/23/24 19:45 Dose: 6 mg Documented By: ALFRED Metoprolol Tartrate (Metoprolol Tartrate 25 Mg Tab) 25 mg PO TID [facility] Stop: 02/21/24 20:59 Last Admin: 01/26/24 13:31 Dose: 25 mg Documented By: Admin: 01/26/24 08:50 Dose: Not Given Documented By: Admin: 01/25/24 20:43 Dose: Not Given Documented By: [id number] Admin: 01/25/24 15:54 Dose: 25 mg Documented By: Admin: 01/25/24 08:31 Dose: 25 mg Documented By: Admin: 01/24/24 20:53 Dose: 25 mg Documented By: Admin: 01/24/24 15:32 Dose: Not Given Documented By: Admin: 01/24/24 15:31 Dose: Not Given Documented By: Admin: 01/23/24 20:15 Dose: Not Given Documented By: Admin: 01/23/24 12:50 Dose: Not Given Documented By: Admin: 01/23/24 08:58 Dose: Not Given Documented By: Admin: 01/22/24 22:29 Dose: 25 mg Documented By: ALFRED Midodrine (Midodrine Hcl 2.5 Mg Tab) 5 mg PO TID@0800,1300,1800 [facility] Stop: 02/21/24 17:59 Last Admin: 01/26/24 17:45 Dose: 5 mg Documented By: Admin: 01/26/24 13:31 Dose: 5 mg Documented By: Admin: 01/26/24 08:52 Dose: 5 mg Documented By: Admin: 01/25/24 18:00 Dose: 5 mg Documented By: Admin: 01/25/24 12:30 Dose: 5 mg Documented By: Admin: 01/25/24 08:32 Dose: 5 mg Documented By: Admin: 01/24/24 17:50 Dose: 5 mg Documented By: Admin: 01/24/24 15:32 Dose: Not Given Documented By: Admin: 01/24/24 15:30 Dose: Not Given Documented By: Admin: 01/23/24 17:57 Dose: 5 mg Documented By: Admin: 01/23/24 12:53 Dose: 5 mg Documented By: Admin: 01/23/24 08:58 Dose: 5 mg Documented By: Admin: 01/22/24 17:19 Dose: 5 mg Documented By: RUTH Mirtazapine (Mirtazapine Tab 15 Mg Tab) 30 mg PO 1999 [facility] Stop: 02/21/24 19:59 Last Admin: 01/25/24 20:47 Dose: 30 mg Documented By: Trudy Admin: 01/24/24 20:53 Dose: 30 mg Documented By: Admin: 01/23/24 19:45 Dose: 30 mg Documented By: Admin: 01/22/24 19:37 Dose: 30 mg Documented By: ALFRED Collado (Remove & Waste Butrans Patch 1 Ea Ea) 1 each N/A Th@0859 [facility] Stop: 02/22/24 08:58 Last Admin: 01/23/24 09:08 Dose: 1 each Documented By: RADHA Collado (Check Buprenorphine Patch) 1 each N/A QS [facility] Stop: 02/21/24 14:29 Last Admin: 01/26/24 15:56 Dose: 1 each Documented By: Admin: 01/26/24 08:53 Dose: 1 each Documented By: Admin: 01/26/24 00:27 Dose: 1 each Documented By: Trudy Admin: 01/25/24 15:54 Dose: 1 each Documented By: Admin: 01/25/24 08:33 Dose: 1 each Documented By: Admin: 01/25/24 00:26 Dose: 1 each Documented By: Admin: 01/24/24 15:53 Dose: 1 each Documented By: Admin: 01/24/24 15:29 Dose: Not Given Documented By: Admin: 01/23/24 23:55 Dose: 1 each Documented By: Admin: 01/23/24 16:57 Dose: 1 each Documented By: Admin: 01/23/24 09:08 Dose: 1 each Documented By: Admin: 01/23/24 00:13 Dose: 1 each Documented By: Admin: 01/22/24 14:46 Dose: 1 each Documented By: MARCUS Collado (Remove Lidoderm Patch) 1 each N/A DAILY@2100 [facility] Stop: 02/22/24 20:59 Last Admin: 01/25/24 20:44 Dose: 1 each Documented By: [id number] Admin: 01/24/24 20:56 Dose: 1 each Documented By: Admin: 01/23/24 20:15 Dose: 1 each Documented By: ALFRED Montelukast Sodium (Montelukast Sodium 10 Mg Tablet) 10 mg PO 1999 [facility] Stop: 02/21/24 19:59 Last Admin: 01/25/24 20:49 Dose: 10 mg Documented By: [id number] Admin: 01/24/24 20:53 Dose: 10 mg Documented By: Admin: 01/23/24 19:44 Dose: 10 mg Documented By: Admin: 01/22/24 19:37 Dose: 10 mg Documented By: ALFRED Ondansetron HCl (Ondansetron Inj 2 Mg/Ml 2 Ml Vial) 4 mg IV Q6H PRN PRN Reason: Nausea Stop: 02/21/24 13:38 Last Admin: 01/24/24 19:15 Dose: 4 mg Documented By: SIDNEY Oxycodone HCl (Oxycodone Hcl Ir 5 Mg Tab (Immediate Release)) 5 mg PO Q4H PRN PRN Reason: Pain Stop: 02/05/24 13:38 Last Admin: 01/26/24 11:42 Dose: 5 mg Documented By: Admin: 01/25/24 20:44 Dose: 5 mg Documented By: [id number] Admin: 01/25/24 13:59 Dose: 5 mg Documented By: Admin: 01/25/24 04:07 Dose: 5 mg Documented By: Admin: 01/24/24 17:50 Dose: 5 mg Documented By: Admin: 01/23/24 23:55 Dose: 5 mg Documented By: Admin: 01/23/24 19:21 Dose: 5 mg Documented By: Admin: 01/23/24 10:09 Dose: 5 mg Documented By: Admin: 01/22/24 16:59 Dose: 5 mg Documented By: RUTH Pantoprazole Sodium (Pantoprazole 40 Mg Tab) 40 mg PO 0800 [facility] Stop: 02/22/24 07:59 Last Admin: 01/26/24 08:53 Dose: 40 mg Documented By: Admin: 01/25/24 08:32 Dose: 40 mg Documented By: Admin: 01/24/24 15:30 Dose: Not Given Documented By: Admin: 01/23/24 08:59 Dose: 40 mg Documented By: RADHA Potassium Chloride (Potassium Chloride Crtab 20 Meq Tabcr) 40 meq PO BID [facility] Stop: 02/24/24 13:39 Last Admin: 01/26/24 08:53 Dose: 40 meq Documented By: Admin: 01/25/24 20:45 Dose: 40 meq Documented By: [id number] Admin: 01/25/24 13:59 Dose: 40 meq Documented By: RADHA Ropinirole HCl (Ropinirole Hcl 1 Mg Tablet) 2.5 mg PO 0800,1500,1999 [facility] Stop: 02/21/24 19:59 Last Admin: 01/26/24 15:56 Dose: 2.5 mg Documented By: Admin: 01/26/24 08:52 Dose: 2.5 mg Documented By: Admin: 01/25/24 20:47 Dose: 2.5 mg Documented By: [id number] Admin: 01/25/24 16:25 Dose: 2.5 mg Documented By: Admin: 01/25/24 08:33 Dose: 2.5 mg Documented By: Admin: 01/24/24 20:53 Dose: 2.5 mg Documented By: Admin: 01/24/24 15:52 Dose: 2.5 mg Documented By: Admin: 01/24/24 15:30 Dose: Not Given Documented By: Admin: 01/23/24 19:44 Dose: 2.5 mg Documented By: Admin: 01/23/24 16:56 Dose: 2.5 mg Documented By: Admin: 01/23/24 08:59 Dose: 2.5 mg Documented By: Admin: 01/22/24 19:37 Dose: 2.5 mg Documented By: ALFRED Choudhury Boulardii (Saccharomyces Boulardii 250 Mg Cap) 250 mg PO 0800,1999 [facility] Stop: 02/21/24 19:59 Last Admin: 01/26/24 08:52 Dose: 250 mg Documented By: Admin: 01/25/24 20:49 Dose: 250 mg Documented By: [id number] Admin: 01/25/24 08:33 Dose: 250 mg Documented By: Admin: 01/24/24 20:53 Dose: 250 mg Documented By: Admin: 01/24/24 15:30 Dose: Not Given Documented By: Admin: 01/23/24 19:45 Dose: 250 mg Documented By: Admin: 01/23/24 08:59 Dose: 250 mg Documented By: Admin: 01/22/24 19:37 Dose: 250 mg Documented By: ALFRED Torsemide (Torsemide 20 Mg Tab) 20 mg PO DAILY@0800 [facility] Stop: 02/22/24 17:14 Last Admin: 01/26/24 08:53 Dose: 20 mg Documented By: Admin: 01/25/24 08:31 Dose: 20 mg Documented By: Admin: 01/24/24 15:30 Dose: Not Given Documented By: Admin: 01/23/24 17:57 Dose: 20 mg Documented By: RADHA Discontinued Medications Heparin Sodium (Porcine) (Heparin Sod 5,000 Unit/0.5 Ml Vial) 5,000 units SQ Q8 [facility] Stop: 02/21/24 13:59 Last Admin: 01/22/24 14:51 Dose: Not Given Documented By: MARCUS Lactated Ringer's (Lr) 1,000 mls @ 80 mls/hr IV .[id number] [facility] Stop: 01/23/24 13:14 Last Infusion: 01/23/24 12:51 Dose: Infused Documented By: Admin: 01/23/24 01:58 Dose: 80 mls/hr Documented By: Infusion: 01/23/24 01:58 Dose: Infused Documented By: Admin: 01/22/24 14:03 Dose: 80 mls/hr Documented By: MARCUS Phytonadione 2.5 mg/ Dextrose 50.25 mls @ 100.5 mls/hr IV ONE ONE Stop: 01/22/24 16:29 Last Infusion: 01/22/24 17:16 Dose: Infused Documented By: Admin: 01/22/24 16:46 Dose: 100.5 mls/hr Documented By: RUTH Ceftriaxone Sodium (Rocephin) 2,000 mg in 50 mls @ 100 mls/hr IV Q24H [facility] Stop: 01/28/24 13:14 Last Infusion: 01/25/24 13:25 Dose: Infused Documented By: Admin: 01/25/24 12:51 Dose: 100 mls/hr Documented By: Infusion: 01/24/24 16:43 Dose: Infused Documented By: Admin: 01/24/24 15:53 Dose: 100 mls/hr Documented By: Infusion: 01/23/24 15:04 Dose: Infused Documented By: Admin: 01/23/24 14:23 Dose: 100 mls/hr Documented By: RADHA Magnesium Sulfate/Dextrose (Magnesium Sulfate / D5w) 1 gm in 100 mls @ 50 mls/hr IV Q2H [facility] Stop: 01/25/24 17:44 Last Infusion: 01/25/24 17:59 Dose: Infused Documented By: Admin: 01/25/24 15:55 Dose: 50 mls/hr Documented By: Infusion: 01/25/24 15:55 Dose: Infused Documented By: Admin: 01/25/24 14:00 Dose: 50 mls/hr Documented By: RADHA Metoprolol Tartrate (Metoprolol Tartrate 25 Mg Tab) 25 mg PO ONE STA Stop: 01/22/24 14:10 Last Admin: 01/22/24 14:45 Dose: Not Given Documented By: MARCUS Midodrine (Midodrine Hcl 2.5 Mg Tab) 5 mg PO ONE STA Stop: 01/22/24 14:11 Last Admin: 01/22/24 14:51 Dose: 5 mg Documented By: MARCUS Phytonadione (Phytonadione 5 Mg Tab) 2.5 mg PO NOW STA Stop: 01/22/24 15:10 Last Admin: 01/22/24 17:18 Dose: 2.5 mg Documented By: RUTH Potassium Phosphate (Pot Phosphate Monobasic W/ Sod Tab) 1 tab PO QID [facility] Stop: 01/26/24 16:59 Last Admin: 01/26/24 13:31 Dose: 1 tab Documented By: Admin: 01/26/24 08:52 Dose: 1 tab Documented By: Admin: 01/25/24 20:45 Dose: 1 tab Documented By: [id number] Admin: 01/25/24 16:24 Dose: 1 tab Documented By: RADHA Ropinirole HCl (Ropinirole Hcl 1 Mg Tablet) 2.5 mg PO ONE STA Stop: 01/22/24 14:16 Last Admin: 01/22/24 14:51 Dose: 2.5 mg Documented By: MARCUS Medical Decision Making Differential Diagnosis Infection, dehydration, metabolic abnormality, hypo/hyperglycemia, electrolyte disturbance, anemia, hypoxia, cardiac sources, intracerebral event, toxicologic, neurologic, musculoskeletal, disc herniation, fracture, metastatic disease, cord compression, discitis, sciatica, cauda equina, aortic disease, renal colic, gastrointestinal, as well as other pathologies. Medical Records Attestation: I reviewed the patient's medical records. Home Medications Current Medication List: was personally reviewed by me Laboratory Data Attestation: I reviewed the patient's lab results. CBC shows no leukocytosis, stable anemia, CMP shows acute kidney failure with hypokalemia, elevated troponin. 01/26/24 06:39 01/26/24 06:39 Lab Results 01/22/24 Range/Units 10:41 WBC 11.27 H (4.8-10.8) K/ul RBC 4.08 L (4.20-5.40) M/uL Hgb 11.9 L (12.0-16.0) g/dl Hct 37.6 (37.0-47.0) % MCV 92.2 (80.0-100.0) fL MCH 29.2 (25.0-34.0) pg MCHC 31.6 L (32.0-36.0) g/dL RDW Std Deviation 50.8 H (36.4-46.3) fL RDW Coeff of Neftaly 15.2 H (11.5-14.5) % Plt Count 370 (130-400) K/uL MPV 10.0 (9.4-12.4) fL Immature Gran % (Auto) 4.8 % Neut % (Auto) 85.0 % Lymph % (Auto) 5.1 % [place] % (Auto) 4.3 % Eos % (Auto) 0.4 % Baso % (Auto) 0.4 % Neut # (Auto) 9.59 H (1.40-6.50) K/uL Lymph # (Auto) 0.57 L (1.20-3.40) K/uL [place] # (Auto) 0.49 (0.11-0.59) K/uL Eos # (Auto) 0.04 (0.00-0.50) K/uL Baso # (Auto) 0.04 (0.00-0.20) K/uL Immature Gran # (Auto) 0.54 H (0.01-0.20) K/uL PT 18.7 H (9.0-12.0) Seconds INR 1.8 H (0.9-1.1) Sodium 134 L (136-145) mmol/L Potassium 4.2 (3.5-5.1) mmol/L Chloride 98 (98-107) mmol/L Carbon Dioxide 20 L (21-32) mmol/L Anion Gap 16 H (3-11) BUN 86 H (6-23) mg/dl Creatinine 2.17 H (0.6-1.2) mg/dl Est Cr Clr Drug Dosing 19.8 ml/min Est GFR ( Amer) 25.4 ml/min Est GFR (Non-Af Amer) 21.9 ml/min BUN/Creatinine Ratio 39.6 H (10-20) Glucose 86 (70-99(Fasting)) mg/dl Calcium 9.6 (8.6-10.3) mg/dl Magnesium 2.2 (1.7-2.4) mg/dl Total Bilirubin 0.6 (0.2-1.0) mg/dl AST 9 L (13-39) U/L ALT < 3 L (7-52) U/L Alkaline Phosphatase 142 H (34-104) U/L Total Creatine Kinase 17 L (26-192) U/L Troponin I High Sens 17.5 H (0-14) pg/ml Total Protein 7.4 (6.0-8.3) gm/dl Albumin 3.9 (3.4-5.0) gm/dl Globulin 3.5 (2.5-4.0) gm/dl Albumin/Globulin Ratio 1.1 (0.9-2) TSH 0.457 (0.300-4.500) uIu/ml Imaging Data Attestation: I personally reviewed and interpreted this imaging study as follows: ECG Data Attestation: I personally reviewed and interpreted this ECG as follows: Indication: + weakness Rate (beats per minute): 75 Rhythm: + sinus rhythm ECG Intervals/blocks: + Normal DC ECG Arrington: + Normal ECG ST segments: + Normal ST segments; no ST depression or no ST elevation Comparison ECG Date: from (12/31/23) Change: the following changes noted (resolution of incomplete RBBB) Blood Pressure Blood Pressure Findings: Normal blood pressure MDM Narrative The patient is a 73-year-old female who arrives to the emergency department for evaluation of the above-stated complaint. Upon examination the patient is in significant discomfort with true BLE weakness. The patient has a chronic history of lumbar spine pain with no MRI available for evaluation. A saline lock was established, CBC, CMP, troponin, TSH, urinalysis, chest xray and MRI of the lumbar spine were obtained. CBC shows leukocytosis of 11.27 with a chronic but stable anemia. CMP shows an elevated BUN and creatinine. Troponin is elevated at 17.5, with repeat pending. Urinalysis shows 3+ leukocyte esterase with 4+ bacteria and >50 WBCs. Prior to results of MRI, I made contact with case management to facilitate admission for JAEL, elevated troponin and UTI. The patient was presented to the [facility] who agreed to accept for admission. MRI imaging of the lumbar spine resulted which shows a 4.9 x 1.5 x 1 cm left posterior intracanalicular fluid collection at the L4-S1 levels which results in moderate to severe central canal stenosis, consistent with a hematoma. Dr. Garg from [facility] spine is available for consult from the admitting team. Please refer to the [facility] documentation for further patient care. Continuous playground monitor: Order was placed for continuous playground monitor. Patient was placed on the playground monitor. Patient was noted to be in sinus rhythm at an initial rate of 80 bpm. The patient's case was discussed with Dr. Campbell, who agreed with my evaluation and treatment plan. Impression & Plan JAEL (acute kidney injury), Acute UTI, Elevated troponin, Ambulatory dysfunction, Lumbar back pain Discharge Plan Visit Data Chief Complaint: Leg Weakness, Bilateral ED Provider: Eugenio Campbell ED Midlevel Provider: Laura Pickard Discharge Problem: JAEL (acute kidney injury), Acute UTI, Elevated troponin, Ambulatory dysfunction, Lumbar back pain Patient Disposition: Admitted As Inpatient Discharge Instructions Interventions: ED Discharge Assessment Last Done: 01/22/24 13:41
[2024-01-22 11:08] LABS: Basophils # (auto) 0.04 K/uL (0.00-0.20); Basophils % (auto) 0.4 %; Eosinophils # (auto) 0.04 K/uL (0.00-0.50); Eosinophils % (auto) 0.4 %; Hematocrit (blood only) 37.6 % (37.0-47.0); Hemoglobin 11.9 g/dl (12.0-16.0); Immature Granulocytes # (auto) 0.54 K/uL (0.01-0.20); Immature Granulocytes % (auto) 4.8 %; Lymphocytes # (auto) 0.57 K/uL (1.20-3.40); Lymphocytes % (auto) 5.1 %; Mean Corpuscular Hemoglobin 29.2 pg (25.0-34.0); Mean Corpuscular Hgb Conc 31.6 g/dL (32.0-36.0); Mean Corpuscular Volume 92.2 fL (80.0-100.0); Monocytes # (auto) 0.49 K/uL (0.11-0.59); Monocytes % (auto) 4.3 %; Neutrophils # (auto) 9.59 K/uL (1.40-6.50); Platelet Count 370 K/uL (130-400); RDW Coefficient of Variation 15.2 % (11.5-14.5); RDW Standard Deviation 50.8 fL (36.4-46.3); Red Blood Count 4.08 M/uL (4.20-5.40); White Blood Count 11.27 K/ul (4.8-10.8)
--- NOTE | 2024-01-22 11:17 | XRay Report ---
XR chest 1V portable CLINICAL HISTORY: weakness TECHNIQUE: Single frontal radiograph of the chest was obtained. Comparison: Comparison is made to chest radiograph 10/30/2023 FINDINGS: No lines and tubes are seen. Calcified aortic knob is seen. The lungs are clear. No evidence of pleur al effusion or pneumothorax. IMPRESSION: No acute chest disease. ACT 112: Negative or not required by law. Electronically signed by: Luis Felipe Luna M.D. 01/22/2024 11:16 AM
[2024-01-22 11:25] LABS: Anion Gap 16 (3-11); BUN Creatinine Ratio 39.6 (10-20); Blood Urea Nitrogen 86 mg/dl (6-23); Calcium 9.6 mg/dl (8.6-10.3); Carbon Dioxide 20 mmol/L (21-32); Chloride 98 mmol/L (98-107); Creatinine Clr Calc Pharmacy 19.8 ml/min; Est GFR (African American) 25.4 ml/min; Est GFR (Non-African American) 21.9 ml/min; Glucose 86 mg/dl (70-99(Fasting)); Potassium 4.2 mmol/L (3.5-5.1); Sodium 134 mmol/L (136-145)
[2024-01-22 11:30] LABS: Troponin I High Sensitivity 17.5 pg/ml (0-14)
[2024-01-22 11:32] LABS: INR 1.8 (0.9-1.1); Prothrombin Time 18.7 Seconds (9.0-12.0)
--- NOTE | 2024-01-22 11:33 | Electrocardiogram Report ---
Test Reason : Blood Pressure : / mmHG Vent. Rate : 075 BPM Atrial Rate : 075 BPM P-R Int : 168 ms QRS Dur : 114 ms QT Int : 416 ms P-R-T Axes : 079 -27 018 degrees QTc Int : 464 ms Poor data quality, interpretation may be adversely affected Normal sinus rhythm Moderate voltage criteria for LVH, may be normal variant ( R in aVL ) Borderline ECG When compared with ECG of 31-DEC-2023 06:16, Incomplete right bundle branch block is no longer Present Confirmed by Kaveh Carter ([id number]) on 01/22/2024 11:33:28 AM Referred By: [facility] Confirmed By:Kaveh Carter
[2024-01-22 11:40] LABS: Thyroid Stimulating Hormone 0.457 uIu/ml (0.300-4.500)
--- NOTE | 2024-01-22 11:57 | History & Physical Report ---
Date of Service January 22, 2024 Assessment & Plan (1) Bilateral leg weakness: (2) JAEL (acute kidney injury): (3) Acute pain of both shoulders: Plan Patient is 73-year-old female with PMH POTS, chronic low BP, chronic pain, chronic right shoulder dislocation, Edenilson-Danlos syndrome, protein C deficiency, history DVT, PE, chronic anticoagulation with warfarin, chronic HFpEF, hypothyroidism, chronic anemia, BRANDIE, PTSD, anxiety, paroxysmal supraventricular tachycardia, obesity, history gastric bypass, and others listed below presented to ER with complaint of bilateral weakness of legs x 4-5 days. Bilateral lower extremity weakness admit to med tele pt recently hospitalized and sent to rehab, now re hospitalized with JAEL and weakness obtain lumbar spine MRI PT/OT weakness possibly attributed to JAEL JAEL baseline cr 0.8-0.9 bun/cr 86 and 2.17 hold torsemide, hydrate with LR @ 80cc/hr x 2 L obtain Renal/bladder scan, UA with protein/cr ratio Hx of recurrent UTI, ESBL pt asymptomatic from UTI standpoint, afebrile await UA C and S, but given asymptomatic will hold on any treatment Paroxysmal atrial fibrillation: H/O PE/DVT Rate is controlled Subtherapeutic INR on presentation Continue metoprolol INR 1.8 today Continue Coumadin, but increase to 6mg today SQ Heparin while INR < 2.0, d/c heparin when INR Therapeutic Edenilson-Danlos syndrome: History of bilateral shoulder dislocation and chronic pain pt was to have trigger point inj today as outpt, will consult pain management she is scheduled to see orthopedics in [place] for surgery Chronic heart failure with preserved ejection fraction (HFpEF): hold torsemide due to JAEL Monitor volume status , daily weight, I and O BRANDIE (obstructive sleep apnea): stable, CPAP at HS Chronic hypotension: on midodrine monitor DVT Px: Coumadin, SQ Heparin FULL CODE PCP: Debbie Camacho Dispo: med tele Pt was seen and examined in collaboration with Dr. Santana, please see addendum A total of 55 minutes was spent coordinating, documenting, and providing care for this patient excluding time spent in the performance of separately billed services. This included personally viewing all current laboratories and imaging studies, medication reconciliation, outpatient chart review, and discussion with specialists. History of Present Illness Chief Complaint: bilateral weakness x 4-5 days. Primary Care Provider: [facility] Patient is 73-year-old female with PMH POTS, chronic low BP, chronic pain, chronic right shoulder dislocation, Edenilson-Danlos syndrome, protein C deficiency, history DVT, PE, chronic anticoagulation with warfarin, chronic HFpEF, hypothyroidism, chronic anemia, BRANDIE, PTSD, anxiety, paroxysmal supraventricular tachycardia, obesity, history gastric bypass, and others listed below presented to ER with complaint of bilateral weakness of legs x 4-5 days. Of significance patient was hospitalized 12/30 to 01/04 secondary to mechanical fall while injuring both shoulders, right leg cellulitis treated with IV antibiotics and transition to oral cefdinir and doxycycline at discharge. She was then discharged to rehab. She was at [facility] rehab and completed rehab. She was discharged back home to [facility] and she has been back for 5 days. Since being back she has been having increasing bilateral lower extremity weakness. Today she was going to her PCP hospital f/u today and just to get into car it took 25 minutes. When they got to the office she was to weak to walk. She typically uses a walker at baseline. Last night she was upset and she had some diarrhea which isn't unusual. She had one big bowel movement. She denies recent fall. She c/o some chest pressure last evening when she was upset. This lasted a few seconds and went away. She denies diaphoresis and SOB. She continues to have uncontrolled pain in her bilateral shoulders. She was suppose to get trigger point injections today in them. She has been urinating more frequently but that is not unusual with the torsemide. She denies hematuria, dysuria or increased u rgency. She further denies f/c/s, cough, n/v, and abd pain. In ED pt remained hemodynamically stable. Lab work revealed a new JAEL. Allergies Allergy/AdvReac Type Severity Reaction Status Date / Time ammonia Allergy Severe FACE, Verified 12/19/23 13:59 LIPS, TONGUE EDEMA buspirone Allergy Severe NEURO Verified 12/19/23 13:59 COMPLICATIONS duloxetine Allergy Intermediate RASH Verified 12/19/23 13:59 ITCHING adhesive Allergy Mild skin tears Verified 12/19/23 13:59 vancomycin Allergy Unknown ON [facility] Verified 12/19/23 13:59 MED LIST diphenhydramine AdvReac Intermediate RESTLESS Verified 12/19/23 13:59 LEGS gabapentin AdvReac Intermediate MUSCLE Verified 12/19/23 13:59 STIFFNESS lisinopril AdvReac Intermediate cough Verified 12/19/23 13:59 NSAIDS (Non-Steroidal AdvReac Unknown not Verified 12/19/23 13:59 Anti-Inflamma supposed to use-S/P GASTRIC BYPASS venlafaxine AdvReac Unknown AFFECTS Verified 12/19/23 13:59 LEGS Home Medications Medication Instructions Recorded Confirmed Type atorvastatin 20 mg tablet 20 mg PO .@0801/09/22 01/22/24 History buprenorphine 15 mcg/hour weekly 1 patch topical WK 01/09/22 01/22/24 History transdermal patch carbidopa 25 mg-levodopa 100 mg 1 tab PO .0800,1200,1600,199901/09/22 01/22/24 History tablet fluticasone propionate 50 2 spray intranasal .@799,199901/09/22 01/22/24 History mcg/actuation nasal spray,suspension (Flonase Allergy Relief) hydroxyzine HCl 25 mg tablet 25 mg PO QID PRN ANXIETY/ITCHING 01/09/22 01/22/24 History levothyroxine 50 mcg tablet 50 mcg PO .@79901/09/22 01/22/24 History montelukast 10 mg tablet 10 mg PO .@199901/09/22 01/22/24 History Saccharomyces boulardii 250 mg 250 mg PO .@08,199910/03/22 01/22/24 History capsule (Florastor) acetaminophen 500 mg tablet 1,000 mg PO Q8H PRN TEMP >100F/PAIN 12/10/22 01/22/24 History (Tylenol Extra Strength) loperamide 2 mg tablet 2 mg PO Q6H PRN Diarrhea 12/10/22 01/22/24 History mirtazapine 30 mg tablet 30 mg PO .@199912/10/22 01/22/24 History ergocalciferol (vitamin D2) 25,000 50,000 unit PO .WED@79903/07/23 01/22/24 History unit capsule omeprazole 20 mg tablet,delayed 40 mg PO .@79907/29/23 01/22/24 History release ropinirole 5 mg tablet 2.5 mg PO .@0800,1499,199907/29/2324 History torsemide 20 mg tablet 40 mg PO .@0800 07/29/23 01/22/24 History potassium chloride 20 mEq oral 20 meq PO DAILY #30 ea 07/31/23 01/22/24 Rx packet ferrous sulfate 325 mg (65 mg 325 mg PO QAM #0 tabs 11/09/23 01/22/24 Rx iron) tablet,delayed release hydrocortisone 2.5 % topical cream 1 applic EXT Q4H PRN #0 grams 11/09/23 01/22/24 Rx with perineal applicator (Proctosol HC) metoprolol tartrate 25 mg tablet 25 mg PO TID #0 tabs 11/09/23 01/22/24 Rx midodrine 2.5 mg tablet 5 mg (2 x 2.5 mg) PO 11/09/23 01/22/24 Rx TID@0800,1300,1800 #0 tabs ondansetron HCl 4 mg tablet 4 mg PO Q8H PRN Nausea And Vomiting 12/19/23 History docusate sodium 100 mg capsule 100 mg PO BID 12/31/23 01/22/24 History loperamide 2 mg capsule 2 mg PO Q6H PRN Diarrhea 12/31/23 01/22/24 History (Anti-Diarrheal (loperamide)) oxycodone 5 mg tablet 5 mg PO Q4H PRN Pain 12/31/23 01/22/24 History vit C 250 mg-vit E 90 mg-zinc 40 1 tab PO BID 12/31/23 01/22/24 History mg-copper 1 [id number] capsule (PreserVision AREDS-2) warfarin 5 mg tablet 5 mg PO PM 12/31/23 01/22/24 History enoxaparin 80 mg/0.8 mL 80 mg subcut DIRECTED 01/22/24 01/22/24 History subcutaneous syringe guaifenesin 600 mg tablet, 600 mg PO DIRECTED 01/22/24 01/22/24 History extended release 12 hr Past Med/Surg History Problem List (Updated 01/22/24 @ 12:28 by Ning Mederos PA-C) Bilateral leg weakness Acute pain of both shoulders (Acute) Shoulder pain, acute Preoperative cardiovascular examination Paroxysmal atrial fibrillation Cellulitis (Acute) Leukocytosis (Acute) Sepsis (Acute) BRANDIE (obstructive sleep apnea) Chronic hypotension Elevated troponin Tachycardia Edenilson-Danlos syndrome Hematoma of oral cavity Bleeding gums Elevated INR (Acute) Infected tooth snf (current) use of anticoagulants (Acute) Sleep apnea intermittently able to tolerate CPAP Back problem Heart disease Bronchitis Arthritis Dislocation closed, shoulder Chronic heart failure with preserved ejection fraction (HFpEF) Recurrent falls Encounter for pre-operative examination Thoracic aortic aneurysm (Acute) Paroxysmal SVT (supraventricular tachycardia) Cellulitis of right foot Ambulatory dysfunction Arthritis of foot Cellulitis of foot, right (Acute) Sepsis Left leg pain (Acute) Edema (Acute) Cellulitis (Acute) Leukocytosis (Acute) Cellulitis of left leg Traumatic ecchymosis of left lower leg DVT prophylaxis Chronic pain (Acute) Obesity tie cutter current use of anticoagulant therapy (Acute) Cellulitis of leg, right (Acute) Fall (Acute) Rhabdomyolysis (Acute) JAEL (acute kidney injury) (Acute) Acute hypokalemia (Acute) Contusion of multiple sites (Acute) Acute UTI (Acute) Adult failure to thrive (Acute) COVID-19 Unable to care for self Bilateral lower leg cellulitis (Acute) Leukocytosis (Acute) Generalized weakness (Acute) Sepsis Shoulder subluxation, right (Acute) Cellulitis of lower extremity Dislocation of right shoulder joint Leg swelling (Acute) Hypokalemia (Acute) Bilateral leg pain (Acute) Bacteremia (Acute) Chronic pain syndrome (Acute) Lymphedema (Acute) Diverticulitis Diverticular disease of intestine with perforation and abscess Fever (Acute) Acute UTI (urinary tract infection) (Acute) Sepsis (Acute) Anemia Acute exacerbation of chronic low back pain Opioid dependence Fibromyalgia History of DVT (deep vein thrombosis) chronic anticoagulation Protein C deficiency Peripheral neuropathy GERD (gastroesophageal reflux disease) Gastroparesis Asthma uses PRN INH 3-4 x wk Hypothyroidism Restless leg syndrome Edenilson-Danlos syndrome (Acute) ISAC (generalized anxiety disorder) Pulmonary embolism 07/2018 - treated w/ lovenox - unk etiology Medical History Hx of blood clots Thyroid disease Skin cancer Head injury Parkinson disease Acute kidney injury Abdominal hernia Coagulopathy Hypokalemia Weakness Dysphagia History of colon polyps Difficult intravenous access History of intestinal obstruction Bulging of intervertebral disc Osteoporosis Osteoarthritis Renal cyst History of colon polyps Thyroid nodule Hearing deficit ADHD Hyperlipidemia Claustrophobia Thoracic aortic aneurysm follows w/ Dr. Arredondo - evaluated within last 6 mo Surgical History History of incision and drainage (11/04/23) Facial Incision and Drainage and removal of multiple teeth(Not Applicable) - Raphael Mcqueen, DMD Hx of melanoma excision shoulder Self extubation attempted post gastric bypass History of laparotomy History of left knee replacement History of intestinal surgery History of right knee joint replacement History of arthroscopy of left knee History of abdominoplasty + hernia repair History of bilateral breast reduction surgery History of cholecystectomy History of tonsillectomy History of gastric bypass History of esophagogastroduodenoscopy (EGD) History of colonoscopy 2019 Status post biopsy of thyroid gland benign Family History Uncle Stomach cancer Cancer Family/Other Breast cancer Grandfather Cancer Mother Heart disease Hypertension Stroke Grandmother Heart disease Stroke Other No family history of adverse response to anesthesia No pertinent family history in first degree relatives Social History Smoking Status: Never smoker Second Hand Exposure: No; Do You Dip or Chew Tobacco: No; Hx Alcohol Use: No Hx Substance Use: No Preferred Language: Danish Communication Ability: Effective Communication Ability Comment: pt is obtunded Visual Impairment: Limited Hearing Ability: Normal Computer Security Specialist Required: No Beliefs That Will Affect Care: None marital status: Single Current Living Situation: Alone Current Living Situation Comment: [place] current occupational status: retired How many Children do You have: 0 Feels Safe at Home: Yes Diet: regular during the past year weight has: remained stable Assistive Devices: Walker Review of Systems Review of Systems: All systems reviewed & are unremarkable except as noted in HPI & below Physical Exam Physical Exam: please refer to Dr. Santana addendum for physical exam findings. Results & Data Results & Data Vital Signs (Past 12 Hours) Vital Signs Temp Pulse Resp BP Pulse Ox O2 Del Method 01/22/24 11:09 87 16 95 Room Air 01/22/24 10:53 83 01/22/24 10:10 36.4 C L 105 H 16 113/66 96 Laboratory Results I have independently reviewed and interpreted patient's admitting labs including CBC, CMP, PT/INR, mag and troponin, tsh. Diagnostic Findings Chest X-Ray 01/22/24 10:51 XR chest 1V portable CLINICAL HISTORY: weakness TECHNIQUE: Single frontal radiograph of the chest was obtained. Comparison: Comparison is made to chest radiograph 10/30/2023 FINDINGS: No lines and tubes are seen. Calcified aortic knob is seen. The lungs are clear. No evidence of pleural effusion or pneumothorax. IMPRESSION: No acute chest disease. ACT 112: Negative or not required by law. Electronically signed by: Luis Fleipe Luna M.D. 01/22/2024 11:16 AM ECG Additional Comments: I have independently reviewed and interpreted patient's admitting EKG which revealed: COVID-19 Results Results COVID-19 Adm Lab Results: RBC 4.08 M/uL (4.20-5.40) L 01/22/24 WBC 11.27 K/ul (4.8-10.8) H 01/22/24 Hgb 11.9 g/dl (12.0-16.0) L 01/22/24 Hct 37.6 % (37.0-47.0) 01/22/24 Plt Count 370 K/uL (130-400) 01/22/24 Neutrophils (%) (Auto) 85.0 % 01/22/24 Lymphocytes (%) (Auto) 5.1 % 01/22/24 Monocytes # (Auto) 0.49 K/uL (0.11-0.59) 01/22/24 Eosinophils # (Auto) 0.04 K/uL (0.00-0.50) 01/22/24 Immature Granulocyte % (Auto) 4.8 % 01/22/24 Neutrophils # (Auto) 9.59 K/uL (1.40-6.50) H 01/22/24 Lymphocytes # (Auto) 0.57 K/uL (1.20-3.40) L 01/22/24 Monocytes # (Auto) 0.49 K/uL (0.11-0.59) 01/22/24 Eosinophils # (Auto) 0.04 K/uL (0.00-0.50) 01/22/24 Basophils # (Auto) 0.04 K/uL (0.00-0.20) 01/22/24 Immature Granulocyte # (Auto) 0.54 K/uL (0.01-0.20) H 01/21 Na 134 mmol/L (136-145) L 01/22/24 K 4.2 mmol/L (3.5-5.1) 01/22/24 Cl 98 mmol/L (98-107) 01/22/24 CO2 20 mmol/L (21-32) L 01/22/24 Anion Gap 16 (3-11) H 01/22/24 BUN 86 mg/dl (6-23) H 01/22/24 Creatinine 2.17 mg/dl (0.6-1.2) H 01/22/24 BUN/Creatinine Ratio 39.6 (10-20) H 01/22/24 Glucose Level 86 mg/dl (70-99(Fasting)) 01/22/24 Ca 9.6 mg/dl (8.6-10.3) 01/22/24 Total Bilirubin 0.6 mg/dl (0.2-1.0) 01/22/24 AST/SGOT 9 U/L (13-39) L 01/22/24 ALT/SGPT < 3 U/L (7-52) L 01/22/24 Alkaline Phosphatase 142 U/L (34-104) H 01/22/24 Total Protein 7.4 gm/dl (6.0-8.3) 01/22/24 Albumin 3.9 gm/dl (3.4-5.0) 01/22/24 Globulin 3.5 gm/dl (2.5-4.0) 01/22/24 Albumin/Globulin Ratio 1.1 (0.9-2) 01/22/24 Total CK Pending 01/22/24 INR 1.8 (0.9-1.1) H 01/22/24 Chest X-Ray 01/22/24 Code Status & VTE Plan VTE Prophylaxis Plan VTE Prophylaxis will be ordered: No Reason for no VTE drug order: Treatment not indicated Supervising Physician Co-Signing Physician Notes Patient is a 73-year-old female with multiple comorbidities presents with bilateral leg weakness which has been gradually worsening for the last 4 to 5 days duration. Patient has been having difficulty ambulating secondary to leg weakness. She usually uses a walker for ambulation. She admits to have transient episode of nausea associated with vomiting 2 days ago. Also reports having large loose bowel movement yesterday. Appetite and oral intake unchanged. Also complains of shoulder pain and was scheduled for possible trigger injection today. Patient denies any trauma, dyspnea, dizziness, hematuria, dysuria, fever, chills. Please review HPI for complete details of presentation. I personally reviewed blood work and imaging studies. Blood work suggestive of leukocytosis 11.2 K, INR 1.8, sodium 134, bicarb 20, anion gap 16, BUN 86, creatinine 2.17, alkaline phosphatase 142, troponin 17.5. TSH normal. Lumbar spine, urine analysis, CK, stool studies, renal ultrasound currently pending. Physical Exam: Vitals signs as noted above General Appearance: Moderately built, chronic ill appearing, no apparent distress Head: normocephalic, Atraumatic Eyes: normal inspection, EOMI Neck: supple, Trachea midline Respiratory/Chest: Decreased breath sounds, CTA, No accessory muscle use Cardiovascular: S1, S2, + murmur Abdomen/GI:Soft, Non tender, Bowel sounds present Extremities/Musculoskeletal:normal inspection, trace lower extremity edema, chronic venous stasis changes Neurologic/Psych:AAOX3, grossly no focal neurological deficits Skin: normal color, warm Acute kidney injury Likely prerenal secondary to GI losses Diuretics contributing as well Hold torsemide, potassium supplement Check renal ultrasound Gentle IV fluids Urine analysis pending Consider nephrology evaluation if no improvement Bilateral lower extremity weakness MRI Lumbar spine pending PT OT, fall precautions Further management based on MRI results Subtherapeutic INR INR 1.8 Will increase Coumadin to 6 mg today Monitor INR Chronic bilateral shoulder pain h/o shoulder dislocation, Edenilson-Danlos, fibromyalgia May need trigger point injection for pain control Follows with orthopedics as outpatient I personally interviewed and examined at bedside. Patient's care is coordinated with Ning Mederos PA-C. I have reviewed the advanced practitioner's documentation, and I agree with plan of care. Please refer to the documentation above for details of patient's presentation and for discussion of other issues. I spent a total [id number] coordinating, documenting, and providing care for this patient excluding time spent in the performance of separately billed services.
--- NOTE | 2024-01-22 12:06 | Emergency Department Note ---
ED Visit Note I was consulted by the Advanced Practice Provider ASCENCION Peter. I performed a substantive portion of the visit including all aspects of medical decision making. Patient presented due to concern for bilateral lower extremity weakness. The patient does have associated JAEL and elevated troponin. Patient was admitted to [facility]. .
[2024-01-22 12:19] LABS: Alanine Aminotransferase < 3 U/L (7-52); Albumin Globulin Ratio 1.1 (0.9-2); Albumin Level 3.9 gm/dl (3.4-5.0); Alkaline Phosphatase 142 U/L (34-104); Aspartate Aminotransferase 9 U/L (13-39); Bilirubin,Total 0.6 mg/dl (0.2-1.0); Globulin 3.5 gm/dl (2.5-4.0); Magnesium 2.2 mg/dl (1.7-2.4); Total Protein 7.4 gm/dl (6.0-8.3)
[2024-01-22 13:08] LABS: Creatine Kinase 17 U/L (26-192)
[2024-01-22] MEDS ORDERED: POLYETHYLENE (MIRALAX) 17 GM PACK PO PRN (13:39)
[2024-01-22] MEDS ORDERED: FAMOTIDINE 20 MG TAB PO PRN (13:39)
[2024-01-22] MEDS ORDERED: ACETAMINOPHEN 325 MG TAB PO PRN (13:39)
[2024-01-22] MEDS ORDERED: hydrOXYzine HCl 25 MG TAB PO PRN (13:39)
[2024-01-22] MEDS: LACTATED RINGER'S 1,000 ML IV SCH (14:03)
--- NOTE | 2024-01-22 14:35 | Magnetic Resonance Report ---
MRI OF THE LUMBAR SPINE WITHOUT CONTRAST CLINICAL HISTORY: Bilateral lower extremity weakness. COMPARISON STUDY: Lumbar spine CT July 27, 2022. TECHNIQUE: Utilizing a 1.5 Shayy magnet and dedicated coil, multiplanar, multiecho imaging of the jovi ar spine was performed without IV contrast. FINDINGS: For purposes of numbering on this exam, the L5-S1 disc space is assigned to axial image 27 of 30. Lum bar spine levoscoliosis and slight anterolisthesis of L5 on S1 is unchanged. There are no fractures. There is no suspicious marrow replacement. The conus terminates at the mid L1 level. Biliary ductal d ilatation is similar to abdominal CT of April 04, 2023 and likely related to cholecystectomy. The re is a right renal cyst. Moderate multilevel degenerative changes within lumbar spine are present. O f note, there is a 4.9 x 1.5 x 1 cm intracanalicular T1 and T2 hyperintense collection along the left posterior lateral aspect of the thecal sac at the L4-S1 levels. This results in moderate to severe c entral canal stenosis with mass effect upon the thecal sac. No additional intracanalicular fluid rosa isela ections are present. L1-2: There is moderate disc space narrowing with moderate facet arthrosis. The central canal and pranav ral foramen are patent. L2-3: There is moderate to space narrowing with facet arthrosis and ligamentous hypertrophy. There is disc bulge. There is moderate central canal and bilateral neural foraminal stenosis. L3-4: Moderate facet arthrosis is present with ligamentous hypertrophy. There is moderate central can al stenosis. There is moderate bilateral neural foraminal stenosis. L4-5: Left posterior intracanalicular fluid collection is present, as described above. There is moder ate to severe central canal stenosis. There is moderate disc space narrowing at this level as well as moderate right and mild left neural foraminal stenosis. L5-S1: Left posterior intracanalicular fluid collection is present, as described above. There is mode rate to severe central canal stenosis. There is moderate bilateral neural foraminal stenosis. IMPRESSION: 1. 4.9 x 1.5 x 1 cm left posterior intracanalicular fluid collection at the L4-S1 levels which result s in moderate to severe central canal stenosis. Given the signal characteristics, this is consistent with a hematoma. An epidural hematoma is favored however a subdural hematoma could appear similar. Sp ine surgical consultation is recommended. Findings discussed with Laura Pickard at time of dictation. 2. Moderate multilevel degenerative disc disease and facet arthrosis within the lumbar spine. Moderat e narrowing of the central canal and neural foramen at several levels, as described above. 3. Lumbar spine levoscoliosis. 4. No lumbar spine fractures. ACT 112: Negative or not required by law. Electronically signed by: Norris Blackburn M.D. 01/22/2024 2:34 PM
[2024-01-22] MEDS: METOPROLOL TARTRATE 25 MG TAB PO STA (14:45)
[2024-01-22] MEDS: CHECK BUPRENORPHINE PATCH SCH (14:46)
[2024-01-22] MEDS: rOPINIRole HCL 1 MG TABLET PO STA (14:51)
[2024-01-22] MEDS: MIDODRINE HCL 2.5 MG TAB PO STA (14:51)
[2024-01-22] MEDS: HEPARIN SOD 5,000 UNIT/0.5 ML VIAL SQ SCH (14:51)
[2024-01-22] MEDS ORDERED: WARFARIN SOD 6 MG TAB PO SCH (16:00)
[2024-01-22] MEDS: CARBIDOPA/LEVODOPA 25/100MG TAB PO SCH (16:21)
[2024-01-22] MEDS: PHYTONADIONE 2.5 MG in DEXTROSE 5% 50 ML IV ONE (16:46)
[2024-01-22] MEDS: oxyCODONE HCL IR 5 MG TAB (IMMEDIATE RELEASE) PO PRN (16:59)
[2024-01-22] MEDS: PHYTONADIONE 5 MG TAB PO STA (17:18)
[2024-01-22] MEDS: MIDODRINE HCL 2.5 MG TAB PO SCH (17:19)
--- NOTE | 2024-01-22 18:10 | Orthopedic Consultation ---
Date of Service January 22, 2024 Assessment & Plan (1) Back problem: (2) Obesity: (3) Nontraumatic epidural hematoma: (4) Disc degeneration, lumbar: (5) Stenosis, spinal, lumbar: History of Present Illness Reason for Consultation: Weakness in lower extremities, epidural hematoma lumbar spine noted with patient on anticoagulation. Requesting Physician: . Attending Physician: Yosi Santana MD 73-year-old female with PMH POTS, chronic low BP, chronic pain, chronic right shoulder dislocation, Edenilson-Danlos syndrome, protein C deficiency, history DVT, PE, chronic anticoagulation with warfarin, chronic HFpEF, hypothyroidism, chronic anemia, BRANDIE, PTSD, anxiety, paroxysmal supraventricular tachycardia, obesity, history gastric bypass, and others listed below presented to ER with complaint of bilateral weakness of legs x 4-5 days. Of significance patient was hospitalized 12/30 to 01/04 secondary to mechanical fall while injuring both shoulders, right leg cellulitis treated with IV antibiotics and transition to oral cefdinir and doxycycline at discharge, she was then discharged to rehab. She was at [facility] rehab and completed rehab and discharged back home to [facility] and she has been back for 5 days. Since being back she has been having increasing bilateral lower extremity weakness. Today she was going to her PCP hospital f/u today and just to get into car it took 25 minutes. When they got to the office she was to weak to walk. She typically uses a walker at baseline. Last night she was upset and she had some diarrhea which isn't unusual. She denies recent fall. She has been urinating more frequently but that is not unusual with the torsemide. She denies hematuria, dysuria or increased urgency. She further denies f/c/s, cough, n/v, and abd pain. In ED pt remained hemodynamically stable. Lab work revealed a new JAEL. Patient relates to me that she has been using a wheeled walker for about the past year for ambulation. She noted to me that she does not noted distinct change in her lower extremity strength in the last several days, perhaps some subtle changes over the last several weeks but notes that she was being pushed at the rehab facilities and locations which upset her relative to the requirements for the activity level. Some frustration in that aspect was related to the patient. She also has pain in the lower extremities consistent with the chronic cellulitis along with swelling. She does not relate to me a focal change in her lower extremity strength in 1 leg or the other recently. Exam reveals the patient to be resting comfortably in bed alert white cooperative for examination. She had appropriate strength in the upper extremities, she was finishing eating dinner. Lower extremity exam revealed no tenderness in the lumbar spine, she had what I thought was appropriate strength in the 4+ range for EHL, ankle plantar and dorsiflexion, knee flexion extension strength and also hip flexion strength. Straight leg raise was gently applied with some low back pain only. MRI OF THE LUMBAR SPINE WITHOUT CONTRAST January 22, 2024 CLINICAL HISTORY: Bilateral lower extremity weakness. COMPARISON STUDY: Lumbar spine CT July 27, 2022. TECHNIQUE: Utilizing a 1.5 Shayy magnet and dedicated coil, multiplanar, multiecho imaging of the lumbar spine was performed without IV contrast. FINDINGS: For purposes of numbering on this exam, the L5-S1 disc space is assigned to axial image 27 of 30. Lumbar spine levoscoliosis and slight anterolisthesis of L5 on S1 is unchanged. There are no fractures. There is no suspicious marrow replacement. The conus terminates at the mid L1 level. Biliary ductal dilatation is similar to abdominal CT of April 04, 2023 and likely related to cholecystectomy. There is a right renal cyst. Moderate multilevel degenerative changes within lumbar spine are present. Of note, there is a 4.9 x 1.5 x 1 cm intracanalicular T1 and T2 hyperintense collection along the left posterior lateral aspect of the thecal sac at the L4-S1 levels. This results in moderate to severe central canal stenosis with mass effect upon the thecal sac. No additional intracanalicular fluid collections are present. L1-2: There is moderate disc space narrowing with moderate facet arthrosis. The central canal and neural foramen are patent. L2-3: There is moderate to space narrowing with facet arthrosis and ligamentous hypertrophy. There is disc bulge. There is moderate central canal and bilateral neural foraminal stenosis. L3-4: Moderate facet arthrosis is present with ligamentous hypertrophy. There is moderate central canal stenosis. There is moderate bilateral neural foraminal stenosis. L4-5: Left posterior intracanalicular fluid collection is present, as described above. There is moderate to severe central canal stenosis. There is moderate disc space narrowing at this level as well as moderate right and mild left neural foraminal stenosis. L5-S1: Left posterior intracanalicular fluid collection is present, as described above. There is moderate to severe central canal stenosis. There is moderate bilateral neural foraminal stenosis. IMPRESSION: 1. 4.9 x 1.5 x 1 cm left posterior intracanalicular fluid collection at the L4- S1 levels which results in moderate to severe central canal stenosis. Given the signal characteristics, this is consistent with a hematoma. An epidural hematoma is favored however a subdural hematoma could appear similar. Spine surgical consultation is recommended. Findings discussed with Laura Pickard at time of dictation. 2. Moderate multilevel degenerative disc disease and facet arthrosis within the lumbar spine. Moderate narrowing of the central canal and neural foramen at several levels, as described above. 3. Lumbar spine levoscoliosis. Review of MRI images from [facility] on January 22, 2024, this is my separate interpretation reveals the patient to have degenerative changes extending up to T8 throughout the lumbar spine along with scoliosis. There is some moderate foraminal stenosis on the right at L3-4, central stenosis is absent except in the area of the hematoma as noted in the note above which is central and posterior left from mid L4 to just below the L5-S1 disc space on the left. The most significant area of stenosis is at the L4-5 disc space due to a combination of disc spondylosis bulging in this region in combination with a hematoma as it appears on the MRI, I would rate this as moderate in stenosis with only a more moderate severe area being in the lateral recess on the left only. CSF can easily be seen around the nerve roots at this level. Impression: Appears to be epidural hematoma from L4-S1 central left with at least moderate stenosis on the left at L4-5 and more severe in the lateral recess region but not in the foraminal regions. Plan: Recommended reversal of warfarin and patient to place on perhaps a different anticoagulant relative to the DVT diagnosis. Currently the patient exhibits relatively appropriate strength in both lower extremities on examination, the nursing staff related to me that she was able to walk to the [facility] without any difficulties. For this reason I do not think any surgical intervention to remove the hematoma is necessary at this time, appropriate follow-up with a repeat MRI may be a reasonable consideration at some point in the next several days to next week depending on any changes or lack of change with the patient, the exact timing of the development of hematoma is unknown. Recommend continued physical therapy mobilization along with additional medical management related to the other diagnoses as listed on admission, will follow. Allergies Allergy/AdvReac Type Severity Reaction Status Date / Time ammonia Allergy Severe FACE, Verified 12/19/23 13:59 LIPS, TONGUE EDEMA buspirone Allergy Severe NEURO Verified 12/19/23 13:59 COMPLICATIONS duloxetine Allergy Intermediate RASH Verified 12/19/23 13:59 ITCHING adhesive Allergy Mild skin tears Verified 12/19/23 13:59 vancomycin Allergy Unknown [facility] Verified 12/19/23 13:59 MED LIST diphenhydramine AdvReac Intermediate RESTLESS Verified 12/19/23 13:59 LEGS gabapentin AdvReac Intermediate MUSCLE Verified 12/19/23 13:59 STIFFNESS lisinopril AdvReac Intermediate cough Verified 12/19/23 13:59 NSAIDS (Non-Steroidal AdvReac Unknown not Verified 12/19/23 13:59 Anti-Inflamma supposed to use-S/P GASTRIC BYPASS venlafaxine AdvReac Unknown AFFECTS Verified 12/19/23 13:59 LEGS Home Medications Medication Instructions Recorded Confirmed Type atorvastatin 20 mg tablet 20 mg PO .@79901/09/22 01/22/24 History buprenorphine 15 mcg/hour weekly 1 patch topical WK 01/09/22 01/22/24 History transdermal patch carbidopa 25 mg-levodopa 100 mg 1 tab PO .0800,1200,1600,199901/09/22 01/22/24 History tablet fluticasone propionate 50 2 spray intranasal .@799,199901/09/22 01/22/24 History mcg/actuation nasal spray,suspension (Flonase Allergy Relief) hydroxyzine HCl 25 mg tablet 25 mg PO QID PRN ANXIETY/ITCHING 01/09/22 01/22/24 History levothyroxine 50 mcg tablet 50 mcg PO .@79901/09/22 01/22/24 History montelukast 10 mg tablet 10 mg PO .@199901/09/22 01/22/24 History Saccharomyces boulardii 250 mg 250 mg PO .@799,199910/03/22 01/22/24 History capsule (Florastor) acetaminophen 500 mg tablet 1,000 mg PO Q8H PRN TEMP >100F/PAIN 12/10/22 01/22/24 History (Tylenol Extra Strength) loperamide 2 mg tablet 2 mg PO Q6H PRN Diarrhea 12/10/22 01/22/24 History mirtazapine 30 mg tablet 30 mg PO .@199912/10/22 01/22/24 History ergocalciferol (vitamin D2) 25,000 50,000 unit PO .WED@0803/07/23 01/22/24 History unit capsule omeprazole 20 mg tablet,delayed 40 mg PO .@0807/29/23 01/22/24 History release ropinirole 5 mg tablet 2.5 mg PO .@0800,1500,199907/29/23 01/22/24 History torsemide 20 mg tablet 40 mg PO .@0807/29/23 01/22/24 History potassium chloride 20 mEq oral 20 meq PO DAILY #30 ea 07/31/23 01/22/24 Rx packet ferrous sulfate 325 mg (65 mg 325 mg PO QAM #0 tabs 11/09/23 01/22/24 Rx iron) tablet,delayed release hydrocortisone 2.5 % topical cream 1 applic EXT Q4H PRN #0 grams 11/09/23 01/22/24 Rx with perineal applicator (Proctosol HC) metoprolol tartrate 25 mg tablet 25 mg PO TID #0 tabs 11/09/23 01/22/24 Rx midodrine 2.5 mg tablet 5 mg (2 x 2.5 mg) PO 11/09/23 01/22/24 Rx TID@0800,1300,1800 #0 tabs ondansetron HCl 4 mg tablet 4 mg PO Q8H PRN Nausea And Vomiting 12/19/23 01/22/24 History docusate sodium 100 mg capsule 100 mg PO BID 12/31/23 01/22/24 History loperamide 2 mg capsule 2 mg PO Q6H PRN Diarrhea 12/31/23 01/22/24 History (Anti-Diarrheal (loperamide)) oxycodone 5 mg tablet 5 mg PO Q4H PRN Pain 12/31/23 01/22/24 History vit C 250 mg-vit E 90 mg-zinc 40 1 tab PO BID 12/31/23 01/22/24 History mg-copper 1 oi-ocxnnz-kbftid capsule (PreserVision AREDS-2) warfarin 5 mg tablet 5 mg PO PM 12/31/23 01/22/24 History enoxaparin 80 mg/0.8 mL 80 mg subcut DIRECTED 01/22/24 01/22/24 History subcutaneous syringe guaifenesin 600 mg tablet, 600 mg PO DIRECTED 01/22/24 01/22/24 History extended release 12 hr Past Med/Surg History Problem List (Updated 01/23/24 @ 17:30 by Robinson Garg MD) Stenosis, spinal, lumbar Disc degeneration, lumbar Nontraumatic epidural hematoma Chronic shoulder pain Nontraumatic epidural hematoma Bilateral leg weakness Acute pain of both shoulders (Acute) Shoulder pain, acute Preoperative cardiovascular examination Paroxysmal atrial fibrillation Cellulitis (Acute) Leukocytosis (Acute) Sepsis (Acute) BRANDIE (obstructive sleep apnea) Chronic hypotension Elevated troponin Tachycardia Edenilson-Danlos syndrome Hematoma of oral cavity Bleeding gums Elevated INR (Acute) Infected tooth care home (current) use of anticoagulants (Acute) Sleep apnea intermittently able to tolerate CPAP Back problem Heart disease Bronchitis Arthritis Dislocation closed, shoulder Chronic heart failure with preserved ejection fraction (HFpEF) Recurrent falls Encounter for pre-operative examination Thoracic aortic aneurysm (Acute) Paroxysmal SVT (supraventricular tachycardia) Cellulitis of right foot Ambulatory dysfunction Arthritis of foot Cellulitis of foot, right (Acute) Sepsis Left leg pain (Acute) Edema (Acute) Cellulitis (Acute) Leukocytosis (Acute) Cellulitis of left leg Traumatic ecchymosis of left lower leg DVT prophylaxis Chronic pain (Acute) 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 (Acute) Cellulitis of leg, right (Acute) Fall (Acute) Rhabdomyolysis (Acute) JAEL (acute kidney injury) (Acute) Acute hypokalemia (Acute) Contusion of multiple sites (Acute) Acute UTI (Acute) Adult failure to thrive (Acute) COVID-19 Unable to care for self Bilateral lower leg cellulitis (Acute) Leukocytosis (Acute) Generalized weakness (Acute) Sepsis Shoulder subluxation, right (Acute) Cellulitis of lower extremity Dislocation of right shoulder joint Leg swelling (Acute) Hypokalemia (Acute) Bilateral leg pain (Acute) Bacteremia (Acute) Chronic pain syndrome (Acute) Lymphedema (Acute) Diverticulitis Diverticular disease of intestine with perforation and abscess Fever (Acute) Acute UTI (urinary tract infection) (Acute) Sepsis (Acute) Anemia Acute exacerbation of chronic low back pain Opioid dependence Fibromyalgia History of DVT (deep vein thrombosis) chronic anticoagulation Protein C deficiency Peripheral neuropathy GERD (gastroesophageal reflux disease) Gastroparesis Asthma uses PRN INH 3-4 x wk Hypothyroidism Restless leg syndrome Edenilson-Danlos syndrome (Acute) ISAC (generalized anxiety disorder) Pulmonary embolism 07/2018 - treated w/ lovenox - unk etiology Medical History Hx of blood clots Thyroid disease Skin cancer Head injury Parkinson disease Acute kidney injury Abdominal hernia Coagulopathy Hypokalemia Weakness Dysphagia History of colon polyps Difficult intravenous access History of intestinal obstruction Bulging of intervertebral disc Osteoporosis Osteoarthritis Renal cyst History of colon polyps Thyroid nodule Hearing deficit ADHD Hyperlipidemia Claustrophobia Thoracic aortic aneurysm follows w/ Dr. Arredondo - evaluated within last 6 mo Surgical History History of incision and drainage (11/04/23) Facial Incision and Drainage and removal of multiple teeth(Not Applicable) - Raphael Mcqueen, DMD Hx of melanoma excision shoulder Self extubation attempted post gastric bypass History of laparotomy History of left knee replacement History of intestinal surgery History of right knee joint replacement History of arthroscopy of left knee History of abdominoplasty + hernia repair History of bilateral breast reduction surgery History of cholecystectomy History of tonsillectomy History of gastric bypass History of esophagogastroduodenoscopy (EGD) History of colonoscopy 2019 Status post biopsy of thyroid gland benign Family History Uncle Stomach cancer Cancer Family/Other Breast cancer Grandfather Cancer Mother Heart disease Hypertension Stroke Grandmother Heart disease Stroke Other No family history of adverse response to anesthesia No pertinent family history in first degree relatives Social History Smoking Status: Never smoker Second Hand Exposure: Yes; Do You Dip or Chew Tobacco: No; Tobacco Cessation Education Requested by Patient: No Hx Alcohol Use: No Hx Substance Use: No Preferred Language: Surinamese Communication Ability: Effective Communication Ability Comment: pt is obtunded Visual Impairment: Limited Hearing Ability: Normal Commercial Manager Required: No Beliefs That Will Affect Care: None marital status: Single Current Living Situation: Alf Current Living Situation Comment: [facility] [place] current occupational status: retired How many Children do You have: 0 Other Information That Helps Us Care for You: No Feels Safe at Home: Yes Safety Concerns: Feels Safe At This Time Diet: regular during the past year weight has: remained stable Assistive Devices: Walker Review of Systems All systems reviewed & are unremarkable except as noted in HPI & below. Physical Exam . Results & Data Results & Data Laboratory Results . Diagnostic Findings . PG Care Time/CCT Total # of Minutes Spent Total Time Spent with Patient: Total time spent is greater than 50% in coordination of care (as documented) at patient's floor/unit and/or counseling patient: Coding Level of Care Code 29060 IN/OBS CONSULT LVL 3,45M Diagnoses Back problem M53.9 Obesity E66.9 Nontraumatic epidural hematoma I62.1 Disc degeneration, lumbar M51.36 Stenosis, spinal, lumbar M48.061
--- OUTSIDE RECORDS SUMMARY | 2024-01-22 18:44 | External Medical Summary ---
Author Name Unknown Address Unknown Organization K09:[facility] [place] [address] Laboratory Report Ordering Provider Test Date Status HY,DEPAMPHILIS 01/13/2024 05:56:15 Final Observation Date Value Abnormality Reference (Units ) Status BUN 01/13/2024 05:56:15 26 Above high normal 6-20 (mg/dL) Final Creatinine 01/13/2024 05:56:15 0.8 0.5-1.0 (mg/dL) Final Glomerular filtration rate/1.73 sq M.predicted [Volume Rate/Area] in Serum, Plasma or Blood by Creatinine-based formula (CKD-EPI) 01/13/2024 05:56:15 74 >=60 (mL/min) Final eGFR is calculated based on the CKD-EPI 2020 equation Sodium 01/13/2024 05:56:15 140 135-146 (m mol/L) Final Potassium 01/13/2024 05:56:15 3.7 3.5-5.1 (m mol/L) Final Cl 01/13/2024 05:56:15 101 98-107 (mm ol/L) Final CO2 01/13/2024 05:56:15 26 22-32 (mmo l/L) Final Anion gap 01/13/2024 05:56:15 13 7-15 (mmol /L) Final Glucose 01/13/2024 05:56:15 98 70-120 (mg /dL) Final Calcium 01/13/2024 05:56:15 8.6 8.4-10.2 ( mg/dL) Final Performing Location [facility] [place] [place] [address]
--- OUTSIDE RECORDS SUMMARY | 2024-01-22 18:44 | External Medical Summary ---
Author Name Unknown Address Unknown Organization [id number]:[facility] [address] [place] [address] Laboratory Report Ordering Provider Test Date Status JACOB CASTILLO 01/11/2024 06:31:00 Final Warfarin Therapy
INR: 2 .0-3.0 conventional anticoagulation
INR: 2.5- 3.5 high intensity anticoagulation Observation Date Value Abnormality Reference (Units ) Status PT 01/11/2024 06:31:00 33.7 Above high normal 11 .6-15.2 (seconds) Final INR 01/11/2024 06:31:00 3.3 Above high normal 0. 8-1.2 Final Performing Location [facility] [address] [place] [address]
--- OUTSIDE RECORDS SUMMARY | 2024-01-22 18:44 | External Medical Summary | Summary of Care ---
Author Name Unknown Organization [facility] Address [address] [place] [address] Phone [phone] Care Team Providers Care Bottom Brusher Name Role Phone Lavern Gomez DO Primary Care Provider [phone] Encounter Details Date Type Department Care Team (Late st Contact Info) Description 01/17/2024 11:00 AM EDT Home Visit Care Coordination and Integration [address] [place], [place] [id number] Cintia Bowser, Community Health Mri Technician [address] [place] [address] Allergies Active Allergy Reactions Criticality Noted Date [...] as of this encounter (statuses as of 01/17/2024) Medications Medication Sig Dispensed Refills Start Date [...] Active Additional Information Patient taking differently:25 mg [id number], Reported on 12/06/2023 PreserVision AREDS 2+Multi Vit [...] as of this encounter (statuses as of 01/17/2024) Active Problems Problem Noted Date Diagnosed Date [...] colon with perforation 023 Overview: Admission to [facility] 10/28. Last Assessment & Plan: Stable. 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, alternates daily Aneurysm of ascending aorta without rupture 11/2022 [...] or up the stairs") Medication Regimen: Beta Alejanrdo Therapy: Metoprolol Tartrate LLUVIA Inhibitor/ARB Therapy: No LLUVIA/ARB/ARNI secondary to: hypotension Diuretic therapy: Torsemide SGLT2 Inhibitor: No Current SGLT2 (Describe in the Comments) Remote Patient Monitoring Vendor: No Connected RPM Device(s): No current devices Self - Management Plan Double dose of Torsemide for 3 days Exacerbation Plan BMP Chest X-Ray Additional Comments: stable PTSD (post-traumatic stress disorder) 03/09/2022 Lipedema 06/08/2021 [...] 05/07/2018 Last Assessment & Plan: Followed by hot stone setter Major depressive disorder, recurrent, mild 04/30 Last [...] this will have to come through PCP, [facility] does not participate in chronic pain management. [...] as of this encounter (statuses as of 01/17/2024) Resolved Problems Problem Noted Date Diagnosed Date [...] as of this encounter (statuses as of 01/17/2024) Immunizations Name Administration Dates Next Due COVID-19 mRNA, LNP-s, No Pre serve, 2-Dose Series ([place]) 07/07/2021,10/04/2020,09/07/2020 Hepatitis B, 20+ yrs 11/05/2004,07/08/1995 PPD 01/25/2008 Pneumococcal Conjugate Vacc, 13 Valent (Prevnar) 06/10/2015 Pneumococcal Conjugate Vacci ne, 20-valent ([id number]) 06/06/2023 Pneumococcal Polysaccharide PPV23 (Pneumovax) 06/07/2019,12/26/2007 Seasonal [...] Care Team (Late st Contact Info) Description 01/21/2024 11:00 AM EDT Scheduled Telephone Interventional [facility] Center, [facility] [place] [address] [facility], Nurse Phone Call Interventional Pain [facility] [address] [place] [address] 01/22/2024 9:10 AM EDT [facility] [address] [facility] [phone] Lavern Gomez DO [address] [facility] [place] [address] 01/22/2024 11:40 AM EDT Office Visit [facility] [address] [facility] [facility] [phone] Debbie Otero PA-C [address] [facility] [address] 01/23/2024 10:00 AM EDT Home Visit [facility] [address] [place] [address] Sonja Robledo RN [address] [facility] [place] [address] 02/04/2024 1:30 PM EDT Office Visit Cardiology, [facility] [address] [facility] [place] [address] Patricia Knott CRNP [address] [facility] [address] 03/10/2024 11:00 AM EDT Office Visit [place] [address] [facility] [facility] [phone] Debbie Otero PA-C [address] [place] [address] 03/31/2024 11:00 AM EDT Laboratory Laboratory, [place] [address] [place] [address] [facility] [address] [facility], [place] [phone] 04/07/2024 2:00 PM EDT Office Visit Hematology/Oncology [facility] [address] [facility] [phone] Hanane Enamorado CRNP [address] [place] [address] 04/10/2024 11:20 AM EDT Office Visit [facility], [place] [address] [place] [address] Debbie Otero PA-C [address] [facility], [place] [address] 05/05/2024 10:00 AM EDT Nurse Only Ancillary Department, [place] [address] [place] [address] [place], Nurse Annual Wellness [address] [place] [address] Health Maintenance Due Date Last Done Comments Cologuard 1995 Fecal Occult Blood Test 1995 Sigmoidoscopy 1995 Hepatitis B Vaccine (3 of 3 - 19+ 3-dose series) 12/31/2004 11/05/2004, 07/08/1995 Mammogram 10/17/2022 10/17/2021, 09/06, 02/27/2019, Additional history exists DXA Scan 12/13/2022 12/13/2020, 11/05, 08/20/2016, Additional history exists Colonoscopy 01/04/2023 01/05/2020, 12/07, 01/03/2017, Additional history exists Colorectal Cancer Screening 01/04/2023 COVID-19 Vaccine ( season) 2023 07/07/2021, 10/04/2020, 09/07/2020 HbA1c 10/25/2023 04/25/2023, 02/07, 06/29/2019, Additional history exists Albumin/Creatinine Ratio 03/06/2024 023, 10/17/2021, 06/19/2017 Influenza Vaccine (FLU shot) (#1) 2024 04/25/2023, 06/05/2022, 06/19/2021, Additional history exists Diabetic Foot Exam 04/29/2024 04/29/2023 Depression Monitoring 09/08/2024 09/09/2023 Diabetic Eye Exam 10/07/2024 10/08/2023, , 09/02/2023, Additional history exists TSH 11/12/2024 11/13/2023, 04/07, 03/06/2023, Additional history exists GFR 01/12/2025 01/13/2024, 07/0 07/2023, 11/10/2023, Additional history exists Lipid Panel 09/05/2025 09/05/2020, 06/08, 05/05/2018, Additional history exists DTaP,Tdap,and Td Vaccines (3 - Td or Tdap) 06/27/2030 06/27/2020, 06/01/2013, 04/02/2008, Additional history exists Zoster Vaccines Completed 01/01/2019, 07/10, 06/05/2012 VITAMIN D LEVEL ONCE IN A LIFETIME-USE SMARTSET# [id number] Completed 11/21/2021, 06/06/2020, 02/16/2020, Additional history exists Pneumococcal Vaccine: 65+ Years Completed 06/06/2023, 06/07/2019, 06/10/2015, Additional history exists HPV (Gardasil) Vaccine Aged Out No lo nger eligible based on patient's age to complete this topic MENINGOCOCCAL (MENACTRA/MENVEO) Aged Out No longer eligible based on patient's age to complete this topic documented as of this encounter Medical Devices Not on filedocumented as of this encounter Advance Directives Documents on File Type Date Recorded Patient Yoker Machine Operator Expl anation Advance Directives and Living Will 09/26/2023 signed on 08/22/2023 ADVANCE DIRECTIVE / LIVING WILL Power of Emergency Medical Services Coordinator 09/26/2023 signed on 08/22/2023 POWER OF LAW FIRM RECEPTIONIST HEALTH CARE Healthcare Agents on File Name Relationship Healthcare Agent Relationship Communication Erica Nunes Other - (no specific identity) Health Care Yoker Machine Operator (appointed verbally by patient or by statute hierarchy) Care Teams Bottom Brusher Relationship Specialty Start Date End Date Lavern Gomez DO [address] [place] [facility] [place] [address] PCP - General Family Medicine 10/27/22 documented as of this encounter
--- OUTSIDE RECORDS SUMMARY | 2024-01-22 18:44 | External Medical Summary | Summary of Care ---
Author Name Unknown Organization [facility] Address [address] [place] [address] Phone [phone] Care Team Providers Care Chute Tapper Name Role Phone Debbie Otero PA-C Primary Care Provider [phone] Reason for Visit * Reason Onset Date Comments Nurse Telephone Follow Up 01/21/2024 L4/5 i nterlaminar epidural steroid injection on the right side 12/23/23 Encounter Details Date Type Department Care Team (Late st Contact Info) Description 01/21/2024 11:00 AM EDT Scheduled Telephone Interventional Pain Center, [facility] [address] [facility] [address] [facility] Nurse Phone Call Interventional Pain [facility] [address] [facility] [address] Allergies Active Allergy Reactions Criticality Noted Date [...] as of this encounter (statuses as of 01/21/2024) Medications Medication Sig Dispensed Refills Start Date [...] Active Additional Information Patient taking differently:25 mg [id number], Reported on 12/06/2023 PreserVision AREDS 2+Multi Vit [...] as of this encounter (statuses as of 01/21/2024) Active Problems Problem Noted Date Diagnosed Date [...] with perforation 023 Overview: Admission to [facility] 10/28. Last Assessment & Plan: Stable. 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 [...] as of this encounter (statuses as of 01/21/2024) Resolved Problems Problem Noted Date Diagnosed Date [...] as of this encounter (statuses as of 01/21/2024) Immunizations Name Administration Dates Next Due COVID-19 mRNA, LNP-s, No Pre serve, 2-Dose Series ([employer]amars) 07/07/2021,10/04/2020,09/07/2020 Hepatitis B, 20+ yrs 11/05/2004,07/08/1995 PPD 01/25/2008 Pneumococcal Conjugate Vacc, 13 Valent (Prevnar) 06/10/2015 Pneumococcal Conjugate Vacci ne, 20-valent ([id number]) 06/06/2023 Pneumococcal Polysaccharide PPV23 (Pneumovax) 06/07/2019,12/26/2007 Seasonal [...] encounter Miscellaneous Notes * Telephone Encounter - Polina Patten LPN - 01/21/2024 10:39 AM EDT Spoke with Claudette WADE and she is aware to call the office when patients pain returns. * Telephone Encounter - Polina Patten LPN - 01/21/2024 8:46 AM EDT L4/5 interlaminar epidural steroid injection on the right side 12/23/23 Unable to get a percentage of pain reduction from the patient or SHERI Wilkins. Claudette stated that patient has not mentioned much pain from back or legs. Mostly having pain in shoulders. Following with orthopedics. Please advise if you want to see patient back in the office. * Telephone Encounter - Polina Patten LPN - 01/21/2024 8:28 AM EDT L4/5 interlaminar epidural steroid injection on the right side 12/23/23 Attempted to contact Claudette to follow up on patient injection. No answer, left message for her to return call to the office. documented in this encounter Plan of Treatment Upcoming Encounters Date Type Department Care Team (Late st Contact Info) Description 01/22/2024 9:10 AM EDT Office Visit [place] [address] [facility] [phone] Lavern Gomez DO [address] [place] [address] 01/22/2024 11:40 AM EDT Office Visit [place] [address] [facility] [phone] Debbie Otero PA-C [address] [place] [address] 01/23/2024 10:00 AM EDT Home Visit [facility] [address] [facility] [place] [address] Sonja Robledo, RN [address] [facility] [place] [address] 02/04/2024 1:30 PM EDT Office Visit Cardiology, [facility] [address] [facility] [place] [address] Patricia Knott CRNP [address] [place] [address] 03/10/2024 11:00 AM EDT Office Visit [place] [address] [facility] [phone] Debbie Otero PA-C [address] [facility] [phone] 03/31/2024 11:00 AM EDT Laboratory Laboratory, [place] [address] [facility] [phone] [place], Laboratory [address] [facility], [place] [phone] 04/07/2024 2:00 PM EDT Office Visit Hematology/Oncology [facility] [address] [facility], [place] [phone] Hanane Enamorado CRNP [address] [facility] [place] [address] 04/10/2024 11:20 AM EDT Office Visit Family Practice, [place] [address] [facility] [phone] Debbie Otero PA-C [address] [facility] [phone] 05/05/2024 10:00 AM EDT Nurse Only Ancillary Department, [place] [address] [facility] [phone] [place] Nurse Annual Wellness [address] [facility] [phone] Health Maintenance Due Date Last Done Comments [...] 03/06/2023, Additional history exists GFR 01/12/2025 01/13/2024, 07/07/2023, 11/10/2023, Additional history exists Lipid Panel 09/05/2025 09/05/2020, 06/08, 05/05/2018, Additional history exists DTaP,Tdap,and Td Vaccines (3 - Td or Tdap) 06/27/2030 06/27/2020, 06/01/2013, 04/02/2008, Additional history exists Zoster Vaccines Completed 01/01/2019, 07/10, 06/05/2012 VITAMIN D LEVEL ONCE IN A LIFETIME-USE SMARTSET# [id number] Completed 11/21/2021, 06/06/2020, 02/16/2020, Additional history exists [...] Documents on File Type Date Recorded Patient Barman Expl anation Advance Directives and Living Will 09/26/2023 signed on 08/22/2023 ADVANCE DIRECTIVE / LIVING WILL Power of Airplane Cabin Attendant 09/26/2023 signed on 08/22/2023 POWER OF PLUMBING INSPECTOR HEALTH CARE Healthcare Agents on File Name Relationship Healthcare Agent Relationship Communication Erica Manju Other - (no specific identity) Health Care Barman (appointed verbally by patient or by statute hierarchy) Care Teams Chute Tapper Relationship Specialty Start Date End Date Debbie Otero PA-C [address] [place] [address] PCP - General Physician Batch Freezer Operator 01/19/24 documented as of this encounter
--- OUTSIDE RECORDS SUMMARY | 2024-01-22 18:44 | External Medical Summary | Summary of Care ---
Author Name Unknown Organization [facility] Address [address] [place] [address] Phone [phone] Care Team Providers Care Surveillance Supervisor Name Role Phone Lavern Gomez DO Primary Care Provider [phone] Reason for Visit * Reason Onset Date Comments Medication Question 01/10/2024 Oxycodone HC L 5 mg Encounter Details Date Type Department Care Team (Late st Contact Info) Description 01/10/2024 Telephone [place] [address] [place] [address] Lavern Gomez [address] [place] [address] Medication Question (Oxycodone HCL 5 mg) Allergies Active Allergy Reactions Criticality Noted Date [...] as of this encounter (statuses as of 01/15/2024) Medications Medication Sig Dispensed Refills Start Date [...] Active Additional Information Patient taking differently:25 mg [id number], Reported on 12/06/2023 PreserVision AREDS 2+Multi Vit [...] as of this encounter (statuses as of 01/15/2024) Active Problems Problem Noted Date Diagnosed Date [...] colon with perforation 023 Overview: Admission to [facility] 10/28. Last Assessment & Plan: Stable. Still having diarrhea -Continue Invanz until 11/19/[address] 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 driver Major depressive disorder, recurrent, mild 04/30 Last [...] this will have to come through PCP, [facility] does not participate in chronic pain [...] as of this encounter (statuses as of 01/15/2024) Resolved Problems Problem Noted Date Diagnosed Date [...] as of this encounter (statuses as of 01/15/2024) Immunizations Name Administration Dates Next Due COVID-19 mRNA, LNP-s, No Pre serve, 2-Dose Series (Best Five Reviewed) 07/07/2021,10/04/2020,09/07/2020 Hepatitis B, 20+ yrs 11/05/2004,07/08/1995 PPD 01/25/2008 Pneumococcal Conjugate Vacc, 13 Valent (Prevnar) 06/10/2015 Pneumococcal Conjugate Vacci ne, 20-valent ([id number]) 06/06/2023 Pneumococcal Polysaccharide PPV23 (Pneumovax) 06/07/2019,12/26/2007 Seasonal [...] encounter Miscellaneous Notes * Telephone Encounter - Shereen Magdaleno LPN - 01/15/2024 11:37 AM EDT Called pt, spoke with Leny she states that patient has used both oxycodone and the pain patch together, she states that the pain patch is to maintain pain for the patient but she needs the oxycodone to help when she is in service observer pain. Please advise. * Telephone Encounter - Lavern Gomez DO - 01/10/2024 12:10 PM EDT She is on a pain patch the last time that I know of. She cannot mix oxycodone and the pain patch. * Telephone Encounter - Karolyn Bates LPN - 01/10/2024 11:05 AM EDT Medication question. WE received a fax from [facility] regarding a refill on oxycodone 5 mg,but I didn't see it as a current medication. Is something you want the pt to take and if so it will need a prior auth to be approved by insurance. Thanks documented in this encounter Plan of Treatment Upcoming Encounters Date Type Department Care Team (Late st Contact Info) Description 01/17/2024 2:30 PM EDT Home Visit Care Coordination and Integration [address] [facility] [place] [address] Cintia Bowser, Community Health Asphalt Patcher [address] [place] [facility] [place] [address] 01/21/2024 11:00 AM EDT Scheduled Telephone Interventional Pain Center, [facility] [address] [place] [address] [facility], Nurse Phone Call Interventional Pain [facility] [address] [place] [address] 01/22/2024 9:10 AM EDT Office Visit [place] [address] [facility] [phone] Lavern Gomez DO [address] [place] [address] 01/22/2024 11:40 AM EDT Office Visit [facility] [address] [facility] [phone] Debbie Otero PAYenyC [address] [place] [address] 01/23/2024 10:00 AM EDT Home Visit [facility] [address] [place] [address] Sonja Robledo, RN [address] [place] [address] 02/04/2024 1:30 PM EDT Office Visit Cardiology, [facility] 132 [facility] [place] [address] Patricia Knott CRNP [address] [place] [address] 03/10/2024 11:00 AM EDT Office Visit [facility], [place] [address] [facility] [phone] Debbie Otero PA-C [address] [facility] [address] 03/31/2024 11:00 AM EDT Laboratory Laboratory, [place] [address] [facility] [phone] [facility] [address] [facility] [address] 04/07/2024 2:00 PM EDT Office Visit Hematology/Oncology [facility] [address] [facility] [phone] Hanane Enamorado CRNP [address] [facility] [place] [address] 04/10/2024 11:20 AM EDT Office Visit Family [facility], [place] [address] [facility] [phone] Debbie Otero PA-C [address] [facility] [address] 05/05/2024 10:00 AM EDT Nurse Only Ancillary Department, [place] [address] [facility] [address] [place], Nurse Annual Wellness [address] [facility] [place] [address] Health Maintenance Due Date Last Done Comments [...] D LEVEL ONCE IN A LIFETIME-USE SMARTSET# [id number] Completed 11/21/2021, 06/06/2020, 02/16/2020, Additional history exists [...] on File Type Date Recorded Patient Business Services Officer Expl anation Advance Directives and Living Will 09/26/2023 signed on 08/22/2023 ADVANCE DIRECTIVE / LIVING WILL Power of Data Analysis Manager 09/26/2023 signed on 08/22/2023 POWER OF POULTRY FARM WORKER HEALTH CARE Healthcare Agents on File Name Relationship Healthcare Agent Relationship Communication Erica Nunes Other - (no specific identity) Health Care Business Services Officer (appointed verbally by patient or by statute hierarchy) Care Teams Surveillance Supervisor Relationship Specialty Start Date End Date Lavern Gomez DO [address] [place] [address] PCP - General Family Medicine 10/27/22 documented as of this encounter
--- OUTSIDE RECORDS SUMMARY | 2024-01-22 18:44 | External Medical Summary | Summary of Care ---
Author Name Unknown Organization [facility] Address [address] [place] [address] Phone [phone] Care Team Providers Care Chief Nurse Anesthetist Name Role Phone Lavern Gomez DO Primary Care Provider [phone] Reason for Visit * Reason Onset Date Comments Medication Question 01/10/2024 Oxycodone HC L 5 mg Encounter Details Date Type Department Care Team (Late st Contact Info) Description 01/10/2024 Telephone [place] [address] [place] [address] Lavern Gomez [address] [place] [address] Medication Question (Oxycodone HCL 5 [...] as of this encounter (statuses as of 01/10/2024) Medications Medication Sig Dispensed Refills Start Date [...] Active Additional Information Patient taking differently:25 mg [id number], Reported on 12/06/2023 PreserVision AREDS 2+Multi Vit [...] as of this encounter (statuses as of 01/10/2024) Active Problems Problem Noted Date Diagnosed Date [...] colon with perforation 023 Overview: Admission to [facility] 10/28. Last Assessment & Plan: Stable. 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 Major depressive disorder, recurrent, mild 04/30 Last [...] this will have to come through PCP, [facility] does not participate in chronic [...] as of this encounter (statuses as of 01/10/2024) Resolved Problems Problem Noted Date Diagnosed Date [...] as of this encounter (statuses as of 01/10/2024) Immunizations Name Administration Dates Next Due COVID-19 mRNA, LNP-s, No Pre serve, 2-Dose Series ([employer]) 07/07/2021,10/04/2020,09/07/2020 Hepatitis B, 20+ yrs 11/05/2004,07/08/1995 PPD 01/25/2008 Pneumococcal Conjugate Vacc, 13 Valent (Prevnar) 06/10/2015 Pneumococcal Conjugate Vacci ne, 20-valent ([id number]) 06/06/2023 Pneumococcal Polysaccharide PPV23 (Pneumovax) 06/07/2019,12/26/2007 Seasonal [...] encounter Miscellaneous Notes * Telephone Encounter - Lavern Gomez DO - 01/10/2024 12:10 PM EDT She is on a pain patch the last time that I know of. She cannot mix oxycodone and the pain patch. * Telephone Encounter - Karolyn Bates LPN - 01/10/2024 11:05 AM EDT Medication question. WE received a fax from [facility] regarding a refill on oxycodone 5 [...] Visit Care Coordination and Integration [address] [place] [address] Cintia Bowser, Community Health Band Sawing Machine Operator [address] [place] [address] 01/21/2024 11:00 AM EDT Scheduled Telephone Interventional Pain Center, [facility] [address] [facility] [place] [address] [facility], Nurse Phone Call Interventional Pain [facility] [address] [facility] [place] [address] 01/22/2024 11:40 AM EDT Office Visit Family Practice, [address] [place] [phone] Debbie Otero PA-C [address] [place] [address] 01/23/2024 10:00 AM EDT Home Visit isinger at [facility] 132 [facility] [place] [address] Sonja Robledo RN 132 [facility] [place] [address] 02/04/2024 1:30 PM EDT Office Visit Cardiology, [facility] [address] [facility] [place] [address] Patricia Knott CRNP [address] [facility] [place] [address] 03/10/2024 11:00 AM EDT Office Visit Family [facility], [place] [address] [place] [phone] Debbie Otero PA-C [address] [place] [address] 03/31/2024 11:00 AM EDT Laboratory Laboratory, [place] [address] [facility] [phone] [place], Laboratory [address], [place] [phone] 04/07/2024 2:00 PM EDT Office Visit Hematology/Oncology [facility] [address] [facility], [place] [phone] Hanane Enamorado CRNP [address] [place] [address] 04/10/2024 11:20 AM EDT Office Visit Family Practice, [place] [address] [facility] [phone] Debbie Otero PA-C [address], [place] [phone] 05/05/2024 10:00 AM EDT Nurse Only Ancillary Department, [place] [address] [facility] [phone] [place], Nurse Annual Wellness [address] [facility] [place] [phone] Health Maintenance Due Date Last Done Comments [...] 11/13/2023, 04/07, 03/06/2023, Additional history exists GFR 01/05/2025 01/06/2024, 05/0 11/2023, 08/15/2023, Additional history exists Lipid Panel 09/05/2025 09/05/2020, 06/08, 05/05/2018, Additional history exists DTaP,Tdap,and Td Vaccines (3 - Td or Tdap) 06/27/2030 06/27/2020, 06/01/2013, 04/02/2008, Additional history exists Zoster Vaccines Completed 01/01/2019, 07/10, 06/05/2012 VITAMIN D LEVEL ONCE IN A LIFETIME-USE SMARTSET# [id number] Completed 11/21/2021, 06/06/2020, 02/16/2020, Additional history exists [...] Documents on File Type Date Recorded Patient Landscape Specialist Expl anation Advance Directives and Living Will 09/26/2023 signed on 08/22/2023 ADVANCE DIRECTIVE / LIVING WILL Power of Flight Test Data Acquisition Technician 09/26/2023 signed on 08/22/2023 POWER OF MARKING ROOM SUPERVISOR HEALTH CARE Healthcare Agents on File Name Relationship Healthcare Agent Relationship Communication Erica Nunes Other - (no specific identity) Health Care Landscape Specialist (appointed verbally by patient or by statute hierarchy) Care Teams Chief Nurse Anesthetist Relationship Specialty Start Date End Date Lavern Gomez DO [address] [place] [facility] [place] [facility] [place] [address] PCP - General Family Medicine 10/27/22 documented as of this encounter
--- OUTSIDE RECORDS SUMMARY | 2024-01-22 18:44 | External Medical Summary ---
Author Name Unknown Address Unknown Organization [facility] [place] [address] Laboratory Report Ordering Provider Test Date Status HY,DEPAMPHILIS 01/13/2024 05:56:15 Final Observation Date Value Abnormality Reference (Units ) Status WBC, Total 01/13/2024 05:56:15 8.68 4.00-10.8 0 (K/uL) Final RBC 01/13/2024 05:56:15 3.71 3.85-5.15 (M/uL) Final Hemoglobin 01/13/2024 05:56:15 10.8 Below low normal 12 .0-15.3 (g/dL) Final HCT 01/13/2024 05:56:15 36.4 36.0-45.2 (%) Final MCV 01/13/2024 05:56:15 98.1 81.5-97.5 (fL) Final MCH 01/13/2024 05:56:15 29.1 27.0-34.0 (pg) Final MCHC 01/13/2024 05:56:15 29.7 32.0-36.0 (g/dL) Final RDW 01/13/2024 05:56:15 16.0 11.5-15.5 (%) Final Platelets 01/13/2024 05:56:15 310 140-400 (K /uL) Final MPV 01/13/2024 05:56:15 9.9 6.6-11.1 ( fL) Final Performing Location [facility] [place] [address]
--- OUTSIDE RECORDS SUMMARY | 2024-01-22 18:44 | External Medical Summary | Summary of Care ---
Author Name Unknown Organization [facility] Address [address] [place] [address] Phone [phone] Care Team Providers Care Shipping Agent Name Role Phone Debbie Otero PA-C Primary Care Provider [phone] Reason for Visit * Reason Onset Date Comments Nurse Telephone Follow Up 01/21/2024 L4/5 i nterlaminar epidural steroid injection on the right side 12/23/23 Encounter Details Date Type Department Care Team (Late st Contact Info) Description 01/21/2024 11:00 AM EDT Scheduled Telephone Interventional Pain Center, [facility] [address] [facility] [address] [facility] Nurse Phone Call Interventional Pain [facility] [address] [facility] [address] Allergies Active Allergy Reactions Criticality Noted Date [...] Active Additional Information Patient taking differently:25 mg [id number], Reported on 12/06/2023 PreserVision AREDS 2+Multi Vit [...] perforation 023 Overview: Admission to [facility] 10/28. Last Assessment & Plan: Stable. 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 Claudette stated that patient has not mentioned [...] Description 01/22/2024 9:10 AM EDT Office Visit [facility], [place] [address] [facility], [place] [phone] Lavern Gomez DO [address] [facility], [place] [address] 01/22/2024 11:40 AM EDT Office Visit [facility], [place] [address] [facility], [place] [phone] Debbie Otero PA-C [address] [facility], [place] [address] 01/23/2024 10:00 AM EDT Home Visit [facility] [place] [address] Sonja Robledo RN [facility] [place] [address] 02/04/2024 1:30 PM EDT Office Visit Cardiology, [facility] 132 [facility] [place] [address] Patricia Knott CRNP [address] [facility] [place] [address] 03/10/2024 11:00 AM EDT Office Visit [facility], [place] [address] [facility], [place] [phone] Debbie Otero PA-C [address] [facility] [phone] 03/31/2024 11:00 AM EDT Laboratory Laboratory, [place] [address] [facility] [phone] [place], Laboratory [address] [place] [facility] [place] [address] 04/07/2024 2:00 PM EDT Office Visit Hematology/Oncology [facility] [address] [facility] [phone] Hanane Enamorado, [facility] [address] [place] [address] 04/10/2024 11:20 AM EDT Office Visit [facility] Practice, [place] [address] [facility] [phone] Debbie Otero PA-C [address] [place] [facility] [place] [address] 05/05/2024 10:00 AM EDT Nurse Only Ancillary Department, [place] [address] [place] [address] [place], Nurse Annual Wellness [address] [place] [facility] [place] [address] Health Maintenance Due Date Last Done Comments [...] D LEVEL ONCE IN A LIFETIME-USE SMARTSET# [id number] Completed 11/21/2021, 06/06/2020, 02/16/2020, Additional history exists [...] Documents on File Type Date Recorded Patient Logistics Director Expl anation Advance Directives and Living Will 09/26/2023 signed on 08/22/2023 ADVANCE DIRECTIVE / LIVING WILL Power of Claim Clerk 09/26/2023 signed on 08/22/2023 POWER OF REFRIGERATION UNIT REPAIRER HEALTH CARE Healthcare Agents on File Name Relationship Healthcare Agent Relationship Communication Erica Nunes Other - (no specific identity) Health Care Logistics Director (appointed verbally by patient or by statute hierarchy) Care Teams Shipping Agent Relationship Specialty Start Date End Date Debbie Otero PA-C [address] [facility] [place] [address] PCP - General Physician Engineering Administrator 01/19/24 documented as of this encounter
--- OUTSIDE RECORDS SUMMARY | 2024-01-22 18:44 | External Medical Summary ---
Author Name Unknown Address Unknown Organization [facility] [place] [address] Laboratory Report Ordering Provider Test Date Status JACOB CASTILLO 01/15/2024 06:05:51 Final Warfarin Therapy
INR: 2 .0-3.0 conventional anticoagulation
INR: 2.5- 3.5 high intensity anticoagulation Observation Date Value Abnormality Reference (Units ) Status PT 01/15/2024 06:05:51 29.3 Above high normal 11 .6-15.2 (seconds) Final INR 01/15/2024 06:05:51 2.7 Above high normal 0. 8-1.2 Final Performing Location [facility] [place] [address]
--- OUTSIDE RECORDS SUMMARY | 2024-01-22 18:44 | External Medical Summary ---
Author Name Unknown Address Unknown Organization [facility] [place] [address] Laboratory Report Ordering Provider Test Date Status JACOB CASTILLO 01/13/2024 05:56:15 Final Warfarin Therapy
INR: 2 .0-3.0 conventional anticoagulation
INR: 2.5- 3.5 high intensity anticoagulation Observation Date Value Abnormality Reference (Units ) Status PT 01/13/2024 05:56:15 23.6 Above high normal 11 .6-15.2 (seconds) Final INR 01/13/2024 05:56:15 2.1 Above high normal 0. 8-1.2 Final Performing Location [facility] [place] [address]
--- OUTSIDE RECORDS SUMMARY | 2024-01-22 18:45 | External Medical Summary | Summary of Care ---
Author Name Unknown Organization [facility] Address [address] [place] [address] Phone [phone] Care Team Providers Care Cytotechnologist Name Role Phone Lavern Gomez Primary Care Provider [phone] Reason for Visit * Reason Onset Date Comments Information 01/08/2024 Encounter Details Date Type Department Care Team (Late st Contact Info) Description 01/08/2024 Telephone [facility] [place] [address] [place], [place] [phone] Services, Scheduling [address] [place] [address] Information (////) Allergies Active Allergy Reactions Criticality Noted Date [...] as of this encounter (statuses as of 01/08/2024) Medications Medication Sig Dispensed Refills Start Date [...] Active Additional Information Patient taking differently:25 mg [id number], Reported on 12/06/2023 PreserVision AREDS 2+Multi Vit [...] as of this encounter (statuses as of 01/08/2024) Active Problems Problem Noted Date Diagnosed Date [...] colon with perforation 023 Overview: Admission to [facility] 10/28. Last Assessment & Plan: Stable. 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 Surveillance. Mild persistent asthma without complication 06/08 Last Assessment & Plan: Stable Continue Robb Lobo p.r.nIvelisse, Adv Restless legs syndrome Last Assessment & Plan: Well controlled on Ropinirole 2.5 TID HTN, goal below 130/80 documented as of this encounter (statuses as of 01/08/2024) Resolved Problems Problem Noted Date Diagnosed Date [...] as of this encounter (statuses as of 01/08/2024) Immunizations Name Administration Dates Next Due COVID-19 mRNA, LNP-s, No Pre serve, 2-Dose Series ([employer]) 07/07/2021,10/04/2020,09/07/2020 Hepatitis B, 20+ yrs 11/05/2004,07/08/1995 PPD 01/25/2008 Pneumococcal Conjugate Vacc, 13 Valent (Prevnar) 06/10/2015 Pneumococcal Conjugate Vacci ne, 20-valent ([id number]) 06/06/2023 Pneumococcal Polysaccharide PPV23 (Pneumovax) 06/07/2019,12/26/2007 Seasonal [...] encounter Miscellaneous Notes * Telephone Encounter - Maryse Andres OSA - 01/08/2024 2:54 PM EDT Incoming call form [facility] to cx the appt Bonnie has with [facility] on 01/13 as she is in rehab until 01/14 so we moved appt to 01/16@230 instead when she will be back home documented in this encounter Plan of Treatment Upcoming Encounters Date Type Department Care Team (Late st Contact Info) Description 01/17/2024 2:30 PM EDT Home Visit Care Coordination and Integration [address] [place] [address] Cintia Bowser, Community Health Hotel Night Auditor [address] [place] [address] 01/21/2024 11:00 AM EDT Scheduled Telephone [facility] [address] [place] [address] Miguel Ángel Nurse Phone Call Interventional Pain [facility] [address] [place] [address] 01/22/2024 11:40 AM EDT Office Visit Family Practice, [place] [address] [facility], [place] [phone] Debbie Otero PA-C [address] [facility], [place] [address] 01/23/2024 10:00 AM EDT Home Visit [facility], [facility] [address] [facility] [place] [address] Sonja Robledo RN [address] [place] [address] 02/04/2024 1:30 PM EDT Office Visit Cardiology, [facility] 132 [facility] [place] [address] Patricia Knott CRNP [address] [facility] [address] 03/10/2024 11:00 AM EDT Office Visit [facility], [place] [address] [facility], [place] [phone] Debbie Otero PA-C [address] [facility], [place] [address] 03/31/2024 11:00 AM EDT Laboratory Laboratory, [place] [address] [facility] [phone] [facility] [address] [place] [facility] [place] [address] 04/07/2024 2:00 PM EDT Office Visit Hematology/Oncology [facility] [place] [address] [facility] [phone] Hanane Enamorado CRNP [address] [place] [address] [place] [phone] 04/10/2024 11:20 AM EDT Office Visit Family Practice, [place] [address] [facility], [place] [phone] Debbie Otero PA-C [address] [place] [facility] [place] [address] 05/05/2024 10:00 AM EDT Nurse Only Ancillary Department, [place] [address] [facility], [place] [address] [place], Nurse Annual Wellness [address] [facility] [address] Health Maintenance Due Date Last Done Comments [...] D LEVEL ONCE IN A LIFETIME-USE SMARTSET# [id number] Completed 11/21/2021, 06/06/2020, 02/16/2020, Additional history exists [...] Documents on File Type Date Recorded Patient Engineering Project Manager Expl anation Advance Directives and Living Will 09/26/2023 signed on 08/22/2023 ADVANCE DIRECTIVE / LIVING WILL Power of Pelts Skinner 09/26/2023 signed on 08/22/2023 POWER OF SOC ANALYST HEALTH CARE Healthcare Agents on File Name Relationship Healthcare Agent Relationship Communication Erica Nunes Other - (no specific identity) Health Care Engineering Project Manager (appointed verbally by patient or by statute hierarchy) Care Teams Cytotechnologist Relationship Specialty Start Date End Date Lavern Gomez DO [address] [place] [address] PCP - General Family Medicine 10/27/22 documented as of this encounter
--- OUTSIDE RECORDS SUMMARY | 2024-01-22 18:45 | External Medical Summary ---
Author Name Unknown Address Unknown Organization [facility] [place] [address] Laboratory Report Ordering Provider Test Date Status HY,DEPAMPHILIS 01/07/2024 05:44:13 Final Warfarin Therapy
INR: 2 .0-3.0 conventional anticoagulation
INR: 2.5- 3.5 high intensity anticoagulation Observation Date Value Abnormality Reference (Units ) Status PT 01/07/2024 05:44:13 26.3 Above high normal 11 .6-15.2 (seconds) Final INR 01/07/2024 05:44:13 2.4 Above high normal 0. 8-1.2 Final Performing Location [facility] [place] [address]
--- OUTSIDE RECORDS SUMMARY | 2024-01-22 18:45 | External Medical Summary ---
Author Name Unknown Address Unknown Organization [facility] [place] [place] [address] Laboratory Report Ordering Provider Test Date Status JACOB CASTILLO 01/08/2024 07:35:36 Final Warfarin Therapy
INR: 2 .0-3.0 conventional anticoagulation
INR: 2.5- 3.5 high intensity anticoagulation Observation Date Value Abnormality Reference (Units ) Status PT 01/08/2024 07:35:36 30.1 Above high normal 11 .6-15.2 (seconds) Final INR 01/08/2024 07:35:36 2.8 Above high normal 0. 8-1.2 Final Performing Location [facility] [place] [place] [address]
--- OUTSIDE RECORDS SUMMARY | 2024-01-22 18:45 | External Medical Summary ---
Author Name Unknown Address Unknown Organization [facility] [place] [place] [address] Laboratory Report Ordering Provider Test Date Status JACOB CASTILLO 01/10/2024 06:05:00 Final Warfarin Therapy
INR: 2 .0-3.0 conventional anticoagulation
INR: 2.5- 3.5 high intensity anticoagulation Observation Date Value Abnormality Reference (Units ) Status PT 01/10/2024 06:05:00 32.7 Above high normal 11 .6-15.2 (seconds) Final INR 01/10/2024 06:05:00 3.1 Above high normal 0. 8-1.2 Final Performing Location [facility] [place] [address]
--- OUTSIDE RECORDS SUMMARY | 2024-01-22 18:45 | External Medical Summary ---
Author Name Unknown Address Unknown Organization [facility] [place] [address] Laboratory Report Ordering Provider Test Date Status JACOB CASTILLO 01/06/2024 05:44:49 Final Warfarin Therapy
INR: 2 .0-3.0 conventional anticoagulation
INR: 2.5- 3.5 high intensity anticoagulation Observation Date Value Abnormality Reference (Units ) Status PT 01/06/2024 05:44:49 24.8 Above high normal 11 .6-15.2 (seconds) Final INR 01/06/2024 05:44:49 2.2 Above high normal 0. 8-1.2 Final Performing Location [facility] [place] [address]
--- OUTSIDE RECORDS SUMMARY | 2024-01-22 18:45 | External Medical Summary ---
Author Name Unknown Address Unknown Organization [facility] [place] [address] [place] [address] Laboratory Report Ordering Provider Test Date Status JACOB CASTILLO 01/09/2024 05:10:00 Final Warfarin Therapy
INR: 2 .0-3.0 conventional anticoagulation
INR: 2.5- 3.5 high intensity anticoagulation Observation Date Value Abnormality Reference (Units ) Status PT 01/09/2024 05:10:00 28.8 Above high normal 11 .6-15.2 (seconds) Final INR 01/09/2024 05:10:00 2.7 Above high normal 0. 8-1.2 Final Performing Location [facility] [place] [address] [place] [address]
--- OUTSIDE RECORDS SUMMARY | 2024-01-22 18:45 | External Medical Summary | Summary of Care ---
Author Name Unknown Organization [facility] Address [address] [place] [address] Phone [phone] Care Team Providers Care Producer Assistant Name Role Phone Lavern Gomez Primary Care Provider Encounter Details Date Type Department Care Team (Late st Contact Info) Description 12/25/2023 2:30 PM EDT [facility] [address] [facility] [address] Eugenio Louie PA-C [address] [place] [facility] [address] Cintia Bowser, Community Health Pbx Inspector [address] [place] [address] Hypertensive heart disease with chronic diastolic congestive heart failure (HCC)*; Lymphedema; Major depressive disorder, recurrent, mild (HCC); Parkinson's disease, unspecified whether dyskinesia present, unspecified whether manifestations fluctuate (HCC); Advanced care planning/counseling discussion Allergies Active Allergy Reactions Criticality Noted Date [...] as of this encounter (statuses as of 01/07/2024) Medications Medication Sig Dispensed Refills Start Date [...] in the morning. 100 Tablet 3 05/15/20 23 Active Levothyroxine Sodium 50 MCG Oral Tablet [...] in the morning. 200 Capsule 3 05/15/20 Active hydrOXYzine HCl 25 MG Oral TabletIndications: [...] 60 mg daily. 1 Each 1 05/16/20 23 Active Fluticasone Propionate 50 MCG/ACT Nasal Suspension [...] Active Additional Information Patient taking differently:25 mg [id number], Reported on 12/06/2023 PreserVision AREDS 2+Multi Vit [...] as of this encounter (statuses as of 01/07/2024) Active Problems Problem Noted Date Diagnosed Date [...] -Continue Invanz until 11/19/22 with ID at [facility] -Encouraged hydration Lymphedema 09/07/2022 Last Assessment & [...] 05/07/2018 Last Assessment & Plan: Followed by manager emergency department Major depressive disorder, recurrent, mild 04/30 Last [...] this will have to come through PCP, [facility] does not participate in chronic pain management. 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 Surveillance. Mild persistent asthma without complication 06/08 Last Assessment & Plan: Stable Continue Robb Lobo p.r.n., Adv Restless legs syndrome Last Assessment & Plan: Well controlled on Ropinirole 2.5 TID HTN, goal below 130/80 documented as of this encounter (statuses as of 01/07/2024) Resolved Problems Problem Noted Date Diagnosed Date [...] as of this encounter (statuses as of 01/07/2024) Immunizations Name Administration Dates Next Due COVID-19 mRNA, LNP-s, No Pre serve, 2-Dose Series (CorvisaCloud) 07/07/2021,10/04/2020,09/07/2020 Hepatitis B, 20+ yrs 11/05/2004,07/08/1995 PPD 01/25/2008 Pneumococcal Conjugate Vacc, 13 Valent (Prevnar) 06/10/2015 Pneumococcal Conjugate Vacci ne, 20-valent ([id number]) 06/06/2023 Pneumococcal Polysaccharide PPV23 (Pneumovax) 06/07/2019,12/26/2007 Seasonal [...] 07/02/2023 Does the household have a re lar source of income? (Household - for ages [...] Sign Reading Time Taken Comments Blood Pressure 120/60 12/25/2023 2:29 PM EDT Pulse 67 12/25/2023 2:29 PM EDT Temperature 36.7 C (98 F) 12/25/2023 2:29 PM EDT Respiratory Rate - - Oxygen Saturation 97% 12/25/2023 2:29 PM EDT Inhaled Oxygen Concentration - - Weight - - Height - - Body Mass Index - - documented in this encounter Progress Notes * Eugenio Luoie PA-C - 12/25/2023 2:40 PM EDT Images from the original note were not included. [facility] Problem Oriented Charting Provider Visit Date: 12/25/2023 Time: 2:40 PM [facility] Sub-Program: Primary Care at Home Assessment and Plan #1 Hypertensive heart disease with chronic diastolic congestive heart failure (HCC) (Primary) Assessment & Plan: "RED FLAG" HF Symptoms: [...] Plan BMP Chest X-Ray Additional Comments: stable #2 Lymphedema Assessment & Plan: Recently finished [facility]hed[facility] with [facility] Applying compression pumps on her own, alternates daily #3 Major depressive disorder, recurrent, mild ([facility]) Assessment & Plan: Continue remeron #4 Parkinson's disease, unspecified whether dyskinesia present, unspecified whether manifestations fluctuate ([facility]) Assessment & Plan: Stable on current dose carbidopa/levodopa Additional Medical Decision Making: living at [facility] Legs improving with lymphedema therapy and pumps Working with staff to decrease hoarding in her room Continue to encourage compliance with lymphedema pumps Scheduled appointments in the next 60 days: Future Appointments-next 60 days Date/Time Provider Specialty Dept Phone 12/30/2023 5:40 PM [facility] [phone] 12/31/2023 11:00 AM (Arrive by 10:45 AM) Patricia Knott CRNP Cardiology [phone] 01/14/2024 1:00 PM Cintia Bowser [facility] Health Pbx Inspector Family Medicine [phone] 01/21/2024 11:00 AM Miguel Ángel Nurse Phone Call Interventional Pain [facility] [phone] 01/22/2024 11:40 AM (Arrive by 11:25 AM) Debbie Otero PA-C Family Medicine [phone] 01/23/2024 10:00 AM Sonja Robledo RN [facility] [phone] 03/10/2024 11:00 AM (Arrive by 10:45 AM) Debbie Otero PA-C Family [facility] [phone] 03/31/2024 11:00 AM Dagoberto Laboratory Laboratory [phone] 04/07/2024 2:00 PM (Arrive by 1:45 PM) Hanane Enamorado CRNP Hematology Oncology [phone] 04/10/2024 11:20 AM (Arrive by 11:05 AM) Debbie Otero PA-C Family [facility] [phone] 05/05/2024 10:00 AM Dagoberto, Nurse Annual Wellness Ancillary [phone] A total of 25 minutes was spent face to face (via video-based telemedicine if designated as a telemedicine visit) Subjective Subjective Is this a Telemedicine Visit? Yes, Patient location: HOME. I was not in a hospital or clinic location. After connecting through televideo, patient was verified with two unique identifiers. Patient (or authorized legal employee relations representative) was then informed that this was a Telemedicine visit and being conducted confidentially over secure lines. Methods to assure confidentiality were taken. Patient acknowledged consent and understanding of privacy and security of the Telemedicine visit. The patient agreed to participate. Reason For [facility] Visit: Follow-Up Current Concerns: Bonnie Oneal is a 73 year old female seen today for a [facility] provider visit. 10/29-11/09/23 - [facility] - cellulitis, extraction of 14 teeth with possible sepsis Medical history includes Ehler Danlos syndrome, CHF, chronic pain, dyslipidemia, HTN, hypothyroidism, depression, BRANDIE on CPAP, Parkinsons, PTSD, osteoporosis, and type 2 DM. Today's concerns are: Still having chronic back pain and some pain into left leg Having back pain, left leg pain Starting to "calm down" Worse with movement Taking oxy 2-3x day Recently finished lymphedema therapy with therapist Patient now applying herself, using for one leg at a time - approx 45 mins Bowels regular Some urinary incontinence Denies falls Breathing good Continues to slowly work on decreasing clutter in her room Additional Objective Objective Vitals: 12/25/23 1429 Temp: 36.7 C (98 F) Pulse: 67 SpO2: 97% BP: 120/60 Last Weights: Wt Readings from Last 3 Encounters: 12/18/23 69.6 kg (153 lb 6.4 oz) 11/20/23 81.8 kg (180 lb 6.4 oz) 10/19/23 77.3 kg (170 lb 6.4 oz) Last BPs: BP Readings from Last 4 Encounters: 12/25/23 120/60 12/23/23 139/71 12/20/23 129/75 12/18/23 106/76 General: alert, no distress, and obese Neuro: alert & oriented x 3 with fluent speech Heart: regular rate & rhythm and no murmur Lungs: lungs clear to auscultation, no wheeze, no rales, no rhonchi Abdomen: obese and normal bowel sounds Ext: +chronic lymphedema Lab Review: I have reviewed the following results: Imaging results in the last 6 months XR SHOULDER, 2 OR MORE VIEWS Result Date: 09/19/2023 IMPRESSION 1. Findings consistent with rotator cuff tear. 2. Moderate-severe glenohumeral osteoarthritis. 3. Mild acromioclavicular osteoarthritis. BMP results Recent Labs Units 01/06/24 0544 11/10/23 0632 09/27/23 0930 08/15/23 1123 SODIUM - [facility] mmol/L 139 139 143 139 POTASSIUM - [facility] mmol/L 3.9 4.1 3.6 4.0 CHLORIDE - [facility] mmol/L 101 100 105 101 CO2 - [facility] mmol/L 27 29 27 21* CREATININE - [facility] mg/dL 0.7 0.9 -- 0.8 BUN - [facility] mg/dL 24* 22* -- 26* Lipid panel resultsNo results for input(s): "CHOL", "LDLCALC", "HDL", "TRIG" in the last 03072 hours. CBC results Recent Labs Units 01/06/24 0544 11/10/23 0632 08/15/23 1123 WBC K/uL 7.42 7.85 9.35 HGB g/dL 10.9* 9.6* 12.4 HCT % 36.4 30.0* 40.9 PLT K/uL 240 311 290 Medication Review Meds managed by SANTIAGO Louie PA-C 2:40 PM *Communication sent to PCP (via autofax if non-[facility]), [facility]/Population Health Care Team members,relevant Specialty Care Physicians* * Cintia Bowser Community Health Pbx Inspector - 12/25/2023 2:28 PM EDT Telemedicine visit: Yes Patient location: HOME. I was not in a hospital or clinic location. After connecting through televideo, patient was verified with two unique identifiers. Patient (or authorized legal employee relations representative) was then informed that this was a Telemedicine visit and being conducted confidentially over secure lines. Methods to assure confidentiality were taken. Patient acknowledged consent and understanding of privacy and security of the Telemedicine visit. The patient agreed to participate. Community Health Pbx Inspector (RADHA) documentation: CHW facilitated telehealth appointment with provider Eugenio Bowser- Community Health Worker 1 Support Services/[facility] [email or web address] documented in this encounter Miscellaneous Notes * ACP (Advance Care Planning) - Eugenio Louie PA-C - 01/07/2024 3:36 PM EDT Images from the original note were not included. Patient-centered Communication 12/25/2023 The patient/surrogate voluntarily agreed to participate in advance care planning discussion. They were advised that this is a separate service which may incur out of pocket cost in the form of copayment and/or deductibles. Location: Home Individual(s) present for conversation: Patient Decisions Synopsis SmartLink Most Recent Value Past ~10 years 03/01/2023 15:13 Decisions CPR decision: Patient chooses CPR 03/01/2023 Patient chooses CPR Intubation/Mechanical Ventilation decision: Patient chooses Intubation/mechanical ventilation 03/01/2023 Patient chooses Intubation/mechanical ventilation Non-invasive ventilation or BIPAP decision: Patient chooses non-invasive ventilation. Select interventions below 11/15/2022 Non-Invasive Ventilation Interventions: Oxygen only 11/15/2022 Antibiotic therapy decision: Patient chooses Antibiotic therapy 03/01/2023 Patient chooses Antibiotic therapy Artificial nutrition decision: Patient chooses Artificial nutrition 03/01/2023 Patient chooses Artificial nutrition IV hydration decision: Patient chooses IV hydration 03/01/2023 Patient chooses IV hydration Chemotherapy decision: Undecided about Chemotherapy 11/15/2022 Radiation therapy decision: Undecided about Radiation therapy 11/15/2022 Surgical procedure(s) decision: Patient chooses Surgical procedure 03/01/2023 Patient chooses Surgical procedure Blood transfusion decision: Patient chooses Blood transfusion 11/15/2022 Lab draw decision: Patient chooses Lab draws 11/15/2022 Transport decision: Patient chooses Transport 11/15/2022 Dying at home decision: Patient chooses Dying at home 11/15/2022 Dialysis decision: Patient chooses Dialysis for 6 to 12 months then stop 11/15/2022 Additional Comments Synopsis SmartLink Most Recent Value Past ~10 years 01/07/2024 15:35 Additional Comments Additional Comments: remains full code 01/07/2024 remains full code Discerning What Matters Most to the Patient: Synopsis SmartLink Most Recent Value Past ~10 years 03/01/2023 15:10 Discerning What Matters Most to the Patient In their own words, patient's UNDERSTANDING of their illness is: "if I could just get my shoulder surgery, I could return home" 03/01/2023 "if I could just get my shoulder surgery, I could return home" Their current SYMPTOMS include: Pain;Depression;Reduced overall well being 03/01/2023 Pain;Depression;Reduced overall well being They say their illness has CHANGED THEIR LIFE by: Less enjoyment (quality of life);Financial strain/stress large unpaid bill for current LONGTERM stay 03/01/2023 Less enjoyment (quality of life);Financial strain/stress large unpaid bill for current SANTIAGO stay The patient thinks COMPLICATIONS in the future may be: More pain;More fatigue 11/15/2022 The patient's HOPES are: Maintain current functional abilities;Avoid further hospitalization;Avoid the ICU;Avoid intubation/mechanical ventilation;Avoid the longterm;Avoid symptoms; with dignity (define below) 11/15/2022 with dignity, patient defines as: not lying there and giving up, being able to fight back 11/15/2022 Avoid symptoms include: Pain;Dyspnea;Nausea;Vomiting;Fatigue;Depression;Difficulity moving 11/15/2022 The patient defines LIVING WELL as: being able to live independently in her own home 03/01/2023 being able to live independently in her own home The patient's FEARS/WORRIES about illness are: Going back to the hospital 03/01/2023 Going back to the hospital "Being a vegetable", patient defines as: no brain waves 11/15/2022 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 The patient considers these as 'UNACCEPTABLE OUTCOMES': "Being a vegetable" (define below);Unable to feed themselves;Prolonged hospital stay (define below);Prolonged longterm stay (define below);Prolonged mechanical ventilation (define below) 11/15/2022 Prolonged hospital stay, patient defines as: any time 11/15/2022 Prolonged longterm stay, patient defines as: any time 11/15/2022 Prolonged mechanical ventilation, patient defines as: any time 11/15/2022 The patient's cultural or spiritual BELIEFS that may affect health care decisions: Yazidi, 11/15/2022 Source: Content from Respecting Choices Program Aligning Care With What Matters Most: Synopsis SmartLink Most Recent Value Past ~10 years 03/01/2023 15:13 Aligning Care With What Matters Most Interventions/Choices: CPR;Intubation/mechanical ventilation;Surgical procedure;Antibiotic therapy;Artificial nutrition;IV hydration 03/01/2023 CPR;Intubation/mechanical ventilation;Surgical procedure;Antibiotic therapy;Artificial nutrition;IV hydration Source: Content from Respecting Choices Program 5 minutes spent in direct [id number] discussion wallace, Eugenio Louie PA-C * Assessment & Plan Note - Eugenio Louie PA-C - 01/07/2024 3:31 PM EDT Associated Problem(s): Parkinson's disease (HCC) Stable on current dose carbidopa/levodopa * Assessment & Plan Note - Eugenio Louie PA-C - 01/07/2024 3:31 PM EDT Associated Problem(s): Major depressive disorder, recurrent, mild (HCC) Continue remeron * Assessment & Plan Note - Eugenio Louie PA-C - 01/07/2024 3:30 PM EDT Associated Problem(s): Lymphedema Recently finished [facility] with [facility] Applying compression pumps on her own, alternates daily * Assessment & Plan Note - Eugenio Louie PA-C - 01/07/2024 3:23 PM EDT Associated Problem(s): Hypertensive heart disease with chronic diastolic congestive heart failure (HCC) "RED FLAG" HF Symptoms: Leg Swelling (Examples: [...] Plan BMP Chest X-Ray Additional Comments: stable documented in this encounter Plan of Treatment Upcoming Encounters Date Type Department Care Team (Late st Contact Info) Description 01/14/2024 1:00 PM EDT Home Visit Care Coordination and Integration [address] [place] [address] Cintia Bowser Community Health Pbx Inspector [address] [place] [address] 01/21/2024 11:00 AM EDT Scheduled Telephone Interventional [facility] [address] [facility] [place] [address] [facility], Nurse Phone Call Interventional Mateus Mascorro [address] [place] [id number] 01/22/2024 11:40 AM EDT Office Visit [facility] [place] [address] [phone] Debbie Otero PA-C [address] [facility], [place] [address] 01/23/2024 10:00 AM EDT [facility] Visit [facility] [place] [address] Sonja Robledo RN [address] [facility] [place] [address] 02/04/2024 1:30 PM EDT Office Visit Cardiology, [facility] [address] [facility] [place] [address] Patricia Knott CRNP [address] [facility] [place] [address] 03/10/2024 11:00 AM EDT Office Visit [facility], [place] [address], [place] [phone] Debbie Otero PA-C [address] [facility], [place] [address] 03/31/2024 11:00 AM EDT Laboratory Laboratory, [place] [address], [place] [phone] [place], Laboratory [address] [facility], [place] [address] 04/07/2024 2:00 PM EDT Office Visit Hematology/Oncology Shannan Au Charlo [address] [facility], [place] [phone] Hanane Enamorado CRNP [address] [place] [address] 04/10/2024 11:20 AM EDT Office Visit Family Practice, [place] [address], [place] [phone] Debbie Otero PA-C [address] [facility], [place] [address] 05/05/2024 10:00 AM EDT Nurse Only Ancillary Department, [place] [address] [address] [place], Nurse Annual Wellness [address] [facility] [phone] Health Maintenance Due Date Last Done Comments [...] 03/06/2023, Additional history exists GFR 01/05/2025 01/06/2024, 050 11/2023, 08/15/2023, Additional history exists Lipid Panel 09/05/2025 09/05/2020, 06/08, 05/05/2018, Additional history exists DTaP,Tdap,and Td Vaccines (3 - Td or Tdap) 06/27/2030 06/27/2020, 06/01/2013, 04/02/2008, Additional history exists Zoster Vaccines Completed 01/01/2019, 07/10, 06/05/2012 VITAMIN D LEVEL ONCE IN A LIFETIME-USE SMARTSET# [id number] Completed 11/21/2021, 06/06/2020, 02/16/2020, Additional history exists [...] as of this encounter Visit Diagnoses Diagnosis Hypertensive heart disease with chronic diastolic congestive heart failure (HCC)- Primary Lymphedema Other lymphedema Major depressive disorder, recurrent, mild (HCC) Major depressive disorder, recurrent episode, mild Parkinson's disease, unspecified whether dyskinesia present, unspecified whether manifestations fluctuate (HCC) Advanced care planning/counseling discussion Other specified counseling documented in this encounter Advance Directives Documents on File Type Date Recorded Patient Reservations And Ticketing Agent Expl anation Advance Directives and Living Will 09/26/2023 signed on 08/22/2023 ADVANCE DIRECTIVE / LIVING WILL Power of Loom Changer 09/26/2023 signed on 08/22/2023 POWER OF INSULATOR APPRENTICE HEALTH CARE Healthcare Agents on File Name Relationship Healthcare Agent Relationship Communication Erica Nunes Other - (no specific identity) Health Care Reservations And Ticketing Agent (appointed verbally by patient or by statute hierarchy) Care Teams Producer Assistant Relationship Specialty Start Date End Date Lavern Gomez DO [address] [facility] [place] [address] PCP - General Family Medicine 10/27/22 documented as of this encounter
--- OUTSIDE RECORDS SUMMARY | 2024-01-22 18:45 | External Medical Summary | Summary of Care ---
Author Name Unknown Organization [facility] Address [address] [place] [address] Phone [phone] Care Team Providers Care Doctor Of Medicine Name Role Phone Lavern Gomez DO Primary Care Provider [phone] Reason for Visit * Reason Onset Date Comments Medication Question 01/10/2024 Oxycodone HC L 5 mg Encounter Details Date Type Department Care Team (Late st Contact Info) Description 01/10/2024 Telephone [place] [address] [place] [address] Lavern Gomez [address] [place] [address] Medication Question (Oxycodone HCL 5 [...] Active Additional Information Patient taking differently:25 mg [id number], Reported on 12/06/2023 PreserVision AREDS 2+Multi Vit [...] colon with perforation 023 Overview: Admission to [facility] 10/28. Last Assessment & Plan: Stable. 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 WE received a fax from [facility] regarding a refill on oxycodone 5 [...] Visit Care Coordination and Integration [address] [place] [address] Cintia Bowser, Community Health Wallpaper Consultant [address] [place] [facility] [place] [address] 01/21/2024 11:00 AM EDT Scheduled Telephone Interventional Pain Center, [facility] 132 [facility] [place] [address] [facility], Nurse Phone Call Interventional Pain [facility] 132 [facility] [place] [address] 01/22/2024 11:40 AM EDT Office Visit Family Practice, [address] [place] [phone] Debbie Otero PA-C [address] [place] [address] 01/23/2024 10:00 AM EDT Home Visit isinger at [facility] 132 [facility] [place] [address] Sonja Robledo RN 132 [facility] [place] [address] 02/04/2024 1:30 PM EDT Office Visit Cardiology, [facility] 132 [facility] [place] [address] Patricia Knott CRNP 132 [facility] [place] [address] 03/10/2024 11:00 AM EDT Office Visit Family [facility] [place] [address] [facility] [place] [phone] Debbie Otero PA-C [address] [place] [address] 03/31/2024 11:00 AM EDT Laboratory Laboratory, [place] [address] [facility] [phone] [place], Laboratory [address], [place] [phone] 04/07/2024 2:00 PM EDT Office Visit Hematology/Oncology [facility] [place] 200 [facility], [place] [phone] Hanane Enamorado CRNP [address] [place] [address] 04/10/2024 11:20 AM EDT Office Visit Family Practice, [place] [address] [facility] [phone] Debbie Otero PA-C [address], [place] [phone] 05/05/2024 10:00 AM EDT Nurse Only Ancillary Department, [place] [address] [facility] [phone] [place], Nurse Annual Wellness [address] [facility] [place] [phone] Health Maintenance Due Date Last Done Comments [...] D LEVEL ONCE IN A LIFETIME-USE SMARTSET# [id number] Completed 11/21/2021, 06/06/2020, 02/16/2020, Additional history exists [...] Documents on File Type Date Recorded Patient Continuous Improvement Black Belt Expl anation Advance Directives and Living Will 09/26/2023 signed on 08/22/2023 ADVANCE DIRECTIVE / LIVING WILL Power of Asp Developer 09/26/2023 signed on 08/22/2023 [facility] Healthcare Agents on File Name Relationship Healthcare Agent Relationship Communication Erica Nunes Other - (no specific identity) Health Care Continuous Improvement Black Belt (appointed verbally by patient or by statute hierarchy) Care Teams Doctor Of Medicine Relationship Specialty Start Date End Date Lavern Gomez DO [address] [place] [address] PCP - General Family Medicine 10/27/22 documented as of this encounter
--- OUTSIDE RECORDS SUMMARY | 2024-01-22 18:46 | External Medical Summary | Summary of Care ---
Author Name Unknown Organization [facility] Address [address] [place] [address] Phone [phone] Care Team Providers Care Heading Machine Operator Name Role Phone Benoit Gomez DO Primary Care Provider [phone] Reason for Visit * Reason Onset Date Comments Medication Refill 01/03/2024 Encounter Details Date Type Department Care Team (Late st Contact Info) Description 01/01/2024 Refill [place] [address] [place] [address] Benoit Gomez DO [address] [place] [address] Allergies Active Allergy Reactions Criticality Noted Date [...] as of this encounter (statuses as of 01/03/2024) Medications Medication Sig Dispensed Refills Start Date [...] Active Additional Information Patient taking differently:25 mg [id number], Reported on 12/06/2023 PreserVision AREDS 2+Multi Vit [...] as of this encounter (statuses as of 01/03/2024) Active Problems Problem Noted Date Diagnosed Date [...] colon with perforation 023 Overview: Admission to [facility] 10/28. Last Assessment & Plan: Stable. 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's assistant Major depressive disorder, recurrent, mild 04/30 Last [...] this will have to come through PCP, [facility] does not participate in chronic [...] as of this encounter (statuses as of 01/03/2024) Resolved Problems Problem Noted Date Diagnosed Date [...] as of this encounter (statuses as of 01/03/2024) Immunizations Name Administration Dates Next Due COVID-19 mRNA, LNP-s, No Pre serve, 2-Dose Series ([employer]) 07/07/2021,10/04/2020,09/07/2020 Hepatitis B, 20+ yrs 11/05/2004,07/08/1995 PPD 01/25/2008 Pneumococcal Conjugate Vacc, 13 Valent (Prevnar) 06/10/2015 Pneumococcal Conjugate Vacci ne, 20-valent ([id number]) 06/06/2023 Pneumococcal Polysaccharide PPV23 (Pneumovax) 06/07/2019,12/26/2007 Seasonal [...] Telephone Encounter - Benoit Gomez DO - 01/02/2024 1:00 PM EDTRefused Prescriptions: Disp Refills oxyCODONE HCl 5 MG Oral Tablet (Oxy IR) Sig: every 4 hours as needed. Refused By: BENOIT GOMEZ Reason for Refusal: Managed by another physician * Telephone Encounter - Karolyn Bates LPN - 01/01/2024 8:13 AM EDT Did you pend patient's preferred pharmacy and medication before forwarding?yes Pharmacy: [facility] [address] Pending Prescriptions: Disp Refills oxyCODONE HCl 5 MG Oral Tablet (Oxy IR) Sig: every 4 hours as needed. Last Visit: 12/18/2023 (in office), 11/13/2021 (telemedicine) Next Visit: 01/22/2024 If no future appointments scheduled, and last appointment is greater than a year ago, please schedule patient for a follow-up appointment Last date the medication was ordered: 11/15/2023 Is this request for a controlled substance?Yes, What was the last refill date 11/15/2023 w/ quantity 30 and dosage 5 mg and Urine Drug Screen was completed 09/18/2023 Urine Drug Screen: Results for orders placed [...] Visit Care Coordination and Integration [address] [place] [address] Cintia Bowser Community Health Cigarette Carton Sealer [address] [place] [address] 01/21/2024 11:00 AM EDT Scheduled Telephone Interventional Pain Center, [facility] [address] [place] [address] [facility], Nurse Phone Call Interventional Pain [facility] [address] [place] [address] 01/22/2024 11:40 AM EDT Office Visit Family [facility] [address] [place] [address] Debbie Otero PAYenyC [address] [place] [address] 01/23/2024 10:00 AM EDT [facility] Visit [facility] [place] [place] [address] Sonja Robledo, RN [address] [place] [address] 02/04/2024 1:30 PM EDT Office Visit Cardiology, [facility] [address] [place] [address] Patricia Knott CRNP [address] [place] [phone] 03/10/2024 11:00 AM EDT Office Visit [facility], [place] [address] [facility], [place] [phone] Debbie Otero PA-C [address] [facility], [place] [address] 03/31/2024 11:00 AM EDT Laboratory Laboratory, [place] [address] [facility], [place] [phone] [facility] Laboratory [address] [facility], [place] [address] 04/07/2024 2:00 PM EDT Office Visit Hematology/Oncology [facility] 200 [facility], [place] [phone] Hanane Enamorado CRNP [address] [facility] [place] [address] 04/10/2024 11:20 AM EDT Office Visit [facility], [place] [address] [facility], [place] [phone] Debbie Otero PA-C [address] [facility] [address] 05/05/2024 10:00 AM EDT Nurse Only Ancillary Department, [place] [address] [facility] [phone] [place], Nurse Annual Wellness [address] [facility] [phone] Health Maintenance Due Date Last Done Comments [...] 09/02/2023, Additional history exists GFR 11/09/2024 11/10/2023, 0202/2024, 08/08/2023, Additional history exists TSH 11/12/2024 11/13/2023, 04/07, 03/06/2023, Additional history exists Lipid Panel 09/05/2025 09/05/2020, 06/08, 05/05/2018, Additional history exists DTaP,Tdap,and Td Vaccines (3 - Td or Tdap) 06/27/2030 06/27/2020, 06/01/2013, 04/02/2008, Additional history exists Zoster Vaccines Completed 01/01/2019, 07/10, 06/05/2012 VITAMIN D LEVEL ONCE IN A LIFETIME-USE SMARTSET# [id number] Completed 11/21/2021, 06/06/2020, 02/16/2020, Additional history exists [...] Documents on File Type Date Recorded Patient Window Shade Ring Coverer Expl anation Advance Directives and Living Will 09/26/2023 signed on 08/22/2023 ADVANCE DIRECTIVE / LIVING WILL Power of Mica Machine Operator 09/26/2023 signed on 08/22/[address] [facility] Healthcare Agents on File Name Relationship Healthcare Agent Relationship Communication Reica Manju Other - (no specific identity) Health Care Window Shade Ring Coverer (appointed verbally by patient or by statute hierarchy) Care Teams Heading Machine Operator Relationship Specialty Start Date End Date Benoit Gomez DO [address] [place] [address] PCP - General Family Medicine 10/27/22 documented as of this encounter
--- OUTSIDE RECORDS SUMMARY | 2024-01-22 18:46 | External Medical Summary | Summary of Care ---
Author Name Unknown Organization [facility] Address [address] [place] [address] Phone [phone] Care Team Providers Care Animal Control Officer Name Role Phone Lavern Gomez Primary Care Provider [phone] Reason for Visit * Reason Comments Dosage Adjustment Via Phone (anticoag Cl inic) Encounter Details Date Type Department Care Team (Latest Contact Info) Description 01/02/2024 5:40 PM EDT Anticoagulation [facility], Bernardo Calloway [address] [place] [address] [place] [address] [place] [phone] [address] [facility] [place] [address] Superficial vein thrombosis* Allergies Active Allergy Reactions [...] as of this encounter (statuses as of 01/02/2024) Medications Medication Sig Dispensed Refills Start Date [...] Active Additional Information Patient taking differently:25 mg [id number], Reported on 12/06/2023 PreserVision AREDS 2+Multi Vit [...] as of this encounter (statuses as of 01/02/2024) Active Problems Problem Noted Date Diagnosed Date [...] perforation 023 Overview: Admission to [facility] 10/28. Last Assessment & Plan: Stable. 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 Major depressive disorder, recurrent, mild 04/30 Last [...] as of this encounter (statuses as of 01/02/2024) Resolved Problems Problem Noted Date Diagnosed Date [...] as of this encounter (statuses as of 01/02/2024) Immunizations Name Administration Dates Next Due COVID-19 mRNA, LNP-s, No Pre serve, 2-Dose Series (Jusp) 07/07/2021,10/04/2020,09/07/2020 Hepatitis B, 20+ yrs 11/05/2004,07/08/1995 PPD 01/25/2008 Pneumococcal Conjugate Vacc, 13 Valent (Prevnar) 06/10/2015 Pneumococcal Conjugate Vacci ne, 20-valent ([id number]) 06/06/2023 Pneumococcal Polysaccharide PPV23 (Pneumovax) 06/07/2019,12/26/2007 Seasonal [...] Progress Notes * Cintia Doe RPh - 01/02/2024 2:46 PM EDT Noted, [facility] will follow up at discharge Cintia Doe Rph, Pharm.D. Clinical Pharmacist [facility]) [phone] 01/02/2024,2:47 PM * Rohini Saini biometric screener - 01/02/2024 2:12 PM EDT Spoke with [place] at [facility] lab. Patient is currently admitted at [facility]. Please advise. Thank you, Rohini Saini Clinical Operations Consultant [facility]) 01/02/2024,2:12 PM documented in this encounter Plan of Treatment Upcoming Encounters Date Type Department Care Team (Late st Contact Info) Description 01/14/2024 1:00 PM EDT Home Visit Care Coordination and Integration [address], [place] [phone] Cintia Bowser, Community Health Hand Funnel Coater [address], [place] [phone] 01/21/2024 11:00 AM EDT Scheduled Telephone Interventional Pain Center, [facility] [place] [address] [place], Nurse Phone Call Interventional Pain [facility] [address] [place] [address] 01/22/2024 11:40 AM EDT Office Visit [facility] [place] [address] [facility] [phone] Debbie Otero PA-C [address] [facility] [address] 01/23/2024 10:00 AM EDT Home Visit [place], [facility] [address] [place] [address] Sonja Robledo RN [facility] [place] [address] 02/04/2024 1:30 PM EDT Office Visit Cardiology, [facility] 132 [facility] [place] [address] Patricia Knott CRNP [address] [facility] [place] [address] 03/10/2024 11:00 AM EDT Office Visit [facility] [place] [address] [facility] [phone] Debbie Otero PA-C [address] [facility], [place] [address] 03/31/2024 11:00 AM EDT Laboratory Laboratory, [place] [address] [facility] [phone] [place], Laboratory [address] [facility], [place] [address] 04/07/2024 2:00 PM EDT Office Visit Hematology/Oncology [place] 200 [facility] [place] [phone] Hanane Enamorado CRNP [address] [place] [address] 04/10/2024 11:20 AM EDT Office Visit Family Practice, [place] [address] [facility] [phone] Debbie Otero PA-C [address] [facility] [address] 05/05/2024 10:00 AM EDT Nurse Only Ancillary Department, [place] [address] [facility] [address] [place], Nurse Annual Wellness [address] [facility] [address] Health Maintenance Due Date Last Done Comments [...] D LEVEL ONCE IN A LIFETIME-USE SMARTSET# [id number] Completed 11/21/2021, 06/06/2020, 02/16/2020, Additional history exists [...] Documents on File Type Date Recorded Patient Terrapin Fisher Expl anation Advance Directives and Living Will 09/26/2023 signed on 08/22/2023 ADVANCE DIRECTIVE / LIVING WILL Power of Award Machine Operator 09/26/2023 signed on 08/22/2023 POWER OF INDUSTRIAL ENGINEERING MANAGER HEALTH CARE Healthcare Agents on File Name Relationship Healthcare Agent Relationship Communication Erica Fangbridge Other - (no specific identity) Health Care Terrapin Fisher (appointed verbally by patient or by statute hierarchy) Care Teams Animal Control Officer Relationship Specialty Start Date End Date Lavern Gomez DO [address] [place] [address] PCP - General Family Medicine 10/27/22 documented as of this encounter
--- OUTSIDE RECORDS SUMMARY | 2024-01-22 18:46 | External Medical Summary ---
Author Name Unknown Address Unknown Organization K09:[facility] [place] [address] Laboratory Report Ordering Provider Test Date Status HY,DEPAMPHILIS 01/06/2024 05:44:49 Final Observation Date Value Abnormality Reference (Units ) Status BUN 01/06/2024 05:44:49 24 Above high normal 6-20 (mg/dL) Final Creatinine 01/06/2024 05:44:49 0.7 0.5-1.0 (mg/dL) Final Glomerular filtration rate/1.73 sq M.predicted [Volume Rate/Area] in Serum, Plasma or Blood by Creatinine-based formula (CKD-EPI) 01/06/2024 05:44:49 >90 >=60 (mL/min) Final eGFR is calculated based on the CKD-EPI 2020 equation Sodium 01/06/2024 05:44:49 139 135-146 (m mol/L) Final Potassium 01/06/2024 05:44:49 3.9 3.5-5.1 (m mol/L) Final Cl 01/06/2024 05:44:49 101 98-107 (mm ol/L) Final CO2 01/06/2024 05:44:49 27 22-32 (mmo l/L) Final Anion gap 01/06/2024 05:44:49 11 7-15 (mmol /L) Final Glucose 01/06/2024 05:44:49 90 70-120 (mg /dL) Final Calcium 01/06/2024 05:44:49 8.6 8.4-10.2 ( mg/dL) Final Performing Location [facility] [place] [address]
--- OUTSIDE RECORDS SUMMARY | 2024-01-22 18:46 | External Medical Summary | Summary of Care ---
Author Name Unknown Organization [facility] Address [address] [place] [address] Phone [phone] Care Team Providers Care Flight Attendant/Inflight Supervisor Name Role Phone Lavern Gmoez Primary Care Provider [phone] Reason for Visit * Reason Comments [facility]: Maintenance Encounter Details Date Type Department Care Team (Late st Contact Info) Description 12/06/2023 12:30 PM EDT [facility] [address] [place] [address] Sonja Robledo RN [address] [facility] [place] [address] Allergies Active Allergy Reactions Criticality Noted Date [...] Lillian [facility] 20 MEQ Oral Tablet Extended ReleaseIndicatio ns:Hypokalemia,L oop diuretic causing adverse effect in therapeutic use, initial encounter TAKE TWO TABLETS BY MOUTH IN THE MORNING AND ONE TABLET IN THE EVENING 300 Tablet 3 3 Active Atorvastatin Calcium 20 MG Oral Tablet (Lipitor) Take 1 Tablet by mouth in the morning. 100 Tablet 3 3 Active Levothyroxine Sodium 50 MCG Oral Tablet (Levoxyl)Indicat ions:Hypothyroid ism due to acquired atrophy of thyroid Take 1 Tablet by mouth daily first thing in the morning. (at least 30 min prior to breakfast or other meds) 100 Tablet 3 3 Active Montelukast Sodium 10 MG Oral Tablet (Singulair)Indic ations:Chest tightness Take 1 Tablet by mouth at bedtime. 100 Tablet 3 3 Active Omeprazole 20 MG Oral Capsule Delayed Release (PriLOSEC)Indica tions:Gastroesop hageal reflux disease without esophagitis Take 2 Capsules by mouth in the morning. 200 Capsule 3 3 Active hydrOXYzine HCl 25 MG Oral TabletIndication s:PTSD (post-traumatic stress disorder),Major depressive disorder, recurrent severe [...] Active Fluticasone Propionate 50 MCG/ACT Nasal Suspension (Flonase)Indicat ions:Acute recurrent sinusitis, unspecified location Administer 2 Sprays [...] HFA 108 (90 Base) MCG/ACT Inhalation Aerosol SolutionIndicati ons:Cough INHALE TWO PUFFS BY MOUTH EVERY 6 HOURS NEEDED FOR COUGH, SHORTNESS OF BREATH OR WHEEZING 6.7 g 5 4 Active Carbidopa-Levodo pa 25-100 MG Oral Tablet (Sinemet)Indicat ions:Parkinson's disease (HCC) take One tablet by mouth [...] Active Additional Information Patient taking differently:25 mg [id number], Reported on 12/06/2023 PreserVision AREDS 2+Multi Vit Oral Capsule Take 1 Capsule by mouth in the morning and 1 Capsule before bedtime. Active Loperamide HCl 2 MG Oral Capsule (Anti-Diarrheal) Take 1 Capsule by mouth 4 times a day as needed for Diarrhea. Active Fluticasone-Salm eterol 100-50 MCG/DOSE Inhalation Aerosol Powder Breath Activated (Advair Diskus)Indicatio ns:Chest tightness Inhale 1 Puff by mouth 2 times a day. 60 Each 1 1 12/06/19 24 Discontinued(Med ication List Clean Up) Midodrine HCl 2.5 MG Oral Tablet (Proamatine)Tamia cations:Orthosta tic hypotension Take one and one-half Tablets by mouth in the morning and one and one-half Tablets at noon and one and one-half Tablets before bedtime. 405 Tablet 4 12/06/19 24 Discontinued(Med ication List Clean Up) Mirtazapine 30 MG Oral Tablet (Remeron)Indicat ions:Major depressive disorder, recurrent severe without psychotic features (HCC) Take 1 Tablet by mouth at bedtime. 90 Tablet 4 12/06/19 24 Discontinued(Ref ill) Buprenorphine 15 MCG/HR Transdermal Patch WeeklyIndication s:Fibromyalgia Apply 1 Patch topically to affected area once a week. 4 Patch 4 12/30/19 24 Discontinued Ferrous Sulfate 325 (65 Fe) MG Oral Tablet Delayed Release Take 1 Tablet by mouth in the morning. 12/16/19 24 Discontinued(Ref ill) Docusate Sodium 100 MG Oral Capsule (Colace) Take 1 Capsule by mouth in the morning and 1 Capsule before bedtime. 12/16/19 24 Discontinued(Ref ill) Midodrine HCl 5 MG Oral Tablet (Proamatine) Take 1 Tablet by mouth in the morning and 1 Tablet at noon and 1 Tablet in the evening. 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 Major depressive disorder, recurrent, mild 04/30 [...] this will have to come through PCP, [facility] does not participate in chronic [...] mRNA, LNP-s, No Pre serve, 2-Dose Series (Skilljar) 07/07/2021,10/04/2020,09/07/2020 Hepatitis B, 20+ yrs 11/05/2004,07/08/1995 PPD 01/25/2008 Pneumococcal Conjugate Vacc, 13 Valent (Prevnar) 06/10/2015 Pneumococcal Conjugate Vacci ne, 20-valent ([id number]) 06/06/2023 Pneumococcal Polysaccharide PPV23 (Pneumovax) 06/07/2019,12/26/2007 Seasonal [...] Sign Reading Time Taken Comments Blood Pressure 114/70 12/06/2023 11:05 AM EDT Pulse 60 12/06/2023 11:05 AM EDT Temperature 36.8 C (98.2 F) 12/06/2023 11:05 AM E DT Respiratory Rate 18 12/06/2023 11:05 AM EDT Oxygen Saturation 98% 12/06/2023 11:05 AM EDT Inhaled Oxygen Concentration - - Weight - - Height - - Body Mass Index - - documented in this encounter Progress Notes * Sonja Robledo RN - 12/06/2023 7:14 AM EDT Images from the original note were not included. [facility] Background Visit Date: 12/06/2023 Time: 11:14 AM Name: Bonnie Oneal : 1950 Current Concerns: Pt seen for AVINASH #[address] [facility] 10/29 - 11/08 for tx of cellulitis, extraction of 14 teeth with ongoing infection andconcern for sepsis Transferred to [facility] following hospitalization for further rehab [facility] Getting lymphedema therapy in the [facility] through [facility] They have been working with her to use compression pumps more She is cleaning and rearranging room so that she can apply the pumps independently Continues to have clear to yellow weeping of RLE Wearing tubigrips PT from [facility] came during visit Feels more drainage may be from increased compression from pumps and also pt used twice yesterday when only instructed to use once PT is going to continue to work with her Her BLE edema has improved overall - smaller in size and color improved - no longer red, more lightpurple in color - not warm to touch PT, RN, Patient and [facility] staff had discussion on condition of patient's room and belongings Pt reports she has a hard time allowing anyone to help her PT and this nurse explained that it was vital to keep pathways clean and clear and with hx of cellulitis, she should have housekeeping do vacuuming and sanitizing of carpet, especially with weeping legs Pt verbalized understanding but also became tearful Staff reported that they often help pt clean up area but she becomes upset, crying - then will stayup in the night rummaging through belongings again and there will be things scattered on the floor and throughout the room again as if it was never cleaned up the day prior. They have talked to pt about downsizing her belongings and have helped her go through things but then she becomes tearful and they are not able to get rid of anything Asked if there was somewhere she could store things or if her friend could store them and pt states"it's complicated" BH referral has been placed Physical Exam: BP 114/70 | Pulse 60 | Temp 36.8 C (98.2 F) | Resp 18 | SpO2 98% Pain 0 Physical Exam Constitutional: General: She is not in acute distress. Cardiovascular: Rate and Rhythm: Normal rate and regular rhythm. Pulses: Normal pulses. Pulmonary: Effort: Pulmonary effort is normal. Breath sounds: Normal breath sounds. Abdominal: General: Bowel sounds are normal. Palpations: Abdomen is soft. Musculoskeletal: Right lower leg: Edema present. Left lower leg: Edema present. Skin: General: Skin is warm and dry. Neurological: Mental Status: She is alert and oriented to person, place, and time. Problems/Symptoms: Review of Systems Constitutional: Negative. HENT: Negative. Respiratory: Positive for shortness of breath (KWON - at baseline). Cardiovascular: Positive for leg swelling. Gastrointestinal: Negative. Genitourinary: Negative. Musculoskeletal: Positive for arthralgias and gait problem. Skin: Purple/red discoloration of BLE Psychiatric/Behavioral: The patient is nervous/anxious. Medication Reconciliation: (See medication list) Does patient take medications as ordered: Yes Patient Well Being: PHQ2/9: Patient-Entered [facility] 2019 Msp: Part I And Employment Question 11/30/2023 1:05 PM EDT - Filed by Patient Are you currently employed? No, Retired Date of senior care: 09/27/2005 Do you have a spouse who is currently employed? No, Not (single, , ) Medicare requires that we periodically ask the following questions. Are you receiving benefits under the Black Lung Benefits Act (BL)? No Was the illness/injury due to a work-related accident/condition? No Are you receiving treatment for an injury or illness covered under no-fault (and/or medical-paymentcoverage) including premises or automobile? No Are you receiving treatment for an injury, or illness, for which another democrat may be liable? No Are you entitled to Medicare based on: Age? Yes End-stage renal disease (ESRD)? No Patient-Entered Msp: Zhe-Scssqvrqoz-Agzr Primary Branch Calculation (range: 0 - 5) 1 Do you have group health plan (GHP) coverage based on your own current employment or the employmentof your spouse? No Myc Visit Accident Related Question Question 11/30/2023 1:05 PM EDT - Filed by Patient Is this visit related to an accident? (i.e work, motor vehicle) No No change in living situation Denies falls since last visit [facility] Completed this Visit: No. Routine visit and No falls since last visit Reinforcement/Education: Educated on home safety: Create a fall [...] you. Reinforced safety education and fall prevention. and Reinforced medication regimen. Timing., Dosing., and Purspose. Treatment/Plan: Continue meds as prescribed/reviewed Albuterol inhaler prn SOB Compression pumps to LE daily Tubigrips on in am, off in pm Elevate LE as much as possible Keep pathways free of clutter and keep areas clean Have housekeeping help with cleaning floors [facility] for lymphedema therapy Home Interventions Provided: Home Intervention: Other; eval Reinforced current Plan of Care, including self-management and medication regimen Updated Exacerbation Plan Patient's 'Red Flags': Legs becoming hot Increased weakness Fever/chills Patient Needs to Remember: Call [facility] at with any new or worsening health concerns or problems, red flag symptoms. Referrals Needed: Other none Follow Up: Is there cellular connectivity/connectivity in the home? Yes Does the patient have internet in the home? Yes Patient encouraged to call the intake phone number for all urgent but not emergent issues. Is the patient new to [facility] within the last 30 days? No, Assess appropriateness for upcoming telehealth visits. Cancel telehealth visits & schedule home visit with care head orthopedic team physician(s)as indicated. Provider is in agreement with Plan of Care: Yes Scheduled to follow up with patient in 3 weeks with provider, 3 weeks after with RNCM . Sonja Robledo RN 12/06/2023 11:14 AM documented in this encounter Plan of Treatment Upcoming Encounters Date Type Department Care Team (Late st Contact Info) Description 01/02/2024 5:40 PM EDT Anticoagulation [facility], [address] [place] [address] [facility], [facility] [address] [facility] [place] [address] Superficial vein thrombosis* 01/14/2024 1:00 PM EDT Home Visit [facility] [address] [place] [address] [facility] Personal Counselor [address] [place] [address] 01/21/2024 11:00 AM EDT Scheduled Telephone Interventional Pain Center, [facility] [address] [place] [address] Miguel Ángel, Nurse Phone Call Interventional Pain [facility] [address] [place] [address] 01/22/2024 11:40 AM EDT Office Visit [facility] [address] [place] [phone] Debbie Otero, PA-C [address] [place] [address] 01/23/2024 10:00 AM EDT [facility] [address] [place] [address] Sonja Robledo, RN [address] [place] [address] 02/04/2024 1:30 PM EDT Office Visit Cardiology, [facility] [address] [place] [address] Patricia Knott CRNP [address] [place] [address] 03/10/2024 11:00 AM EDT Office Visit [facility], [place] [address] [facility], [place] [phone] Debbie Otero PA-C [address] [facility], [place] [address] 03/31/2024 11:00 AM EDT Laboratory Laboratory, [place] [address] [facility], [place] [phone] [place], Laboratory [address] [facility], [place] [address] 04/07/2024 2:00 PM EDT Office Visit Hematology/Oncolog y [facility] [place] [address] [facility], [place] [phone] Hanane Enamorado CRNP [address] [place], [place] [address] [address] 04/10/2024 11:20 AM EDT Office Visit [facility], [place] [address] [facility], [place] [phone] Debbie Otero PA-C [address] [facility], [place] [address] 05/05/2024 10:00 AM EDT Nurse Only Ancillary Department, [place] [address] [facility], [place] [address] Dagoberto, Nurse Annual Wellness [address] [facility], [place] [address] Health Maintenance Due Date Last Done Comments [...] D LEVEL ONCE IN A LIFETIME-USE SMARTSET# [id number] Completed 11/21/2021, 06/06/2020, 02/16/2020, Additional history exists [...] Documents on File Type Date Recorded Patient Canadian Bacon Tier Expl anation Advance Directives and Living Will 09/26/2023 signed on 08/22/2023 ADVANCE DIRECTIVE / LIVING WILL Power of Pluck Trimmer 09/26/2023 signed on 08/22/2023 POWER OF LEAD ARCHITECT HEALTH CARE Healthcare Agents on File Name Relationship Healthcare Agent Relationship Communication Erica Manju Other - (no specific identity) Health Care Canadian Bacon Tier (appointed verbally by patient or by statute hierarchy) Care Teams Flight Attendant/Inflight Supervisor Relationship Specialty Start Date End Date Lavern Gomez DO [address] [place] [address] PCP - General Family Medicine 10/27/22 documented as of this encounter
--- OUTSIDE RECORDS SUMMARY | 2024-01-22 18:46 | External Medical Summary | Summary of Care ---
Author Name Unknown Organization [facility] Address [address] [place] [address] Phone [phone] Care Team Providers Care Drop Hammer Set Up Operator Name Role Phone Benoit Gomez DO Primary Care Provider [phone] Reason for Visit * Reason Onset Date Comments Medication Refill 01/03/2024 Encounter Details Date Type Department Care Team (Late st Contact Info) Description 01/01/2024 Refill [place] [address] [place] [address] Benoit Gomez DO [address] [place] [address] Allergies Active Allergy Reactions Criticality [...] Active Additional Information Patient taking differently:25 mg [id number], Reported on 12/06/2023 PreserVision AREDS 2+Multi Vit [...] -Continue Invanz until 11/19/22 with ID at [facility] -Encouraged hydration Lymphedema [...] 05/07/2018 Last Assessment & Plan: 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 Major depressive disorder, recurrent, mild 04/30 Last [...] this will have to come through PCP, [facility] does not participate in chronic pain [...] mRNA, LNP-s, No Pre serve, 2-Dose Series (RealDirect) 07/07/2021,10/04/2020,09/07/2020 Hepatitis B, 20+ yrs 11/05/2004,07/08/1995 PPD 01/25/2008 Pneumococcal Conjugate Vacc, 13 Valent (Prevnar) 06/10/2015 Pneumococcal Conjugate Vacci ne, 20-valent ([id number]) 06/06/2023 Pneumococcal Polysaccharide PPV23 (Pneumovax) 06/07/2019,12/26/2007 Seasonal [...] medication before forwarding?yes Pharmacy: [facility] [address] Pending Prescriptions: Disp Refills oxyCODONE HCl [...] Visit [facility] [address] [place] [address] [facility] Neonatal Doctor [address] [place] [address] 01/21/2024 11:00 AM EDT Scheduled Telephone Interventional Pain Center, [facility] [address] [place] [address] [facility], Nurse Phone Call Interventional Pain [facility] [address] [place] [address] 01/22/2024 11:40 AM EDT Office Visit Family [facility] [address] [place] [address] Debbie Otero PAYenyC [address] [place] [address] 01/23/2024 10:00 AM EDT [facility] [place] [address] Sonja Robledo, RN [address] [place] [address] 02/04/2024 1:30 PM EDT Office Visit Cardiology, [facility] [address] [place] [address] Patricia Knott CRNP [address] [place] [phone] 03/10/2024 11:00 AM EDT Office Visit [facility], [place] [address] [facility], [place] [phone] Debbie Otero PA-C [address] [facility], [place] [address] 03/31/2024 11:00 AM EDT Laboratory Laboratory, [place] [address] [facility], [place] [address] [facility] [address] [facility], [place] [address] 04/07/2024 2:00 PM EDT Office Visit Hematology/Oncology [facility] [address] [facility], [place] [address] Hanane Enamorado CRNP [address] [facility] [place] [address] 04/10/2024 11:20 AM EDT Office Visit [facility], [place] [address] [facility], [place] [phone] Debbie Otero PA-C [address] [facility] [address] 05/05/2024 10:00 AM EDT Nurse Only Ancillary Department, [place] [address] [facility] [phone] [place], Nurse Annual Wellness [address] [facility] [id number] Health Maintenance Due Date Last Done Comments [...] D LEVEL ONCE IN A LIFETIME-USE SMARTSET# [id number] Completed 11/21/2021, 06/06/2020, 02/16/2020, Additional history exists [...] Documents on File Type Date Recorded Patient Production Or Plant Engineer Expl anation Advance Directives and Living Will 09/26/2023 signed on 08/22/2023 ADVANCE DIRECTIVE / LIVING WILL Power of Landfill Grader 09/26/2023 signed on 08/22/2023 POWER OF MRI SPECIALIST HEALTH CARE Healthcare Agents on File Name Relationship Healthcare Agent Relationship Communication Erica Manju Other - (no specific identity) Health Care Production Or Plant Engineer (appointed verbally by patient or by statute hierarchy) Care Teams Drop Hammer Set Up Operator Relationship Specialty Start Date End Date Benoit Gomez DO [address] [place] [address] PCP - General Family Medicine 10/27/22 documented as of this encounter
--- OUTSIDE RECORDS SUMMARY | 2024-01-22 18:46 | External Medical Summary ---
Author Name Unknown Address Unknown Organization K09:[facility] [place] [address] Laboratory Report Ordering Provider Test Date Status HY,DEPAMPHILIS 01/06/2024 05:44:49 Final Observation Date Value Abnormality Reference (Units ) Status WBC, Total 01/06/2024 05:44:49 7.42 4.00-10.8 0 (K/uL) Final RBC 01/06/2024 05:44:49 3.67 3.85-5.15 (M/uL) Final Hemoglobin 01/06/2024 05:44:49 10.9 Below low normal 12 .0-15.3 (g/dL) Final HCT 01/06/2024 05:44:49 36.4 36.0-45.2 (%) Final MCV 01/06/2024 05:44:49 99.2 81.5-97.5 (fL) Final MCH 01/06/2024 05:44:49 29.7 27.0-34.0 (pg) Final MCHC 01/06/2024 05:44:49 29.9 32.0-36.0 (g/dL) Final RDW 01/06/2024 05:44:49 16.2 11.5-15.5 (%) Final Platelets 01/06/2024 05:44:49 240 140-400 (K /uL) Final MPV 01/06/2024 05:44:49 10.1 6.6-11.1 ( fL) Final Performing Location [facility] [place] [address]
--- OUTSIDE RECORDS SUMMARY | 2024-01-22 18:46 | External Medical Summary | Summary of Care ---
Author Name Unknown Organization [facility] Address [address] [place] [address] Phone [phone] Care Team Providers Care Cosmetic Chemist Name Role Phone Benoit Gomez DO Primary Care Provider [phone] Encounter Details Date Type Department Care Team (Late st Contact Info) Description 01/01/2024 Refill [facility] [address] [place] [address] Benoit Gomez DO [address] [place] [address] Allergies Active Allergy Reactions Criticality [...] Active Additional Information Patient taking differently:25 mg [id number], Reported on 12/06/2023 PreserVision AREDS 2+Multi Vit [...] colon with perforation 023 Overview: Admission to [facility] 10/28. Last Assessment & Plan: Stable. 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 Major depressive disorder, recurrent, mild 04/30 [...] this will have to come through PCP, [facility] does not participate in chronic [...] mRNA, LNP-s, No Pre serve, 2-Dose Series ([employer]) 07/07/2021,10/04/2020,09/07/2020 Hepatitis B, 20+ yrs 11/05/2004,07/08/1995 PPD 01/25/2008 Pneumococcal Conjugate Vacc, 13 Valent (Prevnar) 06/10/2015 Pneumococcal Conjugate Vacci ne, 20-valent ([id number]) 06/06/2023 Pneumococcal Polysaccharide PPV23 (Pneumovax) 06/07/2019,12/26/2007 Seasonal [...] medication before forwarding?yes Pharmacy: [facility] [address] Pending Prescriptions: Disp Refills oxyCODONE HCl [...] Info) Description 01/02/2024 5:40 PM EDT Anticoagulation [facility], [address] [place] [address] [facility] [address] [facility] [place] [address] 01/14/2024 1:00 PM EDT Home Visit [facility]ination [facility] Integration [address] [place] [address] Cintia Bowser, Community Health Field Sales Associate [address] [place] [address] 01/21/2024 11:00 AM EDT Scheduled Telephone Interventional Pain Center, [facility] [address] [facility] [place] [address] [facility], Nurse Phone Call Interventional Pain [facility] [address] [facility] [place] [address] 01/22/2024 11:40 AM EDT Office Visit [facility] [address] [place] [id number] Debbie Otero PAYenyC [address] [place] [address] 01/23/2024 10:00 AM EDT Home Visit ising at [facility] [address] [facility] [place] [address] Sonja Robledo, RN 132 [facility] [place] [address] 02/04/2024 1:30 PM EDT Office Visit Cardiology, [facility] [address] [place] [address] Patricia Knott CRNP [address] [place] [address] 03/10/2024 11:00 AM EDT Office Visit Family [facility], [place] [address] [facility] [address] Debbie Otero PA-C [address] [facility], [place] [address] 03/31/2024 11:00 AM EDT Laboratory Laboratory, [place] [address] [facility] [address] [facility] Laboratory [address] [facility], [place] [address] 04/07/2024 2:00 PM EDT Office Visit Hematology/Oncology [facility] [address] [facility], [place] [address] Hanane Enamorado CRNP [address] [facility] [place] [address] 04/10/2024 11:20 AM EDT Office Visit [facility], [place] [address] [facility] [address] Debbie Otero PA-C [address] [facility], [place] [address] 05/05/2024 10:00 AM EDT Nurse Only Ancillary Department, [place] [address] [facility] [id number] [place], Nurse Annual Wellness [address] [facility], [place] [id number] Health Maintenance Due Date Last Done Comments [...] 09/02/2023, Additional history exists GFR 11/09/2024 11/10/2023, 02/02/2024, 08/08/2023, Additional history exists TSH 11/12/2024 11/13/2023, 04/07, 03/06/2023, Additional history exists Lipid Panel 09/05/2025 09/05/2020, 06/08, 05/05/2018, Additional history exists DTaP,Tdap,and Td Vaccines (3 - Td or Tdap) 06/27/2030 06/27/2020, 06/01/2013, 04/02/2008, Additional history exists Zoster Vaccines Completed 01/01/2019, 07/10, 06/05/2012 VITAMIN D LEVEL ONCE IN A LIFETIME-USE SMARTSET# [id number] Completed 11/21/2021, 06/06/2020, 02/16/2020, Additional history exists [...] Documents on File Type Date Recorded Patient Material Handler Floorperson Expl anation Advance Directives and Living Will 09/26/2023 signed on 08/22/2023 ADVANCE DIRECTIVE / LIVING WILL Power of Control Systems Engineer 09/26/2023 signed on 08/22/2023 POWER OF TRANSPORT SPECIALIST HEALTH CARE Healthcare Agents on File Name Relationship Healthcare Agent Relationship Communication Erica Nunes Other - (no specific identity) Health Care Material Handler Floorperson (appointed verbally by patient or by statute hierarchy) Care Teams Cosmetic Chemist Relationship Specialty Start Date End Date Benoit Gomez DO [address] [place] [address] PCP - General Family Medicine 10/27/22 documented as of this encounter
[2024-01-22] MEDS: DOCUSATE SODIUM 100 MG CAP PO SCH (19:36)
[2024-01-22] MEDS: MIRTAZAPINE TAB 15 MG TAB PO SCH (19:37)
[2024-01-22] MEDS: SACCHAROMYCES BOULARDII 250 MG CAP PO SCH (19:37)
[2024-01-22] MEDS: rOPINIRole HCL 1 MG TABLET PO SCH (19:37)
[2024-01-22] MEDS: MONTELUKAST SODIUM 10 MG TABLET PO SCH (19:37)
[2024-01-22] MEDS: FLUTICASONE PROPIONATE NA SPR 16 GM BTL SCH (19:38)
[2024-01-22] MEDS ORDERED: NON-FORMULARY MEDICATION (Vit C,E-Zn-Coppr-Lutein-Zeaxan [Preservision Areds-2] 250-90-40- PO SCH (21:00)
[2024-01-22] MEDS: METOPROLOL TARTRATE 25 MG TAB PO SCH (22:29)
[2024-01-22 23:05] LABS: Appearance Urine Cloudy (Clear); Bacteria Urine Automated 4+ (None Seen); Bilirubin Urine Negative (Negative); Blood Urine Trace (Negative); Cast Urine Automated 0-2 /lpf (0-2); Color Urine Yellow; Epithelial Cell Urine Auto 0-2 /hpf (0-2); Glucose Urine UA Negative (Negative); Ketones Urine Trace (Negative); Leukocyte Esterase Urine 3+ (Negative); Nitrite Urine Negative (Negative); Protein Urine Trace (Negative); RBC Urine Automated 0-2 /hpf (0-2); Specific Gravity Urine 1.018 (1.000-1.030); Urobilinogen Urine Negative (Negative); WBC Urine Automated >50 /hpf (0-5); pH Urine 5.5 (4.5-7.5)
[2024-01-22 23:24] LABS: Total Protein Urine Random 38.9 mg/dl (0-11.9)
[2024-01-22 23:29] LABS: Creatinine Urine Random 71.8 mg/dl; Protein Creatinine Ratio Urine 0.5 (0-0.2)
--- OUTSIDE RECORDS SUMMARY | 2024-01-23 00:08 | External Medical Summary | Summary of Care ---
Author Name Unknown Organization [facility] Address [address] [place] [address] Phone [phone] Care Team Providers Care Deicer Repairer Electric Name Role Phone Debbie Otero PA-C Primary Care Provider [phone] Encounter Details Date Type Department Care Team (Late st Contact Info) Description 01/22/2024 9:10 AM EDT Office Visit [place] [address] [place] [address] Lavern Gomez, [address] [place] [address], [place] [id number] Fibromyalgia* Allergies Active Allergy Reactions Criticality Noted [...] as of this encounter (statuses as of 01/22/2024) Medications Medication Sig Dispensed Refills Start Date [...] Active Additional Information Patient taking differently:25 mg [id number], Reported on 12/06/2023 PreserVision AREDS 2+Multi Vit [...] as of this encounter (statuses as of 01/22/2024) Active Problems Problem Noted Date Diagnosed Date [...] perforation 023 Overview: Admission to [facility] 10/28. Last Assessment & Plan: Stable. Still [...] 05/07/2018 Last Assessment & Plan: Followed by adult education teacher Major depressive disorder, recurrent, mild 04/30 [...] this will have to come through PCP, [facility] does not participate in chronic [...] as of this encounter (statuses as of 01/22/2024) Resolved Problems Problem Noted Date Diagnosed Date [...] as of this encounter (statuses as of 01/22/2024) Immunizations Name Administration Dates Next Due COVID-19 mRNA, LNP-s, No Pre serve, 2-Dose Series ([employer]) 07/07/2021,10/04/2020,09/07/2020 Hepatitis B, 20+ yrs 11/05/2004,07/08/1995 PPD 01/25/2008 Pneumococcal Conjugate Vacc, 13 Valent (Prevnar) 06/10/2015 Pneumococcal Conjugate Vacci ne, 20-valent ([id number]) 06/06/2023 Pneumococcal Polysaccharide PPV23 (Pneumovax) 06/07/2019,12/26/2007 Seasonal [...] as of this encounter Progress Notes * Lavern Gomez DO - 01/22/2024 9:32 AM EDT Patient arrived late, and her courtroom deputy or calendar clerk was not able to get her out of the car as she slid out of the passenger seat. Her POA brought her,and she was recenlty dced from [facility] back to [facility]. She has had an number of falls, and her courtroom deputy or calendar clerk has called center care and they have a wait list. Lat night she was severely weak and had diarrhea. Feels light headed. The nursing staff and her courtroom deputy or calendar clerk wasnot able to get her out of the care. Non emergent 911 was called and will take her to the ER for workup of diarrhea and weakness. She needs placed to a facility that is able to provide more care than [facility]. Nursing can you contact our bottle caser so that we can have them speak with Kash bourgeois's psychotherapist social worker after she is dced. documented in this encounter Plan of Treatment Upcoming Encounters Date Type Department Care Team (Late st Contact Info) Description 01/23/2024 10:00 AM EDT Home Visit [facility], [address] [place] [address] Sonja Robledo RN [address] [place] [address] 02/04/2024 1:30 PM EDT Office Visit Cardiology, [facility] [address] [facility] [place] [address] Patricia Knott CRNP [address] [place] [address] 03/10/2024 11:00 AM EDT Office Visit Family [facility], [place] [address] [address] [facility] [address] Debbie Otero PA-C [address] [place] [address] 03/31/2024 11:00 AM EDT Laboratory Laboratory, [place] [address] [place] [address] [facility] [address] [place], [place] [address] 04/07/2024 2:00 PM EDT Office Visit Hematology/Oncology [facility] [address] [facility], [place] [phone] Hanane Enamorado CRNP [address] [place] [address] [place] [address] 04/10/2024 11:20 AM EDT Office Visit [facility], [place] [address] [address] [facility] [place] [address] Debbie Otero PA-C [address] [facility] [place] [address] 05/05/2024 10:00 AM EDT Nurse Only Ancillary Department, [place] [address] [place] [address] [place], Nurse Annual Wellness [address] [facility] [place] [phone] Health Maintenance Due Date Last Done Comments [...] D LEVEL ONCE IN A LIFETIME-USE SMARTSET# [id number] Completed 11/21/2021, 06/06/2020, 02/16/2020, Additional history exists [...] Documents on File Type Date Recorded Patient Combo Welder Expl anation Advance Directives and Living Will 09/26/2023 signed on 08/22/2023 ADVANCE DIRECTIVE / LIVING WILL Power of Microbiology Lab Manager 09/26/2023 signed on 08/22/2023 POWER OF OUTSOLE SPLICER HEALTH CARE Healthcare Agents on File Name Relationship Healthcare Agent Relationship Communication Erica Nunes Other - (no specific identity) Health Care Combo Welder (appointed verbally by patient or by statute hierarchy) Care Teams Deicer Repairer Electric Relationship Specialty Start Date End Date Debbie Otero PA-C [address], [place] [phone] PCP - General Physician Pensions Retirement Plan Specialist 01/19/24 documented as of this encounter
--- NOTE | 2024-01-23 08:42 | Pain Management Consultation ---
Date of Consultation January 23, 2024 Assessment & Plan (1) Nontraumatic epidural hematoma: (2) Bilateral leg weakness: (3) MCC (current) use of anticoagulants: (4) JAEL (acute kidney injury): (5) Unable to care for self: (6) Chronic pain syndrome: (7) Opioid dependence: Substance use status: uncomplicated Qualified Code(s): F11.20 - Opioid dependence, uncomplicated (8) Fibromyalgia: (9) Chronic shoulder pain: Laterality: bilateral Qualified Code(s): M25.511 - Pain in right shoulder; M25.512 - Pain in left shoulder; G89.29 - Other chronic pain Plan 1. Mrs. Oneal does report progressive weakness of the lower extremities and +1 right patellar reflex and no reflexes noted at the Achilles and left patella. Recommend closely monitoring her neurologic status. Discussed worsening weakness with hospitalist. 2. Would not recommend trigger point injections due to her current comorbidities and lack of efficacy. 3. She can continue to follow up with [facility] orthopedics regarding possible shoulder replacements on an outpatient basis. 4. Orthopedic spine surgery Dr. Garg to follow up with patient. 5. Recommend continuing her current pain regimen of Butrans patch and PRN Oxycodone. I have added a Lidocaine patch as well. Nothing to offer interventionally from pain management at this time. Will sign off. Please contact with any questions or concerns. History of Present Illness Reason for Consultation: Shoulder pain, neck pain Attending Physician: Aleksey Joseph MD History of Present Illness Mrs. Oneal is a 73 year old female that has been admitted to the [facility] for bilateral leg weakness, acute kidney injury, and chronic pain in the shoulders. She has received trigger point injections by her PCP with local anesthetic and Kenalog a few times this year into the trapezius musculature which have provided about 75% pain relief for about a week. She was scheduled for the repeat trigger point injections yesterday but could not go to the appointment due to leg weakness and went to the Emergency Department for evaluation. She does see [facility] Orthopedics for her shoulders and told that when her oral infections resolve and she has teeth extracted they will then consider surgery. She is reporting worsening weakness and paresthesias of the legs. Found to have a lumbar epidural hematoma from L4-S1. She denies any injury or fall. Patient is chronically anticoagulated on Coumadin for prior history of pulmonary embolism and atrial fibrillation. No bowel/bladder incontinence, saddle anesthesia. Allergies Allergy/AdvReac Type Severity Reaction Status Date / Time ammonia Allergy Severe FACE, Verified 12/19/23 13:59 LIPS, TONGUE EDEMA buspirone Allergy Severe NEURO Verified 12/19/23 13:59 COMPLICATIONS duloxetine Allergy Intermediate RASH Verified 12/19/23 13:59 ITCHING adhesive Allergy Mild skin tears Verified 12/19/23 13:59 vancomycin Allergy Unknown [facility] Verified 12/19/23 13:59 MED LIST diphenhydramine AdvReac Intermediate RESTLESS Verified 12/19/23 13:59 LEGS gabapentin AdvReac Intermediate MUSCLE Verified 12/19/23 13:59 STIFFNESS lisinopril AdvReac Intermediate cough Verified 12/19/23 13:59 NSAIDS (Non-Steroidal AdvReac Unknown not Verified 12/19/23 13:59 Anti-Inflamma supposed to use-S/P GASTRIC BYPASS venlafaxine AdvReac Unknown AFFECTS Verified 12/19/23 13:59 LEGS Home Medications Medication Instructions Recorded Confirmed Type atorvastatin 20 mg tablet 20 mg PO .@0801/09/22 01/22/24 History buprenorphine 15 mcg/hour weekly 1 patch topical WK 01/09/22 01/22/24 History transdermal patch carbidopa 25 mg-levodopa 100 mg 1 tab PO .0800,1200,1600,199901/09/22 01/22/24 History tablet fluticasone propionate 50 2 spray intranasal .@799,199901/09/22 01/22/24 History mcg/actuation nasal spray,suspension (Flonase Allergy Relief) hydroxyzine HCl 25 mg tablet 25 mg PO QID PRN ANXIETY/ITCHING 01/09/22 01/22/24 History levothyroxine 50 mcg tablet 50 mcg PO .@79901/09/22 01/22/24 History montelukast 10 mg tablet 10 mg PO .@199901/09/22 01/22/24 History Saccharomyces boulardii 250 mg 250 mg PO .@799,199910/03/22 01/22/24 History capsule (Florastor) acetaminophen 500 mg tablet 1,000 mg PO Q8H PRN TEMP >100F/PAIN 12/10/22 History (Tylenol Extra Strength) loperamide 2 mg tablet 2 mg PO Q6H PRN Diarrhea 12/10/22 01/22/24 History mirtazapine 30 mg tablet 30 mg PO .@199912/10/22 01/22/24 History ergocalciferol (vitamin D2) 25,000 50,000 unit PO .WED@0800 03/07/23 01/22/24 History unit capsule omeprazole 20 mg tablet,delayed 40 mg PO .@0807/29/23 01/22/24 History release ropinirole 5 mg tablet 2.5 mg PO .@0800,1500,199907/29/23 01/22/24 History torsemide 20 mg tablet 40 mg PO .@79907/29/23 01/22/24 History potassium chloride 20 mEq oral 20 meq PO DAILY #30 ea 07/31/23 01/22/24 Rx packet ferrous sulfate 325 mg (65 mg 325 mg PO QAM #0 tabs 11/09/23 01/22/24 Rx iron) tablet,delayed release hydrocortisone 2.5 % topical cream 1 applic EXT Q4H PRN #0 grams 11/09/23 01/22/24 Rx with perineal applicator (Proctosol HC) metoprolol tartrate 25 mg tablet 25 mg PO TID #0 tabs 11/09/23 01/22/24 Rx midodrine 2.5 mg tablet 5 mg (2 x 2.5 mg) PO 11/09/23 01/22/24 Rx TID@0800,1300,1800 #0 tabs ondansetron HCl 4 mg tablet 4 mg PO Q8H PRN Nausea And Vomiting 12/19/23 01/22/24 History docusate sodium 100 mg capsule 100 mg PO BID 12/31/23 01/22/24 History loperamide 2 mg capsule 2 mg PO Q6H PRN Diarrhea 12/31/23 01/22/24 History (Anti-Diarrheal (loperamide)) oxycodone 5 mg tablet 5 mg PO Q4H PRN Pain 12/31/23 01/22/24 History vit C 250 mg-vit E 90 mg-zinc 40 1 tab PO BID 12/31/23 01/22/24 History mg-copper 1 [id number] capsule (PreserVision AREDS-2) warfarin 5 mg tablet 5 mg PO PM 12/31/23 01/22/24 History enoxaparin 80 mg/0.8 mL 80 mg subcut DIRECTED 01/22/24 01/22/24 History subcutaneous syringe guaifenesin 600 mg tablet, 600 mg PO DIRECTED 01/22/24 01/22/24 History extended release 12 hr Patient History Medical History Hx of blood clots Thyroid disease Skin cancer Head injury Parkinson disease Acute kidney injury Abdominal hernia Coagulopathy Hypokalemia Weakness Dysphagia History of colon polyps Difficult intravenous access History of intestinal obstruction Bulging of intervertebral disc Osteoporosis Osteoarthritis Renal cyst History of colon polyps Thyroid nodule Hearing deficit ADHD Hyperlipidemia Claustrophobia Thoracic aortic aneurysm follows w/ Dr. Arredondo - evaluated within last 6 mo Surgical History History of incision and drainage (11/04/23) Facial Incision and Drainage and removal of multiple teeth(Not Applicable) - Raphael Mcqueen, DMD Hx of melanoma excision shoulder Self extubation attempted post gastric bypass History of laparotomy History of left knee replacement History of intestinal surgery History of right knee joint replacement History of arthroscopy of left knee History of abdominoplasty + hernia repair History of bilateral breast reduction surgery History of cholecystectomy History of tonsillectomy History of gastric bypass History of esophagogastroduodenoscopy (EGD) History of colonoscopy 2019 Status post biopsy of thyroid gland benign Family History Uncle Stomach cancer Cancer Family/Other Breast cancer Grandfather Cancer Mother Heart disease Hypertension Stroke Grandmother Heart disease Stroke Other No family history of adverse response to anesthesia No pertinent family history in first degree relatives Social History Smoking Status: Never smoker Second Hand Exposure: Yes; Do You Dip or Chew Tobacco: No; Tobacco Cessation Education Requested by Patient: No Hx Alcohol Use: No Hx Substance Use: No Preferred Language: Arabic Communication Ability: Effective Communication Ability Comment: pt is obtunded Visual Impairment: Limited Hearing Ability: Normal Head Of Partner Development Required: No Beliefs That Will Affect Care: None marital status: Single Current Living Situation: Correction Current Living Situation Comment: [place], [place] current occupational status: retired How many Children do You have: 0 Other Information That Helps Us Care for You: No Feels Safe at Home: Yes Safety Concerns: Feels Safe At This Time Diet: regular during the past year weight has: remained stable Assistive Devices: Walker Physical Exam Physical Exam: GENERAL: This is a 73 year old female that appears in moderate pain with any movement. HEAD/FACE: Normocephalic and atraumatic. EYES: No drainage or conjunctival injection. ENT: Nose without bleeding or discharge. Oral mucosa moist. NECK: Mild diffuse tenderness. No focal tender areas. RESPIRATORY: Patient with unlabored breathing. No signs of respiratory distress. CHEST/AXILLA: Chest movement symmetrical. No deformities noted. ABDOMEN/GI: No distension BACK: Not examined. SKIN: [place], warm and dry. No rash noted. SHOULDERS: Diffuse hyperalgesia. Minimal movement of the shoulders. LOWER EXTREMITIES: Lower legs have chronic venous stasis changes. They are warm to the touch. R Hip flexion +3; hip extension +3; knee extension +3; knee flexion +3; dorsiflexion +2; plantar flexion +4; EHL 0 L Hip flexion +2; hip extension +2; knee extension +3; knee flexion +3; dorsiflexion +2; plantar flexion +4; EHL 0 NEURO: Paresthesias and diminished sensation from the knees down. +1 right p atellar reflex. No reflexes noted of left patella and both Achilles. PSYCH: Alert, pleasant. Results (Pain Clinic) Diagnostic Review MRI Findings: MRI OF THE LUMBAR SPINE WITHOUT CONTRAST CLINICAL HISTORY: Bilateral lower extremity weakness. COMPARISON STUDY: Lumbar spine CT July 27, 2022. TECHNIQUE: Utilizing a 1.5 Shayy magnet and dedicated coil, multiplanar, multiecho imaging of the lumbar spine was performed without IV contrast. FINDINGS: For purposes of numbering on this exam, the L5-S1 disc space is assigned to axial image 27 of 30. Lumbar spine levoscoliosis and slight anterolisthesis of L5 on S1 is unchanged. There are no fractures. There is no suspicious marrow replacement. The conus terminates at the mid L1 level. Biliary ductal dilatation is similar to abdominal CT of April 04, 2023 and likely related to cholecystectomy. There is a right renal cyst. Moderate multilevel degenerative changes within lumbar spine are present. Of note, there is a 4.9 x 1.5 x 1 cm intracanalicular T1 and T2 hyperintense collection along the left posterior lateral aspect of the thecal sac at the L4-S1 levels. This results in moderate to severe central canal stenosis with mass effect upon the thecal sac. No additional intracanalicular fluid collections are present. L1-2: There is moderate disc space narrowing with moderate facet arthrosis. The central canal and neural foramen are patent. L2-3: There is moderate to space narrowing with facet arthrosis and ligamentous hypertrophy. There is disc bulge. There is moderate central canal and bilateral neural foraminal stenosis. L3-4: Moderate facet arthrosis is present with ligamentous hypertrophy. There is moderate central canal stenosis. There is moderate bilateral neural foraminal stenosis. L4-5: Left posterior intracanalicular fluid collection is present, as described above. There is moderate to severe central canal stenosis. There is moderate disc space narrowing at this level as well as moderate right and mild left neural foraminal stenosis. L5-S1: Left posterior intracanalicular fluid collection is present, as described above. There is moderate to severe central canal stenosis. There is moderate bilateral neural foraminal stenosis. IMPRESSION: 1. 4.9 x 1.5 x 1 cm left posterior intracanalicular fluid collection at the L4- S1 levels which results in moderate to severe central canal stenosis. Given the signal characteristics, this is consistent with a hematoma. An epidural hematoma is favored however a subdural hematoma could appear similar. Spine surgical consultation is recommended. Findings discussed with Laura Pickard at time of dictation. 2. Moderate multilevel degenerative disc disease and facet arthrosis within the lumbar spine. Moderate narrowing of the central canal and neural foramen at several levels, as described above. 3. Lumbar spine levoscoliosis. 4. No lumbar spine fractures. ACT 112: Negative or not required by law. Electronically signed by: Norris Blackburn M.D. 01/22/2024 2:34 PM
--- NOTE | 2024-01-23 08:56 | Ultrasound Report ---
US renal/blad retro comp CLINICAL HISTORY: JAEL TECHNIQUE: Multiple sonographic real-time images of the kidneys and bladder were obtained. COMPARISON: Comparison is made to CT abdomen pelvis 03/27/2023 FINDINGS: The right kidney measures 9.1 cm in length, and the left kidney measures 10.5 cm in length. The right kidney is normal in size, contour, cortical thickness, and echogenicity. No hydronephrosis is identified. Lower pole cyst is seen. The left kidney is normal in size, contour, cortical thickness and echogenicity. No hydronephrosis i s identified. Small cyst is seen. The bladder is partially distended. Bilateral jets are seen. IMPRESSION: Unremarkable examination and in particular no evidence of hydronephrosis. ACT 112: Negative or not required by law. Electronically signed by: Luis Felipe Luna M.D. 01/23/2024 8:55 AM
[2024-01-23] MEDS: LEVOTHYROXINE SODIUM 50 MCG TABLET PO SCH (08:58)
[2024-01-23] MEDS: PANTOprazole 40 MG TAB PO SCH (08:59)
[2024-01-23] MEDS: FERROUS SULFATE 325 MG TAB PO SCH (08:59)
[2024-01-23] MEDS: BUPRENORPHINE 5 MCG/HR TDSY TD SCH (09:10)
[2024-01-23] MEDS: ATORVASTATIN 20 MG TAB PO SCH (12:53)
[2024-01-23] MEDS: LIDOCAINE 5% 1 PATCH TD SCH (12:54)
[2024-01-23 12:57] LABS: Albumin Level 3.3 gm/dl (3.4-5.0); Anion Gap 10 (3-11); Bilirubin,Total 0.6 mg/dl (0.2-1.0); Carbon Dioxide 20 mmol/L (21-32); Chloride 105 mmol/L (98-107); Potassium 3.8 mmol/L (3.5-5.1); Sodium 135 mmol/L (136-145)
[2024-01-23 13:05] LABS: Alanine Aminotransferase < 3 U/L (7-52); Albumin Globulin Ratio 1.1 (0.9-2); Alkaline Phosphatase 123 U/L (34-104); Aspartate Aminotransferase 9 U/L (13-39); Blood Urea Nitrogen 55 mg/dl (6-23); Creatinine Clr Calc Pharmacy 42.4 ml/min; Est GFR (African American) 64.7 ml/min; Est GFR (Non-African American) 55.8 ml/min; Globulin 2.9 gm/dl (2.5-4.0); Glucose 88 mg/dl (70-99(Fasting)); Total Protein 6.2 gm/dl (6.0-8.3)
[2024-01-23 14:22] LABS: Basophils # (auto) 0.01 K/uL (0.00-0.20); Basophils % (auto) 0.1 %; Eosinophils # (auto) 0.03 K/uL (0.00-0.50); Eosinophils % (auto) 0.4 %; Hematocrit (blood only) 33.5 % (37.0-47.0); Hemoglobin 10.6 g/dl (12.0-16.0); Immature Granulocytes # (auto) 0.36 K/uL (0.01-0.20); Immature Granulocytes % (auto) 4.5 %; Lymphocytes # (auto) 0.33 K/uL (1.20-3.40); Lymphocytes % (auto) 4.1 %; Mean Corpuscular Hemoglobin 29.3 pg (25.0-34.0); Mean Corpuscular Hgb Conc 31.6 g/dL (32.0-36.0); Mean Corpuscular Volume 92.5 fL (80.0-100.0); Mean Platelet Volume 9.9 fL (9.4-12.4); Monocytes % (auto) 3.7 %; Neutrophils % (auto) 87.2 %; Platelet Count 286 K/uL (130-400); RDW Standard Deviation 50.7 fL (36.4-46.3); Red Blood Count 3.62 M/uL (4.20-5.40); White Blood Count 8.03 K/ul (4.8-10.8)
[2024-01-23] MEDS: cefTRIAXone SODIUM 2,000 MG/50 ML BAG IV SCH (14:23)
--- NOTE | 2024-01-23 14:26 | Hospitalist Progress Note ---
Date of Service January 23, 2024 Assessment & Plan (1) Bilateral leg weakness: (2) JAEL (acute kidney injury): (3) Acute pain of both shoulders: Plan Patient is 73-year-old female with PMH POTS, chronic low BP, chronic pain, chronic right shoulder dislocation, Edenilson-Danlos syndrome, protein C deficiency, history DVT, PE, chronic anticoagulation with warfarin, chronic HFpEF, hypothyroidism, chronic anemia, BRANDIE, PTSD, anxiety, paroxysmal supraventricular tachycardia, obesity, history gastric bypass, and others listed below presented to ER with complaint of bilateral weakness of legs x 4-5 days. MRI lumbar spine shows 1. 4.9 x 1.5 x 1 cm left posterior intracanalicular fluid collection at the L4- S1 levels which results in moderate to severe central canal stenosis. Given the signal characteristics, this is consistent with a hematoma. An epidural hematoma is favored however a subdural hematoma could appear similar. Spine surgical consultation is recommended. 2. Moderate multilevel degenerative disc disease and facet arthrosis within the lumbar spine. Moderate narrowing of the central canal and neural foramen at several levels, as described above. 3. Lumbar spine levoscoliosis. 4. No lumbar spine fractures. Epidural hematoma- Noted on MRI as above. unknown chronicity, INR therapeutic on coumadin but already reversed with vitamin K per ortho recommendations ( INR 1.8->1). Discussed with orthopedics again today along with pain management. Does not have any worsening of signs or symptoms from yesterday. Orthopedics will reevaluate but recommended conservative management for now. If worsening, will n eed repeat MRI and possible surgery, which currently does not seem to be the case. Await further input from ortho. PT OT eval UTI- urine clx suggestive of UTI. Could be the cause of her weakness. Started on rocephin pending final urine clx results. JAEL- resolved. Cr 2.17->1. S/p IVF. Home toresemide on hold. Resume as indicated. Renal US unremarkable. H/O PE/DVT, Protein C deficiency, PAF on chronic anticoagulation with coumadin- Given epidural hematoma, her anticoagulation was reversed with Vitamin K, INR 1.8->1 and will not start on further anticoagulation for now. Given her complexity regarding anticoagulation management, will consult hematology for further recommendations per discussion with ortho. Edenilson-Danlos syndrome: History of bilateral shoulder dislocation and chronic pain Patient was to have trigger point inj as outpt- seen by pain management who did not recommend trigger point injections due to her current comorbidities and lack of efficacy. OP Follow up with [facility] [place] [place] Chronic heart failure with preserved ejection fraction (HFpEF): Will resume home torsemide likely tomorrow. Monitor volume status , daily weight, I and O BRANDIE (obstructive sleep apnea): stable, CPAP at HS Chronic hypotension:stable, on midodrine Chronic pain syndrome/opioid independence- continue home butran patch and prn oxycodone along with lidoderm patch. Seen by pain management. DVT ppx- SCD. Chemoppx on hold given her epidural hematoma. Will consider when cleared by ortho. Dispo: TBD. Time spent- Approx 50 mins Admission and Anticipated Discharge Date Admission Date: January 22, 2024 Subjective patient was seen and examined at bedside. Feels about the same. She is concerned about the hematoma but denies any overt bleeding. states she has been on Coumadin for a long time for history of DVT/PE And protein C deficiency and was on Lovenox at one point. She does report intermittent falls due to leg weakness. No fever, chills, chest pain or shortness of breath no nausea or vomiting. Review of Systems Review of Systems: All systems reviewed & are unremarkable except as noted in Subjective Physical Exam Physical Exam: General: Sitting comfortably in bed, not in distress, on room air HEENT: EOMI, JORDAN, MMM Chest: Decreased breath sounds bilaterally, no wheezes or crackles CVS: Regular rate and rhythm, normal heart sounds, no murmur Abdomen: Soft, non tender, not distended, normal bowel sounds Neuro: Awake, alert, oriented, conversing well, non focal. Strength 4+/5 on bilateral dorsiflexion of foot. Skin: Chronic venous stasis changes in bilateral legs, trace LE edema Results & Data Results & Data Vital Signs (Past 12 Hours) Vital Signs Temp Pulse Pulse Resp BP Pulse Ox O2 Del Method 01/23/24 11:41 Room Air 01/23/24 11:35 36.6 C 64 20 93/61 L 99 Room Air 01/23/24 07:44 36.7 C 74 18 99/67 L 95 Room Air 01/23/24 07:30 65 Laboratory Results Short CBC 01/23/24 Range/Units 13:59 WBC 8.03 (4.8-10.8) K/ul Hgb 10.6 L (12.0-16.0) g/dl Hct 33.5 L (37.0-47.0) % Plt Count 286 (130-400) K/uL BMP 01/23/24 12:04 Sodium 135 L Potassium 3.8 Chloride 105 Carbon Dioxide 20 L BUN 55 H D Creatinine 1.00 D Glucose 88 Calcium 9.0 Liver Function 01/23/24 Range/Units 12:04 Total Bilirubin 0.6 (0.2-1.0) mg/dl AST 9 L (13-39) U/L ALT < 3 L (7-52) U/L Alkaline Phosphatase 123 H (34-104) U/L Albumin 3.3 L (3.4-5.0) gm/dl Urine 01/22/24 Range/Units 22:44 Urine Color Yellow Urine Appearance Cloudy A (Clear) Urine pH 5.5 (4.5-7.5) Ur Specific [place] 1.018 (1.000-1.030) Urine Protein Trace H (Negative) Urine Glucose (UA) Negative (Negative)
[2024-01-23 14:51] LABS: Prothrombin Time 10.4 Seconds (9.0-12.0)
--- NOTE | 2024-01-23 17:34 | Orthopedic Progress Note ---
Date of Service January 23, 2024 Subjective Patient seen and examined, she notes that her symptoms are unchanged versus yesterday at exam time. Her main complaint centers around some low back pain, but no radicular symptoms to the lower extremities. Exam reveals the patient to have similar exam as yesterday on exam, specifically she has grade 4-4+ strength for EHL left slightly weaker than the right, 4+ for ankle dorsiflexion and 5/5 plantarflexion, also at least 4+ for knee extension and flexion and hip flexion in the 5/5 range. Patient exhibits more pain to palpation when elevating the leg for straight leg raise but not necessarily radicular pain. Sensation appears to be relatively symmetric though it is somewhat decreased sensory secondary to the cellulitis and edema. Impression: Central left epidural hematoma L4-S1 with stenosis more in the lateral recess region at L4-5, no change in her motor exam or complaints noted today versus yesterday. Plan: Today I spent time talking with the patient, I did review with her what the nature of the issue is relative to her spine. The patient did not note any change in her symptoms since yesterday, and was able to mobilize with physical therapy today though somewhat limited. I discussed with the patient that as there is still some room which I would only rate the stenosis as being moderate at the L4-5 level but more severe in the lateral recess region and she does not have any significant difference in her exam left versus right, I think continued mobilization with physical therapy, holding on the anticoagulation should be continued. I related to her that we might consider a follow-up MRI noting to her that if there was an expansion of the hematoma we would do a decompression, the patient was understanding of these details discussed. Review of Systems All systems reviewed & are unremarkable except as noted in HPI & below. Physical Exam . Results & Data Results & Data Laboratory Results . Diagnostic Findings . PG Care Time/CCT Total # of Minutes Spent Total Time Spent with Patient: Total time spent is greater than 50% in coordination of care (as documented) at patient's floor/unit and/or counseling patient: Coding Level of Care Code 93245 SUB INP/OBS CARE 2/35MIN
[2024-01-23] MEDS: TORSEMIDE 20 MG TAB PO SCH (17:57)
[2024-01-23] MEDS: MELATONIN 3 MG TAB PO PRN (19:45)
[2024-01-24] MEDS: ONDANSETRON INJ 2 MG/ML 2 ML VIAL IV PRN (19:15)
[2024-01-24] MEDS: DICLOFENAC SOD 1% GEL 100 GM TUBE EXT PRN (20:54)
--- NOTE | 2024-01-25 07:05 | Oncology Consultation ---
Date of Consultation January 25, 2024 Assessment & Plan (1) Nontraumatic epidural hematoma: (2) Pulmonary embolism: (3) History of DVT (deep vein thrombosis): Plan Patient with high risk of clotting based on history of VTE and PE as well as reported history of protein C deficiency for which she was on chronic anticoagulation with Coumadin followed by . Presented with lower extremity weakness and found to have epidural hematoma resulting in moderate to severe central canal stenosis. Has been evaluated by orthopedic surgery who recommended conservative management and holding off on anticoagulation. -Although she has high risk of clotting and would ideally like her to resume anticoagulation in [id number] future, she has epidural hematoma causing moderate to severe central canal stenosis which could potentially lead to significant morbidity if bleeding worsens. As such, agree with holding off on resuming anticoagulation for now. -When she is cleared by orthopedic surgery, recommend resuming prophylactic anticoagulation with Heparin/Lovenox. Could consider restarting therapeutic anticoagulation outpatient if she does not experience with rebleeding while on prophylactic anticoagulation Thank you for this consult. Patient will continue to follow-up with Dr. Turner upon discharge from hospital. Please feel free to call if you have any further questions. History of Present Illness Reason for Consultation: Epidural hematoma on coumadin- dorothy merritt Attending Physician: Aleksey Joseph MD History of Present Illness Pleasant 73-year-old female with multiple comorbidities including POTS, Edenilson- Danlos syndrome, protein C deficiency, history DVT, PE, chronic anticoagulation with warfarin, chronic HFpEF, hypothyroidism, chronic anemia, BRANDIE, PTSD, anxiety, paroxysmal supraventricular tachycardia, obesity, history gastric bypass,Who presented to the ER with bilateral lower extremity weakness. MRI lumbar spine obtained on admission revealed 4.9 x 1.5 x 1 cm left posterior intracanalicular fluid collection at the L4-S1 levels which results in moderate to severe central canal stenosis. Given the signal characteristics, this is consistent with a hematoma. An epidural hematoma is favored however a subdural hematoma could appear similar. Was evaluated by orthopedic surgery who recommended conservative management and holding off on anticoagulation. INR was 1.8 on admission and she received Vit K She states that she was diagnosed with DVT about 6 years ago for which she was on Coumadin for after which it was discontinued. Subsequently diagnosed with PE in 2019 and has since been on anticoagulation ever since then. Was initially on Lovenox for about a year prior to being switched to Coumadin. Follows with Dr. Turner of [facility] [place] hematology every 6 months. Allergies Allergy/AdvReac Type Severity Reaction Status Date / Time ammonia Allergy Severe FACE, Verified 12/19/23 13:59 LIPS, TONGUE EDEMA buspirone Allergy Severe NEURO Verified 12/19/23 13:59 COMPLICATIONS duloxetine Allergy Intermediate RASH Verified 12/19/23 13:59 ITCHING adhesive Allergy Mild skin tears Verified 12/19/23 13:59 vancomycin Allergy Unknown ON [facility] Verified 12/19/23 13:59 MED LIST diphenhydramine AdvReac Intermediate RESTLESS Verified 12/19/23 13:59 LEGS gabapentin AdvReac Intermediate MUSCLE Verified 12/19/23 13:59 STIFFNESS lisinopril AdvReac Intermediate cough Verified 12/19/23 13:59 NSAIDS (Non-Steroidal AdvReac Unknown not Verified 12/19/23 13:59 Anti-Inflamma supposed to use-S/P GASTRIC BYPASS venlafaxine AdvReac Unknown AFFECTS Verified 12/19/23 13:59 LEGS Home Medications Medication Instructions Recorded Confirmed Type atorvastatin 20 mg tablet 20 mg PO .@79901/09/22 01/22/24 History buprenorphine 15 mcg/hour weekly 1 patch topical WK 01/09/22 01/22/24 History transdermal patch carbidopa 25 mg-levodopa 100 mg 1 tab PO .0800,1200,1600,199901/09/22 01/22/24 History tablet fluticasone propionate 50 2 spray intranasal .@799,199901/09/22 01/22/24 History mcg/actuation nasal spray,suspension (Flonase Allergy Relief) hydroxyzine HCl 25 mg tablet 25 mg PO QID PRN ANXIETY/ITCHING 01/09/22 01/22/24 History levothyroxine 50 mcg tablet 50 mcg PO .@79901/09/22 01/22/24 History montelukast 10 mg tablet 10 mg PO .@199901/09/22 01/22/24 History Saccharomyces boulardii 250 mg 250 mg PO .@799,199910/03/22 01/22/24 History capsule (Florastor) acetaminophen 500 mg tablet 1,000 mg PO Q8H PRN TEMP >100F/PAIN 12/10/22 01/22/24 History (Tylenol Extra Strength) loperamide 2 mg tablet 2 mg PO Q6H PRN Diarrhea 12/10/22 01/22/24 History mirtazapine 30 mg tablet 30 mg PO .@199912/10/22 01/22/24 History ergocalciferol (vitamin D2) 25,000 50,000 unit PO .WED@0800 03/07/23 01/22/24 History unit capsule omeprazole 20 mg tablet,delayed 40 mg PO .@0807/29/23 01/22/24 History release ropinirole 5 mg tablet 2.5 mg PO .@0800,1500,199907/29/23 01/22/24 History torsemide 20 mg tablet 40 mg PO .@79907/29/23 01/22/24 History potassium chloride 20 mEq oral 20 meq PO DAILY #30 ea 07/31/23 01/22/24 Rx packet ferrous sulfate 325 mg (65 mg 325 mg PO QAM #0 tabs 11/09/23 01/22/24 Rx iron) tablet,delayed release hydrocortisone 2.5 % topical cream 1 applic EXT Q4H PRN #0 grams 11/09/23 01/22/24 Rx with perineal applicator (Proctosol HC) metoprolol tartrate 25 mg tablet 25 mg PO TID #0 tabs 11/09/23 01/22/24 Rx midodrine 2.5 mg tablet 5 mg (2 x 2.5 mg) PO 11/09/23 01/22/24 Rx TID@0800,1300,1800 #0 tabs ondansetron HCl 4 mg tablet 4 mg PO Q8H PRN Nausea And Vomiting 12/19/23 01/22/24 History docusate sodium 100 mg capsule 100 mg PO BID 12/31/23 01/22/24 History loperamide 2 mg capsule 2 mg PO Q6H PRN Diarrhea 12/31/23 01/22/24 History (Anti-Diarrheal (loperamide)) oxycodone 5 mg tablet 5 mg PO Q4H PRN Pain 12/31/23 01/22/24 History vit C 250 mg-vit E 90 mg-zinc 40 1 tab PO BID 12/31/23 01/22/24 History mg-copper 1 [id number] capsule (PreserVision AREDS-2) warfarin 5 mg tablet 5 mg PO PM 12/31/23 01/22/24 History enoxaparin 80 mg/0.8 mL 80 mg subcut DIRECTED 01/22/24 01/22/24 History subcutaneous syringe guaifenesin 600 mg tablet, 600 mg PO DIRECTED 01/22/24 01/22/24 History extended release 12 hr Patient History Medical History Hx of blood clots Thyroid disease Skin cancer Head injury Parkinson disease Acute kidney injury Abdominal hernia Coagulopathy Hypokalemia Weakness Dysphagia History of colon polyps Difficult intravenous access History of intestinal obstruction Bulging of intervertebral disc Osteoporosis Osteoarthritis Renal cyst History of colon polyps Thyroid nodule Hearing deficit ADHD Hyperlipidemia Claustrophobia Thoracic aortic aneurysm follows w/ Dr. Arredondo - evaluated within last 6 mo Surgical History History of incision and drainage (11/04/23) Facial Incision and Drainage and removal of multiple teeth(Not Applicable) - Raphael Mcqueen, DMD Hx of melanoma excision shoulder Self extubation attempted post gastric bypass History of laparotomy History of left knee replacement History of intestinal surgery History of right knee joint replacement History of arthroscopy of left knee History of abdominoplasty + hernia repair History of bilateral breast reduction surgery History of cholecystectomy History of tonsillectomy History of gastric bypass History of esophagogastroduodenoscopy (EGD) History of colonoscopy 2019 Status post biopsy of thyroid gland benign Family History Uncle Stomach cancer Cancer Family/Other Breast cancer Grandfather Cancer Mother Heart disease Hypertension Stroke Grandmother Heart disease Stroke Other No family history of adverse response to anesthesia No pertinent family history in first degree relatives Social History Smoking Status: Never smoker Second Hand Exposure: Yes; Do You Dip or Chew Tobacco: No; Tobacco Cessation Education Requested by Patient: No Hx Alcohol Use: No Hx Substance Use: No Preferred Language: Bahamian Communication Ability: Effective Communication Ability Comment: pt is obtunded Visual Impairment: Limited Hearing Ability: Normal Rope Walker Required: No Beliefs That Will Affect Care: None marital status: Single Current Living Situation: Residential Current Living Situation Comment: [employer] [facility] [employer] [place] current occupational status: retired How many Children do You have: 0 Other Information That Helps Us Care for You: No Feels Safe at Home: Yes Safety Concerns: Feels Safe At This Time Diet: regular during the past year weight has: remained stable Assistive Devices: Walker Results & Data Vital Signs (Past 12 Hours) Vital Signs Temp Pulse Pulse Resp BP Pulse Ox O2 Del Method 01/25/24 04:57 36.8 C 72 18 105/72 98 Room Air 01/24/24 23:09 36.3 C L 64 20 93/61 L 95 Room Air 01/24/24 21:45 68 01/24/24 19:43 36.9 C 82 20 106/72 97 Room Air 01/24/24 19:10 Room Air
[2024-01-25 07:30] LABS: Hematocrit (blood only) 34.9 % (37.0-47.0); Hemoglobin 11.1 g/dl (12.0-16.0); Mean Corpuscular Hemoglobin 29.2 pg (25.0-34.0); Mean Corpuscular Hgb Conc 31.8 g/dL (32.0-36.0); Mean Corpuscular Volume 91.8 fL (80.0-100.0); Mean Platelet Volume 10.1 fL (9.4-12.4); Platelet Count 254 K/uL (130-400); RDW Coefficient of Variation 15.2 % (11.5-14.5); RDW Standard Deviation 50.8 fL (36.4-46.3); White Blood Count 7.07 K/ul (4.8-10.8)
--- NOTE | 2024-01-25 11:30 | Orthopedic Progress Note ---
Date of Service January 25, 2024 Subjective Patient seen and examined, she notes no significant changes in her symptoms with generalized pain in all areas, sensitive to any palpation of the skin in the lower extremities. Exam reveals her to have on changed strength in the lower extremities, at least grade 4-4+ and EHL with good effort, dorsiflexion is 4+ to 5, plantarflexion is 5/5, knee extension and hip flexion are all 5/5, this is all unchanged. Impression: Epidural hematoma L4-5 with some lateral recess stenosis possibly secondary to anticoagulation. Plan: I talked with the patient, I related to her that we will see how she does with therapy which appears to at least be able to get her standing at bedside. Possibility of doing a follow-up MRI in the next day or 2 depending on her progress. Review of Systems All systems reviewed & are unremarkable except as noted in HPI & below. Physical Exam . Results & Data Results & Data Laboratory Results . Diagnostic Findings . PG Care Time/CCT Total # of Minutes Spent Total Time Spent with Patient: Total time spent is greater than 50% in coordination of care (as documented) at patient's floor/unit and/or counseling patient: Coding Level of Care Code 97364 SUB INP/OBS CARE 125MIN
[2024-01-25 12:08] LABS: Calcium 8.7 mg/dl (8.6-10.3); Magnesium 1.4 mg/dl (1.7-2.4); Potassium 3.1 mmol/L (3.5-5.1)
[2024-01-25 12:14] LABS: BUN Creatinine Ratio 40.7 (10-20); Creatinine Clr Calc Pharmacy 52.2 ml/min; Est GFR (African American) 83.5 ml/min; Est GFR (Non-African American) 72.1 ml/min; Phosphorus 2.3 mg/dl (2.5-4.9)
--- NOTE | 2024-01-25 13:30 | Hospitalist Progress Note ---
Date of Service January 25, 2024 Assessment & Plan (1) Nontraumatic epidural hematoma: (2) UTI due to extended-spectrum beta lactamase (ESBL) producing Escherichia coli: (3) Hypokalemia: (4) Hypomagnesemia: (5) Hypophosphatemia: (6) JAEL (acute kidney injury): (7) Paroxysmal atrial fibrillation: (8) Protein C deficiency: (9) Chronic heart failure with preserved ejection fraction (HFpEF): Plan Patient is 73-year-old female with PMH POTS, chronic low BP, chronic pain, chr onic right shoulder dislocation, Edenilson-Danlos syndrome, protein C deficiency, history DVT, PE, chronic anticoagulation with warfarin, chronic HFpEF, hypothyroidism, chronic anemia, BRANDIE, PTSD, anxiety, paroxysmal supraventricular tachycardia, obesity, history gastric bypass, and others listed below presented to ER with complaint of bilateral weakness of legs x 4-5 days. MRI lumbar spine shows 1. 4.9 x 1.5 x 1 cm left posterior intracanalicular fluid collection at the L4- S1 levels which results in moderate to severe central canal stenosis. Given the signal characteristics, this is consistent with a hematoma. An epidural hematoma is favored however a subdural hematoma could appear similar. Spine surgical consultation is recommended. 2. Moderate multilevel degenerative disc disease and facet arthrosis within the lumbar spine. Moderate narrowing of the central canal and neural foramen at several levels, as described above. 3. Lumbar spine levoscoliosis. 4. No lumbar spine fractures. Epidural hematoma at L4-L5- Noted on MRI as above. unknown chronicity, INR therapeutic on coumadin but already reversed with vitamin K per ortho recommendations ( INR 1.8->1). Hemoglobin stable around 11. Seen by orthopedics- plan for repeat MRI in 1-2 days depending on the clinical progress. No worsening or new symptoms. PT OT eval. UTI due to ESBL Ecoli- urine clx shows ESBL E coli. Rocephin switched to Ertapenem, starting 01/24. Hypokalemia- Repleted, recheck in am Hypomagnesemia- Repleted, recheck in am Hypophosphatemia- Repleted, recheck in am JAEL- resolved. Cr 2.17->0.8. S/p IVF. Home torsemide resumed. Renal US unremarkable. H/O PE/DVT, Protein C deficiency, PAF on chronic anticoagulation with coumadin- Given epidural hematoma, her anticoagulation was reversed with Vitamin K, INR 1.8->1 and will not start on further anticoagulation for now until cleared by orthopedics. Discussed with hematology who recommended prophylactic lovenox or heparin when cleared by ortho and discharge on same until she sees her secretary Dr Turner. Edenilson-Danlos syndrome: History of bilateral shoulder dislocation and chronic pain Patient was to have trigger point inj as outpt- seen by pain management who did not recommend trigger point injections due to her current comorbidities and lack of efficacy. [place] [facility] [place] heart failure with preserved ejection fraction (HFpEF): Continue home torsemide. Monitor volume status , daily weight, I and O BRANDIE (obstructive sleep apnea): stable, CPAP at HS Chronic hypotension:stable, on midodrine Chronic pain syndrome/opioid independence- continue home butran patch and prn oxycodone along with lidoderm patch. Seen by pain management. DVT ppx- SCD. Chemoppx on hold given her epidural hematoma. Will consider when cleared by ortho. Dispo: TBD. Time spent- Approx 50 mins Admission and Anticipated Discharge Date Admission Date: January 22, 2024 Subjective Patient was seen and examined at bedside. No new issues. No increasing weakness or neurological symptoms in lower extremities. States she was seen by hematology this morning for anticoagulation discussion. No fever, chills, CP, SOB, N/V. Review of Systems Review of Systems: All systems reviewed & are unremarkable except as noted in Subjective Physical Exam Physical Exam: General: Lying comfortably in bed, not in distress, on room air HEENT: EOMI, JORDAN, MMM Chest: Decreased breath sounds bilaterally, no wheezes or crackles CVS: Regular rate and rhythm, normal heart sounds, no murmur Abdomen: Soft, non tender, not distended, normal bowel sounds Neuro: Awake, alert, oriented, conversing well, unchanged neurological exam Skin: Chronic venous stasis changes in bilateral legs, trace LE edema Results & Data Results & Data Vital Signs (Past 12 Hours) Vital Signs Temp Pulse Pulse Resp BP Pulse Ox O2 Del Method 01/25/24 11:25 37.1 C 67 20 109/73 98 Room Air 01/25/24 10:24 Room Air 01/25/24 08:23 36.6 C 75 20 111/81 96 Room Air 01/25/24 07:30 70 07/20/24 04:57 36.8 C 72 18 105/72 98 Room Air Laboratory Results Short CBC 01/25/24 Range/Units 07:04 WBC 7.07 (4.8-10.8) K/ul Hgb 11.1 L (12.0-16.0) g/dl Hct 34.9 L (37.0-47.0) % Plt Count 254 (130-400) K/uL BMP 01/25/24 07:04 Sodium 138 Potassium 3.1 L Chloride 101 Carbon Dioxide 26 BUN 33 H D Creatinine 0.81 Glucose 102 H Calcium 8.7
[2024-01-25] MEDS: POTASSIUM CHLORIDE CRTAB 20 MEQ TABCR PO SCH (13:59)
[2024-01-25] MEDS: ERTAPENEM SODIUM 1,000 MG in SYRINGE 0 ML IV SCH (13:59)
[2024-01-25] MEDS: MAGNESIUM SULFATE / D5W 1 GM/100 ML BAG IV SCH (14:00)
[2024-01-25] MEDS: POT PHOSPHATE MONOBASIC W/ SOD TAB PO SCH (16:24)
[2024-01-26 07:20] LABS: Hematocrit (blood only) 35.3 % (37.0-47.0); Mean Corpuscular Hemoglobin 28.6 pg (25.0-34.0); Mean Corpuscular Hgb Conc 31.2 g/dL (32.0-36.0); Mean Corpuscular Volume 91.7 fL (80.0-100.0); Mean Platelet Volume 10.2 fL (9.4-12.4); Platelet Count 208 K/uL (130-400); RDW Coefficient of Variation 15.2 % (11.5-14.5); RDW Standard Deviation 50.4 fL (36.4-46.3); Red Blood Count 3.85 M/uL (4.20-5.40)
[2024-01-26 07:53] LABS: BUN Creatinine Ratio 33.7 (10-20); Calcium 8.9 mg/dl (8.6-10.3); Est GFR (African American) 81.1 ml/min; Magnesium 1.9 mg/dl (1.7-2.4); Phosphorus 2.3 mg/dl (2.5-4.9); Potassium 3.5 mmol/L (3.5-5.1)
--- NOTE | 2024-01-26 11:36 | Orthopedic Progress Note ---
Date of Service January 26, 2024 Subjective Patient seen and examined, she notes no significant changes over the last day. She is sitting in the chair awake and alert, and she notes that the most painful thing she has is when she is mobilized relative to the skin in her arms and her legs not necessarily low back or any kind of radicular pain. Exam reveals her to have continued same motor exam in the lower extremities, negative straight leg raise on the left. Impression: Lumbar epidural hematoma nontraumatic. Plan: Due to the need to continue to anticoagulate the patient, we will do a follow-up MRI today to see if there is been any change in the hematoma which I think only resulted in moderate canal stenosis at L4-5 it is more severe in the lateral recess, this is not severe stenosis of the canal. If the hematoma is progressing then surgical intervention may need to be considered if patient is medically able to undergo a surgical procedure versus monitoring the hematoma and anticoagulation. Review of Systems All systems reviewed & are unremarkable except as noted in HPI & below. Physical Exam . Results & Data Results & Data Laboratory Results . Diagnostic Findings . PG Care Time/CCT Total # of Minutes Spent Total Time Spent with Patient: Total time spent is greater than 50% in coordination of care (as documented) at patient's floor/unit and/or counseling patient: Coding Level of Care Code 40124 SUB INP/OBS CARE 2/35MIN
--- NOTE | 2024-01-26 14:19 | Hospitalist Progress Note ---
Date of Service January 26, 2024 Assessment & Plan (1) Nontraumatic epidural hematoma: (2) UTI due to extended-spectrum beta lactamase (ESBL) producing Escherichia coli: (3) Hypokalemia: (4) Hypomagnesemia: (5) Hypophosphatemia: (6) JAEL (acute kidney injury): (7) Paroxysmal atrial fibrillation: (8) Protein C deficiency: (9) Chronic heart failure with preserved ejection fraction (HFpEF): Plan Patient is 73-year-old female with PMH POTS, chronic low BP, chronic pain, chr onic right shoulder dislocation, Edenilson-Danlos syndrome, protein C deficiency, history DVT, PE, chronic anticoagulation with warfarin, chronic HFpEF, hypothyroidism, chronic anemia, BRANDIE, PTSD, anxiety, paroxysmal supraventricular tachycardia, obesity, history gastric bypass, and others listed below presented to ER with complaint of bilateral weakness of legs x 4-5 days. MRI lumbar spine shows 1. 4.9 x 1.5 x 1 cm left posterior intracanalicular fluid collection at the L4- S1 levels which results in moderate to severe central canal stenosis. Given the signal characteristics, this is consistent with a hematoma. An epidural hematoma is favored however a subdural hematoma could appear similar. Spine surgical consultation is recommended. 2. Moderate multilevel degenerative disc disease and facet arthrosis within the lumbar spine. Moderate narrowing of the central canal and neural foramen at several levels, as described above. 3. Lumbar spine levoscoliosis. 4. No lumbar spine fractures. Epidural hematoma at L4-L5- Noted on MRI as above. unknown chronicity, INR therapeutic on coumadin but already reversed with vitamin K per ortho recommendations ( INR 1.8->1). Hemoglobin stable around 11. Seen by orthopedics- plan for repeat MRI today. No worsening or new symptoms. PT OT eval. UTI due to ESBL Ecoli- urine clx shows ESBL E coli. Rocephin switched to Ertapenem, starting 01/24. Hypokalemia- Resolved Hypomagnesemia- Resolved Hypophosphatemia- On supplementation, recheck in am JAEL- resolved. Cr 2.17->0.8. S/p IVF. Home torsemide resumed. Renal US unremarkable. H/O PE/DVT, Protein C deficiency, PAF on chronic anticoagulation with coumadin- Given epidural hematoma, her anticoagulation was reversed with Vitamin K, INR 1.8->1 and will not start on further anticoagulation for now until cleared by orthopedics. Discussed with hematology who recommended prophylactic lovenox or heparin when cleared by ortho and discharge on same until she sees her flame gouger Dr Turner. Edenilson-Danlos syndrome: History of bilateral shoulder dislocation and chronic pain Patient was to have trigger point inj as outpt- seen by pain management who did not recommend trigger point injections due to her current comorbidities and lack of efficacy. [place] [facility] [place] heart failure with preserved ejection fraction (HFpEF): Continue home torsemide. Monitor volume status , daily weight, I and O BRANDIE (obstructive sleep apnea): stable, CPAP at HS Chronic hypotension:stable, on midodrine Chronic pain syndrome/opioid independence- continue home butran patch and prn oxycodone along with lidoderm patch. Seen by pain management. DVT ppx- SCD. Chemoppx on hold given her epidural hematoma. Will consider when cleared by ortho. Dispo: TBD. Repeat MRI pending today. Time spent- Approx 35 mins Admission and Anticipated Discharge Date Admission Date: January 22, 2024 Subjective Patient was seen and examined at bedside. Has intermittent pain in legs but no new issues. States her legs are sensitive and would appreciative any creams to help them. She is frustrated that she keeps getting UTI. Discussed the plan of care including ortho and hemonc recommendations. Review of Systems Review of Systems: All systems reviewed & are unremarkable except as noted in Subjective Physical Exam Physical Exam: General: Lying comfortably in bed, not in distress, on room air HEENT: EOMI, JORDAN, MMM Chest: Decreased breath sounds bilaterally, no wheezes or crackles CVS: Regular rate and rhythm, normal heart sounds, no murmur Abdomen: Soft, non tender, not distended, normal bowel sounds Neuro: Awake, alert, oriented, conversing well, unchanged neurological exam Skin: Chronic venous stasis changes in bilateral legs, trace LE edema Results & Data Results & Data Vital Signs (Past 12 Hours) Vital Signs Temp Pulse Pulse Resp BP Pulse Ox O2 Del Method 01/26/24 13:26 95 H 105/79 01/26/24 11:12 36.6 C 70 20 106/75 94 Room Air 01/26/24 09:00 Room Air 01/26/24 07:27 36.4 C L 71 20 99/69 L 94 Room Air 01/26/24 07:20 74 01/26/24 03:49 36.6 C 67 20 97/69 L 97 Room Air Laboratory Results Short CBC 01/26/24 Range/Units 06:39 WBC 7.30 (4.8-10.8) K/ul Hgb 11.0 L (12.0-16.0) g/dl Hct 35.3 L (37.0-47.0) % Plt Count 208 (130-400) K/uL BMP 01/26/24 06:39 Sodium 139 Potassium 3.5 Chloride 102 Carbon Dioxide 28 BUN 28 H Creatinine 0.83 Glucose 98 Calcium 8.9
--- NOTE | 2024-01-26 15:45 | Magnetic Resonance Report ---
LUMBAR SPINE MRI HISTORY: Follow-up on lumbar epidural hematoma L4-S1 TECHNIQUE: Multiplanar multisequence MRI of the lumbar spine was performed without the use of contras t. COMPARISON: Lumbar spine MRI 01/22/2024. FINDINGS: For the purpose of the report the L5-S1 disc space will be located on axial image 27 of 30. Lumbar spine levoscoliosis and slight anterolisthesis of L5 on S1 is unchanged. There are no fracture s. There is no suspicious marrow replacement. The conus terminates at the mid L1 level. Biliary ducta l dilatation is similar to the prior study. There is a right renal cyst. Moderate multilevel degenera tive changes within lumbar spine are present. Of note, there is a 4.9 x 1.5 x 1 cm intracanalicular T 1 and T2 hyperintense collection along the left posterior lateral aspect of the thecal sac at the L4- S1 levels. This results in moderate to severe central canal stenosis with mass effect upon the thecal sac. This is similar to the prior study. No additional intracanalicular fluid collections are presen t. L1-2: There is moderate disc space narrowing with moderate facet arthrosis. The central canal and pranav ral foramen are patent. L2-3: There is moderate disc space narrowing with facet arthrosis and ligamentous hypertrophy. There is a disc bulge. There is moderate central canal and bilateral neural foraminal stenosis. L3-4: Moderate facet arthrosis is present with ligamentous hypertrophy. There is moderate central can al stenosis. There is moderate bilateral neural foraminal stenosis. L4-5: Left posterior intracanalicular fluid collection is present, as described above. There is moder ate to severe central canal stenosis. There is moderate disc space narrowing at this level as well as moderate right and mild left neural foraminal stenosis. L5-S1: Left posterior intracanalicular fluid collection is present, as described above. There is mode rate to severe central canal stenosis. There is moderate bilateral neural foraminal stenosis. IMPRESSION: 1. No significant change in the 4.9 x 1.5 x 1 cm left posterior intracanalicular fluid collection at the L4-S1 levels which results in moderate to severe central canal stenosis. Given the signal charact eristics, this is consistent with a hematoma. An epidural hematoma is favored however a subdural angela jair could appear similar. 2. Moderate multilevel degenerative disc disease and facet arthrosis within the lumbar spine. Moderat e narrowing of the central canal and neural foramen at several levels, as described above. 3. Lumbar spine levoscoliosis. 4. No lumbar spine fractures. ACT 112: Negative or not required by law. Electronically signed by: Tavares Jaramillo M.D. 01/26/2024 3:43 PM
[2024-01-26] MEDS: AMMONIUM LACTATE 12% LOTION 225 GM BTL EXT SCH (15:56)
[2024-01-27 06:48] LABS: Hematocrit (blood only) 36.1 % (37.0-47.0); Hemoglobin 11.4 g/dl (12.0-16.0); Mean Corpuscular Hemoglobin 29.4 pg (25.0-34.0); Mean Corpuscular Hgb Conc 31.6 g/dL (32.0-36.0); Mean Platelet Volume 10.3 fL (9.4-12.4); Platelet Count 167 K/uL (130-400); RDW Coefficient of Variation 15.3 % (11.5-14.5); RDW Standard Deviation 52.3 fL (36.4-46.3); Red Blood Count 3.88 M/uL (4.20-5.40); White Blood Count 8.32 K/ul (4.8-10.8)
[2024-01-27 07:10] LABS: BUN Creatinine Ratio 29.2 (10-20); Calcium 9.1 mg/dl (8.6-10.3); Creatinine Clr Calc Pharmacy 39.9 ml/min; Est GFR (African American) 60.3 ml/min; Magnesium 1.8 mg/dl (1.7-2.4); Phosphorus 2.6 mg/dl (2.5-4.9); Potassium 3.5 mmol/L (3.5-5.1)
--- NOTE | 2024-01-27 10:36 | Procedure Note ---
Procedure Note Date of Service January 27, 2024 Note CODE AUGIE note: JARAD GHOSH was called around 9:51 AM. The rhythm on the tele strip was PEA. By the time I reached the room CPR has already been started. Patient's potassium, bicarb as well as magnesium were within normal limits in the morning. Total 7 doses of epi, last was given through the ETT. 3 bicarb and 2 calcium were given to the patient Patient was also successfully intubated during CPR. Unfortunately patient was not able to be revived. Patient was pronounced at 10:15 AM Primary team is going to reach out to the family. Please note the above document was generated using voice recognition software. It may contain grammatical, syntax or spelling errors.Any formal questions or concerns about the content, text or information contained within the body of this dictation should be directly addressed to the provider for clarification. Coding CPT Codes Resuscitation - Resuscitation: 64959 Heart/lung resuscitation CPR ([id number]) [facility] Procedure Codes (Charges) Resuscitation Resuscitation: 17984 Heart/lung resuscitation CPR
--- NOTE | 2024-01-27 10:37 | Procedure Note ---
Procedure Note Date of Service January 27, 2024 Note INTUBATION PROCEDURE NOTE: Attending: Dr Flavia Middleton MD Patient was evaluated and plan to intubate was made for cardiopulmonary arrest Sedative agent used: None Paralysis agent used: None Emergent consent was implied given patients rapidly declining clinical status and need for airway protection. The patient was prepared in the appropriate fashion. The patient was easily pre-oxygenated by using [id number] ventilation. With help of glide scope grade 2 vocal cords were visualized and 7.5 Malay ETT was introduced on first attempt to 22 cm at the lip. The stylette was removed and balloon was inflated with 10mL of air. Appropriate Colorimetric change was appreciated for at least 10 breaths. Bilateral chest rise and breath sounds were appreciated without air sounds in the epigastrium. Patient tolerated the procedure well and there were no immediate complications. Chest Xray to follow for confirming placement. Coding CPT Codes Resuscitation - Resuscitation: 05731 Endotracheal Intubation, emergency ([id number][place] [facility] [place] ([place]arges) Resuscitation Resuscitation: 13247 Endotracheal Intubation, emergency
--- NOTE | 2024-01-27 11:11 | Discharge Summary ---
Date of Service January 27, 2024 Admission HPI Per Admitting Provider Patient is 73-year-old female with PMH POTS, chronic low BP, chronic pain, chronic right shoulder dislocation, Edenilson-Danlos syndrome, protein C deficiency, history DVT, PE, chronic anticoagulation with warfarin, chronic HFpEF, hypothyroidism, chronic anemia, BRANDIE, PTSD, anxiety, paroxysmal supraventricular tachycardia, obesity, history gastric bypass, and others listed below presented to ER with complaint of bilateral weakness of legs x 4-5 days. Of significance patient was hospitalized 12/30 to 01/04 secondary to mechanical fall while injuring both shoulders, right leg cellulitis treated with IV antibiotics and transition to oral cefdinir and doxycycline at discharge. She was then discharged to rehab. She was at [facility] rehab and completed rehab. She was discharged back home to [facility] and she has been back for 5 days. Since being back she has been having increasing bilateral lower extremity weakness. Today she was going to her PCP hospital f/u today and just to get into car it took 25 minutes. When they got to the office she was to weak to walk. She typically uses a walker at baseline. Last night she was upset and she had some diarrhea which isn't unusual. She had one big bowel movement. She denies recent fall. She c/o some chest pressure last evening when she was upset. This lasted a few seconds and went away. She denies diaphoresis and SOB. She continues to have uncontrolled pain in her bilateral shoulders. She was suppose to get trigger point injections today in them. She has been urinating more frequently but that is not unusual with the torsemide. She denies hematuria, dysuria or increased urgency. She further denies f/c/s, cough, n/v, and abd pain. In ED pt remained hemodynamically stable. Lab work revealed a new JAEL. Admission Exam Per Admitting Provider Physical Exam: Vitals signs as noted above General Appearance: Moderately built, chronic ill appearing, no apparent distress Head: normocephalic, Atraumatic Eyes: normal inspection, EOMI Neck: supple, Trachea midline Respiratory/Chest: Decreased breath sounds, CTA, No accessory muscle use Cardiovascular: S1, S2, + murmur Abdomen/GI:Soft, Non tender, Bowel sounds present Extremities/Musculoskeletal:normal inspection, trace lower extremity edema, chronic venous stasis changes Neurologic/Psych:AAOX3, grossly no focal neurological deficits Skin: normal color, warm Principal Diagnosis Cardiac arrest due to pulseless electrical activity, Epidural hematoma, ESBL E coli UTI Discharge Data Allergies Allergy/AdvReac Type Severity Reaction Status Date / Time ammonia Allergy Severe FACE, Verified 12/19/23 13:59 LIPS, TONGUE EDEMA buspirone Allergy Severe NEURO Verified 12/19/23 13:59 COMPLICATIONS duloxetine Allergy Intermediate RASH Verified 12/19/23 13:59 ITCHING adhesive Allergy Mild skin tears Verified 12/19/23 13:59 vancomycin Allergy Unknown ON [facility] Verified 12/19/23 13:59 MED LIST diphenhydramine AdvReac Intermediate RESTLESS Verified 12/19/23 13:59 LEGS gabapentin AdvReac Intermediate MUSCLE Verified 12/19/23 13:59 STIFFNESS lisinopril AdvReac Intermediate cough Verified 12/19/23 13:59 NSAIDS (Non-Steroidal AdvReac Unknown not Verified 12/19/23 13:59 Anti-Inflamma supposed to use-S/P GASTRIC BYPASS venlafaxine AdvReac Unknown AFFECTS Verified 12/19/23 13:59 LEGS Consultations 01/22/24 11:45 ED Decision to Admit Stat 01/22/24 12:35 Consult Pain Management Routine 01/22/24 15:29 Consult Orthopedic Spine Surgery Routine 01/23/24 12:42 Consult Hematology Routine Ordered Studies 01/22/24 10:55 MRI Lumbar Spine [MR lumbar spine wo con] Stat 01/23/24 renal/blad retro comp Routine 01/26/24 11:33 MRI Spine [MR lumbar spine wo con] Urgent Hospital Course (1) Cardiac arrest with pulseless electrical activity: (2) Nontraumatic epidural hematoma: (3) UTI due to extended-spectrum beta lactamase (ESBL) producing Escherichia coli: (4) Hypokalemia: (5) Hypomagnesemia: (6) Hypophosphatemia: (7) JAEL (acute kidney injury): (8) Paroxysmal atrial fibrillation: (9) Protein C deficiency: (10) Chronic heart failure with preserved ejection fraction (HFpEF): Plan Patient is 73-year-old female with PMH POTS, chronic low BP, chronic pain, chronic right shoulder dislocation, Edenilson-Danlos syndrome, protein C deficiency, history DVT, PE, chronic anticoagulation with warfarin, chronic HFpEF, hypothyroidism, chronic anemia, BRANDIE, PTSD, anxiety, paroxysmal supraventricular tachycardia, obesity, history gastric bypass, and others listed below presented to ER with complaint of bilateral weakness of legs x 4-5 days. MRI lumbar spine showed epidural hematoma. Admitting team discussed with orthopedics and she was given vitamin K to reverse the coumadin. She was seen by ortho who recommended conservative management and holding off on anticoagulation. Her symptoms were stable. Repeat MRI yesterday was stable. Per hematology, once ortho clears she could be started on DVT ppx dose of heparin or lovenox. She was also on ertapenem for ESBL E coli UTI. This morning, patient was at her baseline during my encounter. Her labs and vitals were stable. She was later being assisted by nursing when she became unresponsive and was noted to have PEA. Brennan blue was called and CPR was started. She was intubated during the CPR and IO access was also obtained. However even after more than 20 minutes of CPR with multiple rounds of epi, calcium, bicarb, she could not be revived. She never had a pulse in between. I called her POA Claudette Magallon who okayed to st op CPR. She is going to contact the patient's distant cousin who is her relative. She is going to come visit her in the hospital along with the rivet sticker. pronounced by Dr Middleton at 10:15 am, 01/27/24. Total Time Total Time Spent Total Time Spent (In Minutes): 32 Discharge Plan Discharge Items Patient Disposition: Other Date/Time: 01/27/24 10:15
[2024-01-27] MEDS ORDERED: CALCIUM CHLORIDE 10% 10 ML SYR IV ONE (12:59)
[2024-01-27] MEDS ORDERED: SODIUM BICARB 8.4% INJ 50 MEQ/50 ML SYR IV ONE (12:59)
[2024-01-27] MEDS ORDERED: SODIUM CHLORIDE 0.9% 10ML FLUSH IV ONE (12:59)
[2024-01-27] MEDS ORDERED: EpINEphrine HCL INJ 1 MG/ML 1ML SYRINGE IR ONE (12:59)
[2024-01-29] MEDS ORDERED: ERGOCALCIFEROL 1250 MCG (50,000 UNITS) CAP PO SCH (08:00)
== END 2024-01-27 13:00 | disposition expired | DRG 92 ==
LOC: ED 10:20 → SUATTDRO 11:53 → EDINP 11:53 → 2N 15:35 → 2W 01-26 05:56